=== PATIENT | female | born 1940 | race Caucasian/White ===

== ENCOUNTER → 2016-06-25 | Outpatient (CLI) | payer OTHER ==
[~2016-06-25] MED LIST: ALBINS/ INH; ALBU0.5N2 NEB; ALBUAER INH; AMPH15CA7 PO; AMPH30CA3 PO; APIX1TAB3 PO; ASPI81TA28 PO; ATOR-24 PO; BRIM0.1S OPB; BRIM0.2S18 OPB; CALC-20 PO; CHOL100010 PO; CHOL100027 PO; CLON1TAB3 PO; CYAN250T PO; DEXT30TA7 PO; DLCSR120 PO; DOXY100C2 PO; DSY/150 PO; DXY100 PO; ELQ25 PO; ESCI10TA17 PO; GABA-112 PO; GUAI1TAB55 PO; IPRASOL4 INH; LACTCAP3 PO; LAMO150T32 PO; LVQ750 PO; MAGN1CAP2 PO; MAGN200T3 PO; MAGN400T6 PO; MONT1TAB3 PO; MULT1TAB22 PO; NRN100 PO; OXYC-57 PO; PRAM1TAB47 PO; PRED10TA PO; PRLSR20 PO; SYMIN160 INH; TIOTCAP INH; TRAM-10 PO; TRAV0.00 OPB; TRAZ100T29 PO; VNTHFA/IN INH
== END | disposition home or self-care (01) ==
LOC: C.PATHSPEC 14:28
PROVIDERS: ATTEND Dermatology
DX: D22.5 Melanocytic nevi of trunk (principal)

== ENCOUNTER → 2016-07-09 | Outpatient (CLI) | payer OTHER | END | disposition home or self-care (01) | LOC: C.PATHSPEC 13:46 | PROVIDERS: ATTEND Dermatology | DX: D23.71 Other benign neoplasm of skin of right lower limb, including hip (principal) ==

== ENCOUNTER → 2016-08-26 | Outpatient (CLI) | payer OTHER ==
--- NOTE | 2016-08-26 16:03 | DIAGNOSTIC IMAGING REPORT ---
C-SPINE ROUTINE 4 OR 5 VIEWS CLINICAL HISTORY: Cervicalgia. COMPARISON STUDY: MRI of the cervical spine May 18, 2008. FINDINGS: This exam is compromised by artifact. Alignment is anatomic. No acute fracture is identified. Moderate multilevel degenerative disc disease is noted with severe multilevel facet arthrosis with possible fusion of the facet joints at several levels. Anterior osteophytosis is noted. IMPRESSION: 1. Technically compromised exam. 2. No fracture identified although sensitivity significantly diminished on this exam. 3. Moderate multilevel degenerative disc disease and severe multilevel facet arthrosis of the cervical spine. Electronically signed by: Bull Kim M.D. 08/26/2016 4:01 PM Dictated Date/Time: 08/26/2016 3:58 PM
[2016-08-26 17:03] LABS: MAGNESIUM 1.6 mg/dl (1.8-2.4)
== END | disposition home or self-care (01) ==
LOC: C.LAB1850 14:42
PROVIDERS: ATTEND Family Medicine
DX: M54.2 Cervicalgia (principal); E78.5 Hyperlipidemia, unspecified; E83.42 Hypomagnesemia

== ENCOUNTER 2016-08-28 04:33 | Inpatient (IN) | payer OTHER ==
[2016-08-28] VITALS (8 sets, daily range): BP systolic 93–143; BP diastolic 41–58; PULSE 73–86; TEMP 36.6–37.2; O2SAT 91–95; Ht 165.1 cm; Wt 78.4 kg
[~2016-08-28] VITALS: Ht 165.1 cm; Wt 78.4 kg
[~2016-08-28 04:33] MED LIST changes: -ALBINS/ INH; -APIX1TAB3 PO; -BRIM0.1S OPB; -BRIM0.2S18 OPB; -CHOL100027 PO; -DEXT30TA7 PO; -DSY/150 PO; -DXY100 PO; -GABA-112 PO; -IPRASOL4 INH; -LVQ750 PO; -MAGN1CAP2 PO; -MAGN200T3 PO; -NRN100 PO; -TRAV0.00 OPB; -VNTHFA/IN INH
[2016-08-28] MEDS ORDERED: LORAZEPAM 2 MG/ML 1 ML VIAL IV STA (04:41)
[2016-08-28] MEDS ORDERED: ONDANSETRON INJ 2 MG/ML 2 ML VIAL IV STA (04:41)
[2016-08-28] MEDS ORDERED: SODIUM CHLORIDE 0.9% 1000ML 1,000 ML IV STA (04:41)
[2016-08-28] MEDS ORDERED: ALBUT/IPRATROP 3MG/0.5MG NEB 3 ML VIAL INH STA (04:41)
[2016-08-28 05:01] LABS: VEN BLD GAS O2 SATURATION 90.6 %; VEN BLOOD GAS BASE EXCESS 5.5 mmol/L; VENOUS BLOOD GAS PCO2 38 mmHg (38.0-50.0); VENOUS BLOOD GAS PO2 63 mmHg
[2016-08-28 05:05] LABS: BASO % 0.1 %; BASO ABS # 0.02 K/uL (0-0.2); COMPLETE YES; EOS % 0.7 %; HEMATOCRIT 42.1 % (37-47); IG% 0.5 %; LYMPH % 21.8 %; LYMPH ABS # 3.21 K/uL (1.2-3.4); MEAN CELL VOLUME 86.3 fL (80-100); MEAN CORPUSCULAR HEMOGLOBIN 29.1 pg (25-34); MEAN CORPUSCULAR HGB CONC 33.7 g/dl (32-36); MEAN PLATELET VOLUME 9.4 fL (7.4-10.4); MONO % 8.6 %; NEUT % 68.3 %; PLATELET COUNT 281 K/uL (130-400); RED BLOOD COUNT 4.88 M/uL (4.2-5.4)
[2016-08-28] MEDS ORDERED: SODIUM CHLORIDE 0.9% 500ML 500 ML IV STA (05:08)
[2016-08-28] MEDS ORDERED: HYDROCODONE/HOMATROPINE SYRUP 5MG/1.5MG 5ML UDP PO STA (05:08)
[2016-08-28 05:24] LABS: ALT/SGPT 26 U/L (12-78); AST/SGOT 12 U/L (15-37); BLOOD UREA NITROGEN 15 mg/dl (7-18); BUN/CREATININE RATIO 25.5 (10-20); CALCIUM 9.8 mg/dl (8.5-10.1); CARBON DIOXIDE 33 mmol/L (21-32); CHLORIDE 105 mmol/L (98-107); GLUCOSE 111 mg/dl (70-99); POTASSIUM 2.9 mmol/L (3.5-5.1); SODIUM 146 mmol/L (136-145)
[2016-08-28] MEDS ORDERED: DOXYCYCLINE IV 100 MG in DEXTROSE 5% 100ML 100 ML IV STA (05:27)
[2016-08-28 05:29] LABS: ALKALINE PHOSPHATASE 99 U/L (45-117); CKMB/CK RATIO 8.7 (0-3.0)
[2016-08-28] MEDS ORDERED: AMPH15CA7 PO (05:43)
[2016-08-28] MEDS ORDERED: ALBINS/ INH (05:44)
[2016-08-28] MEDS ORDERED: BRIM0.1S OPB (05:45)
[2016-08-28] MEDS ORDERED: APIX1TAB3 PO (05:50)
[2016-08-28] MEDS ORDERED: GABA-112 PO (05:52)
[2016-08-28] MEDS ORDERED: NRN100 PO (05:52)
[2016-08-28] MEDS ORDERED: IPRASOL4 INH (05:53)
[2016-08-28] MEDS ORDERED: MAGN1CAP2 PO (05:56)
[2016-08-28] MEDS ORDERED: MAGN200T3 PO (05:56)
[2016-08-28] MEDS ORDERED: TRAV0.00 OPB (06:01)
[2016-08-28] MEDS ORDERED: DSY/150 PO (06:01)
--- NOTE | 2016-08-28 06:04 | EMERGENCY ROOM VISIT NOTE ---
History Report prepared by José: Martin Berman Under the Supervision of: Dr. Maico Izquierdo M.D. First contact with patient: 04:36 Chief Complaint: RESPIRATORY PROBLEMS Stated Complaint: BREATHING DIFFICULTY History of Present Illness The patient is a 75 year old female who presents to the Emergency Room by EMS with complaints of worsening shortness of breath beginning six days ago. She has a history of asthma and feels that her asthma is acting up. She was given three nebulizer treatments en route which improved her symptoms. The patient also complains of nausea and coughing. She denies any abdominal pain. Source of History: patient Onset: Six days ago Quality: other (shortness of breath) Timing: worsening Modifying Factors (Relieving): other (nebulizer treatments) Associated Symptoms: + cough, + nausea, No abdominal pain Review of Systems See HPI for pertinent positives & negatives. A total of 10 systems reviewed and were otherwise negative. Past Medical & Surgical Medical Problems: (1) ADD (2) Anxiety (3) Arthroplasty of knee (4) Asthma, Unspecified (5) Chronic venous insufficiency (6) COPD (7) COPD exacerbation (8) Depression (9) Diabetes (10) Elbow surgery (11) Hyperlipidemia (12) Hypothyroidism Nos (13) MRSA (14) Pneumonia (15) Restless legs (16) Rheumatoid arthritis (17) Small bowel obstruction Surgical Problems: (1) Appendectomy (2) Post-operative state Family History FHx: chronic respiratory condition Social History Smoking Status: Former Smoker Marital Status: Housing Status: lives alone Occupation Status: retired Current/Historical Medications Scheduled Amphetamine-Dextroamphetamine 15MG (Adderall Xr 15MG), 15 MG PO DAILY Amphetamine-Dextroamphetamine 30MG (Adderall Xr 30MG), 30 MG PO QAM Apixaban (Eliquis), 5 MG PO BID Aspirin (Aspirin Ec), 81 MG PO DAILY Atorvastatin (Lipitor), 40 MG PO QPM Brimonidine Tartrate (Alphagan P Oph), 1 DROP OPB Q12 Calcium Carbonate-Vitamin D (Calcium 600 + D), 1 TAB PO BID Clonazepam (Klonopin), 1 MG PO HS Cyanocobalamin (Vitamin B-12), 250 MCG PO DAILY Diltiazem HCl (Diltiazem HCl ER), 240 MG PO QAM Doxycycline Hyclate (Vibramycin), 100 MG PO BID Escitalopram (Lexapro), 10 MG PO DAILY Gabapentin (Gabapentin), 200 MG PO BID Gabapentin (Neurontin), 300 MG PO HS Lactobacillus (Acidophilus), 1 CAP PO DAILY Lamotrigine (Lamictal), 150 MG PO HS Magnesium (Magnesium), 200 MG PO Q2D Magnesium Oxide (Mg Supplement (Magnesium), 400 MG PO Q2D Montelukast Sodium (Singulair), 10 MG PO HS Multiple Vitamins W/ Minerals (One Daily For Women), 1 TAB PO DAILY Pramipexole Dihydrochloride (Mirapex), 0.5 MG PO HS Travoprost (Travatan Z), 1 DROP OPB DAILY Trazodone HCl (Trazodone HCl), 150 MG PO HS Trazodone Hcl (Trazodone), 100 MG PO HS Scheduled PRN Albuterol Sulf (Proventil 0.083% 2.5MG/3ML), 2.5 MG INH QID PRN for Wheezing Budesonide/Formoterol Fumarate (Symbicort 160/4.5 Inhaler ), 2 PUFFS INH BID PRN for SOB/Wheezing Ipratropium-Albuterol (Duoneb), 1 TREATMENT INH Q4H PRN for SOB/Wheezing Oxycodone/Acetaminophen 5MG/325MG (Percocet 5MG/325MG), 1 TAB PO BID PRN for Pain Tramadol (Ultram), 50 MG PO Q8H PRN for Pain Allergies Coded Allergies: Chocolate (Verified Allergy, Mild, RASH, 08/12/15) Azithromycin (Verified Allergy, Unknown, THROAT BURNED-LOST WT, 08/12/15) Fluticasone (Verified Allergy, Unknown, FROM ADVAIR, CHEST PAIN, 08/12/15) ALLERGY TO ADVAIR Penicillins (Verified Allergy, Unknown, UNKNOWN-HAS TOLERATED ROCEPHIN IN PAST, 08/12/15) PCN ALLERGY IDENTIFIED FROM ALLERGY TESTING Procaine (Verified Allergy, Unknown, ANAPHYLAXIS/MOUTH SWELLING/SOB, ) Salmeterol (Verified Allergy, Unknown, FROM ADVAIR, CHEST PAIN., 08/12/15) ALLERGY TO ADVAIR Moxifloxacin (Verified Adverse Reaction, Unknown, NAUSEA & VOMITING, ) NSAIDs (Verified Adverse Reaction, Unknown, AVOID DUE TO ULCER HX, 08/12/15 ) Zolpidem (Verified Adverse Reaction, Unknown, SLEEP WALKING, 08/12/15) Physical Exam Vital Signs Date Time Temp Pulse Resp B/P Pulse Ox O2 Delivery O2 Flow Rate FiO2 08/28/16 04:47 88 08/28/16 04:42 Room Air 08/28/16 04:41 Room Air 08/28/16 04:37 37.0 85 16 164/90 94 Room Air Physical Exam GENERAL: Patient is anxious appearing and in moderate distress. Periodic harsh cough noted. HEENT: No acute trauma, normocephalic atraumatic, mucous membranes moist, no nasal congestion, no scleral icterus. NECK: No stridor, no adenopathy, no meningismus, trachea is midline. LUNGS: Diffuse crackles and wheezing in all lung aguilar. HEART: Regular rate and rhythm. No murmurs, rubs, gallops appreciated. ABDOMEN: Soft, nontender, bowel sounds positive, no masses appreciated, no peritonitis. BACK: No midline tenderness, no CVA tenderness EXTREMITIES: Normal motion all extremities, no cyanosis, no edema. NEUROLOGIC: Alert and oriented, no acute motor or sensory deficits, no focal weakness, cranial nerves grossly intact. Fine tremor noted. SKIN: No rash, no jaundice, no diaphoresis. Medical Decision & Procedures ER Provider Diagnostic Interpretation: X ray results are stated below per my interpretation: Chest: 1 view: No infiltrate, no effusion, normal cardiac border. Laboratory Results 08/28/16 04:48 Red Blood Count 4.88, Mean Corpuscular Volume 86.3, Mean Corpuscular Hemoglobin 29.1, Mean Corpuscular Hemoglobin Concent 33.7, Mean Platelet Volume 9.4, Neutrophils (%) (Auto) 68.3, Lymphocytes (%) (Auto) 21.8, Monocytes (%) (Auto) 8.6, Eosinophils (%) (Auto) 0.7, Basophils (%) (Auto) 0.1, Neutrophils # (Auto) 10.03, Lymphocytes # (Auto) 3.21, Monocytes # (Auto) 1.26, Eosinophils # (Auto) 0.11, Basophils # (Auto) 0.02 08/28/16 04:48 Test 08/28/16 04:48 08/28/16 04:51 08/28/16 04:56 White Blood Count 14.70 K/uL (4.8-10.8) Red Blood Count 4.88 M/uL (4.2-5.4) Hemoglobin 14.2 g/dL (12.0-16.0) Hematocrit 42.1 % (37-47) Mean Corpuscular Volume 86.3 fL (80-100) Mean Corpuscular Hemoglobin 29.1 pg (25-34) Mean Corpuscular Hemoglobin Concent 33.7 g/dl (32-36) Platelet Count 281 K/uL (130-400) Mean Platelet Volume 9.4 fL (7.4-10.4) Neutrophils (%) (Auto) 68.3 % Lymphocytes (%) (Auto) 21.8 % Monocytes (%) (Auto) 8.6 % Eosinophils (%) (Auto) 0.7 % Basophils (%) (Auto) 0.1 % Neutrophils # (Auto) 10.03 K/uL (1.4-6.5) Lymphocytes # (Auto) 3.21 K/uL (1.2-3.4) Monocytes # (Auto) 1.26 K/uL (0.11-0.59) Eosinophils # (Auto) 0.11 K/uL (0-0.5) Basophils # (Auto) 0.02 K/uL (0-0.2) RDW Standard Deviation 49.1 fL (36.4-46.3) RDW Coefficient of Variation 15.5 % (11.5-14.5) Immature Granulocyte % (Auto) 0.5 % Immature Granulocyte # (Auto) 0.07 K/uL (0.00-0.02) Anion Gap 8.0 mmol/L (3-11) Est Creatinine Clear Calc Drug Dose 82.4 ml/min Estimated GFR () 102.6 Estimated GFR (Non- 88.5 BUN/Creatinine Ratio 25.5 (10-20) Calcium Level 9.8 mg/dl (8.5-10.1) Total Bilirubin 0.5 mg/dl (0.2-1) Direct Bilirubin 0.1 mg/dl (0-0.2) Aspartate Amino Transf (AST/SGOT) 12 U/L (15-37) Alanine Aminotransferase (ALT/SGPT) 26 U/L (12-78) Alkaline Phosphatase 99 U/L (45-117) Total Creatine Kinase 52 U/L (26-192) Creatine Kinase MB 4.5 ng/ml (0.5-3.6) Creatine Kinase MB Ratio 8.7 (0-3.0) Troponin I < 0.015 ng/ml (0-0.045) Pro-B-Type Natriuretic Peptide 574 pg/ml (0-1800) Total Protein 6.8 gm/dl (6.4-8.2) Albumin 3.7 gm/dl (3.4-5.0) Lipase 118 U/L (73-393) Venous Blood pH 7.50 (7.36-7.41) Venous Blood Partial Pressure CO2 38 mmHg (38.0-50.0) Venous Blood Partial Pressure O2 63 mmHg Venous Blood HCO3 29 mmol/L Venous Blood Oxygen Saturation 90.6 % Venous Blood Base Excess 5.5 mmol/L Bedside Lactic Acid Venous 2.10 mmol/L (0.90-1.70) Laboratory results as reviewed by me. Medications Administered Medications (Trade) Dose Ordered Sig/Cyndy Route Start Time Stop Time Status Last Admin Dose Admin Albuterol/ Ipratropium (Duoneb) 3 ml NOW STAT INH 08/28/16 04:41 08/28/16 04:43 DC 08/28/16 04:51 3 ML Lorazepam (Ativan Inj) 0.5 mg NOW STAT IV 08/28/16 04:41 08/28/16 04:43 DC 08/28/16 04:51 0.5 MG Ondansetron HCl 4 mg 4 mg NOW STAT IV 08/28/16 04:41 08/28/16 04:43 DC 08/28/16 04:51 4 MG Sodium Chloride (Nss 1000ml) 1,000 ml @ 75 mls/hr [id number] STAT IV 08/28/16 04:41 08/28/16 18:00 08/28/16 04:51 75 MLS/HR Hydrocodone Bit/ Homatropine Methylb 5 ml 5 ml NOW STAT PO 08/28/16 05:08 08/28/16 05:09 DC 08/28/16 05:12 5 ML Sodium Chloride 500 ml @ 999 mls/hr Q31M STAT IV 08/28/16 05:08 08/28/16 05:38 DC 08/28/16 05:12 999 MLS/HR Doxycycline Hyclate/Dextrose (Vibramycin IV/ D5 100ml) 110 ml @ 50 mls/hr NOW STAT IV 08/28/16 05:27 08/28/16 07:38 08/28/16 05:54 50 MLS/HR ECG Indication: SOB/dyspnea Rate (beats per minute): 93 Rhythm: normal sinus Findings: no acute ischemic change, no ectopy ED Course 0436: The patient was evaluated in room A10. A complete history and physical exam was performed. 0441: Ordered Sodium Chloride 1000 ml @ 75 mls/hr, Zofran Inj 4 mg IV, Ativan Inj 0.5 mg IV, DuoNeb 3 mL INH. 0508: Ordered Sodium Chloride 500 ml @ 999 mls/hr, Hycodan Syrup 5 mL PO. Medical Decision Differential: Infectious, Reactive Airway Disease, Pneumonia, Pneumothorax, COPD , CHF, ACS, Pulmonary Embolism, MSK, GI, Dissection, amongst other etiologies entertained. 75 yr old female on Prednisone and Clinda for COPD exacerbation over the previous last week. She is ill appearing and lungs are quite poor. Given further neb along with some ativan/zofran for nausea/anxiety. Mild lactic acidosis thus given fluids though she does not appear overtly septic. WBC mildly elevated consistent with steroid use. Symptoms consistent with her COPD rather than PE/dissection/ACS. She is stable but will need to come in to hospital given outpatient failure and severity of her symptoms. Impression Primary Impression: COPD exacerbation Additional Impressions: Failure of outpatient treatment Hypokalemia Scribe Attestation The scribe's documentation has been prepared under my direction and personally reviewed by me in its entirety. I confirm that the note above accurately reflects all work, treatment, procedures, and medical decision making performed by me. Departure Information Referrals Faiza Costa MD (PCP) Patient Instructions My [facility] Problem Qualifiers
[2016-08-28] MEDS ORDERED: CHOL100027 PO (06:05)
[2016-08-28] MEDS ORDERED: VNTHFA/IN INH (06:06)
[2016-08-28] MEDS ORDERED: ACETAMINOPHEN 325 MG TAB PO PRN (06:15)
[2016-08-28] MEDS ORDERED: NITROGLYCERIN 0.4 MG SL PER TAB CHARGE SL PRN (06:15)
[2016-08-28] MEDS ORDERED: POTASSIUM CHLORIDE 10 MEQ TABCR PO STA (06:23)
[2016-08-28] MEDS ORDERED: HYDROCODONE/HOMATROPINE SYRUP 5MG/1.5MG 5ML UDP PO PRN (06:30)
[2016-08-28] MEDS ORDERED: MoRPHine SULFATE 4 MG/ML 1 ML CARP\\VIAL IV PRN (06:30)
[2016-08-28] MEDS ORDERED: ONDANSETRON INJ 2 MG/ML 2 ML VIAL IV PRN (06:30)
[2016-08-28] MEDS ORDERED: MoRPHine SULFATE 2 MG/ML CARP IV PRN (06:30)
[2016-08-28] MEDS ORDERED: DiphenhydrAMINE HCL 50 MG/ML VIAL IV PRN (06:30)
[2016-08-28] MEDS: OXYCODONE/ACETAMINOPHEN 5-325 TAB PO PRN ×3 (06:32→21:26)
--- NOTE | 2016-08-28 07:02 | History and Physical ---
History & Physical Date & Time of Service: Aug 28, 2016 at 06:49 Chief Complaint: Breathing Difficulty Primary Care Physician: Faiza Costa MD History of Present Illness Source: patient The patient is a 75-year-old female who presents emergency department via EMS with complaint of worsening shortness of breath that initially began 6 days ago especially worsened overnight. She has a known history of asthma/COPD, and feels that her symptoms are related to a bronchitis flareup. She did start clindamycin 4 days ago with no overall improvement in symptoms, and she reports issues with significant nasal drainage going down the back of her throat and causing nausea, which is something unusual for her. She has had a number of sick exposures among her family members, who have had the flu and other respiratory illnesses. Past Medical/Surgical History Medical Problems: (1) ADD Status: Chronic (2) Anxiety Status: Chronic (3) Arthroplasty of knee Status: Resolved (4) Asthma, Unspecified Status: Chronic (5) Chronic venous insufficiency Status: Chronic (6) COPD Status: Chronic (7) Depression Status: Chronic (8) Diabetes Status: Chronic (9) Elbow surgery Status: Resolved (10) Hyperlipidemia Status: Chronic (11) Hypothyroidism Nos Status: Chronic (12) MRSA Status: Chronic (13) Pneumonia Status: Chronic (14) Restless legs Status: Chronic (15) Rheumatoid arthritis Status: Chronic (16) Small bowel obstruction Status: Resolved Surgical Problems: (1) Appendectomy Status: Resolved Family History FHx: chronic respiratory condition Social History Smoking Status: Former Smoker Smokeless Tobacco Use: No Alcohol Use: none Drug Use: none Marital Status: Housing status: lives with family Occupational Status: retired Immunizations History of Influenza Vaccine: Yes Influenza Vaccine Date: Apr 08, 2011 History of Tetanus Vaccine?: Yes Tetanus Immunization Date: Oct 31, 2003 History of Pneumococcal: Yes Pneumococcal Date: May 08, 2004 History of Hepatitis B Vaccine: Unknown Multi-Drug Resistant Organisms History of MDRO: Yes Type of MDRO: MRSA Allergies Coded Allergies: Chocolate (Verified Allergy, Mild, RASH, 08/12/15) Azithromycin (Verified Allergy, Unknown, THROAT BURNED-LOST WT, 08/12/15) Fluticasone (Verified Allergy, Unknown, FROM ADVAIR, CHEST PAIN, 08/12/15) ALLERGY TO ADVAIR Penicillins (Verified Allergy, Unknown, UNKNOWN-HAS TOLERATED ROCEPHIN IN PAST, 08/12/15) PCN ALLERGY IDENTIFIED FROM ALLERGY TESTING Procaine (Verified Allergy, Unknown, ANAPHYLAXIS/MOUTH SWELLING/SOB, ) Salmeterol (Verified Allergy, Unknown, FROM ADVAIR, CHEST PAIN., 08/12/15) ALLERGY TO ADVAIR Moxifloxacin (Verified Adverse Reaction, Unknown, NAUSEA & VOMITING, ) NSAIDs (Verified Adverse Reaction, Unknown, AVOID DUE TO ULCER HX, 08/12/15 ) Zolpidem (Verified Adverse Reaction, Unknown, SLEEP WALKING, 08/12/15) Home Medications Scheduled Amphetamine-Dextroamphetamine 15MG (Adderall Xr 15MG), 15 MG PO DAILY Amphetamine-Dextroamphetamine 30MG (Adderall Xr 30MG), 30 MG PO QAM Apixaban (Eliquis), 5 MG PO BID Aspirin (Aspirin Ec), 81 MG PO DAILY Atorvastatin (Lipitor), 40 MG PO QPM Brimonidine Tartrate (Alphagan P Oph), 1 DROP OPB Q12 Calcium Carbonate-Vitamin D (Calcium 600 + D), 1 TAB PO BID Cholecalciferol (Vitamin D 1000 Unit), 1,000 INTER.UNIT PO DAILY Clonazepam (Klonopin), 1 MG PO HS Cyanocobalamin (Vitamin B-12), 250 MCG PO DAILY Diltiazem HCl (Diltiazem HCl ER), 240 MG PO QAM Doxycycline Hyclate (Vibramycin), 100 MG PO BID Escitalopram (Lexapro), 10 MG PO DAILY Gabapentin (Gabapentin), 200 MG PO BID Gabapentin (Neurontin), 300 MG PO HS Lactobacillus (Acidophilus), 1 CAP PO DAILY Lamotrigine (Lamictal), 150 MG PO HS Magnesium (Magnesium), 200 MG PO Q2D Magnesium Oxide (Mg Supplement (Magnesium), 400 MG PO Q2D Montelukast Sodium (Singulair), 10 MG PO HS Multiple Vitamins W/ Minerals (One Daily For Women), 1 TAB PO DAILY Omeprazole (Prilosec), 20 MG PO BID Pramipexole Dihydrochloride (Mirapex), 0.5 MG PO HS Prednisone (Prednisone), MG PO UD Travoprost (Travatan Z), 1 DROP OPB DAILY Trazodone HCl (Trazodone HCl), 150 MG PO HS Scheduled PRN Albuterol Hfa (Ventolin Hfa), 1-2 PUFFS INH Q4-6HRS PRN for SOB/Wheezing Albuterol Sulf (Proventil 0.083% 2.5MG/3ML), 2.5 MG INH QID PRN for Wheezing Budesonide/Formoterol Fumarate (Symbicort 160/4.5 Inhaler ), 2 PUFFS INH BID PRN for SOB/Wheezing Ipratropium-Albuterol (Duoneb), 1 TREATMENT INH Q4H PRN for SOB/Wheezing Oxycodone/Acetaminophen 5MG/325MG (Percocet 5MG/325MG), 1 TAB PO BID PRN for Pain Review of Systems The patient denies palpitations, lower extremity swelling, vision change, hearing change, fevers, chills, sweats, weight change, vomiting, abdominal pain , pelvic pain, blood in urine or stool, dysuria, urinary frequency or urgency, lightheadedness, dizziness, headache, memory loss, rash, abnormal bruising or bleeding, imbalance, focal or generalized weakness, numbness or tingling in arms or legs, arthralgias or myalgias, back or neck pain, night sweats. The review of systems is otherwise negative other than for that already noted above, and at least 10 systems have been reviewed. Physical Exam Vital Signs Date Time Temp Pulse Resp B/P Pulse Ox O2 Delivery O2 Flow Rate FiO2 08/28/16 04:47 88 08/28/16 04:42 Room Air 08/28/16 04:41 Room Air 08/28/16 04:37 37.0 85 16 164/90 94 Room Air The patient is awake, well-developed and adequately nourished, alert and oriented 3, normocephalic and atraumatic, lying in bed and only in acute distress when she has severe paroxysmal coughing. HEENT--PERRL, EOMI, mucous membranes and oropharynx with thrush. Neck--supple, no JVD or bruits, thyroid normal, trachea midline, no adenopathy. Heart--normal S1 and S2, no extra beats, no murmurs, rubs or gallops. Lungs--coarse breath sounds bilaterally with scattered wheezes, no respiratory distress at rest, no accessory muscle use. Abdomen--normal bowel sounds and soft, nontender and nondistended, no hernias or masses, no organomegaly. Extremities--no cyanosis, clubbing or edema. There are good distal pulses b/l. Dermatologic--normal skin turgor, normal color, warm and dry, no abnormal lymph nodes, no rash. Neurologic--cranial nerves II through XII grossly intact, motor and sensory examination normal. Rheumatologic--normal range of motion, nontender, muscles and joints. Psychiatric--normal affect. Diagnostics Laboratory Results Results Past 24 Hours Test 08/28/16 04:48 08/28/16 04:51 08/28/16 04:56 08/28/16 06:45 Range/Units White Blood Count 14.70 4.8-10.8 K/uL Red Blood Count 4.88 4.2-5.4 M/uL Hemoglobin 14.2 12.0-16.0 g/dL Hematocrit 42.1 37-47 % Mean Corpuscular Volume 86.3 80-100 fL Mean Corpuscular Hemoglobin 29.1 25-34 pg Mean Corpuscular Hemoglobin Concent 33.7 32-36 g/dl Platelet Count 281 130-400 K/uL Mean Platelet Volume 9.4 7.4-10.4 fL Neutrophils (%) (Auto) 68.3 % Lymphocytes (%) (Auto) 21.8 % Monocytes (%) (Auto) 8.6 % Eosinophils (%) (Auto) 0.7 % Basophils (%) (Auto) 0.1 % Neutrophils # (Auto) 10.03 1.4-6.5 K/uL Lymphocytes # (Auto) 3.21 1.2-3.4 K/uL Monocytes # (Auto) 1.26 0.11-0.59 K/uL Eosinophils # (Auto) 0.11 0-0.5 K/uL Basophils # (Auto) 0.02 0-0.2 K/uL RDW Standard Deviation 49.1 36.4-46.3 fL RDW Coefficient of Variation 15.5 11.5-14.5 % Immature Granulocyte % (Auto) 0.5 % Immature Granulocyte # (Auto) 0.07 0.00-0.02 K/uL Sodium Level 146 136-145 mmol/L Potassium Level 2.9 3.5-5.1 mmol/L Chloride Level 105 98-107 mmol/L Carbon Dioxide Level 33 21-32 mmol/L Anion Gap 8.0 3-11 mmol/L Blood Urea Nitrogen 15 7-18 mg/dl Creatinine 0.60 0.60-1.20 mg/dl Est Creatinine Clear Calc Drug Dose 82.4 ml/min Estimated GFR () 102.6 Estimated GFR (Non- 88.5 BUN/Creatinine Ratio 25.5 10-20 Random Glucose 111 70-99 mg/dl Calcium Level 9.8 8.5-10.1 mg/dl Total Bilirubin 0.5 0.2-1 mg/dl Direct Bilirubin 0.1 0-0.2 mg/dl Aspartate Amino Transf (AST/SGOT) 12 15-37 U/L Alanine Aminotransferase (ALT/SGPT) 26 12-78 U/L Alkaline Phosphatase 99 45-117 U/L Total Creatine Kinase 52 26-192 U/L Creatine Kinase MB 4.5 0.5-3.6 ng/ml Creatine Kinase MB Ratio 8.7 0-3.0 Troponin I < 0.015 0-0.045 ng/ml Pro-B-Type Natriuretic Peptide 574 0-1800 pg/ml Total Protein 6.8 6.4-8.2 gm/dl Albumin 3.7 3.4-5.0 gm/dl Lipase 118 73-393 U/L Venous Blood pH 7.50 7.36-7.41 Venous Blood Partial Pressure CO2 38 38.0-50.0 mmHg Venous Blood Partial Pressure O2 63 mmHg Venous Blood HCO3 29 mmol/L Venous Blood Oxygen Saturation 90.6 % Venous Blood Base Excess 5.5 mmol/L Bedside Lactic Acid Venous 2.10 0.90-1.70 mmol/L Microbiology Results 08/28/16 Blood Culture, Received Pending 08/28/16 Blood Culture, Received Pending Impression Assessment and Plan Asthma/COPD exacerbation with acute bronchitis--the patient will be admitted to the telemetry unit for close respiratory/oxygen monitoring. We'll place her on Solu-Medrol 60 mg IV every 6 hours, doxycycline 100 mg IV every 12 hours, Xopenex with Atrovent nebulizer to use every 6 hours while awake and every 2 hours when necessary, Hycodan syrup 1-2 teaspoons by mouth every 6 hours when necessary cough, and nasal cannula 2 L of oxygen titrated to keep pulse ox greater than or equal to 92%. Continue inhaler 10 mg by mouth at bedtime. Increase lactobacillus to 4 capsules by mouth 4 times a day. Atrial fibrillation/hypertension/ hypokalemia--continue Eliquis 5 mg by mouth twice a day, enteric-coated aspirin 81 mg by mouth daily, diltiazem ER 240 mg by mouth every morning, mag oxide 40 mg by mouth daily. Potassium chloride 40 mEq by mouth now, repeat in 5 hours, and then placed on twice a day. Diabetes mellitus--has been diet-controlled. Place on Accu-Cheks before meals and at bedtime with NovoLog coverage. Follow closely while she is on IV steroids. Thrush--placed on Mycelex troches dissolve in mouth 5 times per day for 5 days. ADD--continue Adderall XR 30 mg by mouth every morning and 15 mg by mouth daily. Hypercholesterolemia--continue atorvastatin 40 mg by mouth every afternoon. Peripheral neuropathy--continue gabapentin 200 mg by mouth twice a day 300 mg by mouth at bedtime. Anxiety--continue clonazepam 1 mg by mouth at bedtime, Lexapro 10 mg by mouth daily, lamotrigine 150 mg by mouth at bedtime, trazodone 150 mg by mouth at bedtime. Restless leg syndrome--continue pramipexole 0.5 mg by mouth at bedtime. Glaucoma--continue Alphagan P ophthalmic solution and Travatan Z ophthalmic solution as per outpatient. Vitamin B12 deficiency--continue supplementation of 250 g by mouth daily. Level of Care Telemetry Advanced Directives Existing Advance Directive: No Existing Living Will: No Existing Power of Foreman Or Supervisor And Operator: No Resuscitation Status FULL RESUSCITATION VTE Prophylaxis VTE Risk Assessment Done? Y/N: Yes Risk Level: Moderate Given or contraindicated: Other Anticoagulation (Eliquis) Social Service Consult None Apply
[2016-08-28] MEDS ORDERED: GLUCOSE 40% GEL 15 GM TUBE PO PRN (07:15)
[2016-08-28] MEDS ORDERED: GLUCOSE 10 TABS/TUBE PO PRN (07:15)
[2016-08-28] MEDS ORDERED: GLUCAGON FOR INJ 1 MG VIAL SQ PRN (07:15)
[2016-08-28] MEDS ORDERED: DEXTROSE 50% 50 ML SYR IV PRN (07:15)
--- NOTE | 2016-08-28 07:51 | DIAGNOSTIC IMAGING REPORT ---
SINGLE VIEW CHEST CLINICAL HISTORY: Atypical chest pain. FINDINGS: An AP, portable, upright chest radiograph is compared to study dated 08/17/2015 and correlated with chest CT dated 08/06/2013. The examination is degraded by portable technique and patient rotation. The cardiomediastinal silhouette is unremarkable. There is atherosclerotic calcification of the thoracic aorta. A clip projects over the right lung base. Chronic interstitial thickening is similar to previous. There are bibasilar airspace opacities. The lungs are otherwise clear. No large pleural effusion or pneumothorax is seen. The skeletal structures are osteopenic. The bony thorax is grossly intact. Degenerative change is noted throughout the thoracic spine. IMPRESSION: There are bibasilar airspace opacities which likely represent atelectasis. Clinical correlation will be required. Electronically signed by: Sin Morales M.D. 08/28/2016 7:48 AM Dictated Date/Time: 08/28/2016 7:47 AM
[2016-08-28] MEDS ORDERED: [UNRECOGNIZED DRUG - REMARK] SCH (08:30)
[2016-08-28] MEDS ORDERED: LEVALBUTEROL/IPRATROPIUM NEB INH SCH (09:00)
[2016-08-28] MEDS: ASPIRIN 81 MG ECTAB PO SCH (10:04)
[2016-08-28] MEDS: GABAPENTIN 100 MG CAP PO SCH ×2 (10:05→13:07)
[2016-08-28] MEDS: APIXABAN 2.5 MG TAB PO SCH ×2 (10:05→21:11)
[2016-08-28] MEDS: LACTOBACILLUS ACIDOPHILUS (FLORANEX) TAB PO SCH ×3 (10:07→17:13)
[2016-08-28] MEDS: METHYLPREDNISOLONE IV 60 MG in SYRINGE 0 ML IV SCH ×3 (10:07→21:13)
[2016-08-28] MEDS: CEROVITE ADV FORMULA TAB PO SCH ×2 (10:08→21:11)
[2016-08-28] MEDS: CLOTRIMAZOLE 10 MG TROCHE MT SCH ×4 (10:08→21:12)
[2016-08-28] MEDS: CHOLECALCIFEROL 1000 INTER.UNIT TAB PO SCH (10:08)
[2016-08-28] MEDS: ESCITALOPRAM OXALATE 10 MG TAB PO SCH (10:08)
[2016-08-28] MEDS: CALCIUM 600MG + VIT D 400 IU TAB PO SCH ×2 (10:08→21:14)
[2016-08-28] MEDS: MAGNESIUM OXIDE 400 MG TAB PO SCH (10:09)
[2016-08-28] MEDS: CYANOCOBALAMIN 500 MCG TAB (VIT B-12) PO SCH (10:09)
[2016-08-28] MEDS: DILTIAZEM HCL 120 MG ER CAP PO SCH (10:10)
[2016-08-28] MEDS: PANTOprazole SOD 40 MG TAB PO SCH ×2 (10:10→21:11)
[2016-08-28] MEDS: BRIMONIDINE TARTRATE-P 0.15% 5 ML BTL OPB SCH ×2 (10:10→21:13)
[2016-08-28] MEDS: TRAVOPROST Z 0.004% OPH SOLN 2.5 ML BTL OPB SCH (10:11)
[2016-08-28] MEDS ORDERED: POTASSIUM CHLORIDE 20 MEQ TABCR PO ONE (11:00)
[2016-08-28] MEDS: INSULIN ASPART 100 UNITS/ML 3 ML PEN SC SCH ×3 (11:34→21:21)
[2016-08-28] MEDS: IPRATROPIUM BROMIDE NEB SOLN 0.02% 2.5 ML VIAL INH SCH ×3 (13:06→19:59)
[2016-08-28] MEDS: LEVALBUTEROL 1.25MG/0.5ML NEB INH SCH ×3 (13:06→19:59)
[2016-08-28] MEDS: DOXYCYCLINE IV 100 MG in DEXTROSE 5% 100ML 100 ML IV SCH (17:13)
[2016-08-28] MEDS: POTASSIUM CHLORIDE 20 MEQ TABCR PO SCH ×2 (17:13→21:10)
[2016-08-28] MEDS: GABAPENTIN 300 MG CAP PO SCH (21:11)
[2016-08-28] MEDS: PRAMIPEXOLE DIHYDROCHLORIDE 0.5 MG TAB PO SCH (21:11)
[2016-08-28] MEDS: MONTELUKAST SOD 10 MG TAB PO SCH (21:11)
[2016-08-28] MEDS: ATORVASTATIN 40 MG TAB PO SCH (21:11)
[2016-08-28] MEDS: TRAZODONE HCL 100 MG TAB PO SCH (21:12)
[2016-08-28] MEDS: CLONAZEPAM 1 MG TAB PO SCH (21:13)
[2016-08-29] VITALS (11 sets, daily range): BP systolic 123–130; BP diastolic 55–75; PULSE 63–92; TEMP 36.7–37.2; O2SAT 90–95
[2016-08-29] MEDS: CLOTRIMAZOLE 10 MG TROCHE MT SCH ×6 (00:28→22:38)
[2016-08-29] MEDS: IPRATROPIUM BROMIDE NEB SOLN 0.02% 2.5 ML VIAL INH SCH ×4 (01:52→19:24)
[2016-08-29] MEDS: LEVALBUTEROL 1.25MG/0.5ML NEB INH SCH ×4 (01:52→19:24)
[2016-08-29] MEDS: METHYLPREDNISOLONE IV 60 MG in SYRINGE 0 ML IV SCH ×4 (02:03→22:35)
[2016-08-29 06:10] LABS: BASO ABS # 0.01 K/uL (0-0.2); COMPLETE YES; HEMATOCRIT 36.2 % (37-47); IG% 0.5 %; LYMPH % 8.2 %; LYMPH ABS # 1.71 K/uL (1.2-3.4); MEAN CELL VOLUME 88.5 fL (80-100); MEAN CORPUSCULAR HEMOGLOBIN 29.3 pg (25-34); MEAN CORPUSCULAR HGB CONC 33.1 g/dl (32-36); MEAN PLATELET VOLUME 9.4 fL (7.4-10.4); MONO % 3.2 %; NEUT % 88.1 %; PLATELET COUNT 210 K/uL (130-400); RED BLOOD COUNT 4.09 M/uL (4.2-5.4); WHITE BLOOD COUNT 20.92 K/uL (4.8-10.8)
[2016-08-29] MEDS: DOXYCYCLINE IV 100 MG in DEXTROSE 5% 100ML 100 ML IV SCH (06:25)
[2016-08-29] MEDS: INSULIN ASPART 100 UNITS/ML 3 ML PEN SC SCH ×4 (06:45→21:25)
[2016-08-29 07:53] LABS: BUN/CREATININE RATIO 40.5 (10-20); CALCIUM 9.7 mg/dl (8.5-10.1); CREATININE 0.71 mg/dl (0.60-1.20); POTASSIUM 4.8 mmol/L (3.5-5.1)
[2016-08-29] MEDS ORDERED: AMPHETAMINE-DEXTROAMPHETAMINE 30 MG CAP PO SCH (08:00)
[2016-08-29] MEDS: AMPHETAMINE-DEXTROAMPHETAMINE 30 MG CAP PO SCH ×2 (08:00→08:17)
[2016-08-29] MEDS: TRAVOPROST Z 0.004% OPH SOLN 2.5 ML BTL OPB SCH (08:02)
[2016-08-29] MEDS: GABAPENTIN 100 MG CAP PO SCH ×2 (08:02→12:19)
[2016-08-29] MEDS: BRIMONIDINE TARTRATE-P 0.15% 5 ML BTL OPB SCH ×2 (08:02→21:18)
[2016-08-29] MEDS: MAGNESIUM OXIDE 400 MG TAB PO SCH (08:03)
[2016-08-29] MEDS: PANTOprazole SOD 40 MG TAB PO SCH ×2 (08:03→21:17)
[2016-08-29] MEDS: APIXABAN 2.5 MG TAB PO SCH ×2 (08:03→21:15)
[2016-08-29] MEDS: ASPIRIN 81 MG ECTAB PO SCH (08:03)
[2016-08-29] MEDS: DILTIAZEM HCL 120 MG ER CAP PO SCH (08:04)
[2016-08-29] MEDS: POTASSIUM CHLORIDE 20 MEQ TABCR PO SCH ×2 (08:04→21:16)
[2016-08-29] MEDS: CHOLECALCIFEROL 1000 INTER.UNIT TAB PO SCH (08:04)
[2016-08-29] MEDS: CALCIUM 600MG + VIT D 400 IU TAB PO SCH ×2 (08:05→21:14)
[2016-08-29] MEDS: LACTOBACILLUS ACIDOPHILUS (FLORANEX) TAB PO SCH ×3 (08:05→17:33)
[2016-08-29] MEDS: CYANOCOBALAMIN 500 MCG TAB (VIT B-12) PO SCH (08:05)
[2016-08-29] MEDS: ESCITALOPRAM OXALATE 10 MG TAB PO SCH (08:05)
[2016-08-29] MEDS: OXYCODONE/ACETAMINOPHEN 5-325 TAB PO PRN (08:18)
--- NOTE | 2016-08-29 08:42 | Clinical Documentation Query ---
CLINICAL DOCUMENTATION QUERY 75 year old female who presents to the Emergency Room by EMS with complaints of worsening shortness of breath. Patient is noted to have a copious post nasal drip and note to have acute distress with severe paroxysmal coughing. In your clinical opinion is this patient being managed for: ( ) Aspiration Bronchitis in setting of copious post nasal drip causing severe cough and respiratory distress. ( ) Other explanation of clinical findings (Please Explain) ( ) Unable to determine (Please Define) ( ) Need to Discuss ( ) Not Agree The medical record reflects the following clinical findings, treatment, and risk factors. Clinical Indicators: As above. CXR shows bibasilar airspace opacities. WBC 14.70 and elevated serum Lactic acid 2.80. Treatment: IV Doxycycline, IV Solumedrol, Duonebs, Hycodan syrup, Risk Factors: Age, post nasal drip, COPD, and hx of pneumonia. Please clarify and document your clinical opinion in the progress notes and discharge summary. Terms such as "probable", "suspected", "likely", "questionable", "possible", or "still to be ruled out" are acceptable. IF IN AGREEMENT, YOU MUST DOCUMENT ABOVE DIAGNOSTIC STATEMENT IN DAILY PROGRESS NOTES AND DISCHARGE SUMMARY. This document is not part of the patient's record. Thank You, Benjamin Young, ROBERT [phone]
[2016-08-29] MEDS ORDERED: NURSING VERBAL MED ORDER ONE (13:15)
[2016-08-29] MEDS ORDERED: OXYCODONE/ACETAMINOPHEN 5-325 TAB PO PRN (13:30)
[2016-08-29] MEDS ORDERED: DEXTROAMPHETAMINE PO SCH (14:00)
[2016-08-29] MEDS ORDERED: AMPHETAMINE PO SCH (14:00)
[2016-08-29] MEDS: AMPHETAMINE PO SCH (14:08)
[2016-08-29] MEDS: DEXTROAMPHETAMINE PO SCH (14:08)
--- NOTE | 2016-08-29 15:21 | Hospitalist Progress Note ---
Hospitalist Progress Note Date of Service Aug 29, 2016. Subjective Pt evaluation today including: conversation w/ patient Patient had no acute issues overnight States her SOB is greatly improved from day prior Constitutional: No fever Eyes: No worsening of vision ENT: No hearing loss Respiratory: No cough Cardiovascular: No chest pain, No orthopnea Abdomen: No nausea, No pain, No vomiting Musculoskeletal: No joint pain Female : No dysuria Neurologic: No memory loss Psychiatric: No depression symptoms Objective Vital Signs Date Time Temp Pulse Resp B/P Pulse Ox O2 Delivery O2 Flow Rate FiO2 08/29/16 14:29 81 16 93 Room Air 08/29/16 11:30 Room Air 08/29/16 11:00 37.0 89 24 123/67 91 Room Air 08/29/16 10:55 36.7 92 18 94 08/29/16 08:23 36.7 92 18 125/55 94 Room Air 08/29/16 08:00 Room Air 08/29/16 07:20 73 16 91 Room Air 08/29/16 04:00 91 Room Air 08/29/16 04:00 36.7 63 22 125/56 91 Room Air 08/29/16 01:52 69 16 90 Room Air 08/28/16 23:59 91 Room Air 08/28/16 23:59 36.6 73 26 101/41 91 Room Air 08/28/16 20:03 78 18 92 Room Air 08/28/16 20:00 Room Air 08/28/16 16:00 Room Air 08/28/16 15:48 37.1 74 20 93/45 91 Room Air Physical Exam General Appearance: WD/WN, no apparent distress Eyes: normal inspection ENT: normal ENT inspection Neck: supple Respiratory/Chest: chest non-tender, + wheezing Cardiovascular: regular rate, rhythm, no edema Abdomen: normal bowel sounds, non tender, soft Extremities: normal range of motion, non-tender 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, no motor/sensory deficits, alert, oriented x 3 Skin: normal color, warm/dry, no rash Lymphatic: no adenopathy Laboratory Results Last 24 Hours Test 08/28/16 16:00 08/28/16 20:07 08/29/16 05:45 08/29/16 06:40 Bedside Glucose 147 mg/dl 213 mg/dl 144 mg/dl White Blood Count 20.92 K/uL Red Blood Count 4.09 M/uL Hemoglobin 12.0 g/dL Hematocrit 36.2 % Mean Corpuscular Volume 88.5 fL Mean Corpuscular Hemoglobin 29.3 pg Mean Corpuscular Hemoglobin Concent 33.1 g/dl Platelet Count 210 K/uL Mean Platelet Volume 9.4 fL Neutrophils (%) (Auto) 88.1 % Lymphocytes (%) (Auto) 8.2 % Monocytes (%) (Auto) 3.2 % Eosinophils (%) (Auto) 0.0 % Basophils (%) (Auto) 0.0 % Neutrophils # (Auto) 18.44 K/uL Lymphocytes # (Auto) 1.71 K/uL Monocytes # (Auto) 0.66 K/uL Eosinophils # (Auto) 0.00 K/uL Basophils # (Auto) 0.01 K/uL RDW Standard Deviation 51.7 fL RDW Coefficient of Variation 16.0 % Immature Granulocyte % (Auto) 0.5 % Immature Granulocyte # (Auto) 0.10 K/uL Sodium Level 146 mmol/L Potassium Level 4.8 mmol/L Chloride Level 109 mmol/L Carbon Dioxide Level 30 mmol/L Anion Gap 7.0 mmol/L Blood Urea Nitrogen 29 mg/dl Creatinine 0.71 mg/dl Est Creatinine Clear Calc Drug Dose 68.5 ml/min Estimated GFR () 95.9 Estimated GFR (Non- 82.7 BUN/Creatinine Ratio 40.5 Random Glucose 152 mg/dl Calcium Level 9.7 mg/dl Magnesium Level 2.0 mg/dl Test 08/29/16 11:28 Bedside Glucose 118 mg/dl Assessment and Plan Asthma/COPD exacerbation with acute bronchitis - continue solumedrol /switch to q 8 hours -continue atrovent and xopinex - switch doxycycline to azithromycin day #2 Atrial fibrillation -continue Eliquis 5 mg by mouth twice a day - continue metoprolol HTN - continue diltiazem Diabetes mellitus -continue Accu-Cheks before meals and at bedtime with NovoLog coverage. Thrush -Mycelex troches dissolve in mouth 5 times per day day #1/ ADD -continue Adderall XR 30 mg by mouth every morning and 15 mg by mouth daily. Hypercholesterolemia -continue atorvastatin 40 mg by mouth every afternoon. Peripheral neuropathy -continue gabapentin 200 mg by mouth twice a day 300 mg by mouth at bedtime. Anxiety -continue clonazepam 1 mg by mouth at bedtime, Lexapro 10 mg by mouth daily, lamotrigine 150 mg by mouth at bedtime, trazodone 150 mg by mouth at bedtime. Restless leg syndrome -continue pramipexole 0.5 mg by mouth at bedtime.
[2016-08-29] MEDS ORDERED: LEVOFLOXACIN 750 MG TAB PO SCH (16:00)
[2016-08-29] MEDS: TRAZODONE HCL 100 MG TAB PO SCH (21:18)
[2016-08-29] MEDS: ATORVASTATIN 40 MG TAB PO SCH (21:20)
[2016-08-29] MEDS: PRAMIPEXOLE DIHYDROCHLORIDE 0.5 MG TAB PO SCH (21:20)
[2016-08-29] MEDS: GABAPENTIN 300 MG CAP PO SCH (21:21)
[2016-08-29] MEDS: MONTELUKAST SOD 10 MG TAB PO SCH (21:21)
[2016-08-29] MEDS: CLONAZEPAM 1 MG TAB PO SCH (21:28)
[2016-08-30] VITALS (10 sets, daily range): BP systolic 106–156; BP diastolic 52–81; PULSE 72–95; TEMP 36.5–37; O2SAT 90–96
[2016-08-30] MEDS: IPRATROPIUM BROMIDE NEB SOLN 0.02% 2.5 ML VIAL INH SCH ×4 (01:48→19:10)
[2016-08-30] MEDS: LEVALBUTEROL 1.25MG/0.5ML NEB INH SCH ×4 (01:48→19:10)
[2016-08-30] MEDS: METHYLPREDNISOLONE IV 60 MG in SYRINGE 0 ML IV SCH ×3 (05:40→22:08)
[2016-08-30 07:18] LABS: HEMATOCRIT 37.3 % (37-47); MEAN CELL VOLUME 89.7 fL (80-100); MEAN CORPUSCULAR HEMOGLOBIN 29.1 pg (25-34); MEAN CORPUSCULAR HGB CONC 32.4 g/dl (32-36); MEAN PLATELET VOLUME 9.4 fL (7.4-10.4); PLATELET COUNT 230 K/uL (130-400); RED BLOOD COUNT 4.16 M/uL (4.2-5.4); WHITE BLOOD COUNT 22.56 K/uL (4.8-10.8)
[2016-08-30 07:39] LABS: COMPLETE YES; LYMPH ABS # 1.38 K/uL (1.2-3.4); LYMPHOCYTE % 6.1 %; MYELOCYTE % 0.9 %; NEUTROPHILS % 92.1 %
[2016-08-30 07:45] LABS: BUN/CREATININE RATIO 33.8 (10-20); CALCIUM 9.7 mg/dl (8.5-10.1); CREATININE 0.81 mg/dl (0.60-1.20); MAGNESIUM 1.9 mg/dl (1.8-2.4); POTASSIUM 4.7 mmol/L (3.5-5.1)
[2016-08-30] MEDS: AMPHETAMINE-DEXTROAMPHETAMINE 30 MG CAP PO SCH ×2 (08:00→09:22)
[2016-08-30] MEDS ORDERED: NURSING VERBAL MED ORDER ONE ×3 (08:30→13:45)
[2016-08-30] MEDS: INSULIN ASPART 100 UNITS/ML 3 ML PEN SC SCH ×4 (09:15→22:33)
[2016-08-30] MEDS: CLOTRIMAZOLE 10 MG TROCHE MT SCH ×5 (09:18→22:09)
[2016-08-30] MEDS: TRAVOPROST Z 0.004% OPH SOLN 2.5 ML BTL OPB SCH (09:18)
[2016-08-30] MEDS: BRIMONIDINE TARTRATE-P 0.15% 5 ML BTL OPB SCH ×2 (09:19→22:08)
[2016-08-30] MEDS: CEROVITE ADV FORMULA TAB PO SCH (09:19)
[2016-08-30] MEDS: POTASSIUM CHLORIDE 20 MEQ TABCR PO SCH ×2 (09:20→19:34)
[2016-08-30] MEDS: LACTOBACILLUS ACIDOPHILUS (FLORANEX) TAB PO SCH ×3 (09:20→17:41)
[2016-08-30] MEDS: ASPIRIN 81 MG ECTAB PO SCH (09:21)
[2016-08-30] MEDS: APIXABAN 2.5 MG TAB PO SCH ×2 (09:21→19:34)
[2016-08-30] MEDS: CALCIUM 600MG + VIT D 400 IU TAB PO SCH ×2 (09:22→19:31)
[2016-08-30] MEDS: DILTIAZEM HCL 120 MG ER CAP PO SCH (09:22)
[2016-08-30] MEDS: PANTOprazole SOD 40 MG TAB PO SCH ×2 (09:23→19:33)
[2016-08-30] MEDS: MAGNESIUM OXIDE 400 MG TAB PO SCH (09:23)
[2016-08-30] MEDS: CYANOCOBALAMIN 500 MCG TAB (VIT B-12) PO SCH (09:24)
[2016-08-30] MEDS: CHOLECALCIFEROL 1000 INTER.UNIT TAB PO SCH (09:24)
[2016-08-30] MEDS: ESCITALOPRAM OXALATE 10 MG TAB PO SCH (09:25)
[2016-08-30] MEDS: GABAPENTIN 100 MG CAP PO SCH ×2 (09:25→11:40)
[2016-08-30] MEDS ORDERED: LEVAQUIN 750MG / 150ML D5W IV ONE (09:30)
[2016-08-30] MEDS: LEVOFLOXACIN / D5W 750 MG in PREMIXED IN D5W 150 ML IV SCH (11:38)
[2016-08-30] MEDS: AMPHETAMINE PO SCH (13:47)
[2016-08-30] MEDS: DEXTROAMPHETAMINE PO SCH (13:47)
[2016-08-30] MEDS: HYDROCODONE/HOMATROPINE SYRUP 5MG/1.5MG 5ML UDP PO PRN (13:48)
--- NOTE | 2016-08-30 14:43 | Hospitalist Progress Note ---
Hospitalist Progress Note Date of Service Aug 30, 2016. Subjective Pt evaluation today including: conversation w/ patient Patient had no acute issues overnight Patient states she is more congested today and c/o of gernal malaise States SOB is better however Patient denies any chest pain, nausea or vomiting Constitutional: No fever Eyes: No worsening of vision ENT: + nasal symptoms, No hearing loss Respiratory: + shortness of breath, No cough Cardiovascular: No chest pain Abdomen: No constipation, No pain, No vomiting Musculoskeletal: No joint pain Female : No dysuria Neurologic: No memory loss Psychiatric: No depression symptoms Endo: No fatigue Objective Vital Signs Date Time Temp Pulse Resp B/P Pulse Ox O2 Delivery O2 Flow Rate FiO2 08/30/16 11:21 37.0 83 16 106/63 90 Room Air 08/30/16 09:07 36.5 95 18 136/72 93 08/30/16 07:50 Room Air 08/30/16 07:50 85 16 93 Room Air 08/30/16 04:32 36.6 84 18 112/52 92 Room Air 08/30/16 01:48 74 16 93 Room Air 08/30/16 00:00 Room Air 08/29/16 23:58 36.8 79 20 130/75 95 Room Air 08/29/16 19:47 37.2 80 18 130/67 93 Room Air 08/29/16 19:24 80 16 93 Room Air 08/29/16 16:00 Room Air 08/29/16 15:40 37.2 75 20 126/66 91 Room Air Physical Exam General Appearance: WD/WN, no apparent distress Eyes: normal inspection ENT: normal ENT inspection Neck: supple Respiratory/Chest: chest non-tender, + crackles, + rales, + rhonchi Cardiovascular: regular rate, rhythm, no edema Abdomen: normal bowel sounds, non tender, soft Extremities: normal range of motion, non-tender 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, no motor/sensory deficits, alert, oriented x 3 Laboratory Results Last 24 Hours Test 08/29/16 16:45 08/29/16 20:00 08/30/16 06:47 08/30/16 08:03 Bedside Glucose 195 mg/dl 128 mg/dl 130 mg/dl White Blood Count 22.56 K/uL Red Blood Count 4.16 M/uL Hemoglobin 12.1 g/dL Hematocrit 37.3 % Mean Corpuscular Volume 89.7 fL Mean Corpuscular Hemoglobin 29.1 pg Mean Corpuscular Hemoglobin Concent 32.4 g/dl Platelet Count 230 K/uL Mean Platelet Volume 9.4 fL RDW Standard Deviation 53.5 fL RDW Coefficient of Variation 16.4 % Neutrophils % (Manual) 92.1 % Lymphocytes % (Manual) 6.1 % Monocytes % (Manual) 0.9 % Myelocytes % 0.9 % Neutrophils # (Manual) 20.78 K/uL Total Absolute Neutrophils 20.78 K/uL Lymphocytes # (Manual) 1.38 K/uL Total Absolute Lymphocytes 1.38 K/uL Monocytes # (Manual) 0.20 K/uL Myelocytes # 0.20 K/uL Red Blood Cell Morphology Unremarkable Sodium Level 141 mmol/L Potassium Level 4.7 mmol/L Chloride Level 105 mmol/L Carbon Dioxide Level 30 mmol/L Anion Gap 6.0 mmol/L Blood Urea Nitrogen 27 mg/dl Creatinine 0.81 mg/dl Est Creatinine Clear Calc Drug Dose 59.1 ml/min Estimated GFR () 81.2 Estimated GFR (Non- 70.1 BUN/Creatinine Ratio 33.8 Random Glucose 148 mg/dl Calcium Level 9.7 mg/dl Magnesium Level 1.9 mg/dl Test 08/30/16 11:49 Bedside Glucose 129 mg/dl Assessment and Plan Asthma/COPD exacerbation with acute bronchitis - continue solumedrol continue to q 8 hours -continue atrovent and xopinex - continue azithromycin day #3 - start levaquin day #1 - start Robitussin Atrial fibrillation -continue Eliquis 5 mg by mouth twice a day - continue metoprolol HTN - continue diltiazem Diabetes mellitus -continue Accu-Cheks before meals and at bedtime with NovoLog coverage. Thrush -Mycelex troches dissolve in mouth 5 times per day day #05/23 ADD -continue Adderall XR 30 mg by mouth every morning and 15 mg by mouth daily. Hypercholesterolemia -continue atorvastatin 40 mg by mouth every afternoon. Peripheral neuropathy -continue gabapentin 200 mg by mouth twice a day 300 mg by mouth at bedtime. Anxiety -continue clonazepam 1 mg by mouth at bedtime, Lexapro 10 mg by mouth daily, lamotrigine 150 mg by mouth at bedtime, trazodone 150 mg by mouth at bedtime. Restless leg syndrome -continue pramipexole 0.5 mg by mouth at bedtime.
[2016-08-30] MEDS: OXYCODONE/ACETAMINOPHEN 5-325 TAB PO PRN (17:50)
[2016-08-30] MEDS: CLONAZEPAM 1 MG TAB PO SCH (19:30)
[2016-08-30] MEDS: ATORVASTATIN 40 MG TAB PO SCH (19:31)
[2016-08-30] MEDS: PRAMIPEXOLE DIHYDROCHLORIDE 0.5 MG TAB PO SCH (19:31)
[2016-08-30] MEDS: TRAZODONE HCL 100 MG TAB PO SCH (19:32)
[2016-08-30] MEDS: MONTELUKAST SOD 10 MG TAB PO SCH (19:32)
[2016-08-30] MEDS: GABAPENTIN 300 MG CAP PO SCH (19:36)
[2016-08-31] VITALS (10 sets, daily range): BP systolic 126–162; BP diastolic 53–75; PULSE 76–128; TEMP 36.6–37; O2SAT 91–95
[2016-08-31] MEDS: LEVALBUTEROL 1.25MG/0.5ML NEB INH SCH ×4 (02:33→19:05)
[2016-08-31] MEDS: IPRATROPIUM BROMIDE NEB SOLN 0.02% 2.5 ML VIAL INH SCH ×4 (02:33→19:05)
[2016-08-31] MEDS: METHYLPREDNISOLONE IV 60 MG in SYRINGE 0 ML IV SCH ×3 (05:57→19:00)
[2016-08-31] MEDS: CLOTRIMAZOLE 10 MG TROCHE MT SCH ×5 (05:58→22:41)
[2016-08-31 06:16] LABS: BASO % 0.1 %; BASO ABS # 0.01 K/uL (0-0.2); COMPLETE YES; HEMATOCRIT 37.8 % (37-47); IG% 1.2 %; LYMPH % 7.3 %; MEAN CELL VOLUME 89.6 fL (80-100); MEAN CORPUSCULAR HEMOGLOBIN 28.9 pg (25-34); MEAN CORPUSCULAR HGB CONC 32.3 g/dl (32-36); MEAN PLATELET VOLUME 9.9 fL (7.4-10.4); MONO % 4.2 %; NEUT % 87.2 %; PLATELET COUNT 215 K/uL (130-400); RED BLOOD COUNT 4.22 M/uL (4.2-5.4); WHITE BLOOD COUNT 19.12 K/uL (4.8-10.8)
[2016-08-31 06:35] LABS: BUN/CREATININE RATIO 38.2 (10-20); CALCIUM 9.2 mg/dl (8.5-10.1); CREATININE 0.71 mg/dl (0.60-1.20); MAGNESIUM 1.9 mg/dl (1.8-2.4); POTASSIUM 3.9 mmol/L (3.5-5.1)
[2016-08-31] MEDS: AMPHETAMINE-DEXTROAMPHETAMINE 30 MG CAP PO SCH ×2 (07:24→09:36)
[2016-08-31] MEDS: INSULIN ASPART 100 UNITS/ML 3 ML PEN SC SCH ×4 (09:33→21:10)
[2016-08-31] MEDS: HYDROCODONE/HOMATROPINE SYRUP 5MG/1.5MG 5ML UDP PO PRN ×2 (09:34→14:47)
[2016-08-31] MEDS: TRAVOPROST Z 0.004% OPH SOLN 2.5 ML BTL OPB SCH (09:35)
[2016-08-31] MEDS: BRIMONIDINE TARTRATE-P 0.15% 5 ML BTL OPB SCH ×2 (09:36→21:07)
[2016-08-31] MEDS: CALCIUM 600MG + VIT D 400 IU TAB PO SCH ×2 (09:38→21:05)
[2016-08-31] MEDS: DILTIAZEM HCL 120 MG ER CAP PO SCH (09:38)
[2016-08-31] MEDS: ASPIRIN 81 MG ECTAB PO SCH (09:39)
[2016-08-31] MEDS: APIXABAN 2.5 MG TAB PO SCH ×2 (09:39→21:05)
[2016-08-31] MEDS: LACTOBACILLUS ACIDOPHILUS (FLORANEX) TAB PO SCH ×3 (09:40→18:04)
[2016-08-31] MEDS: POTASSIUM CHLORIDE 20 MEQ TABCR PO SCH ×2 (09:40→21:06)
[2016-08-31] MEDS: MAGNESIUM OXIDE 400 MG TAB PO SCH (09:41)
[2016-08-31] MEDS: ESCITALOPRAM OXALATE 10 MG TAB PO SCH (09:41)
[2016-08-31] MEDS: CEROVITE ADV FORMULA TAB PO SCH (09:41)
[2016-08-31] MEDS: PANTOprazole SOD 40 MG TAB PO SCH ×2 (09:42→21:06)
[2016-08-31] MEDS: CYANOCOBALAMIN 500 MCG TAB (VIT B-12) PO SCH (09:42)
[2016-08-31] MEDS: CHOLECALCIFEROL 1000 INTER.UNIT TAB PO SCH (09:42)
[2016-08-31] MEDS: GABAPENTIN 100 MG CAP PO SCH ×2 (09:43→12:53)
[2016-08-31] MEDS: OXYCODONE/ACETAMINOPHEN 5-325 TAB PO PRN (09:47)
[2016-08-31] MEDS: LEVOFLOXACIN / D5W 750 MG in PREMIXED IN D5W 150 ML IV SCH (11:35)
--- NOTE | 2016-08-31 13:41 | Hospitalist Progress Note ---
Hospitalist Progress Note Date of Service Aug 31, 2016. Subjective Pt evaluation today including: conversation w/ patient, conversation w/ family Voiding: no voiding problems Constitutional: No fever Eyes: No worsening of vision ENT: No hearing loss Respiratory: No cough Cardiovascular: No chest pain Abdomen: No pain Musculoskeletal: No joint pain Female : No dysuria Neurologic: No memory loss Psychiatric: No depression symptoms Heme: No abnormal bleeding/bruising Endo: No fatigue Skin: No itch, No rash Objective Vital Signs Date Time Temp Pulse Resp B/P Pulse Ox O2 Delivery O2 Flow Rate FiO2 08/31/16 11:45 36.6 81 18 135/70 92 Room Air 08/31/16 07:55 36.6 82 22 149/53 94 Room Air 08/31/16 07:03 87 16 94 Room Air 08/31/16 03:59 36.7 77 20 126/64 95 Room Air 08/31/16 02:33 78 16 95 Room Air 08/31/16 00:00 Room Air 08/30/16 23:38 36.7 72 18 137/73 94 Room Air 08/30/16 20:00 Room Air 08/30/16 19:42 36.6 84 20 151/71 95 Room Air 08/30/16 19:10 89 16 94 Room Air 08/30/16 16:12 36.7 87 18 156/81 93 Room Air 08/30/16 16:00 Room Air 08/30/16 14:41 77 16 96 Room Air Physical Exam General Appearance: WD/WN, no apparent distress Eyes: normal inspection ENT: normal ENT inspection Neck: supple, no adenopathy Respiratory/Chest: chest non-tender, lungs clear Cardiovascular: regular rate, rhythm, no edema Abdomen: normal bowel sounds, non tender, soft Extremities: normal range of motion, non-tender 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, no motor/sensory deficits, alert, oriented x 3 Laboratory Results Last 24 Hours Test 08/30/16 16:33 08/30/16 20:09 08/31/16 05:25 08/31/16 07:38 Bedside Glucose 131 mg/dl 253 mg/dl 110 mg/dl White Blood Count 19.12 K/uL Red Blood Count 4.22 M/uL Hemoglobin 12.2 g/dL Hematocrit 37.8 % Mean Corpuscular Volume 89.6 fL Mean Corpuscular Hemoglobin 28.9 pg Mean Corpuscular Hemoglobin Concent 32.3 g/dl Platelet Count 215 K/uL Mean Platelet Volume 9.9 fL Neutrophils (%) (Auto) 87.2 % Lymphocytes (%) (Auto) 7.3 % Monocytes (%) (Auto) 4.2 % Eosinophils (%) (Auto) 0.0 % Basophils (%) (Auto) 0.1 % Neutrophils # (Auto) 16.67 K/uL Lymphocytes # (Auto) 1.40 K/uL Monocytes # (Auto) 0.81 K/uL Eosinophils # (Auto) 0.00 K/uL Basophils # (Auto) 0.01 K/uL RDW Standard Deviation 53.8 fL RDW Coefficient of Variation 16.3 % Immature Granulocyte % (Auto) 1.2 % Immature Granulocyte # (Auto) 0.23 K/uL Sodium Level 144 mmol/L Potassium Level 3.9 mmol/L Chloride Level 106 mmol/L Carbon Dioxide Level 32 mmol/L Anion Gap 6.0 mmol/L Blood Urea Nitrogen 27 mg/dl Creatinine 0.71 mg/dl Est Creatinine Clear Calc Drug Dose 67.4 ml/min Estimated GFR () 95.2 Estimated GFR (Non- 82.2 BUN/Creatinine Ratio 38.2 Random Glucose 161 mg/dl Calcium Level 9.2 mg/dl Magnesium Level 1.9 mg/dl Test 08/31/16 11:29 Bedside Glucose 181 mg/dl Assessment and Plan Asthma/COPD exacerbation with acute bronchitis - continue solumedrol continue to q 12 hours -continue atrovent and xopinex - continue azithromycin day #4 - cont levaquin day #2 - cont Robitussin Atrial fibrillation -continue Eliquis 5 mg by mouth twice a day - continue metoprolol HTN - continue diltiazem Diabetes mellitus -continue Accu-Cheks before meals and at bedtime with NovoLog coverage. Thrush -Mycelex troches dissolve in mouth 5 times per day day #05/23 ADD -continue Adderall XR 30 mg by mouth every morning and 15 mg by mouth daily. Hypercholesterolemia -continue atorvastatin 40 mg by mouth every afternoon. Peripheral neuropathy -continue gabapentin 200 mg by mouth twice a day 300 mg by mouth at bedtime. Anxiety -continue clonazepam 1 mg by mouth at bedtime, Lexapro 10 mg by mouth daily, lamotrigine 150 mg by mouth at bedtime, trazodone 150 mg by mouth at bedtime. Restless leg syndrome -continue pramipexole 0.5 mg by mouth at bedtime. PPx- eliquis Full Code
[2016-08-31] MEDS: AMPHETAMINE PO SCH (14:45)
[2016-08-31] MEDS: DEXTROAMPHETAMINE PO SCH (14:45)
[2016-08-31] MEDS: MONTELUKAST SOD 10 MG TAB PO SCH (21:03)
[2016-08-31] MEDS: GUAIFENESIN SUGAR FREE 100 MG/5 ML UDC PO PRN (21:03)
[2016-08-31] MEDS: PRAMIPEXOLE DIHYDROCHLORIDE 0.5 MG TAB PO SCH (21:04)
[2016-08-31] MEDS: ATORVASTATIN 40 MG TAB PO SCH (21:04)
[2016-08-31] MEDS: GABAPENTIN 300 MG CAP PO SCH (21:08)
[2016-08-31] MEDS: CLONAZEPAM 1 MG TAB PO SCH (21:34)
[2016-08-31] MEDS: TRAZODONE HCL 100 MG TAB PO SCH (21:34)
[2016-09-01] VITALS (8 sets, daily range): BP systolic 129–152; BP diastolic 70–84; PULSE 74–84; TEMP 36.3–36.9; O2SAT 93–100
[2016-09-01] MEDS: IPRATROPIUM BROMIDE NEB SOLN 0.02% 2.5 ML VIAL INH SCH ×4 (02:10→19:07)
[2016-09-01] MEDS: LEVALBUTEROL 1.25MG/0.5ML NEB INH SCH ×4 (02:10→19:07)
[2016-09-01] MEDS: METHYLPREDNISOLONE IV 60 MG in SYRINGE 0 ML IV SCH (06:22)
[2016-09-01] MEDS: GUAIFENESIN SUGAR FREE 100 MG/5 ML UDC PO PRN (06:22)
[2016-09-01] MEDS: CLOTRIMAZOLE 10 MG TROCHE MT SCH ×5 (06:23→21:34)
[2016-09-01] MEDS: INSULIN ASPART 100 UNITS/ML 3 ML PEN SC SCH ×4 (07:43→20:39)
[2016-09-01] MEDS: TRAVOPROST Z 0.004% OPH SOLN 2.5 ML BTL OPB SCH (07:44)
[2016-09-01] MEDS: BRIMONIDINE TARTRATE-P 0.15% 5 ML BTL OPB SCH ×2 (07:44→20:27)
[2016-09-01] MEDS: AMPHETAMINE-DEXTROAMPHETAMINE 30 MG CAP PO SCH (07:45)
[2016-09-01] MEDS: DILTIAZEM HCL 120 MG ER CAP PO SCH (07:46)
[2016-09-01] MEDS: CALCIUM 600MG + VIT D 400 IU TAB PO SCH ×2 (07:46→20:25)
[2016-09-01] MEDS: ASPIRIN 81 MG ECTAB PO SCH (07:47)
[2016-09-01] MEDS: LACTOBACILLUS ACIDOPHILUS (FLORANEX) TAB PO SCH ×3 (07:48→17:10)
[2016-09-01] MEDS: APIXABAN 2.5 MG TAB PO SCH ×2 (07:48→20:26)
[2016-09-01] MEDS: POTASSIUM CHLORIDE 20 MEQ TABCR PO SCH ×2 (07:48→20:27)
[2016-09-01] MEDS: MAGNESIUM OXIDE 400 MG TAB PO SCH (07:49)
[2016-09-01] MEDS: ESCITALOPRAM OXALATE 10 MG TAB PO SCH (07:49)
[2016-09-01] MEDS: PANTOprazole SOD 40 MG TAB PO SCH ×2 (07:50→20:27)
[2016-09-01] MEDS: CYANOCOBALAMIN 500 MCG TAB (VIT B-12) PO SCH (07:51)
[2016-09-01] MEDS: GABAPENTIN 100 MG CAP PO SCH ×3 (07:51→20:29)
[2016-09-01] MEDS: CHOLECALCIFEROL 1000 INTER.UNIT TAB PO SCH (07:51)
[2016-09-01] MEDS: OXYCODONE/ACETAMINOPHEN 5-325 TAB PO PRN ×2 (07:53→21:41)
[2016-09-01] MEDS: LEVOFLOXACIN / D5W 750 MG in PREMIXED IN D5W 150 ML IV SCH (11:31)
[2016-09-01] MEDS: CEROVITE ADV FORMULA TAB PO SCH (11:36)
[2016-09-01] MEDS: AMPHETAMINE PO SCH (15:27)
[2016-09-01] MEDS: DEXTROAMPHETAMINE PO SCH (15:27)
--- NOTE | 2016-09-01 17:24 | Hospitalist Progress Note ---
Hospitalist Progress Note Date of Service Sep 01, 2016. Subjective Pt evaluation today including: conversation w/ patient Patient c/o of continued SOB Constitutional: No fever Eyes: No worsening of vision ENT: No hearing loss Respiratory: No cough, No shortness of breath Cardiovascular: No chest pain Abdomen: No constipation, No pain, No vomiting Musculoskeletal: No joint pain Female : No dysuria Neurologic: No memory loss Psychiatric: No depression symptoms Objective Vital Signs Date Time Temp Pulse Resp B/P Pulse Ox O2 Delivery O2 Flow Rate FiO2 09/01/16 16:00 Room Air 09/01/16 14:49 36.5 74 22 129/70 94 Room Air 09/01/16 14:08 74 16 94 Room Air 09/01/16 11:28 36.9 75 20 133/74 93 Room Air 09/01/16 08:00 Room Air 09/01/16 07:31 36.3 74 20 146/78 100 Room Air 09/01/16 07:03 84 16 93 Room Air 09/01/16 02:11 77 16 97 Room Air 09/01/16 00:00 Room Air 08/31/16 23:20 36.8 82 20 155/64 95 Room Air 08/31/16 20:00 Room Air 08/31/16 19:40 37.0 128 18 126/75 91 Room Air 08/31/16 19:05 82 16 94 Room Air Physical Exam General Appearance: WD/WN, no apparent distress Eyes: normal inspection ENT: normal ENT inspection Neck: supple Respiratory/Chest: chest non-tender, normal breath sounds, + wheezing Cardiovascular: regular rate, rhythm, no edema, no gallop Abdomen: normal bowel sounds, non tender, soft Extremities: normal range of motion, non-tender 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, no motor/sensory deficits, alert, normal mood/affect, oriented x 3 Skin: normal color Lymphatic: no adenopathy Laboratory Results Last 24 Hours Test 08/31/16 20:22 09/01/16 07:38 09/01/16 11:08 09/01/16 16:25 Bedside Glucose 174 mg/dl 128 mg/dl 148 mg/dl 246 mg/dl Assessment and Plan Asthma/COPD exacerbation with acute bronchitis - d/c solumedrol/start prendisone -continue atrovent and xopinex - continue azithromycin day #5 - cont levaquin day #3 - cont Robitussin Atrial fibrillation -continue Eliquis 5 mg by mouth twice a day - continue metoprolol HTN - continue diltiazem Diabetes mellitus -continue Accu-Cheks before meals and at bedtime with NovoLog coverage. Thrush -Mycelex troches dissolve in mouth 5 times per day day #1/5 ADD -continue Adderall XR 30 mg by mouth every morning and 15 mg by mouth daily. Hypercholesterolemia -continue atorvastatin 40 mg by mouth every afternoon. Peripheral neuropathy -continue gabapentin 200 mg by mouth twice a day 300 mg by mouth at bedtime. Anxiety -continue clonazepam 1 mg by mouth at bedtime, Lexapro 10 mg by mouth daily, lamotrigine 150 mg by mouth at bedtime, trazodone 150 mg by mouth at bedtime. Restless leg syndrome -continue pramipexole 0.5 mg by mouth at bedtime. PPx- eliquis Full Code
[2016-09-01] MEDS: ATORVASTATIN 40 MG TAB PO SCH (20:29)
[2016-09-01] MEDS: PRAMIPEXOLE DIHYDROCHLORIDE 0.5 MG TAB PO SCH (20:29)
[2016-09-01] MEDS: MONTELUKAST SOD 10 MG TAB PO SCH (20:32)
[2016-09-01] MEDS: GABAPENTIN 300 MG CAP PO SCH (21:00)
[2016-09-01] MEDS: TRAZODONE HCL 100 MG TAB PO SCH (21:33)
[2016-09-01] MEDS: CLONAZEPAM 1 MG TAB PO SCH (21:33)
[2016-09-02] VITALS (10 sets, daily range): BP systolic 125–161; BP diastolic 71–82; PULSE 64–88; TEMP 36.4–37.1; O2SAT 93–95
[2016-09-02] MEDS: IPRATROPIUM BROMIDE NEB SOLN 0.02% 2.5 ML VIAL INH SCH ×4 (02:41→19:10)
[2016-09-02] MEDS: LEVALBUTEROL 1.25MG/0.5ML NEB INH SCH ×4 (02:41→19:10)
[2016-09-02] MEDS: INSULIN ASPART 100 UNITS/ML 3 ML PEN SC SCH ×4 (07:54→20:51)
[2016-09-02] MEDS: TRAVOPROST Z 0.004% OPH SOLN 2.5 ML BTL OPB SCH (07:56)
[2016-09-02] MEDS: BRIMONIDINE TARTRATE-P 0.15% 5 ML BTL OPB SCH ×2 (07:57→21:07)
[2016-09-02] MEDS: AMPHETAMINE-DEXTROAMPHETAMINE 30 MG CAP PO SCH (07:59)
[2016-09-02] MEDS: CALCIUM 600MG + VIT D 400 IU TAB PO SCH ×2 (08:01→21:05)
[2016-09-02] MEDS: DILTIAZEM HCL 120 MG ER CAP PO SCH (08:02)
[2016-09-02] MEDS: ASPIRIN 81 MG ECTAB PO SCH (08:02)
[2016-09-02] MEDS: LACTOBACILLUS ACIDOPHILUS (FLORANEX) TAB PO SCH ×3 (08:03→17:33)
[2016-09-02] MEDS: APIXABAN 2.5 MG TAB PO SCH ×2 (08:03→21:02)
[2016-09-02] MEDS: ESCITALOPRAM OXALATE 10 MG TAB PO SCH (08:04)
[2016-09-02] MEDS: POTASSIUM CHLORIDE 20 MEQ TABCR PO SCH ×2 (08:04→21:05)
[2016-09-02] MEDS: MAGNESIUM OXIDE 400 MG TAB PO SCH (08:04)
[2016-09-02] MEDS: CEROVITE ADV FORMULA TAB PO SCH (08:05)
[2016-09-02] MEDS: CYANOCOBALAMIN 500 MCG TAB (VIT B-12) PO SCH (08:07)
[2016-09-02] MEDS: PANTOprazole SOD 40 MG TAB PO SCH ×2 (08:07→21:07)
[2016-09-02] MEDS: CHOLECALCIFEROL 1000 INTER.UNIT TAB PO SCH (08:08)
[2016-09-02] MEDS: OXYCODONE/ACETAMINOPHEN 5-325 TAB PO PRN (08:10)
[2016-09-02] MEDS: HYDROCODONE/HOMATROPINE SYRUP 5MG/1.5MG 5ML UDP PO PRN (08:10)
[2016-09-02] MEDS: CLOTRIMAZOLE 10 MG TROCHE MT SCH ×5 (08:11→22:46)
[2016-09-02 08:58] LABS: BASO % 0.2 %; BASO ABS # 0.05 K/uL (0-0.2); COMPLETE YES; EOS % 0.1 %; HEMATOCRIT 43.1 % (37-47); IG% 4.5 %; LYMPH % 17.1 %; LYMPH ABS # 3.58 K/uL (1.2-3.4); MEAN CELL VOLUME 87.6 fL (80-100); MEAN CORPUSCULAR HEMOGLOBIN 28.7 pg (25-34); MEAN CORPUSCULAR HGB CONC 32.7 g/dl (32-36); MEAN PLATELET VOLUME 9.5 fL (7.4-10.4); MONO % 6.4 %; NEUT % 71.7 %; PLATELET COUNT 247 K/uL (130-400); RED BLOOD COUNT 4.92 M/uL (4.2-5.4); WHITE BLOOD COUNT 20.98 K/uL (4.8-10.8)
[2016-09-02 09:31] LABS: BUN/CREATININE RATIO 26.8 (10-20); CALCIUM 9.3 mg/dl (8.5-10.1); POTASSIUM 4.1 mmol/L (3.5-5.1)
--- NOTE | 2016-09-02 10:28 | Pharmacy Progress Note ---
Automatic IV to PO Conversion Date of Service: Sep 02, 2016. [facility] has identified patient as an appropriate candidate for automatic intravenous to oral conversion. Eligible medication: LVQ 750 IV every 24 hours. Subjective The patient is a 76 year old female admitted on Aug 28, 2016 at 06:09 for Acute Bronchitis, Copd Exacerbation. Objective Vital Signs: Vital Signs Past 12 Hours Date Time Temp Pulse Resp B/P Pulse Ox O2 Delivery O2 Flow Rate FiO2 09/02/16 07:47 72 16 95 Room Air 09/02/16 07:33 36.4 76 18 161/78 94 Room Air 09/02/16 06:38 36.8 72 18 155/82 95 Room Air 09/02/16 02:41 80 16 94 Room Air 09/02/16 00:00 Room Air White Blood Count: Test 09/02/16 08:43 White Blood Count 20.98 K/uL (4.8-10.8) Red Blood Count 4.92 M/uL (4.2-5.4) Hemoglobin 14.1 g/dL (12.0-16.0) Hematocrit 43.1 % (37-47) Mean Corpuscular Volume 87.6 fL (80-100) Mean Corpuscular Hemoglobin 28.7 pg (25-34) Mean Corpuscular Hemoglobin Concent 32.7 g/dl (32-36) Platelet Count 247 K/uL (130-400) Mean Platelet Volume 9.5 fL (7.4-10.4) Neutrophils (%) (Auto) 71.7 % Lymphocytes (%) (Auto) 17.1 % Monocytes (%) (Auto) 6.4 % Eosinophils (%) (Auto) 0.1 % Basophils (%) (Auto) 0.2 % Neutrophils # (Auto) 15.04 K/uL (1.4-6.5) Lymphocytes # (Auto) 3.58 K/uL (1.2-3.4) Monocytes # (Auto) 1.34 K/uL (0.11-0.59) Eosinophils # (Auto) 0.03 K/uL (0-0.5) Basophils # (Auto) 0.05 K/uL (0-0.2) Height (Feet): 5 Height (Inches): 5.00 Weight (Kilograms): 79.500 Assessment & Plan The Infectious Disease Society and the [place] [employer] recommend conversion to oral therapy once a patient is determined to be clinically stable and are able to tolerate oral medications. Patient identified as appropriate candidate for IV to PO conversion of [] based on the following criteria: * Afebrile for greater than or equal to 12 hours * Receiving oral/enteral medications and/or tolerating oral/enteral diet for greater than 24 hours * Improvement in clinical condition evidenced by .. WBC count of 20.98 (likely 2/2 to steroids) 10^3/uL and trending downward, resolution of signs/symptoms of illness * Hemodynamically stable or * Receiving oral medications and/or tolerating oral diet for greater than 24 hours * Patient does not meet criteria for use of intravenous proton pump inhibitors ( negative for GI bleed, hypersecretory conditions, GERD associated with erosive esophagitis & unable to take PO) Automatic conversion to: LVQ 750mg PO every 24 hours
--- NOTE | 2016-09-02 10:46 | Progress Note ---
Subjective Date of Service: Sep 02, 2016. Problem List Medical Problems: (1) Chronic obstructive pulmonary disease Status: Acute (2) Failure of outpatient treatment Status: Acute (3) Hypokalemia Status: Acute (4) Shortness of breath Status: Acute Objective Vital Signs Date Time Temp Pulse Resp B/P Pulse Ox O2 Delivery O2 Flow Rate FiO2 09/02/16 07:47 72 16 95 Room Air 09/02/16 07:33 36.4 76 18 161/78 94 Room Air 09/02/16 06:38 36.8 72 18 155/82 95 Room Air 09/02/16 02:41 80 16 94 Room Air 09/02/16 00:00 Room Air 09/01/16 20:00 Room Air 09/01/16 19:38 36.8 77 20 152/84 95 Room Air 09/01/16 19:07 78 16 93 Room Air 09/01/16 16:00 Room Air 09/01/16 14:49 36.5 74 22 129/70 94 Room Air 09/01/16 14:08 74 16 94 Room Air 09/01/16 11:28 36.9 75 20 133/74 93 Room Air Laboratory Results Last 24 Hours Test 09/01/16 11:08 09/01/16 16:25 09/01/16 20:00 09/02/16 07:53 Bedside Glucose 148 mg/dl 246 mg/dl 141 mg/dl 96 mg/dl Test 09/02/16 08:43 White Blood Count 20.98 K/uL Red Blood Count 4.92 M/uL Hemoglobin 14.1 g/dL Hematocrit 43.1 % Mean Corpuscular Volume 87.6 fL Mean Corpuscular Hemoglobin 28.7 pg Mean Corpuscular Hemoglobin Concent 32.7 g/dl Platelet Count 247 K/uL Mean Platelet Volume 9.5 fL Neutrophils (%) (Auto) 71.7 % Lymphocytes (%) (Auto) 17.1 % Monocytes (%) (Auto) 6.4 % Eosinophils (%) (Auto) 0.1 % Basophils (%) (Auto) 0.2 % Neutrophils # (Auto) 15.04 K/uL Lymphocytes # (Auto) 3.58 K/uL Monocytes # (Auto) 1.34 K/uL Eosinophils # (Auto) 0.03 K/uL Basophils # (Auto) 0.05 K/uL RDW Standard Deviation 50.7 fL RDW Coefficient of Variation 15.9 % Immature Granulocyte % (Auto) 4.5 % Immature Granulocyte # (Auto) 0.94 K/uL Sodium Level 140 mmol/L Potassium Level 4.1 mmol/L Chloride Level 101 mmol/L Carbon Dioxide Level 30 mmol/L Anion Gap 9.0 mmol/L Blood Urea Nitrogen 27 mg/dl Creatinine 1.00 mg/dl Est Creatinine Clear Calc Drug Dose 49.1 ml/min Estimated GFR () 62.9 Estimated GFR (Non- 54.3 BUN/Creatinine Ratio 26.8 Random Glucose 166 mg/dl Calcium Level 9.3 mg/dl Assessment and Plan Asthma/COPD exacerbation with acute bronchitis - d/c solumedrol/cont prednisone 50 mg PO daily, pt states improving but not at baseline - continue atrovent and xopinex - continue azithromycin day # 6 - cont levaquin day # 4 - cont Robitussin Atrial fibrillation -continue Eliquis 5 mg by mouth twice a day - continue metoprolol HTN - continue diltiazem Diabetes mellitus -continue Accu-Cheks before meals and at bedtime with NovoLog coverage. Thrush -Mycelex troches dissolve in mouth 5 times per day day # 2/5 ADD -continue Adderall XR 30 mg by mouth every morning and 15 mg by mouth daily. Hypercholesterolemia -continue atorvastatin 40 mg by mouth every afternoon. Peripheral neuropathy -continue gabapentin 200 mg by mouth twice a day 300 mg by mouth at bedtime. Anxiety -continue clonazepam 1 mg by mouth at bedtime, Lexapro 10 mg by mouth daily, lamotrigine 150 mg by mouth at bedtime, trazodone 150 mg by mouth at bedtime. Restless leg syndrome -continue pramipexole 0.5 mg by mouth at bedtime. PPx- eliquis Full Code
[2016-09-02] MEDS: GUAIFENESIN SUGAR FREE 100 MG/5 ML UDC PO PRN ×3 (11:24→22:49)
[2016-09-02] MEDS: LEVOFLOXACIN 750 MG TAB PO SCH (11:26)
[2016-09-02] MEDS: GABAPENTIN 100 MG CAP PO SCH (11:27)
[2016-09-02] MEDS: AMPHETAMINE PO SCH (15:08)
[2016-09-02] MEDS: DEXTROAMPHETAMINE PO SCH (15:08)
[2016-09-02] MEDS ORDERED: NURSING VERBAL MED ORDER ONE (19:00)
[2016-09-02] MEDS: ATORVASTATIN 40 MG TAB PO SCH (21:01)
[2016-09-02] MEDS: GABAPENTIN 300 MG CAP PO SCH (21:01)
[2016-09-02] MEDS: PRAMIPEXOLE DIHYDROCHLORIDE 0.5 MG TAB PO SCH (21:03)
[2016-09-02] MEDS: MONTELUKAST SOD 10 MG TAB PO SCH (21:05)
[2016-09-02] MEDS: CLONAZEPAM 1 MG TAB PO SCH (21:12)
[2016-09-02] MEDS: TRAZODONE HCL 100 MG TAB PO SCH (21:13)
[2016-09-03] MEDS: LEVALBUTEROL 1.25MG/0.5ML NEB INH SCH ×2 (01:52→07:15)
[2016-09-03] MEDS: IPRATROPIUM BROMIDE NEB SOLN 0.02% 2.5 ML VIAL INH SCH ×2 (01:52→07:15)
[2016-09-03 01:53] VITALS: PULSE 86; O2SAT 95
[2016-09-03] MEDS: GUAIFENESIN SUGAR FREE 100 MG/5 ML UDC PO PRN (05:00)
[2016-09-03] MEDS: CLOTRIMAZOLE 10 MG TROCHE MT SCH ×2 (06:06→09:08)
[2016-09-03 07:04] VITALS: BP 157/83; PULSE 78; TEMP 36.5; O2SAT 96
[2016-09-03 07:15] VITALS: PULSE 83; O2SAT 97
[2016-09-03] MEDS ORDERED: MAGNESIUM OXIDE 400 MG TAB PO SCH (08:00)
[2016-09-03] MEDS: PANTOprazole SOD 40 MG TAB PO SCH (09:03)
[2016-09-03] MEDS: CYANOCOBALAMIN 500 MCG TAB (VIT B-12) PO SCH (09:04)
[2016-09-03] MEDS: CALCIUM 600MG + VIT D 400 IU TAB PO SCH (09:04)
[2016-09-03] MEDS: ESCITALOPRAM OXALATE 10 MG TAB PO SCH (09:04)
[2016-09-03] MEDS: LEVOFLOXACIN 750 MG TAB PO SCH (09:05)
[2016-09-03] MEDS: GABAPENTIN 100 MG CAP PO SCH ×2 (09:05→11:52)
[2016-09-03] MEDS: ASPIRIN 81 MG ECTAB PO SCH (09:05)
[2016-09-03] MEDS: DILTIAZEM HCL 120 MG ER CAP PO SCH (09:06)
[2016-09-03] MEDS: LACTOBACILLUS ACIDOPHILUS (FLORANEX) TAB PO SCH ×2 (09:06→11:52)
[2016-09-03] MEDS: POTASSIUM CHLORIDE 20 MEQ TABCR PO SCH (09:07)
[2016-09-03] MEDS: CEROVITE ADV FORMULA TAB PO SCH (09:07)
[2016-09-03] MEDS: APIXABAN 2.5 MG TAB PO SCH (09:07)
[2016-09-03] MEDS: CHOLECALCIFEROL 1000 INTER.UNIT TAB PO SCH (09:07)
[2016-09-03] MEDS: TRAVOPROST Z 0.004% OPH SOLN 2.5 ML BTL OPB SCH (09:08)
[2016-09-03] MEDS: INSULIN ASPART 100 UNITS/ML 3 ML PEN SC SCH (09:08)
[2016-09-03] MEDS: BRIMONIDINE TARTRATE-P 0.15% 5 ML BTL OPB SCH (09:08)
[2016-09-03 09:53] LABS: CREATININE 0.95 mg/dl (0.60-1.20)
[2016-09-03] MEDS: AMPHETAMINE-DEXTROAMPHETAMINE 30 MG CAP PO SCH (09:54)
[2016-09-03] MEDS ORDERED: PRED10TA PO (10:27)
[2016-09-03] MEDS ORDERED: DEXT30TA7 PO (10:27)
[2016-09-03] MEDS ORDERED: LVQ750 PO (10:27)
--- NOTE | 2016-09-03 10:30 | Discharge Instructions ---
Discharge Instructions Date of Service Sep 03, 2016. Admission Reason for Admission: Acute Bronchitis, Copd Exacerbation Discharge Discharge Diagnosis / Problem: Acute bronchitis, copd exacerbation Discharge Goals Goal(s): Decrease discomfort, Improve function, Increase independence, Improve disease control, Diagnostic testing, Therapeutic intervention Activity Recommendations Activity Limitations: resume your previous activity Exercise/Sports Limitations: none Shower/Bathe: no limitations . Instructions / Follow-Up Instructions / Follow-Up Patient to be discharged home with home health Please take antibiotic levaquin once daily for 2 more days Please take prednisone taper as directed If worsening fevers, cough, shortness of breath, please report to ER Please follow up with Dr Costa in 1-2 weeks Current Hospital Diet Patient's current hospital diet: Regular Diet Discharge Diet Recommended Diet: Regular Diet Pending Studies Studies pending at discharge: no Laboratory Results Lipid Panel Test 08/26/16 14:46 Range/Units Triglycerides Level 177 H 0-150 mg/dl Cholesterol Level 163 0-200 mg/dl HDL Cholesterol 83 mg/dl Cholesterol/HDL Ratio 2.0 LDL Cholesterol, Calculated 45 mg/dl Medical Emergencies . Who to Call and When: Medical Emergencies: If at any time you feel your situation is an emergency, please call 911 immediately. . Non-Emergent Contact Non-Emergency issues call your: Primary Care Provider Call Non-Emergent contact if: you have a fever, your pain is worsening . . "Provider Documentation" section prepared by Aguila Mota. VTE Core Measure Inpt VTE Proph given/why not?: Other Anticoagulation (Eliquis)
--- NOTE | 2016-09-03 11:14 | Discharge Summary ---
Discharge Summary Date of Service Sep 03, 2016. Discharge Summary Admission Date: Aug 28, 2016 at 06:09 Discharge Date: Sep 03, 2016 Discharge Disposition: Home with services Principal Diagnosis: bronchitis, copd exacerbation Immunizations: Have You Had Influenza Vaccine: Yes Influenza Vaccine Date: Apr 08, 2011 History of Tetanus Vaccine?: Yes Tetanus Immunization Date: Oct 31, 2003 History of Pneumococcal: Yes Pneumococcal Date: May 08, 2004 History of Hepatitis B Vaccine: Unknown Medication Reconciliation New Medications: Dextromethorphan-Guaifenesin (Mucinex Dm) 1 Tab Tab 1 TAB PO Q12 PRN for Cough for 10 Days, #20 TAB Prednisone Tab (Prednisone) 10 Mg Tab 10 MG PO UD for 16 Days, #40 TAB Please take prednisone taper as follows: take 4 pills daily for 4 days take 3 pills daily for 4 days take 2 pills daily for 4 days take 1 pill daily for 4 days then stop Levofloxacin (Levofloxacin) 750 Mg Tab 750 MG PO DAILY@11 for 2 Days, #2 TAB Continued Medications: Albuterol Hfa (Ventolin Hfa) 200 Puffs/44985 Mcg Aers 1-2 PUFFS INH Q4-6HRS PRN for SOB/Wheezing, #1 INHALER Albuterol Sulf (Proventil 0.083% 2.5MG/3ML) 2.5 Mg/3 Ml Nebu 2.5 MG INH QID PRN for Wheezing, EA Amphetamine-Dextroamphetamine 15MG (Adderall Xr 15MG) 1 Cap Cap 15 MG PO DAILY, CAP Amphetamine-Dextroamphetamine 30MG (Adderall Xr 30MG) 1 Cap Cap 30 MG PO QAM, CAP Apixaban (Eliquis) 5 Mg Tab 5 MG PO BID Aspirin (Aspirin Ec) 81 Mg Tab 81 MG PO DAILY Atorvastatin (Lipitor) 40 Mg Tab 40 MG PO QPM, TAB Brimonidine Tartrate (Alphagan P Oph) 0.1 % Mary 1 DROP OPB Q12, BTL Budesonide/Formoterol Fumarate (Symbicort 160/4.5 Inhaler ) Aero 2 PUFFS INH BID PRN for SOB/Wheezing, INHALER Calcium Carbonate-Vitamin D (Calcium 600 + D) 1 Tab Tab 1 TAB PO BID Cholecalciferol (Vitamin D 1000 Unit) 1,000 Unit Cap 1000 INTER.UNIT PO DAILY, CAP Clonazepam (Klonopin) 1 Mg Tab 1 MG PO HS Cyanocobalamin (Vitamin B-12) 250 Mcg Tab 250 MCG PO DAILY, TAB Diltiazem HCl (Diltiazem HCl ER) 120 Mg Caper 240 MG PO QAM, #30 Escitalopram (Lexapro) 10 Mg Tab 10 MG PO DAILY, TAB Gabapentin (Gabapentin) 100 Mg Cap 200 MG PO BID TAKE IN MORNING AND AT NOON Gabapentin (Neurontin) 100 Mg Cap 300 MG PO HS Ipratropium-Albuterol (Duoneb) 3 Ml Nebu 1 TREATMENT INH Q4H PRN for SOB/Wheezing, INHA Lactobacillus (Acidophilus) 1 Cap Cap 1 CAP PO DAILY Lamotrigine (Lamictal) 150 Mg Tab 150 MG PO HS, TAB Magnesium (Magnesium) 200 Mg Tab 200 MG PO Q2D ALTERNATE WITH 400MG Magnesium Oxide (Mg Supplement (Magnesium) 400 Mg Cap 400 MG PO Q2D ALTERNATE WITH 200MG Montelukast Sodium (Singulair) 10 Mg Tab 10 MG PO HS, TAB Multiple Vitamins W/ Minerals (One Daily For Women) 1 Tab Tab 1 TAB PO DAILY Omeprazole (Prilosec) 20 Mg Capcr 20 MG PO BID Oxycodone/Acetaminophen 5MG/325MG (Percocet 5MG/325MG) Tab 1 TAB PO BID PRN for Pain PAIN Pramipexole Dihydrochloride (Mirapex) 0.5 Mg Tab 0.5 MG PO HS Travoprost (Travatan Z) 0.004 % Yfn 1 DROP OPB DAILY, #8 Trazodone HCl (Trazodone HCl) 150 Mg Tab 150 MG PO HS, #90 Discontinued Medications: Doxycycline Hyclate (Vibramycin) 100 Mg Cap 100 MG PO BID for 10 Days, #20 Prednisone (Prednisone) 10 Mg Tab MG PO UD TAKE 4 TABS DAILY X3 DAYS,THEN 3 TABS FOR 3 DAYS,THEN 2 FOR 3 DAYS,THEN 1 FOR 3 DAYS THEN STOP Discharge Exam Review of Systems: Constitutional: No chills, No fever Respiratory: + cough, No dyspnea on exertion, No shortness of breath, No sputum, No wheezing Cardiovascular: No chest pain, No orthopnea Abdomen: No diarrhea, No nausea, No pain, No vomiting Musculoskeletal: No joint pain, No muscle pain Genitourinary - Female: No dysuria, No urinary frequency, No urinary urgency Neurologic: No paralysis, No weakness Physical Exam: General Appearance: WD/WN, no apparent distress Neck: supple, no adenopathy Respiratory/Chest: lungs clear, normal breath sounds Cardiovascular: no edema, no gallop Abdomen / GI: non tender, soft Neurologic/Psychiatric: alert, oriented x 3 Hospital Course Asthma/COPD exacerbation with acute bronchitis - d/c solumedrol/cont prednisone 50 mg PO daily, pred taper on discharge - finished 6 days of azithromycin day - discharged on levaquin to complete 7 day course, in addition to mucinex for cough - leukocytosis likely form steroids, no fevers or worsening sob Atrial fibrillation -continue Eliquis 5 mg by mouth twice a day -continue metoprolol HTN - continue diltiazem Diabetes mellitus -continue Accu-Cheks before meals and at bedtime with NovoLog coverage. Thrush -Mycelex troches dissolve in mouth 5 times per day day # 2/5 ADD -continue Adderall XR 30 mg by mouth every morning and 15 mg by mouth daily. Hypercholesterolemia -continue atorvastatin 40 mg by mouth every afternoon. Peripheral neuropathy -continue gabapentin 200 mg by mouth twice a day 300 mg by mouth at bedtime. Anxiety -continue clonazepam 1 mg by mouth at bedtime, Lexapro 10 mg by mouth daily, lamotrigine 150 mg by mouth at bedtime, trazodone 150 mg by mouth at bedtime. Restless leg syndrome -continue pramipexole 0.5 mg by mouth at bedtime. PPx- eliquis Full Code Total Time Spent: Greater than 30 minutes This includes examination of the patient, discharge planning, medication reconciliation, and communication with other providers. Discharge Instructions Please refer to the electronic Patient Visit Report (Discharge Instructions) for additional information. Additional Copies To Faiza Costa M.D.
[2016-09-03 11:15] VITALS: BP 138/84; PULSE 76; TEMP 36.7; O2SAT 95
[2016-09-03 11:34] VITALS: BP 138/84; PULSE 76; TEMP 36.7; O2SAT 95
[2016-09-03] MEDS: OXYCODONE/ACETAMINOPHEN 5-325 TAB PO PRN (11:51)
[2016-12-26] MEDS ORDERED: PRED10TA PO ×2 (12:32→12:46)
[2016-12-26] MEDS ORDERED: DXY100 PO (12:32)
[2016-12-26] MEDS ORDERED: SYMIN160 INH (12:46)
[2016-12-26] MEDS ORDERED: IPRASOL4 INH (12:46)
== END 2016-09-03 14:57 | disposition home health service (06) | DRG 191 ==
LOC: ENRESERVTM → ENRESERVDT → EDBD 04:33 → C.EDA 04:35 → C.MSICU 06:09 → C.4E 08-29 11:20
PROVIDERS: ADMIT Hospitalist; ATTEND Hospitalist
DX: J44.1 Chronic obstructive pulmonary disease with (acute) exacerbation (principal); B37.0 Candidal stomatitis; J20.9 Acute bronchitis, unspecified; J44.0 Chronic obstructive pulmonary disease with (acute) lower respiratory infection; I48.91 Unspecified atrial fibrillation; I10 Essential (primary) hypertension; E87.6 Hypokalemia; M06.9 Rheumatoid arthritis, unspecified; E03.9 Hypothyroidism, unspecified; F41.9 Anxiety disorder, unspecified; G25.81 Restless legs syndrome; E53.8 Deficiency of other specified B group vitamins; H40.9 Unspecified glaucoma; E11.42 Type 2 diabetes mellitus with diabetic polyneuropathy; G62.9 Polyneuropathy, unspecified; E78.00 Pure hypercholesterolemia, unspecified; F98.8 Other specified behavioral and emotional disorders with onset usually occurring in childhood and adolescence; Z96.659 Presence of unspecified artificial knee joint; I87.2 Venous insufficiency (chronic) (peripheral); F32.9 Major depressive disorder, single episode, unspecified; E78.5 Hyperlipidemia, unspecified; Z86.14 Personal history of Methicillin resistant Staphylococcus aureus infection; Z87.01 Personal history of pneumonia (recurrent); Z87.891 Personal history of nicotine dependence; Z79.899 Other long term (current) drug therapy; Z79.52 Long term (current) use of systemic steroids; Z79.891 Long term (current) use of opiate analgesic; Z79.51 Long term (current) use of inhaled steroids; Z79.01 Long term (current) use of anticoagulants; M54.2 Cervicalgia; E83.42 Hypomagnesemia

== ENCOUNTER → 2016-11-12 | Outpatient (CLI) | payer OTHER ==
[~2016-11-12] MED LIST changes: +ALBINS/ INH; -ALBU0.5N2 NEB; -ALBUAER INH; +APIX1TAB3 PO; +BRIM0.1S OPB; +BRIM0.2S18 OPB; -CHOL100010 PO; +CHOL100027 PO; -DOXY100C2 PO; +DSY/150 PO; +DXY100 PO; -ELQ25 PO; +GABA-112 PO; -GUAI1TAB55 PO; +IPRASOL4 INH; +LVQ750 PO; +MAGN1CAP2 PO; +MAGN200T3 PO; -MAGN400T6 PO; +NRN100 PO; -TIOTCAP INH; -TRAM-10 PO; +TRAV0.00 OPB; -TRAZ100T29 PO; +VNTHFA/IN INH
--- NOTE | 2016-11-12 15:38 | MAMMOGRAPHY REPORT ---
BILATERAL DIGITAL SCREENING MAMMOGRAM WITH CAD: 11/12/2016 CLINICAL HISTORY: Routine screening. Patient has no complaints. TECHNIQUE: Bilateral CC and MLO views were obtained. Current study was also evaluated with a Compute r Aided Detection (CAD) system. COMPARISON: Comparison is made to exams dated: 09/12/2014 mammogram, 09/10/2013 mammogram, 09/09/2012 m ammogram, 09/09/2011 mammogram, 09/07/2010 mammogram, and 08/22/2009 mammogram - [facility]ter. BREAST COMPOSITION: There are scattered areas of fibroglandular density in both breasts. FINDINGS: There are mild vascular calcifications in the breasts. A few scattered benign-appearing gr oupings of calcifications. No suspicious mass, architectural distortion or cluster of suspicious adeel rocalcifications is seen. IMPRESSION: ACR BI-RADS CATEGORY 1: NEGATIVE There is no mammographic evidence of malignancy. A 1 year screening mammogram is recommended. The pa tient will receive written notification of the results. Approximately 10% of breast cancers are not detected with mammography. A negative mammographic report should not delay biopsy if a clinically suggestive mass is present. Jenny Russell M.D. ay/:11/12/2016 15:11:33 [employer] Driver: Mitali MARK(Darius)(M), [facility] letter sent: Normal 1/2 BI-RADS Code: ACR BI-RADS Category 1: Negative
== END | disposition home or self-care (01) ==
LOC: C.MAMM 14:13
PROVIDERS: ATTEND Family Medicine
DX: Z12.31 Encounter for screening mammogram for malignant neoplasm of breast (principal); Z13.820 Encounter for screening for osteoporosis; M85.852 Other specified disorders of bone density and structure, left thigh

== ENCOUNTER 2016-12-23 14:21 | Inpatient (IN) | payer OTHER ==
[~2016-12-23] VITALS: Ht 165.1 cm; Wt 83.0 kg
[~2016-12-23 14:21] MED LIST changes: -BRIM0.2S18 OPB; -DXY100 PO; -PRED10TA PO
--- NOTE | 2016-12-23 14:50 | EMERGENCY ROOM VISIT NOTE ---
History Report prepared by José: Yoanna Tamez Under the Supervision of: Dr. Barrera Knutson M.D. First contact with patient: 14:39 Chief Complaint: SHORTNESS OF BREATH Stated Complaint: SHORTNESS OF BREATH History of Present Illness The patient is a 76 year old female who presents to the Emergency Room with complaints of constant shortness of breath beginning 1 week ago. The patient states that she has a history of COPD, asthma, and atrial fibrillation. She reports that she went to see her PCP last week and got Solu-Medrol, a Z-Pack, and Prednisone. She notes that she has not had significant improvement of her symptoms since taking the medications. The patient sates that she did have an episode of a fall onto her butt recently but she has been okay since the fall. She complains of a clear productive cough. She denies any fever, chest pain, leg pain, leg swelling, nausea, abdominal pain, and vomiting. The patient reports that she has had diarrhea from taking her Magnesium. She notes that her symptoms today feel similar to her previous episodes. She states that she received Solu-Medrol and a duoneb en route to the hospital in the ambulance and has been feeling slightly better. Source of History: patient Onset: 1 week ago Position: other (respiratory) Quality: other (SOB) Timing: constant Associated Symptoms: + cough, No fevers, No chest pain, No nausea, No vomiting, No abdominal pain Note: She denies any fleg pain, leg swelling. Review of Systems See HPI for pertinent positives & negatives. A total of 10 systems reviewed and were otherwise negative. Past Medical & Surgical Medical Problems: (1) Acute bronchitis (2) ADD (3) Anxiety (4) Arthroplasty of knee (5) Asthma, Unspecified (6) Chronic venous insufficiency (7) COPD (8) COPD exacerbation (9) Depression (10) Diabetes (11) Elbow surgery (12) Hyperlipidemia (13) Hypothyroidism Nos (14) MRSA (15) Pneumonia (16) Restless legs (17) Rheumatoid arthritis (18) Small bowel obstruction Surgical Problems: (1) Appendectomy (2) Post-operative state Old medical records were reviewed. Nurse's notes were reviewed and I agree with. Family History FHx: chronic respiratory condition Social History Smoking Status: Former Smoker Drug Use: none Marital Status: Housing Status: lives alone Occupation Status: retired Current/Historical Medications Scheduled Amphetamine-Dextroamphetamine 15MG (Adderall Xr 15MG), 15 MG PO DAILY Amphetamine-Dextroamphetamine 30MG (Adderall Xr 30MG), 30 MG PO QAM Apixaban (Eliquis), 5 MG PO BID Aspirin (Aspirin Ec), 81 MG PO DAILY Atorvastatin (Lipitor), 40 MG PO QPM Brimonidine Tartrate (Alphagan P Oph), 1 DROP OPB Q12 Calcium Carbonate-Vitamin D (Calcium 600 + D), 1 TAB PO BID Cholecalciferol (Vitamin D 1000 Unit), 1,000 INTER.UNIT PO DAILY Clonazepam (Klonopin), 1 MG PO HS Cyanocobalamin (Vitamin B-12), 250 MCG PO DAILY Diltiazem HCl (Diltiazem HCl ER), 240 MG PO QAM Escitalopram (Lexapro), 10 MG PO DAILY Gabapentin (Gabapentin), 200 MG PO TID Lactobacillus (Acidophilus), 1 CAP PO DAILY Lamotrigine (Lamictal), 150 MG PO HS Magnesium (Magnesium), 200 MG PO Q2D Magnesium Oxide (Mg Supplement (Magnesium), 400 MG PO Q2D Montelukast Sodium (Singulair), 10 MG PO HS Multiple Vitamins W/ Minerals (One Daily For Women), 1 TAB PO DAILY Omeprazole (Prilosec), 20 MG PO BID Oxycodone/Acetaminophen 5MG/325MG (Percocet 5MG/325MG), 1 TAB PO TID Pramipexole Dihydrochloride (Mirapex), 0.5 MG PO HS Travoprost (Travatan Z), 1 DROP OPB DAILY Trazodone HCl (Trazodone HCl), 150 MG PO HS Scheduled PRN Albuterol Hfa (Ventolin Hfa), 1-2 PUFFS INH Q4-6HRS PRN for SOB/Wheezing Albuterol Sulf (Proventil 0.083% 2.5MG/3ML), 2.5 MG INH QID PRN for Wheezing Budesonide/Formoterol Fumarate (Symbicort 160/4.5 Inhaler ), 2 PUFFS INH BID PRN for SOB/Wheezing Ipratropium-Albuterol (Duoneb), 1 TREATMENT INH Q4H PRN for SOB/Wheezing Allergies Coded Allergies: Chocolate (Verified Allergy, Mild, RASH, 08/12/15) Azithromycin (Verified Allergy, Unknown, THROAT BURNED-LOST WT, 08/12/15) Fluticasone (Verified Allergy, Unknown, FROM ADVAIR, CHEST PAIN, 08/12/15) ALLERGY TO ADVAIR Penicillins (Verified Allergy, Unknown, UNKNOWN-HAS TOLERATED ROCEPHIN IN PAST, 08/12/15) PCN ALLERGY IDENTIFIED FROM ALLERGY TESTING Procaine (Verified Allergy, Unknown, ANAPHYLAXIS/MOUTH SWELLING/SOB, ) Salmeterol (Verified Allergy, Unknown, FROM ADVAIR, CHEST PAIN., 08/12/15) ALLERGY TO ADVAIR Moxifloxacin (Verified Adverse Reaction, Unknown, NAUSEA & VOMITING, ) NSAIDs (Verified Adverse Reaction, Unknown, AVOID DUE TO ULCER HX, 08/12/15 ) Zolpidem (Verified Adverse Reaction, Unknown, SLEEP WALKING, 08/12/15) Physical Exam Vital Signs Date Time Temp Pulse Resp B/P (MAP) Pulse Ox O2 Delivery O2 Flow Rate FiO2 12/23/16 16:51 78 23 90 12/23/16 16:21 73 22 92 12/23/16 16:19 127/58 12/23/16 15:51 73 27 96 12/23/16 15:21 76 24 12/23/16 14:51 86 Room Air 12/23/16 14:51 68 29 86 12/23/16 14:39 70 12/23/16 14:30 90 Room Air 12/23/16 14:25 36.8 69 24 118/64 90 Room Air 12/23/16 14:25 90 Room Air Physical Exam General: Chronically ill appearing older female who has a hacking cough HEENT: Normal cephalic atraumatic. Pupils are equal round and reactive to light. Extraocular movements are intact. Oropharynx is pink with moist mucous membranes. No swelling of the mouth lips or tongue. Neck: Supple with a midline trachea. No meningeal signs or stiffness, no JVD or bruits. No Stridor. Chest: Mild increased work of breathing, wheezing bilaterally with moderate air movement. Heart: regular rate and rhythm. Abdomen: Soft nontender, nondistended without rebound guarding or rigidity. Extremities: No cyanosis clubbing or edema. No calf tenderness or assymetry Spine/Back. Non tender to palpation. No CVA tenderness Skin: Good turgor without rashes. Neurologic exam: Cranial nerves two through 12 are intact. Motor and sensation are intact and symmetrical throughout. Medical Decision & Procedures ER Provider Diagnostic Interpretation: X-ray results as stated below per interpretation by me and the radiologist: CHEST ONE VIEW PORTABLE FINDINGS: Cardiac silhouette is upper limits of normal and unchanged. There is atherosclerosis of the aorta. There is no pneumothorax or large pleural effusion. Hazy left greater the right bibasilar opacities are noted which appear to be somewhat linear at the left lung base. The bones are grossly intact. IMPRESSION: Somewhat linear left greater than right bibasilar opacities suggest atelectasis with pneumonia thought to be less likely. The above report was generated using voice recognition software. It may contain grammatical, syntax or spelling errors. Electronically signed by: Jaylon Alcocer M.D. 12/23/2016 3:20 PM Dictated Date/Time: 12/23/2016 3:18 PM Laboratory Results 12/23/16 15:28 Red Blood Count 4.24, Mean Corpuscular Volume 90.3, Mean Corpuscular Hemoglobin 28.1, Mean Corpuscular Hemoglobin Concent 31.1, Mean Platelet Volume 9.0, Neutrophils (%) (Auto) 71.2, Lymphocytes (%) (Auto) 20.7, Monocytes (%) (Auto) 4.4, Eosinophils (%) (Auto) 2.3, Basophils (%) (Auto) 0.3, Neutrophils # (Auto) 5.31, Lymphocytes # (Auto) 1.54, Monocytes # (Auto) 0.33, Eosinophils # (Auto) 0.17, Basophils # (Auto) 0.02 12/23/16 15:28 Test 12/23/16 15:27 12/23/16 15:28 Prothrombin Time 10.5 SECONDS (9.0-12.0) Prothromb Time International Ratio 1.0 (0.9-1.1) Activated Partial Thromboplast Time 28.9 SECONDS (21.0-31.0) Partial Thromboplastin Ratio 1.1 White Blood Count 7.45 K/uL (4.8-10.8) Red Blood Count 4.24 M/uL (4.2-5.4) Hemoglobin 11.9 g/dL (12.0-16.0) Hematocrit 38.3 % (37-47) Mean Corpuscular Volume 90.3 fL (80-100) Mean Corpuscular Hemoglobin 28.1 pg (25-34) Mean Corpuscular Hemoglobin Concent 31.1 g/dl (32-36) Platelet Count 239 K/uL (130-400) Mean Platelet Volume 9.0 fL (7.4-10.4) Neutrophils (%) (Auto) 71.2 % Lymphocytes (%) (Auto) 20.7 % Monocytes (%) (Auto) 4.4 % Eosinophils (%) (Auto) 2.3 % Basophils (%) (Auto) 0.3 % Neutrophils # (Auto) 5.31 K/uL (1.4-6.5) Lymphocytes # (Auto) 1.54 K/uL (1.2-3.4) Monocytes # (Auto) 0.33 K/uL (0.11-0.59) Eosinophils # (Auto) 0.17 K/uL (0-0.5) Basophils # (Auto) 0.02 K/uL (0-0.2) RDW Standard Deviation 50.0 fL (36.4-46.3) RDW Coefficient of Variation 14.9 % (11.5-14.5) Immature Granulocyte % (Auto) 1.1 % Immature Granulocyte # (Auto) 0.08 K/uL (0.00-0.02) Anion Gap 8.0 mmol/L (3-11) Est Creatinine Clear Calc Drug Dose 81.9 ml/min Estimated GFR () 100.8 Estimated GFR (Non- 87.0 BUN/Creatinine Ratio 30.3 (10-20) Calcium Level 9.1 mg/dl (8.5-10.1) Total Bilirubin 0.4 mg/dl (0.2-1) Direct Bilirubin 0.1 mg/dl (0-0.2) Aspartate Amino Transf (AST/SGOT) 19 U/L (15-37) Alanine Aminotransferase (ALT/SGPT) 26 U/L (12-78) Alkaline Phosphatase 88 U/L (45-117) Total Creatine Kinase 65 U/L (26-192) Creatine Kinase MB 4.0 ng/ml (0.5-3.6) Creatine Kinase MB Ratio 6.2 (0-3.0) Total Protein 6.1 gm/dl (6.4-8.2) Albumin 3.2 gm/dl (3.4-5.0) Lipase 129 U/L (73-393) Laboratory studies as stated above per my review. Medications Administered Medications (Trade) Dose Ordered Sig/Cyndy Route Start Time Stop Time Status Last Admin Dose Admin Albuterol/ Ipratropium (Duoneb) 3 ml NOW STAT INH 12/23/16 14:53 12/23/16 14:54 DC 12/23/16 15:21 3 ML ECG Indication: SOB/dyspnea Rate (beats per minute): 72 Rhythm: normal sinus Findings: no acute ischemic change, other (nonspecific T wave abnormality) Comparison ECG Date: August 2016 Change: T wave abnormalities now present ED Course 1439: Past medical records reviewed. The patient was evaluated in room A10, and a complete history and physical examination were performed. 1453: Duoneb 3ml INH. 1618: I reevaluated and updated the patient. 1631: Discussed the patient's case with Dr. Hernandez of [facility] [place]. The patient will be evaluated for further management. 1638: Upon reevaluation, the patient is doing well. I discussed the results and treatment plan with the patient. She verbalized agreement of the treatment plan. The patient will be evaluated for further management. 1651: I reevaluated the patient and she is currently being seen by the admitting team. Medical Decision Differential diagnosis includes COPD exacerbation, bronchitis, pneumonia, cardiac disease, PE. This patient comes in as described above. She is having a COPD exacerbation. She has had symptoms for the last week or so and not getting better as an outpatient despite having steroids and antibiotics. She was sent over from her doctor's office by the ambulance and received IV Solu-Medrol on route as well as nebs. I gave her another DuoNeb here. She does have some hypoxemia although appears much better she still does have some residual wheezing. EKG and chest x-ray multiple blood testing was obtained. She was given additional albuterol/Atrovent neb. Her chest x-ray shows what appears to be some atelectasis in the bases. She has no white count or fever to suggest infection. Her EKG has some nonspecific changes but I do not think is likely acute cardiac event. She seems resting comfortably however with her hypoxemia and outpatient failure, I do think she needs to be admitted for further inpatient treatment and evaluation of COPD exacerbation/shortness of breath Medication Reconcilliation Current Medication List: was personally reviewed by me Blood Pressure Screening Patient's blood pressure: Normal blood pressure Blood pressure disposition: Did not require urgent referral Consults Time Called: 1621 Consulting Physician: Dr. Hernandez - [facility] [place] Returned Call: 1631 Discussed the patient's case with Dr. Hernandez of [facility] [place]. The patient will be evaluated for further management. Impression Primary Impression: COPD exacerbation Additional Impressions: Bronchitis Hypoxemia Scribe Attestation The scribe's documentation has been prepared under my direction and personally reviewed by me in its entirety. I confirm that the note above accurately reflects all work, treatment, procedures, and medical decision making performed by me. Departure Information Dispostion Being Evaluated By Hospitalist Referrals Faiza Costa MD (PCP) Patient Instructions My [facility] Problem Qualifiers
[2016-12-23] MEDS ORDERED: ALBUT/IPRATROP 3MG/0.5MG NEB 3 ML VIAL INH STA (14:53)
--- NOTE | 2016-12-23 15:21 | DIAGNOSTIC IMAGING REPORT ---
CHEST ONE VIEW PORTABLE HISTORY: 76 years-old Female CHEST PAIN COMPARISON: 08/28/2016 TECHNIQUE: Portable AP view of the chest. . FINDINGS: Cardiac silhouette is upper limits of normal and unchanged. There is atherosclerosis of the aorta. There is no pneumothorax or large pleural effusion. Hazy left greater the right bibasilar opacities are noted which appear to be somewhat linear at the left lung base. The bones are grossly intact. IMPRESSION: Somewhat linear left greater than right bibasilar opacities suggest atelectasis with pneumonia thought to be less likely. The above report was generated using voice recognition software. It may contain grammatical, syntax or spelling errors. Electronically signed by: Jaylon Alcocer M.D. 12/23/2016 3:20 PM Dictated Date/Time: 12/23/2016 3:18 PM
[2016-12-23 15:52] LABS: BASO % 0.3 %; BASO ABS # 0.02 K/uL (0-0.2); COMPLETE YES; EOS % 2.3 %; HEMATOCRIT 38.3 % (37-47); IG% 1.1 %; LYMPH % 20.7 %; LYMPH ABS # 1.54 K/uL (1.2-3.4); MEAN CELL VOLUME 90.3 fL (80-100); MEAN CORPUSCULAR HEMOGLOBIN 28.1 pg (25-34); MEAN CORPUSCULAR HGB CONC 31.1 g/dl (32-36); MONO % 4.4 %; NEUT % 71.2 %; PLATELET COUNT 239 K/uL (130-400); RED BLOOD COUNT 4.24 M/uL (4.2-5.4); WHITE BLOOD COUNT 7.45 K/uL (4.8-10.8)
[2016-12-23 16:04] LABS: PARTIAL THROMBOPLASTIN RATIO 1.1; PROTHROMBIN TIME (PATIENT) 10.5 SECONDS (9.0-12.0)
[2016-12-23 16:23] LABS: BUN/CREATININE RATIO 30.3 (10-20); CALCIUM 9.1 mg/dl (8.5-10.1); CREATININE 0.62 mg/dl (0.60-1.20); POTASSIUM 3.4 mmol/L (3.5-5.1)
[2016-12-23 16:28] LABS: CKMB/CK RATIO 6.2 (0-3.0)
--- NOTE | 2016-12-23 17:44 | History and Physical ---
History & Physical Date & Time of Service: Dec 23, 2016 at 17:27 Chief Complaint: Shortness Of Breath Primary Care Physician: Faiza Costa MD History of Present Illness Source: patient 76yo female with history of COPD/asthma who presents with worsening pulmonary symptoms over 3 weeks. She has had cough, wheezing, and post-nasal drip. Seen by her PCP about 10 days ago in the office and was given IM steroids, oral prednisone, and a z-pack. She never felt better. She was using her nebs at home fairly regularly about every 4 hours. She was going to see her PCP but because she felt so poorly she simply came to the hospital for evaluation. En route to the hospital via EMS she received IV steroids and nebs. She received another neb in the ER. No fevers or chills. She smoked in the past but none at this time. Past Medical/Surgical History PMH: 1. RA 2. asthma/COPD 3. depression/anxiety 4. history of a. fib 5. prolapsed bladder 6. chronic venous insufficiency 7. hyperlipidemia 8. ? of hypothyroidism but not on medication 9. h/o MRSA 10. ? T2DM 11. ADHD 12. restless legs syndrome 13. glaucoma 14. h/o GI bleeding (upper) PSH: 1. elbow surgery - left and right 2. appendectomy 3. left TKR 4. colon surgery due to volvulus? 5. right thumb surgery 6. right ankle fracture s/p ORIF 7. fusion right ankle - 1998 8. remove hardware right ankle - 2003 9. surgery on toes - 2012 10. 2013 - right thumb surgery 11. right THR - 2014 12. back surgery - 2014 Family History asthma - brother, father, paternal aunt father - from CHF father, brother - HTN mother - age 97 - had RA and pacemaker along with melanoma Social History Smoking Status: Former Smoker (1/2 ppd x 20 years; quit years ago) Alcohol Use: socially Drug Use: none Marital Status: Housing status: lives with family Occupational Status: retired Immunizations History of Influenza Vaccine: Yes Influenza Vaccine Date: Apr 08, 2011 History of Tetanus Vaccine?: Yes Tetanus Immunization Date: Oct 31, 2003 History of Pneumococcal: Yes Pneumococcal Date: May 08, 2004 History of Hepatitis B Vaccine: Unknown Multi-Drug Resistant Organisms History of MDRO: Yes Type of MDRO: MRSA Allergies Coded Allergies: Chocolate (Verified Allergy, Mild, RASH, 08/12/15) Azithromycin (Verified Allergy, Unknown, THROAT BURNED-LOST WT, 08/12/15) Fluticasone (Verified Allergy, Unknown, FROM ADVAIR, CHEST PAIN, 08/12/15) ALLERGY TO ADVAIR Penicillins (Verified Allergy, Unknown, UNKNOWN-HAS TOLERATED ROCEPHIN IN PAST, 08/12/15) PCN ALLERGY IDENTIFIED FROM ALLERGY TESTING Procaine (Verified Allergy, Unknown, ANAPHYLAXIS/MOUTH SWELLING/SOB, ) Salmeterol (Verified Allergy, Unknown, FROM ADVAIR, CHEST PAIN., 08/12/15) ALLERGY TO ADVAIR Moxifloxacin (Verified Adverse Reaction, Unknown, NAUSEA & VOMITING, ) NSAIDs (Verified Adverse Reaction, Unknown, AVOID DUE TO ULCER HX, 08/12/15 ) Zolpidem (Verified Adverse Reaction, Unknown, SLEEP WALKING, 08/12/15) Home Medications Scheduled Amphetamine-Dextroamphetamine 15MG (Adderall Xr 15MG), 15 MG PO DAILY Amphetamine-Dextroamphetamine 30MG (Adderall Xr 30MG), 30 MG PO QAM Apixaban (Eliquis), 5 MG PO BID Aspirin (Aspirin Ec), 81 MG PO DAILY Atorvastatin (Lipitor), 40 MG PO QPM Brimonidine Tartrate (Alphagan P Oph), 1 DROP OPB Q12 Calcium Carbonate-Vitamin D (Calcium 600 + D), 1 TAB PO BID Cholecalciferol (Vitamin D 1000 Unit), 1,000 INTER.UNIT PO DAILY Clonazepam (Klonopin), 1 MG PO HS Cyanocobalamin (Vitamin B-12), 250 MCG PO DAILY Diltiazem HCl (Diltiazem HCl ER), 240 MG PO QAM Escitalopram (Lexapro), 10 MG PO DAILY Gabapentin (Gabapentin), 200 MG PO TID Lactobacillus (Acidophilus), 1 CAP PO DAILY Lamotrigine (Lamictal), 150 MG PO HS Magnesium (Magnesium), 200 MG PO Q2D Magnesium Oxide (Mg Supplement (Magnesium), 400 MG PO Q2D Montelukast Sodium (Singulair), 10 MG PO HS Multiple Vitamins W/ Minerals (One Daily For Women), 1 TAB PO DAILY Omeprazole (Prilosec), 20 MG PO BID Oxycodone/Acetaminophen 5MG/325MG (Percocet 5MG/325MG), 1 TAB PO TID Pramipexole Dihydrochloride (Mirapex), 0.5 MG PO HS Travoprost (Travatan Z), 1 DROP OPB DAILY Trazodone HCl (Trazodone HCl), 150 MG PO HS Scheduled PRN Albuterol Hfa (Ventolin Hfa), 1-2 PUFFS INH Q4-6HRS PRN for SOB/Wheezing Albuterol Sulf (Proventil 0.083% 2.5MG/3ML), 2.5 MG INH QID PRN for Wheezing Budesonide/Formoterol Fumarate (Symbicort 160/4.5 Inhaler ), 2 PUFFS INH BID PRN for SOB/Wheezing Ipratropium-Albuterol (Duoneb), 1 TREATMENT INH Q4H PRN for SOB/Wheezing Review of Systems Constitutional: No fever, No chills, No sweats, No weight loss, No fatigue Eyes: No worsening of vision ENT: + nasal symptoms (post-nasal drip), + sore throat (from recent z-pack??) Respiratory: + cough, + sputum (clear), + wheezing, + shortness of breath, + dyspnea on exertion Cardiovascular: + edema, No chest pain, No orthopnea, No PND Abdomen: + diarrhea, No pain, No nausea, No vomiting, No GI bleeding Musculoskeletal: + joint pain (due to RA) Genitourinary - Female: + urinary incontinence, No dysuria Neurologic: + problem reported (tremor at baseline - left ), No numbness/ tingling Psychiatric: + depression symptoms, + anxiety Endocrine: + fatigue Hematologic / Lymphatic: + abnormal bleeding/bruising (left arm) Integumentary: No rash Physical Exam Vital Signs Date Time Temp Pulse Resp B/P (MAP) Pulse Ox O2 Delivery O2 Flow Rate FiO2 12/23/16 16:51 78 23 90 12/23/16 16:21 73 22 92 12/23/16 16:19 127/58 12/23/16 15:51 73 27 96 12/23/16 15:21 76 24 12/23/16 14:51 86 Room Air 12/23/16 14:51 68 29 86 12/23/16 14:39 70 12/23/16 14:30 90 Room Air 12/23/16 14:25 36.8 69 24 118/64 90 Room Air 12/23/16 14:25 90 Room Air General Appearance: + mild distress (coughing, audible wheezing, mild tachypnea but able to speak in full sentences) Head: normocephalic, atraumatic Eyes: + pertinent finding (right pupil is larger than left pupil but both reactive; cataract shadows b/l ) ENT: + pertinent finding (angular cheilitis of corners of mouth; ?early thrush in oral cavity) Neck: supple, no adenopathy, thyroid normal, no JVD Respiratory/Chest: + crackles (both bases, mild, left a little worse), + rhonchi (occasional ), + wheezing (diffuse b/l) Cardiovascular: regular rate, rhythm, no gallop, no murmur, normal peripheral pulses Abdomen/GI: normal bowel sounds, non tender, soft, no organomegaly Extremities/Musculoskelatal: + pedal edema, + pertinent finding (feet with deformities) Neurologic/Psych: no motor/sensory deficits, alert, normal mood/affect, normal reflexes, oriented x 3 Skin: no rash Lymphatic: no adenopathy (cervical ) Diagnostics Laboratory Results Results Past 24 Hours Test 12/23/16 15:27 12/23/16 15:28 Range/Units Prothrombin Time 10.5 9.0-12.0 SECONDS Prothromb Time International Ratio 1.0 0.9-1.1 Activated Partial Thromboplast Time 28.9 21.0-31.0 SECONDS Partial Thromboplastin Ratio 1.1 White Blood Count 7.45 4.8-10.8 K/uL Red Blood Count 4.24 4.2-5.4 M/uL Hemoglobin 11.9 12.0-16.0 g/dL Hematocrit 38.3 37-47 % Mean Corpuscular Volume 90.3 80-100 fL Mean Corpuscular Hemoglobin 28.1 25-34 pg Mean Corpuscular Hemoglobin Concent 31.1 32-36 g/dl Platelet Count 239 130-400 K/uL Mean Platelet Volume 9.0 7.4-10.4 fL Neutrophils (%) (Auto) 71.2 % Lymphocytes (%) (Auto) 20.7 % Monocytes (%) (Auto) 4.4 % Eosinophils (%) (Auto) 2.3 % Basophils (%) (Auto) 0.3 % Neutrophils # (Auto) 5.31 1.4-6.5 K/uL Lymphocytes # (Auto) 1.54 1.2-3.4 K/uL Monocytes # (Auto) 0.33 0.11-0.59 K/uL Eosinophils # (Auto) 0.17 0-0.5 K/uL Basophils # (Auto) 0.02 0-0.2 K/uL RDW Standard Deviation 50.0 36.4-46.3 fL RDW Coefficient of Variation 14.9 11.5-14.5 % Immature Granulocyte % (Auto) 1.1 % Immature Granulocyte # (Auto) 0.08 0.00-0.02 K/uL Sodium Level 143 136-145 mmol/L Potassium Level 3.4 3.5-5.1 mmol/L Chloride Level 106 98-107 mmol/L Carbon Dioxide Level 29 21-32 mmol/L Anion Gap 8.0 3-11 mmol/L Blood Urea Nitrogen 19 7-18 mg/dl Creatinine 0.62 0.60-1.20 mg/dl Est Creatinine Clear Calc Drug Dose 81.9 ml/min Estimated GFR () 100.8 Estimated GFR (Non- 87.0 BUN/Creatinine Ratio 30.3 10-20 Random Glucose 109 70-99 mg/dl Calcium Level 9.1 8.5-10.1 mg/dl Total Bilirubin 0.4 0.2-1 mg/dl Direct Bilirubin 0.1 0-0.2 mg/dl Aspartate Amino Transf (AST/SGOT) 19 15-37 U/L Alanine Aminotransferase (ALT/SGPT) 26 12-78 U/L Alkaline Phosphatase 88 45-117 U/L Total Creatine Kinase 65 26-192 U/L Creatine Kinase MB 4.0 0.5-3.6 ng/ml Creatine Kinase MB Ratio 6.2 0-3.0 Total Protein 6.1 6.4-8.2 gm/dl Albumin 3.2 3.4-5.0 gm/dl Lipase 129 73-393 U/L Microbiology Results 12/23/16 Blood Culture, Received Pending 12/23/16 Blood Culture, Received Pending Diagnostic Radiology cxr - IMPRESSION: Somewhat linear left greater than right bibasilar opacities suggest atelectasis with pneumonia thought to be less likely. Impression Assessment and Plan 76yo female with COPD/asthma, paroxysmal a. fib on chronic anticoagulation, ADHD , depression/anxiety, RA & chronic pain syndrome presenting with acute hypoxic respiratory failure 2nd to COPD exacerbation with possible early pneumonia. 1. acute hypoxic resp failure 2nd to COPD exacerbation - solumedrol 40mg IV q6h. Nebs. Inhalers. Mucinex. Pulmonary toilet. O2 to keep sats in low 90s. NO evidence of complicating CHF. 2. possible b/l pneumonia - rocephin/doxycycline (latter for atypicals). Follow blood cultures. 3. h/o PAF - place on telemetry. Continue AV imer agents. Continue eliquis. 4. Rheumatoid arthritis with chronic pain syndrome - her RA appears "burned out." [id number] she is on chronic percocet - 1 tab at 0600, noon, and 1800. 5. glaucoma - continue home drops. 6. DVT proph - eliquis. 7. thrush - magic mouthwash ac/hs. 8. hypokalemia - replace; replete low mag as well. 9. hypomagnesemia - replace with IV mag 2 grams; repeat K and mag levels in am. 10. ADHD - patient takes adderall xr chronically. She brought her home stock. 11. depression/anxiety - continue all home medications as previous. 12. ? h/o T2DM and hypothyroidism - check TSH and hemoglobin a1c in am. Level of Care Telemetry Resuscitation Status FULL RESUSCITATION VTE Prophylaxis Risk Level: Low Given or contraindicated: Other Anticoagulation Note total time about 70 minutes Additional Copies To Faiza Costa MD
[2016-12-23] MEDS ORDERED: POTASSIUM CHLORIDE 10 MEQ TABCR PO STA (17:45)
[2016-12-23] MEDS ORDERED: MAGNESIUM SULFATE 1GM / D5W 1 GM BAG IV STA (18:13)
[2016-12-23] MEDS ORDERED: ONDANSETRON INJ 2 MG/ML 2 ML VIAL IV PRN (18:15)
[2016-12-23] MEDS ORDERED: ALUMINUM/MAGNESIUM/SIMETH (MAALOX MAX) 30 ML UDC PO PRN (18:15)
[2016-12-23] MEDS ORDERED: ACETAMINOPHEN 325 MG TAB PO PRN (18:15)
[2016-12-23] MEDS ORDERED: NON-FORMULARY MEDICATION SCH (18:15)
[2016-12-23] MEDS ORDERED: MAGNESIUM SULFATE 1GM / D5W 1 GM BAG ONE (18:22)
--- NOTE | 2016-12-23 18:33 | Medical Student: [facility] ---
Med Student History & Physical Date & Time of Service: Dec 23, 2016 at 17:21 Chief Complaint: Shortness Of Breath Primary Care Physician: Faiza Costa MD History of Present Illness Source: patient Jigna Alves is a 76 yo female, with PMHx of asthma, RA, depression, atrial fibrillation, and hx of MRSA infection while in the hospital, presented via EMS complaining of "cold-like" symptoms, with associated dry cough, shortness of breath, and wheezing for the past 3 weeks. Patient states she saw her PCP on 12/13, who prescribed her Salmeterol IM, PO prednisone, and PO Z-nataly ( finished on 12/19). She states she has used her symbacort nebulizer "4 hours a day," with some relief of shortness of breath at rest. Patient states she followed-up with her PCP on 12/20, with some improvement of symptoms, attributed to nebulizer treatments; patient reports PCP adding another medication to her nebulizer treatments, but denies knowning what it was called. Patient was supposed to follow-up with PCP today in the office, but patient states she was not feeling better and she knew her PCP would send her to ED, so she came here first. At baseline, patient reports taking Singular daily and her albuterol inhaler as needed (previously to "cold" symptoms only used once every 4 months, but been using 2x per day for last few weeks). Patient notes associated symptom of fatigue. Patient denies using oxygen at home. Additionally, patient notes sore throat, which she thinks is from taking the Z- nataly (history of allergy to azithromycin). She also notes associated symptoms of diarrhea (secondary to magnesium supplement) and joint/generalized extremity pain (secondary to RA at baseline). Past Medical/Surgical History PMHx: -asthma/COPD -depression/anxiety -atrial fibrillation -RA -prolapsed bladder -chronic venous insufficiency -history of MRSA -ADHD -glaucoma/cataracts -hyperlipidemia -hypothyroidism -hx of borderline T2DM -restless leg syndrome -hypomagnesium PSHx: -elbow surgery - left and right -appendectomy -left total knee replacement -colon surgery (strangulation?) -right thumb surgery -right ankle fracture s/p ORIF -fusion right ankle - 1998 -remove hardware right ankle - 2003 -surgery on toes - 2012 -right thumb surgery - 2014 -right total hip replacement - 2015 -back surgery - 2015 Family History Father: asthma, HTN, congestive heart failure Mother: heart disease (pacemaker), cancer (malignant melanoma) Sibling(s): asthma (brother), HTN (brother) Other: asthma (aunt (father's sister)) Social History Smoking Status: Former Smoker (1/2 ppd for 20 years, quit 5 years ago) Alcohol Use: socially (special occassions (1x/3mo)) Drug Use: none Marital Status: 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) Immunizations History of Influenza Vaccine: Yes Influenza Vaccine Date: Apr 08, 2011 History of Tetanus Vaccine?: Yes Tetanus Immunization Date: Oct 31, 2003 History of Pneumococcal: Yes Pneumococcal Date: May 08, 2004 History of Hepatitis B Vaccine: Unknown Allergies Coded Allergies: Chocolate (Verified Allergy, Mild, RASH, 08/12/15) Azithromycin (Verified Allergy, Unknown, THROAT BURNED-LOST WT, 08/12/15) Fluticasone (Verified Allergy, Unknown, FROM ADVAIR, CHEST PAIN, 08/12/15) ALLERGY TO ADVAIR Penicillins (Verified Allergy, Unknown, UNKNOWN-HAS TOLERATED ROCEPHIN IN PAST, 08/12/15) PCN ALLERGY IDENTIFIED FROM ALLERGY TESTING Procaine (Verified Allergy, Unknown, ANAPHYLAXIS/MOUTH SWELLING/SOB, ) Salmeterol (Verified Allergy, Unknown, FROM ADVAIR, CHEST PAIN., 08/12/15) ALLERGY TO ADVAIR Moxifloxacin (Verified Adverse Reaction, Unknown, NAUSEA & VOMITING, ) NSAIDs (Verified Adverse Reaction, Unknown, AVOID DUE TO ULCER HX, 08/12/15 ) Zolpidem (Verified Adverse Reaction, Unknown, SLEEP WALKING, 08/12/15) Medications Albuterol Hfa (Ventolin Hfa), 1-2 PUFFS INH Q4-6HRS PRN for SOB/Wheezing Albuterol Sulf (Proventil 0.083% 2.5MG/3ML), 2.5 MG INH QID PRN for Wheezing Amphetamine-Dextroamphetamine 15MG (Adderall Xr 15MG), 15 MG PO DAILY Amphetamine-Dextroamphetamine 30MG (Adderall Xr 30MG), 30 MG PO QAM Apixaban (Eliquis), 5 MG PO BID Aspirin (Aspirin Ec), 81 MG PO DAILY Atorvastatin (Lipitor), 40 MG PO QPM Brimonidine Tartrate (Alphagan P Oph), 1 DROP OPB Q12 Budesonide/Formoterol Fumarate (Symbicort 160/4.5 Inhaler ), 2 PUFFS INH BID PRN for SOB/Wheezing Calcium Carbonate-Vitamin D (Calcium 600 + D), 1 TAB PO BID Cholecalciferol (Vitamin D 1000 Unit), 1,000 INTER.UNIT PO DAILY Clonazepam (Klonopin), 1 MG PO HS Cyanocobalamin (Vitamin B-12), 250 MCG PO DAILY Diltiazem HCl (Diltiazem HCl ER), 240 MG PO QAM Escitalopram (Lexapro), 10 MG PO DAILY Gabapentin (Gabapentin), 200 MG PO TID Ipratropium-Albuterol (Duoneb), 1 TREATMENT INH Q4H PRN for SOB/Wheezing Lactobacillus (Acidophilus), 1 CAP PO DAILY Lamotrigine (Lamictal), 150 MG PO HS Magnesium (Magnesium), 200 MG PO Q2D Magnesium Oxide (Mg Supplement (Magnesium), 400 MG PO Q2D Montelukast Sodium (Singulair), 10 MG PO HS Multiple Vitamins W/ Minerals (One Daily For Women), 1 TAB PO DAILY Omeprazole (Prilosec), 20 MG PO BID Oxycodone/Acetaminophen 5MG/325MG (Percocet 5MG/325MG), 1 TAB PO TID Pramipexole Dihydrochloride (Mirapex), 0.5 MG PO HS Travoprost (Travatan Z), 1 DROP OPB DAILY Trazodone HCl (Trazodone HCl), 150 MG PO HS Review of Systems Constitutional: + fatigue, No fever, No chills, No weight loss (increased appetite secondary to predisone) Eyes: No worsening of vision, No redness ENT: No hearing loss (not above baseline) Respiratory: + cough, + sputum (occassional, clear), + wheezing, + shortness of breath, + dyspnea on exertion, No dyspnea at rest (resolved some since beginning nebulizer treatment 12/13/16), No hemoptysis Cardiovascular: + edema, No chest pain, No palpitations Abdomen: + diarrhea (at baseline, secondary to magnesium supplement), No pain, No nausea, No vomiting, No constipation Musculoskeletal: No joint pain (at baseline for RA), No swelling (right knee swelling at baseline, awaiting knee replacement) Genitourinary - Female: + urinary incontinence (at baseline for prolapsed bladder), No dysuria Neurologic: + problem reported (tremor of right hand at baseline), No memory loss Psychiatric: + depression symptoms, + anxiety Endocrine: + fatigue Hematologic / Lymphatic: + abnormal bleeding/bruising (some brusing on left forearm) Integumentary: No rash, No itch Allergic / Immunologic: + food allergies (chocolate) Physical Exam Vital Signs (24 Hours) Date Time Temp Pulse Resp B/P (MAP) Pulse Ox O2 Delivery O2 Flow Rate FiO2 12/23/16 16:51 78 23 90 12/23/16 16:21 73 22 92 12/23/16 16:19 127/58 12/23/16 15:51 73 27 96 12/23/16 15:21 76 24 12/23/16 14:51 86 Room Air 12/23/16 14:51 68 29 86 12/23/16 14:39 70 12/23/16 14:30 90 Room Air 12/23/16 14:25 36.8 69 24 118/64 90 Room Air 12/23/16 14:25 90 Room Air General Appearance: WD/WN, no apparent distress Head: normocephalic, atraumatic Eyes: PERRL, sclerae normal, + pertinent finding (right pupil larger than left , no previous eye surgery) ENT: normal ENT inspection, hearing grossly normal, TMs normal, + nasal congestion, + nasal drainage, + pertinent finding (white plaque on midline of tongue) Neck: supple, no adenopathy, thyroid normal, no JVD, + pertinent finding ( chronic neck pain of right side limiting range of motion) Respiratory/Chest: chest non-tender, no accessory muscle use, + crackles (left lower base), + wheezing (inspiratory heard without stethoscope, bilateral wheezes, right>left, with right lower lobe worst), + pertinent finding (dry, forceful cough) Cardiovascular: regular rate, rhythm (no atrial fibrillation appreciated), no JVD, no murmur, normal peripheral pulses Abdomen/GI: normal bowel sounds, non tender, soft, no organomegaly, + pertinent finding (old scars from previous abdominal surgeries) Back: normal inspection, no muscle spasm Extremities/Musculoskelatal: normal inspection, no calf tenderness, normal range of motion, non-tender, + pedal edema (slight edema on left corey) Neurologic/Psych: no motor/sensory deficits, alert, normal mood/affect, normal reflexes, oriented x 3 Skin: normal color, warm/dry, no rash Lymphatic: no adenopathy Diagnostics Laboratory Results Results Past 24 Hours Test 12/23/16 15:27 12/23/16 15:28 Range/Units Prothrombin Time 10.5 9.0-12.0 SECONDS Prothromb Time International Ratio 1.0 0.9-1.1 Activated Partial Thromboplast Time 28.9 21.0-31.0 SECONDS Partial Thromboplastin Ratio 1.1 White Blood Count 7.45 4.8-10.8 K/uL Red Blood Count 4.24 4.2-5.4 M/uL Hemoglobin 11.9 12.0-16.0 g/dL Hematocrit 38.3 37-47 % Mean Corpuscular Volume 90.3 80-100 fL Mean Corpuscular Hemoglobin 28.1 25-34 pg Mean Corpuscular Hemoglobin Concent 31.1 32-36 g/dl Platelet Count 239 130-400 K/uL Mean Platelet Volume 9.0 7.4-10.4 fL Neutrophils (%) (Auto) 71.2 % Lymphocytes (%) (Auto) 20.7 % Monocytes (%) (Auto) 4.4 % Eosinophils (%) (Auto) 2.3 % Basophils (%) (Auto) 0.3 % Neutrophils # (Auto) 5.31 1.4-6.5 K/uL Lymphocytes # (Auto) 1.54 1.2-3.4 K/uL Monocytes # (Auto) 0.33 0.11-0.59 K/uL Eosinophils # (Auto) 0.17 0-0.5 K/uL Basophils # (Auto) 0.02 0-0.2 K/uL RDW Standard Deviation 50.0 36.4-46.3 fL RDW Coefficient of Variation 14.9 11.5-14.5 % Immature Granulocyte % (Auto) 1.1 % Immature Granulocyte # (Auto) 0.08 0.00-0.02 K/uL Sodium Level 143 136-145 mmol/L Potassium Level 3.4 3.5-5.1 mmol/L Chloride Level 106 98-107 mmol/L Carbon Dioxide Level 29 21-32 mmol/L Anion Gap 8.0 3-11 mmol/L Blood Urea Nitrogen 19 7-18 mg/dl Creatinine 0.62 0.60-1.20 mg/dl Est Creatinine Clear Calc Drug Dose 81.9 ml/min Estimated GFR () 100.8 Estimated GFR (Non- 87.0 BUN/Creatinine Ratio 30.3 10-20 Random Glucose 109 70-99 mg/dl Calcium Level 9.1 8.5-10.1 mg/dl Total Bilirubin 0.4 0.2-1 mg/dl Direct Bilirubin 0.1 0-0.2 mg/dl Aspartate Amino Transf (AST/SGOT) 19 15-37 U/L Alanine Aminotransferase (ALT/SGPT) 26 12-78 U/L Alkaline Phosphatase 88 45-117 U/L Total Creatine Kinase 65 26-192 U/L Creatine Kinase MB 4.0 0.5-3.6 ng/ml Creatine Kinase MB Ratio 6.2 0-3.0 Total Protein 6.1 6.4-8.2 gm/dl Albumin 3.2 3.4-5.0 gm/dl Lipase 129 73-393 U/L Microbiology Results 12/23/16 Blood Culture, Received Pending 12/23/16 Blood Culture, Received Pending Diagnostic Radiology CHEST ONE VIEW PORTABLE HISTORY: 76 years-old Female CHEST PAIN COMPARISON: 08/28/2016 TECHNIQUE: Portable AP view of the chest. . FINDINGS: Cardiac silhouette is upper limits of normal and unchanged. There is atherosclerosis of the aorta. There is no pneumothorax or large pleural effusion. Hazy left greater the right bibasilar opacities are noted which appear to be somewhat linear at the left lung base. The bones are grossly intact. IMPRESSION: Somewhat linear left greater than right bibasilar opacities suggest atelectasis with pneumonia thought to be less likely. Impression Assessment and Plan Jigna Alves is a 76 yo female, with PMHx penitent for asthma/COPD, atrial fibrillation, RA, and depression, presented to the ED via EMS with acute exacerbation of asthma/COPD. For the last 3 weeks, patient has complained of cough, nasal congestion, shortness of breath with activity and associated wheezing; she was treated by her PCP with a JOEC (albuterol), LABA (salmeterol) , oral steroids, and antibiotics (azithromycin), without significant improvement. Plan: Asthma/COPD - Pulmonary function tests, incentive spirometry - Duoneb (Ipratropium-Albuterol) 3 Ml Nebu 1 Treatment INH Q4H PRN - Continue 2L oxygen, monitor oxygen saturation - Chest x-ray showed "Somewhat linear left greater than right bibasilar opacities suggest atelectasis with pneumonia thought to be less likely." Consider adding antibiotic treatment if not showing clinical improvement during hospital stay. - Check hemoglobin A1c in the morning from history of pre-diabetes and recent steroid use. - Continue home medications (Singulair (Montelukast Sodium) 10 Mg Tab 10 Mg PO HS, Symbicort 160/4.5 Inhaler (Budesonide/Formoterol Fumarate) Aero 2 Puffs INH BID PRN, Ventolin Hfa (Albuterol) 200 Puffs/26454 Mcg Aers 1-2 Puffs INH Q4- 6HRS PRN, Proventil 0.083% 2.5MG/3ML (Albuterol Sulf) 2.5 Mg/3 Ml Nebu 2.5 Mg INH QID PRN) Atrial fibrillation - Check TSH, potassium, and magnesium levels in the morning - Continue home medications (Diltiazem HCl ER (Diltiazem HCl) 120 Mg Caper 240 Mg PO QAM, Eliquis (Apixaban) 5 Mg Tab 5 Mg PO BID, Aspirin Ec (Aspirin) 81 Mg Tab 81 Mg PO DAILY) - EKG PRN if symptom of chest pain develops Rheumatoid arthritis with chronic pain - Continue home medications for pain (Percocet 5MG/325MG (Oxycodone/ Acetaminophen) Tab 1 Tab PO TID PAIN, Klonopin (Clonazepam) 1 Mg Tab 1 Mg PO HS ) - Continue at home medications (Vitamin D 1000 Unit (Cholecalciferol) 1,000 Unit Cap 1,000 Inter.unit PO DAILY, One Daily For Women (Multiple Vitamins W/ Minerals) 1 Tab Tab 1 Tab PO DAILY, Vitamin B-12 (Cyanocobalamin) 250 Mcg Tab 250 Mcg PO DAILY, Calcium 600 + D (Calcium Carbonate-Vitamin D) 1 Tab Tab 1 Tab PO BID) Hypomagnesium - Continue home medications (Magnesium 200 Mg Tab 200 Mg PO Q2D ALTERNATE WITH 400MG, Magnesium (Magnesium Oxide (Mg Supplement) 400 Mg Cap 400 Mg PO Q2D ALTERNATE WITH 200MG) Hyperlipidemia - Continue home medications (Lipitor (Atorvastatin Calcium) 40 Mg Tab 40 Mg PO QPM) Depression, not otherwise specified - Continue home medications (Lamictal (Lamotrigine) 150 Mg Tab 150 Mg PO HS, Lexapro (Escitalopram Oxalate) 10 Mg Tab 10 Mg PO DAILY, Trazodone HCl 150 Mg Tab 150 Mg PO HS) ADHD - Continue home medications (Adderall Xr 15MG (Amphetamine-Dextroamphetamine 15MG) 1 Cap Cap 15 Mg PO DAILY take at 1200, Adderall Xr 30MG (Amphetamine- Dextroamphetamine 30MG) 1 Cap Cap 30 Mg PO QAM) Glaucoma - Continue home medications (Travatan Z (Travoprost) 0.004 % Yfn 1 Drop OPB DAILY, Alphagan P Oph (Brimonidine Tartrate) 0.1 % Mary 1 Drop OPB Q12) Restless leg syndrome - Continue home medications (Gabapentin 100 Mg Cap 200 Mg PO TID TAKE IN MORNING AND AT NOON & HS, Mirapex (Pramipexole Dihydrochloride) 0.5 Mg Tab 0.5 Mg PO HS) Acid reflux - Continue home medications (Prilosec (Omeprazole) 20 Mg Capcr 20 Mg PO BID, Acidophilus (Lactobacillus) 1 Cap Cap 1 Cap PO DAILY) Level of Care Telemetry Resuscitation Status FULL RESUSCITATION DVT Prophylaxis other (continue home medication (Eliquis (Apixaban) 5 Mg Tab 5 Mg PO BID))
[2016-12-23 19:30] VITALS: O2SAT 93; Ht 165.1 cm; Wt 83.0 kg
[2016-12-23] MEDS: ALBUT/IPRATROP 3MG/0.5MG NEB 3 ML VIAL INH SCH ×2 (20:00→23:16)
[2016-12-23] MEDS ORDERED: NURSING VERBAL MED ORDER ONE (20:15)
[2016-12-23] MEDS ORDERED: OXYCODONE/ACETAMINOPHEN 5-325 TAB PO ONE (20:30)
[2016-12-23] MEDS: METHYLPREDNISOLONE IV 40 MG in SYRINGE 0 ML IV SCH (20:35)
[2016-12-23] MEDS: DEXAMETHASONE CONC SOLN 3.75 MG, NYSTATIN SUSP 30 ML, DiphenhydrAMINE HCL SYRUP 300 MG,... PO SCH ×5 (21:00)
[2016-12-23] MEDS ORDERED: MAGIC MOUTHWASH PO SCH (21:00)
[2016-12-23] MEDS: ATORVASTATIN 40 MG TAB PO SCH (21:26)
[2016-12-23] MEDS: BUDESONIDE/FORMOTEROL FUMARATE 160/4.5 60 PUFFS/INHALER INH SCH (21:26)
[2016-12-23] MEDS: MONTELUKAST SOD 10 MG TAB PO SCH (21:27)
[2016-12-23] MEDS: TRAZODONE HCL 100 MG TAB PO SCH (21:28)
[2016-12-23] MEDS: APIXABAN 2.5 MG TAB PO SCH (21:28)
[2016-12-23] MEDS: PRAMIPEXOLE DIHYDROCHLORIDE 0.5 MG TAB PO SCH (21:28)
[2016-12-23] MEDS: GABAPENTIN 100 MG CAP PO SCH (21:29)
[2016-12-23] MEDS: PANTOprazole SOD 40 MG TAB PO SCH (21:29)
[2016-12-23] MEDS: CLONAZEPAM 1 MG TAB PO SCH (21:34)
[2016-12-23] MEDS: DOXYCYCLINE HYCLATE 100 MG CAP PO SCH (23:03)
[2016-12-23] MEDS: CEFTRIAXONE SOD INJ 1 GM in DEXTROSE 5% ADD-VANTAGE 50ML 50 ML IV SCH (23:04)
[2016-12-23 23:19] VITALS: PULSE 72; O2SAT 98
[2016-12-23 23:32] VITALS: BP 99/43; PULSE 76; TEMP 36.8; O2SAT 94
[2016-12-24] VITALS (18 sets, daily range): BP systolic 104–136; BP diastolic 53–71; PULSE 73–92; TEMP 36.4–37; O2SAT 91–98
[2016-12-24] MEDS: METHYLPREDNISOLONE IV 40 MG in SYRINGE 0 ML IV SCH ×2 (02:29→13:59)
[2016-12-24] MEDS: ALBUT/IPRATROP 3MG/0.5MG NEB 3 ML VIAL INH SCH ×6 (03:45→23:07)
[2016-12-24] MEDS: AMPHETAMINE-DEXTROAMPHETAMINE 30 MG CAP PO SCH (05:52)
[2016-12-24] MEDS: DEXAMETHASONE CONC SOLN 3.75 MG, NYSTATIN SUSP 30 ML, DiphenhydrAMINE HCL SYRUP 300 MG,... PO SCH ×20 (05:54→20:22)
[2016-12-24] MEDS: OXYCODONE/ACETAMINOPHEN 5-325 TAB PO SCH ×3 (05:54→17:39)
[2016-12-24 07:06] LABS: BUN/CREATININE RATIO 22.5 (10-20); CALCIUM 9.4 mg/dl (8.5-10.1); CREATININE 0.67 mg/dl (0.60-1.20); MAGNESIUM 1.9 mg/dl (1.8-2.4); POTASSIUM 4.3 mmol/L (3.5-5.1)
[2016-12-24 07:07] LABS: ESTIMATED AVERAGE GLUCOSE 128 mg/dl; HA1C FLAG Normal (Normal)
[2016-12-24 07:13] LABS: THYROID STIMULATING HORMONE 0.186 uIu/ml (0.300-4.500)
--- NOTE | 2016-12-24 07:32 | Progress Note ---
Subjective Date of Service: Dec 24, 2016. Subjective pt states she just was not getting better with attempts at outpt treatment of her copd, she tired IM steroids and taper po, remains fairly significantly short of breath, now has slight improvement Problem List Medical Problems: (1) Bronchitis Status: Acute (2) Chronic obstructive pulmonary disease Status: Acute (3) Failure of outpatient treatment Status: Acute (4) Hypokalemia Status: Acute (5) Hypoxemia Status: Acute (6) Shortness of breath Status: Acute Review of Systems Constitutional: No fever, No chills Respiratory: + cough, + sputum, + wheezing, + shortness of breath, + dyspnea on exertion, + dyspnea at rest Cardiac: No chest pain, No edema Abdomen: No pain, No nausea, No vomiting, No diarrhea Female : No dysuria, No urinary frequency Psychiatric: No depression symptoms, No anhedonism Objective Vital Signs Date Time Temp Pulse Resp B/P (MAP) Pulse Ox O2 Delivery O2 Flow Rate FiO2 12/24/16 04:00 95 Nasal Cannula 2.0 12/24/16 03:45 84 16 95 Nasal Cannula 2.0 12/24/16 03:21 36.6 76 21 119/62 (81) 93 Nasal Cannula 2.0 12/24/16 00:00 94 Room Air 2.0 12/23/16 23:32 36.8 76 18 99/43 (61) 94 Nasal Cannula 2.0 12/23/16 23:19 72 16 98 Nasal Cannula 2.0 12/23/16 19:30 93 Nasal Cannula 2.0 12/23/16 19:22 36.8 83 23 127/58 92 12/23/16 18:30 83 12/23/16 17:56 79 23 92 12/23/16 17:26 77 17 92 12/23/16 16:56 80 22 91 12/23/16 16:51 78 23 90 12/23/16 16:21 73 22 92 12/23/16 16:19 127/58 12/23/16 15:51 73 27 96 12/23/16 15:21 76 24 12/23/16 14:51 86 Room Air 12/23/16 14:51 68 29 86 12/23/16 14:39 70 12/23/16 14:30 90 Room Air 12/23/16 14:25 36.8 69 24 118/64 90 Room Air 12/23/16 14:25 90 Room Air Physical Exam General Appearance: WD/WN, + moderate distress Neck: supple, no JVD Respiratory/Chest: + respiratory distress, + decreased breath sounds, + accessory muscle use, + rhonchi, + wheezing Cardiovascular: regular rate, rhythm, no murmur Abdomen: normal bowel sounds, non tender, soft Neurologic/Psychiatric: alert, oriented x 3 Laboratory Results Last 24 Hours Test 12/23/16 15:27 12/23/16 15:28 12/23/16 15:45 12/24/16 05:44 Prothrombin Time 10.5 SECONDS Prothromb Time International Ratio 1.0 Activated Partial Thromboplast Time 28.9 SECONDS Partial Thromboplastin Ratio 1.1 White Blood Count 7.45 K/uL Red Blood Count 4.24 M/uL Hemoglobin 11.9 g/dL Hematocrit 38.3 % Mean Corpuscular Volume 90.3 fL Mean Corpuscular Hemoglobin 28.1 pg Mean Corpuscular Hemoglobin Concent 31.1 g/dl Platelet Count 239 K/uL Mean Platelet Volume 9.0 fL Neutrophils (%) (Auto) 71.2 % Lymphocytes (%) (Auto) 20.7 % Monocytes (%) (Auto) 4.4 % Eosinophils (%) (Auto) 2.3 % Basophils (%) (Auto) 0.3 % Neutrophils # (Auto) 5.31 K/uL Lymphocytes # (Auto) 1.54 K/uL Monocytes # (Auto) 0.33 K/uL Eosinophils # (Auto) 0.17 K/uL Basophils # (Auto) 0.02 K/uL RDW Standard Deviation 50.0 fL RDW Coefficient of Variation 14.9 % Immature Granulocyte % (Auto) 1.1 % Immature Granulocyte # (Auto) 0.08 K/uL Sodium Level 143 mmol/L 142 mmol/L Potassium Level 3.4 mmol/L 4.3 mmol/L Chloride Level 106 mmol/L 106 mmol/L Carbon Dioxide Level 29 mmol/L 27 mmol/L Anion Gap 8.0 mmol/L 9.0 mmol/L Blood Urea Nitrogen 19 mg/dl 15 mg/dl Creatinine 0.62 mg/dl 0.67 mg/dl Est Creatinine Clear Calc Drug Dose 81.9 ml/min 74.3 ml/min Estimated GFR () 100.8 98.3 Estimated GFR (Non- 87.0 84.8 BUN/Creatinine Ratio 30.3 22.5 Random Glucose 109 mg/dl 183 mg/dl Calcium Level 9.1 mg/dl 9.4 mg/dl Total Bilirubin 0.4 mg/dl Direct Bilirubin 0.1 mg/dl Aspartate Amino Transf (AST/SGOT) 19 U/L Alanine Aminotransferase (ALT/SGPT) 26 U/L Alkaline Phosphatase 88 U/L Total Creatine Kinase 65 U/L Creatine Kinase MB 4.0 ng/ml Creatine Kinase MB Ratio 6.2 Total Protein 6.1 gm/dl Albumin 3.2 gm/dl Lipase 129 U/L Magnesium Level 1.7 mg/dl 1.9 mg/dl Estimated Average Glucose 128 mg/dl Hemoglobin A1c 6.1 % Thyroid Stimulating Hormone (TSH) 0.186 uIu/ml Assessment and Plan 76F with acute hypoxic respiratory failure 2nd to COPD exacerbation with possible early pneumonia. History of paroxysmal a. fib on chronic anticoagulation, ADHD, depression/anxiety, RA & chronic pain syndrome Acute hypoxic resp failure 2nd to COPD exacerbation - solumedrol 40mg IV q12h. Inhaled medication will add formoterol as not inhaling mdi well, Mucinex., supplemental oxygen b/l pneumonia - rocephin/doxycycline PAF diltiazem and eliquis. Rheumatoid arthritis with chronic pain syndrome - chronic percocet tid DVT proph - eliquis. ADHD - patient takes adderall xr chronically. for depression lexapro
[2016-12-24] MEDS: GABAPENTIN 100 MG CAP PO SCH ×3 (07:59→20:12)
[2016-12-24] MEDS: DILTIAZEM HCL 120 MG ER CAP PO SCH (07:59)
[2016-12-24] MEDS: APIXABAN 2.5 MG TAB PO SCH ×2 (08:00→20:13)
[2016-12-24] MEDS: DOXYCYCLINE HYCLATE 100 MG CAP PO SCH ×2 (08:00→20:14)
[2016-12-24] MEDS: LACTOBACILLUS ACIDOPHILUS (FLORANEX) TAB PO SCH ×3 (08:01→16:15)
[2016-12-24] MEDS: PANTOprazole SOD 40 MG TAB PO SCH ×2 (08:01→20:12)
[2016-12-24] MEDS: CHOLECALCIFEROL 1000 INTER.UNIT TAB PO SCH (08:02)
[2016-12-24] MEDS: MAGNESIUM OXIDE 400 MG TAB PO SCH (08:02)
[2016-12-24] MEDS: ASPIRIN 81 MG ECTAB PO SCH (08:03)
[2016-12-24] MEDS: CYANOCOBALAMIN 500 MCG TAB (VIT B-12) PO SCH (08:05)
[2016-12-24] MEDS: CEROVITE ADV FORMULA TAB PO SCH (08:05)
[2016-12-24] MEDS: ESCITALOPRAM OXALATE 10 MG TAB PO SCH (08:06)
[2016-12-24] MEDS: BUDESONIDE/FORMOTEROL FUMARATE 160/4.5 60 PUFFS/INHALER INH SCH (08:07)
[2016-12-24] MEDS: TRAVOPROST Z 0.004% OPH SOLN 2.5 ML BTL OPB SCH (08:08)
[2016-12-24] MEDS: AMPHETAMINE DEXTROAMPHETAMINE PO SCH (11:42)
[2016-12-24] MEDS: FORMOTEROL FUMA NEBULIZER SOLN 20 MCG/2 ML VIAL INH SCH (19:32)
[2016-12-24] MEDS: ATORVASTATIN 40 MG TAB PO SCH (20:12)
[2016-12-24] MEDS: PRAMIPEXOLE DIHYDROCHLORIDE 0.5 MG TAB PO SCH (20:12)
[2016-12-24] MEDS: MONTELUKAST SOD 10 MG TAB PO SCH (20:12)
[2016-12-24] MEDS: TRAZODONE HCL 100 MG TAB PO SCH (20:15)
[2016-12-24] MEDS: CLONAZEPAM 1 MG TAB PO SCH (20:22)
[2016-12-24] MEDS: CEFTRIAXONE SOD INJ 1 GM in DEXTROSE 5% ADD-VANTAGE 50ML 50 ML IV SCH (22:16)
[2016-12-25] VITALS (12 sets, daily range): BP systolic 117–152; BP diastolic 61–73; PULSE 76–90; TEMP 36.2–37.1; O2SAT 92–97
[2016-12-25] MEDS: METHYLPREDNISOLONE IV 40 MG in SYRINGE 0 ML IV SCH ×2 (02:44→13:46)
[2016-12-25] MEDS: ALBUT/IPRATROP 3MG/0.5MG NEB 3 ML VIAL INH SCH ×6 (03:31→23:29)
[2016-12-25] MEDS: AMPHETAMINE-DEXTROAMPHETAMINE 30 MG CAP PO SCH (06:16)
[2016-12-25] MEDS: OXYCODONE/ACETAMINOPHEN 5-325 TAB PO SCH ×3 (06:18→17:50)
[2016-12-25] MEDS: FORMOTEROL FUMA NEBULIZER SOLN 20 MCG/2 ML VIAL INH SCH ×2 (07:19→18:52)
[2016-12-25] MEDS: DEXAMETHASONE CONC SOLN 3.75 MG, NYSTATIN SUSP 30 ML, DiphenhydrAMINE HCL SYRUP 300 MG,... PO SCH ×20 (07:49→20:13)
[2016-12-25] MEDS: CEROVITE ADV FORMULA TAB PO SCH (07:50)
[2016-12-25] MEDS: ESCITALOPRAM OXALATE 10 MG TAB PO SCH (07:50)
[2016-12-25] MEDS: CYANOCOBALAMIN 500 MCG TAB (VIT B-12) PO SCH (07:50)
[2016-12-25] MEDS: PANTOprazole SOD 40 MG TAB PO SCH ×2 (07:50→20:09)
[2016-12-25] MEDS: DOXYCYCLINE HYCLATE 100 MG CAP PO SCH ×2 (07:50→20:11)
[2016-12-25] MEDS: LACTOBACILLUS ACIDOPHILUS (FLORANEX) TAB PO SCH ×3 (07:50→17:06)
[2016-12-25] MEDS: ASPIRIN 81 MG ECTAB PO SCH (07:50)
[2016-12-25] MEDS: DILTIAZEM HCL 120 MG ER CAP PO SCH (07:51)
[2016-12-25] MEDS: APIXABAN 2.5 MG TAB PO SCH ×2 (07:51→20:11)
[2016-12-25] MEDS: CHOLECALCIFEROL 1000 INTER.UNIT TAB PO SCH (07:51)
[2016-12-25] MEDS: TRAVOPROST Z 0.004% OPH SOLN 2.5 ML BTL OPB SCH (07:52)
[2016-12-25] MEDS: GABAPENTIN 100 MG CAP PO SCH ×3 (07:52→17:51)
[2016-12-25] MEDS: AMPHETAMINE DEXTROAMPHETAMINE PO SCH (12:02)
[2016-12-25] MEDS ORDERED: BRIMONIDINE 0.2% OP SCH (14:45)
[2016-12-25] MEDS ORDERED: BRIM0.2S18 OPB (14:49)
--- NOTE | 2016-12-25 18:51 | Progress Note ---
Subjective Date of Service: Dec 25, 2016. Subjective py looks much better today less subjective sob and cough Problem List Medical Problems: (1) Chronic obstructive pulmonary disease Status: Acute (2) Failure of outpatient treatment Status: Acute (3) Hypokalemia Status: Acute (4) Hypoxemia Status: Acute (5) Shortness of breath Status: Acute Review of Systems Constitutional: No fever, No chills Respiratory: + cough, + sputum, + shortness of breath, + dyspnea on exertion Cardiac: No chest pain, No edema Abdomen: No pain, No nausea, No vomiting, No diarrhea Female : No dysuria, No urinary frequency Objective Vital Signs Date Time Temp Pulse Resp B/P (MAP) Pulse Ox O2 Delivery O2 Flow Rate FiO2 12/25/16 16:00 Nasal Cannula 2.0 12/25/16 15:53 78 16 94 Nasal Cannula 2.0 12/25/16 14:55 36.2 80 18 152/70 (97) 95 Nasal Cannula 2.0 12/25/16 14:19 36.6 84 18 117/61 (79) 94 Nasal Cannula 2.0 12/25/16 11:43 36.6 89 16 95 2.0 12/25/16 11:20 89 16 95 Nasal Cannula 2.0 12/25/16 10:50 90 21 142/69 (93) 97 Nasal Cannula 2.0 12/25/16 08:00 Nasal Cannula 2.0 12/25/16 07:32 77 16 93 Nasal Cannula 2.0 12/25/16 07:16 36.6 83 22 131/71 (91) 92 Room Air 12/25/16 04:03 Nasal Cannula 2.0 12/25/16 03:31 79 16 96 Nasal Cannula 2.0 12/25/16 03:25 36.7 82 16 124/62 (82) 96 Nasal Cannula 2.5 12/25/16 00:01 Nasal Cannula 2.0 12/24/16 23:55 36.7 88 20 112/53 (72) 97 Nasal Cannula 2.0 12/24/16 23:07 88 20 95 Nasal Cannula 2.0 12/24/16 20:00 98 Nasal Cannula 2.0 12/24/16 19:32 88 20 92 Nasal Cannula 2.0 12/24/16 19:26 36.9 73 22 136/71 (92) 98 Nasal Cannula 2.3 Physical Exam General Appearance: WD/WN, + mild distress Eyes: PERRL, EOMI Neck: supple, no JVD Respiratory/Chest: chest non-tender, + decreased breath sounds, + accessory muscle use, + rhonchi Cardiovascular: regular rate, rhythm, no JVD Abdomen: normal bowel sounds, non tender, soft Extremities: no pedal edema, no calf tenderness Neurologic/Psychiatric: alert, oriented x 3 Assessment and Plan 76F with acute hypoxic respiratory failure 2nd to COPD exacerbation with possible early pneumonia. History of paroxysmal a. fib on chronic anticoagulation, ADHD, depression/anxiety, RA & chronic pain syndrome Acute hypoxic resp failure 2nd to COPD exacerbation -very much improved, solumedrol 40mg IV q12h. formoterol duoneb Mucinex., supplemental oxygen b/l pneumonia -much less mucus production rocephin/doxycycline, complete course PAF diltiazem and eliquis., no recurrence Rheumatoid arthritis with chronic pain syndrome - chronic percocet tid, pain is well controlled DVT proph - eliquis. ADHD - patient takes adderall xr chronically. for depression lexapro
[2016-12-25] MEDS: CLONAZEPAM 1 MG TAB PO SCH (20:08)
[2016-12-25] MEDS: MONTELUKAST SOD 10 MG TAB PO SCH (20:09)
[2016-12-25] MEDS: TRAZODONE HCL 100 MG TAB PO SCH (20:10)
[2016-12-25] MEDS: ATORVASTATIN 40 MG TAB PO SCH (20:10)
[2016-12-25] MEDS: PRAMIPEXOLE DIHYDROCHLORIDE 0.5 MG TAB PO SCH (20:10)
[2016-12-25] MEDS: BRIMONIDINE TARTRATE 0.2% OPB SCH (20:12)
[2016-12-25] MEDS: CEFTRIAXONE SOD INJ 1 GM in DEXTROSE 5% ADD-VANTAGE 50ML 50 ML IV SCH (21:58)
[2016-12-26] MEDS: METHYLPREDNISOLONE IV 40 MG in SYRINGE 0 ML IV SCH ×2 (02:20→13:32)
[2016-12-26] MEDS: ALBUT/IPRATROP 3MG/0.5MG NEB 3 ML VIAL INH SCH ×3 (03:16→11:04)
[2016-12-26] MEDS: GABAPENTIN 100 MG CAP PO SCH ×2 (06:08→13:28)
[2016-12-26] MEDS: OXYCODONE/ACETAMINOPHEN 5-325 TAB PO SCH ×2 (06:08→13:38)
[2016-12-26] MEDS: DEXAMETHASONE CONC SOLN 3.75 MG, NYSTATIN SUSP 30 ML, DiphenhydrAMINE HCL SYRUP 300 MG,... PO SCH ×10 (06:09→13:39)
[2016-12-26] MEDS: AMPHETAMINE-DEXTROAMPHETAMINE 30 MG CAP PO SCH (06:21)
[2016-12-26 06:59] VITALS: PULSE 85; O2SAT 94
[2016-12-26] MEDS: FORMOTEROL FUMA NEBULIZER SOLN 20 MCG/2 ML VIAL INH SCH (06:59)
[2016-12-26 07:43] VITALS: BP 152/80; PULSE 81; TEMP 36.9; O2SAT 93
[2016-12-26 08:00] VITALS: O2SAT 93
[2016-12-26] MEDS: CYANOCOBALAMIN 500 MCG TAB (VIT B-12) PO SCH (08:06)
[2016-12-26] MEDS: DOXYCYCLINE HYCLATE 100 MG CAP PO SCH (08:07)
[2016-12-26] MEDS: ESCITALOPRAM OXALATE 10 MG TAB PO SCH (08:07)
[2016-12-26] MEDS: PANTOprazole SOD 40 MG TAB PO SCH (08:07)
[2016-12-26] MEDS: LACTOBACILLUS ACIDOPHILUS (FLORANEX) TAB PO SCH ×2 (08:07→13:29)
[2016-12-26] MEDS: DILTIAZEM HCL 120 MG ER CAP PO SCH (08:08)
[2016-12-26] MEDS: MAGNESIUM OXIDE 400 MG TAB PO SCH (08:09)
[2016-12-26] MEDS: ASPIRIN 81 MG ECTAB PO SCH (08:09)
[2016-12-26] MEDS: CHOLECALCIFEROL 1000 INTER.UNIT TAB PO SCH (08:10)
[2016-12-26] MEDS: CEROVITE ADV FORMULA TAB PO SCH (08:10)
[2016-12-26] MEDS: APIXABAN 2.5 MG TAB PO SCH (08:10)
[2016-12-26] MEDS: BRIMONIDINE TARTRATE 0.2% OPB SCH (08:11)
[2016-12-26] MEDS: TRAVOPROST Z 0.004% OPH SOLN 2.5 ML BTL OPB SCH (08:11)
[2016-12-26 11:04] VITALS: PULSE 86; O2SAT 94
[2016-12-26] MEDS ORDERED: DXY100 PO (12:32)
[2016-12-26] MEDS ORDERED: PRED10TA PO ×2 (12:32→12:46)
--- NOTE | 2016-12-26 12:33 | Discharge Instructions ---
Discharge Instructions Date of Service Dec 26, 2016. Admission Reason for Admission: Copd Exacerbation Discharge Discharge Diagnosis / Problem: copd exacerbation Discharge Goals Goal(s): Diagnostic testing, Therapeutic intervention Activity Recommendations Activity Limitations: resume your previous activity . Current Hospital Diet Patient's current hospital diet: AHA Diet (Heart Healthy) Discharge Diet Recommended Diet: Regular Diet Pending Studies Studies pending at discharge: no Laboratory Results Hemoglobin A1c Test 12/24/16 05:44 Range/Units Estimated Average Glucose 128 mg/dl Hemoglobin A1c 6.1 H 4.5-5.6 % Medical Emergencies . Who to Call and When: Medical Emergencies: If at any time you feel your situation is an emergency, please call 911 immediately. . Non-Emergent Contact Non-Emergency issues call your: Primary Care Provider Call Non-Emergent contact if: temperature is above 101, your pain is unusual for you . . "Provider Documentation" section prepared by Nasir Toro. . VTE Core Measure Inpt VTE Proph given/why not?: Other Anticoagulation
[2016-12-26] MEDS ORDERED: IPRASOL4 INH (12:46)
[2016-12-26] MEDS ORDERED: SYMIN160 INH (12:46)
[2016-12-26] MEDS: AMPHETAMINE DEXTROAMPHETAMINE PO SCH (13:30)
[2016-12-26 14:00] VITALS: BP 152/80; PULSE 86; TEMP 36.9; O2SAT 94
--- NOTE | 2016-12-27 07:41 | Discharge Summary ---
Discharge Summary Date of Service Dec 26, 2016. Discharge Summary Admission Date: Dec 23, 2016 at 17:50 Discharge Date: Dec 26, 2016 Discharge Disposition: Home with services Principal Diagnosis: copd exacerbation, pneumonia Immunizations: Have You Had Influenza Vaccine: Yes Influenza Vaccine Date: Apr 08, 2011 History of Tetanus Vaccine?: Yes Tetanus Immunization Date: Oct 31, 2003 History of Pneumococcal: Yes Pneumococcal Date: May 08, 2004 History of Hepatitis B Vaccine: Unknown Medication Reconciliation New Medications: Prednisone Tab (Prednisone) 10 Mg Tab 10 MG PO UD, #86 TAB 6 a day x4 days then 5 a day x4 days then 4 a day x4 days then 3 a day x4 days then 2 a day x4 days then 1 a day Doxycycline Hyclate (Doxycycline Hyclate) 100 Mg Cap 100 MG PO BID, #14 CAP Changed Medications: Ipratropium-Albuterol (Duoneb) 3 Ml Nebu 1 TREATMENT INH Q4H PRN for SOB/Wheezing, #90 DOSE (Medication details modified) j44.1 Continued Medications: Albuterol Hfa (Ventolin Hfa) 200 Puffs/34953 Mcg Aers 1-2 PUFFS INH Q4-6HRS PRN for SOB/Wheezing, #1 INHALER Albuterol Sulf (Proventil 0.083% 2.5MG/3ML) 2.5 Mg/3 Ml Nebu 2.5 MG INH QID PRN for Wheezing, EA Amphetamine-Dextroamphetamine 15MG (Adderall Xr 15MG) 1 Cap Cap 15 MG PO DAILY, CAP take at 1200 Amphetamine-Dextroamphetamine 30MG (Adderall Xr 30MG) 1 Cap Cap 30 MG PO QAM, CAP Apixaban (Eliquis) 5 Mg Tab 5 MG PO BID Aspirin (Aspirin Ec) 81 Mg Tab 81 MG PO DAILY Atorvastatin (Lipitor) 40 Mg Tab 40 MG PO QPM, TAB Brimonidine Tartrate (Brimonidine Tartrate) 0.2 % Mary 1 DROP OPB Q12 Budesonide/Formoterol Fumarate (Symbicort 160/4.5 Inhaler ) Aero 2 PUFFS INH BID PRN for SOB/Wheezing, #1 INHALER (This prescription has been renewed) Calcium Carbonate-Vitamin D (Calcium 600 + D) 1 Tab Tab 1 TAB PO BID Cholecalciferol (Vitamin D 1000 Unit) 1,000 Unit Cap 1000 INTER.UNIT PO DAILY, CAP Clonazepam (Klonopin) 1 Mg Tab 1 MG PO HS Cyanocobalamin (Vitamin B-12) 250 Mcg Tab 250 MCG PO DAILY, TAB Diltiazem HCl (Diltiazem HCl ER) 120 Mg Caper 240 MG PO QAM, #30 Escitalopram (Lexapro) 10 Mg Tab 10 MG PO DAILY, TAB Gabapentin (Gabapentin) 100 Mg Cap 200 MG PO TID TAKE IN MORNING AND AT NOON & HS Lactobacillus (Acidophilus) 1 Cap Cap 1 CAP PO DAILY Lamotrigine (Lamictal) 150 Mg Tab 150 MG PO HS, TAB Magnesium (Magnesium) 200 Mg Tab 200 MG PO Q2D ALTERNATE WITH 400MG Magnesium Oxide (Mg Supplement (Magnesium) 400 Mg Cap 400 MG PO Q2D ALTERNATE WITH 200MG Montelukast Sodium (Singulair) 10 Mg Tab 10 MG PO HS, TAB Multiple Vitamins W/ Minerals (One Daily For Women) 1 Tab Tab 1 TAB PO DAILY Omeprazole (Prilosec) 20 Mg Capcr 20 MG PO BID Oxycodone/Acetaminophen 5MG/325MG (Percocet 5MG/325MG) Tab 1 TAB PO TID PAIN Pramipexole Dihydrochloride (Mirapex) 0.5 Mg Tab 0.5 MG PO HS Travoprost (Travatan Z) 0.004 % Yfn 1 DROP OPB DAILY, #8 Trazodone HCl (Trazodone HCl) 150 Mg Tab 150 MG PO HS, #90 Discharge Exam Review of Systems: Constitutional: No fever, No chills Respiratory: + dyspnea on exertion, No cough, No sputum, No shortness of breath Cardiovascular: No chest pain, No orthopnea Abdomen: No pain, No nausea, No vomiting, No diarrhea Physical Exam: General Appearance: WD/WN, no apparent distress Neck: supple, no JVD Respiratory/Chest: chest non-tender, + decreased breath sounds, + accessory muscle use, + rhonchi Cardiovascular: regular rate, rhythm, no murmur Abdomen / GI: normal bowel sounds, non tender, soft Extremities: no pedal edema, normal range of motion Neurologic/Psychiatric: alert, oriented x 3 Hospital Course 76F with acute hypoxic respiratory failure 2nd to COPD exacerbation with possible early pneumonia. History of paroxysmal a. fib on chronic anticoagulation, ADHD, depression/anxiety, RA & chronic pain syndrome Acute hypoxic resp failure 2nd to COPD exacerbation -very much improved, oral steroid, pt requests long taper, resume symbicort, duoneb b/l pneumonia -doxycycline, complete course PAF diltiazem and eliquis., no recurrence Rheumatoid arthritis with chronic pain syndrome - chronic percocet tid, pain is well controlled DVT proph - eliquis. ADHD - patient takes adderall xr chronically. for depression lexapro Total Time Spent: Greater than 30 minutes This includes examination of the patient, discharge planning, medication reconciliation, and communication with other providers. Discharge Instructions Please refer to the electronic Patient Visit Report (Discharge Instructions) for additional information.
== END 2016-12-26 15:19 | disposition home health service (06) | DRG 189 ==
LOC: EDBD 14:21 → C.EDA 14:58 → C.2T 17:50 → EDBEDREQ 18:00 → ENRESERV 19:01 → C.MS2W 12-25 12:47
PROVIDERS: ADMIT Internal Medicine; ATTEND Internal Medicine
DX: J96.01 Acute respiratory failure with hypoxia (principal); J18.9 Pneumonia, unspecified organism; J44.1 Chronic obstructive pulmonary disease with (acute) exacerbation; J44.0 Chronic obstructive pulmonary disease with (acute) lower respiratory infection; B37.0 Candidal stomatitis; E87.6 Hypokalemia; E83.42 Hypomagnesemia; J45.909 Unspecified asthma, uncomplicated; I48.0 Paroxysmal atrial fibrillation; E11.9 Type 2 diabetes mellitus without complications; E78.5 Hyperlipidemia, unspecified; F90.9 Attention-deficit hyperactivity disorder, unspecified type; F32.9 Major depressive disorder, single episode, unspecified; F41.9 Anxiety disorder, unspecified; I87.2 Venous insufficiency (chronic) (peripheral); G89.29 Other chronic pain; G25.81 Restless legs syndrome; M06.9 Rheumatoid arthritis, unspecified; H40.9 Unspecified glaucoma; Z51.81 Encounter for therapeutic drug level monitoring; Z79.899 Other long term (current) drug therapy; Z87.891 Personal history of nicotine dependence; Z79.82 Long term (current) use of aspirin; Z79.01 Long term (current) use of anticoagulants; Z87.01 Personal history of pneumonia (recurrent); Z86.14 Personal history of Methicillin resistant Staphylococcus aureus infection; Z82.5 Family history of asthma and other chronic lower respiratory diseases; Z82.49 Family history of ischemic heart disease and other diseases of the circulatory system; Z82.69 Family history of other diseases of the musculoskeletal system and connective tissue; Z80.8 Family history of malignant neoplasm of other organs or systems

== ENCOUNTER → 2017-01-28 | Outpatient (CLI) | payer OTHER ==
[~2017-01-28] MED LIST changes: -BRIM0.1S OPB; +BRIM0.2S18 OPB; +DXY100 PO; -GABA-112 PO; -LVQ750 PO; +PRED10TA PO
== END | disposition home or self-care (01) ==
LOC: C.PATHSPEC 17:21
PROVIDERS: ATTEND Dermatology
DX: D04.30 Carcinoma in situ of skin of unspecified part of face (principal)

== ENCOUNTER 2017-05-22 09:54 | Inpatient (IN) | payer OTHER ==
[2017-05-01 11:54] VITALS: BMI 29.0
--- NOTE | 2017-05-01 12:54 | PAT Medication Instructions ---
Service Date May 01, 2017. Current Home Medication List Albuterol Hfa (Ventolin Hfa), 1-2 PUFFS INH Q4-6HRS PRN for SOB/Wheezing Albuterol Sulf (Proventil 0.083% 2.5MG/3ML), 2.5 MG INH QID PRN for Wheezing Amphetamine-Dextroamphetamine 15MG (Adderall Xr 15MG), 15 MG PO DAILY Amphetamine-Dextroamphetamine 30MG (Adderall Xr 30MG), 30 MG PO QAM Apixaban (Eliquis), 5 MG PO BID Aspirin (Aspirin Ec), 81 MG PO HS Atorvastatin (Lipitor), 40 MG PO QPM Budesonide/Formoterol Fumarate (Symbicort 160/4.5 Inhaler ), 2 PUFFS INH BID PRN for prn Calcium Carbonate-Vitamin D (Calcium 600 + D), 1 TAB PO BID Cholecalciferol (Vitamin D 1000 Unit), 1,000 INTER.UNIT PO QAM Clonazepam (Klonopin), 1 MG PO HS Cyanocobalamin (Vitamin B-12), 250 MCG PO QAM Diclofenac Sodium (Topical) (Voltaren 1% Top Gel), 1 DOSE TOP UD PRN for Pain Escitalopram (Lexapro), 10 MG PO QAM Gabapentin (Gabapentin), 200 MG PO TID Lactobacillus (Acidophilus), 1 CAP PO QAM Lamotrigine (Lamictal), 150 MG PO HS Magnesium (Magnesium), 200 MG PO Q2D Magnesium Oxide (Mg Supplement (Magnesium), 400 MG PO Q2D Montelukast Sodium (Singulair), 10 MG PO HS Multiple Vitamins W/ Minerals (One Daily For Women), 1 TAB PO QAM Omeprazole (Prilosec), 20 MG PO BID Oxycodone/Acetaminophen 5MG/325MG (Oxycodone/Acetaminophen 5MG/325MG), 1-2 TABLETS PO UD PRN for prn Pramipexole Dihydrochloride (Mirapex), 0.5 MG PO HS Prednisone Tab (Prednisone), 10 MG PO UD PRN for asthma Trazodone HCl (Trazodone HCl), 150 MG PO HS Medication Instructions For Your Scheduled Surgery -Hold the following medication per your prescriber's instructions: Apixaban (Eliquis), 5 MG PO BID (Will need to be held for 72 hours for spinal anesthesia) -Continue as directed: Prednisone Tab (Prednisone), 10 MG PO UD PRN for asthma (if taken close to surgery date please inform surgeon/anesthesia the morning of the surgery) - Hold the following medications 24 hours prior to surgery: Diclofenac Sodium (Topical) (Voltaren 1% Top Gel), 1 DOSE TOP UD PRN for Pain - Hold the following medications the morning of surgery: Multiple Vitamins W/ Minerals (One Daily For Women), 1 TAB PO QAM Magnesium (Magnesium), 200 MG PO Q2D Magnesium Oxide (Mg Supplement (Magnesium), 400 MG PO Q2D Lactobacillus (Acidophilus), 1 CAP PO QAM Calcium Carbonate-Vitamin D (Calcium 600 + D), 1 TAB PO BID Cholecalciferol (Vitamin D 1000 Unit), 1,000 INTER.UNIT PO QAM Cyanocobalamin (Vitamin B-12), 250 MCG PO QAM Amphetamine-Dextroamphetamine 15MG (Adderall Xr 15MG), 15 MG PO DAILY Amphetamine-Dextroamphetamine 30MG (Adderall Xr 30MG), 30 MG PO QAM - Take the following medications the morning of surgery with a sip of water: Oxycodone/Acetaminophen 5MG/325MG (Oxycodone/Acetaminophen 5MG/325MG), 1-2 TABLETS PO UD PRN for prn (if needed, can be taken up to four hours before surgery) Omeprazole (Prilosec), 20 MG PO BID Escitalopram (Lexapro), 10 MG PO QAM Gabapentin (Gabapentin), 200 MG PO TID Albuterol Hfa (Ventolin Hfa), 1-2 PUFFS INH Q4-6HRS PRN for SOB/Wheezing (if needed, and bring with you to the hospital) Albuterol Sulf (Proventil 0.083% 2.5MG/3ML), 2.5 MG INH QID PRN for Wheezing ( if needed) Budesonide/Formoterol Fumarate (Symbicort 160/4.5 Inhaler ), 2 PUFFS INH BID PRN for prn (if needed) - Hold the following medication the night before surgery: Pramipexole Dihydrochloride (Mirapex), 0.5 MG PO HS - Take the following medications as scheduled the night before surgery: Trazodone HCl (Trazodone HCl), 150 MG PO HS Oxycodone/Acetaminophen 5MG/325MG (Oxycodone/Acetaminophen 5MG/325MG), 1-2 TABLETS PO UD PRN for prn (if needed) Omeprazole (Prilosec), 20 MG PO BID Montelukast Sodium (Singulair), 10 MG PO HS Lamotrigine (Lamictal), 150 MG PO HS Gabapentin (Gabapentin), 200 MG PO TID Aspirin (Aspirin Ec), 81 MG PO HS Clonazepam (Klonopin), 1 MG PO HS Albuterol Hfa (Ventolin Hfa), 1-2 PUFFS INH Q4-6HRS PRN for SOB/Wheezing (if needed) Albuterol Sulf (Proventil 0.083% 2.5MG/3ML), 2.5 MG INH QID PRN for Wheezing ( if needed) Calcium Carbonate-Vitamin D (Calcium 600 + D), 1 TAB PO BID Atorvastatin (Lipitor), 40 MG PO QPM If you have any questions please call us at [phone] or [phone] or [phone]
--- NOTE | 2017-05-01 13:47 | DIAGNOSTIC IMAGING REPORT ---
CHEST 2 VIEWS ROUTINE HISTORY: 76 years-old Female PAT preoperative exam without acute chest complaints. COMPARISON: Chest radiograph 12/23/2016 and 08/17/2015 TECHNIQUE: PA and lateral views of the chest FINDINGS: Cardiac silhouette is upper limits of normal in size, unchanged. Atherosclerosis of the aorta. No pneumothorax, pleural effusion or focal airspace consolidation. Blunting of left costophrenic angle is noted with subsegmental left basilar opacity suggesting atelectasis/scarring. Eventration of the right hemidiaphragm. Bones of the chest appear grossly intact. Mild anterior endplate wedging of a mid thoracic vertebral body appears unchanged from comparison IMPRESSION: No acute cardiopulmonary process. The above report was generated using voice recognition software. It may contain grammatical, syntax or spelling errors. Electronically signed by: Jaylon Alcocer M.D. 05/01/2017 1:45 PM Dictated Date/Time: 05/01/2017 1:44 PM
[2017-05-01 14:06] LABS: BASO % 0.3 %; BASO ABS # 0.02 K/uL (0-0.2); EOS % 2.1 %; EOS ABS # 0.14 K/uL (0-0.5); HEMATOCRIT 40.8 % (37-47); HEMOGLOBIN 12.7 g/dL (12.0-16.0); IG# 0.01 K/uL (0.00-0.02); LYMPH % 29.2 %; LYMPH ABS # 1.94 K/uL (1.2-3.4); MEAN CELL VOLUME 90.9 fL (80-100); MEAN CORPUSCULAR HEMOGLOBIN 28.3 pg (25-34); MEAN CORPUSCULAR HGB CONC 31.1 g/dl (32-36); MEAN PLATELET VOLUME 10.1 fL (7.4-10.4); NEUT % 59.2 %; NEUT ABS # 3.93 K/uL (1.4-6.5); PLATELET COUNT 210 K/uL (130-400); RED CELL DISTRIBUTION WIDTH CV 14.3 % (11.5-14.5); RED CELL DISTRIBUTION WIDTH SD 47.4 fL (36.4-46.3); WHITE BLOOD COUNT 6.64 K/uL (4.8-10.8)
[2017-05-01 14:17] LABS: PTT PATIENT 29.9 SECONDS (21.0-31.0)
[2017-05-01 14:19] LABS: HEMOGLOBIN A1C 5.8 % (4.5-5.6)
[2017-05-01 15:01] LABS: ALBUMIN 3.3 gm/dl (3.4-5.0); CALCIUM 9.2 mg/dl (8.5-10.1); CREATININE 0.52 mg/dl (0.60-1.20); POTASSIUM 3.6 mmol/L (3.5-5.1)
--- NOTE | 2017-05-20 21:41 | History and Physical ---
History & Physical Date May 20, 2017. Chief Complaint Right knee pain History of Present Illness The patient is a 76 year old female with complaints of Right knee pain for several years. She has tried conservative therapy with no relief. She would like to proceed with a Right total knee arthroplasty. Past Medical/Surgical History Medical Problems: (1) ADD (2) Anxiety (3) Arthroplasty of knee (4) Asthma, Unspecified (5) COPD (6) COPD exacerbation (7) Depression (8) Diabetes (9) Elbow surgery (10) Hyperlipidemia (11) MRSA (12) Pneumonia (13) Restless legs (14) Rheumatoid arthritis (15) Small bowel obstruction Surgical Problems: (1) Appendectomy (2) Post-operative state Additional History Hepatic Disease: No Endocrine Disorder: No Kidney Disease: No Hypertension: Yes Heart Disease: No Bleeding Tendencies: No Infectious Diseases: No Allergies Coded Allergies: Chocolate (Verified Allergy, Mild, RASH, 05/01/17) Azithromycin (Verified Allergy, Unknown, THROAT BURNED-LOST WT, 05/01/17) Fluticasone (Verified Allergy, Unknown, FROM ADVAIR, CHEST PAIN, 05/01/17) ALLERGY TO ADVAIR Penicillins (Verified Allergy, Unknown, UNKNOWN-HAS TOLERATED ROCEPHIN IN PAST, 05/01/17) PCN ALLERGY IDENTIFIED FROM ALLERGY TESTING Procaine (Verified Allergy, Unknown, ANAPHYLAXIS/MOUTH SWELLING/SOB, 05/01) Salmeterol (Verified Allergy, Unknown, FROM ADVAIR, CHEST PAIN., 05/01/17) ALLERGY TO ADVAIR Moxifloxacin (Verified Adverse Reaction, Unknown, NAUSEA & VOMITING, 05/01) NSAIDs (Verified Adverse Reaction, Unknown, AVOID DUE TO ULCER HX, ) Zolpidem (Verified Adverse Reaction, Unknown, SLEEP WALKING, 05/01/17) Home Medications Scheduled Amphetamine-Dextroamphetamine 15MG (Adderall Xr 15MG), 15 MG PO DAILY Amphetamine-Dextroamphetamine 30MG (Adderall Xr 30MG), 30 MG PO QAM Apixaban (Eliquis), 5 MG PO BID Aspirin (Aspirin Ec), 81 MG PO HS Atorvastatin (Lipitor), 40 MG PO QPM Calcium Carbonate-Vitamin D (Calcium 600 + D), 1 TAB PO BID Cholecalciferol (Vitamin D 1000 Unit), 1,000 INTER.UNIT PO QAM Clonazepam (Klonopin), 1 MG PO HS Cyanocobalamin (Vitamin B-12), 250 MCG PO QAM Escitalopram (Lexapro), 10 MG PO QAM Gabapentin (Gabapentin), 200 MG PO TID Lactobacillus (Acidophilus), 1 CAP PO QAM Lamotrigine (Lamictal), 150 MG PO HS Magnesium (Magnesium), 200 MG PO Q2D Magnesium Oxide (Mg Supplement (Magnesium), 400 MG PO Q2D Montelukast Sodium (Singulair), 10 MG PO HS Multiple Vitamins W/ Minerals (One Daily For Women), 1 TAB PO QAM Omeprazole (Prilosec), 20 MG PO BID Pramipexole Dihydrochloride (Mirapex), 0.5 MG PO HS Trazodone HCl (Trazodone HCl), 150 MG PO HS Scheduled PRN Albuterol Hfa (Ventolin Hfa), 1-2 PUFFS INH Q4-6HRS PRN for SOB/Wheezing Albuterol Sulf (Proventil 0.083% 2.5MG/3ML), 2.5 MG INH QID PRN for Wheezing Budesonide/Formoterol Fumarate (Symbicort 160/4.5 Inhaler ), 2 PUFFS INH BID PRN for prn Diclofenac Sodium (Topical) (Voltaren 1% Top Gel), 1 DOSE TOP UD PRN for Pain Oxycodone/Acetaminophen 5MG/325MG (Oxycodone/Acetaminophen 5MG/325MG), 1-2 TABLETS PO UD PRN for prn Prednisone Tab (Prednisone), 10 MG PO UD PRN for asthma Physical Examination Skin: warm/dry, no rash Eyes: normal inspection, EOMI ENT: normal ENT inspection Head: normocephalic, atraumatic Neck: supple, no adenopathy Respiratory/Chest: lungs clear, normal breath sounds Cardiovascular: regular rate, rhythm, no murmur Abdomen / GI: normal bowel sounds, non tender Extremities: normal inspection, + pertinent finding (Medial joint line tenderness, ligaments are intact, decreased ROM and decreased Strength. ) Diagnosis Primary osteoarthritis of right knee Plan of Treatment Patient is scheduled for a Right total knee arthroplasty. She has failed conservative therapy and would like to proceed with scheduled surgery. Risks and benefits were discussed with the patient and she understands the risks and wishes to proceed. All questions were answered. She will be placed on ASA 81mg BID for DVT prophylaxis. She would like to go to a SNF: [facility].
[2017-05-22] VITALS (10 sets, daily range): BP systolic 86–145; BP diastolic 56–78; PULSE 55–76; TEMP 36.5–37; O2SAT 94–99; Ht 165.1 cm; Wt 78.9 kg
[~2017-05-22] VITALS: Ht 165.1 cm; Wt 78.9 kg
[~2017-05-22 09:54] MED LIST changes: -ACET-24 PO; +ACETAMINOPHEN 500 MG TAB PO SCH; +BUPIVACAINE 0.25% 30 ML VIAL ONE; +BUPIVACAINE 0.5 % 5 MG/1 ML PF 10ML VIAL ONE; -CHOL400C7 PO; +CLINDAMYCIN 600 MG/54 ML D5W 54 ML IV SCH; -CLON1TAB10 PO; +CLON1TAB3 PO; +CeleBREX 200 MG CAP PO SCH; +DEXAMETHASONE 4 MG TAB PO SCH; -DICL1GEL12 TD; -DILT-213 PO; +DILT120C PO; -DILT240C48 PO; +FAMOTIDINE 20 MG TAB PO SCH; +FENTANYL CITRATE INJ 50 MCG/1 ML 2 ML VIAL ONE; -GABA400C PO; +GABAPENTIN 300 MG CAP PO SCH; +LACTATED RINGER'S 1000ML 1,000 ML IV SCH; +LACTATED RINGER'S 1000ML 500 ML IV SCH; +LACTATED RINGER'S 1000ML IV SCH; +METOCLOPRAMIDE HCL 10 MG TAB PO SCH; +MIDAZOLAM HCL 1 MG/ML 2ML VIAL ONE; -OXYC-594 PO; +OXYCODONE HCL 10 MG TABCR (OXYCONTIN) PO SCH; -OXYSR10 PO; -PANT40TA PO; +ROPIVACAINE 5MG/ML 30 ML 150 MG, BUPIVACAINE 0.5% MPF INJ 30 ML, EpINEphrine HCL INJ 0.... INFIL SCH; -RXC5 PO; -VAREPAK2 PO; -ZINC1TAB PO
[2017-05-22] MEDS ORDERED: FENTANYL CITRATE INJ 50 MCG/1 ML 2 ML VIAL IV PRN (10:00)
[2017-05-22] MEDS ORDERED: ATROPINE SULFATE 0.1 MG/ML 5ML SYR IV PRN (10:00)
[2017-05-22] MEDS ORDERED: ONDANSETRON INJ 2 MG/ML 2 ML VIAL IV PRN ×2 (10:00→14:00)
--- NOTE | 2017-05-22 10:52 | History & Physical Bridge Note ---
H&P Re-Evaluation Bridge Note: I have examined the patient, reviewed the History & Physical and in the interval since the performance of the History & Physical I have noted the following changes of clinical significance: No changes noted
[2017-05-22] MEDS ORDERED: ORTHO JOINT ANESTHETIC ONE (11:27)
[2017-05-22] MEDS ORDERED: POVIDONE-IODINE OP SOLN 30 ML BTL ONE (11:27)
[2017-05-22] MEDS ORDERED: BACITRACIN 50000 UNIT VIAL ONE (11:28)
[2017-05-22] MEDS ORDERED: ALBUT/IPRATROP 3MG/0.5MG NEB 3 ML VIAL INH PRN (11:45)
[2017-05-22] MEDS ORDERED: MIDAZOLAM HCL 1 MG/ML 2ML VIAL ONE ×2 (12:29→12:30)
[2017-05-22] MEDS ORDERED: PROPOFOL IV EMULSION 10 MG/ML 20 ML VIAL IV ONE (12:39)
--- NOTE | 2017-05-22 13:35 | [facility] Operative Report ---
Operative Report Operative Date May 22, 2017. Pre-Operative Diagnosis Primary osteoarthritis of the right knee Post-Operative Diagnosis Primary osteoarthritis of the right knee Procedure(s) Performed Right total knee arthroplasty Surgeon Dr. Pinto Dealer Account Manager Surgeon(s) Chad Wagoner PA-C Estimated Blood Loss 20cc Findings as above Specimens A. Right knee bone and tissue Drains 2 hemovac Anesthesia spinal Complication(s) None Disposition Recovery Room / PACU Indications Patient is a 76-year-old female long-standing osteophytic change the right knee. She is [id number] in the lateral compartment. She has failed conservative measures including injection and rehabilitation. She is allergic to nonsteroidal anti-inflammatories is unable take these. Failing conservative measures she wishes to proceed with a right total knee arthroplasty. Description of Procedure Risks benefits and alternatives of surgery including but not limited to infection, DVT, pain, stiffness, need for surgery, damage to blood vessels, damage to nerves or risks of anesthesia were discussed with the patient and they wished to proceed. The patient was identified and the laterality was confirmed and marked. They received a preoperative antibiotic as well as a spinal anesthetic and an abductor canal block. A well-padded tourniquet was applied and then the limb was prepped and draped in standard manner with ChloraPrep. The limb was exsanguinated and the tourniquet was inflated. I made a standard anterior incision. I sharply incised the skin then utilized Bovie electrocautery as well as the aqua mantis to achieve hemostasis. I made a medial parapatellar arthrotomy and mobilized the patella laterally. I then excised the anterior horns of the medial and lateral meniscus as well as the infrapatellar fat pad. I elevated a portion of the MCL off of the tibia. I then pinned into place a patient-matched distal femoral cutting guide and made my distal femoral resection. I then pinned into place the 5 in 1 femoral cutting guide. I made my anterior, posterior and chamfer cuts. I then excised the cruciates and the remaining portions of the menisci. I then pinned into place a patient- matched tibial cutting guide and made my tibial resection. I then pinned into place the tibial plate a utilizing alignment doe to confirm rotation. I then cut for the post. Utilizing a lamina supervisor hot strip mill and I then removed posterior osteophytes off the femur. I then placed a trial femur into position and cut for the trochlear component. I then sequentially trialed to size the polyethylene until there was good soft tissue balancing and range of motion. I then prepared the patella with a freehand cut utilizing sagittal saw. I sized and drilled for the patella. There was some lateral tracking to the patella and a small lateral release was required. I was able to preserve the joint capsule. All the trial components were removed. The deep tissues were anesthetized with an ortho mix solution. Then with Simplex HV with gentamicin cement, I cemented my definitive components. Definitive components, Cade and Nephew Karime 2: Femur 5 Tibia 3 Poly 12 Patella 29 oval A betadine soak was performed. A deep drain was placed. The arthrotomy was closed with interrupted #1 Vicryl suture subcutaneous tissue was closed with interrupted 2-0 Vicryl suture. The skin was closed with with jb. A Silverlon was placed. Sterile dressings were applied. All needle and sponge counts were correct at the end of the procedure patient was transferred to the PACU in stable condition without apparent complication. The PA-C was necessary for assistance with procedure for assistance in positioning, prepping, draping, retraction and closure. I attest to the content of the Intraoperative Record and any orders documented therein. Any exceptions are noted below.
[2017-05-22] MEDS ORDERED: D5W AND 1/2NSS + 20MEQ KCL 1,000 ML IV SCH (13:56)
[2017-05-22] MEDS ORDERED: MoRPHine SULFATE 2 MG/ML CARP IV PRN (14:00)
[2017-05-22] MEDS ORDERED: BUDESONIDE/FORMOTEROL FUMARATE 160/4.5 60 PUFFS/INHALER INH PRN (14:00)
[2017-05-22] MEDS ORDERED: ALUMINUM/MAGNESIUM/SIMETH (MAALOX MAX) 30 ML UDC PO PRN (14:00)
[2017-05-22] MEDS ORDERED: ALBUTEROL 0.083% NEBU SOLN 3 ML VIAL INH PRN (14:00)
[2017-05-22] MEDS ORDERED: MAGNESIUM HYDROXIDE SUSP 30 ML UDC PO PRN (14:00)
--- NOTE | 2017-05-22 14:27 | DIAGNOSTIC IMAGING REPORT ---
R KNEE 1 OR 2 VIEWS ROUTINE HISTORY: 76 years-old Female AP/LATERAL IN PACU RIGHT KNEE status post right knee total joint arthroplasty. Degenerative joint disease. COMPARISON: None available TECHNIQUE: Portable AP and lateral views of the right knee FINDINGS: Postoperative changes from recent right knee total joint arthroplasty and patellar resurfacing. Bone mineralization appears to be within normal limits. Alignment is satisfactory without periprosthetic fracture or retained foreign body identified. Anterior midline skin jb are noted along with a surgical drain and expected postsurgical soft tissue swelling and deep tissue air. IMPRESSION: Status post right knee total joint arthroplasty and patellar resurfacing without complication identified. The above report was generated using voice recognition software. It may contain grammatical, syntax or spelling errors. Electronically signed by: Jaylon Alcocer M.D. 05/22/2017 2:25 PM Dictated Date/Time: 05/22/2017 2:24 PM
--- NOTE | 2017-05-22 15:51 | Anesthesiology Progress Note ---
Anesthesia Post Op Note Date & Time May 22, 2017 at 15:50 Vital Signs Pain Intensity: 0 Vital Signs Past 12 Hours Date Time Temp Pulse Resp B/P (MAP) Pulse Ox O2 Delivery O2 Flow Rate FiO2 05/22/17 15:25 36.4 71 18 122/64 94 Nasal Cannula 3 05/22/17 15:15 71 20 136/59 92 Nasal Cannula 3 05/22/17 15:05 66 19 130/64 94 Nasal Cannula 3 05/22/17 14:55 68 19 133/62 95 Nasal Cannula 3 05/22/17 14:45 70 20 126/61 96 Mask 4 05/22/17 14:35 70 20 131/65 91 Nasal Cannula 2 05/22/17 14:25 69 20 125/63 94 Nasal Cannula 2 05/22/17 14:15 69 18 118/66 100 Oxymask 10 05/22/17 14:05 70 19 121/60 100 Oxymask 10 05/22/17 13:55 36.0 70 16 127/57 96 Oxymask 10 05/22/17 11:37 68 18 94 Room Air 05/22/17 10:51 36.7 70 20 145/78 (100) 95 Room Air Notes Mental Status: alert / awake / arousable, participated in evaluation Pt Amnestic to Procedure: Yes Nausea / Vomiting: adequately controlled Pain: adequately controlled Airway Patency, RR, SpO2: stable & adequate BP & HR: stable & adequate Hydration State: stable & adequate Neuraxial Anesthesia: was administered, sensory block is resolving Anesthetic Complications: no major complications apparent Patient somewhat sleepy but wake up easily to participate in her evaluation. No pain or nausea. She denied any anesthesia complications. Will ensure patient has continuous pulse oximetry on floor given her COPD history.
[2017-05-22] MEDS: FERROUS GLUCONATE 324 MG TAB PO SCH ×2 (17:06→17:07)
[2017-05-22] MEDS: SODIUM CHLOR 0.45% + 20MEQ KCL 1,000 ML IV SCH (17:06)
[2017-05-22] MEDS ORDERED: RXC5 PO (17:20)
--- NOTE | 2017-05-22 17:46 | Medical Consult ---
Consultation Date of Consultation: May 22, 2017. Attending Physician: Yovani Pinto M.D. Reason for Consultation: Medical: Care History of Present Illness 76 year old female with past medical history of atrial fibrillation, hypertension, asthma/COPD, dyslipidemia and osteoarthritis. Patient failed outpatient conservative management and presented to the hospital for an elective Right total knee arthroplasty. Procedure went uneventful We were consulted for medical co care Past Medical/Surgical History Medical Problems: (1) Chronic obstructive pulmonary disease Status: Acute (2) Failure of outpatient treatment Status: Acute (3) Hypokalemia Status: Acute (4) Hypoxemia Status: Acute (5) Shortness of breath Status: Acute Family History FHx: chronic respiratory condition Social History Smoking Status: Current Some Day Smoker Drug Use: none Marital Status: Housing Status: lives alone Occupation Status: retired Allergies Coded Allergies: Chocolate (Verified Allergy, Mild, RASH, 05/22/17) Azithromycin (Verified Allergy, Unknown, THROAT BURNED-LOST WT, 05/01/17) Fluticasone (Verified Allergy, Unknown, FROM ADVAIR, CHEST PAIN, 05/01/17) ALLERGY TO ADVAIR Penicillins (Verified Allergy, Unknown, UNKNOWN-HAS TOLERATED ROCEPHIN IN PAST, 05/01/17) PCN ALLERGY IDENTIFIED FROM ALLERGY TESTING Procaine (Verified Allergy, Unknown, ANAPHYLAXIS/MOUTH SWELLING/SOB, 05/01) Salmeterol (Verified Allergy, Unknown, FROM ADVAIR, CHEST PAIN., 05/01/17) ALLERGY TO ADVAIR Moxifloxacin (Verified Adverse Reaction, Unknown, NAUSEA & VOMITING, 05/01) NSAIDs (Verified Adverse Reaction, Unknown, AVOID DUE TO ULCER HX, ) Zolpidem (Verified Adverse Reaction, Unknown, SLEEP WALKING, 05/01/17) Current Inpatient Medications Current Inpatient Medications Medications (Trade) Dose Ordered Sig/Cyndy Route Start Time Stop Time Status Last Admin Dose Admin Clindamycin Phosphate 54 ml @ 100 mls/hr PREOP IV 05/22/17 06:00 05/22/17 18:00 05/22/17 12:16 100 MLS/HR Acetaminophen (Tylenol Tab) 1,000 mg PREOP PO 05/22/17 06:00 05/22/17 18:00 05/22/17 11:08 1,000 MG Dexamethasone (Decadron Tab) 8 mg PREOP PO 05/22/17 06:00 05/22/17 18:00 05/22/17 11:07 8 MG Famotidine (Pepcid Tab) 20 mg PREOP PO 05/22/17 06:00 05/22/17 18:00 05/22/17 11:08 20 MG Gabapentin (Neurontin Cap) 300 mg PREOP PO 05/22/17 06:00 05/22/17 18:00 05/22/17 11:08 300 MG Metoclopramide HCl (Reglan Tab) 10 mg PREOP PO 05/22/17 06:00 05/22/17 18:00 05/22/17 11:08 10 MG Oxycodone HCl (Oxycontin Tab) 10 mg PREOP PO 05/22/17 06:00 05/22/17 18:00 05/22/17 11:07 10 MG Albuterol (Ventolin Hfa Inhaler) 1-2 PUFFS Q4H PRN INH 05/22/17 14:00 06/21/17 13:59 Albuterol Sulfate (Ventolin 0.083% 2.5MG/3ML Neb) 2.5 mg QID PRN INH 05/22/17 14:00 06/21/17 13:59 Atorvastatin Calcium (Lipitor Tab) 40 mg QPM PO 05/22/17 21:00 06/21/17 20:59 Budesonide/ Formoterol Fumarate (Symbicort 160/ 4.5 Inh) 2 puffs BID PRN INH 05/22/17 14:00 06/21/17 13:59 Clonazepam (Klonopin Tab) 1 mg HS PO 05/22/17 21:00 06/21/17 20:59 Escitalopram Oxalate (Lexapro Tab) 10 mg QAM PO 05/23/17 09:00 06/22/17 08:59 Gabapentin (Neurontin Cap) 300 mg TID PO 05/22/17 21:00 06/21/17 20:59 Lamotrigine (Lamictal Tab) 150 mg HS PO 05/22/17 21:00 06/21/17 20:59 Montelukast Sodium (Singulair Tab) 10 mg HS PO 05/22/17 21:00 06/21/17 20:59 Pramipexole Dihydrochloride (miraPEX TAB) 0.5 mg HS PO 05/22/17 21:00 06/21/17 20:59 Miscellaneous Information (Order Awaiting Action) 1 ea QS N/A 05/22/17 16:00 06/21/17 15:59 Miscellaneous Information (Order Awaiting Action) 1 ea QS N/A 05/23/17 00:00 06/22/17 00:00 Pantoprazole Sodium (Protonix Tab) 40 mg BID PO 05/22/17 21:00 06/21/17 20:59 Trazodone HCl (Desyrel Tab) 150 mg HS PO 05/22/17 21:00 06/21/17 20:59 Morphine Sulfate (MoRPHine SULFATE INJ) 2 mg Q4HWA PRN IV 05/22/17 14:00 06/05/17 13:59 Morphine Sulfate (MoRPHine SULFATE INJ) 4 mg Q4HWA PRN IV 05/22/17 14:00 06/05/17 13:59 Clindamycin Phosphate 600 mg/ Dextrose 54 ml @ 100 mls/hr Q8H IV 05/22/17 20:00 05/23/17 04:33 Oxycodone HCl (Roxicodone Immediate Rel Tab) 1 TABLET FOR PAIN RATING... Q4H PRN PO 05/22/17 14:00 06/05/17 13:59 Oxycodone HCl (Oxycontin Tab) 10 mg Q12 PO 05/22/17 21:00 06/05/17 20:59 Acetaminophen (Tylenol Tab) 1,000 mg Q8 PO 05/22/17 22:00 06/21/17 21:59 Magnesium Hydroxide (Milk Of Magnesia Susp) 30 ml Q6H PRN PO 05/22/17 14:00 06/21/17 13:59 Senna (Senokot Tab) 17.2 mg HS PO 05/22/17 21:00 06/21/17 20:59 Docusate Sodium (coLACE CAP) 100 mg BID PO 05/22/17 21:00 06/21/17 20:59 Al Hydrox/Mg Hydrox/Simethicone (Maalox Max Susp) 15 ml Q4H PRN PO 05/22/17 14:00 06/21/17 13:59 Multivitamins (Multivitamin Tab) 1 tab QAM PO 05/23/17 09:00 06/22/17 08:59 Ondansetron HCl (Zofran Inj) 4 mg Q6H PRN IV 05/22/17 14:00 06/21/17 13:59 Ferrous Gluconate (Ferrous Gluconate Tab) 324 mg TIDM PO 05/22/17 17:45 06/21/17 17:59 05/22/17 17:07 324 MG Apixaban (Eliquis Tab) 5 mg BID PO 05/23/17 21:00 06/22/17 20:59 Potassium Chloride/Sodium Chloride 1,000 ml @ 100 mls/hr Q10H IV 05/22/17 16:30 06/21/17 16:29 05/22/17 17:06 100 MLS/HR Review of Systems Constitutional: No fever, No chills, No sweats, No weight loss, No weakness, No fatigue, No problem reported Eyes: No worsening of vision, No eye pain, No redness, No discharge, No diplopia, No problem reported ENT: No hearing loss, No unusual epistaxis, No nasal symptoms, No sore throat, No tinnitus, No dental problems, No trouble swallowing, No problem reported Respiratory: No cough, No sputum, No wheezing, No shortness of breath, No dyspnea on exertion, No dyspnea at rest, No hemoptysis, No problem reported Cardiovascular: No chest pain, No orthopnea, No PND, No edema, No claudication , No palpitations, No problem reported Abdomen: No pain, No nausea, No vomiting, No diarrhea, No constipation, No GI bleeding, No problem reported Musculoskeletal: No joint pain, No muscle pain, No swelling, No calf pain, No problem reported Genitourinary - Female: No dysuria, No urinary frequency, No urinary urgency, No urinary incontinence, No urinary retention, No hematuria, No dysmenorrhea, No menorrhagia, No metrorrhagia, No rash, No vaginal bleeding, No vaginal discharge, No vaginal itching, No vulvodynia, No , No problem reported Neurologic: No memory loss, No paralysis, No weakness, No numbness/tingling, No vertigo, No balance problems, No problem reported Psychiatric: No depression symptoms, No anhedonism, No anxiety, No insomnia, No substance abuse, No problem reported Endocrine: No fatigue, No excessive thirst, No excessive urination, No problem reported Hematologic / Lymphatic: No abnormal bleeding/bruising, No clotting problems, No swollen lymph nodes, No night sweats, No problem reported Integumentary: No rash, No itch, No new/changing skin lesions, No color change , No bleeding, No problem reported Allergic / Immunologic: No environmental allergies, No seasonal allergies, No pet sensitivities, No food allergies, No hives, No frequent infections, No poor healing, No prolonged convalescence, No problem reported Physical Exam Date Time Temp Pulse Resp B/P (MAP) Pulse Ox O2 Delivery O2 Flow Rate FiO2 05/22/17 16:50 36.8 76 18 107/66 (80) 95 Nasal Cannula 3.0 05/22/17 15:25 36.4 71 18 122/64 94 Nasal Cannula 3 05/22/17 15:15 71 20 136/59 92 Nasal Cannula 3 05/22/17 15:05 66 19 130/64 94 Nasal Cannula 3 05/22/17 14:55 68 19 133/62 95 Nasal Cannula 3 05/22/17 14:45 70 20 126/61 96 Mask 4 05/22/17 14:35 70 20 131/65 91 Nasal Cannula 2 05/22/17 14:25 69 20 125/63 94 Nasal Cannula 2 05/22/17 14:15 69 18 118/66 100 Oxymask 10 05/22/17 14:05 70 19 121/60 100 Oxymask 10 05/22/17 13:55 36.0 70 16 127/57 96 Oxymask 10 05/22/17 11:37 68 18 94 Room Air 05/22/17 10:51 36.7 70 20 145/78 (100) 95 Room Air General Appearance: WD/WN, no apparent distress Head: normocephalic, atraumatic Eyes: normal inspection, EOMI ENT: normal ENT inspection, hearing grossly normal Neck: supple Respiratory/Chest: chest non-tender, lungs clear, normal breath sounds, no respiratory distress, no accessory muscle use Cardiovascular: regular rate, rhythm, no edema, no gallop, no JVD, no murmur Abdomen/GI: non tender, soft, no organomegaly, no pulsatile mass Back: normal inspection Extremities/Musculoskelatal: normal inspection, no calf tenderness, normal capillary refill, no pedal edema, normal range of motion, + pertinent finding ( right knee is wrapped) Neurologic/Psych: fiscal officer II-XII nml as tested, no motor/sensory deficits, alert, normal mood/affect, normal reflexes, oriented x 3 Skin: normal color, warm/dry, no rash Assessment & Plan 76 year old female with past medical history of atrial fibrillation, hypertension, asthma/COPD, dyslipidemia and osteoarthritis. Patient failed outpatient conservative management and presented to the hospital for an elective Right total knee arthroplasty. Procedure went uneventful Assessment: severe osteoarthritis right knee that failed outpatient conservative measures. Patient presented to the hospital for an elective orthopedic procedure Plan Status post right knee total arthroplasty went uneventful full Patient tolerated procedure well with minimal blood loss Appears to be stable Eliquis was started by primary team Continue outpatient medications Follow-up labs Ensure adequate oral/parenteral intake Pain management Physical therapy initiation as per primary orthopedic team DVT prophylaxis as per the choice of primary orthopedic team
[2017-05-22] MEDS ORDERED: NURSING VERBAL MED ORDER ONE (18:45)
[2017-05-22] MEDS: GABAPENTIN 300 MG CAP PO SCH (18:47)
[2017-05-22] MEDS: OXYCODONE HCL IR 5 MG TAB (IMMEDIATE RELEASE) PO PRN ×2 (18:49→22:56)
[2017-05-22] MEDS: DOCUSATE SODIUM 100 MG CAP PO SCH (20:24)
[2017-05-22] MEDS: SENNA 8.6 MG TAB PO SCH (20:25)
[2017-05-22] MEDS: CLINDAMYCIN IV 600 MG in DEXTROSE 5% 50ML 50 ML IV SCH (20:25)
[2017-05-22] MEDS: CLONAZEPAM 1 MG TAB PO SCH (20:26)
[2017-05-22] MEDS: PANTOprazole SOD 40 MG TAB PO SCH (20:26)
[2017-05-22] MEDS: OXYCODONE HCL 10 MG TABCR (OXYCONTIN) PO SCH (20:26)
[2017-05-22] MEDS: TRAZODONE HCL 50 MG TAB PO SCH (20:27)
[2017-05-22] MEDS: ATORVASTATIN 40 MG TAB PO SCH (20:27)
[2017-05-22] MEDS: PRAMIPEXOLE DIHYDROCHLORIDE 0.5 MG TAB PO SCH (20:28)
[2017-05-22] MEDS: MONTELUKAST SOD 10 MG TAB PO SCH (20:28)
[2017-05-22] MEDS ORDERED: GABAPENTIN 300 MG CAP PO SCH (21:00)
[2017-05-22] MEDS: ACETAMINOPHEN 500 MG TAB PO SCH (21:54)
[2017-05-23] VITALS (10 sets, daily range): BP systolic 84–156; BP diastolic 41–75; PULSE 61–87; TEMP 36–37.1; O2SAT 92–98
[2017-05-23] MEDS ORDERED: SODIUM CHLORIDE 0.9% 500ML 500 ML IV ONE (00:45)
[2017-05-23] MEDS: CLINDAMYCIN IV 600 MG in DEXTROSE 5% 50ML 50 ML IV SCH (03:45)
[2017-05-23] MEDS: SODIUM CHLOR 0.45% + 20MEQ KCL 1,000 ML IV SCH ×3 (03:45→22:23)
[2017-05-23] MEDS: AMPHETAMINE-DEXTROAMPHETAMINE 30 MG CAP PO SCH (05:44)
[2017-05-23] MEDS: GABAPENTIN 300 MG CAP PO SCH ×3 (05:45→18:19)
[2017-05-23] MEDS: PATIENT'S OWN CONTROLLED MED PO SCH ×3 (05:46→11:33)
[2017-05-23] MEDS: ACETAMINOPHEN 500 MG TAB PO SCH ×3 (05:46→22:08)
[2017-05-23 06:22] LABS: HEMATOCRIT 31.6 % (37-47); MEAN CORPUSCULAR HEMOGLOBIN 28.2 pg (25-34); MEAN CORPUSCULAR HGB CONC 31.6 g/dl (32-36); MEAN PLATELET VOLUME 9.9 fL (7.4-10.4); PLATELET COUNT 206 K/uL (130-400); RED CELL DISTRIBUTION WIDTH CV 14.2 % (11.5-14.5); RED CELL DISTRIBUTION WIDTH SD 46.6 fL (36.4-46.3); WHITE BLOOD COUNT 11.68 K/uL (4.8-10.8)
[2017-05-23 06:53] LABS: CALCIUM 8.4 mg/dl (8.5-10.1); CREATININE 0.67 mg/dl (0.60-1.20); POTASSIUM 3.9 mmol/L (3.5-5.1)
--- NOTE | 2017-05-23 07:10 | Orthopedic Progress Note ---
Orthopedic Progress Note Date of Service May 23, 2017. Subjective Post OP Day: 1 Reports: feeling well, pain controlled w PO medications, Denies: complaints, chest pain, SOB, nausea / vomiting, light headedness, calf pain Objective calves soft nontender, N/V intact, capillary refill less than 2 sec., dressing C /D/I, A&O x3, toes mobile, hemovac drainage (550cc/225cc) Date Time Temp Pulse Resp B/P (MAP) Pulse Ox O2 Delivery O2 Flow Rate FiO2 05/23/17 03:40 36.9 61 16 96/56 (69) 98 Nasal Cannula 2.0 05/23/17 02:21 94/58 (70) 05/23/17 00:20 84/41 (55) 05/23/17 00:15 85/56 (66) 05/22/17 23:34 36.9 56 16 99 Nasal Cannula 2.0 05/22/17 20:25 Nasal Cannula 2.0 05/22/17 19:04 100/61 (74) 05/22/17 19:00 36.7 55 18 86/56 (66) 94 Nasal Cannula 2.5 05/22/17 18:03 112/70 (84) 05/22/17 17:50 36.6 63 16 88/58 (68) 95 Nasal Cannula 3.0 05/22/17 16:50 36.8 76 18 107/66 (80) 95 Nasal Cannula 3.0 05/22/17 16:20 37.0 70 16 121/73 (89) 97 Nasal Cannula 2.0 05/22/17 15:50 36.5 71 16 126/76 (93) 94 Nasal Cannula 2.0 05/22/17 15:50 94 Nasal Cannula 2.0 05/22/17 15:50 94 Nasal Cannula 2.0 05/22/17 15:25 36.4 71 18 122/64 94 Nasal Cannula 3 05/22/17 15:15 71 20 136/59 92 Nasal Cannula 3 05/22/17 15:05 66 19 130/64 94 Nasal Cannula 3 05/22/17 14:55 68 19 133/62 95 Nasal Cannula 3 05/22/17 14:45 70 20 126/61 96 Mask 4 05/22/17 14:35 70 20 131/65 91 Nasal Cannula 2 05/22/17 14:25 69 20 125/63 94 Nasal Cannula 2 05/22/17 14:15 69 18 118/66 100 Oxymask 10 05/22/17 14:05 70 19 121/60 100 Oxymask 10 05/22/17 13:55 36.0 70 16 127/57 96 Oxymask 10 05/22/17 11:37 68 18 94 Room Air 05/22/17 10:51 36.7 70 20 145/78 (100) 95 Room Air Laboratory Results 24 Hours: Test 05/23/17 05:44 Hematocrit 31.6 % Hemoglobin 10.0 g/dL Assessment & Plan Assessment: POD#1 Right TKA Plan: DVT - Eliquis Medical Management PT/OT Discharge - due to too much drainage she will stay. Hopeful to go [facility] tomorrow.
[2017-05-23] MEDS: OXYCODONE HCL 10 MG TABCR (OXYCONTIN) PO SCH ×2 (08:10→21:06)
[2017-05-23] MEDS: OXYCODONE HCL IR 5 MG TAB (IMMEDIATE RELEASE) PO PRN ×3 (08:10→16:50)
[2017-05-23] MEDS: DOCUSATE SODIUM 100 MG CAP PO SCH ×2 (08:59→09:01)
[2017-05-23] MEDS: PANTOprazole SOD 40 MG TAB PO SCH ×2 (08:59→21:17)
[2017-05-23] MEDS: FERROUS GLUCONATE 324 MG TAB PO SCH ×3 (08:59→16:51)
[2017-05-23] MEDS: ESCITALOPRAM OXALATE 10 MG TAB PO SCH (09:00)
[2017-05-23] MEDS: MULTIVITAMIN TAB PO SCH (09:00)
[2017-05-23] MEDS: AMPHETAMINE DEXTROAMPHETAMINE PO SCH (12:27)
[2017-05-23] MEDS: ALBUTEROL HFA 8 GM INHALER INH PRN (12:29)
[2017-05-23] MEDS: MoRPHine SULFATE 4 MG/ML 1 ML CARP\\VIAL IV PRN ×2 (15:44→19:33)
[2017-05-23] MEDS ORDERED: NURSING VERBAL MED ORDER ONE (20:45)
[2017-05-23] MEDS: SENNA 8.6 MG TAB PO SCH (21:00)
[2017-05-23] MEDS: HYDROmorphone INJ 1 MG/ML SYR IV PRN (21:05)
[2017-05-23] MEDS: CLONAZEPAM 1 MG TAB PO SCH (21:06)
[2017-05-23] MEDS: APIXABAN 2.5 MG TAB PO SCH (21:06)
[2017-05-23] MEDS: TRAZODONE HCL 50 MG TAB PO SCH (22:04)
[2017-05-23] MEDS: MONTELUKAST SOD 10 MG TAB PO SCH (22:06)
[2017-05-23] MEDS: ATORVASTATIN 40 MG TAB PO SCH (22:06)
[2017-05-23] MEDS: PRAMIPEXOLE DIHYDROCHLORIDE 0.5 MG TAB PO SCH (22:07)
[2017-05-24] VITALS (7 sets, daily range): BP systolic 136–174; BP diastolic 70–82; PULSE 70–91; TEMP 36.7–36.9; O2SAT 90–98
[2017-05-24] MEDS: ALBUTEROL HFA 8 GM INHALER INH PRN ×2 (00:01→17:09)
[2017-05-24] MEDS: OXYCODONE HCL IR 5 MG TAB (IMMEDIATE RELEASE) PO PRN ×4 (01:15→19:35)
[2017-05-24] MEDS: HYDROmorphone INJ 1 MG/ML SYR IV PRN ×3 (04:13→16:16)
[2017-05-24] MEDS: GABAPENTIN 300 MG CAP PO SCH ×3 (05:32→17:54)
[2017-05-24] MEDS: AMPHETAMINE-DEXTROAMPHETAMINE 30 MG CAP PO SCH (05:32)
[2017-05-24] MEDS: PATIENT'S OWN CONTROLLED MED PO SCH ×2 (05:32→12:00)
[2017-05-24] MEDS: ACETAMINOPHEN 500 MG TAB PO SCH ×3 (05:33→21:36)
--- NOTE | 2017-05-24 06:48 | Orthopedic Progress Note ---
Orthopedic Progress Note Date of Service May 24, 2017. Subjective Post OP Day: 2 Reports: feeling well, pain controlled w PO medications, Denies: complaints, chest pain, SOB, nausea / vomiting, light headedness, calf pain Objective calves soft nontender, N/V intact, capillary refill less than 2 sec., dressing C /D/I, A&O x3, toes mobile has limited ROM of her right ankle due to previous ankle sx ? fusion Date Time Temp Pulse Resp B/P (MAP) Pulse Ox O2 Delivery O2 Flow Rate FiO2 05/24/17 01:00 Room Air 05/23/17 23:07 37.1 87 18 156/75 (102) 92 Room Air 05/23/17 15:45 Room Air 05/23/17 15:12 36.7 68 16 113/57 (75) 94 Room Air 05/23/17 12:22 37.1 68 22 102/56 (71) 92 Room Air 05/23/17 08:39 65 18 93 Room Air 05/23/17 08:11 92 Room Air 05/23/17 08:01 36.0 67 28 98/54 (69) 92 Room Air 05/23/17 07:15 Room Air Assessment & Plan Assessment: POD#2 Right TKA Plan: DVT - Eliquis Medical Management PT/OT awaiting approval for [facility] Discharge Planning Discharge Planning: rehab hospital DVT Prophylaxis: TEDs, SCDs, other (Eliquis) Therapy: Physical Therapy
--- NOTE | 2017-05-24 06:51 | Discharge Instructions ---
Discharge Instructions Date of Service May 24, 2017. Admission Reason for Admission: Osteoarthritis, Right Knee Discharge Discharge Diagnosis / Problem: Right Total Knee Replacement Discharge Goals Goal(s): Decrease discomfort, Improve function, Increase independence Activity Recommendations Activity Level: Up Ad Yovana Therapies: Physical Therapy (TKA protocol), Weight Bearing Status (WBAT with walker) Weightbearing Status: Right weightbearing (as tolerated) . Additional Information Patient informed of condition: Yes Advance Directives: No DNR: No Level of Care: Acute Rehab Communicable Disease: No Prognosis: Stable Evans Catheter: No Instructions / Follow-Up Instructions / Follow-Up ACTIVITY RECOMMENDATIONS: SELF CARE INSTRUCTIONS AFTER TOTAL KNEE REPLACEMENT A. You may need to continue a physical therapy program after discharge from the hospital. There are several options available to you. Your doctor will assist you in selecting the best one for you. 1. An out-patient facility 2 to 3 times a week for therapy or home therapy. 2. Continue working on all exercises taught to you in the hospital. Your goals should be to increase bending of your knee to 90 degrees and beyond and to fully straighten your knee. B. You may progress at your own pace from walking with a walker or crutches to a cane; then to no assistive devices. C. Make walking a part of your daily routine. Be up as much as comfortable with rest periods throughout the day. Rest with leg elevation is very important. Use the ice wrap frequently for the first 3-4 weeks. D. There are no restrictions on activities. You may ride in a car, shop, participate in modern languages professor and all social activities. E. Wear the long elastic stockings (REMI hose) 20 hours a day for 2 weeks after surgery. They can be removed several times a day for laundering and for a bath. F. You may shower, no tub baths until cleared by your doctor. SPECIAL CARE INSTRUCTIONS: VERY IMPORTANT TO READ AND REVIEW A. There are a few signs you need to watch for after you are home. Call [facility] if you notice any of the followin. Increased severe knee pain. Some pain is expected especially when you exercise. 2. Increased swelling in your leg or knee; pain or swelling of the calf muscle in either lower leg. 3. Any fluid drainage from the incision. 4. Shortness of breath or chest pain. B. Please call [facility] at if you have any concerns or questions about your operation or recovery. The doctor or his nurse will return your call promptly. C. You must take antibiotics before dental work, bladder, bowel or other surgery. Your doctor will provide you with a permanent care to carry describing this precaution. IMPORTANT: * REMEMBER TO TAKE ASPIRIN, 81 MG, TWICE DAILY FOR 4 WEEKS UNLESS OTHERWISE DIRECTED. THIS IS YOUR BLOOD THINNER. * HIGH RISK PATIENTS MAY BE PRESCRIBED A STRONGER BLOOD THINNER. THIS WILL BE PROVIDED AT DISCHARGE. * CALL IF INCREASED PAIN, REDNESS, DRAINAGE OR FEVER GREATER THAT 101. * WEAR REMI HOSE 20 HOURS PER DAY FOR 2 WEEKS. * YOU MAY HAVE A LARGE BAND-AID LIKE DRESSING (SILVERON). THIS WILL REMAIN ON YOUR INCISION FOR 7 DAYS, THEN CAN BE REMOVED. IF INCISION IS LEAKING THROUGH DRESSING, CALL THE OFFICE . FOLLOW UP VISIT: If appointment is not already scheduled: Please call [facility] to make a follow-up appointment for 2 weeks after your surgery at . Current Hospital Diet Patient's current hospital diet: Regular Diet Discharge Diet Recommended Diet: Regular Diet Procedures Procedures Performed: Right total knee arthroplasty Pending Studies Studies pending at discharge: no Physician Orders On Transfer Dressing Changes: Silverlon- This is a large adhesive bandage that contains silver ions. This helps your incision heal by fighting off bacteria and protecting it from the outside environment. You are permitted to shower with this dressing. This will remain on your incision for 7 days and then should be removed. Some visible blood or drainage through the dressing window is normal. If there is significant drainage or leaking noted before the 7 days notify your doctor's office immediately. Once removed, keep incision clean and dry. If there is any drainage or redness noted, please call your surgeon. Laboratory Results Hemoglobin A1c Test 05/01/17 13:05 Range/Units Estimated Average Glucose 120 mg/dl Hemoglobin A1c 5.8 H 4.5-5.6 % Lipid Panel Test 05/22/17 10:51 Range/Units Triglycerides Level 64 0-150 mg/dl Cholesterol Level 114 0-200 mg/dl HDL Cholesterol 52 mg/dl Cholesterol/HDL Ratio 2.2 LDL Cholesterol, Calculated 49 mg/dl Medical Emergencies . Who to Call and When: Medical Emergencies: If at any time you feel your situation is an emergency, please call 911 immediately. . Non-Emergent Contact Non-Emergency issues call your: Primary Care Provider, Surgeon . . "Provider Documentation" section prepared by Jeremiah Rodrigues. . Core Measure Problem Core Measures: None [place] Drug Monitoring Program Search Results: patient reviewed within database, no issues identified
[2017-05-24 07:59] LABS: EOS % 0.1 %; EOS ABS # 0.01 K/uL (0-0.5); HEMATOCRIT 27.9 % (37-47); HEMOGLOBIN 8.7 g/dL (12.0-16.0); IG# 0.02 K/uL (0.00-0.02); LYMPH % 24.2 %; LYMPH ABS # 2.08 K/uL (1.2-3.4); MEAN CELL VOLUME 87.2 fL (80-100); MEAN CORPUSCULAR HEMOGLOBIN 27.2 pg (25-34); MEAN CORPUSCULAR HGB CONC 31.2 g/dl (32-36); MEAN PLATELET VOLUME 9.4 fL (7.4-10.4); MONO % 9.9 %; MONO ABS # 0.85 K/uL (0.11-0.59); NEUT % 65.6 %; NEUT ABS # 5.65 K/uL (1.4-6.5); PLATELET COUNT 186 K/uL (130-400); RED CELL DISTRIBUTION WIDTH CV 14.5 % (11.5-14.5); RED CELL DISTRIBUTION WIDTH SD 46.5 fL (36.4-46.3); WHITE BLOOD COUNT 8.61 K/uL (4.8-10.8)
[2017-05-24 08:37] LABS: CALCIUM 8.5 mg/dl (8.5-10.1); CREATININE 0.44 mg/dl (0.60-1.20); POTASSIUM 3.8 mmol/L (3.5-5.1)
[2017-05-24] MEDS: DOCUSATE SODIUM 100 MG CAP PO SCH ×2 (09:00→21:00)
[2017-05-24] MEDS: OXYCODONE HCL 10 MG TABCR (OXYCONTIN) PO SCH ×2 (09:22→21:39)
[2017-05-24] MEDS: SODIUM CHLOR 0.45% + 20MEQ KCL 1,000 ML IV SCH ×2 (09:22→21:40)
[2017-05-24] MEDS: FERROUS GLUCONATE 324 MG TAB PO SCH ×3 (09:23→17:54)
[2017-05-24] MEDS: PANTOprazole SOD 40 MG TAB PO SCH ×2 (09:24→21:38)
[2017-05-24] MEDS: ESCITALOPRAM OXALATE 10 MG TAB PO SCH (09:24)
[2017-05-24] MEDS: MULTIVITAMIN TAB PO SCH (09:24)
[2017-05-24] MEDS: APIXABAN 2.5 MG TAB PO SCH ×2 (10:39→21:39)
[2017-05-24] MEDS: AMPHETAMINE DEXTROAMPHETAMINE PO SCH (13:16)
[2017-05-24] MEDS ORDERED: MoRPHine SULFATE 2 MG/ML CARP IV PRN (14:15)
[2017-05-24] MEDS ORDERED: HydrALAZINE HCL 20 MG/ML VIAL IV. PRN (14:15)
--- NOTE | 2017-05-24 15:53 | Progress Note ---
Subjective Date of Service: May 24, 2017. Subjective Pt evaluation today including: conversation w/ patient, physical exam, chart review, lab review, review of studies, review of inpatient medication list Resting comfortably in bed No distress noted Pain controlled No incidents overnight Problem List Medical Problems: (1) Chronic obstructive pulmonary disease Status: Acute (2) Failure of outpatient treatment Status: Acute (3) Hypokalemia Status: Acute (4) Hypoxemia Status: Acute (5) Shortness of breath Status: Acute Review of Systems Constitutional: No fever, No chills, No weight loss Respiratory: No cough, No sputum, No wheezing, No shortness of breath Cardiac: No chest pain, No orthopnea, No PND, No edema Abdomen: No pain, No nausea, No vomiting, No diarrhea, No constipation Musculoskeletal: + joint pain, No muscle pain, No swelling, No calf pain Female : No dysuria, No urinary frequency, No hematuria, No incontinence Neurologic: No memory loss, No paralysis, No weakness, No numbness/tingling Psychiatric: No depression symptoms, No anhedonism, No anxiety, No insomnia Skin: No rash, No itch Objective Vital Signs Date Time Temp Pulse Resp B/P (MAP) Pulse Ox O2 Delivery O2 Flow Rate FiO2 05/24/17 14:42 86 18 174/70 (104) 98 05/24/17 13:59 161/82 (108) 05/24/17 07:48 36.9 82 18 169/80 (109) 90 Room Air 05/24/17 07:40 Room Air 05/24/17 01:00 Room Air 05/23/17 23:07 37.1 87 18 156/75 (102) 92 Room Air Physical Exam General Appearance: WD/WN, no apparent distress Eyes: normal inspection, PERRL, EOMI, sclerae normal Neck: supple, no adenopathy, thyroid normal, no JVD Respiratory/Chest: chest non-tender, lungs clear, normal breath sounds, no respiratory distress Cardiovascular: regular rate, rhythm, no edema, no gallop, no JVD Abdomen: normal bowel sounds, non tender, soft, no organomegaly Extremities: normal range of motion, non-tender, normal inspection, no pedal edema Neurologic/Psychiatric: no motor/sensory deficits, alert, normal mood/affect, oriented x 3 Skin: normal color, warm/dry, no rash Lymphatic: no adenopathy Laboratory Results Last 24 Hours Test 05/23/17 21:33 05/24/17 07:39 Magnesium Level 1.6 mg/dl White Blood Count 8.61 K/uL Red Blood Count 3.20 M/uL Hemoglobin 8.7 g/dL Hematocrit 27.9 % Mean Corpuscular Volume 87.2 fL Mean Corpuscular Hemoglobin 27.2 pg Mean Corpuscular Hemoglobin Concent 31.2 g/dl Platelet Count 186 K/uL Mean Platelet Volume 9.4 fL Neutrophils (%) (Auto) 65.6 % Lymphocytes (%) (Auto) 24.2 % Monocytes (%) (Auto) 9.9 % Eosinophils (%) (Auto) 0.1 % Basophils (%) (Auto) 0.0 % Neutrophils # (Auto) 5.65 K/uL Lymphocytes # (Auto) 2.08 K/uL Monocytes # (Auto) 0.85 K/uL Eosinophils # (Auto) 0.01 K/uL Basophils # (Auto) 0.00 K/uL RDW Standard Deviation 46.5 fL RDW Coefficient of Variation 14.5 % Immature Granulocyte % (Auto) 0.2 % Immature Granulocyte # (Auto) 0.02 K/uL Ovalocytes 1+ Sodium Level 139 mmol/L Potassium Level 3.8 mmol/L Chloride Level 106 mmol/L Carbon Dioxide Level 29 mmol/L Anion Gap 5.0 mmol/L Blood Urea Nitrogen 12 mg/dl Creatinine 0.44 mg/dl Est Creatinine Clear Calc Drug Dose 110.2 ml/min Estimated GFR () 112.8 Estimated GFR (Non- 97.4 BUN/Creatinine Ratio 28.2 Random Glucose 110 mg/dl Calcium Level 8.5 mg/dl Assessment and Plan 76 year old female with past medical history of atrial fibrillation, hypertension, asthma/COPD, dyslipidemia and osteoarthritis. Patient failed outpatient conservative management and presented to the hospital for an elective Right total knee arthroplasty. Procedure went uneventful Severe OA right knee s/p arthroplasty Failed OP measures Hemodynamically stable Cont eliquis at this time Follow up CBC Pain management with morphine PRN Hydralazine PRN HTN Physical therapy initiation as per primary orthopedic team
[2017-05-24] MEDS ORDERED: ACET-24 PO (16:52)
[2017-05-24] MEDS ORDERED: OXYSR10 PO (16:52)
[2017-05-24] MEDS: ALBUT/IPRATROP 3MG/0.5MG NEB 3 ML VIAL INH SCH (20:45)
[2017-05-24] MEDS: SENNA 8.6 MG TAB PO SCH (21:00)
[2017-05-24] MEDS: PRAMIPEXOLE DIHYDROCHLORIDE 0.5 MG TAB PO SCH (21:35)
[2017-05-24] MEDS: MONTELUKAST SOD 10 MG TAB PO SCH (21:36)
[2017-05-24] MEDS: TRAZODONE HCL 50 MG TAB PO SCH (21:37)
[2017-05-24] MEDS: CLONAZEPAM 1 MG TAB PO SCH (21:37)
[2017-05-24] MEDS: ATORVASTATIN 40 MG TAB PO SCH (21:38)
[2017-05-25] VITALS (15 sets, daily range): BP systolic 76–132; BP diastolic 47–84; PULSE 69–144; TEMP 36.6–37.1; O2SAT 93–100
[2017-05-25] MEDS: OXYCODONE HCL IR 5 MG TAB (IMMEDIATE RELEASE) PO PRN ×4 (04:14→17:19)
[2017-05-25] MEDS: PATIENT'S OWN CONTROLLED MED PO SCH ×2 (05:53→12:00)
[2017-05-25] MEDS: GABAPENTIN 300 MG CAP PO SCH ×3 (05:58→17:20)
[2017-05-25] MEDS: ACETAMINOPHEN 500 MG TAB PO SCH ×3 (05:59→22:40)
[2017-05-25] MEDS: AMPHETAMINE-DEXTROAMPHETAMINE 30 MG CAP PO SCH (05:59)
--- NOTE | 2017-05-25 06:10 | Orthopedic Progress Note ---
Orthopedic Progress Note Date of Service May 25, 2017. Subjective Post OP Day: 3 Reports: feeling well, pain controlled w PO medications, Denies: complaints, chest pain, SOB, nausea / vomiting, light headedness, calf pain Objective calves soft nontender, N/V intact, capillary refill less than 2 sec., dressing C /D/I (silverlon intact), A&O x3, toes mobile Date Time Temp Pulse Resp B/P (MAP) Pulse Ox O2 Delivery O2 Flow Rate FiO2 05/24/17 22:55 36.7 91 18 136/71 (92) 92 Room Air 05/24/17 20:47 70 18 94 Room Air 05/24/17 19:45 90 92 Room Air 05/24/17 19:30 Room Air 05/24/17 15:30 36.9 89 18 162/75 (104) 92 Room Air 05/24/17 15:25 Room Air 05/24/17 14:42 86 18 174/70 (104) 98 05/24/17 13:59 161/82 (108) 05/24/17 07:48 36.9 82 18 169/80 (109) 90 Room Air 05/24/17 07:40 Room Air Laboratory Results 24 Hours: Test 05/24/17 07:39 White Blood Count 8.61 K/uL Red Blood Count 3.20 M/uL Hemoglobin 8.7 g/dL Hematocrit 27.9 % Mean Corpuscular Volume 87.2 fL Mean Corpuscular Hemoglobin 27.2 pg Mean Corpuscular Hemoglobin Concent 31.2 g/dl Platelet Count 186 K/uL Mean Platelet Volume 9.4 fL Neutrophils (%) (Auto) 65.6 % Lymphocytes (%) (Auto) 24.2 % Monocytes (%) (Auto) 9.9 % Eosinophils (%) (Auto) 0.1 % Basophils (%) (Auto) 0.0 % Neutrophils # (Auto) 5.65 K/uL Lymphocytes # (Auto) 2.08 K/uL Monocytes # (Auto) 0.85 K/uL Eosinophils # (Auto) 0.01 K/uL Basophils # (Auto) 0.00 K/uL Assessment & Plan Assessment: POD#3 Right TKA Plan: DVT - [facility] Medical Management PT/OT awaiting approval for [facility]- may transfer today if approved Discharge Planning Discharge Planning: rehab hospital DVT Prophylaxis: TEDs, SCDs, other (Eliquis) Therapy: Physical Therapy
[2017-05-25] MEDS: ALBUT/IPRATROP 3MG/0.5MG NEB 3 ML VIAL INH SCH ×4 (07:31→19:52)
[2017-05-25] MEDS ORDERED: METOPROLOL TARTRATE 1 MG/ML VIAL IV STA (07:54)
[2017-05-25] MEDS ORDERED: METOPROLOL TARTRATE 25 MG TAB PO ONE (08:15)
[2017-05-25] MEDS: DILTIAZEM HCL 120 MG ER CAP PO SCH (08:54)
[2017-05-25] MEDS: OXYCODONE HCL 10 MG TABCR (OXYCONTIN) PO SCH ×2 (08:54→20:40)
[2017-05-25] MEDS: FERROUS GLUCONATE 324 MG TAB PO SCH ×2 (08:56→13:13)
[2017-05-25] MEDS: DOCUSATE SODIUM 100 MG CAP PO SCH ×2 (08:56→20:40)
[2017-05-25] MEDS: APIXABAN 2.5 MG TAB PO SCH ×2 (08:57→20:40)
[2017-05-25] MEDS: ESCITALOPRAM OXALATE 10 MG TAB PO SCH (08:57)
[2017-05-25] MEDS: MULTIVITAMIN TAB PO SCH (08:57)
[2017-05-25] MEDS: PANTOprazole SOD 40 MG TAB PO SCH ×2 (08:58→20:40)
[2017-05-25] MEDS: AMPHETAMINE DEXTROAMPHETAMINE PO SCH (12:00)
--- NOTE | 2017-05-25 12:33 | DIAGNOSTIC IMAGING REPORT ---
CHEST ONE VIEW PORTABLE CLINICAL HISTORY: shortness of breath, tachypnea COMPARISON STUDY: Chest radiograph May 01, 2017. FINDINGS: Lung volumes are normal. Lungs are clear. There is no pneumothorax or pleural effusion. Cardiomediastinal silhouette is normal. Pulmonary vascularity is normal. The appearance of the chest is unchanged. IMPRESSION: No acute cardiopulmonary findings. Electronically signed by: Bull Kim M.D. 05/25/2017 12:32 PM Dictated Date/Time: 05/25/2017 12:31 PM
[2017-05-25] MEDS ORDERED: NURSING VERBAL MED ORDER ONE ×3 (12:45→21:30)
[2017-05-25] MEDS ORDERED: SODIUM CHLORIDE 0.9% 500ML 500 ML IV STA (12:47)
[2017-05-25] MEDS: SODIUM CHLORIDE 0.9% 1000ML 1,000 ML IV SCH ×2 (13:19→20:46)
--- NOTE | 2017-05-25 13:45 | Progress Note ---
Subjective Date of Service: May 25, 2017. Subjective Pt evaluation today including: conversation w/ patient, physical exam, chart review, lab review, review of studies, review of inpatient medication list Pt noted to be short of breath this AM Found to be in afib with RVR Was transferred to [facility] for further monitorig Problem List Medical Problems: (1) Chronic obstructive pulmonary disease Status: Acute (2) Failure of outpatient treatment Status: Acute (3) Hypokalemia Status: Acute (4) Hypoxemia Status: Acute (5) Shortness of breath Status: Acute Review of Systems Constitutional: No fever, No chills, No sweats, No weight loss Eyes: No worsening of vision, No eye pain, No redness, No discharge Respiratory: + shortness of breath, + dyspnea at rest, No cough, No sputum, No wheezing, No dyspnea on exertion Cardiac: No chest pain, No orthopnea, No PND, No edema, No claudication Abdomen: No pain, No nausea, No vomiting, No diarrhea, No constipation Musculoskeletal: No joint pain, No muscle pain, No swelling, No calf pain Female : No dysuria, No urinary frequency, No hematuria, No incontinence Neurologic: No memory loss, No paralysis, No weakness, No numbness/tingling Psychiatric: No depression symptoms, No anhedonism, No anxiety, No insomnia Endo: No fatigue, No excessive thirst Skin: No rash, No itch Objective Vital Signs Date Time Temp Pulse Resp B/P (MAP) Pulse Ox O2 Delivery O2 Flow Rate FiO2 05/25/17 12:30 95 18 105/70 (82) 96 Nasal Cannula 2.0 05/25/17 12:00 36.6 140 20 86/59 (68) 96 Nasal Cannula 2.0 05/25/17 11:21 100 18 98 Nasal Cannula 2.0 05/25/17 11:13 37.0 142 30 120/70 (87) 99 Nasal Cannula 2.0 05/25/17 09:39 36.7 133 30 121/76 (91) 100 Nasal Cannula 2.0 05/25/17 08:44 36.8 144 28 131/84 (100) 97 Nasal Cannula 2.0 05/25/17 07:45 94 Room Air 05/25/17 07:40 36.7 137 18 132/79 (96) 94 05/24/17 22:55 36.7 91 18 136/71 (92) 92 Room Air 05/24/17 20:47 70 18 94 Room Air 05/24/17 19:45 90 92 Room Air 05/24/17 19:30 Room Air 05/24/17 15:30 36.9 89 18 162/75 (104) 92 Room Air 05/24/17 15:25 Room Air 05/24/17 14:42 86 18 174/70 (104) 98 05/24/17 13:59 161/82 (108) Physical Exam General Appearance: WD/WN, no apparent distress Eyes: normal inspection, PERRL, EOMI, sclerae normal Neck: supple, no adenopathy, thyroid normal, no JVD Respiratory/Chest: chest non-tender, lungs clear, normal breath sounds, no respiratory distress Cardiovascular: no edema, no gallop, no JVD, no murmur, + tachycardia, + irregularly irregular Abdomen: normal bowel sounds, non tender, soft, no organomegaly Neurologic/Psychiatric: no motor/sensory deficits, alert, normal mood/affect, oriented x 3 Skin: normal color, warm/dry, no rash Lymphatic: no adenopathy Laboratory Results Last 24 Hours Test 05/25/17 08:12 Magnesium Level 1.5 mg/dl Troponin I 0.017 ng/ml Assessment and Plan 76 year old female with past medical history of atrial fibrillation, hypertension, asthma/COPD, dyslipidemia and osteoarthritis. Patient failed outpatient conservative management and presented to the hospital for an elective Right total knee arthroplasty. Procedure went uneventful Severe OA right knee s/p arthroplasty Pain managed with morphine PRN Dispo per primary team Referral to [facility] Afib with RVR Resumed on home dilacor 240 mg PO daily, metoprolol 25 mg x 1 given Transferred to tele on 05/25/17 Improved with IVF and resumption of meds Cont eliquis at this time HTN Currently hypotensive Hydralazine PRN COPD, no exacerbations at this time Resume nebs once afib RVR resolved Cont singulair ADHD Stable on adderall Pt is FULL CODE DVT ppx with eliquis
[2017-05-25] MEDS: CLONAZEPAM 1 MG TAB PO SCH (20:39)
[2017-05-25] MEDS: TRAZODONE HCL 50 MG TAB PO SCH (20:40)
[2017-05-25] MEDS: PRAMIPEXOLE DIHYDROCHLORIDE 0.5 MG TAB PO SCH (20:40)
[2017-05-25] MEDS: ATORVASTATIN 40 MG TAB PO SCH (20:40)
[2017-05-25] MEDS: SENNA 8.6 MG TAB PO SCH (20:40)
[2017-05-25] MEDS: MONTELUKAST SOD 10 MG TAB PO SCH (20:42)
[2017-05-25] MEDS ORDERED: MAGNESIUM OXIDE 400 MG TAB PO SCH (22:00)
[2017-05-25] MEDS: CHOLECALCIFEROL 1000 INTER.UNIT TAB PO SCH (22:39)
[2017-05-25] MEDS: ALBUTEROL HFA 8 GM INHALER INH PRN (22:40)
[2017-05-26] VITALS (8 sets, daily range): BP systolic 102–109; BP diastolic 56–66; PULSE 78–94; TEMP 36.6–37; O2SAT 90–100
[2017-05-26] MEDS: GABAPENTIN 300 MG CAP PO SCH ×2 (06:25→11:55)
[2017-05-26] MEDS: AMPHETAMINE-DEXTROAMPHETAMINE 30 MG CAP PO SCH (06:25)
[2017-05-26] MEDS: ACETAMINOPHEN 500 MG TAB PO SCH ×2 (06:28→14:11)
--- NOTE | 2017-05-26 07:01 | Orthopedic Progress Note ---
Orthopedic Progress Note Date of Service May 26, 2017. Subjective Post OP Day: 4 Reports: feeling well, pain controlled w PO medications, Denies: complaints, chest pain, SOB, nausea / vomiting, light headedness, calf pain Objective calves soft nontender, N/V intact, capillary refill less than 2 sec., dressing C /D/I, A&O x3, toes mobile Date Time Temp Pulse Resp B/P (MAP) Pulse Ox O2 Delivery O2 Flow Rate FiO2 05/26/17 04:05 90 Room Air 05/26/17 03:23 37.0 81 16 109/66 (80) 90 Room Air 05/26/17 00:05 93 Room Air 05/25/17 23:55 37.1 78 18 108/65 (79) 93 Room Air 05/25/17 20:30 93 Nasal Cannula 1.5 05/25/17 19:51 36.9 75 20 86/49 (61) 93 Nasal Cannula 2.0 05/25/17 16:00 96 Room Air 05/25/17 15:23 36.7 69 20 87/47 (60) 97 Nasal Cannula 2.0 05/25/17 14:23 142 30 100 2.0 05/25/17 14:18 78 95 05/25/17 12:30 95 18 105/70 (82) 96 Nasal Cannula 2.0 05/25/17 12:00 36.6 140 20 86/59 (68) 96 Nasal Cannula 2.0 05/25/17 11:21 100 18 98 Nasal Cannula 2.0 05/25/17 11:13 37.0 142 30 120/70 (87) 99 Nasal Cannula 2.0 05/25/17 09:39 36.7 133 30 121/76 (91) 100 Nasal Cannula 2.0 05/25/17 08:44 36.8 144 28 131/84 (100) 97 Nasal Cannula 2.0 05/25/17 07:45 94 Room Air 05/25/17 07:40 36.7 137 18 132/79 (96) 94 Assessment & Plan Assessment: POD#4 Right TKA Plan: DVT - Eliquis Medical Management PT/OT Should be able to go to [facility] today if medically cleared. Discharge Planning Discharge Planning: rehab hospital DVT Prophylaxis: TEDs, SCDs, other (Eliquis) Therapy: Physical Therapy
[2017-05-26] MEDS: ALBUT/IPRATROP 3MG/0.5MG NEB 3 ML VIAL INH SCH ×2 (07:09→11:14)
[2017-05-26] MEDS: ESCITALOPRAM OXALATE 10 MG TAB PO SCH (07:36)
[2017-05-26] MEDS: DILTIAZEM HCL 120 MG ER CAP PO SCH (07:36)
[2017-05-26] MEDS: PANTOprazole SOD 40 MG TAB PO SCH (07:36)
[2017-05-26] MEDS: OXYCODONE HCL 10 MG TABCR (OXYCONTIN) PO SCH (07:36)
[2017-05-26] MEDS: DOCUSATE SODIUM 100 MG CAP PO SCH (07:37)
[2017-05-26] MEDS: FERROUS GLUCONATE 324 MG TAB PO SCH ×2 (07:37→11:55)
[2017-05-26] MEDS: APIXABAN 2.5 MG TAB PO SCH (07:37)
--- NOTE | 2017-05-26 10:08 | Progress Note ---
Subjective Date of Service: May 26, 2017. Subjective Pt evaluation today including: conversation w/ patient, physical exam, lab review, review of inpatient medication list Pain: knee pain, controlled PO Intake: improving Voiding: no voiding problems patient feeling well, in NSR on monitor today appetite slowly improving urinating well, + flatus clear to go to [facility] today Problem List Medical Problems: (1) Chronic obstructive pulmonary disease Status: Acute (2) Failure of outpatient treatment Status: Acute (3) Hypokalemia Status: Acute (4) Hypoxemia Status: Acute (5) Shortness of breath Status: Acute Review of Systems Constitutional: + weakness, + fatigue Musculoskeletal: + joint pain (right knee) Female : + urinary frequency, + incontinence All Other Systems: Reviewed and Negative Medications Current Inpatient Medications Medications (Trade) Dose Ordered Sig/Cyndy Route Start Time Stop Time Status Last Admin Dose Admin Albuterol (Ventolin Hfa Inhaler) 1-2 PUFFS Q4H PRN INH 05/22/17 14:00 06/21/17 13:59 05/25/17 22:40 60 PUFFS Albuterol Sulfate (Ventolin 0.083% 2.5MG/3ML Neb) 2.5 mg QID PRN INH 05/22/17 14:00 06/21/17 13:59 05/23/17 08:39 2.5 MG Atorvastatin Calcium (Lipitor Tab) 40 mg QPM PO 05/22/17 21:00 06/21/17 20:59 05/25/17 20:40 40 MG Budesonide/ Formoterol Fumarate (Symbicort 160/ 4.5 Inh) 2 puffs BID PRN INH 05/22/17 14:00 06/21/17 13:59 Clonazepam (Klonopin Tab) 1 mg HS PO 05/22/17 21:00 06/21/17 20:59 05/25/17 20:39 1 MG Escitalopram Oxalate (Lexapro Tab) 10 mg QAM PO 05/23/17 09:00 06/22/17 08:59 05/26/17 07:36 10 MG Lamotrigine (Lamictal Tab) 150 mg HS PO 05/22/17 21:00 06/21/17 20:59 05/25/17 20:41 150 MG Montelukast Sodium (Singulair Tab) 10 mg HS PO 05/22/17 21:00 06/21/17 20:59 05/25/17 20:42 10 MG Pramipexole Dihydrochloride (miraPEX TAB) 0.5 mg HS PO 05/22/17 21:00 06/21/17 20:59 05/25/17 20:40 0.5 MG Pantoprazole Sodium (Protonix Tab) 40 mg BID PO 05/22/17 21:00 06/21/17 20:59 05/26/17 07:36 40 MG Trazodone HCl (Desyrel Tab) 150 mg HS PO 05/22/17 21:00 06/21/17 20:59 05/25/17 20:40 150 MG Oxycodone HCl (Roxicodone Immediate Rel Tab) 1 TABLET FOR PAIN RATING... Q4H PRN PO 05/22/17 14:00 06/05/17 13:59 05/25/17 17:19 10 MG Oxycodone HCl (Oxycontin Tab) 10 mg Q12 PO 05/22/17 21:00 06/05/17 20:59 05/26/17 07:36 10 MG Acetaminophen (Tylenol Tab) 1,000 mg Q8 PO 05/22/17 22:00 06/21/17 21:59 05/26/17 06:28 1,000 MG Magnesium Hydroxide (Milk Of Magnesia Susp) 30 ml Q6H PRN PO 05/22/17 14:00 06/21/17 13:59 Senna (Senokot Tab) 17.2 mg HS PO 05/22/17 21:00 06/21/17 20:59 05/25/17 20:40 17.2 MG Docusate Sodium (coLACE CAP) 100 mg BID PO 05/22/17 21:00 06/21/17 20:59 05/25/17 20:40 100 MG Al Hydrox/Mg Hydrox/Simethicone (Maalox Max Susp) 15 ml Q4H PRN PO 05/22/17 14:00 06/21/17 13:59 Multivitamins (Multivitamin Tab) 1 tab QAM PO 05/23/17 09:00 06/22/17 08:59 05/25/17 08:57 1 TAB Ondansetron HCl (Zofran Inj) 4 mg Q6H PRN IV 05/22/17 14:00 06/21/17 13:59 Ferrous Gluconate (Ferrous Gluconate Tab) 324 mg TIDM PO 05/22/17 17:45 06/21/17 17:59 05/26/17 07:37 324 MG Apixaban (Eliquis Tab) 5 mg BID PO 05/23/17 21:00 06/22/17 20:59 05/26/17 07:37 5 MG Gabapentin (Neurontin Cap) 300 mg TID@0600,1200,1800 PO 05/22/17 19:00 06/21/17 18:59 05/26/17 06:25 300 MG Amphetamine/ Dextroamphetamine (Adderall Xr 30 Mg) 30 mg DAILY@0600 PO 05/23/17 06:00 06/22/17 05:59 05/26/17 06:25 30 MG Non-Formulary Medication (Patient'S Own Controlled Med) 1 ea DAILY@0600 PO 05/23/17 06:00 06/06/17 05:59 05/24/17 05:32 1 EA Amphetamine/ Dextroamphetamine (Adderall Xr 15 Mg) 15 mg DAILY@1200 PO 05/23/17 12:00 06/22/17 11:59 05/25/17 12:00 15 MG Non-Formulary Medication (Patient'S Own Controlled Med) 1 ea DAILY@1200 PO 05/23/17 12:00 06/06/17 11:59 05/25/17 12:00 1 EA Hydromorphone HCl (Dilaudid Inj) 0.5 mg Q3H PRN IV 05/23/17 21:00 06/06/17 20:59 05/24/17 16:16 0.5 MG Hydralazine HCl (HydrALAZINE INJ) 10 mg Q4 PRN IV. 05/24/17 14:15 06/23/17 14:14 05/24/17 14:19 10 MG Morphine Sulfate (MoRPHine SULFATE INJ) 2 mg Q3HWA PRN IV 05/24/17 14:15 06/07/17 14:14 Albuterol/ Ipratropium (Duoneb) 3 ml QIDR INH 05/24/17 20:00 06/23/17 19:59 05/26/17 07:09 3 ML Diltiazem HCl (Dilacor Xr Cap) 240 mg QAM PO 05/25/17 09:00 06/24/17 08:59 05/26/17 07:36 240 MG Sodium Chloride 1,000 ml @ 125 mls/hr Q8H IV 05/25/17 13:00 06/24/17 12:59 05/25/17 20:46 125 MLS/HR Cholecalciferol (Vitamin D Tab) 4,000 inter.unit BID PO 05/25/17 22:00 06/24/17 21:59 05/25/17 22:39 4,000 INTER.UNIT Magnesium Oxide (Mag-Ox Tab) 400 mg Q2D@2100 PO 05/25/17 22:00 06/24/17 21:59 05/25/17 22:39 400 MG Magnesium Oxide (Mag-Ox Tab) 200 mg Q2D@2100 PO 05/26/17 21:00 06/25/17 20:59 Objective Vital Signs Date Time Temp Pulse Resp B/P (MAP) Pulse Ox O2 Delivery O2 Flow Rate FiO2 05/26/17 08:00 Room Air 05/26/17 07:48 36.6 81 18 109/63 (78) 100 05/26/17 07:09 94 16 94 Room Air 05/26/17 04:05 90 Room Air 05/26/17 03:23 37.0 81 16 109/66 (80) 90 Room Air 05/26/17 00:05 93 Room Air 05/25/17 23:55 37.1 78 18 108/65 (79) 93 Room Air 05/25/17 20:30 93 Nasal Cannula 1.5 05/25/17 19:51 36.9 75 20 86/49 (61) 93 Nasal Cannula 2.0 05/25/17 16:00 96 Room Air 05/25/17 15:23 36.7 69 20 87/47 (60) 97 Nasal Cannula 2.0 05/25/17 14:23 142 30 100 2.0 05/25/17 14:18 78 95 05/25/17 12:30 95 18 105/70 (82) 96 Nasal Cannula 2.0 05/25/17 12:00 36.6 140 20 86/59 (68) 96 Nasal Cannula 2.0 05/25/17 11:21 100 18 98 Nasal Cannula 2.0 05/25/17 11:13 37.0 142 30 120/70 (87) 99 Nasal Cannula 2.0 Physical Exam General Appearance: WD/WN, no apparent distress Eyes: normal inspection, EOMI, sclerae normal ENT: normal ENT inspection, hearing grossly normal, pharynx normal Neck: supple, no adenopathy, no JVD, trachea midline Respiratory/Chest: chest non-tender, lungs clear, normal breath sounds, no respiratory distress, no accessory muscle use Cardiovascular: regular rate, rhythm, no edema, no gallop, no JVD, no murmur Abdomen: normal bowel sounds, non tender, soft, no organomegaly Extremities: no pedal edema, no calf tenderness, normal capillary refill, pelvis stable, + swelling (knee, decreased ROM) 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 Patient failed outpatient conservative management and presented to the hospital for an elective Right total knee arthroplasty. Procedure went uneventful Severe OA right knee s/p arthroplasty clear to d/c to [place] today, she is in NSR on her typical home medications pain control with oxycodone poor appetite, slowly improving Afib with RVR, resolved, back in NSR and rates controlled continue Diltiazem 240 mg PO daily continue Eliquis HTN stable COPD, no exacerbations at this time Cont singulair ADHD Stable on adderall Fibromyalgia: managed with Oxycodone, Gabapentin Pt is FULL CODE DVT ppx with eliquis clear for discharge medically, vitals and lab work stable
[2017-05-26] MEDS: PATIENT'S OWN CONTROLLED MED PO SCH ×2 (11:55)
[2017-05-26] MEDS: AMPHETAMINE DEXTROAMPHETAMINE PO SCH (11:55)
[2017-05-26] MEDS: CHOLECALCIFEROL 1000 INTER.UNIT TAB PO SCH (11:55)
[2017-05-26] MEDS: MULTIVITAMIN TAB PO SCH (11:55)
[2017-05-26] MEDS: OXYCODONE HCL IR 5 MG TAB (IMMEDIATE RELEASE) PO PRN (12:44)
[2017-05-26] MEDS ORDERED: MAGNESIUM OXIDE 400 MG TAB PO SCH (21:00)
--- NOTE | 2017-05-28 16:18 | DISCHARGE SUMMARY ---
DISCHARGE DIAGNOSIS: Degenerative joint disease, right knee. SECONDARY DIAGNOSES: Attention deficit hyperactivity disorder, anxiety, asthma, chronic obstructive pulmonary disease, depression, diabetes mellitus, hyperlipidemia, history of methicillin-resistant Staphylococcus aureus, pneumonia, restless legs syndrome, and rheumatoid arthritis. CONSULTS: Dr. Vincenzo Simmons. COMPLICATIONS: None. PROCEDURE: Right total knee arthroplasty performed by Dr. Pinto on 05/22/2017. BRIEF HISTORY: As dictated in the history and physical. HOSPITAL SUMMARY: The patient was admitted on the above-noted date and had the above-noted surgery performed, which she tolerated well. On the first postoperative day, she was feeling well and pain was controlled. She had no complaints. Calves were soft, nontender, and neurovascularly intact. Dressings were clean, dry and intact. Toes were mobile. Vital signs were stable. She was afebrile and hemoglobin was 10.0. The hospitalist medical team continued to follow her during her stay and she continued to remain stable. By her second postoperative day, she was feeling well and had no complaints. Dressings were intact. Toes were mobile. Calves were soft and nontender and it was felt that the patient would benefit from a rehab stay at [facility] [address] and plans were to wait for approval. The rest of her stay was essentially uneventful and by 05/26/2017, she continued to remain medically stable as well as orthopedically stable and it was felt that she could be transferred to [facility] [address] for further physical therapy and care. For further review, please see chart. LAB AND X-RAY DATA: As per chart. DISCHARGE INSTRUCTIONS: The patient was discharged to [facility] on 05/26/2017. DIET: Regular. ACTIVITY: Follow TKA instruction sheets and special care instructions. The patient is to have PT and OT protocols and weightbearing as tolerated on the right lower extremity. Follow up with Dr. Pinto in 2 weeks. The patient is to call for an appointment if one has not been made for you. DISCHARGE MEDICATIONS: Acetaminophen 1000 mg p.o. q. 8 hours, oxycodone 5-10 mg p.o. q. 4 hours p.r.n., and OxyContin 10 mg p.o. q. 12 hours. Resume home meds as listed in discharge instructions section and stop taking aspirin, Voltaren topical gel, prednisone and stop taking the original oxycodone dosage, which had been changed.
== END 2017-05-26 15:50 | DRG 470 ==
LOC: C.ACU 09:54 → C.3E 11:27 → ENRESERV 14:31 → C.2T 05-25 11:51
PROVIDERS: ADMIT Orthopaedic Surgery; ATTEND Orthopaedic Surgery
PROC: 0SRC0J9 Replacement of Right Knee Joint with Synthetic Substitute, Cemented, Open Approach (ICD-10-PCS; principal; 2017-05-22 12:15)
DX: M17.11 Unilateral primary osteoarthritis, right knee (principal); J44.9 Chronic obstructive pulmonary disease, unspecified; E11.9 Type 2 diabetes mellitus without complications; Z86.14 Personal history of Methicillin resistant Staphylococcus aureus infection; M06.9 Rheumatoid arthritis, unspecified; G25.81 Restless legs syndrome; M79.7 Fibromyalgia; I48.91 Unspecified atrial fibrillation; I10 Essential (primary) hypertension; E78.5 Hyperlipidemia, unspecified; F17.200 Nicotine dependence, unspecified, uncomplicated; Z79.82 Long term (current) use of aspirin; E87.6 Hypokalemia; R09.02 Hypoxemia; F90.9 Attention-deficit hyperactivity disorder, unspecified type; Z88.0 Allergy status to penicillin; Z96.652 Presence of left artificial knee joint

== ENCOUNTER → 2017-05-22 | Outpatient (CLI) | payer OTHER ==
[~2017-05-22] MED LIST changes: +ACET-24 PO; -BRIM0.2S18 OPB; -CHOL100027 PO; +CHOL1TAB76 PO; +CHOL400C7 PO; +CLON1TAB10 PO; -CLON1TAB3 PO; +DICL1GEL12 TD; +DICL1GEL12 TOP; +DILT-213 PO; +DILT240C48 PO; -DLCSR120 PO; -DXY100 PO; +GABA-1218 PO; +GABA400C PO; -IPRASOL4 INH; +LAMO150T PO; -LAMO150T32 PO; -NRN100 PO; +OXYC-164 PO; -OXYC-57 PO; +OXYC-594 PO; +OXYSR10 PO; +PANT40TA PO; +RXC5 PO; -TRAV0.00 OPB; +VAREPAK2 PO; +ZINC1TAB PO
== END | disposition home or self-care (01) ==
LOC: C.LABSPEC 11:28
PROVIDERS: ATTEND Family Medicine
DX: E78.5 Hyperlipidemia, unspecified (principal)

== ENCOUNTER → 2017-07-30 | Outpatient (CLI) | payer OTHER ==
[~2017-07-30] MED LIST changes: +ACET-24 PO; -ACETAMINOPHEN 500 MG TAB PO SCH; -ASPI81TA28 PO; -BUPIVACAINE 0.25% 30 ML VIAL ONE; -BUPIVACAINE 0.5 % 5 MG/1 ML PF 10ML VIAL ONE; -CLINDAMYCIN 600 MG/54 ML D5W 54 ML IV SCH; -CeleBREX 200 MG CAP PO SCH; -DEXAMETHASONE 4 MG TAB PO SCH; -DICL1GEL12 TOP; +DILT-213 PO; -DILT120C PO; -FAMOTIDINE 20 MG TAB PO SCH; -FENTANYL CITRATE INJ 50 MCG/1 ML 2 ML VIAL ONE; -GABAPENTIN 300 MG CAP PO SCH; -LACTATED RINGER'S 1000ML 1,000 ML IV SCH; -LACTATED RINGER'S 1000ML 500 ML IV SCH; -LACTATED RINGER'S 1000ML IV SCH; -METOCLOPRAMIDE HCL 10 MG TAB PO SCH; -MIDAZOLAM HCL 1 MG/ML 2ML VIAL ONE; -OXYC-164 PO; -OXYCODONE HCL 10 MG TABCR (OXYCONTIN) PO SCH; +OXYSR10 PO; -PRED10TA PO; -ROPIVACAINE 5MG/ML 30 ML 150 MG, BUPIVACAINE 0.5% MPF INJ 30 ML, EpINEphrine HCL INJ 0.... INFIL SCH; +RXC5 PO
== END | disposition home or self-care (01) ==
LOC: C.LAB1850 15:26
PROVIDERS: ATTEND Family Medicine
DX: E83.42 Hypomagnesemia (principal)

== ENCOUNTER → 2017-08-07 | Outpatient (CLI) | payer OTHER ==
--- NOTE | 2017-08-07 13:22 | DIAGNOSTIC IMAGING REPORT ---
ABDOMEN 2VIEW W/PA CHEST RTN CLINICAL HISTORY: R10.31 right lower quadrant abdominal pain COMPARISON STUDY: Chest x-ray dated 05/25/2017 FINDINGS: The erect chest reveals no free intraperitoneal air. There is no lobar consolidation. Slight interstitial prominence without lung zone predominance remain stable. Erect and supine views the abdomen reveal mildly dilated right mid abdominal small bowel loops. There are scattered air-fluid levels on the erect study. There are no transition zones indicate bowel obstruction. There is a lumbar levoscoliosis. There are postsurgical changes in the lumbar spine. There are postsurgical changes of a total right hip arthroplasty. IMPRESSION: 1. Mildly dilated small bowel loops with scattered air-fluid levels. This likely represents a mild ileus. 2. No conventional radiographic evidence of a high-grade bowel obstruction 2. No evidence of free air Electronically signed by: Ernie Hernandez M.D. 08/07/2017 1:21 PM Dictated Date/Time: 08/07/2017 1:18 PM
[2017-08-07 14:39] LABS: BASO % 0.6 %; BASO ABS # 0.03 K/uL (0-0.2); EOS % 3.1 %; EOS ABS # 0.17 K/uL (0-0.5); HEMOGLOBIN 12.6 g/dL (12.0-16.0); IG# 0.01 K/uL (0.00-0.02); LYMPH % 41.2 %; LYMPH ABS # 2.23 K/uL (1.2-3.4); MEAN CORPUSCULAR HEMOGLOBIN 25.8 pg (25-34); MEAN CORPUSCULAR HGB CONC 30.7 g/dl (32-36); MONO % 8.7 %; MONO ABS # 0.47 K/uL (0.11-0.59); NEUT % 46.2 %; PLATELET COUNT 265 K/uL (130-400); RED CELL DISTRIBUTION WIDTH CV 16.2 % (11.5-14.5); RED CELL DISTRIBUTION WIDTH SD 50.1 fL (36.4-46.3); WHITE BLOOD COUNT 5.41 K/uL (4.8-10.8)
[2017-08-07 15:07] LABS: ALBUMIN 3.5 gm/dl (3.4-5.0); ALT/SGPT 15 U/L (12-78); BLOOD UREA NITROGEN 17 mg/dl (7-18); CALCIUM 9.7 mg/dl (8.5-10.1); CARBON DIOXIDE 28 mmol/L (21-32); CREATININE 0.63 mg/dl (0.60-1.20); GLUCOSE 125 mg/dl (70-99); POTASSIUM 3.4 mmol/L (3.5-5.1); SODIUM 138 mmol/L (136-145)
[2017-08-07 15:10] LABS: ALKALINE PHOSPHATASE 125 U/L (45-117); AST/SGOT 13 U/L (15-37)
== END | disposition home or self-care (01) ==
LOC: C.RAD1850 12:56
PROVIDERS: ATTEND Family Medicine
DX: R10.31 Right lower quadrant pain (principal)

== ENCOUNTER → 2017-08-21 | Outpatient (CLI) | payer OTHER ==
[~2017-08-21] MED LIST changes: +OPTIRAY 320 IV PRN
--- NOTE | 2017-08-21 13:47 | DIAGNOSTIC IMAGING REPORT ---
CT ABD/PELVIS IV AND ORAL CONT CLINICAL HISTORY: R10.31 Abdominal pain, RLQ (right lower quadrant)Pt with ongoing PAIN, HISTORY OF DIVERTICULITIS. COMPARISON STUDY: July 17, 2006 TECHNIQUE: Following the IV administration of 92 mL of Optiray-320, CT scan of the abdomen and pelvis was performed from the lung bases to the proximal femurs. Images are reviewed in the axial, sagittal, and coronal planes. IV contrast was administered without complication. A dose lowering technique was utilized adhering to the principles of ALARA. CT DOSE: 433.40 mGy.cm FINDINGS: Lower chest: There is respiratory motion artifact. There are bilateral hilar calcifications. Liver: There is a stable 13 mm hypodensity within the right hepatic lobe peripherally consistent with a cyst. Gallbladder: Evaluation limited due to respiratory motion artifact. No definite calculi. Spleen: Normal in size and attenuation. Pancreas: Unremarkable. Adrenal glands: Unremarkable. Kidneys: There is symmetric renal cortical enhancement. The kidneys are normal in size without hydronephrosis. Bowel: There are fluid-filled loops of colon and small bowel. No transition zones are visualized. By history the appendix is surgically absent. There is no acute diverticulitis. Peritoneum: There is no intraperitoneal free air or abdominal ascites. Vasculature: The abdominal aorta is normal in course and caliber. Adenopathy: There is a borderline enlarged right common femoral lymph node. Pelvic viscera: The uterus is surgically absent. There is a stable 24 mm left adnexal cyst. Skeletal structures: There are postsurgical changes of a total right hip arthroplasty. There are postsurgical changes present within the lumbar spine. IMPRESSION: 1. No evidence of bowel obstruction. No evidence of free air 2. Surgically absent appendix. No evidence of acute diverticulitis 3. Multiple fluid-filled loops of small bowel and colon. While nonspecific, this could indicate an enteritis or diarrheal state. 4. Borderline enlarged right common femoral lymph node Electronically signed by: Ernie Hernandez M.D. 08/21/2017 1:46 PM Dictated Date/Time: 08/21/2017 1:39 PM
== END | disposition home or self-care (01) ==
LOC: C.CTS 12:08
PROVIDERS: ATTEND Family Medicine
DX: R10.31 Right lower quadrant pain (principal); Z87.19 Personal history of other diseases of the digestive system

== ENCOUNTER → 2017-09-15 | Outpatient (CLI) | payer OTHER ==
[~2017-09-15] MED LIST changes: -OPTIRAY 320 IV PRN
[2017-09-15 13:15] LABS: BASO % 0.4 %; BASO ABS # 0.03 K/uL (0-0.2); EOS % 4.8 %; EOS ABS # 0.35 K/uL (0-0.5); HEMATOCRIT 41.4 % (37-47); HEMOGLOBIN 13.1 g/dL (12.0-16.0); IG# 0.02 K/uL (0.00-0.02); MEAN CELL VOLUME 82.8 fL (80-100); MEAN CORPUSCULAR HEMOGLOBIN 26.2 pg (25-34); MEAN CORPUSCULAR HGB CONC 31.6 g/dl (32-36); MEAN PLATELET VOLUME 9.9 fL (7.4-10.4); MONO ABS # 0.65 K/uL (0.11-0.59); NEUT % 56.5 %; NEUT ABS # 4.08 K/uL (1.4-6.5); PLATELET COUNT 276 K/uL (130-400); RED CELL DISTRIBUTION WIDTH CV 16.3 % (11.5-14.5); RED CELL DISTRIBUTION WIDTH SD 49.1 fL (36.4-46.3); WHITE BLOOD COUNT 7.23 K/uL (4.8-10.8)
[2017-09-15 13:57] LABS: ALBUMIN 3.6 gm/dl (3.4-5.0); ALT/SGPT 20 U/L (12-78); AST/SGOT 16 U/L (15-37); BLOOD UREA NITROGEN 21 mg/dl (7-18); CALCIUM 9.9 mg/dl (8.5-10.1); CARBON DIOXIDE 27 mmol/L (21-32); CREATININE 0.63 mg/dl (0.60-1.20); GLUCOSE 79 mg/dl (70-99); POTASSIUM 4.1 mmol/L (3.5-5.1); SODIUM 137 mmol/L (136-145)
[2017-09-15 13:59] LABS: ALKALINE PHOSPHATASE 143 U/L (45-117); TOTAL PROTEIN 7.2 gm/dl (6.4-8.2)
== END | disposition home or self-care (01) ==
LOC: C.LAB1850 11:54
PROVIDERS: ATTEND Family Medicine
DX: R10.31 Right lower quadrant pain (principal)

== ENCOUNTER 2018-07-01 20:22 | Inpatient (IN) ==
[2018-07-01] MEDS ORDERED: dilTIAZem HCl 5 MG/ML 5 ML VIAL IV STA (20:38)
[2018-07-01] MEDS ORDERED: ALBUT/IPRATROP 3MG/0.5MG NEB 3 ML VIAL NEB STA (20:38)
[2018-07-01] MEDS: dilTIAZem HCl 125 MG in DEXTROSE 5% 100 ML IV SCH (21:03)
[2018-07-01 21:14] LABS: Basophils # (auto) 0.02 K/uL (0-0.2); Basophils % (auto) 0.1 %; Eosinophils # (auto) 0.09 K/uL (0-0.5); Eosinophils % (auto) 0.5 %; Hematocrit (blood only) 37.7 % (37-47); Hemoglobin 12.2 g/dL (12.0-16.0); Immature Granulocytes # (auto) 0.07 K/uL (0.00-0.02); Immature Granulocytes % (auto) 0.4 %; Mean Corpuscular Hgb Conc 32.4 g/dL (32-36); Mean Corpuscular Volume 88.9 fL (80-100); Mean Platelet Volume 9.7 fL (7.4-10.4); Monocytes # (auto) 1.51 K/uL (0.11-0.59); Monocytes % (auto) 9.2 %; Neutrophils % (auto) 78.8 %; Platelet Count 282 K/uL (130-400); RDW Coefficient of Variation 13.7 % (11.5-14.5); RDW Standard Deviation 45.3 fL (36.4-46.3); Red Blood Count 4.24 M/uL (4.2-5.4); White Blood Count 16.39 K/uL (4.8-10.8)
--- NOTE | 2018-07-01 21:20 | XRay Report ---
XR chest 1V portable CLINICAL HISTORY: sob, cough COMPARISON STUDY: Chest radiograph August 07, 2017. FINDINGS: There has been interval development of a 6.1 cm airspace opacity within the right mid to up per lung. Left basilar opacity is noted. There is no evidence for pulmonary edema. No pneumothorax or pleural effusion is noted. No cavitation is identified. IMPRESSION: Right upper and left lower lung airspace opacities which favor multifocal pneumonia. Pos t treatment radiographs to ensure resolution are recommended. Electronically signed by: Bull Kim M.D. 07/01/2018 9:18 PM
[2018-07-01] MEDS ORDERED: SODIUM CHLORIDE 0.9% 1000ML 1,000 ML IV ONE (21:31)
[2018-07-01] MEDS ORDERED: SODIUM CHLORIDE 0.9% 1000ML 500 ML IV ONE ×2 (21:31→23:11)
[2018-07-01 21:35] LABS: Alanine Aminotransferase 53 U/L (12-78); Albumin Level 2.7 gm/dl (3.4-5.0); Aspartate Aminotransferase 49 U/L (15-37); BUN Creatinine Ratio 19.4 (10-20); Blood Urea Nitrogen 12 mg/dl (7-18); Carbon Dioxide 29 mmol/L (21-32); Chloride 102 mmol/L (98-107); Est GFR (African American) 99.6; Est GFR (Non-African American) 85.9; Glucose 117 mg/dl (70-99); Magnesium 1.7 mg/dl (1.8-2.4); Potassium 2.7 mmol/L (3.5-5.1); Sodium 138 mmol/L (136-145)
[2018-07-01] MEDS ORDERED: BENZONATATE 100 MG CAPSULE PO ONE (21:36)
[2018-07-01 21:37] LABS: INR 1.2 (0.9-1.1)
[2018-07-01 21:45] LABS: Albumin Globulin Ratio 0.6 (0.9-2); Alkaline Phosphatase 182 U/L (45-117); Bilirubin,Total 0.4 mg/dl (0.2-1); Globulin 4.3 gm/dl (2.5-4.0); Troponin I < 0.015 ng/ml (0-0.045)
[2018-07-01 22:06] LABS: Influenza A virus by PCR Neg for Influ A (Neg); Influenza B virus by PCR Neg for Influ B (Neg)
[2018-07-01] MEDS: AZITHROMYCIN 250 MG TAB PO ONE ×2 (22:09→22:16)
[2018-07-01] MEDS: cefTRIAXone SODIUM 1,000 MG/50 ML BAG IV STA ×2 (22:12→22:47)
[2018-07-01] MEDS ORDERED: BUDESONIDE/FORMOTEROL FUMARATE 160/4.5 60 PUFFS/INHALER INH PRN (22:40)
[2018-07-01] MEDS ORDERED: HYDROCORTISONE TOP PRN (22:40)
[2018-07-01] MEDS ORDERED: DICLOFENAC SOD 1% GEL 100 GM TUBE EXT PRN (22:40)
--- NOTE | 2018-07-01 23:37 | History & Physical Report ---
Date of Service July 01, 2018 Assessment & Plan (1) Pneumonia: Multilobar PNA/COPD exacerbation -Rocephin, azithromycin -Solumedrol 40 TID -Mucinex, tessalon -Xopenex nebs (duonebs held d/t elevated HR) -Flu neg Afib with RVR -RVR likely triggered by acute respiratory illness -Continue cardizem drip, titrate/convert to home meds as appropriate -Continue eliquis Hypokalemia/Hypomagnesemia -Repleted -Monitor Diarrhea -C.dif sent Conjunctivitis -polymyxin drops initiated DVTP:eliquis CODE: full Dispo: tele while on cardizem drip (2) Atrial fibrillation with RVR: (3) COPD exacerbation: (4) Acute hypokalemia: (5) Hypomagnesemia: (6) Conjunctivitis: (7) Diarrhea: History of Present Illness Chief Complaint: Cough Primary Care Provider: Faiza Costa MD Patient is a 77yo F PMH of COPD, afib, DJD who presents with severe cough and cold symptoms for 1 week. She made an appointment today to see her PCP, where she was found to be hypoxic requiring 2-3L of oxygen to maintain oxygen saturations above 88%. She does not use oxygen at home. She has had pneumonia several times in the past. She also reports diarrhea with fecal and urine incontinence in the past few days. She also notes R eye "goop", itchiness, and redness starting 1 day ago. In the ER, she was found to have an elevated WBC count, CXR indicated multilobar pneumonia. She was noted to be in afib with RVR, and a cardizem drip was started and was titrated in the ER. Allergies Allergy/AdvReac Type Severity Reaction Status Date / Time chocolate flavor Allergy Mild RASH Verified 07/01/18 23:26 fluticasone Allergy Unknown FROM Verified 07/01/18 23:26 ADVAIR, CHEST PAIN mivacurium Allergy Unknown THROAT Verified 07/01/18 23:26 BURNED-LOST WT Penicillins Allergy Unknown UNKNOWN-HAS Verified 07/01/18 23:26 TOLERATED ROCEPHIN IN PAST procaine Allergy Unknown ANAPHYLAXIS/MOUTH Verified 07/01/18 23:26 SWELLING/SOB salmeterol Allergy Unknown FROM Verified 07/01/18 23:26 ADVAIR, CHEST PAIN. moxifloxacin AdvReac Unknown NAUSEA & Verified 07/01/18 23:26 VOMITING NSAIDS (Non-Steroidal AdvReac Unknown AVOID DUE Verified 07/01/18 23:26 Anti-Inflamma TO ULCER HX zolpidem AdvReac Unknown SLEEP Verified 07/01/18 23:26 WALKING Home Medications Home Medications Medication Instructions Recorded Confirmed Type albuterol sulfate [Ventolin HFA] 2 puff INHALATION Q4 PRN 04/24/18 07/01/18 History apixaban [Eliquis] 5 mg PO BID 04/24/18 07/01/18 History aspirin 81 mg PO HS 04/24/18 07/01/18 History atorvastatin 40 mg PO HS 04/24/18 07/01/18 History budesonide-formoterol [Symbicort] 2 puff INHALATION BID PRN 04/24/18 07/01/18 History calcium carbonate-vitamin D3 1 tab PO BID 04/24/18 07/01/18 History [Calcium 600 + D(3)] cholecalciferol (vitamin D3) 2,000 unit PO DAILY 04/24/18 07/01/18 History [Vitamin D3] clonazepam [Klonopin] 1 mg PO HS 04/24/18 07/01/18 History dextroamphetamine-amphetamine 30 mg PO QAM 04/24/18 07/01/18 History [Adderall XR] diclofenac sodium [Voltaren] 1 applic TOPICAL QID PRN 04/24/18 07/01/18 History diltiazem HCl [DILT-XR] 240 mg PO DAILY 04/24/18 07/01/18 History escitalopram oxalate [Lexapro] 20 mg PO DAILY 04/24/18 07/01/18 History gabapentin 400 mg PO QID 04/24/18 07/01/18 History lamotrigine [Lamictal] 150 mg PO HS 04/24/18 07/01/18 History montelukast 10 mg PO PM 04/24/18 07/01/18 History multivitamin 1 tab PO DAILY 04/24/18 07/01/18 History pantoprazole [Protonix] 40 mg PO DAILY 04/24/18 07/01/18 History pramipexole [Mirapex] 0.5 mg PO HS 04/24/18 07/01/18 History trazodone 150 mg PO HS 04/24/18 07/01/18 History dextroamphetamine-amphetamine 15 mg PO QPM 07/01/18 07/01/18 History psyllium husk [Metamucil] 1 tbsp PO DAILY 07/01/18 07/01/18 History tramadol 50 mg PO QID PRN 07/01/18 07/01/18 History travoprost [Travatan Z] 1 drp OPL DAILY 07/01/18 07/01/18 History Past Med/Surg History Social History Current Living Situation: Family Other Information That Helps Us Care for You: No Feels Safe at Home: Yes Safety Concerns: Feels Safe At This Time Smoking Status: Unknown if ever smoked Hx Alcohol Use: No Hx Substance Use: No Beliefs That Will Affect Care: None Preferred Language: Tajik Communication Ability: Effective Assistant Pressman Required: No Review of Systems All systems reviewed & are unremarkable except as noted in HPI & below Constitutional: + body aches, + fatigue and + malaise; no fever and no chills Eyes: as per Subjective / HPI Respiratory: + cough, + chest congestion and + sputum production; no hemoptysis Cardiovascular: no chest pain Gastrointestinal: + change in bowel habits, + diarrhea/loose stools and + fecal incontinence Genitourinary (Female): + urinary incontinence Musculoskeletal: + joint pain (L ankle) Physical Exam 2 Vital Signs (Past 24 Hours): Last Vital Signs Temp 37.2 C 07/01/18 20:47 Pulse 115 H 07/01/18 23:30 Resp 33 H 07/01/18 23:30 BP 109/61 07/01/18 23:25 Pulse Ox 89 L 07/01/18 23:30 Constitutional: WD/WN, vitals as above + ill appearing Eyes: + conjunctival abnormality (injection with yellow discharge of R eye) ENMT: external ear and nose normal, oropharynx normal Neck: normal visual inspection Respiratory: Auscultation: + rhonchi and + wheezes (diffuse) Cardiovascular: Rate/Rhythm: regular rate; + abnormal rhythm (irregularly irregular) Extremities: no edema Gastrointestinal (Abdomen): normal bowel sounds, soft, nontender, no hepatosplenomegaly Musculoskeletal: no cyanosis or clubbing, extremities motor strength 5/5 (Pt wearing brace on L ankle) Skin: no rashes, warm and dry Neurologic: PERRL, EOMI, accommodation nl, no face palsy, no dysarthria Psychiatric: A+Ox3, euthymic affect Results & Data Laboratory Results 07/01/18 07/01/18 07/01/18 Range/Units 21:25 21:00 21:00 WBC (4.8-10.8) K/uL RBC (4.2-5.4) M/uL Hgb (12.0-16.0) g/dL Hct (37-47) % MCV (80-100) fL MCH (25-34) pg MCHC (32-36) g/dL RDW Std Deviation (36.4-46.3) fL RDW Coeff of Aspen (11.5-14.5) % Plt Count (130-400) K/uL MPV (7.4-10.4) fL Immature Gran % (Auto) % Neut % (Auto) % Lymph % (Auto) % [place] % (Auto) % Eos % (Auto) % Baso % (Auto) % Immature Gran # (Auto) (0.00-0.02) K/uL Neut # (Auto) (1.4-6.5) K/uL Lymph # (Auto) (1.2-3.4) K/uL [place] # (Auto) (0.11-0.59) K/uL Eos # (Auto) (0-0.5) K/uL Baso # (Auto) (0-0.2) K/uL PT 12.0 (9.0-12.0) Seconds INR 1.2 H (0.9-1.1) Sodium 138 (136-145) mmol/L Potassium 2.7 L (3.5-5.1) mmol/L Chloride 102 (98-107) mmol/L Carbon Dioxide 29 (21-32) mmol/L Anion Gap 8.0 (3-11) BUN 12 (7-18) mg/dl Creatinine 0.63 (0.6-1.2) mg/dl Est Cr Clr Drug Dosing 76.0 ml/min Est GFR ( Amer) 99.6 Est GFR (Non-Af Amer) 85.9 BUN/Creatinine Ratio 19.4 (10-20) Glucose 117 H (70-99) mg/dl Calcium 9.0 (8.5-10.1) mg/dl Magnesium 1.7 L (1.8-2.4) mg/dl Total Bilirubin 0.4 (0.2-1) mg/dl AST 49 H (15-37) U/L ALT 53 (12-78) U/L Alkaline Phosphatase 182 H (45-117) U/L Troponin I < 0.015 (0-0.045) ng/ml Total Protein 7.0 (6.4-8.2) gm/dl Albumin 2.7 L (3.4-5.0) gm/dl Globulin 4.3 H (2.5-4.0) gm/dl Albumin/Globulin Ratio 0.6 L (0.9-2) Lipase 78 (73-393) U/L TSH 0.985 (0.300-4.500) uIu/ml Influenza Type A (PCR) Neg for Influ A (Neg) Influenza Type B (PCR) Neg for Influ B (Neg) 07/01/18 Range/Units 21:00 WBC 16.39 H (4.8-10.8) K/uL RBC 4.24 (4.2-5.4) M/uL Hgb 12.2 (12.0-16.0) g/dL Hct 37.7 (37-47) % MCV 88.9 (80-100) fL MCH 28.8 (25-34) pg MCHC 32.4 (32-36) g/dL RDW Std Deviation 45.3 (36.4-46.3) fL RDW Coeff of [place]en 13.7 (11.5-14.5) % Plt Count 282 (130-400) K/uL MPV 9.7 (7.4-10.4) fL Immature Gran % (Auto) 0.4 % Neut % (Auto) 78.8 % Lymph % (Auto) 11.0 % [place] % (Auto) 9.2 % Eos % (Auto) 0.5 % Baso % (Auto) 0.1 % Immature Gran # (Auto) 0.07 H (0.00-0.02) K/uL Neut # (Auto) 12.90 H (1.4-6.5) K/uL Lymph # (Auto) 1.80 (1.2-3.4) K/uL [place] # (Auto) 1.51 H (0.11-0.59) K/uL Eos # (Auto) 0.09 (0-0.5) K/uL Baso # (Auto) 0.02 (0-0.2) K/uL PT (9.0-12.0) Seconds INR (0.9-1.1) Sodium (136-145) mmol/L Potassium (3.5-5.1) mmol/L Chloride (98-107) mmol/L Carbon Dioxide (21-32) mmol/L Anion Gap (3-11) BUN (7-18) mg/dl Creatinine (0.6-1.2) mg/dl Est Cr Clr Drug Dosing ml/min Est GFR ( Amer) Est GFR (Non-Af Amer) BUN/Creatinine Ratio (10-20) Glucose (70-99) mg/dl Calcium (8.5-10.1) mg/dl Magnesium (1.8-2.4) mg/dl Total Bilirubin (0.2-1) mg/dl AST (15-37) U/L ALT (12-78) U/L Alkaline Phosphatase (45-117) U/L Troponin I (0-0.045) ng/ml Total Protein (6.4-8.2) gm/dl Albumin (3.4-5.0) gm/dl Globulin (2.5-4.0) gm/dl Albumin/Globulin Ratio (0.9-2) Lipase (73-393) U/L TSH (0.300-4.500) uIu/ml Influenza Type A (PCR) (Neg) Influenza Type B (PCR) (Neg) Medications Administered Current Inpatient Medications Acetaminophen (Tylenol) 650 mg PO Q4H PRN PRN Reason: Pain or Fever Stop: 08/01/18 00:30 Al Hydrox/Mg Hydrox/Simethicone (Maalox) 15 ml PO Q4H PRN PRN Reason: Dyspepsia Stop: 08/01/18 00:30 Apixaban (Eliquis) 5 mg PO BID KEESHA Stop: 08/01/18 08:59 Aspirin (Ecotrin Ectab) 81 mg PO DAILY KEESHA Stop: 08/01/18 08:59 Atorvastatin Calcium (Lipitor) 40 mg PO HS KEESHA Stop: 08/01/18 20:59 Budesonide/Formoterol Fumarate (Symbicort 160mcg/4.5mcg) 2 puffs INH BID PRN PRN Reason: Shortness Of Breath Or Wheezing Stop: 07/31/18 22:39 Clonazepam (Klonopin) 0.5 mg PO HS KEESHA Stop: 08/01/18 20:59 Colestipol HCl (Colestid) 1 gm PO DAILY@1000 KEESHA Stop: 08/01/18 09:59 Diclofenac Sodium (Voltaren 1% Top) 1 appln EXT QID PRN PRN Reason: Pain Stop: 07/31/18 22:39 Escitalopram Oxalate (Lexapro) 20 mg PO DAILY [facility] Stop: 08/01/18 08:59 Gabapentin (Neurontin) 400 mg PO QID [facility] Stop: 08/01/18 08:59 Guaifenesin (Mucinex) 1,200 mg PO Q12 [facility] Stop: 08/01/18 08:59 Diltiazem HCl 125 mg/ Dextrose 125 mls @ 5 mls/hr IV .Q24H [facility]; Protocol Stop: 07/31/18 20:44 Last Titration: 07/01/18 22:15 Dose: 5 mg/hr, 5 mls/hr Potassium Chloride (K Jhonathan / Wtr) 10 meq in 100 mls @ 100 mls/hr IV Q1H [facility] Stop: 07/02/18 04:44 Last Admin: 07/02/18 03:41 Dose: 100 mls/hr Azithromycin 500 mg/ Dextrose 255 mls @ 125 mls/hr IV Q24H [facility] Stop: 07/09/18 20:59 Ceftriaxone Sodium 1,000 mg/ (Sodium Chloride) 50 mls @ 100 mls/hr IV Q24H [facility] Stop: 07/09/18 19:59 Sodium Chloride (Nss 1000ml) 1,000 mls @ 80 mls/hr IV .[id number] [facility] Stop: 08/01/18 00:44 Last Admin: 07/02/18 01:28 Dose: 80 mls/hr Methylprednisolone 40 mg/ (Syringe) 0.64 mls @ 1.5 mls/min IV Q8H [facility] Stop: 08/01/18 00:59 Last Admin: 07/02/18 01:28 Dose: 1.5 mls/min Lamotrigine (Lamictal) 150 mg PO HS KEESHA Stop: 08/01/18 20:59 Levalbuterol HCl (Xopenex 1.25mg/3ml Neb) 1.25 mg NEB Q6R KEESHA Stop: 08/01/18 01:59 Last Admin: 07/02/18 02:08 Dose: 1.25 mg Magnesium Hydroxide (Milk Of Magnesia) 30 ml PO Q12H PRN PRN Reason: Constipation Stop: 08/01/18 00:30 Montelukast Sodium (Singulair) 10 mg PO PM [facility]ESHA Stop: 08/01/18 20:59 Ondansetron HCl (Zofran) 4 mg IV Q6H PRN PRN Reason: Nausea Stop: 08/01/18 00:30 Pantoprazole Sodium (Protonix) 40 mg PO DAILY [facility]ESHA Stop: 08/01/18 08:59 Polyethylene Glycol (Miralax Powder Packet) 17 gm PO DAILY PRN PRN Reason: Constipation Stop: 08/01/18 00:30 Polymyxin/Trimethoprim Sulfate (Polytrim) 2 drops OP QID KEESHA Stop: 08/01/18 08:59 Pramipexole Dihydrochloride (Mirapex) 0.5 mg PO HS KEESHA Stop: 08/01/18 20:59 Trazodone HCl (Desyrel) 150 mg PO HS KEESHA Stop: 08/01/18 20:59 Code Status & VTE Plan Code Status full VTE Prophylaxis Plan VTE Prophylaxis will be ordered: Yes Supervising Physician Co-Signing Physician Notes Patient seen and examined, chart reviewed, case discussed with Dr. Leahy and I agree with her assessment and plan as documented above. Briefly, patient is a 77yo female with COPD, AF on Coumadin presenting with multilobar PNA. On exam she is afebrile, tachycardic, BP stable, 94% on 4L NC Lungs with coarse breath sounds bilaterally, scattered end-expiratory wheezing Remainder of exam unremarkable Labs and images reviewed. WBC=16.37, K=2.7, Mg=1.7 Assessment/Plan: CAP with COPD, AF with RVR -Azithromycin/Ceftriaxone -Nebs -Mucinex -Tessalon -Diltiazem gtt for rate control -Continue Coumadin -Electrolyte repletion Remainder of plan as above Resident Activity Tracking Resident Involvement: Resident Care Provided Care Provided: Adult Hospital Medicine _ (1) Pneumonia Aspiration pneumonia type: Laterality: bilateral Lung location: unspecified part of lung Pneumonia type: due to unspecified organism Qualified Code(s): J18.9 - Pneumonia, unspecified organism
[2018-07-01] MEDS ORDERED: SODIUM CHLORIDE 0.9% 1000ML 1,000 ML IV SCH (23:45)
[2018-07-02] MEDS ORDERED: ONDANSETRON INJ 2 MG/ML 2 ML VIAL IV PRN (00:31)
[2018-07-02] MEDS ORDERED: LEVALBUTEROL 1.25MG/0.5ML NEB NEB SCH (00:31)
[2018-07-02] MEDS ORDERED: MAGNESIUM OXIDE 400 MG TAB PO STA (00:31)
[2018-07-02] MEDS ORDERED: MAGNESIUM HYDROXIDE SUSP 30 ML UDC PO PRN (00:31)
[2018-07-02] MEDS ORDERED: POLYETHYLENE (MIRALAX) 17 GM PACK PO PRN (00:31)
[2018-07-02] MEDS ORDERED: ALBUT/IPRATROP 3MG/0.5MG NEB 3 ML VIAL NEB SCH (00:31)
[2018-07-02] MEDS ORDERED: POTASSIUM CHLORIDE 20 MEQ TABCR PO STA ×2 (00:31→07:26)
[2018-07-02] MEDS ORDERED: ALUMINUM/MAGNESIUM SUSP 30 ML UDC PO PRN (00:31)
[2018-07-02] MEDS ORDERED: ACETAMINOPHEN 325 MG TAB PO PRN (00:31)
[2018-07-02] MEDS ORDERED: SODIUM CHLORIDE 0.9% 1000ML 1,000 ML IV SCH (00:45)
[2018-07-02] MEDS ORDERED: COUGH DROP (SUGAR FREE) LOZ 24 LOZ/1 BOX BUCCAL ONE (01:14)
[2018-07-02] MEDS: methylPREDNISolone 40 MG in SYRINGE 0 ML IV SCH ×3 (01:28→16:33)
[2018-07-02] MEDS: POTASSIUM CHLORIDE / WTR 10 MEQ/100 ML PLCT IV SCH ×4 (01:28→04:42)
[2018-07-02] MEDS ORDERED: BENZONATATE 100 MG CAPSULE PO ONE (01:40)
[2018-07-02] MEDS ORDERED: TRAZODONE HCL 50 MG TAB PO ONE (01:45)
[2018-07-02] MEDS: LEVALBUTEROL HCL 1.25 MG/3 ML NEB NEB SCH ×4 (02:08→20:23)
--- NOTE | 2018-07-02 03:09 | Emergency Department Note ---
Entered by Zac Warren acting as a scribe for Latesha Monsivais DO History of Present Illness General Chief complaint: Cardiac Assessment Stated complaint: af Time Seen by Provider: 07/01/18 20:26 Source: patient and EMS History of Present Illness Onset (ago): day(s) (today) Pain Consistency: + other (an episode) Quality: + other (atrial fibrillation) Associated symptoms: + other (Positive for congestion, rhinorrhea, a sore throat , hypoxia, an episode of hypotension, a decreased appetite, and leg swelling. Negative for vomiting, nausea, and SOB. ) Treatments prior to arrival: other (fluids, oxygen) The patient is a 77 year old female who presents to the emergency department with complaints of an episode of atrial fibrillation today. The patient states that she has been having some congestion, rhinorrhea, a sore throat, and a cough for the last two days. He states that the patient went to the [facility] earlier today and was found to be in rapid atrial fibrillation at that time. He notes that the patient is becoming more tachypneic and he reports that the patient also had an episode where her blood pressure dropped to 70/52. He states that the patient was also hypoxic when EMS arrived and he notes that she was given fluids and placed on oxygen. The patient also complains of a decreased appetite and b/l leg swelling. She denies any vomiting, nausea, and SOB. She notes that she has a history of asthma, COPD, pneumonia, and atrial fibrillation. She reports that she is on Eliquis, but she states that she has not taken her medication for the last two days. The patient states that she does not use oxygen at home but she notes that she uses an inhaler as needed. She reports that she received a flu shot this year. Home Medications Home Medications Medication Instructions Recorded Confirmed Type albuterol sulfate [Ventolin HFA] 2 puff INHALATION Q4 PRN 04/24/18 07/01/18 History apixaban [Eliquis] 5 mg PO BID 04/24/18 07/01/18 History aspirin 81 mg PO HS 04/24/18 07/01/18 History atorvastatin 40 mg PO HS 04/24/18 07/01/18 History budesonide-formoterol [Symbicort] 2 puff INHALATION BID PRN 04/24/18 07/01/18 History calcium carbonate-vitamin D3 1 tab PO BID 04/24/18 07/01/18 History [Calcium 600 + D(3)] cholecalciferol (vitamin D3) 2,000 unit PO DAILY 04/24/18 07/01/18 History [Vitamin D3] clonazepam [Klonopin] 1 mg PO HS 04/24/18 07/01/18 History dextroamphetamine-amphetamine 30 mg PO QAM 04/24/18 07/01/18 History [Adderall XR] diclofenac sodium [Voltaren] 1 applic TOPICAL QID PRN 04/24/18 07/01/18 History diltiazem HCl [DILT-XR] 240 mg PO DAILY 04/24/18 07/01/18 History escitalopram oxalate [Lexapro] 20 mg PO DAILY 04/24/18 07/01/18 History gabapentin 400 mg PO QID 04/24/18 07/01/18 History lamotrigine [Lamictal] 150 mg PO HS 04/24/18 07/01/18 History montelukast 10 mg PO PM 04/24/18 07/01/18 History multivitamin 1 tab PO DAILY 04/24/18 07/01/18 History pantoprazole [Protonix] 40 mg PO DAILY 04/24/18 07/01/18 History pramipexole [Mirapex] 0.5 mg PO HS 04/24/18 07/01/18 History trazodone 150 mg PO HS 04/24/18 07/01/18 History dextroamphetamine-amphetamine 15 mg PO QPM 07/01/18 07/01/18 History psyllium husk [Metamucil] 1 tbsp PO DAILY 07/01/18 07/01/18 History tramadol 50 mg PO QID PRN 07/01/18 07/01/18 History travoprost [Travatan Z] 1 drp OPL DAILY 07/01/18 07/01/18 History Allergies Allergy/AdvReac Type Severity Reaction Status Date / Time chocolate flavor Allergy Mild RASH Verified 07/01/18 23:26 fluticasone Allergy Unknown FROM Verified 07/01/18 23:26 ADVAIR, CHEST PAIN mivacurium Allergy Unknown THROAT Verified 07/01/18 23:26 BURNED-LOST WT Penicillins Allergy Unknown UNKNOWN-HAS Verified 07/01/18 23:26 TOLERATED ROCEPHIN IN PAST procaine Allergy Unknown ANAPHYLAXIS/MOUTH Verified 07/01/18 23:26 SWELLING/SOB salmeterol Allergy Unknown FROM Verified 07/01/18 23:26 ADVAIR, CHEST PAIN. moxifloxacin AdvReac Unknown NAUSEA & Verified 07/01/18 23:26 VOMITING NSAIDS (Non-Steroidal AdvReac Unknown AVOID DUE Verified 07/01/18 23:26 Anti-Inflamma TO ULCER HX zolpidem AdvReac Unknown SLEEP Verified 07/01/18 23:26 WALKING Past Med/Surg History Social History Current Living Situation: Family Other Information That Helps Us Care for You: No Feels Safe at Home: Yes Safety Concerns: Feels Safe At This Time Smoking Status: Unknown if ever smoked Hx Alcohol Use: No Hx Substance Use: No Beliefs That Will Affect Care: None Preferred Language: Chinese Communication Ability: Effective Wool Spotter Required: No Review of Systems See HPI for pertinent positives & negatives. and A total of 10 systems reviewed and were otherwise negative Physical Exam Vital Signs Vital Signs - 24 hr 07/01/18 20:46 07/01/18 20:47 07/01/18 20:55 Temperature 37.2 C Temperature Source Oral Sepsis Recent Fever Within 48 Hours No Sepsis New/Unexplained Change in Mental Status No Sepsis Action Taken by Nursing No Action Required Pulse Rate 126 H 156 H 132 H Pulse Rate [Left] Pulse Rhythm [Left] Pulse Strength [Left] Respiratory Rate 22 28 H 22 Respiratory Effort / Characteristics Respiratory Depth Respiratory Pattern Blood Pressure 137/87 133/110 H Blood Pressure [Left Arm] Blood Pressure Mean 103 117 Blood Pressure Mean [Left Arm] Blood Pressure Position [Left Arm] Pulse Oximetry 95 98 100 Oxygen Delivery Method Nasal CPAP Nasal Cannula Oxygen Flow Rate 4 4 07/01/18 21:00 07/01/18 21:07 07/01/18 21:08 Temperature Temperature Source Sepsis Recent Fever Within 48 Hours Sepsis New/Unexplained Change in Mental Status Sepsis Action Taken by Nursing Pulse Rate 139 H 131 H Pulse Rate [Left] 125 H Pulse Rhythm [Left] Pulse Strength [Left] Respiratory Rate 25 H 20 22 Respiratory Effort / Characteristics Respiratory Depth Respiratory Pattern Blood Pressure 124/69 Blood Pressure [Left Arm] 124/69 Blood Pressure Mean 87 Blood Pressure Mean [Left Arm] 87 Blood Pressure Position [Left Arm] Pulse Oximetry 95 100 100 Oxygen Delivery Method Nebulizer Oxygen Flow Rate 07/01/18 21:11 07/01/18 21:15 07/01/18 21:17 Temperature Temperature Source Sepsis Recent Fever Within 48 Hours Sepsis New/Unexplained Change in Mental Status Sepsis Action Taken by Nursing Pulse Rate 135 H 130 H 123 H Pulse Rate [Left] Pulse Rhythm [Left] Pulse Strength [Left] Respiratory Rate 26 H 17 24 Respiratory Effort / Characteristics Respiratory Depth Respiratory Pattern Blood Pressure 137/77 101/84 Blood Pressure [Left Arm] Blood Pressure Mean 97 89 Blood Pressure Mean [Left Arm] Blood Pressure Position [Left Arm] Pulse Oximetry 100 100 100 Oxygen Delivery Method Oxygen Flow Rate 07/01/18 21:21 07/01/18 21:24 07/01/18 21:25 Temperature Temperature Source Sepsis Recent Fever Within 48 Hours Sepsis New/Unexplained Change in Mental Status Sepsis Action Taken by Nursing Pulse Rate 127 H 131 H 123 H Pulse Rate [Left] Pulse Rhythm [Left] Pulse Strength [Left] Respiratory Rate 29 H 16 24 Respiratory Effort / Characteristics Respiratory Depth Respiratory Pattern Blood Pressure 89/69 L 127/106 H Blood Pressure [Left Arm] Blood Pressure Mean 75 113 Blood Pressure Mean [Left Arm] Blood Pressure Position [Left Arm] Pulse Oximetry 100 99 97 Oxygen Delivery Method Oxygen Flow Rate 07/01/18 21:26 07/01/18 21:30 07/01/18 21:36 Temperature Temperature Source Sepsis Recent Fever Within 48 Hours Sepsis New/Unexplained Change in Mental Status Sepsis Action Taken by Nursing Pulse Rate 119 H 126 H Pulse Rate [Left] Pulse Rhythm [Left] Pulse Strength [Left] Respiratory Rate 25 H 23 Respiratory Effort / Characteristics Respiratory Depth Respiratory Pattern Blood Pressure 91/50 L 86/56 L 108/67 Blood Pressure [Left Arm] Blood Pressure Mean 63 66 80 Blood Pressure Mean [Left Arm] Blood Pressure Position [Left Arm] Pulse Oximetry 85 L 97 97 Oxygen Delivery Method Oxygen Flow Rate 07/01/18 21:40 07/01/18 21:45 07/01/18 21:50 Temperature Temperature Source Sepsis Recent Fever Within 48 Hours Sepsis New/Unexplained Change in Mental Status Sepsis Action Taken by Nursing Pulse Rate 120 H 108 H 114 H Pulse Rate [Left] Pulse Rhythm [Left] Pulse Strength [Left] Respiratory Rate 30 H 23 22 Respiratory Effort / Characteristics Respiratory Depth Respiratory Pattern Blood Pressure 116/71 93/54 L 120/63 Blood Pressure [Left Arm] Blood Pressure Mean 86 67 82 Blood Pressure Mean [Left Arm] Blood Pressure Position [Left Arm] Pulse Oximetry 95 94 98 Oxygen Delivery Method Oxygen Flow Rate 07/01/18 21:56 07/01/18 22:01 07/01/18 22:06 Temperature Temperature Source Sepsis Recent Fever Within 48 Hours Sepsis New/Unexplained Change in Mental Status Sepsis Action Taken by Nursing Pulse Rate 107 H 127 H 123 H Pulse Rate [Left] Pulse Rhythm [Left] Pulse Strength [Left] Respiratory Rate 16 30 H 25 H Respiratory Effort / Characteristics Respiratory Depth Respiratory Pattern Blood Pressure 106/65 132/90 124/71 Blood Pressure [Left Arm] Blood Pressure Mean 78 104 88 Blood Pressure Mean [Left Arm] Blood Pressure Position [Left Arm] Pulse Oximetry 92 84 L 92 Oxygen Delivery Method Oxygen Flow Rate 07/01/18 22:10 07/01/18 22:15 07/01/18 22:16 Temperature Temperature Source Sepsis Recent Fever Within 48 Hours Sepsis New/Unexplained Change in Mental Status Sepsis Action Taken by Nursing Pulse Rate 130 H 118 H 123 H Pulse Rate [Left] Pulse Rhythm [Left] Pulse Strength [Left] Respiratory Rate 22 31 H 21 Respiratory Effort / Characteristics Respiratory Depth Respiratory Pattern Blood Pressure 108/65 122/80 Blood Pressure [Left Arm] Blood Pressure Mean 79 94 Blood Pressure Mean [Left Arm] Blood Pressure Position [Left Arm] Pulse Oximetry 85 L Oxygen Delivery Method Oxygen Flow Rate 07/01/18 22:21 07/01/18 22:26 07/01/18 22:45 Temperature Temperature Source Sepsis Recent Fever Within 48 Hours Sepsis New/Unexplained Change in Mental Status Sepsis Action Taken by Nursing Pulse Rate 117 H 107 H 111 H Pulse Rate [Left] Pulse Rhythm [Left] Pulse Strength [Left] Respiratory Rate 24 23 25 H Respiratory Effort / Characteristics Respiratory Depth Respiratory Pattern Blood Pressure 144/94 H 98/70 L 159/151 H Blood Pressure [Left Arm] Blood Pressure Mean 110 79 153 Blood Pressure Mean [Left Arm] Blood Pressure Position [Left Arm] Pulse Oximetry Oxygen Delivery Method Oxygen Flow Rate 07/01/18 22:48 07/01/18 22:49 07/01/18 22:51 Temperature Temperature Source Sepsis Recent Fever Within 48 Hours Sepsis New/Unexplained Change in Mental Status Sepsis Action Taken by Nursing Pulse Rate 118 H 117 H 102 H Pulse Rate [Left] Pulse Rhythm [Left] Pulse Strength [Left] Respiratory Rate 20 22 25 H Respiratory Effort / Characteristics Respiratory Depth Respiratory Pattern Blood Pressure 136/55 L 111/79 Blood Pressure [Left Arm] Blood Pressure Mean 82 89 Blood Pressure Mean [Left Arm] Blood Pressure Position [Left Arm] Pulse Oximetry 94 92 83 L Oxygen Delivery Method Oxygen Flow Rate 07/01/18 22:56 07/01/18 23:00 07/01/18 23:01 Temperature Temperature Source Sepsis Recent Fever Within 48 Hours Sepsis New/Unexplained Change in Mental Status Sepsis Action Taken by Nursing Pulse Rate 120 H 110 H 110 H Pulse Rate [Left] 115 H Pulse Rhythm [Left] Pulse Strength [Left] Respiratory Rate 17 21 29 H Respiratory Effort / Characteristics Non-Labored Respiratory Depth Normal Respiratory Pattern Regular Blood Pressure 116/60 95/60 L Blood Pressure [Left Arm] 120/79 Blood Pressure Mean 78 71 Blood Pressure Mean [Left Arm] 92 Blood Pressure Position [Left Arm] Lying Pulse Oximetry 87 L 84 L 90 Oxygen Delivery Method Room Air Oxygen Flow Rate 07/01/18 23:06 07/01/18 23:10 07/01/18 23:15 Temperature Temperature Source Sepsis Recent Fever Within 48 Hours Sepsis New/Unexplained Change in Mental Status Sepsis Action Taken by Nursing Pulse Rate 107 H 112 H 110 H Pulse Rate [Left] Pulse Rhythm [Left] Pulse Strength [Left] Respiratory Rate 20 20 37 H Respiratory Effort / Characteristics Respiratory Depth Respiratory Pattern Blood Pressure 99/64 L 124/111 H Blood Pressure [Left Arm] Blood Pressure Mean 75 115 Blood Pressure Mean [Left Arm] Blood Pressure Position [Left Arm] Pulse Oximetry 93 92 84 L Oxygen Delivery Method Oxygen Flow Rate 07/01/18 23:16 07/01/18 23:21 07/01/18 23:25 Temperature Temperature Source Sepsis Recent Fever Within 48 Hours Sepsis New/Unexplained Change in Mental Status Sepsis Action Taken by Nursing Pulse Rate 102 H 111 H 110 H Pulse Rate [Left] Pulse Rhythm [Left] Pulse Strength [Left] Respiratory Rate 32 H 31 H 21 Respiratory Effort / Characteristics Respiratory Depth Respiratory Pattern Blood Pressure 83/63 L 94/60 L 109/61 Blood Pressure [Left Arm] Blood Pressure Mean 69 71 77 Blood Pressure Mean [Left Arm] Blood Pressure Position [Left Arm] Pulse Oximetry 91 89 L 92 Oxygen Delivery Method Oxygen Flow Rate 07/01/18 23:30 07/01/18 23:32 07/01/18 23:50 Temperature Temperature Source Sepsis Recent Fever Within 48 Hours Sepsis New/Unexplained Change in Mental Status Sepsis Action Taken by Nursing Pulse Rate 115 H 123 H Pulse Rate [Left] Pulse Rhythm [Left] Pulse Strength [Left] Respiratory Rate 33 H 18 Respiratory Effort / Characteristics Respiratory Depth Respiratory Pattern Blood Pressure 116/68 Blood Pressure [Left Arm] Blood Pressure Mean Blood Pressure Mean [Left Arm] Blood Pressure Position [Left Arm] Pulse Oximetry 89 L 94 Oxygen Delivery Method Nasal Cannula Nasal Cannula Oxygen Flow Rate 4 4 07/02/18 00:15 07/02/18 01:35 07/02/18 02:08 Temperature 37.1 C Temperature Source Oral Sepsis Recent Fever Within 48 Hours Sepsis New/Unexplained Change in Mental Status Sepsis Action Taken by Nursing Pulse Rate Pulse Rate [Left] 101 H 119 H Pulse Rhythm [Left] Irregular Pulse Strength [Left] Normal Respiratory Rate 18 18 Respiratory Effort / Characteristics Non-Labored Non-Labored Spontaneous Labored Nasal Congestion Short of Breath SOB on Exertion Spontaneous Respiratory Depth Normal Normal Respiratory Pattern Regular Regular Blood Pressure Blood Pressure [Left Arm] 145/65 H Blood Pressure Mean Blood Pressure Mean [Left Arm] 91 Blood Pressure Position [Left Arm] Sitting Pulse Oximetry 98 94 Oxygen Delivery Method Nasal Cannula Nasal Cannula Nasal Cannula Oxygen Flow Rate 2 4 4 GENERAL: alert, ill appearing, well nourished, no distress, non-toxic, pursed lip breathing. EYE EXAM: normal conjunctiva, PERRL and EOM's grossly intact OROPHARYNX: no exudate, no erythema, lips, buccal mucosa, and tongue normal and mucous membranes are moist NECK: supple, no nuchal rigidity, no adenopathy, non-tender LUNGS: Normal chest wall mechanics. Increased work of breathing, bilateral rhonchi. HEART: no murmurs, S1 normal and S2 normal, tachycardic and irregular. ABDOMEN: abdomen soft, non-tender, normo-active bowel sounds, no masses, no rebound or guarding. BACK: Back is symmetrical on inspection and there is no deformity, no midline tenderness, no CVA tenderness. SKIN: no rashes and no bruising UPPER EXTREMITIES: upper extremities are grossly normal. FROM, nml pulses b/l. LOWER EXTREMITIES: No pitting edema. FROM, nml pulses b/l. NEURO EXAM: Normal sensorium, cranial nerves II-XII grossly intact, normal speech, no gross weakness of arms, no gross weakness of legs. Course 2027: Past medical records reviewed. The patient was evaluated in room C2, and a complete history and physical examination were performed. 2150: I reevaluated and updated the patient. She is awake, alert, and still coughing. Her heart rate is in the 110s. She is mildly hypotensive. 0: I rechecked the patient. Her pressure is up after receiving a bolus of fluids. Cardizem was turned down to 2.5 mg, will attempt to increase back to 5 to better control her heart rate. 2211: Upon reevaluation, the patient is stable. I discussed the results and treatment plan with the patient. She verbalizes understanding and agreement. I discussed the patient's case with JACQUELYN Rice. The patient will be evaluated for further management and care. Consultations Consultation #1: I reviewed the patient's case with JACQUELYN Rice. She will evaluate the patient for further management. Time: 22:12 Administered Medications Diltiazem HCl 125 mg/ Dextrose 125 mls @ 5 mls/hr IV .Q24H KEESHA; Protocol Stop: 07/31/18 20:44 Last Titration: 07/01/18 22:15 Dose: 5 mg/hr, 5 mls/hr Titration: 07/01/18 21:37 Dose: 2.5 mg/hr, 2.5 mls/hr Titration: 07/01/18 21:35 Dose: 0 mg/hr, 0 mls/hr Admin: 07/01/18 21:03 Dose: 5 mg/hr, 5 mls/hr Potassium Chloride (K Jhonathan / Wtr) 10 meq in 100 mls @ 100 mls/hr IV Q1H KEESHA Stop: 07/02/18 04:44 Last Admin: 07/02/18 02:37 Dose: 100 mls/hr Infusion: 07/02/18 02:28 Dose: 100 mls/hr Admin: 07/02/18 01:28 Dose: 100 mls/hr Sodium Chloride (Nss 1000ml) 1,000 mls @ 80 mls/hr IV .[id number] KEESHA Stop: 08/01/18 00:44 Last Admin: 07/02/18 01:28 Dose: 80 mls/hr Methylprednisolone 40 mg/ (Syringe) 0.64 mls @ 1.5 mls/min IV Q8H KEESHA Stop: 08/01/18 00:59 Last Admin: 07/02/18 01:28 Dose: 1.5 mls/min Levalbuterol HCl (Xopenex 1.25mg/3ml Neb) 1.25 mg NEB Q6R [facility] Stop: 08/01/18 01:59 Last Admin: 07/02/18 02:08 Dose: 1.25 mg Discontinued Medications Albuterol (Duoneb) 3 ml NEB NOW STA Stop: 07/01/18 20:39 Last Admin: 07/01/18 21:03 Dose: 3 ml Albuterol (Duoneb) 3 ml NEB Q4R KEESHA Stop: 08/01/18 00:30 Last Admin: 07/02/18 02:26 Dose: Not Given Azithromycin (Zithromax) 500 mg PO NOW ONE Stop: 07/01/18 21:37 Last Admin: 07/01/18 22:16 Dose: Not Given Benzonatate (Tessalon Perle) 100 mg PO NOW ONE Stop: 07/01/18 21:37 Last Admin: 07/01/18 22:09 Dose: 100 mg Benzonatate (Tessalon Perle) 200 mg PO NOW ONE Stop: 07/02/18 01:41 Last Admin: 07/02/18 01:56 Dose: 200 mg Diltiazem HCl (Cardizem) 10 mg IV NOW STA Stop: 07/01/18 20:39 Last Admin: 07/01/18 21:03 Dose: 10 mg Sodium Chloride (Nss 1000ml) 500 mls @ 999 mls/hr IV .Q31M ONE Stop: 07/01/18 22:01 Last Infusion: 07/01/18 22:06 Dose: 0 mls/hr Admin: 07/01/18 21:35 Dose: 999 mls/hr Sodium Chloride (Nss 1000ml) 1,000 mls @ 999 mls/hr IV .Q1H1M ONE Stop: 07/01/18 22:31 Last Infusion: 07/01/18 21:30 Dose: 0 mls/hr Admin: 07/01/18 21:00 Dose: 999 mls/hr Ceftriaxone Sodium (Rocephin) 1,000 mg in 50 mls @ 100 mls/hr IV NOW STA Stop: 07/01/18 22:05 Last Infusion: 02/14/19 00:36 Dose: 0 mls/hr Admin: 07/01/18 22:47 Dose: 100 mls/hr Sodium Chloride (Nss 1000ml) 500 mls @ 999 mls/hr IV .Q31M ONE Stop: 07/01/18 23:41 Last Infusion: 07/01/18 22:37 Dose: 0 mls/hr Admin: 07/01/18 22:06 Dose: 999 mls/hr Magnesium Oxide (Mag-Ox) 400 mg PO NOW STA Stop: 07/02/18 00:32 Last Admin: 07/02/18 01:29 Dose: 400 mg Menthol (Nice) Confirm Administered Dose 24 rebecca BUCCAL .STK-MED ONE Stop: 07/02/18 01:15 Last Admin: 07/02/18 01:29 Dose: 24 rebecca Potassium Chloride (Klor-Con M20) 40 meq PO NOW STA Stop: 07/02/18 00:32 Last Admin: 07/02/18 01:29 Dose: 40 meq Trazodone HCl (Desyrel) 150 mg PO ONE ONE Stop: 07/02/18 01:46 Last Admin: 07/02/18 01:56 Dose: 150 mg Medical Decision Making Differential Diagnosis Differential diagnosis: Etiologies such as infections, reactive airway disease, COPD, pneumonia, pleural effusion, pulmonary edema, ARDS, pneumothorax, CHF, cardiac ischemia, cardiac tamponade, dysrhythmia, anemia, pulmonary embolism, musculoskeletal, gastrointestinal process, as well as others were entertained. Medical Records Attestation: I reviewed the patient's medical records. Home Medications Current Medication List: was personally reviewed by me Laboratory Data Attestation: I reviewed the patient's lab results. Result diagrams: 07/01/18 21:00 07/01/18 21:00 Lab Results 07/01/18 07/01/18 07/01/18 Range/Units 21:00 21:00 21:00 WBC 16.39 H (4.8-10.8) K/uL RBC 4.24 (4.2-5.4) M/uL Hgb 12.2 (12.0-16.0) g/dL Hct 37.7 (37-47) % MCV 88.9 (80-100) fL MCH 28.8 (25-34) pg MCHC 32.4 (32-36) g/dL RDW Std Deviation 45.3 (36.4-46.3) fL RDW Coeff of Aspen 13.7 (11.5-14.5) % Plt Count 282 (130-400) K/uL MPV 9.7 (7.4-10.4) fL Immature Gran % (Auto) 0.4 % Neut % (Auto) 78.8 % Lymph % (Auto) 11.0 % Ritchie % (Auto) 9.2 % Eos % (Auto) 0.5 % Baso % (Auto) 0.1 % Immature Gran # (Auto) 0.07 H (0.00-0.02) K/uL Neut # (Auto) 12.90 H (1.4-6.5) K/uL Lymph # (Auto) 1.80 (1.2-3.4) K/uL Ritchie # (Auto) 1.51 H (0.11-0.59) K/uL Eos # (Auto) 0.09 (0-0.5) K/uL Baso # (Auto) 0.02 (0-0.2) K/uL PT 12.0 (9.0-12.0) Seconds INR 1.2 H (0.9-1.1) Sodium 138 (136-145) mmol/L Potassium 2.7 L (3.5-5.1) mmol/L Chloride 102 (98-107) mmol/L Carbon Dioxide 29 (21-32) mmol/L Anion Gap 8.0 (3-11) BUN 12 (7-18) mg/dl Creatinine 0.63 (0.6-1.2) mg/dl Est Cr Clr Drug Dosing 76.0 ml/min Est GFR ( Amer) 99.6 Est GFR (Non-Af Amer) 85.9 BUN/Creatinine Ratio 19.4 (10-20) Glucose 117 H (70-99) mg/dl Calcium 9.0 (8.5-10.1) mg/dl Magnesium 1.7 L (1.8-2.4) mg/dl Total Bilirubin 0.4 (0.2-1) mg/dl AST 49 H (15-37) U/L ALT 53 (12-78) U/L Alkaline Phosphatase 182 H (45-117) U/L Troponin I < 0.015 (0-0.045) ng/ml Total Protein 7.0 (6.4-8.2) gm/dl Albumin 2.7 L (3.4-5.0) gm/dl Globulin 4.3 H (2.5-4.0) gm/dl Albumin/Globulin Ratio 0.6 L (0.9-2) Lipase 78 (73-393) U/L TSH 0.985 (0.300-4.500) uIu/ml Influenza Type A (PCR) (Neg) Influenza Type B (PCR) (Neg) 07/01/18 Range/Units 21:25 WBC (4.8-10.8) K/uL RBC (4.2-5.4) M/uL Hgb (12.0-16.0) g/dL Hct (37-47) % MCV (80-100) fL MCH (25-34) pg MCHC (32-36) g/dL RDW Std Deviation (36.4-46.3) fL RDW Coeff of Aspen (11.5-14.5) % Plt Count (130-400) K/uL MPV (7.4-10.4) fL Immature Gran % (Auto) % Neut % (Auto) % Lymph % (Auto) % Ritchie % (Auto) % Eos % (Auto) % Baso % (Auto) % Immature Gran # (Auto) (0.00-0.02) K/uL Neut # (Auto) (1.4-6.5) K/uL Lymph # (Auto) (1.2-3.4) K/uL Ritchie # (Auto) (0.11-0.59) K/uL Eos # (Auto) (0-0.5) K/uL Baso # (Auto) (0-0.2) K/uL PT (9.0-12.0) Seconds INR (0.9-1.1) Sodium (136-145) mmol/L Potassium (3.5-5.1) mmol/L Chloride (98-107) mmol/L Carbon Dioxide (21-32) mmol/L Anion Gap (3-11) BUN (7-18) mg/dl Creatinine (0.6-1.2) mg/dl Est Cr Clr Drug Dosing ml/min Est GFR ( Amer) Est GFR (Non-Af Amer) BUN/Creatinine Ratio (10-20) Glucose (70-99) mg/dl Calcium (8.5-10.1) mg/dl Magnesium (1.8-2.4) mg/dl Total Bilirubin (0.2-1) mg/dl AST (15-37) U/L ALT (12-78) U/L Alkaline Phosphatase (45-117) U/L Troponin I (0-0.045) ng/ml Total Protein (6.4-8.2) gm/dl Albumin (3.4-5.0) gm/dl Globulin (2.5-4.0) gm/dl Albumin/Globulin Ratio (0.9-2) Lipase (73-393) U/L TSH (0.300-4.500) uIu/ml Influenza Type A (PCR) Neg for Influ A (Neg) Influenza Type B (PCR) Neg for Influ B (Neg) Imaging Data Radiologist's Impression: Radiology results as stated below per my review and the radiologist's interpretation: XR chest 1V portable FINDINGS: There has been interval development of a 6.1 cm airspace opacity within the right mid to upper lung. Left basilar opacity is noted. There is no evidence for pulmonary edema. No pneumothorax or pleural effusion is noted. No cavitation is identified. IMPRESSION: Right upper and left lower lung airspace opacities which favor multifocal pneumonia. Post treatment radiographs to ensure resolution are recommended. Electronically signed by: Bull Kim M.D. 07/01/2018 9:18 PM ECG Data Attestation: I personally reviewed and interpreted this ECG as follows: Indication: SOB/dyspnea Rate (beats per minute): 143 Rhythm: atrial fibrillation Findings: + PVC and + ST depression (in 1, 2, AVL, V3-V6) Comparison ECG Date: from (04/24/2018) Change: the following changes noted (Compared to prior, ST depression is worse but possibly rate related.) Additional Comments: Normal axis, normal QRS/QTC. Blood Pressure Blood Pressure Findings: Low blood pressure Blood Pressure Disposition: further management by hospitalist EVELYNE Narrative Patient here initially markedly ill-appearing, and had been initially hypotensive and hypoxic for EMS. Patient found to be in rapid atrial fibrillation and also found to have a multifocal pneumonia. Patient at risk for pneumonia due to underlying COPD. Patient is not recently been hospitalized and is from home. Given prior reaction to moxifloxacin, patient started on Rocephin and azithromycin after labs and blood cultures sent. Patient does have a prior history of atrial fibrillation and is already anticoagulated. Upon initiation of Cardizem, patient's blood pressure did drop , but did return to normal with a 500 mL IV fluid bolus. At this point time we were able to gradually titrate up the Cardizem drip to help control her heart rate. Patient was made aware of all results and was in agreement with plan. Patient did require oxygen here to help with her breathing. Patient also given a nebulizer treatment. Steroids were initially avoided as patient states the steroids makes her atrial fibrillation worse. Patient's flu swab was negative. I do not suspect PE given her anticoagulated status. No evidence of acute congestive heart failure on physical exam or chest x-ray. Patient's heart rate and blood pressure did improve and remained stable while she and she was in the emergency room. Case discussed with hospitalist for additional evaluation. Impression & Plan Pneumonia, Atrial fibrillation with RVR, COPD exacerbation, Hypotension, Hypoxia, Acute hypokalemia, Hypomagnesemia Critical Care Time I have personally spent greater than 40 minutes of critical care time in the direct management of this patient. This includes bedside care, interpretation of diagnostic studies, and testing, discussion with consultants, patient, and family members, and other required patient management activities. This 40 minutes is in excess of all separately billable procedures. Critical Care Time: Yes Total Critical Care Time: 40 Discharge Plan Visit Data *Final* Discharge Date/Time: 07/01/18 23:50 Chief Complaint: Cardiac Assessment Stated Complaint: af ED Provider: Latesha Monsivais Discharge Problem: Pneumonia, Atrial fibrillation with RVR, COPD exacerbation, Hypotension, Hypoxia, Acute hypokalemia, Hypomagnesemia Patient Disposition: Admitted As Inpatient Condition: Fair Discharge Instructions Interventions: ED Discharge Assessment Last Done: 07/01/18 23:50 The scribe's documentation has been prepared under my direction and personally reviewed by me in its entirety. I confirm that the note above accurately reflects all work, treatment, procedures, and medical decision making performed by me.
[2018-07-02 06:01] LABS: Basophils # (auto) 0.02 K/uL (0-0.2); Basophils % (auto) 0.1 %; Eosinophils # (auto) 0.04 K/uL (0-0.5); Eosinophils % (auto) 0.3 %; Hematocrit (blood only) 34.8 % (37-47); Hemoglobin 11.1 g/dL (12.0-16.0); Immature Granulocytes # (auto) 0.05 K/uL (0.00-0.02); Immature Granulocytes % (auto) 0.4 %; Lymphocytes # (auto) 1.03 K/uL (1.2-3.4); Lymphocytes % (auto) 7.4 %; Mean Corpuscular Hgb Conc 31.9 g/dL (32-36); Mean Corpuscular Volume 87.9 fL (80-100); Mean Platelet Volume 9.5 fL (7.4-10.4); Monocytes # (auto) 0.38 K/uL (0.11-0.59); Monocytes % (auto) 2.7 %; Neutrophils # (auto) 12.47 K/uL (1.4-6.5); Neutrophils % (auto) 89.1 %; Platelet Count 267 K/uL (130-400); RDW Coefficient of Variation 13.8 % (11.5-14.5); RDW Standard Deviation 44.4 fL (36.4-46.3); Red Blood Count 3.96 M/uL (4.2-5.4); White Blood Count 13.99 K/uL (4.8-10.8)
[2018-07-02 06:35] LABS: Calcium 8.9 mg/dl (8.5-10.1); Creatinine Clr Calc Pharmacy 90.4 ml/min; Est GFR (African American) 105.4; Est GFR (Non-African American) 90.9; Potassium 3.1 mmol/L (3.5-5.1)
[2018-07-02] MEDS: ASPIRIN 81 MG ECTAB PO SCH (08:05)
[2018-07-02] MEDS: APIXABAN 5 MG TABLET PO SCH ×2 (08:05→20:10)
[2018-07-02] MEDS: PANTOprazole 40 MG TAB PO SCH (08:05)
[2018-07-02] MEDS: TRIMETHOPRIM/POLYMYXIN B OP SCH ×4 (08:06→20:10)
[2018-07-02] MEDS: ESCITALOPRAM OXALATE 20 MG TAB PO SCH (08:06)
[2018-07-02] MEDS: COLESTIPOL HCL 1 GM TAB PO SCH (08:06)
[2018-07-02] MEDS: GABAPENTIN 400 MG CAP PO SCH ×4 (08:06→20:08)
[2018-07-02] MEDS ORDERED: guaiFENesin 600 MG TABCR PO SCH (09:00)
[2018-07-02] MEDS ORDERED: DEXTROAMPHETAMINE AMPHETAMINE 30 MG PO SCH (09:00)
--- NOTE | 2018-07-02 09:54 | Family Medicine Progress Note ---
Date of Service July 02, 2018 Assessment & Plan (1) COPD exacerbation: 77-year-old female with past medical history of COPD, atrial fibrillation presents with a COPD exacerbation/superimposed bacterial pneumonia in the setting of recent viral illness. Patient was also found to be in atrial fibrillation with RVR. Considering constellation of symptoms including URI, conjunctivitis and diarrhea, it is likely that the patient had contracted adenovirus. Community-acquired pneumonia multifocal pneumonia �Chest x-ray revealed right upper and left lower consolidations - influenza neg �Covering with Rocephin/azithromycin - blood cultures pending COPD exacerbation �Solu-Medrol 40mg 3 times daily IV �Continue Xopenex, singular, Mucinex �Robitussin codeine for cough suppression, every 6 hours A. fib with RVR �Patient currently on a Cardizem drip, her rates beginning to come down this morning �Spoke with nursing regarding starting to titrating the drip, will evaluate rates throughout the day at lower dosing �We will likely switch the patient to p.o. home dose of 240 mg tomorrow morning� �we will then see how she does and whether or not we need to increase her dose to 360 mg. �Continue Eliquis 5 mg twice daily CAD �Continue aspirin, atorvastatin, colestipol Depression/anxiety �Continue Lexapro, Klonopin Hypokalemia �Repleted, follow BMP Diarrhea �Appears to be chronic versus in the setting of viral illness �C. difficile ordered Admitting team continued patient's other home medications including Neurontin, Lamictal��we will follow-up on indication for these medications. FEN �Healthy diet �Fluids discontinued DVT prophylaxis; �Eliquis Disposition; care for the patient continues on telemetry as we titrate down Cardizem drip. (2) Pneumonia: (3) Diarrhea: (4) Conjunctivitis: (5) Acute hypokalemia: (6) Atrial fibrillation with RVR: Supervising Physician Co-Signing Physician Notes Resident Physician Supervision Note: I independently interviewed and examined the patient and verified the unger history and physical, reviewed labs and image studies, discussed the case with the resident Dr. Murrell and agree with the findings and care plan. Subjective 77-year-old female with past medical history of COPD, A. fib presents with hypoxia and A. fib with RVR. She states that her respiratory function began to decline as she developed a cold over the past couple days. She is also had diarrhea. She denies feeling any chest pain or palpitations. Review of Systems Constitutional; no fevers, chills, night sweats HEENT; red itchy eyes, runny nose Respiratory; productive cough Cardio; denies chest pain, palpitations, lower extremity swelling GI; no abdominal pain, denies nausea/vomiting. Reports persistent diarrhea Physical Exam 2 Vital Signs (Past 24 Hours): Last Vital Signs Temp 37.0 C 07/02/18 08:09 Pulse 115 H 07/02/18 08:09 Resp 20 07/02/18 08:09 BP 102/72 07/02/18 08:09 Pulse Ox 93 07/02/18 08:09 Constitutional: WD/WN, vitals as above Eyes: PERRL, conjunctivae normal, anicteric sclerae ENMT: external ear and nose normal, oropharynx normal Respiratory: normal respiratory effort and + cough Auscultation: + rhonchi (Bilateral diffused) and + wheezes Cardiovascular: RRR, no murmur, no edema Gastrointestinal (Abdomen): normal bowel sounds, soft, nontender, no hepatosplenomegaly Musculoskeletal: no cyanosis or clubbing, extremities motor strength 5/5 Results & Data Laboratory Results Laboratory Last Values WBC 13.99 K/uL (4.8-10.8) H 07/02/18 05:41 RBC 3.96 M/uL (4.2-5.4) L 07/02/18 05:41 Hgb 11.1 g/dL (12.0-16.0) L 07/02/18 05:41 Hct 34.8 % (37-47) L 07/02/18 05:41 MCV 87.9 fL (80-100) 07/02/18 05:41 MCH 28.0 pg (25-34) 07/02/18 05:41 MCHC 31.9 g/dL (32-36) L 07/02/18 05:41 RDW Std Deviation 44.4 fL (36.4-46.3) 07/02/18 05:41 RDW Coeff of [place] 13.8 % (11.5-14.5) 07/02/18 05:41 Plt Count 267 K/uL (130-400) 07/02/18 05:41 MPV 9.5 fL (7.4-10.4) 07/02/18 05:41 Immature Gran % (Auto) 0.4 % 07/02/18 05:41 Neut % (Auto) 89.1 % 07/02/18 05:41 Lymph % (Auto) 7.4 % 07/02/18 05:41 [place] % (Auto) 2.7 % 07/02/18 05:41 Eos % (Auto) 0.3 % 07/02/18 05:41 Baso % (Auto) 0.1 % 07/02/18 05:41 Immature Gran # (Auto) 0.05 K/uL (0.00-0.02) H 07/02/18 05:41 Neut # (Auto) 12.47 K/uL (1.4-6.5) H 07/02/18 05:41 Lymph # (Auto) 1.03 K/uL (1.2-3.4) L 07/02/18 05:41 [place] # (Auto) 0.38 K/uL (0.11-0.59) 07/02/18 05:41 Eos # (Auto) 0.04 K/uL (0-0.5) 07/02/18 05:41 Baso # (Auto) 0.02 K/uL (0-0.2) 07/02/18 05:41 PT 12.0 Seconds (9.0-12.0) 07/01/18 21:00 INR 1.2 (0.9-1.1) H 07/01/18 21:00 Sodium 139 mmol/L (136-145) 07/02/18 05:41 Potassium 3.1 mmol/L (3.5-5.1) L 07/02/18 05:41 Chloride 109 mmol/L (98-107) H 07/02/18 05:41 Carbon Dioxide 28 mmol/L (21-32) 07/02/18 05:41 Anion Gap 2.0 (3-11) L 07/02/18 05:41 BUN 8 mg/dl (7-18) 07/02/18 05:41 Creatinine 0.53 mg/dl (0.6-1.2) L 07/02/18 05:41 Est Cr Clr Drug Dosing 90.4 ml/min 07/02/18 05:41 Est GFR ( Amer) 105.4 07/02/18 05:41 Est GFR (Non-Af Amer) 90.9 07/02/18 05:41 BUN/Creatinine Ratio 16.0 (10-20) 07/02/18 05:41 Glucose 195 mg/dl (70-99) H 07/02/18 05:41 Calcium 8.9 mg/dl (8.5-10.1) 07/02/18 05:41 Magnesium 1.7 mg/dl (1.8-2.4) L 07/01/18 21:00 Total Bilirubin 0.4 mg/dl (0.2-1) 07/01/18 21:00 AST 49 U/L (15-37) H 07/01/18 21:00 ALT 53 U/L (12-78) 07/01/18 21:00 Alkaline Phosphatase 182 U/L (45-117) H 07/01/18 21:00 Troponin I < 0.015 ng/ml (0-0.045) 07/01/18 21:00 Total Protein 7.0 gm/dl (6.4-8.2) 07/01/18 21:00 Albumin 2.7 gm/dl (3.4-5.0) L 07/01/18 21:00 Globulin 4.3 gm/dl (2.5-4.0) H 07/01/18 21:00 Albumin/Globulin Ratio 0.6 (0.9-2) L 07/01/18 21:00 Lipase 78 U/L (73-393) 07/01/18 21:00 TSH 0.985 uIu/ml (0.300-4.500) 07/01/18 21:00 Urine Color Yellow 07/02/18 10:55 Urine Appearance Clear (Clear) 07/02/18 10:55 Urine pH 5.5 (4.5-7.5) 07/02/18 10:55 Ur Specific [place] 1.011 (1.000-1.030) 07/02/18 10:55 Urine Protein Negative (Negative) 07/02/18 10:55 Urine Glucose (UA) Trace (Negative) H 07/02/18 10:55 Urine Ketones Negative (Negative) 07/02/18 10:55 Urine Blood Trace (Negative) H 07/02/18 10:55 Urine Nitrite Positive (Negative) H 07/02/18 10:55 Urine Bilirubin Negative (Negative) 07/02/18 10:55 Urine Urobilinogen Negative (Negative) 07/02/18 10:55 Ur Leukocyte Esterase Negative (Negative) 07/02/18 10:55 Urine WBC (Auto) 1-5 /hpf (0-5) 07/02/18 10:55 Urine RBC (Auto) 0-4 /hpf (0-4) 07/02/18 10:55 U Hyaline Cast (Auto) 0 /lpf (0-5) 07/02/18 10:55 U Epithel Cells (Auto) 5-10 /lpf (0-5) H 07/02/18 10:55 Urine Bacteria (Auto) 2+ (Negative) H 07/02/18 10:55 Influenza Type A (PCR) Neg for Influ A (Neg) 07/01/18 21:25 Influenza Type B (PCR) Neg for Influ B (Neg) 07/01/18 21:25 Resident Activity Tracking Resident Involvement: Resident Care Provided Care Provided: [facility] _ (1) Pneumonia Aspiration pneumonia type: Laterality: bilateral Lung location: unspecified part of lung Pneumonia type: due to unspecified organism Qualified Code(s): J18.9 - Pneumonia, unspecified organism
[2018-07-02] MEDS: dilTIAZem HCl 125 MG in DEXTROSE 5% 100 ML IV SCH ×2 (10:44→20:07)
[2018-07-02] MEDS: GUAIFENESIN/CODEINE 100MG/10MG 5ML UDC PO PRN ×2 (10:45→21:02)
[2018-07-02 11:13] LABS: Appearance Urine Clear (Clear); Bacteria Urine Automated 2+ (Negative); Bilirubin Urine Negative (Negative); Cast Urine Automated 0 /lpf (0-5); Color Urine Yellow; Glucose Urine UA Trace (Negative); Ketones Urine Negative (Negative); Leukocyte Esterase Urine Negative (Negative); Nitrite Urine Positive (Negative); Protein Urine Negative (Negative); Specific Gravity Urine 1.011 (1.000-1.030); Urobilinogen Urine Negative (Negative); pH Urine 5.5 (4.5-7.5)
[2018-07-02] MEDS: INSULIN ASPART 100 UNITS/ML 3 ML PEN SC SCH ×2 (16:34→20:11)
[2018-07-02] MEDS: cefTRIAXone SODIUM 1,000 MG in SODIUM CHLOR 0.9% AD-VAN 50 ML IV SCH (20:07)
[2018-07-02] MEDS: guaiFENesin 600 MG TABCR PO SCH (20:08)
[2018-07-02] MEDS: PRAMIPEXOLE DIHYDROCHLO 0.5 MG TAB PO SCH (20:09)
[2018-07-02] MEDS: TRAZODONE HCL 50 MG TAB PO SCH (20:09)
[2018-07-02] MEDS: ATORVASTATIN 40 MG TAB PO SCH (20:10)
[2018-07-02] MEDS: lamoTRIgine 100 MG TAB PO SCH (20:11)
[2018-07-02] MEDS: MONTELUKAST SODIUM 10 MG TABLET PO SCH (20:11)
[2018-07-02] MEDS: clonazePAM 1 MG TAB PO SCH (20:44)
[2018-07-02] MEDS: AZITHROMYCIN 500 MG in DEXTROSE 5% 250 ML IV SCH ×2 (20:44→21:02)
[2018-07-03] MEDS: methylPREDNISolone 40 MG in SYRINGE 0 ML IV SCH ×3 (01:00→16:31)
[2018-07-03] MEDS: LEVALBUTEROL HCL 1.25 MG/3 ML NEB NEB SCH ×4 (02:23→19:28)
[2018-07-03] MEDS: GUAIFENESIN/CODEINE 100MG/10MG 5ML UDC PO PRN ×3 (03:02→20:44)
[2018-07-03 06:05] LABS: Basophils # (auto) 0.01 K/uL (0-0.2); Basophils % (auto) 0.1 %; Eosinophils # (auto) 0.01 K/uL (0-0.5); Eosinophils % (auto) 0.1 %; Hematocrit (blood only) 31.6 % (37-47); Immature Granulocytes # (auto) 0.14 K/uL (0.00-0.02); Immature Granulocytes % (auto) 0.8 %; Lymphocytes # (auto) 1.61 K/uL (1.2-3.4); Lymphocytes % (auto) 9.2 %; Mean Corpuscular Hgb Conc 31.6 g/dL (32-36); Mean Corpuscular Volume 89.3 fL (80-100); Mean Platelet Volume 10.1 fL (7.4-10.4); Monocytes # (auto) 0.76 K/uL (0.11-0.59); Monocytes % (auto) 4.4 %; Neutrophils # (auto) 14.93 K/uL (1.4-6.5); Neutrophils % (auto) 85.4 %; Platelet Count 280 K/uL (130-400); RDW Coefficient of Variation 14.2 % (11.5-14.5); RDW Standard Deviation 46.8 fL (36.4-46.3); Red Blood Count 3.54 M/uL (4.2-5.4); White Blood Count 17.46 K/uL (4.8-10.8)
[2018-07-03 06:43] LABS: BUN Creatinine Ratio 35.6 (10-20); Calcium 9.1 mg/dl (8.5-10.1); Creatinine Clr Calc Pharmacy 84.7 ml/min; Est GFR (African American) 102.9; Est GFR (Non-African American) 88.8; Potassium 3.8 mmol/L (3.5-5.1)
[2018-07-03] MEDS: INSULIN ASPART 100 UNITS/ML 3 ML PEN SC SCH ×4 (07:57→20:49)
[2018-07-03] MEDS: ASPIRIN 81 MG ECTAB PO SCH (07:58)
[2018-07-03] MEDS: APIXABAN 5 MG TABLET PO SCH ×2 (07:58→20:35)
[2018-07-03] MEDS: GABAPENTIN 400 MG CAP PO SCH ×4 (07:59→20:36)
[2018-07-03] MEDS: guaiFENesin 600 MG TABCR PO SCH ×2 (07:59→20:36)
[2018-07-03] MEDS: ESCITALOPRAM OXALATE 20 MG TAB PO SCH (07:59)
[2018-07-03] MEDS: dilTIAZem ER 120 MG CAPCR PO SCH (08:00)
[2018-07-03] MEDS: PANTOprazole 40 MG TAB PO SCH (08:00)
[2018-07-03] MEDS: COLESTIPOL HCL 1 GM TAB PO SCH (09:26)
[2018-07-03] MEDS: TRIMETHOPRIM/POLYMYXIN B OP SCH ×4 (10:08→20:33)
[2018-07-03] MEDS: dilTIAZem HCl 125 MG in DEXTROSE 5% 100 ML IV SCH (12:24)
--- NOTE | 2018-07-03 18:03 | Family Medicine Progress Note ---
Date of Service July 03, 2018 Assessment & Plan (1) Pneumonia: Jigna Alves is a 77-year-old female with past medical history of COPD, atrial fibrillation who was admitted for treatment and management of COPD exacerbation with superimposed bacterial pneumonia in the setting of recent viral illness. 1. Sepsis secondary to Community-acquired pneumonia multifocal pneumonia �Chest x-ray on 07/01 revealed right upper and left lower consolidations - influenza neg -Improving today but continues to cough �Continue treatment with Rocephin/azithromycin on day 2 of - -Robitussin with codeine PRN cough -Blood cultures no growth to date 2. COPD exacerbation �Solu-Medrol 40mg 3 times daily IV -When Improved �Continue Xopenex, singular, Mucinex 3. A-fib with RVR -Cardizem was weaned down and now has been placed on hold -Rate has been controlled during the day on 07/03 -Now on PO home dose of 240mg; consider increasing dose on 07/04 to 360mg if needed �Continue Eliquis 5 mg twice daily 4. Normocytic Anemia -Likely due to hemodilution -Will monitor to see if it improves when fluids are decreased 5. CAD �Continue aspirin, atorvastatin, colestipol 6. Depression/anxiety �Continue Lexapro, Klonopin 7. Hypokalemia �Repleted, follow BMP 8. Diarrhea �Appears to be chronic as she has experienced diarrhea for a year versus in the setting of viral illness �C. difficile ordered 9. Renal -Asymptomatic -Urine culture preliminary report with E. coli -Covered by Rocephin administration Admitting team continued patient's other home medications including Neurontin, Lamictal��we will follow-up on indication for these medications. FEN/GI Fluids: None Electrolytes: Monitor and replace Nutrition: heart healthy Activity: Up with assistance DVT PPX: Eliquis GI PPX: None Disposition: Continue care for the patient on telemetry with plan to transfer to floor when stable. (2) COPD exacerbation: (3) Atrial fibrillation with RVR: Supervising Physician Co-Signing Physician Notes Resident Physician Supervision Note: I independently interviewed and examined the patient and verified the unger history and physical, reviewed labs and image studies, discussed the case with the resident Dr. Kimball and agree with the findings and care plan. Time spent in discharge 35 min Subjective No acute events overnight per nursing. She is feeling much better today and cough has improved. Is taking PO well and ambulating without difficulty. Denies n/v. Constitutional: + fatigue; no fever and no chills Eyes: no discharge and no itchy eyes Ear, Nose, Mouth, Throat: no nasal congestion and no sore throat Respiratory: + cough and + sputum production Cardiovascular: no chest pain and no palpitations Gastrointestinal: + diarrhea/loose stools; no nausea and no vomiting Genitourinary (Female): no dysuria and no hematuria Musculoskeletal: no back pain and no neck pain Integumentary: no rash and no lesions Physical Exam 2 Vital Signs (Past 24 Hours): Last Vital Signs Temp 36.8 C 07/03/18 15:11 Pulse 107 H 07/03/18 15:11 Resp 19 07/03/18 15:11 BP 113/53 L 07/03/18 15:11 Pulse Ox 98 07/03/18 15:11 Constitutional: well nourished, + ill appearing and + obese; no acute distress Eyes: PERRL and EOM intact bilaterally ENMT: external ear and nose normal, oropharynx normal Neck: neck supple Negative LAD Respiratory: normal respiratory effort, lungs clear to auscultation Auscultation: no crackles, no rales and no wheezes Cardiovascular: RRR, no murmur, no edema Heart Sounds: normal S1 and normal S2 Vessels: normal peripheral pulses Gastrointestinal (Abdomen): normal bowel sounds, soft, nontender, no hepatosplenomegaly Musculoskeletal: no cyanosis or clubbing, extremities motor strength 5/5 Skin: no rashes, warm and dry Neurologic: moves all extremities and awake _ (1) Pneumonia Aspiration pneumonia type: Laterality: bilateral Lung location: unspecified part of lung Pneumonia type: due to unspecified organism Qualified Code(s): J18.9 - Pneumonia, unspecified organism
[2018-07-03] MEDS: cefTRIAXone SODIUM 1,000 MG in SODIUM CHLOR 0.9% AD-VAN 50 ML IV SCH (19:23)
[2018-07-03] MEDS: clonazePAM 1 MG TAB PO SCH (20:33)
[2018-07-03] MEDS: TRAZODONE HCL 50 MG TAB PO SCH (20:35)
[2018-07-03] MEDS: MONTELUKAST SODIUM 10 MG TABLET PO SCH (20:35)
[2018-07-03] MEDS: PRAMIPEXOLE DIHYDROCHLO 0.5 MG TAB PO SCH (20:35)
[2018-07-03] MEDS: lamoTRIgine 100 MG TAB PO SCH (20:35)
[2018-07-03] MEDS: ATORVASTATIN 40 MG TAB PO SCH (20:36)
[2018-07-03] MEDS: AZITHROMYCIN 500 MG in DEXTROSE 5% 250 ML IV SCH (20:44)
[2018-07-04] MEDS: methylPREDNISolone 40 MG in SYRINGE 0 ML IV SCH (00:20)
[2018-07-04] MEDS: LEVALBUTEROL HCL 1.25 MG/3 ML NEB NEB SCH ×4 (02:04→19:07)
[2018-07-04] MEDS: GUAIFENESIN/CODEINE 100MG/10MG 5ML UDC PO PRN ×3 (04:13→20:36)
[2018-07-04 05:49] LABS: Basophils # (auto) 0.02 K/uL (0-0.2); Basophils % (auto) 0.1 %; Hematocrit (blood only) 32.1 % (37-47); Hemoglobin 10.1 g/dL (12.0-16.0); Immature Granulocytes # (auto) 0.29 K/uL (0.00-0.02); Immature Granulocytes % (auto) 1.5 %; Lymphocytes # (auto) 1.78 K/uL (1.2-3.4); Lymphocytes % (auto) 8.9 %; Mean Corpuscular Hgb Conc 31.5 g/dL (32-36); Mean Corpuscular Volume 90.2 fL (80-100); Mean Platelet Volume 9.9 fL (7.4-10.4); Monocytes # (auto) 0.82 K/uL (0.11-0.59); Monocytes % (auto) 4.1 %; Neutrophils # (auto) 17.05 K/uL (1.4-6.5); Neutrophils % (auto) 85.4 %; Platelet Count 339 K/uL (130-400); RDW Coefficient of Variation 14.4 % (11.5-14.5); RDW Standard Deviation 47.6 fL (36.4-46.3); Red Blood Count 3.56 M/uL (4.2-5.4); White Blood Count 19.96 K/uL (4.8-10.8)
[2018-07-04 06:14] LABS: BUN Creatinine Ratio 31.4 (10-20); Calcium 9.1 mg/dl (8.5-10.1); Creatinine Clr Calc Pharmacy 73.1 ml/min; Est GFR (African American) 98.1; Est GFR (Non-African American) 84.6; Potassium 3.6 mmol/L (3.5-5.1)
--- NOTE | 2018-07-04 07:42 | Family Medicine Progress Note ---
Date of Service July 04, 2018 Assessment & Plan (1) COPD exacerbation: (1) Pneumonia: Jigna Alves is a 77-year-old female with past medical history of COPD, atrial fibrillation who was admitted for treatment and management of COPD exacerbation with superimposed bacterial pneumonia in the setting of recent viral illness. 1. Sepsis secondary to Community-acquired pneumonia multifocal pneumonia �Chest x-ray on 07/01 revealed right upper and left lower consolidations - influenza neg -Improving today but continues to cough �Continue treatment with Rocephin/azithromycin on day 3 of 11-25 -Robitussin with codeine PRN cough -Blood cultures no growth to date 2. COPD exacerbation �Will wean down steroids to 30mg solu-medrol bid IV �Continue Xopenex, singular, Mucinex 3. A-fib with RVR -Cardizem was weaned down and now has been placed on hold -Rate has been controlled during the day on 07/03 and overnight on 07/04 -Now on PO home dose of 240mg; rates appeared well controlled �Continue Eliquis 5 mg twice daily 4. Normocytic Anemia -Likely due to hemodilution -Appears stable at this point in time 5. CAD �Continue aspirin, atorvastatin, colestipol 6. Depression/anxiety �Continue Lexapro, Klonopin 7. Hypokalemia �Repleted, follow BMP 8. Diarrhea �Appears to be chronic as she has experienced diarrhea for a year versus in the setting of viral illness �C. difficile ordered 9. Renal -Asymptomatic -Urine culture preliminary report with E. coli -Covered by Rocephin administration 10. Leukocytosis likely secondary to IV steroids - elevated WCC - patient has been on IV steroids - Patient is clinically improving therefore will continue with current regimen Admitting team continued patient's other home medications including Neurontin, Lamictal��we will follow-up on indication for these medications. FEN/GI Fluids: None Electrolytes: Monitor and replace Nutrition: heart healthy Activity: Up with assistance DVT PPX: Eliquis GI PPX: None Disposition: Will transfer to medical floor later today if still stable, acute rehab when medically able Supervising Physician Co-Signing Physician Notes Resident Physician Supervision Note: I independently interviewed and examined the patient and verified the unger history and physical, reviewed labs and image studies, discussed the case with the resident Dr. Kimball and agree with the findings and care plan. Subjective Patient notes that she is feeling better today. She has been able to get up and walk to the chair next to the bed. She still has a productive/dry cough. She does not have any shortness of breath, palpitations, chest pain, leg swelling, dizziness. She was seen by PT two days and and she is amenable to physical therapy once discharged from the hospital. Review of Systems All systems reviewed & are unremarkable except as noted in HPI & below Physical Exam 2 Vital Signs (Past 24 Hours): Last Vital Signs Temp 37.0 C 07/04/18 07:01 Pulse 78 07/04/18 07:20 Resp 16 07/04/18 07:20 BP 124/58 L 07/04/18 07:01 Pulse Ox 93 07/04/18 07:20 Physical Exam: GEN: patient with oxygen on via facemask, she appears comfortable and is speaking in full sentences Lungs: LLL crackles, mild generalized wheezing throughout, good air entry bilaterally Cardiac: Irregular rate w/ normal rhythm, no murmurs, No JVD, no pitting edema Abdomen: soft and non tender with normal bowel sounds Lower extremities: no edema, strong peripheral pulses
[2018-07-04] MEDS: INSULIN ASPART 100 UNITS/ML 3 ML PEN SC SCH ×4 (07:49→20:32)
[2018-07-04] MEDS: ASPIRIN 81 MG ECTAB PO SCH (07:51)
[2018-07-04] MEDS: ESCITALOPRAM OXALATE 20 MG TAB PO SCH (07:51)
[2018-07-04] MEDS: APIXABAN 5 MG TABLET PO SCH ×2 (07:51→20:27)
[2018-07-04] MEDS: TRIMETHOPRIM/POLYMYXIN B OP SCH ×4 (07:52→20:28)
[2018-07-04] MEDS: PANTOprazole 40 MG TAB PO SCH (07:52)
[2018-07-04] MEDS: dilTIAZem ER 120 MG CAPCR PO SCH (07:52)
[2018-07-04] MEDS: GABAPENTIN 400 MG CAP PO SCH ×4 (07:52→20:26)
[2018-07-04] MEDS: methylPREDNISolone 30 MG in SYRINGE 0 ML IV SCH ×2 (09:10→21:09)
[2018-07-04] MEDS: guaiFENesin 600 MG TABCR PO SCH ×2 (09:10→20:26)
[2018-07-04] MEDS: COLESTIPOL HCL 1 GM TAB PO SCH (09:10)
[2018-07-04] MEDS: cefTRIAXone SODIUM 1,000 MG in SODIUM CHLOR 0.9% AD-VAN 50 ML IV SCH (20:15)
[2018-07-04] MEDS: clonazePAM 1 MG TAB PO SCH (20:25)
[2018-07-04] MEDS: lamoTRIgine 100 MG TAB PO SCH (20:26)
[2018-07-04] MEDS: PRAMIPEXOLE DIHYDROCHLO 0.5 MG TAB PO SCH (20:27)
[2018-07-04] MEDS: MONTELUKAST SODIUM 10 MG TABLET PO SCH (20:27)
[2018-07-04] MEDS: TRAZODONE HCL 50 MG TAB PO SCH (20:28)
[2018-07-04] MEDS: ATORVASTATIN 40 MG TAB PO SCH (20:28)
[2018-07-04] MEDS: AZITHROMYCIN 500 MG in DEXTROSE 5% 250 ML IV SCH (21:06)
[2018-07-05] MEDS: LEVALBUTEROL HCL 1.25 MG/3 ML NEB NEB SCH ×4 (01:52→19:11)
[2018-07-05] MEDS: GUAIFENESIN/CODEINE 100MG/10MG 5ML UDC PO PRN ×3 (06:18→20:42)
[2018-07-05 06:48] LABS: Basophils # (auto) 0.02 K/uL (0-0.2); Basophils % (auto) 0.1 %; Hemoglobin 10.9 g/dL (12.0-16.0); Immature Granulocytes # (auto) 0.76 K/uL (0.00-0.02); Immature Granulocytes % (auto) 3.6 %; Lymphocytes # (auto) 1.95 K/uL (1.2-3.4); Lymphocytes % (auto) 9.3 %; Mean Corpuscular Hgb Conc 31.1 g/dL (32-36); Mean Corpuscular Volume 90.4 fL (80-100); Mean Platelet Volume 9.7 fL (7.4-10.4); Monocytes # (auto) 1.04 K/uL (0.11-0.59); Neutrophils # (auto) 17.22 K/uL (1.4-6.5); Platelet Count 370 K/uL (130-400); RDW Coefficient of Variation 14.5 % (11.5-14.5); RDW Standard Deviation 48.2 fL (36.4-46.3); Red Blood Count 3.87 M/uL (4.2-5.4); White Blood Count 20.99 K/uL (4.8-10.8)
[2018-07-05 07:15] LABS: BUN Creatinine Ratio 28.3 (10-20); Calcium 9.1 mg/dl (8.5-10.1); Creatinine Clr Calc Pharmacy 69.2 ml/min; Est GFR (African American) 96.2
[2018-07-05] MEDS: TRAVOPROST Z 0.004% OPH SOLN 2.5 ML BTL OPL SCH (07:58)
[2018-07-05] MEDS: INSULIN ASPART 100 UNITS/ML 3 ML PEN SC SCH ×4 (07:58→21:00)
[2018-07-05] MEDS: PANTOprazole 40 MG TAB PO SCH (07:59)
[2018-07-05] MEDS: APIXABAN 5 MG TABLET PO SCH ×2 (07:59→20:55)
[2018-07-05] MEDS: dilTIAZem ER 120 MG CAPCR PO SCH (07:59)
[2018-07-05] MEDS: ASPIRIN 81 MG ECTAB PO SCH (07:59)
[2018-07-05] MEDS: guaiFENesin 600 MG TABCR PO SCH ×2 (07:59→20:52)
[2018-07-05] MEDS: ESCITALOPRAM OXALATE 20 MG TAB PO SCH (07:59)
[2018-07-05] MEDS: TRIMETHOPRIM/POLYMYXIN B OP SCH ×4 (08:00→20:56)
[2018-07-05] MEDS: GABAPENTIN 400 MG CAP PO SCH ×4 (08:00→20:52)
[2018-07-05] MEDS: COLESTIPOL HCL 1 GM TAB PO SCH (11:15)
[2018-07-05] MEDS: methylPREDNISolone 30 MG in SYRINGE 0 ML IV SCH ×2 (11:16→21:35)
[2018-07-05] MEDS: cefTRIAXone SODIUM 1,000 MG in SODIUM CHLOR 0.9% AD-VAN 50 ML IV SCH (20:42)
[2018-07-05] MEDS: clonazePAM 1 MG TAB PO SCH (20:51)
[2018-07-05] MEDS: ATORVASTATIN 40 MG TAB PO SCH (20:52)
[2018-07-05] MEDS: lamoTRIgine 100 MG TAB PO SCH (20:53)
[2018-07-05] MEDS: PRAMIPEXOLE DIHYDROCHLO 0.5 MG TAB PO SCH (20:53)
[2018-07-05] MEDS: TRAZODONE HCL 50 MG TAB PO SCH (20:54)
[2018-07-05] MEDS: MONTELUKAST SODIUM 10 MG TABLET PO SCH (20:55)
[2018-07-05] MEDS: AZITHROMYCIN 500 MG in DEXTROSE 5% 250 ML IV SCH (21:35)
[2018-07-06] MEDS: LEVALBUTEROL HCL 1.25 MG/3 ML NEB NEB SCH ×4 (01:48→19:29)
[2018-07-06] MEDS: GUAIFENESIN/CODEINE 100MG/10MG 5ML UDC PO PRN ×2 (03:27→10:25)
[2018-07-06 06:31] LABS: Hematocrit (blood only) 37.3 % (37-47); Hemoglobin 11.6 g/dL (12.0-16.0); Mean Corpuscular Hgb Conc 31.1 g/dL (32-36); Mean Corpuscular Volume 89.9 fL (80-100); Mean Platelet Volume 9.6 fL (7.4-10.4); Platelet Count 369 K/uL (130-400); RDW Coefficient of Variation 14.4 % (11.5-14.5); RDW Standard Deviation 47.6 fL (36.4-46.3); Red Blood Count 4.15 M/uL (4.2-5.4); White Blood Count 22.97 K/uL (4.8-10.8)
[2018-07-06 07:05] LABS: BUN Creatinine Ratio 22.7 (10-20); Basophils # (auto) 0.03 K/uL (0-0.2); Basophils % (auto) 0.1 %; Eosinophils # (auto) 0.01 K/uL (0-0.5); Est GFR (African American) 85.7; Immature Granulocytes # (auto) 1.26 K/uL (0.00-0.02); Immature Granulocytes % (auto) 5.5 %; Lymphocytes # (auto) 2.44 K/uL (1.2-3.4); Lymphocytes % (auto) 10.6 %; Monocytes # (auto) 1.08 K/uL (0.11-0.59); Monocytes % (auto) 4.7 %; Neutrophils # (auto) 18.15 K/uL (1.4-6.5); Neutrophils % (auto) 79.1 %
[2018-07-06] MEDS: TRAVOPROST Z 0.004% OPH SOLN 2.5 ML BTL OPL SCH (08:01)
[2018-07-06] MEDS: TRIMETHOPRIM/POLYMYXIN B OP SCH ×4 (08:01→20:54)
[2018-07-06] MEDS: dilTIAZem ER 120 MG CAPCR PO SCH (08:02)
[2018-07-06] MEDS: ASPIRIN 81 MG ECTAB PO SCH (08:02)
[2018-07-06] MEDS: ESCITALOPRAM OXALATE 20 MG TAB PO SCH (08:03)
[2018-07-06] MEDS: guaiFENesin 600 MG TABCR PO SCH ×2 (08:03→20:51)
[2018-07-06] MEDS: APIXABAN 5 MG TABLET PO SCH ×2 (08:03→20:49)
[2018-07-06] MEDS: GABAPENTIN 400 MG CAP PO SCH ×4 (08:03→20:52)
[2018-07-06] MEDS: PANTOprazole 40 MG TAB PO SCH (08:03)
[2018-07-06] MEDS: INSULIN ASPART 100 UNITS/ML 3 ML PEN SC SCH ×4 (08:03→20:53)
--- NOTE | 2018-07-06 08:09 | Hospitalist Progress Note ---
Date of Service July 06, 2018 Assessment & Plan (1) COPD exacerbation: Jigna Alves is a 77-year-old female with past medical history of COPD, atrial fibrillation who was admitted for treatment and management of COPD exacerbation with with concern for a pneumonia whether bacterial or viral COPD exacerbation �Will wean down steroids to 30mg solu-medrol bid IV � Xopenex, singular, Mucinex. (2) Multifocal pneumonia: Sepsis secondary to Community-acquired pneumonia multifocal pneumonia �Chest x-ray on 07/01 revealed right upper and left lower consolidations - influenza neg - Rocephin/azithromycin complete a 7-10-day course based on clinical outcome that would be the to the -Blood cultures no growth to date (3) Atrial fibrillation: A-fib with RVR -Rate has been controlled on PO home dose of Diltiazem 240mg; now has increased heart rate due to physiological stressors. Cardiology will evaluate �Continue Eliquis 5 mg twice daily For history of CAD aspirin, atorvastatin, colestipol (4) Anemia: Normocytic Anemia -Appears stable at this point in time (5) Depression: Depression/anxiety Frankie Evans (6) Diarrhea: Diarrhea pt has experienced diarrhea for a year versus in the setting of viral illness �C. difficile negative (7) CKD (chronic kidney disease) stage 3, GFR 30-59 ml/min: renal dose appropriate medications (8) UTI (urinary tract infection): POA growing e coli pansensitive Subjective The patient says she feels about 80% back to her baseline. She is unaware of her tachycardia from her atrial fibrillation. Her biggest improvement she feels is been her breathing. She was seen by cardiology and they have instituted a digoxin load on top of her diltiazem. Patient does have a pansensitive E. coli present on admission and did have C. difficile ruled out by negative C. difficile test. She does remain with leukocytosis Review of Systems ROS: well nourished well developed. No double vision blurry vision No problems with speech or swallowing No palpitations, chest pain or pressure Patient is increased work of breathing a coarse raspy cough no wheezing No abdominal pain nausea vomiting diarrhea changes in appetite or weight No burning urine urine frequency or changes in color despite having the UTI present on admission No focal joint pain or muscle pain No skin rashes or oral lesions No unusual bruising or bleeding No focused back pain or numbness or loss of strength No changes in memory or confusion Physical Exam 2 Vital Signs (Past 24 Hours): Last Vital Signs Temp 36.8 C 07/06/18 07:46 Pulse 140 H 07/06/18 07:46 Resp 18 07/06/18 07:46 BP 128/66 07/06/18 07:46 Pulse Ox 97 07/06/18 07:46 The patient appeared well nourished and normally developed. She appears to be in mild respiratory distress Vital signs as documented. Head exam is unremarkable. normocephalic, atraumatic Neck is without jugular venous distension, thyromegaly, or lymphademopathy Lungs are clear to auscultation and percussion does have coarse breath sounds but actually fairly good air movement. Cardiac exam reveals tachycardic and irregularly irregular. First and second heart sounds normal. Abdominal exam reveals normal bowel sounds, no masses, no organomegaly Extremities are nonedematous and both pedal pulses are present Neurologic exam is A&Ox3, no focal deficits, strength is equal bilateral Psychologically seems neither anxious or depressed Skin is warm Dry without bruises or lesions
[2018-07-06] MEDS ORDERED: METOPROLOL TARTRATE 1 MG/ML VIAL IV PRN (08:15)
[2018-07-06] MEDS: methylPREDNISolone 30 MG in SYRINGE 0 ML IV SCH ×2 (08:35→20:55)
[2018-07-06] MEDS: COLESTIPOL HCL 1 GM TAB PO SCH (08:35)
--- NOTE | 2018-07-06 11:09 | Cardiology Consultation ---
Date of Consultation July 06, 2018 Assessment & Plan (1) Atrial fibrillation with RVR: Mrs. Alves is a 77-year-old female with a history of Non-Obstructive CAD (luminal irregularities only on Cardiac Catheterization 01/17/2004), Negative DSE 12/15/2013, Mild MR, Mild AI, COPD, Rheumatoid Arthritis, Osteoarthritis, prior TIA, Peripheral Vascular Disease, Hypercholesterolemia, Prior UGIB 2013, and Lumbar Degenerative Disc Disease s/p Lumbar Surgery who was admitted acutely to [facility] on 07/01/2018 with Multi-Lobar Pneumonia and a COPD Exacerbation. She also noted to be in A-Fib with RVR. Patient was placed on a Diltiazem drip but she was converted to her usual home dose of oral Diltiazem 240 mg daily as of 07/04/2018 -- but her ventricular response rates have increased. Recommend the following: -- Continue Diltiazem ER 240 mg daily. -- Load IV Digoxin 500 mcg x 1 dose, then 250 mcg x 2 doses at 6 hour intervals. -- Minimize beta blockers due to the patient's underlying lung disease. -- Continue Eliquis 5 mg bid. -- Reducing corticosteroids will likely improve her V-rates as well. Present on Admission?: Yes (2) COPD exacerbation: -- Continue nebulizers, montelukast, Symbicort, and tapering doses of corticosteroids. Present on Admission?: Yes (3) Multifocal pneumonia: -- IV Rocephin 1 g daily. -- IV Azithromycin. Present on Admission?: Yes Supervising Physician Co-Signing Physician Notes Patient was seen and examined on 07/06/2018. Agree with above with following additions: She denies shortness of breath, chest pain, or palpitations. She was given digoxin earlier today by Mr. Mccallum. Shortly thereafter, her heart rate improved significantly and her heart rate is now adequately controlled. Exam notable for: General: No acute distress Neck: No JVD Cardiac: Irregularly irregular but well rate controlled. Normal S1 and S2. Lungs: Clear Extremities: No edema ASSESSMENT/PLAN: 1. Atrial fibrillation: She has permanent atrial fibrillation but her heart rate was suboptimally controlled on her home dose of diltiazem while hospitalized with pneumonia. She is now well rate controlled on digoxin. Can continue digoxin as long as she tolerates. Will convert to oral digoxin later this hospitalization after digoxin load. Maintain digoxin level less than 1. Continue anticoagulation for stroke risk reduction. 2. Disposition: Cardiology will continue to follow. Julio Cantu MD History of Present Illness Reason for Consultation: -- Atrial Fibrillation with RVR. -- Paroxysmal Atrial Fibrillation. Requesting Physician: Nasir Toro MD Attending Physician: Julio Cantu MD History of Present Illness Mrs. Alves is a 77-year-old female with a history of Non-Obstructive CAD ( luminal irregularities only on Cardiac Catheterization 01/17/2004), Negative DSE 12/15/2013, Mild MR, Mild AI, COPD, Rheumatoid Arthritis, Osteoarthritis, prior TIA, Peripheral Vascular Disease, Hypercholesterolemia, Prior UGIB 2013, and Lumbar Degenerative Disc Disease s/p Lumbar Surgery who was admitted acutely to [facility] on 07/01/2018 with Multi-Lobar Pneumonia and a COPD Exacerbation. She was noted to be in A-Fib with RVR at the time of admission so a Diltiazem Drip was initiated. Patient has also been receiving IV Corticosteroids which historically have contributed to her HR speeding up -- so her V-rates have been ranging between 115 to 150 bpm. Patient has been asymptomatic with her A-Fib -- she can't tell when she goes in and out of A-Fib. She is chronically anti-coagulated with Eliquis 5 mg bid and is compliant with this medication. Patient does admit to anterior chest pain only when she coughs. She denies any exertional chest pain, heaviness, tightness, pressure, or discomfort. She denies any neck, back, shoulder, arm, or jaw pain. No nausea, vomiting, or diaphoresis. Her breathing status has improved since being admitted - despite being in rapid A-Fib. She denies any orthopnea or pnd. No syncope or near syncope. She denies any signs or symptoms of stroke or mini stroke. Troponin I level < 0.015 ng/ml. Serum K and serum Mg levels are within normal limits. Patient was initially diagnosed with PAF in 2013 when she presented with an acute UGIB. She also had an episode of A-Fib following her spine surgery in 2014. Allergies Allergy/AdvReac Type Severity Reaction Status Date / Time chocolate flavor Allergy Mild RASH Verified 07/01/18 23:26 fluticasone Allergy Unknown FROM Verified 07/01/18 23:26 ADVAIR, CHEST PAIN mivacurium Allergy Unknown THROAT Verified 07/01/18 23:26 BURNED-LOST WT Penicillins Allergy Unknown UNKNOWN-HAS Verified 07/01/18 23:26 TOLERATED ROCEPHIN IN PAST procaine Allergy Unknown ANAPHYLAXIS/MOUTH Verified 07/01/18 23:26 SWELLING/SOB salmeterol Allergy Unknown FROM Verified 07/01/18 23:26 ADVAIR, CHEST PAIN. moxifloxacin AdvReac Unknown NAUSEA & Verified 07/01/18 23:26 VOMITING NSAIDS (Non-Steroidal AdvReac Unknown AVOID DUE Verified 07/01/18 23:26 Anti-Inflamma TO ULCER HX zolpidem AdvReac Unknown SLEEP Verified 07/01/18 23:26 WALKING Home Medications Home Medications Medication Instructions Recorded Confirmed Type albuterol sulfate [Ventolin HFA] 2 puff INHALATION Q4 PRN 04/24/18 07/01/18 History apixaban [Eliquis] 5 mg PO BID 04/24/18 07/01/18 History aspirin 81 mg PO HS 04/24/18 07/01/18 History atorvastatin 40 mg PO HS 04/24/18 07/01/18 History budesonide-formoterol [Symbicort] 2 puff INHALATION BID PRN 04/24/18 07/01/18 History calcium carbonate-vitamin D3 1 tab PO BID 04/24/18 07/01/18 History [Calcium 600 + D(3)] cholecalciferol (vitamin D3) 2,000 unit PO DAILY 04/24/18 07/01/18 History [Vitamin D3] clonazepam [Klonopin] 1 mg PO HS 04/24/18 07/01/18 History dextroamphetamine-amphetamine 30 mg PO QAM 04/24/18 07/01/18 History [Adderall XR] diclofenac sodium [Voltaren] 1 applic TOPICAL QID PRN 04/24/18 07/01/18 History diltiazem HCl [DILT-XR] 240 mg PO DAILY 04/24/18 07/01/18 History escitalopram oxalate [Lexapro] 20 mg PO DAILY 04/24/18 07/01/18 History gabapentin 400 mg PO QID 04/24/18 07/01/18 History lamotrigine [Lamictal] 150 mg PO HS 04/24/18 07/01/18 History montelukast 10 mg PO PM 04/24/18 07/01/18 History multivitamin 1 tab PO DAILY 04/24/18 07/01/18 History pantoprazole [Protonix] 40 mg PO DAILY 04/24/18 07/01/18 History pramipexole [Mirapex] 0.5 mg PO HS 04/24/18 07/01/18 History trazodone 150 mg PO HS 04/24/18 07/01/18 History dextroamphetamine-amphetamine 15 mg PO QPM 07/01/18 07/01/18 History psyllium husk [Metamucil] 1 tbsp PO DAILY 07/01/18 07/01/18 History tramadol 50 mg PO QID PRN 07/01/18 07/01/18 History travoprost [Travatan Z] 1 drp OPL DAILY 07/01/18 07/01/18 History Patient History Medical History Atrial fibrillation Arthroplasty of knee (Resolved 02/25/13) Nausea vomiting and diarrhea (Acute) Atrial fibrillation with rapid ventricular response (Acute) Dehydration (Acute) UGI bleed (Acute 04/12/14) Lumbar stenosis with neurogenic claudication (Acute) Accidental fall (Acute) Right buttock pain (Acute) Asthma (Acute) COPD exacerbation Right knee DJD Pneumonia Surgical History Post-operative state Social History Current Living Situation: Family Other Information That Helps Us Care for You: No Feels Safe at Home: Yes Safety Concerns: Feels Safe At This Time Smoking Status: Unknown if ever smoked Hx Alcohol Use: No Hx Substance Use: No Beliefs That Will Affect Care: None Communication Ability: Effective Physical Exam 2 Vital Signs (Past 24 Hours): Last Vital Signs Temp 36.8 C 07/06/18 07:46 Pulse 135 H 07/06/18 08:34 Resp 18 07/06/18 07:46 BP 125/77 07/06/18 08:34 Pulse Ox 97 07/06/18 07:46 Physical Exam: GENERAL: Patient is in no acute distress. HEENT: Head is atraumatic, normocephalic. EOM's intact. Facies symmetric. No perioral cyanosis. NECK: No JVD. Carotid upstrokes are + 2 bilaterally without obvious bruits. JVP is not elevated. CHEST and LUNGS: Diminished breath sounds throughout, scattered expiratory wheezes. Crackles in the left base. CVS: S1 and S2 are irregularly irregular, tachycardic, and distant. No obvious murmurs, gallops, or rubs. PMI is nondisplaced. No lifts, heaves, or thrills. No abdominal aortic or renal bruits. ABDOMEN: Bowels sounds are present. No masses, tenderness, or organomegaly. EXTREMITIES: No clubbing, cyanosis, or edema. Intact radial pulses bilaterally. NEUROLOGIC: Patient is awake, alert, and oriented. Pleasant and cooperative. Answers questions appropriately. Speech is clear. Normal movement in all 4 extremities. Gait pattern was not assessed. Telemetry: -- A-Fib with V-rates ranging from 115 to 158 bpm. EKG on admission: Atrial fibrillation with rapid ventricular response with premature ventricular or aberrantly conducted complexes ST & T wave abnormality, consider inferior ischemia Abnormal ECG When compared with ECG of 24-APR-2018 19:30, Vent. rate has increased BY [address] more depressed Lateral leads T wave inversion now evident in Inferior leads T wave inversion now evident in Anterior leads. Results & Data Laboratory Results Laboratory Results - last 24 hr 07/05/18 07/05/18 07/06/18 16:15 20:39 06:10 WBC 22.97 H RBC 4.15 L Hgb 11.6 L Hct 37.3 MCV 89.9 MCH 28.0 MCHC 31.1 L RDW Std Deviation 47.6 H RDW Coeff of Aspen 14.4 Plt Count 369 MPV 9.6 Immature Gran % (Auto) 5.5 Neut % (Auto) 79.1 Lymph % (Auto) 10.6 Tompkins % (Auto) 4.7 Eos % (Auto) 0.0 Baso % (Auto) 0.1 Immature Gran # (Auto) 1.26 H Neut # (Auto) 18.15 H Lymph # (Auto) 2.44 Tompkins # (Auto) 1.08 H Eos # (Auto) 0.01 Baso # (Auto) 0.03 Sodium Potassium Chloride Carbon Dioxide Anion Gap BUN Creatinine Est Cr Clr Drug Dosing Est GFR ( Amer) Est GFR (Non-Af Amer) BUN/Creatinine Ratio Glucose POC Glucose 277 H 223 H Calcium Magnesium 07/06/18 07/06/18 07/06/18 06:10 06:10 07:27 WBC RBC Hgb Hct MCV MCH MCHC RDW Std Deviation RDW Coeff of Aspen Plt Count MPV Immature Gran % (Auto) Neut % (Auto) Lymph % (Auto) Tompkins % (Auto) Eos % (Auto) Baso % (Auto) Immature Gran # (Auto) Neut # (Auto) Lymph # (Auto) Tompkins # (Auto) Eos # (Auto) Baso # (Auto) Sodium 142 Potassium 4.0 Chloride 104 Carbon Dioxide 33 H Anion Gap 5.0 BUN 17 Creatinine 0.77 Est Cr Clr Drug Dosing 63.0 Est GFR ( Amer) 85.7 Est GFR (Non-Af Amer) 74.0 BUN/Creatinine Ratio 22.7 H Glucose 165 H POC Glucose 152 H Calcium 9.0 Magnesium 2.1 07/06/18 11:16 WBC RBC Hgb Hct MCV MCH MCHC RDW Std Deviation RDW Coeff of Aspen Plt Count MPV Immature Gran % (Auto) Neut % (Auto) Lymph % (Auto) Tompkins % (Auto) Eos % (Auto) Baso % (Auto) Immature Gran # (Auto) Neut # (Auto) Lymph # (Auto) Tompkins # (Auto) Eos # (Auto) Baso # (Auto) Sodium Potassium Chloride Carbon Dioxide Anion Gap BUN Creatinine Est Cr Clr Drug Dosing Est GFR ( Amer) Est GFR (Non-Af Amer) BUN/Creatinine Ratio Glucose POC Glucose 139 H Calcium Magnesium Medications Administered Active Medications Generic Name Dose Route Start Last Admin Trade Name Freq PRN Reason Stop Dose Admin Acetaminophen 650 mg 07/02/18 00:31 07/04/18 11:06 Tylenol PO 08/01/18 00:30 650 mg Q4H PRN Administration Pain or Fever Al Hydrox/Mg Hydrox/Simethicone 15 ml 07/02/18 00:31 Maalox PO 08/01/18 00:30 Q4H PRN Dyspepsia Apixaban 5 mg 07/02/18 09:00 07/06/18 08:03 Eliquis PO 08/01/18 08:59 5 mg BID KEESHA Administration Aspirin 81 mg 07/02/18 09:00 07/06/18 08:02 Ecotrin Ectab PO 08/01/18 08:59 81 mg DAILY KEESHA Administration Atorvastatin Calcium 40 mg 07/02/18 21:00 07/05/18 20:52 Lipitor PO 08/01/18 20:59 40 mg HS KEESHA Administration Budesonide/Formoterol Fumarate 2 puffs 07/01/18 22:40 Symbicort 160mcg/4.5mcg INH 07/31/18 22:39 BID PRN Shortness Of Breath Or Wheezing Clonazepam 0.5 mg 07/02/18 21:00 07/05/18 20:51 Klonopin PO 08/01/18 20:59 0.5 mg HS KEESHA Administration Colestipol HCl 1 gm 07/02/18 10:00 07/06/18 08:35 Colestid PO 08/01/18 09:59 1 gm DAILY@1000 KEESHA Administration Diclofenac Sodium 1 appln 07/01/18 22:40 Voltaren 1% Top EXT 07/31/18 22:39 QID PRN Pain Diltiazem HCl 240 mg 07/03/18 09:00 07/06/18 08:02 Tiazac PO 08/02/18 08:59 240 mg QAM KEESHA Administration Escitalopram Oxalate 20 mg 07/02/18 09:00 07/06/18 08:03 Lexapro PO 08/01/18 08:59 20 mg DAILY KEESHA Administration Gabapentin 400 mg 07/02/18 09:00 07/06/18 08:03 Neurontin PO 08/01/18 08:59 400 mg QID KEESHA Administration Gentamicin Sulfate 1 appln 07/06/18 21:00 Gentak 0.3% OP 07/16/18 20:59 QPM KEESHA Guaifenesin 600 mg 07/02/18 21:00 07/06/18 08:03 Mucinex PO 08/01/18 20:59 600 mg Q12 KEESHA Administration Guaifenesin/Codeine Phosphate 5 ml 07/02/18 10:01 07/06/18 10:25 Robitussin-Ac Sugar Free PO 08/01/18 10:00 5 ml Q6H PRN Administration Cough Diltiazem HCl 125 mg/ Dextrose 125 mls @ 7 mls/hr 07/01/18 20:45 07/05/18 04: 19 IV 07/31/18 20:44 Infused .[id number] KEESHA Titration Protocol 7 MG/HR Azithromycin 500 mg/ Dextrose 255 mls @ 125 mls/hr 07/02/18 21:00 07/05/18 23 :47 IV 07/09/18 20:59 Infused Q24H KEESHA Infusion Ceftriaxone Sodium 1,000 mg/ 50 mls @ 100 mls/hr 07/02/18 20:00 07/05/18 21: 35 Sodium Chloride IV 07/09/18 19:59 Infused Q24H KEESHA Infusion Methylprednisolone 30 mg/ 0.48 mls @ 1.5 mls/min 07/04/18 10:00 07/06/18 08: 35 Syringe IV 08/03/18 09:59 1.5 mls/min Q12H KEESHA Administration Digoxin 250 mcg/ Syringe 10 mls @ 2 mls/min 07/06/18 17:00 IV 07/06/18 23:04 Q6H KEESHA Protocol Insulin Aspart 0 units 07/02/18 16:30 07/06/18 08:03 Novolog Flexpen SC 08/01/18 16:29 Not Given ACHS KEESHA Lamotrigine 150 mg 07/02/18 21:00 07/05/18 20:53 Lamictal PO 08/01/18 20:59 150 mg HS KEESHA Administration Levalbuterol HCl 1.25 mg 07/02/18 02:00 07/06/18 07:06 Xopenex 1.25mg/3ml Neb NEB 08/01/18 01:59 1.25 mg Q6R KEESHA Administration Magnesium Hydroxide 30 ml 07/02/18 00:31 Milk Of Magnesia PO 08/01/18 00:30 Q12H PRN Constipation Metoprolol Tartrate 5 mg 07/06/18 08:15 07/06/18 08:34 Lopressor IV 08/05/18 08:14 5 mg Q4 PRN Administration Tachycardia Montelukast Sodium 10 mg 07/02/18 21:00 07/05/18 20:55 Singulair PO 08/01/18 20:59 10 mg PM KEESHA Administration Ondansetron HCl 4 mg 07/02/18 00:31 Zofran IV 08/01/18 00:30 Q6H PRN Nausea Pantoprazole Sodium 40 mg 07/02/18 09:00 07/06/18 08:03 Protonix PO 08/01/18 08:59 40 mg DAILY KEESHA Administration Polyethylene Glycol 17 gm 07/02/18 00:31 Miralax Powder Packet PO 08/01/18 00:30 DAILY PRN Constipation Polymyxin/Trimethoprim Sulfate 2 drops 07/02/18 09:00 07/06/18 08:01 Polytrim OP 08/01/18 08:59 2 drops QID KEESHA Administration Pramipexole Dihydrochloride 0.5 mg 07/02/18 21:00 07/05/18 20:53 Mirapex PO 08/01/18 20:59 0.5 mg HS KEESHA Administration Trazodone HCl 150 mg 07/02/18 21:00 07/05/18 20:54 Desyrel PO 08/01/18 20:59 150 mg HS KEESHA Administration
[2018-07-06] MEDS ORDERED: DIGOXIN 500 MCG in SYRINGE 9 ML IV ONE (11:15)
--- NOTE | 2018-07-06 11:35 | Pharmacy Report ---
Pharmacy Glycemic Rec 1 - Date of Service July 06, 2018 - Scope Glycemic Pharmacist to provide recommendations to improve glycemic control (all ICU patients are screened for hyperglycemia and treatment recommendations are provided per protocol). Pt identified with hyperglycemia (BSG above 180) while admitted to [facility] ([facility]). - Subjective The patient is a 77 year old F admitted on 07/01/18 23:27 for pneumonia, a fib. Patient's past medical history is NOT significant for diabetes mellitus, however pt does have a h/o "pre-diabetes" - Objective Accuchecks BSG (last 24hrs):: 07/05/18 07/05/18 07/06/18 16:15 20:39 06:10 Glucose 165 H POC Glucose 277 H 223 H 07/06/18 07/06/18 07:27 11:16 Glucose POC Glucose 152 H 139 H Laboratory Data (last 24hrs):: 07/06/18 07/06/18 06:10 06:10 WBC 22.97 H Sodium 142 Potassium 4.0 Anion Gap 5.0 BUN 17 Creatinine 0.77 BUN/Creatinine Ratio 22.7 H - Recent Pertinent Medications Outpatient Anti-diabetic Regimen: * N/A The patient is currently receiving: * Basal Insulin: Lantus -- units every -- hours * Correctional Insulin: Novolog Correction per scale ACHS Goal Range: Low 120 mg/dL - High 160 mg/dL Correction Factor: 40 mg/dL/unit * Prandial Insulin: Per carb ratio of 1 unit per -- grams CHO consumed Risk Factors for Insulin Resistance: * Steroids: Solu-Medrol 30mg IV Q 12 hours * Infection: PNA - Assessment & Plan ASSESSMENT: * Pre-diabetic (A1c 5.8% 04/2017) experiencing post-prandial hyperglycemia secondary to IV steroid administration * Fasting BSGs also elevated, however the post-prandial BSG elevations are more significant (200's) * Patient is not ordered prandial insulin (no carb ratio). Adding a carb ratio would proactively prevent these post-prandial hyperglycemic episodes * The following recommendations are based upon pt weight and moderate stress level: RECOMMEND: * Changing correction factor 30 mg/dl/unit * Changing carb ratio 1 unit per 10 grams CHO consumed * Changing goal range Low 110 mg/dL - High 140 mg/dL * Reevaluate insulin doses with each step down in steroid dose with the ultimate plan to d/c prandial insulin when steroids d/c'd Pharmacy will continue to provide recommendations in EMR while patient admitted to 1E/2E. Physicians may request pharmacy to continue to follow patient when transferred out of the ICU and/or consult pharmacy to write glycemic control orders * Please note that the plan above was derived based on current level of insulin resistance and hospital stress. These recommendations are appropriate for inpatient admission only. Plan of care upon discharge will need to be reassessed to avoid potential outpatient hypo/hyperglycemia. Thank you.
[2018-07-06] MEDS: DIGOXIN 250 MCG in SYRINGE 9 ML IV SCH ×2 (16:58→22:47)
[2018-07-06] MEDS: cefTRIAXone SODIUM 1,000 MG in SODIUM CHLOR 0.9% AD-VAN 50 ML IV SCH (20:15)
[2018-07-06] MEDS: TRAZODONE HCL 50 MG TAB PO SCH (20:49)
[2018-07-06] MEDS: ATORVASTATIN 40 MG TAB PO SCH (20:50)
[2018-07-06] MEDS: lamoTRIgine 100 MG TAB PO SCH (20:50)
[2018-07-06] MEDS: PRAMIPEXOLE DIHYDROCHLO 0.5 MG TAB PO SCH (20:51)
[2018-07-06] MEDS: MONTELUKAST SODIUM 10 MG TABLET PO SCH (20:52)
[2018-07-06] MEDS: GENTAMICIN SULFATE 0.3% OP OINT 3.5 GM TUBE OP SCH (20:55)
[2018-07-06] MEDS: clonazePAM 1 MG TAB PO SCH (20:58)
[2018-07-06] MEDS: AZITHROMYCIN 500 MG in DEXTROSE 5% 250 ML IV SCH (20:58)
[2018-07-07] MEDS: LEVALBUTEROL HCL 1.25 MG/3 ML NEB NEB SCH ×4 (01:49→19:55)
[2018-07-07] MEDS: INSULIN ASPART 100 UNITS/ML 3 ML PEN SC SCH ×4 (08:06→20:46)
[2018-07-07] MEDS: PANTOprazole 40 MG TAB PO SCH (08:13)
[2018-07-07] MEDS: APIXABAN 5 MG TABLET PO SCH ×2 (08:13→20:56)
[2018-07-07] MEDS: dilTIAZem ER 120 MG CAPCR PO SCH (08:13)
[2018-07-07] MEDS: guaiFENesin 600 MG TABCR PO SCH ×2 (08:13→20:55)
[2018-07-07] MEDS: GABAPENTIN 400 MG CAP PO SCH ×4 (08:13→20:58)
[2018-07-07] MEDS: ASPIRIN 81 MG ECTAB PO SCH (08:13)
[2018-07-07] MEDS: TRIMETHOPRIM/POLYMYXIN B OP SCH ×4 (08:14→20:58)
[2018-07-07] MEDS: ESCITALOPRAM OXALATE 20 MG TAB PO SCH (08:14)
[2018-07-07] MEDS: TRAVOPROST Z 0.004% OPH SOLN 2.5 ML BTL OPL SCH (08:14)
[2018-07-07] MEDS ORDERED: dilTIAZem ER 120 MG CAPCR PO ONE (08:59)
[2018-07-07] MEDS ORDERED: dilTIAZem ER 180 MG CAPCR PO SCH (09:00)
--- NOTE | 2018-07-07 09:06 | Cardiology Progress Note ---
Date of Service July 07, 2018 Assessment & Plan (1) Atrial fibrillation with RVR: Mrs. Alves is a 77-year-old female with a history of Non-Obstructive CAD (luminal irregularities only on Cardiac Catheterization 01/17/2004), Negative DSE 12/15/2013, Mild MR, Mild AI, COPD, Rheumatoid Arthritis, Osteoarthritis, prior TIA, Peripheral Vascular Disease, Hypercholesterolemia, Prior UGIB 2013, and Lumbar Degenerative Disc Disease s/p Lumbar Surgery who was admitted acutely to [facility] on 07/01/2018 with Multi-Lobar Pneumonia and a COPD Exacerbation. Patient was loaded with IV Digoxin yesterday and overall HR have improved -- unfortunately when she walks around, gets washed up, etc -- her HR goes up into the 150 to 170 bpm. Patient still notes exertional dyspnea which is likely secondary to COPD, pneumonia, and inadequately controlled HR. Recommend the following: -- Increase Diltiazem ER to 360 mg daily. -- Begin oral Digoxin 125 mcg daily. -- Continue Eliquis 5 mg bid. -- Continue IV Lopressor as needed for elevated HR. -- Check EKG this morning to assess QT interval. (2) COPD exacerbation: -- Continue nebulizers, montelukast, Symbicort, and tapering doses of corticosteroids. (3) Multifocal pneumonia: -- IV Rocephin 1 g daily. -- IV Azithromycin. Supervising Physician Co-Signing Physician Notes Julio Cantu MD Subjective Mrs. Alves is a 77-year-old female with a history of Non-Obstructive CAD ( luminal irregularities only on Cardiac Catheterization 01/17/2004), Negative DSE 12/15/2013, Mild MR, Mild AI, COPD, Rheumatoid Arthritis, Osteoarthritis, prior TIA, Peripheral Vascular Disease, Hypercholesterolemia, Prior UGIB 2013, and Lumbar Degenerative Disc Disease s/p Lumbar Surgery who was admitted acutely to [facility] on 07/01/2018 with Multi-Lobar Pneumonia and a COPD Exacerbation. Patient was loaded with IV Digoxin yesterday and overall HR have improved -- unfortunately when she walks around, gets washed up, etc -- her HR goes up into the 150 to 170 bpm. Patient still notes exertional dyspnea which is likely secondary to COPD, pneumonia, and inadequately controlled HR. She denies any exertional chest pain, heaviness, tightness, pressure, or discomfort. She denies any neck, back, shoulder, arm, or jaw pain. No nausea, vomiting, or diaphoresis. No orthopnea or pnd. No syncope or near syncope. No symptoms suggestive of stroke or mini-stroke. Physical Exam 2 Vital Signs (Past 24 Hours): Last Vital Signs Temp 36.9 C 07/07/18 07:19 Pulse 77 07/07/18 07:32 Resp 20 07/07/18 07:32 BP 159/92 H 07/07/18 07:19 Pulse Ox 92 07/07/18 07:32 Physical Exam: GENERAL: Patient is in no acute distress. HEENT: Head is atraumatic, normocephalic. EOM's intact. Facies symmetric. No perioral cyanosis. NECK: No JVD. Carotid upstrokes are + 2 bilaterally without obvious bruits. JVP is not elevated. CHEST and LUNGS: Diminished breath sounds throughout, scattered expiratory wheezes. Crackles in the left base. CVS: S1 and S2 are irregularly irregular, tachycardic, and distant. No obvious murmurs, gallops, or rubs. PMI is nondisplaced. No lifts, heaves, or thrills. No abdominal aortic or renal bruits. ABDOMEN: Bowels sounds are present. No masses, tenderness, or organomegaly. EXTREMITIES: No clubbing, cyanosis, or edema. Intact radial pulses bilaterally. NEUROLOGIC: Patient is awake, alert, and oriented. Pleasant and cooperative. Answers questions appropriately. Speech is clear. Normal movement in all 4 extremities. Gait pattern was not assessed. Telemetry: -- A-Fib with resting V-rates in the 80's to low 100's. With activity V rates go into the 150 to 170 bpm range. Results & Data Laboratory Results Laboratory Results - last 24 hr 07/06/18 07/06/18 07/06/18 11:16 16:37 20:20 POC Glucose 139 H 130 H 153 H 07/07/18 07:41 POC Glucose 148 H Medications Administered Active Medications Generic Name Dose Route Start Last Admin Trade Name Freq PRN Reason Stop Dose Admin Acetaminophen 650 mg 07/02/18 00:31 07/04/18 11:06 Tylenol PO 08/01/18 00:30 650 mg Q4H PRN Administration Pain or Fever Al Hydrox/Mg Hydrox/Simethicone 15 ml 07/02/18 00:31 Maalox PO 08/01/18 00:30 Q4H PRN Dyspepsia Apixaban 5 mg 07/02/18 09:00 07/07/18 08:13 Eliquis PO 08/01/18 08:59 5 mg BID KEESHA Administration Aspirin 81 mg 07/02/18 09:00 07/07/18 08:13 Ecotrin Ectab PO 08/01/18 08:59 81 mg DAILY KEESHA Administration Atorvastatin Calcium 40 mg 07/02/18 21:00 07/06/18 20:50 Lipitor PO 08/01/18 20:59 40 mg HS KEESHA Administration Budesonide/Formoterol Fumarate 2 puffs 07/01/18 22:40 Symbicort 160mcg/4.5mcg INH 07/31/18 22:39 BID PRN Shortness Of Breath Or Wheezing Clonazepam 0.5 mg 07/02/18 21:00 07/06/18 20:58 Klonopin PO 08/01/18 20:59 0.5 mg HS KEESHA Administration Colestipol HCl 1 gm 07/02/18 10:00 07/06/18 08:35 Colestid PO 08/01/18 09:59 1 gm DAILY@1000 [facility] Administration Diclofenac Sodium 1 appln 07/01/18 22:40 Voltaren 1% Top EXT 07/31/18 22:39 QID PRN Pain Digoxin 0.125 mg 07/07/18 16:00 Lanoxin PO 08/06/18 15:59 DAILY@1600 [facility] Diltiazem HCl 360 mg 07/07/18 09:00 Tiazac PO 08/06/18 08:59 QAM [facility] Diltiazem HCl 120 mg 07/07/18 08:59 Tiazac PO 07/07/18 09:00 NOW ONE Escitalopram Oxalate 20 mg 07/02/18 09:00 07/07/18 08:14 Lexapro PO 08/01/18 08:59 20 mg DAILY KEESHA Administration Gabapentin 400 mg 07/02/18 09:00 07/07/18 08:13 Neurontin PO 08/01/18 08:59 400 mg QID KEESHA Administration Gentamicin Sulfate 1 appln 07/06/18 21:00 07/06/18 20:55 Gentak 0.3% OP 07/16/18 20:59 1 appln QPM KEESHA Administration Guaifenesin 600 mg 07/02/18 21:00 07/07/18 08:13 Mucinex PO 08/01/18 20:59 600 mg Q12 KEESHA Administration Guaifenesin/Codeine Phosphate 5 ml 07/02/18 10:01 07/06/18 10:25 Robitussin-Ac Sugar Free PO 08/01/18 10:00 5 ml Q6H PRN Administration Cough Diltiazem HCl 125 mg/ Dextrose 125 mls @ 7 mls/hr 07/01/18 20:45 07/05/18 04: 19 IV 07/31/18 20:44 Infused .[id number] KEESHA Titration Protocol 7 MG/HR Azithromycin 500 mg/ Dextrose 255 mls @ 125 mls/hr 07/02/18 21:00 07/06/18 23 :01 IV 07/09/18 20:59 Infused Q24H KEESHA Infusion Ceftriaxone Sodium 1,000 mg/ 50 mls @ 100 mls/hr 07/02/18 20:00 07/06/18 20: 45 Sodium Chloride IV 07/09/18 19:59 100 mls/hr Q24H KEESHA Infusion Methylprednisolone 30 mg/ 0.48 mls @ 1.5 mls/min 07/04/18 10:00 07/06/18 20: 55 Syringe IV 08/03/18 09:59 1.5 mls/min Q12H KEESHA Administration Insulin Aspart 0 units 07/02/18 16:30 07/07/18 08:06 Novolog Flexpen SC 08/01/18 16:29 Not Given ACHS KEESHA Lamotrigine 150 mg 07/02/18 21:00 07/06/18 20:50 Lamictal PO 08/01/18 20:59 150 mg HS KEESHA Administration Levalbuterol HCl 1.25 mg 07/02/18 02:00 07/07/18 07:08 Xopenex 1.25mg/3ml Neb NEB 08/01/18 01:59 1.25 mg Q6R KEESHA Administration Magnesium Hydroxide 30 ml 07/02/18 00:31 Milk Of Magnesia PO 08/01/18 00:30 Q12H PRN Constipation Metoprolol Tartrate 5 mg 07/06/18 08:15 07/06/18 08:34 Lopressor IV 08/05/18 08:14 5 mg Q4 PRN Administration Tachycardia Montelukast Sodium 10 mg 07/02/18 21:00 07/06/18 20:52 Singulair PO 08/01/18 20:59 10 mg PM KEESHA Administration Ondansetron HCl 4 mg 07/02/18 00:31 Zofran IV 08/01/18 00:30 Q6H PRN Nausea Pantoprazole Sodium 40 mg 07/02/18 09:00 07/07/18 08:13 Protonix PO 08/01/18 08:59 40 mg DAILY KEESHA Administration Polyethylene Glycol 17 gm 07/02/18 00:31 Miralax Powder Packet PO 08/01/18 00:30 DAILY PRN Constipation Polymyxin/Trimethoprim Sulfate 2 drops 07/02/18 09:00 07/07/18 08:14 Polytrim OP 08/01/18 08:59 2 drops QID KEESHA Administration Pramipexole Dihydrochloride 0.5 mg 07/02/18 21:00 07/06/18 20:51 Mirapex PO 08/01/18 20:59 0.5 mg HS KEESHA Administration Trazodone HCl 150 mg 07/02/18 21:00 07/06/18 20:49 Desyrel PO 08/01/18 20:59 150 mg HS KEESHA Administration
[2018-07-07] MEDS: methylPREDNISolone 30 MG in SYRINGE 0 ML IV SCH ×2 (10:02→22:39)
[2018-07-07] MEDS: COLESTIPOL HCL 1 GM TAB PO SCH (11:32)
[2018-07-07] MEDS: DIGOXIN 0.125 MG TAB PO SCH (15:31)
--- NOTE | 2018-07-07 17:30 | Hospitalist Progress Note ---
Date of Service July 07, 2018 Assessment & Plan (1) COPD exacerbation: Jigna Alves is a 77-year-old female with past medical history of COPD, atrial fibrillation who was admitted for treatment and management of COPD exacerbation with with concern for a pneumonia whether bacterial or viral COPD exacerbation �Did wean down steroids to 30mg solu-medrol bid IV has had slight reduction improvement will continue at this dose for another day � Xopenex, singular, Mucinex. (2) Multifocal pneumonia: Sepsis secondary to Community-acquired pneumonia/ multifocal pneumonia �Chest x-ray on 07/01 revealed right upper and left lower consolidations - influenza neg - Rocephin/azithromycin complete a 7-10-day course based on clinical outcome that would be the to the -Blood cultures no growth to date (3) Atrial fibrillation: A-fib with RVR -Rate has been controlled on PO home dose of Diltiazem 240mg; now has increased heart rate due to physiological stressors. Cardiology is increase diltiazem to 360 and loaded with digoxin and digoxin level is pending on 07/08 �Continue anticoagulation Eliquis 5 mg twice daily For history of CAD aspirin, atorvastatin, colestipol (4) Anemia: Normocytic Anemia -Appears stable at this point in time (5) Depression: Depression/anxiety continues to remain stable with Lexapro, Klonopin (6) Diarrhea: Diarrhea pt has experienced diarrhea for a year versus in the setting of viral illness �C. difficile negative we will continue with symptomatic treatment (7) CKD (chronic kidney disease) stage 3, GFR 30-59 ml/min: renal dose appropriate medications watching digoxin level (8) UTI (urinary tract infection): POA growing e coli pansensitive Subjective Patient still feels well with not as good she fell yesterday she cannot completely describe what does not feel well except that she feels her breathing is slightly worse. Her atrial fibrillation has been controlled except with significant exertion and she does have bursts of heart rates in the 140s. Digoxin was added as well as escalation of her diltiazem by cardiology. She has good air movement on the interview with no wheezing audibly heard Review of Systems ROS: well nourished well developed. No double vision blurry vision No problems with speech or swallowing No palpitations, chest pain or pressure No Wheezing complains of subjective shortness of breath No abdominal pain nausea vomiting diarrhea changes in appetite or weight No burning urine urine frequency or changes in color No focal joint pain or muscle pain No skin rashes or oral lesions No unusual bruising or bleeding No focused back pain or numbness or loss of strength No changes in memory or confusion Physical Exam 2 Vital Signs (Past 24 Hours): Last Vital Signs Temp 37.2 C 07/07/18 11:30 Pulse 75 07/07/18 14:06 Resp 18 07/07/18 14:06 BP 129/79 07/07/18 11:30 Pulse Ox 94 07/07/18 14:06 The patient appeared well nourished and normally developed. Vital signs as documented still with bursts of rapid heart rate noted. Head exam is unremarkable. normocephalic, atraumatic Neck is without jugular venous distension, thyromegaly, or lymphademopathy Lungs are with good air movement no wheezing no focal air loss Cardiac exam reveals irregularly irregular Abdominal exam reveals normal bowel sounds, no masses, no organomegaly Extremities are nonedematous and both pedal pulses are present Neurologic exam is A&Ox3, no focal deficits, strength is equal bilateral Psychologically seems neither anxious or depressed Skin is warm Dry without bruises or lesions
[2018-07-07] MEDS: clonazePAM 1 MG TAB PO SCH (20:54)
[2018-07-07] MEDS: cefTRIAXone SODIUM 1,000 MG in SODIUM CHLOR 0.9% AD-VAN 50 ML IV SCH (20:54)
[2018-07-07] MEDS: TRAZODONE HCL 50 MG TAB PO SCH (20:56)
[2018-07-07] MEDS: MONTELUKAST SODIUM 10 MG TABLET PO SCH (20:56)
[2018-07-07] MEDS: PRAMIPEXOLE DIHYDROCHLO 0.5 MG TAB PO SCH (20:56)
[2018-07-07] MEDS: lamoTRIgine 100 MG TAB PO SCH (20:57)
[2018-07-07] MEDS: GENTAMICIN SULFATE 0.3% OP OINT 3.5 GM TUBE OP SCH (20:59)
[2018-07-07] MEDS: ATORVASTATIN 40 MG TAB PO SCH (20:59)
[2018-07-07] MEDS: AZITHROMYCIN 500 MG in DEXTROSE 5% 250 ML IV SCH (21:48)
[2018-07-08] MEDS: LEVALBUTEROL HCL 1.25 MG/3 ML NEB NEB SCH ×4 (02:25→19:07)
[2018-07-08 06:49] LABS: BUN Creatinine Ratio 31.1 (10-20); Creatinine Clr Calc Pharmacy 60.1 ml/min; Est GFR (African American) 81.8; Est GFR (Non-African American) 70.6; Potassium 4.6 mmol/L (3.5-5.1)
[2018-07-08] MEDS: GABAPENTIN 400 MG CAP PO SCH ×4 (08:28→21:25)
[2018-07-08] MEDS: ESCITALOPRAM OXALATE 20 MG TAB PO SCH (08:28)
[2018-07-08] MEDS: PANTOprazole 40 MG TAB PO SCH (08:28)
[2018-07-08] MEDS: guaiFENesin 600 MG TABCR PO SCH ×2 (08:28→21:19)
[2018-07-08] MEDS: TRIMETHOPRIM/POLYMYXIN B OP SCH ×4 (08:29→21:20)
[2018-07-08] MEDS: ASPIRIN 81 MG ECTAB PO SCH (08:29)
[2018-07-08] MEDS: dilTIAZem ER 180 MG CAPCR PO SCH (08:29)
[2018-07-08] MEDS: APIXABAN 5 MG TABLET PO SCH ×2 (08:30→21:21)
[2018-07-08] MEDS: TRAVOPROST Z 0.004% OPH SOLN 2.5 ML BTL OPL SCH (08:30)
[2018-07-08] MEDS: INSULIN ASPART 100 UNITS/ML 3 ML PEN SC SCH ×4 (08:32→21:23)
--- NOTE | 2018-07-08 10:53 | Cardiology Progress Note ---
Date of Service July 08, 2018 Assessment & Plan (1) Atrial fibrillation with RVR: Patient's rate initially improved with digoxin and an increase in her dose of diltiazem. However heart rate has been uncontrolled this morning. Overall she notes improvement in her dyspnea and energy level. Recommend continuing rate control strategy. Will start metoprolol tartrate 25 mg BID, this can be titrated as BP allows. If rate control is unsuccessful could consider antiarrhythmic therapy with amiodarone. Continue anticoagulation for stroke risk reduction. (2) COPD exacerbation: Per primary service. Current respiratory illness may be contributing to elevated heart rates. (3) Multifocal pneumonia: On antibiotic therapy per primary service. Subjective Patient reports feeling better today. She notes improved energy and exertional dyspnea. She denies chest pain, orthopnea, PND or edema. Her heart rate was improved on digoxin and increased dose of diltiazem until this AM when she has averaged 110-120s with rates as high as 170. She remains asymptomatic without palpitations. No lightheadedness, near syncope or syncope. No abnormal bleeding. ROS: 10 point ROS completed and otherwise negative unless stated in HPI. Physical Exam 2 Vital Signs (Past 24 Hours): Last Vital Signs Temp 36.4 C L 07/08/18 06:43 Pulse 89 07/08/18 07:12 Resp 22 07/08/18 07:23 BP 135/86 07/08/18 06:43 Pulse Ox 95 07/08/18 07:23 Physical Exam: General: No acute distress, comfortable. HEENT: Head is normal. PERRLA. EOMI. Sclerae anicteric. Ears, nose and throat unremarkable. Mucous membranes moist. Neck: Normal carotid upstrokes, no bruits. No appreciable JVD. Lungs: Decreased breath sounds but clear to auscultation without rales, rhonchi or wheezes. Cardiac: Irreguarly irregular. Tachycardic. S1-S2 normal. No appreciable murmur , gallop or rub. Abdomen: Soft and nontender. Bowel sounds normal. No mass or organomegaly. No abdominal bruit. Extremities/vascular: Well perfused. No peripheral edema. Radial, DP and PT pulses 2+ bilaterally Skin: No rash or abnormal lesions. Normal turgor. Neurologic: Nonfocal Psychiatric: Affect appropriate. Alert and oriented. Results & Data Laboratory Results Laboratory Results - last 24 hr 07/07/18 07/07/18 07/07/18 11:25 16:35 20:16 Sodium Potassium Chloride Carbon Dioxide Anion Gap BUN Creatinine Est Cr Clr Drug Dosing Est GFR ( Amer) Est GFR (Non-Af Amer) BUN/Creatinine Ratio Glucose POC Glucose 116 H 159 H 121 H Calcium Digoxin 07/08/18 07/08/18 07/08/18 06:01 06:01 07:33 Sodium 138 Potassium 4.6 Chloride 97 L Carbon Dioxide 35 H Anion Gap 6.0 BUN 25 H Creatinine 0.80 Est Cr Clr Drug Dosing 60.1 Est GFR ( Amer) 81.8 Est GFR (Non-Af Amer) 70.6 BUN/Creatinine Ratio 31.1 H Glucose 141 H POC Glucose 131 H Calcium 9.0 Digoxin 1.5 ECG Additional Comments: Telemetry reviewed- afib with controlled rate overnight, this AM afib with RVR rates 110-170
[2018-07-08] MEDS: methylPREDNISolone 30 MG in SYRINGE 0 ML IV SCH ×2 (11:00→21:23)
[2018-07-08] MEDS: COLESTIPOL HCL 1 GM TAB PO SCH (11:00)
[2018-07-08] MEDS: METOPROLOL TARTRATE 25 MG TAB PO SCH ×2 (13:02→21:19)
--- NOTE | 2018-07-08 15:24 | Hospitalist Progress Note ---
Date of Service July 08, 2018 Assessment & Plan (1) COPD exacerbation: Jigna Alves is a 77-year-old female with past medical history of COPD, atrial fibrillation who was admitted for treatment and management of COPD exacerbation with with concern for a pneumonia whether bacterial or viral COPD exacerbation �Will transition steroids to oral dosing on 07/09 �Continues with Xopenex, singular, Mucinex. (2) Multifocal pneumonia: Sepsis secondary to Community-acquired pneumonia/ multifocal pneumonia �Chest x-ray on 07/01 revealed right upper and left lower consolidations - influenza neg - Rocephin/azithromycin complete a 7day patient is improved clinically azithromycin will be bioavailable for additional days within her system we will not add any additional oral medication at this time (3) Atrial fibrillation: A-fib with RVR -Rate has been controlled on PO home dose of Diltiazem 240mg; now has increased heart rate due to physiological stressors. Cardiology is increase diltiazem to 360 and loaded with digoxin continue daily digoxin adding metoprolol 07/08 due to exertional elevation of heart rate �Continue anticoagulation Eliquis 5 mg twice daily For history of CAD aspirin, atorvastatin, colestipol (4) Anemia: Normocytic Anemia Remains stable (5) Depression: Depression/anxiety continues on with Lexapro, Klonopin (6) Diarrhea: Diarrhea pt has experienced diarrhea for a year versus in the setting of viral illness �C. difficile negative we will continue with symptomatic treatment (7) CKD (chronic kidney disease) stage 3, GFR 30-59 ml/min: Continue to follow medication levels (8) UTI (urinary tract infection): when appropriatePOA growing e coli pansensitive Subjective Patient feels improved today she had one episode of rapid heart rate. She considering going to acute rehab if approved. She continues to be bothered by her right groin concerned she has a hernia Review of Systems ROS: well nourished well developed. No double vision blurry vision No problems with speech or swallowing No palpitations, she cannot since her atrial fibrillation, has no chest pain or pressure Persistent dyspnea on exertion no nausea vomiting diarrhea she is of some pain in her right inguinal fold this is been present for some time is not associated with any recent exertion has not changed in size No burning urine urine frequency or changes in color No focal joint pain or muscle pain No skin rashes or oral lesions No unusual bruising or bleeding No focused back pain or numbness or loss of strength No changes in memory or confusion Physical Exam 2 Vital Signs (Past 24 Hours): Last Vital Signs Temp 37 C 07/08/18 15:13 Pulse 72 07/08/18 15:13 Resp 18 07/08/18 15:13 BP 110/57 L 07/08/18 15:13 Pulse Ox 92 07/08/18 15:13 The patient appeared well nourished and normally developed. Vital signs as documented. Head exam is unremarkable. normocephalic, atraumatic Neck is without jugular venous distension, thyromegaly, or lymphademopathy Lungs are clear to auscultation decreased air movement prolonged exploratory phase no wheezes Cardiac exam reveals she has controlled ventricular rate except with exertion Abdominal exam reveals normal bowel sounds, no masses, no organomegaly her right inguinal fold is examined found to have no evidence of lymphadenopathy or defect however it is painful to examination there is no bruit heard Extremities are nonedematous and both pedal pulses are present Neurologic exam is A&Ox3, no focal deficits, strength is equal bilateral Psychologically seems neither anxious or depressed Skin is warm Dry without bruises or lesions
[2018-07-08] MEDS: DIGOXIN 0.125 MG TAB PO SCH (15:54)
[2018-07-08] MEDS ORDERED: methylPREDNISolone 30 MG in SYRINGE 0 ML IV SCH (16:04)
--- NOTE | 2018-07-08 16:49 | Ultrasound Report ---
RIGHT INGUINAL ULTRASOUND FOR HERNIA EVALUATION CLINICAL HISTORY: Right groin pain COMPARISON STUDY: No previous studies for comparison. FINDINGS: There is no ultrasonographic evidence of a right groin hernia. Several architecturally norm al lymph nodes were visualized. IMPRESSION: No ultrasonographic evidence of hernia. Electronically signed by: Ernie Hernandez M.D. 07/08/2018 4:48 PM
[2018-07-08] MEDS: cefTRIAXone SODIUM 1,000 MG in SODIUM CHLOR 0.9% AD-VAN 50 ML IV SCH (19:58)
[2018-07-08] MEDS ORDERED: AZITHROMYCIN 250 MG TAB PO SCH (21:00)
[2018-07-08] MEDS: PRAMIPEXOLE DIHYDROCHLO 0.5 MG TAB PO SCH (21:19)
[2018-07-08] MEDS: ATORVASTATIN 40 MG TAB PO SCH (21:19)
[2018-07-08] MEDS: MONTELUKAST SODIUM 10 MG TABLET PO SCH (21:20)
[2018-07-08] MEDS: GENTAMICIN SULFATE 0.3% OP OINT 3.5 GM TUBE OP SCH (21:20)
[2018-07-08] MEDS: lamoTRIgine 100 MG TAB PO SCH (21:21)
[2018-07-08] MEDS: TRAZODONE HCL 50 MG TAB PO SCH (21:21)
[2018-07-08] MEDS: clonazePAM 1 MG TAB PO SCH (21:22)
[2018-07-09] MEDS: LEVALBUTEROL HCL 1.25 MG/3 ML NEB NEB SCH ×3 (01:28→14:10)
[2018-07-09 07:40] LABS: BUN Creatinine Ratio 40.1 (10-20); Creatinine Clr Calc Pharmacy 61.8 ml/min; Est GFR (African American) 85.7; Potassium 4.2 mmol/L (3.5-5.1)
[2018-07-09] MEDS: guaiFENesin 600 MG TABCR PO SCH (08:39)
[2018-07-09] MEDS: PANTOprazole 40 MG TAB PO SCH (08:39)
[2018-07-09] MEDS: GABAPENTIN 400 MG CAP PO SCH ×2 (08:39→15:12)
[2018-07-09] MEDS: APIXABAN 5 MG TABLET PO SCH (08:39)
[2018-07-09] MEDS: dilTIAZem ER 180 MG CAPCR PO SCH (08:40)
[2018-07-09] MEDS: ESCITALOPRAM OXALATE 20 MG TAB PO SCH (08:40)
[2018-07-09] MEDS: COLESTIPOL HCL 1 GM TAB PO SCH (08:40)
[2018-07-09] MEDS: ASPIRIN 81 MG ECTAB PO SCH (08:40)
[2018-07-09] MEDS: METOPROLOL TARTRATE 25 MG TAB PO SCH (08:41)
[2018-07-09] MEDS: TRAVOPROST Z 0.004% OPH SOLN 2.5 ML BTL OPL SCH (08:41)
[2018-07-09] MEDS: TRIMETHOPRIM/POLYMYXIN B OP SCH ×2 (08:41→15:12)
[2018-07-09] MEDS: INSULIN ASPART 100 UNITS/ML 3 ML PEN SC SCH ×2 (08:42→12:41)
[2018-07-09] MEDS ORDERED: METOPROLOL TARTRATE 25 MG TAB PO STA (08:47)
[2018-07-09] MEDS ORDERED: predniSONE 50 MG TAB PO SCH (09:00)
--- NOTE | 2018-07-09 09:07 | Cardiology Progress Note ---
Date of Service July 09, 2018 Assessment & Plan (1) Atrial fibrillation with RVR: Patient has a history of permanent afib and rate was previously well controlled on diltiazem. During her hospitalization heart rate has been difficult to control. She was initiated on digoxin, metoprolol and diltiazem was increased. Her heart rate has improved overall but she is still tachycardic with little exertion. Recommend continuing rate control strategy as BP allows. Increase metoprolol tartrate to 50 mg twice daily. If rate control is unsuccessful could consider antiarrhythmic therapy. Continue anticoagulation for stroke risk reduction. (2) COPD exacerbation: Per primary service. Current respiratory illness may be contributing to elevated heart rates. (3) Multifocal pneumonia: On antibiotic therapy per primary service. Supervising Physician Co-Signing Physician Notes Please see Attending Cardiology note under separate cover. Heart rate is adequately controlled. Subjective Patient reports continued improvement. Her shortness of breath has resolved. Her cough is improved. No chest pain, orthopnea, PND or edema. No palpitations. She had an episode of lightheadedness when getting out of bed this morning. No near syncope or syncope. No abnormal bleeding. Physical Exam 2 Vital Signs (Past 24 Hours): Last Vital Signs Temp 36.7 C 07/09/18 07:38 Pulse 80 07/09/18 07:38 Resp 20 07/09/18 07:38 BP 149/77 H 07/09/18 07:38 Pulse Ox 95 07/09/18 07:38 Physical Exam: General: No acute distress, comfortable. HEENT: Head is normal. PERRLA. EOMI. Sclerae anicteric. Ears, nose and throat unremarkable. Mucous membranes moist. Neck: Normal carotid upstrokes, no bruits. No appreciable JVD. Lungs: Decreased breath sounds but clear to auscultation without rales, rhonchi or wheezes. Cardiac: Irreguarly irregular. Tachycardic. S1-S2 normal. No appreciable murmur , gallop or rub. Abdomen: Soft and nontender. Bowel sounds normal. No mass or organomegaly. No abdominal bruit. Extremities/vascular: Well perfused. No peripheral edema. Radial, DP and PT pulses 2+ bilaterally Skin: No rash or abnormal lesions. Normal turgor. Neurologic: Nonfocal Psychiatric: Affect appropriate. Alert and oriented. Results & Data Laboratory Results Laboratory Results - last 24 hr 07/08/18 07/08/18 07/08/18 11:47 16:54 20:11 Sodium Potassium Chloride Carbon Dioxide Anion Gap BUN Creatinine Est Cr Clr Drug Dosing Est GFR ( Amer) Est GFR (Non-Af Amer) BUN/Creatinine Ratio Glucose POC Glucose 105 H 242 H 196 H Calcium 07/09/18 07/09/18 06:20 07:31 Sodium 139 Potassium 4.2 Chloride 99 Carbon Dioxide 35 H Anion Gap 5.0 BUN 31 H Creatinine 0.77 Est Cr Clr Drug Dosing 61.8 Est GFR ( Amer) 85.7 Est GFR (Non-Af Amer) 74.0 BUN/Creatinine Ratio 40.1 H Glucose 129 H POC Glucose 128 H Calcium 9.0 ECG Additional Comments: Telemetry reviewed: Afib with avg rates low 100s to 110s. HR up to 160s with ambulation.
--- NOTE | 2018-07-09 13:51 | Cardiology Progress Note ---
Date of Service July 09, 2018 Assessment & Plan (1) Atrial fibrillation with RVR: Has a history of permanent atrial fibrillation. Heart rate has not been well controlled during this hospitalization but with addition of digoxin, titrated diltiazem, and low-dose beta-cheri, her heart rate trend is acceptable based on telemetry readings. She is asymptomatic. Continue anticoagulation for stroke risk reduction. Recommend digoxin level in the next 1-2 weeks, which will be arranged as an outpatient. (2) COPD exacerbation: Per primary service. (3) Multifocal pneumonia: For primary hospitalist service. Disposition: She identifies Dr. Cabral as her primary chemical production machine operator. She would like to follow-up with him. Dr. Cabral was notified of her presentation and treatment. Dr. Cabral office was asked to arrange follow-up appointment in the next 2-3 weeks with digoxin level to be done in the next 1-2 weeks. Patient care discussed with Dr. Toro of the primary hospitalist service. From a cardiac perspective, she can be discharged. Subjective She denies chest pain, syncope, near-syncope, palpitations. She has occasional shortness of breath but overall feels well. She admits that she is weaker than her usual baseline however. She was seen earlier today by Curt Oscar. She was tentatively scheduled to go to [facility] today but requested speaking to a chemical production machine operator this afternoon prior to discharge. Review of systems: As above. Physical Exam 2 Vital Signs (Past 24 Hours): Last Vital Signs Temp 36.7 C 07/09/18 11:46 Pulse 89 07/09/18 11:46 Resp 18 07/09/18 11:46 BP 145/80 H 07/09/18 11:46 Pulse Ox 92 07/09/18 11:46 Physical Exam: Gen.: No acute distress. Alert and oriented. HEENT: Anicteric sclera. Neck: No JVD. Cardiac: Irregularly irregular. Normal S1-S2. No murmurs, rubs, or gallops. Pulmonary: Clear to auscultation bilaterally without wheezes, rales, or rhonchi. Abdomen: Soft, nontender, nondistended, with normoactive bowel sounds. No bruits noted. Extremities: No edema or cyanosis. Psychiatric: Affect appears appropriate. Results & Data Laboratory Results Laboratory Results - last 24 hr 07/08/18 07/08/18 07/09/18 16:54 20:11 06:20 Sodium 139 Potassium 4.2 Chloride 99 Carbon Dioxide 35 H Anion Gap 5.0 BUN 31 H Creatinine 0.77 Est Cr Clr Drug Dosing 61.8 Est GFR ( Amer) 85.7 Est GFR (Non-Af Amer) 74.0 BUN/Creatinine Ratio 40.1 H Glucose 129 H POC Glucose 242 H 196 H Calcium 9.0 07/09/18 07/09/18 07:31 11:18 Sodium Potassium Chloride Carbon Dioxide Anion Gap BUN Creatinine Est Cr Clr Drug Dosing Est GFR ( Amer) Est GFR (Non-Af Amer) BUN/Creatinine Ratio Glucose POC Glucose 128 H 96 Calcium Diagnostic Findings Telemetry personally reviewed: Atrial fibrillation. Heart rate is adequately controlled on digoxin, diltiazem, and metoprolol 25 mg twice daily . Medications Administered Current Inpatient Medications Acetaminophen (Tylenol) 650 mg PO Q4H PRN PRN Reason: Pain or Fever Stop: 08/01/18 00:30 Last Admin: 07/04/18 11:06 Dose: 650 mg Al Hydrox/Mg Hydrox/Simethicone (Maalox) 15 ml PO Q4H PRN PRN Reason: Dyspepsia Stop: 08/01/18 00:30 Apixaban (Eliquis) 5 mg PO BID [facility] Stop: 08/01/18 08:59 Last Admin: 07/09/18 08:39 Dose: 5 mg Aspirin (Ecotrin Ectab) 81 mg PO DAILY [facility] Stop: 08/01/18 08:59 Last Admin: 07/09/18 08:40 Dose: 81 mg Atorvastatin Calcium (Lipitor) 40 mg PO [facility] Stop: 08/01/18 20:59 Last Admin: 07/08/18 21:19 Dose: 40 mg Budesonide/Formoterol Fumarate (Symbicort 160mcg/4.5mcg) 2 puffs INH BID PRN PRN Reason: Shortness Of Breath Or Wheezing Stop: 07/31/18 22:39 Clonazepam (Klonopin) 0.5 mg PO [facility] Stop: 08/01/18 20:59 Last Admin: 07/08/18 21:22 Dose: 0.5 mg Colestipol HCl (Colestid) 1 gm PO DAILY@1000 [facility] Stop: 08/01/18 09:59 Last Admin: 07/09/18 08:40 Dose: 1 gm Diclofenac Sodium (Voltaren 1% Top) 1 appln EXT QID PRN PRN Reason: Pain Stop: 07/31/18 22:39 Digoxin (Lanoxin) 0.125 mg PO DAILY@1600 [facility] Stop: 08/06/18 15:59 Last Admin: 07/08/18 15:54 Dose: 0.125 mg Diltiazem HCl (Tiazac) 360 mg PO QAM [facility] Stop: 08/07/18 08:59 Last Admin: 07/09/18 08:40 Dose: 360 mg Escitalopram Oxalate (Lexapro) 20 mg PO DAILY [facility] Stop: 08/01/18 08:59 Last Admin: 07/09/18 08:40 Dose: 20 mg Gabapentin (Neurontin) 400 mg PO QID [facility] Stop: 08/01/18 08:59 Last Admin: 07/09/18 08:39 Dose: 400 mg Gentamicin Sulfate (Gentak 0.3%) 1 appln OP QPM [facility] Stop: 07/16/18 20:59 Last Admin: 07/08/18 21:20 Dose: 1 appln Guaifenesin (Mucinex) 600 mg PO Q12 [facility] Stop: 08/01/18 20:59 Last Admin: 07/09/18 08:39 Dose: 600 mg Guaifenesin/Codeine Phosphate (Robitussin-Ac Sugar Free) 5 ml PO Q6H PRN PRN Reason: Cough Stop: 08/01/18 10:00 Last Admin: 07/06/18 10:25 Dose: 5 ml Ceftriaxone Sodium 1,000 mg/ (Sodium Chloride) 50 mls @ 100 mls/hr IV Q24H [facility] Stop: 07/09/18 19:59 Last Infusion: 07/08/18 20:33 Dose: Infused Insulin Aspart (Novolog Flexpen) 0 units SC ACHS [facility] Stop: 08/01/18 16:29 Last Admin: 07/09/18 12:41 Dose: Not Given Lamotrigine (Lamictal) 150 mg PO HS [facility] Stop: 08/01/18 20:59 Last Admin: 07/08/18 21:21 Dose: 150 mg Levalbuterol HCl (Xopenex 1.25mg/3ml Neb) 1.25 mg NEB Q6R [facility] Stop: 08/01/18 01:59 Last Admin: 07/09/18 07:20 Dose: 1.25 mg Magnesium Hydroxide (Milk Of Magnesia) 30 ml PO Q12H PRN PRN Reason: Constipation Stop: 08/01/18 00:30 Metoprolol Tartrate (Lopressor) 5 mg IV Q4 PRN PRN Reason: Tachycardia Stop: 08/05/18 08:14 Last Admin: 07/06/18 08:34 Dose: 5 mg Metoprolol Tartrate (Lopressor) 50 mg PO BID [facility] Stop: 08/08/18 20:59 Montelukast Sodium (Singulair) 10 mg PO PM [facility] Stop: 08/01/18 20:59 Last Admin: 07/08/18 21:20 Dose: 10 mg Ondansetron HCl (Zofran) 4 mg IV Q6H PRN PRN Reason: Nausea Stop: 08/01/18 00:30 Pantoprazole Sodium (Protonix) 40 mg PO DAILY [facility] Stop: 08/01/18 08:59 Last Admin: 07/09/18 08:39 Dose: 40 mg Polyethylene Glycol (Miralax Powder Packet) 17 gm PO DAILY PRN PRN Reason: Constipation Stop: 08/01/18 00:30 Polymyxin/Trimethoprim Sulfate (Polytrim) 2 drops OP QID [facility] Stop: 08/01/18 08:59 Last Admin: 07/09/18 08:41 Dose: 2 drops Pramipexole Dihydrochloride (Mirapex) 0.5 mg PO HS [facility] Stop: 08/01/18 20:59 Last Admin: 07/08/18 21:19 Dose: 0.5 mg Prednisone (Prednisone) 50 mg PO DAILY [facility] Stop: 08/08/18 08:59 Last Admin: 07/09/18 08:42 Dose: 50 mg Trazodone HCl (Desyrel) 150 mg PO HS [facility] Stop: 08/01/18 20:59 Last Admin: 07/08/18 21:21 Dose: 150 mg
--- NOTE | 2018-07-09 17:42 | Discharge Summary ---
Date of Service July 09, 2018 Admission HPI Per Admitting Provider Patient is a 77yo F PMH of COPD, afib, DJD who presents with severe cough and cold symptoms for 1 week. She made an appointment today to see her PCP, where she was found to be hypoxic requiring 2-3L of oxygen to maintain oxygen saturations above 88%. She does not use oxygen at home. She has had pneumonia several times in the past. She also reports diarrhea with fecal and urine incontinence in the past few days. She also notes R eye "goop", itchiness, and redness starting 1 day ago. In the ER, she was found to have an elevated WBC count, CXR indicated multilobar pneumonia. She was noted to be in afib with RVR, and a cardizem drip was started and was titrated in the ER. Principal Diagnosis multifocal pneumonia, copd exacerbation, atrial fibrillation Discharge Exam The patient appeared well nourished and normally developed. Vital signs as documented. Head exam is unremarkable. normocephalic, atraumatic Neck is without jugular venous distension, thyromegaly, or lymphademopathy Lungs are clear to auscultation and percussion. No wheezes no focal air loss Cardiac exam reveals rate controlled but irregularly irregular Abdominal exam reveals normal bowel sounds, no masses, no organomegaly Extremities are nonedematous and both pedal pulses are present Neurologic exam is A&Ox3, no focal deficits, strength is equal bilateral Psychologically seems neither anxious or depressed Skin is warm Dry without bruises or lesions Discharge Data Allergies Allergy/AdvReac Type Severity Reaction Status Date / Time chocolate flavor Allergy Mild RASH Verified 07/01/18 23:26 fluticasone Allergy Unknown FROM Verified 07/01/18 23:26 ADVAIR, CHEST PAIN mivacurium Allergy Unknown THROAT Verified 07/01/18 23:26 BURNED-LOST WT Penicillins Allergy Unknown UNKNOWN-HAS Verified 07/01/18 23:26 TOLERATED ROCEPHIN IN PAST procaine Allergy Unknown ANAPHYLAXIS/MOUTH Verified 07/01/18 23:26 SWELLING/SOB salmeterol Allergy Unknown FROM Verified 07/01/18 23:26 ADVAIR, CHEST PAIN. moxifloxacin AdvReac Unknown NAUSEA & Verified 07/01/18 23:26 VOMITING NSAIDS (Non-Steroidal AdvReac Unknown AVOID DUE Verified 07/01/18 23:26 Anti-Inflamma TO ULCER HX zolpidem AdvReac Unknown SLEEP Verified 07/01/18 23:26 WALKING Consultations 07/01/18 22:20 ED Decision to Admit Stat 07/02/18 00:31 Consult Case Management - Discharge Planning Routine 07/06/18 10:45 Consult Cardiology Routine Ordered Studies 07/08/18 15:48 US abdomen ltd hernia Routine Hospital Course (1) COPD exacerbation: Jigna Alves is a 77-year-old female with past medical history of COPD, atrial fibrillation who was admitted for treatment and management of COPD exacerbation with with concern for a pneumonia whether bacterial or viral COPD exacerbation �Continues with Xopenex, singular, Mucinex. Prednisone was unclear and her initial discharge paperwork I did personally phoned and [facility] I did verbally give them an order to begin prednisone therapy tomorrow and I faxed an order for prednisone taper to the facility (2) Multifocal pneumonia: Sepsis secondary to Community-acquired pneumonia/ multifocal pneumonia �Chest x-ray on 07/01 revealed right upper and left lower consolidations - influenza neg - Rocephin/azithromycin complete a 7day patient is improved clinically azithromycin will be bioavailable for additional days within her system we will not add any additional oral medication at this time (3) Atrial fibrillation: A-fib with RVR -Rate has been controlled on PO home dose of Diltiazem 240mg; now has increased heart rate due to physiological stressors. Cardiology is increase diltiazem to 360 and loaded with digoxin continue daily digoxin adding metoprolol succinate 25 mg bid �Continue anticoagulation Eliquis 5 mg twice daily For history of CAD aspirin, atorvastatin, colestipol (4) Anemia: Normocytic Anemia Remains stable (5) Depression: Depression/anxiety continues on with Lexapro, Klonopin (6) Diarrhea: Diarrhea pt has experienced diarrhea for a year versus in the setting of viral illness �C. difficile negative we will continue with symptomatic treatment (7) CKD (chronic kidney disease) stage 3, GFR 30-59 ml/min: Continue to follow medication levels (8) UTI (urinary tract infection): POA growing e coli pansensitive treated with antibiotics for pneumonia Total Time Total Time Spent Total Time Spent (In Minutes): greater than 30 minutes were required to prepare discharge Discharge Plan Discharge Items Patient Disposition: Transfer Inpatient Rehab Fac Reason For Visit: PNEUMONIA, A-FIB Discharge Diagnosis: copd pneumonia, atrial fibrillation Condition: Fair Discharge Goals: Decrease discomfort and Diagnostic testing Activity: Resume your previous activity Non-emergency contact: Primary Care Provider and Feeder/Folder Call non-emergency contact if: you have any medication questions Diet: Regular Addtl Provider Instructions: please follow up with cardiolgist once you leave [facility] Prescriptions: New colestipol [Colestid] 1 gram Tablet 1 g PO DAILY@1000 Qty: 30 RF: 0 diltiazem HCl [Tiazac] 180 mg Capsule,Extended Release 24 Hr 360 mg PO QAM Qty: 60 RF: 0 digoxin 125 mcg Tablet 0.125 mg PO DAILY@1600 Qty: 30 RF: 0 clonazepam 1 mg Tablet 0.5 mg PO HS Qty: 30 RF: 0 codeine-guaifenesin [Cheratussin AC] 10-100 mg/5 mL Liquid 5 ml PO Q6H PRN (Reason: cough) Qty: 118 RF: 0 metoprolol succinate 25 mg tablet extended release 24 hr 25 mg PO BID Qty: 60 RF: 0 prednisone 10 mg tablet 10 mg PO UD Qty: 40 RF: 0 Continue atorvastatin 40 mg tablet 40 mg PO HS RF: 0 aspirin 81 mg Tablet,Delayed Release (Dr/Ec) 81 mg PO HS RF: 0 calcium carbonate-vitamin D3 [Calcium 600 + D(3)] 600 mg(1,500mg) -400 unit Tablet 1 tab PO BID RF: 0 diclofenac sodium [Voltaren] 1 % gel 1 applic Topical QID PRN (Reason: Pain) RF: 0 apixaban [Eliquis] 5 mg tablet 5 mg PO BID RF: 0 multivitamin Tablet 1 tab PO DAILY RF: 0 lamotrigine [Lamictal] 150 mg tablet 150 mg PO HS RF: 0 gabapentin 400 mg Capsule 400 mg PO QID RF: 0 pramipexole [Mirapex] 0.5 mg tablet 0.5 mg PO HS RF: 0 pantoprazole [Protonix] 40 mg tablet,delayed release (DR/EC) 40 mg PO DAILY RF: 0 trazodone 150 mg tablet 150 mg PO HS RF: 0 montelukast 10 mg Tablet 10 mg PO PM RF: 0 albuterol sulfate [Ventolin HFA] 90 mcg/actuation HFA aerosol inhaler 2 puff Inhalation Q4 PRN (Reason: Shortness Of Breath Or Wheezing) RF: 0 escitalopram oxalate [Lexapro] 20 mg tablet 20 mg PO DAILY RF: 0 budesonide-formoterol [Symbicort] 160-4.5 mcg/actuation HFA aerosol inhaler 2 puff Inhalation BID PRN (Reason: Shortness Of Breath Or Wheezing) RF: 0 cholecalciferol (vitamin D3) [Vitamin D3] 2,000 unit Tablet 2,000 unit PO DAILY RF: 0 travoprost 0.004 % drops 1 drp OPL DAILY RF: 0 psyllium husk [Metamucil] 3.4 gram/5.4 gram Powder 1 tbsp PO DAILY RF: 0 Discontinued dextroamphetamine-amphetamine [Adderall XR] 30 mg capsule,extended release 24hr 30 mg PO QAM RF: 0 diltiazem HCl [DILT-XR] 240 mg capsule,ext.rel 24h degradable 240 mg PO DAILY RF: 0 clonazepam [Klonopin] 1 mg tablet 1 mg PO HS RF: 0 tramadol 50 mg tablet 50 mg PO QID PRN (Reason: Pain) RF: 0 dextroamphetamine-amphetamine 15 mg capsule,extended release 24hr 15 mg PO QPM RF: 0 Stand-Alone Forms: [facility] Discharge Orders: Discharge Order (Routine); Ordered 07/09/18 Ordered By: Nasir Toro Skilled Items Patient informed of condition?: Yes DNR: No Discharge Level of Care: Skilled Communicable Disease: No Discharge Prognosis: Stable Admission Data Admit Date/Time: 07/01/18 23:27 Attending Provider: Nasir Toro Admit Provider: Alyse Leahy Primary Care Provider: Faiza Costa Other Providers: Leti Stephen ; Lynne Tapia Alexander W. Service: Telemetry Other Interventions: Discharge Summary Assessment (RN) Last Done: 07/09/18 13:55 DC Date/Time DO NOT enter until pt leaves facility: 07/09/18 15:36
[2018-07-09] MEDS ORDERED: METOPROLOL TARTRATE 50 MG TAB PO SCH (21:00)
--- NOTE | 2018-07-12 11:01 | Family Medicine Progress Note ---
Date of Service July 05, 2018 Assessment & Plan (1) COPD exacerbation: Jigna Alves is a 77-year-old female with past medical history of COPD, atrial fibrillation who was admitted for treatment and management of COPD exacerbation with superimposed bacterial pneumonia in the setting of recent viral illness. 1. Sepsis secondary to Community-acquired pneumonia multifocal pneumonia �Chest x-ray on 07/01 revealed right upper and left lower consolidations - influenza neg -Improving today but continues to cough �Continue treatment with Rocephin/azithromycin on day 4 of 7-10 -Robitussin with codeine PRN cough -Blood cultures no growth to date 2. COPD exacerbation �Continue steroids at 30mg solu-medrol bid IV with plan to wean down to PO tomorrow �Continue Xopenex, singular, Mucinex 3. A-fib with RVR - Rate has been fluctuating. - continue cardizem drip. follow HR - On PO home dose of 240mg; rates appeared well controlled �Continue Eliquis 5 mg twice daily for anticoagulation 4. Normocytic Anemia -Likely due to hemodilution -Appears stable at this point in time 5. CAD �Continue aspirin, atorvastatin, colestipol 6. Depression/anxiety �Continue Lexapro, Klonopin 7. Hypokalemia �Repleted, follow BMP 8. Diarrhea �Appears to be chronic as she has experienced diarrhea for a year versus in the setting of viral illness �C. difficile ordered and was negative 9. Renal -Asymptomatic -Urine culture preliminary report with E. coli -Covered by Rocephin administration 10. Leukocytosis likely secondary to IV steroids - elevated WCC - patient has been on IV steroids - Patient is clinically improving therefore will continue with current regimen FEN/GI Fluids: None Electrolytes: Monitor and replace Nutrition: heart healthy Activity: Up with assistance DVT PPX: Eliquis GI PPX: None Disposition: acute rehab when medically able Supervising Physician Co-Signing Physician Notes Resident Physician Supervision Note: I independently interviewed and examined the patient and verified the unger history and physical, reviewed labs and image studies, discussed the case with the resident Dr. Kimball and agree with the findings and care plan. Subjective Patient today notes that she is feeling better. Her shortness of breath has improved. She has still not been seen by physical therapy this weekend but still plans on going to [facility]. Review of Systems All systems reviewed & are unremarkable except as noted in HPI & below Physical Exam 2 Vital Signs (Past 24 Hours): Last Vital Signs Temp 36.6 C 07/09/18 14:23 Pulse 58 L 07/09/18 14:23 Resp 20 07/09/18 14:23 BP 100/63 07/09/18 14:23 Pulse Ox 96 07/09/18 14:23 Physical Exam: Gen: alert and in no acute distress Abdomen: soft and non tender with normal bowel sounds Lower extremities: no swelling, strong pulses and no pitting edema Lungs: mild wheeze in upper lobes with lower lobe rhonchi Cardiac: irregular rate and rhythm, no murmurs, no JVD
== END 2018-07-09 15:36 | DRG 871 ==
LOC: ED 20:22 → SUATTDRO 23:27 → 2E 23:27 → 2N 07-07 14:33

== ENCOUNTER 2018-11-25 12:15 | Inpatient (IN) ==
[2018-11-25] MEDS ORDERED: ALBUT/IPRATROP 3MG/0.5MG NEB 3 ML VIAL NEB ONE (12:39)
[2018-11-25] MEDS ORDERED: SODIUM CHLORIDE 0.9% 500 ML IV ONE (12:39)
[2018-11-25] MEDS ORDERED: methylPREDNISolone 125 MG/2 ML VIAL IV STA (12:39)
[2018-11-25 12:54] LABS: Basophils # (auto) 0.02 K/uL (0-0.2); Basophils % (auto) 0.2 %; Eosinophils # (auto) 0.15 K/uL (0-0.5); Eosinophils % (auto) 1.9 %; Hematocrit (blood only) 45.7 % (37-47); Hemoglobin 14.8 g/dL (12.0-16.0); Immature Granulocytes # (auto) 0.02 K/uL (0.00-0.02); Immature Granulocytes % (auto) 0.2 %; Lymphocytes # (auto) 1.93 K/uL (1.2-3.4); Lymphocytes % (auto) 23.8 %; Mean Corpuscular Hgb Conc 32.4 g/dL (32-36); Mean Platelet Volume 9.8 fL (7.4-10.4); Monocytes % (auto) 7.4 %; Neutrophils # (auto) 5.38 K/uL (1.4-6.5); Neutrophils % (auto) 66.5 %; Platelet Count 209 K/uL (130-400); RDW Coefficient of Variation 14.4 % (11.5-14.5); RDW Standard Deviation 47.2 fL (36.4-46.3); Red Blood Count 5.08 M/uL (4.2-5.4)
[2018-11-25 13:02] LABS: INR 1.1 (0.9-1.1); Prothrombin Time 11.4 Seconds (9.0-12.0)
[2018-11-25 13:10] LABS: Alanine Aminotransferase 22 U/L (12-78); Albumin Level 3.8 gm/dl (3.4-5.0); Aspartate Aminotransferase 17 U/L (15-37); BUN Creatinine Ratio 18.5 (10-20); Blood Urea Nitrogen 15 mg/dl (7-18); Calcium 10.9 mg/dl (8.5-10.1); Carbon Dioxide 34 mmol/L (21-32); Chloride 104 mmol/L (98-107); Creatinine Clr Calc Pharmacy 58.6 ml/min; Est GFR (African American) 80.1; Est GFR (Non-African American) 69.1; Glucose 124 mg/dl (70-99); Magnesium 1.6 mg/dl (1.8-2.4); Potassium 3.6 mmol/L (3.5-5.1); Sodium 144 mmol/L (136-145)
[2018-11-25 13:15] LABS: Albumin Globulin Ratio 1.1 (0.9-2); Alkaline Phosphatase 119 U/L (45-117); Bilirubin,Total 0.3 mg/dl (0.2-1); Globulin 3.6 gm/dl (2.5-4.0); NT Pro B Type Natriuretic Pept 138 pg/ml (0-1800); Phosphorus 2.8 mg/dl (2.5-4.9); Total Protein 7.4 gm/dl (6.4-8.2); Troponin I < 0.015 ng/ml (0-0.045)
--- NOTE | 2018-11-25 13:22 | XRay Report ---
XR chest 1V portable HISTORY: 78 years-old Female Chest Pain acute atypical chest pain COMPARISON: Chest radiograph 07/01/2018 TECHNIQUE: Portable AP view of the chest FINDINGS: Cardiac mediastinal and hilar silhouettes are within normal limits. Calcification of the thoracic aor tic arch. Resolution of the previously described right upper lobe airspace opacities with near comple te resolution of the left lung base airspace opacities. Mild interstitial coarsening appears chronic. There is no pneumothorax, large pleural effusion or overt pulmonary edema. Degenerative changes of t he shoulders and spine. IMPRESSION: 1. No acute process. 2. Resolution of the previously noted right upper lobe airspace opacities with near complete resoluti on of the left lung base opacities, likely reflective of postinflammatory scarring. The above report was generated using voice recognition software. It may contain grammatical, syntax o r spelling errors. Electronically signed by: Jaylon Alcocer M.D. 11/25/2018 1:21 PM
[2018-11-25] MEDS ORDERED: DOXYCYCLINE HYCLATE 100 MG in DEXTROSE 5% 100 ML IV STA (14:16)
[2018-11-25] MEDS: MAGNESIUM SULFATE / D5W 1 GM/100 ML BAG IV SCH ×2 (14:34→15:45)
[2018-11-25 14:43] LABS: Base Excess VBG 4.9 mEq/L; Oxygen Saturation VBG 68.8 %; pH VBG 7.35 (7.36-7.41)
--- NOTE | 2018-11-25 14:53 | Emergency Department Note ---
Entered by Alice Arreola acting as a scribe for Brendon Joe MD History of Present Illness General Chief complaint: Shortness of Breath/Dyspnea Time Seen by Provider: 11/25/18 12:29 Source: patient Mode of arrival: EMS Limitations: no limitations History of Present Illness Onset (ago): day(s) 3 Location: pelvis Radiation: non-radiation Pain Consistency: + constant Relieved By: + medication (Symbicort), + rest (laying flat) and + other (inhaler, DuoNeb tratments) Exacerbated By: + movement Associated symptoms: + cough Treatments prior to arrival: other (inhaler, symbicort) The patient is a 78 year old female who presents to the ED with complaints of shortness of breath. She was brought to the ED via EMS. A DuoNeb in the field has provided minimal relief. She has a history of asthma and COPD and states she has been using her rescue inhaler more and more because of her symptoms. She has also been using Symbicort with minimal relief. She states laying flat helps to relieve her symptoms. Exertion and movement worsens her breathing. She called [facility] [place] and was told to come in for an appointment. When she got there, they told her they had no appointment for her, but a nurse checked her oxygen and told her to come to the ED as she was 88% on RA. She does not use Oxygen at home. The patient complains of a minimally productive cough with yellow colored sputum. Home Medications Home Medications Medication Instructions Recorded Confirmed Type Eliquis 5 mg PO BID 04/24/18 11/25/18 History Symbicort 2 puff INHALATION BID PRN 04/24/18 11/25/18 History albuterol sulfate [Ventolin HFA] 2 puff INHALATION Q4 PRN 04/24/18 11/25/18 History aspirin 81 mg PO HS 04/24/18 11/25/18 History calcium carbonate-vitamin D3 1 tab PO BID 04/24/18 11/25/18 History [Calcium 600 + D(3)] diclofenac sodium [Voltaren] 1 applic TOPICAL QID PRN 04/24/18 11/25/18 History escitalopram oxalate [Lexapro] 20 mg PO QAM 04/24/18 11/25/18 History lamotrigine [Lamictal] 150 mg PO HS 04/24/18 11/25/18 History montelukast 10 mg PO PM 04/24/18 11/25/18 History multivitamin 1 tab PO QAM 04/24/18 11/25/18 History pantoprazole [Protonix] 40 mg PO QAM 04/24/18 11/25/18 History pramipexole [Mirapex] 0.5 mg PO HS 04/24/18 11/25/18 History trazodone 225 mg PO HS 04/24/18 11/25/18 History Metamucil 1 tbsp PO PM 07/01/18 11/25/18 History travoprost 1 drp OPL QAM 07/01/18 11/25/18 History clonazepam 0.5 mg PO HS #30 tab 07/09/18 11/25/18 Rx diltiazem HCl [Tiazac] 360 mg PO QAM #60 cap 07/09/18 11/25/18 Rx atorvastatin 40 mg tablet 40 mg PO HS #90 tab 11/11/18 11/25/18 Rx gabapentin 400 mg capsule 400 mg PO TID cap 11/16/18 11/25/18 History atomoxetine [Strattera] 0 mg PO QAM 11/25/18 11/25/18 History colestipol [Colestid] 1 g PO PM 11/25/18 11/25/18 History digoxin 0.125 mg PO QAM 11/25/18 11/25/18 History Allergies Allergy/AdvReac Type Severity Reaction Status Date / Time chocolate flavor Allergy Mild RASH Verified 07/01/18 23:26 fluticasone Allergy Unknown FROM Verified 07/01/18 23:26 ADVAIR, CHEST PAIN mivacurium Allergy Unknown THROAT Verified 07/01/18 23:26 BURNED-LOST WT Penicillins Allergy Unknown UNKNOWN-HAS Verified 07/01/18 23:26 TOLERATED ROCEPHIN IN PAST procaine Allergy Unknown ANAPHYLAXIS/MOUTH Verified 07/01/18 23:26 SWELLING/SOB salmeterol Allergy Unknown FROM Verified 07/01/18 23:26 ADVAIR, CHEST PAIN. moxifloxacin AdvReac Unknown NAUSEA & Verified 07/01/18 23:26 VOMITING NSAIDS (Non-Steroidal AdvReac Unknown AVOID DUE Verified 07/01/18 23:26 Anti-Inflamma TO ULCER HX zolpidem AdvReac Unknown SLEEP Verified 07/01/18 23:26 WALKING Past Med/Surg History Medical History Arthroplasty of knee (Resolved 02/25/13) Nausea vomiting and diarrhea (Acute) Atrial fibrillation with rapid ventricular response (Acute) Dehydration (Acute) UGI bleed (Acute 04/12/14) Lumbar stenosis with neurogenic claudication (Acute) Accidental fall (Acute) Right buttock pain (Acute) Asthma (Acute) COPD exacerbation Right knee DJD Atrial fibrillation Pneumonia Surgical History Post-operative state Family History Other No significant family history Social History Preferred Language: [place]al[place] Communication Ability: Effective Operations Clerk Required: No Beliefs That Will Affect Care: None Current Living Situation: Alone Current Living Situation Comment: own apartment in [facility] facility Feels Safe at Home: Yes Safety Concerns: Feels Safe At This Time Smoking Status: Former smoker Do You Dip or Chew Tobacco: No Smoking End Date: Jun 2018 Hx Alcohol Use: No Hx Substance Use: No Review of Systems See HPI for pertinent positives & negatives. and A total of 10 systems reviewed and were otherwise negative Physical Exam Vital Signs Vital Signs - 24 hr 11/25/18 12:30 11/25/18 12:33 11/25/18 12:34 Temperature 36.8 C Temperature Source Oral Sepsis Recent Fever Within 48 Hours No Sepsis New/Unexplained Change in Mental Status No Sepsis Action Taken by Nursing No Action Required Oxygen Flow Rate - Titration 2 Pulse Oximetry Post Tiitration 92 Pulse Rate 71 Pulse Rate [Apical] Pulse Rate from SpO2 Sensor Respiratory Rate 30 H Respiratory Effort / Characteristics Spontaneous Blood Pressure 138/58 L Blood Pressure [Right Arm] Blood Pressure Mean 84 Blood Pressure Mean [Right Arm] Pulse Oximetry 87 L Oxygen Delivery Method Room Air Room Air Nasal Cannula Oxygen Flow Rate 87 11/25/18 12:36 11/25/18 12:54 11/25/18 13:00 Temperature Temperature Source Sepsis Recent Fever Within 48 Hours Sepsis New/Unexplained Change in Mental Status Sepsis Action Taken by Nursing Oxygen Flow Rate - Titration Pulse Oximetry Post Tiitration Pulse Rate 73 Pulse Rate [Apical] 76 Pulse Rate from SpO2 Sensor 74 Respiratory Rate 18 28 H Respiratory Effort / Characteristics Non-Labored Spontaneous Blood Pressure 118/62 Blood Pressure [Right Arm] Blood Pressure Mean 80 Blood Pressure Mean [Right Arm] Pulse Oximetry 92 90 95 Oxygen Delivery Method Nasal Cannula Nasal Cannula Nebulizer Oxygen Flow Rate 2 2 11/25/18 13:30 11/25/18 14:00 11/25/18 14:13 Temperature Temperature Source Sepsis Recent Fever Within 48 Hours Sepsis New/Unexplained Change in Mental Status Sepsis Action Taken by Nursing Oxygen Flow Rate - Titration Pulse Oximetry Post Tiitration Pulse Rate 70 69 Pulse Rate [Apical] Pulse Rate from SpO2 Sensor 71 70 Respiratory Rate 31 H 33 H Respiratory Effort / Characteristics Blood Pressure 118/52 L 127/54 L Blood Pressure [Right Arm] Blood Pressure Mean 74 78 Blood Pressure Mean [Right Arm] Pulse Oximetry 100 100 91 Oxygen Delivery Method Nebulizer Nasal Cannula Oxygen Flow Rate 2 11/25/18 15:00 11/25/18 15:30 11/25/18 16:12 Temperature Temperature Source Sepsis Recent Fever Within 48 Hours Sepsis New/Unexplained Change in Mental Status Sepsis Action Taken by Nursing Oxygen Flow Rate - Titration Pulse Oximetry Post Tiitration Pulse Rate Pulse Rate [Apical] 67 60 Pulse Rate from SpO2 Sensor Respiratory Rate 18 18 Respiratory Effort / Characteristics Spontaneous Labored Short of Breath SOB on Exertion Blood Pressure Blood Pressure [Right Arm] 102/40 L 100/50 L Blood Pressure Mean Blood Pressure Mean [Right Arm] 60 66 Pulse Oximetry 94 91 Oxygen Delivery Method Nasal Cannula Oxygen Flow Rate 2 11/25/18 17:00 Temperature Temperature Source Sepsis Recent Fever Within 48 Hours Sepsis New/Unexplained Change in Mental Status Sepsis Action Taken by Nursing Oxygen Flow Rate - Titration Pulse Oximetry Post Tiitration Pulse Rate Pulse Rate [Apical] 73 Pulse Rate from SpO2 Sensor Respiratory Rate 25 H Respiratory Effort / Characteristics Blood Pressure Blood Pressure [Right Arm] 118/53 L Blood Pressure Mean Blood Pressure Mean [Right Arm] 74 Pulse Oximetry 93 Oxygen Delivery Method Nasal Cannula Oxygen Flow Rate 4 GENERAL: Awake, alert, chronically ill-appearing, in no distress HENT: Normocephalic, atraumatic. Oropharynx with dry mucous membranes and ot herwise unremarkable. EYES: Normal conjunctiva. Sclera non-icteric. NECK: Supple. No nuchal rigidity. FROM. No JVD. RESPIRATORY: Scattered wheezes and rhonchi. CARDIAC: Regular rate, normal rhythm. Extremities warm and well perfused. Pulses equal. ABDOMEN: Soft, non-distended. No tenderness to palpation. No rebound or guarding. No masses. RECTAL: Deferred. MUSCULOSKELETAL: Chest examination reveals no tenderness. The back is symmetrical on inspection without obvious abnormality. There is no CVA tenderness to palpation. No joint edema. LOWER EXTREMITIES: Calves are equal size bilaterally and non-tender. No edema. No discoloration. NEURO: Normal sensorium. No sensory or motor deficits noted. SKIN: No rash or jaundice noted. Course 1233: The patient was evaluated in room B6 and a complete history and physical were performed. 1430: I reevaluated the patient. She is feeling better. I discussed my recommendation she remain in the hospital for further evaluation and she verbalized complete understanding and agreement. 1450: I discussed the patients case [facility] The patient will be further evaluated. Consultations Consultation #1: I discussed the patients case with [facility] The patient will be further evaluated. Time: 14:50 Administered Medications Albuterol (Duoneb) 3 ml NEB QIDR [facility] Stop: 12/25/18 19:59 Last Admin: 11/25/18 20:51 Dose: 3 ml Documented by: [id number] Apixaban (Eliquis) 5 mg PO BID [facility] Stop: 12/25/18 20:59 Last Admin: 11/25/18 20:29 Dose: 5 mg Documented by: [id number] Aspirin (Ecotrin Ectab) 81 mg PO [facility] Stop: 12/25/18 20:59 Last Admin: 11/25/18 20:29 Dose: 81 mg Documented by: [id number] Atorvastatin Calcium (Lipitor) 40 mg PO HS [facility] Stop: 12/25/18 20:59 Last Admin: 11/25/18 20:27 Dose: 40 mg Documented by: [id number] Clonazepam (Klonopin) 0.5 mg PO [facility] Stop: 12/25/18 20:59 Last Admin: 11/25/18 20:27 Dose: 0.5 mg Documented by: [id number] Colestipol HCl (Colestid) 1 gm PO DAILY@2200 [facility] Stop: 12/25/18 21:59 Last Admin: 11/25/18 20:28 Dose: 1 gm Documented by: [id number] Digoxin (Lanoxin) 0.125 mg PO DAILY@1600 [facility] Stop: 12/25/18 15:59 Last Admin: 11/25/18 20:27 Dose: Not Given Documented by: [id number] Gabapentin (Neurontin) 400 mg PO TID [facility] Stop: 12/25/18 20:59 Last Admin: 11/25/18 20:27 Dose: 400 mg Documented by: [id number] Methylprednisolone 40 mg/ (Syringe) 0.64 mls @ 1.5 mls/min IV Q8H [facility] Stop: 12/25/18 19:59 Last Admin: 11/25/18 20:27 Dose: 1.5 mls/min Documented by: [id number] Lamotrigine (Lamictal) 150 mg PO [facility] Stop: 12/25/18 20:59 Last Admin: 11/25/18 20:29 Dose: 150 mg Documented by: [id number] Montelukast Sodium (Singulair) 10 mg PO PM [facility] Stop: 12/25/18 20:59 Last Admin: 11/25/18 20:30 Dose: 10 mg Documented by: [id number] Multivitamins/Minerals (Caltrate Plus) 1 tab PO BID [facility] Stop: 12/25/18 20:59 Last Admin: 11/25/18 20:28 Dose: 1 tab Documented by: [id number] Pramipexole Dihydrochloride (Mirapex) 0.5 mg PO [facility] Stop: 12/25/18 20:59 Last Admin: 11/25/18 20:28 Dose: 0.5 mg Documented by: [id number] Trazodone HCl (Desyrel) 225 mg PO [facility] Stop: 12/25/18 20:59 Last Admin: 11/25/18 20:31 Dose: 225 mg Documented by: [id number] Discontinued Medications Albuterol (Duoneb) 12 ml NEB ONE ONE Stop: 11/25/18 12:40 Last Admin: 11/25/18 12:53 Dose: 12 ml Documented by: [id number] Sodium Chloride (Nss) 500 mls @ 999 mls/hr IV .Q31M ONE Stop: 11/25/18 13:09 Last Infusion: 11/25/18 13:34 Dose: 0 mls/hr Documented by: [id number] Admin: 11/25/18 12:50 Dose: 999 mls/hr Documented by: [id number] Magnesium Sulfate/Dextrose (Magnesium Sulfate / D5w) 1 gm in 100 mls @ 100 mls/hr IV Q1H [facility] Stop: 11/25/18 16:29 Last Infusion: 11/25/18 16:54 Dose: 0 mls/hr Documented by: [id number] Admin: 11/25/18 15:45 Dose: 100 mls/hr Documented by: [id number] Infusion: 11/25/18 15:30 Dose: 0 mls/hr Documented by: [id number] Admin: 11/25/18 14:34 Dose: 100 mls/hr Documented by: [id number] Doxycycline Hyclate 100 mg/ (Dextrose) 110 mls @ 50 mls/hr IV NOW STA Stop: 11/25/18 16:27 Last Infusion: 11/25/18 16:54 Dose: 0 mls/hr Documented by: [id number] Admin: 11/25/18 14:34 Dose: 50 mls/hr Documented by: [id number] Methylprednisolone (Solumedrol) 125 mg IV NOW STA Stop: 11/25/18 12:40 Last Admin: 11/25/18 12:50 Dose: 125 mg Documented by: [id number] Medical Decision Making Differential Diagnosis Differential diagnoses includes but is not limited to pneumonia, bronchitis, COPD/Asthma exacerbation, pneumothorax, pulmonary embolism, congestive heart failure, acute coronary syndrome. Medical Records Attestation: I reviewed the patient's medical records. Home Medications Current Medication List: was personally reviewed by me Laboratory Data Attestation: I reviewed the patient's lab results. Result diagrams: 11/25/18 12:33 11/25/18 12:33 Lab Results 11/25/18 11/25/18 11/25/18 Range/Units 12:33 12:33 12:33 WBC 8.10 (4.8-10.8) K/uL RBC 5.08 (4.2-5.4) M/uL Hgb 14.8 (12.0-16.0) g/dL Hct 45.7 (37-47) % MCV 90.0 (80-100) fL MCH 29.1 (25-34) pg MCHC 32.4 (32-36) g/dL RDW Std Deviation 47.2 H (36.4-46.3) fL RDW Coeff of Aspen 14.4 (11.5-14.5) % Plt Count 209 (130-400) K/uL MPV 9.8 (7.4-10.4) fL Immature Gran % (Auto) 0.2 % Neut % (Auto) 66.5 % Lymph % (Auto) 23.8 % Pender % (Auto) 7.4 % Eos % (Auto) 1.9 % Baso % (Auto) 0.2 % Immature Gran # (Auto) 0.02 (0.00-0.02) K/uL Neut # (Auto) 5.38 (1.4-6.5) K/uL Lymph # (Auto) 1.93 (1.2-3.4) K/uL Pender # (Auto) 0.60 H (0.11-0.59) K/uL Eos # (Auto) 0.15 (0-0.5) K/uL Baso # (Auto) 0.02 (0-0.2) K/uL PT 11.4 (9.0-12.0) Seconds INR 1.1 (0.9-1.1) VBG pH (7.36-7.41) VBG pCO2 (38-50) mmHg VBG pO2 mmHg VBG HCO3 mmol/L VBG O2 Saturation % VBG Base Excess mEq/L Barometric Pressure mm/Hg Sodium 144 (136-145) mmol/L Potassium 3.6 (3.5-5.1) mmol/L Chloride 104 (98-107) mmol/L Carbon Dioxide 34 H (21-32) mmol/L Anion Gap 7.0 (3-11) BUN 15 (7-18) mg/dl Creatinine 0.81 (0.6-1.2) mg/dl Est Cr Clr Drug Dosing 58.6 ml/min Est GFR ( Amer) 80.1 Est GFR (Non-Af Amer) 69.1 BUN/Creatinine Ratio 18.5 (10-20) Glucose 124 H (70-99) mg/dl Calcium 10.9 H (8.5-10.1) mg/dl Phosphorus 2.8 (2.5-4.9) mg/dl Magnesium 1.6 L (1.8-2.4) mg/dl Total Bilirubin 0.3 (0.2-1) mg/dl AST 17 (15-37) U/L ALT 22 (12-78) U/L Alkaline Phosphatase 119 H (45-117) U/L Troponin I < 0.015 (0-0.045) ng/ml NT-Pro-B Natriuret Pep 138 (0-1800) pg/ml Total Protein 7.4 (6.4-8.2) gm/dl Albumin 3.8 (3.4-5.0) gm/dl Globulin 3.6 (2.5-4.0) gm/dl Albumin/Globulin Ratio 1.1 (0.9-2) Lipase 156 (73-393) U/L 11/25/18 Range/Units 14:27 WBC (4.8-10.8) K/uL RBC (4.2-5.4) M/uL Hgb (12.0-16.0) g/dL Hct (37-47) % MCV (80-100) fL MCH (25-34) pg MCHC (32-36) g/dL RDW Std Deviation (36.4-46.3) fL RDW Coeff of Aspen (11.5-14.5) % Plt Count (130-400) K/uL MPV (7.4-10.4) fL Immature Gran % (Auto) % Neut % (Auto) % Lymph % (Auto) % Pender % (Auto) % Eos % (Auto) % Baso % (Auto) % Immature Gran # (Auto) (0.00-0.02) K/uL Neut # (Auto) (1.4-6.5) K/uL Lymph # (Auto) (1.2-3.4) K/uL Pender # (Auto) (0.11-0.59) K/uL Eos # (Auto) (0-0.5) K/uL Baso # (Auto) (0-0.2) K/uL PT (9.0-12.0) Seconds INR (0.9-1.1) VBG pH 7.35 L (7.36-7.41) VBG pCO2 61 H (38-50) mmHg VBG pO2 37 mmHg VBG HCO3 32 mmol/L VBG O2 Saturation 68.8 % VBG Base Excess 4.9 mEq/L Barometric Pressure 732.1 mm/Hg Sodium (136-145) mmol/L Potassium (3.5-5.1) mmol/L Chloride (98-107) mmol/L Carbon Dioxide (21-32) mmol/L Anion Gap (3-11) BUN (7-18) mg/dl Creatinine (0.6-1.2) mg/dl Est Cr Clr Drug Dosing ml/min Est GFR ( Amer) Est GFR (Non-Af Amer) BUN/Creatinine Ratio (10-20) Glucose (70-99) mg/dl Calcium (8.5-10.1) mg/dl Phosphorus (2.5-4.9) mg/dl Magnesium (1.8-2.4) mg/dl Total Bilirubin (0.2-1) mg/dl AST (15-37) U/L ALT (12-78) U/L Alkaline Phosphatase (45-117) U/L Troponin I (0-0.045) ng/ml NT-Pro-B Natriuret Pep (0-1800) pg/ml Total Protein (6.4-8.2) gm/dl Albumin (3.4-5.0) gm/dl Globulin (2.5-4.0) gm/dl Albumin/Globulin Ratio (0.9-2) Lipase (73-393) U/L Imaging Data Radiologist's Impression: Radiology results as stated below per my review and the radiologist's interpretation: XR chest 1V portable HISTORY: 78 years-old Female Chest Pain acute atypical chest pain COMPARISON: Chest radiograph 07/01/2018 TECHNIQUE: Portable AP view of the chest FINDINGS: Cardiac mediastinal and hilar silhouettes are within normal limits. Calcification of the thoracic aortic arch. Resolution of the previously described right upper lobe airspace opacities with near complete resolution of the left lung base airspace opacities. Mild interstitial coarsening appears chronic. There is no pneumothorax, large pleural effusion or overt pulmonary edema. Degenerative changes of the shoulders and spine. IMPRESSION: 1. No acute process. 2. Resolution of the previously noted right upper lobe airspace opacities with near complete resolution of the left lung base opacities, likely reflective of postinflammatory scarring. The above report was generated using voice recognition software. It may contain grammatical, syntax or spelling errors. Electronically signed by: Jaylon Alcocer M.D. 11/25/2018 1:21 PM ECG Data Attestation: I personally reviewed and interpreted this ECG as follows: Indication: SOB/dyspnea Rate (beats per minute): 81 Rhythm: sinus with SA (versus atrial ectopic rhythm) Findings: + other (Non-specific T-wave abnormality) and + nonspecific-ST abn; no acute ischemic change Comparison ECG Date: from (07/07/2018) Change: no significant change (ST and T-wave abnormalities are similar to previous EKG) Blood Pressure Blood Pressure Findings: Low blood pressure MDM Narrative The patient is a pleasant 78 y/o woman with a pmhx of asthma/COPD, afib on Eliquis who presents to the emergency department with worsening cough, congestion, and sob over the past week per HPI. On arrival the patient is in NAD, AFVSS. Patient appears clinically dry. She exhibits scattered wheezes and rhonchi. EKG with likely atrial ectopic rhythm with nonspecific ST and TWA that are similar to prior. No overt acute ischemia. CXR without acute process and demonstrates improvement from 06/2018 when admitted with multifocal pna. WBC, H/H, platelets wnl. VBG with mild hypercapnea with pCO 62. pH 7.35. Chemistry without acidosis. Magnesium 1.6 with repletion provided. LFTs unremarkable. Troponin negatiev and BNP wnl. Patient feeling improved after solumedrol and continuous dubneb however still with new O2 requirement with saturation 91% on 3L NC. Patient agreeable with admission. Will treat with Doxycycline for atypical coverage given sputum production. Case was discussed with Dr. Suárez, [facility] hospitalist, who will evaluate the patient for admission. Impression & Plan COPD exacerbation, Hypomagnesemia Discharge Plan Visit Data *Final* Discharge Date/Time: 11/25/18 19:01 Chief Complaint: Shortness of Breath/Dyspnea ED Provider: Brendon Joe Discharge Problem: COPD exacerbation, Hypomagnesemia Patient Disposition: Admitted As Inpatient Discharge Instructions Interventions: ED Discharge Assessment Last Done: 11/25/18 19:01 The scribe's documentation has been prepared under my direction and personally reviewed by me in its entirety. I confirm that the note above accurately reflects all work, treatment, procedures, and medical decision making performed by me.
[2018-11-25] MEDS ORDERED: ONDANSETRON INJ 2 MG/ML 2 ML VIAL IV PRN (19:08)
[2018-11-25] MEDS ORDERED: POLYETHYLENE (MIRALAX) 17 GM PACK PO PRN (19:08)
[2018-11-25] MEDS ORDERED: ALBUTEROL HFA 8 GM INHALER INH PRN (19:08)
[2018-11-25] MEDS ORDERED: ALUMINUM/MAGNESIUM SUSP 30 ML UDC PO PRN (19:08)
[2018-11-25] MEDS ORDERED: NITROGLYCERIN SL 0.4 MG/TAB TAB SL PRN (19:08)
[2018-11-25] MEDS ORDERED: BUDESONIDE/FORMOTEROL FUMARATE 160/4.5 60 PUFFS/INHALER INH PRN (19:08)
[2018-11-25] MEDS: methylPREDNISolone 40 MG in SYRINGE 0 ML IV SCH (20:27)
[2018-11-25] MEDS: GABAPENTIN 400 MG CAP PO SCH (20:27)
[2018-11-25] MEDS: clonazePAM 1 MG TAB PO SCH (20:27)
[2018-11-25] MEDS: DIGOXIN 0.125 MG TAB PO SCH (20:27)
[2018-11-25] MEDS: ATORVASTATIN 40 MG TAB PO SCH (20:27)
[2018-11-25] MEDS: CALCIUM 600MG + VIT D 400 IU TAB PO SCH (20:28)
[2018-11-25] MEDS: PRAMIPEXOLE DIHYDROCHLO 0.5 MG TAB PO SCH (20:28)
[2018-11-25] MEDS: COLESTIPOL HCL 1 GM TAB PO SCH (20:28)
[2018-11-25] MEDS: lamoTRIgine 100 MG TAB PO SCH (20:29)
[2018-11-25] MEDS: APIXABAN 5 MG TABLET PO SCH (20:29)
[2018-11-25] MEDS: ASPIRIN 81 MG ECTAB PO SCH (20:29)
[2018-11-25] MEDS: MONTELUKAST SODIUM 10 MG TABLET PO SCH (20:30)
[2018-11-25] MEDS: TRAZODONE HCL 50 MG TAB PO SCH (20:31)
--- NOTE | 2018-11-25 20:46 | History & Physical Report ---
Date of Service November 25, 2018 Assessment & Plan (1) COPD exacerbation: admit to telemetry, IV methylprednisone taper, Duonebs, inhaler, symbicort and ventolin PRN (2) Dehydration: gentle IV fluid hydration (3) Atrial fibrillation: resume Eliquis and digoxin and diltiazem Present on Admission?: Yes (4) Hypoxia: oxygen supplement to keep Pulse Ox> 90% (5) Hypomagnesemia: repleted with IV magnesium (6) Depression: resume lamictal and lexapro (7) Lumbar stenosis with neurogenic claudication: pain control with voltaren and acetaminophen and gabapentin History of Present Illness Chief Complaint: COPD exacerbation Primary Care Provider: Faiza Costa MD Patient is a 78-year-old female with past medical history significant for atrial fibrillation anticoagulation therapy with Eliquis, lumbar stenosis, asthma and COPD who was brought to the ED via EMS with complaints of shortness of breath dyspnea on exertion and nonproductive cough worsening over the last several days. She was given DuoNeb in the field prior to ED arrival with minimal relief. Patient admits to using her rescue inhaler several times over the last few days without much relief. Admits shortness of breath is worse with exertion better at rest. Upon arrival to the ED patient was noted to be dyspneic and short of breath with oxygen saturation of 88% on room air. She denies any fever, chills, nausea, vomiting, headache dizziness or lightheadedness. Lab work showed a white count of 8.1 with a hemoglobin of 14.8 sodium 144 potassium 3.6 creatinine 0.81 chest x-ray - no acute process, resolution of previously noted right upper lobe airspace opacity with near complete resolution of the left lung base opacity suspected postinflammatory scarring. She was given IV methylprednisolone 125 mg,Magnesium sulfate 1 g, doxycycline 100 mg IV, albuterol DuoNeb and sodium chloride 500 cc bolus. Allergies Allergy/AdvReac Type Severity Reaction Status Date / Time chocolate flavor Allergy Mild RASH Verified 07/01/18 23:26 fluticasone Allergy Unknown FROM Verified 07/01/18 23:26 ADVAIR, CHEST PAIN mivacurium Allergy Unknown THROAT Verified 07/01/18 23:26 BURNED-LOST WT Penicillins Allergy Unknown UNKNOWN-HAS Verified 07/01/18 23:26 TOLERATED ROCEPHIN IN PAST procaine Allergy Unknown ANAPHYLAXIS/MOUTH Verified 07/01/18 23:26 SWELLING/SOB salmeterol Allergy Unknown FROM Verified 07/01/18 23:26 ADVAIR, CHEST PAIN. moxifloxacin AdvReac Unknown NAUSEA & Verified 07/01/18 23:26 VOMITING NSAIDS (Non-Steroidal AdvReac Unknown AVOID DUE Verified 07/01/18 23:26 Anti-Inflamma TO ULCER HX zolpidem AdvReac Unknown SLEEP Verified 07/01/18 23:26 WALKING Home Medications Home Medications Medication Instructions Recorded Confirmed Type Eliquis 5 mg PO BID 04/24/18 11/25/18 History Symbicort 2 puff INHALATION BID PRN 04/24/18 11/25/18 History albuterol sulfate [Ventolin HFA] 2 puff INHALATION Q4 PRN 04/24/18 11/25/18 History aspirin 81 mg PO HS 04/24/18 11/25/18 History calcium carbonate-vitamin D3 1 tab PO BID 04/24/18 11/25/18 History [Calcium 600 + D(3)] diclofenac sodium [Voltaren] 1 applic TOPICAL QID PRN 04/24/18 11/25/18 History escitalopram oxalate [Lexapro] 20 mg PO QAM 04/24/18 11/25/18 History lamotrigine [Lamictal] 150 mg PO HS 04/24/18 11/25/18 History montelukast 10 mg PO PM 04/24/18 11/25/18 History multivitamin 1 tab PO QAM 04/24/18 11/25/18 History pantoprazole [Protonix] 40 mg PO QAM 04/24/18 11/25/18 History pramipexole [Mirapex] 0.5 mg PO HS 04/24/18 11/25/18 History trazodone 225 mg PO HS 04/24/18 11/25/18 History Metamucil 1 tbsp PO PM 07/01/18 11/25/18 History travoprost 1 drp OPL QAM 07/01/18 11/25/18 History clonazepam 0.5 mg PO HS #30 tab 07/09/18 11/25/18 Rx diltiazem HCl [Tiazac] 360 mg PO QAM #60 cap 07/09/18 11/25/18 Rx atorvastatin 40 mg tablet 40 mg PO HS #90 tab 11/11/18 11/25/18 Rx gabapentin 400 mg capsule 400 mg PO TID cap 11/16/18 11/25/18 History atomoxetine [Strattera] 0 mg PO QAM 11/25/18 11/25/18 History colestipol [Colestid] 1 g PO PM 11/25/18 11/25/18 History digoxin 0.125 mg PO QAM 11/25/18 11/25/18 History Past Med/Surg History Medical History Arthroplasty of knee (Resolved 02/25/13) Nausea vomiting and diarrhea (Acute) Atrial fibrillation with rapid ventricular response (Acute) Dehydration (Acute) UGI bleed (Acute 04/12/14) Lumbar stenosis with neurogenic claudication (Acute) Accidental fall (Acute) Right buttock pain (Acute) Asthma (Acute) COPD exacerbation Right knee DJD Atrial fibrillation Pneumonia Surgical History Post-operative state Family History Other No significant family history Social History Preferred Language: [place] Communication Ability: Effective Entry Level Financial Analyst Required: No Beliefs That Will Affect Care: None Current Living Situation: Alone Current Living Situation Comment: own apartment in shelter facility Feels Safe at Home: Yes Safety Concerns: Feels Safe At This Time Smoking Status: Former smoker Do You Dip or Chew Tobacco: No Smoking End Date: Jun 2018 Hx Alcohol Use: No Hx Substance Use: No Review of Systems Constitutional: no fever, no sweats, no fatigue and no malaise Eyes: no diplopia and no eye pain Ear, Nose, Mouth, Throat: no ear pain, no facial pain and no sinus pain/pressure Respiratory: + cough, + dyspnea and + dyspnea on exertion Cardiovascular: no chest pain, no chest pain at rest, no chest pain with activity, no orthopnea and no palpitations Gastrointestinal: no abdominal pain, no nausea and no vomiting Musculoskeletal: + body aches Neurologic: no localized weakness Physical Exam Constitutional: WD/WN, vitals as above Eyes: PERRL, conjunctivae normal, anicteric sclerae ENMT: external ear and nose normal, oropharynx normal Neck: trachea midline, no thyromegaly Respiratory: + cough, + prolonged expiratory phase, + audible wheezes and symmetric chest movement Auscultation: + bronchial breath sounds Cardiovascular: RRR, no murmur, no edema Gastrointestinal (Abdomen): normal bowel sounds, soft, nontender, no hepatosplenomegaly Musculoskeletal: no cyanosis or clubbing, extremities motor strength 5/5 Skin: no rashes, warm and dry Neurologic: PERRL, EOMI, accommodation nl, no face palsy, no dysarthria Psychiatric: A+Ox3, euthymic affect Genitourinary: no vaginal lesions, no adnexal mass Results & Data Vital Signs (Past 12 Hours) Vital Signs Temp Pulse Pulse Resp BP BP Pulse Ox 11/25/18 19:50 36.9 C 76 20 118/32 L 92 11/25/18 19:03 36.8 C 72 22 115/66 97 11/25/18 18:00 74 18 116/53 L 93 11/25/18 17:00 73 25 H 118/53 L 93 11/25/18 15:30 60 18 100/50 L 91 11/25/18 15:00 67 18 102/40 L 94 11/25/18 14:13 91 11/25/18 14:00 69 33 H 127/54 L 100 11/25/18 13:30 70 31 H 118/52 L 100 11/25/18 13:00 73 28 H 118/62 95 11/25/18 12:54 76 18 90 11/25/18 12:36 92 11/25/18 12:33 36.8 C 71 30 H 138/58 L 87 L Laboratory Results 11/25/18 12:33 11/25/18 12:33 Diagnostic Findings XR chest 1V portable HISTORY: 78 years-old Female Chest Pain acute atypical chest pain COMPARISON: Chest radiograph 07/01/2018 TECHNIQUE: Portable AP view of the chest FINDINGS: Cardiac mediastinal and hilar silhouettes are within normal limits. Calcification of the thoracic aortic arch. Resolution of the previously described right upper lobe airspace opacities with near complete resolution of the left lung base airspace opacities. Mild interstitial coarsening appears chronic. There is no pneumothorax, large pleural effusion or overt pulmonary edema. Degenerative changes of the shoulders and spine. IMPRESSION: 1. No acute process. 2. Resolution of the previously noted right upper lobe airspace opacities with near complete resolution of the left lung base opacities, likely reflective of postinflammatory scarring. PG Care Time/CCT Total # of Minutes Spent Total Time Spent with Patient: Total time spent is greater than 50% in coordination of care (as documented) at patient's floor/unit and/or counseling patient:
[2018-11-25] MEDS: ALBUT/IPRATROP 3MG/0.5MG NEB 3 ML VIAL NEB SCH (20:51)
[2018-11-25] MEDS ORDERED: HEPARIN SOD 5,000 UNIT/0.5 ML VIAL SQ SCH (21:00)
[2018-11-26] MEDS: methylPREDNISolone 40 MG in SYRINGE 0 ML IV SCH ×2 (03:59→20:18)
[2018-11-26 04:17] LABS: Appearance Urine Clear (Clear); Bilirubin Urine Negative (Negative); Blood Urine Negative (Negative); Color Urine Yellow; Glucose Urine UA Negative (Negative); Ketones Urine Trace (Negative); Leukocyte Esterase Urine Negative (Negative); Nitrite Urine Negative (Negative); Protein Urine Negative (Negative); Specific Gravity Urine 1.019 (1.000-1.030); Urobilinogen Urine Negative (Negative)
[2018-11-26] MEDS: ALBUT/IPRATROP 3MG/0.5MG NEB 3 ML VIAL NEB SCH ×5 (04:47→19:03)
[2018-11-26 07:07] LABS: Creatinine Clr Calc Pharmacy 45.4 ml/min; Est GFR (African American) 59.2; Est GFR (Non-African American) 51.1; Potassium 3.5 mmol/L (3.5-5.1)
[2018-11-26 07:08] LABS: Albumin Level 3.4 gm/dl (3.4-5.0); BUN Creatinine Ratio 17.6 (10-20); Calcium 9.9 mg/dl (8.5-10.1)
[2018-11-26 07:10] LABS: Albumin Globulin Ratio 1.1 (0.9-2); Bilirubin,Total 0.3 mg/dl (0.2-1); Globulin 3.2 gm/dl (2.5-4.0); Total Protein 6.6 gm/dl (6.4-8.2)
[2018-11-26] MEDS: GABAPENTIN 400 MG CAP PO SCH ×3 (08:14→20:12)
[2018-11-26] MEDS: dilTIAZem ER 180 MG CAPCR PO SCH (08:14)
[2018-11-26] MEDS: MULTIVITAMIN TAB PO SCH (08:14)
[2018-11-26] MEDS: CALCIUM 600MG + VIT D 400 IU TAB PO SCH ×2 (08:14→20:16)
[2018-11-26] MEDS: ESCITALOPRAM OXALATE 20 MG TAB PO SCH (08:14)
[2018-11-26] MEDS: PANTOprazole 40 MG TAB PO SCH (08:14)
[2018-11-26] MEDS: TRAVOPROST Z 0.004% OPH SOLN 2.5 ML BTL OPL SCH (08:14)
[2018-11-26] MEDS: APIXABAN 5 MG TABLET PO SCH ×2 (08:14→20:16)
[2018-11-26] MEDS: PSYLLIUM 58.6% POWDER PACKET PO SCH (10:18)
[2018-11-26] MEDS: GUAIFENESIN/CODEINE 200MG/20MG 10ML UDC PO PRN ×2 (10:24→18:10)
--- NOTE | 2018-11-26 13:46 | Hospitalist Progress Note ---
Date of Service November 26, 2018 Assessment & Plan (1) COPD exacerbation: improved today will taper Solu Medrol to 40 q12 from q8 no role for antibiotics as there is no signs of purulence will add Mucinex and Robitussin continue nebulizers keep on tele due to h/o going into RVR when on steroids and in COPD exacerbation (2) Dehydration: resolved with IV fluids will stop, eating and drinking well Cr is normal, electrolytes normal (3) Atrial fibrillation: resume Eliquis and digoxin and diltiazem rates controlled currently keep on tele for today as she has a h/o going into RVR when sick (4) Hypoxia: oxygen supplement to keep Pulse Ox> 90% currently 94% on 2L, try to wean off, does not wear at home (5) Hypomagnesemia: repleted with IV magnesium resolved (6) Depression: resume lamictal and lexapro (7) Lumbar stenosis with neurogenic claudication: pain control with voltaren and acetaminophen and gabapentin (8) CKD (chronic kidney disease) stage 3, GFR 30-59 ml/min: Cr is stable at 1.0, electrolytes stable Subjective patient feeling better, less wheezing, less dyspnea still coughing a lot, dry cough, difficulty sleeping eating better today no chest pain reviewed labs, BMP is normal sugars a little high at 237 on steroids Review of Systems Review of Systems: All systems reviewed & are unremarkable except as noted in HPI & below Respiratory: + cough, + chest congestion and + dyspnea on exertion; no dyspnea, no pain with cough and no sputum production Physical Exam Constitutional: WD/WN, vitals as above Eyes: PERRL, conjunctivae normal, anicteric sclerae ENMT: external ear and nose normal, oropharynx normal Neck: trachea midline, no thyromegaly Respiratory: normal respiratory effort; no respiratory distress Auscultation: + diminished lung sounds and + wheezes (anteriorly, bilateral); no crackles, no rales and no rhonchi Cardiovascular: RRR, no murmur, no edema Gastrointestinal (Abdomen): normal bowel sounds, soft, nontender, no hepatosplenomegaly Musculoskeletal: no cyanosis or clubbing, extremities motor strength 5/5 Skin: no rashes, warm and dry Neurologic: patellar DTR's 2+ bilat, sensation intact and PERRL, EOMI, accommodation nl, no face palsy, no dysarthria Psychiatric: A+Ox3, euthymic affect Lymphatic: no cervical or axillary lymphadenopathy Results & Data Vital Signs (Past 12 Hours) Vital Signs Temp Pulse Pulse Pulse Resp BP Pulse Ox 11/26/18 11:34 36.9 C 88 24 134/55 L 94 11/26/18 11:04 78 18 98 11/26/18 08:20 89 11/26/18 08:06 85 22 110/45 L 95 11/26/18 07:19 36.9 C 96 H 19 95/46 L 93 11/26/18 06:59 82 18 90 11/26/18 04:49 70 20 91 11/26/18 04:02 36.6 C 84 20 122/51 L 92 Laboratory Results Laboratory Results - last 24 hr 11/25/18 11/26/18 11/26/18 14:27 06:20 Unknown VBG pH 7.35 L VBG pCO2 61 H VBG pO2 37 VBG HCO3 32 VBG O2 Saturation 68.8 VBG Base Excess 4.9 Barometric Pressure 732.1 Sodium 140 Potassium 3.5 Chloride 103 Carbon Dioxide 30 Anion Gap 7.0 BUN 18 Creatinine 1.04 Est Cr Clr Drug Dosing 45.4 Est GFR ( Amer) 59.2 Est GFR (Non-Af Amer) 51.1 BUN/Creatinine Ratio 17.6 Glucose 237 H Calcium 9.9 Total Bilirubin 0.3 AST 14 L ALT 21 Alkaline Phosphatase 108 Total Protein 6.6 Albumin 3.4 Globulin 3.2 Albumin/Globulin Ratio 1.1 Urine Color Yellow Urine Appearance Clear Urine pH 5.0 Ur Specific [place] 1.019 Urine Protein Negative Urine Glucose (UA) Negative Urine Ketones Trace H Urine Blood Negative Urine Nitrite Negative Urine Bilirubin Negative Urine Urobilinogen Negative Ur Leukocyte Esterase Negative Medications Administered Current Inpatient Medications Acetaminophen (Tylenol) 650 mg PO Q4H PRN PRN Reason: Pain or Fever Stop: 12/25/18 19:07 Al Hydrox/Mg Hydrox/Simethicone (Maalox) 15 ml PO Q4H PRN PRN Reason: Dyspepsia Stop: 12/25/18 19:07 Albuterol (Duoneb) 3 ml NEB QIDR KEESHA Stop: 12/25/18 19:59 Last Admin: 11/26/18 11:04 Dose: 3 ml Documented by: Albuterol (Ventolin Hfa) 2 puffs INH Q4 PRN PRN Reason: Shortness Of Breath Or Wheezin Stop: 12/25/18 19:07 Apixaban (Eliquis) 5 mg PO BID [facility] Stop: 12/25/18 20:59 Last Admin: 11/26/18 08:14 Dose: 5 mg Documented by: Aspirin (Ecotrin Ectab) 81 mg PO [facility] Stop: 12/25/18 20:59 Last Admin: 11/25/18 20:29 Dose: 81 mg Documented by: Atorvastatin Calcium (Lipitor) 40 mg PO [facility] Stop: 12/25/18 20:59 Last Admin: 11/25/18 20:27 Dose: 40 mg Documented by: Budesonide/Formoterol Fumarate (Symbicort 160mcg/4.5mcg) 2 puffs INH BID PRN PRN Reason: Shortness Of Breath Or Wheezin Stop: 12/25/18 19:07 Clonazepam (Klonopin) 0.5 mg PO [facility] Stop: 12/25/18 20:59 Last Admin: 11/25/18 20:27 Dose: 0.5 mg Documented by: Colestipol HCl (Colestid) 1 gm PO DAILY@2200 [facility] Stop: 12/25/18 21:59 Last Admin: 11/25/18 20:28 Dose: 1 gm Documented by: Digoxin (Lanoxin) 0.125 mg PO DAILY@1600 [facility] Stop: 12/25/18 15:59 Last Admin: 11/25/18 20:27 Dose: Not Given Documented by: Diltiazem HCl (Tiazac) 360 mg PO QAM [facility] Stop: 12/26/18 08:59 Last Admin: 11/26/18 08:14 Dose: 360 mg Documented by: Escitalopram Oxalate (Lexapro Tab) 20 mg PO QAM [facility] Stop: 12/26/18 08:59 Last Admin: 11/26/18 08:14 Dose: 20 mg Documented by: Gabapentin (Neurontin) 400 mg PO TID [facility] Stop: 12/25/18 20:59 Last Admin: 11/26/18 08:14 Dose: 400 mg Documented by: Guaifenesin (Mucinex) 600 mg PO Q12 [facility] Stop: 12/26/18 20:59 Guaifenesin/Codeine Phosphate (Robitussin-Ac Sugar Free) 10 ml PO Q6H PRN PRN Reason: Cough Stop: 12/26/18 09:33 Last Admin: 11/26/18 10:24 Dose: 10 ml Documented by: Methylprednisolone 40 mg/ (Syringe) 0.64 mls @ 1.5 mls/min IV Q12 [facility] Stop: 12/26/18 20:59 Lamotrigine (Lamictal) 150 mg PO HS [facility] Stop: 12/25/18 20:59 Last Admin: 11/25/18 20:29 Dose: 150 mg Documented by: Montelukast Sodium (Singulair) 10 mg PO PM [facility] Stop: 12/25/18 20:59 Last Admin: 11/25/18 20:30 Dose: 10 mg Documented by: Multivitamins (Multivitamin Tab) 1 tab PO QAM [facility] Stop: 12/26/18 08:59 Last Admin: 11/26/18 08:14 Dose: 1 tab Documented by: Multivitamins/Minerals (Caltrate Plus) 1 tab PO BID [facility] Stop: 12/25/18 20:59 Last Admin: 11/26/18 08:14 Dose: 1 tab Documented by: Nitroglycerin (Nitrostat) 0.4 mg SL UD PRN PRN Reason: Chest Pain Stop: 12/25/18 19:07 Ondansetron HCl (Zofran) 4 mg IV Q6H PRN PRN Reason: Nausea Stop: 12/25/18 19:07 Pantoprazole [facility]ix) [facility] Stop: 12/26/18 08:59 Last Admin: 11/26/18 08:14 Dose: 40 mg Documented by: Polyethylene Glycol (Miralax Powder Packet) 17 gm PO DAILY PRN PRN Reason: Constipation Stop: 12/25/18 19:07 Pramipexole Dihydrochloride (Mirapex) 0.5 mg PO [facility] Stop: 12/25/18 20:59 Last Admin: 11/25/18 20:28 Dose: 0.5 mg Documented by: Psyllium Hydrophilic Mucilloid (Metamucil) 1 pkt PO QAM [facility] Stop: 12/26/18 09:44 Last Admin: 11/26/18 10:18 Dose: 1 pkt Documented by: Trazodone HCl (Desyrel) 225 mg PO HS [facility]ES[facility] Stop: 12/25/18 20:59 Last Admin: 11/25/18 20:31 Dose: 225 mg Documented by: PG Care Time/CCT Total # of Minutes Spent Total Time Spent with Patient: Total time spent is greater than 50% in coordination of care (as documented) at patient's floor/unit and/or counseling patient:
[2018-11-26] MEDS: ACETAMINOPHEN 325 MG TAB PO PRN (14:50)
[2018-11-26] MEDS ORDERED: TRAMADOL HCL 50 MG TABLET PO PRN (15:16)
[2018-11-26] MEDS: DIGOXIN 0.125 MG TAB PO SCH (17:14)
[2018-11-26] MEDS: lamoTRIgine 100 MG TAB PO SCH (20:12)
[2018-11-26] MEDS: PRAMIPEXOLE DIHYDROCHLO 0.5 MG TAB PO SCH (20:12)
[2018-11-26] MEDS: TRAZODONE HCL 50 MG TAB PO SCH (20:13)
[2018-11-26] MEDS: ASPIRIN 81 MG ECTAB PO SCH (20:16)
[2018-11-26] MEDS: MONTELUKAST SODIUM 10 MG TABLET PO SCH (20:16)
[2018-11-26] MEDS: ATORVASTATIN 40 MG TAB PO SCH (20:16)
[2018-11-26] MEDS: guaiFENesin 600 MG TABCR PO SCH (20:16)
[2018-11-26] MEDS: clonazePAM 1 MG TAB PO SCH (20:21)
[2018-11-26] MEDS: COLESTIPOL HCL 1 GM TAB PO SCH (21:32)
[2018-11-27] MEDS: ACETAMINOPHEN 325 MG TAB PO PRN (02:23)
[2018-11-27 06:52] LABS: BUN Creatinine Ratio 29.3 (10-20); Calcium 9.8 mg/dl (8.5-10.1); Creatinine Clr Calc Pharmacy 56.8 ml/min; Est GFR (African American) 77.7; Est GFR (Non-African American) 67.1
[2018-11-27] MEDS: ALBUT/IPRATROP 3MG/0.5MG NEB 3 ML VIAL NEB SCH ×2 (06:57→11:06)
[2018-11-27] MEDS: CALCIUM 600MG + VIT D 400 IU TAB PO SCH (07:39)
[2018-11-27] MEDS: GUAIFENESIN/CODEINE 200MG/20MG 10ML UDC PO PRN (07:39)
[2018-11-27] MEDS: APIXABAN 5 MG TABLET PO SCH (07:39)
[2018-11-27] MEDS: PANTOprazole 40 MG TAB PO SCH (07:40)
[2018-11-27] MEDS: ESCITALOPRAM OXALATE 20 MG TAB PO SCH (07:40)
[2018-11-27] MEDS: GABAPENTIN 400 MG CAP PO SCH (07:40)
[2018-11-27] MEDS: MULTIVITAMIN TAB PO SCH (07:40)
[2018-11-27] MEDS: dilTIAZem ER 180 MG CAPCR PO SCH (07:40)
[2018-11-27] MEDS: TRAVOPROST Z 0.004% OPH SOLN 2.5 ML BTL OPL SCH (07:41)
[2018-11-27] MEDS: PSYLLIUM 58.6% POWDER PACKET PO SCH (07:42)
[2018-11-27] MEDS: methylPREDNISolone 40 MG in SYRINGE 0 ML IV SCH (07:42)
[2018-11-27] MEDS: guaiFENesin 600 MG TABCR PO SCH (09:39)
--- NOTE | 2018-11-27 13:28 | Discharge Summary ---
Date of Service November 27, 2018 Admission HPI Per Admitting Provider Patient is a 78-year-old female with past medical history significant for atrial fibrillation anticoagulation therapy with Eliquis, lumbar stenosis, asthma and COPD who was brought to the ED via EMS with complaints of shortness of breath dyspnea on exertion and nonproductive cough worsening over the last several days. She was given DuoNeb in the field prior to ED arrival with minimal relief. Patient admits to using her rescue inhaler several times over the last few days without much relief. Admits shortness of breath is worse with exertion better at rest. Upon arrival to the ED patient was noted to be dyspneic and short of breath with oxygen saturation of 88% on room air. She denies any fever, chills, nausea, vomiting, headache dizziness or lightheadedness. Lab work showed a white count of 8.1 with a hemoglobin of 14.8 sodium 144 potassium 3.6 creatinine 0.81 chest x-ray - no acute process, resolution of previously noted right upper lobe airspace opacity with near complete resolution of the left lung base opacity suspected postinflammatory scarring. She was given IV methylprednisolone 125 mg,Magnesium sulfate 1 g, doxycycline 100 mg IV, albuterol DuoNeb and sodium chloride 500 cc bolus. Principal Diagnosis COPD exacerbation Discharge Exam Constitutional WD/WN, vitals as above Eyes PERRL, conjunctivae normal, anicteric sclerae ENMT external ear and nose normal, oropharynx normal Neck trachea midline, no thyromegaly Respiratory normal respiratory effort; no respiratory distress Auscultation: + diminished lung sounds; no crackles, no rales, no rhonchi and no wheezes Cardiovascular RRR, no murmur, no edema Gastrointestinal (Abdomen) normal bowel sounds, soft, nontender, no hepatosplenomegaly Musculoskeletal no cyanosis or clubbing, extremities motor strength 5/5 Skin no rashes, warm and dry Neurologic patellar DTR's 2+ bilat, sensation intact and PERRL, EOMI, accommodation nl, no face palsy, no dysarthria Psychiatric A+Ox3, euthymic affect Lymphatic no cervical or axillary lymphadenopathy Discharge Data Allergies Allergy/AdvReac Type Severity Reaction Status Date / Time chocolate flavor Allergy Mild RASH Verified 07/01/18 23:26 fluticasone Allergy Unknown FROM Verified 07/01/18 23:26 ADVAIR, CHEST PAIN mivacurium Allergy Unknown THROAT Verified 07/01/18 23:26 BURNED-LOST WT Penicillins Allergy Unknown UNKNOWN-HAS Verified 07/01/18 23:26 TOLERATED ROCEPHIN IN PAST procaine Allergy Unknown ANAPHYLAXIS/MOUTH Verified 07/01/18 23:26 SWELLING/SOB salmeterol Allergy Unknown FROM Verified 07/01/18 23:26 ADVAIR, CHEST PAIN. moxifloxacin AdvReac Unknown NAUSEA & Verified 07/01/18 23:26 VOMITING NSAIDS (Non-Steroidal AdvReac Unknown AVOID DUE Verified 07/01/18 23:26 Anti-Inflamma TO ULCER HX zolpidem AdvReac Unknown SLEEP Verified 07/01/18 23:26 WALKING Consultations 11/25/18 14:52 ED Decision to Admit Stat Hospital Course (1) COPD exacerbation: improved greatly today treated with Solu Medrol 40 q12 will start on Prednisone tomorrow, 40mg daily, taper by 10mg every 3 days until complete no role for antibiotics as there is no signs of purulence, CXR without infiltrate prescribed Duoneb to use at home every 6 hours as needed she already has a nebulizer, just needed the medication has a harsh cough intermittently prescribed Codeine-guaifenesine 10mL to use every 6 hours as needed, help her sleep 2 step test with respiratory showed no need for home oxygen (2) Dehydration: resolved with IV fluids will stop, eating and drinking well Cr is normal, electrolytes normal (3) Atrial fibrillation: continue Eliquis and digoxin and diltiazem rates controlled currently no RVR while on monitor (4) Hypoxia: oxygen supplement to keep Pulse Ox> 90% two step today showed no need for home oxygen (5) Hypomagnesemia: repleted with IV magnesium resolved (6) Depression: resume lamictal and lexapro (7) Lumbar stenosis with neurogenic claudication: pain control with voltaren and acetaminophen and gabapentin plans to get MRI lumbar spine in two weeks (8) CKD (chronic kidney disease) stage 3, GFR 30-59 ml/min: Cr is stable at 1.0, electrolytes stable Total Time Total Time Spent Total Time Spent (In Minutes): 32 minutes Total Time Includes: Examination of the Patient, Discharge Planning and Medication Reconciliation Discharge Plan Discharge Items Patient Disposition: Home - Self-Care Reason For Visit: COPD EXACERBATION Discharge Diagnosis: COPD exacerbation Condition: Good Discharge Goals: Improve disease control and Improve function Activity: Resume your previous activity Non-emergency contact: Primary Care Provider Call non-emergency contact if: you have any medication questions, your symptoms worsen and you have a fever Follow-up/Referrals: Faiza Costa MD [Primary Care Provider] - 12/07/18 11:45 am (Please, follow up with Dr. Costa on FridayDecember 07 at 11:45 am. *If you need to change this appointment, call the office at [phone].) Diet: Heart Healthy Addtl Provider Instructions: Medications: - PREDNISONE: take as directed, start tomorrow morning, take 40mg (4 tablets) daily x 3 days, 30mg x 3 days, 20mg x 3 days, 10mg x 3 days then stop - DUONEB: nebulizer treatment to use with nebulizer, use every 6 hours as needed for shortness of breath, wheezing, cough - ULTRAM: use as needed for pain - CODEINE-GUAIFENESIN: take 10mL as needed for cough, take every 6 hours COPD exacerbation improving with steroids and nebulizers transition to Prednisone 40mg daily and then taper over next 12 days use Robitussin with codeine as needed for cough no need for antibiotics as there was no evidence of pneumonia on chest x-ray, cough is dry Atrial fibrillation: rates are controlled, continue on Eliquis and Diltiazem Low back pain: use Ultram as needed for pain would wait to get MRI until the week after next, week starting 12/07/18 FOLLOW UP - Dr. Costa later next week, call for appt Prescriptions: New ipratropium-albuterol 0.5 mg-3 mg(2.5 mg base)/3 mL Solution For Nebulization 3 ml NEB Q6H PRN (Reason: shortness of breath or wheezing) Qty: 90 RF: 1 tramadol 50 mg Tablet 50 mg PO Q4H PRN (Reason: pain) 10 Days Qty: 60 RF: 0 prednisone 10 mg tablet 10 mg PO UD 12 Days Qty: 30 RF: 0 codeine-guaifenesin 10-100 mg/5 mL liquid 10 ml PO Q6H PRN (Reason: cough) Qty: 120 RF: 0 Continued atorvastatin 40 mg tablet 40 mg PO HS Qty: 90 RF: 3 gabapentin 400 mg capsule 400 mg PO TID RF: 0 cyanocobalamin (vitamin B-12) 2,500 mcg tablet PO RF: 0 potassium chloride 10 mEq tablet extended release PO .TAKE 1 TABLET TWICE Qty: 28 RF: 0 aspirin 81 mg Tablet,Delayed Release (Dr/Ec) 81 mg PO HS RF: 0 calcium carbonate-vitamin D3 [Calcium 600 + D(3)] 600 mg(1,500mg) -400 unit Tablet 1 tab PO BID RF: 0 diclofenac sodium [Voltaren] 1 % gel 1 applic Topical QID PRN (Reason: Pain) RF: 0 Eliquis 5 mg tablet 5 mg PO BID RF: 0 multivitamin Tablet 1 tab PO QAM RF: 0 lamotrigine [Lamictal] 150 mg tablet 150 mg PO HS RF: 0 pramipexole [Mirapex] 0.5 mg tablet 0.5 mg PO HS RF: 0 pantoprazole [Protonix] 40 mg tablet,delayed release (DR/EC) 40 mg PO QAM RF: 0 trazodone 150 mg tablet 225 mg PO HS RF: 0 montelukast 10 mg Tablet 10 mg PO PM RF: 0 albuterol sulfate [Ventolin HFA] 90 mcg/actuation HFA aerosol inhaler 2 puff Inhalation Q4 PRN (Reason: Shortness Of Breath Or Wheezing) RF: 0 escitalopram oxalate [Lexapro] 20 mg tablet 20 mg PO QAM RF: 0 Symbicort 160-4.5 mcg/actuation HFA aerosol inhaler 2 puff Inhalation BID PRN (Reason: Shortness Of Breath Or Wheezing) RF: 0 travoprost 0.004 % drops 1 drp OPL QAM RF: 0 Metamucil 3.4 gram/5.4 gram Powder 1 tbsp PO PM RF: 0 diltiazem HCl [Tiazac] 180 mg Capsule,Extended Release 24 Hr 360 mg PO QAM Qty: 60 RF: 0 clonazepam 1 mg Tablet 0.5 mg PO HS Qty: 30 RF: 0 atomoxetine [Strattera] 40 mg Capsule PO QAM RF: 0 digoxin 125 mcg tablet 0.125 mg PO QAM RF: 0 colestipol [Colestid] 1 gram tablet 1 g PO PM RF: 0 Stand-Alone Forms: My [facility]/Other Patient Handouts: COPD, Hypomagnesemia Dc Discharge Orders: Discharge Order (Routine); Ordered 11/27/18 Ordered By: Aaron Best Admission Data Admit Date/Time: 11/25/18 17:27 Attending Provider: Aaron Best Admit Provider: Gem Suárez Primary Care Provider: Faiza Costa Other Providers: Gem Suárez Service: Telemetry Other Interventions: Discharge Summary Assessment (RN) Last Done: 11/27/18 10:58 DC Date/Time DO NOT enter until pt leaves facility: 11/27/18 12:38
== END 2018-11-27 12:38 | disposition home health service (06) | DRG 192 ==
LOC: EDBD → ED 12:15 → EDUNIT# 12:15 → SUATTDRO 17:27 → 2E 17:27

== ENCOUNTER 2019-01-13 10:47 | Inpatient (IN) ==
--- NOTE | 2019-01-05 15:13 | PAT Medication Instructions ---
Medication Instructions Date of Service January 05, 2019 Home Medications Medication Instructions Recorded atorvastatin 40 mg tablet 40 mg PO HS #90 tab 11/11/18 ipratropium-albuterol 3 ml NEB Q6H PRN #90 ml 11/27/18 Eliquis 5 mg PO BID Symbicort 2 puff INHALATION BID PRN albuterol sulfate [Ventolin HFA] 2 puff INHALATION Q4 PRN aspirin 81 mg PO HS calcium carbonate-vitamin D3 [Calcium 600 + D(3)] 1 tab PO BID diclofenac sodium [Voltaren] 1 applic TOPICAL QID PRN escitalopram oxalate [Lexapro] 20 mg PO QAM lamotrigine [Lamictal] 150 mg PO HS montelukast 10 mg PO HS multivitamin 1 tab PO QAM pantoprazole [Protonix] 40 mg PO QAM pramipexole [Mirapex] 0.5 mg PO HS trazodone 225 mg PO HS Metamucil 1 tbsp PO PM travoprost 1 drp OPL QAM atorvastatin 40 mg tablet 40 mg PO HS gabapentin 400 mg capsule 400 mg PO TID digoxin 0.125 mg PO QAM ipratropium-albuterol 3 ml NEB Q6H PRN bupropion HCl XL 150 mg 24 hr tablet, extended release 150 mg PO QAM cholecalciferol (vitamin D3) 2,000 unit tablet 2,000 units PO DAILY cyanocobalamin (vitamin B-12) 2,500 mcg tablet 2,500 mcg PO DAILY lorazepam 0.5 mg tablet 0.5 mg PO Q6H PRN tramadol 50 mg tablet 50 mg PO QID PRN vitamin E 200 unit capsule 200 units PO DAILY zinc gluconate 50 mg tablet 50 mg PO DAILY clonazepam 1 mg PO HS diltiazem HCl [DILT-XR] 240 mg PO QAM escitalopram oxalate [Lexapro] 5 mg PO QAM ASK your prescriber and surgeon Eliquis 5 mg PO BID STOP taking 24 hours before surgery diclofenac sodium [Voltaren] 1 applic TOPICAL QID PRN DO NOT take the morning of surgery calcium carbonate-vitamin D3 [Calcium 600 + D(3)] 1 tab PO BID multivitamin 1 tab PO QAM cholecalciferol (vitamin D3) 2,000 unit tablet 2,000 units PO DAILY cyanocobalamin (vitamin B-12) 2,500 mcg tablet 2,500 mcg PO DAILY zinc gluconate 50 mg tablet 50 mg PO DAILY Take morning of surgery With a small sip of water, OTHERWISE NOTHING TO EAT OR DRINK AFTER MIDNIGHT: Symbicort 2 puff INHALATION BID PRN (if needed) albuterol sulfate [Ventolin HFA] 2 puff INHALATION Q4 PRN (use if needed; please bring with you to hospital day of surgery if possible) escitalopram oxalate [Lexapro] 20 mg PO QAM pantoprazole [Protonix] 40 mg PO QAM travoprost 1 drp OPL QAM gabapentin 400 mg capsule 400 mg PO TID digoxin 0.125 mg PO QAM ipratropium-albuterol 3 ml NEB Q6H PRN (if needed) bupropion HCl XL 150 mg 24 hr tablet, extended release 150 mg PO QAM lorazepam 0.5 mg tablet 0.5 mg PO Q6H PRN (if needed) tramadol 50 mg tablet 50 mg PO QID PRN (okay to take up to 4 hours prior to surgery if needed) diltiazem HCl [DILT-XR] 240 mg PO QAM escitalopram oxalate [Lexapro] 5 mg PO QAM Take evening before surgery Symbicort 2 puff INHALATION BID PRN (if needed) albuterol sulfate [Ventolin HFA] 2 puff INHALATION Q4 PRN (if needed) aspirin 81 mg PO HS calcium carbonate-vitamin D3 [Calcium 600 + D(3)] 1 tab PO BID lamotrigine [Lamictal] 150 mg PO HS montelukast 10 mg PO HS pramipexole [Mirapex] 0.5 mg PO HS trazodone 225 mg PO HS Metamucil 1 tbsp PO PM atorvastatin 40 mg tablet 40 mg PO HS gabapentin 400 mg capsule 400 mg PO TID ipratropium-albuterol 3 ml NEB Q6H PRN (if needed) lorazepam 0.5 mg tablet 0.5 mg PO Q6H PRN (if needed) tramadol 50 mg tablet 50 mg PO QID PRN (if needed) clonazepam 1 mg PO HS Other Notes If you have any questions please call us at [phone] or [phone] or [phone] or [phone]
--- NOTE | 2019-01-06 14:37 | Anesthesiology Consultation ---
Date of Service January 06, 2019 Assessment & Plan (1) Encounter for pre-operative examination: Chart Review Chart Review: Acceptable Risk for Surgery ([place] [place] and Patient seen in Pre Admission Testing Teaching & Discussion Pre-Anesthesia Teaching/Discussion Notes: Instructed NPO after midnight before surgery,except medications with 15 cc of water. Medication instructions provide d according to the PAT guidelines. History Surgery Operation Date: 01/13/19 12:25 Proposed Procedures p L3-L4 Decompression and Fusion, L4-L5 Hardware Removal with Spinal Cord Monitoring - Sanchez Lerma, Height/Weight Height: 5 ft 5 in Weight: 78.3 kg Allergies Allergy/AdvReac Type Severity Reaction Status Date / Time chocolate flavor Allergy Mild rash Verified 01/07/19 08:51 fluticasone Allergy Unknown chest pain Verified 01/07/19 08:51 (from Advair) mivacurium Allergy Unknown per Verified 01/07/19 08:51 records; patient denies Penicillins Allergy Unknown per Verified 01/07/19 08:51 allergy test (tolerated rocephin in the past) procaine Allergy Unknown novacaine Verified 01/07/19 08:51 - anaphylaxis, mouth swelling, dyspnea salmeterol Allergy Unknown chest pain Verified 01/07/19 08:51 (from Advair) moxifloxacin AdvReac Unknown N/V Verified 01/07/19 08:51 NSAIDS (Non-Steroidal AdvReac Unknown advised to Verified 01/07/19 08:51 Anti-Inflamma avoid d/t ulcer hx zolpidem AdvReac Unknown sleep Verified 01/07/19 08:51 walking Medications Home Medications Medication Instructions Recorded Confirmed Last Taken Eliquis 5 mg PO BID 04/24/18 01/05/19 11/25/18 Symbicort 2 puff INHALATION BID PRN 04/24/18 01/05/19 11/25/18 albuterol sulfate [Ventolin HFA] 2 puff INHALATION Q4 PRN 04/24/18 01/05/19 11/25/18 aspirin 81 mg PO HS 04/24/18 01/05/19 11/24/18 calcium carbonate-vitamin D3 1 tab PO BID 04/24/18 01/05/19 11/25/18 [Calcium 600 + D(3)] diclofenac sodium [Voltaren] 1 applic TOPICAL QID PRN 04/24/18 01/05/19 Unknown escitalopram oxalate [Lexapro] 20 mg PO QAM 04/24/18 01/05/19 11/25/18 lamotrigine [Lamictal] 150 mg PO HS 04/24/18 01/05/19 11/24/18 montelukast 10 mg PO HS 04/24/18 01/05/19 11/24/18 multivitamin 1 tab PO QAM 04/24/18 01/05/19 11/25/18 pantoprazole [Protonix] 40 mg PO QAM 04/24/18 01/05/19 11/25/18 pramipexole [Mirapex] 0.5 mg PO HS 04/24/18 01/05/19 11/24/18 trazodone 225 mg PO HS 04/24/18 01/05/19 11/24/18 Metamucil 1 tbsp PO PM 07/01/18 01/05/19 11/24/18 travoprost 1 drp OPL QAM 07/01/18 01/05/19 11/24/18 atorvastatin 40 mg tablet 40 mg PO HS #90 tab 11/11/18 01/05/19 11/24/18 gabapentin 400 mg capsule 400 mg PO TID cap 11/16/18 01/05/19 11/25/18 digoxin 0.125 mg PO QAM 11/25/18 01/05/19 11/25/18 ipratropium-albuterol 3 ml NEB Q6H PRN #90 ml 11/27/18 01/05/19 Unknown bupropion HCl XL 150 mg 24 hr 150 mg PO QAM 12/23/18 01/05/19 Unknown tablet, extended release cholecalciferol (vitamin D3) 2,000 2,000 units PO DAILY #30 tab 01/02/19 01/05/19 Unknown unit tablet cyanocobalamin (vitamin B-12) 2,500 mcg PO DAILY tab 01/02/19 01/05/19 Unknown 2,500 mcg tablet lorazepam 0.5 mg tablet 0.5 mg PO Q6H PRN tab 01/02/19 01/05/19 Unknown tramadol 50 mg tablet 50 mg PO QID PRN tab 01/02/19 01/05/19 Unknown vitamin E 200 unit capsule 200 units PO DAILY 01/02/19 01/05/19 Unknown zinc gluconate 50 mg tablet 50 mg PO DAILY tab 01/02/19 01/05/19 Unknown clonazepam 1 mg PO HS 01/05/19 01/05/19 Unknown diltiazem HCl [DILT-XR] 240 mg PO QAM 01/05/19 01/05/19 Unknown escitalopram oxalate [Lexapro] 5 mg PO QAM 01/05/19 01/05/19 Unknown Metamucil 1 tbsp PO HS 01/06/19 01/06/19 Unknown Past Medical History Medical History Right knee DJD UGI bleed (04/12/14) hx Lumbar stenosis with neurogenic claudication Asthma stable Atrial fibrillation paroxysmal ADHD Anemia Cancer skin cancer (forehead) Chronic obstructive pulmonary disease stable Depression Glaucoma left eye Hearing deficit b/l HERRERA History of blood transfusion years ago post-op Hyperlipidemia Incontinence of urine Osteoarthritis Peptic ulcer disease Exercise / Class Metabolic Activity III < 4 Walking/Shop/Light housework (uses walker/cane PRN) Past Family History Family History Father No problems noted. Brother Prostate cancer Mother Skin cancer Aunt Rheumatoid arthritis Unknown Cancer Hypertension Heart disease Coronary heart disease Prostate cancer Other No significant family history Past Surgical History Surgical History Fusion of spine lumbar H/O elbow surgery bilateral H/O thumb surgery right H/O toe surgery left foot History of appendectomy History of colonoscopy History of discectomy lumbar History of esophagogastroduodenoscopy (EGD) History of open reduction and internal fixation (ORIF) procedure right ankle History of surgical removal of skin lesion History of tonsillectomy History of total hip arthroplasty right hip History of total knee replacement bilateral; right TKA: 05/22/17: SAB x1 at L3-L4 + PNB at [facility] S/P AMANDA (total abdominal hysterectomy) S/P ankle arthrodesis right ankle S/P foot surgery, left removal of bone spur S/P hardware removal right ankle S/P laparotomy removed adhesions to relieve bowel strangulation Past Anesthesia History No Hx of Anesthesia Complications and No Family Hx of Anesthesia Complications History of PONV No Hx of PONV and No Hx of Motion Sickness Social History Smoking Status: Former smoker tobacco type: cigarettes Do You Dip or Chew Tobacco: No Smoking End Date: Quit 06/2018 Hx Alcohol Use: No Hx Substance Use: No substance use type: does not use Review of Systems Patient denies chest pain, shortness of breath, cough, wheezing, palpitations. Physical Exam Vital Signs VITALS BP 105/58 P 69 TEMP 98.8 SP02 93%RA RESP 20 PHYSICAL Full neck and c-spine range of motion. Pain with extension. Full TMJ range of motion. TMD 3 finger breaths Mallampati Score 2 Dentition: full dentures upper/lower; edentulous Lungs: clear throughout to auscultation Cardiac: regular rate and rhythm, no murmurs noted Spine: normal Carotid arteries: negative bruit Extremities: no edema Testing Laboratory Results APTT 26.8 Seconds (21.0-31.0) 01/06/19 14:50 Blood Type B Positive 01/06/19 14:50 Antibody Screen NEGATIVE 01/06/19 14:50 11/25/18 WBC 8.10 H/H 14.8/45.7 PLATELETS 209 SODIUM 140 POTASSIUM 4.1 CHLORIDE 105 CO2 31 BUN 21 CREATININE 0.73 GLUCOSE 97 PT 11.4 INR 1.1 11/26/18 UA negative Electrocardiogram Date: 11/25/18 SR with PAC's at 81bpm. NS ST/TWA. Chest X-Ray Date: 11/25/18 No acute process. Resolution of the previously noted right upper lobe airspace opacities with near complete resolution of the left lung base opacities, likely reflective of postinflammatory scarring. Echocardiogram Date: 08/19/15 EF 60-65%. No RWMA. Mild LAD. No significant valvular disease.
[2019-01-06 15:15] LABS: Partial Thromboplastin Time 26.8 Seconds (21.0-31.0)
[~2019-01-13 10:47] MED LIST changes: -ACET-24 PO; +ACETAMINOPHEN 500 MG TAB PO SCH; -ALBINS/ INH; -AMPH15CA7 PO; -AMPH30CA3 PO; -APIX1TAB3 PO; -ATOR-24 PO; -CALC-20 PO; +CEFAZOLIN 1000MG 1,000 MG/7.5 ML SYR IV SCH; -CHOL1TAB76 PO; +CLINDAMYCIN 600 MG/54 ML BAG IV SCH; -CLON1TAB3 PO; -CYAN250T PO; +CeleBREX 200 MG CAP PO SCH; -DILT-213 PO; -DSY/150 PO; -ESCI10TA17 PO; -GABA-1218 PO; +GABAPENTIN 300 MG CAP PO SCH; -LACTCAP3 PO; -LAMO150T PO; +LR 15ML/HR IV SCH; -MAGN1CAP2 PO; -MAGN200T3 PO; -MONT1TAB3 PO; -MULT1TAB22 PO; -OXYSR10 PO; -PRAM1TAB47 PO; -PRLSR20 PO; -RXC5 PO; -SYMIN160 INH; -VNTHFA/IN INH
[2019-01-13] MEDS ORDERED: fentaNYL citrate 100 MCG/2 ML VIAL ONE ×3 (11:28→13:47)
--- NOTE | 2019-01-13 11:37 | History & Physical Bridge Note ---
Date of Service January 13, 2019 History & Physical Bridge Note I have examined the patient, reviewed the History & Physical and in the interval since the performance of the History & Physical I have noted the following changes of clinical significance: no changes noted
--- NOTE | 2019-01-13 11:39 | History & Physical Report ---
Date of Service January 13, 2019 Assessment & Plan (1) Spinal stenosis, lumbar region with neurogenic claudication: L3-L4 decompression and fusion hardware removal L4-5 Present on Admission?: Yes History of Present Illness Chief Complaint: Back and leg pain Primary Care Provider: Faiza Costa MD This is a 78-year-old female well-known to me that presents with chronic persistent back and leg pain. After failing extensive course of nonoperative care is here for surgical intervention. Allergies Allergy/AdvReac Type Severity Reaction Status Date / Time procaine Allergy Severe novacaine Verified 01/13/19 11:14 - anaphylaxis, mouth swelling, dyspnea fluticasone Allergy Intermediate chest pain Verified 01/13/19 11:14 (from Advair) salmeterol Allergy Intermediate chest pain Verified 01/13/19 11:14 (from Advair) chocolate flavor Allergy Mild rash Verified 01/13/19 11:14 mivacurium Allergy Unknown per Verified 01/13/19 11:14 records; patient denies Penicillins Allergy Unknown per Verified 01/13/19 11:14 allergy test (tolerated rocephin in the past) zolpidem AdvReac Intermediate sleep Verified 01/13/19 11:14 walking moxifloxacin AdvReac Mild N/V Verified 01/13/19 11:14 NSAIDS (Non-Steroidal AdvReac Mild advised to Verified 01/13/19 11:14 Anti-Inflamma avoid d/t ulcer hx Home Medications Home Medications Medication Instructions Recorded Confirmed Type Eliquis 5 mg PO BID 04/24/18 01/13/19 History Symbicort 2 puff INHALATION BID PRN 04/24/18 01/13/19 History albuterol sulfate [Ventolin HFA] 2 puff INHALATION Q4 PRN 04/24/18 01/13/19 History aspirin 81 mg PO HS 04/24/18 01/13/19 History calcium carbonate-vitamin D3 1 tab PO BID 04/24/18 01/13/19 History [Calcium 600 + D(3)] diclofenac sodium [Voltaren] 1 applic TOPICAL QID PRN 04/24/18 01/13/19 History escitalopram oxalate [Lexapro] 20 mg PO QAM 04/24/18 01/13/19 History lamotrigine [Lamictal] 150 mg PO HS 04/24/18 01/13/19 History montelukast 10 mg PO HS 04/24/18 01/13/19 History multivitamin 1 tab PO QAM 04/24/18 01/13/19 History pantoprazole [Protonix] 40 mg PO QAM 04/24/18 01/13/19 History pramipexole [Mirapex] 0.5 mg PO HS 04/24/18 01/13/19 History trazodone 225 mg PO HS 04/24/18 01/13/19 History Metamucil 1 tbsp PO PM 07/01/18 01/13/19 History travoprost 1 drp OPL QAM 07/01/18 01/13/19 History atorvastatin 40 mg tablet 40 mg PO HS #90 tab 11/11/18 01/13/19 Rx gabapentin 400 mg capsule 400 mg PO TID cap 11/16/18 01/13/19 History digoxin 0.125 mg PO QAM 11/25/18 01/13/19 History ipratropium-albuterol 3 ml NEB Q6H PRN #90 ml 11/27/18 01/13/19 Rx bupropion HCl XL 150 mg 24 hr 150 mg PO QAM 12/23/18 01/13/19 History tablet, extended release cholecalciferol (vitamin D3) 2,000 2,000 units PO DAILY #30 tab 01/02/19 01/13/19 History unit tablet cyanocobalamin (vitamin B-12) 2,500 mcg PO DAILY tab 01/02/19 01/13/19 History 2,500 mcg tablet lorazepam 0.5 mg tablet 0.5 mg PO Q6H PRN tab 01/02/19 01/13/19 History tramadol 50 mg tablet 50 mg PO QID PRN tab 01/02/19 01/13/19 History vitamin E 200 unit capsule 200 units PO DAILY 01/02/19 01/13/19 History zinc gluconate 50 mg tablet 50 mg PO DAILY tab 01/02/19 01/13/19 History clonazepam 1 mg PO HS 01/05/19 01/13/19 History diltiazem HCl [DILT-XR] 240 mg PO QAM 01/05/19 01/13/19 History escitalopram oxalate [Lexapro] 5 mg PO QAM 08/20/19 08/28/19 History Past Med/Surg History Medical History Right knee DJD UGI bleed (04/12/14) hx Lumbar stenosis with neurogenic claudication Asthma stable Atrial fibrillation paroxysmal ADHD Anemia Cancer skin cancer (forehead) Chronic obstructive pulmonary disease stable Depression Glaucoma left eye Hearing deficit b/l HERRERA History of blood transfusion years ago post-op Hyperlipidemia Incontinence of urine Osteoarthritis Peptic ulcer disease Surgical History Fusion of spine lumbar H/O elbow surgery bilateral H/O thumb surgery right H/O toe surgery left foot History of appendectomy History of colonoscopy History of discectomy lumbar History of esophagogastroduodenoscopy (EGD) History of open reduction and internal fixation (ORIF) procedure right ankle History of surgical removal of skin lesion History of tonsillectomy History of total hip arthroplasty right hip History of total knee replacement bilateral; right TKA: 05/22/17: SAB x1 at L3-L4 + PNB at [facility] S/P AMANDA (total abdominal hysterectomy) S/P ankle arthrodesis right ankle S/P foot surgery, left removal of bone spur S/P hardware removal right ankle S/P laparotomy removed adhesions to relieve bowel strangulation Family History Father No problems noted. Brother Prostate cancer Mother Skin cancer Aunt Rheumatoid arthritis Unknown Cancer Hypertension Heart disease Coronary heart disease Prostate cancer Other No significant family history Social History Preferred Language: Bots[place] Communication Ability: Effective Utilities And Maintenance Supervisor Required: No Beliefs That Will Affect Care: None Current Living Situation: Alone Current Living Situation Comment: own apartment in nursing home facility 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al status: retired Other Information That Helps Us Care for You: No Feels Safe at Home: Yes Safety Concerns: Feels Safe At This Time Smoking Status: Former smoker Tobacco Type: cigarettes ; Age Quit Using Tobacco: 71 ; Do You Dip or Chew Tobacco: No ; Smoking End Date: Quit 06/2018 ; Second Hand Exposure: Yes ; Tobacco Cessation Education Requested by Patient: No Hx Alcohol Use: No Hx Substance Use: No Dental Care, Regularly: No Physical Exam Physical Exam: Patient is alert and oriented neurologically intact.
[2019-01-13] MEDS ORDERED: HYDROmorphone INJ 2 MG/ML SYR/VIAL ONE ×2 (11:51→14:09)
[2019-01-13] MEDS ORDERED: BUPIVACAINE/EPINEPHRINE 0.5% MPF 1:200,000 30 ML VIAL ONE (11:53)
[2019-01-13] MEDS ORDERED: BACITRACIN INJ 50,000 UNIT VIAL ONE (11:53)
[2019-01-13] MEDS ORDERED: fentaNYL citrate 100 MCG/2 ML VIAL IV PRN (12:04)
[2019-01-13] MEDS ORDERED: ATROPINE SULFATE 0.1 MG/ML 10ML SYR IV PRN (12:04)
[2019-01-13] MEDS ORDERED: HYDROmorphone INJ 0.5 MG/0.5 ML SYR IV PRN (12:04)
[2019-01-13] MEDS ORDERED: ePHEDrine sulfate 50 MG/ML AMP IV PRN (12:04)
[2019-01-13] MEDS ORDERED: ONDANSETRON INJ 2 MG/ML 2 ML VIAL IV PRN ×2 (12:04→15:28)
[2019-01-13] MEDS ORDERED: ROCURONIUM BROMIDE 10 MG/ML 5 ML VIAL ONE (12:42)
[2019-01-13] MEDS ORDERED: PROPOFOL IV EMULSION 10 MG/ML 20 ML VIAL IV ONE (12:42)
[2019-01-13] MEDS ORDERED: DEXAMETHASONE SOD INJ 4 MG/ML VIAL ONE (12:42)
[2019-01-13] MEDS ORDERED: ePHEDrine sulfate 50 MG/ML SYR ONE ×2 (12:42→13:37)
[2019-01-13] MEDS ORDERED: GLYCOPYRROLATE 0.2 MG/ML VIAL ONE (12:42)
[2019-01-13] MEDS ORDERED: ONDANSETRON INJ 2 MG/ML 2 ML VIAL ONE (12:42)
[2019-01-13] MEDS ORDERED: NEOSTIGMINE METHYLSULFATE 1 MG/ML 10ML VIAL ONE (12:42)
[2019-01-13] MEDS ORDERED: LIDOCAINE HCL 2% 2 ML VIAL/AMP(20MG/ML) INFIL ONE (12:42)
[2019-01-13] MEDS ORDERED: FLOSEAL HEMOSTATIC MATRIX 10ML TOP ONE (12:57)
[2019-01-13] MEDS ORDERED: ePHEDrine sulfate 50 MG/ML AMP ONE (13:37)
--- NOTE | 2019-01-13 14:11 | Operative Report ---
Post Operative Report Pre & Post Diagnosis Operation Date: 01/13/19 12:15 Pre-Op Diagnosis: Spinal stenosis, lumbar region with neurogenic claudication L3-4 Spondylolisthesis L3-4. Post-Op Diagnosis: Same Procedure Operation Date: 01/13/19 12:15 Actual Procedures #1 removal of posterior instrumentation L4-L5. #2 expiration of fusion L4-5. #3 lumbar decompression with bilateral medial facetectomies foraminotomies L2-3 L3-4. Before posterior spinal fusion L3-4. #5 placement posterior instrumentation L3-4 per #6 interbody fusion L3-4. #7 placed a peek cage 11 x 22 mm L3-4. #8 of local autograft in the posterior lateral gutters. #9 placement infuse collagen sponge, master graft in the posterior lateral gutters and ostial amp and interbody space. Surgeon Sanchez Lerma DO Deckhand Sponge Boat Josefina Rivero Estimated Blood Loss 275 Findings Consistent with Post-Op Diagnosis Specimens None Description of Procedure Patient was met with identified and informed consent obtained. Patient was then taken to the operative suite underwent intubation placed in the prone position on the Jeffry table on top of the Yury frame. All bony prominences well-pa dded eyes inspected to ensure no external pressure placed upon the peer at this point the lumbar spine was prepped and draped in normal sterile fashion. Sharp dissection with the assistance of a cautery was performed on and exposing the lamina and transverse processes of L3 and instrumentation L4-5 bilaterally. This time of procedure proceeded to remove the hardware at L4-5 bilaterally explore the fusion mass noting to be intact. Then performed a complete laminectomy of L3 partial laminectomy of L2 including bilateral medial facetectomies foraminotomies L2-L3 L3-4 levels. Pedicle screws were then placed in L3 and L4 bilaterally with assistance of fluoroscopy and the appropriately size doe placed. By way of a transforaminal portion right complete discectomy was performed in plate graded to subcortical being bone and a 11 x 22 mm cage filled with ostium bone graft tapped in position. The rods were then locked into final position bilaterally. The transverse processes of L3 and L4 burred to subcortical bleeding bone. Infuse collagen sponge master graft local autograft placed in the posterior lateral gutters. 15 round IAN drain inserted. The incision was then closed with 1 Vicryl in the fascia 2-0 Vicryl subtenons seen for Monocryl for final skin closure. Steri-Strips dressings placed. Patient will continue PACU stable condition. Please note Josefina Rivero present throughout the entire procedure involved the patient positioning complex portions of the surgery and final skin closure. Lastly spinal cord monitoring was utilized that the procedure no changes noted. I attest to the content of the Intraoperative Record and any orders documented therein. Any exceptions are noted below.
--- NOTE | 2019-01-13 14:53 | Fluoroscopy Report ---
FL lumbar spine 2-3V CLINICAL HISTORY: 78 years-old Female presenting with L3-L4 DECOMP/FUSION, L4-L5 HARDWARE REMOVAL. TECHNIQUE: 2 fluoroscopic image(s) recorded as part of an intraoperative procedure. COMPARISON: CT from 08/21/2017. FINDINGS/IMPRESSION: Posterior bilateral transpedicular screw and doe fixation of L3-4 interbody spacer at L3-4 and L4-5. Laminectomy defects at L3 and L4. The prior transpedicular screws at L5 have been removed. Please see surgical report for further details. Fluoroscopy dosage (mGy): 7.98. Fluoroscopy time: 9.9 seconds. Number or time of high level fluoroscopy (HLF), digital spot, or digital subtraction images: 0. Electronically signed by: Yovani Costa M.D. 01/13/2019 2:52 PM
--- NOTE | 2019-01-13 14:54 | Anesthesiology Progress Note ---
Date of Service January 13, 2019 Anesthesia Post Procedure Vital Signs Vital Signs: Temp Pulse Pulse Resp BP Pulse Ox 01/13/19 14:50 74 15 129/76 98 01/13/19 14:40 75 19 136/60 96 01/13/19 14:32 36.2 C L 82 12 141/69 H 96 01/13/19 11:31 37 C 70 18 117/74 93 Pain Intensity Right Leg: Pain Intensity: 4 Transfer of Care Handoff Completed per policy Notes Mental Status: alert / awake / arousable and participated in evaluation Patient Amnestic to Procedure: Yes Nausea / Vomiting: adequately controlled Pain: adequately controlled Airway Patency, RR, SpO2: stable & adequate BP & HR: stable & adequate Hydration State: stable & adequate Anesthetic Complications: no major complications apparent and Pt Satisfied with anesthetic care
[2019-01-13] MEDS ORDERED: ACETAMINOPHEN 500 MG TAB PO PRN (15:28)
[2019-01-13] MEDS ORDERED: BISACODYL 10 MG SUPP PR PRN (15:28)
[2019-01-13] MEDS ORDERED: ACETAMINOPHEN 1,000 MG/100 ML VIAL IV PRN (15:28)
[2019-01-13] MEDS ORDERED: FAMOTIDINE 20 MG TAB PO PRN (15:28)
[2019-01-13] MEDS ORDERED: ALBUTEROL HFA 8 GM INHALER INH PRN (15:28)
[2019-01-13] MEDS ORDERED: METOCLOPRAMIDE HCL INJ 5 MG/ML 2 ML VIAL IV PRN (15:28)
[2019-01-13] MEDS ORDERED: NALOXONE HCL 0.4 MG/1 ML VIAL/CARP IV PRN (15:28)
[2019-01-13] MEDS ORDERED: MAGNESIUM HYDROXIDE SUSP 30 ML UDC PO PRN (15:28)
[2019-01-13] MEDS ORDERED: LORazepam 0.5 MG TAB PO PRN ×2 (15:28)
[2019-01-13] MEDS ORDERED: LORazepam 0.5 MG/1 ML VIAL IV PRN (15:28)
[2019-01-13] MEDS ORDERED: BUDESONIDE/FORMOTEROL FUMARATE 160/4.5 60 PUFFS/INHALER INH PRN (15:28)
[2019-01-13] MEDS ORDERED: PROMETHAZINE HCL 12.5 MG in SODIUM CHLORIDE 0.9% 50 ML IV PRN (15:28)
[2019-01-13] MEDS ORDERED: TRAMADOL HCL 50 MG TABLET PO PRN ×2 (15:28)
[2019-01-13] MEDS ORDERED: ALBUT/IPRATROP 3MG/0.5MG NEB 3 ML VIAL NEB PRN (15:28)
[2019-01-13] MEDS ORDERED: ONDANSETRON 4 MG TAB PO PRN (15:28)
[2019-01-13] MEDS ORDERED: SOD PHOSPHATE/SOD BIPHOSPHATE ENEMA 132 ML BTL PR PRN (15:28)
[2019-01-13] MEDS ORDERED: ALUMINUM/MAGNESIUM SUSP 30 ML UDC PO PRN (15:28)
[2019-01-13] MEDS ORDERED: DO NOT ADMINISTER FLU VACCINE PRN (15:28)
[2019-01-13] MEDS ORDERED: DO NOT ADMINISTER PNEUMOCOCCAL VACCINE PRN (15:28)
--- NOTE | 2019-01-13 16:40 | Hospitalist Consultation ---
Date of Consultation January 13, 2019 Assessment & Plan (1) Lumbar stenosis with neurogenic claudication: S/p spinal fusion of L3/L4 & removal of L4/L5 hardware on 01/[address] Lerma. No complications listed in the operative report. - Post-op care per primary team. (2) Asthma: No recent PFTs. Was recently seen by Dr. Bobby and felt to be in good shape from pulmonary standpoint. Apparently has Symbicort that she rarely takes. - DuoNebs PRN (3) Atrial fibrillation: Paroxsymal. Last EKG in 11/2018 was in sinus rhythm. Regular rhythm on exam today. - Continue home apixaban when cleared by surgery - Continue home calcium channel cheri, beta-cheri, and digoxin (4) Hyperlipidemia: - Continue home statin (5) Anxiety disorder: On an extensive psychiatric regimen at home. Discussed meds with the patient. - Continue home meds (6) Anemia: Last CBC in 11/2018 actually showed hgb of 14.8. - Monitor hgb after surgery (7) DVT prophylaxis: On ASA 81mg; restart apixaban for her paroxymal afib when cleared by surgery. History of Present Illness Attending Physician: Sanchez Lerma, DO History of Present Illness 78yo F w/ hx of paroxysmal afib, HTN, and asthma who presents after spinal fusion of L3/L4 & removal of L4/L5 hardware on 01/[address] Lerma. The patient had been having intractable left-sided lumbar radiculopathy symptoms. She reports minimal pain at this point. She says she can "notice" the pain, but otherwise is comfortable. No nausea or vomiting. No shortness of breath while resting in bed. She is in good spirits. Allergies Allergy/AdvReac Type Severity Reaction Status Date / Time procaine Allergy Severe novacaine Verified 01/13/19 11:14 - anaphylaxis, mouth swelling, dyspnea fluticasone Allergy Intermediate chest pain Verified 01/13/19 11:14 (from Advair) salmeterol Allergy Intermediate chest pain Verified 01/13/19 11:14 (from Advair) chocolate flavor Allergy Mild rash Verified 01/13/19 11:14 mivacurium Allergy Unknown per Verified 01/13/19 11:14 records; patient denies Penicillins Allergy Unknown per Verified 01/13/19 11:14 allergy test (tolerated rocephin in the past) zolpidem AdvReac Intermediate sleep Verified 01/13/19 11:14 walking moxifloxacin AdvReac Mild N/V Verified 01/13/19 11:14 NSAIDS (Non-Steroidal AdvReac Mild advised to Verified 01/13/19 11:14 Anti-Inflamma avoid d/t ulcer hx Home Medications Home Medications Medication Instructions Recorded Confirmed Type Eliquis 5 mg PO BID 04/24/18 01/13/19 History Symbicort 2 puff INHALATION BID PRN 04/24/18 01/13/19 History albuterol sulfate [Ventolin HFA] 2 puff INHALATION Q4 PRN 04/24/18 01/13/19 History aspirin 81 mg PO HS 04/24/18 01/13/19 History calcium carbonate-vitamin D3 1 tab PO BID 04/24/18 01/13/19 History [Calcium 600 + D(3)] diclofenac sodium [Voltaren] 1 applic TOPICAL QID PRN 04/24/18 01/13/19 History escitalopram oxalate [Lexapro] 20 mg PO QAM 04/24/18 01/13/19 History lamotrigine [Lamictal] 150 mg PO HS 04/24/18 01/13/19 History montelukast 10 mg PO HS 04/24/18 01/13/19 History multivitamin 1 tab PO QAM 04/24/18 01/13/19 History pantoprazole [Protonix] 40 mg PO QAM 04/24/18 01/13/19 History pramipexole [Mirapex] 0.5 mg PO HS 04/24/18 01/13/19 History trazodone 225 mg PO HS 04/24/18 01/13/19 History Metamucil 1 tbsp PO PM 07/01/18 01/13/19 History travoprost 1 drp OPL QAM 07/01/18 01/13/19 History atorvastatin 40 mg tablet 40 mg PO HS #90 tab 11/11/18 01/13/19 Rx gabapentin 400 mg capsule 400 mg PO TID cap 11/16/18 01/13/19 History digoxin 0.125 mg PO QAM 11/25/18 01/13/19 History ipratropium-albuterol 3 ml NEB Q6H PRN #90 ml 11/27/18 01/13/19 Rx bupropion HCl XL 150 mg 24 hr 150 mg PO QAM 12/23/18 01/13/19 History tablet, extended release cholecalciferol (vitamin D3) 2,000 2,000 units PO DAILY #30 tab 01/02/19 01/13/19 History unit tablet cyanocobalamin (vitamin B-12) 2,500 mcg PO DAILY tab 01/02/19 01/13/19 History 2,500 mcg tablet lorazepam 0.5 mg tablet 0.5 mg PO Q6H PRN tab 01/02/19 01/13/19 History tramadol 50 mg tablet 50 mg PO QID PRN tab 01/02/19 01/13/19 History vitamin E 200 unit capsule 200 units PO DAILY 01/02/19 01/13/19 History zinc gluconate 50 mg tablet 50 mg PO DAILY tab 01/02/19 01/13/19 History clonazepam 1 mg PO HS 01/05/19 01/13/19 History diltiazem HCl [DILT-XR] 240 mg PO QAM 01/05/19 01/13/19 History escitalopram oxalate [Lexapro] 5 mg PO QAM 01/05/19 01/13/19 History Patient History Family History Father No problems noted. Brother Prostate cancer Mother Skin cancer Aunt Rheumatoid arthritis Unknown Cancer Hypertension Heart disease Coronary heart disease Prostate cancer Other No significant family history Social History Preferred Language: Sami Communication Ability: Effective Elect Equip Maint Eng Required: No Beliefs That Will Affect Care: None Current Living Situation: Alone Current Living Situation Comment: own apartment in [facility] facility 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al status: retired Other Information That Helps Us Care for You: No Feels Safe at Home: Yes Safety Concerns: Feels Safe At This Time Smoking Status: Former smoker Tobacco Type: cigarettes ; Age Quit Using Tobacco: 71 ; Do You Dip or Chew Tobacco: No ; Smoking End Date: Quit 06/2018 ; Second Hand Exposure: Yes ; Tobacco Cessation Education Requested by Patient: No Hx Alcohol Use: No Hx Substance Use: No Dental Care, Regularly: No Review of Systems Review of Systems: All systems reviewed & are unremarkable except as noted in HPI & below Physical Exam Constitutional: WD/WN, vitals as above Eyes: EOM intact bilaterally; no conjunctival abnormality ENMT: external ear and nose normal, oropharynx normal Neck: trachea midline, no thyromegaly normal visual inspection Respiratory: normal respiratory effort, lungs clear to auscultation no respiratory distress Cardiovascular: RRR, no murmur, no edema Gastrointestinal (Abdomen): Inspection/Auscultation: abdomen normal to inspection; abdomen not distended Musculoskeletal: no cyanosis or clubbing, extremities motor strength 5/5 Skin: no rashes, warm and dry Neurologic: moves all extremities and awake Psychiatric: Orientation: alert, oriented to person and cooperative Results & Data Vital Signs (Past 12 Hours) Vital Signs Temp Pulse Pulse Resp BP Pulse Ox 01/13/19 15:57 36.7 C 71 18 111/65 92 01/13/19 15:35 36.3 C L 71 18 110/66 94 01/13/19 15:09 36.4 C L 67 18 123/56 L 96 01/13/19 15:00 73 18 115/69 96 01/13/19 14:50 74 15 129/76 98 01/13/19 14:40 75 19 136/60 96 01/13/19 14:32 36.2 C L 82 12 141/69 H 96 01/13/19 11:31 37 C 70 18 117/74 93 PG Care Time/CCT Total # of Minutes Spent Total Time Spent with Patient: Total time spent is greater than 50% in coordination of care (as documented) at patient's floor/unit and/or counseling patient:
[2019-01-13] MEDS: SODIUM CHLORIDE 0.9% 1000ML 1,000 ML IV SCH (19:10)
[2019-01-13] MEDS: lamoTRIgine 100 MG TAB PO SCH (21:24)
[2019-01-13] MEDS: TRAZODONE HCL 50 MG TAB PO SCH (21:24)
[2019-01-13] MEDS: OXYCODONE HCL IR 5 MG TAB (IMMEDIATE RELEASE) PO PRN (21:26)
[2019-01-13] MEDS: clonazePAM 1 MG TAB PO SCH (21:26)
[2019-01-13] MEDS: MONTELUKAST SODIUM 10 MG TABLET PO SCH (21:28)
[2019-01-13] MEDS: CALCIUM 600MG + VIT D 400 IU TAB PO SCH (21:28)
[2019-01-13] MEDS: ASPIRIN 81 MG ECTAB PO SCH (21:28)
[2019-01-13] MEDS: ATORVASTATIN 40 MG TAB PO SCH (21:31)
[2019-01-13] MEDS: CLINDAMYCIN 600 MG in DEXTROSE 5% 50 ML IV SCH (21:32)
[2019-01-13] MEDS: PRAMIPEXOLE DIHYDROCHLO 0.5 MG TAB PO SCH (21:32)
[2019-01-13] MEDS: GABAPENTIN 400 MG CAP PO SCH (21:32)
[2019-01-13] MEDS: DOCUSATE SODIUM/SENNA 50/8.6MG TAB PO SCH (21:33)
[2019-01-14] MEDS: SODIUM CHLORIDE 0.9% 1000ML 1,000 ML IV SCH ×2 (02:12→05:26)
[2019-01-14] MEDS: CLINDAMYCIN 600 MG in DEXTROSE 5% 50 ML IV SCH (04:02)
[2019-01-14] MEDS: OXYCODONE HCL IR 5 MG TAB (IMMEDIATE RELEASE) PO PRN ×3 (04:04→17:16)
[2019-01-14] MEDS: POLYETHYLENE (MIRALAX) 17 GM PACK PO SCH ×4 (05:22→23:28)
[2019-01-14 05:29] LABS: Basophils # (auto) 0.01 K/uL (0-0.2); Basophils % (auto) 0.1 %; Hematocrit (blood only) 33.5 % (37-47); Hemoglobin 10.7 g/dL (12.0-16.0); Immature Granulocytes # (auto) 0.04 K/uL (0.00-0.02); Immature Granulocytes % (auto) 0.3 %; Lymphocytes # (auto) 0.89 K/uL (1.2-3.4); Lymphocytes % (auto) 7.2 %; Mean Corpuscular Hemoglobin 27.9 pg (25-34); Mean Corpuscular Hgb Conc 31.9 g/dL (32-36); Mean Corpuscular Volume 87.5 fL (80-100); Mean Platelet Volume 9.7 fL (7.4-10.4); Monocytes # (auto) 0.37 K/uL (0.11-0.59); Neutrophils # (auto) 11.03 K/uL (1.4-6.5); Neutrophils % (auto) 89.4 %; Platelet Count 186 K/uL (130-400); RDW Coefficient of Variation 15.2 % (11.5-14.5); Red Blood Count 3.83 M/uL (4.2-5.4); White Blood Count 12.34 K/uL (4.8-10.8)
[2019-01-14 05:47] LABS: Calcium 8.9 mg/dl (8.5-10.1); Creatinine Clr Calc Pharmacy 63.7 ml/min; Est GFR (African American) 89.3; Est GFR (Non-African American) 77.1; Potassium 3.9 mmol/L (3.5-5.1)
[2019-01-14] MEDS: GABAPENTIN 400 MG CAP PO SCH ×3 (08:02→20:51)
[2019-01-14] MEDS: CHOLECALCIFEROL 1,000 UNITS TAB PO SCH (08:02)
[2019-01-14] MEDS: MULTIVITAMIN TAB PO SCH (08:02)
[2019-01-14] MEDS: ESCITALOPRAM OXALATE 20 MG TAB PO SCH (08:02)
[2019-01-14] MEDS: PANTOprazole 40 MG TAB PO SCH (08:02)
[2019-01-14] MEDS: CYANOCOBALAMIN (VITAMIN B-12) 2,500 MCG TAB.SUBL SL SCH (08:02)
[2019-01-14] MEDS: BuPROPion XL 150 MG TABCR PO SCH (08:03)
[2019-01-14] MEDS: dilTIAZem HCL 240 MG CAPCR PO SCH (08:03)
[2019-01-14] MEDS: ESCITALOPRAM OXALATE 10 MG TAB PO SCH (08:03)
[2019-01-14] MEDS: CALCIUM 600MG + VIT D 400 IU TAB PO SCH ×2 (08:03→20:50)
[2019-01-14] MEDS: TRAVOPROST Z 0.004% OPH SOLN 2.5 ML BTL OPL SCH (08:04)
--- NOTE | 2019-01-14 08:16 | Anesthesiology Progress Note ---
Date of Service January 14, 2019 Anesthesia Post Procedure Vital Signs Vital Signs: Temp Pulse Pulse Resp BP Pulse Ox 01/14/19 07:10 36.6 C 73 16 107/62 96 01/14/19 03:52 36.4 C L 78 18 110/54 L 93 01/13/19 23:36 36.7 C 75 19 98/59 L 91 01/13/19 19:05 36.5 C 76 16 106/62 01/13/19 17:29 36.5 C 73 18 107/63 92 01/13/19 16:35 36.4 C L 70 18 109/57 L 96 01/13/19 15:57 36.7 C 71 18 111/65 92 01/13/19 15:35 36.3 C L 71 18 110/66 94 01/13/19 15:09 36.4 C L 67 18 123/56 L 96 01/13/19 15:00 73 18 115/69 96 01/13/19 14:50 74 15 129/76 98 01/13/19 14:40 75 19 136/60 96 01/13/19 14:32 36.2 C L 82 12 141/69 H 96 01/13/19 11:31 37 C 70 18 117/74 93 Pain Intensity Right Leg: Pain Intensity: 4 Notes Mental Status: alert / awake / arousable and participated in evaluation Patient Amnestic to Procedure: Yes Nausea / Vomiting: adequately controlled Pain: adequately controlled Airway Patency, RR, SpO2: stable & adequate BP & HR: stable & adequate Hydration State: stable & adequate Anesthetic Complications: Pt Satisfied with anesthetic care
--- NOTE | 2019-01-14 08:40 | Orthopedic Progress Note ---
Date of Service January 14, 2019 Assessment & Plan (1) Spinal stenosis, lumbar region with neurogenic claudication: This time initiate physical therapy. Hope for rehab placement in the next few days. Present on Admission?: Yes Subjective Patient's leg pain is markedly improved. Back pain is controlled. Physical Exam Physical Exam: Patient is comfortable she is in bed. She is good strength testing. Results & Data Vital Signs (Past 12 Hours) Vital Signs Temp Pulse Resp BP Pulse Ox 01/14/19 07:10 36.6 C 73 16 107/62 96 01/14/19 03:52 36.4 C L 78 18 110/54 L 93 01/13/19 23:36 36.7 C 75 19 98/59 L 91
[2019-01-14] MEDS ORDERED: NON-FORMULARY MEDICATION (Zinc Gluconate 50 MG) PO SCH (09:00)
[2019-01-14] MEDS: DIGOXIN 0.125 MG TAB PO SCH (15:27)
[2019-01-14] MEDS: DOCUSATE SODIUM/SENNA 50/8.6MG TAB PO SCH (20:46)
[2019-01-14] MEDS: PRAMIPEXOLE DIHYDROCHLO 0.5 MG TAB PO SCH (20:46)
[2019-01-14] MEDS: lamoTRIgine 100 MG TAB PO SCH (20:47)
[2019-01-14] MEDS: ASPIRIN 81 MG ECTAB PO SCH (20:47)
[2019-01-14] MEDS: TRAZODONE HCL 50 MG TAB PO SCH (20:48)
[2019-01-14] MEDS: MONTELUKAST SODIUM 10 MG TABLET PO SCH (20:48)
[2019-01-14] MEDS: ATORVASTATIN 40 MG TAB PO SCH (20:50)
[2019-01-14] MEDS: clonazePAM 1 MG TAB PO SCH (20:53)
[2019-01-15] MEDS: OXYCODONE HCL IR 5 MG TAB (IMMEDIATE RELEASE) PO PRN ×4 (04:34→16:32)
[2019-01-15] MEDS: POLYETHYLENE (MIRALAX) 17 GM PACK PO SCH ×3 (05:30→18:06)
--- NOTE | 2019-01-15 08:08 | Orthopedic Progress Note ---
Date of Service January 15, 2019 Assessment & Plan (1) Spinal stenosis, lumbar region with neurogenic claudication: Patient has had some increased back pain this morning was just taken her pain medications. She is ASA on top of her pain scale at this point. We will continue mobilization efforts GI DVT prophylaxis. Plan is to get her to a assisted facility when a bed is available. Subjective Patient was seen in room 306 bedside. She is status post lumbar decompression and fusion. She is having a little bit more in the way of back pain today. No pain going down the legs. No numbness or tingling. She had just taken pain medication before I entered the room. She denies any other numbness, tingling, or paresthesias. Physical Exam Physical Exam: On exam she is alert and oriented. Her abdomen soft nontender calves are supple nontender. Her dressing is clean dry and intact. Strength and sensation both intact. Results & Data Vital Signs (Past 12 Hours) Vital Signs Temp Pulse Resp BP BP Pulse Ox 01/15/19 07:09 36.9 C 67 18 115/62 91 01/14/19 22:55 36.8 C 68 16 93/51 L 89/44 L 91
[2019-01-15] MEDS: dilTIAZem HCL 240 MG CAPCR PO SCH (08:34)
[2019-01-15] MEDS: CALCIUM 600MG + VIT D 400 IU TAB PO SCH ×2 (08:34→21:10)
[2019-01-15] MEDS: GABAPENTIN 400 MG CAP PO SCH ×3 (08:35→21:10)
[2019-01-15] MEDS: PANTOprazole 40 MG TAB PO SCH (08:35)
[2019-01-15] MEDS: MULTIVITAMIN TAB PO SCH (08:35)
[2019-01-15] MEDS: CYANOCOBALAMIN (VITAMIN B-12) 2,500 MCG TAB.SUBL SL SCH (08:36)
[2019-01-15] MEDS: CHOLECALCIFEROL 1,000 UNITS TAB PO SCH (08:36)
[2019-01-15] MEDS: BuPROPion XL 150 MG TABCR PO SCH (08:36)
[2019-01-15] MEDS: TRAVOPROST Z 0.004% OPH SOLN 2.5 ML BTL OPL SCH (08:37)
[2019-01-15] MEDS: ESCITALOPRAM OXALATE 10 MG TAB PO SCH (08:39)
[2019-01-15] MEDS: ESCITALOPRAM OXALATE 20 MG TAB PO SCH (08:40)
[2019-01-15 16:14] LABS: Hematocrit (blood only) 30.9 % (37-47); Hemoglobin 9.6 g/dL (12.0-16.0); Mean Corpuscular Hemoglobin 27.5 pg (25-34); Mean Corpuscular Hgb Conc 31.1 g/dL (32-36); Mean Corpuscular Volume 88.5 fL (80-100); Mean Platelet Volume 9.5 fL (7.4-10.4); Platelet Count 171 K/uL (130-400); RDW Coefficient of Variation 16.1 % (11.5-14.5); RDW Standard Deviation 52.4 fL (36.4-46.3); Red Blood Count 3.49 M/uL (4.2-5.4); White Blood Count 9.51 K/uL (4.8-10.8)
[2019-01-15 16:33] LABS: BUN Creatinine Ratio 20.1 (10-20); Calcium 8.9 mg/dl (8.5-10.1); Creatinine Clr Calc Pharmacy 57.5 ml/min; Est GFR (African American) 78.9; Est GFR (Non-African American) 68.1; Potassium 4.1 mmol/L (3.5-5.1)
[2019-01-15] MEDS: DIGOXIN 0.125 MG TAB PO SCH (16:36)
[2019-01-15] MEDS: PRAMIPEXOLE DIHYDROCHLO 0.5 MG TAB PO SCH (21:10)
[2019-01-15] MEDS: ATORVASTATIN 40 MG TAB PO SCH (21:10)
[2019-01-15] MEDS: DOCUSATE SODIUM/SENNA 50/8.6MG TAB PO SCH (21:10)
[2019-01-15] MEDS: MONTELUKAST SODIUM 10 MG TABLET PO SCH (21:10)
[2019-01-15] MEDS: ASPIRIN 81 MG ECTAB PO SCH (21:11)
[2019-01-15] MEDS: lamoTRIgine 100 MG TAB PO SCH (21:33)
[2019-01-15] MEDS: TRAZODONE HCL 50 MG TAB PO SCH (21:34)
[2019-01-15] MEDS: clonazePAM 1 MG TAB PO SCH (21:34)
--- NOTE | 2019-01-15 22:28 | Hospitalist Progress Note ---
Date of Service January 15, 2019 Assessment & Plan (1) Lumbar stenosis with neurogenic claudication: S/p spinal fusion of L3/L4 & removal of L4/L5 hardware on 01/[address] Lerma. No complications listed in the operative report. - Post-op care per primary team. -Will defer to ortho team on when to restart apixaban. (2) Asthma: No recent PFTs. Was recently seen by Dr. Bobby and felt to be in good shape from pulmonary standpoint. Apparently has Symbicort that she rarely takes. - DuoNebs PRN -Patient appears to be at baseline. (3) Atrial fibrillation: Paroxsymal. Last EKG in 11/2018 was in sinus rhythm. Regular rhythm on exam today. - Continue home apixaban when cleared by surgery - Continue home calcium channel cheri, beta-cheri, and digoxin (4) Hyperlipidemia: - Continue home statin (5) Anxiety disorder: On an extensive psychiatric regimen at home. Discussed meds with the patient. - Continue home meds (6) Anemia: Last CBC in 11/2018 actually showed hgb of 14.8. - Monitor hgb after surgery (7) DVT prophylaxis: On ASA 81mg; restart apixaban for her paroxymal afib when cleared by surgery. Will continue to monitor patient. Subjective Patient reports feeling well. She is lying in bed comfortable. Patient reports that when she sleeps she normally has low blood pressure. Currently she denies any symptoms of chest pain, nausea, vomiting, abdominal pain. Review of Systems Review of Systems: All systems reviewed & are unremarkable except as noted in HPI & below Physical Exam Physical Exam: Constitutional: WD/WN, vitals as above Eyes: EOM intact bilaterally; no conjunctival abnormality ENMT: external ear and nose normal, oropharynx normal Neck: trachea midline, no thyromegaly normal visual inspection Respiratory: normal respiratory effort, lungs clear to auscultation no respiratory distress Cardiovascular: RRR, no murmur, no edema Gastrointestinal (Abdomen): Inspection/Auscultation: abdomen normal to inspection; abdomen not distended Musculoskeletal: no cyanosis or clubbing, extremities motor strength 5/5 Skin: no rashes, warm and dry Neurologic: moves all extremities and awake Psychiatric: Orientation: alert, oriented to person and cooperative Results & Data Vital Signs (Past 12 Hours) Vital Signs Temp Pulse Pulse Resp BP Pulse Ox 01/15/19 18:37 117/63 01/15/19 16:36 69 01/15/19 15:20 36.9 C 73 18 87/46 L 90 PG Care Time/CCT Total # of Minutes Spent Total Time Spent with Patient: Total time spent is greater than 50% in coordination of care (as documented) at patient's floor/unit and/or counseling patient:
[2019-01-16] MEDS: POLYETHYLENE (MIRALAX) 17 GM PACK PO SCH ×4 (00:04→17:22)
[2019-01-16] MEDS: OXYCODONE HCL IR 5 MG TAB (IMMEDIATE RELEASE) PO PRN ×2 (06:27→17:26)
--- NOTE | 2019-01-16 07:52 | Orthopedic Progress Note ---
Date of Service January 16, 2019 Assessment & Plan (1) Spinal stenosis, lumbar region with neurogenic claudication: Patient is improving but still has significant pain. She also is having some nausea. The plan is to get her to long term facility when bed is available. I believe we will hold her for today and plan on discharging her tomorrow if bed is available. Continue GI and DVT prophylaxis as well as pain control measures. Subjective Patient was seen in room 306 bedside. She states she is still having severe amount of back pain having a hard time just rolling over. She is also had some mild waves of nausea as well. She is not having pain rating down her legs. She denies any other numbness, tingling, or paresthesias. Physical Exam Physical Exam: On exam she is alert and oriented. Her dressing is clean dry and intact. Her IAN drain is in place and holding suction. Her sensation is intact to light touch motor exam is lying focal atrophy strength is also intact. Abdomen soft nontender calves are supple nontender. Results & Data Vital Signs (Past 12 Hours) Vital Signs Temp Pulse Pulse Resp BP BP Pulse Ox 01/16/19 06:13 37 C 66 20 103/64 100 01/16/19 05:40 70 120/65 97 01/15/19 23:44 37.2 C 73 16 106/61 92
[2019-01-16] MEDS: dilTIAZem HCL 240 MG CAPCR PO SCH (08:28)
[2019-01-16] MEDS: ESCITALOPRAM OXALATE 10 MG TAB PO SCH (08:28)
[2019-01-16] MEDS: CALCIUM 600MG + VIT D 400 IU TAB PO SCH ×2 (08:28→20:03)
[2019-01-16] MEDS: MULTIVITAMIN TAB PO SCH (08:29)
[2019-01-16] MEDS: ESCITALOPRAM OXALATE 20 MG TAB PO SCH (08:29)
[2019-01-16] MEDS: TRAVOPROST Z 0.004% OPH SOLN 2.5 ML BTL OPL SCH (08:29)
[2019-01-16] MEDS: GABAPENTIN 400 MG CAP PO SCH ×3 (08:29→20:05)
[2019-01-16] MEDS: PANTOprazole 40 MG TAB PO SCH (08:29)
[2019-01-16] MEDS: BuPROPion XL 150 MG TABCR PO SCH (08:30)
[2019-01-16] MEDS: CYANOCOBALAMIN (VITAMIN B-12) 2,500 MCG TAB.SUBL SL SCH (08:30)
[2019-01-16] MEDS: CHOLECALCIFEROL 1,000 UNITS TAB PO SCH (08:30)
[2019-01-16] MEDS: DIGOXIN 0.125 MG TAB PO SCH (17:18)
[2019-01-16] MEDS: MONTELUKAST SODIUM 10 MG TABLET PO SCH (19:59)
[2019-01-16] MEDS: DOCUSATE SODIUM/SENNA 50/8.6MG TAB PO SCH (19:59)
[2019-01-16] MEDS: lamoTRIgine 100 MG TAB PO SCH (20:01)
[2019-01-16] MEDS: ASPIRIN 81 MG ECTAB PO SCH (20:02)
[2019-01-16] MEDS: PRAMIPEXOLE DIHYDROCHLO 0.5 MG TAB PO SCH (20:03)
[2019-01-16] MEDS: ATORVASTATIN 40 MG TAB PO SCH (20:04)
[2019-01-16] MEDS: TRAZODONE HCL 50 MG TAB PO SCH (20:06)
[2019-01-16] MEDS: clonazePAM 1 MG TAB PO SCH (20:14)
[2019-01-17] MEDS: POLYETHYLENE (MIRALAX) 17 GM PACK PO SCH ×3 (00:08→11:32)
[2019-01-17 06:16] VITALS: BP 108/64; TEMP 98.1
[2019-01-17] MEDS: dilTIAZem HCL 240 MG CAPCR PO SCH (09:39)
[2019-01-17] MEDS: ESCITALOPRAM OXALATE 20 MG TAB PO SCH (09:39)
[2019-01-17] MEDS: CALCIUM 600MG + VIT D 400 IU TAB PO SCH (09:39)
[2019-01-17] MEDS: ESCITALOPRAM OXALATE 10 MG TAB PO SCH (09:40)
[2019-01-17] MEDS: TRAVOPROST Z 0.004% OPH SOLN 2.5 ML BTL OPL SCH (09:41)
[2019-01-17] MEDS: PANTOprazole 40 MG TAB PO SCH (09:41)
[2019-01-17] MEDS: MULTIVITAMIN TAB PO SCH (09:41)
[2019-01-17] MEDS: GABAPENTIN 400 MG CAP PO SCH ×2 (09:41→13:32)
[2019-01-17] MEDS: BuPROPion XL 150 MG TABCR PO SCH (09:42)
[2019-01-17] MEDS: CYANOCOBALAMIN (VITAMIN B-12) 2,500 MCG TAB.SUBL SL SCH (09:42)
[2019-01-17] MEDS: CHOLECALCIFEROL 1,000 UNITS TAB PO SCH (09:42)
[2019-01-17 11:31] VITALS: PULSE 64
--- NOTE | 2019-01-17 11:36 | Discharge Summary ---
Date of Service January 17, 2019 Admission HPI Per Admitting Provider This is a 78-year-old female well-known to me that presents with chronic persistent back and leg pain. After failing extensive course of nonoperative care is here for surgical intervention. Discharge Data Consultations 01/13/19 15:28 Consult Case Management - Discharge Planning Routine Consult Hospitalist Routine Procedures Performed Operation Date: 01/13/19 12:15 Actual Procedures p L3-L4 Decompression and Fusion, with Spinal Cord Monitoring, bone morphogenetic protein, application of Osetoamp with interbody cage L3-4(Not Applicable) - Sanchez Lerma DO s L4-L5 Hardware Removal(Not Applicable) - Sanchez Lerma DO Hospital Course (1) Lumbar stenosis with neurogenic claudication: Patient is a 78-year-old female history physical examination and radiographic images consistent with the above-mentioned diagnosis. For this reason she is brought to the operating room and undergone a lumbar decompression and fusion. This was performed by Dr. Lerma under general anesthesia. She left the operating room with a IAN drain Evans in place and transferred to PACU in stable condition. She is placed on GI and DVT prophylaxis. She is seen by physical therapy postop day #1. It was noted that she does not have much help at home and would need to go to rehab facility at discharge. And on January 17, 2019 the patient was deemed safe for discharge to [facility]. Instructions and restrictions were reviewed. She will follow-up with our office in approximately 2 weeks or sooner if she has any increased pain fevers or chills.
[2019-01-17 13:15] VITALS: O2SAT 99
[2019-01-17] MEDS: OXYCODONE HCL IR 5 MG TAB (IMMEDIATE RELEASE) PO PRN (13:37)
== END 2019-01-17 14:16 | DRG 455 ==
LOC: ASU 10:47 → 3E 14:15
DX: M48.062 Spinal stenosis, lumbar region with neurogenic claudication; H91.93 Unspecified hearing loss, bilateral; Z88.8 Allergy status to other drugs, medicaments and biological substances; Z79.899 Other long term (current) drug therapy; M43.16 Spondylolisthesis, lumbar region; D64.9 Anemia, unspecified; Z88.0 Allergy status to penicillin; Z88.1 Allergy status to other antibiotic agents; Z88.4 Allergy status to anesthetic agent; H40.9 Unspecified glaucoma; J45.909 Unspecified asthma, uncomplicated; Z98.1 Arthrodesis status; Z79.82 Long term (current) use of aspirin; Z87.891 Personal history of nicotine dependence; F41.9 Anxiety disorder, unspecified; Z97.4 Presence of external hearing-aid; E78.5 Hyperlipidemia, unspecified; Z88.6 Allergy status to analgesic agent; Z79.01 Long term (current) use of anticoagulants; I48.0 Paroxysmal atrial fibrillation

== ENCOUNTER 2019-05-12 18:51 | Inpatient (IN) ==
[2019-05-12] MEDS ORDERED: ALBUT/IPRATROP 3MG/0.5MG NEB 3 ML VIAL NEB ONE (19:02)
[2019-05-12 19:35] LABS: Basophils # (auto) 0.01 K/uL (0-0.2); Basophils % (auto) 0.2 %; Eosinophils # (auto) 0.18 K/uL (0-0.5); Eosinophils % (auto) 2.8 %; Hematocrit (blood only) 40.5 % (37-47); Hemoglobin 12.5 g/dL (12.0-16.0); Immature Granulocytes # (auto) 0.01 K/uL (0.00-0.02); Immature Granulocytes % (auto) 0.2 %; Lymphocytes # (auto) 1.83 K/uL (1.2-3.4); Mean Corpuscular Hemoglobin 27.1 pg (25-34); Mean Corpuscular Hgb Conc 30.9 g/dL (32-36); Mean Corpuscular Volume 87.9 fL (80-100); Mean Platelet Volume 9.9 fL (7.4-10.4); Monocytes # (auto) 0.49 K/uL (0.11-0.59); Monocytes % (auto) 7.8 %; Platelet Count 190 K/uL (130-400); RDW Coefficient of Variation 15.6 % (11.5-14.5); RDW Standard Deviation 49.8 fL (36.4-46.3); Red Blood Count 4.61 M/uL (4.2-5.4); White Blood Count 6.32 K/uL (4.8-10.8)
--- NOTE | 2019-05-12 19:44 | Emergency Department Note ---
Entered by Luis Miguel Cloud acting as a scribe for Barrera Knutson MD History of Present Illness General Chief complaint: Shortness of Breath/Dyspnea Stated complaint: SOB Time Seen by Provider: 05/12/19 18:56 Source: patient Mode of arrival: EMS History of Present Illness Onset (ago): week(s) 2 Location: chest Pain Consistency: + other (worsening) Quality: + other (cough) Relieved By: + other (nebulizer) Exacerbated By: + other (exertion) Associated symptoms: + denies other symptoms (racing in her chest, and a sore throat); no chest pain and no fever/chills The patient is a 78 y/o female who presents to the ED w/ CC of a worsening cough beginning two weeks ago. The patient states she has a history of asthma, and she has had a cough for about two weeks now. She reports her cough worsened today as she was exerting herself, and she had an asthma attack. The patient notes she used two nebulizers at home, and it resolved her asthma symptoms. She states she was afraid she may have pneumonia, so she called EMS. The patient reports she has intermittently been short of breath and weak in addition to her cough. She notes she will go to bed with nasal drainage and then wake in the morning and cough up clear sputum. The patient states she wears O2 at night and does not wear it throughout the day. She reports her PCP is [facility] with Dr. Costa. The patient denies fevers, chills, chest pain, racing in her chest, and a sore throat. Home Medications Home Medications Medication Instructions Recorded Confirmed Type albuterol sulfate [Ventolin HFA] 2 puff INHALATION Q4 PRN 04/24/18 05/12/19 History escitalopram oxalate [Lexapro] 20 mg PO QAM 04/24/18 05/12/19 History multivitamin 1 tab PO QAM 04/24/18 05/12/19 History pantoprazole [Protonix] 40 mg PO QAM 04/24/18 05/12/19 History trazodone 225 mg PO HS 04/24/18 05/12/19 History Metamucil 1 tbsp PO PM 07/01/18 05/12/19 History atorvastatin 40 mg tablet 40 mg PO HS #90 tab 11/11/18 05/12/19 Rx ipratropium-albuterol 3 ml NEB Q6H PRN #90 ml 11/27/18 05/12/19 Rx bupropion HCl 150 mg 24 hr tablet, 150 mg PO QAM 12/23/18 05/12/19 History extended release cholecalciferol (vitamin D3) 2,000 2,000 units PO DAILY #30 tab 01/02/19 05/12/19 History unit tablet cyanocobalamin (vitamin B-12) 2,500 mcg PO DAILY tab 01/02/19 05/12/19 History 2,500 mcg tablet lorazepam 0.5 mg tablet 0.5 mg PO Q6H PRN tab 01/02/19 05/12/19 History zinc gluconate 50 mg tablet 50 mg PO DAILY tab 01/02/19 05/12/19 History clonazepam 1 mg PO HS 01/05/19 05/12/19 History escitalopram oxalate [Lexapro] 5 mg PO QAM 01/05/19 05/12/19 History tramadol 50 mg PO QID PRN #30 tab 01/14/19 05/12/19 Rx lamotrigine 150 mg tablet 150 mg PO HS #30 tab 01/29/19 05/12/19 Rx fluticasone furoate 200 1 puffs INH DAILY 02/04/19 05/12/19 History mcg-vilanterol 25 mcg/dose inhalation powder aspirin 81 mg tablet,delayed 81 mg PO HS #30 tab 03/23/19 05/12/19 Rx release pramipexole 0.5 mg tablet 0.5 mg PO HS #90 tab 03/23/19 05/12/19 Rx digoxin 125 mcg (0.125 mg) tablet 125 mcg PO QAM #30 tab 04/19/19 05/12/19 Rx diltiazem HCl 240 mg 240 mg PO QAM #30 cap 04/19/19 05/12/19 Rx capsule,extended release 24 hr, controlled montelukast 10 mg tablet 10 mg PO HS #30 tab 04/19/19 05/12/19 Rx vitamin E 200 unit capsule 200 units PO DAILY #30 cap 04/19/19 05/12/19 Rx apixaban 5 mg tablet 5 mg PO BID #60 tab 05/11/19 05/12/19 Rx calcium carbonate 600 mg (1,500 1 tab PO BID #60 tab 05/11/19 05/12/19 Rx mg)-vitamin D3 400 unit tablet gabapentin 400 mg PO TID 05/12/19 05/12/19 History Allergies Allergy/AdvReac Type Severity Reaction Status Date / Time procaine Allergy Severe novacaine Verified 05/12/19 20:45 - anaphylaxis, mouth swelling, dyspnea fluticasone Allergy Intermediate chest pain Verified 05/12/19 20:45 (from Advair) salmeterol Allergy Intermediate chest pain Verified 05/12/19 20:45 (from Advair) chocolate flavor Allergy Mild rash Verified 05/12/19 20:45 Penicillins Allergy Unknown per Verified 05/12/19 20:45 allergy test (tolerated rocephin in the past) zolpidem AdvReac Intermediate sleep Verified 05/12/19 20:45 walking moxifloxacin AdvReac Mild N/V Verified 05/12/19 20:45 NSAIDS (Non-Steroidal AdvReac Mild advised to Verified 05/12/19 20:45 Anti-Inflamma avoid d/t ulcer hx azithromycin AdvReac throat Verified 05/12/19 20:45 burned, lost weight Past Med/Surg History Medical History ADHD Anemia Asthma (Chronic) stable Atrial fibrillation (Chronic) paroxysmal Cancer skin cancer (forehead) Chronic obstructive pulmonary disease stable Depression Glaucoma left eye Hearing deficit b/l HERRERA History of blood transfusion years ago post-op Hyperlipidemia Incontinence of urine Lumbar stenosis with neurogenic claudication (Chronic) Osteoarthritis Peptic ulcer disease Right knee DJD (Resolved) UGI bleed (Chronic 04/12/14) hx Surgical History Fusion of spine lumbar H/O elbow surgery bilateral H/O thumb surgery right H/O toe surgery left foot History of appendectomy History of colonoscopy History of discectomy lumbar History of esophagogastroduodenoscopy (EGD) History of open reduction and internal fixation (ORIF) procedure right ankle History of surgical removal of skin lesion History of tonsillectomy History of total hip arthroplasty right hip History of total knee replacement bilateral; right TKA: 05/22/17: SAB x1 at L3-L4 + PNB at [facility] S/P ankle arthrodesis right ankle S/P foot surgery, left removal of bone spur S/P hardware removal right ankle S/P laparotomy removed adhesions to relieve bowel strangulation S/P AMANDA (total abdominal hysterectomy) Family History Father No problems noted. Brother Prostate cancer Mother Skin cancer Aunt Rheumatoid arthritis Unknown Cancer Hypertension Heart disease Coronary heart disease Prostate cancer Social History Preferred Language: [place] Communication Ability: Effective Financial Administrator Required: No Beliefs That Will Affect Care: None Current Living Situation: Alone Current Living Situation Comment: own apartment in [facility] facility 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al status: retired Other Information That Helps Us Care for You: No Feels Safe at Home: Yes Safety Concerns: Feels Safe At This Time Smoking Status: Former smoker Tobacco Type: cigarettes ; Age Quit Using Tobacco: 71 ; Do You Dip or Chew Tobacco: No ; Second Hand Exposure: No ; Hx Alcohol Use: No Hx Substance Use: No Dental Care, Regularly: No Review of Systems See HPI for pertinent positives & negatives. and A total of 10 systems reviewed and were otherwise negative Physical Exam Vital Signs Vital Signs - 24 hr 05/12/19 18:48 05/12/19 18:54 05/12/19 19:01 Temperature 36.8 C Temperature Source Oral Pulse Rate 64 59 L 62 Pulse Rate [Right Radial] Pulse Rate from SpO2 Sensor 56 L 65 Respiratory Rate 19 30 H 15 Respiratory Effort / Characteristics Respiratory Depth Respiratory Pattern Blood Pressure 143/55 H 143/55 H Blood Pressure [Right Arm] Blood Pressure Mean 84 89 Blood Pressure Mean [Right Arm] Blood Pressure Position [Right Arm] Pulse Oximetry 92 91 90 Oxygen Delivery Method Room Air Room Air Oxygen Flow Rate Sepsis Recent Fever Within 48 Hours No Sepsis Action Taken by Nursing No Action Required 05/12/19 19:03 05/12/19 19:09 05/12/19 19:15 Temperature Temperature Source Pulse Rate 60 Pulse Rate [Right Radial] Pulse Rate from SpO2 Sensor Respiratory Rate 22 Respiratory Effort / Characteristics Respiratory Depth Respiratory Pattern Blood Pressure Blood Pressure [Right Arm] Blood Pressure Mean Blood Pressure Mean [Right Arm] Blood Pressure Position [Right Arm] Pulse Oximetry 92 92 Oxygen Delivery Method Room Air Room Air Oxygen Flow Rate Sepsis Recent Fever Within 48 Hours Sepsis Action Taken by Nursing 05/12/19 19:30 05/12/19 19:34 05/12/19 19:45 Temperature Temperature Source Pulse Rate 64 57 L Pulse Rate [Right Radial] 55 L Pulse Rate from SpO2 Sensor 54 L Respiratory Rate 19 18 28 H Respiratory Effort / Characteristics Non-Labored Spontaneous Respiratory Depth Respiratory Pattern Blood Pressure Blood Pressure [Right Arm] Blood Pressure Mean Blood Pressure Mean [Right Arm] Blood Pressure Position [Right Arm] Pulse Oximetry 98 100 Oxygen Delivery Method Room Air Oxygen Flow Rate Sepsis Recent Fever Within 48 Hours Sepsis Action Taken by Nursing 05/12/19 19:54 05/12/19 19:55 05/12/19 20:00 Temperature Temperature Source Pulse Rate 66 57 L 65 Pulse Rate [Right Radial] Pulse Rate from SpO2 Sensor 58 L 57 L 55 L Respiratory Rate 30 H 32 H 25 H Respiratory Effort / Characteristics Respiratory Depth Respiratory Pattern Blood Pressure 114/60 Blood Pressure [Right Arm] Blood Pressure Mean 74 Blood Pressure Mean [Right Arm] Blood Pressure Position [Right Arm] Pulse Oximetry 100 100 100 Oxygen Delivery Method Oxygen Flow Rate Sepsis Recent Fever Within 48 Hours Sepsis Action Taken by Nursing 05/12/19 20:01 05/12/19 20:15 05/12/19 20:16 Temperature Temperature Source Pulse Rate 57 L 60 60 Pulse Rate [Right Radial] Pulse Rate from SpO2 Sensor 57 L 60 Respiratory Rate 20 25 H 24 Respiratory Effort / Characteristics Respiratory Depth Respiratory Pattern Blood Pressure 117/43 L 135/59 L Blood Pressure [Right Arm] Blood Pressure Mean 80 80 Blood Pressure Mean [Right Arm] Blood Pressure Position [Right Arm] Pulse Oximetry 100 100 Oxygen Delivery Method Oxygen Flow Rate Sepsis Recent Fever Within 48 Hours Sepsis Action Taken by Nursing 05/12/19 20:17 05/12/19 20:30 05/12/19 20:31 Temperature Temperature Source Pulse Rate 59 L 61 60 Pulse Rate [Right Radial] Pulse Rate from SpO2 Sensor 59 L 60 60 Respiratory Rate 26 H 30 H 17 Respiratory Effort / Characteristics Respiratory Depth Respiratory Pattern Blood Pressure 117/38 L Blood Pressure [Right Arm] Blood Pressure Mean 53 Blood Pressure Mean [Right Arm] Blood Pressure Position [Right Arm] Pulse Oximetry 100 100 99 Oxygen Delivery Method Oxygen Flow Rate Sepsis Recent Fever Within 48 Hours Sepsis Action Taken by Nursing 05/12/19 20:42 05/12/19 20:44 05/12/19 20:45 Temperature Temperature Source Pulse Rate 72 Pulse Rate [Right Radial] Pulse Rate from SpO2 Sensor 77 Respiratory Rate 29 H Respiratory Effort / Characteristics Respiratory Depth Respiratory Pattern Blood Pressure Blood Pressure [Right Arm] Blood Pressure Mean Blood Pressure Mean [Right Arm] Blood Pressure Position [Right Arm] Pulse Oximetry 86 L 91 91 Oxygen Delivery Method Room Air Nasal Cannula Oxygen Flow Rate 2 Sepsis Recent Fever Within 48 Hours Sepsis Action Taken by Nursing 05/12/19 21:00 05/12/19 21:08 05/12/19 21:15 Temperature Temperature Source Pulse Rate 65 64 64 Pulse Rate [Right Radial] 68 Pulse Rate from SpO2 Sensor 64 65 63 Respiratory Rate 27 H 14 30 H Respiratory Effort / Characteristics Non-Labored Spontaneous Respiratory Depth Normal Respiratory Pattern Regular Blood Pressure 128/47 L 117/60 Blood Pressure [Right Arm] 128/47 L Blood Pressure Mean 60 79 Blood Pressure Mean [Right Arm] 74 Blood Pressure Position [Right Arm] Lying Pulse Oximetry 92 89 L 90 Oxygen Delivery Method Nasal Cannula Nasal Cannula Oxygen Flow Rate 2 2 Sepsis Recent Fever Within 48 Hours Sepsis Action Taken by Nursing 05/12/19 21:16 05/12/19 21:30 05/12/19 21:31 Temperature Temperature Source Pulse Rate 66 68 67 Pulse Rate [Right Radial] Pulse Rate from SpO2 Sensor 69 69 69 Respiratory Rate 22 27 H 27 H Respiratory Effort / Characteristics Respiratory Depth Respiratory Pattern Blood Pressure 125/53 L Blood Pressure [Right Arm] Blood Pressure Mean 76 Blood Pressure Mean [Right Arm] Blood Pressure Position [Right Arm] Pulse Oximetry 90 90 91 Oxygen Delivery Method Nasal Cannula Nasal Cannula Oxygen Flow Rate 2 2 3 Sepsis Recent Fever Within 48 Hours Sepsis Action Taken by Nursing 05/12/19 21:45 05/12/19 21:46 05/12/19 22:00 Temperature Temperature Source Pulse Rate 68 67 67 Pulse Rate [Right Radial] Pulse Rate from SpO2 Sensor 68 64 66 Respiratory Rate 30 H 21 21 Respiratory Effort / Characteristics Respiratory Depth Respiratory Pattern Blood Pressure 122/54 L 130/60 Blood Pressure [Right Arm] Blood Pressure Mean 77 81 Blood Pressure Mean [Right Arm] Blood Pressure Position [Right Arm] Pulse Oximetry 91 92 91 Oxygen Delivery Method Nasal Cannula Nasal Cannula Oxygen Flow Rate 3 3 Sepsis Recent Fever Within 48 Hours Sepsis Action Taken by Nursing 05/12/19 22:01 05/12/19 22:15 05/12/19 22:30 Temperature Temperature Source Pulse Rate 74 86 67 Pulse Rate [Right Radial] Pulse Rate from SpO2 Sensor 60 74 68 Respiratory Rate 17 18 23 Respiratory Effort / Characteristics Respiratory Depth Respiratory Pattern Blood Pressure 95/58 L Blood Pressure [Right Arm] Blood Pressure Mean 67 Blood Pressure Mean [Right Arm] Blood Pressure Position [Right Arm] Pulse Oximetry 90 93 90 Oxygen Delivery Method Oxygen Flow Rate Sepsis Recent Fever Within 48 Hours Sepsis Action Taken by Nursing 05/12/19 22:31 Temperature Temperature Source Pulse Rate 66 Pulse Rate [Right Radial] Pulse Rate from SpO2 Sensor 67 Respiratory Rate 23 Respiratory Effort / Characteristics Respiratory Depth Respiratory Pattern Blood Pressure 120/49 L Blood Pressure [Right Arm] Blood Pressure Mean 82 Blood Pressure Mean [Right Arm] Blood Pressure Position [Right Arm] Pulse Oximetry 92 Oxygen Delivery Method Oxygen Flow Rate Sepsis Recent Fever Within 48 Hours Sepsis Action Taken by Nursing General: Non-ill appearing middle-aged female with a hacking cough. No significant increase in worker breathing. HEENT: Normal cephalic atraumatic. Pupils are equal round and reactive to light. Extraocular movements are intact. Oropharynx is pink with moist mucous membranes. No swelling of the mouth lips or tongue. Neck: Supple with a midline trachea. No meningeal signs or stiffness, no JVD or bruits. No Stridor. Chest: Clear to auscultation bilaterally. Wheezes and rhonchi bilaterally. No increased work of breathing. Heart: regular rate and rhythm. Abdomen: Soft nontender, nondistended without rebound guarding or rigidity. Extremities: No cyanosis clubbing or edema. No calf tenderness or asymmetry Spine/Back. Non tender to palpation. No CVA tenderness Skin: Good turgor without rashes. Neurologic exam: Cranial nerves two through 12 are intact. Motor and sensation are intact and symmetrical throughout. Course Course 185: The patient was evaluated in room B09. A complete history and physical exam was performed. 1943: The patient is still receiving her nebulizer with an O2Sat of 100. 2017: Upon reevaluation, the patient is resting comfortably. I discussed laboratory and radiographic results with her. She verbalized agreement of the treatment plan. The patient will be evaluated for further management and care. 2019: I reviewed the patient's case with Dr. Medina, [facility] Hospitalist. He will evaluate the patient for further management. Administered Medications Discontinued Medications Albuterol (Duoneb) 12 ml NEB ONE ONE Stop: 05/12/19 19:03 Last Admin: 05/12/19 19:33 Dose: 12 ml Documented by: [id number] Methylprednisolone (Solumedrol) 125 mg IV NOW STA Stop: 05/12/19 20:14 Last Admin: 05/12/19 20:21 Dose: 125 mg Documented by: [id number] Critical Care Time Critical Care Time: Yes Total Critical Care Time: 30 I have personally spent 30 minutes of critical care time in the direct management of this patient. This includes bedside care, interpretation of diagnostic studies, and testing, discussion with consultants, patient, and family members, and other required patient management activities. This 30 minutes is in excess of all separately billable procedures. Medical Decision Making Differential Diagnosis Differential diagnosis includes: pneumonia, COPD, CHF, arrhythmia, sepsis, electrolyte or metabolic abnormalities. Medical Records Attestation: I reviewed the patient's medical records. Home Medications Current Medication List: was personally reviewed by me Laboratory Data Attestation: I reviewed the patient's lab results. Result diagrams: 05/12/19 19:25 05/12/19 19:25 Lab Results 05/12/19 05/12/19 05/12/19 Range/Units 19:24 19:25 19:25 WBC 6.32 (4.8-10.8) K/uL RBC 4.61 (4.2-5.4) M/uL Hgb 12.5 (12.0-16.0) g/dL Hct 40.5 (37-47) % MCV 87.9 (80-100) fL MCH 27.1 (25-34) pg MCHC 30.9 L (32-36) g/dL RDW Std Deviation 49.8 H (36.4-46.3) fL RDW Coeff of Aspen 15.6 H (11.5-14.5) % Plt Count 190 (130-400) K/uL MPV 9.9 (7.4-10.4) fL Immature Gran % (Auto) 0.2 % Neut % (Auto) 60.0 % Lymph % (Auto) 29.0 % [place] % (Auto) 7.8 % Eos % (Auto) 2.8 % Baso % (Auto) 0.2 % Immature Gran # (Auto) 0.01 (0.00-0.02) K/uL Neut # (Auto) 3.80 (1.4-6.5) K/uL Lymph # (Auto) 1.83 (1.2-3.4) K/uL [place] # (Auto) 0.49 (0.11-0.59) K/uL Eos # (Auto) 0.18 (0-0.5) K/uL Baso # (Auto) 0.01 (0-0.2) K/uL PT 11.1 (9.0-12.0) Seconds INR 1.1 (0.9-1.1) APTT 26.2 (21.0-31.0) Seconds PTT Ratio 1.0 Sodium (136-145) mmol/L Potassium (3.5-5.1) mmol/L Chloride (98-107) mmol/L Carbon Dioxide (21-32) mmol/L Anion Gap (3-11) BUN (7-18) mg/dl Creatinine (0.6-1.2) mg/dl Est Cr Clr Drug Dosing ml/min Est GFR ( Amer) Est GFR (Non-Af Amer) BUN/Creatinine Ratio (10-20) Glucose (70-99) mg/dl Lactate (0.4-2.0) mmol/L Calcium (8.5-10.1) mg/dl Total Bilirubin (0.2-1) mg/dl AST (15-37) U/L ALT (12-78) U/L Alkaline Phosphatase (45-117) U/L Total Protein (6.4-8.2) gm/dl Albumin (3.4-5.0) gm/dl Globulin (2.5-4.0) gm/dl Albumin/Globulin Ratio (0.9-2) Influenza Type A (PCR) Neg for Influ A (Neg) Influenza Type B (PCR) Neg for Influ B (Neg) 05/12/19 05/12/19 05/12/19 Range/Units 19:25 19:25 21:21 WBC (4.8-10.8) K/uL RBC (4.2-5.4) M/uL Hgb (12.0-16.0) g/dL Hct (37-47) % MCV (80-100) fL MCH (25-34) pg MCHC (32-36) g/dL RDW Std Deviation (36.4-46.3) fL RDW Coeff of Aspen (11.5-14.5) % Plt Count (130-400) K/uL MPV (7.4-10.4) fL Immature Gran % (Auto) % Neut % (Auto) % Lymph % (Auto) % [place] % (Auto) % Eos % (Auto) % Baso % (Auto) % Immature Gran # (Auto) (0.00-0.02) K/uL Neut # (Auto) (1.4-6.5) K/uL Lymph # (Auto) (1.2-3.4) K/uL [place] # (Auto) (0.11-0.59) K/uL Eos # (Auto) (0-0.5) K/uL Baso # (Auto) (0-0.2) K/uL PT (9.0-12.0) Seconds INR (0.9-1.1) APTT (21.0-31.0) Seconds PTT Ratio Sodium 144 (136-145) mmol/L Potassium 3.3 L (3.5-5.1) mmol/L Chloride 107 (98-107) mmol/L Carbon Dioxide 34 H (21-32) mmol/L Anion Gap 4.0 (3-11) BUN 11 (7-18) mg/dl Creatinine 0.76 (0.6-1.2) mg/dl Est Cr Clr Drug Dosing 59.4 ml/min Est GFR ( Amer) 86.5 Est GFR (Non-Af Amer) 74.6 BUN/Creatinine Ratio 14.0 (10-20) Glucose 128 H (70-99) mg/dl Lactate 2.6 H* 2.0 (0.4-2.0) mmol/L Calcium 10.2 H (8.5-10.1) mg/dl Total Bilirubin 0.3 (0.2-1) mg/dl AST 13 L (15-37) U/L ALT 16 (12-78) U/L Alkaline Phosphatase 116 (45-117) U/L Total Protein 6.7 (6.4-8.2) gm/dl Albumin 3.5 (3.4-5.0) gm/dl Globulin 3.2 (2.5-4.0) gm/dl Albumin/Globulin Ratio 1.1 (0.9-2) Influenza Type A (PCR) (Neg) Influenza Type B (PCR) (Neg) Imaging Data Radiologist's Impression: Radiology results as stated below per my review and the radiologist's interpretation: XR chest 1V portable CLINICAL HISTORY: Sepsis COMPARISON STUDY: Chest radiograph November 25, 2018. FINDINGS: Lung volumes are normal. Lungs are clear. There is no pneumothorax or pleural effusion. Cardiac size is normal. Mediastinal contours are normal. There is no evidence for pulmonary edema. Moderate osteoarthritis of the left darwin ohumeral joint is incidentally noted. IMPRESSION: No acute cardiopulmonary findings. ACT 112: Negative or not required by law. Electronically signed by: Bull Kim M.D. 05/12/2019 7:46 PM ECG Data Attestation: I personally reviewed and interpreted this ECG as follows: Indication: + SOB/dyspnea Rate (beats per minute): 62 Rhythm: + normal sinus ECG ST segments: + Nonspecific ST abnormalities ECG Findings: + PACs Comparison ECG Date: from (11/25/18) Change: no significant change Blood Pressure Blood Pressure Findings: Elevated blood pressure Blood Pressure Disposition: further management by hospitalist MDM Narrative This patient comes in as scribed above. She has a history of asthma/COPD and pneumonia and she has been coughing and feeling short of breath. Her initial O2 sat was in the low 90s/high 80s. She has rhonchorous breath sounds. she was given hour-long neb. I did a sepsis work-up and evaluated her from a cardiac, pulmonary, infectious standpoint this included EKG, chest x-ray, multiple blood testing. She was reassessed frequently. With the hour-long neb she still is coughing and does not appear well. She did receive Solu-Medrol 125 mg IV as well. Her chest x-rays not show any pneumonia or CHF. EKG does not suggest acute coronary syndrome or arrhythmia. She has no acute electrolyte or metabolic abnormalities. I think this is most likely COPD exacerbation with hypoxemia, she may have a superimposed bronchitis as well. Given her age and comorbidities as well as her severe COPD, I do think she needs to be admitted/o bserve for further treatment evaluation, I did consult Dr. Moss for these measures. Impression & Plan COPD exacerbation, Hypoxemia, Cough, skilled nursing (current) use of antithrombotics/antiplatelets Discharge Plan Visit Data *Final* Discharge Date/Time: 05/12/19 23:12 Chief Complaint: Shortness of Breath/Dyspnea Stated Complaint: SOB ED Provider: Barrera Knutson Discharge Problem: COPD exacerbation, Hypoxemia, Cough, skilled nursing (current) use of antit hrombotics/antiplatelets Patient Disposition: Admitted As Inpatient Discharge Instructions Interventions: ED Discharge Assessment Last Done: 05/12/19 23:12 The scribe's documentation has been prepared under my direction and personally reviewed by me in its entirety. I confirm that the note above accurately reflects all work, treatment, procedures, and medical decision making performed by me.
[2019-05-12 19:46] LABS: INR 1.1 (0.9-1.1); Partial Thromboplastin Time 26.2 Seconds (21.0-31.0); Prothrombin Time 11.1 Seconds (9.0-12.0)
--- NOTE | 2019-05-12 19:48 | XRay Report ---
XR chest 1V portable CLINICAL HISTORY: Sepsis COMPARISON STUDY: Chest radiograph November 25, 2018. FINDINGS: Lung volumes are normal. Lungs are clear. There is no pneumothorax or pleural effusion. Car diac size is normal. Mediastinal contours are normal. There is no evidence for pulmonary edema. Moder ate osteoarthritis of the left glenohumeral joint is incidentally noted. IMPRESSION: No acute cardiopulmonary findings. ACT 112: Negative or not required by law. Electronically signed by: Bull Kim M.D. 05/12/2019 7:46 PM
[2019-05-12 19:52] LABS: Albumin Level 3.5 gm/dl (3.4-5.0); Calcium 10.2 mg/dl (8.5-10.1); Creatinine Clr Calc Pharmacy 59.4 ml/min; Est GFR (African American) 86.5; Est GFR (Non-African American) 74.6; Potassium 3.3 mmol/L (3.5-5.1)
[2019-05-12 19:56] LABS: Albumin Globulin Ratio 1.1 (0.9-2); Bilirubin,Total 0.3 mg/dl (0.2-1); Globulin 3.2 gm/dl (2.5-4.0); Total Protein 6.7 gm/dl (6.4-8.2)
[2019-05-12 20:03] LABS: Influenza A virus by PCR Neg for Influ A (Neg); Influenza B virus by PCR Neg for Influ B (Neg)
[2019-05-12] MEDS ORDERED: methylPREDNISolone 125 MG/2 ML VIAL IV STA (20:13)
--- NOTE | 2019-05-12 22:35 | History & Physical Report ---
Date of Service May 12, 2019 Assessment & Plan (1) COPD exacerbation: Admit to telemetry to monitor oxygen closely. DuoNebs 4 times daily and every 2 hours PRN. Pulmicort Respules 0.5 mg inhaled twice daily. Guaifenesin extended release 600 mg p.o. twice daily Doxycycline 100 mg IV twice daily. Solu-Medrol 40 mg IV every 8 hours. Sputum Gram stain and culture. Present on Admission?: Yes (2) Hypoxemia: Nasal cannula 2 L oxygen, titrate to keep pulse ox around 92%. Present on Admission?: Yes (3) Depression: Anxiety with depression continue bupropion, clonazepam, Lexapro, gabapentin, lamotrigine, lorazepam, and trazodone. Present on Admission?: Yes (4) Rheumatoid arthritis: No specific treatment at this time, with no flares. Continue tramadol 50 mg p.o. 4 times daily as needed Present on Admission?: Yes (5) Restless legs syndrome: Continue pramipexole Present on Admission?: Yes (6) Hyperlipidemia: Continue atorvastatin 40 mg at bedtime Present on Admission?: Yes (7) Attention deficit disorder without hyperactivity: No treatment at this time. Present on Admission?: Yes (8) Atrial fibrillation: Atrial fibrillation/hypertension- Continue apixaban 5 mg p.o. twice daily, aspirin 81 mg daily, digoxin 0.125 mg p.o. daily, diltiazem extended release 240 mg daily in the morning. Present on Admission?: Yes History of Present Illness Chief Complaint: The patient presents to the emergency department with complaint of acute onset of shortness of breath and dyspnea on exertion earlier in the afternoon prior to arrival. She reports that the symptoms began after she had an unusual impromptu sleep during the afternoon hours. Primary Care Provider: Faiza Costa MD The patient is a 78-year-old female with a past medical history including severe COPD, atrial fibrillation, multifocal pneumonia, depression, CKD stage III, urinary urge incontinence, rheumatoid arthritis, restless leg syndrome, hyperlipidemia, ray nods syndrome, diabetes mellitus type 2, ADD, asthma and anxiety. She reports that she was more fatigued than usual, fell asleep during the afternoon at her daughter's house, and after awakening became more short of breath than her usual baseline. She denies any associated chest pain, lightheadedness, dizziness or headache. Allergies Allergy/AdvReac Type Severity Reaction Status Date / Time procaine Allergy Severe novacaine Verified 05/12/19 20:45 - anaphylaxis, mouth swelling, dyspnea fluticasone Allergy Intermediate chest pain Verified 05/12/19 20:45 (from Advair) salmeterol Allergy Intermediate chest pain Verified 05/12/19 20:45 (from Advair) chocolate flavor Allergy Mild rash Verified 05/12/19 20:45 Penicillins Allergy Unknown per Verified 05/12/19 20:45 allergy test (tolerated rocephin in the past) zolpidem AdvReac Intermediate sleep Verified 05/12/19 20:45 walking moxifloxacin AdvReac Mild N/V Verified 05/12/19 20:45 NSAIDS (Non-Steroidal AdvReac Mild advised to Verified 05/12/19 20:45 Anti-Inflamma avoid d/t ulcer hx azithromycin AdvReac throat Verified 05/12/19 20:45 burned, lost weight Home Medications Home Medications Medication Instructions Recorded Confirmed Type albuterol sulfate [Ventolin HFA] 2 puff INHALATION Q4 PRN 04/24/18 05/12/19 History escitalopram oxalate [Lexapro] 20 mg PO QAM 04/24/18 05/12/19 History multivitamin 1 tab PO QAM 04/24/18 05/12/19 History pantoprazole [Protonix] 40 mg PO QAM 04/24/18 05/12/19 History trazodone 225 mg PO HS 04/24/18 05/12/19 History Metamucil 1 tbsp PO PM 07/01/18 05/12/19 History atorvastatin 40 mg tablet 40 mg PO HS #90 tab 11/11/18 05/12/19 Rx ipratropium-albuterol 3 ml NEB Q6H PRN #90 ml 11/27/18 05/12/19 Rx bupropion HCl 150 mg 24 hr tablet, 150 mg PO QAM 12/23/18 05/12/19 History extended release cholecalciferol (vitamin D3) 2,000 2,000 units PO DAILY #30 tab 01/02/19 05/12/19 History unit tablet cyanocobalamin (vitamin B-12) 2,500 mcg PO DAILY tab 01/02/19 05/12/19 History 2,500 mcg tablet lorazepam 0.5 mg tablet 0.5 mg PO Q6H PRN tab 01/02/19 05/12/19 History zinc gluconate 50 mg tablet 50 mg PO DAILY tab 01/02/19 05/12/19 History clonazepam 1 mg PO HS 01/05/19 05/12/19 History escitalopram oxalate [Lexapro] 5 mg PO QAM 01/05/19 05/12/19 History tramadol 50 mg PO QID PRN #30 tab 01/14/19 05/12/19 Rx lamotrigine 150 mg tablet 150 mg PO HS #30 tab 01/29/19 05/12/19 Rx fluticasone furoate 200 1 puffs INH DAILY 02/04/19 05/12/19 History mcg-vilanterol 25 mcg/dose inhalation powder aspirin 81 mg tablet,delayed 81 mg PO HS #30 tab 03/23/19 05/12/19 Rx release pramipexole 0.5 mg tablet 0.5 mg PO HS #90 tab 03/23/19 05/12/19 Rx digoxin 125 mcg (0.125 mg) tablet 125 mcg PO QAM #30 tab 04/19/19 05/12/19 Rx diltiazem HCl 240 mg 240 mg PO QAM #30 cap 04/19/19 05/12/19 Rx capsule,extended release 24 hr, controlled montelukast 10 mg tablet 10 mg PO HS #30 tab 04/19/19 05/12/19 Rx vitamin E 200 unit capsule 200 units PO DAILY #30 cap 04/19/19 05/12/19 Rx apixaban 5 mg tablet 5 mg PO BID #60 tab 05/11/19 05/12/19 Rx calcium carbonate 600 mg (1,500 1 tab PO BID #60 tab 05/11/19 05/12/19 Rx mg)-vitamin D3 400 unit tablet gabapentin 400 mg PO TID 05/12/19 05/12/19 History Past Med/Surg History Medical History ADHD Anemia Asthma (Chronic) stable Atrial fibrillation (Chronic) paroxysmal Cancer skin cancer (forehead) Chronic obstructive pulmonary disease stable Depression Glaucoma left eye Hearing deficit b/l HERRERA History of blood transfusion years ago post-op Hyperlipidemia Incontinence of urine Lumbar stenosis with neurogenic claudication (Chronic) Osteoarthritis Peptic ulcer disease Right knee DJD (Resolved) UGI bleed (Chronic 04/12/14) hx Surgical History Fusion of spine lumbar H/O elbow surgery bilateral H/O thumb surgery right H/O toe surgery left foot History of appendectomy History of colonoscopy History of discectomy lumbar History of esophagogastroduodenoscopy (EGD) History of open reduction and internal fixation (ORIF) procedure right ankle History of surgical removal of skin lesion History of tonsillectomy History of total hip arthroplasty right hip History of total knee replacement bilateral; right TKA: 05/22/17: SAB x1 at L3-L4 + PNB at [facility] S/P ankle arthrodesis right ankle S/P foot surgery, left removal of bone spur S/P hardware removal right ankle S/P laparotomy removed adhesions to relieve bowel strangulation S/P AMANDA (total abdominal hysterectomy) Family History Father No problems noted. Brother Prostate cancer Mother Skin cancer Aunt Rheumatoid arthritis Unknown Cancer Hypertension Heart disease Coronary heart disease Prostate cancer Social History Preferred Language: German Communication Ability: Effective Director Perioperative Required: No Beliefs That Will Affect Care: None Current Living Situation: Alone Current Living Situation Comment: own apartment in nursing home facility 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al status: retired Other Information That Helps Us Care for You: No Feels Safe at Home: Yes Safety Concerns: Feels Safe At This Time Smoking Status: Former smoker Tobacco Type: cigarettes ; Age Quit Using Tobacco: 71 ; Do You Dip or Chew Tobacco: No ; Second Hand Exposure: No ; Hx Alcohol Use: No Hx Substance Use: No Dental Care, Regularly: No Review of Systems Review of Systems: The patient denies chest pain, palpitations, change in her chronic cough, lower extremity swelling, sore throat, fevers, chills, sweats, weight change, nausea, vomiting, diarrhea , constipation, abdominal pain, pelvic pain, blood in urine or stool, dysuria, urinary frequency or urgency, lightheadedness, dizziness, headache, memory loss, loss of consciousness, rash, abnormal bruising or bleeding, imbalance, focal or generalized weakness, numbness or tingling in arms or legs, generalized arthralgias or myalgias, or night sweats. The review of systems is otherwise negative other than for that already noted above, and at least 10 systems have been reviewed. Physical Exam Physical Exam: The patient is awake, alert and oriented 3, well developed and well nourished, normocephalic and atraumatic, lying in bed and in no acute distress. HEENT--PERRL, EOMI, mucous membranes and oropharynx moderately dry. Neck--supple. No JVD. No bruits. Thyroid normal, trachea midline, no jolanta opathy. Heart--normal S1 and S2. No murmurs, rubs or gallops. Lungs--decreased breath sounds throughout. No respiratory distress, or accessory muscle use. Abdomen--normal bowel sounds and soft. Nontender. Nondistended. Extremities--no cyanosis or clubbing. No edema. There are good distal pulses b/l. Dermatologic--normal skin turgor, normal color, no abnormal lymph nodes, no rash. Neurologic--cranial nerves II through XII grossly intact. Rheumatologic--normal range of motion. Psychiatric--normal affect. Results & Data Vital Signs (Past 12 Hours) Vital Signs Temp Pulse Pulse Resp BP BP Pulse Ox 05/12/19 21:46 67 21 92 05/12/19 21:45 68 30 H 122/54 L 91 05/12/19 21:31 67 27 H 91 05/12/19 21:30 68 27 H 125/53 L 90 05/12/19 21:16 66 22 90 05/12/19 21:15 64 30 H 117/60 90 05/12/19 21:08 64 68 14 128/47 L 128/47 L 89 L 05/12/19 21:00 65 27 H 92 05/12/19 20:45 72 29 H 91 05/12/19 20:44 91 05/12/19 20:42 86 L 05/12/19 20:31 60 17 117/38 L 99 05/12/19 20:30 61 30 H 100 05/12/19 20:17 59 L 26 H 100 05/12/19 20:16 60 24 135/59 L 05/12/19 20:15 60 25 H 100 05/12/19 20:01 57 L 20 117/43 L 100 05/12/19 20:00 65 25 H 100 05/12/19 19:55 57 L 32 H 100 05/12/19 19:54 66 30 H 114/60 100 05/12/19 19:45 57 L 28 H 100 05/12/19 19:34 55 L 18 98 05/12/19 19:30 64 19 05/12/19 19:15 60 22 05/12/19 19:09 92 05/12/19 19:03 92 05/12/19 19:01 62 15 90 05/12/19 18:54 59 L 30 H 143/55 H 91 05/12/19 18:48 98.2 F 64 19 143/55 H 92 Laboratory Results Laboratory Results WBC 6.32 K/uL (4.8-10.8) 05/12/19 19:25 RBC 4.61 M/uL (4.2-5.4) 05/12/19 19:25 Hgb 12.5 g/dL (12.0-16.0) 05/12/19 19:25 Hct 40.5 % (37-47) 05/12/19 19:25 MCV 87.9 fL (80-100) 05/12/19 19:25 MCH 27.1 pg (25-34) 05/12/19 19:25 MCHC 30.9 g/dL (32-36) L 05/12/19 19:25 RDW Std Deviation 49.8 fL (36.4-46.3) H 05/12/19 19:25 RDW Coeff of Aspen 15.6 % (11.5-14.5) H 05/12/19 19:25 Plt Count 190 K/uL (130-400) 05/12/19 19:25 MPV 9.9 fL (7.4-10.4) 05/12/19 19:25 Immature Gran % (Auto) 0.2 % 05/12/19 19:25 Neut % (Auto) 60.0 % 05/12/19 19:25 Lymph % (Auto) 29.0 % 05/12/19 19:25 Addison % (Auto) 7.8 % 05/12/19 19:25 Eos % (Auto) 2.8 % 05/12/19 19:25 Baso % (Auto) 0.2 % 05/12/19 19:25 Immature Gran # (Auto) 0.01 K/uL (0.00-0.02) 05/12/19 19:25 Neut # (Auto) 3.80 K/uL (1.4-6.5) 05/12/19 19:25 Lymph # (Auto) 1.83 K/uL (1.2-3.4) 05/12/19 19:25 Addison # (Auto) 0.49 K/uL (0.11-0.59) 05/12/19 19:25 Eos # (Auto) 0.18 K/uL (0-0.5) 05/12/19 19:25 Baso # (Auto) 0.01 K/uL (0-0.2) 05/12/19 19:25 PT 11.1 Seconds (9.0-12.0) 05/12/19 19:25 INR 1.1 (0.9-1.1) 05/12/19 19:25 APTT 26.2 Seconds (21.0-31.0) 05/12/19 19:25 PTT Ratio 1.0 05/12/19 19:25 Sodium 144 mmol/L (136-145) 05/12/19 19:25 Potassium 3.3 mmol/L (3.5-5.1) L 05/12/19 19:25 Chloride 107 mmol/L (98-107) 05/12/19 19:25 Carbon Dioxide 34 mmol/L (21-32) H 05/12/19 19:25 Anion Gap 4.0 (3-11) 05/12/19 19:25 BUN 11 mg/dl (7-18) 05/12/19 19:25 Creatinine 0.76 mg/dl (0.6-1.2) 05/12/19 19:25 Est Cr Clr Drug Dosing 59.4 ml/min 05/12/19 19:25 Est GFR ( Amer) 86.5 05/12/19 19:25 Est GFR (Non-Af Amer) 74.6 05/12/19 19:25 BUN/Creatinine Ratio 14.0 (10-20) 05/12/19 19:25 Glucose 128 mg/dl (70-99) H 05/12/19 19:25 Lactate 2.0 mmol/L (0.4-2.0) 05/12/19 21:21 Calcium 10.2 mg/dl (8.5-10.1) H 05/12/19 19:25 Total Bilirubin 0.3 mg/dl (0.2-1) 05/12/19 19:25 AST 13 U/L (15-37) L 05/12/19 19:25 ALT 16 U/L (12-78) 05/12/19 19:25 Alkaline Phosphatase 116 U/L (45-117) 05/12/19 19:25 Total Protein 6.7 gm/dl (6.4-8.2) 05/12/19 19:25 Albumin 3.5 gm/dl (3.4-5.0) 05/12/19 19:25 Globulin 3.2 gm/dl (2.5-4.0) 05/12/19 19:25 Albumin/Globulin Ratio 1.1 (0.9-2) 05/12/19 19:25 Influenza Type A (PCR) Neg for Influ A (Neg) 05/12/19 19:24 Influenza Type B (PCR) Neg for Influ B (Neg) 05/12/19 19:24 Diagnostic Findings [place] [phone] XRay Report Patient: MARJORIE KNOWLES EAdmit Date: 05/12/19 MR#: [id number] Acct ID:[id number] [facility]: 1940[facility] Zip[facility] [place] [address] Age: 78Location: ED Sex: F Room/Bed: Att Phy:Diagnosis: SOB Maranda Phy: Faiza Costa, MDService Date: 05/12/19 Fam Phy:Interpreting Phy: Bull Kim MD Admit Phy: Ordering Phy: Barrera Knutson M.D. cc: ~ XR chest 1V portable CLINICAL HISTORY: Sepsis COMPARISON STUDY: Chest radiograph November 25, 2018. FINDINGS: Lung volumes are normal. Lungs are clear. There is no pneumothorax or pleural effusion. Cardiac size is normal. Mediastinal contours are normal. There is no evidence for pulmonary edema. Moderate osteoarthritis of the left glenohumeral joint is incidentally noted. IMPRESSION: No acute cardiopulmonary findings. ACT 112: Negative or not required by law. Electronically signed by: Bull Kim M.D. 05/12/2019 7:46 PM Dictated: 05/12/191944 Transcribed: 05/12/191944 Code Status & VTE Plan Code Status Full code VTE Prophylaxis Plan VTE Prophylaxis will be ordered: Yes PG Care Time/CCT Total # of Minutes Spent Total Time Spent with Patient: Total time spent is greater than 50% in coordination of care (as documented) at patient's floor/unit and/or counseling patient:
[2019-05-12] MEDS ORDERED: MAGNESIUM HYDROXIDE SUSP 30 ML UDC PO PRN (23:29)
[2019-05-12] MEDS ORDERED: ONDANSETRON INJ 2 MG/ML 2 ML VIAL IV PRN (23:29)
[2019-05-12] MEDS ORDERED: ALUMINUM/MAGNESIUM SUSP 30 ML UDC PO PRN (23:29)
[2019-05-12] MEDS ORDERED: ACETAMINOPHEN 325 MG TAB PO PRN (23:29)
[2019-05-12] MEDS ORDERED: POLYETHYLENE (MIRALAX) 17 GM PACK PO PRN (23:29)
[2019-05-12] MEDS ORDERED: LORazepam 0.5 MG TAB PO PRN (23:29)
[2019-05-13] MEDS ORDERED: clonazePAM 1 MG TAB PO ONE (00:15)
[2019-05-13] MEDS: DOXYCYCLINE HYCLATE 100 MG in DEXTROSE 5% 100 ML IV SCH ×2 (00:31→13:38)
[2019-05-13] MEDS: APIXABAN 5 MG TABLET PO SCH ×3 (00:32→20:25)
[2019-05-13] MEDS: PRAMIPEXOLE DIHYDROCHLO 0.5 MG TAB PO SCH ×2 (00:32→20:27)
[2019-05-13] MEDS: TRAZODONE HCL 100 MG TAB PO SCH ×2 (00:34→20:29)
[2019-05-13] MEDS: ASPIRIN 81 MG ECTAB PO SCH ×2 (00:34→20:26)
[2019-05-13] MEDS: lamoTRIgine 100 MG TAB PO SCH ×2 (00:35→20:27)
[2019-05-13] MEDS: ATORVASTATIN 40 MG TAB PO SCH ×2 (00:35→20:28)
[2019-05-13] MEDS: MONTELUKAST SODIUM 10 MG TABLET PO SCH ×2 (00:35→20:26)
[2019-05-13] MEDS: methylPREDNISolone 40 MG in SYRINGE 0 ML IV SCH ×3 (03:46→20:25)
[2019-05-13] MEDS: ALBUT/IPRATROP 3MG/0.5MG NEB 3 ML VIAL NEB SCH ×4 (07:25→19:24)
[2019-05-13] MEDS: BUDESONIDE 0.5 MG/2 ML VIAL (PULMICORT) NEB SCH ×2 (07:25→19:24)
[2019-05-13] MEDS: ESCITALOPRAM OXALATE 20 MG TAB PO SCH (08:07)
[2019-05-13] MEDS: guaiFENesin 600 MG TABCR PO SCH ×2 (08:07→20:29)
[2019-05-13] MEDS: GABAPENTIN 400 MG CAP PO SCH ×3 (08:07→20:29)
[2019-05-13] MEDS: ESCITALOPRAM OXALATE 10 MG TAB PO SCH (08:07)
[2019-05-13] MEDS: BuPROPion XL 150 MG TABCR PO SCH (08:08)
[2019-05-13] MEDS: PANTOprazole 40 MG TAB PO SCH (08:09)
[2019-05-13] MEDS: dilTIAZem HCL 240 MG CAPCR PO SCH (08:09)
[2019-05-13] MEDS ORDERED: TOCOPHERYL, DL-ALPHA 100 UNITS CAP PO SCH (09:00)
[2019-05-13] MEDS ORDERED: ZINC SULFATE 220 MG CAPSULE PO SCH (09:00)
[2019-05-13] MEDS ORDERED: MULTIVITAMIN TAB PO SCH (09:00)
[2019-05-13] MEDS ORDERED: CYANOCOBALAMIN (VITAMIN B-12) 2,500 MCG TAB.SUBL SL SCH (09:00)
[2019-05-13] MEDS ORDERED: CALCIUM 600MG + VIT D 400 IU TAB PO SCH (09:00)
[2019-05-13] MEDS ORDERED: CHOLECALCIFEROL 1,000 UNITS TAB PO SCH (09:00)
[2019-05-13] MEDS ORDERED: COUGH DROP (SUGAR FREE) LOZ 24 LOZ/1 BOX BUCCAL ONE (09:17)
--- NOTE | 2019-05-13 13:00 | Hospitalist Progress Note ---
Date of Service May 13, 2019 Assessment & Plan (1) COPD exacerbation: CXR on 05/12 showed no infiltrate. - Continue steroids, doxycycline, DuoNebs standing and PRN, budesonide, and guaifenesin. - Await sputum Gram stain and culture, though she is not making much sputum which she reports is normal for her. (2) Hypoxemia: Nasal cannula 2 L oxygen, titrate to keep pulse ox around 92%. - Monitor (3) Atrial fibrillation: Permanent. Presently rate-controlled, even with DuoNebs. - Continue apixaban, digoxin, and diltiazem (4) Depression: Anxiety with depression. - Continue bupropion, clonazepam, Lexapro, gabapentin, lamotrigine, lorazepam, and trazodone. (5) Rheumatoid arthritis: No specific treatment at this time, with no flares. - Continue tramadol (6) Restless legs syndrome: Continue pramipexole (7) Hyperlipidemia: Continue atorvastatin 40 mg at bedtime (8) Attention deficit disorder without hyperactivity: No treatment at this time. (9) DVT prophylaxis: On apixaban Subjective Feeling some better. Still with a cough, but the shortness of breath has improved. Reports no fevers/chills, chest pain, abdominal pain, nausea, or vomiting. Physical Exam Constitutional: WD/WN, vitals as above Eyes: EOM intact bilaterally; no conjunctival abnormality ENMT: external ear and nose normal, oropharynx normal Neck: trachea midline, no thyromegaly normal visual inspection Respiratory: no respiratory distress and no labored breathing Auscultation: + diminished lung sounds; no wheezes Cardiovascular: Rate/Rhythm: regular rate and + irregularly irregular Heart Sounds: normal S1 and normal S2 Extremities: no edema Gastrointestinal (Abdomen): Inspection/Auscultation: abdomen normal to inspection; abdomen not distended Musculoskeletal: no cyanosis or clubbing, extremities motor strength 5/5 Skin: no rashes, warm and dry Neurologic: moves all extremities and awake Psychiatric: Orientation: alert, oriented to person and cooperative Results & Data Vital Signs (Past 12 Hours) Vital Signs Temp Pulse Resp BP Pulse Ox 05/13/19 12:00 36.6 C 73 20 113/54 L 91 05/13/19 11:20 73 18 96 05/13/19 07:51 68 18 91 05/13/19 07:30 68 18 94 12/26/19 07:00 36.6 C 93 H 22 117/64 94 05/13/19 03:17 36.7 C 64 19 100/56 L 97 PG Care Time/CCT Total # of Minutes Spent Total Time Spent with Patient: Total time spent is greater than 50% in coordination of care (as documented) at patient's floor/unit and/or counseling patient:
[2019-05-13] MEDS: TRAMADOL HCL 50 MG TABLET PO PRN ×2 (15:32→22:31)
[2019-05-13] MEDS ORDERED: DIGOXIN 0.125 MG TAB PO SCH (16:00)
[2019-05-13] MEDS: DOXYCYCLINE HYCLATE 100 MG CAP PO SCH (20:25)
[2019-05-13] MEDS ORDERED: PSYLLIUM 58.6% POWDER PACKET PO SCH (21:00)
[2019-05-13] MEDS ORDERED: clonazePAM 1 MG TAB PO SCH (21:00)
[2019-05-14] MEDS: methylPREDNISolone 40 MG in SYRINGE 0 ML IV SCH ×2 (03:08→14:22)
[2019-05-14] MEDS: TRAMADOL HCL 50 MG TABLET PO PRN (04:33)
[2019-05-14] MEDS: BUDESONIDE 0.5 MG/2 ML VIAL (PULMICORT) NEB SCH (07:09)
[2019-05-14] MEDS: ALBUT/IPRATROP 3MG/0.5MG NEB 3 ML VIAL NEB SCH ×3 (07:09→15:08)
[2019-05-14 07:48] LABS: Hematocrit (blood only) 38.2 % (37-47); Hemoglobin 11.9 g/dL (12.0-16.0); Immature Granulocytes # (auto) 0.02 K/uL (0.00-0.02); Immature Granulocytes % (auto) 0.2 %; Lymphocytes # (auto) 1.11 K/uL (1.2-3.4); Lymphocytes % (auto) 8.8 %; Mean Corpuscular Hemoglobin 26.9 pg (25-34); Mean Corpuscular Hgb Conc 31.2 g/dL (32-36); Mean Corpuscular Volume 86.4 fL (80-100); Monocytes # (auto) 0.37 K/uL (0.11-0.59); Monocytes % (auto) 2.9 %; Neutrophils # (auto) 11.11 K/uL (1.4-6.5); Neutrophils % (auto) 88.1 %; Platelet Count 176 K/uL (130-400); RDW Standard Deviation 50.6 fL (36.4-46.3); Red Blood Count 4.42 M/uL (4.2-5.4); White Blood Count 12.61 K/uL (4.8-10.8)
[2019-05-14 08:27] LABS: BUN Creatinine Ratio 29.3 (10-20); Creatinine Clr Calc Pharmacy 60.4 ml/min; Est GFR (African American) 87.9; Est GFR (Non-African American) 75.8; Magnesium 1.5 mg/dl (1.8-2.4); Potassium 3.7 mmol/L (3.5-5.1)
[2019-05-14] MEDS: GABAPENTIN 400 MG CAP PO SCH ×2 (08:49→14:22)
[2019-05-14] MEDS: guaiFENesin 600 MG TABCR PO SCH (08:49)
[2019-05-14] MEDS: ESCITALOPRAM OXALATE 20 MG TAB PO SCH (08:50)
[2019-05-14] MEDS: ESCITALOPRAM OXALATE 10 MG TAB PO SCH (08:50)
[2019-05-14] MEDS: dilTIAZem HCL 240 MG CAPCR PO SCH (08:51)
[2019-05-14] MEDS: DOXYCYCLINE HYCLATE 100 MG CAP PO SCH (08:51)
[2019-05-14] MEDS: PANTOprazole 40 MG TAB PO SCH (08:51)
[2019-05-14] MEDS: APIXABAN 5 MG TABLET PO SCH (08:52)
[2019-05-14] MEDS: BuPROPion XL 150 MG TABCR PO SCH (08:52)
--- NOTE | 2019-05-14 17:29 | Discharge Summary ---
Date of Service May 14, 2019 Admission HPI Per Admitting Provider The patient is a 78-year-old female with a past medical history including severe COPD, atrial fibrillation, multifocal pneumonia, depression, CKD stage III, urinary urge incontinence, rheumatoid arthritis, restless leg syndrome, hyperlipidemia, ray nods syndrome, diabetes mellitus type 2, ADD, asthma and anxiety. She reports that she was more fatigued than usual, fell asleep during the afternoon at her daughter's house, and after awakening became more short of breath than her usual baseline. She denies any associated chest pain, lightheadedness, dizziness or headache. Principal Diagnosis COPD exacerbation Discharge Exam Constitutional WD/WN, vitals as above Eyes EOM intact bilaterally; no conjunctival abnormality ENMT external ear and nose normal, oropharynx normal Neck trachea midline, no thyromegaly normal visual inspection Respiratory no respiratory distress and no labored breathing Auscultation: + diminished lung sounds; no wheezes Cardiovascular Rate/Rhythm: regular rate and + irregularly irregular Heart Sounds: normal S1 and normal S2 Extremities: no edema Gastrointestinal (Abdomen) Inspection/Auscultation: abdomen normal to inspection; abdomen not distended Musculoskeletal no cyanosis or clubbing, extremities motor strength 5/5 Skin no rashes, warm and dry Neurologic moves all extremities and awake Psychiatric Orientation: alert, oriented to person and cooperative Discharge Data Allergies Allergy/AdvReac Type Severity Reaction Status Date / Time procaine Allergy Severe novacaine Verified 05/12/19 20:45 - anaphylaxis, mouth swelling, dyspnea fluticasone Allergy Intermediate chest pain Verified 05/12/19 20:45 (from Advair) salmeterol Allergy Intermediate chest pain Verified 05/12/19 20:45 (from Advair) chocolate flavor Allergy Mild rash Verified 05/12/19 20:45 Penicillins Allergy Unknown per Verified 05/12/19 20:45 allergy test (tolerated rocephin in the past) zolpidem AdvReac Intermediate sleep Verified 05/12/19 20:45 walking moxifloxacin AdvReac Mild N/V Verified 05/12/19 20:45 NSAIDS (Non-Steroidal AdvReac Mild advised to Verified 05/12/19 20:45 Anti-Inflamma avoid d/t ulcer hx azithromycin AdvReac throat Verified 05/12/19 20:45 burned, lost weight Consultations 05/12/19 20:34 ED Decision to Admit Stat 05/12/19 23:29 Consult Case Management - Discharge Planning Routine Hospital Course (1) COPD exacerbation: CXR on 05/12 showed no infiltrate. - Quickly did better on abx and steroids - Discharged on a short course of doxycycline and a tapering prednisone dose. Follow up as outpatient. (2) Hypoxemia: Nasal cannula 2 L oxygen, titrate to keep pulse ox around 92%. - On discharge, she decided she did not need any more O2, and took it off. Can use home noctural as needed. (3) Atrial fibrillation: Permanent. Presently rate-controlled, even with DuoNebs. - Continue apixaban, digoxin, and diltiazem (4) Depression: Anxiety with depression. - Continue bupropion, clonazepam, Lexapro, gabapentin, lamotrigine, lorazepam, and trazodone. (5) Rheumatoid arthritis: No specific treatment at this time, with no flares. - Continue tramadol (6) Restless legs syndrome: Continue pramipexole (7) Hyperlipidemia: Continue atorvastatin 40 mg at bedtime (8) Attention deficit disorder without hyperactivity: No treatment at this time. (9) DVT prophylaxis: On apixaban Total Time Total Time Spent Total Time Spent (In Minutes): 35 Discharge Plan Discharge Items Patient Disposition: Home - Home Health Services Reason For Visit: COPD EXACERBATION Discharge Diagnosis: COPD exacerbation Activity: Resume your previous activity Non-emergency contact: Primary Care Provider Call non-emergency contact if: your symptoms worsen and your temperature is above 101 Follow-up/Referrals: Faiza Costa MD [Primary Care Provider] - Diet: Heart Healthy Addtl Attending Provider Instructions: You were admitted to the hospital with a COPD exacerbation. We gave you antibiotics and steroids, and you are feeling better. We are discharging you on a short course of antibiotics as well as a steroid taper. Please follow up with your PCP in the next week. Pending Studies at Discharge: No Stand-Alone Forms: My [employer], Smoking Cessation Medications and DC Order Prescriptions: New doxycycline hyclate 100 mg Capsule 100 mg PO BID Qty: 7 RF: 0 prednisone 10 mg tablet 10 mg PO DAILY Qty: 30 RF: 0 codeine-guaifenesin 10-100 mg/5 mL liquid 5 ml PO Q6H PRN (Reason: allergy symptoms) Qty: 118 RF: 0 tramadol 50 mg tablet 50 mg PO BID PRN (Reason: pain) Qty: 10 RF: 0 Continued atorvastatin 40 mg tablet 40 mg PO HS Qty: 90 RF: 3 lamotrigine [Lamictal] 150 mg tablet 150 mg PO HS Qty: 30 RF: 5 pramipexole [Mirapex] 0.5 mg tablet 0.5 mg PO HS Qty: 90 RF: 3 aspirin 81 mg tablet,delayed release (DR/EC) 81 mg PO HS Qty: 30 RF: 5 digoxin 125 mcg (0.125 mg) tablet 125 mcg PO QAM Qty: 30 RF: 5 diltiazem HCl [DILT-XR] 240 mg capsule,ext.rel 24h degradable 240 mg PO QAM Qty: 30 RF: 5 vitamin E 200 unit capsule 200 units PO DAILY Qty: 30 RF: 5 montelukast 10 mg tablet 10 mg PO HS Qty: 30 RF: 5 Eliquis 5 mg tablet 5 mg PO BID Qty: 60 RF: 5 calcium carbonate-vitamin D3 [Calcium 600 + D(3)] 600 mg(1,500mg) -400 unit tablet 1 tab PO BID Qty: 60 RF: 5 gabapentin 400 mg capsule 400 mg PO TID Qty: 90 RF: 2 gabapentin 400 mg capsule 400 mg PO TID Qty: 90 RF: 1 escitalopram oxalate [Lexapro] 5 mg tablet 5 mg PO QAM Qty: 90 RF: 1 bupropion HCl [Wellbutrin XL] 150 mg tablet extended release 24 hr 150 mg PO QAM RF: 0 cyanocobalamin (vitamin B-12) 2,500 mcg tablet 2,500 mcg PO DAILY RF: 0 zinc gluconate 50 mg tablet 50 mg PO DAILY RF: 0 cholecalciferol (vitamin D3) 2,000 unit tablet 2,000 units PO DAILY Qty: 30 RF: 0 lorazepam 0.5 mg tablet 0.5 mg PO Q6H PRN (Reason: anxiety) RF: 0 Breo Ellipta 200-25 mcg/dose blister with device 1 puffs INH DAILY RF: 0 clonazepam 1 mg tablet 1 mg PO HS RF: 0 tramadol 50 mg Tablet 50 mg PO QID PRN (Reason: Pain, Moderate) Qty: 30 RF: 0 multivitamin Tablet 1 tab PO QAM RF: 0 pantoprazole [Protonix] 40 mg tablet,delayed release (DR/EC) 40 mg PO QAM RF: 0 trazodone 150 mg tablet 225 mg PO HS RF: 0 albuterol sulfate [Ventolin HFA] 90 mcg/actuation HFA aerosol inhaler 2 puff Inhalation Q4 PRN (Reason: Shortness Of Breath Or Wheezing) RF: 0 escitalopram oxalate [Lexapro] 20 mg tablet 20 mg PO QAM RF: 0 Metamucil 3.4 gram/5.4 gram Powder 1 tbsp PO PM RF: 0 ipratropium-albuterol 0.5 mg-3 mg(2.5 mg base)/3 mL Solution For Nebulization 3 ml NEB Q6H PRN (Reason: shortness of breath or wheezing) Qty: 90 RF: 1 Discharge Orders: Discharge Order (Routine); Ordered 05/14/19 Ordered By: Juan Lopez Admission Data Admit Date/Time: 05/12/19 22:32 Attending Provider: Juan Lopez Admit Provider: Miles Medina Primary Care Provider: Faiza Costa Other Providers: Juan Lopez ; Miles Medina Other Interventions: Discharge Summary Assessment (RN) Last Done: 05/14/19 14:12 DC Date/Time DO NOT enter until pt leaves facility: 05/14/19 16:10
== END 2019-05-14 16:10 | disposition home health service (06) | DRG 192 ==
LOC: ED 18:51 → SUATTDRO 22:32 → 2S 22:32 → 2N 05-13 15:15

== ENCOUNTER 2020-03-17 07:31 | Inpatient (IN) ==
--- NOTE | 2020-02-16 14:10 | PAT Medication Instructions ---
Medication Instructions Date of Service February 16, 2020 Home Medications Medication Instructions Recorded pramipexole 0.5 mg tablet 0.5 mg PO HS #90 tab 03/23/19 tramadol 50 mg PO BID PRN #10 tab 05/14/19 albuterol sulfate 90 mcg/actuation 2 puff INHALATION Q4 PRN #3 inhaler 05/25/19 aerosol inhaler ipratropium 0.5 mg-albuterol 3 mg 3 ml NEB Q6H PRN #90 ml 05/26/19 (2.5 mg base)/3 mL nebulization soln nebulizer accessories #2 ea 05/26/19 nebulizers #1 ea 05/26/19 codeine 10 mg-guaifenesin 100 mg/5 5 ml PO Q6H PRN #118 ml 08/11/ mL oral liquid aspirin 81 mg tablet,delayed 81 mg PO HS #30 tab 08/31/19 release cholecalciferol (vitamin D3) 50 2,000 units PO QAM #30 tab 08/31/19 mcg (2,000 unit) tablet multivitamin 1 tab PO QAM #30 tab 08/31/19 potassium chloride 10 mEq 10 meq PO DAILY #30 tab 08/31/19 tablet,extended release(part/cryst) escitalopram oxalate 5 mg tablet 5 mg PO QAM #90 tab 09/22/19 apixaban 5 mg tablet 5 mg PO BID #60 tab 10/26/19 calcium carbonate 600 mg (1,500 1 tab PO BID #60 tab 10/26/19 mg)-vitamin D3 400 unit tablet digoxin 125 mcg (0.125 mg) tablet 125 mcg PO QAM #30 tab 10/26/19 diltiazem HCl 240 mg 240 mg PO QAM #30 cap 10/26/19 capsule,extended release 24 hr, controlled montelukast 10 mg tablet 10 mg PO HS #30 tab 10/26/19 vitamin E 200 unit capsule 200 units PO QAM #30 cap 10/26/19 atorvastatin 40 mg tablet 40 mg PO HS #90 tab 11/16/19 escitalopram oxalate 20 mg tablet 20 mg PO DAILY #30 tab 11/16/19 gabapentin 400 mg capsule 400 mg PO BID #60 cap 11/16/19 trazodone 150 mg tablet 225 mg PO HS #45 tab 11/16/19 loratadine 10 mg tablet 10 mg PO DAILY #30 tab 11/24/19 triamcinolone acetonide 0.1 % 1 appln TOP BID #30 gm 11/24/19 topical cream lamotrigine 150 mg tablet 150 mg PO HS #30 tab 11/26/19 Oxygen Home #1 ea 12/10/19 cyanocobalamin (vitamin B-12) 2,500 mcg PO DAILY #30 tab 12/24/19 2,500 mcg tablet pantoprazole 40 mg tablet,delayed 40 mg PO QAM #30 tab 12/24/19 release zinc gluconate 50 mg tablet 50 mg PO QAM #30 tab 01/21/20 pramipexole 0.5 mg tablet 0.5 mg PO HS tramadol 50 mg PO BID PRN albuterol sulfate 90 mcg/actuation aerosol inhaler 2 puff INHALATION Q4 PRN ipratropium 0.5 mg-albuterol 3 mg (2.5 mg base)/3 mL nebulization soln 3 ml NEB Q6H PRN prednisone 20 mg PO UD PRN codeine 10 mg-guaifenesin 100 mg/5 mL oral liquid 5 ml PO Q6H PRN aspirin 81 mg tablet,delayed release 81 mg PO HS cholecalciferol (vitamin D3) 50 mcg (2,000 unit) tablet 2,000 units PO QAM multivitamin 1 tab PO QAM potassium chloride 10 mEq tablet,extended release(part/cryst) 10 meq PO DAILY escitalopram oxalate 5 mg tablet 5 mg PO QAM apixaban 5 mg tablet 5 mg PO BID calcium carbonate 600 mg (1,500 mg)-vitamin D3 400 unit tablet 1 tab PO BID digoxin 125 mcg (0.125 mg) tablet 125 mcg PO QAM diltiazem HCl 240 mg capsule,extended release 24 hr, controlled 240 mg PO QAM montelukast 10 mg tablet 10 mg PO HS vitamin E 200 unit capsule 200 units PO QAM atorvastatin 40 mg tablet 40 mg PO HS escitalopram oxalate 20 mg tablet 20 mg PO DAILY gabapentin 400 mg capsule 400 mg PO BID trazodone 150 mg tablet 225 mg PO HS loratadine 10 mg tablet 10 mg PO DAILY triamcinolone acetonide 0.1 % topical cream 1 appln TOP BID lamotrigine 150 mg tablet 150 mg PO HS cyanocobalamin (vitamin B-12) 2,500 mcg tablet 2,500 mcg PO DAILY pantoprazole 40 mg tablet,delayed release 40 mg PO QAM zinc gluconate 50 mg tablet 50 mg PO QAM dextroamphetamine-amphetamine [Adderall XR] 20 mg PO QAM Continue as directed prednisone 20 mg PO UD PRN (if needed) ASK your prescriber and surgeon apixaban 5 mg tablet 5 mg PO BID (in order to get spinal anesthesia- Apixaban needs held x 72 hours) STOP taking 2 weeks before surgery vitamin E 200 unit capsule 200 units PO QAM zinc gluconate 50 mg tablet 50 mg PO QAM STOP taking 24 hours before surgery pramipexole 0.5 mg tablet 0.5 mg PO HS triamcinolone acetonide 0.1 % topical cream 1 appln TOP BID DO NOT take the morning of surgery codeine 10 mg-guaifenesin 100 mg/5 mL oral liquid 5 ml PO Q6H PRN cholecalciferol (vitamin D3) 50 mcg (2,000 unit) tablet 2,000 units PO QAM multivitamin 1 tab PO QAM potassium chloride 10 mEq tablet,extended release(part/cryst) 10 meq PO DAILY calcium carbonate 600 mg (1,500 mg)-vitamin D3 400 unit tablet 1 tab PO BID loratadine 10 mg tablet 10 mg PO DAILY cyanocobalamin (vitamin B-12) 2,500 mcg tablet 2,500 mcg PO DAILY dextroamphetamine-amphetamine [Adderall XR] 20 mg PO QAM Take morning of surgery With a small sip of water, OTHERWISE NOTHING TO EAT OR DRINK AFTER MIDNIGHT: tramadol 50 mg PO BID PRN (okay to take up to 4 hours prior to surgery if needed) albuterol sulfate 90 mcg/actuation aerosol inhaler 2 puff INHALATION Q4 PRN (use if needed; please bring with you to hospital day of surgery if possible) ipratropium 0.5 mg-albuterol 3 mg (2.5 mg base)/3 mL nebulization soln 3 ml NEB Q6H PRN (if needed) escitalopram oxalate 5 mg tablet 5 mg PO QAM digoxin 125 mcg (0.125 mg) tablet 125 mcg PO QAM diltiazem HCl 240 mg capsule,extended release 24 hr, controlled 240 mg PO QAM escitalopram oxalate 20 mg tablet 20 mg PO DAILY gabapentin 400 mg capsule 400 mg PO BID pantoprazole 40 mg tablet,delayed release 40 mg PO QAM Take evening before surgery tramadol 50 mg PO BID PRN (if needed) albuterol sulfate 90 mcg/actuation aerosol inhaler 2 puff INHALATION Q4 PRN (if needed) ipratropium 0.5 mg-albuterol 3 mg (2.5 mg base)/3 mL nebulization soln 3 ml NEB Q6H PRN (if needed) codeine 10 mg-guaifenesin 100 mg/5 mL oral liquid 5 ml PO Q6H PRN (if needed) aspirin 81 mg tablet,delayed release 81 mg PO HS calcium carbonate 600 mg (1,500 mg)-vitamin D3 400 unit tablet 1 tab PO BID montelukast 10 mg tablet 10 mg PO HS atorvastatin 40 mg tablet 40 mg PO HS gabapentin 400 mg capsule 400 mg PO BID trazodone 150 mg tablet 225 mg PO HS lamotrigine 150 mg tablet 150 mg PO HS Other Notes If you have any questions please call us at [phone] or [phone] or [phone] or [phone]
--- NOTE | 2020-02-17 10:15 | Anesthesiology Consultation ---
Date of Service February 17, 2020 Assessment & Plan (1) Encounter for pre-operative examination: Chart Review Chart Review: Pending: Refer to Additional Notes / Consult section (pending surgeon ordered PCP/cardio clearance and preop Covid testing ) and Patient seen in Pre Admission Testing Awaiting surgeon ordered PCP (03/07) and cardio (03/10) clearances NOVOCAINE ALLERGY- ANAPHYLAXIS - SURGEON'S OFFICE AND OR AWARE VIA OR SHEET. Per PAT appt on 02/17/20, resides in [facility]. Denies any recent travel. No known Covid positive contacts or Covid related symptoms. Educated patient to follow up with surgeon's office regarding Covid testing. Educated on importance of self quarantining, social distancing and wearing mask in public both for the patient and household contacts. Teaching & Discussion Pre-Anesthesia Teaching/Discussion Notes: Instructed NPO after midnight before surgery,except medications with 15 cc of water. Medication instructions provided according to the PAT guidelines. History Surgery Operation Date: 03/17/20 07:30 Proposed Procedures p Left Ankle Triple Arthrodesis with Autograft, - Michel Claire DO s Percutaneous Tendoachiles Lengthening, Calcaneal Autograft - Michel Claire DO Height/Weight Height: 5 ft 5 in Weight: 79.7 kg Allergies Allergy/AdvReac Type Severity Reaction Status Date / Time procaine Allergy Severe novacaine Verified 02/09/20 12:11 - anaphylaxis, mouth swelling, dyspnea azithromycin Allergy Intermediate throat Verified 02/09/20 12:11 burned, lost weight fluticasone Allergy Intermediate chest pain Verified 02/09/20 12:11 (from Advair) salmeterol Allergy Intermediate chest pain Verified 02/09/20 12:11 (from Advair) chocolate flavor Allergy Mild rash Verified 02/09/20 12:11 Penicillins Allergy Unknown per Verified 02/09/20 12:11 allergy test (tolerated rocephin in the past) zolpidem AdvReac Intermediate sleep Verified 02/09/20 12:11 walking moxifloxacin AdvReac Mild N/V Verified 02/09/20 12:11 NSAIDS (Non-Steroidal AdvReac Mild advised to Verified 02/09/20 12:11 Anti-Inflamma avoid d/t ulcer hx Additional Notes: OR office and surgeon's office made aware of procaine/novacaine allergy Medications Home Medications Medication Instructions Recorded Confirmed Last Taken tramadol 50 mg PO BID PRN #10 tab 05/14/19 02/09/20 05/04/19 albuterol sulfate 90 mcg/actuation 2 puff INHALATION Q4 PRN #3 inhaler 05/25/19 02/09/20 11/11/19 21:00 aerosol inhaler ipratropium 0.5 mg-albuterol 3 mg 3 ml NEB Q6H PRN #90 ml 05/26/19 02/09/20 05/18/19 (2.5 mg base)/3 mL nebulization soln nebulizer accessories #2 ea 05/26/19 02/09/20 Unknown nebulizers #1 ea 05/26/19 02/09/20 Unknown prednisone 20 mg PO UD PRN 07/28/19 02/09/20 05/12/19 codeine 10 mg-guaifenesin 100 mg/5 5 ml PO Q6H PRN #118 ml 08/12/19 02/09/20 Unknown mL oral liquid escitalopram oxalate 5 mg tablet 5 mg PO QAM #90 tab 09/22/19 02/09/20 11/11/19 08:00 apixaban 5 mg tablet 5 mg PO BID #60 tab 10/26/19 02/09/20 11/09/19 08:00 calcium carbonate 600 mg (1,500 1 tab PO BID #60 tab 10/26/19 02/09/20 11/11/19 21:00 mg)-vitamin D3 400 unit tablet digoxin 125 mcg (0.125 mg) tablet 125 mcg PO QAM #30 tab 10/26/19 02/09/20 11/11/19 07:00 diltiazem HCl 240 mg 240 mg PO QAM #30 cap 10/26/19 02/09/20 11/11/19 08:00 capsule,extended release 24 hr, controlled montelukast 10 mg tablet 10 mg PO HS #30 tab 10/26/19 02/09/20 11/11/19 21:00 vitamin E 200 unit capsule 200 units PO QAM #30 cap 10/26/19 02/09/20 11/11/19 08:00 atorvastatin 40 mg tablet 40 mg PO HS #90 tab 11/16/19 02/09/20 Unknown escitalopram oxalate 20 mg tablet 20 mg PO DAILY #30 tab 11/16/19 02/09/20 Unknown gabapentin 400 mg capsule 400 mg PO BID #60 cap 11/16/19 02/09/20 Unknown trazodone 150 mg tablet 225 mg PO HS #45 tab 11/16/19 02/09/20 Unknown loratadine 10 mg tablet 10 mg PO DAILY #30 tab 11/24/19 02/09/20 Unknown triamcinolone acetonide 0.1 % 1 appln TOP BID #30 gm 11/24/19 02/09/20 Unknown topical cream lamotrigine 150 mg tablet 150 mg PO HS #30 tab 11/26/19 02/09/20 Unknown Oxygen Home #1 ea 12/10/19 02/09/20 Unknown cyanocobalamin (vitamin B-12) 2,500 mcg PO DAILY #30 tab 12/24/19 02/09/20 Unknown 2,500 mcg tablet pantoprazole 40 mg tablet,delayed 40 mg PO QAM #30 tab 12/24/19 02/09/20 Unknown release zinc gluconate 50 mg tablet 50 mg PO QAM #30 tab 01/21/20 02/09/20 Unknown dextroamphetamine-amphetamine 20 mg PO QAM 02/09/20 02/09/20 Unknown [Adderall XR] aspirin 81 mg tablet,delayed 81 mg PO HS #30 tab 02/17/20 Unknown release cholecalciferol (vitamin D3) 50 2,000 unit PO QAM #30 tab 02/17/20 Unknown mcg (2,000 unit) tablet multivitamin 1 tab PO QAM #30 tab 02/17/20 Unknown potassium chloride 10 mEq 10 meq PO DAILY #30 tab 02/17/20 Unknown tablet,extended release(part/cryst) pramipexole 0.5 mg tablet 0.5 mg PO HS #90 tab 02/17/20 Unknown Past Medical History Medical History (Updated 02/17/20 @ 15:21 by Angy Leonard PA-C) ADHD Stable Anemia Anxiety disorder Well controlled- follows with psych Asthma stable Atrial fibrillation paroxysmal Cancer skin cancer (forehead)- removed Chronic obstructive pulmonary disease stable CKD (chronic kidney disease) stage 3, GFR 30-59 ml/min Depression Esophageal stenosis Stable- usually drinks while eating to keep food moving - no recent choking Glaucoma left eye Hearing deficit b/l HERRERA Hyperlipidemia Incontinence of urine Lumbar stenosis with neurogenic claudication On home oxygen therapy 3-4L N/C at hs Peptic ulcer disease Raynaud's disease Restless leg syndrome Rheumatoid arthritis (02/25/13) Pt unsure if arthritis is OA vs RA- has seen rheum in the past and told different diagnosis Exercise / Class Metabolic Activity III < 4 Walking/Shop/Light housework (one flight of stairs- mild SOB, no chest pain ) Past Family History Family History Family/Other Cancer Coronary heart disease Heart disease Hypertension Brother Benign familial tremor Prostate cancer Father Benign familial tremor Mother Malignant melanoma Aunt Rheumatoid arthritis Denies family history of Ovarian cancer Myocardial infarction Breast cancer Colorectal cancer Past Surgical History Surgical History Fusion of spine lumbar x2--last 12/2018 H/O elbow surgery bilateral H/O thumb surgery right H/O toe surgery left foot History of appendectomy History of colonoscopy History of discectomy lumbar History of esophagogastroduodenoscopy (EGD) History of open reduction and internal fixation (ORIF) procedure right ankle History of surgical removal of skin lesion History of tonsillectomy History of total hip arthroplasty right hip History of total knee replacement bilateral; right TKA: 05/22/17: SAB x1 at L3-L4 + PNB at [facility] S/P ankle arthrodesis right ankle S/P foot surgery, left removal of bone spur S/P hardware removal right ankle S/P laparotomy removed adhesions to relieve bowel strangulation S/P AMANDA (total abdominal hysterectomy) Social History Smoking Status: Former smoker tobacco type: cigarettes Do You Dip or Chew Tobacco: No Smoking End Date: 15 MONTHS AGO Hx Alcohol Use: Yes Alcohol type: beer alcohol intake frequency: a few times a month Hx Substance Use: No substance use type: does not use Substance Use Type Other:: lorazepam/percocet prescribed Last Used Substance: Days (ago) Review of Systems Hx of blood transfusion- s/p surgery Patient denies chest pain, shortness of breath at rest, cough, wheezing, palpitations. No hx of seizures, stroke, [place], apnea/snoring. No hx of blood clots Physical Exam Vital Signs VITALS BP 125/63 P 82 TEMP 98.4 SP02 95% RESP 16 Constitutional no acute distress ENMT Mouth: no TMJ clicking Thyromental Distance: > or= 3.5 Finger Breadths (3.5) Mallampati Class: II (smaller airway ) Full dentures top and bottom Neck + limited neck extension (moderate to severe ) Respiratory normal respiratory effort; no respiratory distress Auscultation: lungs clear to auscultation bilaterally; no wheezes Cardiovascular Rate/Rhythm: regular rate and regular rhythm Heart Sounds: no murmur Vessels: no carotid bruit Musculoskeletal Spine: + pain with cervical ROM Neurologic moves all extremities Psychiatric Orientation: alert Testing Laboratory Results 02/17/20 10:39 02/17/20 10:39 PT 11.1 Seconds (9.0-12.0) 02/17/20 10:39 INR 1.1 (0.9-1.1) 02/17/20 10:39 APTT 27.3 Seconds (21.0-31.0) 02/17/20 10:39 Urine Color Yellow 02/17/20 Unknown Urine Appearance Cloudy (Clear) A 02/17/20 Unknown Urine pH 5.0 (4.5-7.5) 02/17/20 Unknown Ur Specific [place] 1.020 (1.000-1.030) 02/17/20 Unknown Urine Protein Negative (Negative) 02/17/20 Unknown Urine Glucose (UA) Negative (Negative) 02/17/20 Unknown Urine Ketones Negative (Negative) 02/17/20 Unknown Urine Nitrite Negative (Negative) 02/17/20 Unknown Ur Leukocyte Esterase 2+ (Negative) H 02/17/20 Unknown Urine WBC (Auto) 10-30 /hpf (0-5) H 02/17/20 Unknown Urine RBC (Auto) 0-4 /hpf (0-4) 02/17/20 Unknown U Hyaline Cast (Auto) 1-5 /lpf (0-5) 02/17/20 Unknown U Epithel Cells (Auto) >30 /lpf (0-5) H 02/17/20 Unknown Urine Bacteria (Auto) Negative (Negative) 02/17/20 Unknown Anemia - chronic and stable Electrocardiogram Date: 02/17/20 Findings: + NSR @ (83) Nonspecific ST abnormality. When compared to EKG from 05/12/19- PACs are no longer present. Chest X-Ray Date: 07/26/19 Findings: + NAD Cervical Spine Date: 02/17/20 No evidence for cervical spine instability during flexion or extension. Severe multilevel degenerative changes within the cervical spine. Other Testing Holter monitor 06/03/19= rhythm is SR. Average HR 67 bpm. Minimum HR 51 bpm. Max HR 101 bpm. No significant pauses or AV block noted. Normal [place], QRS, QT intervals. Occ isolated, non conducted and couplet APDs noted, Isolated nonsustained episodes of SVT/ectopic atrial runs seen. Occ isolated and couplet VPDs noted. No complex ventricular arrhythmias.
--- NOTE | 2020-02-17 11:30 | XRay Report ---
LATERAL CERVICAL SPINE RADIOGRAPHS WITH FLEXION AND EXTENSION CLINICAL HISTORY: preop- RA- 2-3 view- lateral view- flex,ext, neut COMPARISON STUDY: Cervical spine radiographs August 26, 2016. Cervical spine MRI May 18, 2008. FINDINGS: There is no evidence for cervical spine instability during flexion or extension. Severe mul tilevel facet arthrosis with fusion across multiple facet joints is noted. Note is also made of multi level disc space narrowing with osteophytosis within the cervical spine. No fracture is noted. IMPRESSION: 1. No evidence for cervical spine instability during flexion or extension. 2. Severe multilevel degenerative changes within the cervical spine. ACT 112: Negative or not required by law. Electronically signed by: Bull Kim M.D. 02/17/2020 11:28 AM
[2020-02-17 11:59] LABS: Basophils # (auto) 0.02 K/uL (0-0.2); Basophils % (auto) 0.3 %; Eosinophils # (auto) 0.12 K/uL (0-0.5); Hematocrit (blood only) 38.2 % (37-47); Hemoglobin 11.9 g/dL (12.0-16.0); Immature Granulocytes # (auto) 0.02 K/uL (0.00-0.02); Immature Granulocytes % (auto) 0.3 %; Lymphocytes % (auto) 29.7 %; Mean Corpuscular Hemoglobin 27.7 pg (25-34); Mean Corpuscular Hgb Conc 31.2 g/dL (32-36); Mean Platelet Volume 10.1 fL (7.4-10.4); Monocytes # (auto) 0.56 K/uL (0.11-0.59); Monocytes % (auto) 9.2 %; Neutrophils # (auto) 3.54 K/uL (1.4-6.5); Neutrophils % (auto) 58.5 %; Platelet Count 204 K/uL (130-400); RDW Coefficient of Variation 14.6 % (11.5-14.5); RDW Standard Deviation 47.5 fL (36.4-46.3); Red Blood Count 4.29 M/uL (4.2-5.4); White Blood Count 6.06 K/uL (4.8-10.8)
[2020-02-17 12:04] LABS: Appearance Urine Cloudy (Clear); Bacteria Urine Automated Negative (Negative); Bilirubin Urine Negative (Negative); Blood Urine Negative (Negative); Color Urine Yellow; Epithelial Cell Urine Auto >30 /lpf (0-5); Glucose Urine UA Negative (Negative); Ketones Urine Negative (Negative); Leukocyte Esterase Urine 2+ (Negative); Nitrite Urine Negative (Negative); Protein Urine Negative (Negative); RBC Urine Automated 0-4 /hpf (0-4); Urobilinogen Urine Negative (Negative)
[2020-02-17 12:09] LABS: BUN Creatinine Ratio 22.4 (10-20); Creatinine Clr Calc Pharmacy 64.1 ml/min; Est GFR (African American) 90.2; Est GFR (Non-African American) 77.8; Potassium 4.1 mmol/L (3.5-5.1)
[2020-02-17 12:13] LABS: INR 1.1 (0.9-1.1); Partial Thromboplastin Time 27.3 Seconds (21.0-31.0); Prothrombin Time 11.1 Seconds (9.0-12.0)
--- NOTE | 2020-02-18 05:56 | Electrocardiogram Report ---
Test Reason : Blood Pressure : / mmHG Vent. Rate : 083 BPM Atrial Rate : 083 BPM P-R Int : 158 ms QRS Dur : 090 ms QT Int : 350 ms P-R-T Axes : 079 068 079 degrees QTc Int : 411 ms Normal sinus rhythm Nonspecific ST abnormality Abnormal ECG When compared with ECG of 12-MAY-2019 19:06, Premature atrial complexes are no longer Present Confirmed by Julio Cantu ([id number]) on 02/18/2020 5:56:13 AM Referred By: Michel Claire Confirmed By:Julio Cantu
--- NOTE | 2020-03-16 16:37 | History & Physical Report ---
Date of Service March 16, 2020 Assessment & Plan (1) Osteoarthritis of ankle, left: Schedule a Left Ankle Triple Arthrodesis with Autograft, Percutaneous Tendoachilles Lengthening, Calcaneal Autograft harvest for 03.17.2020. All potential risks, benefits, complications, alternatives, and rehab have been discussed with the patient and she wishes to proceed. Plan for restarting Eliquis for post op DVT prophylaxis. (2) Pes planus of left foot: (3) Achilles tendon contracture, left: History of Present Illness Chief Complaint: left ankle pain and deformity Primary Care Provider: Faiza Costa MD This is a patient with chronic left hindfoot pain and worsening pes planus deformity. She was treated conservatively for hindfoot DJD however has failed all tx's. She is now being set up for surgical tx. Allergies Allergy/AdvReac Type Severity Reaction Status Date / Time procaine Allergy Severe novacaine Verified 03/07/20 10:17 - anaphylaxis, mouth swelling, dyspnea azithromycin Allergy Intermediate throat Verified 03/07/20 10:17 burned, lost weight fluticasone Allergy Intermediate chest pain Verified 03/07/20 10:17 (from Advair) salmeterol Allergy Intermediate chest pain Verified 03/07/20 10:17 (from Advair) chocolate flavor Allergy Mild rash Verified 03/07/20 10:17 Penicillins Allergy Unknown per Verified 03/07/20 10:17 allergy test (tolerated rocephin in the past) zolpidem AdvReac Intermediate sleep Verified 03/07/20 10:17 walking moxifloxacin AdvReac Mild N/V Verified 03/07/20 10:17 NSAIDS (Non-Steroidal AdvReac Mild advised to Verified 03/07/20 10:17 Anti-Inflamma avoid d/t ulcer hx Home Medications Home Medications Medication Instructions Recorded Confirmed Type tramadol 50 mg PO BID PRN #10 tab 05/14/19 03/07/20 Rx albuterol sulfate 90 mcg/actuation 2 puff INHALATION Q4 PRN #3 inhaler 05/25/19 03/07/20 Rx aerosol inhaler ipratropium 0.5 mg-albuterol 3 mg 3 ml NEB Q6H PRN #90 ml 05/26/19 03/07/20 Rx (2.5 mg base)/3 mL nebulization soln nebulizer accessories #2 ea 05/26/19 03/07/20 Rx nebulizers #1 ea 05/26/19 03/07/20 Rx prednisone 20 mg PO UD PRN 07/28/19 03/07/20 History codeine 10 mg-guaifenesin 100 mg/5 5 ml PO Q6H PRN #118 ml 08/12/19 03/07/20 Rx mL oral liquid apixaban 5 mg tablet 5 mg PO BID #60 tab 10/26/19 03/07/20 Rx calcium carbonate 600 mg (1,500 1 tab PO BID #60 tab 10/26/19 03/07/20 Rx mg)-vitamin D3 400 unit tablet atorvastatin 40 mg tablet 40 mg PO HS #90 tab 11/16/19 03/07/20 Rx escitalopram oxalate 20 mg tablet 20 mg PO DAILY #30 tab 11/16/19 03/07/20 Rx gabapentin 400 mg capsule 400 mg PO BID #60 cap 11/16/19 03/07/20 Rx trazodone 150 mg tablet 225 mg PO HS #45 tab 11/16/19 03/07/20 Rx loratadine 10 mg tablet 10 mg PO DAILY #30 tab 11/24/19 03/07/20 Rx triamcinolone acetonide 0.1 % 1 appln TOP BID #30 gm 11/24/19 03/07/20 Rx topical cream lamotrigine 150 mg tablet 150 mg PO HS #30 tab 11/26/19 03/07/20 Rx Oxygen Home #1 ea 12/10/19 03/07/20 Rx cyanocobalamin (vitamin B-12) 2,500 mcg PO DAILY #30 tab 12/24/19 03/07/20 Rx 2,500 mcg tablet pantoprazole 40 mg tablet,delayed 40 mg PO QAM #30 tab 12/24/19 03/07/20 Rx release zinc gluconate 50 mg tablet 50 mg PO QAM #30 tab 01/21/20 03/07/20 Rx aspirin 81 mg tablet,delayed 81 mg PO HS #30 tab 02/17/20 03/07/20 Rx release cholecalciferol (vitamin D3) 50 2,000 unit PO QAM #30 tab 02/17/20 03/07/20 Rx mcg (2,000 unit) tablet multivitamin 1 tab PO QAM #30 tab 02/17/20 03/07/20 Rx potassium chloride 10 mEq 10 meq PO DAILY #30 tab 02/17/20 03/07/20 Rx tablet,extended release(part/cryst) pramipexole 0.5 mg tablet 0.5 mg PO HS #90 tab 02/17/20 03/07/20 Rx dextroamphetamine-amphetamine ER 30 mg PO DAILY 03/03/20 03/07/20 History 30 mg 24hr capsule,extend release psyllium seed (sugar) oral powder 1 tbsp PO DAILY 03/03/20 03/07/20 History digoxin 125 mcg (0.125 mg) tablet 125 mcg PO QAM #30 tab 03/15/20 Rx diltiazem HCl 240 mg 240 mg PO QAM #30 cap 03/15/20 Rx capsule,extended release 24 hr, controlled escitalopram oxalate 5 mg tablet 5 mg PO QAM #90 tab 03/15/20 Rx montelukast 10 mg tablet 10 mg PO HS #30 tab 03/15/20 Rx vitamin E 200 unit capsule 200 unit PO QAM #30 cap 03/15/20 Rx Past Med/Surg History Medical History (Updated 03/16/20 @ 16:31 by Giovanni More PA-C) ADHD Stable Anemia Anxiety disorder Well controlled- follows with psych Asthma stable Atrial fibrillation paroxysmal CAD (coronary artery disease) Mild- luminal irregularities only on 2003 cardiac cath Cancer skin cancer (forehead)- removed Chronic obstructive pulmonary disease stable CKD (chronic kidney disease) stage 3, GFR 30-59 ml/min Depression Esophageal stenosis Stable- usually drinks while eating to keep food moving - no recent choking Glaucoma left eye Hearing deficit b/l HERRERA Hyperlipidemia Incontinence of urine Lumbar stenosis with neurogenic claudication On home oxygen therapy 3-4L N/C at hs Peptic ulcer disease Preoperative cardiovascular examination Raynaud's disease Restless leg syndrome Rheumatoid arthritis (02/25/13) Pt unsure if arthritis is OA vs RA- has seen rheum in the past and told different diagnosis Surgical History Fusion of spine lumbar x2--last 12/2018 H/O elbow surgery bilateral H/O thumb surgery right H/O toe surgery left foot History of appendectomy History of colonoscopy History of discectomy lumbar History of esophagogastroduodenoscopy (EGD) History of open reduction and internal fixation (ORIF) procedure right ankle History of surgical removal of skin lesion History of tonsillectomy History of total hip arthroplasty right hip History of total knee replacement bilateral; right TKA: 05/22/17: SAB x1 at L3-L4 + PNB at [facility] S/P ankle arthrodesis right ankle S/P foot surgery, left removal of bone spur S/P hardware removal right ankle S/P laparotomy removed adhesions to relieve bowel strangulation S/P AMANDA (total abdominal hysterectomy) Family History Family/Other Cancer Coronary heart disease Heart disease Hypertension Brother Benign familial tremor Prostate cancer Father Benign familial tremor Mother Malignant melanoma Aunt Rheumatoid arthritis Denies family history of Ovarian cancer Myocardial infarction Breast cancer Colorectal cancer Social History Smoking Status: Former smoker Age Quit Using Tobacco: 71; Second Hand Exposure: No; Hx Alcohol Use: Yes Alcohol type: beer Hx Substance Use: No Preferred Language: Botswanan Communication Ability: Effective Visual Impairment: No Limitations Hearing Ability: Hard of Hearing 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 Instructor Of Women'S Studies Required: No Beliefs That Will Affect Care: None Current Living Situation: Alone Current Living Situation Comment: own apartment in [facility] 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al status: retired Feels Safe at Home: Yes Childhood Exposure to Second-Hand Smoke: No Dental Care, Regularly: No Physical Activity Frequency: 1-2 Times per Week Seatbelt Use: always Sunscreen Use: Yes Assistive Devices: Cane, Denture - Upper, Denture - Lower, Glasses, Hearing Aid - Bilateral and Oxygen - at Night Physical Exam Constitutional: well developed and well nourished; no acute distress ENMT: external ear and nose normal, oropharynx normal Neck: trachea midline, no thyromegaly Respiratory: normal respiratory effort, lungs clear to auscultation Cardiovascular: Rate/Rhythm: regular rate and regular rhythm Gastrointestinal (Abdomen): normal bowel sounds, soft, nontender, no hepatosplenomegaly Musculoskeletal: Ankle: + deformity (left pes planovalgus), + ankle ROM with crepitation (left ) and + joint line tenderness (ankle) (left talonavicular joint and sinus tarsi); no skin erythema and no ecchymosis Skin: no rashes, warm and dry Neurologic: normal touch/pain/proprioception Psychiatric: A+Ox3, euthymic affect Speech: normal rate/rhythm/volume of speech Lymphatic: no cervical or axillary lymphadenopathy
[~2020-03-17 07:31] MED LIST changes: -ACETAMINOPHEN 500 MG TAB PO SCH; -CEFAZOLIN 1000MG 1,000 MG/7.5 ML SYR IV SCH; -CLINDAMYCIN 600 MG/54 ML BAG IV SCH; -CeleBREX 200 MG CAP PO SCH; -GABAPENTIN 300 MG CAP PO SCH; +ROPIVACAINE 0.5% 5 MG/ML 30 ML VIAL ONE; +SODIUM CHLORIDE 0.9% INJ 10 ML VIAL ONE; +ceFAZolin 1000MG 1,000 MG/7.5 ML SYR IV SCH
--- NOTE | 2020-03-17 08:06 | History & Physical Bridge Note ---
Date of Service March 17, 2020 History & Physical Bridge Note I have examined the patient, reviewed the History & Physical and in the interval since the performance of the History & Physical I have noted the following changes of clinical significance: no changes noted
[2020-03-17] MEDS ORDERED: ATROPINE SULFATE 0.1 MG/ML 10ML SYR IV PRN (08:44)
[2020-03-17] MEDS ORDERED: ONDANSETRON INJ 2 MG/ML 2 ML VIAL IV PRN ×2 (08:44→13:19)
[2020-03-17] MEDS ORDERED: HYDROmorphone INJ 1 MG/ML SYRINGE IV PRN (08:44)
[2020-03-17] MEDS ORDERED: MIDAZOLAM HCL 1 MG/ML 2ML VIAL ONE (08:48)
[2020-03-17] MEDS ORDERED: fentaNYL citrate 100 MCG/2 ML VIAL ONE (08:48)
[2020-03-17] MEDS ORDERED: BACITRACIN INJ 50,000 UNIT VIAL ONE (09:22)
[2020-03-17] MEDS ORDERED: PROPOFOL IV EMULSION 10 MG/ML 20 ML VIAL IV ONE (11:06)
[2020-03-17] MEDS ORDERED: NEOSTIGMINE METHYLSULFATE 5 MG/5 ML SYR ONE (11:06)
[2020-03-17] MEDS ORDERED: ONDANSETRON INJ 2 MG/ML 2 ML VIAL ONE (11:06)
[2020-03-17] MEDS ORDERED: GLYCOPYRROLATE 0.2 MG/ML VIAL ONE (11:06)
[2020-03-17] MEDS ORDERED: DEXAMETHASONE SOD INJ 4 MG/ML VIAL ONE (11:06)
[2020-03-17] MEDS ORDERED: LIDOCAINE HCL 2% 2 ML VIAL/AMP(20MG/ML) INFIL ONE (11:06)
[2020-03-17] MEDS ORDERED: ROCURONIUM BROMIDE 10 MG/ML 5 ML VIAL IV ONE (11:23)
--- NOTE | 2020-03-17 11:56 | Fluoroscopy Report ---
FL ankle LT 2V CLINICAL HISTORY: LEFT ANKLE TRIPLE ARTHRODESIS COMPARISON STUDY: None. FLUOROSCOPY TIME: 8 seconds. FINDINGS: 2 fluoroscopic spot images of the left ankle were submitted for review. There are posterior skin jb. There is triple arthrodesis of the hindfoot with 3 cannulated screws. The hardware federico ears intact. IMPRESSION: Fluoroscopy provided for hindfoot triple arthrodesis. ACT 112: Negative or not required by law. Electronically signed by: Rod Urrutia M.D. 03/17/2020 11:54 AM
--- NOTE | 2020-03-17 12:16 | Post Operative Brief Note ---
Immediate Post Op Note v1 Date of Surgery March 17, 2020 Pre & Post Diagnosis Operation Date: 03/17/20 09:00 Pre-Op Diagnosis: (1) Osteoarthritis of hindfoot, left: (2) Pes planus severe of left foot: (3) Achilles tendon contracture, left (4) posterior tibial tendon dysfunction grade 3 (5) painful os trigonum left Post-Op Diagnosis: (1) Osteoarthritis of hindfoot, left: (2) Pes planus severe of left foot: (3) Achilles tendon contracture, left (4) posterior tibial tendon dysfunction grade 3 (5) painful os trigonum left I identified the patient and participated in the time-out.: Yes Procedure Operation Date: 03/17/20 09:00 Actual Procedures p Left Ankle Triple Arthrodesis with Autograft and Allograft, Excision painful os trigonum(Left) - Michel Claire DO s Percutaneous Tendoachilles Lengthening, Calcaneal Autograft Ke[place](Left) - Michel Claire DO Surgeon Michel Claire DO Crushed Stone Grader Giovanni More PA-C Estimated Blood Loss 10 Findings Consistent with Post-Op Diagnosis Specimens None Drains Hemovac Drain Anesthesia Type General Regional Complications none Disposition Accompanied Patient To Recovery: No Disposition: Recovery Room
--- NOTE | 2020-03-17 12:27 | Operative Report (OR) ---
DATE OF OPERATION: 03/17/2020 PREOPERATIVE DIAGNOSES: 1. Left hindfoot osteoarthritis. 2. Posterior tibial tendon dysfunction grade 3. 3. Achilles tendon contracture. 4. Painful os trigonum. 5. Painful pes planus, severe. POSTOPERATIVE DIAGNOSES: 1. Left hindfoot osteoarthritis. 2. Posterior tibial tendon dysfunction grade 3. 3. Achilles tendon contracture. 4. Painful os trigonum. 5. Painful pes planus, severe. PROCEDURES: 1. Left triple arthrodesis with application of autograft and allograft. 2. Percutaneous tendo Achilles lengthening. 3. Resection of painful os trigonum. 4. Autograft harvest from the calcaneus. SURGEON: Michel Claire DO HAND SCRAPER: Giovanni More, who was present for patient positioning, sterile prep and drape, management of retractors and instruments. He was present through the critical portions of the case including wound closure, application of sterile dressing and transport of the patient to recovery. ANESTHESIA: General, regional. SPECIMENS: None. DRAINS: Hemovac x1. COMPLICATIONS: None. BLOOD LOSS: 10 mL PERTINENT HISTORY: This is an 79-year-old female who has had progressive chronic and worsening left foot pain, osteoarthritis and deformity which has limited her ability to ambulate and modify her lifestyle substantially. She attempted and failed conservative management including anti-inflammatories, rest, corticosteroid injections, physician directed home exercises and formalized physical therapy, use of a brace and use of an assistive device. The patient has failed all measures. Radiographs and CT scan demonstrate severe degenerative arthritis of the hindfoot with loss of joint spaces, marginal osteophyte, subchondral sclerosis, severe pes planovalgus and a painful os trigonum. The patient was then scheduled for surgery as indicated. All potential risks, benefits, complications, alternatives, rehab, potential for incomplete relief of symptoms, need for further surgery, DVT, PE, , persistent pain, swelling, scarring, weakness, neurovascular injury, wound complications, hardware failure, nonunion, malunion, bone fracture were discussed with the patient. The patient decided to proceed with the procedure as indicated. DESCRIPTION OF PROCEDURE: The patient was taken to the Operating Suite, placed supine on the Operating Room table, after consent and identification of the proper operative site, the patient was anesthetized. LMA was placed. Tourniquet was placed high on the left lower extremity. Left lower extremity was then sterilely prepped and draped in the usual fashion. Exsanguinated with an Esmarch bandage and tourniquet inflated to 350 mmHg. Next, the foot was held in dorsiflexion and a three-part percutaneous incision was made with an 11-blade scalpel to lengthen the Achilles tendon using standard technique. Next, the stab incisions were then closed using interrupted skin jb. Next, the 15-blade scalpel was used to make an incision from the distal aspect of the fibula to the base of the fourth metatarsal. The incision was deepened through subcutaneous tissue and meticulous hemostasis was obtained with electrocautery. Subcutaneous nerves were identified, retracted and protected. The extensor digitorum brevis was identified and was sharply elevated from the anterior process of the calcaneus revealing the sinus tarsi. Next, the sinus tarsi was debrided carefully with a rongeur and 15-blade scalpel. A cervical lamina apparel cutter was placed in the sinus tarsi opening the subtalar joint. Subtalar joint was then prepared with the use of a curette and rongeur to resect the articular surfaces down to subchondral bleeding bone. The symptomatic painful os trigonum was visualized at The posterior aspect of the subtalar joint. The os trigonum was then Grasped with a pituitary rongeur and excised. Next irrigation was performed with sterile normal saline and then the 2-mm drill bit was used to further prepare the joint surface with multiple drill holes in both surfaces of the subtalar joint and a small osteotome and mallet were used to fish scale the joint surfaces to increase surface area and bleeding. Next, the calcaneocuboid joint was then entered with the 15-blade scalpel, debrided of soft tissue and then a lamina apparel cutter was placed in the joint opening it for preparation with a curette and rongeur to remove any articular surface down to subchondral bleeding bone. Next, the 2-mm drill bit was used to further prepare the joint with multiple drill holes into the joint and then a small osteotome and mallet were used to fish scale the joint. Next, the 15-blade was used to make an incision from the distal aspect of the tibia to the base of the naviculocuneiform joint. The incision was deepened through subcutaneous tissue. Meticulous hemostasis obtained with electrocautery. A Weitlaner retractor was placed in the wound. The greater saphenous vein was identified, retracted and protected. The capsule of the talonavicular joint was then entered sharply with a 15-blade scalpel and elevated both superior and inferiorly. A small Dolores was placed on the neck of the talus and further soft tissue elevation was performed with the 15-blade scalpel until the talonavicular joint was clearly visualized. The articular surface was then debrided with curette and rongeur and a cervical lamina apparel cutter was placed in the joint. Next, it was irrigated with sterile normal saline and a 2-mm drill bit was used to make multiple holes in the joint surfaces and fish scaling was performed with a small osteotome and mallet. Next, the medial and lateral incisions were irrigated with sterile normal saline and the joint surfaces were then aligned appropriately based on alignment of the lower extremity and the kneecap. Subtalar joint was aligned and then a 7.3-mm cannulated guidepin was driven from the superior aspect of the talus across the subtalar joint into the calcaneus under fluoroscopic control. Next, an appropriate length 7.3-mm short-thread screw was placed under fluoroscopic control and countersunk slightly. Next, the guidepin was removed. Next, 2.25-mm guidepins x 2 were used to stabilize the talonavicular joint in appropriate alignment and then the calcaneocuboid joint was then stabilized with appropriate alignment under fluoroscopic control. Next, appropriate length of 7.3-mm long-thread cannulated screws were placed across the talonavicular and calcaneocuboid joints respectively under fluoroscopic control. All guidepins were removed. Wounds were irrigated with sterile normal saline and autograft bone graft Harvested from the calcaneus was then pulverized and then this bone graft was then mixed with the 15 cc of allograft and packed in and around the subtalar, talonavicular and calcaneocuboid joints. A 10-Gu[place]ian single lumen Hemovac drain was then placed in the lateral aspect of the wound exiting dorsolaterally and the extensor digitorum brevis then closed back to its origin with interrupted 2-0 Vicryl sutures. The talonavicular joint capsule was closed using 2-0 Vicryl sutures. The dermis was closed using buried interrupted 3-0 Vicryl sutures medially and laterally and then skin incisions were closed using 4-0 Nylon sutures. A sterile compressive dressing and bulky Angus-Cabral plaster splint was applied, overwrapped with an Pepe wrap. The tourniquet was released. DISPOSITION: Patient awakened and taken to Recovery in stable condition. I attest to the content of the Intraoperative Record and any orders documented therein. Any exceptions are noted below. JUNED
--- NOTE | 2020-03-17 13:01 | Anesthesiology Progress Note ---
Date of Service March 17, 2020 Anesthesia Post Procedure Vital Signs Vital Signs: Temp Pulse Pulse Resp BP BP Pulse Ox 03/17/20 12:50 36.6 C 66 14 108/52 L 99 03/17/20 12:40 66 14 105/52 L 99 03/17/20 12:30 68 14 105/49 L 99 03/17/20 12:20 72 14 123/55 L 99 03/17/20 12:13 36.4 C L 72 14 129/50 L 96 03/17/20 09:20 75 20 129/56 L 100 03/17/20 09:10 74 20 143/62 H 100 03/17/20 08:58 74 20 119/61 96 03/17/20 08:19 37.2 C 78 18 132/78 95 Pain Intensity Left Shoulder: Pain Intensity: 5 Transfer of Care Handoff Completed per policy Notes Mental Status: alert / awake / arousable Patient Amnestic to Procedure: Yes Nausea / Vomiting: adequately controlled Pain: adequately controlled Airway Patency, RR, SpO2: stable & adequate BP & HR: stable & adequate Hydration State: stable & adequate Anesthetic Complications: no major complications apparent
[2020-03-17] MEDS ORDERED: NON-FORMULARY MEDICATION (Nebulizer Accessories kit) SCH (13:19)
[2020-03-17] MEDS ORDERED: NON-FORMULARY MEDICATION (Nebulizers misc) SCH (13:19)
[2020-03-17] MEDS ORDERED: POLYETHYLENE (MIRALAX) 17 GM PACK PO PRN (13:19)
[2020-03-17] MEDS ORDERED: diphenhydrAMINE Capsule 25 MG CAP PO PRN (13:19)
[2020-03-17] MEDS ORDERED: NALOXONE HCL 0.4 MG/1 ML VIAL/CARP IV PRN (13:19)
[2020-03-17] MEDS ORDERED: METOCLOPRAMIDE HCL INJ 5 MG/ML 2 ML VIAL IV PRN (13:19)
[2020-03-17] MEDS ORDERED: ALUMINUM/MAGNESIUM SUSP 30 ML UDC PO PRN (13:19)
[2020-03-17] MEDS ORDERED: NO NSAIDS SCH (13:19)
[2020-03-17] MEDS ORDERED: predniSONE 20 MG TAB PO PRN (13:19)
[2020-03-17] MEDS ORDERED: bisacodyL 10 MG SUPP PR PRN (13:19)
[2020-03-17] MEDS ORDERED: MAGNESIUM HYDROXIDE SUSP 30 ML UDC PO PRN (13:19)
[2020-03-17] MEDS ORDERED: traMADol HCL 50 MG TABLET PO PRN (13:19)
[2020-03-17] MEDS ORDERED: NON-FORMULARY MEDICATION (Oxygen Home Liters per Minute) SCH (13:19)
[2020-03-17] MEDS ORDERED: HYDROmorphone INJ 0.5 MG/0.5 ML SYR IV PRN (13:19)
[2020-03-17] MEDS ORDERED: ePHEDrine sulfate 50 MG/ML SYR ONE (13:38)
[2020-03-17] MEDS: SODIUM CHLORIDE 0.9% 1000ML 1,000 ML IV SCH ×2 (13:57→23:00)
[2020-03-17] MEDS ORDERED: ALBUT/IPRATROP 3MG/0.5MG NEB 3 ML VIAL NEB PRN (14:00)
[2020-03-17] MEDS ORDERED: ALBUTEROL HFA 8 GM INHALER INH PRN (14:00)
[2020-03-17] MEDS: ACETAMINOPHEN 500 MG TAB PO SCH ×2 (14:36→21:43)
[2020-03-17] MEDS: ceFAZolin 2000MG 2,000 MG/15 ML SYR IV SCH (18:13)
--- NOTE | 2020-03-17 19:22 | Hospitalist Consultation ---
Date of Consultation March 17, 2020 Assessment & Plan (1) Post-operative state: Post Left ankle arthrodesis 03/17 Pain control, dvt proph per primary Monitor for acute blood loss (2) Depression: Continue escitalopram, lamotrigine, trazodone (3) CKD (chronic kidney disease) stage 3, GFR 30-59 ml/min: Avoid nephrotoxins where possible prp am (4) Hyperlipidemia: Continue home statin (5) Anxiety disorder: As above (6) Atrial fibrillation: Resume apixaban when ok with surgery continue diltiazem, Supervising Physician Co-Signing Physician Notes Patient reviewed with Asha EDWARDS, I agree with the assessment and plan. I reviewed the chart, lab work, operative report, patient's history. s/p ankle arthrodesis: management per orthopedics chronic medical issues with depression/anxiety, CKD, atrial fibrillation all are stable continue home regimen, specifically resume Eliquis when okay with orthopedics check labs tomorrow, otherwise patient is stable, medicine will sign off History of Present Illness Attending Physician: Michel Claire, History of Present Illness Ms. Alves is post op today. she has no complaints Allergies Allergy/AdvReac Type Severity Reaction Status Date / Time procaine Allergy Severe novacaine Verified 03/17/20 08:17 - anaphylaxis, mouth swelling, dyspnea azithromycin Allergy Intermediate throat Verified 03/17/20 08:17 burned, lost weight fluticasone Allergy Intermediate chest pain Verified 03/17/20 08:17 (from Advair) salmeterol Allergy Intermediate chest pain Verified 03/17/20 08:17 (from Advair) chocolate flavor Allergy Mild rash Verified 03/17/20 08:17 Penicillins Allergy Unknown per Verified 03/17/20 08:17 allergy test (tolerated rocephin in the past) zolpidem AdvReac Intermediate sleep Verified 03/17/20 08:17 walking moxifloxacin AdvReac Mild N/V Verified 03/17/20 08:17 NSAIDS (Non-Steroidal AdvReac Mild advised to Verified 03/17/20 08:17 Anti-Inflamma avoid d/t ulcer hx Home Medications Home Medications Medication Instructions Recorded Confirmed Type tramadol 50 mg PO BID PRN #10 tab 05/14/19 03/17/20 Rx albuterol sulfate 90 mcg/actuation 2 puff INHALATION Q4 PRN #3 inhaler 05/25/19 03/17/20 Rx aerosol inhaler ipratropium 0.5 mg-albuterol 3 mg 3 ml NEB Q6H PRN #90 ml 05/26/19 03/17/20 Rx (2.5 mg base)/3 mL nebulization soln nebulizer accessories #2 ea 05/26/19 03/07/20 Rx nebulizers #1 ea 05/26/19 03/07/20 Rx prednisone 20 mg PO UD PRN 07/28/19 03/17/20 History codeine 10 mg-guaifenesin 100 mg/5 5 ml PO Q6H PRN #118 ml 08/12/19 03/17/20 Rx mL oral liquid apixaban 5 mg tablet 5 mg PO BID #60 tab 10/26/19 03/17/20 Rx calcium carbonate 600 mg (1,500 1 tab PO BID #60 tab 10/26/19 03/17/20 Rx mg)-vitamin D3 400 unit tablet atorvastatin 40 mg tablet 40 mg PO HS #90 tab 11/16/19 03/17/20 Rx escitalopram oxalate 20 mg tablet 20 mg PO DAILY #30 tab 11/16/19 03/07/20 Rx gabapentin 400 mg capsule 400 mg PO BID #60 cap 11/16/19 03/17/20 Rx trazodone 150 mg tablet 225 mg PO HS #45 tab 11/16/19 03/17/20 Rx loratadine 10 mg tablet 10 mg PO DAILY #30 tab 11/24/19 03/17/20 Rx triamcinolone acetonide 0.1 % 1 appln TOP BID #30 gm 11/24/19 03/17/20 Rx topical cream lamotrigine 150 mg tablet 150 mg PO HS #30 tab 11/26/19 03/17/20 Rx Oxygen Home #1 ea 12/10/19 03/07/20 Rx cyanocobalamin (vitamin B-12) 2,500 mcg PO DAILY #30 tab 12/24/19 03/17/20 Rx 2,500 mcg tablet pantoprazole 40 mg tablet,delayed 40 mg PO QAM #30 tab 12/24/19 03/17/20 Rx release zinc gluconate 50 mg tablet 50 mg PO QAM #30 tab 01/21/20 03/17/20 Rx aspirin 81 mg tablet,delayed 81 mg PO HS #30 tab 02/17/20 03/17/20 Rx release cholecalciferol (vitamin D3) 50 2,000 unit PO QAM #30 tab 02/17/20 03/17/20 Rx mcg (2,000 unit) tablet multivitamin 1 tab PO QAM #30 tab 02/17/20 03/17/20 Rx potassium chloride 10 mEq 10 meq PO DAILY #30 tab 02/17/20 03/17/20 Rx tablet,extended release(part/cryst) pramipexole 0.5 mg tablet 0.5 mg PO HS #90 tab 02/17/20 03/17/20 Rx dextroamphetamine-amphetamine ER 30 mg PO DAILY 03/03/20 03/17/20 History 30 mg 24hr capsule,extend release psyllium seed (sugar) oral powder 1 tbsp PO DAILY 03/03/20 03/17/20 History digoxin 125 mcg (0.125 mg) tablet 125 mcg PO QAM #30 tab 03/15/20 03/17/20 Rx diltiazem HCl 240 mg 240 mg PO QAM #30 cap 03/15/20 03/17/20 Rx capsule,extended release 24 hr, controlled escitalopram oxalate 5 mg tablet 5 mg PO QAM #90 tab 03/15/20 03/17/20 Rx vitamin E 200 unit capsule 200 unit PO QAM #30 cap 03/15/20 03/17/20 Rx montelukast [Singulair] 10 mg PO HS 03/17/20 03/17/20 History polyethylene glycol 3350 [Miralax] 17 g PO DAILY PRN 03/17/20 03/17/20 History No Nsaids 1 dose NOT APPLICABLE UD #1 unit 03/19/20 Rx oxycodone 5 - 10 mg PO Q4H PRN #30 tab 03/19/20 Rx Patient History Medical History ADHD Stable Anemia Anxiety disorder Well controlled- follows with psych Asthma stable Atrial fibrillation paroxysmal CAD (coronary artery disease) Mild- luminal irregularities only on 2003 cardiac cath Cancer skin cancer (forehead)- removed Chronic obstructive pulmonary disease stable CKD (chronic kidney disease) stage 3, GFR 30-59 ml/min Depression Esophageal stenosis Stable- usually drinks while eating to keep food moving - no recent choking Glaucoma left eye Hearing deficit b/l HERRERA Hyperlipidemia Incontinence of urine Lumbar stenosis with neurogenic claudication On home oxygen therapy 3-4L N/C at hs Peptic ulcer disease Preoperative cardiovascular examination Raynaud's disease Restless leg syndrome Rheumatoid arthritis (02/25/13) Pt unsure if arthritis is OA vs RA- has seen rheum in the past and told different diagnosis Surgical History (Updated 03/17/20 @ 19:15 by GRACE Conde) Fusion of spine lumbar x2--last 12/2018 H/O elbow surgery bilateral H/O thumb surgery right H/O toe surgery left foot History of appendectomy History of colonoscopy History of discectomy lumbar History of esophagogastroduodenoscopy (EGD) History of open reduction and internal fixation (ORIF) procedure right ankle History of surgical removal of skin lesion History of tonsillectomy History of total hip arthroplasty right hip History of total knee replacement bilateral; right TKA: 05/22/17: SAB x1 at L3-L4 + PNB at [facility] S/P ankle arthrodesis right ankle S/P foot surgery, left removal of bone spur S/P hardware removal right ankle S/P laparotomy removed adhesions to relieve bowel strangulation S/P AMANDA (total abdominal hysterectomy) Family History Family/Other Cancer Coronary heart disease Heart disease Hypertension Brother Benign familial tremor Prostate cancer Father Benign familial tremor Mother Malignant melanoma Aunt Rheumatoid arthritis Denies family history of Ovarian cancer Myocardial infarction Breast cancer Colorectal cancer Social History Smoking Status: Former smoker Age Quit Using Tobacco: 71; Smoking End Date: 15 MONTHS AGO; Second Hand Exposure: No; Do You Dip or Chew Tobacco: No; Tobacco Cessation Education Requested by Patient: No Hx Alcohol Use: Yes Alcohol type: beer Hx Substance Use: No Preferred Language: Iraqi Communication Ability: Effective Visual Impairment: No Limitations Hearing Ability: Hard of Hearing Crew Member Required: No Beliefs That Will Affect Care: None Current Living Situation: Alone Current Living Situation Comment: own apartment in care home facility 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al status: retired Feels Safe at Home: Yes Safety Concerns: Feels Safe At This Time Childhood Exposure to Second-Hand Smoke: No Dental Care, Regularly: No Physical Activity Frequency: 1-2 Times per Week Seatbelt Use: always Sunscreen Use: Yes Assistive Devices: Walker Review of Systems Constitutional: no fever, no chills and no body aches Respiratory: no cough and no dyspnea Cardiovascular: no chest pain and no palpitations Gastrointestinal: no abdominal pain, no nausea and no vomiting Genitourinary: no dysuria and no urinary hesitancy Musculoskeletal: no back pain and no joint pain Integumentary: no rash Physical Exam Physical Exam: General: no distress Eyes: normal inspection, PERLL Respiratory: chest non tender, clear to auscultation, normal breath sounds, no respiratory distress, no accessory muscle use Cardiac: regular rate and rhythm, no rub or gallop, no murmur, no edema, no jvd GI/: active bowel sounds, no abd pain or tenderness, soft, non distended Extremities: normal range of motion, normal strength, non tender Neuro/Psych: drowsy and oriented x 3, normal mood and affect Skin: normal color, dry Results & Data Results & Data ([facility]) Vital Signs (Past 12 Hours) Vital Signs Temp Pulse Pulse Resp BP BP Pulse Ox 03/17/20 16:24 36.6 C 69 16 95/58 L 94 03/17/20 15:23 36.5 C 71 16 108/56 L 94 03/17/20 14:20 65 16 103/48 L 97 03/17/20 13:49 67 18 98/51 L 98 03/17/20 13:15 37.1 C 71 18 98/49 L 94 03/17/20 13:00 36.6 C 66 14 108/52 L 99 03/17/20 12:50 36.6 C 66 14 108/52 L 99 03/17/20 12:40 66 14 105/52 L 99 03/17/20 12:30 68 14 105/49 L 99 03/17/20 12:20 72 14 123/55 L 99 03/17/20 12:13 36.4 C L 72 14 129/50 L 96 03/17/20 09:20 75 20 129/56 L 100 03/17/20 09:10 74 20 143/62 H 100 03/17/20 08:58 74 20 119/61 96 03/17/20 08:19 37.2 C 78 18 132/78 95 PG Care Time/CCT Total # of Minutes Spent Total Time Spent with Patient: Total time spent is greater than 50% in coordination of care (as documented) at patient's floor/unit and/or counseling patient: Coding Level of Care Code 37863 Inpt Consult Level 4 Diagnoses Post-operative state Z98.890 Depression F32.9 CKD (chronic kidney disease) stage 3, GFR 30-59 ml/min N18.3 Hyperlipidemia E78.5 Anxiety disorder F41.9 Atrial fibrillation I48.91
[2020-03-17] MEDS: DOCUSATE SODIUM 100 MG CAP PO SCH (21:41)
[2020-03-17] MEDS: ASPIRIN 81 MG ECTAB PO SCH (21:41)
[2020-03-17] MEDS: ATORVASTATIN 40 MG TAB PO SCH (21:42)
[2020-03-17] MEDS: MONTELUKAST SODIUM 10 MG TABLET PO SCH (21:42)
[2020-03-17] MEDS: APIXABAN 5 MG TABLET PO SCH (21:42)
[2020-03-17] MEDS: CALCIUM 600MG + VIT D 400 IU TAB PO SCH (21:43)
[2020-03-17] MEDS: GABAPENTIN 400 MG CAP PO SCH (21:43)
[2020-03-17] MEDS: PRAMIPEXOLE DIHYDROCHLO 0.5 MG TAB PO SCH (21:44)
[2020-03-17] MEDS: SENNA 8.6 MG TAB PO SCH (21:44)
[2020-03-17] MEDS: traZODone HCL 50 MG TAB PO SCH (21:45)
[2020-03-17] MEDS: traZODone HCL 100 MG TAB PO SCH (21:45)
[2020-03-17] MEDS: lamoTRIgine 100 MG TAB PO SCH (21:45)
[2020-03-17] MEDS: TRIAMCINOLONE ACET 0.1% CR 15 GM TUBE TOP SCH (21:46)
[2020-03-18] MEDS: ceFAZolin 2000MG 2,000 MG/15 ML SYR IV SCH (02:40)
[2020-03-18 06:20] LABS: Hematocrit (blood only) 35.3 % (37-47); Hemoglobin 10.7 g/dL (12.0-16.0); Mean Corpuscular Hemoglobin 27.7 pg (25-34); Mean Corpuscular Hgb Conc 30.3 g/dL (32-36); Mean Corpuscular Volume 91.5 fL (80-100); Mean Platelet Volume 10.1 fL (7.4-10.4); Platelet Count 226 K/uL (130-400); RDW Coefficient of Variation 14.9 % (11.5-14.5); RDW Standard Deviation 50.4 fL (36.4-46.3); Red Blood Count 3.86 M/uL (4.2-5.4)
[2020-03-18 06:49] LABS: Calcium 9.3 mg/dl (8.5-10.1); Creatinine Clr Calc Pharmacy 52.2 ml/min; Est GFR (African American) 70.9; Est GFR (Non-African American) 61.2; Potassium 3.9 mmol/L (3.5-5.1)
[2020-03-18] MEDS: ACETAMINOPHEN 500 MG TAB PO SCH ×3 (06:50→20:57)
[2020-03-18] MEDS: oxyCODONE HCL IR 5 MG TAB (IMMEDIATE RELEASE) PO PRN ×4 (07:19→20:45)
--- NOTE | 2020-03-18 08:11 | Orthopedic Progress Note ---
Date of Service March 18, 2020 Assessment & Plan (1) Osteoarthritis of ankle, left: POD #1, Left ankle triple arthrodesis NWB w walker, patient does have scooter. Will get pain controlled today. Spoke with CM, will try for bed at [facility], poss tomorrow. DVT proph- Eliquis and ASA D/C drain tomorrow. Admission and Anticipated Discharge Date Admission Date: March 17, 2020 Subjective POD #1, States pain is starting to get worse as block wears off. Denies SOB, CP, N/V, dizziness. Wishes for rehab on D/C. Physical Exam Physical Exam: Left foot splint/ dressings c/d/i. Drain in place. Toes mobile. Sensation in tact at toes. VSS A&Ox3. Results & Data ([facility]) Vital Signs (Past 12 Hours) Vital Signs Temp Pulse Resp BP Pulse Ox 03/18/20 05:43 36.9 C 81 18 123/63 96 03/18/20 03:19 36.9 C 73 15 121/60 93 03/17/20 23:27 37.2 C 76 18 118/65 97
[2020-03-18] MEDS: CALCIUM 600MG + VIT D 400 IU TAB PO SCH ×2 (08:24→20:51)
[2020-03-18] MEDS: dilTIAZem HCL 240 MG CAPCR PO SCH (08:24)
[2020-03-18] MEDS: LORATADINE 10 MG TAB PO SCH (08:24)
[2020-03-18] MEDS: DOCUSATE SODIUM 100 MG CAP PO SCH ×2 (08:25→20:50)
[2020-03-18] MEDS: APIXABAN 5 MG TABLET PO SCH ×2 (08:25→20:51)
[2020-03-18] MEDS: TRIAMCINOLONE ACET 0.1% CR 15 GM TUBE TOP SCH ×2 (08:26→20:52)
[2020-03-18] MEDS: DIGOXIN 0.125 MG TAB PO SCH (08:28)
[2020-03-18] MEDS: ESCITALOPRAM OXALATE 10 MG TAB PO SCH (08:29)
[2020-03-18] MEDS: MULTIVITAMIN TAB PO SCH (08:30)
[2020-03-18] MEDS: GABAPENTIN 400 MG CAP PO SCH ×2 (08:30→20:50)
[2020-03-18] MEDS: ESCITALOPRAM OXALATE 20 MG TAB PO SCH (08:30)
[2020-03-18] MEDS: TOCOPHERYL, DL-ALPHA 100 UNITS CAP PO SCH (08:31)
[2020-03-18] MEDS: CHOLECALCIFEROL 1,000 UNITS 25 MCG TAB PO SCH (08:31)
[2020-03-18] MEDS: CYANOCOBALAMIN 500 MCG TABLET (VITAMIN B-12) PO SCH (08:31)
[2020-03-18] MEDS: DEXTROAMPHETAMINE/AMPHETAMINE ER 10 MG CAP PO SCH (08:41)
[2020-03-18] MEDS ORDERED: MULTIVITAMIN TAB PO SCH (09:00)
[2020-03-18] MEDS ORDERED: PSYLLIUM SEED PO SCH (09:00)
[2020-03-18] MEDS ORDERED: NON-FORMULARY MEDICATION (Zinc Gluconate 50 mg tablet) PO SCH (09:00)
[2020-03-18] MEDS: POTASSIUM CHLORIDE 10 MEQ TABCR PO SCH (09:08)
[2020-03-18] MEDS: PANTOprazole 40 MG TAB PO SCH (09:08)
[2020-03-18] MEDS: PSYLLIUM 58.6% POWDER PACKET PO SCH (11:37)
--- NOTE | 2020-03-18 12:49 | Hospitalist Progress Note ---
Date of Service March 18, 2020 Assessment & Plan (1) Post-operative state: Post Left ankle arthrodesis 03/17 Pain control, dvt proph per primary Monitor for acute blood loss (2) Depression: Continue escitalopram, lamotrigine, trazodone (3) CKD (chronic kidney disease) stage 3, GFR 30-59 ml/min: Avoid nephrotoxins where possible prp am (4) Hyperlipidemia: Continue home statin (5) Anxiety disorder: As above (6) Atrial fibrillation: Resume apixaban when ok with surgery continue diltiazem Medicine will sign off at this time. Please call with any questions or concerns Admission and Anticipated Discharge Date Admission Date: March 17, 2020 Subjective Ms. Alves feels somewhat short of breath when walking with therapy but reports this is her baseline. She has pain at her surgical site. ROS Constitutional: no chills, aches, sweats or fever Respiratory: see HPI Cardiac: no chest pain, palpitations, edema, orthopnea or lightheadedness GI: no abdominal pain, nausea, vomiting, diarrhea or constipation : no dysuria or hesitancy Extremities: no joint pain or weakness Skin: no rash All other systems reviewed and negative Physical Exam Physical Exam: General: no distress Eyes: normal inspection, PERLL Respiratory: chest non tender, clear to auscultation, normal breath sounds, no respiratory distress, no accessory muscle use Cardiac: regular rate and rhythm, no rub or gallop, no murmur, no edema, no jvd GI/: active bowel sounds, no abd pain or tenderness, soft, non distended Extremities: normal range of motion, normal strength, non tender Neuro/Psych: alert and oriented x 3, normal mood and affect Skin: normal color, dry Results & Data Results & Data ([facility]) Vital Signs (Past 12 Hours) Vital Signs Temp Pulse Pulse Resp BP Pulse Ox 03/18/20 08:28 81 03/18/20 05:43 36.9 C 81 18 123/63 96 03/18/20 03:19 36.9 C 73 15 121/60 93 PG Care Time/CCT Total # of Minutes Spent Total Time Spent with Patient: Total time spent is greater than 50% in coordination of care (as documented) at patient's floor/unit and/or counseling patient: Coding Level of Care Code 56760 Subseq Hosp Care Lvl 2 Diagnoses Post-operative state Z98.890 Depression F32.9 CKD (chronic kidney disease) stage 3, GFR 30-59 ml/min N18.3 Hyperlipidemia E78.5 Anxiety disorder F41.9 Atrial fibrillation I48.91
[2020-03-18] MEDS: ASPIRIN 81 MG ECTAB PO SCH (20:50)
[2020-03-18] MEDS: MONTELUKAST SODIUM 10 MG TABLET PO SCH (20:51)
[2020-03-18] MEDS: ATORVASTATIN 40 MG TAB PO SCH (20:51)
[2020-03-18] MEDS: PRAMIPEXOLE DIHYDROCHLO 0.5 MG TAB PO SCH (20:51)
[2020-03-18] MEDS: traZODone HCL 100 MG TAB PO SCH (20:51)
[2020-03-18] MEDS: traZODone HCL 50 MG TAB PO SCH (20:51)
[2020-03-18] MEDS: SENNA 8.6 MG TAB PO SCH (20:51)
[2020-03-18] MEDS: lamoTRIgine 100 MG TAB PO SCH (20:53)
[2020-03-19] MEDS: oxyCODONE HCL IR 5 MG TAB (IMMEDIATE RELEASE) PO PRN ×4 (01:35→13:29)
[2020-03-19] MEDS: ACETAMINOPHEN 500 MG TAB PO SCH ×2 (05:35→13:29)
--- NOTE | 2020-03-19 08:51 | Orthopedic Progress Note ---
Date of Service March 19, 2020 Assessment & Plan (1) Osteoarthritis of ankle, left: POD #2, Left ankle triple arthrodesis NWB left LE, patient does have scooter she would prefer to use. Spoke with CM, will try for bed at [facility] today. DVT proph- Eliquis and ASA Drain d/c'd by me today. Pain management. Admission and Anticipated Discharge Date Admission Date: March 17, 2020 Subjective POD #2, Doing well. Denies SOB, CP, N/V, dizziness. Pain controlled well. Physical Exam Physical Exam: Left ankle/ foot dressings/ splint c/d/i, no drainage. Drain in tact. Toes mobile. Cap refill good. Sensation in toes good. Results & Data ([facility]) Vital Signs (Past 12 Hours) Vital Signs Temp Pulse Resp BP Pulse Ox 03/19/20 07:22 36.7 C 66 16 108/52 L 92 03/18/20 23:49 36.7 C 72 16 116/61 91
[2020-03-19] MEDS: DEXTROAMPHETAMINE/AMPHETAMINE ER 10 MG CAP PO SCH (09:10)
[2020-03-19] MEDS: dilTIAZem HCL 240 MG CAPCR PO SCH (09:12)
[2020-03-19] MEDS: CALCIUM 600MG + VIT D 400 IU TAB PO SCH (09:12)
[2020-03-19] MEDS: POTASSIUM CHLORIDE 10 MEQ TABCR PO SCH (09:13)
[2020-03-19] MEDS: TRIAMCINOLONE ACET 0.1% CR 15 GM TUBE TOP SCH (09:13)
[2020-03-19] MEDS: MULTIVITAMIN TAB PO SCH (09:13)
[2020-03-19] MEDS: PSYLLIUM 58.6% POWDER PACKET PO SCH (09:13)
[2020-03-19] MEDS: GABAPENTIN 400 MG CAP PO SCH (09:14)
[2020-03-19] MEDS: PANTOprazole 40 MG TAB PO SCH (09:14)
[2020-03-19] MEDS: DOCUSATE SODIUM 100 MG CAP PO SCH (09:14)
[2020-03-19] MEDS: LORATADINE 10 MG TAB PO SCH (09:15)
[2020-03-19] MEDS: ESCITALOPRAM OXALATE 10 MG TAB PO SCH (09:15)
[2020-03-19] MEDS: ESCITALOPRAM OXALATE 20 MG TAB PO SCH (09:15)
[2020-03-19] MEDS: APIXABAN 5 MG TABLET PO SCH (09:16)
[2020-03-19] MEDS: DIGOXIN 0.125 MG TAB PO SCH (09:18)
[2020-03-19] MEDS: CYANOCOBALAMIN 500 MCG TABLET (VITAMIN B-12) PO SCH (09:19)
[2020-03-19] MEDS: CHOLECALCIFEROL 1,000 UNITS 25 MCG TAB PO SCH (09:19)
[2020-03-19] MEDS: TOCOPHERYL, DL-ALPHA 100 UNITS CAP PO SCH (09:19)
--- NOTE | 2020-03-28 15:48 | Discharge Summary ---
Date of Service March 28, 2020 Admission HPI Per Admitting Provider This is a patient with chronic left hindfoot pain and worsening pes planus deformity. She was treated conservatively for hindfoot DJD however has failed all tx's. She is now being set up for surgical tx. Principal Diagnosis left hindfoot DJD left pes planovalgus Discharge Exam Constitutional well developed and well nourished; no acute distress ENMT external ear and nose normal, oropharynx normal Neck trachea midline, no thyromegaly Respiratory normal respiratory effort, lungs clear to auscultation Cardiovascular Rate/Rhythm: regular rate and regular rhythm Gastrointestinal (Abdomen) normal bowel sounds, soft, nontender, no hepatosplenomegaly Musculoskeletal Ankle: + surgical incision (left ankle: splint C/D/I); no skin erythema and no ecchymosis Skin no rashes, warm and dry Neurologic normal touch/pain/proprioception Psychiatric A+Ox3, euthymic affect Speech: normal rate/rhythm/volume of speech Lymphatic no cervical or axillary lymphadenopathy Discharge Data Allergies Allergy/AdvReac Type Severity Reaction Status Date / Time procaine Allergy Severe novacaine Verified 03/17/20 08:17 - anaphylaxis, mouth swelling, dyspnea azithromycin Allergy Intermediate throat Verified 03/17/20 08:17 burned, lost weight fluticasone Allergy Intermediate chest pain Verified 03/17/20 08:17 (from Advair) salmeterol Allergy Intermediate chest pain Verified 03/17/20 08:17 (from Advair) chocolate flavor Allergy Mild rash Verified 03/17/20 08:17 Penicillins Allergy Unknown per Verified 03/17/20 08:17 allergy test (tolerated rocephin in the past) zolpidem AdvReac Intermediate sleep Verified 03/17/20 08:17 walking moxifloxacin AdvReac Mild N/V Verified 03/17/20 08:17 NSAIDS (Non-Steroidal AdvReac Mild advised to Verified 03/17/20 08:17 Anti-Inflamma avoid d/t ulcer hx Consultations 03/17/20 13:19 Consult Case Management - Discharge Planning Routine Consult Hospitalist Routine Procedures Performed Operation Date: 03/17/20 09:00 Actual Procedures p Left Ankle Triple Arthrodesis with Autograft, Excision os trigonum(Left) - Michel Hickman DO s Percutaneous Tendoachilles Lengthening, Calcaneal Autograft [place](Left) - Michel Hickman DO Ordered Studies 03/17/ 05:00 US - OR guided needle placemen Routine 03/17/ 09:00 FL ankle LT 2V Routine FL fluoroscopy <1hr Routine Hospital Course (1) Osteoarthritis of ankle, left: The patient was admitted and underwent the noted procedure. She was doing well on POD #1 with pain control. She was hoping to go to [facility] upon d/c but a bed wasn't going to be available until POD #2. She continued to do well on POD #2 and was discharged later that day. POD #2, Left ankle triple arthrodesis NWB left LE, patient does have scooter she would prefer to use. Spoke with CM, will try for bed at [facility] today. DVT proph- Eliquis and ASA Drain d/c'd by me today. Pain management. Total Time Total Time Spent Total Time Spent (In Minutes): 60 Total Time Includes: Examination of the Patient, Discharge Planning and Medication Reconciliation Discharge Plan Discharge Items Patient Disposition: Transfer Inpatient Rehab Fac Reason For Visit: Left Ankle Pes Planus, Osteoarthritis Discharge Diagnosis: left hindfoot osteoarthritis Condition on Discharge: Good Activity: Per Instructions section Non-emergency contact: Primary Care Provider and Surgeon Call non-emergency contact if: your pain is not controlled, your pain is worsening and your temperature is above 101 Follow-up/Referrals: Faiza Costa MD [Primary Care Provider] - Diet: Heart Healthy Addtl Attending Provider Instructions: ACTIVITY RECOMMENDATIONS: Limitations: No weight bearing to affected limb at all times. Patient has a scooter at home she would prefer to use as a first choice. SPECIAL CARE INSTRUCTIONS: * Restart Eliquis for post op blood clot prophylaxis. * Some drainage onto the dressing is normal and is no cause for alarm. * Some swelling is natural especially after walking. * When resting, keep your foot elevated above the level of your heart. * Call [facility] if you notice: -Increased drainage -Fever over 101 degrees F -Severe constant pain BANDAGE: * Leave bandage/cast in place unless otherwise directed. * Keep bandage/cast dry at all times. FOLLOW UP VISIT WITH DR. HICKMAN If appointment is not already scheduled: Please call [facility] after you get home today to schedule a follow-up appointment for [address] Hickman at . Pending Studies at Discharge: No Stand-Alone Forms: My [facility] [employer], Opioid Pain Management Skilled Items Patient informed of condition?: Yes DNR: No Discharge Level of Care: Acute rehab Communicable Disease: No Lines: None Urinary Catheter: No Medications and DC Order Prescriptions: New oxycodone 5 mg Tablet 5 - 10 mg PO Q4H PRN (Reason: pain) Qty: 30 RF: 0 No Nsaids 1 dose Not Applicable UD Qty: 1 RF: 1 Continued ipratropium-albuterol 0.5 mg-3 mg(2.5 mg base)/3 mL solution for nebulization 3 ml NEB Q6H PRN (Reason: shortness of breath or wheezing) Qty: 90 RF: 1 (DME) nebulizer accessories Kit See Rx Instructions .ROUTE .MEDSUPPLY Qty: 2 RF: 0 (DME) nebulizers Misc See Rx Instructions .ROUTE .MEDSUPPLY Qty: 1 RF: 0 Eliquis 5 mg tablet 5 mg PO BID Qty: 60 RF: 5 calcium carbonate-vitamin D3 [Calcium 600 + D(3)] 600 mg(1,500mg) -400 unit tablet 1 tab PO BID Qty: 60 RF: 5 atorvastatin 40 mg tablet 40 mg PO HS Qty: 90 RF: 1 escitalopram oxalate [Lexapro] 20 mg tablet 20 mg PO DAILY Qty: 30 RF: 5 gabapentin 400 mg capsule 400 mg PO BID Qty: 60 RF: 5 trazodone 150 mg tablet 225 mg PO HS Qty: 45 RF: 5 lamotrigine [Lamictal] 150 mg tablet 150 mg PO HS Qty: 30 RF: 5 cyanocobalamin (vitamin B-12) 2,500 mcg tablet 2,500 mcg PO DAILY Qty: 30 RF: 5 pantoprazole [Protonix] 40 mg tablet,delayed release (DR/EC) 40 mg PO QAM Qty: 30 RF: 5 zinc gluconate 50 mg tablet 50 mg PO QAM Qty: 30 RF: 5 aspirin 81 mg tablet,delayed release (DR/EC) 81 mg PO HS Qty: 30 RF: 5 cholecalciferol (vitamin D3) 50 mcg (2,000 unit) tablet 2,000 unit PO QAM Qty: 30 RF: 5 multivitamin Tablet 1 tab PO QAM Qty: 30 RF: 5 potassium chloride 10 mEq tablet,ER particles/crystals 10 meq PO DAILY Qty: 30 RF: 5 pramipexole [Mirapex] 0.5 mg tablet 0.5 mg PO HS Qty: 90 RF: 3 digoxin 125 mcg (0.125 mg) tablet 125 mcg PO QAM Qty: 30 RF: 5 diltiazem HCl [DILT-XR] 240 mg capsule,ext.rel 24h degradable 240 mg PO QAM Qty: 30 RF: 5 escitalopram oxalate [Lexapro] 5 mg tablet 5 mg PO QAM Qty: 90 RF: 1 vitamin E 200 unit capsule 200 unit PO QAM Qty: 30 RF: 5 albuterol sulfate [Ventolin HFA] 90 mcg/actuation HFA aerosol inhaler 2 puff Inhalation Q4 PRN (Reason: Shortness Of Breath Or Wheezing) Qty: 3 RF: 5 loratadine 10 mg tablet 10 mg PO DAILY Qty: 30 RF: 5 triamcinolone acetonide 0.1 % cream 1 appln TOP BID Qty: 30 RF: 2 codeine-guaifenesin 10-100 mg/5 mL liquid 5 ml PO Q6H PRN (Reason: allergy symptoms) Qty: 118 RF: 0 (DME) Oxygen Home Liters Per Minute See Rx Instructions .ROUTE .MEDSUPPLY Qty: 1 RF: 0 dextroamphetamine-amphetamine [Adderall XR] 30 mg capsule,extended release 24hr 30 mg PO DAILY RF: 0 Metamucil (sugar) Powder 1 tbsp PO DAILY RF: 0 prednisone 20 mg tablet 20 mg PO UD PRN (Reason: copd) RF: 0 polyethylene glycol 3350 [Miralax] 17 gram/dose Powder 17 g PO DAILY PRN (Reason: Constipation) RF: 0 montelukast [Singulair] 10 mg tablet 10 mg PO HS RF: 0 Discontinued tramadol 50 mg tablet 50 mg PO BID PRN (Reason: pain) Qty: 10 RF: 0 Discharge Orders: Discharge Order (Routine); Ordered 03/19/20 Ordered By: Jeremiah Farnsworth/Other Patient Handouts: DVT Post Op Prevention Admission Data Admit Date/Time: 03/17/20 12:45 Attending Provider: Michel Hickman Admit Provider: Michel Hickman Primary Care Provider: Faiza Costa Other Providers: Miles Medina ; Alyse Bustamante ; Chuck Shannon ; Angus Keyes ; Milagro Younger ; Nasir Toro ; Joselo Tubbs ; Aaron Best ; Adriana Loza ; Marissa Young ; Yolette Carpenter ; Catracho Jewell ; Janel Cruz ; Lynne Tapia ; Juan Lopez ; Josefina Parker ; Arnol Smith ; Sameer Ramsey ; Asha Calvo ; Dia Lopez ; Rojelio Nixon ; Chuck Ann ; Barrera Magdaleno ; Leti Stephen ; Estela Stephen ; Stef Fletcher ; Stephan Reynolds ; Ricky Castro ; Soren Mas ; Joon Mcgovern ; [facility] Other Interventions: Discharge Summary Assessment (RN) Last Done: 03/19/20 10:33
== END 2020-03-19 14:50 | DRG 494 ==
LOC: PAT 07:31 → 3E 12:45

== ENCOUNTER 2022-11-12 14:25 | Observation (INO) ==
[2022-11-12] MEDS ORDERED: metroNIDAZOLE 500 MG/100 ML BAG IV STA (14:55)
[2022-11-12] MEDS ORDERED: cefTRIAXone SODIUM 2,000 MG/70 ML BAG IV STA (14:55)
--- NOTE | 2022-11-12 14:55 | ED Triage Note ---
Date of Service November 12, 2022 History of Present Illness This patient was briefly evaluated while in triage. An abbreviated physical exam was performed. This patient is a 82-year-old Female who presents to the ED for evaluation of cat bite cellulitis of the left hand. Pt. was seen here yesterday for a cat bite. She was started on PO antibiotics, but the infection in the left hand is worsening. Physical Exam VITALS: Vitals are noted on the nurse's note and reviewed by myself. GENERAL: This is an 82 year old female, in no acute distress, nondiaphoretic, well-developed well-nourished. SKIN: Erythema and edema of the left hand. HEAD: Normocephalic atraumatic. EYES: Conjunctivae without injection, sclerae without icterus. NECK: No JVD. LUNGS: No retractions or accessory muscle use. MUSCULOSKELETAL: Normal gait. NEURO: Patient was alert and oriented to person place and time. No focal neurological deficits. Initial orders for labs and / or imaging were placed and patient was placed in the waiting area until a bed is available. Please see further documentation for the full ED course.
--- NOTE | 2022-11-12 16:33 | XRay Report ---
XR hand LT min 3V routine CLINICAL HISTORY: cat bite TECHNIQUE: 3 views of the left hand were obtained. Comparison: Comparison is made to left hand radiograph 07/23/2013 FINDINGS: There is no evidence of an acute fracture. Extensive joint space narrowing and osteophyte formation i s seen most prominently in the interphalangeal joints. Soft tissue swelling is seen. 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 Soft tissue swelling without underlying bony abnormality. ACT 112: Negative or not required by law. Electronically signed by: Aaron Luna M.D. 11/12/2022 4:32 PM
[2022-11-12 16:36] LABS: Basophils # (auto) 0.05 K/uL (0-0.2); Basophils % (auto) 0.3 %; Eosinophils % (auto) 0.6 %; Hematocrit (blood only) 42.5 % (37.0-47.0); Hemoglobin 13.8 g/dl (12.0-16.0); Immature Granulocytes # (auto) 0.08 K/uL (0.01-0.20); Immature Granulocytes % (auto) 0.5 %; Lymphocytes # (auto) 1.71 K/uL (1.2-3.4); Lymphocytes % (auto) 10.1 %; Mean Corpuscular Hemoglobin 29.4 pg (25.0-34.0); Mean Corpuscular Hgb Conc 32.5 g/dL (32.0-36.0); Mean Corpuscular Volume 90.6 fL (80.0-100.0); Mean Platelet Volume 10.4 fL (9.4-12.4); Monocytes # (auto) 1.01 K/uL (0.11-0.59); Neutrophils # (auto) 13.98 K/uL (1.40-6.50); Neutrophils % (auto) 82.5 %; Platelet Count 199 K/uL (130-400); RDW Coefficient of Variation 14.3 % (11.5-14.5); RDW Standard Deviation 47.3 fL (36.4-46.3); Red Blood Count 4.69 M/uL (4.20-5.40); White Blood Count 16.93 K/ul (4.8-10.8)
[2022-11-12 16:54] LABS: Albumin Globulin Ratio 1.5 (0.9-2); Albumin Level 4.2 gm/dl (3.4-5.0); BUN Creatinine Ratio 34.3 (10-20); Bilirubin,Total 0.6 mg/dl (0.2-1.0); Calcium 10.5 mg/dl (8.6-10.3); Creatinine Clr Calc Pharmacy 60.4 ml/min; Est GFR (African American) 92.9 ml/min; Est GFR (Non-African American) 80.1 ml/min; Globulin 2.8 gm/dl (2.5-4.0); Potassium 3.8 mmol/L (3.5-5.1)
--- NOTE | 2022-11-12 17:21 | History & Physical Report ---
Date of Service November 12, 2022 Assessment & Plan (1) Cat bite: Plan: Left hand cellulitis Initial bite morning of 11/11/2022. Progressive expansion of erythema since t hen. Patient is severely penicillin allergic. Cat has been vaccinated, patient does not have concern for rabies - Streaking erythema to hand/wrist. Has pain in the hand with swelling on passive finger flexion/extension, no extension of pain into the forearm. Does have streaking into the forearm. No physical exam evidence of tenosynovitis at time of admission Photos of admitting cellulitis are available in HPI PE section Nondominant hand Leukocytosis of 16.93 Neutrophilic predominance X-ray left hand: Extensive osteoarthritis. Soft tissue swelling without bony abnormality Admitted on Rocephin/Flagyl. We will continue at this time Ortho consulted MRI with and without contrast pending to evaluate for abscess and underlying tendon involvement. N.p.o. at midnight and Eliquis temporarily held pending imaging results and surgical reevaluation Atrial fibrillation Paroxysmal A-fib. In sinus rhythm on admission No history of DVT Rate controlled with diltiazem/digoxin On apixaban anticoagulation, 1 dose held pending cellulitis progression and surgical reevaluation. Digoxin level pending GERD Continue Protonix COPD with nocturnal hypoxia, on chronic O2 Stable Continue home inhalers Continue SPO2, goal oxygen 89%. Do not hyper oxygenate due to COPD physiology Depression/anxiety Continue Lexapro Trazodone nightly Continue lamotrigine 150 Lumbar stenosis with neurogenic claudication s/p spinal fusion/discectomy No acute management at this time (2) Atrial fibrillation: (3) CKD (chronic kidney disease) stage 3, GFR 30-59 ml/min: (4) CAD (coronary artery disease): History of Present Illness Primary Care Provider: Faiza Costa MD Jigna is an 82-year-old female who was seen in the ER 11/11/2022 after a cat bite injury to the hand. Was started on doxy/clindamycin as an outpatient, has had progressive worsening swelling and pain of the hand presents to the ER for reevaluation of worsened left hand cellulitis +left handed cat bite worsening over two days 9/10 pain. Minimal pain at rest. +swelling. +redness No fevers, chills, sweats but ER room is cold Has a history of afib. Denies recent RVR or need for interventions for her rate control. Thinks she is in sinus most of the time, does not know when she is in A-fib Denies chest pain, chest pressure, palpitations Nausea/vomiting/diarrhea Did take her medicines today. Has not eaten this afternoon Cat is vaccinated, is not concerned about rabies Has had cat bites to her hand before, this seems worse than the past. Her hand does hurt when she tries to flex her fingers, pain mostly goes into the hand but is not spreading into her forearm. Streaking has increased into the forearm however over the last day Medical History: Reviewed Medications: Reviewed. Reports she is allergic to azithromycin and penicillins. Has tolerated Rocephin in the Surgical History: Reviewed Family history: Reviewed Allergies: Reviewed Social History: Tobacco use about 1 pack/week. Denies alcohol use Code Status: Full code, confirmed with patient at bed Allergies Allergy/AdvReac Type Severity Reaction Status Date / Time procaine Allergy Severe novacaine Verified 11/12/22 16:50 - anaphylaxis, mouth swelling, dyspnea azithromycin Allergy Intermediate throat Verified 11/12/22 16:50 burned, lost weight fluticasone Allergy Intermediate chest pain Verified 11/12/22 16:50 (from Advair) salmeterol Allergy Intermediate chest pain Verified 11/12/22 16:50 (from Advair) chocolate flavor Allergy Mild rash Verified 10/11/22 11:18 Penicillins Allergy Unknown per Verified 11/12/22 16:50 allergy test (tolerated rocephin in the past) zolpidem AdvReac Intermediate sleep Verified 11/12/22 16:50 walking moxifloxacin AdvReac Mild N/V Verified 11/12/22 16:50 NSAIDS (Non-Steroidal AdvReac Mild advised to Verified 11/12/22 16:50 Anti-Inflamma avoid d/t ulcer hx Home Medications Medication Instructions Recorded Confirmed Type nebulizer accessories #2 ea 05/26/19 10/11/22 Rx nebulizers #1 ea 05/26/19 10/11/22 Rx psyllium seed (sugar) oral powder 1 tbsp PO DAILY PRN Constipation 03/03/20 11/12/22 History (Metamucil (sugar) oral powder) escitalopram oxalate 5 mg tablet 5 mg PO QAM #90 tabs 03/15/20 11/12/22 Rx (Lexapro) calcium carbonate 600 mg-vitamin 1 tab PO BID #60 tabs 04/28/20 11/12/22 Rx D3 10 mcg (400 unit) tablet (Calcium 600 + D(3)) escitalopram oxalate 20 mg tablet 20 mg PO DAILY #30 tabs 04/28/20 11/12/22 Rx (Lexapro) trazodone 150 mg tablet 225 mg PO HS #45 tabs 04/28/20 11/12/22 Rx loratadine 10 mg tablet 10 mg PO DAILY #30 tabs 05/29/20 11/12/22 Rx cyanocobalamin (vitamin B-12) 2,500 mcg PO DAILY #30 tabs 07/17/20 11/12/22 Rx 2,500 mcg tablet zinc gluconate 50 mg tablet 50 mg PO QAM #30 tabs 07/20/20 11/12/22 Rx aspirin 81 mg tablet,delayed 81 mg PO HS #30 tabs 08/18/20 11/12/22 Rx release cholecalciferol (vitamin D3) 50 2,000 unit PO QAM #30 tabs 09/13/20 11/12/22 Rx mcg (2,000 unit) tablet multivitamin 1 tab PO QAM #30 tabs 09/13/20 11/12/22 Rx Oxygen Home #1 ea 03/27/21 10/11/22 Rx Scooter #1 ea 04/03/21 10/11/22 Rx brimonidine 0.2 %-timolol 0.5 % 1 drp ophthalmic (eye) BID 05/03/21 11/12/22 History eye drops travoprost 0.004 % eye drops 1 drp ophthalmic (eye) QPM 05/03/21 11/12/22 History pramipexole 0.5 mg tablet (Mirapex) 0.5 mg PO HS #90 tabs 01/04/22 11/12/22 Rx dextroamphetamine-amphetamine 10 10 mg PO .COMPLEX 03/07/22 11/12/22 History mg tablet (Adderall) ipratropium 0.5 mg-albuterol 3 mg 3 ml NEB Q6H PRN shortness of 03/14/22 11/12/22 Rx (2.5 mg base)/3 mL nebulization breath or wheezing #90 mL soln digoxin 125 mcg (0.125 mg) tablet 125 mcg PO QAM #30 tabs 07/18/22 11/12/22 Rx diltiazem HCl 240 mg 240 mg PO QAM #30 caps 07/18/22 11/12/22 Rx capsule,extended release 24 hr, controlled (DILT-XR) montelukast 10 mg tablet 10 mg PO HS #90 tabs 07/18/22 11/12/22 Rx (Singulair) atorvastatin 40 mg tablet 40 mg PO HS #90 tabs 08/16/22 11/12/22 Rx oxybutynin chloride 5 mg 5 mg PO DAILY #90 tabs 09/10/22 11/12/22 Rx tablet,extended release 24 hr albuterol sulfate 90 mcg/actuation 2 puff inhalation Q4 PRN Shortness 10/11/22 11/12/22 Rx aerosol inhaler (Ventolin HFA) Of Breath Or Wheezing #3 Inhalers clindamycin HCl 300 mg capsule 300 mg PO TID 10 days #30 caps 11/11/22 11/12/22 Rx doxycycline hyclate 100 mg capsule 100 mg PO BID 10 days #20 caps 11/11/22 11/12/22 Rx acetaminophen 500 mg tablet 1,000 mg PO DIRECTED PRN Pain 11/12/22 11/12/22 History (Tylenol Extra Strength) apixaban 5 mg tablet (Eliquis) 5 mg PO BID 11/12/22 11/12/22 History ascorbic acid (vitamin C) 500 mg 500 mg PO DAILY 11/12/22 11/12/22 History tablet (Vitamin C) biotin 10 mg tablet 10 mg PO DAILY 11/12/22 11/12/22 History dorzolamide 2 % eye drops 1 drp OPL BID 11/12/22 11/12/22 History gabapentin 400 mg capsule 400 mg PO BID 11/12/22 11/12/22 History guaifenesin 600 mg tablet, 600 mg PO Q12H PRN Congestion 11/12/22 11/12/22 History extended release 12 hr (Mucinex) lamotrigine 150 mg tablet 150 mg PO HS 11/12/22 11/12/22 History pantoprazole 40 mg tablet,delayed 40 mg PO QAM 11/12/22 11/12/22 History release vitamin E 268 mg (400 unit) capsule 536 mg PO DAILY 11/12/22 11/12/22 History Past Med/Surg History Medical History Achilles tendon contracture, left ADHD Stable Anemia Anxiety disorder Well controlled- follows with psych Arthroplasty of knee (02/25/13) Asthma Atrial fibrillation paroxysmal CAD (coronary artery disease) Mild- luminal irregularities only on 2003 cardiac cath Cancer skin cancer (forehead)- removed Chronic obstructive pulmonary disease stable CKD (chronic kidney disease) stage 3, GFR 30-59 ml/min Depression Esophageal stenosis Stable- usually drinks while eating to keep food moving - no recent choking Glaucoma left eye Hearing deficit b/l HERRERA History of transient cerebral ischemia Hyperlipidemia Incontinence of urine Lumbar stenosis with neurogenic claudication Nocturnal hypoxia On home oxygen therapy 3-4L N/C at hs Peptic ulcer disease Raynaud's disease Restless leg syndrome Rheumatoid arthritis (02/25/13) Pt unsure if arthritis is OA vs RA- has seen rheum in the past and told different diagnosis Surgical History Fusion of spine lumbar x2--last 12/2018 H/O elbow surgery bilateral H/O thumb surgery right H/O toe surgery left foot History of appendectomy History of colonoscopy History of discectomy lumbar History of esophagogastroduodenoscopy (EGD) History of open reduction and internal fixation (ORIF) procedure right ankle History of surgical removal of skin lesion History of tonsillectomy History of total hip arthroplasty right hip History of total knee replacement bilateral; right TKA: 05/22/17: SAB x1 at L3-L4 + PNB at [facility] S/P ankle arthrodesis right ankle S/P foot surgery, left removal of bone spur S/P hardware removal right ankle S/P laparotomy removed adhesions to relieve bowel strangulation S/P AMANDA (total abdominal hysterectomy) Family History Family/Other Cancer Coronary heart disease Heart disease Hypertension Brother Benign familial tremor Prostate cancer Father Benign familial tremor Mother Malignant melanoma Aunt Rheumatoid arthritis Denies family history of Ovarian cancer Myocardial infarction Breast cancer Colorectal cancer Social History Smoking Status: Current every day smoker Tobacco Type: Cigarettes Age Started Using Tobacco: 19; Cigarettes Per Day: 1-2 cigarettes per day, smoked off and on since age 19, plans to quit soon; Second Hand Exposure: No; Do You Dip or Chew Tobacco: No; Hx Alcohol Use: Yes Alcohol type: beer Alcohol Intake Frequency Comment: rarely Hx Substance Use: No Preferred Language: Frisian Communication Ability: Effective Visual Impairment: No Limitations Hearing Ability: Hard of Hearing Informatics Coordinator Required: No Beliefs That Will Affect Care: None marital status: Current Living Situation: Alone Current Living Situation Comment: own apartment in custodial facility 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al status: retired How many Children do You have: 2 Feels Safe at Home: Yes Childhood Exposure to Second-Hand Smoke: No Diet: regular caffeine: Yes during the past year weight has: remained stable Dental Care, Regularly: No Physical Activity Frequency: Daily Seatbelt Use: always Sunscreen Use: Yes (sometimes ) Assistive Devices: Glasses, Nebulizer, Oxygen - at Night and Walker Review of Systems Review of Systems: All systems reviewed & are unremarkable except as noted in Subjective Physical Exam Physical Exam: General: A&Ox3. NAD. Cooperative. HEENT: Atraumatic, normocephalic. Vision/hearing grossly intact Pulm: CTAB A&P. -wheezes, -rales, -rhonchi. Symmetrical chest rise. No increased work of breathing. No respiratory distress. Cardiac: RRR, -mrg. Radial pulses intact and symmetrical. Abdominal: Nontender, nondistended, soft. BS present. Extremities: Left extremity with swelling and erythema and small area of eschar at site of cat bite as noted in photos below. Passive flexion/extension of the left fingers is limited by swelling, produces pain into the hand but not into the forearm. Results & Data Results & Data Vital Signs (Past 12 Hours) Vital Signs Temp Pulse Pulse Resp BP BP Pulse Ox 11/12/22 17:17 75 22 161/76 H 96 11/12/22 15:55 72 19 142/68 H 97 11/12/22 14:50 36.5 C 74 18 114/69 97 O2 Del Method 11/12/22 17:17 Room Air 11/12/22 15:55 Room Air 11/12/22 14:50 Room Air Code Status & VTE Plan VTE Prophylaxis Plan VTE Prophylaxis will be ordered: Yes PG Care Time/CCT Total # of Minutes Spent Total Time Spent with Patient: Total time spent is greater than 50% in coordination of care (as documented) at patient's floor/unit and/or counseling patient: Coding Level of Care Code 81723 INT INP/OBS CARE MIN Diagnoses Cat bite W55.01XA Encounter type: initial encounter Atrial fibrillation I48.0 Atrial fibrillation type: paroxysmal CKD (chronic kidney disease) stage 3, GFR 30-59 ml/min N18.3 CAD (coronary artery disease) I25.10 Coronary Disease-Associated Artery/Lesion type: [place] artery [place] vs. transplanted heart: [place] heart Associated angina: without angina (1) Cat bite Encounter type: initial encounter Qualified Code(s): W55.01XA - Bitten by cat, initial encounter (2) Atrial fibrillation Atrial fibrillation type: paroxysmal Qualified Code(s): I48.0 - Paroxysmal atrial fibrillation (4) CAD (coronary artery disease) Coronary Disease-Associated Artery/Lesion type: [place] artery [place] vs. transplanted heart: [place] heart Associated angina: without angina Qualified Code(s): I25.10 - Atherosclerotic heart disease of [place] coronary artery without angina pectoris
--- NOTE | 2022-11-12 18:08 | Emergency Department Note ---
History of Present Illness General Chief complaint: Hand Injury/Pain Stated complaint: CAT BITE ON L HAND GETTING WORSE Time Seen by Provider: 11/12/22 15:24 History of Present Illness Provider complaint: Bite left hand Onset (ago): day(s) 2 Maximum Pain Intensity: 8 82-year-old female presents emergency department for cat bite to the left hand. Patient reports that she was bit on the dorsal aspect of her left hand yesterday. She reports it is her cat and his vaccinations are up-to-date no concern for rabies. She reports that she was seen in the emergency department last night prescribed antibiotics however she woke up this morning and the redness was worse and the pain was worse. There is no drainage. No fevers. Home Medications Medication Instructions Recorded Confirmed Type nebulizer accessories #2 ea 05/26/19 10/11/22 Rx nebulizers #1 ea 05/26/19 10/11/22 Rx psyllium seed (sugar) oral powder 1 tbsp PO DAILY PRN Constipation 03/03/20 11/12/22 History (Metamucil (sugar) oral powder) escitalopram oxalate 5 mg tablet 5 mg PO QAM #90 tabs 03/15/20 11/12/22 Rx (Lexapro) calcium carbonate 600 mg-vitamin 1 tab PO BID #60 tabs 04/28/20 11/12/22 Rx D3 10 mcg (400 unit) tablet (Calcium 600 + D(3)) escitalopram oxalate 20 mg tablet 20 mg PO DAILY #30 tabs 04/28/20 11/12/22 Rx (Lexapro) trazodone 150 mg tablet 225 mg PO HS #45 tabs 04/28/20 11/12/22 Rx loratadine 10 mg tablet 10 mg PO DAILY #30 tabs 05/29/20 11/12/22 Rx cyanocobalamin (vitamin B-12) 2,500 mcg PO DAILY #30 tabs 07/17/20 11/12/22 Rx 2,500 mcg tablet zinc gluconate 50 mg tablet 50 mg PO QAM #30 tabs 07/20/20 11/12/22 Rx aspirin 81 mg tablet,delayed 81 mg PO HS #30 tabs 08/18/20 11/12/22 Rx release cholecalciferol (vitamin D3) 50 2,000 unit PO QAM #30 tabs 09/13/20 11/12/22 Rx mcg (2,000 unit) tablet multivitamin 1 tab PO QAM #30 tabs 09/13/20 11/12/22 Rx Oxygen Home #1 ea 03/27/21 10/11/22 Rx Scooter #1 ea 04/03/21 10/11/22 Rx brimonidine 0.2 %-timolol 0.5 % 1 drp ophthalmic (eye) BID 05/03/21 11/12/22 History eye drops travoprost 0.004 % eye drops 1 drp ophthalmic (eye) QPM 05/03/21 11/12/22 H istory pramipexole 0.5 mg tablet (Mirapex) 0.5 mg PO HS #90 tabs 01/04/22 11/12/22 Rx dextroamphetamine-amphetamine 10 10 mg PO .COMPLEX 03/07/22 11/12/22 History mg tablet (Adderall) ipratropium 0.5 mg-albuterol 3 mg 3 ml NEB Q6H PRN shortness of 03/14/22 11/12/22 Rx (2.5 mg base)/3 mL nebulization breath or wheezing #90 mL soln digoxin 125 mcg (0.125 mg) tablet 125 mcg PO QAM #30 tabs 07/18/22 11/12/22 Rx diltiazem HCl 240 mg 240 mg PO QAM #30 caps 07/18/22 11/12/22 Rx capsule,extended release 24 hr, controlled (DILT-XR) montelukast 10 mg tablet 10 mg PO HS #90 tabs 07/18/22 11/12/22 Rx (Singulair) atorvastatin 40 mg tablet 40 mg PO HS #90 tabs 08/16/22 11/12/22 Rx oxybutynin chloride 5 mg 5 mg PO DAILY #90 tabs 09/10/22 11/12/22 Rx tablet,extended release 24 hr albuterol sulfate 90 mcg/actuation 2 puff inhalation Q4 PRN Shortness 10/11/22 11/12/22 Rx aerosol inhaler (Ventolin HFA) Of Breath Or Wheezing #3 Inhalers clindamycin HCl 300 mg capsule 300 mg PO TID 10 days #30 caps 11/11/22 11/12/22 Rx doxycycline hyclate 100 mg capsule 100 mg PO BID 10 days #20 caps 11/11/22 11/12/22 Rx acetaminophen 500 mg tablet 1,000 mg PO DIRECTED PRN Pain 11/12/22 11/12/22 History (Tylenol Extra Strength) apixaban 5 mg tablet (Eliquis) 5 mg PO BID 11/12/22 11/12/22 History ascorbic acid (vitamin C) 500 mg 500 mg PO DAILY 11/12/22 11/12/22 History tablet (Vitamin C) biotin 10 mg tablet 10 mg PO DAILY 11/12/22 11/12/22 History dorzolamide 2 % eye drops 1 drp OPL BID 11/12/22 11/12/22 History gabapentin 400 mg capsule 400 mg PO BID 11/12/22 11/12/22 History guaifenesin 600 mg tablet, 600 mg PO Q12H PRN Congestion 11/12/22 11/12/22 History extended release 12 hr (Mucinex) lamotrigine 150 mg tablet 150 mg PO HS 11/12/22 11/12/22 History pantoprazole 40 mg tablet,delayed 40 mg PO QAM 11/12/22 11/12/22 History release vitamin E 268 mg (400 unit) capsule 536 mg PO DAILY 11/12/22 11/12/22 History Allergies Allergy/AdvReac Type Severity Reaction Status Date / Time procaine Allergy Severe novacaine Verified 11/12/22 16:50 - anaphylaxis, mouth swelling, dyspnea azithromycin Allergy Intermediate throat Verified 11/12/22 16:50 burned, lost weight fluticasone Allergy Intermediate chest pain Verified 11/12/22 16:50 (from Advair) salmeterol Allergy Intermediate chest pain Verified 11/12/22 16:50 (from Advair) chocolate flavor Allergy Mild rash Verified 10/11/22 11:18 Penicillins Allergy Unknown per Verified 11/12/22 16:50 allergy test (tolerated rocephin in the past) zolpidem AdvReac Intermediate sleep Verified 11/12/22 16:50 walking moxifloxacin AdvReac Mild N/V Verified 11/12/22 16:50 NSAIDS (Non-Steroidal AdvReac Mild advised to Verified 11/12/22 16:50 Anti-Inflamma avoid d/t ulcer hx Past Med/Surg History Medical History Achilles tendon contracture, left ADHD Stable Anemia Anxiety disorder Well controlled- follows with psych Arthroplasty of knee (02/25/13) Asthma Atrial fibrillation paroxysmal CAD (coronary artery disease) Mild- luminal irregularities only on 2003 cardiac cath Cancer skin cancer (forehead)- removed Chronic obstructive pulmonary disease stable CKD (chronic kidney disease) stage 3, GFR 30-59 ml/min Depression Esophageal stenosis Stable- usually drinks while eating to keep food moving - no recent choking Glaucoma left eye Hearing deficit b/l HERRERA History of transient cerebral ischemia Hyperlipidemia Incontinence of urine Lumbar stenosis with neurogenic claudication Nocturnal hypoxia On home oxygen therapy 3-4L N/C at hs Peptic ulcer disease Raynaud's disease Restless leg syndrome Rheumatoid arthritis (02/25/13) Pt unsure if arthritis is OA vs RA- has seen rheum in the past and told different diagnosis Surgical History Fusion of spine lumbar x2--last 12/2018 H/O elbow surgery bilateral H/O thumb surgery right H/O toe surgery left foot History of appendectomy History of colonoscopy History of discectomy lumbar History of esophagogastroduodenoscopy (EGD) History of open reduction and internal fixation (ORIF) procedure right ankle History of surgical removal of skin lesion History of tonsillectomy History of total hip arthroplasty right hip History of total knee replacement bilateral; right TKA: 05/22/17: SAB x1 at L3-L4 + PNB at [facility] S/P ankle arthrodesis right ankle S/P foot surgery, left removal of bone spur S/P hardware removal right ankle S/P laparotomy removed adhesions to relieve bowel strangulation S/P AMANDA (total abdominal hysterectomy) Family History Family/Other Cancer Coronary heart disease Heart disease Hypertension Brother Benign familial tremor Prostate cancer Father Benign familial tremor Mother Malignant melanoma Aunt Rheumatoid arthritis Denies family history of Ovarian cancer Myocardial infarction Breast cancer Colorectal cancer Social History Smoking Status: Current every day smoker Tobacco Type: Cigarettes Age Started Using Tobacco: 19; Cigarettes Per Day: 1-2 cigarettes per day, smoked off and on since age 19, plans to quit soon; Second Hand Exposure: No; Do You Dip or Chew Tobacco: No; Hx Alcohol Use: Yes Alcohol type: beer Alcohol Intake Frequency Comment: rarely Hx Substance Use: No Preferred Language: Sinhala Communication Ability: Effective Visual Impairment: No Limitations Hearing Ability: Hard of Hearing Accredited Pharmacy Technician Required: No Beliefs That Will Affect Care: None marital status: Current Living Situation: Alone Current Living Situation Comment: own apartment in intermediate facility 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al status: retired How many Children do You have: 2 Feels Safe at Home: Yes Childhood Exposure to Second-Hand Smoke: No Diet: regular caffeine: Yes during the past year weight has: remained stable Dental Care, Regularly: No Physical Activity Frequency: Daily Seatbelt Use: always Sunscreen Use: Yes (sometimes ) Assistive Devices: Glasses, Nebulizer, Oxygen - at Night and Walker Physical Exam Vital Signs Vital Signs - 24 hr 11/12/22 14:50 11/12/22 15:55 11/12/22 17:17 Temperature 36.5 C Temperature Source Temporal Artery Scan Pulse Rate 74 Pulse Rate [Right Finger] 72 75 Respiratory Rate 18 19 22 Respiratory Effort / Characteristics Non-Labored Respiratory Depth Normal Blood Pressure 114/69 Blood Pressure [Right Arm] 142/68 H 161/76 H Blood Pressure Mean 84 Blood Pressure Mean [Right Arm] 92 104 Pulse Oximetry 97 97 96 Oxygen Delivery Method Room Air Room Air Room Air Sepsis Recent Fever Within 48 Hours No Sepsis New/Unexplained Change in Mental Status No Sepsis Action Taken by Nursing No Action Required 11/12/22 18:00 Temperature Temperature Source Pulse Rate Pulse Rate [Right Finger] 73 Respiratory Rate 22 Respiratory Effort / Characteristics Respiratory Depth Blood Pressure Blood Pressure [Right Arm] 155/74 H Blood Pressure Mean Blood Pressure Mean [Right Arm] 101 Pulse Oximetry 95 Oxygen Delivery Method Room Air Sepsis Recent Fever Within 48 Hours Sepsis New/Unexplained Change in Mental Status Sepsis Action Taken by Nursing Physical Exam GENERAL: She is oriented to person, place, and time. She appears well-developed and well-nourished. She does not appear distressed. CV: Normal rate, regular rhythm, normal heart sounds and intact distal pulses. There is no peripheral edema. Palpable radial pulses bue. PULM/CHEST: Effort normal and breath sounds normal. No respiratory distress. No stridor. She has no wheezes. She has no rales. MUSC/SKEL: Left upper extremity: There is a tiera where the cat bit her or over the dorsal aspect of her left hand. There is surrounding erythema extending over the dorsal aspect of her wrist and into her forearm. There is warmth and erythema over this area. No fluctuant areas. There is no pain with extension or flexion of the wrist. There is no pain on palpation of the flexor tendons. Compartments of the upper extremity are soft. Palpable radial and ulnar pulse. Motor and sensation intact in the median radial and ulnar nerve distribution. No concern for flexor tenosynovitis or compartment syndrome. Course Course 1524: The patient was evaluated in room C1. A complete history and physical exam was performed Cardiac monitoring: An order was placed for continuous cardiac monitoring. The monitor shows a rate of 70 with sinus rhythm interpreted by me 1551: Vital signs stable. Spoke with Dr. Helen Mackay on-call orthopedics and hand surgery. I explained to him that the patient's cellulitis appears to be getting worse but there does not to be any fluctuant area that needs drainage. Both he and I feel like the patient would benefit from IV antibiotics and admission. He states he could be on consult if the patient can be admitted to the medicine service that would be ideal. 1650: Vital signs stable. Labs show leukocytosis 16. Lactic acid within normal limits. Patient given Rocephin and Flagyl. [facility]. Administered Medications Discontinued Medications Metronidazole (Flagyl) 500 mg in 100 mls @ 100 mls/hr IV NOW STA Stop: 11/12/22 15:54 Last Infusion: 11/12/22 17:59 Dose: 0 mls/hr Documented By: Admin: 11/12/22 16:30 Dose: 100 mls/hr Documented By: [facility] Ceftriaxone Sodium (Rocephin) 2,000 mg in 70 mls @ 140 mls/hr IV NOW STA Stop: 11/12/22 15:24 Last Infusion: 11/12/22 16:32 Dose: 0 mls/hr Documented By: [facility] Admin: 11/12/22 16:04 Dose: 140 mls/hr Documented By: [facility] Medical Decision Making Medical Records Attestation: I reviewed the patient's medical records. External medical records reviewed. Patient was seen in the emergency department yesterday and started on doxycycline and clindamycin for cat bite given her allergy to penicillin. Laboratory Data Attestation: I reviewed the patient's lab results. 11/12/22 15:52 11/12/22 15:52 Lab Results 11/12/22 11/12/22 11/12/22 Range/Units 15:52 15:52 15:52 WBC 16.93 H (4.8-10.8) K/ul RBC 4.69 (4.20-5.40) M/uL Hgb 13.8 (12.0-16.0) g/dl Hct 42.5 (37.0-47.0) % MCV 90.6 (80.0-100.0) fL MCH 29.4 (25.0-34.0) pg MCHC 32.5 (32.0-36.0) g/dL RDW Std Deviation 47.3 H (36.4-46.3) fL RDW Coeff of Aspen 14.3 (11.5-14.5) % Plt Count 199 (130-400) K/uL MPV 10.4 (9.4-12.4) fL Immature Gran % (Auto) 0.5 % Neut % (Auto) 82.5 % Lymph % (Auto) 10.1 % Drew % (Auto) 6.0 % Eos % (Auto) 0.6 % Baso % (Auto) 0.3 % Neut # (Auto) 13.98 H (1.40-6.50) K/uL Lymph # (Auto) 1.71 (1.2-3.4) K/uL Drew # (Auto) 1.01 H (0.11-0.59) K/uL Eos # (Auto) 0.10 (0-0.50) K/uL Baso # (Auto) 0.05 (0-0.2) K/uL Immature Gran # (Auto) 0.08 (0.01-0.20) K/uL PT Cancelled INR Cancelled APTT Cancelled PTT Ratio Cancelled Sodium 140 (136-145) mmol/L Potassium 3.8 (3.5-5.1) mmol/L Chloride 104 (98-107) mmol/L Carbon Dioxide 29 (21-32) mmol/L Anion Gap 7 (3-11) BUN 24 H (6-23) mg/dl Creatinine 0.70 (0.6-1.2) mg/dl Est Cr Clr Drug Dosing 60.4 ml/min Est GFR ( Amer) 92.9 ml/min Est GFR (Non-Af Amer) 80.1 ml/min BUN/Creatinine Ratio 34.3 H (10-20) Glucose 108 H (70-99(Fasting)) mg/dl Lactate (0.4-2.0) mmol/L Calcium 10.5 H (8.6-10.3) mg/dl Total Bilirubin 0.6 (0.2-1.0) mg/dl AST 24 (13-39) U/L ALT 23 (7-52) U/L Alkaline Phosphatase 91 (34-104) U/L Total Protein 7.0 (6.0-8.3) gm/dl Albumin 4.2 (3.4-5.0) gm/dl Globulin 2.8 (2.5-4.0) gm/dl Albumin/Globulin Ratio 1.5 (0.9-2) Procalcitonin SARS-CoV-2, RNA, NAAT (NEGATIVE) 11/12/22 11/12/22 11/12/22 Range/Units 15:52 15:52 16:33 WBC (4.8-10.8) K/ul RBC (4.20-5.40) M/uL Hgb (12.0-16.0) g/dl Hct (37.0-47.0) % MCV (80.0-100.0) fL MCH (25.0-34.0) pg MCHC (32.0-36.0) g/dL RDW Std Deviation (36.4-46.3) fL RDW Coeff of Aspen (11.5-14.5) % Plt Count (130-400) K/uL MPV (9.4-12.4) fL Immature Gran % (Auto) % Neut % (Auto) % Lymph % (Auto) % Drew % (Auto) % Eos % (Auto) % Baso % (Auto) % Neut # (Auto) (1.40-6.50) K/uL Lymph # (Auto) (1.2-3.4) K/uL Drew # (Auto) (0.11-0.59) K/uL Eos # (Auto) (0-0.50) K/uL Baso # (Auto) (0-0.2) K/uL Immature Gran # (Auto) (0.01-0.20) K/uL PT INR APTT PTT Ratio Sodium (136-145) mmol/L Potassium (3.5-5.1) mmol/L Chloride (98-107) mmol/L Carbon Dioxide (21-32) mmol/L Anion Gap (3-11) BUN (6-23) mg/dl Creatinine (0.6-1.2) mg/dl Est Cr Clr Drug Dosing ml/min Est GFR ( Amer) ml/min Est GFR (Non-Af Amer) ml/min BUN/Creatinine Ratio (10-20) Glucose (70-99(Fasting)) mg/dl Lactate 1.6 (0.4-2.0) mmol/L Calcium (8.6-10.3) mg/dl Total Bilirubin (0.2-1.0) mg/dl AST (13-39) U/L ALT (7-52) U/L Alkaline Phosphatase (34-104) U/L Total Protein (6.0-8.3) gm/dl Albumin (3.4-5.0) gm/dl Globulin (2.5-4.0) gm/dl Albumin/Globulin Ratio (0.9-2) Procalcitonin Cancelled SARS-CoV-2, RNA, NAAT NEGATIVE (NEGATIVE) Imaging Data Attestation: I personally reviewed and interpreted this imaging study as follows: My Impression: Hand x-ray: No foreign body Radiologist's Impression: Hand X-Ray 11/12/22 15:39 XR hand LT min 3V routine CLINICAL HISTORY: cat bite TECHNIQUE: 3 views of the left hand were obtained. Comparison: Comparison is made to left hand radiograph 07/23/2013 FINDINGS: There is no evidence of an acute fracture. Extensive joint space narrowing and osteophyte formation is seen most prominently in the interphalangeal joints. Soft tissue swelling is seen. 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 Soft tissue swelling without underlying bony abnormality. ACT 112: Negative or not required by law. Electronically signed by: Aaron Luna M.D. 11/12/2022 4:32 PM ECG Data Attestation: I personally reviewed and interpreted this ECG as follows: Rate (beats per minute): 75 Rhythm: + normal sinus ECG Intervals/blocks: + Normal QRS, + Normal DC and + Normal QT-c ECG ST segments: + Normal ST segments [facility] Narrative 1524: The patient was evaluated in room C1. A complete history and physical exam was performed Cardiac monitoring: An order was placed for continuous cardiac monitoring. The monitor shows a rate of 70 with sinus rhythm interpreted by me 1551: Vital signs stable. Spoke with Dr. Helen Mackay on-call orthopedics and hand surgery. I explained to him that the patient's cellulitis appears to be getting worse but there does not to be any fluctuant area that needs drainage. Both he and I feel like the patient would benefit from IV antibiotics and admission. He states he could be on consult if the patient can be admitted to the medicine service that would be ideal. 1650: Vital signs stable. Labs show leukocytosis 16. Lactic acid within normal limits. Patient given Rocephin and Flagyl. [facility]. Impression & Plan Cat bite, Cellulitis Discharge Plan Visit Data Chief Complaint: Hand Injury/Pain Stated Complaint: CAT BITE ON L HAND GETTING WORSE ED Provider: Harman Dooley Discharge Problem: Cat bite, Cellulitis Patient Disposition: Admitted As Inpatient Forms Stand Alone Forms: My [facility] Prescriptions Prescriptions: No Action (DME) nebulizer accessories Kit See Rx Instructions .ROUTE .MEDSUPPLY Qty: 2 0RF Rx Instructions: As directed. Dx Codes: J45.909, J44.9 (DME) nebulizers Mis See Rx Instructions .ROUTE .MEDSUPPLY Qty: 1 0RF Rx Instructions: As directed. Patient needs new nebulizer as hers is not working correctly. Dx Codes: J45.909, J44.9 escitalopram oxalate [Lexapro] 5 mg tablet 5 mg PO QAM Qty: 90 1RF Rx Instructions: TOTAL DOSE 25 MG--TAKES WITH 20 MG TAB. calcium carbonate-vitamin D3 [Calcium 600 + D(3)] 600 mg(1,500mg) -400 unit tablet 1 tab PO BID Qty: 60 5RF escitalopram oxalate [Lexapro] 20 mg tablet 20 mg PO DAILY Qty: 30 5RF Rx Instructions: TOTAL DOSE 25 MG--TAKES WITH 5 MG TAB. trazodone 150 mg tablet 225 mg PO HS Qty: 45 5RF Rx Instructions: TAKE 1.5 TABLETS loratadine 10 mg tablet 10 mg PO DAILY Qty: 30 5RF cyanocobalamin (vitamin B-12) 2,500 mcg tablet 2,500 mcg PO DAILY Qty: 30 5RF zinc gluconate 50 mg tablet 50 mg PO QAM Qty: 30 5RF aspirin 81 mg tablet,delayed release (DR/EC) 81 mg PO HS Qty: 30 5RF cholecalciferol (vitamin D3) 50 mcg (2,000 unit) tablet 2,000 unit PO QAM Qty: 30 5RF multivitamin Tablet 1 tab PO QAM Qty: 30 5RF (DME) Oxygen Home Liters Per Minute See Rx Instructions .Route Qty: 1 0RF Rx Instructions: 2L/min O2 for use when sleeping. Pt is mouth breather, needs appropriate mask (DME) Scooter Misc See Rx Instructions .Route Qty: 1 0RF Rx Instructions: As directed. pramipexole [Mirapex] 0.5 mg tablet 0.5 mg PO HS Qty: 90 3RF ipratropium-albuterol 0.5 mg-3 mg(2.5 mg base)/3 mL solution for nebulization 3 ml NEB Q6H PRN (Reason: shortness of breath or wheezing) Qty: 90 1RF Rx Instructions: Shortness of breath or wheezing J45.909 digoxin 125 mcg (0.125 mg) tablet 125 mcg PO QAM Qty: 30 5RF montelukast [Singulair] 10 mg tablet 10 mg PO HS Qty: 90 1RF diltiazem HCl [DILT-XR] 240 mg capsule,ext.rel 24h degradable 240 mg PO QAM Qty: 30 5RF atorvastatin 40 mg tablet 40 mg PO HS Qty: 90 1RF oxybutynin chloride 5 mg tablet extended release 24hr 5 mg PO DAILY Qty: 90 3RF travoprost 0.004 % drops 1 drp ophthalmic (eye) QPM brimonidine-timolol 0.2-0.5 % drops 1 drp ophthalmic (eye) BID dextroamphetamine-amphetamine [Adderall] 10 mg tablet 10 mg PO .COMPLEX Rx Instructions: 10 mg orally TAKE TWO TABLES IN AM AND ONE IN AFTERNOON; albuterol sulfate [Ventolin HFA] 90 mcg/actuation HFA aerosol inhaler 2 puff Inhalation Q4 PRN (Reason: Shortness Of Breath Or Wheezing) Qty: 3 5RF Metamucil (sugar) Powder 1 tbsp PO DAILY PRN (Reason: Constipation) biotin 10 mg Tablet 10 mg PO DAILY acetaminophen [Tylenol Extra Strength] 500 mg Tablet 1,000 mg PO DIRECTED PRN (Reason: Pain) ascorbic acid (vitamin C) [Vitamin C] 500 mg Tablet 500 mg PO DAILY vitamin E 268 mg (400 unit) Capsule 536 mg PO DAILY dorzolamide 2 % drops 1 drp OPL BID guaifenesin [Mucinex] 600 mg Tablet Extended Release 12hr 600 mg PO Q12H PRN (Reason: Congestion) lamotrigine 150 mg tablet 150 mg PO HS Rx Instructions: TAKE 1 TABLET BY MOUTH AT BEDTIME gabapentin 400 mg capsule 400 mg PO BID Rx Instructions: TAKE ONE CAPSULE BY MOUTH TWICE DAILY pantoprazole 40 mg tablet,delayed release (DR/EC) 40 mg PO QAM Rx Instructions: TAKE ONE TABLET BY MOUTH EVERY MORNING Eliquis 5 mg tablet 5 mg PO BID Rx Instructions: TAKE 1 TABLET BY MOUTH IN THE MORNING AND AT BEDTIME doxycycline hyclate 100 mg capsule 100 mg PO BID 10 Days Qty: 20 0RF Rx Instructions: ORDERED 11/11/22 clindamycin HCl 300 mg capsule 300 mg PO TID 10 Days Qty: 30 0RF Rx Instructions: ORDERED 11/11/22 Referrals Referrals: Faiza Costa MD [Primary Care Provider] -
[2022-11-12 18:19] LABS: Partial Thromboplastin Ratio 1.1; Partial Thromboplastin Time 31.6 Seconds (21.0-31.0); Prothrombin Time 11.3 Seconds (9.0-12.0)
[2022-11-12] MEDS ORDERED: ALBUT/IPRATROP 3MG/0.5MG NEB 3 ML VIAL NEB PRN (19:20)
[2022-11-12] MEDS ORDERED: guaiFENesin 600 MG TABCR PO PRN (19:20)
[2022-11-12] MEDS ORDERED: ALBUTEROL HFA 8 GM INHALER INH PRN (19:20)
[2022-11-12] MEDS: ACETAMINOPHEN 500 MG TAB PO PRN (19:56)
[2022-11-12] MEDS: TRAVOPROST Z 0.004% OPH SOLN 2.5 ML BTL OP SCH (20:44)
[2022-11-12] MEDS: BRIMONIDINE TARTRATE 0.2% 5ML OP SCH (21:01)
[2022-11-12] MEDS: TIMOLOL MALEATE 0.5% OP SOLN 5 ML BTL OP SCH (21:11)
[2022-11-12] MEDS: traMADol HCL 50 MG TABLET PO PRN (21:22)
[2022-11-12] MEDS ORDERED: GADOBUTROL 65ML VIAL IV ONE (22:17)
[2022-11-12] MEDS: GABAPENTIN 400 MG CAP PO SCH (22:33)
[2022-11-12] MEDS: lamoTRIgine 100 MG TAB PO SCH (22:33)
[2022-11-12] MEDS: ASPIRIN 81 MG ECTAB PO SCH (22:33)
[2022-11-12] MEDS: DORZOLAMIDE HCL 2% OPH SOLN 10 ML BTL OPL SCH (22:33)
[2022-11-12] MEDS: PRAMIPEXOLE DIHYDROCHLO 0.5 MG TAB PO SCH (22:34)
[2022-11-12] MEDS: ATORVASTATIN 40 MG TAB PO SCH (22:34)
[2022-11-12] MEDS: MONTELUKAST SODIUM 10 MG TABLET PO SCH (22:34)
[2022-11-12] MEDS: traZODone HCL 50 MG TAB PO SCH (22:35)
[2022-11-12] MEDS: metroNIDAZOLE 500 MG/100 ML BAG IV SCH (23:00)
--- NOTE | 2022-11-13 00:01 | Magnetic Resonance Report ---
Exam(s): MRI LEFT HAND W/WO Contrast IV Amt: 7CC GADAVIST EXAM: MR Left Upper Extremity Without and With Intravenous Contrast, Hand CLINICAL HISTORY: Reason for exam: cellulitis, ?abscess. TECHNIQUE: Multiplanar magnetic resonance images of the left hand without and with intravenous contrast. CONTRAST: Patient received 7CC GADAVIST of IV contrast COMPARISON: No relevant prior studies available. FINDINGS: Diffuse dorsal soft tissue edema consistent with cellulitis. No tenosynovitis. There is a drainage tract to the skin surface along the dorsal first web space on image 9-27 which measures 6 x 6 mm. Bone marrow signal. No osteomyelitis. No septic arthritis. No soft tissue gas. IMPRESSION: Diffuse dorsal soft tissue edema consistent with cellulitis. No tenosynovitis. There is a drainage tract to the skin surface along the dorsal first web space on image 9-27 which measures 6 x 6 mm. Electronically signed by: Dougie Gudino MD 11/13/22 00:00 AM
[2022-11-13] MEDS: PLASMA-LYTE A 1,000 ML IV SCH ×2 (00:05→12:55)
[2022-11-13] MEDS: traMADol HCL 50 MG TABLET PO PRN ×2 (07:43→15:43)
[2022-11-13 08:03] LABS: Basophils # (auto) 0.03 K/uL (0-0.2); Basophils % (auto) 0.3 %; Eosinophils # (auto) 0.16 K/uL (0-0.50); Eosinophils % (auto) 1.5 %; Hematocrit (blood only) 37.5 % (37.0-47.0); Hemoglobin 12.1 g/dl (12.0-16.0); Immature Granulocytes # (auto) 0.06 K/uL (0.01-0.20); Immature Granulocytes % (auto) 0.5 %; Lymphocytes % (auto) 18.2 %; Mean Corpuscular Hemoglobin 29.8 pg (25.0-34.0); Mean Corpuscular Hgb Conc 32.3 g/dL (32.0-36.0); Mean Corpuscular Volume 92.4 fL (80.0-100.0); Mean Platelet Volume 9.8 fL (9.4-12.4); Monocytes # (auto) 0.78 K/uL (0.11-0.59); Monocytes % (auto) 7.1 %; Neutrophils # (auto) 7.95 K/uL (1.40-6.50); Neutrophils % (auto) 72.4 %; Platelet Count 163 K/uL (130-400); RDW Standard Deviation 47.4 fL (36.4-46.3); Red Blood Count 4.06 M/uL (4.20-5.40); White Blood Count 10.98 K/ul (4.8-10.8)
[2022-11-13 08:18] LABS: C Reactive Protein 12.29 mg/dl (0-0.5); Calcium 9.4 mg/dl (8.6-10.3); Creatinine Clr Calc Pharmacy 75.2 ml/min; Est GFR (African American) 99.9 ml/min; Est GFR (Non-African American) 86.2 ml/min; Potassium 3.8 mmol/L (3.5-5.1)
[2022-11-13] MEDS ORDERED: ESCITALOPRAM OXALATE 20 MG TAB PO SCH (09:00)
[2022-11-13] MEDS: metroNIDAZOLE 500 MG/100 ML BAG IV SCH ×4 (09:02→23:00)
[2022-11-13] MEDS: ASCORBIC ACID 500 MG TAB PO SCH (09:07)
[2022-11-13] MEDS: DIGOXIN 0.125 MG TAB PO SCH (09:07)
[2022-11-13] MEDS: LORATADINE 10 MG TAB PO SCH (09:08)
[2022-11-13] MEDS: PANTOprazole 40 MG TAB PO SCH (09:08)
[2022-11-13] MEDS: dilTIAZem HCL 240 MG CAPCR PO SCH (09:08)
[2022-11-13] MEDS: GABAPENTIN 400 MG CAP PO SCH ×2 (09:08→21:02)
[2022-11-13] MEDS: OXYBUTYNIN CHLORIDE XL 5 MG TABCR PO SCH (09:09)
[2022-11-13] MEDS: BRIMONIDINE TARTRATE 0.2% 5ML OP SCH ×2 (09:10→21:00)
[2022-11-13] MEDS: TIMOLOL MALEATE 0.5% OP SOLN 5 ML BTL OP SCH ×2 (09:10→21:49)
[2022-11-13] MEDS: DORZOLAMIDE HCL 2% OPH SOLN 10 ML BTL OPL SCH ×2 (09:10→22:25)
[2022-11-13] MEDS: AMPHETAMINE ASP/SULF/DEXTRAMPH 10 MG TAB PO SCH ×2 (09:14→15:08)
--- NOTE | 2022-11-13 12:14 | Electrocardiogram Report ---
Test Reason : Blood Pressure : / mmHG Vent. Rate : 075 BPM Atrial Rate : 075 BPM P-R Int : 118 ms QRS Dur : 098 ms QT Int : 364 ms P-R-T Axes : 084 051 085 degrees QTc Int : 406 ms Normal sinus rhythm Nonspecific ST and T wave abnormality Abnormal ECG When compared with ECG of 17-FEB-2020 10:36, No significant change was found Confirmed by Davis Vazquez ([id number]) on 11/13/2022 12:14:48 PM Referred By: Faiza Costa Confirmed By:Davis Vazquez
--- NOTE | 2022-11-13 12:29 | Electrocardiogram Report ---
Test Reason : Blood Pressure : / mmHG Vent. Rate : 065 BPM Atrial Rate : 065 BPM P-R Int : 142 ms QRS Dur : 102 ms QT Int : 392 ms P-R-T Axes : 083 060 082 degrees QTc Int : 407 ms Normal sinus rhythm Nonspecific ST abnormality Abnormal ECG When compared with ECG of 12-NOV-2022 17:14, (unconfirmed) No significant change was found Confirmed by Davis Vazquez ([id number]) on 11/13/2022 12:29:13 PM Referred By: Faiza Costa Confirmed By:Davis Vazquez
--- NOTE | 2022-11-13 13:53 | Orthopedic Consultation ---
Date of Service November 13, 2022 Assessment & Plan (1) Cellulitis: She was seen and examined by Dr. Tapia. She has cellulitis of her left hand, no abscess. Continue nonoperative management with IV antibiotics per Hospitalist service. No surgery planned so she does not need to npo for orthopedics. Will continue to follow. History of Present Illness Reason for Consultation: . cat bite Requesting Physician: . Attending Physician: Leila Baum MD . Jigna is a 82 year old patient that we were consulted to see regarding a cat bite on her left hand. She was bit by her cat 2 days ago and came to the ER that day. She was discharged on oral antibiotics. However, her pain, redness, and swelling worsened yesterday, including redness streaking up her arm to her shoulder. She came back to the ER and was admitted to the hospitalist service. She has been receiving IV rocephin and flagyl. She does think her symptoms have improved slightly. Denies any drainage from the hand. Allergies Allergy/AdvReac Type Severity Reaction Status Date / Time procaine Allergy Severe novacaine Verified 11/12/22 16:50 - anaphylaxis, mouth swelling, dyspnea azithromycin Allergy Intermediate throat Verified 11/12/22 16:50 burned, lost weight fluticasone Allergy Intermediate chest pain Verified 11/12/22 16:50 (from Advair) salmeterol Allergy Intermediate chest pain Verified 11/12/22 16:50 (from Advair) chocolate flavor Allergy Mild rash Verified 10/11/22 11:18 Penicillins Allergy Unknown per Verified 11/12/22 16:50 allergy test (tolerated rocephin in the past) zolpidem AdvReac Intermediate sleep Verified 11/12/22 16:50 walking moxifloxacin AdvReac Mild N/V Verified 11/12/22 16:50 NSAIDS (Non-Steroidal AdvReac Mild advised to Verified 11/12/22 16:50 Anti-Inflamma avoid d/t ulcer hx Home Medications Medication Instructions Recorded Confirmed Type nebulizer accessories #2 ea 05/26/19 10/11/22 Rx nebulizers #1 ea 05/26/19 10/11/22 Rx psyllium seed (sugar) oral powder 1 tbsp PO DAILY PRN Constipation 03/03/20 11/12/22 History (Metamucil (sugar) oral powder) escitalopram oxalate 5 mg tablet 5 mg PO QAM #90 tabs 03/15/20 11/12/22 Rx (Lexapro) calcium carbonate 600 mg-vitamin 1 tab PO BID #60 tabs 04/28/20 11/12/22 Rx D3 10 mcg (400 unit) tablet (Calcium 600 + D(3)) escitalopram oxalate 20 mg tablet 20 mg PO DAILY #30 tabs 04/28/20 11/12/22 Rx (Lexapro) trazodone 150 mg tablet 225 mg PO HS #45 tabs 04/28/20 11/12/22 Rx loratadine 10 mg tablet 10 mg PO DAILY #30 tabs 05/29/20 11/12/22 Rx cyanocobalamin (vitamin B-12) 2,500 mcg PO DAILY #30 tabs 07/17/20 11/12/22 Rx 2,500 mcg tablet zinc gluconate 50 mg tablet 50 mg PO QAM #30 tabs 07/20/20 11/12/22 Rx aspirin 81 mg tablet,delayed 81 mg PO HS #30 tabs 08/18/20 11/12/22 Rx release cholecalciferol (vitamin D3) 50 2,000 unit PO QAM #30 tabs 09/13/20 11/12/22 Rx mcg (2,000 unit) tablet multivitamin 1 tab PO QAM #30 tabs 09/13/20 11/12/22 Rx Oxygen Home #1 ea 03/27/21 10/11/22 Rx Scooter #1 ea 04/03/21 10/11/22 Rx brimonidine 0.2 %-timolol 0.5 % 1 drp ophthalmic (eye) BID 05/03/21 11/12/22 History eye drops travoprost 0.004 % eye drops 1 drp ophthalmic (eye) QPM 05/03/21 11/12/22 History pramipexole 0.5 mg tablet (Mirapex) 0.5 mg PO HS #90 tabs 01/04/22 11/12/22 Rx dextroamphetamine-amphetamine 10 10 mg PO .COMPLEX 03/07/22 11/12/22 History mg tablet (Adderall) ipratropium 0.5 mg-albuterol 3 mg 3 ml NEB Q6H PRN shortness of 03/14/22 11/12/22 Rx (2.5 mg base)/3 mL nebulization breath or wheezing #90 mL soln digoxin 125 mcg (0.125 mg) tablet 125 mcg PO QAM #30 tabs 07/18/22 11/12/22 Rx diltiazem HCl 240 mg 240 mg PO QAM #30 caps 07/18/22 11/12/22 Rx capsule,extended release 24 hr, controlled (DILT-XR) montelukast 10 mg tablet 10 mg PO HS #90 tabs 07/18/22 11/12/22 Rx (Singulair) atorvastatin 40 mg tablet 40 mg PO HS #90 tabs 08/16/22 11/12/22 Rx oxybutynin chloride 5 mg 5 mg PO DAILY #90 tabs 09/10/22 11/12/22 Rx tablet,extended release 24 hr albuterol sulfate 90 mcg/actuation 2 puff inhalation Q4 PRN Shortness 10/11/22 11/12/22 Rx aerosol inhaler (Ventolin HFA) Of Breath Or Wheezing #3 Inhalers clindamycin HCl 300 mg capsule 300 mg PO TID 10 days #30 caps 11/11/22 11/12/22 Rx doxycycline hyclate 100 mg capsule 100 mg PO BID 10 days #20 caps 11/11/22 11/12/22 Rx acetaminophen 500 mg tablet 1,000 mg PO DIRECTED PRN Pain 11/12/22 11/12/22 History (Tylenol Extra Strength) apixaban 5 mg tablet (Eliquis) 5 mg PO BID 11/12/22 11/12/22 History ascorbic acid (vitamin C) 500 mg 500 mg PO DAILY 11/12/22 11/12/22 History tablet (Vitamin C) biotin 10 mg tablet 10 mg PO DAILY 11/12/22 11/12/22 History dorzolamide 2 % eye drops 1 drp OPL BID 11/12/22 11/12/22 History gabapentin 400 mg capsule 400 mg PO BID 11/12/22 11/12/22 History guaifenesin 600 mg tablet, 600 mg PO Q12H PRN Congestion 11/12/22 11/12/22 History extended release 12 hr (Mucinex) lamotrigine 150 mg tablet 150 mg PO HS 11/12/22 11/12/22 History pantoprazole 40 mg tablet,delayed 40 mg PO QAM 11/12/22 11/12/22 History release vitamin E 268 mg (400 unit) capsule 536 mg PO DAILY 11/12/22 11/12/22 History Past Med/Surg History Medical History Achilles tendon contracture, left ADHD Stable Anemia Anxiety disorder Well controlled- follows with psych Arthroplasty of knee (02/25/13) Asthma Atrial fibrillation paroxysmal CAD (coronary artery disease) Mild- luminal irregularities only on 2003 cardiac cath Cancer skin cancer (forehead)- removed Chronic obstructive pulmonary disease stable CKD (chronic kidney disease) stage 3, GFR 30-59 ml/min Depression Esophageal stenosis Stable- usually drinks while eating to keep food moving - no recent choking Glaucoma left eye Hearing deficit b/l HERRERA History of transient cerebral ischemia Hyperlipidemia Incontinence of urine Lumbar stenosis with neurogenic claudication Nocturnal hypoxia On home oxygen therapy 3-4L N/C at hs Peptic ulcer disease Raynaud's disease Restless leg syndrome Rheumatoid arthritis (02/25/13) Pt unsure if arthritis is OA vs RA- has seen rheum in the past and told different diagnosis Surgical History Fusion of spine lumbar x2--last 12/2018 H/O elbow surgery bilateral H/O thumb surgery right H/O toe surgery left foot History of appendectomy History of colonoscopy History of discectomy lumbar History of esophagogastroduodenoscopy (EGD) History of open reduction and internal fixation (ORIF) procedure right ankle History of surgical removal of skin lesion History of tonsillectomy History of total hip arthroplasty right hip History of total knee replacement bilateral; right TKA: 05/22/17: SAB x1 at L3-L4 + PNB at [facility] S/P ankle arthrodesis right ankle S/P foot surgery, left removal of bone spur S/P hardware removal right ankle S/P laparotomy removed adhesions to relieve bowel strangulation S/P AMANDA (total abdominal hysterectomy) Family History Family/Other Cancer Coronary heart disease Heart disease Hypertension Brother Benign familial tremor Prostate cancer Father Benign familial tremor Mother Malignant melanoma Aunt Rheumatoid arthritis Denies family history of Ovarian cancer Myocardial infarction Breast cancer Colorectal cancer Social History Smoking Status: Current every day smoker Tobacco Type: Cigarettes Age Started Using Tobacco: 19; Cigarettes Per Day: 2; Second Hand Exposure: No; Do You Dip or Chew Tobacco: No; Hx Alcohol Use: Yes Alcohol type: beer Alcohol Intake Frequency Comment: rarely Hx Substance Use: No Preferred Language: Swiss Communication Ability: Effective Visual Impairment: No Limitations Hearing Ability: Hard of 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 Physical Exam . Alert and oriented. NAD Left hand/arm: +erythema and swelling on the dorsal hand, extending to the wrist. No streaking erythema at this time. No fluctuance or drainage. There appears to be a small wound in the 1st dorsal webspace with a scab over. She has limited motion of her fingers at this time. She is tender to palpation along the dorsal hand. Results & Data Results & Data Laboratory Results . Diagnostic Findings . mri reviewed and shows no evidence of abscess. PG Care Time/CCT Total # of Minutes Spent Total Time Spent with Patient: Total time spent is greater than 50% in coordination of care (as documented) at patient's floor/unit and/or counseling patient: Coding Level of Care Code 70378 IN/OBS CONSULT LVL 3,45M Diagnoses Cellulitis L03.114 Laterality: left Site of cellulitis: extremity Site of cellulitis of extremity: upper extremity (1) Cellulitis Laterality: left Site of cellulitis: extremity Site of cellulitis of extremity: upper extremity Qualified Code(s): L03.114 - Cellulitis of left upper limb
[2022-11-13] MEDS: ACETAMINOPHEN 500 MG TAB PO PRN (14:39)
--- NOTE | 2022-11-13 14:55 | Hospitalist Progress Note ---
Date of Service November 13, 2022 Assessment & Plan (1) Cat bite: Plan: Left hand cellulitis -Secondary to a bite by a vaccinated cat X-ray left hand showed Extensive osteoarthritis. Soft tissue swelling without bony abnormality MRI did not show any evidence of bone involvement -Ortho on consult, non surgical plans -Continue antibiotics, Ceftriaxone and Flagyl -Monitor blood cultures (2) Atrial fibrillation: Plan: Atrial fibrillation Paroxysmal A-fib. In sinus rhythm on admission No history of DVT Rate controlled with diltiazem/digoxin Resume apixaban (3) CKD (chronic kidney disease) stage 3, GFR 30-59 ml/min: Plan: stable renal functions avoid nephrotoxics (4) CAD (coronary artery disease): Plan continue hospitalization Admission and Anticipated Discharge Date Admission Date: November 12, 2022 Subjective patient seen and examined, said the swelling is about the same, not getting worse Review of Systems Review of Systems: All systems reviewed are negative, apart from the ones contained in the history. Physical Exam Physical Exam: The patient is awake, alert and oriented 3, well developed and well nourished, normocephalic and atraumatic, lying in bed and in no acute distress. HEENT--PERRL, EOMI, mucous membranes and oropharynx mildly dry Neck--supple. No JVD. No bruits. Thyroid normal, trachea midline, no adenopathy. Heart--normal S1 and S2. No murmurs, rubs or gallops. Lungs--clear bilaterally, no respiratory distress, no accessory muscle use. Abdomen--normal bowel sounds and soft. Mild epigastric and left sided abdominal pain Extremities--no cyanosis or clubbing. Left hand edema and redness Dermatologic--normal skin turgor, normal color, no abnormal lymph nodes, no rash. Neurologic--cranial nerves II through XII grossly intact. Rheumatologic--normal range of motion. Psychiatric--normal affect. Results & Data Results & Data Vital Signs (Past 12 Hours) Vital Signs Temp Pulse Resp BP Pulse Ox O2 Del Method 11/13/22 07:45 Room Air 11/13/22 07:31 97.9 F 62 16 118/72 98 Room Air PG Care Time/CCT Total # of Minutes Spent Total Time Spent with Patient: Total time spent is greater than 50% in coordination of care (as documented) at patient's floor/unit and/or counseling patient: Coding Level of Care Code 88679 SUB INP/OBS CARE 2/35MIN Diagnoses Cat bite W55.01XD Encounter type: subsequent encounter Atrial fibrillation I48.0 Atrial fibrillation type: paroxysmal CKD (chronic kidney disease) stage 3, GFR 30-59 ml/min N18.3 CAD (coronary artery disease) I25.10 Coronary Disease-Associated Artery/Lesion type: [place] artery [place] vs. transplanted heart: [place] heart Associated angina: without angina Time Spent (min) 35 (1) Cat bite Encounter type: subsequent encounter Qualified Code(s): W55.01XD - Bitten by cat, subsequent encounter (2) Atrial fibrillation Atrial fibrillation type: paroxysmal Qualified Code(s): I48.0 - Paroxysmal atrial fibrillation (4) CAD (coronary artery disease) Coronary Disease-Associated Artery/Lesion type: [place] artery [place] vs. transplanted heart: [place] heart Associated angina: without angina Qualified Code(s): I25.10 - Atherosclerotic heart disease of [place] coronary artery without angina pectoris
[2022-11-13] MEDS ORDERED: cefTRIAXone SODIUM 2,000 MG in DEXTROSE 5% 50 ML IV SCH (16:00)
[2022-11-13] MEDS: MONTELUKAST SODIUM 10 MG TABLET PO SCH (21:02)
[2022-11-13] MEDS: PRAMIPEXOLE DIHYDROCHLO 0.5 MG TAB PO SCH (21:02)
[2022-11-13] MEDS: ATORVASTATIN 40 MG TAB PO SCH (21:03)
[2022-11-13] MEDS: lamoTRIgine 100 MG TAB PO SCH (21:03)
[2022-11-13] MEDS: ASPIRIN 81 MG ECTAB PO SCH (21:03)
[2022-11-13] MEDS: traZODone HCL 50 MG TAB PO SCH (21:03)
[2022-11-13] MEDS: TRAVOPROST Z 0.004% OPH SOLN 2.5 ML BTL OP SCH (21:05)
[2022-11-14] MEDS: PLASMA-LYTE A 1,000 ML IV SCH (04:05)
[2022-11-14] MEDS ORDERED: Nursing to Pharmacy Communication SCH (04:15)
[2022-11-14] MEDS: traMADol HCL 50 MG TABLET PO PRN (06:25)
--- NOTE | 2022-11-14 07:19 | Orthopedic Progress Note ---
Date of Service November 14, 2022 Assessment & Plan (1) Cellulitis: Patient significantly improved from 24 hours ago. Would recommend 24 hours of IV antibiotics and conversion to p.o. She can follow-up as an outpatient in 1 week. Any orthopedic questions can recommend [phone]. As she could just follow-up with her primary care physician as well if desired Subjective . 82-year-old female admitted with a hand cellulitis from a cat bite. As she is doing quite a bit better this morning. Swelling and pain seems to be improved. Review of Systems All systems reviewed & are unremarkable except as noted in HPI & below. Physical Exam . Physical examination the hand reveals significant improvement in the swelling. She did still does have some dorsal swelling and cellulitis but clearly improved over yesterday. Her first webspace swelling is also decreased. No signs of pus or purulence. Results & Data Results & Data Laboratory Results . Diagnostic Findings . PG Care Time/CCT Total # of Minutes Spent Total Time Spent with Patient: Total time spent is greater than 50% in coordination of care (as documented) at patient's floor/unit and/or counseling patient: Coding Level of Care Code 77113 SUB INP/OBS CARE 2/35MIN Diagnoses Cellulitis L03.114 Laterality: left Site of cellulitis: extremity Site of cellulitis of extremity: upper extremity (1) Cellulitis Laterality: left Site of cellulitis: extremity Site of cellulitis of extremity: upper extremity Qualified Code(s): L03.114 - Cellulitis of left upper limb
[2022-11-14] MEDS: metroNIDAZOLE 500 MG/100 ML BAG IV SCH (07:58)
[2022-11-14] MEDS: AMPHETAMINE ASP/SULF/DEXTRAMPH 10 MG TAB PO SCH (07:59)
[2022-11-14 08:21] LABS: Basophils # (auto) 0.02 K/uL (0-0.2); Basophils % (auto) 0.3 %; Eosinophils # (auto) 0.15 K/uL (0-0.50); Hematocrit (blood only) 34.6 % (37.0-47.0); Immature Granulocytes # (auto) 0.04 K/uL (0.01-0.20); Immature Granulocytes % (auto) 0.5 %; Lymphocytes # (auto) 1.59 K/uL (1.2-3.4); Lymphocytes % (auto) 21.1 %; Mean Corpuscular Hemoglobin 29.5 pg (25.0-34.0); Mean Corpuscular Hgb Conc 31.8 g/dL (32.0-36.0); Mean Corpuscular Volume 92.8 fL (80.0-100.0); Mean Platelet Volume 9.8 fL (9.4-12.4); Monocytes % (auto) 9.3 %; Neutrophils # (auto) 5.05 K/uL (1.40-6.50); Neutrophils % (auto) 66.8 %; Platelet Count 161 K/uL (130-400); RDW Coefficient of Variation 13.9 % (11.5-14.5); RDW Standard Deviation 46.7 fL (36.4-46.3); Red Blood Count 3.73 M/uL (4.20-5.40); White Blood Count 7.55 K/ul (4.8-10.8)
[2022-11-14] MEDS: BRIMONIDINE TARTRATE 0.2% 5ML OP SCH (08:29)
[2022-11-14] MEDS: DORZOLAMIDE HCL 2% OPH SOLN 10 ML BTL OPL SCH (08:29)
[2022-11-14] MEDS: LORATADINE 10 MG TAB PO SCH (08:30)
[2022-11-14] MEDS: TIMOLOL MALEATE 0.5% OP SOLN 5 ML BTL OP SCH (08:30)
[2022-11-14] MEDS: GABAPENTIN 400 MG CAP PO SCH (08:31)
[2022-11-14] MEDS: DIGOXIN 0.125 MG TAB PO SCH (08:33)
[2022-11-14 08:34] LABS: BUN Creatinine Ratio 28.6 (10-20); Creatinine Clr Calc Pharmacy 75.2 ml/min; Est GFR (African American) 99.9 ml/min; Est GFR (Non-African American) 86.2 ml/min; Potassium 3.9 mmol/L (3.5-5.1)
[2022-11-14] MEDS: PANTOprazole 40 MG TAB PO SCH (08:34)
[2022-11-14] MEDS: dilTIAZem HCL 240 MG CAPCR PO SCH (08:34)
[2022-11-14] MEDS: OXYBUTYNIN CHLORIDE XL 5 MG TABCR PO SCH (08:34)
[2022-11-14] MEDS: ASCORBIC ACID 500 MG TAB PO SCH (08:34)
--- NOTE | 2022-11-14 11:59 | Discharge Summary ---
Date of Service November 14, 2022 Admission HPI Per Admitting Provider Jigna is an 82-year-old female who was seen in the ER 11/11/2022 after a cat bite injury to the hand. Was started on doxy/clindamycin as an outpatient, has had progressive worsening swelling and pain of the hand presents to the ER for reevaluation of worsened left hand cellulitis +left handed cat bite worsening over two days 9/10 pain. Minimal pain at rest. +swelling. +redness No fevers, chills, sweats but ER room is cold Has a history of afib. Denies recent RVR or need for interventions for her rate control. Thinks she is in sinus most of the time, does not know when she is in A-fib Denies chest pain, chest pressure, palpitations Nausea/vomiting/diarrhea Did take her medicines today. Has not eaten this afternoon Cat is vaccinated, is not concerned about rabies Has had cat bites to her hand before, this seems worse than the past. Her hand does hurt when she tries to flex her fingers, pain mostly goes into the hand but is not spreading into her forearm. Streaking has increased into the forearm however over the last day Medical History: Reviewed Medications: Reviewed. Reports she is allergic to azithromycin and penicillins. Has tolerated Rocephin in the Surgical History: Reviewed Family history: Reviewed Allergies: Reviewed Social History: Tobacco use about 1 pack/week. Denies alcohol use Code Status: Full code, confirmed with patient at bed Principal Diagnosis hand cellulitis, cat bite Discharge Exam The patient is awake, alert and oriented 3, well developed and well nourished, normocephalic and atraumatic, lying in bed and in no acute distress. HEENT--PERRL, EOMI, mucous membranes and oropharynx mildly dry Neck--supple. No JVD. No bruits. Thyroid normal, trachea midline, no adenopathy. Heart--normal S1 and S2. No murmurs, rubs or gallops. Lungs--clear bilaterally, no respiratory distress, no accessory muscle use. Abdomen--normal bowel sounds and soft. Mild epigastric and left sided abdominal pain Extremities--no cyanosis or clubbing. Left hand edema and redness Dermatologic--normal skin turgor, normal color, no abnormal lymph nodes, no rash. Neurologic--cranial nerves II through XII grossly intact. Rheumatologic--normal range of motion. Psychiatric--normal affect. Discharge Data Allergies Allergy/AdvReac Type Severity Reaction Status Date / Time procaine Allergy Severe novacaine Verified 11/12/22 16:50 - anaphylaxis, mouth swelling, dyspnea azithromycin Allergy Intermediate throat Verified 11/12/22 16:50 burned, lost weight fluticasone Allergy Intermediate chest pain Verified 11/12/22 16:50 (from Advair) salmeterol Allergy Intermediate chest pain Verified 11/12/22 16:50 (from Advair) chocolate flavor Allergy Mild rash Verified 10/11/22 11:18 Penicillins Allergy Unknown per Verified 11/12/22 16:50 allergy test (tolerated rocephin in the past) zolpidem AdvReac Intermediate sleep Verified 11/12/22 16:50 walking moxifloxacin AdvReac Mild N/V Verified 11/12/22 16:50 NSAIDS (Non-Steroidal AdvReac Mild advised to Verified 11/12/22 16:50 Anti-Inflamma avoid d/t ulcer hx Consultations 11/12/22 15:51 Consult Orthopedic Surgery Routine 11/12/22 16:47 ED Decision to Admit Stat Ordered Studies 11/12/22 17:42 MR hand LT wo/w con Routine Hospital Course (1) Cat bite: Left hand cellulitis -Secondary to a bite by a vaccinated cat X-ray left hand showed Extensive osteoarthritis. Soft tissue swelling without bony abnormality MRI did not show any evidence of bone involvement -Ortho on consult, non surgical plans -Continue antibiotics, Ceftriaxone and Flagyl while in hospital -Discharge on Clindamycin and Doxycycline( she still has 7 day worth at home) -Monitor blood cultures (2) Atrial fibrillation: Atrial fibrillation Paroxysmal A-fib. In sinus rhythm on admission No history of DVT Rate controlled with diltiazem/digoxin Resume apixaban (3) CKD (chronic kidney disease) stage 3, GFR 30-59 ml/min: stable renal functions avoid nephrotoxics (4) CAD (coronary artery disease): Plan d/c home Total Time Total Time Spent Total Time Spent (In Minutes): 35 Discharge Plan Discharge Items Patient Disposition: Home - Self-Care Reason For Visit: HAND CELLULITIS, CAT BITE Discharge Diagnosis: hand cellulitis, cat bite Activity: Resume your previous activity Non-emergency contact: Primary Care Provider Call non-emergency contact if: you have any medication questions and your symptoms worsen Follow-up/Referrals: Faiza Costa MD [Primary Care Provider] - 11/25/22 9:20 am Diet: Regular Addtl Attending Provider Instructions: please make appointment to follow up with orthopedics in 1 week. Please continue with the Doxycycline and Clindamycin you already have at home Pending Studies at Discharge: No Stand-Alone Forms: My [facility], Smoking Cessation Medications and DC Order Prescriptions: Continued (DME) nebulizer accessories Kit See Rx Instructions .ROUTE .MEDSUPPLY Qty: 2 0RF Rx Instructions: As directed. Dx Codes: J45.909, J44.9 (DME) nebulizers Misc See Rx Instructions .ROUTE .MEDSUPPLY Qty: 1 0RF Rx Instructions: As directed. Patient needs new nebulizer as hers is not working correctly. Dx Codes: J45.909, J44.9 escitalopram oxalate [Lexapro] 5 mg tablet 5 mg PO QAM Qty: 90 1RF Rx Instructions: TOTAL DOSE 25 MG--TAKES WITH 20 MG TAB. calcium carbonate-vitamin D3 [Calcium 600 + D(3)] 600 mg(1,500mg) -400 unit tablet 1 tab PO BID Qty: 60 5RF escitalopram oxalate [Lexapro] 20 mg tablet 20 mg PO DAILY Qty: 30 5RF Rx Instructions: TOTAL DOSE 25 MG--TAKES WITH 5 MG TAB. trazodone 150 mg tablet 225 mg PO HS Qty: 45 5RF Rx Instructions: TAKE 1.5 TABLETS loratadine 10 mg tablet 10 mg PO DAILY Qty: 30 5RF cyanocobalamin (vitamin B-12) 2,500 mcg tablet 2,500 mcg PO DAILY Qty: 30 5RF zinc gluconate 50 mg tablet 50 mg PO QAM Qty: 30 5RF aspirin 81 mg tablet,delayed release (DR/EC) 81 mg PO HS Qty: 30 5RF cholecalciferol (vitamin D3) 50 mcg (2,000 unit) tablet 2,000 unit PO QAM Qty: 30 5RF multivitamin Tablet 1 tab PO QAM Qty: 30 5RF (DME) Oxygen Home Liters Per Minute See Rx Instructions .Route Qty: 1 0RF Rx Instructions: 2L/min O2 for use when sleeping. Pt is mouth breather, needs appropriate mask (DME) Scooter Misc See Rx Instructions .Route Qty: 1 0RF Rx Instructions: As directed. pramipexole [Mirapex] 0.5 mg tablet 0.5 mg PO HS Qty: 90 3RF ipratropium-albuterol 0.5 mg-3 mg(2.5 mg base)/3 mL solution for nebulization 3 ml NEB Q6H PRN (Reason: shortness of breath or wheezing) Qty: 90 1RF Rx Instructions: Shortness of breath or wheezing J45.909 digoxin 125 mcg (0.125 mg) tablet 125 mcg PO QAM Qty: 30 5RF montelukast [Singulair] 10 mg tablet 10 mg PO HS Qty: 90 1RF diltiazem HCl [DILT-XR] 240 mg capsule,ext.rel 24h degradable 240 mg PO QAM Qty: 30 5RF atorvastatin 40 mg tablet 40 mg PO HS Qty: 90 1RF oxybutynin chloride 5 mg tablet extended release 24hr 5 mg PO DAILY Qty: 90 3RF travoprost 0.004 % drops 1 drp ophthalmic (eye) QPM brimonidine-timolol 0.2-0.5 % drops 1 drp ophthalmic (eye) BID dextroamphetamine-amphetamine [Adderall] 10 mg tablet 10 mg PO .COMPLEX Rx Instructions: 10 mg orally TAKE TWO TABLES IN AM AND ONE IN AFTERNOON; albuterol sulfate [Ventolin HFA] 90 mcg/actuation HFA aerosol inhaler 2 puff Inhalation Q4 PRN (Reason: Shortness Of Breath Or Wheezing) Qty: 3 5RF Metamucil (sugar) Powder 1 tbsp PO DAILY PRN (Reason: Constipation) biotin 10 mg Tablet 10 mg PO DAILY acetaminophen [Tylenol Extra Strength] 500 mg Tablet 1,000 mg PO DIRECTED PRN (Reason: Pain) ascorbic acid (vitamin C) [Vitamin C] 500 mg Tablet 500 mg PO DAILY vitamin E 268 mg (400 unit) Capsule 536 mg PO DAILY dorzolamide 2 % drops 1 drp OPL BID guaifenesin [Mucinex] 600 mg Tablet Extended Release 12hr 600 mg PO Q12H PRN (Reason: Congestion) lamotrigine 150 mg tablet 150 mg PO HS Rx Instructions: TAKE 1 TABLET BY MOUTH AT BEDTIME gabapentin 400 mg capsule 400 mg PO BID Rx Instructions: TAKE ONE CAPSULE BY MOUTH TWICE DAILY pantoprazole 40 mg tablet,delayed release (DR/EC) 40 mg PO QAM Rx Instructions: TAKE ONE TABLET BY MOUTH EVERY MORNING Eliquis 5 mg tablet 5 mg PO BID Rx Instructions: TAKE 1 TABLET BY MOUTH IN THE MORNING AND AT BEDTIME doxycycline hyclate 100 mg capsule 100 mg PO BID 10 Days Qty: 20 0RF Rx Instructions: ORDERED 11/11/22 clindamycin HCl 300 mg capsule 300 mg PO TID 10 Days Qty: 30 0RF Rx Instructions: ORDERED 11/11/22 Discharge Orders: Discharge Order (Routine); Ordered 11/14/22 Ordered By: Leila Baum Admission Data Admit Date/Time: 11/12/22 17:19 Attending Provider: Leila Baum Admit Provider: Yovani Sinha Primary Care Provider: Faiza Costa Other Providers: Yovani Sinha ; Barrera Dennis Coding Level of Care Code 59285 INP/OBS DISCH >30 MIN Diagnoses Cat bite W55.01XD Encounter type: subsequent encounter Atrial fibrillation I48.0 Atrial fibrillation type: paroxysmal CKD (chronic kidney disease) stage 3, GFR 30-59 ml/min N18.3 CAD (coronary artery disease) I25.10 Coronary Disease-Associated Artery/Lesion type: [place] artery [place] vs. transplanted heart: [place] heart Associated angina: without angina Time Spent (min) 35
== END 2022-11-14 13:47 | disposition home or self-care (01) ==
LOC: ED 14:25 → 3E 14:25 → SUATTDRO 17:19 → 3E 18:30 → UNDODISOB 11-14 12:14

== ENCOUNTER 2023-04-01 09:58 | Inpatient (IN) ==
[2023-04-01] MEDS ORDERED: cefTRIAXone SODIUM 2,000 MG/50 ML BAG IV STA (10:07)
--- NOTE | 2023-04-01 10:31 | Emergency Department Note ---
History of Present Illness General Chief complaint: Abnormal Labs/Diagnostic Testing Stated complaint: ABNORMAL LABS,DOC REF Time Seen by Provider: 04/01/23 10:05 History of Present Illness 82-year-old female who presents emergency department and was called as she had 2 positive blood cultures for strep. Patient was seen by me yesterday for a COPD exacerbation due to shortness of breath and a cough. Patient was found not to be in septic shock nor have a pneumonia. Patient was also COVID-negative. Patient was discharged home by me on doxycycline and prednisone. Patient had initially been notified that she had a positive blood culture last evening and she decided to wait and the second bottle was also positive today with strep. She was called back by our emergency department pharmacist and she presents with the complaint of positive blood cultures. Patient states that she felt improved when she actually was using oxygen at home yesterday. Patient has no other this time. Home Medications Medication Instructions Recorded Confirmed Type psyllium seed (sugar) oral powder 1 tbsp PO DAILY PRN Constipation 03/03/20 04/01/23 History (Metamucil (sugar) oral powder) escitalopram oxalate 5 mg tablet 5 mg PO QAM #90 tabs 03/15/20 04/01/23 Rx (Lexapro) calcium carbonate 600 mg-vitamin 1 tab PO BID #60 tabs 04/28/20 04/01/23 Rx D3 10 mcg (400 unit) tablet (Calcium 600 + D(3)) escitalopram oxalate 20 mg tablet 20 mg PO DAILY #30 tabs 04/28/20 04/01/23 Rx (Lexapro) trazodone 150 mg tablet 225 mg (1.5 x 150 mg) PO HS #45 04/28/20 04/01/23 Rx tabs loratadine 10 mg tablet 10 mg PO DAILY #30 tabs 05/29/20 04/01/23 Rx cyanocobalamin (vitamin B-12) 2,500 mcg PO DAILY #30 tabs 07/17/20 04/01/23 Rx 2,500 mcg tablet zinc gluconate 50 mg tablet 50 mg PO QAM #30 tabs 07/20/20 04/01/23 Rx aspirin 81 mg tablet,delayed 81 mg PO HS #30 tabs 08/18/20 04/01/23 Rx release cholecalciferol (vitamin D3) 50 2,000 unit PO QAM #30 tabs 09/13/20 04/01/23 Rx mcg (2,000 unit) tablet multivitamin 1 tab PO QAM #30 tabs 09/13/20 04/01/23 Rx Oxygen Home #1 ea 03/27/21 04/01/23 Rx Scooter #1 ea 04/03/21 04/01/23 Rx brimonidine 0.2 %-timolol 0.5 % 1 drp ophthalmic (eye) BID 05/03/21 04/01/23 History eye drops travoprost 0.004 % eye drops 1 drp ophthalmic (eye) QPM 05/03/21 04/01/23 History dextroamphetamine-amphetamine 10 10 mg PO .COMPLEX 03/07/22 04/01/23 History mg tablet (Adderall) oxybutynin chloride 5 mg 5 mg PO DAILY #90 tabs 09/10/22 04/01/23 Rx tablet,extended release 24 hr albuterol sulfate 90 mcg/actuation 2 puff inhalation Q4 PRN Shortness 10/11/22 04/01/23 Rx aerosol inhaler (Ventolin HFA) Of Breath Or Wheezing #3 Inhalers acetaminophen 500 mg tablet 1,000 mg PO DIRECTED PRN Pain 11/12/22 04/01/23 History (Tylenol Extra Strength) ascorbic acid (vitamin C) 500 mg 500 mg PO DAILY 11/12/22 04/01/23 History tablet (Vitamin C) biotin 10 mg tablet 10 mg PO DAILY 11/12/22 04/01/23 History dorzolamide 2 % eye drops 1 drp OPL BID 11/12/22 04/01/23 History guaifenesin 600 mg tablet, 600 mg PO Q12H PRN Congestion 11/12/22 04/01/23 History extended release 12 hr (Mucinex) vitamin E 268 mg (400 unit) capsule 536 mg PO DAILY 11/12/22 04/01/23 History atorvastatin 40 mg tablet 40 mg PO HS #90 tabs 01/02/23 04/01/23 Rx digoxin 125 mcg (0.125 mg) tablet 125 mcg PO QAM #30 tabs 01/02/23 04/01/23 Rx diltiazem HCl 240 mg 240 mg PO QAM #30 caps 01/02/23 04/01/23 Rx capsule,extended release 24 hr, controlled (DILT-XR) montelukast 10 mg tablet 10 mg PO HS #90 tabs 01/02/23 04/01/23 Rx (Singulair) pramipexole 0.5 mg tablet (Mirapex) 0.5 mg PO HS 01/14/23 04/01/23 History apixaban 5 mg tablet (Eliquis) 5 mg PO BID #60 tabs 02/27/23 04/01/23 Rx gabapentin 400 mg capsule 400 mg PO BID #60 caps 02/27/23 04/01/23 Rx ipratropium 0.5 mg-albuterol 3 mg 3 ml NEB Q6H PRN shortness of 03/27/23 04/01/23 Rx (2.5 mg base)/3 mL nebulization breath or wheezing #90 mL soln lamotrigine 150 mg tablet 150 mg PO HS #30 tabs 03/27/23 04/01/23 Rx pantoprazole 40 mg tablet,delayed 40 mg PO QAM #30 tabs 03/27/23 04/01/23 Rx release nebulizer accessories #2 ea 03/31/23 04/01/23 Rx nebulizers #1 ea 03/31/23 04/01/23 Rx prednisone 10 mg tablet 10 mg PO DIRECTED 04/01/23 04/01/23 History Allergies Allergy/AdvReac Type Severity Reaction Status Date / Time procaine Allergy Severe novacaine Verified 04/01/23 12:15 - anaphylaxis, mouth swelling, dyspnea azithromycin Allergy Intermediate throat Verified 04/01/23 12:15 burned, lost weight fluticasone Allergy Intermediate chest pain Verified 04/01/23 12:15 (from Advair) salmeterol Allergy Intermediate chest pain Verified 04/01/23 12:15 (from Advair) chocolate flavor Allergy Mild rash Verified 04/01/23 12:15 Penicillins Allergy Unknown per Verified 04/01/23 12:15 allergy test (tolerated rocephin in the past) zolpidem AdvReac Intermediate sleep Verified 04/01/23 12:15 walking moxifloxacin AdvReac Mild N/V Verified 04/01/23 12:15 NSAIDS (Non-Steroidal AdvReac Mild advised to Verified 04/01/23 12:15 Anti-Inflamma avoid d/t ulcer hx Past Med/Surg History Medical History Nocturnal hypoxia Achilles tendon contracture, left CAD (coronary artery disease) Mild- luminal irregularities only on 2003 cardiac cath Restless leg syndrome On home oxygen therapy 3-4L N/C at hs Esophageal stenosis Stable- usually drinks while eating to keep food moving - no recent choking Incontinence of urine Peptic ulcer disease Anemia Cancer skin cancer (forehead)- removed Hearing deficit b/l HERRERA Glaucoma left eye ADHD Stable Depression Hyperlipidemia Chronic obstructive pulmonary disease stable Anxiety disorder Well controlled- follows with psych History of transient cerebral ischemia Raynaud's disease Rheumatoid arthritis (02/25/13) Pt unsure if arthritis is OA vs RA- has seen rheum in the past and told different diagnosis CKD (chronic kidney disease) stage 3, GFR 30-59 ml/min Atrial fibrillation paroxysmal Asthma Lumbar stenosis with neurogenic claudication Arthroplasty of knee (02/25/13) Surgical History History of total hip arthroplasty right hip H/O toe surgery left foot S/P foot surgery, left removal of bone spur History of total knee replacement bilateral; right TKA: 05/22/17: SAB x1 at L3-L4 + PNB at [facility] S/P hardware removal right ankle S/P laparotomy removed adhesions to relieve bowel strangulation S/P ankle arthrodesis right ankle History of open reduction and internal fixation (ORIF) procedure right ankle H/O elbow surgery bilateral S/P AMANDA (total abdominal hysterectomy) H/O thumb surgery right Fusion of spine lumbar x2--last 12/2018 History of discectomy lumbar History of appendectomy History of colonoscopy History of esophagogastroduodenoscopy (EGD) History of surgical removal of skin lesion History of tonsillectomy Family History Family/Other Cancer Coronary heart disease Heart disease Hypertension Brother Benign familial tremor Prostate cancer Father Benign familial tremor Mother Malignant melanoma Aunt Rheumatoid arthritis Denies family history of Ovarian cancer Myocardial infarction Breast cancer Colorectal cancer Social History Smoking Status: Current every day smoker Tobacco Type: Cigarettes Age Started Using Tobacco: 19; Cigarettes Per Day: 2; Second Hand Exposure: No; Do You Dip or Chew Tobacco: No; Hx Alcohol Use: Yes Alcohol type: beer Alcohol Intake Frequency Comment: rarely Hx Substance Use: No Preferred Language: Dominican Communication Ability: Effective Visual Impairment: No Limitations Hearing Ability: Hard of Hearing [employer] T[employer] Required: No Beliefs That Will Affect Care: None marital status: Current Living Situation: Alone Current Living Situation Comment: lives in detention apartment 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al status: retired How many Children do You have: 2 Feels Safe at Home: Yes Childhood Exposure to Second-Hand Smoke: No Diet: regular caffeine: Yes during the past year weight has: remained stable Dental Care, Regularly: No Physical Activity Frequency: Daily Seatbelt Use: always Sunscreen Use: Yes (sometimes ) Assistive Devices: Cane and Walker Review of Systems A total of 10 systems reviewed and were otherwise negative Constitutional: no fever and no body aches Respiratory: + cough Physical Exam Vital Signs Vital Signs - 24 hr 04/01/23 09:58 04/01/23 11:00 04/01/23 12:21 Temperature 36.6 C Temperature Source Temporal Artery Scan Pulse Rate 82 81 75 Pulse Rate from SpO2 Sensor 82 Respiratory Rate 18 20 Blood Pressure 150/91 H 168/85 H Blood Pressure Mean 110 112 Pulse Oximetry 94 91 Sepsis Recent Fever Within 48 Hours No Sepsis New/Unexplained Change in Mental Status N/A Sepsis Action Taken by Nursing No Action Required GENERAL: Patient is awake alert in no acute distress patient is resting comfortably and showing no signs of anxiety EYES: The conjunctivae are clear. The pupils are round and reactive. EARS, NOSE, MOUTH AND THROAT: The nose is without any evidence of any deformity. Mucous membranes are moist. Tongue is midline. NECK: The neck is nontender and supple. RESPIRATORY: Normal respiratory effort is noted there is rhonchi bilaterally CARDIOVASCULAR: Regular rate and rhythm noted there no murmurs rubs or gallops normal S1 normal S2. GASTROINTESTINAL: The abdomen is soft. Abdomen is nontender. BACK: No midline tenderness or or step-off noted range of motion in flexion extension as well as rotation no signs of muscle spasm noted MUSCULOSKELETAL/EXTREMITIES: There is no evidence of gross deformity full range of motion is noted in the hips and shoulders. SKIN: There is no obvious evidence of any rash. There are no petechiae, pallor or cyanosis noted. NEUROLOGIC: Patient is awake alert and oriented x3 strength is symmetric Course Reevaluation(s) Reevaluation #1: This patient was started on IV fluids and the patient was also started on 2 g of IV Rocephin and given a DuoNeb treatment. Time: 11:38 Consultations Consultation #1: Case was discussed with the [facility] hospitalist, Dr Vitale for admission Time: 11:38 Administered Medications Discontinued Medications Albuterol (Albut/Ipratrop 3mg/0.5mg Neb 3 Ml Vial) 3 ml NEB NOW STA; Protocol Stop: 04/01/23 11:09 Last Admin: 04/01/23 11:12 Dose: 3 ml Documented By: MT Ceftriaxone Sodium (Rocephin) 2,000 mg in 50 mls @ 100 mls/hr IV NOW STA Stop: 04/01/23 10:36 Last Admin: 04/01/23 10:59 Dose: 100 mls/hr Documented By: MT Sodium Chloride (Nss) 1,000 mls @ 999 mls/hr IV .Q1H1M ONE Stop: 04/01/23 11:55 Last Admin: 04/01/23 11:12 Dose: 999 mls/hr Documented By: JAYCOB Medical Decision Making Medical Records Attestation: I reviewed the patient's medical records. Home Medications Current Medication List: was personally reviewed by me Laboratory Data Attestation: I reviewed the patient's lab results. Labs interpreted by me patient has an elevated white blood cell count, mildly elevated lactate level I have also reviewed the patient's blood cultures which are positive for strep 04/01/23 10:23 04/01/23 10:23 Lab Results 04/01/23 04/01/23 04/01/23 Range/Units 10:23 10:48 12:20 WBC 16.21 H (4.8-10.8) K/ul RBC 4.47 (4.20-5.40) M/uL Hgb 12.8 (12.0-16.0) g/dl Hct 40.0 (37.0-47.0) % MCV 89.5 (80.0-100.0) fL MCH 28.6 (25.0-34.0) pg MCHC 32.0 (32.0-36.0) g/dL RDW Std Deviation 49.0 H (36.4-46.3) fL RDW Coeff of [place] 14.9 H (11.5-14.5) % Plt Count 238 (130-400) K/uL MPV 10.4 (9.4-12.4) fL Immature Gran % (Auto) 1.0 % Neut % (Auto) 86.8 % Lymph % (Auto) 7.3 % [place] % (Auto) 4.8 % Eos % (Auto) 0.0 % Baso % (Auto) 0.1 % Neut # (Auto) 14.07 H (1.40-6.50) K/uL Lymph # (Auto) 1.18 L (1.20-3.40) K/uL [place] # (Auto) 0.78 H (0.11-0.59) K/uL Eos # (Auto) 0.00 (0.00-0.50) K/uL Baso # (Auto) 0.02 (0.00-0.20) K/uL Immature Gran # (Auto) 0.16 (0.01-0.20) K/uL PT 11.1 (9.0-12.0) Seconds INR 1.0 (0.9-1.1) APTT 28.3 (21.0-31.0) Seconds PTT Ratio 1.0 Sodium 143 (136-145) mmol/L Potassium 3.8 (3.5-5.1) mmol/L Chloride 107 (98-107) mmol/L Carbon Dioxide 29 (21-32) mmol/L Anion Gap 7 (3-11) BUN 27 H (6-23) mg/dl Creatinine 0.62 (0.6-1.2) mg/dl Est Cr Clr Drug Dosing 67.5 ml/min Est GFR ( Amer) 96.6 ml/min Est GFR (Non-Af Amer) 83.4 ml/min BUN/Creatinine Ratio 43.5 H (10-20) Glucose 114 H (70-99(Fasting)) mg/dl Lactate 2.1 H* 2.5 H* (0.4-2.0) mmol/L Calcium 11.0 H (8.6-10.3) mg/dl Magnesium 1.5 L (1.7-2.4) mg/dl Total Bilirubin 0.3 (0.2-1.0) mg/dl Direct Bilirubin 0.1 (0-0.2) mg/dl AST 21 (13-39) U/L ALT 20 (7-52) U/L Alkaline Phosphatase 95 (34-104) U/L Total Protein 6.9 (6.0-8.3) gm/dl Albumin 4.3 (3.4-5.0) gm/dl Procalcitonin < 0.05 (0-0.5) ng/ml SARS-CoV-2, RNA, NAAT NEGATIVE (NEGATIVE) Imaging Data Attestation: I personally reviewed and interpreted this imaging study as follows: Radiologist's Impression: Chest X-Ray 04/01/23 10:07 XR chest 1V portable CLINICAL HISTORY: Sepsis. COMPARISON STUDY: Chest radiograph March 31, 2023. FINDINGS: Lung volumes are normal. There is no consolidation to suggest pneumonia. Linear left midlung density represents atelectasis or scarring. There is no pneumothorax or pleural effusion. Moderate cardiomegaly is unchanged. Mediastinal contours are normal. There is no evidence for pulmonary edema. IMPRESSION: No acute cardiopulmonary findings. No change in appearance of the chest. ACT 112: Negative or not required by law. Electronically signed by: Bull Kim M.D. 04/01/2023 10:45 AM ECG Data Attestation: I personally reviewed and interpreted this ECG as follows: Additional Comments: EKG interpreted by me normal sinus rhythm rate of [address]-T change no obvious ST segment elevation or depression normal axis normal intervals Telemetry was ordered by me, interpreted as normal sinus rhythm rate of 77 MDM Narrative Medical decision making differential diagnosis includes pneumonia, sepsis, bacteremia, metabolic derangement, dehydration, COPD Plan is to check sepsis labs, started on IV Rocephin per the ED pharmacist recommendations, admit I have reviewed the patient's records from yesterday as well as the blood culture results with the patient being strep positive This case was discussed with the [facility] hospitalist for admission, the patient will be admitted for anemia, I do not suspect the patient to have severe sepsis or septic shock at this time. Patient was given IV fluids and antibiotics as well as a DuoNeb. Impression & Plan Bacteremia, COPD exacerbation Discharge Plan Visit Data Chief Complaint: Abnormal Labs/Diagnostic Testing Stated Complaint: ABNORMAL LABS,DOC REF ED Provider: Solomon Jin Discharge Problem: Bacteremia, COPD exacerbation Patient Disposition: Admitted As Inpatient Forms Stand Alone Forms: [facility] Prescriptions Prescriptions: No Action escitalopram oxalate [Lexapro] 5 mg tablet 5 mg PO QAM Qty: 90 1RF Rx Instructions: TOTAL DOSE 25 MG--TAKES WITH 20 MG TAB. calcium carbonate-vitamin D3 [Calcium 600 + D(3)] 600 mg(1,500mg) -400 unit tablet 1 tab PO BID Qty: 60 5RF escitalopram oxalate [Lexapro] 20 mg tablet 20 mg PO DAILY Qty: 30 5RF Rx Instructions: TOTAL DOSE 25 MG--TAKES WITH 5 MG TAB. trazodone 150 mg tablet 225 mg PO HS Qty: 45 5RF Rx Instructions: TAKE 1.5 TABLETS loratadine 10 mg tablet 10 mg PO DAILY Qty: 30 5RF cyanocobalamin (vitamin B-12) 2,500 mcg tablet 2,500 mcg PO DAILY Qty: 30 5RF zinc gluconate 50 mg tablet 50 mg PO QAM Qty: 30 5RF aspirin 81 mg tablet,delayed release (DR/EC) 81 mg PO HS Qty: 30 5RF cholecalciferol (vitamin D3) 50 mcg (2,000 unit) tablet 2,000 unit PO QAM Qty: 30 5RF multivitamin Tablet 1 tab PO QAM Qty: 30 5RF (DME) Oxygen Home Liters Per Minute See Rx Instructions .Route Qty: 1 0RF Rx Instructions: 2L/min O2 for use when sleeping. Pt is mouth breather, needs appropriate mask (DME) Scooter Misc See Rx Instructions .Route Qty: 1 0RF Rx Instructions: As directed. oxybutynin chloride 5 mg tablet extended release 24hr 5 mg PO DAILY Qty: 90 3RF digoxin 125 mcg (0.125 mg) tablet 125 mcg PO QAM Qty: 30 5RF montelukast [Singulair] 10 mg tablet 10 mg PO HS Qty: 90 1RF atorvastatin 40 mg tablet 40 mg PO HS Qty: 90 1RF diltiazem HCl [DILT-XR] 240 mg capsule,ext.rel 24h degradable 240 mg PO QAM Qty: 30 5RF gabapentin 400 mg capsule 400 mg PO BID Qty: 60 5RF Rx Instructions: TAKE ONE CAPSULE BY MOUTH TWICE DAILY Eliquis 5 mg tablet 5 mg PO BID Qty: 60 5RF Rx Instructions: TAKE 1 TABLET BY MOUTH IN THE MORNING AND AT BEDTIME ipratropium-albuterol 0.5 mg-3 mg(2.5 mg base)/3 mL solution for nebulization 3 ml NEB Q6H PRN (Reason: shortness of breath or wheezing) Qty: 90 1RF Rx Instructions: Shortness of breath or wheezing J45.909 pantoprazole 40 mg tablet,delayed release (DR/EC) 40 mg PO QAM Qty: 30 5RF Rx Instructions: TAKE ONE TABLET BY MOUTH EVERY MORNING lamotrigine 150 mg tablet 150 mg PO HS Qty: 30 5RF Rx Instructions: TAKE 1 TABLET BY MOUTH AT BEDTIME (DME) nebulizers [place] See Rx Instructions .ROUTE .MEDSUPPLY Qty: 1 0RF Rx Instructions: New nebulizer (DME) nebulizer accessories Kit See Rx Instructions .ROUTE .MEDSUPPLY Qty: 2 0RF Rx Instructions: All tubing, connectors, and accessory pieces pramipexole [Mirapex] 0.5 mg tablet 0.5 mg PO HS travoprost 0.004 % drops 1 drp ophthalmic (eye) QPM brimonidine-timolol 0.2-0.5 % drops 1 drp ophthalmic (eye) BID dextroamphetamine-amphetamine [Adderall] 10 mg tablet 10 mg PO .COMPLEX Rx Instructions: 10 mg orally TAKE TWO TABLES IN AM AND ONE IN AFTERNOON; albuterol sulfate [Ventolin HFA] 90 mcg/actuation HFA aerosol inhaler 2 puff Inhalation Q4 PRN (Reason: Shortness Of Breath Or Wheezing) Qty: 3 5RF Metamucil (sugar) Powder 1 tbsp PO DAILY PRN (Reason: Constipation) biotin 10 mg Tablet 10 mg PO DAILY acetaminophen [Tylenol Extra Strength] 500 mg Tablet 1,000 mg PO DIRECTED PRN (Reason: Pain) ascorbic acid (vitamin C) [Vitamin C] 500 mg Tablet 500 mg PO DAILY vitamin E 268 mg (400 unit) Capsule 536 mg PO DAILY dorzolamide 2 % drops 1 drp OPL BID guaifenesin [Mucinex] 600 mg Tablet Extended Release 12hr 600 mg PO Q12H PRN (Reason: Congestion) prednisone 10 mg Tablet 10 mg PO DIRECTED Rx Instructions: prn for 12 day coarse Referrals Referrals: Faiza Costa MD [Primary Care Provider] -
--- NOTE | 2023-04-01 10:46 | XRay Report ---
XR chest 1V portable CLINICAL HISTORY: Sepsis. COMPARISON STUDY: Chest radiograph March 31, 2023. FINDINGS: Lung volumes are normal. There is no consolidation to suggest pneumonia. Linear left midlun g density represents atelectasis or scarring. There is no pneumothorax or pleural effusion. Moderate cardiomegaly is unchanged. Mediastinal contours are normal. There is no evidence for pulmonary edema. IMPRESSION: No acute cardiopulmonary findings. No change in appearance of the chest. ACT 112: Negative or not required by law. Electronically signed by: Bull Kim M.D. 04/01/2023 10:45 AM
[2023-04-01] MEDS ORDERED: SODIUM CHLORIDE 0.9% 1,000 ML IV ONE (10:55)
[2023-04-01] MEDS ORDERED: ALBUT/IPRATROP 3MG/0.5MG NEB 3 ML VIAL NEB STA (11:08)
[2023-04-01 11:10] LABS: Albumin Level 4.3 gm/dl (3.4-5.0); BUN Creatinine Ratio 43.5 (10-20); Bilirubin Direct 0.1 mg/dl (0-0.2); Bilirubin,Total 0.3 mg/dl (0.2-1.0); Creatinine Clr Calc Pharmacy 67.5 ml/min; Est GFR (African American) 96.6 ml/min; Est GFR (Non-African American) 83.4 ml/min; Magnesium 1.5 mg/dl (1.7-2.4); Potassium 3.8 mmol/L (3.5-5.1); Total Protein 6.9 gm/dl (6.0-8.3)
[2023-04-01 11:13] LABS: Basophils # (auto) 0.02 K/uL (0.00-0.20); Basophils % (auto) 0.1 %; Hemoglobin 12.8 g/dl (12.0-16.0); Immature Granulocytes # (auto) 0.16 K/uL (0.01-0.20); Lymphocytes # (auto) 1.18 K/uL (1.20-3.40); Lymphocytes % (auto) 7.3 %; Mean Corpuscular Hemoglobin 28.6 pg (25.0-34.0); Mean Corpuscular Volume 89.5 fL (80.0-100.0); Mean Platelet Volume 10.4 fL (9.4-12.4); Monocytes # (auto) 0.78 K/uL (0.11-0.59); Monocytes % (auto) 4.8 %; Neutrophils # (auto) 14.07 K/uL (1.40-6.50); Neutrophils % (auto) 86.8 %; Platelet Count 238 K/uL (130-400); RDW Coefficient of Variation 14.9 % (11.5-14.5); Red Blood Count 4.47 M/uL (4.20-5.40); White Blood Count 16.21 K/ul (4.8-10.8)
[2023-04-01 11:24] LABS: Partial Thromboplastin Time 28.3 Seconds (21.0-31.0); Prothrombin Time 11.1 Seconds (9.0-12.0)
--- NOTE | 2023-04-01 11:37 | History & Physical Report ---
Date of Service April 01, 2023 Assessment & Plan (1) Bacteremia: Plan: Strep bacteremia - 03/31 BC 2/ bottles GPC in chains, strep positive piece Suspect pulmonary source. No infected appearing skin wounds/cellulitis. Patient has a history of a recent cat bite to her left hand which was treated cellulitis, on evaluation this is not warm, tender and is without purulence or erythema. Appears well-healed and well treated since her course of antibiotics in January Surveillance cultures ordered, continue Rocephin. Follow speciation. (2) Acute exacerbation of chronic obstructive airways disease: Plan: Acute on chronic COPD, chronic respiratory failure with home oxygen requirement of 3 to 4 L HS With new hypoxia, and diffuse severe wheezing on exam Patients with leukocytosis, increased oxygen requirement, borderline elevated lactate, 5 days of respiratory symptoms and sputum change. No lobar pneumonia seen, procalcitonin is negative -Low suspicion for VTE/PE, no leg swelling and patient has been compliant with her aloe Continue Rocephin Meets SIRS/sepsis criteria with mildly elevated lactate, mucous membranes tacky and without edema on exam. Has received 1 L of crystalloid, additional 704 cc ordered bolus to complete IBW 30 cc/kg recommended fluid resuscitation. No evidence or history of CHF Patient's not tolerated Advair in the past, Incruse added Continue methylprednisolone 40 mg IV twice daily, wean based on clinical progression (3) Atrial fibrillation: Plan: Paroxysmal atrial fibrillation EKG on admission normal sinus rhythm nonspecific ST change without territorial ischemia, chest pain or A-fib on admit Continue Eliquis Continue diltiazem Continue digoxin, level pending (4) CKD (chronic kidney disease) stage 3, GFR 30-59 ml/min: Plan: Creatinine 0.62 on admission, GFR improved approximately 80 Trend daily (5) Anxiety disorder: Plan: Continue lamotrigine, escitalopram (6) Hypomagnesemia: Plan: Repleted, trended (7) Nonobstructive atherosclerosis of coronary artery: Plan: Patient denies history of RI, obstructive CAD, and denies history of heart failure. She has no orthopnea. No chest pain on admission or preceding admission. Plan DVT prophylaxis: DOAC Disposition: PCU due to history of A-fib RVR exacerbations while on steroids and concurrent hypomagnesemia CODE STATUS: DNR/DNI Diet: Heart healthy, soft bite sized History of Present Illness Primary Care Provider: Faiza Costa MD Jigna Alves is a 82-year-old female with a past medical history of tobacco abuse, COPD, hearing loss, pulmonary nodules, CAD, who presented to the ER 03/31 for COPD exacerbation and was not found to have sepsis, pneumonia, or hypoxia and as such was discharged home on doxycycline/prednisone. After returning home she had a positive blood culture which has returned positive for strep and was recalled to the ER for further care. Per ER: Cough, cold, congestion sx for several days. SEpsis workup at the time wnl, d/campos home and subsequently 06/22+ for GPC chains PCR positive for strep. Jigna is seen at the bedside. She reports that she had COVID in February and gradually recovered from this but was otherwise feeling well until 5 days ago. 5 days ago she developed an increased cough, scattered wheezing, and a change in her sputum production from normally light and clear to yellow. She does not normally need oxygen during the day and uses between 2 to 4 L at night, she has needed daytime oxygen while at home. She was seen in the ER yesterday and discharged home for an acute COPD exacerbation treated with doxycycline due to azithromycin allergy; she feels she was feeling a little bit better at home but still tired when she was recalled for positive blood cultures. She Dors that she has chronically had intermittent night sweats with no recent change. She did have a cat bite to her left hand in January which had extensive imaging and antibiotic treatment, she reports this has improved and she has no warmth/erythema/tenderness at the site. She denies other skin wounds or infection. She denies abdominal tenderness. No nausea/vomiting/diarrhea. She does not have a headache or photo/phono sensitivity. She has not noticed any weakness or sensory change. Her cough has been increased and with yellow sputum as noted. She has been taking all of her medications, and in particular has missed no doses of her blood thinner. She was prescribed prednisone 50 mg which she feels is high for her, and notes that she has been prescribed 20 mg in the past. She does not follow with a supervising chef, she reports that she uses an albuterol inhaler as needed and then her nebulizer at home as a last effort prior to coming into the hospital but these do not seem to be working well for her in the last 5 days. She does not use a daily inhaler, notes that she had chest pain and worsening of her A-fib with Advair in the past. Endorses ongoing tobacco use about 4 cigarettes/day. At most was 1/2 to 1 pack a day smoker for most of her life. Denies alcohol use. Denies recreational substance and vape use. DNR/DNI, reviewed about Allergies Allergy/AdvReac Type Severity Reaction Status Date / Time procaine Allergy Severe novacaine Verified 04/01/23 12:15 - anaphylaxis, mouth swelling, dyspnea azithromycin Allergy Intermediate throat Verified 04/01/23 12:15 burned, lost weight fluticasone Allergy Intermediate chest pain Verified 04/01/23 12:15 (from Advair) salmeterol Allergy Intermediate chest pain Verified 04/01/23 12:15 (from Advair) chocolate flavor Allergy Mild rash Verified 04/01/23 12:15 Penicillins Allergy Unknown per Verified 04/01/23 12:15 allergy test (tolerated rocephin in the past) zolpidem AdvReac Intermediate sleep Verified 04/01/23 12:15 walking moxifloxacin AdvReac Mild N/V Verified 04/01/23 12:15 NSAIDS (Non-Steroidal AdvReac Mild advised to Verified 04/01/23 12:15 Anti-Inflamma avoid d/t ulcer hx Home Medications Medication Instructions Recorded Confirmed Type psyllium seed (sugar) oral powder 1 tbsp PO DAILY PRN Constipation 03/03/20 04/01/23 History (Metamucil (sugar) oral powder) escitalopram oxalate 5 mg tablet 5 mg PO QAM #90 tabs 03/15/20 04/01/23 Rx (Lexapro) calcium carbonate 600 mg-vitamin 1 tab PO BID #60 tabs 04/28/20 04/01/23 Rx D3 10 mcg (400 unit) tablet (Calcium 600 + D(3)) escitalopram oxalate 20 mg tablet 20 mg PO DAILY #30 tabs 04/28/20 04/01/23 Rx (Lexapro) trazodone 150 mg tablet 225 mg (1.5 x 150 mg) PO HS #45 04/28/20 04/01/23 Rx tabs loratadine 10 mg tablet 10 mg PO DAILY #30 tabs 05/29/20 04/01/23 Rx cyanocobalamin (vitamin B-12) 2,500 mcg PO DAILY #30 tabs 07/17/20 04/01/23 Rx 2,500 mcg tablet zinc gluconate 50 mg tablet 50 mg PO QAM #30 tabs 07/20/20 04/01/23 Rx aspirin 81 mg tablet,delayed 81 mg PO HS #30 tabs 08/18/20 04/01/23 Rx release cholecalciferol (vitamin D3) 50 2,000 unit PO QAM #30 tabs 09/13/20 04/01/23 Rx mcg (2,000 unit) tablet multivitamin 1 tab PO QAM #30 tabs 09/13/20 04/01/23 Rx Oxygen Home #1 ea 03/27/21 04/01/23 Rx Scooter #1 ea 04/03/21 04/01/23 Rx brimonidine 0.2 %-timolol 0.5 % 1 drp ophthalmic (eye) BID 05/03/21 04/01/23 History eye drops travoprost 0.004 % eye drops 1 drp ophthalmic (eye) QPM 05/03/21 04/01/23 History dextroamphetamine-amphetamine 10 10 mg PO .COMPLEX 03/07/22 04/01/23 History mg tablet (Adderall) oxybutynin chloride 5 mg 5 mg PO DAILY #90 tabs 09/10/22 04/01/23 Rx tablet,extended release 24 hr albuterol sulfate 90 mcg/actuation 2 puff inhalation Q4 PRN Shortness 10/11/22 04/01/23 Rx aerosol inhaler (Ventolin HFA) Of Breath Or Wheezing #3 Inhalers acetaminophen 500 mg tablet 1,000 mg PO DIRECTED PRN Pain 11/12/22 04/01/23 History (Tylenol Extra Strength) ascorbic acid (vitamin C) 500 mg 500 mg PO DAILY 11/12/22 04/01/23 History tablet (Vitamin C) biotin 10 mg tablet 10 mg PO DAILY 11/12/22 04/01/23 History dorzolamide 2 % eye drops 1 drp OPL BID 11/12/22 04/01/23 History guaifenesin 600 mg tablet, 600 mg PO Q12H PRN Congestion 11/12/22 04/01/23 History extended release 12 hr (Mucinex) vitamin E 268 mg (400 unit) capsule 536 mg PO DAILY 11/12/22 04/01/23 History atorvastatin 40 mg tablet 40 mg PO HS #90 tabs 01/02/23 04/01/23 Rx digoxin 125 mcg (0.125 mg) tablet 125 mcg PO QAM #30 tabs 01/02/23 04/01/23 Rx diltiazem HCl 240 mg 240 mg PO QAM #30 caps 01/02/23 04/01/23 Rx capsule,extended release 24 hr, controlled (DILT-XR) montelukast 10 mg tablet 10 mg PO HS #90 tabs 01/02/23 04/01/23 Rx (Singulair) pramipexole 0.5 mg tablet (Mirapex) 0.5 mg PO HS 01/14/23 04/01/23 History apixaban 5 mg tablet (Eliquis) 5 mg PO BID #60 tabs 02/27/23 04/01/23 Rx gabapentin 400 mg capsule 400 mg PO BID #60 caps 02/27/23 04/01/23 Rx ipratropium 0.5 mg-albuterol 3 mg 3 ml NEB Q6H PRN shortness of 03/27/23 04/01/23 Rx (2.5 mg base)/3 mL nebulization breath or wheezing #90 mL soln lamotrigine 150 mg tablet 150 mg PO HS #30 tabs 03/27/23 04/01/23 Rx pantoprazole 40 mg tablet,delayed 40 mg PO QAM #30 tabs 03/27/23 04/01/23 Rx release nebulizer accessories #2 ea 03/31/23 04/01/23 Rx nebulizers #1 ea 03/31/23 04/01/23 Rx prednisone 10 mg tablet 10 mg PO DIRECTED 04/01/23 04/01/23 History Past Med/Surg History Medical History Nocturnal hypoxia Achilles tendon contracture, left CAD (coronary artery disease) Mild- luminal irregularities only on 2003 cardiac cath Restless leg syndrome On home oxygen therapy 3-4L N/C at hs Esophageal stenosis Stable- usually drinks while eating to keep food moving - no recent choking Incontinence of urine Peptic ulcer disease Anemia Cancer skin cancer (forehead)- removed Hearing deficit b/l HERRERA Glaucoma left eye ADHD Stable Depression Hyperlipidemia Chronic obstructive pulmonary disease stable Anxiety disorder Well controlled- follows with psych History of transient cerebral ischemia Raynaud's disease Rheumatoid arthritis (02/25/13) Pt unsure if arthritis is OA vs RA- has seen rheum in the past and told different diagnosis CKD (chronic kidney disease) stage 3, GFR 30-59 ml/min Atrial fibrillation paroxysmal Asthma Lumbar stenosis with neurogenic claudication Arthroplasty of knee (02/25/13) Surgical History History of total hip arthroplasty right hip H/O toe surgery left foot S/P foot surgery, left removal of bone spur History of total knee replacement bilateral; right TKA: 05/22/17: SAB x1 at L3-L4 + PNB at [facility] S/P hardware removal right ankle S/P laparotomy removed adhesions to relieve bowel strangulation S/P ankle arthrodesis right ankle History of open reduction and internal fixation (ORIF) procedure right ankle H/O elbow surgery bilateral S/P AMANDA (total abdominal hysterectomy) H/O thumb surgery right Fusion of spine lumbar x2--last 12/2018 History of discectomy lumbar History of appendectomy History of colonoscopy History of esophagogastroduodenoscopy (EGD) History of surgical removal of skin lesion History of tonsillectomy Family History Family/Other Cancer Coronary heart disease Heart disease Hypertension Brother Benign familial tremor Prostate cancer Father Benign familial tremor Mother Malignant melanoma Aunt Rheumatoid arthritis Denies family history of Ovarian cancer Myocardial infarction Breast cancer Colorectal cancer Social History Smoking Status: Current every day smoker Tobacco Type: Cigarettes Age Started Using Tobacco: 19; Cigarettes Per Day: 2; Second Hand Exposure: No; Do You Dip or Chew Tobacco: No; Hx Alcohol Use: Yes Alcohol type: beer Alcohol Intake Frequency Comment: rarely Hx Substance Use: No Preferred Language: Estonian Communication Ability: Effective Visual Impairment: No Limitations Hearing Ability: Hard of Hearing Varnish Filterer Required: No Beliefs That Will Affect Care: None marital status: Current Living Situation: Alone Current Living Situation Comment: lives in detention apartment 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al status: retired How many Children do You have: 2 Feels Safe at Home: Yes Childhood Exposure to Second-Hand Smoke: No Diet: regular caffeine: Yes during the past year weight has: remained stable Dental Care, Regularly: No Physical Activity Frequency: Daily Seatbelt Use: always Sunscreen Use: Yes (sometimes ) Assistive Devices: Cane and Walker Physical Exam Physical Exam: General: A&Ox3. NAD. Cooperative. HEENT: Atraumatic, normocephalic. Vision/hearing intact. Mucous membranes tacky Pulm: Lungs are diffusely coarse with inspiratory and expiratory wheezes. On nebulizer treatment at time of visit Cardiac: RRR, -mrg. Radial pulses intact and symmetrical. No JVD Abdominal: Nontender, nondistended, soft. BS present. Extremities: Warm, dry. No pitting edema. Left dorsal hand between first and second digit with small scab where patient reports she had a prior cat bite. There is no warmth, tenderness, swelling, discharge, or purulence at this area. Manufacturing Supervisor strength 5/5 without pain. Results & Data Results & Data Vital Signs (Past 12 Hours) Vital Signs Temp Pulse Resp BP Pulse Ox 04/01/23 11:00 81 20 168/85 H 91 04/01/23 09:58 36.6 C 82 18 150/91 H 94 PG Care Time/CCT Total # of Minutes Spent Total Time Spent with Patient: Total time spent is greater than 50% in coordination of care (as documented) at patient's floor/unit and/or counseling patient: Coding Level of Care Code 51408 INT INP/OBS CARE 3/75MIN Diagnoses Bacteremia R78.81 Acute exacerbation of chronic obstructive airways disease J44.1 Paroxysmal atrial fibrillation I48.0 Atrial fibrillation type: paroxysmal CKD (chronic kidney disease) stage 3, GFR 30-59 ml/min N18.3 Anxiety disorder F41.9 Hypomagnesemia E83.42 Nonobstructive atherosclerosis of coronary artery I25.10 (3) Atrial fibrillation Atrial fibrillation type: paroxysmal Qualified Code(s): I48.0 - Paroxysmal atrial fibrillation
[2023-04-01] MEDS ORDERED: ALBUT/IPRATROP 3MG/0.5MG NEB 3 ML VIAL NEB PRN ×2 (12:04→14:46)
[2023-04-01] MEDS ORDERED: PLASMA LYTE A IV ONE (12:14)
--- NOTE | 2023-04-01 13:06 | Electrocardiogram Report ---
Test Reason : Blood Pressure : / mmHG Vent. Rate : 077 BPM Atrial Rate : 077 BPM P-R Int : 156 ms QRS Dur : 096 ms QT Int : 368 ms P-R-T Axes : 087 042 074 degrees QTc Int : 416 ms Normal sinus rhythm Diffuse Minor Nonspecific ST abnormality Abnormal ECG When compared with ECG of 31-MAR-2023 08:19, No significant change was found Confirmed by Hugo Mendes [id number] on 04/01/2023 1:06:03 PM Referred By: REFERRED SELF Confirmed By:Hugo Mendes
[2023-04-01] MEDS ORDERED: ACETAMINOPHEN 325 MG TAB PO PRN (14:46)
[2023-04-01] MEDS ORDERED: ALBUTEROL HFA 8 GM INHALER INH PRN (14:46)
[2023-04-01] MEDS: UMECLIDINIUM BROMIDE 62.5MCG/BLISTER 7 PUFFS/INHALER INH SCH (15:14)
[2023-04-01] MEDS: MAGNESIUM SULFATE / D5W 1 GM/100 ML BAG IV SCH ×2 (15:14→17:05)
[2023-04-01] MEDS: NICOTINE 14 MG/24 HR PATCH TD SCH (15:41)
[2023-04-01 17:51] LABS: Appearance Urine Cloudy (Clear); Bacteria Urine Automated 1+ (Negative); Bilirubin Urine Negative (Negative); Blood Urine Trace (Negative); Color Urine Yellow; Glucose Urine UA Negative (Negative); Ketones Urine Negative (Negative); Leukocyte Esterase Urine Trace (Negative); Nitrite Urine Negative (Negative); Protein Urine Negative (Negative); Specific Gravity Urine 1.015 (1.000-1.030); Urobilinogen Urine Negative (Negative); pH Urine 5.5 (4.5-7.5)
[2023-04-01 18:01] LABS: RBC Urine Automated 0-4 /hpf (0-4)
[2023-04-01] MEDS: lamoTRIgine 100 MG TAB PO SCH (20:46)
[2023-04-01] MEDS: APIXABAN 5 MG TABLET PO SCH (20:47)
[2023-04-01] MEDS: GABAPENTIN 400 MG CAP PO SCH (20:48)
[2023-04-01] MEDS: PRAMIPEXOLE DIHYDROCHLO 0.5 MG TAB PO SCH (20:48)
[2023-04-01] MEDS: MONTELUKAST SODIUM 10 MG TABLET PO SCH (20:49)
[2023-04-01] MEDS: traZODone HCL 50 MG TAB PO SCH (20:49)
[2023-04-01] MEDS: CALCIUM 600MG + VIT D 400 IU TAB PO SCH (20:49)
[2023-04-01] MEDS: ASPIRIN 81 MG ECTAB PO SCH (20:51)
[2023-04-01] MEDS: ATORVASTATIN 40 MG TAB PO SCH (20:51)
[2023-04-01] MEDS: methylPREDNISolone 40 MG in SYRINGE 0 ML IV SCH (20:52)
[2023-04-01] MEDS: DORZOLAMIDE HCL 2% OPH SOLN 10 ML BTL OPL SCH (20:52)
[2023-04-01] MEDS: TRAVOPROST Z 0.004% OPH SOLN 2.5 ML BTL OP SCH (20:53)
[2023-04-01] MEDS: BRIMONIDINE TARTRATE 0.2% 5ML OP SCH (20:53)
[2023-04-01] MEDS: TIMOLOL MALEATE 0.5% OP SOLN 5 ML BTL OP SCH (20:53)
[2023-04-02] MEDS: guaiFENesin 600 MG TABCR PO PRN ×2 (00:26→09:48)
[2023-04-02 07:38] LABS: Basophils # (auto) 0.01 K/uL (0.00-0.20); Basophils % (auto) 0.1 %; Hematocrit (blood only) 37.9 % (37.0-47.0); Hemoglobin 12.3 g/dl (12.0-16.0); Immature Granulocytes # (auto) 0.14 K/uL (0.01-0.20); Immature Granulocytes % (auto) 0.9 %; Lymphocytes # (auto) 1.44 K/uL (1.20-3.40); Lymphocytes % (auto) 9.3 %; Mean Corpuscular Hemoglobin 28.5 pg (25.0-34.0); Mean Corpuscular Hgb Conc 32.5 g/dL (32.0-36.0); Mean Corpuscular Volume 87.9 fL (80.0-100.0); Monocytes # (auto) 0.48 K/uL (0.11-0.59); Monocytes % (auto) 3.1 %; Neutrophils # (auto) 13.44 K/uL (1.40-6.50); Neutrophils % (auto) 86.6 %; Platelet Count 227 K/uL (130-400); RDW Coefficient of Variation 15.1 % (11.5-14.5); RDW Standard Deviation 48.1 fL (36.4-46.3); Red Blood Count 4.31 M/uL (4.20-5.40); White Blood Count 15.51 K/ul (4.8-10.8)
[2023-04-02 09:05] LABS: BUN Creatinine Ratio 33.3 (10-20); Creatinine Clr Calc Pharmacy 70.9 ml/min; Est GFR (African American) 97.7 ml/min; Est GFR (Non-African American) 84.3 ml/min; Potassium 3.9 mmol/L (3.5-5.1)
[2023-04-02] MEDS: CHOLECALCIFEROL 1,000 UNITS 25 MCG TAB PO SCH (09:48)
[2023-04-02] MEDS: ESCITALOPRAM OXALATE 10 MG TAB PO SCH (09:49)
[2023-04-02] MEDS: APIXABAN 5 MG TABLET PO SCH ×2 (09:49→21:00)
[2023-04-02] MEDS: ASCORBIC ACID 500 MG TAB PO SCH (09:50)
[2023-04-02] MEDS: PANTOprazole 40 MG TAB PO SCH (09:51)
[2023-04-02] MEDS: CYANOCOBALAMIN (B-12) 2,500 MCG TABLET PO SCH (09:51)
[2023-04-02] MEDS: DIGOXIN 0.125 MG TAB PO SCH (09:51)
[2023-04-02] MEDS: LORATADINE 10 MG TAB PO SCH (09:52)
[2023-04-02] MEDS: OXYBUTYNIN CHLORIDE XL 5 MG TABCR PO SCH (09:52)
[2023-04-02] MEDS: dilTIAZem HCL 240 MG CAPCR PO SCH (09:53)
[2023-04-02] MEDS: CALCIUM 600MG + VIT D 400 IU TAB PO SCH ×2 (09:53→21:02)
[2023-04-02] MEDS: GABAPENTIN 400 MG CAP PO SCH ×2 (09:53→20:59)
[2023-04-02] MEDS: BRIMONIDINE TARTRATE 0.2% 5ML OP SCH ×2 (09:54→20:56)
[2023-04-02] MEDS: DORZOLAMIDE HCL 2% OPH SOLN 10 ML BTL OPL SCH ×2 (09:54→20:57)
[2023-04-02] MEDS: NICOTINE 14 MG/24 HR PATCH TD SCH (09:55)
[2023-04-02] MEDS: UMECLIDINIUM BROMIDE 62.5MCG/BLISTER 7 PUFFS/INHALER INH SCH (09:55)
[2023-04-02] MEDS: TIMOLOL MALEATE 0.5% OP SOLN 5 ML BTL OP SCH ×2 (09:56→20:58)
[2023-04-02] MEDS ORDERED: ALBUT/IPRATROP 3MG/0.5MG NEB 3 ML VIAL NEB STA (10:37)
[2023-04-02] MEDS: AMPHETAMINE ASP/SULF/DEXTRAMPH 10 MG TAB PO SCH ×2 (11:32→15:34)
[2023-04-02] MEDS: cefTRIAXone SODIUM 2,000 MG in DEXTROSE 5 % MINI-B 50 ML IV SCH (12:31)
[2023-04-02] MEDS: methylPREDNISolone 40 MG in SYRINGE 0 ML IV SCH ×2 (12:33→21:00)
--- NOTE | 2023-04-02 12:43 | Infectious Disease Consult ---
Date of Consultation April 02, 2023 Assessment & Plan (1) Bacteremia: (2) Acute exacerbation of chronic obstructive airways disease: Plan This is an 82 year old female w/pmh of copd on nightly 02 ( 3lNC) , hearing loss, pulmonary nodules, cad who presents on 04/01 to ED after being called back for positive BC. She initially presented to the ED on 03/31 for increased shortness of breath. She was diagnosed with COPD exacerbation and was discharged on doxycycline and prednisone. BC obtained during that visit grew GPC in chains in 2/4 bottles and PCR + for strep species and she was called back to the ED. She complains of cough, congestion and shortness of breath. She was diagnosed with Covid 19 in 02/2023 but recovered. About 1 week ago , she developed her current symptoms. She noted that she had increased 02 requirements using supplemental o2 during the day in addition to baseline nightly supplemental o2. About 3 weeks ago, her cat nipped and bit her on left hand. She used betadine and antiseptic ointment at the site and did not developed swelling, redness or swelling. She denies any rash, mouth ulcers, dental pain, wounds, abdominal pain , nausea, vomiting or change in urine or bowel habits. She is an active cigarette smoker. On admission, she was afebrile ad required 2l NC to maintain 02 sat of 91-94%. Labs noted for wbc 13.21 ( started on steroids), bun 27, cr 0.62, lactate 2.1?2.5. procal <0.05. Covid negative. UA with 1-5 wbc. Bc obtained 02/28 2/4 + gpc in chains. BC ID pcr strep sp. CXr without infiltrates. She was started on Ceftriaxone. Id consulted for strep sp bacteremia. Micro bc 03/31 2/4 gpc in chains BC 04/01 Ngtd UC > 100K prob enterococcus, 30K GNR Abx #Acute hypoxic respiratory failure #Streptococcus species. bacteremia #Sp BL TKR, BL Ankle hardware, R hip replacement, spinal hardware Source of streptococcus bacteremia is unknown at this time. She admits to a cat bite 3 wks ago, but has no evidence of wounds, rash, ulcers or SSTI. She denies GI symptoms. She has multiple prosthetics and hardware- BL TKA, Rhip replacement, BL ankle hardware, and spinal hardware She has no signs of effusion or local infection at these sites. She is edentulous and denies mouth pain or ulcers. She has bacteriuria without symptoms Recommendations. Fu Id and sensi of strep sp Follow up BC Continue Ceftriaxone 2 g iv q24 Check TTE Check sputum cx Thank you for this consultation. ID will continue to follow. Allie Orourke MD, MPH Infectious Disease [facility], [facility] Call [phone] with questions. Consultation Information Consultation was provided via telemedicine using two-way real-time interactive telecommunication between the patient and the telemedicine provider. For the duration of the visit, the provider was performing the assessment from a different facility than the patient. This includesuse of bluetooth stethoscope forauscultationperformed by the telepresenter that the telemedicine provider can hear if described in the physical exam. [employer] contact information: Please call [facility] Call Center [phone]. (Phone Number For Physician Use Only) After establishing a telemedicine visit, patient was: Patient was verified with two unique identifiers Time Spent with Patient: Initial => 75 min History of Present Illness Reason for Consultation: Bacteremia Requesting Physician: Leila Baum MD Attending Physician: Leila Baum MD History of Present Illness This is an 82 year old female w/pmh of copd on nightly 02 ( 3lNC) , hearing loss, pulmonary nodules, cad who presents on 04/01 to ED after being called back for positive BC. She initially presented to the ED on 03/31 for increased shortness of breath. She was diagnosed with COPD exacerbation and was discharged on doxycycline and prednisone. BC obtained during that visit grew GPC in chains in 2/4 bottles and PCR + for strep species and she was called back to the ED. She complains of cough, congestion and shortness of breath. She was diagnosed with Covid 19 in 02/2023 but recovered. About 1 week ago , she developed her current symptoms. She noted that she had increased 02 requirements using supplemental o2 during the day in addition to baseline nightly supplemental o2. About 3 weeks ago, her cat nipped and bit her on left hand. She used betadine and antiseptic ointment at the site and did not developed swelling, redness or swelling. She denies any rash, mouth ulcers, dental pain, wounds, abdominal pain , nausea, vomiting or change in urine or bowel habits. She is an active cigarette smoker. On admission, she was afebrile ad required 2l NC to maintain 02 sat of 91-94%. Labs noted for wbc 13.21 ( started on steroids), bun 27, cr 0.62, lactate 2.1?2.5. procal <0.05. Covid negative. UA with 1-5 wbc. Bc obtained 02/28 2/4 + gpc in chains. BC ID pcr strep sp. CXr without infiltrates. She was started on Ceftriaxone. Id consulted for strep sp bacteremia. Allergies Allergy/AdvReac Type Severity Reaction Status Date / Time procaine Allergy Severe novacaine Verified 04/01/23 12:15 - anaphylaxis, mouth swelling, dyspnea azithromycin Allergy Intermediate throat Verified 04/01/23 12:15 burned, lost weight fluticasone Allergy Intermediate chest pain Verified 04/01/23 12:15 (from [place]) salmeterol Allergy Intermediate chest pain Verified 04/01/23 12:15 (from [place]) chocolate flavor Allergy Mild rash Verified 04/01/23 12:15 Penicillins Allergy Unknown per Verified 04/01/23 12:15 allergy test (tolerated rocephin in the past) zolpidem AdvReac Intermediate sleep Verified 04/01/23 12:15 walking moxifloxacin AdvReac Mild N/V Verified 04/01/23 12:15 NSAIDS (Non-Steroidal AdvReac Mild advised to Verified 04/01/23 12:15 Anti-Inflamma avoid d/t ulcer hx Home Medications Medication Instructions Recorded Confirmed Type psyllium seed (sugar) oral powder 1 tbsp PO DAILY PRN Constipation 03/03/20 04/01/23 History (Metamucil (sugar) oral powder) escitalopram oxalate 5 mg tablet 5 mg PO QAM #90 tabs 03/15/20 04/01/23 Rx (Lexapro) calcium carbonate 600 mg-vitamin 1 tab PO BID #60 tabs 04/28/20 04/01/23 Rx D3 10 mcg (400 unit) tablet (Calcium 600 + D(3)) escitalopram oxalate 20 mg tablet 20 mg PO DAILY #30 tabs 04/28/20 04/01/23 Rx (Lexapro) trazodone 150 mg tablet 225 mg (1.5 x 150 mg) PO HS #45 04/28/20 04/01/23 Rx tabs loratadine 10 mg tablet 10 mg PO DAILY #30 tabs 05/29/20 04/01/23 Rx cyanocobalamin (vitamin B-12) 2,500 mcg PO DAILY #30 tabs 07/17/20 04/01/23 Rx 2,500 mcg tablet zinc gluconate 50 mg tablet 50 mg PO QAM #30 tabs 07/20/20 04/01/23 Rx aspirin 81 mg tablet,delayed 81 mg PO HS #30 tabs 08/18/20 04/01/23 Rx release cholecalciferol (vitamin D3) 50 2,000 unit PO QAM #30 tabs 09/13/20 04/01/23 Rx mcg (2,000 unit) tablet multivitamin 1 tab PO QAM #30 tabs 09/13/20 04/01/23 Rx Oxygen Home #1 ea 03/27/21 04/01/23 Rx Scooter #1 ea 04/03/21 04/01/23 Rx brimonidine 0.2 %-timolol 0.5 % 1 drp ophthalmic (eye) BID 05/03/21 04/01/23 History eye drops travoprost 0.004 % eye drops 1 drp ophthalmic (eye) QPM 05/03/21 04/01/23 History dextroamphetamine-amphetamine 10 10 mg PO .COMPLEX 03/07/22 04/01/23 History mg tablet (Adderall) oxybutynin chloride 5 mg 5 mg PO DAILY #90 tabs 09/10/22 04/01/23 Rx tablet,extended release 24 hr albuterol sulfate 90 mcg/actuation 2 puff inhalation Q4 PRN Shortness 10/11/22 04/01/23 Rx aerosol inhaler (Ventolin HFA) Of Breath Or Wheezing #3 Inhalers acetaminophen 500 mg tablet 1,000 mg PO DIRECTED PRN Pain 11/12/22 04/01/23 History (Tylenol Extra Strength) ascorbic acid (vitamin C) 500 mg 500 mg PO DAILY 11/12/22 04/01/23 History tablet (Vitamin C) biotin 10 mg tablet 10 mg PO DAILY 11/12/22 04/01/23 History dorzolamide 2 % eye drops 1 drp OPL BID 11/12/22 04/01/23 History guaifenesin 600 mg tablet, 600 mg PO Q12H PRN Congestion 11/12/22 04/01/23 History extended release 12 hr (Mucinex) vitamin E 268 mg (400 unit) capsule 536 mg PO DAILY 11/12/22 04/01/23 History atorvastatin 40 mg tablet 40 mg PO HS #90 tabs 01/02/23 04/01/23 Rx digoxin 125 mcg (0.125 mg) tablet 125 mcg PO QAM #30 tabs 01/02/23 04/01/23 Rx diltiazem HCl 240 mg 240 mg PO QAM #30 caps 01/02/23 04/01/23 Rx capsule,extended release 24 hr, controlled (DILT-XR) montelukast 10 mg tablet 10 mg PO HS #90 tabs 01/02/23 04/01/23 Rx (Singulair) pramipexole 0.5 mg tablet (Mirapex) 0.5 mg PO HS 01/14/23 04/01/23 History apixaban 5 mg tablet (Eliquis) 5 mg PO BID #60 tabs 02/27/23 04/01/23 Rx gabapentin 400 mg capsule 400 mg PO BID #60 caps 02/27/23 04/01/23 Rx ipratropium 0.5 mg-albuterol 3 mg 3 ml NEB Q6H PRN shortness of 03/27/23 04/01/23 Rx (2.5 mg base)/3 mL nebulization breath or wheezing #90 mL soln lamotrigine 150 mg tablet 150 mg PO HS #30 tabs 03/27/23 04/01/23 Rx pantoprazole 40 mg tablet,delayed 40 mg PO QAM #30 tabs 03/27/23 04/01/23 Rx release nebulizer accessories #2 ea 03/31/23 04/01/23 Rx nebulizers #1 ea 03/31/23 04/01/23 Rx prednisone 10 mg tablet 10 mg PO DIRECTED 04/01/23 04/01/23 History Patient History Medical History Nocturnal hypoxia Achilles tendon contracture, left CAD (coronary artery disease) Mild- luminal irregularities only on 2003 cardiac cath Restless leg syndrome On home oxygen therapy 3-4L N/C at hs Esophageal stenosis Stable- usually drinks while eating to keep food moving - no recent choking Incontinence of urine Peptic ulcer disease Anemia Cancer skin cancer (forehead)- removed Hearing deficit b/l HERRERA Glaucoma left eye ADHD Stable Depression Hyperlipidemia Chronic obstructive pulmonary disease stable Anxiety disorder Well controlled- follows with psych History of transient cerebral ischemia Raynaud's disease Rheumatoid arthritis (02/25/13) Pt unsure if arthritis is OA vs RA- has seen rheum in the past and told different diagnosis CKD (chronic kidney disease) stage 3, GFR 30-59 ml/min Atrial fibrillation paroxysmal Asthma Lumbar stenosis with neurogenic claudication Arthroplasty of knee (02/25/13) Surgical History History of total hip arthroplasty right hip H/O toe surgery left foot S/P foot surgery, left removal of bone spur History of total knee replacement bilateral; right TKA: 05/22/17: SAB x1 at L3-L4 + PNB at [facility] S/P hardware removal right ankle S/P laparotomy removed adhesions to relieve bowel strangulation S/P ankle arthrodesis right ankle History of open reduction and internal fixation (ORIF) procedure right ankle H/O elbow surgery bilateral S/P AMANDA (total abdominal hysterectomy) H/O thumb surgery right Fusion of spine lumbar x2--last 12/2018 History of discectomy lumbar History of appendectomy History of colonoscopy History of esophagogastroduodenoscopy (EGD) History of surgical removal of skin lesion History of tonsillectomy Family History Family/Other Cancer Coronary heart disease Heart disease Hypertension Brother Benign familial tremor Prostate cancer Father Benign familial tremor Mother Malignant melanoma Aunt Rheumatoid arthritis Denies family history of Ovarian cancer Myocardial infarction Breast cancer Colorectal cancer Social History Smoking Status: Former smoker Tobacco Type: Cigarettes Age Started Using Tobacco: 19; Cigarettes Per Day: 2; Second Hand Exposure: No; Do You Dip or Chew Tobacco: No; Hx Alcohol Use: Yes Alcohol type: beer Alcohol Intake Frequency Comment: rarely Hx Substance Use: No Preferred Language: Thai Communication Ability: Effective Visual Impairment: No Limitations Hearing Ability: Hard of Hearing [employer] Required: No Beliefs That Will Affect Care: None marital status: Current Living Situation: Alone Current Living Situation Comment: lives in [address]pc apartment 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al status: retired How many Children do You have: 2 Feels Safe at Home: Yes Safety Concerns: Feels Safe At This Time Childhood Exposure to Second-Hand Smoke: No Diet: regular caffeine: Yes during the past year weight has: remained stable Dental Care, Regularly: No Physical Activity Frequency: Daily Seatbelt Use: always Sunscreen Use: Yes (sometimes ) Assistive Devices: Oxygen - at Night Review of System A 10 point ROS obtained. Pertinent positives as per HPI. Physical Exam Physical Exam: Gen- NAD, on 2l NC HEENT - Perrla, anicteric sclera, dentures removed, no oral lesions Neck supple Abd- soft, NT Skin- no lesion, wounds, rash Ext- No edam MSK- ROM intact,Well healed lower back incision, no knee, hip or ankle effusions Neuro- AAo*3 Results & Data Vital Signs (Past 12 Hours) Vital Signs Temp Pulse Pulse Resp BP Pulse Ox O2 Del Method 04/02/23 11:20 36.6 C 60 22 174/71 H 96 Nasal Cannula 04/02/23 10:47 66 16 98 Nasal Cannula 04/02/23 09:51 70 04/02/23 07:25 36.6 C 68 19 146/53 H 96 Nasal Cannula 04/02/23 02:50 36.5 C 64 16 139/65 94 Nasal Cannula O2 Flow Rate 04/02/23 11:20 2 04/02/23 10:47 2 04/02/23 09:51 04/02/23 07:25 2 04/02/23 02:50 Laboratory Results Laboratory Results - last 48 hr 04/01/23 04/01/23 04/01/23 10:23 10:48 12:20 WBC 16.21 H RBC 4.47 Hgb 12.8 Hct 40.0 MCV 89.5 MCH 28.6 MCHC 32.0 RDW Std Deviation 49.0 H RDW Coeff of Asp[place] 14.9 H Plt Count 238 MPV 10.4 Immature Gran % (Auto) 1.0 Neut % (Auto) 86.8 Lymph % (Auto) 7.3 Day % (Auto) 4.8 Eos % (Auto) 0.0 Baso % (Auto) 0.1 Neut # (Auto) 14.07 H Lymph # (Auto) 1.18 L Day # (Auto) 0.78 H Eos # (Auto) 0.00 Baso # (Auto) 0.02 Immature Gran # (Auto) 0.16 PT 11.1 INR 1.0 APTT 28.3 PTT Ratio 1.0 Sodium 143 Potassium 3.8 Chloride 107 Carbon Dioxide 29 Anion Gap 7 BUN 27 H Creatinine 0.62 Est Cr Clr Drug Dosing 67.5 Est GFR ( Amer) 96.6 Est GFR (Non-Af Amer) 83.4 BUN/Creatinine Ratio 43.5 H Glucose 114 H Lactate 2.1 H* 2.5 H* Calcium 11.0 H Magnesium 1.5 L Total Bilirubin 0.3 Direct Bilirubin 0.1 AST 21 ALT 20 Alkaline Phosphatase 95 Total Protein 6.9 Albumin 4.3 Procalcitonin < 0.05 Urine Color Urine Appearance Urine pH Ur Specific [place] Urine Protein Urine Glucose (UA) Urine Ketones Urine Blood Urine Nitrite Urine Bilirubin Urine Urobilinogen Ur Leukocyte Esterase Urine WBC (Auto) Urine RBC (Auto) U Hyaline Cast (Auto) U Epithel Cells (Auto) Urine Bacteria (Auto) Urine Yeast Digoxin SARS-CoV-2, RNA, NAAT NEGATIVE 04/01/23 04/02/23 Unknown 07:18 WBC 15.51 H RBC 4.31 Hgb 12.3 Hct 37.9 MCV 87.9 MCH 28.5 MCHC 32.5 RDW Std Deviation 48.1 H RDW Coeff of [place] 15.1 H Plt Count 227 MPV 10.0 Immature Gran % (Auto) 0.9 Neut % (Auto) 86.6 Lymph % (Auto) 9.3 Day % (Auto) 3.1 Eos % (Auto) 0.0 Baso % (Auto) 0.1 Neut # (Auto) 13.44 H Lymph # (Auto) 1.44 Day # (Auto) 0.48 Eos # (Auto) 0.00 Baso # (Auto) 0.01 Immature Gran # (Auto) 0.14 PT INR APTT PTT Ratio Sodium 144 Potassium 3.9 Chloride 107 Carbon Dioxide 34 H Anion Gap 3 BUN 20 Creatinine 0.60 Est Cr Clr Drug Dosing 70.9 Est GFR ( Amer) 97.7 Est GFR (Non-Af Amer) 84.3 BUN/Creatinine Ratio 33.3 H Glucose 132 H Lactate Calcium 10.0 Magnesium Total Bilirubin Direct Bilirubin AST ALT Alkaline Phosphatase Total Protein Albumin Procalcitonin Urine Color Yellow Urine Appearance Cloudy A Urine pH 5.5 Ur Specific [place] 1.015 Urine Protein Negative Urine Glucose (UA) Negative Urine Ketones Negative Urine Blood Trace H Urine Nitrite Negative Urine Bilirubin Negative Urine Urobilinogen Negative Ur Leukocyte Esterase Trace H Urine WBC (Auto) 1-5 Urine RBC (Auto) 0-4 U Hyaline Cast (Auto) 1-5 U Epithel Cells (Auto) 10-20 H Urine Bacteria (Auto) 1+ H Urine Yeast Not Reportable Digoxin 0.9 SARS-CoV-2, RNA, NAAT Diagnostic Findings Microbiology 04/01/23 10:23 Blood Aerobic Blood Culture - Preliminary No growth in Aerobic bottle after 24 hours. 04/01/23 10:23 Blood Anaerobic Blood Culture - Preliminary No growth in Anaerobic bottle after 24 hours. 04/01/23 10:23 Blood Aerobic Blood Culture - Preliminary No growth in Aerobic bottle after 24 hours. 04/01/23 10:23 Blood Anaerobic Blood Culture - Preliminary No growth in Anaerobic bottle after 24 hours. Chest X-Ray 04/01/23 10:07 XR chest 1V portable CLINICAL HISTORY: Sepsis. COMPARISON STUDY: Chest radiograph March 31, 2023. FINDINGS: Lung volumes are normal. There is no consolidation to suggest pneumonia. Linear left midlung density represents atelectasis or scarring. There is no pneumothorax or pleural effusion. Moderate cardiomegaly is unchanged. Mediastinal contours are normal. There is no evidence for pulmonary edema. IMPRESSION: No acute cardiopulmonary findings. No change in appearance of the chest. ACT 112: Negative or not required by law. Electronically signed by: Bull Kim M.D. 04/01/2023 10:45 AM Medications Administered Home Medications Medication Instructions Recorded Confirmed Last Taken psyllium seed (sugar) oral powder 1 tbsp PO DAILY PRN Constipation 03/03/20 04/01/23 03/15/20 09:00 (Metamucil (sugar) oral powder) escitalopram oxalate 5 mg tablet 5 mg PO QAM #90 tabs 03/15/20 04/01/23 11/12/22 (Lexapro) calcium carbonate 600 mg-vitamin 1 tab PO BID #60 tabs 04/28/20 04/01/23 11/12/22 08:00 D3 10 mcg (400 unit) tablet (Calcium 600 + D(3)) escitalopram oxalate 20 mg tablet 20 mg PO DAILY #30 tabs 04/28/20 04/01/23 11/12/22 (Lexapro) trazodone 150 mg tablet 225 mg (1.5 x 150 mg) PO HS #45 04/28/20 04/01/23 11/11/22 tabs loratadine 10 mg tablet 10 mg PO DAILY #30 tabs 05/29/20 04/01/23 11/12/22 cyanocobalamin (vitamin B-12) 2,500 mcg PO DAILY #30 tabs 07/17/20 04/01/23 11/12/22 2,500 mcg tablet zinc gluconate 50 mg tablet 50 mg PO QAM #30 tabs 07/20/20 04/01/23 11/12/22 aspirin 81 mg tablet,delayed 81 mg PO HS #30 tabs 08/18/20 04/01/23 11/11/22 release cholecalciferol (vitamin D3) 50 2,000 unit PO QAM #30 tabs 09/13/20 04/01/23 11/12/22 mcg (2,000 unit) tablet multivitamin 1 tab PO QAM #30 tabs 09/13/20 04/01/23 11/12/22 Oxygen Home #1 ea 03/27/21 04/01/23 Unknown Scooter #1 ea 04/03/21 04/01/23 Unknown brimonidine 0.2 %-timolol 0.5 % 1 drp ophthalmic (eye) BID 05/03/21 04/01/23 11/12/22 08:00 eye drops travoprost 0.004 % eye drops 1 drp ophthalmic (eye) QPM 05/03/21 04/01/23 11/11/22 dextroamphetamine-amphetamine 10 10 mg PO .COMPLEX 03/07/22 04/01/23 11/11/22 mg tablet (Adderall) oxybutynin chloride 5 mg 5 mg PO DAILY #90 tabs 09/10/22 04/01/23 11/12/22 tablet,extended release 24 hr albuterol sulfate 90 mcg/actuation 2 puff inhalation Q4 PRN Shortness 10/11/22 04/01/23 Unknown aerosol inhaler (Ventolin HFA) Of Breath Or Wheezing #3 Inhalers acetaminophen 500 mg tablet 1,000 mg PO DIRECTED PRN Pain 11/12/22 04/01/23 Unknown (Tylenol Extra Strength) ascorbic acid (vitamin C) 500 mg 500 mg PO DAILY 11/12/22 04/01/23 11/12/22 tablet (Vitamin C) biotin 10 mg tablet 10 mg PO DAILY 11/12/22 04/01/23 11/12/22 dorzolamide 2 % eye drops 1 drp OPL BID 11/12/22 04/01/23 11/12/22 08:00 guaifenesin 600 mg tablet, 600 mg PO Q12H PRN Congestion 11/12/22 04/01/23 Unknown extended release 12 hr (Mucinex) vitamin E 268 mg (400 unit) capsule 536 mg PO DAILY 11/12/22 04/01/23 11/12/22 atorvastatin 40 mg tablet 40 mg PO HS #90 tabs 01/02/23 04/01/23 Unknown digoxin 125 mcg (0.125 mg) tablet 125 mcg PO QAM #30 tabs 01/02/23 04/01/23 Unknown diltiazem HCl 240 mg 240 mg PO QAM #30 caps 01/02/23 04/01/23 Unknown capsule,extended release 24 hr, controlled (DILT-XR) montelukast 10 mg tablet 10 mg PO HS #90 tabs 01/02/23 04/01/23 Unknown (Singulair) pramipexole 0.5 mg tablet (Mirapex) 0.5 mg PO HS 01/14/23 04/01/23 Unknown apixaban 5 mg tablet (Eliquis) 5 mg PO BID #60 tabs 02/27/23 04/01/23 Unknown gabapentin 400 mg capsule 400 mg PO BID #60 caps 02/27/23 04/01/23 Unknown ipratropium 0.5 mg-albuterol 3 mg 3 ml NEB Q6H PRN shortness of 03/27/23 04/01/23 Unknown (2.5 mg base)/3 mL nebulization breath or wheezing #90 mL soln lamotrigine 150 mg tablet 150 mg PO HS #30 tabs 03/27/23 04/01/23 Unknown pantoprazole 40 mg tablet,delayed 40 mg PO QAM #30 tabs 03/27/23 04/01/23 Unknown release nebulizer accessories #2 ea 03/31/23 04/01/23 Unknown nebulizers #1 ea 03/31/23 04/01/23 Unknown prednisone 10 mg tablet 10 mg PO DIRECTED 04/01/23 04/01/23 Unknown Active Medications Generic Name Dose Route Start Last Admin Trade Name Sarwat PRN Reason Stop Dose Admin Amphetamine/Dextroamphetamine 20 mg 04/02/23 09:00 04/02/23 11:32 Amphetamine Asp/Sulf/Dextramph 10 Mg Tab PO 04/16/23 08:59 20 mg DAILY@0700 KEESHA Administration Apixaban 5 mg 04/01/23 21:00 04/02/23 09:49 Apixaban 5 Mg Tablet PO 05/01/23 20:59 5 mg BID KEESHA Administration Ascorbic Acid 500 mg 04/02/23 09:00 04/02/23 09:50 Ascorbic Acid 500 Mg Tab PO 05/02/23 08:59 500 mg DAILY KEESHA Administration Aspirin 81 mg 04/01/23 21:00 04/01/23 20:51 Aspirin 81 Mg Ectab PO 05/01/23 20:59 81 mg HS KEESHA Administration Atorvastatin Calcium 40 mg 04/01/23 21:00 04/01/23 20:51 Atorvastatin 40 Mg Tab PO 05/01/23 20:59 40 mg HS KEESHA Administration Brimonidine Tartrate 1 drops 04/01/23 21:00 04/02/23 09:54 Brimonidine Tartrate 0.2% 5ml OP 05/01/23 20:59 1 drops BID KEESHA Administration Calcium/Vitamin D 1 tab 04/01/23 21:00 04/02/23 09:53 Calcium 600mg + Vit D 400 Iu Tab PO 05/01/23 20:59 1 tab BID KEESHA Administration Cyanocobalamin 2,500 mcg 04/02/23 09:00 04/02/23 09:51 Cyanocobalamin (B-12) 2,500 Mcg Tablet PO 05/02/23 08:59 2,500 mcg DAILY KEESHA Administration Digoxin 0.125 mg 04/02/23 09:00 04/02/23 09:51 Digoxin 0.125 Mg Tab PO 05/02/23 08:59 0.125 mg QAM KEESHA Administration Diltiazem HCl 240 mg 04/02/23 09:00 04/02/23 09:53 Diltiazem Hcl 240 Mg Capcr PO 05/02/23 08:59 240 mg QAM KEESHA Administration Dorzolamide HCl 1 drops 04/01/23 21:00 04/02/23 09:54 Dorzolamide Hcl 2% Oph Soln 10 Ml Btl OPL 05/01/23 20:59 1 drops BID KEESHA Administration Escitalopram Oxalate 25 mg 04/02/23 09:00 04/02/23 09:49 Escitalopram Oxalate 10 Mg Tab PO 05/02/23 08:59 25 mg DAILY KEESHA Administration Gabapentin 400 mg 04/01/23 21:00 04/02/23 09:53 Gabapentin 400 Mg Cap PO 05/01/23 20:59 400 mg BID KEESHA Administration Guaifenesin 600 mg 04/01/23 14:46 04/02/23 09:48 Guaifenesin 600 Mg Tabcr PO 05/01/23 14:45 600 mg Q12H PRN Administration Congestion Methylprednisolone 40 mg/ 0.64 mls @ 1.5 mls/min 04/01/23 21:00 04/02/23 12:33 Syringe IV 05/01/23 20:59 1.5 mls/min BID KEESHA Administration Ceftriaxone Sodium 2,000 mg/ 50 mls @ 100 mls/hr 04/02/23 11:00 04/02/23 12:31 Dextrose IV 04/16/23 10:59 100 mls/hr Q24H KEESHA Administration Protocol Lamotrigine 150 mg 04/01/23 21:00 04/01/23 20:46 Lamotrigine 100 Mg Tab PO 05/01/23 20:59 150 mg HS KEESHA Administration Loratadine 10 mg 04/02/23 09:00 04/02/23 09:52 Loratadine 10 Mg Tab PO 05/02/23 08:59 10 mg DAILY KEESHA Administration Miscellaneous 1 each 04/02/23 08:59 04/02/23 09:48 Remove Nicoderm Patch N/A 05/02/23 08:58 Not Given DAILY@0859 KEESHA Montelukast Sodium 10 mg 04/01/23 21:00 04/01/23 20:49 Montelukast Sodium 10 Mg Tablet PO 05/01/23 20:59 10 mg HS KEESHA Administration Nicotine 14 mg 04/01/23 12:15 04/02/23 09:55 Nicotine 14 Mg/24 Hr Patch TD 05/01/23 12:14 Not Given QAM KEESHA Oxybutynin Chloride 5 mg 04/02/23 09:00 04/02/23 09:52 Oxybutynin Chloride Xl 5 Mg Tabcr PO 05/02/23 08:59 5 mg DAILY KEESHA Administration Pantoprazole Sodium 40 mg 04/02/23 09:00 04/02/23 09:51 Pantoprazole 40 Mg Tab PO 05/02/23 08:59 40 mg QAM KEESHA Administration Pramipexole Dihydrochloride 0.5 mg 04/01/23 21:00 04/01/23 20:48 Pramipexole Dihydrochlo 0.5 Mg Tab PO 05/01/23 20:59 0.5 mg HS KEESHA Administration Timolol Maleate 1 drops 04/01/23 21:00 04/02/23 09:56 Timolol Maleate 0.5% Op Soln 5 Ml Btl OP 05/01/23 20:59 1 drops BID KEESHA Administration Travoprost 1 drops 04/01/23 21:00 04/01/23 20:53 Travoprost Z 0.004% Oph Soln 2.5 Ml Btl OP 05/01/23 20:59 1 drops QPM KEESHA Administration Trazodone HCl 225 mg 04/01/23 21:00 04/01/23 20:49 Trazodone Hcl 50 Mg Tab PO 05/01/23 20:59 225 mg HS KEESHA Administration Umeclidinium [place] 1 puffs 04/01/23 12:15 04/02/23 09:55 Umeclidinium [place] 62.5mcg/Blister 7 Puffs/Inhaler INH 05/01/23 12:14 1 puffs DAILY KEESHA Administration Vitamin D 2,000 units 04/02/23 09:00 04/02/23 09:48 Cholecalciferol 1,000 Units 25 Mcg Tab PO 05/02/23 08:59 2,000 units QAM KEESHA Administration
--- NOTE | 2023-04-02 13:10 | Hospitalist Progress Note ---
Date of Service April 02, 2023 Assessment & Plan (1) Bacteremia: Plan: Streptococcal sepsis - 03/31 BC 2/ bottles GPC in chains, strep positive piece Suspect pulmonary source. No infected appearing skin wounds/cellulitis. Patient has a history of a recent cat bite to her left hand which was treated cellulitis, on evaluation this is not warm, tender and is without purulence or erythema. Appears well-healed and well treated since her course of antibiotics in January Surveillance cultures ordered, continue Rocephin. Follow speciation. -ID consulted (2) Acute exacerbation of chronic obstructive airways disease: Plan: Acute on chronic COPD, chronic respiratory failure with home oxygen requirement of 3 to 4 L HS With new hypoxia, and diffuse severe wheezing on exam Patient's not tolerated Advair in the past, Incruse added Continue methylprednisolone 40 mg IV twice daily, wean based on clinical progression (3) Atrial fibrillation: Plan: Paroxysmal atrial fibrillation EKG on admission normal sinus rhythm nonspecific ST change without territorial ischemia, chest pain or A-fib on admit Continue Eliquis Continue diltiazem Continue digoxin, level pending (4) CKD (chronic kidney disease) stage 3, GFR 30-59 ml/min: Plan: Creatinine 0.62 on admission, GFR improved approximately 80 Trend daily (5) Anxiety disorder: Plan: Continue lamotrigine, escitalopram (6) Hypomagnesemia: Plan: Repleted, trended (7) Nonobstructive atherosclerosis of coronary artery: Plan: Patient denies history of [place], obstructive CAD, and denies history of heart failure. She has no orthopnea. No chest pain on admission or preceding admission. Plan DVT prophylaxis: DOAC Disposition: PCU due to history of A-fib RVR exacerbations while on steroids and concurrent hypomagnesemia CODE STATUS: DNR/DNI Diet: Heart healthy, soft bite sized Admission and Anticipated Discharge Date Admission Date: April 01, 2023 Subjective patient seen and examined, denies fever or chills Review of Systems Review of Systems: All systems reviewed are negative, apart from the ones contained in the history. Physical Exam Physical Exam: The patient is awake, alert and oriented 3, well developed and well nourished, normocephalic and atraumatic, lying in bed and in no acute distress. HEENT--PERRL, EOMI, mucous membranes and oropharynx mildly dry Neck--supple. No JVD. No bruits. Thyroid normal, trachea midline, no adenopathy. Heart--normal S1 and S2. No murmurs, rubs or gallops. Lungs--reduced air entry to auscultation, bibasilar wheeze Abdomen--normal bowel sounds and soft. Mild epigastric and left sided abdominal pain Extremities--no cyanosis or clubbing. No edema. Dermatologic--normal skin turgor, normal color, no abnormal lymph nodes, no rash. Neurologic--cranial nerves II through XII grossly intact. Rheumatologic--normal range of motion. Psychiatric--normal affect. Results & Data Results & Data Vital Signs (Past 12 Hours) Vital Signs Temp Pulse Pulse Resp BP Pulse Ox O2 Del Method 04/02/23 12:53 66 04/02/23 11:20 97.9 F 60 22 174/71 H 96 Nasal Cannula 04/02/23 10:47 66 16 98 Nasal Cannula 04/02/23 09:51 70 04/02/23 07:25 97.9 F 68 19 146/53 H 96 Nasal Cannula 04/02/23 02:50 97.7 F 64 16 139/65 94 Nasal Cannula O2 Flow Rate 04/02/23 12:53 04/02/23 11:20 2 04/02/23 10:47 2 04/02/23 09:51 04/02/23 07:25 2 04/02/23 02:50 PG Care Time/CCT Total # of Minutes Spent Total Time Spent with Patient: Total time spent is greater than 50% in coordination of care (as documented) at patient's floor/unit and/or counseling patient: Coding Level of Care Code 78921 SUB INP/OBS CARE 2/35MIN Diagnoses Bacteremia R78.81 Acute exacerbation of chronic obstructive airways disease J44.1 Paroxysmal atrial fibrillation I48.0 Atrial fibrillation type: paroxysmal CKD (chronic kidney disease) stage 3, GFR 30-59 ml/min N18.3 Anxiety disorder F41.9 Hypomagnesemia E83.42 Nonobstructive atherosclerosis of coronary artery I25.10 Time Spent (min) 35 (3) Atrial fibrillation Atrial fibrillation type: paroxysmal Qualified Code(s): I48.0 - Paroxysmal atrial fibrillation
[2023-04-02] MEDS ORDERED: PNEUMOCOCCAL VACCINE (PCV20) 20-VAL CONJ-DIP CRM/PF 0.5 ML SYR IM ONE (14:30)
[2023-04-02] MEDS ORDERED: INFLUENZA VACCINE HIGH-DOSE (HD-IIV4) PF 65+ 0.7mL SYR IM ONE (14:30)
[2023-04-02] MEDS: traZODone HCL 50 MG TAB PO SCH (20:56)
[2023-04-02] MEDS: MONTELUKAST SODIUM 10 MG TABLET PO SCH (20:57)
[2023-04-02] MEDS: lamoTRIgine 100 MG TAB PO SCH (20:58)
[2023-04-02] MEDS: ASPIRIN 81 MG ECTAB PO SCH (20:59)
[2023-04-02] MEDS: PRAMIPEXOLE DIHYDROCHLO 0.5 MG TAB PO SCH (20:59)
[2023-04-02] MEDS: TRAVOPROST Z 0.004% OPH SOLN 2.5 ML BTL OP SCH (21:01)
[2023-04-02] MEDS: ATORVASTATIN 40 MG TAB PO SCH (21:07)
[2023-04-03] MEDS: AMPHETAMINE ASP/SULF/DEXTRAMPH 10 MG TAB PO SCH ×2 (06:29→13:47)
[2023-04-03 07:46] LABS: Basophils # (auto) 0.02 K/uL (0.00-0.20); Basophils % (auto) 0.1 %; Hematocrit (blood only) 44.2 % (37.0-47.0); Hemoglobin 14.1 g/dl (12.0-16.0); Immature Granulocytes # (auto) 0.24 K/uL (0.01-0.20); Immature Granulocytes % (auto) 1.5 %; Lymphocytes # (auto) 1.98 K/uL (1.20-3.40); Lymphocytes % (auto) 12.2 %; Mean Corpuscular Hemoglobin 28.1 pg (25.0-34.0); Mean Corpuscular Hgb Conc 31.9 g/dL (32.0-36.0); Mean Corpuscular Volume 88.2 fL (80.0-100.0); Monocytes # (auto) 0.76 K/uL (0.11-0.59); Monocytes % (auto) 4.7 %; Neutrophils # (auto) 13.17 K/uL (1.40-6.50); Neutrophils % (auto) 81.5 %; Platelet Count 290 K/uL (130-400); RDW Coefficient of Variation 14.5 % (11.5-14.5); RDW Standard Deviation 46.6 fL (36.4-46.3); Red Blood Count 5.01 M/uL (4.20-5.40); White Blood Count 16.17 K/ul (4.8-10.8)
[2023-04-03 08:04] LABS: BUN Creatinine Ratio 34.4 (10-20); Calcium 10.8 mg/dl (8.6-10.3); Creatinine Clr Calc Pharmacy 68.9 ml/min; Est GFR (African American) 97.2 ml/min; Est GFR (Non-African American) 83.8 ml/min
[2023-04-03] MEDS: ASCORBIC ACID 500 MG TAB PO SCH (08:18)
[2023-04-03] MEDS: CALCIUM 600MG + VIT D 400 IU TAB PO SCH ×2 (08:18→20:40)
[2023-04-03] MEDS: dilTIAZem HCL 240 MG CAPCR PO SCH (08:19)
[2023-04-03] MEDS: PANTOprazole 40 MG TAB PO SCH (08:19)
[2023-04-03] MEDS: CYANOCOBALAMIN (B-12) 2,500 MCG TABLET PO SCH (08:20)
[2023-04-03] MEDS: guaiFENesin 600 MG TABCR PO PRN (08:20)
[2023-04-03] MEDS: ESCITALOPRAM OXALATE 10 MG TAB PO SCH (08:21)
[2023-04-03] MEDS: DIGOXIN 0.125 MG TAB PO SCH (08:21)
[2023-04-03] MEDS: APIXABAN 5 MG TABLET PO SCH ×2 (08:21→20:31)
[2023-04-03] MEDS: OXYBUTYNIN CHLORIDE XL 5 MG TABCR PO SCH (08:22)
[2023-04-03] MEDS: LORATADINE 10 MG TAB PO SCH (08:23)
[2023-04-03] MEDS: UMECLIDINIUM BROMIDE 62.5MCG/BLISTER 7 PUFFS/INHALER INH SCH (08:24)
[2023-04-03] MEDS: DORZOLAMIDE HCL 2% OPH SOLN 10 ML BTL OPL SCH ×2 (08:24→20:38)
[2023-04-03] MEDS: NICOTINE 14 MG/24 HR PATCH TD SCH (08:24)
[2023-04-03] MEDS: CHOLECALCIFEROL 1,000 UNITS 25 MCG TAB PO SCH (08:24)
[2023-04-03] MEDS: BRIMONIDINE TARTRATE 0.2% 5ML OP SCH ×2 (08:24→20:38)
[2023-04-03] MEDS: TIMOLOL MALEATE 0.5% OP SOLN 5 ML BTL OP SCH ×2 (08:25→20:38)
[2023-04-03] MEDS: methylPREDNISolone 40 MG in SYRINGE 0 ML IV SCH ×2 (08:25→20:41)
[2023-04-03] MEDS: GABAPENTIN 400 MG CAP PO SCH ×2 (08:56→20:29)
[2023-04-03] MEDS ORDERED: ALBUT/IPRATROP 3MG/0.5MG NEB 3 ML VIAL NEB SCH (09:15)
[2023-04-03] MEDS: ALBUT/IPRATROP 3MG/0.5MG NEB 3 ML VIAL NEB SCH ×4 (10:12→22:19)
[2023-04-03] MEDS: cefTRIAXone SODIUM 2,000 MG in DEXTROSE 5 % MINI-B 50 ML IV SCH (10:39)
[2023-04-03] MEDS: FLUTICASONE/VILANTEROL 100/25MCG 14 PUFFS/INHALER INH SCH (11:12)
--- NOTE | 2023-04-03 11:20 | Hospitalist Progress Note ---
Date of Service April 03, 2023 Assessment & Plan (1) Bacteremia: Plan: Streptococcal sepsis - 03/31 BC 2/ bottles GPC in chains, strep positive piece Suspect pulmonary source. No infected appearing skin wounds/cellulitis. Patient has a history of a recent cat bite to her left hand which was treated cellulitis, on evaluation this is not warm, tender and is without purulence or erythema. Appears well-healed and well treated since her course of antibiotics in January Surveillance cultures ordered, continue Rocephin. awaiting full characterization -ID consulted (2) Acute exacerbation of chronic obstructive airways disease: Plan: Acute on chronic COPD, chronic respiratory failure with home oxygen requirement of 3 to 4 L HS With new hypoxia, and diffuse severe wheezing on exam Patient's not tolerated Advair in the past, Incruse added and also Breo Continue methylprednisolone 40 mg IV twice daily, wean based on clinical progression (3) Atrial fibrillation: Plan: Paroxysmal atrial fibrillation EKG on admission normal sinus rhythm nonspecific ST change without territorial ischemia, chest pain or A-fib on admit Continue Eliquis Continue diltiazem Continue digoxin, level pending (4) CKD (chronic kidney disease) stage 3, GFR 30-59 ml/min: Plan: Creatinine 0.62 on admission, GFR improved approximately 80 Trend daily (5) Anxiety disorder: Plan: Continue lamotrigine, escitalopram (6) Hypomagnesemia: Plan: Repleted, trended (7) Nonobstructive atherosclerosis of coronary artery: Plan: Patient denies history of [place], obstructive CAD, and denies history of heart failure. She has no orthopnea. No chest pain on admission or preceding admission. (8) UTI (urinary tract infection): Plan: urine cultures growing Enterroccocus and Citrobacter layne sensisitive continue Ceftriaxone Plan DVT prophylaxis: DOAC Disposition: PCU due to history of A-fib RVR exacerbations while on steroids and concurrent hypomagnesemia CODE STATUS: DNR/DNI Diet: Heart healthy, soft bite sized Admission and Anticipated Discharge Date Admission Date: April 01, 2023 Subjective patient seen and examined, denies fever or chills Review of Systems Review of Systems: All systems reviewed are negative, apart from the ones contained in the history. Physical Exam Physical Exam: The patient is awake, alert and oriented 3, well developed and well nourished, normocephalic and atraumatic, lying in bed and in no acute distress. HEENT--PERRL, EOMI, mucous membranes and oropharynx mildly dry Neck--supple. No JVD. No bruits. Thyroid normal, trachea midline, no adenopathy. Heart--normal S1 and S2. No murmurs, rubs or gallops. Lungs--reduced air entry to auscultation, bibasilar wheeze Abdomen--normal bowel sounds and soft. Mild epigastric and left sided abdominal pain Extremities--no cyanosis or clubbing. No edema. Dermatologic--normal skin turgor, normal color, no abnormal lymph nodes, no rash. Neurologic--cranial nerves II through XII grossly intact. Rheumatologic--normal range of motion. Psychiatric--normal affect. Results & Data Results & Data Vital Signs (Past 12 Hours) Vital Signs Temp Pulse Pulse Resp BP Pulse Ox O2 Del Method 04/03/23 10:12 62 18 96 Nasal Cannula 04/03/23 08:21 77 04/03/23 07:51 97.9 F 90 20 185/66 H 90 Room Air 04/03/23 07:16 77 04/03/23 02:43 97.7 F 64 19 137/72 95 Nasal Cannula 04/02/23 23:33 72 O2 Flow Rate 04/03/23 10:12 2 04/03/23 08:21 04/03/23 07:51 04/03/23 07:16 04/03/23 02:43 04/02/23 23:33 PG Care Time/CCT Total # of Minutes Spent Total Time Spent with Patient: Total time spent is greater than 50% in coordination of care (as documented) at patient's floor/unit and/or counseling patient: Coding Level of Care Code 79149 SUB INP/OBS CARE 2/35MIN Diagnoses Bacteremia R78.81 Acute exacerbation of chronic obstructive airways disease J44.1 Paroxysmal atrial fibrillation I48.0 Atrial fibrillation type: paroxysmal CKD (chronic kidney disease) stage 3, GFR 30-59 ml/min N18.3 Anxiety disorder F41.9 Hypomagnesemia E83.42 Nonobstructive atherosclerosis of coronary artery I25.10 UTI (urinary tract infection) N39.0 Time Spent (min) 35 (3) Atrial fibrillation Atrial fibrillation type: paroxysmal Qualified Code(s): I48.0 - Paroxysmal atrial fibrillation
--- NOTE | 2023-04-03 16:39 | Infectious Disease Progress Nt ---
Date of Service April 03, 2023 Assessment & Plan (1) Bacteremia: (2) Acute exacerbation of chronic obstructive airways disease: Plan This is an 82 year old female w/pmh of copd on nightly 02 ( 3lNC) , hearing loss, pulmonary nodules, cad who presents on 04/01 to ED after being called back for positive BC. She initially presented to the ED on 03/31 for increased shortness of breath. She was diagnosed with COPD exacerbation and was discharged on doxycycline and prednisone. BC obtained during that visit grew GPC in chains in 2/4 bottles and PCR + for strep species and she was called back to the ED. She complains of cough, congestion and shortness of breath. She was diagnosed with Covid 19 in 02/2023 but recovered. About 1 week ago , she developed her current symptoms. She noted that she had increased 02 requirements using supplemental o2 during the day in addition to baseline nightly supplemental o2. About 3 weeks ago, her cat nipped and bit her on left hand. She used betadine and antiseptic ointment at the site and did not developed swelling, redness or swelling. She denies any rash, mouth ulcers, dental pain, wounds, abdominal pain , nausea, vomiting or change in urine or bowel habits. She is an active cigarette smoker. On admission, she was afebrile ad required 2l NC to maintain 02 sat of 91-94%. Labs noted for wbc 13.21 ( started on steroids), bun 27, cr 0.62, lactate 2.1?2.5. procal <0.05. Covid negative. UA with 1-5 wbc. Bc obtained 02/28 2/4 + gpc in chains. BC ID pcr strep sp. CXr without infiltrates. She was started on Ceftriaxone. Id consulted for strep sp bacteremia. Micro BC 03/31 2/4 strep salivarius (S PCN, Ceftriax, R eryth) , 1/4 CONS, 1/4 gamma strep, not enterococcus BC 04/01 Ngtd UC > 100K Probable Enterococcus, 30K Citrobacter freundii Abx Ceftriaxone 04/01- ongoing #Acute hypoxic respiratory failure #Polymicrobial Bacteremia ( Strep Salivarius, CONS, Gamma strep) #Sp BL TKR, BL Ankle hardware, R hip replacement, spinal hardware #Asymptomatic Bacteriuria Source of streptococcus bacteremia is unknown at this time. She admits to a cat bite 3 wks ago, but has no evidence of wounds, rash, ulcers or SSTI. She denies GI symptoms. She has multiple prosthetics and hardware- BL TKA, R hip repla cement, BL ankle hardware, and spinal hardware, She has no signs of effusion or local infection at these sites. She has bacteriuria without symptoms Strep salivarius is usually found in the mouth and is part or oral alexus. It has been associated with meingitis and endocarditis. She is edentulous and denies mouth pain or ulcers. Recommendations. Follow up BC Continue Ceftriaxone 2 g iv q24 Check Transthoracic echo Follow up sputum cx ID will continue to follow. Allie Orourke MD, MPH Infectious Disease [facility], ID Division Call [phone] with questions. Admission and Anticipated Discharge Date Admission Date: April 01, 2023 Subjective This patient recommendation is based on a telemedicine consult request which was completed asynchronously through chart review and information provided by the primary physician. The patient was not seen or examined today. The evaluation is consultative in nature and all patient care and treatment decisions can either be accepted or rejected by the patient's primary hospital-based treating physi jessica using their own independent medical judgment for their patient. Time Spent Reviewing Chart: 21 - 30 minutes BC 03/31 + for strep salivarius, CONS, gamma strep Repeat BC 04/01 NGTD WBC incr 16.17, cr 0.61 Results & Data Vital Signs (Past 12 Hours) Vital Signs Temp Pulse Pulse Resp BP Pulse Ox O2 Del Method 04/03/23 15:16 36.7 C 56 L 21 160/67 H 94 Room Air 04/03/23 15:01 61 20 92 Room Air 04/03/23 11:51 36.8 C 61 20 169/72 H 94 Nasal Cannula 04/03/23 10:12 62 18 96 Nasal Cannula 04/03/23 08:21 77 04/03/23 08:00 Nasal Cannula 04/03/23 07:51 36.6 C 90 20 185/66 H 90 Room Air 04/03/23 07:16 77 O2 Flow Rate 04/03/23 15:16 04/03/23 15:01 04/03/23 11:51 2 04/03/23 10:12 2 04/03/23 08:21 04/03/23 08:00 3 04/03/23 07:51 04/03/23 07:16 Laboratory Results Short CBC 04/03/23 Range/Units 07:17 WBC 16.17 H (4.8-10.8) K/ul Hgb 14.1 (12.0-16.0) g/dl Hct 44.2 (37.0-47.0) % Plt Count 290 (130-400) K/uL BMP 04/03/23 07:17 Sodium 142 Potassium 4.0 Chloride 101 Carbon Dioxide 36 H BUN 21 Creatinine 0.61 Glucose 117 H Calcium 10.8 H Diagnostic Findings Microbiology 04/01/23 Unknown Urine,Clean Catch Urine Culture - Preliminary Probable Enterococcus Citrobacter freundii 04/01/23 10:23 Blood Aerobic Blood Culture - Preliminary No growth in Aerobic bottle after 48 hours. 04/01/23 10:23 Blood Anaerobic Blood Culture - Preliminary No growth in Anaerobic bottle after 48 hours. 04/01/23 10:23 Blood Aerobic Blood Culture - Preliminary No growth in Aerobic bottle after 48 hours. 04/01/23 10:23 Blood Anaerobic Blood Culture - Preliminary No growth in Anaerobic bottle after 48 hours. Chest X-Ray 04/01/23 10:07 XR chest 1V portable CLINICAL HISTORY: Sepsis. COMPARISON STUDY: Chest radiograph March 31, 2023. FINDINGS: Lung volumes are normal. There is no consolidation to suggest pneumonia. Linear left midlung density represents atelectasis or scarring. There is no pneumothorax or pleural effusion. Moderate cardiomegaly is unchanged. Mediastinal contours are normal. There is no evidence for pulmonary edema. IMPRESSION: No acute cardiopulmonary findings. No change in appearance of the chest. ACT 112: Negative or not required by law. Electronically signed by: Bull Kim M.D. 04/01/2023 10:45 AM Medications Administered Home Medications Medication Instructions Recorded Confirmed Last Taken psyllium seed (sugar) oral powder 1 tbsp PO DAILY PRN Constipation 03/03/20 04/01/23 03/15/20 09:00 (Metamucil (sugar) oral powder) escitalopram oxalate 5 mg tablet 5 mg PO QAM #90 tabs 03/15/20 04/01/23 11/12/22 (Lexapro) calcium carbonate 600 mg-vitamin 1 tab PO BID #60 tabs 04/28/20 04/01/23 11/12/22 08:00 D3 10 mcg (400 unit) tablet (Calcium 600 + D(3)) escitalopram oxalate 20 mg tablet 20 mg PO DAILY #30 tabs 04/28/20 04/01/23 11/12/22 (Lexapro) trazodone 150 mg tablet 225 mg (1.5 x 150 mg) PO HS #45 04/28/20 04/01/23 11/11/22 tabs loratadine 10 mg tablet 10 mg PO DAILY #30 tabs 05/29/20 04/01/23 11/12/22 cyanocobalamin (vitamin B-12) 2,500 mcg PO DAILY #30 tabs 07/17/20 04/01/23 11/12/22 2,500 mcg tablet zinc gluconate 50 mg tablet 50 mg PO QAM #30 tabs 07/20/20 04/01/23 11/12/22 aspirin 81 mg tablet,delayed 81 mg PO HS #30 tabs 08/18/20 04/01/23 11/11/22 release cholecalciferol (vitamin D3) 50 2,000 unit PO QAM #30 tabs 09/13/20 04/01/23 11/12/22 mcg (2,000 unit) tablet multivitamin 1 tab PO QAM #30 tabs 09/13/20 04/01/23 11/12/22 Oxygen Home #1 ea 03/27/21 04/01/23 Unknown Scooter #1 ea 04/03/21 04/01/23 Unknown brimonidine 0.2 %-timolol 0.5 % 1 drp ophthalmic (eye) BID 05/03/21 04/01/23 11/12/22 08:00 eye drops travoprost 0.004 % eye drops 1 drp ophthalmic (eye) QPM 05/03/21 04/01/23 11/11/22 dextroamphetamine-amphetamine 10 10 mg PO .COMPLEX 03/07/22 04/01/23 11/11/22 mg tablet (Adderall) oxybutynin chloride 5 mg 5 mg PO DAILY #90 tabs 09/10/22 04/01/23 11/12/22 tablet,extended release 24 hr albuterol sulfate 90 mcg/actuation 2 puff inhalation Q4 PRN Shortness 10/11/22 04/01/23 Unknown aerosol inhaler (Ventolin HFA) Of Breath Or Wheezing #3 Inhalers acetaminophen 500 mg tablet 1,000 mg PO DIRECTED PRN Pain 11/12/22 04/01/23 Unknown (Tylenol Extra Strength) ascorbic acid (vitamin C) 500 mg 500 mg PO DAILY 11/12/22 04/01/23 11/12/22 tablet (Vitamin C) biotin 10 mg tablet 10 mg PO DAILY 11/12/22 04/01/23 11/12/22 dorzolamide 2 % eye drops 1 drp OPL BID 11/12/22 04/01/23 11/12/22 08:00 guaifenesin 600 mg tablet, 600 mg PO Q12H PRN Congestion 11/12/22 04/01/23 Unknown extended release 12 hr (Mucinex) vitamin E 268 mg (400 unit) capsule 536 mg PO DAILY 11/12/22 04/01/23 11/12/22 atorvastatin 40 mg tablet 40 mg PO HS #90 tabs 01/02/23 04/01/23 Unknown digoxin 125 mcg (0.125 mg) tablet 125 mcg PO QAM #30 tabs 01/02/23 04/01/23 Unknown diltiazem HCl 240 mg 240 mg PO QAM #30 caps 01/02/23 04/01/23 Unknown capsule,extended release 24 hr, controlled (DILT-XR) montelukast 10 mg tablet 10 mg PO HS #90 tabs 01/02/23 04/01/23 Unknown (Singulair) pramipexole 0.5 mg tablet (Mirapex) 0.5 mg PO HS 01/14/23 04/01/23 Unknown apixaban 5 mg tablet (Eliquis) 5 mg PO BID #60 tabs 02/27/23 04/01/23 Unknown gabapentin 400 mg capsule 400 mg PO BID #60 caps 02/27/23 04/01/23 Unknown ipratropium 0.5 mg-albuterol 3 mg 3 ml NEB Q6H PRN shortness of 03/27/23 04/01/23 Unknown (2.5 mg base)/3 mL nebulization breath or wheezing #90 mL soln lamotrigine 150 mg tablet 150 mg PO HS #30 tabs 03/27/23 04/01/23 Unknown pantoprazole 40 mg tablet,delayed 40 mg PO QAM #30 tabs 03/27/23 04/01/23 Unknown release nebulizer accessories #2 ea 03/31/23 04/01/23 Unknown nebulizers #1 ea 03/31/23 04/01/23 Unknown prednisone 10 mg tablet 10 mg PO DIRECTED 04/01/23 04/01/23 Unknown Active Medications Generic Name Dose Route Start Last Admin Trade Name Sarwat PRN Reason Stop Dose Admin Albuterol 3 ml 04/03/23 11:00 04/03/23 15:00 Albut/Ipratrop 3mg/0.5mg Neb 3 Ml Vial NEB 05/03/23 10:59 3 ml Q4R KEESHA Administration Amphetamine/Dextroamphetamine 20 mg 04/02/23 09:00 04/03/23 06:29 Amphetamine Asp/Sulf/Dextramph 10 Mg Tab PO 04/16/23 08:59 20 mg DAILY@0700 KEESHA Administration Amphetamine/Dextroamphetamine 10 mg 04/02/23 14:00 04/03/23 13:47 Amphetamine Asp/Sulf/Dextramph 10 Mg Tab PO 04/16/23 13:59 10 mg DAILY@1400 KEESHA Administration Apixaban 5 mg 04/01/23 21:00 04/03/23 08:21 Apixaban 5 Mg Tablet PO 05/01/23 20:59 5 mg BID KEESHA Administration Ascorbic Acid 500 mg 04/02/23 09:00 04/03/23 08:18 Ascorbic Acid 500 Mg Tab PO 05/02/23 08:59 500 mg DAILY KEESHA Administration Aspirin 81 mg 04/01/23 21:00 04/02/23 20:59 Aspirin 81 Mg Ectab PO 05/01/23 20:59 81 mg HS KEESHA Administration Atorvastatin Calcium 40 mg 04/01/23 21:00 04/02/23 21:07 Atorvastatin 40 Mg Tab PO 05/01/23 20:59 40 mg HS KEESHA Administration Brimonidine Tartrate 1 drops 04/01/23 21:00 04/03/23 08:24 Brimonidine Tartrate 0.2% 5ml OP 05/01/23 20:59 1 drops BID KEESHA Administration Calcium/Vitamin D 1 tab 04/01/23 21:00 04/03/23 08:18 Calcium 600mg + Vit D 400 Iu Tab PO 05/01/23 20:59 1 tab BID KEESHA Administration Cyanocobalamin 2,500 mcg 04/02/23 09:00 04/03/23 08:20 Cyanocobalamin (B-12) 2,500 Mcg Tablet PO 05/02/23 08:59 2,500 mcg DAILY KEESHA Administration Digoxin 0.125 mg 04/02/23 09:00 04/03/23 08:21 Digoxin 0.125 Mg Tab PO 05/02/23 08:59 0.125 mg QAM KEESHA Administration Diltiazem HCl 240 mg 04/02/23 09:00 04/03/23 08:19 Diltiazem Hcl 240 Mg Capcr PO 05/02/23 08:59 240 mg QAM KEESHA Administration Dorzolamide HCl 1 drops 04/01/23 21:00 04/03/23 08:24 Dorzolamide Hcl 2% Oph Soln 10 Ml Btl OPL 05/01/23 20:59 1 drops BID KEESHA Administration Escitalopram Oxalate 25 mg 04/02/23 09:00 04/03/23 08:21 Escitalopram Oxalate 10 Mg Tab PO 05/02/23 08:59 25 mg DAILY KEESHA Administration Fluticasone/Vilanterol 1 puffs 04/03/23 09:15 04/03/23 11:12 Fluticasone/Vilanterol 100/25mcg 14 Puffs/Inhaler INH 05/03/23 09:14 1 puffs DAILY KEESHA Administration Gabapentin 400 mg 04/01/23 21:00 04/03/23 08:56 Gabapentin 400 Mg Cap PO 05/01/23 20:59 400 mg BID KEESHA Administration Guaifenesin 600 mg 04/01/23 14:46 04/03/23 08:20 Guaifenesin 600 Mg Tabcr PO 05/01/23 14:45 600 mg Q12H PRN Administration Congestion Methylprednisolone 40 mg/ 0.64 mls @ 1.5 mls/min 04/01/23 21:00 04/03/23 08:25 Syringe IV 05/01/23 20:59 1.5 mls/min BID KEESHA Administration Ceftriaxone Sodium 2,000 mg/ 50 mls @ 100 mls/hr 04/02/23 11:00 04/03/23 11:12 Dextrose IV 04/16/23 10:59 Infused Q24H KEESHA Infusion Protocol Lamotrigine 150 mg 04/01/23 21:00 04/02/23 20:58 Lamotrigine 100 Mg Tab PO 05/01/23 20:59 150 mg HS KEESHA Administration Loratadine 10 mg 04/02/23 09:00 04/03/23 08:23 Loratadine 10 Mg Tab PO 05/02/23 08:59 10 mg DAILY KEESHA Administration Miscellaneous 1 each 04/02/23 08:59 04/03/23 08:18 Remove Nicoderm Patch N/A 05/02/23 08:58 Not Given DAILY@0859 KEESHA Montelukast Sodium 10 mg 04/01/23 21:00 04/02/23 20:57 Montelukast Sodium 10 Mg Tablet PO 05/01/23 20:59 10 mg HS KEESHA Administration Nicotine 14 mg 04/01/23 12:15 04/03/23 08:24 Nicotine 14 Mg/24 Hr Patch TD 05/01/23 12:14 Not Given QAM KEESHA Oxybutynin Chloride 5 mg 04/02/23 09:00 04/03/23 08:22 Oxybutynin Chloride Xl 5 Mg Tabcr PO 05/02/23 08:59 5 mg DAILY KEESHA Administration Pantoprazole Sodium 40 mg 04/02/23 09:00 04/03/23 08:19 Pantoprazole 40 Mg Tab PO 05/02/23 08:59 40 mg QAM KEESHA Administration Pramipexole Dihydrochloride 0.5 mg 04/01/23 21:00 04/02/23 20:59 Pramipexole Dihydrochlo 0.5 Mg Tab PO 05/01/23 20:59 0.5 mg HS KEESHA Administration Timolol Maleate 1 drops 04/01/23 21:00 04/03/23 08:25 Timolol Maleate 0.5% Op Soln 5 Ml Btl OP 05/01/23 20:59 1 drops BID KEESHA Administration Travoprost 1 drops 04/01/23 21:00 04/02/23 21:01 Travoprost Z 0.004% Oph Soln 2.5 Ml Btl OP 05/01/23 20:59 1 drops QPM KEESHA Administration Trazodone HCl 225 mg 04/01/23 21:00 04/02/23 20:56 Trazodone Hcl 50 Mg Tab PO 05/01/23 20:59 225 mg HS KEESHA Administration Umeclidinium [place] 1 puffs 04/01/23 12:15 04/03/23 08:24 Umeclidinium [place] 62.5mcg/Blister 7 Puffs/Inhaler INH 05/01/23 12:14 1 puffs DAILY KEESHA Administration Vitamin D 2,000 units 04/02/23 09:00 04/03/23 08:24 Cholecalciferol 1,000 Units 25 Mcg Tab PO 05/02/23 08:59 2,000 units QAM KEESHA Administration
[2023-04-03] MEDS: MONTELUKAST SODIUM 10 MG TABLET PO SCH (20:29)
[2023-04-03] MEDS: lamoTRIgine 100 MG TAB PO SCH (20:30)
[2023-04-03] MEDS: ASPIRIN 81 MG ECTAB PO SCH (20:31)
[2023-04-03] MEDS: ATORVASTATIN 40 MG TAB PO SCH (20:32)
[2023-04-03] MEDS: traZODone HCL 50 MG TAB PO SCH (20:32)
[2023-04-03] MEDS: PRAMIPEXOLE DIHYDROCHLO 0.5 MG TAB PO SCH (20:33)
[2023-04-03] MEDS: TRAVOPROST Z 0.004% OPH SOLN 2.5 ML BTL OP SCH (20:38)
[2023-04-03] MEDS: BENZONATATE 100 MG CAPSULE PO PRN (20:43)
[2023-04-04] MEDS: ALBUT/IPRATROP 3MG/0.5MG NEB 3 ML VIAL NEB SCH ×6 (02:24→23:13)
[2023-04-04] MEDS: AMPHETAMINE ASP/SULF/DEXTRAMPH 10 MG TAB PO SCH ×2 (06:18→15:01)
[2023-04-04 07:44] LABS: Basophils # (auto) 0.03 K/uL (0.00-0.20); Basophils % (auto) 0.2 %; Hematocrit (blood only) 43.7 % (37.0-47.0); Hemoglobin 14.5 g/dl (12.0-16.0); Immature Granulocytes # (auto) 0.29 K/uL (0.01-0.20); Lymphocytes # (auto) 1.89 K/uL (1.20-3.40); Lymphocytes % (auto) 13.1 %; Mean Corpuscular Hemoglobin 28.8 pg (25.0-34.0); Mean Corpuscular Hgb Conc 33.2 g/dL (32.0-36.0); Mean Corpuscular Volume 86.7 fL (80.0-100.0); Monocytes # (auto) 0.84 K/uL (0.11-0.59); Monocytes % (auto) 5.8 %; Neutrophils # (auto) 11.38 K/uL (1.40-6.50); Neutrophils % (auto) 78.9 %; Platelet Count 297 K/uL (130-400); RDW Coefficient of Variation 14.2 % (11.5-14.5); RDW Standard Deviation 45.1 fL (36.4-46.3); Red Blood Count 5.04 M/uL (4.20-5.40); White Blood Count 14.43 K/ul (4.8-10.8)
[2023-04-04] MEDS: methylPREDNISolone 40 MG in SYRINGE 0 ML IV SCH (08:06)
[2023-04-04] MEDS: GABAPENTIN 400 MG CAP PO SCH ×2 (08:06→21:27)
[2023-04-04] MEDS: TIMOLOL MALEATE 0.5% OP SOLN 5 ML BTL OP SCH ×2 (08:07→21:34)
[2023-04-04] MEDS: FLUTICASONE/VILANTEROL 100/25MCG 14 PUFFS/INHALER INH SCH (08:07)
[2023-04-04] MEDS: UMECLIDINIUM BROMIDE 62.5MCG/BLISTER 7 PUFFS/INHALER INH SCH (08:07)
[2023-04-04] MEDS: BRIMONIDINE TARTRATE 0.2% 5ML OP SCH ×2 (08:07→21:34)
[2023-04-04] MEDS: guaiFENesin 600 MG TABCR PO PRN ×2 (08:08→21:31)
[2023-04-04] MEDS: DORZOLAMIDE HCL 2% OPH SOLN 10 ML BTL OPL SCH ×2 (08:08→21:34)
[2023-04-04 08:09] LABS: BUN Creatinine Ratio 36.1 (10-20); Calcium 10.7 mg/dl (8.6-10.3); Creatinine Clr Calc Pharmacy 58.1 ml/min; Est GFR (African American) 89.8 ml/min; Est GFR (Non-African American) 77.4 ml/min; Potassium 4.4 mmol/L (3.5-5.1)
[2023-04-04] MEDS: CALCIUM 600MG + VIT D 400 IU TAB PO SCH ×2 (08:09→21:31)
[2023-04-04] MEDS: PANTOprazole 40 MG TAB PO SCH (08:09)
[2023-04-04] MEDS: DIGOXIN 0.125 MG TAB PO SCH (08:10)
[2023-04-04] MEDS: ASCORBIC ACID 500 MG TAB PO SCH (08:10)
[2023-04-04] MEDS: CYANOCOBALAMIN (B-12) 2,500 MCG TABLET PO SCH (08:10)
[2023-04-04] MEDS: dilTIAZem HCL 240 MG CAPCR PO SCH (08:11)
[2023-04-04] MEDS: CHOLECALCIFEROL 1,000 UNITS 25 MCG TAB PO SCH (08:11)
[2023-04-04] MEDS: ESCITALOPRAM OXALATE 10 MG TAB PO SCH (08:12)
[2023-04-04] MEDS: OXYBUTYNIN CHLORIDE XL 5 MG TABCR PO SCH (08:13)
[2023-04-04] MEDS: APIXABAN 5 MG TABLET PO SCH ×2 (08:13→21:30)
[2023-04-04] MEDS: LORATADINE 10 MG TAB PO SCH (08:13)
[2023-04-04] MEDS: NICOTINE 14 MG/24 HR PATCH TD SCH (08:14)
[2023-04-04] MEDS: cefTRIAXone SODIUM 2,000 MG in DEXTROSE 5 % MINI-B 50 ML IV SCH (12:29)
--- NOTE | 2023-04-04 13:43 | Infectious Disease Progress Nt ---
Date of Service April 04, 2023 Assessment & Plan (1) Bacteremia: (2) Acute exacerbation of chronic obstructive airways disease: Plan This is an 82 year old female w/pmh of copd on nightly 02 ( 3lNC) , hearing loss, pulmonary nodules, cad who presents on 04/01 to ED after being called back for positive BC. She initially presented to the ED on 03/31 for increased shortness of breath. She was diagnosed with COPD exacerbation and was discharged on doxycycline and prednisone. BC obtained during that visit grew GPC in chains in 2/4 bottles and PCR + for strep species and she was called back to the ED. She complains of cough, congestion and shortness of breath. She was diagnosed with Covid 19 in 02/2023 but recovered. About 1 week ago , she developed her current symptoms. She noted that she had increased 02 requirements using supplemental o2 during the day in addition to baseline nightly supplemental o2. About 3 weeks ago, her cat nipped and bit her on left hand. She used betadine and antiseptic ointment at the site and did not developed swelling, redness or swelling. She denies any rash, mouth ulcers, dental pain, wounds, abdominal pain , nausea, vomiting or change in urine or bowel habits. She is an active cigarette smoker. On admission, she was afebrile ad required 2l NC to maintain 02 sat of 91-94%. Labs noted for wbc 13.21 ( started on steroids), bun 27, cr 0.62, lactate 2.1?2.5. procal <0.05. Covid negative. UA with 1-5 wbc. Bc obtained 02/28 2/4 + gpc in chains. BC ID pcr strep sp. CXr without infiltrates. She was started on Ceftriaxone. Id consulted for strep sp bacteremia. Micro BC 03/31 2/4 strep salivarius (S PCN, Ceftriax, R eryth) , 1/4 CONS, 1/4 gamma strep, not enterococcus BC 04/01 Ngtd UC > 100K Probable Enterococcus, 30K Citrobacter freundii Abx Ceftriaxone 04/01- ongoing #Acute hypoxic respiratory failure #Polymicrobial Bacteremia ( Strep Salivarius, CONS, Gamma strep) #Sp BL TKR, BL Ankle hardware, R hip replacement, spinal hardware #Asymptomatic Bacteriuria # pCn allergy Source of streptococcus bacteremia is unknown at this time. She admits to a cat bite 3 wks ago, but has no evidence of wounds, rash, ulcers or SSTI. She denies GI symptoms. She has multiple prosthetics and hardware- BL TKA, R hip replacement, BL ankle hardware, and spinal hardware, She has no signs of effusion or local infection at these sites. She has bacteriuria without symptoms Strep salivarius is usually found in the mouth and is part or oral alexus. It has been associated with meningitis and endocarditis. She is edentulous and denies mouth pain or ulcers. Recommendations. Follow up BC Continue Ceftriaxone 2 g iv q24 Follow transthoracic echo Follow up sputum cx If repeat BC Remains sterile and no endocoarditis , would treat for 2 weeks from STERILE BC ID will continue to follow. Allie Orourke MD, MPH Infectious Disease [facility], ID Division Call [phone] with questions. Admission and Anticipated Discharge Date Admission Date: April 01, 2023 Subjective This patient recommendation is based on a telemedicine consult request which was completed asynchronously through chart review and information provided by the primary physician. The patient was not seen or examined today. The evaluation is consultative in nature and all patient care and treatment decisions can either be accepted or rejected by the patient's primary hospital-based treating physician using their own independent medical judgment for their patient. Time Spent Reviewing Chart: 11 - 20 minutes echo read pending Results & Data Vital Signs (Past 12 Hours) Vital Signs Temp Pulse Pulse Resp BP Pulse Ox O2 Del Method 04/04/23 11:36 36.9 C 61 21 172/77 H 93 Room Air 04/04/23 10:41 74 16 93 Nasal Cannula 04/04/23 08:10 84 04/04/23 08:00 Room Air 04/04/23 07:37 64 12 90 Room Air 04/04/23 07:36 36.8 C 65 18 154/66 H 92 Nasal Cannula 04/04/23 03:12 36.6 C 58 L 16 151/67 H 94 Nasal Cannula O2 Flow Rate FiO2 04/04/23 11:36 04/04/23 10:41 1.5 04/04/23 08:10 04/04/23 08:00 04/04/23 07:37 21 04/04/23 07:36 2 04/04/23 03:12 2 Laboratory Results Short CBC 04/04/23 Range/Units 07:11 WBC 14.43 H (4.8-10.8) K/ul Hgb 14.5 (12.0-16.0) g/dl Hct 43.7 (37.0-47.0) % Plt Count 297 (130-400) K/uL [facility] 04/04/23 07:11 Sodium 141 Potassium 4.4 Chloride 99 Carbon Dioxide 38 H BUN 26 H Creatinine 0.72 Glucose 139 H Calcium 10.7 H Diagnostic Findings Microbiology 04/01/23 Unknown Urine,Clean Catch Urine Culture - Final Enterococcus faecalis Citrobacter freundii 04/01/23 10:23 Blood Aerobic Blood Culture - Preliminary No growth in Aerobic bottle after 48 hours. 04/01/23 10: Blood Anaerobic Blood Culture - Preliminary No growth in Anaerobic bottle after 48 hours. 04/01/23 10: Blood Aerobic Blood Culture - Preliminary No growth in Aerobic bottle after 48 hours. 04/01/23 10: Blood Anaerobic Blood Culture - Preliminary No growth in Anaerobic bottle after 48 hours. Medications Administered Home Medications Medication Instructions Recorded Confirmed Last Taken psyllium seed (sugar) oral powder 1 tbsp PO DAILY PRN Constipation 03/03/20 04/01/23 03/15/20 09:00 (Metamucil (sugar) oral powder) escitalopram oxalate 5 mg tablet 5 mg PO QAM #90 tabs 03/15/20 04/01/23 11/12/22 (Lexapro) calcium carbonate 600 mg-vitamin 1 tab PO BID #60 tabs 04/28/20 04/01/23 11/12/22 08:00 D3 10 mcg (400 unit) tablet (Calcium 600 + D(3)) escitalopram oxalate 20 mg tablet 20 mg PO DAILY #30 tabs 04/28/20 04/01/23 11/12/22 (Lexapro) trazodone 150 mg tablet 225 mg (1.5 x 150 mg) PO HS #45 04/28/20 04/01/23 11/11/22 tabs loratadine 10 mg tablet 10 mg PO DAILY #30 tabs 05/29/20 04/01/23 11/12/22 cyanocobalamin (vitamin B-12) 2,500 mcg PO DAILY #30 tabs 07/17/20 04/01/23 11/12/22 2,500 mcg tablet zinc gluconate 50 mg tablet 50 mg PO QAM #30 tabs 07/20/20 04/01/23 11/12/22 aspirin 81 mg tablet,delayed 81 mg PO HS #30 tabs 08/18/20 04/01/23 11/11/22 release cholecalciferol (vitamin D3) 50 2,000 unit PO QAM #30 tabs 09/13/20 04/01/23 11/12/22 mcg (2,000 unit) tablet multivitamin 1 tab PO QAM #30 tabs 09/13/20 04/01/23 11/12/22 Oxygen Home #1 ea 03/27/21 04/01/23 Unknown Scooter #1 ea 04/03/21 04/01/23 Unknown brimonidine 0.2 %-timolol 0.5 % 1 drp ophthalmic (eye) BID 05/03/21 04/01/23 11/12/22 08:00 eye drops travoprost 0.004 % eye drops 1 drp ophthalmic (eye) QPM 05/03/21 04/01/23 11/11/22 dextroamphetamine-amphetamine 10 10 mg PO .COMPLEX 03/07/22 04/01/23 11/11/22 mg tablet (Adderall) oxybutynin chloride 5 mg 5 mg PO DAILY #90 tabs 09/10/22 04/01/23 11/12/22 tablet,extended release 24 hr albuterol sulfate 90 mcg/actuation 2 puff inhalation Q4 PRN Shortness 10/11/22 04/01/23 Unknown aerosol inhaler (Ventolin HFA) Of Breath Or Wheezing #3 Inhalers acetaminophen 500 mg tablet 1,000 mg PO DIRECTED PRN Pain 11/12/22 04/01/23 Unknown (Tylenol Extra Strength) ascorbic acid (vitamin C) 500 mg 500 mg PO DAILY 11/12/22 04/01/23 11/12/22 tablet (Vitamin C) biotin 10 mg tablet 10 mg PO DAILY 11/12/22 04/01/23 11/12/22 dorzolamide 2 % eye drops 1 drp OPL BID 11/12/22 04/01/23 11/12/22 08:00 guaifenesin 600 mg tablet, 600 mg PO Q12H PRN Congestion 11/12/22 04/01/23 Unknown extended release 12 hr (Mucinex) vitamin E 268 mg (400 unit) capsule 536 mg PO DAILY 11/12/22 04/01/23 11/12/22 atorvastatin 40 mg tablet 40 mg PO HS #90 tabs 01/02/23 04/01/23 Unknown digoxin 125 mcg (0.125 mg) tablet 125 mcg PO QAM #30 tabs 01/02/23 04/01/23 Unknown diltiazem HCl 240 mg 240 mg PO QAM #30 caps 01/02/23 04/01/23 Unknown capsule,extended release 24 hr, controlled (DILT-XR) montelukast 10 mg tablet 10 mg PO HS #90 tabs 01/02/23 04/01/23 Unknown (Singulair) pramipexole 0.5 mg tablet (Mirapex) 0.5 mg PO HS 01/14/23 04/01/23 Unknown apixaban 5 mg tablet (Eliquis) 5 mg PO BID #60 tabs 02/27/23 04/01/23 Unknown gabapentin 400 mg capsule 400 mg PO BID #60 caps 02/27/23 04/01/23 Unknown ipratropium 0.5 mg-albuterol 3 mg 3 ml NEB Q6H PRN shortness of 03/27/23 04/01/23 Unknown (2.5 mg base)/3 mL nebulization breath or wheezing #90 mL soln lamotrigine 150 mg tablet 150 mg PO HS #30 tabs 03/27/23 04/01/23 Unknown pantoprazole 40 mg tablet,delayed 40 mg PO QAM #30 tabs 03/27/23 04/01/23 Unknown release nebulizer accessories #2 ea 03/31/23 04/01/23 Unknown nebulizers #1 ea 03/31/23 04/01/23 Unknown prednisone 10 mg tablet 10 mg PO DIRECTED 04/01/23 04/01/23 Unknown Active Medications Generic Name Dose Route Start Last Admin Trade Name Freq PRN Reason Stop Dose Admin Albuterol 3 ml 04/03/23 11:00 04/04/23 10:41 Albut/Ipratrop 3mg/0.5mg Neb 3 Ml Vial NEB 05/03/23 10:59 3 ml Q4R KEESHA Administration Amphetamine/Dextroamphetamine 20 mg 04/02/23 09:00 04/04/23 06:18 Amphetamine Asp/Sulf/Dextramph 10 Mg Tab PO 04/16/23 08:59 20 mg DAILY@0700 KEESHA Administration Amphetamine/Dextroamphetamine 10 mg 04/02/23 14:00 04/03/23 13:47 Amphetamine Asp/Sulf/Dextramph 10 Mg Tab PO 04/16/23 13:59 10 mg DAILY@1400 KEESHA Administration Apixaban 5 mg 04/01/23 21:00 04/04/23 08:13 Apixaban 5 Mg Tablet PO 05/01/23 20:59 5 mg BID KEESHA Administration Ascorbic Acid 500 mg 04/02/23 09:00 04/04/23 08:10 Ascorbic Acid 500 Mg Tab PO 05/02/23 08:59 500 mg DAILY KEESHA Administration Aspirin 81 mg 04/01/23 21:00 04/03/23 20:31 Aspirin 81 Mg Ectab PO 05/01/23 20:59 81 mg HS KEESHA Administration Atorvastatin Calcium 40 mg 04/01/23 21:00 04/03/23 20:32 Atorvastatin 40 Mg Tab PO 05/01/23 20:59 40 mg HS KEESHA Administration Benzonatate 100 mg 04/03/23 19:34 04/03/23 20:43 Benzonatate 100 Mg Capsule PO 05/03/23 19:33 100 mg TID PRN Administration Cough Brimonidine Tartrate 1 drops 04/01/23 21:00 04/04/23 08:07 Brimonidine Tartrate 0.2% 5ml OP 05/01/23 20:59 1 drops BID KEESHA Administration Calcium/Vitamin D 1 tab 04/01/23 21:00 04/04/23 08:09 Calcium 600mg + Vit D 400 Iu Tab PO 05/01/23 20:59 1 tab BID KEESHA Administration Cyanocobalamin 2,500 mcg 04/02/23 09:00 04/04/23 08:10 Cyanocobalamin (B-12) 2,500 Mcg Tablet PO 05/02/23 08:59 2,500 mcg DAILY KEESHA Administration Digoxin 0.125 mg 04/02/23 09:00 04/04/23 08:10 Digoxin 0.125 Mg Tab PO 05/02/23 08:59 0.125 mg QAM KEESHA Administration Diltiazem HCl 240 mg 04/02/23 09:00 04/04/23 08:11 Diltiazem Hcl 240 Mg Capcr PO 05/02/23 08:59 240 mg QAM KEESHA Administration Dorzolamide HCl 1 drops 04/01/23 21:00 04/04/23 08:08 Dorzolamide Hcl 2% Oph Soln 10 Ml Btl OPL 05/01/23 20:59 1 drops BID KEESHA Administration Escitalopram Oxalate 25 mg 04/02/23 09:00 04/04/23 08:12 Escitalopram Oxalate 10 Mg Tab PO 05/02/23 08:59 25 mg DAILY KEESHA Administration Fluticasone/Vilanterol 1 puffs 04/03/23 09:15 04/04/23 08:07 Fluticasone/Vilanterol 100/25mcg 14 Puffs/Inhaler INH 05/03/23 09:14 1 puffs DAILY KEESHA Administration Gabapentin 400 mg 04/01/23 21:00 04/04/23 08:06 Gabapentin 400 Mg Cap PO 05/01/23 20:59 400 mg BID KEESHA Administration Guaifenesin 600 mg 04/01/23 14:46 04/04/23 08:08 Guaifenesin 600 Mg Tabcr PO 05/01/23 14:45 600 mg Q12H PRN Administration Congestion Ceftriaxone Sodium 2,000 mg/ 50 mls @ 100 mls/hr 04/02/23 11:00 04/04/23 13:13 Dextrose IV 04/16/23 10:59 Infused Q24H KEESHA Infusion Protocol Lamotrigine 150 mg 04/01/23 21:00 04/03/23 20:30 Lamotrigine 100 Mg Tab PO 05/01/23 20:59 150 mg HS KEESHA Administration Loratadine 10 mg 04/02/23 09:00 04/04/23 08:13 Loratadine 10 Mg Tab PO 05/02/23 08:59 10 mg DAILY KEESHA Administration Miscellaneous 1 each 04/02/23 08:59 04/04/23 08:06 Remove Nicoderm Patch N/A 05/02/23 08:58 Not Given DAILY@0859 KEESHA Montelukast Sodium 10 mg 04/01/23 21:00 04/03/23 20:29 Montelukast Sodium 10 Mg Tablet PO 05/01/23 20:59 10 mg HS KEESHA Administration Nicotine 14 mg 04/01/23 12:15 04/04/23 08:14 Nicotine 14 Mg/24 Hr Patch TD 05/01/23 12:14 Not Given QAM KEESHA Oxybutynin Chloride 5 mg 04/02/23 09:00 04/04/23 08:13 Oxybutynin Chloride Xl 5 Mg Tabcr PO 05/02/23 08:59 5 mg DAILY KEESHA Administration Pantoprazole Sodium 40 mg 04/02/23 09:00 04/04/23 08:09 Pantoprazole 40 Mg Tab PO 05/02/23 08:59 40 mg QAM KEESHA Administration Pramipexole Dihydrochloride 0.5 mg 04/01/23 21:00 04/03/23 20:33 Pramipexole Dihydrochlo 0.5 Mg Tab PO 05/01/23 20:59 0.5 mg HS KEESHA Administration Timolol Maleate 1 drops 04/01/23 21:00 04/04/23 08:07 Timolol Maleate 0.5% Op Soln 5 Ml Btl OP 05/01/23 20:59 1 drops BID KEESHA Administration Travoprost 1 drops 04/01/23 21:00 04/03/23 20:38 Travoprost Z 0.004% Oph Soln 2.5 Ml Btl OP 05/01/23 20:59 1 drops QPM KEESHA Administration Trazodone HCl 225 mg 04/01/23 21:00 04/03/23 20:32 Trazodone Hcl 50 Mg Tab PO 05/01/23 20:59 225 mg HS KEESHA Administration Umeclidinium [place] 1 puffs 04/01/23 12:15 04/04/23 08:07 Umeclidinium [place] 62.5mcg/Blister 7 Puffs/Inhaler INH 05/01/23 12:14 1 puffs DAILY KEESHA Administration Vitamin D 2,000 units 04/02/23 09:00 04/04/23 08:11 Cholecalciferol 1,000 Units 25 Mcg Tab PO 05/02/23 08:59 2,000 units QAM KEESHA Administration
--- NOTE | 2023-04-04 13:58 | XCELERA ---
[id number] [id number]
[2023-04-04] MEDS: ASPIRIN 81 MG ECTAB PO SCH (21:27)
[2023-04-04] MEDS: traZODone HCL 50 MG TAB PO SCH (21:28)
[2023-04-04] MEDS: PRAMIPEXOLE DIHYDROCHLO 0.5 MG TAB PO SCH (21:29)
[2023-04-04] MEDS: MONTELUKAST SODIUM 10 MG TABLET PO SCH (21:30)
[2023-04-04] MEDS: ATORVASTATIN 40 MG TAB PO SCH (21:31)
[2023-04-04] MEDS: lamoTRIgine 100 MG TAB PO SCH (21:32)
[2023-04-04] MEDS: TRAVOPROST Z 0.004% OPH SOLN 2.5 ML BTL OP SCH (21:34)
--- NOTE | 2023-04-04 21:42 | Hospitalist Progress Note ---
Date of Service April 04, 2023 Assessment & Plan (1) Bacteremia: Plan: Streptococcal sepsis - 03/31 BC 2/ bottles GPC in chains, strep positive piece Suspect pulmonary source. No infected appearing skin wounds/cellulitis. Patient has a history of a recent cat bite to her left hand which was treated cellulitis, on evaluation this is not warm, tender and is without purulence or erythema. Appears well-healed and well treated since her course of antibiotics in January Surveillance cultures ordered, continue Rocephin. awaiting full characterization -ID consulted: continue current antibiotics. repeat antibiotics are negative (2) Acute exacerbation of chronic obstructive airways disease: Plan: Acute on chronic COPD, chronic respiratory failure with home oxygen requirement of 3 to 4 L HS With new hypoxia, and diffuse severe wheezing on exam Patient's not tolerated Advair in the past, Incruse added and also Breo Continue methylprednisolone 40 mg IV twice daily, wean based on clinical progression (3) Atrial fibrillation: Plan: Paroxysmal atrial fibrillation EKG on admission normal sinus rhythm nonspecific ST change without territorial ischemia, chest pain or A-fib on admit Continue Eliquis Continue diltiazem Continue digoxin, level pending (4) CKD (chronic kidney disease) stage 3, GFR 30-59 ml/min: Plan: Creatinine 0.62 on admission, GFR improved approximately 80 Trend daily (5) Anxiety disorder: Plan: Continue lamotrigine, escitalopram (6) Hypomagnesemia: Plan: Repleted, trended (7) Nonobstructive atherosclerosis of coronary artery: Plan: Patient denies history of [place], obstructive CAD, and denies history of heart failure. She has no orthopnea. No chest pain on admission or preceding admission. (8) UTI (urinary tract infection): Plan: urine cultures growing Enterroccocus and Citrobacter layne sensisitive continue Ceftriaxone Plan DVT prophylaxis: DOAC Disposition: PCU due to history of A-fib RVR exacerbations while on steroids and concurrent hypomagnesemia CODE STATUS: DNR/DNI Diet: Heart healthy, soft bite sized Admission and Anticipated Discharge Date Admission Date: April 01, 2023 Subjective Patient reports no new symptoms. She staes she is not back to her baseline but is breathing better. Review of Systems Review of Systems: All systems reviewed & are unremarkable except as noted in HPI & below Physical Exam Physical Exam: The patient is awake, alert and oriented 3, well developed and well nourished, normocephalic and atraumatic, lying in bed and in no acute distress. HEENT--PERRL, EOMI, mucous membranes and oropharynx mildly dry Neck--supple. No JVD. No bruits. Thyroid normal, trachea midline, no adenopathy. Heart--normal S1 and S2. No murmurs, rubs or gallops. Lungs--improved breath sounds, no wheezing. Abdomen--normal bowel sounds and soft. Mild epigastric and left sided abdominal pain Extremities--no cyanosis or clubbing. No edema. Dermatologic--normal skin turgor, normal color, no abnormal lymph nodes, no rash. Neurologic--cranial nerves II through XII grossly intact. Rheumatologic--normal range of motion. Psychiatric--normal affect. Results & Data Results & Data Vital Signs (Past 12 Hours) Vital Signs Temp Pulse Pulse Resp BP Pulse Ox O2 Del Method 04/04/23 19:57 55 L 04/04/23 19:30 77 18 92 Room Air 04/04/23 19:00 36.5 C 71 16 148/75 H 95 Nasal Cannula 04/04/23 15:46 36.8 C 63 19 143/74 H 94 Nasal Cannula 04/04/23 14:50 78 12 88 L Room Air 04/04/23 14:35 57 L 04/04/23 11:36 36.9 C 61 21 172/77 H 93 Room Air 04/04/23 10:41 74 16 93 Nasal Cannula O2 Flow Rate FiO2 04/04/23 19:57 04/04/23 19:30 04/04/23 19:00 2 04/04/23 15:46 2 04/04/23 14:50 21 04/04/23 14:35 04/04/23 11:36 04/04/23 10:41 1.5 PG Care Time/CCT Total # of Minutes Spent Total Time Spent with Patient: Total time spent is greater than 50% in coordination of care (as documented) at patient's floor/unit and/or counseling patient: Coding Level of Care Code 18043 SUB INP/OBS CARE 2/35MIN Diagnoses Bacteremia R78.81 Acute exacerbation of chronic obstructive airways disease J44.1 Paroxysmal atrial fibrillation I48.0 Atrial fibrillation type: paroxysmal CKD (chronic kidney disease) stage 3, GFR 30-59 ml/min N18.3 Anxiety disorder F41.9 Hypomagnesemia E83.42 Nonobstructive atherosclerosis of coronary artery I25.10 UTI (urinary tract infection) N39.0 (3) Atrial fibrillation Atrial fibrillation type: paroxysmal Qualified Code(s): I48.0 - Paroxysmal atrial fibrillation
[2023-04-05] MEDS: ALBUT/IPRATROP 3MG/0.5MG NEB 3 ML VIAL NEB SCH ×6 (02:19→22:56)
[2023-04-05] MEDS: AMPHETAMINE ASP/SULF/DEXTRAMPH 10 MG TAB PO SCH ×2 (07:52→14:00)
[2023-04-05] MEDS: CALCIUM 600MG + VIT D 400 IU TAB PO SCH ×2 (07:53→20:50)
[2023-04-05] MEDS: LORATADINE 10 MG TAB PO SCH (07:53)
[2023-04-05] MEDS: CYANOCOBALAMIN (B-12) 2,500 MCG TABLET PO SCH (07:53)
[2023-04-05] MEDS: ESCITALOPRAM OXALATE 10 MG TAB PO SCH (07:53)
[2023-04-05] MEDS: GABAPENTIN 400 MG CAP PO SCH ×2 (07:53→20:52)
[2023-04-05] MEDS: OXYBUTYNIN CHLORIDE XL 5 MG TABCR PO SCH (07:53)
[2023-04-05] MEDS: dilTIAZem HCL 240 MG CAPCR PO SCH (07:53)
[2023-04-05 07:54] LABS: Calcium 10.8 mg/dl (8.6-10.3); Hematocrit (blood only) 42.8 % (37.0-47.0); Hemoglobin 14.7 g/dl (12.0-16.0); Mean Corpuscular Hemoglobin 29.3 pg (25.0-34.0); Mean Corpuscular Hgb Conc 34.3 g/dL (32.0-36.0); Mean Corpuscular Volume 85.4 fL (80.0-100.0); Mean Platelet Volume 10.2 fL (9.4-12.4); Platelet Count 298 K/uL (130-400); Potassium 4.6 mmol/L (3.5-5.1); RDW Coefficient of Variation 14.3 % (11.5-14.5); RDW Standard Deviation 44.5 fL (36.4-46.3); Red Blood Count 5.01 M/uL (4.20-5.40); White Blood Count 16.22 K/ul (4.8-10.8)
[2023-04-05] MEDS: FLUTICASONE/VILANTEROL 100/25MCG 14 PUFFS/INHALER INH SCH (07:54)
[2023-04-05] MEDS: APIXABAN 5 MG TABLET PO SCH ×2 (07:54→20:55)
[2023-04-05] MEDS: CHOLECALCIFEROL 1,000 UNITS 25 MCG TAB PO SCH (07:54)
[2023-04-05] MEDS: ASCORBIC ACID 500 MG TAB PO SCH (07:54)
[2023-04-05] MEDS: TIMOLOL MALEATE 0.5% OP SOLN 5 ML BTL OP SCH ×2 (07:55→20:48)
[2023-04-05] MEDS: NICOTINE 14 MG/24 HR PATCH TD SCH (07:55)
[2023-04-05] MEDS: BRIMONIDINE TARTRATE 0.2% 5ML OP SCH ×2 (07:56→20:48)
[2023-04-05] MEDS: DORZOLAMIDE HCL 2% OPH SOLN 10 ML BTL OPL SCH ×2 (07:56→20:48)
[2023-04-05] MEDS: UMECLIDINIUM BROMIDE 62.5MCG/BLISTER 7 PUFFS/INHALER INH SCH (07:56)
[2023-04-05] MEDS: DIGOXIN 0.125 MG TAB PO SCH (07:57)
[2023-04-05 08:00] LABS: BUN Creatinine Ratio 38.8 (10-20); Creatinine Clr Calc Pharmacy 52.3 ml/min; Est GFR (Non-African American) 68.2 ml/min
[2023-04-05] MEDS: guaiFENesin 600 MG TABCR PO PRN ×2 (08:00→20:49)
[2023-04-05] MEDS: PANTOprazole 40 MG TAB PO SCH (08:00)
[2023-04-05] MEDS: BENZONATATE 100 MG CAPSULE PO PRN ×2 (08:08→22:06)
[2023-04-05] MEDS ORDERED: methylPREDNISolone 40 MG in SYRINGE 0 ML IV SCH (09:00)
[2023-04-05] MEDS: cefTRIAXone SODIUM 2,000 MG in DEXTROSE 5 % MINI-B 50 ML IV SCH (11:29)
[2023-04-05] MEDS ORDERED: COUGH DROP (SUGAR FREE) LOZ 24 LOZ/1 BOX BUCCAL ONE (14:01)
[2023-04-05] MEDS: TRAVOPROST Z 0.004% OPH SOLN 2.5 ML BTL OP SCH (20:48)
[2023-04-05] MEDS: ATORVASTATIN 40 MG TAB PO SCH (20:49)
[2023-04-05] MEDS: ASPIRIN 81 MG ECTAB PO SCH (20:49)
[2023-04-05] MEDS: traZODone HCL 50 MG TAB PO SCH (20:50)
[2023-04-05] MEDS: lamoTRIgine 100 MG TAB PO SCH (20:51)
[2023-04-05] MEDS: PRAMIPEXOLE DIHYDROCHLO 0.5 MG TAB PO SCH (20:52)
[2023-04-05] MEDS: MONTELUKAST SODIUM 10 MG TABLET PO SCH (20:52)
--- NOTE | 2023-04-05 22:11 | Hospitalist Progress Note ---
Date of Service April 05, 2023 Assessment & Plan (1) Bacteremia: Plan: Streptococcal sepsis - 03/31 BC 2/ bottles GPC in chains, strep positive piece Suspect pulmonary source. No infected appearing skin wounds/cellulitis. Patient has a history of a recent cat bite to her left hand which was treated cellulitis, on evaluation this is not warm, tender and is without purulence or erythema. Appears well-healed and well treated since her course of antibiotics in January Surveillance cultures ordered, continue Rocephin. awaiting full characterization -ID consulted: continue current antibiotics. repeat antibiotics are negative Cultures are still preliminary negative. SHould be finalized on 04/06 (2) Acute exacerbation of chronic obstructive airways disease: Plan: Acute on chronic COPD, chronic respiratory failure with home oxygen requirement of 3 to 4 L HS With new hypoxia, and diffuse severe wheezing on exam Patient's not tolerated Advair in the past, Incruse added and also Breo Continue methylprednisolone 40 mg IV now daily (3) Atrial fibrillation: Plan: Paroxysmal atrial fibrillation EKG on admission normal sinus rhythm nonspecific ST change without territorial ischemia, chest pain or A-fib on admit Continue Eliquis Continue diltiazem Continue digoxin, level pending (4) CKD (chronic kidney disease) stage 3, GFR 30-59 ml/min: Plan: Creatinine 0.62 on admission, GFR improved approximately 80 Trend daily (5) Anxiety disorder: Plan: Continue lamotrigine, escitalopram (6) Hypomagnesemia: Plan: Repleted, trended (7) Nonobstructive atherosclerosis of coronary artery: Plan: Patient denies history of [place], obstructive CAD, and denies history of heart failure. She has no orthopnea. No chest pain on admission or preceding admission. (8) UTI (urinary tract infection): Plan: urine cultures growing Enterroccocus and Citrobacter layne sensisitive continue Ceftriaxone Plan DVT prophylaxis: DOAC Disposition: PCU due to history of A-fib RVR exacerbations while on steroids and concurrent hypomagnesemia CODE STATUS: DNR/DNI Diet: Heart healthy, soft bite sized Admission and Anticipated Discharge Date Admission Date: April 01, 2023 Subjective 82 yo female reports no new symptoms. Review of Systems Review of Systems: All systems reviewed & are unremarkable except as noted in HPI & below Physical Exam Physical Exam: The patient is awake, alert and oriented 3, well developed and well nourished, normocephalic and atraumatic, lying in bed and in no acute distress. HEENT--PERRL, EOMI, mucous membranes and oropharynx mildly dry Neck--supple. No JVD. No bruits. Thyroid normal, trachea midline, no adenopathy. Heart--normal S1 and S2. No murmurs, rubs or gallops. Lungs--wheezing heard Abdomen--normal bowel sounds and soft. Mild epigastric and left sided abdominal pain Extremities--no cyanosis or clubbing. No edema. Dermatologic--normal skin turgor, normal color, no abnormal lymph nodes, no rash. Neurologic--cranial nerves II through XII grossly intact. Rheumatologic--normal range of motion. Psychiatric--normal affect. Results & Data Results & Data Vital Signs (Past 12 Hours) Vital Signs Temp Pulse Pulse Resp BP Pulse Ox O2 Del Method 04/05/23 19:33 71 18 93 Room Air 04/05/23 19:00 36.6 C 70 18 157/70 H 91 Room Air 04/05/23 16:09 68 04/05/23 15:47 80 18 94 Nasal Cannula 04/05/23 14:51 36.7 C 70 18 140/77 95 Room Air 04/05/23 11:26 36.8 C 70 18 152/79 H 91 Room Air 04/05/23 11:07 81 16 91 Room Air O2 Flow Rate 04/05/23 19:33 04/05/23 19:00 04/05/23 16:09 04/05/23 15:47 2 04/05/23 14:51 04/05/23 11:26 04/05/23 11:07 PG Care Time/CCT Total # of Minutes Spent Total Time Spent with Patient: Total time spent is greater than 50% in coordination of care (as documented) at patient's floor/unit and/or counseling patient: Coding Level of Care Code 27068 SUB INP/OBS CARE 2/35MIN Diagnoses Bacteremia R78.81 Acute exacerbation of chronic obstructive airways disease J44.1 Paroxysmal atrial fibrillation I48.0 Atrial fibrillation type: paroxysmal CKD (chronic kidney disease) stage 3, GFR 30-59 ml/min N18.3 Anxiety disorder F41.9 Hypomagnesemia E83.42 Nonobstructive atherosclerosis of coronary artery I25.10 UTI (urinary tract infection) N39.0 (3) Atrial fibrillation Atrial fibrillation type: paroxysmal Qualified Code(s): I48.0 - Paroxysmal atrial fibrillation
[2023-04-06] MEDS: ALBUT/IPRATROP 3MG/0.5MG NEB 3 ML VIAL NEB SCH ×6 (03:47→22:10)
[2023-04-06 06:32] LABS: Hematocrit (blood only) 48.2 % (37.0-47.0); Hemoglobin 15.5 g/dl (12.0-16.0); Mean Corpuscular Hemoglobin 28.3 pg (25.0-34.0); Mean Corpuscular Hgb Conc 32.2 g/dL (32.0-36.0); Mean Platelet Volume 9.8 fL (9.4-12.4); Platelet Count 313 K/uL (130-400); RDW Coefficient of Variation 14.3 % (11.5-14.5); RDW Standard Deviation 45.9 fL (36.4-46.3); Red Blood Count 5.48 M/uL (4.20-5.40); White Blood Count 20.12 K/ul (4.8-10.8)
[2023-04-06 06:44] LABS: BUN Creatinine Ratio 45.3 (10-20); Calcium 10.6 mg/dl (8.6-10.3); Creatinine Clr Calc Pharmacy 56.2 ml/min; Est GFR (African American) 85.4 ml/min; Est GFR (Non-African American) 73.7 ml/min; Potassium 4.7 mmol/L (3.5-5.1)
[2023-04-06] MEDS: AMPHETAMINE ASP/SULF/DEXTRAMPH 10 MG TAB PO SCH ×2 (09:55→14:34)
[2023-04-06] MEDS: ASCORBIC ACID 500 MG TAB PO SCH (09:56)
[2023-04-06] MEDS: BRIMONIDINE TARTRATE 0.2% 5ML OP SCH ×2 (09:56→19:25)
[2023-04-06] MEDS: APIXABAN 5 MG TABLET PO SCH ×2 (09:56→19:31)
[2023-04-06] MEDS: DIGOXIN 0.125 MG TAB PO SCH (09:57)
[2023-04-06] MEDS: CALCIUM 600MG + VIT D 400 IU TAB PO SCH ×2 (09:57→19:31)
[2023-04-06] MEDS: CHOLECALCIFEROL 1,000 UNITS 25 MCG TAB PO SCH (09:57)
[2023-04-06] MEDS: CYANOCOBALAMIN (B-12) 2,500 MCG TABLET PO SCH (09:57)
[2023-04-06] MEDS: DORZOLAMIDE HCL 2% OPH SOLN 10 ML BTL OPL SCH ×2 (09:58→19:24)
[2023-04-06] MEDS: dilTIAZem HCL 240 MG CAPCR PO SCH (09:58)
[2023-04-06] MEDS: FLUTICASONE/VILANTEROL 100/25MCG 14 PUFFS/INHALER INH SCH (09:59)
[2023-04-06] MEDS: ESCITALOPRAM OXALATE 10 MG TAB PO SCH (09:59)
[2023-04-06] MEDS: GABAPENTIN 400 MG CAP PO SCH ×2 (10:00→19:31)
[2023-04-06] MEDS: NICOTINE 14 MG/24 HR PATCH TD SCH (10:00)
[2023-04-06] MEDS: PANTOprazole 40 MG TAB PO SCH (10:00)
[2023-04-06] MEDS: LORATADINE 10 MG TAB PO SCH (10:00)
[2023-04-06] MEDS: OXYBUTYNIN CHLORIDE XL 5 MG TABCR PO SCH (10:00)
[2023-04-06] MEDS: predniSONE 20 MG TAB PO SCH (10:01)
[2023-04-06] MEDS: TIMOLOL MALEATE 0.5% OP SOLN 5 ML BTL OP SCH ×2 (10:01→19:25)
[2023-04-06] MEDS: UMECLIDINIUM BROMIDE 62.5MCG/BLISTER 7 PUFFS/INHALER INH SCH (10:01)
[2023-04-06] MEDS: guaiFENesin 600 MG TABCR PO PRN ×2 (10:03→19:31)
[2023-04-06] MEDS: cefTRIAXone SODIUM 2,000 MG in DEXTROSE 5 % MINI-B 50 ML IV SCH (10:28)
--- NOTE | 2023-04-06 16:37 | Hospitalist Progress Note ---
Date of Service April 06, 2023 Assessment & Plan (1) Bacteremia: Plan: Streptococcal sepsis - 03/31 BC 2/ bottles GPC in chains, strep positive piece Suspect pulmonary source. No infected appearing skin wounds/cellulitis. Patient has a history of a recent cat bite to her left hand which was treated cellulitis, on evaluation this is not warm, tender and is without purulence or erythema. Appears well-healed and well treated since her course of antibiotics in January Surveillance cultures ordered, continue Rocephin. awaiting full characterization -ID consulted: continue current antibiotics. repeat culture are finalized and negative will complete 14 days of antibiotics last dose will be 04/14. ordered U/S guided peripheral line. (2) Acute exacerbation of chronic obstructive airways disease: Plan: Acute on chronic COPD, chronic respiratory failure with home oxygen requirement of 3 to 4 L HS With new hypoxia, and diffuse severe wheezing on exam Patient's not tolerated Advair in the past, Incruse added and also Breo Continue methylprednisolone 40 mg IV now daily (3) Atrial fibrillation: Plan: Paroxysmal atrial fibrillation EKG on admission normal sinus rhythm nonspecific ST change without territorial ischemia, chest pain or A-fib on admit Continue Eliquis Continue diltiazem Continue digoxin, level pending (4) CKD (chronic kidney disease) stage 3, GFR 30-59 ml/min: Plan: Creatinine 0.62 on admission, GFR improved approximately 80 Trend daily (5) Anxiety disorder: Plan: Continue lamotrigine, escitalopram (6) Hypomagnesemia: Plan: Repleted, trended (7) Nonobstructive atherosclerosis of coronary artery: Plan: Patient denies history of [place], obstructive CAD, and denies history of heart failure. She has no orthopnea. No chest pain on admission or preceding admission. (8) UTI (urinary tract infection): Plan: urine cultures growing Enterroccocus and Citrobacter layne sensisitive continue Ceftriaxone Plan DVT prophylaxis: DOAC Disposition: PCU due to history of A-fib RVR exacerbations while on steroids and concurrent hypomagnesemia CODE STATUS: DNR/DNI Diet: Heart healthy, soft bite sized Admission and Anticipated Discharge Date Admission Date: April 01, 2023 Subjective Patient reports no new symptoms. Patient's main complain is her cough. Review of Systems Review of Systems: All systems reviewed & are unremarkable except as noted in HPI & below Physical Exam Physical Exam: The patient is awake, alert and oriented 3, well developed and well nourished, normocephalic and atraumatic, lying in bed and in no acute distress. HEENT--PERRL, EOMI, mucous membranes and oropharynx mildly dry Neck--supple. No JVD. No bruits. Thyroid normal, trachea midline, no adenopathy. Heart--normal S1 and S2. No murmurs, rubs or gallops. Lungs--wheezing heard Abdomen--normal bowel sounds and soft. Mild epigastric and left sided abdominal pain Extremities--no cyanosis or clubbing. No edema. Dermatologic--normal skin turgor, normal color, no abnormal lymph nodes, no sravan h. Neurologic--cranial nerves II through XII grossly intact. Rheumatologic--normal range of motion. Psychiatric--normal affect. Results & Data Results & Data Vital Signs (Past 12 Hours) Vital Signs Temp Pulse Pulse Resp BP Pulse Ox O2 Del Method 04/06/23 15:06 106 H 18 94 Room Air 04/06/23 14:58 36.5 C 63 18 135/70 94 Room Air 04/06/23 11:19 36.7 C 89 18 120/76 93 Room Air 04/06/23 11:05 73 18 91 Room Air 04/06/23 09:57 79 04/06/23 08:00 Nasal Cannula 04/06/23 07:23 53 L 16 94 Nasal Cannula 04/06/23 07:09 36.5 C 53 L 18 122/64 95 Nasal Cannula O2 Flow Rate 04/06/23 15:06 04/06/23 14:58 04/06/23 11:19 04/06/23 11:05 04/06/23 09:57 04/06/23 08:00 2 04/06/23 07:23 2 04/06/23 07:09 2 PG Care Time/CCT Total # of Minutes Spent Total Time Spent with Patient: Total time spent is greater than 50% in coordination of care (as documented) at patient's floor/unit and/or counseling patient: Coding Level of Care Code 00434 SUB INP/OBS CARE 2/35MIN Diagnoses Bacteremia R78.81 Acute exacerbation of chronic obstructive airways disease J44.1 Paroxysmal atrial fibrillation I48.0 Atrial fibrillation type: paroxysmal CKD (chronic kidney disease) stage 3, GFR 30-59 ml/min N18.3 Anxiety disorder F41.9 Hypomagnesemia E83.42 Nonobstructive atherosclerosis of coronary artery I25.10 UTI (urinary tract infection) N39.0 (3) Atrial fibrillation Atrial fibrillation type: paroxysmal Qualified Code(s): I48.0 - Paroxysmal atrial fibrillation
[2023-04-06] MEDS: TRAVOPROST Z 0.004% OPH SOLN 2.5 ML BTL OP SCH (19:24)
[2023-04-06] MEDS: lamoTRIgine 100 MG TAB PO SCH (19:28)
[2023-04-06] MEDS: traZODone HCL 50 MG TAB PO SCH (19:29)
[2023-04-06] MEDS: MONTELUKAST SODIUM 10 MG TABLET PO SCH (19:30)
[2023-04-06] MEDS: ASPIRIN 81 MG ECTAB PO SCH (19:30)
[2023-04-06] MEDS: ATORVASTATIN 40 MG TAB PO SCH (19:32)
[2023-04-06] MEDS: PRAMIPEXOLE DIHYDROCHLO 0.5 MG TAB PO SCH (19:33)
[2023-04-07] MEDS: ALBUT/IPRATROP 3MG/0.5MG NEB 3 ML VIAL NEB SCH ×4 (02:33→14:49)
[2023-04-07 08:12] LABS: Hematocrit (blood only) 45.8 % (37.0-47.0); Hemoglobin 15.2 g/dl (12.0-16.0); Mean Corpuscular Hemoglobin 28.8 pg (25.0-34.0); Mean Corpuscular Hgb Conc 33.2 g/dL (32.0-36.0); Mean Corpuscular Volume 86.7 fL (80.0-100.0); Platelet Count 304 K/uL (130-400); RDW Coefficient of Variation 14.5 % (11.5-14.5); Red Blood Count 5.28 M/uL (4.20-5.40); White Blood Count 20.63 K/ul (4.8-10.8)
[2023-04-07 08:50] LABS: Anion Gap 4 (3-11); Blood Urea Nitrogen 29 mg/dl (6-23); C Reactive Protein < 0.50 mg/dl (0-0.5); Calcium 10.5 mg/dl (8.6-10.3); Carbon Dioxide 37 mmol/L (21-32); Chloride 99 mmol/L (98-107); Creatinine Clr Calc Pharmacy 66.7 ml/min; Est GFR (African American) 96.1 ml/min; Est GFR (Non-African American) 82.9 ml/min; Glucose 98 mg/dl (70-99(Fasting)); Potassium 4.4 mmol/L (3.5-5.1); Sodium 140 mmol/L (136-145)
[2023-04-07] MEDS: BRIMONIDINE TARTRATE 0.2% 5ML OP SCH (08:53)
[2023-04-07] MEDS: DORZOLAMIDE HCL 2% OPH SOLN 10 ML BTL OPL SCH (08:53)
[2023-04-07] MEDS: CALCIUM 600MG + VIT D 400 IU TAB PO SCH (08:54)
[2023-04-07] MEDS: TIMOLOL MALEATE 0.5% OP SOLN 5 ML BTL OP SCH (08:54)
[2023-04-07] MEDS: guaiFENesin 600 MG TABCR PO PRN (08:54)
[2023-04-07] MEDS: GABAPENTIN 400 MG CAP PO SCH (08:54)
[2023-04-07] MEDS: APIXABAN 5 MG TABLET PO SCH (08:54)
[2023-04-07] MEDS: ASCORBIC ACID 500 MG TAB PO SCH (08:54)
[2023-04-07] MEDS: CYANOCOBALAMIN (B-12) 2,500 MCG TABLET PO SCH (08:55)
[2023-04-07] MEDS: ESCITALOPRAM OXALATE 10 MG TAB PO SCH (08:55)
[2023-04-07] MEDS: CHOLECALCIFEROL 1,000 UNITS 25 MCG TAB PO SCH (08:55)
[2023-04-07] MEDS: NICOTINE 14 MG/24 HR PATCH TD SCH (08:55)
[2023-04-07] MEDS: predniSONE 20 MG TAB PO SCH (08:55)
[2023-04-07] MEDS: OXYBUTYNIN CHLORIDE XL 5 MG TABCR PO SCH (08:55)
[2023-04-07] MEDS: LORATADINE 10 MG TAB PO SCH (08:55)
[2023-04-07] MEDS: PANTOprazole 40 MG TAB PO SCH (08:55)
[2023-04-07] MEDS: dilTIAZem HCL 240 MG CAPCR PO SCH (08:55)
[2023-04-07] MEDS: DIGOXIN 0.125 MG TAB PO SCH (08:56)
[2023-04-07] MEDS: UMECLIDINIUM BROMIDE 62.5MCG/BLISTER 7 PUFFS/INHALER INH SCH (08:56)
[2023-04-07] MEDS: FLUTICASONE/VILANTEROL 100/25MCG 14 PUFFS/INHALER INH SCH (08:56)
[2023-04-07] MEDS: AMPHETAMINE ASP/SULF/DEXTRAMPH 10 MG TAB PO SCH ×2 (09:05→13:56)
[2023-04-07] MEDS: cefTRIAXone SODIUM 2,000 MG in DEXTROSE 5 % MINI-B 50 ML IV SCH (11:39)
[2023-04-07 16:07] VITALS: BP 100/62; PULSE 77; RESP 18; TEMP 97.9; O2SAT 91
--- NOTE | 2023-04-07 19:46 | Infectious Disease Progress Nt ---
Date of Service April 07, 2023 Assessment & Plan (1) Bacteremia: (2) Acute exacerbation of chronic obstructive airways disease: Plan Jigna Alves is an 82 year old woman with history of COPD (3L nocturnal O2), hearing loss, pulmonary nodules, CAD, recent ED presentation for dyspnea felt to be COPD exacerbation, who presents to [facility] ED on 04/01 due to BCx from 03/31 growing 2/ Strep salivarius, 1/4 CoNS, and 1/4 gamma Strep. ID is consulted for Strep bacteremia. Source of Streptococcus bacteremia is unknown at this time. She reports a cat bite 3 wks ago, but has no evidence of wounds, rash, ulcers, or SSTI at the site. She denies GI symptoms. She has multiple prosthetics and hardware- BL TKA, R hip replacement, BL ankle hardware, and spinal hardware, She has no signs of effusion or local infection at these sites. She has bacteriuria without symptoms . Strep salivarius is usually found in the mouth and is part or oral alexus. It has been associated with meningitis and endocarditis. She is edentulous and denies mouth pain or ulcers. 04/04 TTE without evidence of endocarditis. Given her presence of hardware and given the uncertainty of the source, would favor treating for a 2-week course with IV ceftriaxone. Of note, patient with increased leukocytosis but also on steroid burstwould monitor closely for new s/sx. If fevers or clinical worsening would repeat BCx. Would continue to monitor closely for new clinical s/sx particularly given the presence of hardware. ID Problem list: #Acute hypoxic respiratory failure #Polymicrobial Bacteremia ( Strep Salivarius, CONS, Gamma strep) #Sp BL TKR, BL Ankle hardware, R hip replacement, spinal hardware #Asymptomatic Bacteriuria #PCN allergy Recommendations. - Continue ceftriaxone 2g IV Q24H to complete a 2-week course (04/01/23- 04/14/23) - Lab monitoring while on abx: weekly CBC w/ diff, CMP - Ensure follow-up with PCP and with ID if able - If fevers or clinical worsening would repeat BCx Thank you for letting ID participate in the care of this patient. ID will sign off at this time. If questions, please contact the [facility] call center at [phone]. Nel Henson MD, MHS Infectious Diseases [facility]/ID Connect ID Connect direct line: [phone] Admission and Anticipated Discharge Date Admission Date: April 01, 2023 Subjective This patient recommendation is based on a telemedicine consult request which was completed asynchronously through chart review and information provided by the primary physician. The patient was not seen or examined today. The evaluation is consultative in nature and all patient care and treatment decisions can either be accepted or rejected by the patient's primary hospital-based treating physician using their own independent medical judgment for their patient. Time Spent Reviewing Chart: 31+ minutes - Afebrile Results & Data Vital Signs (Past 12 Hours) Vital Signs Temp Pulse Pulse Resp BP Pulse Ox O2 Del Method 04/07/23 16:01 36.6 C 77 18 100/62 91 Room Air 04/07/23 15:29 36.3 C L 81 20 129/71 90 04/07/23 15:00 78 04/07/23 14:50 81 20 90 Room Air 04/07/23 11:38 36.3 C L 80 18 129/71 94 Room Air 04/07/23 10:54 82 22 93 Room Air 04/07/23 08:56 84 04/07/23 08:00 Room Air 04/07/23 08:00 67 Diagnostic Findings Diagnostics 04/04 TTE with mild-mod AR, mild MR, trace AK, no evidence of endocarditis noted Micro 04/01 UCx: E. faecalis, Citrobacter freundii 04/01 BCx x2 NGTD BC 03/31 2/4 strep salivarius (S PCN, Ceftriax, R eryth) , 1/4 CoNS, 1/4 gamma strep, not enterococcus Abx Ceftriaxone 04/01- ongoing
--- NOTE | 2023-04-11 09:32 | Discharge Summary ---
Date of Service April 07, 2023 Admission HPI Per Admitting Provider Jigna Alves is a 82-year-old female with a past medical history of tobacco abuse, COPD, hearing loss, pulmonary nodules, CAD, who presented to the ER 03/31 for COPD exacerbation and was not found to have sepsis, pneumonia, or hypoxia and as such was discharged home on doxycycline/prednisone. After returning home she had a positive blood culture which has returned positive for strep and was recalled to the ER for further care. Per ER: Cough, cold, congestion sx for several days. SEpsis workup at the time wnl, d/campos home and subsequently 06/22+ for GPC chains PCR positive for strep. Jigna is seen at the bedside. She reports that she had COVID in February and gradually recovered from this but was otherwise feeling well until 5 days ago. 5 days ago she developed an increased cough, scattered wheezing, and a change in her sputum production from normally light and clear to yellow. She does not normally need oxygen during the day and uses between 2 to 4 L at night, she has needed daytime oxygen while at home. She was seen in the ER yesterday and discharged home for an acute COPD exacerbation treated with doxycycline due to azithromycin allergy; she feels she was feeling a little bit better at home but still tired when she was recalled for positive blood cultures. She Dors that she has chronically had intermittent night sweats with no recent change. She did have a cat bite to her left hand in January which had extensive imaging and antibiotic treatment, she reports this has improved and she has no warmth/erythema/tenderness at the site. She denies other skin wounds or infection. She denies abdominal tenderness. No nausea/vomiting/diarrhea. She does not have a headache or photo/phono sensitivity. She has not noticed any weakness or sensory change. Her cough has been increased and with yellow sputum as noted. She has been taking all of her medications, and in particular has missed no doses of her blood thinner. She was prescribed prednisone 50 mg which she feels is high for her, and notes that she has been prescribed 20 mg in the past. She does not follow with a talent development consultant, she reports that she uses an albuterol inhaler as needed and then her nebulizer at home as a last effort prior to coming into the hospital but these do not seem to be working well for her in the last 5 days. She does not use a daily inhaler, notes that she had chest pain and worsening of her A-fib with Advair in the past. Endorses ongoing tobacco use about 4 cigarettes/day. At most was 1/2 to 1 pack a day smoker for most of her life. Denies alcohol use. Denies recreational substance and vape use. DNR/DNI, reviewed about Principal Diagnosis bacteremia Discharge Exam The patient is awake, alert and oriented 3, well developed and well nourished, normocephalic and atraumatic, lying in bed and in no acute distress. HEENT--PERRL, EOMI Neck--supple. No JVD. No bruits. Thyroid normal, trachea midline, no adenopathy. Heart--normal S1 and S2. No murmurs, rubs or gallops. Lungs--wheezing heard Abdomen--normal bowel sounds and soft. Mild epigastric and left sided abdominal pain Extremities--no cyanosis or clubbing. No edema. Dermatologic--normal skin turgor, normal color, no abnormal lymph nodes, no rash. Neurologic--cranial nerves II through XII grossly intact. Rheumatologic--normal range of motion. Psychiatric--normal affect. Discharge Data Allergies Allergy/AdvReac Type Severity Reaction Status Date / Time procaine Allergy Severe novacaine Verified 04/01/23 12:15 - anaphylaxis, mouth swelling, dyspnea azithromycin Allergy Intermediate throat Verified 04/01/23 12:15 burned, lost weight fluticasone Allergy Intermediate chest pain Verified 04/01/23 12:15 (from Advair) salmeterol Allergy Intermediate chest pain Verified 04/01/23 12:15 (from Advair) chocolate flavor Allergy Mild rash Verified 04/01/23 12:15 Penicillins Allergy Unknown per Verified 04/01/23 12:15 allergy test (tolerated rocephin in the past) zolpidem AdvReac Intermediate sleep Verified 04/01/23 12:15 walking moxifloxacin AdvReac Mild N/V Verified 04/01/23 12:15 NSAIDS (Non-Steroidal AdvReac Mild advised to Verified 04/01/23 12:15 Anti-Inflamma avoid d/t ulcer hx Consultations 04/01/23 11:37 ED Decision to Admit Stat 04/02/23 08:25 Consult Infectious Diseases Routine Hospital Course (1) Bacteremia: Streptococcal sepsis - 11/13 BC / bottles GPC in chains, strep positive piece Suspect pulmonary source. No infected appearing skin wounds/cellulitis. Patient has a history of a recent cat bite to her left hand which was treated cellulitis, on evaluation this is not warm, tender and is without purulence or erythema. Appears well-healed and well treated since her course of antibiotics in January Surveillance cultures ordered, continue Rocephin. awaiting full characterization -ID consulted: continue current antibiotics. repeat culture are finalized and negative will complete 14 days of antibiotics last dose will be 04/14. ordered U/S guided peripheral line. Patient will be discharged on Rocephin. (2) Acute exacerbation of chronic obstructive airways disease: Acute on chronic COPD, chronic respiratory failure with home oxygen requirement of 3 to 4 L HS With new hypoxia, and diffuse severe wheezing on exam Patient's not tolerated Advair in the past, Incruse added and also Breo transitioned from IV corticoteroid to PO prednisone. WIll be discharge on a quick prendisone taper. (3) Atrial fibrillation: Paroxysmal atrial fibrillation EKG on admission normal sinus rhythm nonspecific ST change without territorial ischemia, chest pain or A-fib on admit Continue Eliquis Continue diltiazem Continue digoxin (4) CKD (chronic kidney disease) stage 3, GFR 30-59 ml/min: Creatinine 0.62 on admission, GFR improved approximately 80 Trend daily (5) Anxiety disorder: Continue lamotrigine, escitalopram (6) Hypomagnesemia: Repleted, (7) Nonobstructive atherosclerosis of coronary artery: Patient denies history of [place], obstructive CAD, and denies history of heart failure. She has no orthopnea. No chest pain on admission or preceding admission. (8) UTI (urinary tract infection): urine cultures growing Enterroccocus and Citrobacter layne sensisitive continue Ceftriaxone Total Time Total Time Spent Total Time Spent (In Minutes): 32 Discharge Plan Discharge Items Patient Disposition: Home - Home Health Services Reason For Visit: BACTERMIA, ACUTE COPD Discharge Diagnosis: Bacteremia Activity: Resume your previous activity Non-emergency contact: Primary Care Provider Call non-emergency contact if: you have any medication questions Follow-up/Referrals: Faiza Costa MD [Primary Care Provider] - Diet: Regular Addtl Attending Provider Instructions: recommend followup with PCP in 1-2 weeks. Continue with IV antibiotics until finished Last dose 04/14 Pending Studies at Discharge: No Stand-Alone Forms: My [facility], Smoking Cessation Medications and DC Order Prescriptions: New prednisone 10 mg tablet 10 mg PO DIRECTED Qty: 12 0RF Rx Instructions: see taper instructions Take 3 tablets once a day for 2 days, 2 tablets once a day for 2 days 1 tablet once a day for 2 days. ceftriaxone 2 gram recon soln 2 g IV DAILY Qty: 7 0RF Continued escitalopram oxalate [Lexapro] 5 mg tablet 5 mg PO QAM Qty: 90 1RF Rx Instructions: TOTAL DOSE 25 MG--TAKES WITH 20 MG TAB. calcium carbonate-vitamin D3 [Calcium 600 + D(3)] 600 mg(1,500mg) -400 unit tablet 1 tab PO BID Qty: 60 5RF escitalopram oxalate [Lexapro] 20 mg tablet 20 mg PO DAILY Qty: 30 5RF Rx Instructions: TOTAL DOSE 25 MG--TAKES WITH 5 MG TAB. trazodone 150 mg tablet 225 mg PO HS Qty: 45 5RF Rx Instructions: TAKE 1.5 TABLETS loratadine 10 mg tablet 10 mg PO DAILY Qty: 30 5RF cyanocobalamin (vitamin B-12) 2,500 mcg tablet 2,500 mcg PO DAILY Qty: 30 5RF zinc gluconate 50 mg tablet 50 mg PO QAM Qty: 30 5RF aspirin 81 mg tablet,delayed release (DR/EC) 81 mg PO HS Qty: 30 5RF cholecalciferol (vitamin D3) 50 mcg (2,000 unit) tablet 2,000 unit PO QAM Qty: 30 5RF multivitamin Tablet 1 tab PO QAM Qty: 30 5RF (DME) Oxygen Home Liters Per Minute See Rx Instructions .Route Qty: 1 0RF Rx Instructions: 2L/min O2 for use when sleeping. Pt is mouth breather, needs appropriate mask (DME) Scooter Misc See Rx Instructions .Route Qty: 1 0RF Rx Instructions: As directed. oxybutynin chloride 5 mg tablet extended release 24hr 5 mg PO DAILY Qty: 90 3RF digoxin 125 mcg (0.125 mg) tablet 125 mcg PO QAM Qty: 30 5RF montelukast [Singulair] 10 mg tablet 10 mg PO HS Qty: 90 1RF atorvastatin 40 mg tablet 40 mg PO HS Qty: 90 1RF diltiazem HCl [DILT-XR] 240 mg capsule,ext.rel 24h degradable 240 mg PO QAM Qty: 30 5RF gabapentin 400 mg capsule 400 mg PO BID Qty: 60 5RF Rx Instructions: TAKE ONE CAPSULE BY MOUTH TWICE DAILY Eliquis 5 mg tablet 5 mg PO BID Qty: 60 5RF Rx Instructions: TAKE 1 TABLET BY MOUTH IN THE MORNING AND AT BEDTIME ipratropium-albuterol 0.5 mg-3 mg(2.5 mg base)/3 mL solution for nebulization 3 ml NEB Q6H PRN (Reason: shortness of breath or wheezing) Qty: 90 1RF Rx Instructions: Shortness of breath or wheezing J45.909 pantoprazole 40 mg tablet,delayed release (DR/EC) 40 mg PO QAM Qty: 30 5RF Rx Instructions: TAKE ONE TABLET BY MOUTH EVERY MORNING lamotrigine 150 mg tablet 150 mg PO HS Qty: 30 5RF Rx Instructions: TAKE 1 TABLET BY MOUTH AT BEDTIME ([facility] [place]) nebulizers [facility] [place] [facility] See Rx Instructions .ROUTE .MEDSUPPLY Qty: 1 0RF Rx Instructions: New nebulizer ([facility]) nebulizer accessories Kit See Rx Instructions .ROUTE .MEDSUPPLY Qty: 2 0RF Rx Instructions: All tubing, connectors, and accessory pieces pramipexole [Mirapex] 0.5 mg tablet 0.5 mg PO HS travoprost 0.004 % drops 1 drp ophthalmic (eye) QPM brimonidine-timolol 0.2-0.5 % drops 1 drp ophthalmic (eye) BID dextroamphetamine-amphetamine [Adderall] 10 mg tablet 10 mg PO .COMPLEX Rx Instructions: 10 mg orally TAKE TWO TABLES IN AM AND ONE IN AFTERNOON; albuterol sulfate [Ventolin HFA] 90 mcg/actuation HFA aerosol inhaler 2 puff Inhalation Q4 PRN (Reason: Shortness Of Breath Or Wheezing) Qty: 3 5RF Metamucil (sugar) Powder 1 tbsp PO DAILY PRN (Reason: Constipation) biotin 10 mg Tablet 10 mg PO DAILY acetaminophen [Tylenol Extra Strength] 500 mg Tablet 1,000 mg PO DIRECTED PRN (Reason: Pain) ascorbic acid (vitamin C) [Vitamin C] 500 mg Tablet 500 mg PO DAILY vitamin E 268 mg (400 unit) Capsule 536 mg PO DAILY dorzolamide 2 % drops 1 drp OPL BID guaifenesin [Mucinex] 600 mg Tablet Extended Release 12hr 600 mg PO Q12H PRN (Reason: Congestion) Held prednisone 10 mg Tablet 10 mg PO DIRECTED Hold Instructions: Resume on 04/14/23. resume after taper Rx Instructions: prn for 12 day coarse No Action fluticasone furoate-vilanterol 100-25 mcg/dose blister with device 1 inh inhalation DAILY Qty: 60 3RF Discharge Orders: Discharge Order (Routine); Ordered 04/07/23 Ordered By: Stef Farnsworth/Other Patient Handouts: Know the Medicines You're Taking Admission Data Admit Date/Time: 04/01/23 11:54 Attending Provider: Stef Fletcher Admit Provider: Yovani Sinha Primary Care Provider: Faiza Costa Other Providers: Yovani Sinha; Joyce West; Ankit De La Rosa; Rachel Awad; Mariluz López; Margy Meza; Leela Jansen; Bhakti Vaughn; Allie Orourke; Asha Hernández; Nel Henson; Agni,Home Care Fax; Yosvany,Fax Other Interventions: Discharge Summary Assessment (RN) Last Done: 04/07/23 15:29 Coding Level of Care Code 40104 INP/OBS DISCH >30 MIN Diagnoses Bacteremia R78.81 Acute exacerbation of chronic obstructive airways disease J44.1 Paroxysmal atrial fibrillation I48.0 Atrial fibrillation type: paroxysmal CKD (chronic kidney disease) stage 3, GFR 30-59 ml/min N18.3 Anxiety disorder F41.9 Hypomagnesemia E83.42 Nonobstructive atherosclerosis of coronary artery I25.10 UTI (urinary tract infection) N39.0
== END 2023-04-07 17:38 | disposition home health service (06) | DRG 871 ==
LOC: ED 09:58 → 2S 11:54 → SUATTDRO 11:54 → 2S 13:59
DX: J44.1 Chronic obstructive pulmonary disease with (acute) exacerbation; F17.210 Nicotine dependence, cigarettes, uncomplicated; N18.30 Chronic kidney disease, stage 3 unspecified; Z98.1 Arthrodesis status; Z88.8 Allergy status to other drugs, medicaments and biological substances; F41.9 Anxiety disorder, unspecified; Z96.641 Presence of right artificial hip joint; N39.0 Urinary tract infection, site not specified; I48.0 Paroxysmal atrial fibrillation; Z88.0 Allergy status to penicillin; R91.1 Solitary pulmonary nodule; Z66 Do not resuscitate; E83.42 Hypomagnesemia; I25.10 Atherosclerotic heart disease of native coronary artery without angina pectoris; J96.21 Acute and chronic respiratory failure with hypoxia; Z88.6 Allergy status to analgesic agent; A40.9 Streptococcal sepsis, unspecified; Z86.16 Personal history of COVID-19; Z88.1 Allergy status to other antibiotic agents

== ENCOUNTER 2024-03-29 09:16 | Inpatient (IN) ==
--- NOTE | 2024-02-24 10:48 | PAT Medication Instructions ---
Medication Instructions Date of Service February 24, 2024 Home Medications Medication Instructions Recorded escitalopram oxalate 5 mg tablet 5 mg PO QAM #90 tabs 03/15/20 (Lexapro) calcium 600 mg (as 1 tab PO BID #60 tabs 04/28/20 carbonate)-vitamin D3 10 mcg (400 unit) tablet (Calcium 600 + D(3)) trazodone 150 mg tablet 225 mg (1.5 x 150 mg) PO HS #45 04/28/20 tabs zinc gluconate 50 mg tablet 50 mg PO QAM #30 tabs 07/20/20 aspirin 81 mg tablet,delayed 81 mg PO HS #30 tabs 08/18/20 release cholecalciferol (vitamin D3) 50 2,000 unit PO QAM #30 tabs 09/13/20 mcg (2,000 unit) tablet multivitamin 1 tab PO QAM #30 tabs 09/13/20 Oxygen Home #1 ea 03/27/21 Scooter #1 ea 04/03/21 nebulizer accessories #2 ea 03/31/23 nebulizers #1 ea 03/31/23 pantoprazole 40 mg tablet,delayed 40 mg PO QAM #90 tabs 10/14/23 release lamotrigine 150 mg tablet 150 mg PO HS #30 tabs 10/15/23 diaper,brief,adult,disposable #6 ea 10/21/23 (Select Disposable Briefs) pramipexole 0.5 mg tablet 0.5 mg PO HS #90 tabs 11/07/23 atorvastatin 40 mg tablet (Lipitor) 40 mg PO HS #90 tabs 12/04/23 digoxin 125 mcg (0.125 mg) tablet 125 mcg PO QAM #90 tabs 12/04/23 montelukast 10 mg tablet 10 mg PO HS #90 tabs 12/04/23 (Singulair) oxybutynin chloride 5 mg 5 mg PO QAM #90 tabs 12/04/23 tablet,extended release 24 hr brimonidine 0.2 %-timolol 0.5 % 1 drp ophthalmic (eye) BID #15 mL 01/02/24 eye drops (Combigan) apixaban 5 mg tablet (Eliquis) 5 mg PO BID #60 tabs 01/21/24 gabapentin 400 mg capsule 400 mg PO BID #60 caps 01/30/24 psyllium seed (sugar) oral powder (Metamucil (sugar) oral powder) 1 tbsp PO DAILY PRN Constipation escitalopram oxalate 5 mg tablet (Lexapro) 5 mg PO QAM calcium 600 mg (as carbonate)-vitamin D3 10 mcg (400 unit) tablet (Calcium 600 + D(3)) 1 tab PO BID trazodone 150 mg tablet 225 mg (1.5 x 150 mg) PO HS zinc gluconate 50 mg tablet 50 mg PO QAM aspirin 81 mg tablet,delayed release 81 mg PO HS cholecalciferol (vitamin D3) 50 mcg (2,000 unit) tablet 2,000 unit PO QAM multivitamin 1 tab PO QAM travoprost 0.004 % eye drops 1 drp ophthalmic (eye) QPM dextroamphetamine-amphetamine 10 mg tablet (Adderall) 10 - 20 mg PO BID acetaminophen 500 mg tablet (Tylenol Extra Strength) 1,000 mg PO DIRECTED PRN Pain ascorbic acid (vitamin C) 500 mg tablet (Vitamin C) 500 mg PO QAM biotin 10 mg tablet 10 mg PO QAM guaifenesin 600 mg tablet, extended release 12 hr (Mucinex) 600 mg PO UD PRN Congestion cyanocobalamin (vitamin B-12) 2,500 mcg tablet 2,500 mcg PO QAM escitalopram oxalate 20 mg tablet (Lexapro) 20 mg PO QAM vitamin E 800 unit capsule 800 unit PO QAM pantoprazole 40 mg tablet,delayed release 40 mg PO QAM lamotrigine 150 mg tablet 150 mg PO HS pramipexole 0.5 mg tablet 0.5 mg PO HS atorvastatin 40 mg tablet (Lipitor) 40 mg PO HS digoxin 125 mcg (0.125 mg) tablet 125 mcg PO QAM montelukast 10 mg tablet (Singulair) 10 mg PO HS oxybutynin chloride 5 mg tablet,extended release 24 hr 5 mg PO QAM brimonidine 0.2 %-timolol 0.5 % eye drops (Combigan) 1 drp ophthalmic (eye) BID apixaban 5 mg tablet (Eliquis) 5 mg PO BID gabapentin 400 mg capsule 400 mg PO BID buspirone 5 mg tablet 5 mg PO QAM Anxiety albuterol sulfate 2.5 mg/3 mL (0.083 %) solution for nebulization 0 mg inhalation UD PRN asthma attacks albuterol sulfate 90 mcg/actuation aerosol inhaler (Ventolin HFA) 2 puff inhalation UD PRN asthma diclofenac sodium 1 % topical gel 0 g topical UD PRN Pain diltiazem HCl 300 mg capsule,24 hr,extended release 300 mg PO QAM loratadine 10 mg tablet 10 mg PO QAM ASK your surgeon for instructions diclofenac sodium 1 % topical gel 0 g topical UD PRN Pain ASK your prescriber and surgeon aspirin 81 mg tablet,delayed release 81 mg PO HS apixaban 5 mg tablet (Eliquis) 5 mg PO BID STOP taking 2 weeks before surgery biotin 10 mg tablet 10 mg PO QAM vitamin E 800 unit capsule 800 unit PO QAM DO NOT take the morning of surgery psyllium seed (sugar) oral powder (Metamucil (sugar) oral powder) 1 tbsp PO KULDEEP Y PRN Constipation calcium 600 mg (as carbonate)-vitamin D3 10 mcg (400 unit) tablet (Calcium 600 + D(3)) 1 tab PO BID zinc gluconate 50 mg tablet 50 mg PO QAM cholecalciferol (vitamin D3) 50 mcg (2,000 unit) tablet 2,000 unit PO QAM multivitamin 1 tab PO QAM dextroamphetamine-amphetamine 10 mg tablet (Adderall) 10 - 20 mg PO BID ascorbic acid (vitamin C) 500 mg tablet (Vitamin C) 500 mg PO QAM guaifenesin 600 mg tablet, extended release 12 hr (Mucinex) 600 mg PO UD PRN Congestion cyanocobalamin (vitamin B-12) 2,500 mcg tablet 2,500 mcg PO QAM oxybutynin chloride 5 mg tablet,extended release 24 hr 5 mg PO QAM loratadine 10 mg tablet 10 mg PO QAM Take morning of surgery With a small sip of water, OTHERWISE NOTHING TO EAT OR DRINK AFTER MIDNIGHT: escitalopram oxalate 5 mg tablet (Lexapro) 5 mg PO QAM acetaminophen 500 mg tablet (Tylenol Extra Strength) 1,000 mg PO DIRECTED PRN Pain (if needed) escitalopram oxalate 20 mg tablet (Lexapro) 20 mg PO QAM pantoprazole 40 mg tablet,delayed release 40 mg PO QAM digoxin 125 mcg (0.125 mg) tablet 125 mcg PO QAM brimonidine 0.2 %-timolol 0.5 % eye drops (Combigan) 1 drp ophthalmic (eye) BID gabapentin 400 mg capsule 400 mg PO BID buspirone 5 mg tablet 5 mg PO QAM Anxiety albuterol sulfate 2.5 mg/3 mL (0.083 %) solution for nebulization 0 mg inhalation UD PRN asthma attacks (if needed) albuterol sulfate 90 mcg/actuation aerosol inhaler (Ventolin HFA) 2 puff inhalation UD PRN asthma (use if needed; please bring with you to hospital day of surgery if possible) diltiazem HCl 300 mg capsule,24 hr,extended release 300 mg PO QAM Take evening before surgery psyllium seed (sugar) oral powder (Metamucil (sugar) oral powder) 1 tbsp PO DAILY PRN Constipation (if needed) calcium 600 mg (as carbonate)-vitamin D3 10 mcg (400 unit) tablet (Calcium 600 + D(3)) 1 tab PO BID trazodone 150 mg tablet 225 mg (1.5 x 150 mg) PO HS dextroamphetamine-amphetamine 10 mg tablet (Adderall) 10 - 20 mg PO BID acetaminophen 500 mg tablet (Tylenol Extra Strength) 1,000 mg PO DIRECTED PRN Pain (if needed) guaifenesin 600 mg tablet, extended release 12 hr (Mucinex) 600 mg PO UD PRN Congestion (if needed) lamotrigine 150 mg tablet 150 mg PO HS pramipexole 0.5 mg tablet 0.5 mg PO HS atorvastatin 40 mg tablet (Lipitor) 40 mg PO HS montelukast 10 mg tablet (Singulair) 10 mg PO HS brimonidine 0.2 %-timolol 0.5 % eye drops (Combigan) 1 drp ophthalmic (eye) BID gabapentin 400 mg capsule 400 mg PO BID albuterol sulfate 2.5 mg/3 mL (0.083 %) solution for nebulization 0 mg inhalation UD PRN asthma attacks (if needed) albuterol sulfate 90 mcg/actuation aerosol inhaler (Ventolin HFA) 2 puff inhalation UD PRN asthma (if needed) Other Notes If you have any questions please call us at [phone] or [phone] or [phone] or [phone]
--- NOTE | 2024-03-02 11:03 | Anesthesiology Consultation ---
Date of Service March 02, 2024 Assessment & Plan (1) Encounter for pre-operative examination: Plan - awaiting [place] PCP and cardiology clearances, workload notes sent. - procaine and novocaine allergies listed as anaphylaxis. Case discussed in detail with Dr. Bah who advised patient to have amide testing prior to surgery. Patient made aware and is agreeable, message sent to [place] allergy clinic. Surgeon's office made aware. - ER 02/29/24 [facility]: "...sensation of palpitations, she took her blood pressure and it was "high". Patient states she also "just did not feel well"...Lab work shows a leukocytosis of 15.62 (patient admits to being on an outpatient course of steroids at this time for asthma) hemoglobin is normal, platelet count is normal, CMP does not show any evidence of any critical findings, magnesium is slightly below normal limits at 1.6 which was ordered for IV repletion. Troponin is negative. TSH is within normal limits. Digoxin level is also within normal limits. COVID-19 testing is negative, chest x-ray per my interpretation shows mild pulmonary vascular congestion but otherwise no evidence of focal infiltrate...patient states she is feeling improved, she tells me that she thinks she might of had a mild anxiety attack earlier this morning...blood pressure is improved to 133/83 on my reassessment, she remains saturating well on room air...rate controlled atrial fibrillation on the monitor of which she has a known history and she is on anticoagulation. Patient states that this time she does feel well for discharge..." - rheumatoid arthritis: to anesthesiologist discretion if cervical spine x-ray is needed DOS. Outpatient joint assessment: Patient is currently scheduled for inpatient pathway. If re-evaluated and patient/surgeon requests outpatient pathway, patient is not candidate for outpatient joint program from anesthesia standpoint. Chart Review Chart Review: Pending: Refer to Additional Notes / Consult section and Patient seen in Pre Admission Testing Teaching & Discussion Pre-Anesthesia Teaching/Discussion Notes: Instructed NPO after midnight before surgery, except medications with 15 cc of water. Medication instructions provided according to the PAT guidelines. History Surgery Operation Date: 03/29/24 11:00 Proposed Procedures p Right Reverse Total Shoulder Arthroplasty - Barrera Dennis DO Height/Weight Height: 5 ft 5 in Weight: 75.7 kg Allergies Allergy/AdvReac Type Severity Reaction Status Date / Time azithromycin Allergy Unknown throat Verified 02/26/24 09:02 burned, lost weight chocolate flavor Allergy Unknown hx rash Verified 02/26/24 09:02 fluticasone Allergy Unknown chest pain Verified 02/26/24 09:02 (from Advair) Penicillins Allergy Unknown per Verified 02/26/24 09:02 allergy test procaine Allergy Unknown novacaine Verified 02/26/24 09:02 - anaphylaxis, mouth swelling, dyspnea salmeterol Allergy Unknown chest pain Verified 02/26/24 09:02 (from Advair) moxifloxacin AdvReac Unknown N/V Verified 02/26/24 09:02 NSAIDS (Non-Steroidal AdvReac Unknown advised to Verified 02/26/24 09:02 Anti-Inflamma avoid d/t ulcer hx zolpidem AdvReac Unknown sleep Verified 02/26/24 09:02 walking Medications Home Medications Medication Instructions Recorded Confirmed Last Taken psyllium seed (sugar) oral powder 1 tbsp PO DAILY PRN Constipation 03/03/20 02/26/24 03/15/20 09:00 (Metamucil (sugar) oral powder) escitalopram oxalate 5 mg tablet 5 mg PO QAM #90 tabs 03/15/20 02/26/24 05/12/23 08:30 (Lexapro) calcium 600 mg (as 1 tab PO BID #60 tabs 04/28/20 02/26/24 05/12/23 21:00 carbonate)-vitamin D3 10 mcg (400 unit) tablet (Calcium 600 + D(3)) trazodone 150 mg tablet 225 mg (1.5 x 150 mg) PO HS #45 04/28/20 02/26/24 05/12/23 21:00 tabs zinc gluconate 50 mg tablet 50 mg PO QAM #30 tabs 07/20/20 02/26/24 05/12/23 08:30 aspirin 81 mg tablet,delayed 81 mg PO HS #30 tabs 08/18/20 02/26/24 05/12/23 21:00 release cholecalciferol (vitamin D3) 50 2,000 unit PO QAM #30 tabs 09/13/20 02/26/24 05/12/23 08:30 mcg (2,000 unit) tablet multivitamin 1 tab PO QAM #30 tabs 09/13/20 02/26/24 05/12/23 08:30 Oxygen Home #1 ea 03/27/21 02/26/24 Unknown Scooter #1 ea 04/03/21 02/26/24 Unknown travoprost 0.004 % eye drops 1 drp ophthalmic (eye) QPM 05/03/21 02/26/24 05/12/23 21:00 dextroamphetamine-amphetamine 10 10 - 20 mg PO BID 03/07/22 02/26/24 05/12/23 14:00 mg tablet (Adderall) acetaminophen 500 mg tablet 1,000 mg PO DIRECTED PRN Pain 11/12/22 02/26/24 2 Days Ago (Tylenol Extra Strength) ~05/11/23 ascorbic acid (vitamin C) 500 mg 500 mg PO QAM 11/12/22 02/26/24 05/12/23 08:30 tablet (Vitamin C) biotin 10 mg tablet 10 mg PO QAM 11/12/22 02/26/24 05/12/23 08:30 guaifenesin 600 mg tablet, 600 mg PO UD PRN Congestion 11/12/22 02/26/24 2 Months Ago extended release 12 hr (Mucinex) ~03/13/23 nebulizer accessories #2 ea 03/31/23 02/26/24 Unknown nebulizers #1 ea 03/31/23 02/26/24 Unknown cyanocobalamin (vitamin B-12) 2,500 mcg PO QAM 05/06/23 02/26/24 05/12/23 08:30 2,500 mcg tablet escitalopram oxalate 20 mg tablet 20 mg PO QAM 05/06/23 02/26/24 05/12/23 08:30 (Lexapro) vitamin E 800 unit capsule 800 unit PO QAM 05/06/23 02/26/24 05/12/23 08:30 diaper,brief,adult,disposable #6 ea 10/21/23 02/26/24 Unknown (Select Disposable Briefs) pramipexole 0.5 mg tablet 0.5 mg PO HS #90 tabs 11/07/23 02/26/24 Unknown atorvastatin 40 mg tablet (Lipitor) 40 mg PO HS #90 tabs 12/04/23 02/26/24 Unknown digoxin 125 mcg (0.125 mg) tablet 125 mcg PO QAM #90 tabs 12/04/23 02/26/24 Unknown montelukast 10 mg tablet 10 mg PO HS #90 tabs 12/04/23 02/26/24 Unknown (Singulair) oxybutynin chloride 5 mg 5 mg PO QAM #90 tabs 12/04/23 02/26/24 Unknown tablet,extended release 24 hr brimonidine 0.2 %-timolol 0.5 % 1 drp ophthalmic (eye) BID #15 mL 01/02/24 02/26/24 Unknown eye drops (Combigan) apixaban 5 mg tablet (Eliquis) 5 mg PO BID #60 tabs 01/21/24 02/26/24 Unknown gabapentin 400 mg capsule 400 mg PO BID #60 caps 01/30/24 02/26/24 Unknown buspirone 5 mg tablet 5 mg PO QAM Anxiety 02/18/24 02/26/24 Unknown albuterol sulfate 2.5 mg/3 mL 0 mg inhalation UD PRN asthma 02/20/24 02/26/24 Unknown (0.083 %) solution for nebulization attacks albuterol sulfate 90 mcg/actuation 2 puff inhalation UD PRN asthma 02/20/24 02/26/24 Unknown aerosol inhaler (Ventolin HFA) diclofenac sodium 1 % topical gel 0 g topical UD PRN Pain 02/20/24 02/26/24 Unknown diltiazem HCl 300 mg capsule,24 300 mg PO QAM 02/20/24 02/26/24 Unknown hr,extended release loratadine 10 mg tablet 10 mg PO QAM 02/20/24 02/26/24 Unknown methylprednisolone 4 mg tablets in 4 mg PO DAILY #21 ea 02/26/24 02/26/24 Unknown a dose pack (Medrol (Graeme)) lamotrigine 150 mg tablet 150 mg PO HS #30 tabs 03/02/24 Unknown pantoprazole 40 mg tablet,delayed 40 mg PO QAM #90 tabs 03/02/24 Unknown release Past Medical History Medical History (Updated 03/02/24 @ 13:09 by Maggy Inman PA-C) Acid reflux controlled, stable per pt ADHD Anxiety Aortic regurgitation mild to moderate on 03/2023 echo Arthritis of neck mild limitation rom. 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 resolved History of gastric ulcer History of sepsis (2022) History of skin cancer removed History of transient cerebral ischemia first entered into chart 12/23/18; pt denies hx mini stroke/TIA or stroke. Hyperlipidemia Incontinence of urine Left ventricular systolic dysfunction EF 45-50% on 03/2023 echo; > 55% 12/2023 stress echo Lung nodule not that pt aware of. 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 Nerve pain of head. Gabapentin for. Nocturnal hypoxia o2 3L HS. On home oxygen therapy 3-4L N/C at hs Osteoarthritis bone density is good per pt Pre-diabetes denies Raynauds disease Rectocele Restless leg syndrome Rheumatoid arthritis (02/25/13) per pt dx at age with RA. Right lower quadrant abdominal pain evaluated [place] end of or 02/2024 - pt reports suspected muscular thing, using voltaren gel with some improvement. Tremor hands Patient denies h/o seizures, heart attack, DM, blood clots/DVTs or blood transfusions. Exercise / Class Metabolic Activity III < 4 Walking/Shop/Light housework (shortness of breath with exertion since weather change-notes improvement since ER visit, denies chest discomfort) Past Family History Family History Family/Other Coronary heart disease Heart disease Cancer Hypertension Brother Prostate cancer Benign familial tremor Father Benign familial tremor Mother Malignant melanoma Aunt Rheumatoid arthritis Other No family history of adverse response to anesthesia Denies family history of Ovarian cancer Myocardial infarction Breast cancer Colorectal cancer Past Surgical History Surgical History (Updated 03/02/24 @ 12:58 by Maggy Inman PA-C) H/O elbow surgery bilateral H/O thumb surgery right x2 H/O toe surgery left foot History of appendectomy History of colonoscopy History of esophagogastroduodenoscopy (EGD) History of foot surgery left removal of bone spur History of foot surgery toes on left foot - pt confirms a total of 4 left foot surgeries. History of lumbar fusion x2 most recent 2018 History of open reduction and internal fixation (ORIF) procedure right ankle History of surgical removal of skin lesion History of tonsillectomy History of total hip arthroplasty right hip History of total knee replacement bilateral; right TKA: 05/22/17: SAB x1 at L3-L4 + PNB at [facility] S/P ankle arthrodesis right ankle S/P foot surgery, left left ankle/foot reconstruction (2019) S/P foot surgery, left LEFT FOOT LITTLE TOE AMPUTATED 2022. S/P hardware removal right ankle S/P laparotomy removed adhesions to relieve bowel strangulation S/P AMANDA (total abdominal hysterectomy) Past Anesthesia History No Hx of Anesthesia Complications and No Family Hx of Anesthesia Complications History of PONV No Hx of PONV and No Hx of Motion Sickness Social History Smoking Status: Former smoker tobacco type: cigarettes Smoking cigarettes per day: 2 Do You Dip or Chew Tobacco: No Smoking End Date: approx 5 yr Hx Alcohol Use: Yes Alcohol type: beer alcohol intake frequency: holidays/special occasions only Hx Substance Use: No substance use type: does not use Review of Systems Patient denies chest pain, snoring, witnessed apneas, fever, chills, or palpitations today. Physical Exam Vital Signs Vitals BP 158/80 P 89 TEMP 98.1 SP02 94% on RA RESP 18 Physical Patient resting comfortably in chair in no acute distress, alert and oriented, responding appropriately throughout visit Full cervical extension range of motion without pain TMD 3.5 finger breadths Mallampati Score 3 Dentition: edentulous, full upper and lower dentures Lungs: normal respiratory effort. Good air movement, clear throughout to auscultation, no adventitious breath sounds Cardiac: irregularly irregular rhythm, no murmurs, gallops or rubs Carotid arteries: negative bruit bilat Lab Results Anesthesia Preop Results Results Anesthesia Widget: WBC 13.70 K/ul (4.8-10.8) H 03/02/24 Hgb 13.4 g/dl (12.0-16.0) 03/02/24 Hct 41.2 % (37.0-47.0) 03/02/24 Plt 326 K/uL (130-400) 03/02/24 Na 142 mmol/L (136-145) 02/29/24 K 3.9 mmol/L (3.5-5.1) 02/29/24 Cl 102 mmol/L (98-107) 02/29/24 CO2 34 mmol/L (21-32) H 02/29/24 BUN 25 mg/dl (6-23) H 02/29/24 Creat 0.52 mg/dl (0.6-1.2) L 02/29/24 Glucose Level 124 mg/dl (70-99(Fasting)) H 02/29/24 PT 11.3 Seconds (9.0-12.0) 03/02/24 PTT 25 Seconds (21-31) 03/02/24 INR 1.0 (0.9-1.1) 03/02/24 TSH 1.586 uIu/ml (0.300-4.500) 02/29/24 Urine Color Yellow 02/18/24 Urine Appearance Clear (Clear) 02/18/24 Urine pH 6.5 (4.5-7.5) 02/18/24 Urine Specific [place] > 1.045 (1.000-1.030) H 02/18/24 Urine Protein Negative (Negative) 02/18/24 Urine Glucose (UA) Negative (Negative) 02/18/24 Urine Ketones Negative (Negative) 02/18/24 Urine Blood Negative (Negative) 02/18/24 Urine Nitrite Negative (Negative) 02/18/24 Urine Bilirubin Negative (Negative) 02/18/24 Urine Urobilinogen Negative (Negative) 02/18/24 Urine Leukocyte Esterase Negative (Negative) 02/18/24 Urine WBC (Auto) 21-50 /hpf (0-5) H 02/05/24 Urine RBC (Auto) 0-2 /hpf (0-2) 02/05/24 Urine Hyaline Casts (Auto) 0-2 /lpf (0-2) 02/05/24 Urine Epithelial Cells (Auto) 11-20 /hpf (0-2) H 02/05/24 Urine Bacteria (Auto) 4+ (None Seen) H 02/05/24 COVID-19 PCR NEGATIVE (Negative) 02/29/24 Blood Type B Positive 03/02/24 Antibody Screen NEGATIVE 03/02/24 Testing Electrocardiogram Date: 03/02/24 Afib, rate [address] depression in anterolateral leads Diffuse nonspecific T wave abnormality No significant change vs 02/29/24 EKG Chest X-Ray Date: 03/02/24 Cardiomegaly with no active disease in the chest. Echocardiogram Date: 04/04/23 EF 45-50% Mild global hypokinesis of the LV Mild cLVH Grade I diastolic dysfunction Mild to moderate aortic regurgitation Mild mitral regurgitation Stress Test Date: 01/01/24 Negative dobutamine stress echo for inducible ischemia at [facility] 110% EF 60-65% Mild cLVH Mildly dilated LA Mild mitral regurgitation Mild aortic valve insufficiency Mild tricuspid regurgitation Other Testing Abdomen pelvis CT 02/18/24 1. No acute infectious or inflammatory findings are identified in the abdomen or pelvis. 2. Cardiomegaly. 3. Additional findings as above.
--- NOTE | 2024-03-25 12:18 | History & Physical Report ---
Date of Service March 25, 2024 Assessment & Plan (1) Rotator cuff arthropathy of right shoulder: We will proceed with a right reverse shoulder arthroplasty. Postoperatively she will be placed in a sling and kept overnight in the hospital for postop medical management. She plans to have the hospital set up home health for discharge. History of Present Illness Chief Complaint: Cuff tear arthropathy of the right shoulder. Primary Care Provider: Faiza Costa MD Jigna is a pleasant 83-year-old female who has been dealing with chronic increasing right shoulder pain. It has been going on for years, but for the past 2 months it has been really debilitating. She cannot do anything away from her body or up overhead. She has been seeing my partner, Dr. Brown. He has given her a couple of injections. Unfortunately, the injections are no longer helping. 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 After failed conservative treatment, she has elected to proceed with a right reverse shoulder arthroplasty. Allergies Allergy/AdvReac Type Severity Reaction Status Date / Time azithromycin Allergy Unknown throat Verified 03/08/24 13:00 burned, lost weight chocolate flavor Allergy Unknown hx rash Verified 03/08/24 13:00 fluticasone Allergy Unknown chest pain Verified 03/08/24 13:00 (from [facility]) Penicillins Allergy Unknown per Verified 03/08/24 13:00 allergy test procaine Allergy Unknown novacaine Verified 03/08/24 13:00 - anaphylaxis, mouth swelling, dyspnea salmeterol Allergy Unknown chest pain Verified 03/08/24 13:00 (from [facility]) moxifloxacin AdvReac Unknown N/V Verified 03/08/24 13:00 NSAIDS (Non-Steroidal AdvReac Unknown advised to Verified 03/08/24 13:00 Anti-Inflamma avoid d/t ulcer hx zolpidem AdvReac Unknown sleep Verified 03/08/24 13:00 walking Home Medications Medication Instructions Recorded Confirmed Type psyllium seed (sugar) oral powder 1 tbsp PO DAILY PRN Constipation 03/03/20 03/08/24 History (Metamucil (sugar) oral powder) escitalopram oxalate 5 mg tablet 5 mg PO QAM #90 tabs 03/15/20 03/08/24 Rx (Lexapro) calcium 600 mg (as 1 tab PO BID #60 tabs 12/11/20 10/21/24 Rx carbonate)-vitamin D3 10 mcg (400 unit) tablet (Calcium 600 + D(3)) trazodone 150 mg tablet 225 mg (1.5 x 150 mg) PO HS #45 04/28/20 03/08/24 Rx tabs zinc gluconate 50 mg tablet 50 mg PO QAM #30 tabs 07/20/20 03/08/24 Rx aspirin 81 mg tablet,delayed 81 mg PO HS #30 tabs 08/18/20 03/08/24 Rx release cholecalciferol (vitamin D3) 50 2,000 unit PO QAM #30 tabs 09/13/20 03/08/24 Rx mcg (2,000 unit) tablet multivitamin 1 tab PO QAM #30 tabs 09/13/20 03/08/24 Rx Oxygen Home #1 ea 03/27/21 03/08/24 Rx Scooter #1 ea 04/03/21 03/08/24 Rx travoprost 0.004 % eye drops 1 drp ophthalmic (eye) QPM 05/03/21 03/08/24 History dextroamphetamine-amphetamine 10 10 - 20 mg PO BID 03/07/22 03/08/24 History mg tablet (Adderall) acetaminophen 500 mg tablet 1,000 mg PO DIRECTED PRN Pain 11/12/22 03/08/24 History (Tylenol Extra Strength) ascorbic acid (vitamin C) 500 mg 500 mg PO QAM 11/12/22 03/08/24 History tablet (Vitamin C) biotin 10 mg tablet 10 mg PO QAM 11/12/22 03/08/24 History guaifenesin 600 mg tablet, 600 mg PO UD PRN Congestion 11/12/22 03/08/24 History extended release 12 hr (Mucinex) nebulizer accessories #2 ea 03/31/23 03/08/24 Rx nebulizers #1 ea 03/31/23 03/08/24 Rx cyanocobalamin (vitamin B-12) 2,500 mcg PO QAM 05/06/23 03/08/24 History 2,500 mcg tablet escitalopram oxalate 20 mg tablet 20 mg PO QAM 05/06/23 03/08/24 History (Lexapro) vitamin E 800 unit capsule 800 unit PO QAM 05/06/23 03/08/24 History diaper,brief,adult,disposable #6 ea 10/21/23 03/08/24 Rx (Select Disposable Briefs) pramipexole 0.5 mg tablet 0.5 mg PO HS #90 tabs 11/07/23 03/08/24 Rx atorvastatin 40 mg tablet (Lipitor) 40 mg PO HS #90 tabs 12/04/23 03/08/24 Rx digoxin 125 mcg (0.125 mg) tablet 125 mcg PO QAM #90 tabs 12/04/23 03/08/24 Rx montelukast 10 mg tablet 10 mg PO HS #90 tabs 12/04/23 03/08/24 Rx (Singulair) oxybutynin chloride 5 mg 5 mg PO QAM #90 tabs 12/04/23 03/08/24 Rx tablet,extended release 24 hr brimonidine 0.2 %-timolol 0.5 % 1 drp ophthalmic (eye) BID #15 mL 01/02/24 03/08/24 Rx eye drops (Combigan) apixaban 5 mg tablet (Eliquis) 5 mg PO BID #60 tabs 01/21/24 03/08/24 Rx gabapentin 400 mg capsule 400 mg PO BID #60 caps 01/30/24 03/08/24 Rx buspirone 5 mg tablet 5 mg PO QAM Anxiety 02/18/24 03/08/24 History albuterol sulfate 2.5 mg/3 mL 0 mg inhalation UD PRN asthma 02/20/24 03/08/24 History (0.083 %) solution for nebulization attacks albuterol sulfate 90 mcg/actuation 2 puff inhalation UD PRN asthma 02/20/24 03/08/24 History aerosol inhaler (Ventolin HFA) diclofenac sodium 1 % topical gel 0 g topical UD PRN Pain 02/20/24 03/08/24 History diltiazem HCl 300 mg capsule,24 300 mg PO QAM 02/20/24 03/08/24 History hr,extended release loratadine 10 mg tablet 10 mg PO QAM 02/20/24 03/08/24 History methylprednisolone 4 mg tablets in 4 mg PO DAILY #21 ea 02/26/24 03/08/24 Rx a dose pack (Medrol (Graeme)) lamotrigine 150 mg tablet 150 mg PO HS #30 tabs 03/02/24 03/08/24 Rx pantoprazole 40 mg tablet,delayed 40 mg PO QAM #90 tabs 03/02/24 03/08/24 Rx release magnesium oxide 400 mg PO HS #90 tabs 03/08/24 03/08/24 Rx Past Med/Surg History Problem List Rotator cuff arthropathy of right shoulder Antiplatelet or antithrombotic long-term use Left ventricular systolic dysfunction Mitral regurgitation Aortic regurgitation Abnormal electrocardiogram Right shoulder pain Left wrist sprain Prediabetes Nonobstructive atherosclerosis of coronary artery Rotator cuff tear Subacromial bursitis Glenohumeral arthritis CAD (coronary artery disease) Anticoagulant long-term use SI (sacroiliac) joint dysfunction Nocturnal hypoxia Osteoarthritis of ankle, left CAD (coronary artery disease) Mild- luminal irregularities only on 2003 cardiac cath Esophageal dysphagia Chronic constipation with overflow incontinence ADHD Stable Chronic obstructive pulmonary disease stable Allergic rhinitis (Chronic) Anxiety disorder (Chronic) Well controlled- follows with psych Benign familial tremor (Chronic) Cervicalgia (Chronic) Controlled substance agreement broken (Chronic) Former smoker (Chronic) Fusion of spine, lumbar region (Chronic) Glaucoma (Chronic) Hyperlipidemia (Chronic) Raynaud's disease (Chronic) Rectocele (Chronic) Restless legs syndrome (Chronic) SNHL (sensorineural hearing loss) (Chronic) Solitary pulmonary nodule (Chronic) Urge incontinence of urine (Chronic) Vitamin D deficiency (Chronic) Hypomagnesemia (Chronic) CKD (chronic kidney disease) stage 3, GFR 30-59 ml/min (Chronic) Depression (Chronic) Anemia (Chronic) Asthma (Chronic) Lumbar stenosis with neurogenic claudication (Chronic) Medical History Atrial fibrillation Pre-diabetes denies CKD (chronic kidney disease) pt denies Nocturnal hypoxia o2 3L HS. Mitral regurgitation Left ventricular systolic dysfunction EF 45-50% on 03/2023 echo; > 55% 12/2023 stress echo CAD (coronary artery disease) mild in 2003 per [place] [facility] records Aortic regurgitation mild to moderate on 03/2023 echo Nerve pain of head. Gabapentin for. Lung nodule not that pt aware of. Esophageal dysphagia Asthma COPD (chronic obstructive pulmonary disease) ADHD Anxiety Raynauds disease Acid reflux controlled, stable per pt Tremor hands History of gastric ulcer History of sepsis (2022) History of skin cancer removed Right lower quadrant abdominal pain evaluated mn end of or 02/2024 - pt reports suspected muscular thing, using voltaren gel with some improvement. 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 Arthritis of neck mild limitation rom. Osteoarthritis bone density is good per pt History of anemia History of COVID-19 (~02/2023) fatigue/lethargy for 3 days. resolved Restless leg syndrome On home oxygen therapy 3-4L N/C at hs Esophageal stenosis "twist in esophagus" Incontinence of urine Hearing deficit b/l HERRERA Glaucoma Depression Hyperlipidemia History of transient cerebral ischemia first entered into chart 12/23/18; pt denies hx mini stroke/TIA or stroke. Rheumatoid arthritis (02/25/13) per pt dx at age with RA. Surgical History History of lumbar fusion x2 most recent 2018 History of foot surgery toes on left foot - pt confirms a total of 4 left foot surgeries. History of foot surgery left removal of bone spur S/P foot surgery, left LEFT FOOT LITTLE TOE AMPUTATED 2022. S/P foot surgery, left left ankle/foot reconstruction (2019) History of total hip arthroplasty right hip H/O toe surgery left foot History of total knee replacement bilateral; right TKA: 05/22/17: SAB x1 at L3-L4 + PNB at [facility] S/P hardware removal right ankle S/P laparotomy removed adhesions to relieve bowel strangulation S/P ankle arthrodesis right ankle History of open reduction and internal fixation (ORIF) procedure right ankle H/O elbow surgery bilateral S/P AMANDA (total abdominal hysterectomy) H/O thumb surgery right x2 History of appendectomy History of colonoscopy History of esophagogastroduodenoscopy (EGD) History of surgical removal of skin lesion History of tonsillectomy Family History Family/Other Coronary heart disease Heart disease Cancer Hypertension Brother Prostate cancer Benign familial tremor Father Benign familial tremor Mother Malignant melanoma Aunt Rheumatoid arthritis Other No family history of adverse response to anesthesia Denies family history of Ovarian cancer Myocardial infarction Breast cancer Colorectal cancer Social History (Reviewed 03/25/24 @ 12:17 by CELIA Mckinley Smoking Status: Former smoker Tobacco Type: Cigarettes Age Started Using Tobacco: 19 (intermittently quit throughout the years); Age Quit Using Tobacco: 81; packs per day: 0.1; Cigarettes Per Day: 2; Smoking End Date: approx 5 yr; Second Hand Exposure: No; Do You Dip or Chew Tobacco: No; Hx Alcohol Use: Yes Alcohol type: beer Alcohol Intake Frequency Comment: rarely Hx Substance Use: No Preferred Language: Faroese Communication Ability: Effective Visual Impairment: No Limitations Hearing Ability: Hard of Hearing Hookman Required: No Beliefs That Will Affect Care: None marital status: Current Living Situation: Alone Current Living Situation Comment: halfway apartment/independent 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al status: retired 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 Review of Systems All systems reviewed & are unremarkable except as noted in HPI & below. Physical Exam On physical examination of right shoulder, she has a pseudoparalysis on was secondary to pain. She has weakness throughout. Pain over the glenohumeral joint line.. Constitutional WD/WN, vitals as above Eyes PERRL, conjunctivae normal, anicteric sclerae ENMT external ear and nose normal, oropharynx normal Neck trachea midline, no thyromegaly Respiratory normal respiratory effort Cardiovascular RRR, no murmur, no edema Gastrointestinal (Abdomen) normal bowel sounds, soft, nontender, no hepatosplenomegaly Psychiatric A+Ox3, euthymic affect Results & Data Results & Data Laboratory Results . Diagnostic Findings X-rays of the right shoulder show advanced osteoarthritis with superior migration of the humeral head on the glenoid.. PG Care Time/CCT Total # of Minutes Spent Total Time Spent with Patient: Total time spent is greater than 50% in coordination of care (as documented) at patient's floor/unit and/or counseling patient: Coding Level of Care Code None Diagnoses Rotator cuff arthropathy of right shoulder M12.811
[~2024-03-29 09:16] MED LIST changes: +BUPIVACAINE 0.5 % 5 MG/1 ML PF 10ML VIAL ONE; -LR 15ML/HR IV SCH; -ROPIVACAINE 0.5% 5 MG/ML 30 ML VIAL ONE; -SODIUM CHLORIDE 0.9% INJ 10 ML VIAL ONE; +SODIUM CHLORIDE 0.9% PF INJ 10 ML VIAL ONE; -ceFAZolin 1000MG 1,000 MG/7.5 ML SYR IV SCH
[2024-03-29] MEDS ORDERED: fentaNYL citrate PF 100 MCG/2 ML VIAL ONE (09:17)
[2024-03-29] MEDS ORDERED: ONDANSETRON INJ 2 MG/ML 2 ML VIAL ONE (09:17)
[2024-03-29] MEDS ORDERED: PROPOFOL IV EMULSION 10 MG/ML 20 ML VIAL IV ONE (09:17)
[2024-03-29] MEDS ORDERED: MIDAZOLAM HCL 1 MG/ML 2ML VIAL ONE (09:17)
[2024-03-29] MEDS: LR 15ML/HR IV SCH (10:14)
[2024-03-29] MEDS: ACETAMINOPHEN 500 MG TAB PO SCH (10:15)
[2024-03-29] MEDS: dexAMETHasone**PF** 10 MG/ML VIAL IV SCH (10:15)
[2024-03-29] MEDS: GABAPENTIN 300 MG CAP PO SCH (10:16)
[2024-03-29] MEDS: LR 60ML/HR IV SCH (10:16)
[2024-03-29] MEDS: FAMOTIDINE 20 MG TAB PO SCH (10:16)
--- NOTE | 2024-03-29 10:30 | History & Physical Bridge Note ---
Date of Service March 29, 2024 History & Physical Bridge Note I have examined the patient, reviewed the History & Physical and in the interval since the performance of the History & Physical I have noted the following changes of clinical significance: no changes noted
[2024-03-29] MEDS ORDERED: fentaNYL citrate PF 100 MCG/2 ML VIAL IV PRN (11:21)
[2024-03-29] MEDS ORDERED: ATROPINE SULFATE 0.1 MG/ML 10ML SYR IV PRN (11:21)
[2024-03-29] MEDS: TRANEXAMIC ACID 1,000 MG **IV Pre-op IV SCH (11:21)
[2024-03-29] MEDS ORDERED: ONDANSETRON INJ 2 MG/ML 2 ML VIAL IV PRN ×2 (11:21→12:52)
[2024-03-29] MEDS: ceFAZolin 2000MG 2,000 MG/15 ML SYR IV SCH ×2 (11:33→18:19)
[2024-03-29] MEDS ORDERED: PHENYLEPHRINE 100MCG/ML 5ML SYR ONE (11:48)
[2024-03-29] MEDS ORDERED: ePHEDrine sulfate 50 MG/5 ML SYR ONE ×2 (11:48→11:56)
[2024-03-29] MEDS: ORTHO JOINT ANESTHETIC ONE (12:24)
[2024-03-29] MEDS: ROPIV 0.5% 246mg, Ketorolac 30mg, EPINEPHrine 0.5mg in NSS INFIL SCH (12:24)
--- NOTE | 2024-03-29 12:34 | Operative Report ---
PG Post Operative Report Pre & Post Diagnosis Operation Date: 03/29/24 11:00 Pre-Op Diagnosis: Cuff tear arthropathy of the right shoulder Post-Op Diagnosis: Cuff tear arthropathy of the right shoulder I identified the patient and participated in the time-out.: Yes Procedure Operation Date: 03/29/24 11:00 Actual Procedures p Right Reverse Total Shoulder Arthroplasty(Right) - Barrera Dennis DO Surgeon Barrera Dennis DO Provider Relations Specialist Marissa Burnette PA-C Estimated Blood Loss 150 Findings Consistent with Post-Op Diagnosis Specimens Right humeral head Description of Procedure Implants used: I used a [employer]omet Comprehensive reverse total shoulder arthroplasty system with a size 11 press fit micro humeral stem, a +6 offset humeral tray and a +3 retentive humeral bearing, a 25 mm baseplate with a 6.5 mm central screw and superior and inferior locking screws, and a size 36 mm eccentric glenosphere. Jigna arrived at [facility] for the above procedure. She was seen in the preoperative holding area and the operative extremity was identified and signed. She was given a preoperative antibiotic, TXA, and an interscalene nerve block. She was taken back to the operating room, laid on table in supine position, and put under general anesthesia. She was then put into the beachchair position. The shoulder was then prepped and draped in sterile fashion. A timeout was done and the patient and the operative extremity was properly identified. A deltopectoral approach was used. Dissection was taken down through the fascia and the deltoid was retracted laterally and the conjoined tendon was retracted medially. The anterior shoulder was exposed. The biceps tendon was chronically torn. The subscapularis was then directly released off the lesser tuberosity with a peel technique. The inferior capsule was released and the humeral head was dislocated. A canal finding reamer was sent down the center of the humeral canal. Sequential reaming up to a size 11 reamer was done. Off that reamer, a proximal humeral resection guide was placed. The proximal humerus was resected at 135 of inclination and 25 of retroversion. Osteophytes were then removed and the glenoid was exposed. Time was spent doing a complete capsular and labral release. The glenoid guide was then placed in the inferior aspect of the glenoid. A 3.2 mm Steinmann pin was then placed into the glenoid vault at 10 of inclination. The glenoid baseplate was then reamed. The final size 25 mm baseplate was then impacted in the place. A 6.5 mm central screw was then placed followed by superior and inferior locking screws. A 36 mm eccentric glenosphere was then impacted into place. Surrounding soft tissues were then injected with 100 cc an orthopedic pain control cocktail. The proximal humerus was then exposed. Sequential broaching of the humerus up to a size 11 broach was done. Off that b kay a +6 offset and +3 retentive humeral tray was trialed. The shoulder was then reduced, brought through a full range of motion, and felt to be stable. The shoulder was then dislocated and the broach was removed. The final size 11 micro press-fit humeral stem was then impacted into place. A +3 retentive humeral bearing was then snapped onto a +6 offset humeral tray. The humeral tray was then impacted onto the humeral stem. The shoulder was once again reduced, brought through a full range of motion, and felt to be stable. The subscapularis was chronically torn and unable to be repaired. A dilute betadyne lavage was then done for 3 minutes. The joint was then irrigated with normal saline solution. Hemostasis was obtained. The interval was closed with 2-0 Vicryl suture. The skin was then closed with 2-0 Vicryl and jb. A Silverlon dressing was placed and the arm was rested in a regular arm sling. She was then extubated and transferred to a hospital bed. She taken to the postanesthesia care unit in stable condition. She tolerated the procedure well. Marissa Burnette PA-C, was present for the entire procedure. He was critical for patient positioning, prepping, draping, retraction exposure, wound closure and application of sterile dressing. I attest to the content of the Intraoperative Record and any orders documented therein. Any exceptions are noted below.
[2024-03-29] MEDS: TRANEXAMIC ACID 1,000 MG **IV Intra-op IV SCH (12:36)
[2024-03-29] MEDS ORDERED: NALOXONE HCL 0.4 MG/1 ML VIAL/CARP IV PRN (12:52)
[2024-03-29] MEDS ORDERED: ACETAMINOPHEN 1,000 MG/100 ML VIAL IV PRN (12:52)
[2024-03-29] MEDS ORDERED: METOCLOPRAMIDE HCL INJ 5 MG/ML 2 ML VIAL IV PRN (12:52)
[2024-03-29] MEDS ORDERED: bisacodyL 10 MG SUPP PR PRN (12:52)
[2024-03-29] MEDS ORDERED: HYDROmorphone INJ 0.5 MG/0.5 ML SYR IV PRN (12:52)
[2024-03-29] MEDS ORDERED: ACETAMINOPHEN 500 MG TAB PO PRN (12:56)
[2024-03-29] MEDS ORDERED: guaiFENesin 600 MG TABCR PO PRN (12:56)
--- NOTE | 2024-03-29 13:39 | Anesthesiology Progress Note ---
Date of Service March 29, 2024 Anesthesia Post Procedure Vital Signs Vital Signs: Temp Pulse Resp BP Pulse Ox O2 Del Method O2 Flow Rate 03/29/24 13:25 36.1 C L 68 19 111/66 98 Room Air 03/29/24 13:15 78 19 117/50 L 100 Oxymask 6 03/29/24 13:05 73 15 114/63 100 Oxymask 6 03/29/24 12:58 36.0 C L 90 17 120/64 97 Oxymask 6 03/29/24 09:55 36.9 C 72 20 153/53 H 92 Room Air Transfer of Care Handoff Completed per policy Notes Mental Status: alert / awake / arousable Patient Amnestic to Procedure: Yes Nausea / Vomiting: adequately controlled Pain: adequately controlled Airway Patency, RR, SpO2: stable & adequate BP & HR: stable & adequate Hydration State: stable & adequate Anesthetic Complications: no major complications apparent
--- NOTE | 2024-03-29 14:20 | XRay Report ---
XR shoulder RT min 2V routine HISTORY: 83 years-old Female Post shoulder surgery right shoulder arthroplasty COMPARISON: Chest radiograph 03/02/2024 TECHNIQUE: 2 views of the right shoulder FINDINGS: Reverse right shoulder arthroplasty. Overlying skin jb with expected postoperative soft tissue s welling and deep tissue air. No acute fracture or malalignment. Mild to moderate degeneration of the AC joint. IMPRESSION: Satisfactory alignment of the right shoulder arthroplasty. ACT 112: Negative or not required by law. The above report was generated using voice recognition software. It may contain grammatical, syntax o r spelling errors. Electronically signed by: Mitul Alcocer M.D. 03/29/2024 2:18 PM
[2024-03-29] MEDS: KETOROLAC TROMETHAMINE 15 MG/ML VIAL IV SCH (15:53)
[2024-03-29] MEDS ORDERED: CALCIUM 600MG + VIT D 400 IU TAB PO SCH (21:00)
[2024-03-29] MEDS ORDERED: DEXTROAMPHETAMINE AMPHETAMINE 10 MG PO SCH (21:00)
[2024-03-29] MEDS ORDERED: NON-FORMULARY MEDICATION (Brimonidine-Timolol [Combigan] 0.2-0.5 % drops) OP SCH (21:00)
[2024-03-29] MEDS ORDERED: DEXTROAMPHETAMINE/AMPHETAMINE IR 10 MG TAB PO SCH (21:00)
[2024-03-29] MEDS ORDERED: traZODone HCL 50 MG TAB PO SCH (21:00)
[2024-03-29] MEDS: SENNA 8.6 MG TAB PO SCH (21:22)
[2024-03-29] MEDS: DOCUSATE SODIUM 100 MG CAP PO SCH (21:22)
[2024-03-29] MEDS: BRIMONIDINE TARTRATE 0.2% 5ML OP SCH (21:24)
[2024-03-29] MEDS: TIMOLOL MALEATE 0.5% OP SOLN 5 ML BTL OP SCH (21:24)
[2024-03-29] MEDS: PRAMIPEXOLE DIHYDROCHLO 0.5 MG TAB PO SCH (21:25)
[2024-03-29] MEDS: MAGNESIUM OXIDE 400 MG TAB PO SCH (21:26)
[2024-03-29] MEDS: GABAPENTIN 400 MG CAP PO SCH (21:27)
[2024-03-29] MEDS: ATORVASTATIN 40 MG TAB PO SCH (21:27)
[2024-03-29] MEDS: lamoTRIgine 100 MG TAB PO SCH (21:34)
[2024-03-29] MEDS: MONTELUKAST SODIUM 10 MG TABLET PO SCH (21:35)
--- NOTE | 2024-03-30 07:18 | Orthopedic Progress Note ---
Date of Service March 30, 2024 Assessment & Plan (1) Status post reverse total replacement of right shoulder: Overall she is doing fairly well. She is not having much pain in the right shoulder. She will be seen by physical therapy today for ambulation and range of motion exercises. She is hoping to go to a rehab facility. She is orthopedically stable for discharge of the bed becomes available today. Adrian Benito was seen and examined at bedside this morning. Overall she is doing fairly well. She is not having too much pain in the right shoulder. She was able to get some sleep last night. She is no complaints.. Review of Systems All systems reviewed & are unremarkable except as noted in HPI & below. Physical Exam On physical exam of the right shoulder, the dressing is clean and dry. She is wearing her sling as instructed. She has active motion of her hand and her wrist.. Results & Data Results & Data Laboratory Results . Diagnostic Findings Postoperative x-rays of the right shoulder show the prosthesis to be in anatomic alignment without any evidence of fracture complication, or loosening.. PG Care Time/CCT Total # of Minutes Spent Total Time Spent with Patient: Total time spent is greater than 50% in coordination of care (as documented) at patient's floor/unit and/or counseling patient: Coding Level of Care Code 22810 Post Operative Follow-Up Diagnoses Status post reverse total replacement of right shoulder Z96.611
[2024-03-30] MEDS: APIXABAN 5 MG TABLET PO SCH (08:30)
[2024-03-30] MEDS: DEXTROAMPHETAMINE/AMPHETAMINE IR 10 MG TAB PO SCH ×2 (08:34→14:04)
[2024-03-30] MEDS: CYANOCOBALAMIN (B-12) 2,500 MCG TABLET PO SCH (08:34)
[2024-03-30] MEDS: MULTIVITAMIN TAB PO SCH (08:35)
[2024-03-30] MEDS: busPIRone 5 MG TAB PO SCH (08:35)
[2024-03-30] MEDS: LORATADINE 10 MG TAB PO SCH (08:35)
[2024-03-30] MEDS: ESCITALOPRAM OXALATE 20 MG TAB PO SCH (08:35)
[2024-03-30] MEDS: OXYBUTYNIN CHLORIDE XL 5 MG TABCR PO SCH (08:35)
[2024-03-30] MEDS: PANTOprazole 40 MG TAB PO SCH (08:35)
[2024-03-30] MEDS: dilTIAZem HCL 300 MG CAPCR PO SCH (08:35)
[2024-03-30] MEDS: dexAMETHasone 4 MG TAB PO SCH (08:35)
[2024-03-30] MEDS: CHOLECALCIFEROL 25 MCG (1000 UNITS) TAB PO SCH (08:36)
[2024-03-30] MEDS: ASCORBIC ACID 500 MG TAB PO SCH (08:36)
[2024-03-30] MEDS: DIGOXIN 0.125 MG TAB PO SCH (08:36)
[2024-03-30] MEDS: TOCOPHERYL, DL-ALPHA 400 UNITS 180 MG CAP PO SCH (08:36)
[2024-03-30] MEDS: ESCITALOPRAM OXALATE 10 MG TAB PO SCH (08:37)
[2024-03-30] MEDS ORDERED: NON-FORMULARY MEDICATION (Biotin 10 mg Tablet) PO SCH (09:00)
[2024-03-30] MEDS ORDERED: NON-FORMULARY MEDICATION (Multivitamin tablet) PO SCH (09:00)
[2024-03-30] MEDS ORDERED: NON-FORMULARY MEDICATION (Zinc Gluconate 50 mg tablet) PO SCH (09:00)
[2024-03-30] MEDS ORDERED: DEXTROAMPHETAMINE/AMPHETAMINE IR 10 MG TAB PO SCH ×2 (09:00→12:00)
[2024-03-30] MEDS ORDERED: Nursing to Pharmacy Communication SCH (11:15)
[2024-03-30] MEDS: ALBUTEROL 0.083% NEBU SOLN 3 ML VIAL INH PRN (12:32)
[2024-03-30] MEDS: TRAVOPROST Z 0.004% OPH SOLN 2.5 ML BTL OP SCH (20:43)
[2024-03-30] MEDS: oxyCODONE HCL IR 5 MG TAB (IMMEDIATE RELEASE) PO PRN (20:46)
[2024-03-30] MEDS: ASPIRIN 81 MG ECTAB PO SCH (20:48)
[2024-03-31] MEDS: DEXTROAMPHETAMINE/AMPHETAMINE IR 10 MG TAB PO SCH (05:11)
--- NOTE | 2024-03-31 07:56 | Orthopedic Progress Note ---
Date of Service March 31, 2024 Assessment & Plan (1) Status post reverse total replacement of right shoulder: Overall she is doing fairly well. She not having too much pain in the right shoulder. She will be seen by physical therapy today for ambulation and range of motion exercises. She is orthopedically stable for discharge when a bed becomes available at a nursing or rehab facility. Adrian Benito was seen and examined at bedside this morning. Overall she is doing fairly well. She is not having too much pain in the right shoulder. She was able to get some sleep last night. She is no complaints.. Review of Systems All systems reviewed & are unremarkable except as noted in HPI & below. Physical Exam On physical exam of the right shoulder, the dressing is clean and dry. She is wearing her sling as instructed.. Results & Data Results & Data Laboratory Results . Diagnostic Findings . PG Care Time/CCT Total # of Minutes Spent Total Time Spent with Patient: Total time spent is greater than 50% in coordination of care (as documented) at patient's floor/unit and/or counseling patient: Coding Level of Care Code 90845 Post Operative Follow-Up Diagnoses Status post reverse total replacement of right shoulder Z96.611
[2024-03-31] MEDS: oxyCODONE HCL IR 5 MG TAB (IMMEDIATE RELEASE) PO PRN (19:31)
[2024-03-31] MEDS: traZODone HCL 50 MG TAB PO PRN (21:47)
[2024-04-01] MEDS: ALBUTEROL HFA 8 GM INHALER INH PRN (04:07)
--- NOTE | 2024-04-01 13:11 | Orthopedic Progress Note ---
Date of Service April 01, 2024 Assessment & Plan (1) Status post reverse total replacement of right shoulder: Overall she is doing fairly well. She is not having too much pain in the right shoulder. She will continue to work with physical therapy. She is orthopedically stable for discharge when a bed becomes available at a rehab facility. Adrian Benito was seen and examined at bedside this morning. Overall she doing fairly well. She has a little bit of an asthma attack today but that is being treated with her home medications. She is not having too much pain in the shoulder. She has no new complaints.. Review of Systems All systems reviewed & are unremarkable except as noted in HPI & below. Physical Exam On physical exam of the right shoulder, the dressing is clean and dry. She is wearing her sling as instructed. She has active motion of her hand and her wrist.. Results & Data Results & Data Laboratory Results . Diagnostic Findings . PG Care Time/CCT Total # of Minutes Spent Total Time Spent with Patient: Total time spent is greater than 50% in coordination of care (as documented) at patient's floor/unit and/or counseling patient: Coding Level of Care Code 66455 Post Operative Follow-Up Diagnoses Status post reverse total replacement of right shoulder Z96.611
[2024-04-01] MEDS ORDERED: methylPREDNISolone 125 MG/2 ML VIAL IV STA (15:33)
--- NOTE | 2024-04-01 15:49 | Hospitalist Consultation ---
Date of Consultation April 01, 2024 Assessment & Plan (1) COPD exacerbation: This is an 83 year old female with past medical history of a fib, CAD, CKD stage 3, HLD, COPD, Asthma, Allergic rhinitis, anemia who presented to the hospital on 03/29 for an elective right reverse total shoulder athroplasty with Dr. Dennis. -CXR pending -CBC, BMP pending -Respiratory biofire pending. -s/p Solumedrol 60mg IV, will reassess further doses in AM. -Duonebs q 6h prn -per hx pt has not tolerated Advair well in past. Added Incruse -Incentive Spirometry -Continue O2 via nasal cannula wean when possible back to room air. (2) Atrial fibrillation: Chronic continue Diltiazem and Digoxin continue Eliquis EKG 02/2024: A fib, no change from previous EKG's (3) CKD (chronic kidney disease): BMP pending. Baseline Creatinine 0.6 (4) Status post reverse total replacement of right shoulder: Pain medication, bowel regimen, DVT prophylaxis, diet per primary team Plan Chronic conditions: GERD: PPI Mental health: Lexapro, Buspar Allergic Rhinitis: Claritin Asthma: Montelukast Urinary incontinence: Oxybutynin Neuropathy: Gabapentin DVT prophylaxis: Eliquis Diet: Regular Disposition: per primary team, pending placement Code status: full History of Present Illness Attending Physician: Barrera Dennis, History of Present Illness This is an 83 year old female with past medical history of a fib, CAD, CKD stage 3, HLD, COPD, Asthma, Allergic rhinitis, anemia who presented to the hospital on 03/29 for an elective right reverse total shoulder athroplasty with Dr. Dennis. Patient was seen and examined this afternoon at bedside. At time of encounter she was resting comfortably in bed on 4L O2 nasal cannula. Patient is reportedly on room air at baseline but does require up to 4L O2 overnight. She reports about 1-2 days ago she felt that she was becoming more short of breath. Nursing noticed that when she would remove her O2 to use the restroom her oxygen was dropping low into the 70s. Saturation would improve after high flow nasal cannula was resumed. patient reports a productive cough as well. She notes chest pain with deep inspiration. She denies any additional complaints including nausea, vomiting, abdominal pain, or lower extremity edema. She is currently waiting bed placement for rehab following her shoulder surgery. Allergies Allergy/AdvReac Type Severity Reaction Status Date / Time azithromycin Allergy Unknown throat Verified 03/29/24 09:44 burned, lost weight chocolate flavor Allergy Unknown hx rash Verified 03/29/24 09:44 fluticasone Allergy Unknown chest pain Verified 03/29/24 09:44 (from [facility]) Penicillins Allergy Unknown per Verified 03/29/24 09:44 allergy test procaine Allergy Unknown novacaine Verified 03/29/24 09:44 - anaphylaxis, mouth swelling, dyspnea salmeterol Allergy Unknown chest pain Verified 03/29/24 09:44 (from [facility]) moxifloxacin AdvReac Unknown N/V Verified 03/29/24 09:44 NSAIDS (Non-Steroidal AdvReac Unknown advised to Verified 03/29/24 09:44 Anti-Inflamma avoid d/t ulcer hx zolpidem AdvReac Unknown sleep Verified 03/29/24 09:44 walking Home Medications Medication Instructions Recorded Confirmed Type psyllium seed (sugar) oral powder 1 tbsp PO DAILY PRN Constipation 03/03/20 03/08/24 History (Metamucil (sugar) oral powder) escitalopram oxalate 5 mg tablet 5 mg PO QAM #90 tabs 03/15/20 03/29/24 Rx (Lexapro) calcium 600 mg (as 1 tab PO BID #60 tabs 04/28/20 03/29/24 Rx carbonate)-vitamin D3 10 mcg (400 unit) tablet (Calcium 600 + D(3)) trazodone 150 mg tablet 225 mg (1.5 x 150 mg) PO HS #45 04/28/20 03/29/24 Rx tabs zinc gluconate 50 mg tablet 50 mg PO QAM #30 tabs 07/20/20 03/29/24 Rx aspirin 81 mg tablet,delayed 81 mg PO HS #30 tabs 08/18/20 03/29/24 Rx release cholecalciferol (vitamin D3) 50 2,000 unit PO QAM #30 tabs 09/13/20 03/29/24 Rx mcg (2,000 unit) tablet multivitamin 1 tab PO QAM #30 tabs 09/13/20 03/29/24 Rx Oxygen Home #1 ea 03/27/21 03/08/24 Rx Scooter #1 ea 04/03/21 03/08/24 Rx travoprost 0.004 % eye drops 1 drp ophthalmic (eye) QPM 05/03/21 03/29/24 History dextroamphetamine-amphetamine 10 10 - 20 mg PO BID 03/07/22 03/29/24 History mg tablet (Adderall) acetaminophen 500 mg tablet 1,000 mg PO DIRECTED PRN Pain 11/12/22 03/29/24 History (Tylenol Extra Strength) ascorbic acid (vitamin C) 500 mg 500 mg PO QAM 11/12/22 03/29/24 History tablet (Vitamin C) biotin 10 mg tablet 10 mg PO QAM 11/12/22 03/08/24 History guaifenesin 600 mg tablet, 600 mg PO UD PRN Congestion 11/12/22 03/08/24 History extended release 12 hr (Mucinex) nebulizer accessories #2 ea 03/31/23 03/08/24 Rx nebulizers #1 ea 03/31/23 03/08/24 Rx cyanocobalamin (vitamin B-12) 2,500 mcg PO QAM 05/06/23 03/29/24 History 2,500 mcg tablet escitalopram oxalate 20 mg tablet 20 mg PO QAM 05/06/23 03/29/24 History (Lexapro) vitamin E 800 unit capsule 800 unit PO QAM 05/06/23 03/29/24 History diaper,brief,adult,disposable #6 ea 10/21/23 03/08/24 Rx (Select Disposable Briefs) pramipexole 0.5 mg tablet 0.5 mg PO HS #90 tabs 11/07/23 03/29/24 Rx atorvastatin 40 mg tablet (Lipitor) 40 mg PO HS #90 tabs 12/04/23 03/29/24 Rx digoxin 125 mcg (0.125 mg) tablet 125 mcg PO QAM #90 tabs 12/04/23 03/29/24 Rx montelukast 10 mg tablet 10 mg PO HS #90 tabs 12/04/23 03/29/24 Rx (Singulair) oxybutynin chloride 5 mg 5 mg PO QAM #90 tabs 12/04/23 03/29/24 Rx tablet,extended release 24 hr brimonidine 0.2 %-timolol 0.5 % 1 drp ophthalmic (eye) BID #15 mL 01/02/24 03/29/24 Rx eye drops (Combigan) apixaban 5 mg tablet (Eliquis) 5 mg PO BID #60 tabs 01/21/24 03/29/24 Rx gabapentin 400 mg capsule 400 mg PO BID #60 caps 01/30/24 03/29/24 Rx buspirone 5 mg tablet 5 mg PO QAM Anxiety 02/18/24 03/29/24 History albuterol sulfate 2.5 mg/3 mL 0 mg inhalation UD PRN asthma 02/20/24 03/29/24 History (0.083 %) solution for nebulization attacks albuterol sulfate 90 mcg/actuation 2 puff inhalation UD PRN asthma 02/20/24 03/29/24 History aerosol inhaler (Ventolin HFA) diclofenac sodium 1 % topical gel 0 g topical UD PRN Pain 02/20/24 03/29/24 History diltiazem HCl 300 mg capsule,24 300 mg PO QAM 02/20/24 03/29/24 History hr,extended release loratadine 10 mg tablet 10 mg PO QAM 02/20/24 03/29/24 History magnesium oxide 400 mg PO HS #90 tabs 03/08/24 03/29/24 Rx lamotrigine 150 mg tablet 150 mg PO HS 03/29/24 03/29/24 History (Lamictal) pantoprazole 40 mg tablet,delayed 40 mg PO QAM 03/29/24 03/29/24 History release (Protonix) cefadroxil 500 mg capsule 500 mg PO BID 10 days #20 caps 03/30/24 Rx tramadol 50 mg tablet 50 mg PO Q6H PRN pain #30 tabs 03/30/24 Rx Patient History Medical History Atrial fibrillation Pre-diabetes denies CKD (chronic kidney disease) pt denies Nocturnal hypoxia o2 3L HS. Mitral regurgitation Left ventricular systolic dysfunction EF 45-50% on 03/2023 echo; > 55% 12/2023 stress echo CAD (coronary artery disease) mild in 2003 per [place] [facility] records Aortic regurgitation mild to moderate on 03/2023 echo Nerve pain of head. Gabapentin for. Lung nodule not that pt aware of. Esophageal dysphagia Asthma COPD (chronic obstructive pulmonary disease) ADHD Anxiety Raynauds disease Acid reflux controlled, stable per pt Tremor hands History of gastric ulcer History of sepsis (2022) History of skin cancer removed Right lower quadrant abdominal pain evaluated mn end of or 02/2024 - pt reports suspected muscular thing, using voltaren gel with some improvement. 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 Arthritis of neck mild limitation rom. Osteoarthritis bone density is good per pt History of anemia History of COVID-19 (~02/2023) fatigue/lethargy for 3 days. resolved Restless leg syndrome On home oxygen therapy 3-4L N/C at hs Esophageal stenosis "twist in esophagus" Incontinence of urine Hearing deficit b/l HERRERA Glaucoma Depression Hyperlipidemia History of transient cerebral ischemia first entered into chart 12/23/18; pt denies hx mini stroke/TIA or stroke. Rheumatoid arthritis (02/25/13) per pt dx at age with RA. Surgical History History of lumbar fusion x2 most recent 2018 History of foot surgery toes on left foot - pt confirms a total of 4 left foot surgeries. History of foot surgery left removal of bone spur S/P foot surgery, left LEFT FOOT LITTLE TOE AMPUTATED 2022. S/P foot surgery, left left ankle/foot reconstruction (2019) History of total hip arthroplasty right hip H/O toe surgery left foot History of total knee replacement bilateral; right TKA: 05/22/17: SAB x1 at L3-L4 + PNB at [facility] S/P hardware removal right ankle S/P laparotomy removed adhesions to relieve bowel strangulation S/P ankle arthrodesis right ankle History of open reduction and internal fixation (ORIF) procedure right ankle H/O elbow surgery bilateral S/P AMANDA (total abdominal hysterectomy) H/O thumb surgery right x2 History of appendectomy History of colonoscopy History of esophagogastroduodenoscopy (EGD) History of surgical removal of skin lesion History of tonsillectomy Family History Family/Other Coronary heart disease Heart disease Cancer Hypertension Brother Prostate cancer Benign familial tremor Father Benign familial tremor Mother Malignant melanoma Aunt Rheumatoid arthritis Other No family history of adverse response to anesthesia Denies family history of Ovarian cancer Myocardial infarction Breast cancer Colorectal cancer Social History Smoking Status: Former smoker Tobacco Type: Cigarettes Age Started Using Tobacco: 19 (intermittently quit throughout the years); Age Quit Using Tobacco: 81; packs per day: 0.1; Cigarettes Per Day: 2; Smoking End Date: approx 5 yr; Second Hand Exposure: No; Do You Dip or Chew Tobacco: No; Hx Alcohol Use: Yes Alcohol type: beer Alcohol Intake Frequency Comment: rarely Hx Substance Use: No Preferred Language: Malay Communication Ability: Effective Visual Impairment: No Limitations Hearing Ability: Hard of Hearing Clinical Nursing Assistant Required: No Beliefs That Will Affect Care: None marital status: Current Living Situation: Alone Current Living Situation Comment: jail apartment/independent 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al status: retired 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 Physical Exam Constitutional: WD/WN, vitals as above Eyes: PERRL, conjunctivae normal, anicteric sclerae Respiratory: wheezing throughout lung aguilar, diminished breath sounds. Cardiovascular: irregular rate. no edema. Psychiatric: A+Ox3, euthymic affect Results & Data Results & Data Vital Signs (Past 12 Hours) Vital Signs Temp Pulse Pulse Pulse Resp BP Pulse Ox 04/01/24 14:05 36.9 C 99 H 20 119/63 91 04/01/24 08:40 100 H 04/01/24 08:03 115 H 20 94 04/01/24 07:20 04/01/24 06:58 36.8 C 101 H 18 125/83 91 04/01/24 04:10 88 20 92 O2 Del Method O2 Flow Rate 04/01/24 14:05 Nasal Cannula 4 04/01/24 08:40 04/01/24 08:03 Nasal Cannula 4 04/01/24 07:20 Nasal Cannula 4 04/01/24 06:58 Nasal Cannula 3 04/01/24 04:10 Nasal Cannula 4 PG Care Time/CCT Total # of Minutes Spent Total Time Spent with Patient: Total time spent is greater than 50% in coordination of care (as documented) at patient's floor/unit and/or counseling patient: Coding Level of Care Code 27846 IN/OBS CONSULT LVL 3,45M Diagnoses COPD exacerbation J44.1 Paroxysmal atrial fibrillation I48.0 Atrial fibrillation type: paroxysmal CKD (chronic kidney disease) N18.9 Status post reverse total replacement of right shoulder Z96.611 (2) Atrial fibrillation Atrial fibrillation type: paroxysmal Qualified Code(s): I48.0 - Paroxysmal atrial fibrillation
[2024-04-01] MEDS: methylPREDNISolone 60 MG in SYRINGE 0 ML IV ONE (16:01)
--- NOTE | 2024-04-01 16:12 | XRay Report ---
INDICATION: Shortness of breath. TECHNIQUE: Frontal radiograph of the chest. COMPARISON: Radiograph from 03/02/2024. FINDINGS: Cardiomegaly. Multifocal infiltrates/edema. Subsegmental atelectasis in the lung bases.. Small right pleural effusion. No pneumothorax. Postoperative changes in the right shoulder. No acute fracture. IMPRESSION: Multifocal infiltrates/edema. Subsegmental atelectasis in the lung bases.. Small right pleural effusion. Electronically signed by Ankit Winter 04-01-2024 4:12 PM
[2024-04-01 16:20] LABS: Basophils # (auto) 0.02 K/uL (0.00-0.20); Basophils % (auto) 0.2 %; Eosinophils # (auto) 0.15 K/uL (0.00-0.50); Eosinophils % (auto) 1.2 %; Hematocrit (blood only) 34.3 % (37.0-47.0); Hemoglobin 10.7 g/dl (12.0-16.0); Immature Granulocytes # (auto) 0.06 K/uL (0.01-0.20); Immature Granulocytes % (auto) 0.5 %; Lymphocytes # (auto) 1.93 K/uL (1.20-3.40); Lymphocytes % (auto) 15.6 %; Mean Corpuscular Hemoglobin 28.5 pg (25.0-34.0); Mean Corpuscular Hgb Conc 31.2 g/dL (32.0-36.0); Mean Corpuscular Volume 91.5 fL (80.0-100.0); Mean Platelet Volume 10.1 fL (9.4-12.4); Monocytes # (auto) 1.18 K/uL (0.11-0.59); Monocytes % (auto) 9.5 %; Neutrophils # (auto) 9.04 K/uL (1.40-6.50); Platelet Count 207 K/uL (130-400); RDW Coefficient of Variation 14.6 % (11.5-14.5); RDW Standard Deviation 48.6 fL (36.4-46.3); Red Blood Count 3.75 M/uL (4.20-5.40); White Blood Count 12.38 K/ul (4.8-10.8)
[2024-04-01] MEDS: UMECLIDINIUM BROMIDE 62.5MCG/BLISTER 7 PUFFS/INHALER INH SCH (16:26)
[2024-04-01 16:34] LABS: Calcium 9.9 mg/dl (8.6-10.3); Potassium 3.8 mmol/L (3.5-5.1)
[2024-04-01 17:06] LABS: Adenovirus PCR Not Detected (NotDetected); Bordetella parapertussis PCR Not Detected (NotDetected); Bordetella pertussis PCR Not Detected (NotDetected); Chlamydia pneumoniae PCR Not Detected (NotDetected); Coronavirus 229E PCR Not Detected (NotDetected); Coronavirus CoV-2 (COVID19)PCR Not Detected (NotDetected); Coronavirus HKU1 PCR Not Detected (NotDetected); Coronavirus NL63 PCR Not Detected (NotDetected); Coronavirus OC43PCR Not Detected (NotDetected); Human Metapneumovirus PCR Not Detected (NotDetected); Influenza A PCR Not Detected (NotDetected); Influenza B PCR Not Detected (NotDetected); Mycoplasma pneumoniae PCR Not Detected (NotDetected); Parainfluenza Virus 1 PCR Not Detected (NotDetected); Parainfluenza Virus 2 PCR Not Detected (NotDetected); Parainfluenza Virus 3 PCR Not Detected (NotDetected); Parainfluenza Virus 4 PCR Not Detected (NotDetected); Respiratory Syncytial VirusPCR Not Detected (NotDetected); Rhinovirus/Enterovirus PCR Not Detected (NotDetected)
[2024-04-01 17:21] LABS: Magnesium 1.4 mg/dl (1.7-2.4)
[2024-04-01] MEDS ORDERED: ALBUT/IPRATROP 3MG/0.5MG NEB 3 ML VIAL NEB SCH (19:00)
[2024-04-01] MEDS: ALBUT/IPRATROP 3MG/0.5MG NEB 3 ML VIAL NEB PRN (21:20)
[2024-04-01] MEDS: traZODone HCL 50 MG TAB PO SCH (22:17)
[2024-04-01] MEDS: traZODone HCL 100 MG TAB PO SCH (22:17)
[2024-04-02 06:40] LABS: Basophils # (auto) 0.01 K/uL (0.00-0.20); Basophils % (auto) 0.1 %; Hematocrit (blood only) 36.6 % (37.0-47.0); Hemoglobin 11.4 g/dl (12.0-16.0); Immature Granulocytes # (auto) 0.06 K/uL (0.01-0.20); Immature Granulocytes % (auto) 0.6 %; Lymphocytes # (auto) 1.03 K/uL (1.20-3.40); Lymphocytes % (auto) 9.7 %; Mean Corpuscular Hemoglobin 28.1 pg (25.0-34.0); Mean Corpuscular Hgb Conc 31.1 g/dL (32.0-36.0); Mean Corpuscular Volume 90.4 fL (80.0-100.0); Mean Platelet Volume 10.2 fL (9.4-12.4); Monocytes # (auto) 0.55 K/uL (0.11-0.59); Monocytes % (auto) 5.2 %; Neutrophils # (auto) 8.98 K/uL (1.40-6.50); Neutrophils % (auto) 84.4 %; Platelet Count 236 K/uL (130-400); RDW Coefficient of Variation 14.2 % (11.5-14.5); RDW Standard Deviation 47.8 fL (36.4-46.3); Red Blood Count 4.05 M/uL (4.20-5.40); White Blood Count 10.63 K/ul (4.8-10.8)
[2024-04-02 07:01] LABS: BUN Creatinine Ratio 38.6 (10-20); Calcium 10.3 mg/dl (8.6-10.3); Creatinine Clr Calc Pharmacy 95.1 ml/min; Magnesium 1.7 mg/dl (1.7-2.4); Potassium 4.2 mmol/L (3.5-5.1)
[2024-04-02] MEDS ORDERED: methylPREDNISolone 10 mg/mL (For Ped Dose < 7mg) IV SCH (09:45)
[2024-04-02] MEDS: PSYLLIUM or GUAR GUM FIBER 4GM PACKET PO PRN (12:27)
[2024-04-02] MEDS: methylPREDNISolone 40 MG in SYRINGE 0 ML IV SCH (12:27)
--- NOTE | 2024-04-02 15:24 | Hospitalist Progress Note ---
Date of Service April 02, 2024 Assessment & Plan (1) COPD exacerbation: Plan: This is an 83 year old female with past medical history of a fib, CAD, CKD stage 3, HLD, COPD, Asthma, Allergic rhinitis, anemia who presented to the hospital on 03/29 for an elective right reverse total shoulder athroplasty with Dr. Dennis. CBC reviewed 04/02: stable, no leukocytosis BMP reviewed 04/02: stable Biofire 04/01: negative. CXR 04/01: multifocal infiltrates/edmea. subsegmental atelectasis in lung bases. sm right pleural effusion. -Solumedrol 40mg IV daily. -Duonebs q 6h prn -per hx pt has not tolerated Advair well in past. Continue Incruse -Incentive Spirometry -Continue O2 via nasal cannula wean when possible back to room air. (2) Atrial fibrillation: Plan: Chronic continue Diltiazem and Digoxin continue Eliquis EKG 02/2024: A fib, no change from previous EKG's (3) CKD (chronic kidney disease): Plan: BMP revealed creatinine at baseline 04/02. Baseline Creatinine 0.6 (4) Status post reverse total replacement of right shoulder: Plan: Pain medication, bowel regimen, DVT prophylaxis, diet per primary team Plan Chronic conditions: GERD: PPI Mental health: LexaproSarahpar Allergic Rhinitis: Claritin Asthma: Montelukast Urinary incontinence: Oxybutynin Neuropathy: Gabapentin DVT prophylaxis: Eliquis Diet: Regular Disposition: per primary team, pending placement Code status: full Admission and Anticipated Discharge Date Admission Date: March 31, 2024 Subjective Patient seen and examined this morning. patient reports improvement in her SOB. She did have to have oxygen increased to 5L with PT today but has been weaned down to 3L currently. Reports coughing has improved as well. Admits to pain in her shoulder. Denies CP. Physical Exam 2 Constitutional: WD/WN, vitals as above Eyes: PERRL, conjunctivae normal, anicteric sclerae Respiratory: wheezing left lower lobe, remainder clear. diminished Cardiovascular: irregular. no edema Psychiatric: A+Ox3, euthymic affect Results & Data Results & Data Vital Signs (Past 12 Hours) Vital Signs Temp Pulse Pulse Resp BP Pulse Ox O2 Del Method 04/02/24 15:19 36.7 C 92 H 16 121/76 94 Room Air 04/02/24 14:05 96 Nasal Cannula 04/02/24 12:00 98 Nasal Cannula 04/02/24 11:49 36.6 C 91 H 16 138/84 Nasal Cannula 04/02/24 08:53 95 H 04/02/24 08:15 Nasal Cannula 04/02/24 07:59 36.7 C 95 H 20 142/70 H 92 Nasal Cannula O2 Flow Rate 04/02/24 15:19 04/02/24 14:05 3 04/02/24 12:00 4 04/02/24 11:49 5 04/02/24 08:53 04/02/24 08:15 5 04/02/24 07:59 Laboratory Results 04/02/24 06:02 04/02/24 06:02 PG Care Time/CCT Total # of Minutes Spent Total Time Spent with Patient: Total time spent is greater than 50% in coordination of care (as documented) at patient's floor/unit and/or counseling patient: Coding Level of Care Code 23050 SUB INP/OBS CARE 2/35MIN Diagnoses COPD exacerbation J44.1 Paroxysmal atrial fibrillation I48.0 Atrial fibrillation type: paroxysmal CKD (chronic kidney disease) N18.9 Status post reverse total replacement of right shoulder Z96.611 (2) Atrial fibrillation Atrial fibrillation type: paroxysmal Qualified Code(s): I48.0 - Paroxysmal atrial fibrillation
--- NOTE | 2024-04-02 16:51 | Orthopedic Progress Note ---
Date of Service April 02, 2024 Assessment & Plan (1) Status post reverse total replacement of right shoulder: Overall she continues to improve. She is not having too much pain in the shoulder. She feels much better after the steroid treatment. Her oxygen saturations are improving. She can likely be discharged tomorrow. Adrian Benito was seen and examined at bedside this morning. Overall she continues to do fairly well. She is not in too much pain in the right shoulder. She has been seen by the hospitalist for COPD exasperation. She has been started on some steroids. Her oxygen saturations are improving. She has no new complaints.. Review of Systems All systems reviewed & are unremarkable except as noted in HPI & below. Physical Exam On physical exam of the right shoulder, the dressing is clean and dry. She is wearing her sling as instructed.. Results & Data Results & Data Laboratory Results . Diagnostic Findings . PG Care Time/CCT Total # of Minutes Spent Total Time Spent with Patient: Total time spent is greater than 50% in coordination of care (as documented) at patient's floor/unit and/or counseling patient: Coding Level of Care Code 30229 Post Operative Follow-Up Diagnoses Status post reverse total replacement of right shoulder Z96.611
--- NOTE | 2024-04-03 06:58 | Orthopedic Progress Note ---
Date of Service April 03, 2024 Assessment & Plan (1) Status post reverse total replacement of right shoulder: She is doing well with regards to the shoulder. She has a bed available at rehab today. She has been treated by the medicine team for acute exasperation of COPD. She was saturating at 94% on room air yesterday. She usually uses oxygen at night. Will wean her off the nasal cannula this morning. If cleared by the hospitalist she can be [facility] later today. Adrian Benito was seen and examined at bedside this morning. Overall she is doing fairly well. She is back on oxygen overnight but she does that at home. She has no new complaints.. Review of Systems All systems reviewed & are unremarkable except as noted in HPI & below. Physical Exam On physical exam of the right shoulder, the dressing is clean and dry. She is wearing her sling as instructed.. Results & Data Results & Data Laboratory Results . Diagnostic Findings . PG Care Time/CCT Total # of Minutes Spent Total Time Spent with Patient: Total time spent is greater than 50% in coordination of care (as documented) at patient's floor/unit and/or counseling patient: Coding Level of Care Code 57041 Post Operative Follow-Up Diagnoses Status post reverse total replacement of right shoulder Z96.611
--- NOTE | 2024-04-03 07:00 | Discharge Summary ---
Date of Service April 03, 2024 Admission HPI (Per Admitting) Jigna is a pleasant 83-year-old female who has been dealing with chronic increasing right shoulder pain. It has been going on for years, but for the past 2 months it has been really debilitating. She cannot do anything away from her body or up overhead. She has been seeing my partner, Dr. Brown. He has given her a couple of injections. Unfortunately, the injections are no longer helping. 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 After failed conservative treatment, she has elected to proceed with a right reverse shoulder arthroplasty. Admission Exam (Per Admitting) On physical examination of right shoulder, she has a pseudoparalysis on was secondary to pain. She has weakness throughout. Pain over the glenohumeral j oint line.. Principal Diagnosis Same as "Discharge Diagnosis" noted below under Discharge Instructions. Discharge Exam On physical exam of the right shoulder, the dressing is clean and dry. She is wearing her sling as instructed.. Discharge Data Consultations 04/01/24 14:51 Consult Hospitalist Routine Procedures Performed Operation Date: 03/29/24 11:00 Actual Procedures p Right Reverse Total Shoulder Arthroplasty(Right) - Barrera Dennis DO Ordered Studies 03/29/24 05:00 US - OR guided needle placemen Routine Hospital Course (1) Status post reverse total replacement of right shoulder: On March 29, 2024 Jigna arrived at [facility] and underwent a right reverse shoulder replacement without complication. She had a general anesthetic and a right interscalene nerve block. Postoperatively she was placed in a sling and transferred to the general orthopedic floors. During her stay, she never really had any issues with the shoulder. The shoulder did fairly well. She was dealing with an acute exasperation of her COPD. She usually requires oxygen at night but she was requiring oxygen throughout the day. The hospitalist was consulted. She was given some steroids and her symptoms improved. She has been able to participate well with physical therapy. She has elected to go to a rehab facility. Once she received insurance authorizations and a bed was available, and once she was cleared by the hospitalist, [facility]. She will follow-up with orthopedics in 2 weeks. PG Care Time/CCT Total # of Minutes Spent Total Time Spent with Patient: Total time spent is greater than 50% in coordination of care (as documented) at patient's floor/unit and/or counseling patient: Discharge Plan Discharge Items Patient Disposition: Home - Self-Care Reason For Visit: S/P RIGHT REVERSE TOTAL SHOULDER ARTHROPLASTY Discharge Diagnosis: Right reverse shoulder replacement Activity: Per Instructions section Non-emergency contact: Surgeon Call non-emergency contact if: your wound has increased redness and your wound has increased drainage Follow-up/Referrals: Faiza Costa MD [Primary Care Provider] - Diet: Regular Addtl Attending Provider Instructions: Activity and Therapy Recommendations: * If you are using [facility] then therapy will be provided at your home until they feel you have accomplished all of your goals. * If you are using [facility] then Physical Therapy will be provided until they feel you are ready to start Outpatient Physical Therapy. * If you are not using home therapy then Outpatient Physical Therapy should start about 3-5 days from your day of surgery. Therapy will last about 8-12 weeks * Wear your sling for 3 weeks, unless otherwise instructed. You may remove your sling to shower and to dress, but otherwise, you should be in your sling at all times, including while sleeping * The shoulder replacement is very stable and you can use your hand while in the sling * You were shown a series of exercises in the hospital. Do these exercises daily including the exercises you were shown in physical therapy. Medications: * Narcotic You will likely be sent home from the hospital with a prescription for the narcotic pain medication that worked best throughout your stay. * Cefadroxil -take the antibiotic twice a day for 10 days to help prevent infection. * Other medications may be prescribed for specific circumstances. If you have any questions, please call the office at . * Resume previous home medications unless otherwise instructed Dressing Care: Leave the Silverlon dressing in place for 7 days. After 7 days you may remove the dressing. If the incision is not draining then you may leave the jb open to air. If there is a little bit of drainage or if the jb are getting stuck on your clothing then cover the incision with a dry dressing. The jb will be removed at your 2 week follow-up appointment. Showering: You may shower with the Silverlon dressing in place. Do not let the shower spray hit the dressing directly. Pat the Silverlon dressing dry. If the dressing becomes wet underneath, then simply remove the dressing. Keep the incision dry until you are 7 days out from the day of surgery. After 7 days you may remove the Silverlon dressing and shower with the jb exposed. Let soapy water run over the jb and pat them dry. Do not scrub or soak the incision. Diet: You may resume your previous diet. Things To Watch For: * Drainage from the incision site that occurs more than one week after your surgery. * Increased redness at the incision site. * Fever above 102 degrees Fahrenheit. * Unusual chest pain or shortness of breath. * Call [facility] at with any of the above problems Follow-Up Visit: Follow-up with Dr. Dennis's PA (Barrera Cruz) 2-3 weeks after your day of surgery. He will remove your jb and answer any questions. If you have any additional questions or concerns, Dr Dennis is usually in the office at the same time and will be available An appointment was probably scheduled when you signed-up for surgery in the office. If you have any questions call More detailed instructions as well as Frequently Asked Questions were provided in a folder by our office when you signed-up for surgery. Please review these instructions when you get home. If you have any further questions or concerns, please feel free to call the office at [phone] Pending Studies at Discharge: No Stand-Alone Forms: My [facility] [employer], Smoking Cessation Medications and DC Order Prescriptions: New tramadol 50 mg tablet 50 mg PO Q6H PRN (Reason: pain) Qty: 30 0RF cefadroxil 500 mg capsule 500 mg PO BID 10 Days Qty: 20 0RF Continued escitalopram oxalate [Lexapro] 5 mg tablet 5 mg PO QAM Qty: 90 1RF Rx Instructions: TOTAL DOSE 25 MG--TAKES WITH 20 MG TAB. calcium carbonate-vitamin D3 [Calcium 600 + D(3)] 600 mg(1,500mg) -400 unit tablet 1 tab PO BID Qty: 60 5RF Rx Instructions: Unable to verify OTC meds at this date/time. trazodone 150 mg tablet 225 mg PO HS Qty: 45 5RF Rx Instructions: TAKE 1.5 TABLETS zinc gluconate 50 mg tablet 50 mg PO QAM Qty: 30 5RF Rx Instructions: Unable to verify OTC meds at this date/time. aspirin 81 mg tablet,delayed release (DR/EC) 81 mg PO HS Qty: 30 5RF Rx Instructions: Unable to verify OTC meds at this date/time. cholecalciferol (vitamin D3) 50 mcg (2,000 unit) tablet 2,000 unit PO QAM Qty: 30 5RF Rx Instructions: Unable to verify OTC meds at this date/time. multivitamin Tablet 1 tab PO QAM Qty: 30 5RF Rx Instructions: Unable to verify OTC meds at this date/time. (DME) Oxygen Home Liters Per Minute See Rx Instructions .Route Qty: 1 0RF Rx Instructions: 2L/min O2 for use when sleeping. Pt is mouth breather, needs appropriate mask (DME) Scooter Misc See Rx Instructions .Route Qty: 1 0RF Rx Instructions: As directed. (DME) nebulizers Misc See Rx Instructions .ROUTE .MEDSUPPLY Qty: 1 0RF Rx Instructions: New nebulizer (DME) nebulizer accessories Kit See Rx Instructions .ROUTE .MEDSUPPLY Qty: 2 0RF Rx Instructions: All tubing, connectors, and accessory pieces (DME) Select Disposable Briefs Misc See Rx Instructions .Route Qty: 6 3RF Rx Instructions: Pt would like 6 packs of briefs "pull ups" every other month pramipexole 0.5 mg tablet 0.5 mg PO HS Qty: 90 1RF atorvastatin [Lipitor] 40 mg tablet 40 mg PO HS Qty: 90 1RF digoxin 125 mcg (0.125 mg) tablet 125 mcg PO QAM Qty: 90 1RF oxybutynin chloride 5 mg tablet extended release 24hr 5 mg PO QAM Qty: 90 1RF montelukast [Singulair] 10 mg tablet 10 mg PO HS Qty: 90 1RF gabapentin 400 mg capsule 400 mg PO BID Qty: 60 1RF Rx Instructions: TAKE ONE CAPSULE BY MOUTH TWICE DAILY travoprost 0.004 % drops 1 drp ophthalmic (eye) QPM Patient Comments: both eyes dextroamphetamine-amphetamine [Adderall] 10 mg tablet 10 - 20 mg PO BID Patient Comments: take 20 mg morning and 10 mg in afternoon. Rx Instructions: TAKE 20mg IN AM AND 10mg IN AFTERNOON; . Last filled 12/2023 x30 day supply Metamucil (sugar) Powder 1 tbsp PO DAILY PRN (Reason: Constipation) Rx Instructions: Unable to verify OTC meds at this date/time. magnesium oxide 400 mg magnesium tablet 400 mg PO HS Qty: 90 1RF brimonidine-timolol [Combigan] 0.2-0.5 % drops 1 drp ophthalmic (eye) BID Qty: 15 2RF Patient Comments: both eyes Eliquis 5 mg tablet 5 mg PO BID Qty: 60 11RF Rx Instructions: TAKE 1 TABLET BY MOUTH IN THE MORNING AND AT BEDTIME biotin 10 mg Tablet 10 mg PO QAM Rx Instructions: Unable to verify OTC meds at this date/time. acetaminophen [Tylenol Extra Strength] 500 mg Tablet 1,000 mg PO DIRECTED PRN (Reason: Pain) Rx Instructions: Unable to verify OTC meds at this date/time. ascorbic acid (vitamin C) [Vitamin C] 500 mg Tablet 500 mg PO QAM Rx Instructions: Unable to verify OTC meds at this date/time. guaifenesin [Mucinex] 600 mg Tablet Extended Release 12hr 600 mg PO UD PRN (Reason: Congestion) Rx Instructions: Unable to verify OTC meds at this date/time. vitamin E 800 unit Capsule 800 unit PO QAM Rx Instructions: Unable to verify OTC meds at this date/time. cyanocobalamin (vitamin B-12) 2,500 mcg tablet 2,500 mcg PO QAM Rx Instructions: Unable to verify OTC meds at this date/time. escitalopram oxalate [Lexapro] 20 mg tablet 20 mg PO QAM Rx Instructions: TOTAL DOSE 25 MG--TAKES WITH 5 MG TAB. loratadine 10 mg Tablet 10 mg PO QAM diltiazem HCl 300 mg capsule,extended release 24 hr 300 mg PO QAM albuterol sulfate [Ventolin HFA] 90 mcg/actuation HFA aerosol inhaler 2 puff Inhalation UD PRN (Reason: asthma) diclofenac sodium [Voltaren] 1 % Gel 0 g TOPICAL UD PRN (Reason: Pain) Rx Instructions: apply to single elbow, wrist or hand; for hand includes palm/fingers/back of hand albuterol sulfate [Ventolin] 2.5 mg /3 mL (0.083 %) Solution For Nebulization 0 mg INHALATION UD PRN (Reason: asthma attacks) Patient Comments: pt reports albuterol nebilizer for asthma attacks/none in yrs. lamotrigine [Lamictal] 150 mg tablet 150 mg PO HS Patient Comments: for tremors Rx Instructions: TAKE 1 TABLET BY MOUTH AT BEDTIME pantoprazole [Protonix] 40 mg tablet,delayed release (DR/EC) 40 mg PO QAM Rx Instructions: TAKE ONE TABLET BY MOUTH EVERY MORNING buspirone 5 mg tablet 5 mg PO QAM Discharge Orders: Discharge Order (Routine); Ordered 04/03/24 Ordered By: Barrera Dennis Admission Data Admit Date/Time: 03/31/24 07:54 Attending Provider: Barrera Dennis Admit Provider: Barrera Dennis Primary Care Provider: Faiza Costa Other Providers: [facility]; [facility]; Chuck Shannon
[2024-04-03 07:01] VITALS: BP 141/91; RESP 20; TEMP 97.9; O2SAT 94
--- NOTE | 2024-04-03 09:01 | Hospitalist Progress Note ---
Date of Service April 03, 2024 Assessment & Plan (1) COPD exacerbation: Plan: This is an 83 year old female with past medical history of a fib, CAD, CKD stage 3, HLD, COPD, Asthma, Allergic rhinitis, anemia who presented to the hospital on 03/29 for an elective right reverse total shoulder athroplasty with Dr. Dennis. CBC reviewed 04/02: stable, no leukocytosis BMP reviewed 04/02: stable Biofire 04/01: negative. CXR 04/01: multifocal infiltrates/edema. subsegmental atelectasis in lung bases. sm right pleural effusion. -Solumedrol 40mg IV daily in patient transition to prednisone taper on discharge. -per hx pt has not tolerated Advair well in past. Continue Incruse on discharge. -Continue O2 via nasal cannula wean when possible back to room air. - down to 2L prior to d/c. patient does use 4L overnight. (2) Atrial fibrillation: Plan: Chronic continue Diltiazem and Digoxin continue Eliquis EKG 02/2024: A fib, no change from previous EKG's (3) CKD (chronic kidney disease): Plan: BMP revealed creatinine at baseline 04/02. Baseline Creatinine 0.6 (4) Status post reverse total replacement of right shoulder: Plan: Pain medication, bowel regimen, DVT prophylaxis, diet per primary team Plan Chronic conditions: GERD: PPI Mental health: AlbinoaproSarahpar Allergic Rhinitis: Claritin Asthma: Montelukast Urinary incontinence: Oxybutynin Neuropathy: Gabapentin Patient stable for discharge from medical standpoint to report to [facility] for continued care/rehab. Admission and Anticipated Discharge Date Admission Date: March 31, 2024 Subjective Patient seen and examined this morning. Patient reports SOB improving. She is no longer wheezing. Patient denies chest pain or palpitations. Physical Exam Constitutional: WD/WN, vitals as above Respiratory: Clear to auscultation. lung sounds improved b/l Cardiovascular: irregular, no edema Psychiatric: A+Ox3, euthymic affect Results & Data Results & Data Vital Signs (Past 12 Hours) Vital Signs Temp Pulse Pulse Resp BP Pulse Ox O2 Del Method 04/03/24 08:07 93 H 04/03/24 07:00 36.6 C 90 20 141/91 H 94 Nasal Cannula 04/02/24 21:40 Nasal Cannula O2 Flow Rate 04/03/24 08:07 11/16/24 07:00 3.0 04/02/24 21:40 3 PG Care Time/CCT Total # of Minutes Spent Total Time Spent with Patient: Total time spent is greater than 50% in coordination of care (as documented) at patient's floor/unit and/or counseling patient: Coding Level of Care Code 01750 SUB INP/OBS CARE 2/35MIN Diagnoses COPD exacerbation J44.1 Paroxysmal atrial fibrillation I48.0 Atrial fibrillation type: paroxysmal CKD (chronic kidney disease) N18.9 Status post reverse total replacement of right shoulder Z96.611 (2) Atrial fibrillation Atrial fibrillation type: paroxysmal Qualified Code(s): I48.0 - Paroxysmal atrial fibrillation
[2024-04-03] MEDS: predniSONE 20 MG TAB PO STA (10:46)
[2024-04-03 11:01] VITALS: PULSE 115
== END 2024-04-03 12:02 | DRG 483 ==
LOC: 3E 09:16 → ASU 09:16

== ENCOUNTER 2024-06-14 05:24 | Inpatient (IN) ==
--- NOTE | 2024-06-14 06:57 | Emergency Department Note ---
Impression & Plan Weakness, Fall ED Provider Note NAME: MARJORIE KNOWLES AGE: 83 SEX: F : 1940 ARRIVES VIA: Ambulance INFORMANT: Patient ED PROVIDER(S): Joselo Torres DO CHIEF COMPLAINT: Weakness HPI: Patient is an 83-year-old female with a past medical history of CKD, ADHD, CAD, aortic regurg who presents to the ER for weakness. She notes that the past 3 mornings she has been unable to get out of bed as she was too weak. She has been seen and evaluated before and notes that she does okay in the afternoons when she gets home. Today she got on the edge of the bed and slid out of bed. She did not hit her head or neck. No chest pain or shortness of breath. No dizziness or lightheadedness. No focal weakness in the arms or legs. She denies any pain from sliding out of bed. She notes she feels uncomfortable going back to [facility] and believes that she does need some rehab. No dysuria, urgency, or frequency. ADDITIONAL HISTORY OBTAINED: Per HPI Chronic Medical/Social Conditions Affecting Care: Per HPI PAST MEDICAL HISTORY:See Below PAST SURGICAL HISTORY:See Below FAMILY HISTORY:See Below SOCIAL HISTORY:See Below HOME MEDICATIONS:See Below ALLERGIES:See Below VITALS:See Below PHYSICAL EXAMINATION: GENERAL: Sitting up in bed, alert, well appearing, well nourished, no distress, non-toxic EYE EXAM: normal conjunctiva. PERRL and EOM's grossly intact. OROPHARYNX: no exudate, no erythema, lips, buccal mucosa, and tongue normal and mucous membranes are moist NECK: supple, no nuchal rigidity, no adenopathy, non-tender LUNGS: Clear to auscultation. Normal chest wall mechanics HEART: no murmurs, S1 normal and S2 normal ABDOMEN: abdomen soft, non-tender, normo-active bowel sounds, no masses, no rebound or guarding. BACK: Back is symmetrical on inspection and there is no deformity, no midline tenderness, no CVA tenderness, small bruising in the mid thoracic region without pain. SKIN: no rashes and no bruising UPPER EXTREMITIES: upper extremities are grossly normal. LOWER EXTREMITIES: No pitting edema. NEURO EXAM: Normal sensorium, cranial nerves II-XII grossly intact, normal speech, no gross weakness of arms, no gross weakness of legs. MEDICAL DECISION MAKING: Patient is an 83-year-old female who presents ER for the below stated complaint. She is complaining of weakness but the past 3 mornings. She is feels unsafe at her apartment. She is unable to get out of bed and consequent called EMS again. IV was established and blood work was obtained. Labs show no significant leukocytosis or anemia. BMP with LFTs bilirubin was unremarkable. Lipase was normal. She has no pain from sliding out of bed. No other complaints. IV was established and patient was given IV fluids. Due to the weakness I discussed the case with care managers as she felt uncomfortable going home. Case was discussed with the hospitalist for further evaluation management treatment. Consults/Care Managements Discussions: Per [facility] Triage Nursing notes reviewed. Limited review of prior medical records performed Vital Signs: reviewed and remarkable for no significant abnormalities Differential diagnosis: Infection, dehydration, metabolic abnormality, hypo/hyperglycemia, electrolyte disturbance, anemia, hypoxia, cardiac sources, intracerebral event, toxicologic, neurologic, as well as other pathologies. ER treatment provided: See below Diagnostics interpreted by me include EKG and cardiac monitoring as listed below: -Cardiac Monitoring: An order was placed for continuous cardiac monitoring. The monitor shows a rate of 70 with sinus rhythm. -ECG: A-fib rate of 73 Normal axis No PVCs QTc 394 -Laboratory studies:Interpreted by me as stated above in MDM and shown below. Imaging studies: Xrays: As interpreted by me:none CTs show: none Procedures:none Critical Care: None Past Med/Surg History Problem List (Updated 06/14/24 @ 12:10 by Joselo Torres DO) Fall (Acute) Weakness (Acute) Atrial fibrillation Ambulatory dysfunction Recurrent falls Contusion of knee, right (Acute) Fall (Acute) Generalized weakness (Acute) Status post reverse total replacement of right shoulder (~03/2024) Obstructive lung disease Acromioclavicular joint arthritis Rotator cuff arthropathy of right shoulder Antiplatelet or antithrombotic long-term use Left ventricular systolic dysfunction Mitral regurgitation Aortic regurgitation Abnormal electrocardiogram Right shoulder pain Left wrist sprain Prediabetes Nonobstructive atherosclerosis of coronary artery Rotator cuff tear Subacromial bursitis Glenohumeral arthritis CAD (coronary artery disease) Anticoagulant long-term use SI (sacroiliac) joint dysfunction Nocturnal hypoxia Osteoarthritis of ankle, left CAD (coronary artery disease) Mild- luminal irregularities only on 2004 cardiac cath Esophageal dysphagia Chronic constipation with overflow incontinence ADHD Stable Chronic obstructive pulmonary disease stable Allergic rhinitis (Chronic) Anxiety disorder (Chronic) Well controlled- follows with psych Benign familial tremor (Chronic) Cervicalgia (Chronic) Controlled substance agreement broken (Chronic) Former smoker (Chronic) Fusion of spine, lumbar region (Chronic) Glaucoma (Chronic) Hyperlipidemia (Chronic) Raynaud's disease (Chronic) Rectocele (Chronic) Restless legs syndrome (Chronic) SNHL (sensorineural hearing loss) (Chronic) Solitary pulmonary nodule (Chronic) Urge incontinence of urine (Chronic) Vitamin D deficiency (Chronic) Hypomagnesemia (Chronic) CKD (chronic kidney disease) stage 3, GFR 30-59 ml/min (Chronic) Depression (Chronic) Anemia (Chronic) Asthma (Chronic) Lumbar stenosis with neurogenic claudication (Chronic) Medical History Atrial fibrillation Pre-diabetes CKD (chronic kidney disease) Nocturnal hypoxia Mitral regurgitation Left ventricular systolic dysfunction CAD (coronary artery disease) Aortic regurgitation Nerve pain Lung nodule Esophageal dysphagia Asthma COPD (chronic obstructive pulmonary disease) ADHD Anxiety Raynauds disease Acid reflux Tremor History of gastric ulcer History of sepsis (2022) History of skin cancer Right lower quadrant abdominal pain Difficult intravenous access Rectocele Neck problem Arthritis of neck Osteoarthritis History of anemia History of COVID-19 (~02/2023) Restless leg syndrome On home oxygen therapy Esophageal stenosis Incontinence of urine Hearing deficit Glaucoma Depression Hyperlipidemia History of transient cerebral ischemia Rheumatoid arthritis (02/25/13) Surgical History Status post reverse total replacement of right shoulder (~03/2024) History of lumbar fusion History of foot surgery History of foot surgery S/P foot surgery, left S/P foot surgery, left History of total hip arthroplasty H/O toe surgery History of total knee replacement S/P hardware removal S/P laparotomy S/P ankle arthrodesis History of open reduction and internal fixation (ORIF) procedure H/O elbow surgery S/P AMANDA (total abdominal hysterectomy) H/O thumb surgery History of appendectomy History of colonoscopy History of esophagogastroduodenoscopy (EGD) History of surgical removal of skin lesion History of tonsillectomy Family History Family/Other Coronary heart disease Heart disease Cancer Hypertension Brother Prostate cancer Benign familial tremor Father Benign familial tremor Mother Malignant melanoma Aunt Rheumatoid arthritis Other No family history of adverse response to anesthesia Denies family history of Ovarian cancer Myocardial infarction Breast cancer Colorectal cancer Social History Smoking Status: Former smoker Tobacco Type: Cigarettes Age Started Using Tobacco: 19 (intermittently quit throughout the years); Age Quit Using Tobacco: 81; packs per day: 0.1; Cigarettes Per Day: 2; Second Hand Exposure: No; Do You Dip or Chew Tobacco: No; Hx Alcohol Use: Yes Alcohol type: beer Alcohol Intake Frequency: Monthly or Less Alcohol Intake Frequency Comment: rarely Hx Substance Use: No Preferred Language: Persian Communication Ability: Effective Visual Impairment: No Limitations Hearing Ability: Hard of Hearing Virtual Classroom Manager Required: No Beliefs That Will Affect Care: None marital status: Current Living Situation: Alone Current Living Situation Comment: shelter apartment/independent 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al status: retired 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[employer], 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 How many Children do You have: 2 Feels Safe at Home: Yes Childhood Exposure to Second-Hand Smoke: No Diet: regular caffeine: Yes during the past year weight has: remained stable Dental Care, Regularly: No Physical Activity Frequency: Daily Seatbelt Use: always Sunscreen Use: Yes (sometimes ) Assistive Devices: None Allergies Allergies Allergy/AdvReac Type Severity Reaction Status Date / Time azithromycin Allergy Unknown throat Verified 06/14/24 08:51 burned, lost weight chocolate flavor Allergy Unknown hx rash Verified 06/14/24 08:51 fluticasone Allergy Unknown chest pain Verified 06/14/24 08:51 (from Advair) Penicillins Allergy Unknown per Verified 06/14/24 08:51 allergy test procaine Allergy Unknown novacaine Verified 06/14/24 08:51 - anaphylaxis, mouth swelling, dyspnea salmeterol Allergy Unknown chest pain Verified 06/14/24 08:51 (from Advair) moxifloxacin AdvReac Unknown N/V Verified 06/14/24 08:51 NSAIDS (Non-Steroidal AdvReac Unknown advised to Verified 06/14/24 08:51 Anti-Inflamma avoid d/t ulcer hx zolpidem AdvReac Unknown sleep Verified 06/14/24 08:51 walking Home Meds Home Medications Medication Instructions Recorded Confirmed psyllium seed (sugar) oral powder 1 tbsp PO DAILY PRN Constipation 03/03/20 06/14/24 (Metamucil (sugar) oral powder) travoprost 0.004 % eye drops 1 drp OPB QPM 05/03/21 06/14/24 dextroamphetamine-amphetamine 10 10 - 20 mg PO BID 03/07/22 06/14/24 mg tablet (Adderall) acetaminophen 500 mg tablet 1,000 mg PO Q8H PRN Pain 11/12/22 06/14/24 (Tylenol Extra Strength) ascorbic acid (vitamin C) 500 mg 500 mg PO QAM 11/12/22 06/14/24 tablet (Vitamin C) biotin 10 mg tablet 10 mg PO QAM 11/12/22 06/14/24 guaifenesin 600 mg tablet, 600 mg PO Q6H PRN Congestion 11/12/22 06/14/24 extended release 12 hr (Mucinex) cyanocobalamin (vitamin B-12) 2,500 mcg PO QAM 05/06/23 06/14/24 2,500 mcg tablet escitalopram oxalate 20 mg tablet 20 mg PO QAM 05/06/23 06/14/24 (Lexapro) vitamin E 800 unit capsule 800 unit PO QAM 05/06/23 06/14/24 buspirone 5 mg tablet 5 mg PO BID Anxiety 02/18/24 06/14/24 albuterol sulfate 2.5 mg/3 mL 3 mg inhalation TID asthma attacks 02/20/24 06/14/24 (0.083 %) solution for nebulization albuterol sulfate 90 mcg/actuation 2 puff inhalation Q6H PRN asthma 02/20/24 06/14/24 aerosol inhaler (Ventolin HFA) diclofenac sodium 1 % topical gel 2 g topical DAILY PRN Pain 02/20/24 06/14/24 loratadine 10 mg tablet 10 mg PO QAM 02/20/24 06/14/24 lamotrigine 150 mg tablet 150 mg PO HS 03/29/24 06/14/24 (Lamictal) pantoprazole 40 mg tablet,delayed 40 mg PO QAM 03/29/24 06/14/24 release (Protonix) brimonidine 0.2 %-timolol 0.5 % 1 drp OPB BID 06/14/24 06/14/24 eye drops (Combigan) umeclidinium 62.5 mcg/actuation 1 inh inhalation DAILY PRN 06/14/24 06/14/24 blister powder for inhalation Cough/Wheezing (Incruse Ellipta) Previous Rx's Medication Instructions Recorded escitalopram oxalate 5 mg tablet 5 mg PO QAM #90 tabs 03/15/20 (Lexapro) calcium 600 mg (as 1 tab PO BID #60 tabs 04/28/20 carbonate)-vitamin D3 10 mcg (400 unit) tablet (Calcium 600 + D(3)) trazodone 150 mg tablet 225 mg (1.5 x 150 mg) PO HS #45 04/28/20 tabs zinc gluconate 50 mg tablet 50 mg PO QAM #30 tabs 07/20/20 aspirin 81 mg tablet,delayed 81 mg PO HS #30 tabs 08/18/20 release cholecalciferol (vitamin D3) 50 2,000 unit PO QAM #30 tabs 09/13/20 mcg (2,000 unit) tablet multivitamin 1 tab PO QAM #30 tabs 09/13/20 Oxygen Home #1 ea 03/27/21 Scooter #1 ea 04/03/21 nebulizer accessories #2 ea 03/31/23 nebulizers #1 ea 03/31/23 diaper,brief,adult,disposable #6 ea 10/21/23 (Select Disposable Briefs) atorvastatin 40 mg tablet (Lipitor) 40 mg PO HS #90 tabs 12/04/23 digoxin 125 mcg (0.125 mg) tablet 125 mcg PO QAM #90 tabs 12/04/23 montelukast 10 mg tablet 10 mg PO HS #90 tabs 12/04/23 (Singulair) oxybutynin chloride 5 mg 5 mg PO QAM #90 tabs 12/04/23 tablet,extended release 24 hr apixaban 5 mg tablet (Eliquis) 5 mg PO BID #60 tabs 01/21/24 tramadol 50 mg tablet 50 mg PO Q6H PRN pain #30 tabs 03/30/24 diltiazem HCl 180 mg capsule,24 360 mg (2 x 180 mg) PO DAILY #180 04/26/24 hr,extended release caps gabapentin 400 mg capsule 400 mg PO BID #60 caps 05/17/24 magnesium oxide 400 mg PO HS #90 tabs 05/17/24 pramipexole 0.5 mg tablet 0.5 mg PO HS #90 tabs 05/17/24 Results & Data (ED) Vital Signs Vital Signs - 24 hr 06/14/24 05:31 06/14/24 05:43 06/14/24 06:00 Temperature 36.8 C Temperature Source Oral Pulse Rate - Lying Pulse Rate - Sitting Pulse Rate 77 70 Pulse Rate from SpO2 Sensor Respiratory Rate 14 Respiratory Effort / Characteristics Non-Labored Respiratory Depth Normal Respiratory Pattern Regular Blood Pressure - Lying Blood Pressure - Sitting Blood Pressure 112/64 121/67 Blood Pressure Mean 80 79 Pulse Oximetry 96 Oxygen Delivery Method Room Air Sepsis Recent Fever Within 48 Hours No Sepsis New/Unexplained Change in Mental Status N/A Sepsis Action Taken by Nursing No Action Required 06/14/24 06:06 06/14/24 06:36 06/14/24 07:00 Temperature Temperature Source Pulse Rate - Lying Pulse Rate - Sitting Pulse Rate 78 86 63 Pulse Rate from SpO2 Sensor 73 76 Respiratory Rate 20 19 22 Respiratory Effort / Characteristics Respiratory Depth Respiratory Pattern Blood Pressure - Lying Blood Pressure - Sitting Blood Pressure 121/67 Blood Pressure Mean 85 Pulse Oximetry 91 94 Oxygen Delivery Method Sepsis Recent Fever Within 48 Hours Sepsis New/Unexplained Change in Mental Status Sepsis Action Taken by Nursing 06/14/24 07:01 06/14/24 07:03 06/14/24 07:30 Temperature Temperature Source Pulse Rate - Lying Pulse Rate - Sitting Pulse Rate 75 Pulse Rate from SpO2 Sensor 72 Respiratory Rate 21 Respiratory Effort / Characteristics Respiratory Depth Respiratory Pattern Blood Pressure - Lying Blood Pressure - Sitting Blood Pressure 133/58 L 130/70 Blood Pressure Mean 82 94 Pulse Oximetry 95 Oxygen Delivery Method Sepsis Recent Fever Within 48 Hours Sepsis New/Unexplained Change in Mental Status Sepsis Action Taken by Nursing 06/14/24 07:39 06/14/24 07:45 06/14/24 08:00 Temperature Temperature Source Pulse Rate - Lying Pulse Rate - Sitting Pulse Rate 65 70 Pulse Rate from SpO2 Sensor 67 64 Respiratory Rate 22 24 Respiratory Effort / Characteristics Respiratory Depth Respiratory Pattern Blood Pressure - Lying Blood Pressure - Sitting Blood Pressure 127/66 Blood Pressure Mean 92 Pulse Oximetry 93 92 Oxygen Delivery Method Sepsis Recent Fever Within 48 Hours Sepsis New/Unexplained Change in Mental Status Sepsis Action Taken by Nursing 06/14/24 08:03 06/14/24 08:33 06/14/24 09:03 Temperature Temperature Source Pulse Rate - Lying Pulse Rate - Sitting Pulse Rate 65 69 61 Pulse Rate from SpO2 Sensor 77 78 67 Respiratory Rate 20 21 19 Respiratory Effort / Characteristics Respiratory Depth Respiratory Pattern Blood Pressure - Lying Blood Pressure - Sitting Blood Pressure Blood Pressure Mean Pulse Oximetry 90 92 94 Oxygen Delivery Method Sepsis Recent Fever Within 48 Hours Sepsis New/Unexplained Change in Mental Status Sepsis Action Taken by Nursing 06/14/24 09:12 06/14/24 09:24 06/14/24 09:24 Temperature Temperature Source Pulse Rate - Lying 71 Pulse Rate - Sitting 62 Pulse Rate 68 Pulse Rate from SpO2 Sensor 67 Respiratory Rate 20 Respiratory Effort / Characteristics Respiratory Depth Respiratory Pattern Blood Pressure - Lying 115/59 L Blood Pressure - Sitting 121/45 L Blood Pressure 121/45 L Blood Pressure Mean 61 Pulse Oximetry 95 Oxygen Delivery Method Sepsis Recent Fever Within 48 Hours Sepsis New/Unexplained Change in Mental Status Sepsis Action Taken by Nursing 06/14/24 09:30 06/14/24 09:30 06/14/24 09:51 Temperature Temperature Source Pulse Rate - Lying Pulse Rate - Sitting Pulse Rate 63 65 Pulse Rate from SpO2 Sensor 64 Respiratory Rate 22 Respiratory Effort / Characteristics Respiratory Depth Respiratory Pattern Blood Pressure - Lying Blood Pressure - Sitting Blood Pressure 121/57 L Blood Pressure Mean 78 Pulse Oximetry 95 Oxygen Delivery Method Sepsis Recent Fever Within 48 Hours Sepsis New/Unexplained Change in Mental Status Sepsis Action Taken by Nursing 06/14/24 10:00 06/14/24 10:00 06/14/24 10:00 Temperature Temperature Source Pulse Rate - Lying Pulse Rate - Sitting Pulse Rate 63 Pulse Rate from SpO2 Sensor 67 Respiratory Rate 18 Respiratory Effort / Characteristics Respiratory Depth Respiratory Pattern Blood Pressure - Lying Blood Pressure - Sitting Blood Pressure 136/55 L 136/55 L Blood Pressure Mean 86 86 Pulse Oximetry 94 Oxygen Delivery Method Sepsis Recent Fever Within 48 Hours Sepsis New/Unexplained Change in Mental Status Sepsis Action Taken by Nursing 06/14/24 12:01 Temperature Temperature Source Pulse Rate - Lying Pulse Rate - Sitting Pulse Rate 67 Pulse Rate from SpO2 Sensor Respiratory Rate 18 Respiratory Effort / Characteristics Respiratory Depth Respiratory Pattern Blood Pressure - Lying Blood Pressure - Sitting Blood Pressure 117/67 Blood Pressure Mean Pulse Oximetry 94 Oxygen Delivery Method Room Air Sepsis Recent Fever Within 48 Hours Sepsis New/Unexplained Change in Mental Status Sepsis Action Taken by Nursing Laboratory Data 06/14/24 06:43 06/14/24 06:43 Lab Results 06/14/24 06/14/24 06/14/24 Range/Units 06:43 08:42 08:43 WBC 10.07 (4.8-10.8) K/ul RBC 4.62 (4.20-5.40) M/uL Hgb 12.7 (12.0-16.0) g/dl Hct 40.7 (37.0-47.0) % MCV 88.1 (80.0-100.0) fL MCH 27.5 (25.0-34.0) pg MCHC 31.2 L (32.0-36.0) g/dL RDW Std Deviation 53.7 H (36.4-46.3) fL RDW Coeff of Aspen 16.6 H (11.5-14.5) % Plt Count 207 (130-400) K/uL MPV 9.4 (9.4-12.4) fL Immature Gran % (Auto) 0.8 % Neut % (Auto) 69.5 % Lymph % (Auto) 19.4 % [place]ascock % (Auto) 8.3 % Eos % (Auto) 1.6 % Baso % (Auto) 0.4 % Neut # (Auto) 7.00 H (1.40-6.50) K/uL Lymph # (Auto) 1.95 (1.20-3.40) K/uL [place]ock # (Auto) 0.84 H (0.11-0.59) K/uL Eos # (Auto) 0.16 (0.00-0.50) K/uL Baso # (Auto) 0.04 (0.00-0.20) K/uL Immature Gran # (Auto) 0.08 (0.01-0.20) K/uL Sodium 140 (136-145) mmol/L Potassium 4.0 (3.5-5.1) mmol/L Chloride 103 (98-107) mmol/L Carbon Dioxide 33 H (21-32) mmol/L Anion Gap 4 (3-11) BUN 23 (6-23) mg/dl Creatinine 0.63 (0.6-1.2) mg/dl Est Cr Clr Drug Dosing 65.4 ml/min eGFR 87.42 BUN/Creatinine Ratio 36.5 H (10-20) Glucose 145 H (70-99(Fasting)) mg/dl Calcium 10.1 (8.6-10.3) mg/dl Phosphorus 2.6 (2.5-4.9) mg/dl Magnesium 1.8 (1.7-2.4) mg/dl Total Bilirubin 0.4 (0.2-1.0) mg/dl AST 21 (13-39) U/L ALT 26 (7-52) U/L Alkaline Phosphatase 105 H (34-104) U/L Total Protein 6.1 (6.0-8.3) gm/dl Albumin 3.8 (3.4-5.0) gm/dl Globulin 2.3 L (2.5-4.0) gm/dl Albumin/Globulin Ratio 1.7 (0.9-2) Lipase 18 (11-82) U/L Digoxin 1.7 (0.8-2.0) ng/ml Adenovirus (PCR) Not Detected (NotDetected) B. pertussis DNA (PCR) Not Detected (NotDetected) B.parapertussis DNA PCR Not Detected (NotDetected) C. pneumoniae DNA (PCR) Not Detected (NotDetected) Coronavirus OC43 (PCR) Not Detected (NotDetected) Coronavirus HKU1 (PCR) Not Detected (NotDetected) Coronavirus 229E (PCR) Not Detected (NotDetected) SARS-CoV-2 (PCR) Not Detected (NotDetected) Coronavirus NL63 (PCR) Not Detected (NotDetected) Human Metapneumovir PCR Not Detected (NotDetected) Influenza Type A (PCR) Not Detected (NotDetected) Influenza Type B (PCR) Not Detected (NotDetected) M. pneumoniae (PCR) Not Detected (NotDetected) Parainfluenza 1 (PCR) Not Detected (NotDetected) Parainfluenza 2 (PCR) Not Detected (NotDetected) Parainfluenza 3 (PCR) Not Detected (NotDetected) Parainfluenza 4 (PCR) Not Detected (NotDetected) RSV (PCR) Not Detected (NotDetected) Entero/Rhino (PCR) Not Detected (NotDetected) Administered Medications Discontinued Medications Sodium Chloride (Nss) 500 mls @ 999 mls/hr IV .Q31M ONE Stop: 06/14/24 08:53 Last Infusion: 06/14/24 09:25 Dose: Infused Documented By: Admin: 06/14/24 08:40 Dose: 999 mls/hr Documented By: LEONIE Discharge Plan Visit Data Chief Complaint: Fall Stated Complaint: GROUND LEVEL FALL, ON BLOOD THINNERS ED Provider: Joselo Torres Discharge Problem: Weakness, Fall Patient Disposition: Admitted As Inpatient Discharge Instructions Interventions: ED Discharge Assessment Last Done: 06/14/24 12:01 Forms Stand Alone Forms: [employer] Prescriptions Prescriptions: No Action escitalopram oxalate [Lexapro] 5 mg tablet 5 mg PO QAM Qty: 90 1RF Rx Instructions: TOTAL DOSE 25 MG--TAKES WITH 20 MG TAB. calcium carbonate-vitamin D3 [Calcium 600 + D(3)] 600 mg(1,500mg) -400 unit tablet 1 tab PO BID Qty: 60 5RF Rx Instructions: Unable to verify OTC meds at this date/time. trazodone 150 mg tablet 225 mg PO HS Qty: 45 5RF zinc gluconate 50 mg tablet 50 mg PO QAM Qty: 30 5RF Rx Instructions: Unable to verify OTC meds at this date/time. aspirin 81 mg tablet,delayed release (DR/EC) 81 mg PO HS Qty: 30 5RF cholecalciferol (vitamin D3) 50 mcg (2,000 unit) tablet 2,000 unit PO QAM Qty: 30 5RF Rx Instructions: Unable to verify OTC meds at this date/time. multivitamin Tablet 1 tab PO QAM Qty: 30 5RF Rx Instructions: Unable to verify OTC meds at this date/time. (DME) Oxygen Home Liters Per Minute See Rx Instructions .Route Qty: 1 0RF Rx Instructions: 2L/min O2 for use when sleeping. Pt is mouth breather, needs appropriate mask (DME) Scooter Misc See Rx Instructions .Route Qty: 1 0RF Rx Instructions: As directed. (DME) nebulizers Misc See Rx Instructions .ROUTE .MEDSUPPLY Qty: 1 0RF Rx Instructions: New nebulizer (DME) nebulizer accessories Kit See Rx Instructions .ROUTE .MEDSUPPLY Qty: 2 0RF Rx Instructions: All tubing, connectors, and accessory pieces (DME) Select Disposable Briefs Misc See Rx Instructions .Route Qty: 6 3RF Rx Instructions: Pt would like 6 packs of briefs "pull ups" every other month atorvastatin [Lipitor] 40 mg tablet 40 mg PO HS Qty: 90 1RF digoxin 125 mcg (0.125 mg) tablet 125 mcg PO QAM Qty: 90 1RF oxybutynin chloride 5 mg tablet extended release 24hr 5 mg PO QAM Qty: 90 1RF montelukast [Singulair] 10 mg tablet 10 mg PO HS Qty: 90 1RF diltiazem HCl 180 mg capsule,extended release 24 hr 360 mg PO DAILY Qty: 180 3RF gabapentin 400 mg capsule 400 mg PO BID Qty: 60 1RF Rx Instructions: TAKE ONE CAPSULE BY MOUTH TWICE DAILY pramipexole 0.5 mg tablet 0.5 mg PO HS Qty: 90 1RF magnesium oxide 400 mg magnesium tablet 400 mg PO HS Qty: 90 1RF travoprost 0.004 % drops 1 drp OPB QPM Patient Comments: both eyes dextroamphetamine-amphetamine [Adderall] 10 mg tablet 10 - 20 mg PO BID Patient Comments: take 20 mg morning and 10 mg in afternoon. Rx Instructions: TAKE 20mg IN AM AND 10mg IN AFTERNOON; Metamucil (sugar) Powder 1 tbsp PO DAILY PRN (Reason: Constipation) Rx Instructions: Unable to verify OTC meds at this date/time. Eliquis 5 mg tablet 5 mg PO BID Qty: 60 11RF Rx Instructions: TAKE 1 TABLET BY MOUTH IN THE MORNING AND AT BEDTIME biotin 10 mg Tablet 10 mg PO QAM Rx Instructions: Unable to verify OTC meds at this date/time. acetaminophen [Tylenol Extra Strength] 500 mg Tablet 1,000 mg PO Q8H PRN (Reason: Pain) ascorbic acid (vitamin C) [Vitamin C] 500 mg Tablet 500 mg PO QAM Rx Instructions: Unable to verify OTC meds at this date/time. guaifenesin [Mucinex] 600 mg Tablet Extended Release 12hr 600 mg PO Q6H PRN (Reason: Congestion) vitamin E 800 unit Capsule 800 unit PO QAM Rx Instructions: Unable to verify OTC meds at this date/time. cyanocobalamin (vitamin B-12) 2,500 mcg tablet 2,500 mcg PO QAM Rx Instructions: Unable to verify OTC meds at this date/time. escitalopram oxalate [Lexapro] 20 mg tablet 20 mg PO QAM Rx Instructions: TOTAL DOSE 25 MG--TAKES WITH 5 MG TAB. loratadine 10 mg Tablet 10 mg PO QAM albuterol sulfate [Ventolin HFA] 90 mcg/actuation HFA aerosol inhaler 2 puff Inhalation Q6H PRN (Reason: asthma) diclofenac sodium 1 % Gel 2 g topical DAILY PRN (Reason: Pain) Rx Instructions: apply to single elbow, wrist or hand; for hand includes palm/fingers/back of hand albuterol sulfate 2.5 mg /3 mL (0.083 %) Solution For Nebulization 3 mg INHALATION TID Patient Comments: pt reports albuterol nebilizer for asthma attacks/none in yrs. lamotrigine [Lamictal] 150 mg tablet 150 mg PO HS Patient Comments: for tremors Rx Instructions: TAKE 1 TABLET BY MOUTH AT BEDTIME pantoprazole [Protonix] 40 mg tablet,delayed release (DR/EC) 40 mg PO QAM Rx Instructions: TAKE ONE TABLET BY MOUTH EVERY MORNING tramadol 50 mg tablet 50 mg PO Q6H PRN (Reason: pain) Qty: 30 0RF brimonidine-timolol [Combigan] 0.2-0.5 % drops 1 drp OPB BID Patient Comments: both eyes Incruse Ellipta 62.5 mcg/actuation blister with device 1 inh inhalation DAILY PRN (Reason: Cough/Wheezing) buspirone 5 mg tablet 5 mg PO BID Referrals Referrals: Faiza Costa MD [Primary Care Provider] - Discharge Problem: Fall Qualifiers: Encounter type: initial encounter Qualified Code(s): W19.XXXA - Unspecified fall, initial encounter
[2024-06-14 07:03] LABS: Basophils # (auto) 0.04 K/uL (0.00-0.20); Basophils % (auto) 0.4 %; Eosinophils # (auto) 0.16 K/uL (0.00-0.50); Eosinophils % (auto) 1.6 %; Hematocrit (blood only) 40.7 % (37.0-47.0); Hemoglobin 12.7 g/dl (12.0-16.0); Immature Granulocytes # (auto) 0.08 K/uL (0.01-0.20); Immature Granulocytes % (auto) 0.8 %; Lymphocytes # (auto) 1.95 K/uL (1.20-3.40); Lymphocytes % (auto) 19.4 %; Mean Corpuscular Hemoglobin 27.5 pg (25.0-34.0); Mean Corpuscular Hgb Conc 31.2 g/dL (32.0-36.0); Mean Corpuscular Volume 88.1 fL (80.0-100.0); Mean Platelet Volume 9.4 fL (9.4-12.4); Monocytes # (auto) 0.84 K/uL (0.11-0.59); Monocytes % (auto) 8.3 %; Neutrophils % (auto) 69.5 %; Platelet Count 207 K/uL (130-400); RDW Coefficient of Variation 16.6 % (11.5-14.5); RDW Standard Deviation 53.7 fL (36.4-46.3); Red Blood Count 4.62 M/uL (4.20-5.40); White Blood Count 10.07 K/ul (4.8-10.8)
[2024-06-14 07:12] LABS: Albumin Globulin Ratio 1.7 (0.9-2); Albumin Level 3.8 gm/dl (3.4-5.0); BUN Creatinine Ratio 36.5 (10-20); Bilirubin,Total 0.4 mg/dl (0.2-1.0); Calcium 10.1 mg/dl (8.6-10.3); Creatinine Clr Calc Pharmacy 65.4 ml/min; Globulin 2.3 gm/dl (2.5-4.0); Total Protein 6.1 gm/dl (6.0-8.3)
--- NOTE | 2024-06-14 08:04 | History & Physical Report ---
<Statement entered by Asha Dawn MD - 06/14/24 19:24> 85 y/o woman with asthma/COPD, 3L nocturnal O2, atrial fibrillation, HFpEF, CKD, CAD, MR, AR, TIA, RA Very weak since yesterday AM fell off toilet, evaluated in ED unremarkable workup, got a little better midday. This morning again very weak. Could not get out of bed. Slipped out of bed onto the floor but did not hurt self. Lives in a senior apartment and uses a cane. She was in rehab at [facility] in March following a shoulder replacement and COPD exacerbation. R shoulder has remained very painful, Dr. Dennis ordered CT. Admitted at [facility] mid- April for a facial cellulitis. PFTs 06/04 with FEV1 of 0.99, moderate airflow obstruction EKG afib, TWI/flat ST in I, II, L, F, precordial leads, unchanged from previous Labs unremarkable normal WBC, Hg 12, Electrolytes and LFT nl, Cr at baseline 0.6. Biofire negative CXR, knee xray, UA, CK yesterday negative Exam: remarkable only for mild asterixis, some jerking limb movements either severe RLS or myoclonic jerks and some intention tremor A/P: Generalized weakness Add mag and phos to labs, UA pending but was negative yesterday, respiratory Biofire, review medlist and whether recent changes, OTC meds, neuro exam. Care coord and PT/OT consults TSH normal, on B12 supp no level in system, frequent predisone check AM sis isol, consider B1, high dose trazodone check orthostatics, polypharmacy try to taper down (med rec pending but has trazodone >200 mg, oxybutynin, lamotrigine, gabapentin at too high a dose, tramadol, others with contributive effects: buspar, pramipexole, Adderall, mucinex). Check digoxin level Weakness worse in the morning and gets better as the day goes on. Suspect medication side effects especially high dose trazodone (AM gogginess, orthostasis) and gabapentin - tremor which looks like myoclonic jerks She has lost 10 pounds and 10% of her GFR since January so not metabolizing medications the same. Her OTC meds are all vitamins so thats ok. -reduced trazodone and gabapentin by 50%. She no longer has the cervical neuropathy pain so probably no longer needs the gabapentin and try to taper off CKD stage 3 with some decline in GFR since Jan 2024 R shoulder pain s/p TSA remains severe and limits her function. Consider shoulder CT if not already done as outpatient (see last ortho note) DVT ppx - on apixaban Date of Service June 14, 2024 Assessment & Plan (1) Ambulatory dysfunction: (2) Recurrent falls: (3) Atrial fibrillation: Plan Jigna is a pleasant 83-year-old female with PMH of atrial fibrillation (on Eliquis), CAD, asthma, CKD, HLD, glaucoma, and depression. She presented on the morning of 06/14 after sustaining a ground-level fall when she got out of bed. Patient reports that she attempted to stand up, and her legs gave out on her. No dizziness or lightheadedness prior to fall. No head strike. No LOC. Patient reports this is now the third day in a row that this has happened. She wakes up, attempt to get up but feels weak, then "slips" out of bed and onto the floor. The patient reports no pain or injuries with these events; she always lands directly on her buttocks. #Ambulatory dysfunction Imaging on 06/13 (the day prior to admission) did not reveal any acute fractures or abnormalities CK level on 06/13 was low at 14, and patient denies being on the ground for an extended period of time UA negative on 06/13 BioFire negative Orthostatic vitals ordered, pending ? Medications contributory (tramadol, trazodone, gabapentin, etc.) Hold PRN tramadol for now Trazadone reduced from 225mg --> 150mg p.o. HS PT/OT evaluations appreciated Fall precautions Acetaminophen as needed for pain/fever Case management consult appreciated as patient will likely require rehab upon discharge #Recurrent falls Treatment (as above) #Atrial fibrillation Rate controlled No head strike, injuries, or LOC with her falls Okay to Eliquis Continue digoxin A.m. digoxin level #Anxiety and depression Escitalopram 25 mg --> 20mg daily Recommend 20mg max dose moving forward Continue BuSpar Disposition: Admit to MedSurg DNR/DNI Regular diet VTE PPx: Eliquis History of Present Illness Chief Complaint: Ambulatory dysfunction Primary Care Provider: Faiza Costa MD Jigna is a pleasant 83-year-old female with PMH of atrial fibrillation (on Eliquis), CAD, asthma, CKD, HLD, glaucoma, and depression. She presented on the morning of 06/14 after sustaining a ground-level fall when she got out of bed. Patient reports that she stood up and her legs gave out on her. No dizziness or lightheadedness prior to fall. No head strike. No LOC. Patient reports this is now the third day in a row that this has happened. She wakes up, attempt to get up but feels weak, then "slips" out of bed and onto the floor. The patient reports no pain or injuries with these events; she always lands directly on her buttocks. Patient lives alone in a senior apartment with her cat. She does not use any ambulatory assist devices in her apartment, but does have a walker that she was attempting to use this morning. She also has a quad cane that she uses outdoors. The first time she fell on Monday 06/12, she was unable to get up so she called EMS, and they helped her up, and she was able to ambulate on her own throughout the rest the day. The next 2 mornings, she once again got up, but could not get up on her own. She reports she was never on the floor for very long, as she always managed to call the ambulance after coming down. Patient has had a gradual decline ever since her right shoulder replacement in March. She denies any pain in her legs or hips. She does have chronic lower back pain, but she attributes this to arthritis. Patient took her regular morning medicine today, including her Eliquis. She does manage her own medicine at home, but does have help from [facility]. No recent change in medications. Patient was around a sick friend 4 days ago, who believes she might of had the flu (her friend did not do any formal testing). While the patient does not endorse any respiratory symptoms, she has felt weaker over the past several days. Patient is a former smoker, but quit in 2019. She denies any recent alcohol use. 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 Patient's vitals are stable at time of admission. ED course: NSS 500 mL IV ROS: Patient endorses generalized weakness. Patient denies fever, chills, night-sweats, dizziness, lightheadedness, h eadaches, changes in vision, chest pain, chest palpitations, SOB, cough, abdominal pain, N/V/D, changes in urinary/bowel habits, burning with urination, blood in the urine/stool, or pain/numbness/tingling in the legs. Allergies Allergy/AdvReac Type Severity Reaction Status Date / Time azithromycin Allergy Unknown throat Verified 06/14/24 08:51 burned, lost weight chocolate flavor Allergy Unknown hx rash Verified 06/14/24 08:51 fluticasone Allergy Unknown chest pain Verified 06/14/24 08:51 (from [facility]) Penicillins Allergy Unknown per Verified 06/14/24 08:51 allergy test procaine Allergy Unknown novacaine Verified 06/14/24 08:51 - anaphylaxis, mouth swelling, dyspnea salmeterol Allergy Unknown chest pain Verified 06/14/24 08:51 (from [facility]) moxifloxacin AdvReac Unknown N/V Verified 06/14/24 08:51 NSAIDS (Non-Steroidal AdvReac Unknown advised to Verified 06/14/24 08:51 Anti-Inflamma avoid d/t ulcer hx zolpidem AdvReac Unknown sleep Verified 06/14/24 08:51 walking Home Medications Medication Instructions Recorded Confirmed Type psyllium seed (sugar) oral powder 1 tbsp PO DAILY PRN Constipation 03/03/20 06/14/24 History (Metamucil (sugar) oral powder) escitalopram oxalate 5 mg tablet 5 mg PO QAM #90 tabs 03/15/20 06/14/24 Rx (Lexapro) calcium 600 mg (as 1 tab PO BID #60 tabs 04/28/20 06/14/24 Rx carbonate)-vitamin D3 10 mcg (400 unit) tablet (Calcium 600 + D(3)) trazodone 150 mg tablet 225 mg (1.5 x 150 mg) PO HS #45 04/28/20 06/14/24 Rx tabs zinc gluconate 50 mg tablet 50 mg PO QAM #30 tabs 07/20/20 06/14/24 Rx aspirin 81 mg tablet,delayed 81 mg PO HS #30 tabs 08/18/20 06/14/24 Rx release cholecalciferol (vitamin D3) 50 2,000 unit PO QAM #30 tabs 09/13/20 06/14/24 Rx mcg (2,000 unit) tablet multivitamin 1 tab PO QAM #30 tabs 09/13/20 06/14/24 Rx Oxygen Home #1 ea 03/27/21 05/28/24 Rx Scooter #1 ea 04/03/21 05/28/24 Rx travoprost 0.004 % eye drops 1 drp OPB QPM 05/03/21 06/14/24 History dextroamphetamine-amphetamine 10 10 - 20 mg PO BID 03/07/22 06/14/24 History mg tablet (Adderall) acetaminophen 500 mg tablet 1,000 mg PO Q8H PRN Pain 11/12/22 06/14/24 History (Tylenol Extra Strength) ascorbic acid (vitamin C) 500 mg 500 mg PO QAM 11/12/22 06/14/24 History tablet (Vitamin C) biotin 10 mg tablet 10 mg PO QAM 11/12/22 06/14/24 History guaifenesin 600 mg tablet, 600 mg PO Q6H PRN Congestion 11/12/22 06/14/24 History extended release 12 hr (Mucinex) nebulizer accessories #2 ea 03/31/23 05/28/24 Rx nebulizers #1 ea 03/31/23 05/28/24 Rx cyanocobalamin (vitamin B-12) 2,500 mcg PO QAM 05/06/23 06/14/24 History 2,500 mcg tablet escitalopram oxalate 20 mg tablet 20 mg PO QAM 05/06/23 06/14/24 History (Lexapro) vitamin E 800 unit capsule 800 unit PO QAM 05/06/23 06/14/24 History diaper,brief,adult,disposable #6 ea 10/21/23 05/28/24 Rx (Select Disposable Briefs) atorvastatin 40 mg tablet (Lipitor) 40 mg PO HS #90 tabs 12/04/23 06/14/24 Rx digoxin 125 mcg (0.125 mg) tablet 125 mcg PO QAM #90 tabs 12/04/23 06/14/24 Rx montelukast 10 mg tablet 10 mg PO HS #90 tabs 12/04/23 06/14/24 Rx (Singulair) oxybutynin chloride 5 mg 5 mg PO QAM #90 tabs 12/04/23 06/14/24 Rx tablet,extended release 24 hr apixaban 5 mg tablet (Eliquis) 5 mg PO BID #60 tabs 01/21/24 06/14/24 Rx buspirone 5 mg tablet 5 mg PO BID Anxiety 02/18/24 06/14/24 History albuterol sulfate 2.5 mg/3 mL 3 mg inhalation TID asthma attacks 02/20/24 06/14/24 History (0.083 %) solution for nebulization albuterol sulfate 90 mcg/actuation 2 puff inhalation Q6H PRN asthma 02/20/24 06/14/24 History aerosol inhaler (Ventolin HFA) diclofenac sodium 1 % topical gel 2 g topical DAILY PRN Pain 02/20/24 06/14/24 History loratadine 10 mg tablet 10 mg PO QAM 02/20/24 06/14/24 History lamotrigine 150 mg tablet 150 mg PO HS 03/29/24 06/14/24 History (Lamictal) pantoprazole 40 mg tablet,delayed 40 mg PO QAM 03/29/24 06/14/24 History release (Protonix) tramadol 50 mg tablet 50 mg PO Q6H PRN pain #30 tabs 03/30/24 06/14/24 Rx diltiazem HCl 180 mg capsule,24 360 mg (2 x 180 mg) PO DAILY #180 04/26/24 06/14/24 Rx hr,extended release caps gabapentin 400 mg capsule 400 mg PO BID #60 caps 05/17/24 06/14/24 Rx magnesium oxide 400 mg PO HS #90 tabs 05/17/24 06/14/24 Rx pramipexole 0.5 mg tablet 0.5 mg PO HS #90 tabs 05/17/24 06/14/24 Rx brimonidine 0.2 %-timolol 0.5 % 1 drp OPB BID 06/14/24 06/14/24 History eye drops (Combigan) umeclidinium 62.5 mcg/actuation 1 inh inhalation DAILY PRN 06/14/24 06/14/24 History blister powder for inhalation Cough/Wheezing (Incruse Ellipta) Past Med/Surg History Problem List (Updated 06/14/24 @ 12:10 by Joselo Torres DO) Fall (Acute) Weakness (Acute) Atrial fibrillation Ambulatory dysfunction Recurrent falls Contusion of knee, right (Acute) Fall (Acute) Generalized weakness (Acute) Status post reverse total replacement of right shoulder (~03/2024) Obstructive lung disease Acromioclavicular joint arthritis Rotator cuff arthropathy of right shoulder Antiplatelet or antithrombotic long-term use Left ventricular systolic dysfunction Mitral regurgitation Aortic regurgitation Abnormal electrocardiogram Right shoulder pain Left wrist sprain Prediabetes Nonobstructive atherosclerosis of coronary artery Rotator cuff tear Subacromial bursitis Glenohumeral arthritis CAD (coronary artery disease) Anticoagulant long-term use SI (sacroiliac) joint dysfunction Nocturnal hypoxia Osteoarthritis of ankle, left CAD (coronary artery disease) Mild- luminal irregularities only on 2003 cardiac cath Esophageal dysphagia Chronic constipation with overflow incontinence ADHD Stable Chronic obstructive pulmonary disease stable Allergic rhinitis (Chronic) Anxiety disorder (Chronic) Well controlled- follows with psych Benign familial tremor (Chronic) Cervicalgia (Chronic) Controlled substance agreement broken (Chronic) Former smoker (Chronic) Fusion of spine, lumbar region (Chronic) Glaucoma (Chronic) Hyperlipidemia (Chronic) Raynaud's disease (Chronic) Rectocele (Chronic) Restless legs syndrome (Chronic) SNHL (sensorineural hearing loss) (Chronic) Solitary pulmonary nodule (Chronic) Urge incontinence of urine (Chronic) Vitamin D deficiency (Chronic) Hypomagnesemia (Chronic) CKD (chronic kidney disease) stage 3, GFR 30-59 ml/min (Chronic) Depression (Chronic) Anemia (Chronic) Asthma (Chronic) Lumbar stenosis with neurogenic claudication (Chronic) Medical History Atrial fibrillation Pre-diabetes CKD (chronic kidney disease) Nocturnal hypoxia Mitral regurgitation Left ventricular systolic dysfunction CAD (coronary artery disease) Aortic regurgitation Nerve pain Lung nodule Esophageal dysphagia Asthma COPD (chronic obstructive pulmonary disease) ADHD Anxiety Raynauds disease Acid reflux Tremor History of gastric ulcer History of sepsis (2022) History of skin cancer Right lower quadrant abdominal pain Difficult intravenous access Rectocele Neck problem Arthritis of neck Osteoarthritis History of anemia History of COVID-19 (~02/2023) Restless leg syndrome On home oxygen therapy Esophageal stenosis Incontinence of urine Hearing deficit Glaucoma Depression Hyperlipidemia History of transient cerebral ischemia Rheumatoid arthritis (02/25/13) Surgical History Status post reverse total replacement of right shoulder (~03/2024) History of lumbar fusion History of foot surgery History of foot surgery S/P foot surgery, left S/P foot surgery, left History of total hip arthroplasty H/O toe surgery History of total knee replacement S/P hardware removal S/P laparotomy S/P ankle arthrodesis History of open reduction and internal fixation (ORIF) procedure H/O elbow surgery S/P AMANDA (total abdominal hysterectomy) H/O thumb surgery History of appendectomy History of colonoscopy History of esophagogastroduodenoscopy (EGD) History of surgical removal of skin lesion History of tonsillectomy Family History Family/Other Coronary heart disease Heart disease Cancer Hypertension Brother Prostate cancer Benign familial tremor Father Benign familial tremor Mother Malignant melanoma Aunt Rheumatoid arthritis Other No family history of adverse response to anesthesia Denies family history of Ovarian cancer Myocardial infarction Breast cancer Colorectal cancer Social History Smoking Status: Former smoker Tobacco Type: Cigarettes Age Started Using Tobacco: 19 (intermittently quit throughout the years); Age Quit Using Tobacco: 81; packs per day: 0.1; Cigarettes Per Day: 2; Second Hand Exposure: No; Do You Dip or Chew Tobacco: No; Tobacco Cessation Education Requested by Patient: No Hx Alcohol Use: Yes Alcohol type: beer Alcohol Intake Frequency: Monthly or Less Alcohol Intake Frequency Comment: rarely Hx Substance Use: No Preferred Language: Turkish Communication Ability: Effective Visual Impairment: No Limitations Hearing Ability: Hard of Hearing Explosive Ordnance Manager Required: No Beliefs That Will Affect Care: None marital status: Current Living Situation: Alone Current Living Situation Comment: fdc apartment/independent 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al status: retired 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: 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[employer], 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 How many Children do You have: 2 Other Information That Helps Us Care for You: No Feels Safe at Home: Yes Childhood Exposure to Second-Hand Smoke: No Diet: regular caffeine: Yes during the past year weight has: remained stable Dental Care, Regularly: No Physical Activity Frequency: Daily Seatbelt Use: always Sunscreen Use: Yes (sometimes ) Assistive Devices: Cane Review of Systems Review of Systems: See HPI above Physical Exam Physical Exam: General: no acute distress; pleasant affect; non-toxic appearing; frail appearing; cooperative; SpO2 92% on RA HEENT: normocephalic, atraumatic; no scleral icterus; PERRLA; vision and hearing intact Neck: supple; trachea midline Skin: warm, dry without signs of tenting; no cyanosis; no rashes, lesions, or erythema noted CV: chest wall NTP; irregularly irregular rhythm; S1/S2 normal; no murmurs/rubs/gallops; pulses intact and symmetric at radial, DP, and PT Lungs: no acute respiratory distress; symmetrical chest wall expansion; clear breath sounds across all lung aguilar w/o adventitious sounds; no wheezing ABD: Soft, NTP; BS present; no rebound/guarding; no distention MSK: no tics or fasciculations; no edema noted in the LEs b/l, nonerythematous; patient demonstrates ability to wiggle toes; 3/5 strength in the lower extremities bilaterally when lifting legs while supine Neuro: A&Ox3; normal mood and affect; fluent speech; no focal deficits; she reports sensation intact and symmetric in the lower extremities bilaterally Results & Data Results & Data Vital Signs (Past 12 Hours) Vital Signs Temp Pulse Resp BP Pulse Ox O2 Del Method 06/14/24 06:36 86 19 06/14/24 06:06 78 20 121/67 91 06/14/24 06:00 121/67 06/14/24 05:43 70 06/14/24 05:31 36.8 C 77 14 112/64 96 Room Air Laboratory Results Abnormal lab results 06/14/24 Range/Units 06:43 MCHC 31.2 L (32.0-36.0) g/dL RDW Std Deviation 53.7 H (36.4-46.3) fL RDW Coeff of [place] 16.6 H (11.5-14.5) % Neut # (Auto) 7.00 H (1.40-6.50) K/uL [place] # (Auto) 0.84 H (0.11-0.59) K/uL Carbon Dioxide 33 H (21-32) mmol/L BUN/Creatinine Ratio 36.5 H (10-20) Glucose 145 H (70-99(Fasting)) mg/dl Alkaline Phosphatase 105 H (34-104) U/L Globulin 2.3 L (2.5-4.0) gm/dl ECG Additional Comments: ECG revealed atrial fibrillation at 73 bpm; QTc 394 Code Status & VTE Plan Code Status DNR/DNI VTE Prophylaxis Plan VTE Prophylaxis will be ordered: Yes PG Care Time/CCT Total # of Minutes Spent Total Time Spent with Patient: Total time spent is greater than 50% in coordination of care (as documented) at patient's floor/unit and/or counseling patient: Coding [place] [address] INT INP/OBS CARE 2/55MIN Patient Type Established History Comprehensive Exam Comprehensive Medical Decision Making Moderate Complexity Diagnoses Ambulatory dysfunction R26.2 Recurrent falls R29.6 Paroxysmal atrial fibrillation I48.0 Atrial fibrillation type: paroxysmal (3) Atrial fibrillation Atrial fibrillation type: paroxysmal Qualified Code(s): I48.0 - Paroxysmal atrial fibrillation
[2024-06-14] MEDS: SODIUM CHLORIDE 0.9% 500 ML IV ONE (08:40)
[2024-06-14 08:45] LABS: Magnesium 1.8 mg/dl (1.7-2.4); Phosphorus 2.6 mg/dl (2.5-4.9)
[2024-06-14 09:41] LABS: Adenovirus PCR Not Detected (NotDetected); Bordetella parapertussis PCR Not Detected (NotDetected); Bordetella pertussis PCR Not Detected (NotDetected); Chlamydia pneumoniae PCR Not Detected (NotDetected); Coronavirus 229E PCR Not Detected (NotDetected); Coronavirus CoV-2 (COVID19)PCR Not Detected (NotDetected); Coronavirus HKU1 PCR Not Detected (NotDetected); Coronavirus NL63 PCR Not Detected (NotDetected); Coronavirus OC43PCR Not Detected (NotDetected); Human Metapneumovirus PCR Not Detected (NotDetected); Influenza A PCR Not Detected (NotDetected); Influenza B PCR Not Detected (NotDetected); Mycoplasma pneumoniae PCR Not Detected (NotDetected); Parainfluenza Virus 1 PCR Not Detected (NotDetected); Parainfluenza Virus 2 PCR Not Detected (NotDetected); Parainfluenza Virus 3 PCR Not Detected (NotDetected); Parainfluenza Virus 4 PCR Not Detected (NotDetected); Respiratory Syncytial VirusPCR Not Detected (NotDetected); Rhinovirus/Enterovirus PCR Not Detected (NotDetected)
--- NOTE | 2024-06-14 11:44 | Electrocardiogram Report ---
Test Reason : Blood Pressure : */* mmHG Vent. Rate : 73 BPM Atrial Rate : * BPM P-R Int : * ms QRS Dur : 94 ms QT Int : 358 ms P-R-T Axes : * 55 167 degrees QTcB Int : 394 ms Atrial fibrillation Nonspecific ST and T wave abnormality Abnormal ECG When compared with ECG of 13-Jun-2024 10:02, No significant change was found Confirmed by Camron Estrada ([id number]) on 06/14/2024 11:43:40 AM Referred By: Confirmed By: Camron Estrada
[2024-06-14] MEDS ORDERED: UMECLIDINIUM BROMIDE 62.5MCG/BLISTER 7 PUFFS/INHALER INH PRN (12:26)
[2024-06-14] MEDS ORDERED: ALBUTEROL HFA 8 GM INHALER INH PRN (12:26)
[2024-06-14] MEDS ORDERED: MELATONIN 3 MG TAB PO PRN (12:26)
[2024-06-14] MEDS: ALBUTEROL 0.083% NEBU SOLN 3 ML VIAL INH SCH (13:32)
[2024-06-14] MEDS: DEXTROAMPHETAMINE/AMPHETAMINE IR 10 MG TAB PO SCH (14:00)
[2024-06-14 17:16] LABS: Appearance Urine Clear (Clear); Bilirubin Urine Negative (Negative); Blood Urine Negative (Negative); Color Urine Yellow; Glucose Urine UA Negative (Negative); Ketones Urine Negative (Negative); Leukocyte Esterase Urine Negative (Negative); Nitrite Urine Negative (Negative); Protein Urine Negative (Negative); Specific Gravity Urine 1.015 (1.000-1.030); Urobilinogen Urine Negative (Negative)
[2024-06-14] MEDS: TRAVOPROST Z 0.004% OPH SOLN 2.5 ML BTL OPB SCH (20:24)
[2024-06-14] MEDS: BRIMONIDINE TARTRATE 0.2% 5ML OP SCH (20:24)
[2024-06-14] MEDS: ASPIRIN 81 MG ECTAB PO SCH (20:25)
[2024-06-14] MEDS: APIXABAN 5 MG TABLET PO SCH (20:25)
[2024-06-14] MEDS: TIMOLOL MALEATE 0.5% OP SOLN 5 ML BTL OP SCH (20:25)
[2024-06-14] MEDS: ATORVASTATIN 40 MG TAB PO SCH (20:25)
[2024-06-14] MEDS: GABAPENTIN 100 MG CAP PO SCH (20:26)
[2024-06-14] MEDS: busPIRone 5 MG TAB PO SCH (20:26)
[2024-06-14] MEDS: lamoTRIgine 100 MG TAB PO SCH (20:27)
[2024-06-14] MEDS: MONTELUKAST SODIUM 10 MG TABLET PO SCH (20:28)
[2024-06-14] MEDS: MAGNESIUM OXIDE 400 MG TAB PO SCH (20:28)
[2024-06-14] MEDS: traZODone HCL 50 MG TAB PO SCH (20:29)
[2024-06-14] MEDS: PRAMIPEXOLE DIHYDROCHLO 0.5 MG TAB PO SCH (20:29)
[2024-06-14] MEDS: ACETAMINOPHEN 325 MG TAB PO PRN (20:36)
[2024-06-14] MEDS ORDERED: GABAPENTIN 400 MG CAP PO SCH (21:00)
[2024-06-15 08:03] LABS: Hematocrit (blood only) 39.5 % (37.0-47.0); Hemoglobin 12.7 g/dl (12.0-16.0); Mean Corpuscular Hemoglobin 28.6 pg (25.0-34.0); Mean Corpuscular Hgb Conc 32.2 g/dL (32.0-36.0); Mean Platelet Volume 9.7 fL (9.4-12.4); Platelet Count 226 K/uL (130-400); RDW Coefficient of Variation 16.4 % (11.5-14.5); RDW Standard Deviation 53.6 fL (36.4-46.3); Red Blood Count 4.44 M/uL (4.20-5.40)
[2024-06-15] MEDS: dilTIAZem HCL 180 MG CAPCR PO SCH (08:22)
[2024-06-15 08:23] LABS: BUN Creatinine Ratio 33.3 (10-20); Calcium 10.4 mg/dl (8.6-10.3); Creatinine Clr Calc Pharmacy 68.6 ml/min; Potassium 4.9 mmol/L (3.5-5.1)
[2024-06-15] MEDS: LORATADINE 10 MG TAB PO SCH (08:23)
[2024-06-15] MEDS: DIGOXIN 0.125 MG TAB PO SCH (08:23)
[2024-06-15] MEDS: OXYBUTYNIN CHLORIDE XL 5 MG TABCR PO SCH (08:23)
[2024-06-15] MEDS: PANTOprazole 40 MG TAB PO SCH (08:23)
[2024-06-15] MEDS: DEXTROAMPHETAMINE/AMPHETAMINE IR 20 MG TAB PO SCH (08:35)
[2024-06-15] MEDS: ESCITALOPRAM OXALATE 20 MG TAB PO SCH (08:35)
[2024-06-15] MEDS: DEXTROAMPHETAMINE/AMPHETAMINE IR 10 MG TAB PO SCH (08:43)
[2024-06-15] MEDS ORDERED: ESCITALOPRAM OXALATE 10 MG TAB PO SCH (09:00)
[2024-06-15] MEDS ORDERED: ALBUTEROL 0.083% NEBU SOLN 3 ML VIAL INH PRN (10:13)
[2024-06-15] MEDS: SODIUM CHLORIDE 0.9% 500 ML IV ONE (11:01)
--- NOTE | 2024-06-15 12:25 | CT Scan Report ---
CT shoulder RT wo con CLINICAL HISTORY: recent total shoulder replacement, pain; fracture? COMPARISON STUDY: X-ray 03/29/2024. FINDINGS: Right shoulder prosthesis shows no hardware complication. There is an acute minimally displ aced fracture at the base of the acromion. No other fracture or dislocation seen. No significant soft tissue hematoma. 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 IMPRESSION: Acute fracture at the base of the acromion. ACT 112: Negative or not required by law. Electronically signed by: Solomon Saavedra M.D. 06/15/2024 12:23 PM
[2024-06-15] MEDS: dexAMETHasone 6 MG in SYRINGE 0 ML IV ONE (13:13)
--- NOTE | 2024-06-15 16:56 | Hospitalist Progress Note ---
Date of Service June 15, 2024 Assessment & Plan (1) Ambulatory dysfunction: Plan: 83-year-old female with atrial fibrillation (on Eliquis), CAD, asthma, CKD, glaucoma, and depression. She presented on the morning of 06/14 after sustaining a ground-level fall when she got out of bed. Patient reports that she attempted to stand up, and her legs gave out on her. No dizziness or lightheadedness prior to fall. No head strike. No LOC. Patient reports this is now the third day in a row that this has happened. She wakes up, attempt to get up but feels weak, then "slips" out of bed and onto the floor. orthostasis along with possible adrenal insufficiency to blame polypharmacy could be playing a role as well s/p IV fluids today along with a dose of dexamethasone 6mg IV x 1 given plan cosyntropin stim test tomorrow am NPO after 2200 tonight for such PT, OT evals agree with reduction in trazodone & gabapentin doses (2) Recurrent falls: Plan: see #1 above PT, OT evals (3) Atrial fibrillation: Plan: cont digoxin daily dig level wnl cont diltiazem daily cont Eliquis 5mg BID (4) Fracture of acromion of scapula: Plan: right likely insufficiency fracture made Dr Dennis aware of this fracture as patient is s/p right total shoulder replacement 03/29/24 (5) Nocturnal hypoxia: Plan: cont NC O2 as at home (6) ADHD: Plan: cont usual meds (7) Orthostatic hypotension: Plan: pt's orthostatic BPs are positive today gave saline bolus 500cc x 1 in light of extremely low cortisol level (<1) gave dexamethasone 6mg IV x 1 (which will not interfere with cosyntropin stim test assay) plan formal stim test in am tomorrow suspect secondary adrenal insufficiency in light of numerous courses of IV/PO steroids, intra-articular and bursal steroid injections (had b/l shoulder injections earlier this month at ortho visit), etc. check ACTH level in am in addition to cortisol stim test (8) Hypercalcemia: Plan: mild elevation goes back to at least 2019 intermittently previous intact PTH level in 2022 was wnl check a 25-OH vit D level in am tomorrow Admission and Anticipated Discharge Date Admission Date: June 14, 2024 Subjective patient sitting comfortably in bed playing a game on her tablet reports ongoing right shoulder pain since her surgery in March we discussed CT right shoulder results showing acromion fracture we discussed the +orthostatics and its role in her weakness along with falls/sliding to the floor discussed the low cortisol level and its role in the orthostasis of note - she has had several rounds of prednisone, dexamethasone, as well as intra-articular injections of steroid over the last 6 months per records Review of Systems Review of Systems: cv - no chest pain pulm - no dyspnea GI - no abd pain or N/V Physical Exam Physical Exam: gen - NAD, sitting comfortably in bed neck - no JVD mouth - MMM heart - irregularly irregular, s1 s2 lungs - CTA b/l abd - soft NT ND BS+ musculo - right shoulder - incision anterior aspect of joint well-healed; tender over acromial region; no effusion or gross abnormality ext - no edema, pulses b/l feet 2+ Results & Data Results & Data Vital Signs (Past 12 Hours) Vital Signs Temp Pulse Pulse Resp BP Pulse Ox O2 Del Method 06/15/24 14:32 37.0 C 66 16 135/62 95 Room Air 06/15/24 08:23 70 06/15/24 08:00 Room Air 06/15/24 06:58 36.3 C L 70 18 128/72 95 Room Air Laboratory Results Laboratory Results - last 24 hr 06/15/24 07:37 WBC 11.10 H RBC 4.44 Hgb 12.7 Hct 39.5 MCV 89.0 MCH 28.6 MCHC 32.2 RDW Std Deviation 53.6 H RDW Coeff of Aspen 16.4 H Plt Count 226 MPV 9.7 Sodium 138 Potassium 4.9 D Chloride 103 Carbon Dioxide 31 Anion Gap 4 BUN 20 Creatinine 0.60 Est Cr Clr Drug Dosing 68.6 eGFR 88.45 BUN/Creatinine Ratio 33.3 H Glucose 116 H Calcium 10.4 H Cortisol AM Sample 0.87 L Digoxin 0.8 PG Care Time/CCT Total # of Minutes Spent Total Time Spent with Patient: Total time spent is greater than 50% in coordination of care (as documented) at patient's floor/unit and/or counseling patient: Coding Level of Care Code 91156 SUB INP/OBS CARE 3/50MIN Diagnoses Ambulatory dysfunction R26.2 Recurrent falls R29.6 Paroxysmal atrial fibrillation I48.0 Atrial fibrillation type: paroxysmal Fracture of acromion of scapula S42.123A Nocturnal hypoxia G47.34 ADHD F90.9 Orthostatic hypotension I95.1 Hypercalcemia E83.52 (3) Atrial fibrillation Atrial fibrillation type: paroxysmal Qualified Code(s): I48.0 - Paroxysmal atrial fibrillation
[2024-06-16] MEDS: COSYNTROPIN 250 MCG in SYRINGE 4 ML IV ONE (07:44)
[2024-06-16 08:02] LABS: Calcium 10.4 mg/dl (8.6-10.3); Creatinine Clr Calc Pharmacy 76.2 ml/min; Potassium 3.9 mmol/L (3.5-5.1)
[2024-06-16] MEDS: HYDROCORTISONE 10 MG TAB PO SCH (12:17)
[2024-06-16] MEDS ORDERED: Nursing to Pharmacy Communication SCH (14:00)
--- NOTE | 2024-06-16 15:01 | Hospitalist Progress Note ---
Date of Service June 16, 2024 Assessment & Plan (1) Adrenal insufficiency: Plan: 83-year-old female with atrial fibrillation (on Eliquis), CAD, asthma, CKD, glaucoma, and depression. She presented on the morning of 06/14 after sustaining a ground-level fall when she got out of bed. Patient reports that she attempted to stand up, and her legs gave out on her. No dizziness or lightheadedness prior to fall. No head strike. No LOC. Patient reports this is now the third day in a row that this has happened. She wakes up, attempt to get up but feels weak, then "slips" out of bed and onto the floor. random cortisol level was <1 cosyntropin stim test - did not pass, only stimmed to 10 likely secondary adrenal insufficiency she has had numerous exposures to exogenous steroid - corticosteroid injections for various joints, prednisone PO, dexamethasone IV around the time of R shoulder surgery, etc. this caused weakness, fatigue, orthostasis, etc. likely contributed to increased fall risk orthostatic BPs improved energy improved s/p dexamethasone yesterday will start hydrocortisone 20mg BID today plan to taper slowly down to 15mg qam and 5mg qafternoon send to [facility] Endo post-d/c for management ACTH level sent/pending (2) Orthostatic hypotension: Plan: likely 2nd to #1 above improved orthostatic BPs today (3) Ambulatory dysfunction: Plan: orthostasis along with adrenal insufficiency to blame polypharmacy could have played a role as well s/p IV fluids along stress dose steroids have helped her symptoms PT, OT evals appreciated cont with reduced doses of trazodone & gabapentin (4) Recurrent falls: Plan: see above PT, OT both advising rehab but patient declining such (5) Atrial fibrillation: Plan: cont digoxin daily dig level wnl cont diltiazem daily cont Eliquis 5mg BID (6) Fracture of acromion of scapula: Plan: right likely insufficiency fracture (suspect fracture is somewhat old as she has been having severe pain for many weeks, even before the falls at home) appreciate Dr Dennis's consultation 25-OH vit D level wnl sling x 6 weeks pain meds prn (7) Nocturnal hypoxia: Plan: cont NC O2 as at home (8) ADHD: Plan: cont usual meds (9) Hypercalcemia: Plan: mild elevation goes back to at least 2019 intermittently previous intact PTH level in 2022 was wnl 25-OH vit D level wnl recent phos level wnl recheck an intact PTH level in am will recommend she stop calcium supplementation Plan updated pt's daughter extensively by phone this evening, 06/16 hopeful for d/c home tomorrow Admission and Anticipated Discharge Date Admission Date: June 14, 2024 Subjective patient feeling well only complaint is that of right shoulder pain denies dizziness, lightheadedness weakness improved no near falls or pre-syncope eating ok we discussed inpatient rehab - declining such, wants to return home with home PT/OT Review of Systems Review of Systems: cv - no chest pain pulm - no dyspnea GI - no abd pain; +stool Physical Exam Physical Exam: gen - NAD, sitting at side of bed neck - no JVD mouth - MMM heart - irregularly irregular, s1 s2, no murmur lungs - CTA b/l abd - soft NT ND BS+ musculo - right shoulder - tender over acromial region to palpation; no effusion or gross abnormality ext - no edema, pulses b/l feet 2+ Results & Data Results & Data Vital Signs (Past 12 Hours) Vital Signs Temp Pulse Pulse Resp BP Pulse Ox O2 Del Method 06/16/24 14:10 37.1 C 18 97 Room Air 06/16/24 09:46 64 06/16/24 08:00 Room Air 06/16/24 07:14 36.4 C L 74 18 151/86 H 95 Room Air Laboratory Results Laboratory Results - last 24 hr 06/16/24 07:16 WBC RBC Hgb Hct MCV MCH MCHC RDW Std Deviation RDW Coeff of Aspen Plt Count MPV Sodium 141 Potassium 3.9 D Chloride 104 Carbon Dioxide 31 Anion Gap 6 BUN 20 Creatinine 0.54 L Est Cr Clr Drug Dosing 76.2 eGFR 90.73 BUN/Creatinine Ratio 37.0 H Glucose 134 H Calcium 10.4 H 25-OH Vitamin D Total 41.6 PTH Intact Cortisol Response ACTH Pending PG Care Time/CCT Total # of Minutes Spent Total Time Spent with Patient: Total time spent is greater than 50% in coordination of care (as documented) at patient's floor/unit and/or counseling patient: Coding Level of Care Code 39641 SUB INP/OBS CARE 3/50MIN Diagnoses Adrenal insufficiency E27.40 Orthostatic hypotension I95.1 Ambulatory dysfunction R26.2 Recurrent falls R29.6 Paroxysmal atrial fibrillation I48.0 Atrial fibrillation type: paroxysmal Fracture of acromion of scapula S42.123A Nocturnal hypoxia G47.34 ADHD F90.9 Hypercalcemia E83.52 (5) Atrial fibrillation Atrial fibrillation type: paroxysmal Qualified Code(s): I48.0 - Paroxysmal atrial fibrillation
--- NOTE | 2024-06-16 15:10 | Orthopedic Consultation ---
Date of Consultation June 16, 2024 Assessment & Plan (1) Fracture of acromion of scapula: (2) Fall: (3) Status post reverse total replacement of right shoulder: Plan 83-year-old female approximately 2.5 months s/p right reverse total shoulder replacement by Dr. Dennis on 03/29/2024. Patient unsure when she might have sustained the acromion fracture, but the CT scan does demonstrate an acute fracture. Right shoulder CT scan personally reviewed and agree with findings of the radiologist report of an acute fracture. This is a minimally displaced fracture and there is currently no indication for surgical intervention. Will allow this to heal with conservative management. The prosthesis for the reverse total shoulder arthroplasty is well-positioned and without evidence of loosening. Plan: 1. Sling to right upper extremity for 6 weeks. 2. Encourage elbow, wrist, digit AROM. 3. F/u in [address] Dennis's team. History of Present Illness Attending Physician: Chuck Shannon MD History of Present Illness Per 06/14/24 ED provider note: "Patient is an 83-year-old female with a past medical history of CKD, ADHD, CAD, aortic regurg who presents to the ER for weakness. She notes that the past 3 mornings she has been unable to get out of bed as she was too weak. She has been seen and evaluated before and notes that she does okay in the afternoons when she gets home. Today she got on the edge of the bed and slid out of bed. She did not hit her head or neck. No chest pain or shortness of breath. No dizziness or lightheadedness. No focal weakness in the arms or legs. She denies any pain from sliding out of bed. She notes she feels uncomfortable going back to [facility] and believes that she does need some rehab. No dysuria, urgency, or frequency." Per 06/14/24 Hospitalist H&P: "Jigna is a pleasant 83-year-old female with PMH of atrial fibrillation (on Eliquis), CAD, asthma, CKD, HLD, glaucoma, and depression. She presented on the morning of 06/14 after sustaining a ground-level fall when she got out of bed. Patient reports that she stood up and her legs gave out on her. No dizziness or lightheadedness prior to fall. No head strike. No LOC. Patient reports this is now the third day in a row that this has happened. She wakes up, attempt to get up but feels weak, then "slips" out of bed and onto the floor. The patient reports no pain or injuries with these events; she always lands directly on her buttocks. Patient lives alone in a senior apartment with her cat. She does not use any ambulatory assist devices in her apartment, but does have a walker that she was attempting to use this morning. She also has a quad cane that she uses outdoors. The first time she fell on Monday 06/12, she was unable to get up so she called EMS, and they helped her up, and she was able to ambulate on her own throughout the rest the day. The next 2 mornings, she once again got up, but could not get up on her own. She reports she was never on the floor for very long, as she always managed to call the ambulance after coming down. Patient has had a gradual decline ever since her right shoulder replacement in March. She denies any pain in her legs or hips. She does have chronic lower back pain, but she attributes this to arthritis. Patient took her regular morning medicine today, including her Eliquis. She does manage her own medicine at home, but does have help from [facility]. No recent change in medications. Patient was around a sick friend 4 days ago, who believes she might of had the flu (her friend did not do any formal testing). While the patient does not endorse any respiratory symptoms, she has felt weaker over the past several days. Patient is a former smoker, but quit in 2019. She denies any recent alcohol use. 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 Patient's vitals are stable at time of admission." Patient is admitted for weakness and orthopedics was consulted for further management of a right acromion fracture, with her being status post a right shoulder surgery by Dr. Dennis in March 2024. Today, the patient says that she has been struggling a little bit with the right shoulder since her surgery, for which she is status post right reverse total shoulder arthroplasty by Dr. Dennis on 03/29/2024. She is unsure where along the line she might have sustained the acromion fracture, but in bed today she is moving her right arm and shoulder around and does not seem to be having much pain doing so. However, she does report that the right AC joint and acromion region has been tender. She denies any pain or paresthesia into the right upper extremity. Allergies Allergy/AdvReac Type Severity Reaction Status Date / Time azithromycin Allergy Unknown throat Verified 06/14/24 08:51 burned, lost weight chocolate flavor Allergy Unknown hx rash Verified 06/14/24 08:51 fluticasone Allergy Unknown chest pain Verified 06/14/24 08:51 (from [facility]) Penicillins Allergy Unknown per Verified 06/14/24 08:51 allergy test procaine Allergy Unknown novacaine Verified 06/14/24 08:51 - anaphylaxis, mouth swelling, dyspnea salmeterol Allergy Unknown chest pain Verified 06/14/24 08:51 (from [facility]) moxifloxacin AdvReac Unknown N/V Verified 06/14/24 08:51 NSAIDS (Non-Steroidal AdvReac Unknown advised to Verified 06/14/24 08:51 Anti-Inflamma avoid d/t ulcer hx zolpidem AdvReac Unknown sleep Verified 06/14/24 08:51 walking Home Medications Medication Instructions Recorded Confirmed Type psyllium seed (sugar) oral powder 1 tbsp PO DAILY PRN Constipation 03/03/20 06/14/24 History (Metamucil (sugar) oral powder) escitalopram oxalate 5 mg tablet 5 mg PO QAM #90 tabs 03/15/20 06/14/24 Rx (Lexapro) calcium 600 mg (as 1 tab PO BID #60 tabs 04/28/20 06/14/24 Rx carbonate)-vitamin D3 10 mcg (400 unit) tablet (Calcium 600 + D(3)) trazodone 150 mg tablet 225 mg (1.5 x 150 mg) PO HS #45 04/28/20 06/14/24 Rx tabs zinc gluconate 50 mg tablet 50 mg PO QAM #30 tabs 07/20/20 06/14/24 Rx aspirin 81 mg tablet,delayed 81 mg PO HS #30 tabs 08/18/20 06/14/24 Rx release cholecalciferol (vitamin D3) 50 2,000 unit PO QAM #30 tabs 09/13/20 06/14/24 Rx mcg (2,000 unit) tablet multivitamin 1 tab PO QAM #30 tabs 09/13/20 06/14/24 Rx Oxygen Home #1 ea 03/27/21 05/28/24 Rx Scooter #1 ea 04/03/21 05/28/24 Rx travoprost 0.004 % eye drops 1 drp OPB QPM 05/03/21 06/14/24 History dextroamphetamine-amphetamine 10 10 - 20 mg PO BID 03/07/22 06/14/24 History mg tablet (Adderall) acetaminophen 500 mg tablet 1,000 mg PO Q8H PRN Pain 11/12/22 06/14/24 History (Tylenol Extra Strength) ascorbic acid (vitamin C) 500 mg 500 mg PO QAM 11/12/22 06/14/24 History tablet (Vitamin C) biotin 10 mg tablet 10 mg PO QAM 11/12/22 06/14/24 History guaifenesin 600 mg tablet, 600 mg PO Q6H PRN Congestion 11/12/22 06/14/24 History extended release 12 hr (Mucinex) nebulizer accessories #2 ea 03/31/23 05/28/24 Rx nebulizers #1 ea 03/31/23 05/28/24 Rx cyanocobalamin (vitamin B-12) 2,500 mcg PO QAM 05/06/23 06/14/24 History 2,500 mcg tablet escitalopram oxalate 20 mg tablet 20 mg PO QAM 05/06/23 06/14/24 History (Lexapro) vitamin E 800 unit capsule 800 unit PO QAM 05/06/23 06/14/24 History diaper,brief,adult,disposable #6 ea 10/21/23 05/28/24 Rx (Select Disposable Briefs) atorvastatin 40 mg tablet (Lipitor) 40 mg PO HS #90 tabs 12/04/23 06/14/24 Rx digoxin 125 mcg (0.125 mg) tablet 125 mcg PO QAM #90 tabs 12/04/23 06/14/24 Rx montelukast 10 mg tablet 10 mg PO HS #90 tabs 12/04/23 06/14/24 Rx (Singulair) oxybutynin chloride 5 mg 5 mg PO QAM #90 tabs 12/04/23 06/14/24 Rx tablet,extended release 24 hr apixaban 5 mg tablet (Eliquis) 5 mg PO BID #60 tabs 01/21/24 06/14/24 Rx buspirone 5 mg tablet 5 mg PO BID Anxiety 02/18/24 06/14/24 History albuterol sulfate 2.5 mg/3 mL 3 mg inhalation TID asthma attacks 02/20/24 06/14/24 History (0.083 %) solution for nebulization albuterol sulfate 90 mcg/actuation 2 puff inhalation Q6H PRN asthma 02/20/24 06/14/24 History aerosol inhaler (Ventolin HFA) diclofenac sodium 1 % topical gel 2 g topical DAILY PRN Pain 02/20/24 06/14/24 History loratadine 10 mg tablet 10 mg PO QAM 02/20/24 06/14/24 History lamotrigine 150 mg tablet 150 mg PO HS 03/29/24 06/14/24 History (Lamictal) pantoprazole 40 mg tablet,delayed 40 mg PO QAM 03/29/24 06/14/24 History release (Protonix) tramadol 50 mg tablet 50 mg PO Q6H PRN pain #30 tabs 03/30/24 06/14/24 Rx diltiazem HCl 180 mg capsule,24 360 mg (2 x 180 mg) PO DAILY #180 04/26/24 06/14/24 Rx hr,extended release caps gabapentin 400 mg capsule 400 mg PO BID #60 caps 05/17/24 06/14/24 Rx magnesium oxide 400 mg PO HS #90 tabs 05/17/24 06/14/24 Rx pramipexole 0.5 mg tablet 0.5 mg PO HS #90 tabs 05/17/24 06/14/24 Rx brimonidine 0.2 %-timolol 0.5 % 1 drp OPB BID 06/14/24 06/14/24 History eye drops (Combigan) umeclidinium 62.5 mcg/actuation 1 inh inhalation DAILY PRN 06/14/24 06/14/24 History blister powder for inhalation Cough/Wheezing (Incruse Ellipta) Patient History Medical History Atrial fibrillation Pre-diabetes CKD (chronic kidney disease) Nocturnal hypoxia Mitral regurgitation Left ventricular systolic dysfunction CAD (coronary artery disease) Aortic regurgitation Nerve pain Lung nodule Esophageal dysphagia Asthma COPD (chronic obstructive pulmonary disease) ADHD Anxiety Raynauds disease Acid reflux Tremor History of gastric ulcer History of sepsis (2022) History of skin cancer Right lower quadrant abdominal pain Difficult intravenous access Rectocele Neck problem Arthritis of neck Osteoarthritis History of anemia History of COVID-19 (~02/2023) Restless leg syndrome On home oxygen therapy Esophageal stenosis Incontinence of urine Hearing deficit Glaucoma Depression Hyperlipidemia History of transient cerebral ischemia Rheumatoid arthritis (02/25/13) Surgical History Status post reverse total replacement of right shoulder (~03/2024) History of lumbar fusion History of foot surgery History of foot surgery S/P foot surgery, left S/P foot surgery, left History of total hip arthroplasty H/O toe surgery History of total knee replacement S/P hardware removal S/P laparotomy S/P ankle arthrodesis History of open reduction and internal fixation (ORIF) procedure H/O elbow surgery S/P AMANDA (total abdominal hysterectomy) H/O thumb surgery History of appendectomy History of colonoscopy History of esophagogastroduodenoscopy (EGD) History of surgical removal of skin lesion History of tonsillectomy Family History Family/Other Coronary heart disease Heart disease Cancer Hypertension Brother Prostate cancer Benign familial tremor Father Benign familial tremor Mother Malignant melanoma Aunt Rheumatoid arthritis Other No family history of adverse response to anesthesia Denies family history of Ovarian cancer Myocardial infarction Breast cancer Colorectal cancer Social History Smoking Status: Former smoker Tobacco Type: Cigarettes Age Started Using Tobacco: 19 (intermittently quit throughout the years); Age Quit Using Tobacco: 81; packs per day: 0.1; Cigarettes Per Day: 2; Second Hand Exposure: No; Do You Dip or Chew Tobacco: No; Tobacco Cessation Education Requested by Patient: No Hx Alcohol Use: Yes Alcohol type: beer Alcohol Intake Frequency: Monthly or Less Alcohol Intake Frequency Comment: rarely Hx Substance Use: No Preferred Language: Spanish Communication Ability: Effective Visual Impairment: No Limitations Hearing Ability: Hard of Hearing Fibreglass Laminator Required: No Beliefs That Will Affect Care: None marital status: Current Living Situation: Alone Current Living Situation Comment: senior care apartment/independent 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al status: retired 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 Speech and cognition is intact. Mood and affect is appropriate. HEAD: Normocephalic; atraumatic. CHEST: Regular chest respiration and excursion. NEURO: C5 - C8 w/ intact sensation bilaterally. SKIN: [place], warm and dry. MS/EXTREMITY: Lying flat in bed and performing active range of motion to right shoulder and upper extremity. + TTP right acromion and AC joint region. Median/Ulnar/Radial nerve distributions intact to sensory/motor. Radial pulse intact, 2+. Results & Data Vital Signs (Past 12 Hours) Vital Signs Temp Pulse Pulse Resp BP Pulse Ox O2 Del Method 06/16/24 14:10 37.1 C 18 97 Room Air 06/16/24 09:46 64 06/16/24 08:00 Room Air 06/16/24 07:14 36.4 C L 74 18 151/86 H 95 Room Air Diagnostic Findings CT shoulder RT wo con CLINICAL HISTORY: recent total shoulder replacement, pain; fracture? COMPARISON STUDY: X-ray 03/29/2024. FINDINGS: Right shoulder prosthesis shows no hardware complication. There is an acute minimally displaced fracture at the base of the acromion. No other fracture or dislocation seen. No significant soft tissue hematoma. 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 IMPRESSION: Acute fracture at the base of the acromion. ACT 112: Negative or not required by law. Electronically signed by: Solomon Saavedra M.D. 06/15/2024 12:23 PM Dictated: 06/15/24 1219 Transcribed: 06/15/24 1219 (2) Fall Encounter type: initial encounter Qualified Code(s): W19.XXXA - Unspecified fall, initial encounter
[2024-06-16] MEDS: traMADol HCL 50 MG TABLET PO PRN (19:21)
[2024-06-17] MEDS: DEXTROAMPHETAMINE/AMPHETAMINE IR 10 MG TAB PO SCH ×2 (06:04→14:07)
[2024-06-17 07:24] LABS: Hematocrit (blood only) 38.9 % (37.0-47.0); Hemoglobin 12.6 g/dl (12.0-16.0); Mean Corpuscular Hemoglobin 28.3 pg (25.0-34.0); Mean Corpuscular Hgb Conc 32.4 g/dL (32.0-36.0); Mean Corpuscular Volume 87.4 fL (80.0-100.0); Mean Platelet Volume 9.1 fL (9.4-12.4); Platelet Count 237 K/uL (130-400); RDW Coefficient of Variation 16.6 % (11.5-14.5); RDW Standard Deviation 53.1 fL (36.4-46.3); Red Blood Count 4.45 M/uL (4.20-5.40); White Blood Count 15.22 K/ul (4.8-10.8)
[2024-06-17 07:42] LABS: BUN Creatinine Ratio 43.9 (10-20); Calcium 10.5 mg/dl (8.6-10.3); Creatinine Clr Calc Pharmacy 72.2 ml/min; Potassium 4.4 mmol/L (3.5-5.1)
[2024-06-17] MEDS: HYDROCODONE/ACETAMOPHEN 5/325MG TAB PO PRN (15:34)
[2024-06-17] MEDS: NYSTATIN SUSP 500,000 U/5 ML UDC PO SCH (18:12)
--- NOTE | 2024-06-17 19:18 | Hospitalist Progress Note ---
Date of Service June 17, 2024 Assessment & Plan (1) Adrenal insufficiency: Plan: 83-year-old female with atrial fibrillation (on Eliquis), CAD, asthma, CKD, glaucoma, and depression. She presented on the morning of 06/14 after sustaining a ground-level fall when she got out of bed. Patient reports that she attempted to stand up, and her legs gave out on her. No dizziness or lightheadedness prior to fall. No head strike. No LOC. Patient reports this is now the third day in a row that this has happened. She wakes up, attempt to get up but feels weak, then "slips" out of bed and onto the floor. random cortisol level was <1 cosyntropin stim test - did not pass, only stimmed to 10 likely secondary adrenal insufficiency she has had numerous exposures to exogenous steroid - corticosteroid injections for various joints, prednisone PO, dexamethasone IV around the time of R shoulder surgery, etc. this caused weakness, fatigue, orthostasis, etc. likely contributed to increased fall risk orthostatic BPs improved energy improved cont hydrocortisone 20mg BID; no wean today plan to taper slowly down to 15mg qam and 5mg qafternoon send to [facility] [place] Endo post-d/c for management ACTH level sent/pending (2) Orthostatic hypotension: Plan: likely 2nd to #1 above orthostatic BPs are acceptable today (3) Ambulatory dysfunction: Plan: orthostasis along with adrenal insufficiency to blame polypharmacy could have played a role as well s/p IV fluids along stress dose steroids have helped her symptoms PT, OT evals appreciated cont with reduced doses of trazodone & gabapentin (4) Recurrent falls: Plan: see above PT, OT both advising rehab but patient declining such I have spoken with her multiple times about rehab - not willing to consider such (5) Atrial fibrillation: Plan: cont digoxin daily dig level wnl cont diltiazem daily cont Eliquis 5mg BID (6) Fracture of acromion of scapula: Plan: right likely insufficiency fracture (suspect fracture is somewhat old as she has been having severe pain for many weeks, even before the falls at home) appreciate Dr Dennis's consultation 25-OH vit D level wnl sling x 6 weeks pain meds prn (change tramadol to norco prn) (7) Nocturnal hypoxia: Plan: cont NC O2 as at home (8) ADHD: Plan: cont usual meds (9) Hypercalcemia: Plan: mild elevation goes back to at least 2019 intermittently previous intact PTH level in 2022 was wnl 25-OH vit D level wnl recent phos level wnl intact PTH level today wnl will recommend she stop calcium supplementation Plan updated pt's daughter extensively by phone 06/16 hopeful for d/c home tomorrow Admission and Anticipated Discharge Date Admission Date: June 14, 2024 Subjective only complaint is that of R shoulder pain otherwise no weakness no fatigue no dizziness or lightheadedness eating well still not willing to consider acute rehab even after Pt/Ot today both advised Review of Systems Review of Systems: cv - no chest pain pulm - no dyspnea or NICOLAS GI - no abd pain or N/V Physical Exam Physical Exam: gen - NAD, sitting at side of bed, looks same as yesterday neck - no JVD mouth - MMM heart - irregularly irregular, s1 s2, no murmur, HR<100 lungs - CTA b/l abd - soft NT ND BS+ ext - no edema, pulses b/l feet 2+ Results & Data Results & Data Vital Signs (Past 12 Hours) Vital Signs Temp Pulse Pulse Resp BP Pulse Ox O2 Del Method 06/17/24 14:29 37.2 C 77 16 124/71 94 Room Air 06/17/24 07:59 68 Laboratory Results Laboratory Results - last 24 hr 06/17/24 07:07 WBC 15.22 H RBC 4.45 Hgb 12.6 Hct 38.9 MCV 87.4 MCH 28.3 MCHC 32.4 RDW Std Deviation 53.1 H RDW Coeff of Aspen 16.6 H Plt Count 237 MPV 9.1 L Sodium 141 Potassium 4.4 Chloride 103 Carbon Dioxide 34 H Anion Gap 4 BUN 25 H Creatinine 0.57 L Est Cr Clr Drug Dosing 72.2 eGFR 89.55 BUN/Creatinine Ratio 43.9 H Glucose 114 H Calcium 10.5 H PTH Intact 65.9 PG Care Time/CCT Total # of Minutes Spent Total Time Spent with Patient: Total time spent is greater than 50% in coordination of care (as documented) at patient's floor/unit and/or counseling patient: Coding Level of Care Code 94039 SUB INP/OBS CARE 2/35MIN Diagnoses Adrenal insufficiency E27.40 Orthostatic hypotension I95.1 Ambulatory dysfunction R26.2 Recurrent falls R29.6 Paroxysmal atrial fibrillation I48.0 Atrial fibrillation type: paroxysmal Fracture of acromion of scapula S42.123A Nocturnal hypoxia G47.34 ADHD F90.9 Hypercalcemia E83.52 (5) Atrial fibrillation Atrial fibrillation type: paroxysmal Qualified Code(s): I48.0 - Paroxysmal atrial fibrillation
[2024-06-18 06:45] LABS: Hematocrit (blood only) 38.1 % (37.0-47.0); Hemoglobin 12.5 g/dl (12.0-16.0); Mean Corpuscular Hemoglobin 28.7 pg (25.0-34.0); Mean Corpuscular Hgb Conc 32.8 g/dL (32.0-36.0); Mean Corpuscular Volume 87.4 fL (80.0-100.0); Mean Platelet Volume 9.8 fL (9.4-12.4); Platelet Count 249 K/uL (130-400); RDW Coefficient of Variation 16.6 % (11.5-14.5); RDW Standard Deviation 53.1 fL (36.4-46.3); Red Blood Count 4.36 M/uL (4.20-5.40); White Blood Count 12.41 K/ul (4.8-10.8)
[2024-06-18 07:04] LABS: BUN Creatinine Ratio 51.8 (10-20); Creatinine Clr Calc Pharmacy 73.5 ml/min
[2024-06-18 07:14] VITALS: BP 146/72; PULSE 91; RESP 16; TEMP 98.2; O2SAT 94
--- NOTE | 2024-06-18 12:24 | Discharge Summary ---
Discharge Summary Date of Service date of admission - June 14, 2024 date of discharge - June 18, 2024 Principal Dx & Hospital Course #1 = Principal Diagnosis (1) Adrenal insufficiency: 83-year-old female with atrial fibrillation (on Eliquis), CAD, asthma, CKD, glaucoma, and depression. She presented on the morning of 06/14 after sustaining a ground-level fall when she got out of bed. Patient reports that she attempted to stand up, and her legs gave out on her. No dizziness or lightheadedness prior to fall. No head strike. No LOC. Patient reports this is now the third day in a row that this has happened. She wakes up, attempt to get up but feels weak, then "slips" out of bed and onto the floor. 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 her adrenal insufficiency likely contributed to her weakness, fatigue, orthostasis, etc. likely contributed to increased fall risk as well orthostatic BPs improved s/p dexamethasone & IV fluids ultimately placed on hydrocortisone 20mg twice daily AFTER the cosyntropin stim test was complete plan to taper slowly down to 15mg qam and 5mg qafternoon (maintenance) will send to [facility] Endo post-d/c for management ACTH level was sent/pending at time of discharge (2) Orthostatic hypotension: likely 2nd to #1 above orthostatic BPs improved with IV/PO steroids & IV fluids (3) Ambulatory dysfunction: orthostasis along with adrenal insufficiency to blame polypharmacy could have played a role as well s/p IV fluids along stress dose steroids helped her symptoms PT, OT evals were completed; both services advised rehab, but patient consistently stated she wanted to return home with home based therapy she will continue trazodone & gabapentin albeit at reduced doses she will continue lexapro but at a mildly lower dose as well (4) Recurrent falls: see above PT, OT both advised rehab but patient declined such (5) Atrial fibrillation: cont digoxin daily dig level wnl cont diltiazem daily cont Eliquis 5mg BID (6) Fracture of acromion of scapula: right, as seen on CT right shoulder likely insufficiency fracture (suspect fracture is somewhat old as she has been having severe pain for many weeks, even before the falls at home) seen by Dr Barrera Dennis - [facility] Orthopedics 25-OH vit D level wnl sling x 6 weeks recommended for the right arm pain meds prn (changed tramadol to norco prn) she will follow-up with Dr Dennis in the ortho clinic after discharge for recheck (7) Nocturnal hypoxia: cont NC O2 as at home (8) ADHD: cont usual meds (dextroamphetamine-amphetamine 10-20mg BID) (9) Hypercalcemia: mild elevation goes back to at least 2019 intermittently previous intact PTH level in 2022 was wnl repeat intact PTH level this admission was wnl 25-OH vit D level wnl (level 41) recent phos level wnl advised she stop calcium supplementation at home and have a repeat BMP in 1-2 weeks post-discharge to ensure stability also stop vitamin D supplements for now (10) Candidiasis of mouth and esophagus: nystatin solution QID x 7 days (11) Leg length discrepancy: referral to [facility] Orthotics for evaluation for a built-up shoe leg-length discrepancy also contributes to enhanced fall risk Notes For Next Care Provider Sling to RUE x 6 weeks f/u [facility] - Dr Dennis - 2 weeks f/u [facility] for adrenal insufficiency Medication Changes From Visit * Hydrocortisone taper, followed by 15mg qam and 5mg qafternoon * LOWER Trazodone to 150mg at bedtime * LOWER Escitalopram to 20mg daily * LOWER Gabapentin to 200mg twice daily * START nystatin solution 5ml qid x 7 days * STOP calcium supplements * STOP zinc supplement * STOP tramadol * START norco 5's prn R shoulder pain Admission HPI Per Admitting Provider Jigna Alves is a pleasant 83-year-old female with PMH of atrial fibrillation (on Eliquis), CAD, asthma, CKD, HLD, glaucoma, and depression. She presented on the morning of 06/14 after sustaining a ground-level fall when she got out of bed. Patient reports that she stood up and her legs gave out on her. No dizziness or lightheadedness prior to fall. No head strike. No LOC. Patient reports this is now the third day in a row that this has happened. She wakes up, attempt to get up but feels weak, then "slips" out of bed and onto the floor. The patient reports no pain or injuries with these events; she always lands directly on her buttocks. Patient lives alone in a senior apartment with her cat. She does not use any ambulatory assist devices in her apartment, but does have a walker that she was attempting to use this morning. She also has a quad cane that she uses outdoors. The first time she fell on Monday 06/12, she was unable to get up so she called EMS, and they helped her up, and she was able to ambulate on her own throughout the rest the day. The next 2 mornings, she once again got up, but could not get up on her own. She reports she was never on the floor for very long, as she always managed to call the ambulance after coming down. Patient has had a gradual decline ever since her right shoulder replacement in March. She denies any pain in her legs or hips. She does have chronic lower back pain, but she attributes this to arthritis. Patient took her regular morning medicine today, including her Eliquis. She does manage her own medicine at home, but does have help from [facility] [place]. No recent change in medications. Patient was around a sick friend 4 days ago, who believes she might of had the flu (her friend did not do any formal testing). While the patient does not endorse any respiratory symptoms, she has felt weaker over the past several days. Patient is a former smoker, but quit in 2019. She denies any recent alcohol use. 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 Patient's vitals are stable at time of admission. ED course: NSS 500 mL IV ROS: Patient endorses generalized weakness. Patient denies fever, chills, night-sweats, dizziness, lightheadedness, headaches, changes in vision, chest pain, chest palpitations, SOB, cough, abdominal pain, N/V/D, changes in urinary/bowel habits, burning with urination, blood in the urine/stool, or pain/numbness/tingling in the legs. Discharge Exam gen - NAD, looks good, right arm in sling neck - no JVD mouth - MMM heart - irregularly irregular, s1 s2, no murmur, HR<100 lungs - CTA b/l abd - soft NT ND BS+ ext - no edema, pulses b/l feet 2+ musculo - right shoulder - no swelling; incision well-healed; leg-length discrepancy present, at least 1/2 inch difference between the legs Discharge Plan Discharge Items Patient Disposition: Home - Home Health Services Reason For Visit: AMBLUATORY DYSFUNCTION Discharge Diagnosis: 1. new diagnosis of adrenal insufficiency 2. orthostatic hypotension (drop in blood pressure with standing) - likely due to #1 - resolved 3. fracture of acromion on right 4. thrush (yeast infection in mouth) 5. 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 leg-length discrepancy 7. mild hypercalcemia (high calcium level) - improved Activity: As commented below Activity Comment: use sling on right arm at all times except grooming/bath/dressing Lifting Comment: ok to do range of motion exercises with right hand Non-emergency contact: Primary Care Provider and Specialist Call non-emergency contact if: you have any medication questions, your symptoms worsen, your pain is not controlled, your pain is worsening and you have a fever Follow-up/Referrals: Gio Davis BOCO [Acquisition Professional] - 06/28/24 9:00 am (Office # [phone] if you need to reschedule) Tai Mcgarry MD [Physician] - (diagnosis - adrenal insufficiency; first available ) Faiza Csota MD [Primary Care Provider] - 06/25/24 10:20 am (within 1 week ) Barrera Dennis DO [Physician] - 06/23/24 9:30 am (make appt. for office visit in 3 weeks from 06/16/24 --) Diet: Regular Addtl Attending Provider Instructions: Mrs Alves, You came to [facility] due to weakness and several falls you had had over the course of multiple days. You also had been having right shoulder pain for some time. We discovered that when you stand up your blood pressure drops. This is called orthostatic hypotension. There are many causes of this. One cause is something called "adrenal insufficiency." (see handout) Adrenal insufficiency is when you lack cortisol hormone in your body. Cortisol is a stress hormone. Deficiency leads to low blood pressure, weakness, dizziness, etc. We performed a cortisol stimulation test and this confirmed that you likely have adrenal insufficiency. We are going to send you to [facility] to manage this condition. During the stay we gave you hydrocortisone steroid as well as IV fluids. Your weakness and the orthostatic hypotension improved with such. CT scan of your right shoulder showed that the acromion - a bony portion of your shoulder blade - was fractured. This is the cause of your ongoing shoulder pain. Dr Dennis's team saw you in consult and recommended a sling on your right arm for 6 weeks. Finally, you are on a lot of medicines for sleep and your mental health. There was concern that perhaps medication side effects were contributing to your falls. Thus, we made several changes to your medicines. Recommendations - 1. Hydrocortisone for adrenal insufficiency - start 06/19/24, take with food. Each tablet is 5mg. * 06/19/24 -- 4 tabs (20mg) by mouth in the morning and 4 tabs (20mg) in the late afternoon * 06/20/24 - 06/22/24 -- 3 tabs (15mg) by mouth in the morning and 3 tabs (15mg) in the late afternoon * 06/23/24 - 06/25/24 -- 3 tabs (15mg) in the morning and 2 tabs (10mg) in the late afternoon * 06/26/24 and thereafter -- 3 tabs (15mg) in the morning and 1 tablet (5mg) in the late afternoon 2. For yeast in mouth - nystatin solution - 5ml four times daily x 7 days, swish & spit. 3. For right shoulder pain - * hydrocodone/acetaminophen 5mg/325mg -- 1 tablet every 6 hours as needed for pain * this is a narcotic pain killer medicine * do NOT take tramadol and hydrocodone together * do NOT drink alcohol with hydrocodone * do NOT drive a car with hydrocodone * this medicine contains tylenol (acetaminophen) in it; thus, do not take extra tylenol [id number] if you are taking the hydrocodone 4. Ice the right shoulder as needed/as desired. 5. REDUCE the following medicines - * LOWER Trazodone to 150mg at bedtime (you previously took 225mg) * LOWER Escitalopram to 20mg daily (you previously took 25mg total) * LOWER Gabapentin to 200mg twice daily (you previously took 400mg twice daily) 6. STOP any calcium and vitamin D supplements for now. 7. STOP any zinc supplements for now. 8. STOP tramadol pain killer. Follow-up - see separate section Return to [facility] if - * you have fever over 100 degrees * you have recurrent falls * you have severe dizziness or lightheadedness * you have shortness of breath or chest pains * you have uncontrolled pain in your right shoulder * any other concerns It was our pleasure to care for you! -Dr Shannon Pending Studies at Discharge: Yes Studies:: ACTH level (pituitary hormone level for cortisol) Stand-Alone Forms: [facility], Smoking Cessation Medications and DC Order Prescriptions: New nystatin 100,000 unit/mL Suspension 5 ml PO QID 7 Days Qty: 150 0RF Rx Instructions: swish/spit hydrocodone-acetaminophen 5-325 mg Tablet 1 tab PO Q6H PRN (Reason: pain) Qty: 10 0RF hydrocortisone 5 mg tablet 5 mg PO .BID as directed Qty: 180 0RF Rx Instructions: take as follows, start 06/19/24. 4 tabs PO Qam and 4 tabs PO Qafternoon x 1 day; 3 tabs PO Qam and 3 tabs PO Qafternoon x 3 days; 3 tabs PO Qam and 2 tabs PO Qafternoon x 3 days; then 3 tabs PO Qam and 1 tab PO Qafternoon thereafter. Take with food. Continued aspirin 81 mg tablet,delayed release (DR/EC) 81 mg PO HS Qty: 30 5RF cholecalciferol (vitamin D3) 50 mcg (2,000 unit) tablet 2,000 unit PO QAM Qty: 30 5RF Rx Instructions: Unable to verify OTC meds at this date/time. multivitamin Tablet 1 tab PO QAM Qty: 30 5RF Rx Instructions: Unable to verify OTC meds at this date/time. (DME) Oxygen Home Liters Per Minute See Rx Instructions .Route Qty: 1 0RF Rx Instructions: 2L/min O2 for use when sleeping. Pt is mouth breather, needs appropriate mask (DME) Scooter Misc See Rx Instructions .Route Qty: 1 0RF Rx Instructions: As directed. (DME) nebulizers Misc See Rx Instructions .ROUTE .MEDSUPPLY Qty: 1 0RF Rx Instructions: New nebulizer ([facility]) nebulizer accessories Kit See Rx Instructions .ROUTE .MEDSUPPLY Qty: 2 0RF Rx Instructions: All tubing, connectors, and accessory pieces ([facility]) Select Disposable Briefs Misc See Rx Instructions .Route Qty: 6 3RF Rx Instructions: Pt would like 6 packs of briefs "pull ups" every other month atorvastatin [Lipitor] 40 mg tablet 40 mg PO HS Qty: 90 1RF digoxin 125 mcg (0.125 mg) tablet 125 mcg PO QAM Qty: 90 1RF oxybutynin chloride 5 mg tablet extended release 24hr 5 mg PO QAM Qty: 90 1RF montelukast [Singulair] 10 mg tablet 10 mg PO HS Qty: 90 1RF diltiazem HCl 180 mg capsule,extended release 24 hr 360 mg PO DAILY Qty: 180 3RF pramipexole 0.5 mg tablet 0.5 mg PO HS Qty: 90 1RF magnesium oxide 400 mg magnesium tablet 400 mg PO HS Qty: 90 1RF travoprost 0.004 % drops 1 drp OPB QPM Patient Comments: both eyes dextroamphetamine-amphetamine [Adderall] 10 mg tablet 10 - 20 mg PO BID Patient Comments: take 20 mg morning and 10 mg in afternoon. Rx Instructions: TAKE 20mg IN AM AND 10mg IN AFTERNOON; Metamucil (sugar) Powder 1 tbsp PO DAILY PRN (Reason: Constipation) Rx Instructions: Unable to verify OTC meds at this date/time. Eliquis 5 mg tablet 5 mg PO BID Qty: 60 11RF Rx Instructions: TAKE 1 TABLET BY MOUTH IN THE MORNING AND AT BEDTIME biotin 10 mg Tablet 10 mg PO QAM Rx Instructions: Unable to verify OTC meds at this date/time. ascorbic acid (vitamin C) [Vitamin C] 500 mg Tablet 500 mg PO QAM Rx Instructions: Unable to verify OTC meds at this date/time. guaifenesin [Mucinex] 600 mg Tablet Extended Release 12hr 600 mg PO Q6H PRN (Reason: Congestion) vitamin E 800 unit Capsule 800 unit PO QAM Rx Instructions: Unable to verify OTC meds at this date/time. cyanocobalamin (vitamin B-12) 2,500 mcg tablet 2,500 mcg PO QAM Rx Instructions: Unable to verify OTC meds at this date/time. loratadine 10 mg Tablet 10 mg PO QAM albuterol sulfate [Ventolin HFA] 90 mcg/actuation HFA aerosol inhaler 2 puff Inhalation Q6H PRN (Reason: asthma) diclofenac sodium 1 % Gel 2 g topical DAILY PRN (Reason: Pain) Rx Instructions: apply to single elbow, wrist or hand; for hand includes palm/fingers/back of hand albuterol sulfate 2.5 mg /3 mL (0.083 %) Solution For Nebulization 3 mg INHALATION TID Patient Comments: pt reports albuterol nebilizer for asthma attacks/none in yrs. lamotrigine [Lamictal] 150 mg tablet 150 mg PO HS Patient Comments: for tremors Rx Instructions: TAKE 1 TABLET BY MOUTH AT BEDTIME pantoprazole [Protonix] 40 mg tablet,delayed release (DR/EC) 40 mg PO QAM Rx Instructions: TAKE ONE TABLET BY MOUTH EVERY MORNING brimonidine-timolol [Combigan] 0.2-0.5 % drops 1 drp OPB BID Patient Comments: both eyes Incruse Ellipta 62.5 mcg/actuation blister with device 1 inh inhalation DAILY PRN (Reason: Cough/Wheezing) acetaminophen [Tylenol Extra Strength] 500 mg Tablet 1,000 mg PO Q8H PRN (Reason: Pain) Qty: 0 0RF Rx Instructions: maximum 3000mg in 24 hours escitalopram oxalate [Lexapro] 20 mg tablet 20 mg PO QAM Qty: 0 0RF buspirone 5 mg tablet 5 mg PO BID Changed trazodone 150 mg tablet 150 mg PO HS Qty: 45 5RF gabapentin 100 mg capsule 200 mg PO BID Qty: 120 0RF Discontinued escitalopram oxalate [Lexapro] 5 mg tablet 5 mg PO QAM Qty: 90 1RF Rx Instructions: TOTAL DOSE 25 MG--TAKES WITH 20 MG TAB. calcium carbonate-vitamin D3 [Calcium 600 + D(3)] 600 mg(1,500mg) -400 unit tablet 1 tab PO BID Qty: 60 5RF Rx Instructions: Unable to verify OTC meds at this date/time. zinc gluconate 50 mg tablet 50 mg PO QAM Qty: 30 5RF Rx Instructions: Unable to verify OTC meds at this date/time. tramadol 50 mg tablet 50 mg PO Q6H PRN (Reason: pain) Qty: 30 0RF Discharge Orders: Discharge Order (Routine); Ordered 06/18/24 Ordered By: Chuck Farnsworth/Other Patient Handouts: Secondary Adrenal Insufficiency Admission Data Admit Date/Time: 06/14/24 08:21 Attending Provider: Chuck Shannon Admit Provider: Asha Danw Primary Care Provider: Faiza Costa Other Providers: [facility] Fax; Barrera Dennis Other Interventions: Discharge Summary Assessment (RN) Last Done: 06/18/24 12:00 Hospital Stay Data Consultations [facility] Orthopedic Surgery PT, OT Diagnostic Imagining Performed Shoulder CT 06/15/24 09:50 CT shoulder RT wo con CLINICAL HISTORY: recent total shoulder replacement, pain; fracture? COMPARISON STUDY: X-ray 03/29/2024. FINDINGS: Right shoulder prosthesis shows no hardware complication. There is an acute minimally displaced fracture at the base of the acromion. No other fracture or dislocation seen. No significant soft tissue hematoma. 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 IMPRESSION: Acute fracture at the base of the acromion. ACT 112: Negative or not required by law. Electronically signed by: Solomon Saavedra M.D. 06/15/2024 12:23 PM Pending Results Patient Have Any Pending Studies at Discharge: Yes Discharge Instructions Given to Patient (Per Discharging Provider) Mrs Alves, You came to [facility] due to weakness and several falls you had had over the course of multiple days. You also had been having right shoulder pain for some time. We discovered that when you stand up your blood pressure drops. This is called orthostatic hypotension. There are many causes of this. One cause is something called "adrenal insufficiency." (see handout) Adrenal insufficiency is when you lack cortisol hormone in your body. Cortisol is a stress hormone. Deficiency leads to low blood pressure, weakness, dizziness, etc. We performed a cortisol stimulation test and this confirmed that you likely have adrenal insufficiency. We are going to send you to [facility] to manage this condition. During the stay we gave you hydrocortisone steroid as well as IV fluids. Your weakness and the orthostatic hypotension improved with such. CT scan of your right shoulder showed that the acromion - a bony portion of your shoulder blade - was fractured. This is the cause of your ongoing shoulder pain. Dr Dennis's team saw you in consult and recommended a sling on your right arm for 6 weeks. Finally, you are on a lot of medicines for sleep and your mental health. There was concern that perhaps medication side effects were contributing to your falls. Thus, we made several changes to your medicines. Recommendations - 1. Hydrocortisone for adrenal insufficiency - start 06/19/24, take with food. Each tablet is 5mg. * 06/19/24 -- 4 tabs (20mg) by mouth in the morning and 4 tabs (20mg) in the late afternoon * 06/20/24 - 06/22/24 -- 3 tabs (15mg) by mouth in the morning and 3 tabs (15mg) in the late afternoon * 06/23/24 - 06/25/24 -- 3 tabs (15mg) in the morning and 2 tabs (10mg) in the late afternoon * 06/26/24 and thereafter -- 3 tabs (15mg) in the morning and 1 tablet (5mg) in the late afternoon 2. For yeast in mouth - nystatin solution - 5ml four times daily x 7 days, swish & spit. 3. For right shoulder pain - * hydrocodone/acetaminophen 5mg/325mg -- 1 tablet every 6 hours as needed for pain * this is a narcotic pain killer medicine * do NOT take tramadol and hydrocodone together * do NOT drink alcohol with hydrocodone * do NOT drive a car with hydrocodone * this medicine contains tylenol (acetaminophen) in it; thus, do not take extra tylenol [id number] if you are taking the hydrocodone 4. Ice the right shoulder as needed/as desired. 5. REDUCE the following medicines - * LOWER Trazodone to 150mg at bedtime (you previously took 225mg) * LOWER Escitalopram to 20mg daily (you previously took 25mg total) * LOWER Gabapentin to 200mg twice daily (you previously took 400mg twice daily) 6. STOP any calcium and vitamin D supplements for now. 7. STOP any zinc supplements for now. 8. STOP tramadol pain killer. Follow-up - see separate section Return to [facility] if - * you have fever over 100 degrees * you have recurrent falls * you have severe dizziness or lightheadedness * you have shortness of breath or chest pains * you have uncontrolled pain in your right shoulder * any other concerns It was our pleasure to care for you! -Dr Shannon Total Time Total Time Spent Total Time Spent (In Minutes): 50 Coding Level of Care Code 32095 INP/OBS DISCH >30 MIN Diagnoses Adrenal insufficiency E27.40 Orthostatic hypotension I95.1 Ambulatory dysfunction R26.2 Recurrent falls R29.6 Paroxysmal atrial fibrillation I48.0 Atrial fibrillation type: paroxysmal Fracture of acromion of scapula S42.123A Nocturnal hypoxia G47.34 ADHD F90.9 Hypercalcemia E83.52 Candidiasis of mouth and esophagus B37.81; B37.0 Leg length discrepancy M21.70
== END 2024-06-18 15:17 | disposition home health service (06) | DRG 644 ==
LOC: ED 05:24 → 3N 08:21 → SUATTDRO 08:21 → 3N 12:01

== ENCOUNTER 2024-06-22 16:23 | Inpatient (IN) ==
--- NOTE | 2024-06-22 17:01 | Emergency Department Note ---
Impression & Plan Fall, Ambulatory dysfunction ED Provider Note Diagnosis: Fall, ambulatory dysfunction Disposition: Admission CHIEF COMPLAINT: Fall HPI: Patient is an 83-year-old female presenting status post mechanical fall. Patient states that she felt like she had no strength in her legs and fell backwards onto her butt. Patient states she did not hit her upper extremities or head off the ground. Patient states she was seen here 1 week ago for similar symptoms of multiple falls and generalized weakness. Patient found to be in adrenal insufficiency and is currently on steroid course. PAST MEDICAL HISTORY: See Below PAST SURGICAL HISTORY: See Below SOCIAL HISTORY: See Below HOME MEDICATIONS: See Below ALLERGIES: See Below VITALS: See Below PHYSICAL EXAMINATION: GENERAL: Well appearing, well nourished, NAD, non-toxic. EYE EXAM: Normal conjunctiva. OROPHARYNX: Moist mucus membranes. Grossly normal dentition. NECK: Supple, LUNGS: Clear to auscultation. Normal chest wall mechanics. HEART: Irregular regular rhythm ABDOMEN: Abdomen soft, non-tender, normo-active bowel sounds, no masses, no rebound or guarding BACK: No CVA TTP. SKIN: No rashes and no bruising. UPPER EXTREMITIES: Upper extremities are grossly normal LOWER EXTREMITIES: Grossly normal, no edema. NEURO EXAM: A&O x3,, normal speech, 5 out of 5 muscle strength upper and lower extremities bilaterally, Intact sensation upper and lower extremities bilaterally PSYCH: Cooperative MEDICAL DECISION MAKING: Reviewed external documents: Discharge summary from 1 week prior History obtained from: Patient ER Course: Patient 83-year-old female presenting with complaint of mechanical fall. Patient denies syncope or near syncope. Patient denies chest pain or shortness of breath. Patient states her legs felt weak and she fell down to her buttock. Patient denies hitting her head or upper extremities. Patient has no active chest pain. Patient's EKG shows A-fib rate controlled which is a diagnosis known for her. Patient has no new traumatic injuries. Patient states that she does not feel safe at home and does not feel that she has enough strength to get around on her own. Patient requesting admission to rehab facility. I discussed with case management team and due to the time of day she was not able to be referred and qualify for rehab and will need to be admitted for further workup and placement. Patient's case discussed with hospital service who accepts the admit her for further treatment evaluation Labs (independently interpreted) are significant for: Mild leukocytosis most likely from recent steroid use Imaging results (independently interpreted): Chest x-ray negative EKG interpretation (independently interpreted): Atrial fibrillation rate controlled no ST segment elevation or depression Medications given: None Consultants: Case management, hospitalist Triage Nursing notes reviewed and agree them. Vital Signs: reviewed and remarkable for: no significant abnormalities Past Med/Surg History Problem List (Updated 06/22/24 @ 22:45 by Cornelius Tam DO) Ambulatory dysfunction (Acute) Fall (Acute) Leg length discrepancy Candidiasis of mouth and esophagus Adrenal insufficiency Hypercalcemia Orthostatic hypotension ADHD Nocturnal hypoxia o2 3L HS. Fracture of acromion of scapula (06/14/24) Acute fracture at the base of the acromion from a fall. Fall (Acute) Weakness (Acute) Atrial fibrillation Ambulatory dysfunction Recurrent falls Contusion of knee, right (Acute) Fall (Acute) Generalized weakness (Acute) Status post reverse total replacement of right shoulder (~03/2024) Obstructive lung disease Acromioclavicular joint arthritis Rotator cuff arthropathy of right shoulder Antiplatelet or antithrombotic long-term use Left ventricular systolic dysfunction Mitral regurgitation Aortic regurgitation Abnormal electrocardiogram Right shoulder pain Left wrist sprain Prediabetes Nonobstructive atherosclerosis of coronary artery Rotator cuff tear Subacromial bursitis Glenohumeral arthritis CAD (coronary artery disease) Anticoagulant long-term use SI (sacroiliac) joint dysfunction Nocturnal hypoxia Osteoarthritis of ankle, left CAD (coronary artery disease) Mild- luminal irregularities only on 2003 cardiac cath Esophageal dysphagia Chronic constipation with overflow incontinence ADHD Stable Chronic obstructive pulmonary disease stable Allergic rhinitis (Chronic) Anxiety disorder (Chronic) Well controlled- follows with psych Benign familial tremor (Chronic) Cervicalgia (Chronic) Controlled substance agreement broken (Chronic) Former smoker (Chronic) Fusion of spine, lumbar region (Chronic) Glaucoma (Chronic) Hyperlipidemia (Chronic) Raynaud's disease (Chronic) Rectocele (Chronic) Restless legs syndrome (Chronic) SNHL (sensorineural hearing loss) (Chronic) Solitary pulmonary nodule (Chronic) Urge incontinence of urine (Chronic) Vitamin D deficiency (Chronic) Hypomagnesemia (Chronic) CKD (chronic kidney disease) stage 3, GFR 30-59 ml/min (Chronic) Depression (Chronic) Anemia (Chronic) Asthma (Chronic) Lumbar stenosis with neurogenic claudication (Chronic) Medical History Pre-diabetes denies CKD (chronic kidney disease) pt denies Mitral regurgitation Left ventricular systolic dysfunction EF 45-50% on 03/2023 echo; > 55% 12/2023 stress echo CAD (coronary artery disease) mild in 2003 per [place] [facility]ology records Aortic regurgitation mild to moderate on 03/2023 echo Nerve pain of head. Gabapentin for. Lung nodule not that pt aware of. Esophageal dysphagia Asthma COPD (chronic obstructive pulmonary disease) Anxiety Raynauds disease Acid reflux controlled, stable per pt Tremor hands History of gastric ulcer History of sepsis (2022) History of skin cancer removed Right lower quadrant abdominal pain evaluated mn end of or 02/2024 - pt reports suspected muscular thing, using voltaren gel with some improvement. 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 Arthritis of neck mild limitation rom. Osteoarthritis bone density is good per pt History of anemia History of COVID-19 (~02/2023) fatigue/lethargy for 3 days. resolved Restless leg syndrome On home oxygen therapy 3-4L N/C at hs Esophageal stenosis "twist in esophagus" Incontinence of urine Hearing deficit b/l HERRERA Glaucoma Depression Hyperlipidemia History of transient cerebral ischemia first entered into chart 12/23/18; pt denies hx mini stroke/TIA or stroke. Rheumatoid arthritis (02/25/13) per pt dx at age with RA. Surgical History History of lumbar fusion x2 most recent 2018 History of foot surgery toes on left foot - pt confirms a total of 4 left foot surgeries. History of foot surgery left removal of bone spur S/P foot surgery, left LEFT FOOT LITTLE TOE AMPUTATED 2022. S/P foot surgery, left left ankle/foot reconstruction (2019) History of total hip arthroplasty right hip H/O toe surgery left foot History of total knee replacement bilateral; right TKA: 05/22/17: SAB x1 at L3-L4 + PNB at [facility] S/P hardware removal right ankle S/P laparotomy removed adhesions to relieve bowel strangulation S/P ankle arthrodesis right ankle History of open reduction and internal fixation (ORIF) procedure right ankle H/O elbow surgery bilateral S/P AMANDA (total abdominal hysterectomy) H/O thumb surgery right x2 History of appendectomy History of colonoscopy History of esophagogastroduodenoscopy (EGD) History of surgical removal of skin lesion History of tonsillectomy Family History Family/Other Coronary heart disease Heart disease Cancer Hypertension Brother Prostate cancer Benign familial tremor Father Benign familial tremor Mother Malignant melanoma Aunt Rheumatoid arthritis Other No family history of adverse response to anesthesia Denies family history of Ovarian cancer Myocardial infarction Breast cancer Colorectal cancer Social History Smoking Status: Former smoker Tobacco Type: Cigarettes Age Started Using Tobacco: 19 (intermittently quit throughout the years); Age Quit Using Tobacco: 81; packs per day: 0.1; Cigarettes Per Day: 2; Second Hand Exposure: No; Do You Dip or Chew Tobacco: No; Hx Alcohol Use: Yes Alcohol type: beer Alcohol Intake Frequency: Monthly or Less Alcohol Intake Frequency Comment: rarely Hx Substance Use: No Preferred Language: Chadian Communication Ability: Effective Visual Impairment: No Limitations Hearing Ability: Hard of Hearing Bottling Room Worker Required: No Beliefs That Will Affect Care: None marital status: Current Living Situation: Alone Current Living Situation Comment: group home apartment/independent 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al status: retired 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: 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[employer], 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 How many Children do You have: 2 Feels Safe at Home: Yes Childhood Exposure to Second-Hand Smoke: No Diet: regular caffeine: Yes during the past year weight has: remained stable Dental Care, Regularly: No Physical Activity Frequency: Daily Seatbelt Use: always Sunscreen Use: Yes (sometimes ) Assistive Devices: Cane, Oxygen - at Night and Walker Allergies Allergies Allergy/AdvReac Type Severity Reaction Status Date / Time azithromycin Allergy Unknown throat Verified 06/14/24 08:51 burned, lost weight chocolate flavor Allergy Unknown hx rash Verified 06/14/24 08:51 fluticasone Allergy Unknown chest pain Verified 06/14/24 08:51 (from Advair) Penicillins Allergy Unknown per Verified 06/14/24 08:51 allergy test procaine Allergy Unknown novacaine Verified 06/14/24 08:51 - anaphylaxis, mouth swelling, dyspnea salmeterol Allergy Unknown chest pain Verified 06/14/24 08:51 (from Advair) moxifloxacin AdvReac Unknown N/V Verified 06/14/24 08:51 NSAIDS (Non-Steroidal AdvReac Unknown advised to Verified 06/14/24 08:51 Anti-Inflamma avoid d/t ulcer hx zolpidem AdvReac Unknown sleep Verified 06/14/24 08:51 walking Home Meds Home Medications Medication Instructions Recorded Confirmed psyllium seed (sugar) oral powder 1 tbsp PO DAILY PRN Constipation 03/03/20 06/22/24 (Metamucil (sugar) oral powder) travoprost 0.004 % eye drops 1 drp OPB QPM 05/03/21 06/22/24 dextroamphetamine-amphetamine 10 10 - 20 mg PO BID 03/07/22 06/22/24 mg tablet (Adderall) ascorbic acid (vitamin C) 500 mg 500 mg PO QAM 11/12/22 06/22/24 tablet (Vitamin C) biotin 10 mg tablet 10 mg PO QAM 11/12/22 06/22/24 guaifenesin 600 mg tablet, 600 mg PO Q6H PRN Congestion 11/12/22 06/22/24 extended release 12 hr (Mucinex) cyanocobalamin (vitamin B-12) 2,500 mcg PO QAM 05/06/23 06/22/24 2,500 mcg tablet vitamin E 800 unit capsule 800 unit PO QAM 05/06/23 06/22/24 buspirone 5 mg tablet 5 mg PO BID Anxiety 02/18/24 06/22/24 albuterol sulfate 2.5 mg/3 mL 3 mg inhalation TID asthma attacks 02/20/24 06/22/24 (0.083 %) solution for nebulization albuterol sulfate 90 mcg/actuation 2 puff inhalation Q6H PRN asthma 02/20/24 06/22/24 aerosol inhaler (Ventolin HFA) diclofenac sodium 1 % topical gel 2 g topical DAILY PRN Pain 02/20/24 06/22/24 loratadine 10 mg tablet 10 mg PO QAM 02/20/24 06/22/24 lamotrigine 150 mg tablet 150 mg PO HS 03/29/24 06/22/24 (Lamictal) pantoprazole 40 mg tablet,delayed 40 mg PO QAM 03/29/24 06/22/24 release (Protonix) brimonidine 0.2 %-timolol 0.5 % 1 drp OPB BID 06/14/24 06/22/24 eye drops (Combigan) umeclidinium 62.5 mcg/actuation 1 inh inhalation DAILY PRN 06/14/24 06/22/24 blister powder for inhalation Cough/Wheezing (Incruse Ellipta) Previous Rx's Medication Instructions Recorded aspirin 81 mg tablet,delayed 81 mg PO HS #30 tabs 08/18/20 release multivitamin 1 tab PO QAM #30 tabs 09/13/20 Oxygen Home #1 ea 03/27/21 Scooter #1 ea 04/03/21 nebulizer accessories #2 ea 03/31/23 nebulizers #1 ea 03/31/23 diaper,brief,adult,disposable #6 ea 10/21/23 (Select Disposable Briefs) atorvastatin 40 mg tablet (Lipitor) 40 mg PO HS #90 tabs 12/04/23 digoxin 125 mcg (0.125 mg) tablet 125 mcg PO QAM #90 tabs 12/04/23 montelukast 10 mg tablet 10 mg PO HS #90 tabs 12/04/23 (Singulair) oxybutynin chloride 5 mg 5 mg PO QAM #90 tabs 12/04/23 tablet,extended release 24 hr apixaban 5 mg tablet (Eliquis) 5 mg PO BID #60 tabs 01/21/24 diltiazem HCl 180 mg capsule,24 360 mg (2 x 180 mg) PO DAILY #180 04/26/24 hr,extended release caps magnesium oxide 400 mg PO HS #90 tabs 05/17/24 pramipexole 0.5 mg tablet 0.5 mg PO HS #90 tabs 05/17/24 acetaminophen 500 mg tablet 1,000 mg (2 x 500 mg) PO Q8H PRN 06/18/24 (Tylenol Extra Strength) Pain #0 tabs escitalopram oxalate 20 mg tablet 20 mg PO QAM #0 tabs 06/18/24 (Lexapro) gabapentin 100 mg capsule 200 mg (2 x 100 mg) PO BID #120 06/18/24 caps hydrocodone 5 mg-acetaminophen 325 1 tab PO Q6H PRN pain #10 tabs 06/18/24 mg tablet hydrocortisone 5 mg tablet 5 mg PO .BID as directed #180 tabs 06/18/24 trazodone 150 mg tablet 150 mg PO HS #45 tabs 06/18/24 Results & Data (ED) Vital Signs Vital Signs - 24 hr 06/22/24 16:13 06/22/24 16:35 06/22/24 16:38 Temperature 36.6 C Temperature Source Oral Pulse Rate 86 84 Pulse Rate [Apical] Pulse Rhythm Pulse Rhythm [Apical] Pulse Strength [Apical] Respiratory Rate 20 Respiratory Effort / Characteristics Respiratory Depth Respiratory Pattern Blood Pressure 155/83 H Blood Pressure [Left Arm] Blood Pressure Mean 107 Blood Pressure Mean [Left Arm] Blood Pressure Position [Left Arm] Pulse Oximetry 97 Oxygen Delivery Method Room Air Room Air Sepsis Recent Fever Within 48 Hours No Sepsis New/Unexplained Change in Mental Status No Sepsis Action Taken by Nursing No Action Required 06/22/24 16:55 06/22/24 18:02 06/22/24 18:30 Temperature Temperature Source Pulse Rate 80 75 76 Pulse Rate [Apical] Pulse Rhythm Regular Pulse Rhythm [Apical] Pulse Strength [Apical] Respiratory Rate 20 20 20 Respiratory Effort / Characteristics Respiratory Depth Respiratory Pattern Blood Pressure 137/78 137/74 Blood Pressure [Left Arm] Blood Pressure Mean 101 103 Blood Pressure Mean [Left Arm] Blood Pressure Position [Left Arm] Pulse Oximetry 96 96 97 Oxygen Delivery Method Room Air Sepsis Recent Fever Within 48 Hours Sepsis New/Unexplained Change in Mental Status Sepsis Action Taken by Nursing 06/22/24 18:52 Temperature Temperature Source Pulse Rate Pulse Rate [Apical] 84 Pulse Rhythm Pulse Rhythm [Apical] Regular Pulse Strength [Apical] Normal Respiratory Rate 18 Respiratory Effort / Characteristics Non-Labored Respiratory Depth Normal Respiratory Pattern Regular Blood Pressure Blood Pressure [Left Arm] 137/74 Blood Pressure Mean Blood Pressure Mean [Left Arm] 95 Blood Pressure Position [Left Arm] Sitting Pulse Oximetry 93 Oxygen Delivery Method Room Air Sepsis Recent Fever Within 48 Hours Sepsis New/Unexplained Change in Mental Status Sepsis Action Taken by Nursing Laboratory Data 06/22/24 16:30 06/22/24 16:30 Lab Results 06/22/24 Range/Units 16:30 WBC 13.46 H (4.8-10.8) K/ul RBC 4.52 (4.20-5.40) M/uL Hgb 12.9 (12.0-16.0) g/dl Hct 39.6 (37.0-47.0) % MCV 87.6 (80.0-100.0) fL MCH 28.5 (25.0-34.0) pg MCHC 32.6 (32.0-36.0) g/dL RDW Std Deviation 53.1 H (36.4-46.3) fL RDW Coeff of Aspen 16.6 H (11.5-14.5) % Plt Count 287 (130-400) K/uL MPV 9.3 L (9.4-12.4) fL Immature Gran % (Auto) 1.6 % Neut % (Auto) 73.2 % Lymph % (Auto) 15.8 % Blount % (Auto) 7.9 % Eos % (Auto) 1.4 % Baso % (Auto) 0.1 % Neut # (Auto) 9.83 H (1.40-6.50) K/uL Lymph # (Auto) 2.13 (1.20-3.40) K/uL Blount # (Auto) 1.07 H (0.11-0.59) K/uL Eos # (Auto) 0.19 (0.00-0.50) K/uL Baso # (Auto) 0.02 (0.00-0.20) K/uL Immature Gran # (Auto) 0.22 H (0.01-0.20) K/uL Sodium 138 (136-145) mmol/L Potassium 3.7 (3.5-5.1) mmol/L Chloride 103 (98-107) mmol/L Carbon Dioxide 29 (21-32) mmol/L Anion Gap 6 (3-11) BUN 39 H (6-23) mg/dl Creatinine 0.62 (0.6-1.2) mg/dl Est Cr Clr Drug Dosing 68.4 ml/min eGFR 87.76 BUN/Creatinine Ratio 62.9 H (10-20) Glucose 126 H (70-99(Fasting)) mg/dl Calcium 10.3 (8.6-10.3) mg/dl Magnesium 1.7 (1.7-2.4) mg/dl Total Bilirubin 0.4 (0.2-1.0) mg/dl AST 17 (13-39) U/L ALT 27 (7-52) U/L Alkaline Phosphatase 90 (34-104) U/L Troponin I High Sens 7.8 (0-14) pg/ml Total Protein 6.5 (6.0-8.3) gm/dl Albumin 3.9 (3.4-5.0) gm/dl Globulin 2.6 (2.5-4.0) gm/dl Albumin/Globulin Ratio 1.5 (0.9-2) TSH 1.056 (0.300-4.500) uIu/ml Imaging Data Radiologist's Impression: Chest X-Ray 06/22/24 16:47 INDICATION: Chest pain. TECHNIQUE: Frontal radiograph of the chest. COMPARISON: Radiograph from 06/13/2024. FINDINGS: Cardiomegaly. Mild pulmonary vascular congestion. No infiltrate, pleural effusion or pneumothorax. No acute osseous abnormality evident. Right shoulder prosthesis noted. IMPRESSION: Mild pulmonary vascular congestion. Electronically signed by Ankit Winter 06-22-2024 7:22 PM Discharge Plan Visit Data Chief Complaint: Weakness Stated Complaint: FALL, WEAKNESS ED Provider: Cornelius Tam Discharge Problem: Fall, Ambulatory dysfunction Discharge Instructions Interventions: ED Discharge Assessment Last Done: 06/22/24 21:56
[2024-06-22 17:05] LABS: Basophils # (auto) 0.02 K/uL (0.00-0.20); Basophils % (auto) 0.1 %; Eosinophils # (auto) 0.19 K/uL (0.00-0.50); Eosinophils % (auto) 1.4 %; Hematocrit (blood only) 39.6 % (37.0-47.0); Hemoglobin 12.9 g/dl (12.0-16.0); Immature Granulocytes # (auto) 0.22 K/uL (0.01-0.20); Immature Granulocytes % (auto) 1.6 %; Lymphocytes # (auto) 2.13 K/uL (1.20-3.40); Lymphocytes % (auto) 15.8 %; Mean Corpuscular Hemoglobin 28.5 pg (25.0-34.0); Mean Corpuscular Hgb Conc 32.6 g/dL (32.0-36.0); Mean Corpuscular Volume 87.6 fL (80.0-100.0); Mean Platelet Volume 9.3 fL (9.4-12.4); Monocytes # (auto) 1.07 K/uL (0.11-0.59); Monocytes % (auto) 7.9 %; Neutrophils # (auto) 9.83 K/uL (1.40-6.50); Neutrophils % (auto) 73.2 %; Platelet Count 287 K/uL (130-400); RDW Coefficient of Variation 16.6 % (11.5-14.5); RDW Standard Deviation 53.1 fL (36.4-46.3); Red Blood Count 4.52 M/uL (4.20-5.40); White Blood Count 13.46 K/ul (4.8-10.8)
[2024-06-22 17:27] LABS: Albumin Globulin Ratio 1.5 (0.9-2); Albumin Level 3.9 gm/dl (3.4-5.0); BUN Creatinine Ratio 62.9 (10-20); Bilirubin,Total 0.4 mg/dl (0.2-1.0); Calcium 10.3 mg/dl (8.6-10.3); Creatinine Clr Calc Pharmacy 68.4 ml/min; Globulin 2.6 gm/dl (2.5-4.0); Potassium 3.7 mmol/L (3.5-5.1); Total Protein 6.5 gm/dl (6.0-8.3)
[2024-06-22 17:33] LABS: Troponin I High Sensitivity 7.8 pg/ml (0-14)
[2024-06-22 17:42] LABS: Thyroid Stimulating Hormone 1.056 uIu/ml (0.300-4.500)
--- NOTE | 2024-06-22 19:09 | History & Physical Report ---
Date of Service June 22, 2024 Assessment & Plan (1) Ambulatory dysfunction: (2) Generalized weakness: Plan 83-year-old female PMHx A-fib (on Eliquis), CAD, asthma, CKD, HLD, glaucoma, and depression presenting for weakness and fall onto her bottom. Patient was recently admitted to [facility] 06/14/2024 to 06/18/2024 for adrenal insufficiency, orthostatic hypotension, ambulatory dysfunction, and recurrent falls. ED workup reveals WBC 13.46, neutrophil predominant, CMP with BUN 39, BUN/creatinine ratio 62.9, TSH WNL, troponin WNL. CXR w/ mild vascular congestion. #Ambulatory dysfunction/weakness Weakness ongoing, previously required admission last month, appears to be complicated by adrenal insufficiency and orthostatic hypotension. History of recurrent falls with some dizziness, but no associated symptoms of syncope or chest pain with these episodes. Prior hospitalization had recommendations of PT/OT both advising rehab, patient had declined at that time. Presenting today as she is ready to have a rehab facility given her ongoing weakness and falls. Stable and nontoxic-appearing at time of admission. - WBC of 13.46, but no clear source of leukocytosis, CXR w/ mild vascular congestion; is on chronic steroids; pending UA - Troponin WNL, EKG without ischemic changes, and currently rate controlled - PT/OT consults placed, fall/aspiration precautions - Bilateral SCDs for DVT prophylaxis - Pending Mg #A-fib Previous history of A-fib, on Eliquis. On digoxin and diltiazem daily. Unsuspecting to be the cause of weakness, however, will continue to monitor. - EKG on admission showed A-fib, rate controlled; telemetry showing A-fib with also rate controlled rate 80s to 90s - Continue to monitor on telemetry #Adrenal insufficiency Diagnosed and evaluated at most recent hospitalization, started on steroids - Continue steroids, tapering as prescribed - To follow with endocrinology #Fx R acromion of scapula- On CT prior admission, still healing but pain controlled; will follow with ortho outpatient, sling x6 weeks total #Anxiety/depression- Escitalopram at decreased dose per last admission, BuSpar #Nocturnal hypoxia- O2 3L via NC HS #ADHD- Continue medications Dispo: Admit, med telemetry VTE prophylaxis: SCDs This document was dictated utilizing [employer]. Please excuse any grammatical errors that may be secondary to use of this software. Admission and Anticipated Discharge Date Admission Date: 06/22/2023 History of Present Illness Chief Complaint: Weakness, fall Primary Care Provider: Faiza Costa MD 83-year-old female PMHx A-fib (on Eliquis), CAD, asthma, seek Kd, HLD, glaucoma, and depression presenting for weakness and fall onto her bottom. Patient was recently admitted to [facility] 06/14/2024 to 06/18/2024 for adrenal insufficiency, orthostatic hypotension, ambulatory dysfunction, and recurrent falls. Presenting today after ambulating at her house when she had an episode of weakness where her legs "gave out." Patient is on Eliquis for A-fib, but denies hitting her head or other body parts. States that she just fell on her bottom and was unable to get herself back up. Was moved to a chair and could not stand on her legs because they felt so weak. Did not have episodes of syncope, chest pain, or SOB prior to this event. ED workup reveals WBC 13.46, neutrophil predominant, CMP with BUN 39, BUN/creatinine ratio 62.9, TSH WNL, troponin WNL. CXR w/ mild vascular congestion. Please see Dr. Tapia's attestation for adjustments/additions to treatment plan. Allergies Allergy/AdvReac Type Severity Reaction Status Date / Time azithromycin Allergy Unknown throat Verified 06/14/24 08:51 burned, lost weight chocolate flavor Allergy Unknown hx rash Verified 06/14/24 08:51 fluticasone Allergy Unknown chest pain Verified 06/14/24 08:51 (from Advair) Penicillins Allergy Unknown per Verified 06/14/24 08:51 allergy test procaine Allergy Unknown novacaine Verified 06/14/24 08:51 - anaphylaxis, mouth swelling, dyspnea salmeterol Allergy Unknown chest pain Verified 06/14/24 08:51 (from Advair) moxifloxacin AdvReac Unknown N/V Verified 06/14/24 08:51 NSAIDS (Non-Steroidal AdvReac Unknown advised to Verified 06/14/24 08:51 Anti-Inflamma avoid d/t ulcer hx zolpidem AdvReac Unknown sleep Verified 06/14/24 08:51 walking Home Medications Medication Instructions Recorded Confirmed Type psyllium seed (sugar) oral powder 1 tbsp PO DAILY PRN Constipation 03/03/20 06/22/24 History (Metamucil (sugar) oral powder) aspirin 81 mg tablet,delayed 81 mg PO HS #30 tabs 08/18/20 06/22/24 Rx release multivitamin 1 tab PO QAM #30 tabs 09/13/20 06/22/24 Rx Oxygen Home #1 ea 03/27/21 05/28/24 Rx Scooter #1 ea 04/03/21 05/28/24 Rx travoprost 0.004 % eye drops 1 drp OPB QPM 05/03/21 06/22/24 History dextroamphetamine-amphetamine 10 10 - 20 mg PO BID 03/07/22 06/22/24 History mg tablet (Adderall) ascorbic acid (vitamin C) 500 mg 500 mg PO QAM 11/12/22 06/22/24 History tablet (Vitamin C) biotin 10 mg tablet 10 mg PO QAM 11/12/22 06/22/24 History guaifenesin 600 mg tablet, 600 mg PO Q6H PRN Congestion 11/12/22 06/22/24 History extended release 12 hr (Mucinex) nebulizer accessories #2 ea 03/31/23 05/28/24 Rx nebulizers #1 ea 03/31/23 05/28/24 Rx cyanocobalamin (vitamin B-12) 2,500 mcg PO QAM 05/06/23 06/22/24 History 2,500 mcg tablet vitamin E 800 unit capsule 800 unit PO QAM 05/06/23 06/22/24 History diaper,brief,adult,disposable #6 ea 10/21/23 05/28/24 Rx (Select Disposable Briefs) atorvastatin 40 mg tablet (Lipitor) 40 mg PO HS #90 tabs 12/04/23 06/22/24 Rx digoxin 125 mcg (0.125 mg) tablet 125 mcg PO QAM #90 tabs 12/04/23 06/22/24 Rx montelukast 10 mg tablet 10 mg PO HS #90 tabs 12/04/23 06/22/24 Rx (Singulair) oxybutynin chloride 5 mg 5 mg PO QAM #90 tabs 12/04/23 06/22/24 Rx tablet,extended release 24 hr apixaban 5 mg tablet (Eliquis) 5 mg PO BID #60 tabs 01/21/24 06/22/24 Rx buspirone 5 mg tablet 5 mg PO BID Anxiety 02/18/24 06/22/24 History albuterol sulfate 2.5 mg/3 mL 3 mg inhalation TID asthma attacks 02/20/24 06/22/24 History (0.083 %) solution for nebulization albuterol sulfate 90 mcg/actuation 2 puff inhalation Q6H PRN asthma 02/20/24 06/22/24 History aerosol inhaler (Ventolin HFA) diclofenac sodium 1 % topical gel 2 g topical DAILY PRN Pain 02/20/24 06/22/24 History loratadine 10 mg tablet 10 mg PO QAM 02/20/24 06/22/24 History lamotrigine 150 mg tablet 150 mg PO HS 03/29/24 06/22/24 History (Lamictal) pantoprazole 40 mg tablet,delayed 40 mg PO QAM 03/29/24 06/22/24 History release (Protonix) diltiazem HCl 180 mg capsule,24 360 mg (2 x 180 mg) PO DAILY #180 04/26/24 06/22/24 Rx hr,extended release caps magnesium oxide 400 mg PO HS #90 tabs 05/17/24 06/22/24 Rx pramipexole 0.5 mg tablet 0.5 mg PO HS #90 tabs 05/17/24 06/22/24 Rx brimonidine 0.2 %-timolol 0.5 % 1 drp OPB BID 06/14/24 06/22/24 History eye drops (Combigan) umeclidinium 62.5 mcg/actuation 1 inh inhalation DAILY PRN 06/14/24 06/22/24 History blister powder for inhalation Cough/Wheezing (Incruse Ellipta) acetaminophen 500 mg tablet 1,000 mg (2 x 500 mg) PO Q8H PRN 06/18/24 06/22/24 Rx (Tylenol Extra Strength) Pain #0 tabs escitalopram oxalate 20 mg tablet 20 mg PO QAM #0 tabs 06/18/24 06/22/24 Rx (Lexapro) gabapentin 100 mg capsule 200 mg (2 x 100 mg) PO BID #120 06/18/24 06/22/24 Rx caps hydrocodone 5 mg-acetaminophen 325 1 tab PO Q6H PRN pain #10 tabs 06/18/24 Rx mg tablet hydrocortisone 5 mg tablet 5 mg PO .BID as directed #180 tabs 06/18/24 06/22/24 Rx trazodone 150 mg tablet 150 mg PO HS #45 tabs 06/18/24 06/22/24 Rx Past Med/Surg History Problem List Leg length discrepancy Candidiasis of mouth and esophagus Adrenal insufficiency Hypercalcemia Orthostatic hypotension ADHD Nocturnal hypoxia o2 3L HS. Fracture of acromion of scapula (06/14/24) Acute fracture at the base of the acromion from a fall. Fall (Acute) Weakness (Acute) Atrial fibrillation Ambulatory dysfunction Recurrent falls Contusion of knee, right (Acute) Fall (Acute) Generalized weakness (Acute) Status post reverse total replacement of right shoulder (~03/2024) Obstructive lung disease Acromioclavicular joint arthritis Rotator cuff arthropathy of right shoulder Antiplatelet or antithrombotic long-term use Left ventricular systolic dysfunction Mitral regurgitation Aortic regurgitation Abnormal electrocardiogram Right shoulder pain Left wrist sprain Prediabetes Nonobstructive atherosclerosis of coronary artery Rotator cuff tear Subacromial bursitis Glenohumeral arthritis CAD (coronary artery disease) Anticoagulant long-term use SI (sacroiliac) joint dysfunction Nocturnal hypoxia Osteoarthritis of ankle, left CAD (coronary artery disease) Mild- luminal irregularities only on 2003 cardiac cath Esophageal dysphagia Chronic constipation with overflow incontinence ADHD Stable Chronic obstructive pulmonary disease stable Allergic rhinitis (Chronic) Anxiety disorder (Chronic) Well controlled- follows with psych Benign familial tremor (Chronic) Cervicalgia (Chronic) Controlled substance agreement broken (Chronic) Former smoker (Chronic) Fusion of spine, lumbar region (Chronic) Glaucoma (Chronic) Hyperlipidemia (Chronic) Raynaud's disease (Chronic) Rectocele (Chronic) Restless legs syndrome (Chronic) SNHL (sensorineural hearing loss) (Chronic) Solitary pulmonary nodule (Chronic) Urge incontinence of urine (Chronic) Vitamin D deficiency (Chronic) Hypomagnesemia (Chronic) CKD (chronic kidney disease) stage 3, GFR 30-59 ml/min (Chronic) Depression (Chronic) Anemia (Chronic) Asthma (Chronic) Lumbar stenosis with neurogenic claudication (Chronic) Medical History Pre-diabetes denies CKD (chronic kidney disease) pt denies Mitral regurgitation Left ventricular systolic dysfunction EF 45-50% on 03/2023 echo; > 55% 12/2023 stress echo CAD (coronary artery disease) mild in 2003 per [place] cardiology records Aortic regurgitation mild to moderate on 03/2023 echo Nerve pain of head. Gabapentin for. Lung nodule not that pt aware of. Esophageal dysphagia Asthma COPD (chronic obstructive pulmonary disease) Anxiety Raynauds disease Acid reflux controlled, stable per pt Tremor hands History of gastric ulcer History of sepsis (2022) History of skin cancer removed Right lower quadrant abdominal pain evaluated mn end of or 02/2024 - pt reports suspected muscular thing, using voltaren gel with some improvement. 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 Arthritis of neck mild limitation rom. Osteoarthritis bone density is good per pt History of anemia History of COVID-19 (~02/2023) fatigue/lethargy for 3 days. resolved Restless leg syndrome On home oxygen therapy 3-4L N/C at hs Esophageal stenosis "twist in esophagus" Incontinence of urine Hearing deficit b/l HERRERA Glaucoma Depression Hyperlipidemia History of transient cerebral ischemia first entered into chart 12/23/18; pt denies hx mini stroke/TIA or stroke. Rheumatoid arthritis (02/25/13) per pt dx at age with RA. Surgical History History of lumbar fusion x2 most recent 2018 History of foot surgery toes on left foot - pt confirms a total of 4 left foot surgeries. History of foot surgery left removal of bone spur S/P foot surgery, left LEFT FOOT LITTLE TOE AMPUTATED 2022. S/P foot surgery, left left ankle/foot reconstruction (2019) History of total hip arthroplasty right hip H/O toe surgery left foot History of total knee replacement bilateral; right TKA: 05/22/17: SAB x1 at L3-L4 + PNB at [facility] S/P hardware removal right ankle S/P laparotomy removed adhesions to relieve bowel strangulation S/P ankle arthrodesis right ankle History of open reduction and internal fixation (ORIF) procedure right ankle H/O elbow surgery bilateral S/P AMANDA (total abdominal hysterectomy) H/O thumb surgery right x2 History of appendectomy History of colonoscopy History of esophagogastroduodenoscopy (EGD) History of surgical removal of skin lesion History of tonsillectomy Family History Family/Other Coronary heart disease Heart disease Cancer Hypertension Brother Prostate cancer Benign familial tremor Father Benign familial tremor Mother Malignant melanoma Aunt Rheumatoid arthritis Other No family history of adverse response to anesthesia Denies family history of Ovarian cancer Myocardial infarction Breast cancer Colorectal cancer Social History Smoking Status: Former smoker Tobacco Type: Cigarettes Age Started Using Tobacco: 19 (intermittently quit throughout the years); Age Quit Using Tobacco: 81; packs per day: 0.1; Cigarettes Per Day: 2; Second Hand Exposure: No; Do You Dip or Chew Tobacco: No; Hx Alcohol Use: Yes Alcohol type: beer Alcohol Intake Frequency: Monthly or Less Alcohol Intake Frequency Comment: rarely Hx Substance Use: No Preferred Language: Sami Communication Ability: Effective Visual Impairment: No Limitations Hearing Ability: Hard of Hearing Administrative Support Assoc Required: No Beliefs That Will Affect Care: None marital status: Current Living Situation: Alone Current Living Situation Comment: alf apartment/independent 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al status: retired 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: 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[employer], 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 How many Children do You have: 2 Feels Safe at Home: Yes Childhood Exposure to Second-Hand Smoke: No Diet: regular caffeine: Yes during the past year weight has: remained stable Dental Care, Regularly: No Physical Activity Frequency: Daily Seatbelt Use: always Sunscreen Use: Yes (sometimes ) Assistive Devices: Cane, Oxygen - at Night and Walker Review of Systems Review of Systems: All systems reviewed & are unremarkable except as noted in Subjective Physical Exam Physical Exam: General: No acute distress Skin: Warm and dry, without rashes or lesions Head: Normocephalic, atraumatic Eyes: PERRL, conjunctivae erythematous (at patient's baseline), sclera non- icteric; EOM intact ENT: External ear and ear canal without swelling; nose atraumatic; good dentition, tongue normal appearance, pharynx normal without tonsillar swelling or exudate Neck: Supple, no LAD; no JVD Cardio: RRR, no M/G/R, S1 and S2 normal Resp: No respiratory distress, Lungs CTA in all lobes bilaterally, no wheezes, rales, or rhonchi Abdomen: Soft, symmetric, nontender; No masses or hepatosplenomegaly; Bowel sounds normoactive MSK: No deformities, R arm in sling, otherwise full ROM throughout; pulses palpable and equal; no edema. Neuro: Awake, alert; Muscle strength 5/5 bilaterally in UE/LE; Sensation intact bilaterally; CN grossly intact Psych: Appropriate mood and affect; good judgement and insight. Results & Data Results & Data Vital Signs (Past 12 Hours) Vital Signs Temp Pulse Pulse Resp BP BP Pulse Ox 06/22/24 18:52 84 18 137/74 93 06/22/24 18:30 76 20 137/74 97 06/22/24 18:02 75 20 137/78 96 06/22/24 16:55 80 20 96 06/22/24 16:38 84 06/22/24 16:35 06/22/24 16:13 36.6 C 86 20 155/83 H 97 O2 Del Method 06/22/24 18:52 Room Air 06/22/24 18:30 06/22/24 18:02 06/22/24 16:55 Room Air 06/22/24 16:38 06/22/24 16:35 Room Air 06/22/24 16:13 Room Air Laboratory Results 06/22/24 16:30 WBC 13.46 H RBC 4.52 Hgb 12.9 Hct 39.6 MCV 87.6 MCH 28.5 MCHC 32.6 RDW Std Deviation 53.1 H RDW Coeff of Aspen 16.6 H Plt Count 287 MPV 9.3 L Immature Gran % (Auto) 1.6 Neut % (Auto) 73.2 Lymph % (Auto) 15.8 [place] % (Auto) 7.9 Eos % (Auto) 1.4 Baso % (Auto) 0.1 Neut # (Auto) 9.83 H Lymph # (Auto) 2.13 [place] # (Auto) 1.07 H Eos # (Auto) 0.19 Baso # (Auto) 0.02 Immature Gran # (Auto) 0.22 H Sodium 138 Potassium 3.7 Chloride 103 Carbon Dioxide 29 Anion Gap 6 BUN 39 H Creatinine 0.62 Est Cr Clr Drug Dosing 68.4 eGFR 87.76 BUN/Creatinine Ratio 62.9 H Glucose 126 H Calcium 10.3 Total Bilirubin 0.4 AST 17 ALT 27 Alkaline Phosphatase 90 Troponin I High Sens 7.8 Total Protein 6.5 Albumin 3.9 Globulin 2.6 Albumin/Globulin Ratio 1.5 TSH 1.056 Diagnostic Findings Chest X-Ray 06/22/24 16:47 INDICATION: Chest pain. TECHNIQUE: Frontal radiograph of the chest. COMPARISON: Radiograph from 06/13/2024. FINDINGS: Cardiomegaly. Mild pulmonary vascular congestion. No infiltrate, pleural effusion or pneumothorax. No acute osseous abnormality evident. Right shoulder prosthesis noted. IMPRESSION: Mild pulmonary vascular congestion. Electronically signed by Ankit Winter 06-22-2024 7:22 PM ECG Additional Comments: A-fib, nonspecific ST and T wave abnormality 85 bpm, QRS 92, QT/QTc 354/421, PRT */41/-4 Code Status & VTE Plan Code Status DNR/DNI Supervising Physician Co-Signing Physician Notes Patient seen and examined, chart reviewed, case discussed with WILDER Berger and I agree with the assessment and plan as above. In brief, patient is a pleasant 83yo female with history of AF on Eliquis, CAD, Asthma presenting with generalized weakness and recent fall. Patient was recently admitted and recommended rehab placement which was declined - patient returns now with ongoing weakness and ambulatory dysfunction and would like to be considered for rehab placement. No additional complaints On exam she is resting comfortably, NAD Right arm in sling from recent fracture of right acromion process +S1/S2, irregularly irregular Lungs CTA Abd soft, NT, ND Labs and images reviewed WBC=13.46 UA Pending Assessment/Plan PT/OT evaluation with rehab placement if indicated Awaiting UA Monitor for evidence of infection Remainder as above PG Care Time/CCT Total # of Minutes Spent Total Time Spent with Patient: Total time spent is greater than 50% in coordination of care (as documented) at patient's floor/unit and/or counseling patient: Coding Level of Care Code 99015 INT INP/OBS CARE 3/75MIN Diagnoses Ambulatory dysfunction R26.2 Generalized weakness R53.1
--- NOTE | 2024-06-22 19:22 | XRay Report ---
INDICATION: Chest pain. TECHNIQUE: Frontal radiograph of the chest. COMPARISON: Radiograph from 06/13/2024. FINDINGS: Cardiomegaly. Mild pulmonary vascular congestion. No infiltrate, pleural effusion or pneumothorax. No acute osseous abnormality evident. Right shoulder prosthesis noted. IMPRESSION: Mild pulmonary vascular congestion. Electronically signed by Ankit Winter 06-22-2024 7:22 PM
[2024-06-22 20:00] LABS: Magnesium 1.7 mg/dl (1.7-2.4)
[2024-06-23 01:10] LABS: Appearance Urine Clear (Clear); Bilirubin Urine Negative (Negative); Blood Urine Negative (Negative); Color Urine Yellow; Glucose Urine UA Trace (Negative); Ketones Urine Negative (Negative); Leukocyte Esterase Urine Negative (Negative); Nitrite Urine Negative (Negative); Protein Urine Negative (Negative); Specific Gravity Urine 1.021 (1.000-1.030); Urobilinogen Urine Negative (Negative); pH Urine 6.5 (4.5-7.5)
[2024-06-23] MEDS ORDERED: DICLOFENAC SOD 1% GEL 100 GM TUBE EXT PRN (03:59)
[2024-06-23] MEDS ORDERED: ALBUTEROL HFA 8 GM INHALER INH PRN (03:59)
[2024-06-23] MEDS: HYDROCODONE/ACETAMOPHEN 5/325MG TAB PO PRN (05:05)
[2024-06-23] MEDS: DEXTROAMPHETAMINE/AMPHETAMINE IR 20 MG TAB PO SCH (06:03)
--- NOTE | 2024-06-23 08:41 | Electrocardiogram Report ---
Test Reason : Blood Pressure : */* mmHG Vent. Rate : 85 BPM Atrial Rate : * BPM P-R Int : * ms QRS Dur : 92 ms QT Int : 354 ms P-R-T Axes : * 41 -4 degrees QTcB Int : 421 ms Atrial fibrillation Nonspecific ST and T wave abnormality Abnormal ECG When compared with ECG of 14-Jun-2024 05:48, No significant change was found Confirmed by Hugo Mendes ([id number]) on 06/23/2024 8:41:00 AM Referred By: REFERRED SELF Confirmed By: Hugo Mendes
[2024-06-23] MEDS: LORATADINE 10 MG TAB PO SCH (08:51)
[2024-06-23] MEDS: OXYBUTYNIN CHLORIDE XL 5 MG TABCR PO SCH (08:52)
[2024-06-23] MEDS: dilTIAZem HCL 180 MG CAPCR PO SCH (08:52)
[2024-06-23] MEDS: GABAPENTIN 100 MG CAP PO SCH (08:52)
[2024-06-23] MEDS: ESCITALOPRAM OXALATE 20 MG TAB PO SCH (08:53)
[2024-06-23] MEDS: busPIRone 5 MG TAB PO SCH (08:53)
[2024-06-23] MEDS: PANTOprazole 40 MG TAB PO SCH (08:53)
[2024-06-23] MEDS: APIXABAN 5 MG TABLET PO SCH (08:53)
[2024-06-23 09:12] LABS: Hematocrit (blood only) 41.5 % (37.0-47.0); Hemoglobin 13.5 g/dl (12.0-16.0); Mean Corpuscular Hemoglobin 28.2 pg (25.0-34.0); Mean Corpuscular Hgb Conc 32.5 g/dL (32.0-36.0); Mean Corpuscular Volume 86.6 fL (80.0-100.0); Mean Platelet Volume 9.2 fL (9.4-12.4); Platelet Count 255 K/uL (130-400); RDW Coefficient of Variation 16.7 % (11.5-14.5); RDW Standard Deviation 52.8 fL (36.4-46.3); Red Blood Count 4.79 M/uL (4.20-5.40); White Blood Count 12.61 K/ul (4.8-10.8)
[2024-06-23 09:35] LABS: BUN Creatinine Ratio 45.5 (10-20); Calcium 10.1 mg/dl (8.6-10.3); Creatinine Clr Calc Pharmacy 93.8 ml/min; Potassium 3.6 mmol/L (3.5-5.1)
[2024-06-23] MEDS ORDERED: NON-FORMULARY MEDICATION (Brimonidine-Timolol [Combigan] 0.2-0.5 % drops) OPB SCH (10:30)
[2024-06-23] MEDS: HYDROCORTISONE 10 MG TAB PO SCH (10:38)
[2024-06-23] MEDS: TIMOLOL MALEATE 0.5% OP SOLN 5 ML BTL OPB SCH (13:55)
[2024-06-23] MEDS: BRIMONIDINE TARTRATE 0.2% 5ML OPB SCH (13:56)
--- NOTE | 2024-06-23 14:36 | Hospitalist Progress Note ---
Date of Service June 23, 2024 Assessment & Plan (1) Ambulatory dysfunction: (2) Generalized weakness: Plan 83-year-old female PMHx A-fib (on Eliquis), CAD, asthma, CKD, HLD, glaucoma, and depression presenting for weakness and fall onto her bottom. Patient was recently admitted to [facility] 06/14/2024 to 06/18/2024 for adrenal insufficiency, orthostatic hypotension, ambulatory dysfunction, and recurrent falls. #Ambulatory dysfunction/weakness Weakness ongoing, previously required admission last month, appears to be complicated by adrenal insufficiency and orthostatic hypotension. History of recurrent falls with some dizziness, but no associated symptoms of syncope or chest pain with these episodes. Prior hospitalization had recommendations of PT/OT both advising rehab, patient had declined at that time. Presenting today as she is ready to have a rehab facility given her ongoing weakness and falls. Stable and nontoxic-appearing at time of admission. -CBC w/ improvement of leukocytosis to 12.61, BMP stable electrolytes and kidney function -CXR w/ mild vascular congestion -UA negative -Troponin WNL, EKG w/o ischemic changes, rate controlled A fib -orthostatic vitals completed 06/23 - negative -PT/OT pending -Fall precautions #A-fib Previous history of A-fib, on Eliquis. On digoxin and diltiazem daily. Unsuspecting to be the cause of weakness, however, will continue to monitor. - EKG on admission showed A-fib, rate controlled; telemetry showing A-fib with also rate controlled rate 80s to 90s - Continue to monitor on telemetry, can likely be downgraded to med surg after 24 hours of monitoring. #Adrenal insufficiency Diagnosed and evaluated at most recent hospitalization, started on steroids - Continue steroids, tapering as prescribed - on hydrocortisone 10mg BID currently. - To follow with endocrinology Chronic conditions: Fx R acromion of scapula- On CT prior admission, still healing but pain controlled; will follow with ortho outpatient, sling x6 weeks total Anxiety/depression- Escitalopram at decreased dose per last admission, BuSpar Nocturnal hypoxia- O2 3L via NC HS ADHD- Continue medications Dispo: Admit, med telemetry VTE prophylaxis: SCDs patient medically stable for discharge pending rehab placement. Admission and Anticipated Discharge Date Admission Date: June 22, 2024 Subjective Patient seen and examined this afternoon. Patient denies any complaints today. She states that she had no symptoms prior to her fall. She felt weak and fell to the floor. She did not strike her head. She states that her last hospital stay she only refused rehab because she had to get to an appointment to set up caregivers in her home. She is now agreeable to rehab. Physical Exam Constitutional: WD/WN, vitals as above Eyes: PERRL, conjunctivae normal, anicteric sclerae Respiratory: breathing unlabored Cardiovascular: well perfused Psychiatric: A+Ox3, euthymic affect Results & Data Results & Data Vital Signs (Past 12 Hours) Vital Signs Pulse Pulse Resp BP BP Pulse Ox O2 Del Method 06/23/24 14:17 94 H 20 122/76 94 Room Air 06/23/24 13:56 92 H 15 131/84 94 Room Air 06/23/24 10:39 120 H 24 132/70 96 Room Air 06/23/24 07:07 89 06/23/24 07:05 88 24 124/76 95 Room Air PG Care Time/CCT Total # of Minutes Spent Total Time Spent with Patient: Total time spent is greater than 50% in coordination of care (as documented) at patient's floor/unit and/or counseling patient: Coding Level of Care Code 35635 SUB INP/OBS CARE 2/35MIN Diagnoses Ambulatory dysfunction R26.2 Generalized weakness R53.1
[2024-06-23] MEDS: DEXTROAMPHETAMINE/AMPHETAMINE IR 10 MG TAB PO SCH (14:54)
[2024-06-23] MEDS: DIGOXIN 0.125 MG TAB PO SCH (16:00)
[2024-06-23] MEDS: ASPIRIN 81 MG ECTAB PO SCH (20:17)
[2024-06-23] MEDS: ATORVASTATIN 40 MG TAB PO SCH (20:17)
[2024-06-23] MEDS: MONTELUKAST SODIUM 10 MG TABLET PO SCH (20:18)
[2024-06-23] MEDS: PRAMIPEXOLE DIHYDROCHLO 0.5 MG TAB PO SCH (20:19)
[2024-06-23] MEDS: lamoTRIgine 100 MG TAB PO SCH (20:19)
[2024-06-23] MEDS: TRAVOPROST Z 0.004% OPH SOLN 2.5 ML BTL OPB SCH (20:19)
[2024-06-23] MEDS: traZODone HCL 50 MG TAB PO SCH (20:20)
[2024-06-24 08:43] LABS: Hematocrit (blood only) 41.7 % (37.0-47.0); Hemoglobin 13.4 g/dl (12.0-16.0); Mean Corpuscular Hemoglobin 28.2 pg (25.0-34.0); Mean Corpuscular Hgb Conc 32.1 g/dL (32.0-36.0); Mean Corpuscular Volume 87.6 fL (80.0-100.0); Mean Platelet Volume 9.2 fL (9.4-12.4); Platelet Count 267 K/uL (130-400); RDW Coefficient of Variation 16.7 % (11.5-14.5); RDW Standard Deviation 53.8 fL (36.4-46.3); Red Blood Count 4.76 M/uL (4.20-5.40); White Blood Count 11.51 K/ul (4.8-10.8)
[2024-06-24 09:01] LABS: BUN Creatinine Ratio 39.2 (10-20); Calcium 10.3 mg/dl (8.6-10.3); Creatinine Clr Calc Pharmacy 80.2 ml/min; Potassium 3.9 mmol/L (3.5-5.1)
--- NOTE | 2024-06-24 14:24 | Hospitalist Progress Note ---
Date of Service June 24, 2024 Assessment & Plan (1) Ambulatory dysfunction: (2) Generalized weakness: Plan 83-year-old female PMHx A-fib (on Eliquis), CAD, asthma, CKD, HLD, glaucoma, and depression presenting for weakness and fall onto her bottom. Patient was recently admitted to [facility] 06/14/2024 to 06/18/2024 for adrenal insufficiency, orthostatic hypotension, ambulatory dysfunction, and recurrent falls. #Ambulatory dysfunction/weakness Weakness ongoing, previously required admission last month, appears to be complicated by adrenal insufficiency and orthostatic hypotension. History of recurrent falls with some dizziness, but no associated symptoms of syncope or chest pain with these episodes. Prior hospitalization had recommendations of PT/OT both advising rehab, patient had declined at that time. Presenting as she is ready to have a rehab facility given her ongoing weakness and falls. -CBC w/ improvement of leukocytosis to 11.51, BMP stable electrolytes and kidney function -CXR w/ mild vascular congestion -UA negative -Troponin WNL, EKG w/o ischemic changes, rate controlled A fib -orthostatic vitals completed 06/23 - negative -PT/OT - recommending rehab, patient agreeable. -Fall precautions #A-fib Previous history of A-fib, on Eliquis. On digoxin and diltiazem daily. Unsuspecting to be the cause of weakness. -EKG on admission showed A fib rate controlled. Telemetry w/ A fib rate controlled in 80s-90s -Patient downgraded to med/surg floor 06/24 #Adrenal insufficiency Diagnosed and evaluated at most recent hospitalization, started on steroids - Continue steroids, tapering as prescribed - on hydrocortisone 10mg BID currently. - To follow with endocrinology Chronic conditions: Fx R acromion of scapula- On CT prior admission, still healing but pain controlled; will follow with ortho outpatient, sling x6 weeks total Anxiety/depression- Escitalopram at decreased dose per last admission, BuSpar Nocturnal hypoxia- O2 3L via [place] HS ADHD- Continue medications Dispo: Admit, med telemetry VTE prophylaxis: SCDs patient medically stable for discharge pending rehab placement. Admission and Anticipated Discharge Date Admission Date: June 22, 2024 Subjective Patient seen and examined this morning. Patient denies any complaints today. She states she feels less weak today compared to prior to coming to the ED. She denied CP or SOB. Physical Exam Constitutional: WD/WN, vitals as above Eyes: PERRL, conjunctivae normal, anicteric sclerae Respiratory: breathing unlabored Cardiovascular: well perfused Psychiatric: A+Ox3, euthymic affect Results & Data Results & Data Vital Signs (Past 12 Hours) Vital Signs Temp Pulse Pulse Pulse Resp BP Pulse Ox 06/24/24 11:45 36.7 C 86 16 125/75 97 06/24/24 08:12 36.7 C 49 L 16 139/83 96 06/24/24 05:35 65 06/24/24 04:30 36.7 C 72 18 129/73 97 O2 Del Method O2 Flow Rate 06/24/24 11:45 Room Air 06/24/24 08:12 Room Air 06/24/24 05:35 06/24/24 04:30 Nasal Cannula 2 PG Care Time/CCT Total # of Minutes Spent Total Time Spent with Patient: Total time spent is greater than 50% in coordination of care (as documented) at patient's floor/unit and/or counseling patient: Coding Level of Care Code 80794 SUB INP/OBS CARE 2/35MIN Diagnoses Ambulatory dysfunction R26.2 Generalized weakness R53.1
[2024-06-25] MEDS: ACETAMINOPHEN 325 MG TAB PO PRN (11:04)
--- NOTE | 2024-06-25 14:44 | Hospitalist Progress Note ---
Date of Service June 25, 2024 Assessment & Plan (1) Ambulatory dysfunction: (2) Generalized weakness: Plan 83-year-old female PMHx A-fib (on Eliquis), CAD, asthma, CKD, HLD, glaucoma, and depression presenting for weakness and fall onto her bottom. Patient was recently admitted to [facility] 06/14/2024 to 06/18/2024 for adrenal insufficiency, orthostatic hypotension, ambulatory dysfunction, and recurrent falls. #Ambulatory dysfunction/weakness Weakness ongoing, previously required admission last month, appears to be complicated by adrenal insufficiency and orthostatic hypotension. History of recurrent falls with some dizziness, but no associated symptoms of syncope or chest pain with these episodes. Prior hospitalization had recommendations of PT/OT both advising rehab, patient had declined at that time. Presenting as she is ready to have a rehab facility given her ongoing weakness and falls. -CBC w/ improvement of leukocytosis to 11.51, BMP stable electrolytes and kidney function -CXR w/ mild vascular congestion -UA negative -Troponin WNL, EKG w/o ischemic changes, rate controlled A fib -orthostatic vitals completed 06/23 - negative -PT/OT - recommending rehab, patient agreeable. -Fall precautions #A-fib Previous history of A-fib, on Eliquis. On digoxin and diltiazem daily. Unsuspecting to be the cause of weakness. -EKG on admission showed A fib rate controlled. Telemetry w/ A fib rate controlled in 80s-90s -Patient downgraded to med/surg floor 06/24 #Adrenal insufficiency Diagnosed and evaluated at most recent hospitalization, started on steroids - Continue steroids, tapering as prescribed - on hydrocortisone 10mg BID currently. - To follow with endocrinology Chronic conditions: Fx R acromion of scapula- On CT prior admission, still healing but pain controlled; will follow with ortho outpatient, sling x6 weeks total Anxiety/depression- Escitalopram at decreased dose per last admission, BuSpar Nocturnal hypoxia- O2 3L via [place] HS ADHD- Continue medications Dispo: Admit, med telemetry VTE prophylaxis: SCDs patient medically stable for discharge pending rehab placement. Admission and Anticipated Discharge Date Admission Date: June 22, 2024 Subjective Patient seen and examined this morning. Patient reports she had an episode of leg weakness yesterday evening. She reports she was coming back from the bathroom where her legs gave out. she did not fall, the nurse had the wheelchair brought in. She was able to transfer into bed with no issues. She denied any further episodes of weakness today. Denied dizziness at time of event. Physical Exam Constitutional: WD/WN, vitals as above Eyes: PERRL, conjunctivae normal, anicteric sclerae Respiratory: breathing unlabored Cardiovascular: well perfused Psychiatric: A+Ox3, euthymic affect Results & Data Results & Data Vital Signs (Past 12 Hours) Vital Signs Temp Pulse Resp BP Pulse Ox O2 Del Method 06/25/24 14:23 36.8 C 82 16 132/79 95 Room Air 06/25/24 07:17 36.7 C 78 15 129/68 96 Room Air PG Care Time/CCT Total # of Minutes Spent Total Time Spent with Patient: Total time spent is greater than 50% in coordination of care (as documented) at patient's floor/unit and/or counseling patient: Coding Level of Care Code 07667 SUB INP/OBS CARE 06/12MIN Diagnoses Ambulatory dysfunction R26.2 Generalized weakness R53.1
[2024-06-26] MEDS: DEXTROAMPHETAMINE/AMPHETAMINE IR 10 MG TAB PO SCH (06:25)
--- NOTE | 2024-06-26 23:31 | Hospitalist Progress Note ---
Date of Service June 26, 2024 Assessment & Plan (1) Ambulatory dysfunction: (2) Generalized weakness: Plan 83-year-old female PMHx A-fib (on Eliquis), CAD, asthma, CKD, HLD, glaucoma, and depression presenting for weakness and fall onto her bottom. Patient was recently admitted to [facility] 06/14/2024 to 06/18/2024 for adrenal insufficiency, orthostatic hypotension, ambulatory dysfunction, and recurrent falls. #Ambulatory dysfunction/weakness Weakness ongoing, previously required admission last month, appears to be complicated by adrenal insufficiency and orthostatic hypotension. History of recurrent falls with some dizziness, but no associated symptoms of syncope or chest pain with these episodes. Prior hospitalization had recommendations of PT/OT both advising rehab, patient had declined at that time. Presenting as she is ready to have a rehab facility given her ongoing weakness and falls. -CBC w/ improvement of leukocytosis to 11.51, BMP stable electrolytes and kidney function -CXR w/ mild vascular congestion -UA negative -Troponin WNL, EKG w/o ischemic changes, rate controlled A fib -orthostatic vitals completed 06/23 - negative -PT/OT - recommending rehab, patient agreeable. -Fall precautions -vitals and labs remain stable on 06/26 ordered orthotics consult #A-fib Previous history of A-fib, on Eliquis. On digoxin and diltiazem daily. Unsuspecting to be the cause of weakness. -EKG on admission showed A fib rate controlled. Telemetry w/ A fib rate controlled in 80s-90s -Patient downgraded to med/surg floor 06/24 #Adrenal insufficiency Diagnosed and evaluated at most recent hospitalization, started on steroids - Continue steroids, tapering as prescribed - on hydrocortisone 10mg BID currently. - To follow with endocrinology Chronic conditions: Fx R acromion of scapula- On CT prior admission, still healing but pain controlled; will follow with ortho outpatient, sling x6 weeks total Anxiety/depression- Escitalopram at decreased dose per last admission, BuSpar Nocturnal hypoxia- O2 3L via [place] HS ADHD- Continue medications Dispo: Admit, med telemetry VTE prophylaxis: SCDs patient medically stable for discharge pending rehab placement. Admission and Anticipated Discharge Date Admission Date: June 22, 2024 Subjective Patient reports no new symptoms. Physical Exam Constitutional: WD/WN, vitals as above Eyes: PERRL, conjunctivae normal, anicteric sclerae Respiratory: breathing unlabored Cardiovascular: well perfused Psychiatric: A+Ox3, euthymic affect Results & Data Results & Data Vital Signs (Past 12 Hours) Vital Signs Temp Pulse Pulse Resp BP Pulse Ox O2 Del Method 06/26/24 19:10 36.8 C 122 H 17 132/75 94 Room Air 06/26/24 15:27 98 H 06/26/24 15:01 37 C 98 H 18 106/68 94 Room Air PG Care Time/CCT Total # of Minutes Spent Total Time Spent with Patient: Total time spent is greater than 50% in coordination of care (as documented) at patient's floor/unit and/or counseling patient: Coding Level of Care Code 09982 SUB INP/OBS CARE 2/35MIN Diagnoses Ambulatory dysfunction R26.2 Generalized weakness R53.1
[2024-06-27 07:24] LABS: Hematocrit (blood only) 36.9 % (37.0-47.0); Hemoglobin 11.8 g/dl (12.0-16.0); Mean Corpuscular Volume 87.4 fL (80.0-100.0); Mean Platelet Volume 9.6 fL (9.4-12.4); Platelet Count 224 K/uL (130-400); RDW Coefficient of Variation 16.6 % (11.5-14.5); RDW Standard Deviation 53.1 fL (36.4-46.3); Red Blood Count 4.22 M/uL (4.20-5.40); White Blood Count 11.05 K/ul (4.8-10.8)
[2024-06-27 07:41] LABS: BUN Creatinine Ratio 40.4 (10-20); Calcium 9.9 mg/dl (8.6-10.3); Potassium 3.9 mmol/L (3.5-5.1)
--- NOTE | 2024-06-27 23:29 | Hospitalist Progress Note ---
Date of Service June 27, 2024 Assessment & Plan (1) Ambulatory dysfunction: (2) Generalized weakness: Plan 83-year-old female PMHx A-fib (on Eliquis), CAD, asthma, CKD, HLD, glaucoma, and depression presenting for weakness and fall onto her bottom. Patient was recently admitted to [facility] 06/14/2024 to 06/18/2024 for adrenal insufficiency, orthostatic hypotension, ambulatory dysfunction, and recurrent falls. #Ambulatory dysfunction/weakness Weakness ongoing, previously required admission last month, appears to be complicated by adrenal insufficiency and orthostatic hypotension. History of recurrent falls with some dizziness, but no associated symptoms of syncope or chest pain with these episodes. Prior hospitalization had recommendations of PT/OT both advising rehab, patient had declined at that time. Presenting as she is ready to have a rehab facility given her ongoing weakness and falls. -CBC w/ improvement of leukocytosis to 11.51, BMP stable electrolytes and kidney function -CXR w/ mild vascular congestion -UA negative -Troponin WNL, EKG w/o ischemic changes, rate controlled A fib -orthostatic vitals completed 06/23 - negative -PT/OT - recommending rehab, patient agreeable. -Fall precautions -vitals and labs remain stable on 06/27 ordered orthotics consult #A-fib Previous history of A-fib, on Eliquis. On digoxin and diltiazem daily. Unsuspecting to be the cause of weakness. -EKG on admission showed A fib rate controlled. Telemetry w/ A fib rate controlled in 80s-90s -Patient downgraded to med/surg floor 06/24 #Adrenal insufficiency Diagnosed and evaluated at most recent hospitalization, started on steroids - Continue steroids, tapering as prescribed - on hydrocortisone 10mg BID currently. - To follow with endocrinology Chronic conditions: Fx R acromion of scapula- On CT prior admission, still healing but pain controlled; will follow with ortho outpatient, sling x6 weeks total Anxiety/depression- Escitalopram at decreased dose per last admission, BuSpar Nocturnal hypoxia- O2 3L via [place] HS ADHD- Continue medications Dispo: Admit, med telemetry VTE prophylaxis: SCDs patient medically stable for discharge pending rehab placement. discuss with case finishing machine adjuster Admission and Anticipated Discharge Date Admission Date: June 22, 2024 Subjective Patient reports no new symptoms. Physical Exam Constitutional: WD/WN, vitals as above Eyes: PERRL, conjunctivae normal, anicteric sclerae Psychiatric: A+Ox3, euthymic affect Results & Data Results & Data Vital Signs (Past 12 Hours) Vital Signs Temp Pulse Pulse Resp BP Pulse Ox O2 Del Method 06/27/24 21:15 Room Air 06/27/24 19:45 36.4 C L 50 L 15 132/78 92 Room Air 06/27/24 15:11 88 06/27/24 14:58 36.6 C 88 18 112/72 92 Room Air PG Care Time/CCT Total # of Minutes Spent Total Time Spent with Patient: Total time spent is greater than 50% in coordination of care (as documented) at patient's floor/unit and/or counseling patient: Coding Level of Care Code 88114 SUB INP/OBS CARE 2/35MIN Diagnoses Ambulatory dysfunction R26.2 Generalized weakness R53.1
--- NOTE | 2024-06-28 08:11 | Hospitalist Progress Note ---
Date of Service June 28, 2024 Assessment & Plan (1) Ambulatory dysfunction: (2) Generalized weakness: Plan 83-year-old female PMHx A-fib (on Eliquis), CAD, asthma, CKD, HLD, glaucoma, and depression presenting for weakness and fall onto her bottom. Patient was recently admitted to [facility] 06/14/2024 to 06/18/2024 for adrenal insufficiency, orthostatic hypotension, ambulatory dysfunction, and recurrent falls. #Ambulatory dysfunction/weakness Weakness ongoing, previously required admission last month, appears to be complicated by adrenal insufficiency and orthostatic hypotension. History of recurrent falls with some dizziness, but no associated symptoms of syncope or chest pain with these episodes. Prior hospitalization had recommendations of PT/OT both advising rehab, patient had declined at that time. Presenting as she is ready to have a rehab facility given her ongoing weakness and falls. -CBC w/ improvement of leukocytosis to 11.51, BMP stable electrolytes and kidney function -CXR w/ mild vascular congestion -UA negative -Troponin WNL, EKG w/o ischemic changes, rate controlled A fib -orthostatic vitals completed 06/23 - negative -PT/OT - recommending rehab, patient agreeable. -Fall precautions -vitals and labs remain stable on 06/27 ordered orthotics consult #A-fib Previous history of A-fib, on Eliquis. On digoxin and diltiazem daily. Unsuspecting to be the cause of weakness/fall. -EKG on admission showed A fib rate controlled. Telemetry w/ A fib rate controlled in 80s-90s -Patient downgraded to med/surg floor 06/24 #Adrenal insufficiency Diagnosed and evaluated at most recent hospitalization, started on steroids - Continue steroids, tapering as prescribed - on hydrocortisone 10mg BID currently. - To follow with endocrinology Chronic conditions: Fx R acromion of scapula- On CT prior admission, still healing but pain controlled; will follow with ortho outpatient, sling x6 weeks total Anxiety/depression- Escitalopram at decreased dose per last admission, BuSpar Nocturnal hypoxia- O2 3L via [place] HS ADHD- Continue medications Dispo: Admit, med telemetry VTE prophylaxis: SCDs patient medically stable for discharge pending rehab placement. discuss with outsole caser Admission and Anticipated Discharge Date Admission Date: June 22, 2024 Subjective pt states she feels hot, has wet wash towel on forehead has good pain control of acromion fracture right arm with sling and pain Meds supportive of placement Physical Exam Physical Exam: pt has sling in place tender right arm lungs are clear Results & Data Results & Data Vital Signs (Past 12 Hours) Vital Signs Temp Pulse Resp BP Pulse Ox O2 Del Method 06/28/24 07:56 97.5 F L 82 18 119/65 93 Room Air 06/27/24 21:15 Room Air PG Care Time/CCT Total # of Minutes Spent Total Time Spent with Patient: Total time spent is greater than 50% in coordination of care (as documented) at patient's floor/unit and/or counseling patient: Coding Level of Care Code 68918 SUB INP/OBS CARE 2/35MIN Diagnoses Ambulatory dysfunction R26.2 Generalized weakness R53.1
[2024-06-28] MEDS: NYSTATIN SUSP 500,000 U/5 ML UDC PO STA (18:54)
[2024-06-29] MEDS: NYSTATIN SUSP 500,000 U/5 ML UDC PO SCH (10:12)
--- NOTE | 2024-06-29 11:11 | Hospitalist Progress Note ---
Date of Service June 29, 2024 Assessment & Plan (1) Ambulatory dysfunction: (2) Generalized weakness: Plan 83-year-old female PMHx A-fib (on Eliquis), CAD, asthma, CKD, HLD, glaucoma, and depression presenting for weakness and fall onto her bottom. Patient was recently admitted to [facility] 06/14/2024 to 06/18/2024 for adrenal insufficiency, orthostatic hypotension, ambulatory dysfunction, and recurrent falls. #Ambulatory dysfunction/weakness Weakness ongoing, previously required admission last month, appears to be complicated by adrenal insufficiency and orthostatic hypotension. History of recurrent falls with some dizziness, but no associated symptoms of syncope or chest pain with these episodes. Prior hospitalization had recommendations of PT/OT both advising rehab, patient had declined at that time. Presenting as she is ready to have a rehab facility given her ongoing weakness and falls. -Did not feel there was metabolic encephalopathy on presentation which would be responsible for her decline. -Troponin WNL, EKG w/o ischemic changes, rate controlled A fib -orthostatic vitals completed 06/23 - negative -PT/OT - recommending rehab, patient agreeable. -Fall precautions #A-fib Previous history of A-fib, on Eliquis. On digoxin and diltiazem daily. Unsuspecting to be the cause of weakness/fall. -EKG on admission showed A fib rate controlled. Telemetry w/ A fib rate controlled in 80s-90s -Patient downgraded to med/surg floor 06/24 #Adrenal insufficiency Diagnosed and evaluated at most recent hospitalization, started on steroids - Continue steroids, tapering as prescribed - on hydrocortisone 10mg BID currently. - To follow with endocrinology Chronic conditions: Fx R acromion of scapula- On CT prior admission, still healing but pain controlled; will follow with ortho outpatient, sling x6 weeks total Anxiety/depression- Escitalopram at decreased dose per last admission, BuSpar Nocturnal hypoxia- O2 3L via [place] HS ADHD- Continue medications VTE prophylaxis: SCDs patient medically stable for discharge pending rehab placement. discuss with medical case manager Admission and Anticipated Discharge Date Admission Date: June 22, 2024 Subjective Patient has no new complaints today reviewed really wishes to get to acute rehab although this was denied by her peer to peer review we will look for [facility] has good pain control of acromion fracture right arm with sling and pain Meds supportive of placement Physical Exam Physical Exam: pt has sling in place tender right arm lungs are clear Results & Data Results & Data Vital Signs (Past 12 Hours) Vital Signs Temp Pulse Resp BP Pulse Ox O2 Del Method O2 Flow Rate 06/29/24 07:16 97.9 F 73 18 120/75 98 Nasal Cannula 3 PG Care Time/CCT Total # of Minutes Spent Total Time Spent with Patient: Total time spent is greater than 50% in coordination of care (as documented) at patient's floor/unit and/or counseling patient: Coding Level of Care Code 67999 SUB INP/OBS CARE 2/35MIN Diagnoses Ambulatory dysfunction R26.2 Generalized weakness R53.1
[2024-06-29] MEDS ORDERED: ACYCLOVIR 5% OINT 15 GM TUBE EXT SCH (12:00)
[2024-06-29] MEDS: DICLOFENAC SOD 1% GEL 100 GM TUBE EXT SCH (20:56)
--- NOTE | 2024-06-30 15:48 | Hospitalist Progress Note ---
Date of Service June 30, 2024 Assessment & Plan (1) Ambulatory dysfunction: (2) Generalized weakness: Plan 83-year-old female PMHx A-fib (on Eliquis), CAD, asthma, CKD, HLD, glaucoma, and depression presenting for weakness and fall onto her bottom. Patient was recently admitted to [facility] 06/14/2024 to 06/18/2024 for adrenal insufficiency, orthostatic hypotension, ambulatory dysfunction, and recurrent falls. #Ambulatory dysfunction/weakness Weakness ongoing, previously required admission last month, appears to be complicated by adrenal insufficiency and orthostatic hypotension. History of recurrent falls with some dizziness, but no associated symptoms of syncope or chest pain with these episodes. Prior hospitalization had recommendations of PT/OT both advising rehab, patient had declined at that time. Presenting as she is ready to have a rehab facility given her ongoing weakness and falls. -Did not feel there was metabolic encephalopathy on presentation which would be responsible for her decline. -Troponin WNL, EKG w/o ischemic changes, rate controlled A fib -orthostatic vitals completed 06/23 - negative -PT/OT - recommending rehab, patient agreeable. -Fall precautions #A-fib Previous history of A-fib, on Eliquis. On digoxin and diltiazem daily. Unsuspecting to be the cause of weakness/fall. -EKG on admission showed A fib rate controlled. Telemetry w/ A fib rate controlled in 80s-90s -Patient downgraded to med/surg floor 06/24 #Adrenal insufficiency Diagnosed and evaluated at most recent hospitalization, started on steroids - Continue steroids, tapering as prescribed - on hydrocortisone 10mg BID currently. - To follow with endocrinology Chronic conditions: Fx R acromion of scapula- On CT prior admission, still healing but pain controlled; will follow with ortho outpatient, sling x6 weeks total Anxiety/depression- Escitalopram at decreased dose per last admission, BuSpar Nocturnal hypoxia- O2 3L via [place] HS ADHD- Continue medications VTE prophylaxis: SCDs patient medically stable for discharge pending rehab placement. discuss with trimming caser Admission and Anticipated Discharge Date Admission Date: June 22, 2024 Subjective Patient has no new complaints today reviewed discussed that acute rehab was denied by her peer to peer review we will look for subacute rehab at a detention facility has good pain control of acromion fracture right arm with sling and pain Meds supportive of placement Physical Exam Physical Exam: pt has sling in place tender right arm to movement only lungs are clear Results & Data Results & Data Vital Signs (Past 12 Hours) Vital Signs Temp Pulse Pulse Resp BP Pulse Ox O2 Del Method 06/30/24 14:46 98.1 F 85 28 H 138/70 96 Room Air 06/30/24 07:39 Room Air 06/30/24 07:30 97.5 F L 84 76 24 131/72 94 Room Air 06/30/24 07:30 98.1 F 71 18 112/57 L 94 Room Air PG Care Time/CCT Total # of Minutes Spent Total Time Spent with Patient: Total time spent is greater than 50% in coordination of care (as documented) at patient's floor/unit and/or counseling patient: Coding Level of Care Code 02740 SUB INP/OBS CARE 2/35MIN Diagnoses Ambulatory dysfunction R26.2 Generalized weakness R53.1
--- NOTE | 2024-07-01 10:44 | Hospitalist Progress Note ---
Date of Service July 01, 2024 Assessment & Plan (1) Ambulatory dysfunction: (2) Generalized weakness: Plan 83-year-old female PMHx A-fib (on Eliquis), CAD, asthma, CKD, HLD, glaucoma, and depression presenting for weakness and fall onto her bottom. Patient was recently admitted to [facility] 06/14/2024 to 06/18/2024 for adrenal insufficiency, orthostatic hypotension, ambulatory dysfunction, and recurrent falls. #Ambulatory dysfunction/weakness Weakness ongoing, previously required admission last month, appears to be complicated by adrenal insufficiency and orthostatic hypotension. History of recurrent falls with some dizziness, but no associated symptoms of syncope or chest pain with these episodes. Prior hospitalization had recommendations of PT/OT both advising rehab, patient had declined at that time. Presenting as she is ready to have a rehab facility given her ongoing weakness and falls. -Did not feel there was metabolic encephalopathy on presentation which would be responsible for her decline. -Troponin WNL, EKG w/o ischemic changes, rate controlled A fib -orthostatic vitals completed 06/23 - negative -PT/OT - recommending rehab, patient agreeable. -Fall precautions #A-fib Previous history of A-fib, on Eliquis. On digoxin and diltiazem daily. Unsuspecting to be the cause of weakness/fall. -EKG on admission showed A fib rate controlled. Telemetry w/ A fib rate controlled in 80s-90s -Patient downgraded to med/surg floor 06/24 #Adrenal insufficiency Diagnosed and evaluated at most recent hospitalization, started on steroids - Continue steroids, tapering as prescribed - on hydrocortisone 10mg BID currently. - To follow with endocrinology Chronic conditions: Fx R acromion of scapula- On CT prior admission, still healing but pain controlled; will follow with ortho outpatient, sling x6 weeks total Anxiety/depression- Escitalopram at decreased dose per last admission, BuSpar Nocturnal hypoxia- O2 3L via [place] HS ADHD- Continue medications VTE prophylaxis: SCDs patient medically stable for discharge pending rehab placement. discuss with case maker Admission and Anticipated Discharge Date Admission Date: June 22, 2024 Subjective patient seen and examined, no new complaints Review of Systems Review of Systems: All systems reviewed are negative, apart from the ones contained in the history. Physical Exam Physical Exam: The patient is awake, alert and oriented 3, well developed and well nourished, normocephalic and atraumatic, lying in bed and in no acute distress. HEENT--PERRL, EOMI, mucous membranes and oropharynx mildly dry Neck--supple. No JVD. No bruits. Thyroid normal, trachea midline, no adenopathy. Heart--normal S1 and S2. No murmurs, rubs or gallops. Lungs--clear bilaterally, no respiratory distress, no accessory muscle use. Abdomen--normal bowel sounds and soft. Extremities--no cyanosis or clubbing. No edema. Dermatologic--normal skin turgor, normal color, no abnormal lymph nodes, no rash. Neurologic--cranial nerves II through XII grossly intact. Rheumatologic--normal range of motion. Psychiatric--normal affect. Results & Data Results & Data Vital Signs (Past 12 Hours) Vital Signs Temp Pulse Resp BP Pulse Ox O2 Del Method 07/01/24 07:17 97.5 F L 92 H 16 123/88 89 L Room Air PG Care Time/CCT Total # of Minutes Spent Total Time Spent with Patient: Total time spent is greater than 50% in coordination of care (as documented) at patient's floor/unit and/or counseling patient: Coding Level of Care Code 58226 SUB INP/OBS CARE 2/35MIN Diagnoses Ambulatory dysfunction R26.2 Generalized weakness R53.1 Time Spent (min) 35
[2024-07-01] MEDS: HYDROCORTISONE 10 MG TAB PO SCH (11:52)
[2024-07-02 07:53] VITALS: O2SAT 95
[2024-07-02 09:11] LABS: Hematocrit (blood only) 40.3 % (37.0-47.0); Hemoglobin 12.9 g/dl (12.0-16.0); Mean Corpuscular Hemoglobin 28.2 pg (25.0-34.0); Mean Corpuscular Volume 88.2 fL (80.0-100.0); Mean Platelet Volume 10.1 fL (9.4-12.4); Platelet Count 260 K/uL (130-400); RDW Standard Deviation 51.9 fL (36.4-46.3); Red Blood Count 4.57 M/uL (4.20-5.40); White Blood Count 9.03 K/ul (4.8-10.8)
[2024-07-02 09:32] LABS: BUN Creatinine Ratio 36.5 (10-20); Calcium 10.3 mg/dl (8.6-10.3); Creatinine Clr Calc Pharmacy 78.6 ml/min; Potassium 3.8 mmol/L (3.5-5.1)
--- NOTE | 2024-07-02 10:52 | Hospitalist Progress Note ---
Date of Service July 02, 2024 Assessment & Plan (1) Ambulatory dysfunction: (2) Generalized weakness: Plan 83-year-old female PMHx A-fib (on Eliquis), CAD, asthma, CKD, HLD, glaucoma, and depression presenting for weakness and fall onto her bottom. Patient was recently admitted to [facility] 06/14/2024 to 06/18/2024 for adrenal insufficiency, orthostatic hypotension, ambulatory dysfunction, and recurrent falls. #Ambulatory dysfunction/weakness Weakness ongoing, previously required admission last month, appears to be complicated by adrenal insufficiency and orthostatic hypotension. History of recurrent falls with some dizziness, but no associated symptoms of syncope or chest pain with these episodes. Prior hospitalization had recommendations of PT/OT both advising rehab, patient had declined at that time. Presenting as she is ready to have a rehab facility given her ongoing weakness and falls. -Did not feel there was metabolic encephalopathy on presentation which would be responsible for her decline. -Troponin WNL, EKG w/o ischemic changes, rate controlled A fib -orthostatic vitals negative -PT/OT - recommending rehab, patient agreeable. -Fall precautions #A-fib Previous history of A-fib, on Eliquis. On digoxin and diltiazem daily. Unsuspecting to be the cause of weakness/fall. -EKG on admission showed A fib rate controlled. Telemetry w/ A fib rate controlled in 80s-90s #Adrenal insufficiency Diagnosed and evaluated at most recent hospitalization, started on steroids - Continue steroids, tapering as prescribed - on hydrocortisone 10mg BID currently. - To follow with endocrinology Chronic conditions: Fx R acromion of scapula- On CT prior admission, still healing but pain controlled; will follow with ortho outpatient, sling x6 weeks total Anxiety/depression- Escitalopram at decreased dose per last admission, BuSpar Nocturnal hypoxia- O2 3L via [place] HS ADHD- Continue medications VTE prophylaxis: SCDs patient medically stable for discharge pending rehab placement. Admission and Anticipated Discharge Date Admission Date: June 22, 2024 Subjective patient seen and examined, no new complaints Review of Systems Review of Systems: All systems reviewed are negative, apart from the ones contained in the history. Physical Exam Physical Exam: The patient is awake, alert and oriented 3, well developed and well nourished, normocephalic and atraumatic, lying in bed and in no acute distress. HEENT--PERRL, EOMI, mucous membranes and oropharynx mildly dry Neck--supple. No JVD. No bruits. Thyroid normal, trachea midline, no adenopathy. Heart--normal S1 and S2. No murmurs, rubs or gallops. Lungs--clear bilaterally, no respiratory distress, no accessory muscle use. Abdomen--normal bowel sounds and soft. Extremities--right upper extremity in sling. Dermatologic--normal skin turgor, normal color, no abnormal lymph nodes, no rash. Neurologic--cranial nerves II through XII grossly intact. Rheumatologic--normal range of motion. Psychiatric--normal affect. Results & Data Results & Data Vital Signs (Past 12 Hours) Vital Signs Temp Pulse Resp BP Pulse Ox O2 Del Method 07/02/24 07:52 97.7 F 83 20 130/75 95 Room Air PG Care Time/CCT Total # of Minutes Spent Total Time Spent with Patient: Total time spent is greater than 50% in coordination of care (as documented) at patient's floor/unit and/or counseling patient: Coding Level of Care Code 07258 SUB INP/OBS CARE 2/35MIN Diagnoses Ambulatory dysfunction R26.2 Generalized weakness R53.1 Time Spent (min) 35
--- NOTE | 2024-07-02 14:54 | Discharge Summary ---
Date of Service July 02, 2024 Admission HPI Per Admitting Provider 83-year-old female PMHx A-fib (on Eliquis), CAD, asthma, seek Kd, HLD, glaucoma, and depression presenting for weakness and fall onto her bottom. Patient was recently admitted to [facility] 06/14/2024 to 06/18/2024 for adrenal insufficiency, orthostatic hypotension, ambulatory dysfunction, and recurrent falls. Presenting today after ambulating at her house when she had an episode of weakness where her legs "gave out." Patient is on Eliquis for A-fib, but denies hitting her head or other body parts. States that she just fell on her bottom and was unable to get herself back up. Was moved to a chair and could not stand on her legs because they felt so weak. Did not have episodes of syncope, chest pain, or SOB prior to this event. ED workup reveals WBC 13.46, neutrophil predominant, CMP with BUN 39, BUN/creatinine ratio 62.9, TSH WNL, troponin WNL. CXR w/ mild vascular congestion. Admission Exam (Per Admitting) Constitutional The patient is awake, alert and oriented 3, well developed and well nourished, normocephalic and atraumatic, lying in bed and in no acute distress. HEENT--PERRL, EOMI, mucous membranes and oropharynx mildly dry Neck--supple. No JVD. No bruits. Thyroid normal, trachea midline, no adenopathy. Heart--normal S1 and S2. No murmurs, rubs or gallops. Lungs--clear bilaterally, no respiratory distress, no accessory muscle use. Abdomen--normal bowel sounds and soft. Extremities--right upper extremity in sling Dermatologic--normal skin turgor, normal color, no abnormal lymph nodes, no rash. Neurologic--cranial nerves II through XII grossly intact. Rheumatologic--normal range of motion. Psychiatric--normal affect. Discharge Data Consultations 06/22/24 18:41 ED Decision to Admit Stat Hospital Course (1) Ambulatory dysfunction: (2) Generalized weakness: Plan 83-year-old female PMHx A-fib (on Eliquis), CAD, asthma, CKD, HLD, glaucoma, and depression presenting for weakness and fall onto her bottom. Patient was recently admitted to [facility] 06/14/2024 to 06/18/2024 for adrenal insufficiency, orthostatic hypotension, ambulatory dysfunction, and recurrent falls. #Ambulatory dysfunction/weakness Weakness ongoing, previously required admission last month, appears to be complicated by adrenal insufficiency and orthostatic hypotension. History of recurrent falls with some dizziness, but no associated symptoms of syncope or chest pain with these episodes. Prior hospitalization had recommendations of PT/OT both advising rehab, patient had declined at that time. Presenting as she is ready to have a rehab facility given her ongoing weakness and falls. -Did not feel there was metabolic encephalopathy on presentation which would be responsible for her decline. -Troponin WNL, EKG w/o ischemic changes, rate controlled A fib -orthostatic vitals negative -PT/OT - recommending rehab, patient agreeable. -Fall precautions #A-fib Previous history of A-fib, on Eliquis. On digoxin and diltiazem daily. Unsuspecting to be the cause of weakness/fall. -EKG on admission showed A fib rate controlled. Telemetry w/ A fib rate controlled in 80s-90s #Adrenal insufficiency Diagnosed and evaluated at most recent hospitalization, started on steroids - Continue steroids, tapering as prescribed - on hydrocortisone 10mg BID cur rently. - To follow with endocrinology Chronic conditions: Fx R acromion of scapula- On CT prior admission, still healing but pain controlled; will follow with ortho outpatient, sling x6 weeks total Anxiety/depression- Escitalopram at decreased dose per last admission, BuSpar Nocturnal hypoxia- O2 3L via [place] HS ADHD- Continue medications VTE prophylaxis: SCDs patient medically stable for discharge home with Coding Level of Care Code 09402 INP/OBS DISCH >30 MIN Diagnoses Ambulatory dysfunction R26.2 Generalized weakness R53.1 Time Spent (min) 35
[2024-07-02 15:06] VITALS: BP 126/66; PULSE 90; RESP 16; TEMP 98.4
== END 2024-07-02 17:48 | disposition home health service (06) | DRG 948 ==
LOC: ED 16:23 → EDINP 19:35 → SUATTDRO 19:35 → 2W 06-23 14:17 → 3N 06-24 16:03

== ENCOUNTER 2024-09-23 14:51 | Inpatient (IN) ==
--- NOTE | 2024-09-23 16:06 | Emergency Department Note ---
Impression & Plan Chronic right hip pain, Ambulatory dysfunction, Pain in right lumbar region of back, Abnormal finding on CT scan, Urinary tract infection ED Provider Note NAME: MARJORIE KNOWLES AGE: 84 SEX: F : 1940 ARRIVES VIA: Ambulance INFORMANT: Patient ED PROVIDER(S): Brendon Joe MD CHIEF COMPLAINT: Right hip pain PLAN: Disposition: Admit MEDICAL DECISION MAKING: The patient is a pleasant 84-year-old woman with a past medical history of CAD, Dysphagia, hyperlipidemia, hypertension, atrial fibrillation on Eliquis, secondary adrenal insufficiency on hydrocortisone, ambulatory dysfunction who presents to the emergency department via EMS for evaluation of ongoing right hip pain and low back pain for the past month in the setting of having a fall where she was seen in the emergency department on 08/30 and had negative x-rays. Patient reports she had followed up with her doctor afterwards but reports is not aware of any diagnosis. She has not followed up since. She denies fevers, chills, cough, congestion, GI symptoms. Patient adds that she feels she has lost 20 pounds over the past month or so.She denies any burning with urination but understands she does not always know. The patient denies any urinary retention or loss of bowel control. On evaluation the patient no acute distress, afebrile blood pressure 140s/90s vital signs otherwise stable. She appears clinically dry. She has mild discomfort of the right lower lumbar region extending over the PSIS to the anterior thigh. She has full range of motion intact though causes discomfort. Distal PMS is intact. WBC 14.4 K with neutrophilia but no left shift. H/H normal limits. Platelets within normal limits. Chemistry without metabolic acidosis. LFTs unremarkable. UA suspicious for infection with positive nitrites and 4+ bacteria. IV ceftriaxone was administered. CT of the abdomen pelvis was performed and demonstrates an L2 intraspinal calcified lesion measuring 8.5 x 16 mm which is nonspecific. Additional note of right iliac fossa mesenteric lymphadenitis is described. Unchanged liver and splenic hypodensities are also noted likely hemangiomas. Additional unchanged renal cyst on the left adrenal gland lesion is noted. Upon reevaluation the patient denied any significant treatment following IV hydration, IV APAP, dexamethasone and lidocaine patch. She reported she did not feel comfortable being at home in her current state due to her pain and inability to ambulate. Thus, patient was referred to hospice service for further assessment. Case was discussed with JACQUELYN Brar hospitalist, who will evaluate the patient for admission. Further management per admitting team. Triage Nursing notes reviewed and agree them. Prior/external medical records reviewed Vital Signs: reviewed Differential diagnosis: Musculoskeletal, disc herniation, fracture, metastatic disease, cord compression, discitis, sciatica, cauda equina, infection, aortic disease, renal colic, gastrointestinal, as well as other pathologies. ER treatment provided: See below. Diagnostics interpreted by me: ECG: Atrial fibrillation, 75 bpm, no ectopy, nonspecific ST and T wave abnormality, no overt ST elevation or depression, QTc 372, QRS 92. Cardiac Monitoring: An order for continuous cardiac monitoring was placed and demonstrated atrial fibrillation, 75 bpm, no ectopy. Laboratory studies: See below Imaging studies: See below Consultation(s): JACQUELYN Brar hospitalist. HPI: Per MDM. ROS: See above HPI for pertinent positives & negatives. A total of 10 systems reviewed and were otherwise negative. VITALS:See Below PHYSICAL EXAMINATION: GENERAL: Awake, alert, in no distress HENT: Normocephalic, atraumatic. Oropharynx with dry mucous membranes and otherwise unremarkable. EYES: Normal conjunctiva. Sclera non-icteric. NECK: Supple. No nuchal rigidity. FROM. No JVD. RESPIRATORY: Clear to auscultation. CARDIAC: Regular rate, irregular rhythm. Extremities warm and well perfused. Pulses equal. ABDOMEN: Soft, non-distended. No tenderness to palpation. No rebound or guarding. No masses. MUSCULOSKELETAL: Chest examination reveals no tenderness. The back is symmetrical on inspection without obvious abnormality. Mild discomfort of the right lower lumbar region extending over the PSIS to the anterior thigh. She has full range of motion intact though causes discomfort. Distal PMS is intact. LOWER EXTREMITIES: Calves are equal size bilaterally and non-tender. No edema. No discoloration. NEURO: No focal sensory or motor deficits noted. SKIN: No rash or jaundice noted. Brendon Joe MD Past Med/Surg History Problem List (Updated 09/24/24 @ 04:40 by Brendon Joe MD) Urinary tract infection (Acute) Abnormal finding on CT scan (Acute) Pain in right lumbar region of back (Acute) Ambulatory dysfunction (Acute) Chronic right hip pain (Acute) Acute low back pain with radicular symptoms, duration less than 6 weeks Greater trochanteric bursitis of right hip Rotator cuff arthropathy of left shoulder Secondary adrenal insufficiency Anticoagulant long-term use Scapular fracture (06/14/24) Acute fracture at the base of the acromion from a fall. Leg length discrepancy Adrenal insufficiency Hypercalcemia Orthostatic hypotension Nocturnal hypoxia o2 3L HS. Fracture of acromion of scapula (06/14/24) Acute fracture at the base of the acromion from a fall. Atrial fibrillation Ambulatory dysfunction Recurrent falls Contusion of knee, right (Acute) Generalized weakness (Acute) Obstructive lung disease Acromioclavicular joint arthritis Rotator cuff arthropathy of right shoulder Left ventricular systolic dysfunction Mitral regurgitation Aortic regurgitation Prediabetes Nonobstructive atherosclerosis of coronary artery Subacromial bursitis Glenohumeral arthritis SI (sacroiliac) joint dysfunction Osteoarthritis of ankle, left CAD (coronary artery disease) Mild- luminal irregularities only on 2003 cardiac cath Esophageal dysphagia Chronic constipation with overflow incontinence ADHD Stable Chronic obstructive pulmonary disease stable Allergic rhinitis (Chronic) Anxiety disorder (Chronic) follows with psych Benign familial tremor (Chronic) Cervicalgia (Chronic) Controlled substance agreement broken (Chronic) Former smoker (Chronic) Fusion of spine, lumbar region (Chronic) Glaucoma (Chronic) Hyperlipidemia (Chronic) Raynaud's disease (Chronic) Rectocele (Chronic) Restless legs syndrome (Chronic) SNHL (sensorineural hearing loss) (Chronic) Solitary pulmonary nodule (Chronic) Urge incontinence of urine (Chronic) Vitamin D deficiency (Chronic) Hypomagnesemia (Chronic) CKD (chronic kidney disease) stage 3, GFR 30-59 ml/min (Chronic) Depression (Chronic) Anemia (Chronic) Asthma (Chronic) Lumbar stenosis with neurogenic claudication (Chronic) Medical History Pre-diabetes CKD (chronic kidney disease) pt denies Mitral regurgitation Left ventricular systolic dysfunction EF 45-50% on 03/2023 echo; > 55% 12/2023 stress echo CAD (coronary artery disease) mild in 2003 per [place] [facility] records Aortic regurgitation mild to moderate on 03/2023 echo Esophageal dysphagia Asthma COPD (chronic obstructive pulmonary disease) Anxiety Raynauds disease Acid reflux controlled, stable per pt Tremor hands History of gastric ulcer History of sepsis (2022) History of skin cancer removed Difficult intravenous access Rectocele Arthritis of neck mild limitation rom. 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 Rheumatoid arthritis (02/25/13) per pt dx at age with RA. Surgical History Status post reverse total replacement of right shoulder (~03/2024) History of lumbar fusion x2 most recent 2018 History of foot surgery toes on left foot - pt confirms a total of 4 left foot surgeries. History of foot surgery left removal of bone spur S/P foot surgery, left LEFT FOOT LITTLE TOE AMPUTATED 2022. S/P foot surgery, left left ankle/foot reconstruction (2019) History of total hip arthroplasty right hip H/O toe surgery left foot History of total knee replacement bilateral; right TKA: 05/22/17: SAB x1 at L3-L4 + PNB at [facility] S/P hardware removal right ankle S/P laparotomy removed adhesions to relieve bowel strangulation S/P ankle arthrodesis right ankle History of open reduction and internal fixation (ORIF) procedure right ankle H/O elbow surgery bilateral S/P AMANDA (total abdominal hysterectomy) H/O thumb surgery right x2 History of appendectomy History of colonoscopy History of esophagogastroduodenoscopy (EGD) History of surgical removal of skin lesion History of tonsillectomy Family History Family/Other Coronary heart disease Heart disease Cancer Hypertension Brother Prostate cancer Benign familial tremor Father Benign familial tremor Mother Malignant melanoma Aunt Rheumatoid arthritis Other No family history of adverse response to anesthesia Denies family history of Ovarian cancer Myocardial infarction Breast cancer Colorectal cancer Social History Smoking Status: Former smoker Tobacco Type: Cigarettes Age Started Using Tobacco: 19 (intermittently quit throughout the years); Age Quit Using Tobacco: 81; packs per day: 0.1; Cigarettes Per Day: 2; Second Hand Exposure: No; Do You Dip or Chew Tobacco: No; Hx Alcohol Use: Yes Alcohol type: beer Alcohol Intake Frequency: Monthly or Less Alcohol Intake Frequency Comment: rarely Hx Substance Use: No Preferred Language: Ukrainian Communication Ability: Effective Visual Impairment: No Limitations Hearing Ability: Hard of Hearing Weight Shifter Required: No Beliefs That Will Affect Care: None marital status: Current Living Situation: Alone Current Living Situation Comment: apartment building 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al status: retired 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[employer], 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 How many Children do You have: 2 Feels Safe at Home: Yes Safety Concerns: Feels Safe At This Time Childhood Exposure to Second-Hand Smoke: No Diet: regular caffeine: Yes during the past year weight has: remained stable Dental Care, Regularly: No Physical Activity Frequency: Daily Seatbelt Use: always Sunscreen Use: Yes (sometimes ) Assistive Devices: Denture - Upper, Denture - Lower, Glasses, Hearing Aid - Bilateral, Oxygen - at Night and Walker Allergies Allergies Allergy/AdvReac Type Severity Reaction Status Date / Time azithromycin Allergy Unknown throat Verified 09/23/24 20:53 burned, lost weight chocolate flavor Allergy Unknown hx rash Verified 09/23/24 20:53 fluticasone Allergy Unknown chest pain Verified 09/23/24 20:54 (from Advair) Penicillins Allergy Unknown per Verified 09/23/24 20:51 allergy test procaine Allergy Unknown novacaine Verified 09/23/24 20:53 - anaphylaxis, mouth swelling, dyspnea salmeterol Allergy Unknown chest pain Verified 09/23/24 20:54 (from Advair) moxifloxacin AdvReac Unknown N/V Verified 09/23/24 20:54 NSAIDS (Non-Steroidal AdvReac Unknown advised to Verified 09/23/24 20:52 Anti-Inflamma avoid d/t ulcer hx zolpidem AdvReac Unknown sleep Verified 09/23/24 20:52 walking Home Meds Home Medications Medication Instructions Recorded Confirmed psyllium seed (sugar) oral powder 1 tbsp PO DAILY PRN Constipation 03/03/20 09/23/24 (Metamucil (sugar) oral powder) travoprost 0.004 % eye drops 1 drp OPB QPM 05/03/21 09/23/24 dextroamphetamine-amphetamine 10 10 mg PO .DAILY@2PM 03/07/22 09/23/24 mg tablet (Adderall) ascorbic acid (vitamin C) 500 mg 500 mg PO QAM 11/12/22 09/23/24 tablet (Vitamin C) biotin 10 mg tablet 10 mg PO QAM 11/12/22 09/23/24 guaifenesin 600 mg tablet, 600 mg PO Q6H PRN Congestion 11/12/22 09/23/24 extended release 12 hr (Mucinex) cyanocobalamin (vitamin B-12) 2,500 mcg PO QAM 05/06/23 09/23/24 2,500 mcg tablet buspirone 5 mg tablet 5 mg PO BID Anxiety 02/18/24 09/23/24 albuterol sulfate 2.5 mg/3 mL 3 mg inhalation TID asthma attacks 02/20/24 09/23/24 (0.083 %) solution for nebulization albuterol sulfate 90 mcg/actuation 2 puff inhalation Q6H PRN asthma 02/20/24 09/23/24 aerosol inhaler (Ventolin HFA) loratadine 10 mg tablet 10 mg PO QAM 02/20/24 09/23/24 pantoprazole 40 mg tablet,delayed 40 mg PO QAM 03/29/24 09/23/24 release (Protonix) brimonidine 0.2 %-timolol 0.5 % 1 drp OPB BID 06/14/24 09/23/24 eye drops (Combigan) calcium 600 mg (as 1 tab PO BID 09/23/24 09/23/24 carbonate)-vitamin D3 10 mcg (400 unit) tablet (Calcium 600 + D(3)) cholecalciferol (vitamin D3) 125 125 mcg PO QAM 09/23/24 09/23/24 mcg (5,000 unit) tablet (Vitamin D3) dextroamphetamine-amphetamine 10 20 mg PO .DAILY@6AM 09/23/24 09/23/24 mg tablet diltiazem HCl 180 mg capsule,24 360 mg PO QAM 09/23/24 09/23/24 hr,extended release lamotrigine 150 mg tablet 150 mg PO HS 09/23/24 09/23/24 trazodone 50 mg tablet 50 mg PO HS 09/23/24 09/23/24 vitamin E 800 unit capsule 800 unit PO QAM 09/23/24 09/23/24 zinc gluconate 50 mg tablet 50 mg PO QAM 09/23/24 09/23/24 Previous Rx's Medication Instructions Recorded aspirin 81 mg tablet,delayed 81 mg PO HS #30 tabs 08/18/20 release multivitamin 1 tab PO QAM #30 tabs 09/13/20 Scooter #1 ea 04/03/21 nebulizer accessories #2 ea 03/31/23 nebulizers #1 ea 03/31/23 apixaban 5 mg tablet (Eliquis) 5 mg PO BID #60 tabs 01/21/24 magnesium oxide 400 mg PO HS #90 tabs 05/17/24 pramipexole 0.5 mg tablet 0.5 mg PO HS #90 tabs 05/17/24 acetaminophen 500 mg tablet 1,000 mg (2 x 500 mg) PO Q8H PRN 06/18/24 (Tylenol Extra Strength) Pain #0 tabs escitalopram oxalate 20 mg tablet 20 mg PO QAM #0 tabs 06/18/24 (Lexapro) trazodone 150 mg tablet 150 mg PO HS #45 tabs 06/18/24 atorvastatin 40 mg tablet (Lipitor) 40 mg PO HS #90 tabs 07/04/24 digoxin 125 mcg (0.125 mg) tablet 125 mcg PO QAM #90 tabs 07/04/24 montelukast 10 mg tablet 10 mg PO HS #90 tabs 07/04/24 (Singulair) oxybutynin chloride 5 mg 5 mg PO QAM #90 tabs 07/04/24 tablet,extended release 24 hr Wheeled Walker #1 ea 07/08/24 Oxygen Home #1 ea 07/27/24 diaper,brief,adult,disposable #6 ea 08/06/24 (Select Disposable Briefs) hydrocortisone 5 mg tablet See Rx Instructions .Route 08/27/24 .COMPLEX #270 tabs gabapentin 100 mg capsule 200 mg (2 x 100 mg) PO BID #120 09/22/24 caps Results & Data (ED) Vital Signs Vital Signs - 24 hr 09/23/24 14:56 09/23/24 15:03 09/23/24 17:06 Temperature 36.6 C Temperature Source Oral Pulse Rate 78 88 Pulse Rate [Apical] 81 Pulse Rhythm [Apical] Pulse Strength Normal Pulse Strength [Apical] Normal Respiratory Rate 17 19 16 Respiratory Effort / Characteristics Non-Labored Spontaneous Non-Labored Spontaneous Respiratory Depth Normal Normal Respiratory Pattern Regular Regular Blood Pressure 148/94 H Blood Pressure [Right Arm] Blood Pressure Mean 112 Blood Pressure Mean [Right Arm] Blood Pressure Position Lying Pulse Oximetry 95 95 Oxygen Delivery Method Room Air Room Air Sepsis Recent Fever Within 48 Hours No Sepsis New/Unexplained Change in Mental Status No Sepsis Action Taken by Nursing No Action Required 09/23/24 17:06 09/23/24 18:53 09/23/24 19:09 Temperature Temperature Source Pulse Rate 85 Pulse Rate [Apical] 85 82 Pulse Rhythm [Apical] Regular Pulse Strength Pulse Strength [Apical] Normal Respiratory Rate 20 20 23 Respiratory Effort / Characteristics Non-Labored Spontaneous Non-Labored Spontaneous Respiratory Depth Normal Normal Respiratory Pattern Regular Blood Pressure 164/102 H Blood Pressure [Right Arm] 153/102 H 181/82 H Blood Pressure Mean 122 Blood Pressure Mean [Right Arm] 119 115 Blood Pressure Position Pulse Oximetry 96 96 96 Oxygen Delivery Method Room Air Room Air Sepsis Recent Fever Within 48 Hours Sepsis New/Unexplained Change in Mental Status Sepsis Action Taken by Nursing 09/23/24 19:42 09/23/24 20:06 09/23/24 20:33 Temperature Temperature Source Pulse Rate 90 90 93 H Pulse Rate [Apical] Pulse Rhythm [Apical] Pulse Strength Pulse Strength [Apical] Respiratory Rate 23 20 20 Respiratory Effort / Characteristics Respiratory Depth Respiratory Pattern Blood Pressure 170/108 H 161/112 H 156/100 H Blood Pressure [Right Arm] Blood Pressure Mean 128 128 118 Blood Pressure Mean [Right Arm] Blood Pressure Position Pulse Oximetry 92 94 94 Oxygen Delivery Method Sepsis Recent Fever Within 48 Hours Sepsis New/Unexplained Change in Mental Status Sepsis Action Taken by Nursing 09/23/24 20:54 09/23/24 21:30 Temperature Temperature Source Pulse Rate 100 H 119 H Pulse Rate [Apical] Pulse Rhythm [Apical] Pulse Strength Pulse Strength [Apical] Respiratory Rate 22 22 Respiratory Effort / Characteristics Respiratory Depth Respiratory Pattern Blood Pressure 166/98 H 181/72 H Blood Pressure [Right Arm] Blood Pressure Mean 120 108 Blood Pressure Mean [Right Arm] Blood Pressure Position Pulse Oximetry 95 93 Oxygen Delivery Method Sepsis Recent Fever Within 48 Hours Sepsis New/Unexplained Change in Mental Status Sepsis Action Taken by Nursing Laboratory Data Attestation: I reviewed the patient's lab results. 09/23/24 16:35 09/23/24 16:35 Lab Results 09/23/24 09/23/24 09/23/24 Range/Units 16:35 16:37 19:26 WBC 14.42 H (4.8-10.8) K/ul RBC 5.18 (4.20-5.40) M/uL Hgb 14.6 (12.0-16.0) g/dl POC Hgb 15.6 (12.0-16.0) g/dl Hct 45.8 (37.0-47.0) % POC Hct 46 (37-47) % MCV 88.4 (80.0-100.0) fL MCH 28.2 (25.0-34.0) pg MCHC 31.9 L (32.0-36.0) g/dL RDW Std Deviation 52.1 H (36.4-46.3) fL RDW Coeff of [place] 16.0 H (11.5-14.5) % Plt Count 237 (130-400) K/uL MPV 9.3 L (9.4-12.4) fL Immature Gran % (Auto) 1.0 % Neut % (Auto) 72.2 % Lymph % (Auto) 17.8 % [place] % (Auto) 7.9 % Eos % (Auto) 0.9 % Baso % (Auto) 0.2 % Neut # (Auto) 10.41 H (1.40-6.50) K/uL Lymph # (Auto) 2.56 (1.20-3.40) K/uL [place] # (Auto) 1.14 H (0.11-0.59) K/uL Eos # (Auto) 0.13 (0.00-0.50) K/uL Baso # (Auto) 0.03 (0.00-0.20) K/uL Immature Gran # (Auto) 0.15 (0.01-0.20) K/uL POC Sodium 141 (135-144) mmol/L Sodium 141 (136-145) mmol/L POC Potassium 3.7 (3.3-5.0) mmol/L Potassium 3.7 (3.5-5.1) mmol/L POC Chloride 99 L (101-112) mmol/L Chloride 100 (98-107) mmol/L Carbon Dioxide 36 H (21-32) mmol/L POC Total CO2 31 (24-31) mmol/L Anion Gap 5 (3-11) POC Anion Gap 16.0 (16-25) mmol/L POC BUN 33 H (7-18) mg/dl BUN 33 H (6-23) mg/dl Creatinine 0.55 L (0.6-1.2) mg/dl POC Creatinine 0.6 (0.6-1.3) mg/dl Est Cr Clr Drug Dosing 75.6 ml/min eGFR 89.77 BUN/Creatinine Ratio 60.0 H (10-20) Glucose 101 H (70-99(Fasting)) mg/dl POC Glucose (other) 101 H (70-99) mg/dl Calcium 10.5 H (8.6-10.3) mg/dl POC Ioniz Calcium Jasvir 1.35 H (1.12-1.32) mmol/l Phosphorus 3.4 (2.5-4.9) mg/dl Magnesium 1.8 (1.7-2.4) mg/dl Total Bilirubin 0.5 (0.2-1.0) mg/dl AST 21 (13-39) U/L ALT 25 (7-52) U/L Alkaline Phosphatase 99 (34-104) U/L Total Protein 7.0 (6.0-8.3) gm/dl Albumin 4.3 (3.4-5.0) gm/dl Globulin 2.7 (2.5-4.0) gm/dl Albumin/Globulin Ratio 1.6 (0.9-2) Urine Color Yellow Urine Appearance Clear (Clear) Urine pH 8.0 H (4.5-7.5) Ur Specific [place] 1.032 H (1.000-1.030) Urine Protein Negative (Negative) Urine Glucose (UA) Negative (Negative) Urine Ketones Negative (Negative) Urine Blood Negative (Negative) Urine Nitrite Positive A (Negative) Urine Bilirubin Negative (Negative) Urine Urobilinogen Negative (Negative) Ur Leukocyte Esterase Negative (Negative) Urine WBC (Auto) 0-5 (0-5) /hpf Urine RBC (Auto) 0-2 (0-2) /hpf U Hyaline Cast (Auto) 0-2 (0-2) /lpf U Epithel Cells (Auto) 0-2 (0-2) /hpf Urine Bacteria (Auto) 4+ H (None Seen) Administered Medications Sodium Chloride (Nss) 1,000 mls @ 100 mls/hr IV .Q10H KEESHA Stop: 09/24/24 19:08 Last Admin: 09/24/24 00:54 Dose: 100 mls/hr Documented By: BRITNEY Discontinued Medications Acetaminophen (Acetaminophen 500 Mg Tab) 1,000 mg PO TID STA Stop: 09/23/24 23:10 Last Admin: 09/23/24 23:56 Dose: 1,000 mg Documented By: BRITNEY Apixaban (Apixaban 5 Mg Tablet) 5 mg PO ONE ONE Stop: 09/23/24 21:41 Last Admin: 09/23/24 22:28 Dose: 5 mg Documented By: VAISHNAVI Atorvastatin Calcium (Atorvastatin 40 Mg Tab) 40 mg PO NOW STA Stop: 09/23/24 21:41 Last Admin: 09/23/24 22:28 Dose: 40 mg Documented By: VAISHNAVI Dexamethasone Sodium Phosphate (DexamethasonePf 10 Mg/Ml Vial) 10 mg IV NOW ONE Stop: 09/23/24 16:22 Last Admin: 09/23/24 16:31 Dose: 10 mg Documented By: OLEG Gabapentin (Gabapentin 100 Mg Cap) 200 mg PO NOW STA Stop: 09/23/24 21:41 Last Admin: 09/23/24 22:28 Dose: 200 mg Documented By: VAISHNAVI Gadobutrol (Gadobutrol 65ml Vial) 7 ml IV ONCE ONE Stop: 09/24/24 00:38 Last Admin: 09/24/24 00:38 Dose: 7 ml Documented By: AVERY Sodium Chloride (Nss) 500 mls @ 999 mls/hr IV .Q31M KEESHA Stop: 09/23/24 17:00 Last Infusion: 09/23/24 17:06 Dose: Infused Documented By: Admin: 09/23/24 16:31 Dose: 999 mls/hr Documented By: OLEG Acetaminophen (Ofirmev) 1,000 mg in 100 mls @ 400 mls/hr IV NOW STA Stop: 09/23/24 16:30 Last Infusion: 09/23/24 17:04 Dose: Infused Documented By: Admin: 09/23/24 16:31 Dose: 400 mls/hr Documented By: OLEG Ceftriaxone Sodium (Rocephin) 2,000 mg in 50 mls @ 100 mls/hr IV NOW STA Stop: 09/23/24 20:53 Last Infusion: 09/23/24 22:00 Dose: Infused Documented By: Admin: 09/23/24 21:24 Dose: 100 mls/hr Documented By: TRACY Ioversol (Optiray 320 100ml) 93 ml IV ONCE ONE Stop: 09/23/24 16:52 Last Admin: 09/23/24 16:51 Dose: 93 ml Documented By: GARTH Lamotrigine (Lamotrigine 25 Mg Tab) 150 mg PO NOW STA; Protocol Stop: 09/23/24 21:41 Last Admin: 09/23/24 22:29 Dose: 150 mg Documented By: VAISHNAVI Lidocaine (Lidocaine 5% 1 Patch) 1 patch TD NOW STA Stop: 09/23/24 16:22 Last Admin: 09/23/24 16:31 Dose: 1 patch Documented By: OLEG Miscellaneous (Remove Lidoderm Patch) 1 each N/A DAILY@2100 KEESHA Stop: 10/23/24 20:59 Last Admin: 09/23/24 23:11 Dose: 1 each Documented By: BRITNEY Pramipexole Dihydrochloride (Pramipexole Dihydrochlo 0.5 Mg Tab) 0.5 mg PO NOW STA Stop: 09/23/24 21:41 Last Admin: 09/23/24 22:29 Dose: 0.5 mg Documented By: VAISHNAVI Trazodone HCl (Trazodone Hcl 100 Mg Tab) 200 mg PO NOW STA Stop: 09/23/24 21:41 Last Admin: 09/23/24 22:26 Dose: 200 mg Documented By: VAISHNAVI Imaging Data Radiologist's Impression: Abdomen/Pelvis CT 09/23/24 16:22 EXAM: CT abd pelvis IV con only CLINICAL HISTORY: right hip, lumbar pain TECHNIQUE: CT of the abdomen and pelvis was performed with and without contrast, with the following protocol: axial images with, and reconstructed coronal and sagittal images. 93 ml opti 320 was administered intravenously. One of the following dose reduction techniques was utilized for this exam: Automated exposure control, adjustment of the mA and/or kV according to patient size, and use of iterative reconstruction. DLP: 758.47 mGy-cm, CTDI: 15.37 mGy. COMPARISON: Comparison is made with the prior CT abdomen and pelvis dated 02/18/2024, 07/05/2019. FINDINGS: Chest: Cardiomegaly. Left lower lung base small cyst and focal subpleural air-space opacity, could be atelectasis. Abdomen: Liver: Normal in size, shape, and density. Multiple hypodense lesions with no enhancement, largest 7x11 mm at segment 8. Hepatic vasculature and biliary ducts are unremarkable. Gallbladder and Biliary System: The gallbladder is normal in size and shape. No wall thickening, pericholecystic fluid, or gallstones were identified. The common bile duct is normal in caliber without dilation. Pancreas: The pancreatic head, body, and tail are visualized and appear normal in size and density. No pancreatic masses or calcifications were noted. The pancreatic duct is not dilated. Spleen: Normal in size, shape, and density. Multiple small hypodense lesions Appendix: Not seen. No evidence of appendiceal abscess or perforation. Kidneys and Adrenal Glands: Both kidneys are normal in size, shape, and position. Right simple renal cysts, largest 18x19 mm at upper pole. Cortical thickness is within normal limits. No renal calculi or hydronephrosis.The The right Adrenal gland is unremarkable with no evidence of masses or hyperplasia. Left adrenal gland fat-containing lesion about 12x12 mm. Pelvis: Urinary Bladder: Normal in contour and wall thickness. No intraluminal lesions identified. Uterus: Not seen. Ovaries. 18x16 right ovarian cyst and left ovarian cyst 13x16 mm Vagina: Normal in contour and wall thickness. Peritoneal and Retroperitoneal Structures: No free fluid or abnormal fluid collections were identified within the abdomen or pelvis. Right iliac fossa mesenteric lymphadenitis. Bowel: The visualized bowel loops are normal in caliber and appearance. No evidence of bowel obstruction or wall thickening. Bones and Soft Tissues: Right hip replacement device. Lumbar spondylosis. Diffuse decrease in bone density. Posterior fixation of L3 and L4 with intervertebral disc spacing. L1 over L2 mild retrolisthesis. L2 intraspinal ring calcified oval-shaped lesion 8.5x16 mm Facet arthropathy. L3 and L4 bilateral laminectomy. Widening of the diaphragmatic hiatus tramaine 24 mm. Detached bone fragment at the anterior inferior iliac spine, right side likely previous avulsion. IMPRESSION: 1. L2 intraspinal calcified lesion measuring 8.5x16 mm. Suggest an MRI assessment. (new) 2. Right iliac fossa mesenteric lymphadenitis. (new) 3. Multiple liver and splenic hypodense lesions are likely cysts/ hemangiomas.(unchanged) 4. Right simple renal cysts (BOSNIAK I) (unchanged) 5. Left adrenal gland fat-containing lesion is likely benign (unchanged.) Electronically signed by Milton Carlos 09-23-2024 7:09 PM Discharge Plan Visit Data Chief Complaint: Leg Injury/Pain ED Provider: Brendon Joe Discharge Problem: Chronic right hip pain, Ambulatory dysfunction, Pain in right lumbar region of back, Abnormal finding on CT scan, Urinary tract infection Patient Disposition: Admitted As Inpatient Condition: Fair Discharge Instructions Interventions: ED Discharge Assessment Last Done: 09/23/24 22:36 Discharge Problem: Urinary tract infection Qualifiers: Urinary tract infection type: site unspecified Hematuria presence: without hematuria Qualified Code(s): N39.0 - Urinary tract infection, site not specified
[2024-09-23] MEDS: dexAMETHasone**PF** 10 MG/ML VIAL IV ONE (16:31)
[2024-09-23] MEDS: SODIUM CHLORIDE 0.9% 500 ML IV SCH (16:31)
[2024-09-23] MEDS: ACETAMINOPHEN 1,000 MG/100 ML VIAL IV STA (16:31)
[2024-09-23] MEDS: LIDOCAINE 5% 1 PATCH TD STA (16:31)
[2024-09-23 16:49] LABS: Basophils # (auto) 0.03 K/uL (0.00-0.20); Basophils % (auto) 0.2 %; Eosinophils # (auto) 0.13 K/uL (0.00-0.50); Eosinophils % (auto) 0.9 %; Hematocrit (blood only) 45.8 % (37.0-47.0); Hemoglobin 14.6 g/dl (12.0-16.0); Immature Granulocytes # (auto) 0.15 K/uL (0.01-0.20); Lymphocytes # (auto) 2.56 K/uL (1.20-3.40); Lymphocytes % (auto) 17.8 %; Mean Corpuscular Hemoglobin 28.2 pg (25.0-34.0); Mean Corpuscular Hgb Conc 31.9 g/dL (32.0-36.0); Mean Corpuscular Volume 88.4 fL (80.0-100.0); Mean Platelet Volume 9.3 fL (9.4-12.4); Monocytes # (auto) 1.14 K/uL (0.11-0.59); Monocytes % (auto) 7.9 %; Neutrophils # (auto) 10.41 K/uL (1.40-6.50); Neutrophils % (auto) 72.2 %; Platelet Count 237 K/uL (130-400); RDW Standard Deviation 52.1 fL (36.4-46.3); Red Blood Count 5.18 M/uL (4.20-5.40); White Blood Count 14.42 K/ul (4.8-10.8)
[2024-09-23 16:50] LABS: iSTAT Creatinine 0.6 mg/dl (0.6-1.3); iSTAT Hemoglobin 15.6 g/dl (12.0-16.0); iSTAT Ionized Calcium 1.35 mmol/l (1.12-1.32); iSTAT Potassium 3.7 mmol/L (3.3-5.0)
[2024-09-23] MEDS: OPTIRAY 320 100ml IV ONE (16:51)
[2024-09-23 17:05] LABS: Albumin Globulin Ratio 1.6 (0.9-2); Albumin Level 4.3 gm/dl (3.4-5.0); Bilirubin,Total 0.5 mg/dl (0.2-1.0); Calcium 10.5 mg/dl (8.6-10.3); Creatinine Clr Calc Pharmacy 75.6 ml/min; Globulin 2.7 gm/dl (2.5-4.0); Potassium 3.7 mmol/L (3.5-5.1)
--- NOTE | 2024-09-23 19:12 | CT Scan Report ---
EXAM: CT abd pelvis IV con only CLINICAL HISTORY: right hip, lumbar pain TECHNIQUE: CT of the abdomen and pelvis was performed with and without contrast, with the following protocol: axial images with, and reconstructed coronal and sagittal images. 93 ml opti 320 was administered intravenously. One of the following dose reduction techniques was utilized for this exam: Automated exposure control, adjustment of the mA and/or kV according to patient size, and use of iterative reconstruction. DLP: 758.47 mGy-cm, CTDI: 15.37 mGy. COMPARISON: Comparison is made with the prior CT abdomen and pelvis dated 02/18/2024, 07/05/2019. FINDINGS: Chest: Cardiomegaly. Left lower lung base small cyst and focal subpleural air-space opacity, could be atelectasis. Abdomen: Liver: Normal in size, shape, and density. Multiple hypodense lesions with no enhancement, largest 7x11 mm at segment 8. Hepatic vasculature and biliary ducts are unremarkable. Gallbladder and Biliary System: The gallbladder is normal in size and shape. No wall thickening, pericholecystic fluid, or gallstones were identified. The common bile duct is normal in caliber without dilation. Pancreas: The pancreatic head, body, and tail are visualized and appear normal in size and density. No pancreatic masses or calcifications were noted. The pancreatic duct is not dilated. Spleen: Normal in size, shape, and density. Multiple small hypodense lesions Appendix: Not seen. No evidence of appendiceal abscess or perforation. Kidneys and Adrenal Glands: Both kidneys are normal in size, shape, and position. Right simple renal cysts, largest 18x19 mm at upper pole. Cortical thickness is within normal limits. No renal calculi or hydronephrosis.The The right Adrenal gland is unremarkable with no evidence of masses or hyperplasia. Left adrenal gland fat-containing lesion about 12x12 mm. Pelvis: Urinary Bladder: Normal in contour and wall thickness. No intraluminal lesions identified. Uterus: Not seen. Ovaries. 18x16 right ovarian cyst and left ovarian cyst 13x16 mm Vagina: Normal in contour and wall thickness. Peritoneal and Retroperitoneal Structures: No free fluid or abnormal fluid collections were identified within the abdomen or pelvis. Right iliac fossa mesenteric lymphadenitis. Bowel: The visualized bowel loops are normal in caliber and appearance. No evidence of bowel obstruction or wall thickening. Bones and Soft Tissues: Right hip replacement device. Lumbar spondylosis. Diffuse decrease in bone density. Posterior fixation of L3 and L4 with intervertebral disc spacing. L1 over L2 mild retrolisthesis. L2 intraspinal ring calcified oval-shaped lesion 8.5x16 mm Facet arthropathy. L3 and L4 bilateral laminectomy. Widening of the diaphragmatic hiatus tramaine 24 mm. Detached bone fragment at the anterior inferior iliac spine, right side likely previous avulsion. IMPRESSION: 1. L2 intraspinal calcified lesion measuring 8.5x16 mm. Suggest an MRI assessment. (new) 2. Right iliac fossa mesenteric lymphadenitis. (new) 3. Multiple liver and splenic hypodense lesions are likely cysts/ hemangiomas.(unchanged) 4. Right simple renal cysts (BOSNIAK I) (unchanged) 5. Left adrenal gland fat-containing lesion is likely benign (unchanged.) Electronically signed by Milton Carlos 09-23-2024 7:09 PM
[2024-09-23 19:54] LABS: Appearance Urine Clear (Clear); Bacteria Urine Automated 4+ (None Seen); Bilirubin Urine Negative (Negative); Blood Urine Negative (Negative); Cast Urine Automated 0-2 /lpf (0-2); Color Urine Yellow; Epithelial Cell Urine Auto 0-2 /hpf (0-2); Glucose Urine UA Negative (Negative); Ketones Urine Negative (Negative); Leukocyte Esterase Urine Negative (Negative); Nitrite Urine Positive (Negative); Protein Urine Negative (Negative); RBC Urine Automated 0-2 /hpf (0-2); Specific Gravity Urine 1.032 (1.000-1.030); Urobilinogen Urine Negative (Negative); WBC Urine Automated 0-5 /hpf (0-5)
[2024-09-23] MEDS: cefTRIAXone SODIUM 2,000 MG/50 ML BAG IV STA (21:24)
--- NOTE | 2024-09-23 21:48 | History & Physical Report ---
Date of Service September 23, 2024 Assessment & Plan (1) Acute low back pain with radicular symptoms, duration less than 6 weeks: (2) Ambulatory dysfunction: (3) Secondary adrenal insufficiency: (4) Atrial fibrillation: (5) CAD (coronary artery disease): (6) ADHD: (7) Chronic obstructive pulmonary disease: (8) Hyperlipidemia: Plan 84-year-old female with history of atrial fibrillation, coronary artery disease, COPD/asthma as well as secondary adrenal insufficiency presenting with several weeks of progressive right back pain with radicular symptoms. Patient is unable to walk at home and sustained several falls in the last several weeks. #Acute low back pain with radicular symptomspatient reports pain in the right side of her back with radiation across her anterior thigh and into her groin. CT of the abdomen/pelvis as above incidentally noted L2 intraspinal calcified lesion measuring 8.5 x 16 mm which is new Admit to medical Check MRI lumbar spine to further assess lesion noted on CT and nerve root involvement given patient's radicular symptoms Lidoderm patch Heat as needed Tylenol 1 g p.o. 3 times daily scheduled Continue gabapentin 200 mg p.o. twice daily PT/OT #Patient with elevated ionized calcium on initial labs. Possibly secondary to volume contraction. She is provided with IV fluids with repeat ionized calcium in the morning Normal saline at 100 mL/h x 2 L #Ambulatory dysfunctionsecondary to acute back pain Maintain fall precautions Management as above PT/OT #UTIpatient's urine suggestive of infection with nitrites and 4+ bacteria. Follow culture Continue ceftriaxone 2 g IV daily #Secondary adrenal insufficiencypatient's blood pressure is elevated at present. No evidence of crisis Continue home hydrocortisone patient takes 15 mg first in the morning then 5 mg 8 hours later #Atrial fibrillationpatient with mildly elevated heart rate at present Pain control as above Continue apixaban 5 mg p.o. twice daily Continue home digoxin 0.125 mg daily Continue diltiazem 360 mg p.o. every morning Continue to monitor #Coronary artery diseasepatient denies chest pain Continue aspirin 81 mg Continue atorvastatin 40 mg p.o. nightly #ADHD/anxiety/mental healthchronic, stable Continue home dextroamphetamine Continue escitalopram 20 mg p.o. every morning Continue Lamictal 150 mg p.o. nightly Continue trazodone 200 mg p.o. nightly Continue BuSpar 5 mg p.o. twice daily History of Present Illness Chief Complaint: progressive hip pain, back pain, ambulatory dysfunction Primary Care Provider: Faiza Costa MD Jigna Alves is an 84-year-old female with history of asthma/COPD, hyperlipidemia, coronary artery disease and CKD presenting with several weeks of progressive pain. Patient has pain at her right lower lumbar region with radiation into her buttock, hip and groin. Last week she began to experience pain on the top of her leg radiating anteriorly into her groin to her knee. She denies fever, chills. Denies urinary symptoms or issues with bowel. Denies chest pain, cough, worsening shortness of breath, abdominal pain, nausea, vomiting, diarrhea. Patient reports that she is unable to walk due to bilateral lower extremity weakness. Pain 8/10 in severity. Has been constant.She has been sliding out of bed and has sustained several falls over the last several weeks. Denies head trauma but has fallen onto her backlast was August 30. In the ER patient is afebrile, hemodynamically stable Allergies Allergy/AdvReac Type Severity Reaction Status Date / Time azithromycin Allergy Unknown throat Verified 09/23/24 20:53 burned, lost weight chocolate flavor Allergy Unknown hx rash Verified 09/23/24 20:53 fluticasone Allergy Unknown chest pain Verified 09/23/24 20:54 (from Advair) Penicillins Allergy Unknown per Verified 09/23/24 20:51 allergy test procaine Allergy Unknown novacaine Verified 09/23/24 20:53 - anaphylaxis, mouth swelling, dyspnea salmeterol Allergy Unknown chest pain Verified 09/23/24 20:54 (from Advair) moxifloxacin AdvReac Unknown N/V Verified 09/23/24 20:54 NSAIDS (Non-Steroidal AdvReac Unknown advised to Verified 09/23/24 20:52 Anti-Inflamma avoid d/t ulcer hx zolpidem AdvReac Unknown sleep Verified 09/23/24 20:52 walking Home Medications Medication Instructions Recorded Confirmed Type psyllium seed (sugar) oral powder 1 tbsp PO DAILY PRN Constipation 03/03/20 09/23/24 History (Metamucil (sugar) oral powder) aspirin 81 mg tablet,delayed 81 mg PO HS #30 tabs 08/18/20 09/23/24 Rx release multivitamin 1 tab PO QAM #30 tabs 09/13/20 09/23/24 Rx Scooter #1 ea 04/03/21 08/27/24 Rx travoprost 0.004 % eye drops 1 drp OPB QPM 05/03/21 09/23/24 History dextroamphetamine-amphetamine 10 10 mg PO .DAILY@2PM 03/07/22 09/23/24 History mg tablet (Adderall) ascorbic acid (vitamin C) 500 mg 500 mg PO QAM 11/12/22 09/23/24 History tablet (Vitamin C) biotin 10 mg tablet 10 mg PO QAM 11/12/22 09/23/24 History guaifenesin 600 mg tablet, 600 mg PO Q6H PRN Congestion 11/12/22 09/23/24 History extended release 12 hr (Mucinex) nebulizer accessories #2 ea 03/31/23 08/27/24 Rx nebulizers #1 ea 03/31/23 08/27/24 Rx cyanocobalamin (vitamin B-12) 2,500 mcg PO QAM 05/06/23 09/23/24 History 2,500 mcg tablet apixaban 5 mg tablet (Eliquis) 5 mg PO BID #60 tabs 01/21/24 09/23/24 Rx buspirone 5 mg tablet 5 mg PO BID Anxiety 02/18/24 09/23/24 History albuterol sulfate 2.5 mg/3 mL 3 mg inhalation TID asthma attacks 02/20/24 09/23/24 History (0.083 %) solution for nebulization albuterol sulfate 90 mcg/actuation 2 puff inhalation Q6H PRN asthma 02/20/24 09/23/24 History aerosol inhaler (Ventolin HFA) loratadine 10 mg tablet 10 mg PO QAM 02/20/24 09/23/24 History pantoprazole 40 mg tablet,delayed 40 mg PO QAM 03/29/24 09/23/24 History release (Protonix) magnesium oxide 400 mg PO HS #90 tabs 05/17/24 09/23/24 Rx pramipexole 0.5 mg tablet 0.5 mg PO HS #90 tabs 05/17/24 09/23/24 Rx brimonidine 0.2 %-timolol 0.5 % 1 drp OPB BID 06/14/24 09/23/24 History eye drops (Combigan) acetaminophen 500 mg tablet 1,000 mg (2 x 500 mg) PO Q8H PRN 06/18/24 09/23/24 Rx (Tylenol Extra Strength) Pain #0 tabs escitalopram oxalate 20 mg tablet 20 mg PO QAM #0 tabs 06/18/24 09/23/24 Rx (Lexapro) trazodone 150 mg tablet 150 mg PO HS #45 tabs 06/18/24 09/23/24 Rx atorvastatin 40 mg tablet (Lipitor) 40 mg PO HS #90 tabs 07/04/24 09/23/24 Rx digoxin 125 mcg (0.125 mg) tablet 125 mcg PO QAM #90 tabs 07/04/24 09/23/24 Rx montelukast 10 mg tablet 10 mg PO HS #90 tabs 07/04/24 09/23/24 Rx (Singulair) oxybutynin chloride 5 mg 5 mg PO QAM #90 tabs 07/04/24 09/23/24 Rx tablet,extended release 24 hr Wheeled Walker #1 ea 07/08/24 08/27/24 Rx Oxygen Home #1 ea 07/27/24 08/27/24 Rx diaper,brief,adult,disposable #6 ea 08/06/24 08/27/24 Rx (Select Disposable Briefs) hydrocortisone 5 mg tablet See Rx Instructions .Route 08/27/24 09/23/24 Rx .COMPLEX #270 tabs gabapentin 100 mg capsule 200 mg (2 x 100 mg) PO BID #120 09/22/24 09/23/24 Rx caps calcium 600 mg (as 1 tab PO BID 09/23/24 09/23/24 History carbonate)-vitamin D3 10 mcg (400 unit) tablet (Calcium 600 + D(3)) cholecalciferol (vitamin D3) 125 125 mcg PO QAM 09/23/24 09/23/24 History mcg (5,000 unit) tablet (Vitamin D3) dextroamphetamine-amphetamine 10 20 mg PO .DAILY@6AM 09/23/24 09/23/24 History mg tablet diltiazem HCl 180 mg capsule,24 360 mg PO QAM 09/23/24 09/23/24 History hr,extended release lamotrigine 150 mg tablet 150 mg PO HS 09/23/24 09/23/24 History trazodone 50 mg tablet 50 mg PO HS 09/23/24 09/23/24 History vitamin E 800 unit capsule 800 unit PO QAM 09/23/24 09/23/24 History zinc gluconate 50 mg tablet 50 mg PO QAM 09/23/24 09/23/24 History Past Med/Surg History Problem List (Updated 09/24/24 @ 01:02 by Lynne Tapia, DO) Acute low back pain with radicular symptoms, duration less than 6 weeks Greater trochanteric bursitis of right hip Rotator cuff arthropathy of left shoulder Secondary adrenal insufficiency Anticoagulant long-term use Scapular fracture (06/14/24) Acute fracture at the base of the acromion from a fall. Leg length discrepancy Adrenal insufficiency Hypercalcemia Orthostatic hypotension Nocturnal hypoxia o2 3L HS. Fracture of acromion of scapula (06/14/24) Acute fracture at the base of the acromion from a fall. Atrial fibrillation Ambulatory dysfunction Recurrent falls Contusion of knee, right (Acute) Generalized weakness (Acute) Obstructive lung disease Acromioclavicular joint arthritis Rotator cuff arthropathy of right shoulder Left ventricular systolic dysfunction Mitral regurgitation Aortic regurgitation Prediabetes Nonobstructive atherosclerosis of coronary artery Subacromial bursitis Glenohumeral arthritis SI (sacroiliac) joint dysfunction Osteoarthritis of ankle, left CAD (coronary artery disease) Mild- luminal irregularities only on 2003 cardiac cath Esophageal dysphagia Chronic constipation with overflow incontinence ADHD Stable Chronic obstructive pulmonary disease stable Allergic rhinitis (Chronic) Anxiety disorder (Chronic) follows with psych Benign familial tremor (Chronic) Cervicalgia (Chronic) Controlled substance agreement broken (Chronic) Former smoker (Chronic) Fusion of spine, lumbar region (Chronic) Glaucoma (Chronic) Hyperlipidemia (Chronic) Raynaud's disease (Chronic) Rectocele (Chronic) Restless legs syndrome (Chronic) SNHL (sensorineural hearing loss) (Chronic) Solitary pulmonary nodule (Chronic) Urge incontinence of urine (Chronic) Vitamin D deficiency (Chronic) Hypomagnesemia (Chronic) CKD (chronic kidney disease) stage 3, GFR 30-59 ml/min (Chronic) Depression (Chronic) Anemia (Chronic) Asthma (Chronic) Lumbar stenosis with neurogenic claudication (Chronic) Medical History Pre-diabetes CKD (chronic kidney disease) pt denies Mitral regurgitation Left ventricular systolic dysfunction EF 45-50% on 03/2023 echo; > 55% 12/2023 stress echo CAD (coronary artery disease) mild in 2003 per [facility] records Aortic regurgitation mild to moderate on 03/2023 echo Esophageal dysphagia Asthma COPD (chronic obstructive pulmonary disease) Anxiety Raynauds disease Acid reflux controlled, stable per pt Tremor hands History of gastric ulcer History of sepsis (2022) History of skin cancer removed Difficult intravenous access Rectocele Arthritis of neck mild limitation rom. 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 Rheumatoid arthritis (02/25/13) per pt dx at age with RA. Surgical History Status post reverse total replacement of right shoulder (~03/2024) History of lumbar fusion x2 most recent 2018 History of foot surgery toes on left foot - pt confirms a total of 4 left foot surgeries. History of foot surgery left removal of bone spur S/P foot surgery, left LEFT FOOT LITTLE TOE AMPUTATED 2022. S/P foot surgery, left left ankle/foot reconstruction (2019) History of total hip arthroplasty right hip H/O toe surgery left foot History of total knee replacement bilateral; right TKA: 05/22/17: SAB x1 at L3-L4 + PNB at [facility] S/P hardware removal right ankle S/P laparotomy removed adhesions to relieve bowel strangulation S/P ankle arthrodesis right ankle History of open reduction and internal fixation (ORIF) procedure right ankle H/O elbow surgery bilateral S/P AMANDA (total abdominal hysterectomy) H/O thumb surgery right x2 History of appendectomy History of colonoscopy History of esophagogastroduodenoscopy (EGD) History of surgical removal of skin lesion History of tonsillectomy Family History Family/Other Coronary heart disease Heart disease Cancer Hypertension Brother Prostate cancer Benign familial tremor Father Benign familial tremor Mother Malignant melanoma Aunt Rheumatoid arthritis Other No family history of adverse response to anesthesia Denies family history of Ovarian cancer Myocardial infarction Breast cancer Colorectal cancer Social History Smoking Status: Former smoker Tobacco Type: Cigarettes Age Started Using Tobacco: 19 (intermittently quit throughout the years); Age Quit Using Tobacco: 81; packs per day: 0.1; Cigarettes Per Day: 2; Second Hand Exposure: No; Do You Dip or Chew Tobacco: No; Hx Alcohol Use: Yes Alcohol type: beer Alcohol Intake Frequency: Monthly or L ess Alcohol Intake Frequency Comment: rarely Hx Substance Use: No Preferred Language: Sami Communication Ability: Effective Visual Impairment: No Limitations Hearing Ability: Hard of Hearing Process Line Operator Required: No Beliefs That Will Affect Care: None marital status: Current Living Situation: Alone Current Living Situation Comment: apartment building 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al status: retired 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: 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[employer], 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 How many Children do You have: 2 Feels Safe at Home: Yes Safety Concerns: Feels Safe At This Time Childhood Exposure to Second-Hand Smoke: No Diet: regular caffeine: Yes during the past year weight has: remained stable Dental Care, Regularly: No Physical Activity Frequency: Daily Seatbelt Use: always Sunscreen Use: Yes (sometimes ) Assistive Devices: Denture - Upper, Denture - Lower, Glasses, Hearing Aid - Bilateral, Oxygen - at Night and Walker Review of Systems Review of Systems: All systems reviewed & are unremarkable except as noted in HPI & below Physical Exam Physical Exam: General: patient resting comfortably, NAD, non-toxic in appearance, AA&O x 4 Skin: warm, dry, intact, no rashes or lesions HEENT: NC/AT, PERRL, EOMI, anicteric sclera, conjunctiva without injection, external ear normal to inspection and nontender, nares patent, moist mucus membranes, dentition intact, no oropharyngeal lesions, neck supple, trachea midline, no LAD, no thyromegaly, no JVD Heart: +S1/S2, irregularly irregular, tachycardic Lungs: equal air entry bilaterally, no rales/rhonchi/wheezes Abd: +BS, soft, NT/ND, no masses/organomegaly/ascites Ext: warm, 2+ pulses in UE/LE bilaterally, no clubbing/cyanosis or edema Pain with palpation of right lumbar paraspinal musculature, right SI joint and buttock. Positive straight leg raise Neuro: nonfocal, patient AA&O x 4, speech intact, no facial droop, moving all extremities on command with equal strength 5/5 Results & Data Results & Data Vital Signs (Past 12 Hours) Vital Signs Temp Pulse Pulse Resp BP BP Pulse Ox 09/23/24 21:41 106 H 09/23/24 21:30 119 H 22 181/72 H 93 09/23/24 20:54 100 H 22 166/98 H 95 09/23/24 20:33 93 H 20 156/100 H 94 09/23/24 20:06 90 20 161/112 H 94 09/23/24 19:42 90 23 170/108 H 92 09/23/24 19:09 85 23 164/102 H 96 09/23/24 18:53 82 20 181/82 H 96 09/23/24 17:06 85 20 153/102 H 96 09/23/24 17:06 88 16 95 09/23/24 15:03 81 19 09/23/24 14:56 36.6 C 78 17 148/94 H 95 O2 Del Method 09/23/24 21:41 09/23/24 21:30 09/23/24 20:54 09/23/24 20:33 09/23/24 20:06 09/23/24 19:42 09/23/24 19:09 09/23/24 18:53 Room Air 09/23/24 17:06 Room Air 09/23/24 17:06 Room Air 09/23/24 15:03 09/23/24 14:56 Room Air Laboratory Results Laboratory Results WBC 14.42 K/ul (4.8-10.8) H 09/23/24 16:35 RBC 5.18 M/uL (4.20-5.40) 09/23/24 16:35 Hgb 14.6 g/dl (12.0-16.0) 09/23/24 16:35 POC Hgb 15.6 g/dl (12.0-16.0) 09/23/24 16:37 Hct 45.8 % (37.0-47.0) 09/23/24 16:35 POC Hct 46 % (37-47) 09/23/24 16:37 MCV 88.4 fL (80.0-100.0) 09/23/24 16:35 MCH 28.2 pg (25.0-34.0) 09/23/24 16:35 MCHC 31.9 g/dL (32.0-36.0) L 09/23/24 16:35 RDW Std Deviation 52.1 fL (36.4-46.3) H 09/23/24 16:35 RDW Coeff of [place] 16.0 % (11.5-14.5) H 09/23/24 16:35 Plt Count 237 K/uL (130-400) 09/23/24 16:35 MPV 9.3 fL (9.4-12.4) L 09/23/24 16:35 Immature Gran % (Auto) 1.0 % 09/23/24 16:35 Neut % (Auto) 72.2 % 09/23/24 16:35 Lymph % (Auto) 17.8 % 09/23/24 16:35 Scott % (Auto) 7.9 % 09/23/24 16:35 Eos % (Auto) 0.9 % 09/23/24 16:35 Baso % (Auto) 0.2 % 09/23/24 16:35 Neut # (Auto) 10.41 K/uL (1.40-6.50) H 09/23/24 16:35 Lymph # (Auto) 2.56 K/uL (1.20-3.40) 09/23/24 16:35 Scott # (Auto) 1.14 K/uL (0.11-0.59) H 09/23/24 16:35 Eos # (Auto) 0.13 K/uL (0.00-0.50) 09/23/24 16:35 Baso # (Auto) 0.03 K/uL (0.00-0.20) 09/23/24 16:35 Immature Gran # (Auto) 0.15 K/uL (0.01-0.20) 09/23/24 16:35 POC Sodium 141 mmol/L (135-144) 09/23/24 16:37 Sodium 141 mmol/L (136-145) 09/23/24 16:35 POC Potassium 3.7 mmol/L (3.3-5.0) 09/23/24 16:37 Potassium 3.7 mmol/L (3.5-5.1) 09/23/24 16:35 POC Chloride 99 mmol/L (101-112) L 09/23/24 16:37 Chloride 100 mmol/L (98-107) 09/23/24 16:35 Carbon Dioxide 36 mmol/L (21-32) H 09/23/24 16:35 POC Total CO2 31 mmol/L (24-31) 09/23/24 16:37 Anion Gap 5 (3-11) 09/23/24 16:35 POC Anion Gap 16.0 mmol/L (16-25) 09/23/24 16:37 POC BUN 33 mg/dl (7-18) H 09/23/24 16:37 BUN 33 mg/dl (6-23) H 09/23/24 16:35 Creatinine 0.55 mg/dl (0.6-1.2) L 09/23/24 16:35 POC Creatinine 0.6 mg/dl (0.6-1.3) 09/23/24 16:37 Est Cr Clr Drug Dosing 75.6 ml/min 09/23/24 16:35 eGFR 89.77 09/23/24 16:35 BUN/Creatinine Ratio 60.0 (10-20) H 09/23/24 16:35 Glucose 101 mg/dl (70-99(Fasting)) H 09/23/24 16:35 POC Glucose (other) 101 mg/dl (70-99) H 09/23/24 16:37 Calcium 10.5 mg/dl (8.6-10.3) H 09/23/24 16:35 POC Ioniz Calcium Jasvir 1.35 mmol/l (1.12-1.32) H 09/23/24 16:37 Phosphorus 3.4 mg/dl (2.5-4.9) 09/23/24 16:35 Magnesium 1.8 mg/dl (1.7-2.4) 09/23/24 16:35 Total Bilirubin 0.5 mg/dl (0.2-1.0) 09/23/24 16:35 AST 21 U/L (13-39) 09/23/24 16:35 ALT 25 U/L (7-52) 09/23/24 16:35 Alkaline Phosphatase 99 U/L (34-104) 09/23/24 16:35 Total Protein 7.0 gm/dl (6.0-8.3) 09/23/24 16:35 Albumin 4.3 gm/dl (3.4-5.0) 09/23/24 16:35 Globulin 2.7 gm/dl (2.5-4.0) 09/23/24 16:35 Albumin/Globulin Ratio 1.6 (0.9-2) 09/23/24 16:35 Urine Color Yellow 09/23/24 19:26 Urine Appearance Clear (Clear) 09/23/24 19:26 Urine pH 8.0 (4.5-7.5) H 09/23/24 19:26 Ur Specific [place] 1.032 (1.000-1.030) H 09/23/24 19:26 Urine Protein Negative (Negative) 09/23/24 19: Urine Glucose (UA) Negative (Negative) 09/23/24 19: Urine Ketones Negative (Negative) 09/23/24 19: Urine Blood Negative (Negative) 09/23/24 19:26 Urine Nitrite Positive (Negative) A 09/23/24 19:26 Urine Bilirubin Negative (Negative) 09/23/24 19:26 Urine Urobilinogen Negative (Negative) 09/23/24 19:26 Ur Leukocyte Esterase Negative (Negative) 09/23/24 19:26 Urine WBC (Auto) 0-5 /hpf (0-5) 09/23/24 19:26 Urine RBC (Auto) 0-2 /hpf (0-2) 09/23/24 19:26 U Hyaline Cast (Auto) 0-2 /lpf (0-2) 09/23/24 19:26 U Epithel Cells (Auto) 0-2 /hpf (0-2) 09/23/24 19:26 Urine Bacteria (Auto) 4+ (None Seen) H 09/23/24 19:26 Impressions Abdomen/Pelvis CT 09/23/24 16:22 EXAM: CT abd pelvis IV con only CLINICAL HISTORY: right hip, lumbar pain TECHNIQUE: CT of the abdomen and pelvis was performed with and without contrast, with the following protocol: axial images with, and reconstructed coronal and sagittal images. 93 ml opti 320 was administered intravenously. One of the following dose reduction techniques was utilized for this exam: Automated exposure control, adjustment of the mA and/or kV according to patient size, and use of iterative reconstruction. DLP: 758.47 mGy-cm, CTDI: 15.37 mGy. COMPARISON: Comparison is made with the prior CT abdomen and pelvis dated 02/18/2024, 07/05/2019. FINDINGS: Chest: Cardiomegaly. Left lower lung base small cyst and focal subpleural air-space opacity, could be atelectasis. Abdomen: Liver: Normal in size, shape, and density. Multiple hypodense lesions with no enhancement, largest 7x11 mm at segment 8. Hepatic vasculature and biliary ducts are unremarkable. Gallbladder and Biliary System: The gallbladder is normal in size and shape. No wall thickening, pericholecystic fluid, or gallstones were identified. The common bile duct is normal in caliber without dilation. Pancreas: The pancreatic head, body, and tail are visualized and appear normal in size and density. No pancreatic masses or calcifications were noted. The pancreatic duct is not dilated. Spleen: Normal in size, shape, and density. Multiple small hypodense lesions Appendix: Not seen. No evidence of appendiceal abscess or perforation. Kidneys and Adrenal Glands: Both kidneys are normal in size, shape, and position. Right simple renal cysts, largest 18x19 mm at upper pole. Cortical thickness is within normal limits. No renal calculi or hydronephrosis.The The right Adrenal gland is unremarkable with no evidence of masses or hyperplasia. Left adrenal gland fat-containing lesion about 12x12 mm. Pelvis: Urinary Bladder: Normal in contour and wall thickness. No intraluminal lesions identified. Uterus: Not seen. Ovaries. 18x16 right ovarian cyst and left ovarian cyst 13x16 mm Vagina: Normal in contour and wall thickness. Peritoneal and Retroperitoneal Structures: No free fluid or abnormal fluid collections were identified within the abdomen or pelvis. Right iliac fossa mesenteric lymphadenitis. Bowel: The visualized bowel loops are normal in caliber and appearance. No evidence of bowel obstruction or wall thickening. Bones and Soft Tissues: Right hip replacement device. Lumbar spondylosis. Diffuse decrease in bone density. Posterior fixation of L3 and L4 with intervertebral disc spacing. L1 over L2 mild retrolisthesis. L2 intraspinal ring calcified oval-shaped lesion 8.5x16 mm Facet arthropathy. L3 and L4 bilateral laminectomy. Widening of the diaphragmatic hiatus tramaine 24 mm. Detached bone fragment at the anterior inferior iliac spine, right side likely previous avulsion. IMPRESSION: 1. L2 intraspinal calcified lesion measuring 8.5x16 mm. Suggest an MRI assessment. (new) 2. Right iliac fossa mesenteric lymphadenitis. (new) 3. Multiple liver and splenic hypodense lesions are likely cysts/ hemangiomas.(unchanged) 4. Right simple renal cysts (BOSNIAK I) (unchanged) 5. Left adrenal gland fat-containing lesion is likely benign (unchanged.) Electronically signed by Milton Carlos 09-23-2024 7:09 PM ECG Additional Comments: EKG per my interpretation with atrial fibrillation at 75 bpm, no acute ischemic changes. Code Status & VTE Plan VTE Prophylaxis Plan VTE Prophylaxis will be ordered: Yes PG Care Time/CCT Total # of Minutes Spent Total Time Spent with Patient: Total time spent is greater than 50% in coordination of care (as documented) at patient's floor/unit and/or counseling patient: Coding Level of Care Code 25091 INT INP/OBS CARE 3/75MIN Diagnoses Acute low back pain with radicular symptoms, duration less than 6 weeks M54.10 Ambulatory dysfunction R26.2 Secondary adrenal insufficiency E27.49 Longstanding persistent atrial fibrillation I48.11 Atrial fibrillation type: longstanding persistent CAD (coronary artery disease) I25.10 ADHD F90.9 Chronic obstructive pulmonary disease J44.9 Hyperlipidemia E78.5 (4) Atrial fibrillation Atrial fibrillation type: longstanding persistent Qualified Code(s): I48.11 - Longstanding persistent atrial fibrillation
[2024-09-23] MEDS: traZODone HCL 100 MG TAB PO STA (22:26)
[2024-09-23] MEDS: GABAPENTIN 100 MG CAP PO STA (22:28)
[2024-09-23] MEDS: APIXABAN 5 MG TABLET PO ONE (22:28)
[2024-09-23] MEDS: ATORVASTATIN 40 MG TAB PO STA (22:28)
[2024-09-23] MEDS: PRAMIPEXOLE DIHYDROCHLO 0.5 MG TAB PO STA (22:29)
[2024-09-23] MEDS: lamoTRIgine 25 MG TAB PO STA (22:29)
[2024-09-23] MEDS ORDERED: POLYETHYLENE (MIRALAX) 17 GM PACK PO PRN (23:09)
[2024-09-23] MEDS ORDERED: MELATONIN 3 MG TAB PO PRN (23:09)
[2024-09-23] MEDS ORDERED: ONDANSETRON INJ 2 MG/ML 2 ML VIAL IV PRN (23:09)
[2024-09-23 23:43] LABS: Magnesium 1.8 mg/dl (1.7-2.4); Phosphorus 3.4 mg/dl (2.5-4.9)
[2024-09-23] MEDS: ACETAMINOPHEN 500 MG TAB PO STA (23:56)
[2024-09-24] MEDS: GADOBUTROL 65ML VIAL IV ONE (00:38)
[2024-09-24] MEDS: SODIUM CHLORIDE 0.9% 1,000 ML IV SCH (00:54)
[2024-09-24] MEDS ORDERED: ALBUTEROL HFA 8 GM INHALER INH PRN (01:07)
--- NOTE | 2024-09-24 01:46 | Magnetic Resonance Report ---
EXAM: MR lumbar spine wo/w con CLINICAL HISTORY: Pain, L2 intraspinal calcified lesion 8.5 x 16mm. TECHNIQUE: MRI of the lumbar spine was performed without and with the administration of intravenous contrast (7cc Gadavist). Sequences obtained include sagittal T1-weighted, T2-weighted, STIR (Short Tau Inversion Recovery), and axial T2-weighted sequences. COMPARISON: XR lumbar spine, 11/07/2021. Visualized lumbar spine in CT abdomen and pelvis, dated 09/23/2024. FINDINGS: Vertebral Alignment: Mild levoscoliosis of the lumbar spine. Vertebral Bodies and Intervertebral Discs: Orthopedic fixation screws are present at L3 and L4 levels, limiting evaluation of adjacent structures. Intervertebral disc spacers, noted at L3-L4 and L4-L5. Degenerative endplate changes at T11-T12 with Modic type I signal changes. Multilevel Schmorl's nodes are present. Vertebral body heights are preserved. No acute compression fractures identified. Heterogeneous bone marrow signal pattern, nonspecific. Multilevel disc desiccation noted. [id number] Analysis: T12-L1: No significant disc abnormality. No spinal canal or neural foraminal stenosis. No evidence of ligamentum flavum hypertrophy or facet joint arthropathy. L1-L2: Right paracentral, caudally migrated disc extrusion with intervertebral disc like signal on all sequences and no post-contrast enhancement, consistent with a likely sequestered disc fragment with calcification. Dimensions approximately 20 mm (craniocaudal), 8.6 mm (anteroposterior), and 9.9 mm (transverse). This correlates with a peripheral calcified lesion seen on recent CT imaging. The disc fragment impinges on the right anterolateral aspect of the thecal sac and compresses the cauda equina and traversing right L2 nerve root. Associated with severe central canal stenosis and right-sided lower-level neural foraminal narrowing. Superimposed diffuse disc bulge measuring approximately 3.2 mm. Mild to moderate bilateral neural foraminal narrowing. Mild ligamentum flavum hypertrophy and facet joint arthropathy. L2-L3: Diffuse disc bulge, approximately 3 mm. Mild to moderate central canal stenosis and bilateral neural foraminal narrowing. Mild ligamentum flavum hypertrophy and facet joint arthropathy. L3-L4: Intervertebral disc spacer. No spinal canal or neural foraminal stenosis. Mild facet joint arthropathy and ligamentum flavum hypertrophy. L4-L5: Intervertebral disc spacer. No spinal canal or foraminal stenosis. Mild facet joint arthropathy and ligamentum flavum hypertrophy. L5-S1: No significant disc pathology. No spinal canal or foraminal stenosis. Mild facet joint arthropathy and ligamentum flavum hypertrophy. Spinal Cord and Nerve Roots: The conus medullaris terminates normally at the L1 level without an abnormal signal. Cauda equina and lower thoracic spinal cord structures are unremarkable. No abnormal nerve root signal or morphology was identified. Paraspinal Soft Tissues: No abnormal signal intensity or mass lesion in the paraspinal soft tissues. IMPRESSION: 1. Right paracentral sequestered disc fragment with at L1-L2 measuring approximately 20 x 8.6 x 9.9 mm, resulting in severe spinal canal stenosis and right neural foraminal narrowing, with compression of the right-sided cauda equina/traversing nerve root. 2. Post-surgical changes at L3 and L4 with fixation screws and disc spacers at L3-L4 and L4-L5 levels. 3. Degenerative disc disease with multilevel disc desiccation and Schmorl's nodes. 4. Modic type I endplate changes at T11-T12. 5. Mild lumbar scoliosis with convexity to the left. 6. Multilevel mild facet joint arthropathy and ligamentum flavum hypertrophy, most prominent at L1-L2 and L2-L3 levels. 7. No significant interval changes in the limits of prior visualized lumbar spine in CT abdomen and pelvis, dated 09/23/2024. Electronically signed by Milton Carlos 09-24-2024 01:45 AM
[2024-09-24] MEDS: DEXTROAMPHETAMINE/AMPHETAMINE IR 10 MG TAB PO SCH ×2 (05:33→14:10)
[2024-09-24] MEDS: ACETAMINOPHEN 500 MG TAB PO SCH (07:09)
[2024-09-24 07:52] LABS: Hematocrit (blood only) 39.7 % (37.0-47.0); Hemoglobin 12.9 g/dl (12.0-16.0); Mean Corpuscular Hemoglobin 28.2 pg (25.0-34.0); Mean Corpuscular Hgb Conc 32.5 g/dL (32.0-36.0); Mean Corpuscular Volume 86.9 fL (80.0-100.0); Platelet Count 222 K/uL (130-400); RDW Coefficient of Variation 16.1 % (11.5-14.5); RDW Standard Deviation 51.2 fL (36.4-46.3); Red Blood Count 4.57 M/uL (4.20-5.40); White Blood Count 13.61 K/ul (4.8-10.8)
[2024-09-24 08:06] LABS: Calcium 9.7 mg/dl (8.6-10.3); Creatinine Clr Calc Pharmacy 72.6 ml/min; Potassium 4.4 mmol/L (3.5-5.1)
--- NOTE | 2024-09-24 08:32 | Orthopedic Consultation ---
Date of Service September 24, 2024 Assessment & Plan (1) Right lumbar radiculopathy: Patient is being consulted today due to lumbar spine findings from an abdomen and pelvis CT that was done on 09/23/2024 as well as a follow-up MRI of the lumbar spine that was done on 09/24/2024. There was a disc fragment at the L1/L2 level that was found on imaging. This was further analyzed with the MRI of the lumbar spine. This case was discussed with Dr. Orantes who also independently assessed and examined the patient. She is not showing any signs or symptoms of neurological deficits, therefore no urgent surgical intervention indicated at this time. N.p.o. order may be lifted if this is the reason she is NPO. Dr. Orantes does not feel that the disc fragment is acute. He states that it seems calcified on imaging, therefore it is more of a chronic issue. He would recommend pain control/pain management per hospitalist team, mobilization as well as physical therapy. Patient states that she does want to be placed in a rehab center. It was explained to her that this may be a potential, however this will be decided and discussed with case management and the hospitalist team. She does have some structural issues going on in her lumbar spine, and she may be symptomatic in the L1/L2 area as she is having some groin discomfort, however she does also have positive findings on a hip exam. She does have a right total hip arthroplasty by Dr. Bryant and she also has a lumbar spine fusion by Dr. Lerma. Once again, no surgical intervention indicated for this specific problem at this time. If she would like to follow-up with outpatient spine, she may do so with the surgeon of her choosing. If she would like to follow-up with [facility] that she is a patient of Dr. Lerma, that is perfectly fine. She does state that she has some insurance reasons as to why she cannot see [facility], therefore if she would like to see [facility], that is also fine. Please reach out to orthopedic spine with any other questions or concerns. Patient seen and examined, agree with the above listed statements, the disc herniation at the L1-2 level is clearly ossified on the CT scan and has been present for at least several months if not longer before this admission. Though certainly this could be explaining some of the patient's right leg symptoms, need for emergent surgical invention I do not think is indicated at this time, follow-up in the office after appropriate mobilization and working on ambulation as indicated prior to moving onto any surgical discussions. Patient was in agreement with this plan as she indicated she would prefer to avoid surgery if possible. History of Present Illness Reason for Consultation: Lumbar spine MRI, back pain Requesting Physician: . Attending Physician: Ramonita Quiles MD Jigna is an 84-year-old female who is being consulted today due to MRI findings from imaging that was taken yesterday and this morning. History was a little difficult to obtain from the patient. Per the patient, she is not having any back pain, but does state that she is having some pain on the lateral aspect of the hip as well as the inner groin. She states it is hard to ambulate on this. This is why she had the lumbar spine MRI completed. She does have a history of a lumbar fusion by Dr. Lerma about 10 years ago. Unfortunately, she states that she is unable to follow-up with him due to insurance reasons. She denies any other pain going down the right lower extremity. She denies any numbness or tingling. Denies any issues in the left lower extremity. She does state that her lateral hip pain/lower buttock pain/groin pain began about 3 months ago when she had a right reverse total shoulder arthroplasty. She states that rolling over in bed to get comfortable from the shoulder replacement aggravated her right hip. Other than that, no other questions or concerns today. Allergies Allergy/AdvReac Type Severity Reaction Status Date / Time azithromycin Allergy Unknown throat Verified 09/23/24 20:53 burned, lost weight chocolate flavor Allergy Unknown hx rash Verified 09/23/24 20:53 fluticasone Allergy Unknown chest pain Verified 09/23/24 20:54 (from Advair) Penicillins Allergy Unknown per Verified 09/23/24 20:51 allergy test procaine Allergy Unknown novacaine Verified 09/23/24 20:53 - anaphylaxis, mouth swelling, dyspnea salmeterol Allergy Unknown chest pain Verified 09/23/24 20:54 (from Advair) moxifloxacin AdvReac Unknown N/V Verified 09/23/24 20:54 NSAIDS (Non-Steroidal AdvReac Unknown advised to Verified 09/23/24 20:52 Anti-Inflamma avoid d/t ulcer hx zolpidem AdvReac Unknown sleep Verified 09/23/24 20:52 walking Home Medications Medication Instructions Recorded Confirmed Type psyllium seed (sugar) oral powder 1 tbsp PO DAILY PRN Constipation 03/03/20 09/23/24 History (Metamucil (sugar) oral powder) aspirin 81 mg tablet,delayed 81 mg PO HS #30 tabs 08/18/20 09/23/24 Rx release multivitamin 1 tab PO QAM #30 tabs 09/13/20 09/23/24 Rx Scooter #1 ea 04/03/21 08/27/24 Rx travoprost 0.004 % eye drops 1 drp OPB QPM 05/03/21 09/23/24 History dextroamphetamine-amphetamine 10 10 mg PO .DAILY@2PM 03/07/22 09/23/24 History mg tablet (Adderall) ascorbic acid (vitamin C) 500 mg 500 mg PO QAM 11/12/22 09/23/24 History tablet (Vitamin C) biotin 10 mg tablet 10 mg PO QAM 11/12/22 09/23/24 History guaifenesin 600 mg tablet, 600 mg PO Q6H PRN Congestion 11/12/22 09/23/24 History extended release 12 hr (Mucinex) nebulizer accessories #2 ea 03/31/23 08/27/24 Rx nebulizers #1 ea 03/31/23 08/27/24 Rx cyanocobalamin (vitamin B-12) 2,500 mcg PO QAM 05/06/23 09/23/24 History 2,500 mcg tablet apixaban 5 mg tablet (Eliquis) 5 mg PO BID #60 tabs 01/21/24 09/23/24 Rx buspirone 5 mg tablet 5 mg PO BID Anxiety 02/18/24 09/23/24 History albuterol sulfate 2.5 mg/3 mL 3 mg inhalation TID asthma attacks 02/20/24 09/23/24 History (0.083 %) solution for nebulization albuterol sulfate 90 mcg/actuation 2 puff inhalation Q6H PRN asthma 02/20/24 09/23/24 History aerosol inhaler (Ventolin HFA) loratadine 10 mg tablet 10 mg PO QAM 02/20/24 09/23/24 History pantoprazole 40 mg tablet,delayed 40 mg PO QAM 03/29/24 09/23/24 History release (Protonix) magnesium oxide 400 mg PO HS #90 tabs 05/17/24 09/23/24 Rx pramipexole 0.5 mg tablet 0.5 mg PO HS #90 tabs 05/17/24 09/23/24 Rx brimonidine 0.2 %-timolol 0.5 % 1 drp OPB BID 06/14/24 09/23/24 History eye drops (Combigan) acetaminophen 500 mg tablet 1,000 mg (2 x 500 mg) PO Q8H PRN 06/18/24 09/23/24 Rx (Tylenol Extra Strength) Pain #0 tabs escitalopram oxalate 20 mg tablet 20 mg PO QAM #0 tabs 06/18/24 09/23/24 Rx (Lexapro) trazodone 150 mg tablet 150 mg PO HS #45 tabs 06/18/24 09/23/24 Rx atorvastatin 40 mg tablet (Lipitor) 40 mg PO HS #90 tabs 07/04/24 09/23/24 Rx digoxin 125 mcg (0.125 mg) tablet 125 mcg PO QAM #90 tabs 07/04/24 09/23/24 Rx montelukast 10 mg tablet 10 mg PO HS #90 tabs 07/04/24 09/23/24 Rx (Singulair) oxybutynin chloride 5 mg 5 mg PO QAM #90 tabs 07/04/24 09/23/24 Rx tablet,extended release 24 hr Wheeled Walker #1 ea 07/08/24 08/27/24 Rx Oxygen Home #1 ea 07/27/24 08/27/24 Rx diaper,brief,adult,disposable #6 ea 08/06/24 08/27/24 Rx (Select Disposable Briefs) hydrocortisone 5 mg tablet See Rx Instructions .Route 08/27/24 09/23/24 Rx .COMPLEX #270 tabs gabapentin 100 mg capsule 200 mg (2 x 100 mg) PO BID #120 09/22/24 09/23/24 Rx caps calcium 600 mg (as 1 tab PO BID 09/23/24 09/23/24 History carbonate)-vitamin D3 10 mcg (400 unit) tablet (Calcium 600 + D(3)) cholecalciferol (vitamin D3) 125 125 mcg PO QAM 09/23/24 09/23/24 History mcg (5,000 unit) tablet (Vitamin D3) dextroamphetamine-amphetamine 10 20 mg PO .DAILY@6AM 09/23/24 09/23/24 History mg tablet diltiazem HCl 180 mg capsule,24 360 mg PO QAM 09/23/24 09/23/24 History hr,extended release lamotrigine 150 mg tablet 150 mg PO HS 09/23/24 09/23/24 History trazodone 50 mg tablet 50 mg PO HS 09/23/24 09/23/24 History vitamin E 800 unit capsule 800 unit PO QAM 09/23/24 09/23/24 History zinc gluconate 50 mg tablet 50 mg PO QAM 09/23/24 09/23/24 History Past Med/Surg History Problem List (Updated 09/24/24 @ 08:58 by Marissa Henson PA-C) Right lumbar radiculopathy Urinary tract infection (Acute) Abnormal finding on CT scan (Acute) Pain in right lumbar region of back (Acute) Ambulatory dysfunction (Acute) Chronic right hip pain (Acute) Acute low back pain with radicular symptoms, duration less than 6 weeks Greater trochanteric bursitis of right hip Rotator cuff arthropathy of left shoulder Secondary adrenal insufficiency Anticoagulant long-term use Scapular fracture (06/14/24) Acute fracture at the base of the acromion from a fall. Leg length discrepancy Adrenal insufficiency Hypercalcemia Orthostatic hypotension Nocturnal hypoxia o2 3L HS. Fracture of acromion of scapula (06/14/24) Acute fracture at the base of the acromion from a fall. Atrial fibrillation Ambulatory dysfunction Recurrent falls Contusion of knee, right (Acute) Generalized weakness (Acute) Obstructive lung disease Acromioclavicular joint arthritis Rotator cuff arthropathy of right shoulder Left ventricular systolic dysfunction Mitral regurgitation Aortic regurgitation Prediabetes Nonobstructive atherosclerosis of coronary artery Subacromial bursitis Glenohumeral arthritis SI (sacroiliac) joint dysfunction Osteoarthritis of ankle, left CAD (coronary artery disease) Mild- luminal irregularities only on 2003 cardiac cath Esophageal dysphagia Chronic constipation with overflow incontinence ADHD Stable Chronic obstructive pulmonary disease stable Allergic rhinitis (Chronic) Anxiety disorder (Chronic) follows with psych Benign familial tremor (Chronic) Cervicalgia (Chronic) Controlled substance agreement broken (Chronic) Former smoker (Chronic) Fusion of spine, lumbar region (Chronic) Glaucoma (Chronic) Hyperlipidemia (Chronic) Raynaud's disease (Chronic) Rectocele (Chronic) Restless legs syndrome (Chronic) SNHL (sensorineural hearing loss) (Chronic) Solitary pulmonary nodule (Chronic) Urge incontinence of urine (Chronic) Vitamin D deficiency (Chronic) Hypomagnesemia (Chronic) CKD (chronic kidney disease) stage 3, GFR 30-59 ml/min (Chronic) Depression (Chronic) Anemia (Chronic) Asthma (Chronic) Lumbar stenosis with neurogenic claudication (Chronic) Medical History Pre-diabetes CKD (chronic kidney disease) pt denies Mitral regurgitation Left ventricular systolic dysfunction EF 45-50% on 03/2023 echo; > 55% 12/2023 stress echo CAD (coronary artery disease) mild in 2003 per [place] [facility] records Aortic regurgitation mild to moderate on 03/2023 echo Esophageal dysphagia Asthma COPD (chronic obstructive pulmonary disease) Anxiety Raynauds disease Acid reflux controlled, stable per pt Tremor hands History of gastric ulcer History of sepsis (2022) History of skin cancer removed Difficult intravenous access Rectocele Arthritis of neck mild limitation rom. 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 Rheumatoid arthritis (02/25/13) per pt dx at age with RA. Surgical History Status post reverse total replacement of right shoulder (~03/2024) History of lumbar fusion x2 most recent 2018 History of foot surgery toes on left foot - pt confirms a total of 4 left foot surgeries. History of foot surgery left removal of bone spur S/P foot surgery, left LEFT FOOT LITTLE TOE AMPUTATED 2022. S/P foot surgery, left left ankle/foot reconstruction (2019) History of total hip arthroplasty right hip H/O toe surgery left foot History of total knee replacement bilateral; right TKA: 05/22/17: SAB x1 at L3-L4 + PNB at [facility] S/P hardware removal right ankle S/P laparotomy removed adhesions to relieve bowel strangulation S/P ankle arthrodesis right ankle History of open reduction and internal fixation (ORIF) procedure right ankle H/O elbow surgery bilateral S/P AMANDA (total abdominal hysterectomy) H/O thumb surgery right x2 History of appendectomy History of colonoscopy History of esophagogastroduodenoscopy (EGD) History of surgical removal of skin lesion History of tonsillectomy Family History Family/Other Coronary heart disease Heart disease Cancer Hypertension Brother Prostate cancer Benign familial tremor Father Benign familial tremor Mother Malignant melanoma Aunt Rheumatoid arthritis Other No family history of adverse response to anesthesia Denies family history of Ovarian cancer Myocardial infarction Breast cancer Colorectal cancer Social History Smoking Status: Former smoker Tobacco Type: Cigarettes Age Started Using Tobacco: 19 (intermittently quit throughout the years); Age Quit Using Tobacco: 81; packs per day: 0.1; Cigarettes Per Day: 2; Second Hand Exposure: No; Do You Dip or Chew Tobacco: No; Hx Alcohol Use: Yes Alcohol type: beer Alcohol Intake Frequency: Monthly or Less Alcohol Intake Frequency Comment: rarely Hx Substance Use: No Preferred Language: Spanish Communication Ability: Effective Visual Impairment: No Limitations Hearing Ability: Hard of Hearing De Alcoholizer Required: No Beliefs That Will Affect Care: None marital status: Current Living Situation: Alone Current Living Situation Comment: apartment building 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al status: retired 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 Physical Exam General: Alert and oriented. No acute distress. In regards to her lower extremities, I did perform strength testing on the bilateral lower extremities. She has 5 out of 5 strength in the bilateral lower extremities. She has no dysfunction or deficits noted neurologically. She has very good range of motion and strength of the bilateral lower extremities. I did do a right hip exam. She does have some groin pain with logroll. Does have more lateral pain with FADIR and MARTA testing. She does have tenderness to the lateral right trochanteric bursa. Does also have some tenderness in the right lower buttock area. She is neurovascularly intact in the bilateral lower extremities. Constitutional WD/WN, vitals as above Skin no rashes, warm and dry Psychiatric A+Ox3, euthymic affect Results & Data Results & Data Laboratory Results . Diagnostic Findings CT of the abdomen and pelvis on 09/23/2024: IMPRESSION: 1. L2 intraspinal calcified lesion measuring 8.5x16 mm. Suggest an MRI assessment. (new) MRI of the lumbar spine on 09/24/2024: IMPRESSION: 1. Right paracentral sequestered disc fragment with at L1-L2 measuring approximately 20 x 8.6 x 9.9 mm, resulting in severe spinal canal stenosis and right neural foraminal narrowing, with compression of the right-sided cauda equina/traversing nerve root. 2. Post-surgical changes at L3 and L4 with fixation screws and disc spacers at L3-L4 and L4-L5 levels. 3. Degenerative disc disease with multilevel disc desiccation and Schmorl's nodes. 4. Modic type I endplate changes at T11-T12. 5. Mild lumbar scoliosis with convexity to the left. 6. Multilevel mild facet joint arthropathy and ligamentum flavum hypertrophy, most prominent at L1-L2 and L2-L3 levels. 7. No significant interval changes in the limits of prior visualized lumbar spine in CT abdomen and pelvis, dated 09/23/2024. PG Care Time/CCT Total # of Minutes Spent Total Time Spent with Patient: Total time spent is greater than 50% in coordination of care (as documented) at patient's floor/unit and/or counseling patient: Coding Level of Care Code 53540 IN/OBS CONSULT LVL 4,60M Diagnoses Right lumbar radiculopathy M54.16
[2024-09-24] MEDS: GABAPENTIN 100 MG CAP PO SCH (08:41)
[2024-09-24] MEDS: PANTOprazole 40 MG TAB PO SCH (08:41)
[2024-09-24] MEDS: busPIRone 5 MG TAB PO SCH (08:41)
[2024-09-24] MEDS: dilTIAZem HCL 180 MG CAPCR PO SCH (08:41)
[2024-09-24] MEDS: OXYBUTYNIN CHLORIDE XL 5 MG TABCR PO SCH (08:41)
[2024-09-24] MEDS: ESCITALOPRAM OXALATE 20 MG TAB PO SCH (08:42)
[2024-09-24] MEDS: HYDROCORTISONE 10 MG TAB PO SCH ×2 (08:42→17:12)
[2024-09-24] MEDS: LIDOCAINE 5% 1 PATCH TD SCH (08:43)
[2024-09-24] MEDS: ACETAMINOPHEN 500 MG TAB ONE (08:43)
[2024-09-24] MEDS ORDERED: APIXABAN 5 MG TABLET PO SCH (09:00)
--- NOTE | 2024-09-24 16:07 | Hospitalist Progress Note ---
Date of Service September 24, 2024 Assessment & Plan (1) Acute low back pain with radicular symptoms, duration less than 6 weeks: (2) Ambulatory dysfunction: (3) Secondary adrenal insufficiency: (4) Atrial fibrillation: (5) CAD (coronary artery disease): (6) ADHD: (7) Chronic obstructive pulmonary disease: (8) Hyperlipidemia: Plan 84-year-old female with history of atrial fibrillation, coronary artery disease, COPD/asthma as well as secondary adrenal insufficiency presenting with several weeks of progressive right back pain with radicular symptoms. Patient is unable to walk at home and sustained several falls in the last several weeks. #Acute low back pain with radicular symptomspatient reports pain in the right side of her back with radiation across her anterior thigh and into her groin. CT of the abdomen/pelvis as above incidentally noted L2 intraspinal calcified lesion measuring 8.5 x 16 mm which is new MRI findings reviewed. [facility] consulted. Patient is not showing any symptoms or neurological deficits. Per orthospine no urgent surgical intervention is indicated at this time. [facility] recommended pain control, mobilization PT evaluated the patient and she can return to home. However patient wishes to go to rehab. Patient is on a Lidoderm patch, heat as needed, Not requiring IV pain medications #Patient with elevated ionized calcium on initial labs. Likely due to volume contraction Resolved #Ambulatory dysfunctionsecondary to acute back pain Maintain fall precautions Management as above PT/OT recommends return to home #UTIpatient's urine suggestive of infection with nitrites and 4+ bacteria. Urine culture grew Citrobacter Continue ceftriaxone 2 g IV daily for now Will asked the patient about urinary symptoms tomorrow Possibly asymptomatic bacteriuria #Secondary adrenal insufficiencypatient's blood pressure is elevated at present. No evidence of crisis Continue home hydrocortisone patient takes 15 mg first in the morning then 5 mg 8 hours later #Atrial fibrillationpatient with mildly elevated heart rate at present Pain control as above Continue apixaban 5 mg p.o. twice daily Continue home digoxin 0.125 mg daily Continue diltiazem 360 mg p.o. every morning Continue to monitor #Coronary artery diseasepatient denies chest pain Continue aspirin 81 mg Continue atorvastatin 40 mg p.o. nightly #ADHD/anxiety/mental healthchronic, stable Continue home dextroamphetamine Continue escitalopram 20 mg p.o. every morning Continue Lamictal 150 mg p.o. nightly Continue trazodone 200 mg p.o. nightly Continue BuSpar 5 mg p.o. twice daily Admission and Anticipated Discharge Date Admission Date: September 23, 2024 Subjective Patient feels well. Denies chest pain or shortness of breath. Patient says that she is interested in going to rehab. Review of Systems Review of Systems: All systems reviewed & are unremarkable except as noted in Subjective Physical Exam Physical Exam: General: Awake, conversant Heart: S1, S2/regular rate and rhythm, no murmur rubs or gallops Lungs: Clear to auscultation bilaterally. Normal effort Abdomen: Soft/nontender/nondistended. No hepatosplenomegaly Extremities: No clubbing/cyanosis. No edema Behavior: Appropriate, cooperative Results & Data Results & Data Vital Signs (Past 12 Hours) Vital Signs Temp Pulse Resp BP Pulse Ox O2 Del Method 09/24/24 13:23 36.7 C 98 H 14 144/77 H 96 Room Air 09/24/24 10:35 36.5 C 111 H 14 165/99 H 95 Room Air 09/24/24 08:01 36.5 C 107 H 14 158/81 H 92 Room Air Laboratory Results Abnormal lab results 09/23/24 09/23/24 09/23/24 Range/Units 16:35 16:37 19:26 WBC 14.42 H (4.8-10.8) K/ul MCHC 31.9 L (32.0-36.0) g/dL RDW Std Deviation 52.1 H (36.4-46.3) fL RDW Coeff of Aspen 16.0 H (11.5-14.5) % MPV 9.3 L (9.4-12.4) fL Neut # (Auto) 10.41 H (1.40-6.50) K/uL [place] # (Auto) 1.14 H (0.11-0.59) K/uL POC Chloride 99 L (101-112) mmol/L Carbon Dioxide 36 H (21-32) mmol/L POC BUN 33 H (7-18) mg/dl BUN 33 H (6-23) mg/dl Creatinine 0.55 L (0.6-1.2) mg/dl BUN/Creatinine Ratio 60.0 H (10-20) Glucose 101 H (70-99(Fasting)) mg/dl POC Glucose (other) 101 H (70-99) mg/dl Calcium 10.5 H (8.6-10.3) mg/dl POC Ioniz Calcium Jasvir 1.35 H (1.12-1.32) mmol/l Ionized Calcium (1.12-1.32) mmol/L Urine pH 8.0 H (4.5-7.5) Ur Specific [place] 1.032 H (1.000-1.030) Urine Nitrite Positive A (Negative) Urine Bacteria (Auto) 4+ H (None Seen) 09/24/24 Range/Units 07:30 WBC 13.61 H (4.8-10.8) K/ul MCHC (32.0-36.0) g/dL RDW Std Deviation 51.2 H (36.4-46.3) fL RDW Coeff of Aspen 16.1 H (11.5-14.5) % MPV 9.0 L (9.4-12.4) fL Neut # (Auto) (1.40-6.50) K/uL [place] # (Auto) (0.11-0.59) K/uL POC Chloride (101-112) mmol/L Carbon Dioxide 34 H (21-32) mmol/L POC BUN (7-18) mg/dl BUN 25 H (6-23) mg/dl Creatinine 0.51 L (0.6-1.2) mg/dl BUN/Creatinine Ratio 49.0 H (10-20) Glucose 115 H (70-99(Fasting)) mg/dl POC Glucose (other) (70-99) mg/dl Calcium (8.6-10.3) mg/dl POC Ioniz Calcium Jasvir (1.12-1.32) mmol/l Ionized Calcium 1.35 H (1.12-1.32) mmol/L Urine pH (4.5-7.5) Ur Specific [place] (1.000-1.030) Urine Nitrite (Negative) Urine Bacteria (Auto) (None Seen) Diagnostic Findings Abdomen/Pelvis CT 09/23/24 16:22 EXAM: CT abd pelvis IV con only CLINICAL HISTORY: right hip, lumbar pain TECHNIQUE: CT of the abdomen and pelvis was performed with and without contrast, with the following protocol: axial images with, and reconstructed coronal and sagittal images. 93 ml opti 320 was administered intravenously. One of the following dose reduction techniques was utilized for this exam: Automated exposure control, adjustment of the mA and/or kV according to patient size, and use of iterative reconstruction. DLP: 758.47 mGy-cm, CTDI: 15.37 mGy. COMPARISON: Comparison is made with the prior CT abdomen and pelvis dated 02/18/2024, 07/05/2019. FINDINGS: Chest: Cardiomegaly. Left lower lung base small cyst and focal subpleural air-space opacity, could be atelectasis. Abdomen: Liver: Normal in size, shape, and density. Multiple hypodense lesions with no enhancement, largest 7x11 mm at segment 8. Hepatic vasculature and biliary ducts are unremarkable. Gallbladder and Biliary System: The gallbladder is normal in size and shape. No wall thickening, pericholecystic fluid, or gallstones were identified. The common bile duct is normal in caliber without dilation. Pancreas: The pancreatic head, body, and tail are visualized and appear normal in size and density. No pancreatic masses or calcifications were noted. The pancreatic duct is not dilated. Spleen: Normal in size, shape, and density. Multiple small hypodense lesions Appendix: Not seen. No evidence of appendiceal abscess or perforation. Kidneys and Adrenal Glands: Both kidneys are normal in size, shape, and position. Right simple renal cysts, largest 18x19 mm at upper pole. Cortical thickness is within normal limits. No renal calculi or hydronephrosis.The The right Adrenal gland is unremarkable with no evidence of masses or hyperplasia. Left adrenal gland fat-containing lesion about 12x12 mm. Pelvis: Urinary Bladder: Normal in contour and wall thickness. No intraluminal lesions identified. Uterus: Not seen. Ovaries. 18x16 right ovarian cyst and left ovarian cyst 13x16 mm Vagina: Normal in contour and wall thickness. Peritoneal and Retroperitoneal Structures: No free fluid or abnormal fluid collections were identified within the abdomen or pelvis. Right iliac fossa mesenteric lymphadenitis. Bowel: The visualized bowel loops are normal in caliber and appearance. No evidence of bowel obstruction or wall thickening. Bones and Soft Tissues: Right hip replacement device. Lumbar spondylosis. Diffuse decrease in bone density. Posterior fixation of L3 and L4 with intervertebral disc spacing. L1 over L2 mild retrolisthesis. L2 intraspinal ring calcified oval-shaped lesion 8.5x16 mm Facet arthropathy. L3 and L4 bilateral laminectomy. Widening of the diaphragmatic hiatus tramaine 24 mm. Detached bone fragment at the anterior inferior iliac spine, right side likely previous avulsion. IMPRESSION: 1. L2 intraspinal calcified lesion measuring 8.5x16 mm. Suggest an MRI assessment. (new) 2. Right iliac fossa mesenteric lymphadenitis. (new) 3. Multiple liver and splenic hypodense lesions are likely cysts/ hemangiomas.(unchanged) 4. Right simple renal cysts (BOSNIAK I) (unchanged) 5. Left adrenal gland fat-containing lesion is likely benign (unchanged.) Electronically signed by Milton Carlos 09-23-2024 7:09 PM Lumbar Spine MRI 09/24/24 00:16 EXAM: MR lumbar spine wo/w con CLINICAL HISTORY: Pain, L2 intraspinal calcified lesion 8.5 x 16mm. TECHNIQUE: MRI of the lumbar spine was performed without and with the administration of intravenous contrast (7cc Gadavist). Sequences obtained include sagittal T1-weighted, T2-weighted, STIR (Short Tau Inversion Recovery), and axial T2-weighted sequences. COMPARISON: XR lumbar spine, 11/07/2021. Visualized lumbar spine in CT abdomen and pelvis, dated 09/23/2024. FINDINGS: Vertebral Alignment: Mild levoscoliosis of the lumbar spine. Vertebral Bodies and Intervertebral Discs: Orthopedic fixation screws are present at L3 and L4 levels, limiting evaluation of adjacent structures. Intervertebral disc spacers, noted at L3-L4 and L4-L5. Degenerative endplate changes at T11-T12 with Modic type I signal changes. Multilevel Schmorl's nodes are present. Vertebral body heights are preserved. No acute compression fractures identified. Heterogeneous bone marrow signal pattern, nonspecific. Multilevel disc desiccation noted. [id number] Analysis: T12-L1: No significant disc abnormality. No spinal canal or neural foraminal stenosis. No evidence of ligamentum flavum hypertrophy or facet joint arthropathy. L1-L2: Right paracentral, caudally migrated disc extrusion with intervertebral disc like signal on all sequences and no post-contrast enhancement, consistent with a likely sequestered disc fragment with calcification. Dimensions approximately 20 mm (craniocaudal), 8.6 mm (anteroposterior), and 9.9 mm (transverse). This correlates with a peripheral calcified lesion seen on recent CT imaging. The disc fragment impinges on the right anterolateral aspect of the thecal sac and compresses the cauda equina and traversing right L2 nerve root. Associated with severe central canal stenosis and right-sided lower-level neural foraminal narrowing. Superimposed diffuse disc bulge measuring approximately 3.2 mm. Mild to moderate bilateral neural foraminal narrowing. Mild ligamentum flavum hypertrophy and facet joint arthropathy. L2-L3: Diffuse disc bulge, approximately 3 mm. Mild to moderate central canal stenosis and bilateral neural foraminal narrowing. Mild ligamentum flavum hypertrophy and facet joint arthropathy. L3-L4: Intervertebral disc spacer. No spinal canal or neural foraminal stenosis. Mild facet joint arthropathy and ligamentum flavum hypertrophy. L4-L5: Intervertebral disc spacer. No spinal canal or foraminal stenosis. Mild facet joint arthropathy and ligamentum flavum hypertrophy. L5-S1: No significant disc pathology. No spinal canal or foraminal stenosis. Mild facet joint arthropathy and ligamentum flavum hypertrophy. Spinal Cord and Nerve Roots: The conus medullaris terminates normally at the L1 level without an abnormal signal. Cauda equina and lower thoracic spinal cord structures are unremarkable. No abnormal nerve root signal or morphology was identified. Paraspinal Soft Tissues: No abnormal signal intensity or mass lesion in the paraspinal soft tissues. IMPRESSION: 1. Right paracentral sequestered disc fragment with at L1-L2 measuring approximately 20 x 8.6 x 9.9 mm, resulting in severe spinal canal stenosis and right neural foraminal narrowing, with compression of the right-sided cauda equina/traversing nerve root. 2. Post-surgical changes at L3 and L4 with fixation screws and disc spacers at L3-L4 and L4-L5 levels. 3. Degenerative disc disease with multilevel disc desiccation and Schmorl's nodes. 4. Modic type I endplate changes at T11-T12. 5. Mild lumbar scoliosis with convexity to the left. 6. Multilevel mild facet joint arthropathy and ligamentum flavum hypertrophy, most prominent at L1-L2 and L2-L3 levels. 7. No significant interval changes in the limits of prior visualized lumbar spine in CT abdomen and pelvis, dated 09/23/2024. Electronically signed by Milton Carlos 09-24-2024 01:45 AM PG Care Time/CCT Total # of Minutes Spent Total Time Spent with Patient: Total time spent is greater than 50% in coordination of care (as documented) at patient's floor/unit and/or counseling patient: Coding Level of Care Code 61050 SUB INP/OBS CARE 2/35MIN Diagnoses Acute low back pain with radicular symptoms, duration less than 6 weeks M54.10 Ambulatory dysfunction R26.2 Secondary adrenal insufficiency E27.49 Longstanding persistent atrial fibrillation I48.11 Atrial fibrillation type: longstanding persistent CAD (coronary artery disease) I25.10 ADHD F90.9 Chronic obstructive pulmonary disease J44.9 Hyperlipidemia E78.5 (4) Atrial fibrillation Atrial fibrillation type: longstanding persistent Qualified Code(s): I48.11 - Longstanding persistent atrial fibrillation
[2024-09-24] MEDS: DIGOXIN 0.125 MG TAB PO SCH (16:26)
[2024-09-24] MEDS ORDERED: Nursing to Pharmacy Communication SCH (16:30)
[2024-09-24] MEDS: dilTIAZem HCL 30 MG TAB PO ONE (18:03)
[2024-09-24] MEDS: ASPIRIN 81 MG ECTAB PO SCH (20:39)
[2024-09-24] MEDS: MONTELUKAST SODIUM 10 MG TABLET PO SCH (20:40)
[2024-09-24] MEDS: lamoTRIgine 100 MG TAB PO SCH (20:41)
[2024-09-24] MEDS: traZODone HCL 100 MG TAB PO SCH (20:41)
[2024-09-24] MEDS: ATORVASTATIN 40 MG TAB PO SCH (20:41)
[2024-09-24] MEDS ORDERED: traZODone HCL 50 MG TAB PO SCH (21:00)
[2024-09-24] MEDS: cefTRIAXone SODIUM 2,000 MG/50 ML BAG IV SCH (21:05)
[2024-09-24] MEDS: TRAVOPROST Z 0.004% OPH SOLN 2.5 ML BTL OPB SCH (21:05)
[2024-09-24] MEDS: TIMOLOL MALEATE 0.5% OP SOLN 5 ML BTL OP SCH (21:05)
[2024-09-24] MEDS: PRAMIPEXOLE DIHYDROCHLO 0.5 MG TAB PO SCH (21:08)
[2024-09-24] MEDS: BRIMONIDINE TARTRATE 0.2% 5ML OP SCH (21:11)
--- NOTE | 2024-09-25 03:39 | Electrocardiogram Report ---
Test Reason : Blood Pressure : */* mmHG Vent. Rate : 75 BPM Atrial Rate : * BPM P-R Int : * ms QRS Dur : 92 ms QT Int : 344 ms P-R-T Axes : * 64 -5 degrees QTcB Int : 385 ms Atrial fibrillation Nonspecific ST and T wave abnormality Abnormal ECG When compared with ECG of 21-Aug-2024 16:04, No significant change Confirmed by Julio Cantu ([id number]) on 09/25/2024 3:38:29 AM Referred By: REFERRED SELF Confirmed By: Julio Cantu
[2024-09-25] MEDS: HYDROCORTISONE 10 MG TAB PO SCH ×2 (06:08→13:54)
[2024-09-25] MEDS ORDERED: Nursing to Pharmacy Communication SCH (09:00)
[2024-09-25] MEDS: METOPROLOL TARTRATE 25 MG TAB PO SCH (09:21)
[2024-09-25] MEDS: DIGOXIN 0.125 MG TAB PO SCH (10:00)
[2024-09-25] MEDS: CALCIUM 600MG + VIT D 400 IU TAB PO SCH (10:00)
--- NOTE | 2024-09-25 12:59 | Hospitalist Progress Note ---
Date of Service September 25, 2024 Assessment & Plan (1) Acute low back pain with radicular symptoms, duration less than 6 weeks: (2) Ambulatory dysfunction: (3) Secondary adrenal insufficiency: (4) Atrial fibrillation: (5) CAD (coronary artery disease): (6) ADHD: (7) Chronic obstructive pulmonary disease: (8) Hyperlipidemia: Plan 84-year-old female with history of atrial fibrillation, coronary artery disease, COPD/asthma as well as secondary adrenal insufficiency presenting with several weeks of progressive right back pain with radicular symptoms. Patient is unable to walk at home and sustained several falls in the last several weeks. #Acute low back pain with radicular symptomspatient reports pain in the right side of her back with radiation across her anterior thigh and into her groin. CT of the abdomen/pelvis as above incidentally noted L2 intraspinal calcified lesion measuring 8.5 x 16 mm which is new MRI findings reviewed. [facility] consulted. Patient is not showing any symptoms or neurological deficits. Per orthospine no urgent surgical intervention is indicated at this time. [facility] recommended pain control, mobilization PT evaluated the patient and she can return to home. However patient wishes to go to rehab. Patient is on a Lidoderm patch, heat as needed Not requiring IV pain medications She would like PT to reevaluate her. #Patient with elevated ionized calcium on initial labs. Likely due to volume contraction Resolved #Ambulatory dysfunctionsecondary to acute back pain Maintain fall precautions Management as above PT/OT recommends return to home # Asymptomatic bacteriuriapatient's urine suggestive of infection with nitrites and 4+ bacteria. Urine culture grew Citrobacter Was initially started on ceftriaxone She does not have any urinary symptoms Will discontinue ceftriaxone and monitor clinically #Secondary adrenal insufficiencypatient's blood pressure is elevated at present. No evidence of crisis Continue home hydrocortisone patient takes 15 mg first in the morning then 5 mg 8 hours later #Atrial fibrillationpatient with mildly elevated heart rate at present Pain control as above Continue apixaban 5 mg p.o. twice daily Continue home digoxin 0.125 mg daily Continue diltiazem 360 mg p.o. every morning Added metoprolol 25 mg p.o. twice daily Continue to monitor #Coronary artery diseasepatient denies chest pain Continue aspirin 81 mg Continue atorvastatin 40 mg p.o. nightly #ADHD/anxiety/mental healthchronic, stable Continue home dextroamphetamine Continue escitalopram 20 mg p.o. every morning Continue Lamictal 150 mg p.o. nightly Continue trazodone 200 mg p.o. nightly Continue BuSpar 5 mg p.o. twice daily Admission and Anticipated Discharge Date Admission Date: September 23, 2024 Subjective Patient says she feels the same. No pain while she is at rest. Denies chest pain or shortness of breath. No urinary symptoms. Review of Systems Review of Systems: All systems reviewed & are unremarkable except as noted in Subjective Physical Exam Physical Exam: General: Awake, conversant Heart: S1, S2/regular rate and rhythm, no murmur rubs or gallops Lungs: Clear to auscultation bilaterally. Normal effort Abdomen: Soft/nontender/nondistended. No hepatosplenomegaly Extremities: No clubbing/cyanosis. No edema Behavior: Appropriate, cooperative Results & Data Results & Data Vital Signs (Past 12 Hours) Vital Signs Temp Pulse Pulse Resp BP Pulse Ox O2 Del Method 09/25/24 10:00 89 09/25/24 08:08 36.4 C L 89 20 140/81 95 Room Air PG Care Time/CCT Total # of Minutes Spent Total Time Spent with Patient: Total time spent is greater than 50% in coordination of care (as documented) at patient's floor/unit and/or counseling patient: Coding Level of Care Code 56185 SUB INP/OBS CARE 2/35MIN Diagnoses Acute low back pain with radicular symptoms, duration less than 6 weeks M54.10 Ambulatory dysfunction R26.2 Secondary adrenal insufficiency E27.49 Longstanding persistent atrial fibrillation I48.11 Atrial fibrillation type: longstanding persistent CAD (coronary artery disease) I25.10 ADHD F90.9 Chronic obstructive pulmonary disease J44.9 Hyperlipidemia E78.5 (4) Atrial fibrillation Atrial fibrillation type: longstanding persistent Qualified Code(s): I48.11 - Longstanding persistent atrial fibrillation
[2024-09-25] MEDS: busPIRone 5 MG TAB PO SCH (22:16)
[2024-09-26 07:05] VITALS: BP 149/73; RESP 18; TEMP 97.7; O2SAT 93
[2024-09-26] MEDS: DOCUSATE SODIUM 100 MG CAP PO PRN (09:31)
--- NOTE | 2024-09-26 10:26 | Discharge Summary ---
Date of Service September 26, 2024 Admission HPI Per Admitting Provider Jigna Alves is an 84-year-old female with history of asthma/COPD, hyperlipidemia, coronary artery disease and CKD presenting with several weeks of progressive pain. Patient has pain at her right lower lumbar region with radiation into her buttock, hip and groin. Last week she began to experience pain on the top of her leg radiating anteriorly into her groin to her knee. She denies fever, chills. Denies urinary symptoms or issues with bowel. Denies chest pain, cough, worsening shortness of breath, abdominal pain, nausea, vomiting, diarrhea. Patient reports that she is unable to walk due to bilateral lower extremity weakness. Pain 8/10 in severity. Has been constant.She has been sliding out of bed and has sustained several falls over the last several weeks. Denies head trauma but has fallen onto her backlast was August 30. In the ER patient is afebrile, hemodynamically stable Principal Diagnosis Acute low back pain with radicular symptoms Ambulatory dysfunction Discharge Exam General: Awake, conversant Heart: S1, S2/regular rate and rhythm, no murmur rubs or gallops Lungs: Clear to auscultation bilaterally. Normal effort Abdomen: Soft/nontender/nondistended. No hepatosplenomegaly Extremities: No clubbing/cyanosis. No edema Behavior: Appropriate, cooperative Discharge Data Allergies Allergy/AdvReac Type Severity Reaction Status Date / Time azithromycin Allergy Unknown throat Verified 09/23/24 20:53 burned, lost weight chocolate flavor Allergy Unknown hx rash Verified 09/23/24 20:53 fluticasone Allergy Unknown chest pain Verified 09/23/24 20:54 (from Advair) Penicillins Allergy Unknown per Verified 09/23/24 20:51 allergy test procaine Allergy Unknown novacaine Verified 09/23/24 20:53 - anaphylaxis, mouth swelling, dyspnea salmeterol Allergy Unknown chest pain Verified 09/23/24 20:54 (from Advair) moxifloxacin AdvReac Unknown N/V Verified 09/23/24 20:54 NSAIDS (Non-Steroidal AdvReac Unknown advised to Verified 09/23/24 20:52 Anti-Inflamma avoid d/t ulcer hx zolpidem AdvReac Unknown sleep Verified 09/23/24 20:52 walking Consultations 09/23/24 20:24 ED Decision to Admit Stat 09/24/24 03:29 Consult Orthopedic Spine Surgery Routine Ordered Studies Abdomen/Pelvis CT 09/23/24 16:22 EXAM: CT abd pelvis IV con only CLINICAL HISTORY: right hip, lumbar pain TECHNIQUE: CT of the abdomen and pelvis was performed with and without contrast, with the following protocol: axial images with, and reconstructed coronal and sagittal images. 93 ml opti 320 was administered intravenously. One of the following dose reduction techniques was utilized for this exam: Automated exposure control, adjustment of the mA and/or kV according to patient size, and use of iterative reconstruction. DLP: 758.47 mGy-cm, CTDI: 15.37 mGy. COMPARISON: Comparison is made with the prior CT abdomen and pelvis dated 02/18/2024, 07/05/2019. FINDINGS: Chest: Cardiomegaly. Left lower lung base small cyst and focal subpleural air-space opacity, could be atelectasis. Abdomen: Liver: Normal in size, shape, and density. Multiple hypodense lesions with no enhancement, largest 7x11 mm at segment 8. Hepatic vasculature and biliary ducts are unremarkable. Gallbladder and Biliary System: The gallbladder is normal in size and shape. No wall thickening, pericholecystic fluid, or gallstones were identified. The common bile duct is normal in caliber without dilation. Pancreas: The pancreatic head, body, and tail are visualized and appear normal in size and density. No pancreatic masses or calcifications were noted. The pancreatic duct is not dilated. Spleen: Normal in size, shape, and density. Multiple small hypodense lesions Appendix: Not seen. No evidence of appendiceal abscess or perforation. Kidneys and Adrenal Glands: Both kidneys are normal in size, shape, and position. Right simple renal cysts, largest 18x19 mm at upper pole. Cortical thickness is within normal limits. No renal calculi or hydronephrosis.The The right Adrenal gland is unremarkable with no evidence of masses or hyperplasia. Left adrenal gland fat-containing lesion about 12x12 mm. Pelvis: Urinary Bladder: Normal in contour and wall thickness. No intraluminal lesions identified. Uterus: Not seen. Ovaries. 18x16 right ovarian cyst and left ovarian cyst 13x16 mm Vagina: Normal in contour and wall thickness. Peritoneal and Retroperitoneal Structures: No free fluid or abnormal fluid collections were identified within the abdomen or pelvis. Right iliac fossa mesenteric lymphadenitis. Bowel: The visualized bowel loops are normal in caliber and appearance. No evidence of bowel obstruction or wall thickening. Bones and Soft Tissues: Right hip replacement device. Lumbar spondylosis. Diffuse decrease in bone density. Posterior fixation of L3 and L4 with intervertebral disc spacing. L1 over L2 mild retrolisthesis. L2 intraspinal ring calcified oval-shaped lesion 8.5x16 mm Facet arthropathy. L3 and L4 bilateral laminectomy. Widening of the diaphragmatic hiatus tramaine 24 mm. Detached bone fragment at the anterior inferior iliac spine, right side likely previous avulsion. IMPRESSION: 1. L2 intraspinal calcified lesion measuring 8.5x16 mm. Suggest an MRI assessment. (new) 2. Right iliac fossa mesenteric lymphadenitis. (new) 3. Multiple liver and splenic hypodense lesions are likely cysts/ hemangiomas.(unchanged) 4. Right simple renal cysts (BOSNIAK I) (unchanged) 5. Left adrenal gland fat-containing lesion is likely benign (unchanged.) Electronically signed by Milton Carlos 09-23-2024 7:09 PM Lumbar Spine MRI 09/24/24 00:16 EXAM: MR lumbar spine wo/w con CLINICAL HISTORY: Pain, L2 intraspinal calcified lesion 8.5 x 16mm. TECHNIQUE: MRI of the lumbar spine was performed without and with the administration of intravenous contrast (7cc Gadavist). Sequences obtained include sagittal T1-weighted, T2-weighted, STIR (Short Tau Inversion Recovery), and axial T2-weighted sequences. COMPARISON: XR lumbar spine, 11/07/2021. Visualized lumbar spine in CT abdomen and pelvis, dated 09/23/2024. FINDINGS: Vertebral Alignment: Mild levoscoliosis of the lumbar spine. Vertebral Bodies and Intervertebral Discs: Orthopedic fixation screws are present at L3 and L4 levels, limiting evaluation of adjacent structures. Intervertebral disc spacers, noted at L3-L4 and L4-L5. Degenerative endplate changes at T11-T12 with Modic type I signal changes. Multilevel Schmorl's nodes are present. Vertebral body heights are preserved. No acute compression fractures identified. Heterogeneous bone marrow signal pattern, nonspecific. Multilevel disc desiccation noted. [id number] Analysis: T12-L1: No significant disc abnormality. No spinal canal or neural foraminal stenosis. No evidence of ligamentum flavum hypertrophy or facet joint arthropathy. L1-L2: Right paracentral, caudally migrated disc extrusion with intervertebral disc like signal on all sequences and no post-contrast enhancement, consistent with a likely sequestered disc fragment with calcification. Dimensions approximately 20 mm (craniocaudal), 8.6 mm (anteroposterior), and 9.9 mm (transverse). This correlates with a peripheral calcified lesion seen on recent CT imaging. The disc fragment impinges on the right anterolateral aspect of the thecal sac and compresses the cauda equina and traversing right L2 nerve root. Associated with severe central canal stenosis and right-sided lower-level neural foraminal narrowing. Superimposed diffuse disc bulge measuring approximately 3.2 mm. Mild to moderate bilateral neural foraminal narrowing. Mild ligamentum flavum hypertrophy and facet joint arthropathy. L2-L3: Diffuse disc bulge, approximately 3 mm. Mild to moderate central canal stenosis and bilateral neural foraminal narrowing. Mild ligamentum flavum hypertrophy and facet joint arthropathy. L3-L4: Intervertebral disc spacer. No spinal canal or neural foraminal stenosis. Mild facet joint arthropathy and ligamentum flavum hypertrophy. L4-L5: Intervertebral disc spacer. No spinal canal or foraminal stenosis. Mild facet joint arthropathy and ligamentum flavum hypertrophy. L5-S1: No significant disc pathology. No spinal canal or foraminal stenosis. Mild facet joint arthropathy and ligamentum flavum hypertrophy. Spinal Cord and Nerve Roots: The conus medullaris terminates normally at the L1 level without an abnormal signal. Cauda equina and lower thoracic spinal cord structures are unremarkable. No abnormal nerve root signal or morphology was identified. Paraspinal Soft Tissues: No abnormal signal intensity or mass lesion in the paraspinal soft tissues. IMPRESSION: 1. Right paracentral sequestered disc fragment with at L1-L2 measuring approximately 20 x 8.6 x 9.9 mm, resulting in severe spinal canal stenosis and right neural foraminal narrowing, with compression of the right-sided cauda equina/traversing nerve root. 2. Post-surgical changes at L3 and L4 with fixation screws and disc spacers at L3-L4 and L4-L5 levels. 3. Degenerative disc disease with multilevel disc desiccation and Schmorl's nodes. 4. Modic type I endplate changes at T11-T12. 5. Mild lumbar scoliosis with convexity to the left. 6. Multilevel mild facet joint arthropathy and ligamentum flavum hypertrophy, most prominent at L1-L2 and L2-L3 levels. 7. No significant interval changes in the limits of prior visualized lumbar spine in CT abdomen and pelvis, dated 09/23/2024. Electronically signed by Milton Carlos 09-24-2024 01:45 AM 09/23/24 16:22 CT abd pelvis IV con only Stat 09/24/24 00:16 MR lumbar spine wo/w con Routine Hospital Course (1) Acute low back pain with radicular symptoms, duration less than 6 weeks: (2) Ambulatory dysfunction: (3) Secondary adrenal insufficiency: (4) Atrial fibrillation: (5) CAD (coronary artery disease): (6) ADHD: (7) Chronic obstructive pulmonary disease: (8) Hyperlipidemia: Plan 84-year-old female with history of atrial fibrillation, coronary artery disease, COPD/asthma as well as secondary adrenal insufficiency presenting with several weeks of progressive right back pain with radicular symptoms. Patient is unable to walk at home and sustained several falls in the last several weeks. #Acute low back pain with radicular symptomspatient reports pain in the right side of her back with radiation across her anterior thigh and into her groin. CT of the abdomen/pelvis as above incidentally noted L2 intraspinal calcified lesion measuring 8.5 x 16 mm which is new MRI findings reviewed. Orthospine consulted. Patient is not showing any symptoms or neurological deficits. Per orthospine no urgent surgical intervention is indicated at this time. Orthospine recommended pain control, mobilization PT evaluated the patient and she can return to home. Not requiring IV pain medications Patient is agreeable to going home today. Ordered a 10 tablets of oxycodone #Patient with elevated ionized calcium on initial labs. Likely due to volume contraction Resolved #Ambulatory dysfunctionsecondary to acute back pain Maintain fall precautions Management as above PT/OT recommends return to home # Asymptomatic bacteriuriapatient's urine suggestive of infection with nitrites and 4+ bacteria. Urine culture grew Citrobacter Was initially started on ceftriaxone She does not have any urinary symptoms Discontinued ceftriaxone and the patient continued to do well. #Secondary adrenal insufficiencypatient's blood pressure is elevated at present. No evidence of crisis Continue home hydrocortisone patient takes 15 mg first in the morning then 5 mg 8 hours later #Atrial fibrillationpatient with mildly elevated heart rate at present Pain control as above Continue apixaban 5 mg p.o. twice daily Continue home digoxin 0.125 mg daily Continue diltiazem 360 mg p.o. every morning Added metoprolol 25 mg p.o. twice daily #Coronary artery diseasepatient denies chest pain Continue aspirin 81 mg Continue atorvastatin 40 mg p.o. nightly #ADHD/anxiety/mental healthchronic, stable Continue home dextroamphetamine Continue escitalopram 20 mg p.o. every morning Continue Lamictal 150 mg p.o. nightly Continue trazodone 200 mg p.o. nightly Continue BuSpar 5 mg p.o. twice daily Total Time Total Time Spent Total Time Spent (In Minutes): 35 Discharge Plan Discharge Items Patient Disposition: Home - Home Health Services Reason For Visit: BACK PAIN, AMBULATORY DYSFUNCTION, UTI Discharge Diagnosis: Acute low back pain with radicular symptoms Ambulatory dysfunction Condition on Discharge: Fair Activity: As commented below Activity Comment: Per PT/OT recommendations Non-emergency contact: Primary Care Provider Call non-emergency contact if: you have any medication questions and your symptoms worsen Follow-up/Referrals: Faiza Costa MD [Primary Care Provider] - Hector Orantes MD [Surgeon] - Diet: Heart Healthy Addtl Attending Provider Instructions: Advised to follow-up with PCP in 1 week and ortho-spine in 2 weeks Pending Studies at Discharge: No Stand-Alone Forms: My [facility] Medications and DC Order Prescriptions: New metoprolol tartrate 25 mg Tablet 25 mg PO BID 30 Days Qty: 60 0RF oxycodone 5 mg tablet 5 mg PO Q8H PRN (Reason: pain (scale score 7-10)) Qty: 10 0RF Rx Instructions: Take 1 tablet by mouth every 8 hours as needed for breakthrough severe pain (7-10) Continued aspirin 81 mg tablet,delayed release (DR/EC) 81 mg PO HS Qty: 30 5RF multivitamin Tablet 1 tab PO QAM Qty: 30 5RF (DME) Scooter Misc See Rx Instructions .Route Qty: 1 0RF Rx Instructions: As directed. (DME) nebulizers Misc See Rx Instructions .ROUTE .MEDSUPPLY Qty: 1 0RF Rx Instructions: New nebulizer (DME) nebulizer accessories Kit See Rx Instructions .ROUTE .MEDSUPPLY Qty: 2 0RF Rx Instructions: All tubing, connectors, and accessory pieces pramipexole 0.5 mg tablet 0.5 mg PO HS Qty: 90 1RF magnesium oxide 400 mg magnesium tablet 400 mg PO HS Qty: 90 1RF oxybutynin chloride 5 mg tablet extended release 24hr 5 mg PO QAM Qty: 90 1RF atorvastatin [Lipitor] 40 mg tablet 40 mg PO HS Qty: 90 1RF digoxin 125 mcg (0.125 mg) tablet 125 mcg PO QAM Qty: 90 1RF montelukast [Singulair] 10 mg tablet 10 mg PO HS Qty: 90 1RF (DME) Oxygen Home Liters Per Minute See Rx Instructions .Route Qty: 1 0RF Rx Instructions: 2L/min O2 for use when sleeping. Pt is mouth breather, needs appropriate mask (DME) Select Disposable Briefs Misc See Rx Instructions .Route Qty: 6 3RF Rx Instructions: Pt would like 6 packs of briefs "pull ups" every other month gabapentin 100 mg capsule 200 mg PO BID Qty: 120 1RF travoprost 0.004 % drops 1 drp OPB QPM Patient Comments: both eyes dextroamphetamine-amphetamine [Adderall] 10 mg tablet 10 mg PO .DAILY@2PM Patient Comments: take 20 mg morning and 10 mg in afternoon. Rx Instructions: TAKE 20mg IN AM AND 10mg IN AFTERNOON. Metamucil (sugar) Powder 1 tbsp PO DAILY PRN (Reason: Constipation) hydrocortisone 5 mg tablet See Rx Instructions .ROUTE .COMPLEX Qty: 270 3RF Rx Instructions: Take 15 mg (3 tablets) first thing in the morning; take 5 mg (1 tablet) 8 hours later. Second dose must begin exactly 8 hours after the morning dose. Eliquis 5 mg tablet 5 mg PO BID Qty: 60 11RF Rx Instructions: TAKE 1 TABLET BY MOUTH IN THE MORNING AND AT BEDTIME (DME) Ritu Cade [facility] [place] See Rx Instructions .Route Qty: 1 0RF Rx Instructions: As directed R26.2, R53.1 biotin 10 mg Tablet 10 mg PO QAM ascorbic acid (vitamin C) [Vitamin C] 500 mg Tablet 500 mg PO QAM guaifenesin [Mucinex] 600 mg Tablet Extended Release 12hr 600 mg PO Q6H PRN (Reason: Congestion) cyanocobalamin (vitamin B-12) 2,500 mcg tablet 2,500 mcg PO QAM loratadine 10 mg Tablet 10 mg PO QAM albuterol sulfate [Ventolin HFA] 90 mcg/actuation HFA aerosol inhaler 2 puff Inhalation Q6H PRN (Reason: asthma) albuterol sulfate 2.5 mg /3 mL (0.083 %) Solution For Nebulization 3 mg INHALATION TID Patient Comments: pt reports albuterol nebilizer for asthma attacks/none in yrs. pantoprazole [Protonix] 40 mg tablet,delayed release (DR/EC) 40 mg PO QAM brimonidine-timolol [Combigan] 0.2-0.5 % drops 1 drp OPB BID Patient Comments: both eyes acetaminophen [Tylenol Extra Strength] 500 mg Tablet 1,000 mg PO Q8H MDD 3G PRN (Reason: Pain) Qty: 0 0RF trazodone 150 mg tablet 150 mg PO HS Qty: 45 5RF Rx Instructions: TAKE WITH 50MG = 200MG @HS escitalopram oxalate [Lexapro] 20 mg tablet 20 mg PO QAM Qty: 0 0RF buspirone 5 mg tablet 5 mg PO BID lamotrigine 150 mg tablet 150 mg PO HS dextroamphetamine-amphetamine 10 mg tablet 20 mg PO .DAILY@6AM Rx Instructions: 20MG IN THE AM AND 10MG IN THE AFTERNOON trazodone 50 mg Tablet 50 mg PO HS Rx Instructions: TAKEW WITH 150MG = 200MG@HS diltiazem HCl 180 mg capsule,extended release 24hr 360 mg PO QAM Rx Instructions: TWO CAPSULES IN THE AM calcium carbonate-vitamin D3 [Calcium 600 + D(3)] 600 mg-10 mcg (400 unit) Tablet 1 tab PO BID vitamin E 800 unit Capsule 800 unit PO QAM zinc gluconate 50 mg Tablet 50 mg PO QAM cholecalciferol (vitamin D3) [Vitamin D3] 125 mcg (5,000 unit) Tablet 125 mcg PO QAM Discharge Orders: Discharge Order (Routine); Ordered 09/26/24 Ordered By: Ramonita Quiles Admission Data Admit Date/Time: 09/23/24 21:37 Attending Provider: Ramonita Quiles Admit Provider: Lynne Tapia Primary Care Provider: Faiza Costa Other Providers: Lynne Tapia; Hector Orantes; [facility] Fax Other Interventions: Discharge Summary Assessment (RN) Last Done: 09/26/24 10:35
[2024-09-26 10:36] VITALS: PULSE 82
== END 2024-09-26 14:10 | disposition home health service (06) | DRG 552 ==
LOC: ED 14:51 → 3N 21:37 → SUATTDRO 21:37 → 3N 22:36

== ENCOUNTER 2024-12-27 21:55 | Observation (INO) ==
[2024-12-27 22:29] LABS: Hematocrit (blood only) 40.8 % (37.0-47.0); Hemoglobin 12.8 g/dl (12.0-16.0); Immature Granulocytes # (auto) 0.19 K/uL (0.01-0.20); Immature Granulocytes % (auto) 1.2 %; Mean Corpuscular Hemoglobin 28.6 pg (25.0-34.0); Mean Corpuscular Volume 91.3 fL (80.0-100.0); Platelet Count 257 K/uL (130-400); RDW Standard Deviation 51.6 fL (36.4-46.3); Red Blood Count 4.47 M/uL (4.20-5.40); White Blood Count 15.33 K/ul (4.8-10.8)
--- NOTE | 2024-12-27 22:50 | Emergency Department Note ---
Impression & Plan Acute parotitis, Hypokalemia, Cellulitis of face, Cellulitis of submandibular region ED Provider Note NAME: MARJORIE KNOWLES AGE: 84 SEX: F : 1940 ARRIVES VIA: Ambulance INFORMANT: Patient, EMS ED PROVIDER(S): Leon Walters DO CHIEF COMPLAINT: facial swelling HPI: This is a 84-year-old female with the PMHx of Asthma, CKD, Raynaud's disease, hypertension, COPD/asthma, CAD, esophageal dysphagia, osteoarthritis, MR/AR, CHF, JEB, and paroxysmal atrial fibrillation on chronic anticoagulation presenting to [facility] for further evaluation of facial swelling. Patient is accompanied by EMS who provide additional history. patient reports severe pain and swelling of the left mandible. She states this occurred over the last 24 hours. Patient states she has dealt with this in the past. She states it has been called cellulitis in the past. They deny fever or chills. No cough or congestion. Denies chest pain or palpitations. No shortness of breath. They deny abdominal pain, nausea and vomiting. No urinary complaints. No recent changes in bowel movements. Patient denies recent changes in medications or OTC supplements. Patient offers no other complaints, today. ADDITIONAL HISTORY OBTAINED: Per HPI Chronic Medical/Social Conditions Affecting Care: Per HPI PAST MEDICAL HISTORY: See Below PAST SURGICAL HISTORY: See Below FAMILY HISTORY: See Below SOCIAL HISTORY: See Below HOME MEDICATIONS: See Below ALLERGIES: See Below VITALS: See Below PHYSICAL EXAMINATION: GENERAL: Sitting up in bed, alert, well appearing, well nourished, no distress, non-toxic EYE EXAM: normal conjunctiva. PERRL and EOM's grossly intact. OROPHARYNX: no exudate, no erythema, lips, buccal mucosa, and tongue normal and mucous membranes are moist, no airway compromise, no tongue elevation or deviation NECK: supple, no nuchal rigidity, no adenopathy, There is both supra and infra mandibular swelling over the left mandible. Significant tenderness to palpation in this area. There is erythema and tenderness extending to midline and suprathyroid. No fluctuance or crepitus. LUNGS: Clear to auscultation. Normal chest wall mechanics HEART: no murmurs, regular rate, regular rhythm ABDOMEN: abdomen soft, non-tender, no masses, no rebound or guarding. BACK: Back is symmetrical on inspection and there is no deformity, no midline tenderness, no CVA tenderness. SKIN: no rashes and no bruising UPPER EXTREMITIES: upper extremities are grossly normal. LOWER EXTREMITIES: No pitting edema. NEURO EXAM: Normal sensorium, GCS 15, normal speech, no gross weakness of arms, no gross weakness of legs. MEDICAL DECISION MAKING: Differential diagnoses includes but not limited to facial cellulitis, submandibular gland infection, sialoadenitis, Jamey's angina, malignancy, submandibular cellulitis, abscess, mandibular OM In summary, this is a 84 year old female who presented with facial swelling and pain. Differential as above. Nursing notes and pertinent past medical records reviewed. Vital signs reviewed and the patient is mildly hypertensive but otherwise afebrile and HDS. She does not appear to acute respiratory distress. I do not have concerns for airway involvement at this time. History and presentation revealed sudden onset swelling, redness and pain of the left jaw and neck that has progressed over the course of 24 hours. This is at the setting of multiple comorbidities. The patient has not had a fever. Her vital signs are stable. The patient does not appear septic. On physical examination this appears to be cellulitis over the left mandible that involves the submandibular area and neck. There is no tongue deviation or elevation. No airway involvement. I do not have concerns for Jamey's angina at this time. There is no fluctuance but difficult to exclude abscess. But could also be malignancy but it appears this appearance started acutely. Given appearance with warmth and erythema, I do feel this is likely infectious rather than malignancy. Plan for CT for further characterization. Will collect basic lab work including inflammatory markers. I reviewed the patient's numerous allergies to different antibiotics. I do feel the patient would benefit from skin coverage as well as anaerobic coverage. Will use IV clindamycin at this time. Diagnostics interpreted by me include cardiac monitoring as listed below: -Cardiac Monitoring: An order was placed for continuous cardiac monitoring. The monitor shows a rate of 80-90s with regular rhythm. Patient completed laboratory studies and imaging. Results independently interpreted by me are leukocytosis present. The patient was managed with IV Clindamycin. CRP and ESR are both elevated. Mild hypokalemia. Oral replenishment ordered. No significant elevation in LFTs or kidney dysfunction. Patient CT independently interpreted by me shows swelling and inflammation with fat stranding of the parotid gland that extends into the submandibular gland and the anterior neck. No airway involvement. No significant mass. This is likely parotitis. Could be from sialoadenitis now with superimposed infeciton. I do not see an abscess. Given severity and proximity to the airway and face, she needs to observed in the hospital on abx. Ultimately, the decision was made to admit the patient for severe parotitis with involvement of facial cellulitis extending into the neck and submandibular gland. I discussed the case with the hospitalist service via telephone/Tiger[employer] and they are agreeable to admit the patient to their services. Based on the above, including the patient's age, coexisting illnesses, labs, imaging, and exam findings the decision to treat as an inpatient. I discussed the patient with the hospitalist team who recommended admission to their services. They received the medications, treatments, interventions indicated above and their condition remained stable. I discussed my findings with the patient and their family and they understand and agree with the treatment plan. All patient / family questions were answered to their satisfaction. Consults/Care Managements Discussions: Per [facility] ER treatment provided: See above Procedures:none Critical Care: None The chart was completed utilizing [email or web address] Speech voice recognition software. Grammatical errors, random word insertions, pronoun errors, and incomplete sentences are an occasional consequence of this system due to software limitations, ambient noise, and hardware issues. Any formal questions or concerns about the content, text, or information contained within the body of this dictation should be directly addressed to the physician for clarification. Past Med/Surg History Problem List (Updated 12/28/24 @ 14:52 by Leon Walters DO) Cellulitis of submandibular region (Acute) Cellulitis of face (Acute) Hypokalemia (Acute) Acute parotitis (Acute) Submandibular gland infection Hypokalemia (Acute) A-fib (Acute) Bilateral edema of lower extremity (Acute) Lumbar disc herniation with radiculopathy Calcification of intervertebral cartilage or disc of lumbar region Right lumbar radiculopathy Urinary tract infection (Acute) Abnormal finding on CT scan (Acute) Pain in right lumbar region of back (Acute) Ambulatory dysfunction (Acute) Chronic right hip pain (Acute) Greater trochanteric bursitis of right hip Rotator cuff arthropathy of left shoulder Secondary adrenal insufficiency Anticoagulant long-term use Scapular fracture (06/14/24) Acute fracture at the base of the acromion from a fall. Leg length discrepancy Adrenal insufficiency Hypercalcemia Orthostatic hypotension Nocturnal hypoxia o2 3L HS. Fracture of acromion of scapula (06/14/24) Acute fracture at the base of the acromion from a fall. Atrial fibrillation Ambulatory dysfunction Recurrent falls Contusion of knee, right (Acute) Generalized weakness (Acute) Obstructive lung disease Acromioclavicular joint arthritis Rotator cuff arthropathy of right shoulder Left ventricular systolic dysfunction Mitral regurgitation Aortic regurgitation Prediabetes Nonobstructive atherosclerosis of coronary artery Subacromial bursitis Glenohumeral arthritis SI (sacroiliac) joint dysfunction Osteoarthritis of ankle, left CAD (coronary artery disease) Mild- luminal irregularities only on 2003 cardiac cath Esophageal dysphagia Chronic constipation with overflow incontinence ADHD Stable Chronic obstructive pulmonary disease stable Allergic rhinitis (Chronic) Anxiety disorder (Chronic) follows with psych Benign familial tremor (Chronic) Cervicalgia (Chronic) Controlled substance agreement broken (Chronic) Former smoker (Chronic) Fusion of spine, lumbar region (Chronic) Glaucoma (Chronic) Hyperlipidemia (Chronic) Raynaud's disease (Chronic) Rectocele (Chronic) Restless legs syndrome (Chronic) SNHL (sensorineural hearing loss) (Chronic) Solitary pulmonary nodule (Chronic) Urge incontinence of urine (Chronic) Vitamin D deficiency (Chronic) Hypomagnesemia (Chronic) CKD (chronic kidney disease) stage 3, GFR 30-59 ml/min (Chronic) Depression (Chronic) Anemia (Chronic) Asthma (Chronic) Lumbar stenosis with neurogenic claudication (Chronic) Medical History Pre-diabetes CKD (chronic kidney disease) pt denies Mitral regurgitation Left ventricular systolic dysfunction EF 45-50% on 03/2023 echo; > 55% 12/2023 stress echo CAD (coronary artery disease) mild in 2003 per [place] [facility] records Aortic regurgitation mild to moderate on 03/2023 echo Esophageal dysphagia Asthma COPD (chronic obstructive pulmonary disease) Anxiety Raynauds disease Acid reflux controlled, stable per pt Tremor hands History of gastric ulcer History of sepsis (2022) History of skin cancer removed Difficult intravenous access Rectocele Arthritis of neck mild limitation rom. History of anemia Restless leg syndrome Esophageal stenosis "twist in esophagus" Hearing deficit b/l HERRERA Glaucoma Depression Hyperlipidemia History of transient cerebral ischemia first entered into chart 8/7/19; pt denies hx mini stroke/TIA or stroke. Rheumatoid arthritis (02/25/13) per pt dx at age with RA. Surgical History Status post reverse total replacement of right shoulder (~03/2024) History of lumbar fusion x2 most recent [address] Dr. Lerma History of foot surgery toes on left foot - pt confirms a total of 4 left foot surgeries. History of foot surgery left removal of bone spur S/P foot surgery, left LEFT FOOT LITTLE TOE AMPUTATED 2022. S/P foot surgery, left left ankle/foot reconstruction (2019) History of total hip arthroplasty right hip H/O toe surgery left foot History of total knee replacement bilateral; right TKA: 05/22/17: SAB x1 at L3-L4 + PNB at [facility] S/P hardware removal right ankle S/P laparotomy removed adhesions to relieve bowel strangulation S/P ankle arthrodesis right ankle History of open reduction and internal fixation (ORIF) procedure right ankle H/O elbow surgery bilateral S/P AMANDA (total abdominal hysterectomy) H/O thumb surgery right x2 History of appendectomy History of colonoscopy History of esophagogastroduodenoscopy (EGD) History of surgical removal of skin lesion History of tonsillectomy Family History Family/Other Coronary heart disease Heart disease Cancer Hypertension Brother Prostate cancer Benign familial tremor Father Benign familial tremor Mother Malignant melanoma Aunt Rheumatoid arthritis Other No family history of adverse response to anesthesia Denies family history of Ovarian cancer Myocardial infarction Breast cancer Colorectal cancer Social History Smoking Status: Former smoker Tobacco Type: Cigarettes Age Started Using Tobacco: 19 (intermittently quit throughout the years); Age Quit Using Tobacco: 81; packs per day: 0.1; Cigarettes Per Day: 2; Second Hand Exposure: No; Do You Dip or Chew Tobacco: No; Hx Alcohol Use: Yes Alcohol type: beer Alcohol Intake Frequency: Monthly or Less Alcohol Intake Frequency Comment: rarely Hx Substance Use: No Preferred Language: Lao Communication Ability: [place] Visual Impairment: No Limitations Hearing Ability: Hard of Hearing Supervisor Cloth Winding Required: No Beliefs That Will Affect Care: None marital status: Current Living Situation: Alone Current Living Situation Comment: apartment building 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al status: retired 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: 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[employer], 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 How many Children do You have: 2 Feels Safe at Home: Yes Childhood Exposure to Second-Hand Smoke: No Diet: regular caffeine: Yes during the past year weight has: remained stable Dental Care, Regularly: No Physical Activity Frequency: Daily Seatbelt Use: always Sunscreen Use: Yes (sometimes ) Assistive Devices: Cane, Oxygen - at Night and Walker Allergies Allergies Allergy/AdvReac Type Severity Reaction Status Date / Time pineapple Allergy Severe Anaphylaxis Verified 12/28/24 08:13 procaine Allergy Severe novacaine Verified 12/28/24 08:13 - anaphylaxis, mouth swelling, dyspnea chocolate flavor Allergy Intermediate hx rash Verified 12/28/24 08:13 Penicillins Allergy Unknown per Verified 12/28/24 08:13 allergy test azithromycin AdvReac Intermediate throat Verified 12/28/24 08:13 burned, lost weight fluticasone AdvReac Intermediate chest pain Verified 12/28/24 08:13 (from Advair) moxifloxacin AdvReac Intermediate N/V Verified 12/28/24 08:13 salmeterol AdvReac Intermediate chest pain Verified 12/28/24 08:13 (from Advair) zolpidem AdvReac Intermediate sleep Verified 12/28/24 08:13 walking NSAIDS (Non-Steroidal AdvReac Unknown advised to Verified 12/28/24 08:13 Anti-Inflamma avoid d/t ulcer hx Home Meds Home Medications Medication Instructions Recorded Confirmed psyllium seed (sugar) oral powder 1 tbsp PO QPM PRN Constipation 03/03/20 12/28/24 (Metamucil (sugar) oral powder) travoprost 0.004 % eye drops 1 drp OPB HS 05/03/21 12/28/24 dextroamphetamine-amphetamine 10 10 mg PO DAILY@1400 03/07/22 12/28/24 mg tablet (Adderall) ascorbic acid (vitamin C) 500 mg 500 mg PO QAM 11/12/22 12/28/24 tablet (Vitamin C) biotin 10 mg tablet 10 mg PO QAM 11/12/22 12/28/24 guaifenesin 600 mg tablet, 600 mg PO Q6H PRN Congestion 11/12/22 12/28/24 extended release 12 hr (Mucinex) cyanocobalamin (vitamin B-12) 2,500 mcg PO QAM 05/06/23 12/28/24 2,500 mcg tablet buspirone 5 mg tablet 5 mg PO BID Anxiety 02/18/24 12/28/24 albuterol sulfate 2.5 mg/3 mL 3 mg inhalation Q6 PRN asthma 02/20/24 12/28/24 (0.083 %) solution for nebulization attacks albuterol sulfate 90 mcg/actuation 2 puff inhalation Q4 PRN asthma 02/20/24 12/28/24 aerosol inhaler (Ventolin HFA) loratadine 10 mg tablet 10 mg PO QAM 02/20/24 12/28/24 brimonidine 0.2 %-timolol 0.5 % 1 drp OPB BID 06/14/24 12/28/24 eye drops (Combigan) calcium 600 mg (as 1 tab PO BID 09/23/24 12/28/24 carbonate)-vitamin D3 10 mcg (400 unit) tablet (Calcium 600 + D(3)) cholecalciferol (vitamin D3) 125 125 mcg PO QAM 09/23/24 12/28/24 mcg (5,000 unit) tablet (Vitamin D3) dextroamphetamine-amphetamine 10 20 mg PO DAILY@0600 09/23/24 12/28/24 mg tablet diltiazem HCl 180 mg capsule,24 360 mg PO QAM 09/23/24 12/28/24 hr,extended release lamotrigine 150 mg tablet 150 mg PO HS 09/23/24 12/28/24 trazodone 50 mg tablet 50 mg PO HS 09/23/24 12/28/24 zinc gluconate 50 mg tablet 50 mg PO QAM 09/23/24 12/28/24 acetaminophen 500 mg tablet 1,000 mg PO BID Pain 12/23/24 12/28/24 (Tylenol Extra Strength) hydrocortisone 10 mg tablet 15 mg PO QAM@0600 12/23/24 12/28/24 vitamin E 268 mg (400 unit) capsule 800 mg PO DAILY 12/23/24 12/28/24 hydrocortisone 10 mg tablet 5 mg PO DAILY@1300 12/28/24 12/28/24 Previous Rx's Medication Instructions Recorded aspirin 81 mg tablet,delayed 81 mg PO HS #30 tabs 08/18/20 release multivitamin 1 tab PO QAM #30 tabs 09/13/20 Scooter #1 ea 04/03/21 nebulizer accessories #2 ea 03/31/23 nebulizers #1 ea 03/31/23 apixaban 5 mg tablet (Eliquis) 5 mg PO BID #60 tabs 01/21/24 pramipexole 0.5 mg tablet 0.5 mg PO HS #90 tabs 05/17/24 escitalopram oxalate 20 mg tablet 20 mg PO QAM #0 tabs 06/18/24 (Lexapro) trazodone 150 mg tablet 150 mg PO HS #45 tabs 06/18/24 Wheeled Walker #1 ea 07/08/24 Oxygen Home #1 ea 07/27/24 diaper,brief,adult,disposable #6 ea 08/06/24 (Select Disposable Briefs) gabapentin 400 mg capsule 400 mg PO BID #60 caps 10/08/24 magnesium oxide 400 mg PO QPM #90 tabs 10/22/24 atorvastatin 40 mg tablet (Lipitor) 40 mg PO HS #90 tabs 12/16/24 digoxin 125 mcg (0.125 mg) tablet 125 mcg PO QAM #90 tabs 12/16/24 montelukast 10 mg tablet 10 mg PO HS #90 tabs 12/16/24 (Singulair) oxybutynin chloride 5 mg 5 mg PO QAM #90 tabs 12/16/24 tablet,extended release 24 hr pantoprazole 40 mg tablet,delayed 40 mg PO QAM #90 tabs 12/16/24 release (Protonix) metoprolol tartrate 25 mg tablet 25 mg PO BID #60 tabs 12/24/24 Results & Data (ED) Vital Signs Vital Signs - 24 hr 12/27/24 22:02 12/27/24 22:07 12/27/24 22:48 Temperature 36.8 C Temperature Source Temporal Artery Scan Pulse Rate 92 H 87 Pulse Rate [Left] 88 Pulse Rate from SpO2 Sensor Pulse Rhythm Regular Pulse Strength Normal Respiratory Rate 18 16 Respiratory Effort / Characteristics Non-Labored Spontaneous Respiratory Depth Normal Respiratory Pattern Regular Blood Pressure 149/84 H Blood Pressure [Left Arm] 144/85 H Blood Pressure Mean 105 Blood Pressure Mean [Left Arm] 104 Blood Pressure Position Sitting Pulse Oximetry 95 95 Oxygen Delivery Method Room Air Oxygen Flow Rate Sepsis Recent Fever Within 48 Hours No Sepsis New/Unexplained Change in Mental Status N/A Sepsis Action Taken by Nursing No Action Required 12/27/24 22:57 12/27/24 23:00 12/27/24 23:31 Temperature Temperature Source Pulse Rate 84 Pulse Rate [Left] Pulse Rate from SpO2 Sensor 86 Pulse Rhythm Pulse Strength Respiratory Rate Respiratory Effort / Characteristics Respiratory Depth Respiratory Pattern Blood Pressure 165/105 H 158/73 H Blood Pressure [Left Arm] Blood Pressure Mean 129 112 Blood Pressure Mean [Left Arm] Blood Pressure Position Pulse Oximetry 92 Oxygen Delivery Method Room Air Oxygen Flow Rate Sepsis Recent Fever Within 48 Hours Sepsis New/Unexplained Change in Mental Status Sepsis Action Taken by Nursing 12/27/24 23:33 12/28/24 00:00 12/28/24 00:31 Temperature Temperature Source Pulse Rate 81 85 Pulse Rate [Left] Pulse Rate from SpO2 Sensor 90 87 Pulse Rhythm Pulse Strength Respiratory Rate 22 31 H Respiratory Effort / Characteristics Respiratory Depth Respiratory Pattern Blood Pressure 156/91 H 102/83 Blood Pressure [Left Arm] Blood Pressure Mean 112 91 Blood Pressure Mean [Left Arm] Blood Pressure Position Pulse Oximetry 95 91 Oxygen Delivery Method Room Air Room Air Oxygen Flow Rate Sepsis Recent Fever Within 48 Hours Sepsis New/Unexplained Change in Mental Status Sepsis Action Taken by Nursing 12/28/24 00:45 12/28/24 01:00 12/28/24 01:00 Temperature Temperature Source Pulse Rate 85 Pulse Rate [Left] 92 H 88 Pulse Rate from SpO2 Sensor 99 H Pulse Rhythm Pulse Strength Respiratory Rate 17 17 19 Respiratory Effort / Characteristics Non-Labored Spontaneous Non-Labored Spontaneous Respiratory Depth Normal Normal Respiratory Pattern Regular Regular Blood Pressure 167/113 H Blood Pressure [Left Arm] 167/113 H 154/98 H Blood Pressure Mean 131 Blood Pressure Mean [Left Arm] 131 116 Blood Pressure Position Pulse Oximetry 91 95 97 Oxygen Delivery Method Room Air Nasal Cannula Nasal Cannula Oxygen Flow Rate 3 3 Sepsis Recent Fever Within 48 Hours Sepsis New/Unexplained Change in Mental Status Sepsis Action Taken by Nursing 12/28/24 01:27 12/28/24 01:30 Temperature Temperature Source Pulse Rate 90 Pulse Rate [Left] 94 H Pulse Rate from SpO2 Sensor 102 H Pulse Rhythm Pulse Strength Respiratory Rate 20 17 Respiratory Effort / Characteristics Non-Labored Spontaneous Respiratory Depth Normal Respiratory Pattern Regular Blood Pressure 154/98 H Blood Pressure [Left Arm] 154/98 H Blood Pressure Mean 116 Blood Pressure Mean [Left Arm] 116 Blood Pressure Position Pulse Oximetry 98 96 Oxygen Delivery Method Nasal Cannula Nasal Cannula Oxygen Flow Rate 3 3 Sepsis Recent Fever Within 48 Hours Sepsis New/Unexplained Change in Mental Status Sepsis Action Taken by Nursing Laboratory Data 12/28/24 03:56 12/28/24 03:56 Lab Results 12/27/24 Range/Units 22:14 WBC 15.33 H (4.8-10.8) K/ul RBC 4.47 (4.20-5.40) M/uL Hgb 12.8 (12.0-16.0) g/dl Hct 40.8 (37.0-47.0) % MCV 91.3 (80.0-100.0) fL MCH 28.6 (25.0-34.0) pg MCHC 31.4 L (32.0-36.0) g/dL RDW Std Deviation 51.6 H (36.4-46.3) fL RDW Coeff of Aspen 15.5 H (11.5-14.5) % Plt Count 257 (130-400) K/uL MPV 9.5 (9.4-12.4) fL Immature Gran % (Auto) 1.2 % Neut % (Auto) 74.4 % Lymph % (Auto) 14.0 % [place] % (Auto) 8.7 % Eos % (Auto) 1.3 % Baso % (Auto) 0.4 % Neut # (Auto) 11.39 H (1.40-6.50) K/uL Lymph # (Auto) 2.15 (1.20-3.40) K/uL [place] # (Auto) 1.34 H (0.11-0.59) K/uL Eos # (Auto) 0.20 (0.00-0.50) K/uL Baso # (Auto) 0.06 (0.00-0.20) K/uL Immature Gran # (Auto) 0.19 (0.01-0.20) K/uL ESR 45 H (0-30) mm/hr Sodium 143 (136-145) mmol/L Potassium 3.4 L (3.5-5.1) mmol/L Chloride 101 (98-107) mmol/L Carbon Dioxide 33 H (21-32) mmol/L Anion Gap 9 (3-11) BUN 22 (6-23) mg/dl Creatinine 0.59 L (0.6-1.2) mg/dl Est Cr Clr Drug Dosing Not Reportable eGFR 88.26 BUN/Creatinine Ratio 37.3 H (10-20) Glucose 133 H (70-99(Fasting)) mg/dl Calcium 10.1 (8.6-10.3) mg/dl Magnesium 1.4 L (1.7-2.4) mg/dl Total Bilirubin 0.6 (0.2-1.0) mg/dl AST 16 (13-39) U/L ALT 17 (7-52) U/L Alkaline Phosphatase 100 (34-104) U/L C-Reactive Protein 3.56 H (0-0.5) mg/dl Total Protein 6.9 (6.0-8.3) gm/dl Albumin 4.1 (3.4-5.0) gm/dl Globulin 2.8 (2.5-4.0) gm/dl Albumin/Globulin Ratio 1.5 (0.9-2) Administered Medications Acetaminophen (Acetaminophen 500 Mg Tab) 1,000 mg PO BID@0600,1400 [facility] Stop: 01/27/25 05:59 Last Admin: 12/28/24 13:35 Dose: 1,000 mg Documented By: Admin: 12/28/24 06:19 Dose: 1,000 mg Documented By: FREDI Amphetamine/Dextroamphetamine (Dextroamphetamine/Amphetamine Ir 20 Mg Tab) 20 mg PO DAILY@0600 [facility] Stop: 01/11/25 05:59 Last Admin: 12/28/24 06:20 Dose: 20 mg Documented By: FREDI Amphetamine/Dextroamphetamine (Dextroamphetamine/Amphetamine Ir 10 Mg Tab) 10 mg PO DAILY@1400 [facility] Stop: 01/11/25 13:59 Last Admin: 12/28/24 13:34 Dose: 10 mg Documented By: BECKY Apixaban (Apixaban 5 Mg Tablet) 5 mg PO BID [facility] Stop: 01/27/25 08:59 Last Admin: 12/28/24 08:39 Dose: 5 mg Documented By: EMILY Ascorbic Acid (Ascorbic Acid 500 Mg Tab) 500 mg PO QAM [facility] Stop: 01/27/25 08:59 Last Admin: 12/28/24 08:39 Dose: 500 mg Documented By: EMILY Brimonidine Tartrate (Brimonidine Tartrate 0.2% 5ml) 1 drops OP BID [facility] Stop: 01/27/25 08:59 Last Admin: 12/28/24 08:38 Dose: 1 drops Documented By: EMILY Calcium/Vitamin D (Calcium 600mg + Vit D 400 Iu Tab) 1 tab PO BID [facility] Stop: 01/27/25 08:59 Last Admin: 12/28/24 08:39 Dose: 1 tab Documented By: EMILY Cyanocobalamin (Cyanocobalamin (B-12) 2,500 Mcg Tablet) 2,500 mcg PO QAM [facility] Stop: 01/27/25 08:59 Last Admin: 12/28/24 08:39 Dose: 2,500 mcg Documented By: EMILY Diltiazem HCl (Diltiazem Hcl 180 Mg Capcr) 360 mg PO QAM [facility] Stop: 01/27/25 08:59 Last Admin: 12/28/24 08:38 Dose: 360 mg Documented By: EMILY Escitalopram Oxalate (Escitalopram Oxalate 20 Mg Tab) 20 mg PO QAM [facility] Stop: 01/27/25 08:59 Last Admin: 12/28/24 08:39 Dose: 20 mg Documented By: EMILY Gabapentin (Gabapentin 400 Mg Cap) 400 mg PO BID [facility] Stop: 01/27/25 08:59 Last Admin: 12/28/24 08:39 Dose: 400 mg Documented By: EMILY Hydrocortisone (Hydrocortisone 10 Mg Tab) 30 mg PO DAILY@0600 [facility] Stop: 01/27/25 05:59 Last Admin: 12/28/24 06:19 Dose: 30 mg Documented By: FREDI Hydrocortisone (Hydrocortisone 10 Mg Tab) 10 mg PO DAILY@1400 [facility] Stop: 01/27/25 13:59 Last Admin: 12/28/24 13:40 Dose: 10 mg Documented By: BECKY Clindamycin Phosphate (Cleocin/D5w) 900 mg in 50 mls @ 100 mls/hr IV Q8H [facility] Stop: 01/07/25 01:52 Last Infusion: 12/28/24 08:54 Dose: Infused Documented By: Admin: 12/28/24 07:54 Dose: 100 mls/hr Documented By: EMILY Loratadine (Loratadine 10 Mg Tab) 10 mg PO QAM [facility] Stop: 01/27/25 08:59 Last Admin: 12/28/24 08:39 Dose: 10 mg Documented By: EMILY Metoprolol Tartrate (Metoprolol Tartrate 25 Mg Tab) 25 mg PO BID KEESHA Stop: 01/27/25 08:59 Last Admin: 12/28/24 08:39 Dose: 25 mg Documented By: EMILY Multivitamins (Multivitamin Tab) 1 tab PO QAM KEESHA Stop: 01/27/25 08:59 Last Admin: 12/28/24 08:39 Dose: 1 tab Documented By: EMILY Oxybutynin Chloride (Oxybutynin Chloride Xl 5 Mg Tabcr) [facility] Stop: 01/27/25 08:59 Last Admin: 12/28/24 08:39 Dose: 5 mg Documented By: EMILY Pantoprazole Sodium (Pantoprazole 40 Mg Tab) 40 mg PO QAM [facility] Stop: 01/27/25 08:59 Last Admin: 12/28/24 08:39 Dose: 40 mg Documented By: EMILY Timolol Maleate (Timolol Maleate 0.5% Op Soln 5 Ml Btl) 1 drops OP BID KEESHA Stop: 01/27/25 08:59 Last Admin: 12/28/24 08:38 Dose: 1 drops Documented By: EMILY Vitamin D (Cholecalciferol 125 Mcg (5,000 Units) Tab) 125 mcg PO QAM [facility] Stop: 01/27/25 08:59 Last Admin: 12/28/24 08:40 Dose: 125 mcg Documented By: EMILY Vitamin E (Tocopheryl, Dl-Alpha 400 Units 180 Mg Cap) 180 mg PO DAILY [facility] Stop: 01/27/25 08:59 Last Admin: 12/28/24 08:39 Dose: 180 mg Documented By: EMILY Zinc Sulfate (Zinc Sulfate 220 Mg Capsule) [facility] [place] Stop: 01/27/25 08:59 Last Admin: 12/28/24 08:39 Dose: 220 mg Documented By: EMILY Discontinued Medications Apixaban (Apixaban 5 Mg Tablet) 5 mg PO ONE ONE Stop: 12/28/24 01:08 Last Admin: 12/28/24 02:13 Dose: 5 mg Documented By: FREDI Atorvastatin Calcium (Atorvastatin 40 Mg Tab) 40 mg PO NOW STA Stop: 12/28/24 01:08 Last Admin: 12/28/24 02:12 Dose: 40 mg Documented By: FREDI Buspirone HCl (Buspirone 5 Mg Tab) 5 mg PO ONE ONE Stop: 12/28/24 01:08 Last Admin: 12/28/24 02:12 Dose: 5 mg Documented By: FREDI Gabapentin (Gabapentin 400 Mg Cap) 400 mg PO NOW STA Stop: 12/28/24 01:19 Last Admin: 12/28/24 02:13 Dose: 400 mg Documented By: FREDI Clindamycin Phosphate (Cleocin/D5w) 600 mg in 50 mls @ 100 mls/hr IV NOW ONE Stop: 12/27/24 23:19 Last Infusion: 12/28/24 00:24 Dose: Infused Documented By: Admin: 12/27/24 23:50 Dose: 100 mls/hr Documented By: SYD Magnesium Sulfate/Dextrose (Magnesium Sulfate / D5w) 1 gm in 100 mls @ 50 mls/hr IV Q2H KEESHA Stop: 12/28/24 07:14 Last Infusion: 12/28/24 07:27 Dose: Infused Documented By: Admin: 12/28/24 05:37 Dose: 50 mls/hr Documented By: Infusion: 12/28/24 05:28 Dose: Infused Documented By: Admin: 12/28/24 03:28 Dose: 50 mls/hr Documented By: FREDI Ioversol (Optiray 320 100ml) 100 ml IV ONCE ONE Stop: 12/27/24 23:07 Last Admin: 12/27/24 23:06 Dose: 93 ml Documented By: MICHELLE Lamotrigine (Lamotrigine 25 Mg Tab) 50 mg PO NOW STA; Protocol Stop: 12/28/24 01:08 Last Admin: 12/28/24 02:17 Dose: 50 mg Documented By: FREDI Lamotrigine (Lamotrigine 100 Mg Tab) 100 mg PO NOW STA Stop: 12/28/24 01:22 Last Admin: 12/28/24 02:16 Dose: 100 mg Documented By: FREDI Magnesium Oxide (Magnesium Oxide 400 Mg Tab) 400 mg PO NOW STA Stop: 12/28/24 01:08 Last Admin: 12/28/24 02:12 Dose: 400 mg Documented By: FREDI Metoprolol Tartrate (Metoprolol Tartrate 25 Mg Tab) 25 mg PO NOW STA Stop: 12/28/24 01:08 Last Admin: 12/28/24 02:14 Dose: 25 mg Documented By: FREDI Miscellaneous (Patient's Height &/Or Weight Needed) 1 each N/A NOW STA Stop: 12/28/24 03:11 Last Admin: 12/28/24 03:28 Dose: 1 each Documented By: FREDI Montelukast Sodium (Montelukast Sodium 10 Mg Tablet) 10 mg PO NOW ONE Stop: 12/28/24 01:08 Last Admin: 12/28/24 02:14 Dose: 10 mg Documented By: FREDI Potassium Chloride (Potassium Chloride Crtab 20 Meq Tabcr) 40 meq PO NOW STA Stop: 12/27/24 23:15 Last Admin: 12/27/24 23:22 Dose: 40 meq Documented By: SYD Pramipexole Dihydrochloride (Pramipexole Dihydrochlo 0.5 Mg Tab) 0.5 mg PO NOW STA Stop: 12/28/24 01:24 Last Admin: 12/28/24 02:12 Dose: 0.5 mg Documented By: FREDI Tramadol HCl (Tramadol Hcl 50 Mg Tablet) 25 mg PO NOW STA Stop: 12/27/24 22:12 Last Admin: 12/27/24 22:15 Dose: 25 mg Documented By: ERIKA Trazodone HCl (Trazodone Hcl 100 Mg Tab) 200 mg PO NOW ONE Stop: 12/28/24 01:08 Last Admin: 12/28/24 02:13 Dose: 200 mg Documented By: FREDI Imaging Data Radiologist's Impression: Soft Tissue Neck CT 12/27/24 22:11 Exam(s): CT NECK SOFT TISSUE With Contrast IV Amt: 93 ML OPTIRAY 320 EXAM: CT Neck With Intravenous Contrast CLINICAL HISTORY: L submand swelling, TTP, erythema. TECHNIQUE: Axial computed tomography images of the neck with intravenous contrast. CTDI is 13.52 mGy and DLP is 389.77 mGy-cm. Automated exposure control was utilized for the study. A dose lowering technique was utilized adhering to the principles of ALARA. CONTRAST: Patient received 93 ML OPTIRAY 320 of IV contrast COMPARISON: No relevant prior studies available. FINDINGS: Limitations: There is motion artifact, which degrades image quality on multiple image slices. Oral cavity: There is no evidence of extension of inflammatory changes into the floor of the mouth to suggest Jamey's angina. Oropharynx: Unremarkable. No significant tonsillar enlargement. No peritonsillar abscess. Hypopharynx: Unremarkable. Larynx: Unremarkable. Normal epiglottis. Trachea: Unremarkable. Retropharyngeal space: Unremarkable. Submandibular/parotid glands: No parotid duct dilation or sialolith noted. The left submandibular gland is also slightly asymmetrically enlarged and somewhat hyperdense with the fat stranding extending to the submandibular region. Thyroid: Unremarkable. No enlarged or calcified nodules. Bones/joints: Multilevel degenerative changes throughout the cervical spine. Degenerative fusion of the several facet joints. No acute osseous abnormality. Soft tissues: The left parotid gland is enlarged with asymmetric ill- defined hyperenhancement and surrounding subcutaneous fat stranding with overlying dermal thickening. Vasculature: Atherosclerotic changes of the carotid bifurcations and proximal internal carotid arteries. No significant abnormality. Extensive atherosclerotic calcification of the aortic arch. No dissection. Lymph nodes: Presumably reactive left level two cervical chain lymph nodes, subcentimeter in size. Lung apices: Minimal apical capping noted bilaterally. The lungs are otherwise unremarkable. IMPRESSION: 1. The left parotid gland is enlarged with asymmetric ill-defined hyperenhancement and surrounding subcutaneous fat stranding with overlying dermal thickening. The primary consideration is parotitis. 2. The left submandibular gland is also slightly asymmetrically enlarged and somewhat hyperdense with the fat stranding extending to the submandibular region. Coexisting left submandibular inflammation/infection or reactive edema are the primary considerations. Electronically signed by: Damian Moura MD 12/28/24 00:05 AM Discharge Plan Visit Data Chief Complaint: Facial Injury/Pain Stated Complaint: left jaw swelling; hx: jaw cellulitis ED Provider: Leon Walters Discharge Problem: Acute parotitis, Hypokalemia, Cellulitis of face, Cellulitis of submandibular region Patient Disposition: Admitted As Inpatient Condition: Fair Discharge Instructions Interventions: ED Discharge Assessment Last Done: 12/28/24 01:53
[2024-12-27 22:52] LABS: Alanine Aminotransferase 17 U/L (7-52); Albumin Globulin Ratio 1.5 (0.9-2); Alkaline Phosphatase 100 U/L (34-104); Anion Gap 9 (3-11); Bilirubin,Total 0.6 mg/dl (0.2-1.0); Blood Urea Nitrogen 22 mg/dl (6-23); Calcium 10.1 mg/dl (8.6-10.3); Carbon Dioxide 33 mmol/L (21-32); Chloride 101 mmol/L (98-107); Globulin 2.8 gm/dl (2.5-4.0); Glucose 133 mg/dl (70-99(Fasting)); Potassium 3.4 mmol/L (3.5-5.1); Sodium 143 mmol/L (136-145); Total Protein 6.9 gm/dl (6.0-8.3)
[2024-12-27] MEDS: OPTIRAY 320 100ml IV ONE (23:06)
[2024-12-27] MEDS: POTASSIUM CHLORIDE CRTAB 20 MEQ TABCR PO STA (23:22)
[2024-12-27] MEDS: CLINDAMYCIN/D5W 600 MG/50 ML BAG IV ONE (23:50)
--- NOTE | 2024-12-28 00:06 | CT Scan Report ---
Exam(s): CT NECK SOFT TISSUE With Contrast IV Amt: 93 ML OPTIRAY 320 EXAM: CT Neck With Intravenous Contrast CLINICAL HISTORY: L submand swelling, TTP, erythema. TECHNIQUE: Axial computed tomography images of the neck with intravenous contrast. CTDI is 13.52 mGy and DLP is 389.77 mGy-cm. Automated exposure control was utilized for the study. A dose lowering technique was utilized adhering to the principles of ALARA. CONTRAST: Patient received 93 ML OPTIRAY 320 of IV contrast COMPARISON: No relevant prior studies available. FINDINGS: Limitations: There is motion artifact, which degrades image quality on multiple image slices. Oral cavity: There is no evidence of extension of inflammatory changes into the floor of the mouth to suggest Jamey's angina. Oropharynx: Unremarkable. No significant tonsillar enlargement. No peritonsillar abscess. Hypopharynx: Unremarkable. Larynx: Unremarkable. Normal epiglottis. Trachea: Unremarkable. Retropharyngeal space: Unremarkable. Submandibular/parotid glands: No parotid duct dilation or sialolith noted. The left submandibular gland is also slightly asymmetrically enlarged and somewhat hyperdense with the fat stranding extending to the submandibular region. Thyroid: Unremarkable. No enlarged or calcified nodules. Bones/joints: Multilevel degenerative changes throughout the cervical spine. Degenerative fusion of the several facet joints. No acute osseous abnormality. Soft tissues: The left parotid gland is enlarged with asymmetric ill- defined hyperenhancement and surrounding subcutaneous fat stranding with overlying dermal thickening. Vasculature: Atherosclerotic changes of the carotid bifurcations and proximal internal carotid arteries. No significant abnormality. Extensive atherosclerotic calcification of the aortic arch. No dissection. Lymph nodes: Presumably reactive left level two cervical chain lymph nodes, subcentimeter in size. Lung apices: Minimal apical capping noted bilaterally. The lungs are otherwise unremarkable. IMPRESSION: 1. The left parotid gland is enlarged with asymmetric ill-defined hyperenhancement and surrounding subcutaneous fat stranding with overlying dermal thickening. The primary consideration is parotitis. 2. The left submandibular gland is also slightly asymmetrically enlarged and somewhat hyperdense with the fat stranding extending to the submandibular region. Coexisting left submandibular inflammation/infection or reactive edema are the primary considerations. Electronically signed by: Damian Moura MD 12/28/24 00:05 AM
[2024-12-28 00:40] LABS: Magnesium 1.4 mg/dl (1.7-2.4)
--- NOTE | 2024-12-28 01:36 | History & Physical Report ---
Date of Service December 28, 2024 Assessment & Plan (1) Acute parotitis: (2) Submandibular gland infection: (3) Hypomagnesemia: (4) A-fib: (5) Secondary adrenal insufficiency: Plan The patient is a 84-year-old female with a past medical history including atrial fibrillation, lower extremity edema, lumbar radiculopathy, ambulatory dysfunction, right hip osteoarthritis and pain, long-term anticoagulant use, secondary adrenal insufficiency, nocturnal hypoxia requiring 2 L nasal cannula oxygen, COPD, aortic and mitral regurgitation, CAD, esophageal dysphagia, ADHD, benign familial tremor, Raynaud's disease, CKD stage III, depression, and asthma. She presents to the emergency department with 24 hours of worsening left-sided facial pain and swelling. CT scan of soft tissues of neck is consistent with a left parotitis, and left submandibular infection. From the ED she received tramadol 25 mg p.o., clindamycin 600 mg IV, and potassium chloride 40 mEq p.o. She was then referred for [facility] Left parotitis/left submandibular infection- Multiple antibiotic allergies including to fluoroquinolones, penicillins, and azithromycin Received clindamycin 600 mg IV in the ED Admit on clindamycin 900 mg IV every 8 hours Continue biotin Atrial fibrillation/hypertension- Continue apixaban, metoprolol tartrate, magnesium oxide, digoxin, diltiazem, aspirin Hypomagnesemia/hypokalemia Magnesium 1.4 on admission, give magnesium sulfate 2 g IV Potassium 3.4 on admission Given 40 mill equivalents p.o. by the ED Repeat laboratories in the a.m. Secondary adrenal insufficiency- Patient reports she takes hydrocortisone 30 mg at 0600, and 10 mg at 1400 Mood disorder/ADHD- Continue buspirone, trazodone, lamotrigine, gabapentin, pramipexole, dextroamphetamine-amphetamine GERD- Continue pantoprazole Hyperlipidemia- Continue atorvastatin Bladder spasm- Continue oxybutynin chloride Glaucoma- Continue routine eyedrops History of Present Illness Chief Complaint: The patient presents to the emergency department with complaint of left-sided facial swelling and pain that began about 24 hours ago. She lives at [facility], and called EMS, who brought her to the emergency department for assessment. She reports that when this occurred in the past, it was called cellulitis, and treated with antibiotics. She does report an ongoing issue with dry mouth. She does have a history of significant arthritis, but has not had any recent flare. She denies any recent travels or sick exposures. Primary Care Provider: Faiza Costa MD The patient is a 84-year-old female with a past medical history including atrial fibrillation, lower extremity edema, lumbar radiculopathy, ambulatory dysfunction, right hip osteoarthritis and pain, long-term anticoagulant use, secondary adrenal insufficiency, nocturnal hypoxia requiring 2 L nasal cannula oxygen, COPD, aortic and mitral regurgitation, CAD, esophageal dysphagia, ADHD, benign familial tremor, Raynaud's disease, CKD stage III, depression, and asthma. She presents to the emergency department with 24 hours of worsening left-sided facial pain and swelling. CT scan of soft tissues of neck is consistent with a left parotitis, and left submandibular infection. From the ED she received tramadol 25 mg p.o., clindamycin 600 mg IV, and potassium chloride 40 mEq p.o. She was then referred for evaluation for [facility] Allergies Allergy/AdvReac Type Severity Reaction Status Date / Time pineapple Allergy Severe Anaphylaxis Verified 12/23/24 18:35 procaine Allergy Severe novacaine Verified 12/23/24 18:35 - anaphylaxis, mouth swelling, dyspnea chocolate flavor Allergy Intermediate hx rash Verified 12/23/24 18:35 Penicillins Allergy Unknown per Verified 12/23/24 18:35 allergy test azithromycin AdvReac Intermediate throat Verified 12/23/24 18:35 burned, lost weight fluticasone AdvReac Intermediate chest pain Verified 12/23/24 18:35 (from Advair) moxifloxacin AdvReac Intermediate N/V Verified 12/23/24 18:35 salmeterol AdvReac Intermediate chest pain Verified 12/23/24 18:35 (from Advair) zolpidem AdvReac Intermediate sleep Verified 12/23/24 18:35 walking NSAIDS (Non-Steroidal AdvReac Unknown advised to Verified 12/23/24 18:35 Anti-Inflamma avoid d/t ulcer hx Home Medications Medication Instructions Recorded Confirmed Type psyllium seed (sugar) oral powder 1 tbsp PO QPM PRN Constipation 03/03/20 12/23/24 History (Metamucil (sugar) oral powder) aspirin 81 mg tablet,delayed 81 mg PO HS #30 tabs 08/18/20 12/23/24 Rx release multivitamin 1 tab PO QAM #30 tabs 09/13/20 12/23/24 Rx Scooter #1 ea 04/03/21 11/16/24 Rx travoprost 0.004 % eye drops 1 drp OPB QPM 05/03/21 12/23/24 History dextroamphetamine-amphetamine 10 10 mg PO .DAILY@1400 03/07/22 12/23/24 History mg tablet (Adderall) ascorbic acid (vitamin C) 500 mg 500 mg PO QAM 11/12/22 12/23/24 History tablet (Vitamin C) biotin 10 mg tablet 10 mg PO QAM 11/12/22 12/23/24 History guaifenesin 600 mg tablet, 600 mg PO Q6H PRN Congestion 11/12/22 12/23/24 History extended release 12 hr (Mucinex) nebulizer accessories #2 ea 03/31/23 11/16/24 Rx nebulizers #1 ea 03/31/23 11/16/24 Rx cyanocobalamin (vitamin B-12) 2,500 mcg PO QAM 05/06/23 12/23/24 History 2,500 mcg tablet apixaban 5 mg tablet (Eliquis) 5 mg PO BID #60 tabs 01/21/24 12/23/24 Rx buspirone 5 mg tablet 5 mg PO QPM Anxiety 02/18/24 12/23/24 History albuterol sulfate 2.5 mg/3 mL 3 mg inhalation Q6 PRN asthma 02/20/24 12/23/24 History (0.083 %) solution for nebulization attacks albuterol sulfate 90 mcg/actuation 2 puff inhalation Q4 PRN asthma 02/20/24 12/23/24 History aerosol inhaler (Ventolin HFA) loratadine 10 mg tablet 10 mg PO QAM 02/20/24 12/23/24 History pramipexole 0.5 mg tablet 0.5 mg PO HS #90 tabs 05/17/24 12/23/24 Rx brimonidine 0.2 %-timolol 0.5 % 1 drp OPB BID 06/14/24 12/23/24 History eye drops (Combigan) escitalopram oxalate 20 mg tablet 20 mg PO QAM #0 tabs 06/18/24 12/23/24 Rx (Lexapro) trazodone 150 mg tablet 150 mg PO HS #45 tabs 06/18/24 12/23/24 Rx Wheeled Walker #1 ea 07/08/24 11/16/24 Rx Oxygen Home #1 ea 07/27/24 11/16/24 Rx diaper,brief,adult,disposable #6 ea 08/06/24 11/16/24 Rx (Select Disposable Briefs) calcium 600 mg (as 1 tab PO BID 09/23/24 12/23/24 History carbonate)-vitamin D3 10 mcg (400 unit) tablet (Calcium 600 + D(3)) cholecalciferol (vitamin D3) 125 125 mcg PO QAM 09/23/24 12/23/24 History mcg (5,000 unit) tablet (Vitamin D3) dextroamphetamine-amphetamine 10 20 mg PO .DAILY@6AM 09/23/24 12/23/24 History mg tablet diltiazem HCl 180 mg capsule,24 360 mg PO QAM 09/23/24 12/23/24 History hr,extended release lamotrigine 150 mg tablet 150 mg PO HS 09/23/24 12/23/24 History trazodone 50 mg tablet 50 mg PO HS 09/23/24 12/23/24 History zinc gluconate 50 mg tablet 50 mg PO QAM 09/23/24 12/23/24 History gabapentin 400 mg capsule 400 mg PO BID #60 caps 10/08/24 12/23/24 Rx magnesium oxide 400 mg PO QPM #90 tabs 10/22/24 12/23/24 Rx atorvastatin 40 mg tablet (Lipitor) 40 mg PO HS #90 tabs 12/16/24 12/23/24 Rx digoxin 125 mcg (0.125 mg) tablet 125 mcg PO QAM #90 tabs 12/16/24 12/23/24 Rx montelukast 10 mg tablet 10 mg PO HS #90 tabs 12/16/24 12/23/24 Rx (Singulair) oxybutynin chloride 5 mg 5 mg PO QAM #90 tabs 12/16/24 12/23/24 Rx tablet,extended release 24 hr pantoprazole 40 mg tablet,delayed 40 mg PO QAM #90 tabs 12/16/24 12/23/24 Rx release (Protonix) acetaminophen 500 mg tablet 1,000 mg PO BID Pain 12/23/24 12/23/24 History (Tylenol Extra Strength) hydrocortisone 10 mg tablet 15 mg PO .[id number] 12/23/24 12/23/24 History prednisone 10 mg tablet 10 mg PO DIRECTED PRN NEEDED 12/23/24 12/23/24 History vitamin E 268 mg (400 unit) capsule 800 mg PO DAILY 12/23/24 12/23/24 History metoprolol tartrate 25 mg tablet 25 mg PO BID #60 tabs 12/24/24 Rx Past Med/Surg History Problem List (Updated 12/28/24 @ 02:00 by Miles Medina MD) Submandibular gland infection Hypokalemia (Acute) A-fib (Acute) Bilateral edema of lower extremity (Acute) Lumbar disc herniation with radiculopathy Calcification of intervertebral cartilage or disc of lumbar region Right lumbar radiculopathy Urinary tract infection (Acute) Abnormal finding on CT scan (Acute) Pain in right lumbar region of back (Acute) Ambulatory dysfunction (Acute) Chronic right hip pain (Acute) Greater trochanteric bursitis of right hip Rotator cuff arthropathy of left shoulder Secondary adrenal insufficiency Anticoagulant long-term use Scapular fracture (06/14/24) Acute fracture at the base of the acromion from a fall. Leg length discrepancy Adrenal insufficiency Hypercalcemia Orthostatic hypotension Nocturnal hypoxia o2 3L HS. Fracture of acromion of scapula (06/14/24) Acute fracture at the base of the acromion from a fall. Atrial fibrillation Ambulatory dysfunction Recurrent falls Contusion of knee, right (Acute) Generalized weakness (Acute) Obstructive lung disease Acromioclavicular joint arthritis Rotator cuff arthropathy of right shoulder Left ventricular systolic dysfunction Mitral regurgitation Aortic regurgitation Prediabetes Nonobstructive atherosclerosis of coronary artery Subacromial bursitis Glenohumeral arthritis SI (sacroiliac) joint dysfunction Osteoarthritis of ankle, left CAD (coronary artery disease) Mild- luminal irregularities only on 2003 cardiac cath Esophageal dysphagia Chronic constipation with overflow incontinence ADHD Stable Chronic obstructive pulmonary disease stable Allergic rhinitis (Chronic) Anxiety disorder (Chronic) follows with psych Benign familial tremor (Chronic) Cervicalgia (Chronic) Controlled substance agreement broken (Chronic) Former smoker (Chronic) Fusion of spine, lumbar region (Chronic) Glaucoma (Chronic) Hyperlipidemia (Chronic) Raynaud's disease (Chronic) Rectocele (Chronic) Restless legs syndrome (Chronic) SNHL (sensorineural hearing loss) (Chronic) Solitary pulmonary nodule (Chronic) Urge incontinence of urine (Chronic) Vitamin D deficiency (Chronic) Hypomagnesemia (Chronic) CKD (chronic kidney disease) stage 3, GFR 30-59 ml/min (Chronic) Depression (Chronic) Anemia (Chronic) Asthma (Chronic) Lumbar stenosis with neurogenic claudication (Chronic) Medical History Pre-diabetes CKD (chronic kidney disease) pt denies Mitral regurgitation Left ventricular systolic dysfunction EF 45-50% on 03/2023 echo; > 55% 12/2023 stress echo CAD (coronary artery disease) mild in 2003 per [place] cardiology records Aortic regurgitation mild to moderate on 03/2023 echo Esophageal dysphagia Asthma COPD (chronic obstructive pulmonary disease) Anxiety Raynauds disease Acid reflux controlled, stable per pt Tremor hands History of gastric ulcer History of sepsis (2022) History of skin cancer removed Difficult intravenous access Rectocele Arthritis of neck mild limitation rom. 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 Rheumatoid arthritis (02/25/13) per pt dx at age with RA. Surgical History Status post reverse total replacement of right shoulder (~03/2024) History of lumbar fusion x2 most recent [address] Dr. Lerma History of foot surgery toes on left foot - pt confirms a total of 4 left foot surgeries. History of foot surgery left removal of bone spur S/P foot surgery, left LEFT FOOT LITTLE TOE AMPUTATED 2022. S/P foot surgery, left left ankle/foot reconstruction (2019) History of total hip arthroplasty right hip H/O toe surgery left foot History of total knee replacement bilateral; right TKA: 05/22/17: SAB x1 at L3-L4 + PNB at [facility] S/P hardware removal right ankle S/P laparotomy removed adhesions to relieve bowel strangulation S/P ankle arthrodesis right ankle History of open reduction and internal fixation (ORIF) procedure right ankle H/O elbow surgery bilateral S/P AMANDA (total abdominal hysterectomy) H/O thumb surgery right x2 History of appendectomy History of colonoscopy History of esophagogastroduodenoscopy (EGD) History of surgical removal of skin lesion History of tonsillectomy Family History Family/Other Coronary heart disease Heart disease Cancer Hypertension Brother Prostate cancer Benign familial tremor Father Benign familial tremor Mother Malignant melanoma Aunt Rheumatoid arthritis Other No family history of adverse response to anesthesia Denies family history of Ovarian cancer Myocardial infarction Breast cancer Colorectal cancer Social History Smoking Status: Former smoker Tobacco Type: Cigarettes Age Started Using Tobacco: 19 (intermittently quit throughout the years); Age Quit Using Tobacco: 81; packs per day: 0.1; Cigarettes Per Day: 2; Second Hand Exposure: No; Do You Dip or Chew Tobacco: No; Hx Alcohol Use: Yes Alcohol type: beer Alcohol Intake Frequency: Monthly or Less Alcohol Intake Frequency Comment: rarely Hx Substance Use: No Preferred Language: Frisian Communication Ability: Effective Visual Impairment: No Limitations Hearing Ability: Hard of Hearing Film Sound Coordinator Required: No Beliefs That Will Affect Care: None marital status: Current Living Situation: Alone Current Living Situation Comment: apartment building 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al status: retired 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: 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[employer], 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 How many Children do You have: 2 Feels Safe at Home: Yes Childhood Exposure to Second-Hand Smoke: No Diet: regular caffeine: Yes during the past year weight has: remained stable Dental Care, Regularly: No Physical Activity Frequency: Daily Seatbelt Use: always Sunscreen Use: Yes (sometimes ) Assistive Devices: Cane and Walker Review of Systems Review of Systems: The patient denies chest pain, palpitations, shortness of breath, dyspnea on exertion, cough, lower extremity swelling, sore throat, fevers, chills, sweats, nausea, vomiting, diarrhea , constipation, abdominal pain, pelvic pain, blood in urine or stool, dysuria, urinary frequency or urgency, lightheadedness, dizziness, headache, loss of consciousness, rash, abnormal bruising or bleeding, focal weakness, numbness or tingling in arms or legs, or night sweats. The review of systems is otherwise negative other than for that already noted above, and at least 10 systems have been reviewed. Physical Exam Physical Exam: The patient is awake, alert and oriented 3, well developed and well nourished, normocephalic and atraumatic, lying in bed and in no acute distress. HEENT--PERRL, EOMI, mucous membranes and oropharynx mildly dry. Left parotid gland with marked swelling, edema and erythema. No airway compromise, no stridor Neck--left submandibular gland with marked swelling, edema and erythema Heart--normal S1 and S2. No murmurs, rubs or gallops. Lungs--clear bilaterally, no respiratory distress, no accessory muscle use. Abdomen--normal bowel sounds and soft. Nontender. Nondistended, no hernias or masses, no organomegaly. Extremities--no cyanosis or clubbing. No edema. There are good distal pulses b/l. Dermatologic--see HEENT and neck above Neurologic--cranial nerves II through XII grossly intact. Rheumatologic--limited range of motion of shoulders, arms, hips and knees due to arthritis Psychiatric--normal affect. Results & Data Results & Data Vital Signs (Past 12 Hours) Vital Signs Temp Pulse Pulse Resp BP BP Pulse Ox 12/28/24 01:30 94 H 17 154/98 H 96 12/28/24 00:45 92 H 17 167/113 H 91 12/28/24 00:31 102/83 12/28/24 00:00 85 31 H 156/91 H 91 12/27/24 23:33 81 22 95 12/27/24 23:31 158/73 H 12/27/24 23:00 165/105 H 12/27/24 22:57 84 92 12/27/24 22:48 87 12/27/24 22:07 88 16 144/85 H 95 12/27/24 22:02 36.8 C 92 H 18 149/84 H 95 O2 Del Method O2 Flow Rate 12/28/24 01:30 Nasal Cannula 3 12/28/24 00:45 Room Air 12/28/24 00:31 12/28/24 00:00 Room Air 12/27/24 23:33 Room Air 12/27/24 23:31 12/27/24 23:00 12/27/24 22:57 Room Air 12/27/24 22:48 12/27/24 22:07 12/27/24 22:02 Room Air Laboratory Results Laboratory Results WBC 15.33 K/ul (4.8-10.8) H 12/27/24 22:14 RBC 4.47 M/uL (4.20-5.40) 12/27/24 22:14 Hgb 12.8 g/dl (12.0-16.0) 12/27/24 22:14 Hct 40.8 % (37.0-47.0) 12/27/24 22:14 MCV 91.3 fL (80.0-100.0) 12/27/24 22:14 MCH 28.6 pg (25.0-34.0) 12/27/24 22:14 MCHC 31.4 g/dL (32.0-36.0) L 12/27/24 22:14 RDW Std Deviation 51.6 fL (36.4-46.3) H 12/27/24 22:14 RDW Coeff of Aspen 15.5 % (11.5-14.5) H 12/27/24 22:14 Plt Count 257 K/uL (130-400) 12/27/24 22:14 MPV 9.5 fL (9.4-12.4) 12/27/24 22:14 Immature Gran % (Auto) 1.2 % 12/27/24 22:14 Neut % (Auto) 74.4 % 12/27/24 22:14 Lymph % (Auto) 14.0 % 12/27/24 22:14 [place] % (Auto) 8.7 % 12/27/24 22:14 Eos % (Auto) 1.3 % 12/27/24 22:14 Baso % (Auto) 0.4 % 12/27/24 22:14 Neut # (Auto) 11.39 K/uL (1.40-6.50) H 12/27/24 22:14 Lymph # (Auto) 2.15 K/uL (1.20-3.40) 12/27/24 22:14 [place] # (Auto) 1.34 K/uL (0.11-0.59) H 12/27/24 22:14 Eos # (Auto) 0.20 K/uL (0.00-0.50) 12/27/24 22:14 Baso # (Auto) 0.06 K/uL (0.00-0.20) 12/27/24 22:14 Immature Gran # (Auto) 0.19 K/uL (0.01-0.20) 12/27/24 22:14 ESR 45 mm/hr (0-30) H 12/27/24 22:14 Sodium 143 mmol/L (136-145) 12/27/24 22:14 Potassium 3.4 mmol/L (3.5-5.1) L 12/27/24 22:14 Chloride 101 mmol/L (98-107) 12/27/24 22:14 Carbon Dioxide 33 mmol/L (21-32) H 12/27/24 22:14 Anion Gap 9 (3-11) 12/27/24 22:14 BUN 22 mg/dl (6-23) 12/27/24 22:14 Creatinine 0.59 mg/dl (0.6-1.2) L 12/27/24 22:14 Est Cr Clr Drug Dosing Not Reportable 12/27/24 22:14 eGFR 88.26 12/27/24 22:14 BUN/Creatinine Ratio 37.3 (10-20) H 12/27/24 22:14 Glucose 133 mg/dl (70-99(Fasting)) H 12/27/24 22:14 Calcium 10.1 mg/dl (8.6-10.3) 12/27/24 22:14 Magnesium 1.4 mg/dl (1.7-2.4) L 12/27/24 22:14 Total Bilirubin 0.6 mg/dl (0.2-1.0) 12/27/24 22:14 AST 16 U/L (13-39) 12/27/24 22:14 ALT 17 U/L (7-52) 12/27/24 22:14 Alkaline Phosphatase 100 U/L (34-104) 12/27/24 22:14 C-Reactive Protein 3.56 mg/dl (0-0.5) H 12/27/24 22:14 Total Protein 6.9 gm/dl (6.0-8.3) 12/27/24 22:14 Albumin 4.1 gm/dl (3.4-5.0) 12/27/24 22:14 Globulin 2.8 gm/dl (2.5-4.0) 12/27/24 22:14 Albumin/Globulin Ratio 1.5 (0.9-2) 12/27/24 22:14 Impressions Soft Tissue Neck CT 12/27/24 22:11 Exam(s): CT NECK SOFT TISSUE With Contrast IV Amt: 93 ML OPTIRAY 320 EXAM: CT Neck With Intravenous Contrast CLINICAL HISTORY: L submand swelling, TTP, erythema. TECHNIQUE: Axial computed tomography images of the neck with intravenous contrast. CTDI is 13.52 mGy and DLP is 389.77 mGy-cm. Automated exposure control was utilized for the study. A dose lowering technique was utilized adhering to the principles of ALARA. CONTRAST: Patient received 93 ML OPTIRAY 320 of IV contrast COMPARISON: No relevant prior studies available. FINDINGS: Limitations: There is motion artifact, which degrades image quality on multiple image slices. Oral cavity: There is no evidence of extension of inflammatory changes into the floor of the mouth to suggest Jamey's angina. Oropharynx: Unremarkable. No significant tonsillar enlargement. No peritonsillar abscess. Hypopharynx: Unremarkable. Larynx: Unremarkable. Normal epiglottis. Trachea: Unremarkable. Retropharyngeal space: Unremarkable. Submandibular/parotid glands: No parotid duct dilation or sialolith noted. The left submandibular gland is also slightly asymmetrically enlarged and somewhat hyperdense with the fat stranding extending to the submandibular region. Thyroid: Unremarkable. No enlarged or calcified nodules. Bones/joints: Multilevel degenerative changes throughout the cervical spine. Degenerative fusion of the several facet joints. No acute osseous abnormality. Soft tissues: The left parotid gland is enlarged with asymmetric ill- defined hyperenhancement and surrounding subcutaneous fat stranding with overlying dermal thickening. Vasculature: Atherosclerotic changes of the carotid bifurcations and proximal internal carotid arteries. No significant abnormality. Extensive atherosclerotic calcification of the aortic arch. No dissection. Lymph nodes: Presumably reactive left level two cervical chain lymph nodes, subcentimeter in size. Lung apices: Minimal apical capping noted bilaterally. The lungs are otherwise unremarkable. IMPRESSION: 1. The left parotid gland is enlarged with asymmetric ill-defined hyperenhancement and surrounding subcutaneous fat stranding with overlying dermal thickening. The primary consideration is parotitis. 2. The left submandibular gland is also slightly asymmetrically enlarged and somewhat hyperdense with the fat stranding extending to the submandibular region. Coexisting left submandibular inflammation/infection or reactive edema are the primary considerations. Electronically signed by: Damian Moura MD 12/28/24 00:05 AM Code Status & VTE Plan Code Status DNR/DNI VTE Prophylaxis Plan VTE Prophylaxis will be ordered: Yes PG Care Time/CCT Total # of Minutes Spent Total Time Spent with Patient: Total time spent is greater than 50% in coordination of care (as documented) at patient's floor/unit and/or counseling patient: Coding Level of Care Code 08855 INT INP/OBS CARE 3/75MIN Diagnoses Acute parotitis K11.21 Submandibular gland infection K11.20 Hypomagnesemia E83.42 A-fib I48.91 Secondary adrenal insufficiency E27.49
[2024-12-28] MEDS ORDERED: ONDANSETRON INJ 2 MG/ML 2 ML VIAL IV PRN (01:53)
[2024-12-28] MEDS ORDERED: ALBUTEROL 0.083% NEBU SOLN 3 ML VIAL INH PRN (01:53)
[2024-12-28] MEDS ORDERED: ALBUTEROL HFA 8 GM INHALER INH PRN (01:53)
[2024-12-28] MEDS: PRAMIPEXOLE DIHYDROCHLO 0.5 MG TAB PO STA (02:12)
[2024-12-28] MEDS: MAGNESIUM OXIDE 400 MG TAB PO STA (02:12)
[2024-12-28] MEDS: busPIRone 5 MG TAB PO ONE (02:12)
[2024-12-28] MEDS: ATORVASTATIN 40 MG TAB PO STA (02:12)
[2024-12-28] MEDS: GABAPENTIN 400 MG CAP PO STA (02:13)
[2024-12-28] MEDS: APIXABAN 5 MG TABLET PO ONE (02:13)
[2024-12-28] MEDS: MONTELUKAST SODIUM 10 MG TABLET PO ONE (02:14)
[2024-12-28] MEDS: METOPROLOL TARTRATE 25 MG TAB PO STA (02:14)
[2024-12-28] MEDS: lamoTRIgine 100 MG TAB PO STA (02:16)
[2024-12-28] MEDS: lamoTRIgine 25 MG TAB PO STA (02:17)
[2024-12-28] MEDS: MAGNESIUM SULFATE / D5W 1 GM/100 ML BAG IV SCH (03:28)
[2024-12-28] MEDS: Patient's HEIGHT &/or WEIGHT Needed STA (03:28)
[2024-12-28 04:31] LABS: Hematocrit (blood only) 34.0 % (37.0-47.0); Hemoglobin 10.8 g/dl (12.0-16.0); Immature Granulocytes # (auto) 0.12 K/uL (0.01-0.20); Immature Granulocytes % (auto) 0.9 %; Mean Corpuscular Hemoglobin 29.2 pg (25.0-34.0); Mean Corpuscular Volume 91.9 fL (80.0-100.0); Platelet Count 225 K/uL (130-400); RDW Standard Deviation 51.9 fL (36.4-46.3); Red Blood Count 3.70 M/uL (4.20-5.40); White Blood Count 13.94 K/ul (4.8-10.8)
[2024-12-28 04:48] LABS: Anion Gap 6.0 (3-11); Blood Urea Nitrogen 16.0 mg/dl (6-23); Calcium 9.4 mg/dl (8.6-10.3); Carbon Dioxide 30.0 mmol/L (21-32); Chloride 105.0 mmol/L (98-107); Creatinine Clr Calc Pharmacy 82.8 ml/min; Glucose 126.0 mg/dl (70-99(Fasting)); Magnesium 1.5 mg/dl (1.7-2.4); Potassium 4.1 mmol/L (3.5-5.1); Sodium 141.0 mmol/L (136-145)
[2024-12-28] MEDS: HYDROCORTISONE 10 MG TAB PO SCH ×2 (06:19→13:32)
[2024-12-28] MEDS: ACETAMINOPHEN 500 MG TAB PO SCH (06:19)
[2024-12-28] MEDS: DEXTROAMPHETAMINE/AMPHETAMINE IR 20 MG TAB PO SCH (06:20)
[2024-12-28] MEDS: CLINDAMYCIN/D5W 900 MG/50 ML BAG IV SCH (07:54)
[2024-12-28] MEDS: BRIMONIDINE TARTRATE 0.2% 5ML OP SCH (08:38)
[2024-12-28] MEDS: TIMOLOL MALEATE 0.5% OP SOLN 5 ML BTL OP SCH (08:38)
[2024-12-28] MEDS: TOCOPHERYL, DL-ALPHA 400 UNITS 180 MG CAP PO SCH (08:39)
[2024-12-28] MEDS: ASCORBIC ACID 500 MG TAB PO SCH (08:39)
[2024-12-28] MEDS: CALCIUM 600MG + VIT D 400 IU TAB PO SCH (08:39)
[2024-12-28] MEDS: GABAPENTIN 400 MG CAP PO SCH (08:39)
[2024-12-28] MEDS: APIXABAN 5 MG TABLET PO SCH (08:39)
[2024-12-28] MEDS: METOPROLOL TARTRATE 25 MG TAB PO SCH (08:39)
[2024-12-28] MEDS: LORATADINE 10 MG TAB PO SCH (08:39)
[2024-12-28] MEDS: OXYBUTYNIN CHLORIDE XL 5 MG TABCR PO SCH (08:39)
[2024-12-28] MEDS: CYANOCOBALAMIN (B-12) 2,500 MCG TABLET PO SCH (08:39)
[2024-12-28] MEDS: MULTIVITAMIN TAB PO SCH (08:39)
[2024-12-28] MEDS: ZINC SULFATE 220 MG CAPSULE PO SCH (08:39)
[2024-12-28] MEDS: ESCITALOPRAM OXALATE 20 MG TAB PO SCH (08:39)
[2024-12-28] MEDS: CHOLECALCIFEROL 125 MCG (5,000 UNITS) TAB PO SCH (08:40)
[2024-12-28] MEDS ORDERED: NON-FORMULARY MEDICATION (Biotin 10 mg Tablet) PO SCH (09:00)
[2024-12-28] MEDS: DEXTROAMPHETAMINE/AMPHETAMINE IR 10 MG TAB PO SCH (13:34)
[2024-12-28] MEDS: DIGOXIN 0.125 MG TAB PO SCH (15:48)
--- NOTE | 2024-12-28 18:05 | Hospitalist Progress Note ---
Date of Service December 28, 2024 Assessment & Plan (1) Acute parotitis: (2) Submandibular gland infection: (3) Hypomagnesemia: (4) A-fib: (5) Secondary adrenal insufficiency: Plan The patient is a 84-year-old female with a past medical history including atrial fibrillation, lower extremity edema, lumbar radiculopathy, ambulatory dysfunction, right hip osteoarthritis and pain, long-term anticoagulant use, secondary adrenal insufficiency, nocturnal hypoxia requiring 3 L nasal cannula oxygen, COPD, aortic and mitral regurgitation, CAD, esophageal dysphagia, ADHD, benign familial tremor, Raynaud's disease, CKD stage III, depression, and asthma. She presents to the emergency department with 24 hours of worsening left-sided facial pain and swelling. CT scan of soft tissues of neck is consistent with a left parotitis, and left submandibular infection. Admitted for ongoing IV antibiotics Left parotitis/left submandibular infection- Multiple antibiotic allergies including to fluoroquinolones, penicillins, and azithromycin Patient reports having something similar a few months ago treated with PO antibiotics, but no records in [place] system. Unsure if she has ever had augmentin Continue clindamycin 900 mg IV every 8 hours Concern for salivary stone with dry mouth - add lemon wedges to suck on with meals Supportive care: heat application and massage Atrial fibrillation/hypertension- Continue apixaban, metoprolol tartrate, magnesium oxide, digoxin, diltiazem, aspirin Hypomagnesemia/hypokalemia Magnesium 1.4 on admission, give magnesium sulfate 2 g IV Potassium 3.4 on admission - repleted to 4.1 Repeat laboratories in the a.m. Secondary adrenal insufficiency- Patient reports she takes hydrocortisone 30 mg at 0600, and 10 mg at 1400 monitor BP for need for stress dose steroids Mood disorder/ADHD-Continue buspirone, trazodone, lamotrigine, gabapentin, pramipexole, dextroamphetamine-amphetamine Nocturnal hypoxia - continue 3L HS GERD- Continue pantoprazole Hyperlipidemia-Continue atorvastatin Bladder spasm-Continue oxybutynin chloride Glaucoma-Continue routine eyedrops Dispo: continued inpatient stay for IV abx DVT proh: add Lovenox Admission and Anticipated Discharge Date Admission Date: December 28, 2024 Supervising Physician Co-Signing Physician Notes PA Supervision Note: I did not personally see or examine the patient today, but I verified all unger points of JACI Lee's assessment and plan with the following exceptio ns/additions: None Subjective Patient seen lying in bed this afternoon reports pain started about 2 nights ago, had something similar a few months ago and had to take oral antibiotics, not sure which ones denies fevers and chills we discussed salivary gland stones - she does not think she has had this in the past Review of Systems Review of Systems: All systems reviewed & are unremarkable except as noted in Subjective Physical Exam Physical Exam: General: NAD, VS as above HEENT: left mandibular region is swollen. tender to touch, and firm. no erythema or warmth Resp: normal respiratory effort, lungs clear to auscultation CV: RRR, no murmur, Results & Data Results & Data Vital Signs (Past 12 Hours) Vital Signs Temp Pulse Pulse Resp BP Pulse Ox O2 Del Method 12/28/24 16:37 97.4 F L 62 20 100/67 93 Nasal Cannula 12/28/24 14:35 70 12/28/24 13:07 98.2 F 79 21 101/51 L 96 Nasal Cannula 12/28/24 12:43 Nasal Cannula 12/28/24 08:00 89 18 121/89 96 Nasal Cannula 12/28/24 06:52 65 12/28/24 06:00 68 17 123/60 93 Nasal Cannula O2 Flow Rate 12/28/24 16:37 2 12/28/24 14:35 12/28/24 13:07 3 12/28/24 12:43 3 12/28/24 08:00 3 12/28/24 06:52 12/28/24 06:00 3 PG Care Time/CCT Total # of Minutes Spent Total Time Spent with Patient: Total time spent is greater than 50% in coordination of care (as documented) at patient's floor/unit and/or counseling patient: Coding Level of Care Code None Diagnoses Acute parotitis K11.21 Submandibular gland infection K11.20 Hypomagnesemia E83.42 A-fib I48.91 Secondary adrenal insufficiency E27.49
[2024-12-28] MEDS: busPIRone 5 MG TAB PO SCH (21:23)
[2024-12-28] MEDS: ATORVASTATIN 40 MG TAB PO SCH (21:23)
[2024-12-28] MEDS: PRAMIPEXOLE DIHYDROCHLO 0.5 MG TAB PO SCH (21:25)
[2024-12-28] MEDS: MONTELUKAST SODIUM 10 MG TABLET PO SCH (21:26)
[2024-12-28] MEDS: MAGNESIUM OXIDE 400 MG TAB PO SCH (21:26)
[2024-12-28] MEDS: lamoTRIgine 100 MG TAB PO SCH (21:27)
[2024-12-28] MEDS: ASPIRIN 81 MG ECTAB PO SCH (21:34)
[2024-12-28] MEDS: TRAVOPROST Z 0.004% OPH SOLN 2.5 ML BTL OPB SCH (22:54)
[2024-12-29 07:06] VITALS: RESP 20
[2024-12-29 09:23] LABS: Hematocrit (blood only) 39.2 % (37.0-47.0); Hemoglobin 12.0 g/dl (12.0-16.0); Immature Granulocytes # (auto) 0.18 K/uL (0.01-0.20); Immature Granulocytes % (auto) 1.3 %; Mean Corpuscular Hemoglobin 28.4 pg (25.0-34.0); Mean Corpuscular Volume 92.9 fL (80.0-100.0); Platelet Count 263 K/uL (130-400); RDW Standard Deviation 53.0 fL (36.4-46.3); Red Blood Count 4.22 M/uL (4.20-5.40); White Blood Count 13.53 K/ul (4.8-10.8)
[2024-12-29 09:41] LABS: Anion Gap 7.0 (3-11); Blood Urea Nitrogen 22.0 mg/dl (6-23); Calcium 10.3 mg/dl (8.6-10.3); Carbon Dioxide 30.0 mmol/L (21-32); Chloride 103.0 mmol/L (98-107); Creatinine Clr Calc Pharmacy 68.3 ml/min; Glucose 145.0 mg/dl (70-99(Fasting)); Magnesium 1.7 mg/dl (1.7-2.4); Potassium 4.4 mmol/L (3.5-5.1); Sodium 140.0 mmol/L (136-145)
[2024-12-29 10:42] VITALS: BP 110/71; PULSE 96; TEMP 98.6; O2SAT 92
--- NOTE | 2024-12-29 11:44 | Discharge Summary ---
Discharge Summary Date of Service December 29, 2024 Principal Dx & Hospital Course #1 = Principal Diagnosis (1) Acute parotitis: (2) Submandibular gland infection: (3) Hypomagnesemia: (4) A-fib: (5) Secondary adrenal insufficiency: Plan Left parotitis/left submandibular infection- The patient is a 84-year-old female with a past medical history including atrial fibrillation, lower extremity edema, lumbar radiculopathy, ambulatory dysfunction, right hip osteoarthritis and pain, long-term anticoagulant use, secondary adrenal insufficiency, nocturnal hypoxia requiring 3 L nasal cannula oxygen, COPD, aortic and mitral regurgitation, CAD, esophageal dysphagia, ADHD, benign familial tremor, Raynaud's disease, CKD stage III, depression, and asthma. She presents to the emergency department with 24 hours of worsening left-sided facial pain and swelling. CT scan of soft tissues of neck is consistent with a left parotitis, and left submandibular infection. No abcess. Improving on IV clindamycin. No associated cellulitis, afebrile. Stable for discharge to home with continued course of PO clindamycin. Supportive care: heat pack, massage, tylenol for pain, lemon wedges/hard candy for saliva production Atrial fibrillation/hypertension- Continue apixaban, metoprolol tartrate, magnesium oxide, digoxin, diltiazem, aspirin Hypomagnesemia/hypokalemia - repleted IV, resovled Secondary adrenal insufficiency- continue home hydrocortisone dosing. stress dose steroids, not needed. Likely cause of her chronic leukocytosis Mood disorder/ADHD-Continue buspirone, trazodone, lamotrigine, gabapentin, pramipexole, dextroamphetamine-amphetamine Nocturnal hypoxia - continue 3L HS GERD- Continue pantoprazole Hyperlipidemia-Continue atorvastatin Bladder spasm-Continue oxybutynin chloride Glaucoma-Continue routine eyedrops Dispo: discharge to home today Notes For Next Care Provider Medication Changes From Visit course of clindamycin Admission HPI Per Admitting Provider The patient is a 84-year-old female with a past medical history including atrial fibrillation, lower extremity edema, lumbar radiculopathy, ambulatory dysfunction, right hip osteoarthritis and pain, long-term anticoagulant use, secondary adrenal insufficiency, nocturnal hypoxia requiring 2 L nasal cannula oxygen, COPD, aortic and mitral regurgitation, CAD, esophageal dysphagia, ADHD, benign familial tremor, Raynaud's disease, CKD stage III, depression, and asthma. She presents to the emergency department with 24 hours of worsening left-sided facial pain and swelling. CT scan of soft tissues of neck is consistent with a left parotitis, and left submandibular infection. From the ED she received tramadol 25 mg p.o., clindamycin 600 mg IV, and potassium chloride 40 mEq p.o. [facility] Exam General: NAD, VS as above HEENT: left mandibular region is swollen. tender to touch, and firm. no erythema or warmth Resp: normal respiratory effort, lungs clear to auscultation CV: afib, no murmur, Discharge Plan Discharge Items Patient Disposition: Home - Self-Care Reason For Visit: LEFT PEROTITIS, LEFT SUBMANDIBULAR GLAND INFECTION Discharge Diagnosis: left submandibular gland infection Condition on Discharge: Fair Activity: Resume your previous activity Non-emergency contact: Primary Care Provider Call non-emergency contact if: you have any medication questions, your pain is not controlled and your temperature is above 101 Follow-up/Referrals: Faiza Costa MD [Primary Care Provider] - 01/05/25 3:20 pm ( ) Diet: Heart Healthy Addtl Attending Provider Instructions: Ms. Alves, You were hospitalized after having a salivary gland infection. This was treated with IV antibiotics and you have done well. To continue treating this you will be continued on clindamycin 3 times a day for another week. To continue healing you can suck on hard candies or lemon wedges to stimulate saliva production. Use heat as needed for pain and to help ease the infection. please follow up with your PCP in one week No changes to your home medications. CONTACT YOUR PRIMARY CARE PROVIDER if you experience any of the following: Shortness of breath or difficulty breathing Fevers or chills Feeling tired with normal activity or experiencing dizziness or fainting Difficulty following your treatment plan, or difficulty taking medications CALL 911 OR GO TO THE EMERGENCY DEPARTMENT if you experience any of the fol lowing: Severe abdominal pain or nausea/vomiting Severe chest pain, or chest pain that radiates (moves) to your jaw or arm Sudden, severe shortness of breath or difficulty breathing Thank you for allowing us to participate in your care. Pending Studies at Discharge: No Stand-Alone Forms: My [facility], Smoking Cessation Medications and DC Order Prescriptions: New clindamycin HCl 300 mg capsule 600 mg PO Q8H 7 Days Qty: 42 0RF Continued aspirin 81 mg tablet,delayed release (DR/EC) 81 mg PO HS Qty: 30 5RF multivitamin Tablet 1 tab PO QAM Qty: 30 5RF (DME) Scooter Misc See Rx Instructions .Route Qty: 1 0RF Rx Instructions: As directed. (DME) nebulizers Misc See Rx Instructions .ROUTE .MEDSUPPLY Qty: 1 0RF Rx Instructions: New nebulizer (DME) nebulizer accessories Kit See Rx Instructions .ROUTE .MEDSUPPLY Qty: 2 0RF Rx Instructions: All tubing, connectors, and accessory pieces pramipexole 0.5 mg tablet 0.5 mg PO HS Qty: 90 1RF (DME) Oxygen Home Liters Per Minute See Rx Instructions .Route Qty: 1 0RF Rx Instructions: 2L/min O2 for use when sleeping. Pt is mouth breather, needs appropriate mask (DME) Select Disposable Briefs Misc See Rx Instructions .Route Qty: 6 3RF Rx Instructions: Pt would like 6 packs of briefs "pull ups" every other month gabapentin 400 mg capsule 400 mg PO BID Qty: 60 1RF magnesium oxide 400 mg magnesium tablet 400 mg PO QPM Qty: 90 3RF digoxin 125 mcg (0.125 mg) tablet 125 mcg PO QAM Qty: 90 1RF oxybutynin chloride 5 mg tablet extended release 24hr 5 mg PO QAM Qty: 90 1RF atorvastatin [Lipitor] 40 mg tablet 40 mg PO HS Qty: 90 1RF montelukast [Singulair] 10 mg tablet 10 mg PO HS Qty: 90 1RF pantoprazole [Protonix] 40 mg tablet,delayed release (DR/EC) 40 mg PO QAM Qty: 90 1RF metoprolol tartrate 25 mg tablet 25 mg PO BID Qty: 60 11RF travoprost 0.004 % drops 1 drp OPB HS Patient Comments: both eyes dextroamphetamine-amphetamine [Adderall] 10 mg tablet 10 mg PO DAILY@1400 Patient Comments: take 20 mg morning and 10 mg in afternoon. Rx Instructions: TAKE 20mg IN AM AND 10mg IN AFTERNOON. Metamucil (sugar) Powder 1 tbsp PO QPM PRN (Reason: Constipation) Eliquis 5 mg tablet 5 mg PO BID Qty: 60 11RF Rx Instructions: TAKE 1 TABLET BY MOUTH IN THE MORNING AND AT BEDTIME (DME) Ritu Bear See Rx Instructions .Route Qty: 1 0RF Rx Instructions: As directed R26.2, R53.1 biotin 10 mg Tablet 10 mg PO QAM ascorbic acid (vitamin C) [Vitamin C] 500 mg Tablet 500 mg PO QAM guaifenesin [Mucinex] 600 mg Tablet Extended Release 12hr 600 mg PO Q6H PRN (Reason: Congestion) cyanocobalamin (vitamin B-12) 2,500 mcg tablet 2,500 mcg PO QAM loratadine 10 mg Tablet 10 mg PO QAM albuterol sulfate [Ventolin HFA] 90 mcg/actuation HFA aerosol inhaler 2 puff Inhalation Q4 PRN (Reason: asthma) albuterol sulfate 2.5 mg /3 mL (0.083 %) Solution For Nebulization 3 mg INHALATION Q6 PRN (Reason: asthma attacks) Patient Comments: pt reports albuterol nebilizer for asthma attacks/none in yrs. brimonidine-timolol [Combigan] 0.2-0.5 % drops 1 drp OPB BID Patient Comments: both eyes trazodone 150 mg tablet 150 mg PO HS Qty: 45 5RF Rx Instructions: TAKE WITH 50MG = 200MG @HS escitalopram oxalate [Lexapro] 20 mg tablet 20 mg PO QAM Qty: 0 0RF buspirone 5 mg tablet 5 mg PO BID lamotrigine 150 mg tablet 150 mg PO HS dextroamphetamine-amphetamine 10 mg tablet 20 mg PO DAILY@0600 trazodone 50 mg Tablet 50 mg PO HS Rx Instructions: TAKEW WITH 150MG = 200MG@HS diltiazem HCl 180 mg capsule,extended release 24hr 360 mg PO QAM Rx Instructions: TWO CAPSULES IN THE AM calcium carbonate-vitamin D3 [Calcium 600 + D(3)] 600 mg-10 mcg (400 unit) Tablet 1 tab PO BID zinc gluconate 50 mg Tablet 50 mg PO QAM cholecalciferol (vitamin D3) [Vitamin D3] 125 mcg (5,000 unit) Tablet 125 mcg PO QAM vitamin E 268 mg (400 unit) Capsule 800 mg PO DAILY acetaminophen [Tylenol Extra Strength] 500 mg tablet 1,000 mg PO BID MDD 3G Rx Instructions: TAKES AT 0600 & 1400 hydrocortisone 10 mg tablet 15 mg PO QAM@0600 Rx Instructions: Take 15 mg (1 1/2 tablets) first thing in the morning; take 5 mg (1/2 tablet) 8 hours later. Double in times of stress Second dose must begin exactly 8 hours after the morning dose. hydrocortisone 10 mg tablet 5 mg PO DAILY@1300 Rx Instructions: TAKE 1&1/2 (15MG) TABS FIRST THING IN THE MORNING AND 1/2 (5MG) TAB 8 HOURS LATER. second dose must be exactly 8 hours after morning dose. DOUBLE IN TIMES OF STRESS. Discharge Orders: Discharge Order (Routine); Ordered 12/29/24 Ordered By: Rhona Lee Admission Data Admit Date/Time: 12/28/24 01:35 Attending Provider: Adirana Loza Admit Provider: Miles Medina Primary Care Provider: Faiza Costa Other Providers: Miles Medina Other Interventions: Discharge Summary Assessment (RN) Last Done: 12/29/24 11:53 Hospital Stay Data Consultations 12/28/24 00:47 ED Decision to Admit Stat Diagnostic Imagining Performed 12/27/24 22:11 CT soft tissue neck w con Stat Pending Results Patient Have Any Pending Studies at Discharge: No Discharge Instructions Given to Patient (Per Discharging Provider) Ms. Alves, John were hospitalized after having a salivary gland infection. This was treated with IV antibiotics and you have done well. To continue treating this you will be continued on clindamycin 3 times a day for another week. To continue healing you can suck on hard candies or lemon wedges to stimulate saliva production. Use heat as needed for pain and to help ease the infection. please follow up with your PCP in one week No changes to your home medications. CONTACT YOUR PRIMARY CARE PROVIDER if you experience any of the following: Shortness of breath or difficulty breathing Fevers or chills Feeling tired with normal activity or experiencing dizziness or fainting Difficulty following your treatment plan, or difficulty taking medications CALL 911 OR GO TO THE EMERGENCY DEPARTMENT if you experience any of the following: Severe abdominal pain or nausea/vomiting Severe chest pain, or chest pain that radiates (moves) to your jaw or arm Sudden, severe shortness of breath or difficulty breathing Thank you for allowing us to participate in your care. Supervising Physician Co-Signing Physician Notes JACI Supervision Note: I did not personally see or examine the patient today, but I verified all unger points of JACI Lee's assessment and plan with the following exceptio ns/additions: None Total Time Total Time Spent Total Time Spent (In Minutes): Time spent day of discharge 36 minutes including direct patient care, medication reconciliation, documentation, review of labs and images, and coordination of care. Coding Level of Care Code 44838 INP/OBS DISCH >30 MIN Diagnoses Acute parotitis K11.21 Submandibular gland infection K11.20 Hypomagnesemia E83.42 A-fib I48.91 Secondary adrenal insufficiency E27.49
== END 2024-12-29 12:27 | disposition home or self-care (01) | DRG 155 ==
LOC: ED 21:55 → EDINP 12-28 01:35 → SUATTDRO 12-28 01:35 → INTOOBSV 12-28 01:35 → 2W 12-28 01:53

== ENCOUNTER 2025-01-28 15:13 | Observation (INO) ==
[2025-01-28 15:51] LABS: Hematocrit (blood only) 36.1 % (37.0-47.0); Hemoglobin 11.3 g/dl (12.0-16.0); Immature Granulocytes # (auto) 0.07 K/uL (0.01-0.20); Immature Granulocytes % (auto) 0.6 %; Mean Corpuscular Hemoglobin 28.0 pg (25.0-34.0); Mean Corpuscular Volume 89.6 fL (80.0-100.0); Platelet Count 275 K/uL (130-400); RDW Standard Deviation 47.2 fL (36.4-46.3); Red Blood Count 4.03 M/uL (4.20-5.40); White Blood Count 12.15 K/ul (4.8-10.8)
[2025-01-28 16:08] LABS: Alanine Aminotransferase 23.0 U/L (7-52); Albumin Globulin Ratio 1.5 (0.9-2); Alkaline Phosphatase 96.0 U/L (34-104); Anion Gap 8.0 (3-11); Bilirubin,Total 0.4 mg/dl (0.2-1.0); Blood Urea Nitrogen 18.0 mg/dl (6-23); Calcium 10.1 mg/dl (8.6-10.3); Carbon Dioxide 35.0 mmol/L (21-32); Chloride 102.0 mmol/L (98-107); Creatinine Clr Calc Pharmacy 87.3 ml/min; Globulin 2.6 gm/dl (2.5-4.0); Glucose 123.0 mg/dl (70-99(Fasting)); Potassium 2.9 mmol/L (3.5-5.1); Sodium 145.0 mmol/L (136-145); Total Protein 6.5 gm/dl (6.0-8.3)
--- NOTE | 2025-01-28 16:11 | XRay Report ---
Clinical History: Dyspnea Technique: A frontal view of the chest was obtained Findings: There are no confluent pulmonary infiltrates. The heart size is at the upper limit of normal. No pleural effusion or pneumothorax is seen. There is no definite pulmonary nodule. No fracture is noted. There is a right shoulder arthroplasty. Impression: No active disease Electronically signed by Jeff Tobin 01-28-2025 4:10 PM
[2025-01-28] MEDS: ALBUTEROL 0.5% NEB SOLN 2.5 MG/0.5 ML VIAL NEB STA (16:32)
[2025-01-28] MEDS: POTASSIUM CHLORIDE CRTAB 20 MEQ TABCR PO STA ×2 (16:32→19:56)
--- NOTE | 2025-01-28 18:09 | Emergency Department Note ---
Impression & Plan CHF exacerbation ED Provider Note NAME: MARJORIE KNOWLES AGE: 84 SEX: F : 1940 ARRIVES VIA: Walk-In INFORMANT: Patient, ED PROVIDER(S): Raegan Cabrrea MD CHIEF COMPLAINT: Leg swelling, shortness of breath HPI: This is a 84-year-old female presenting for shortness of breath. Patient states that she has had increasing shortness of breath over the past 1 week. She has noticed her bilateral lower extremities are swollen. She history of A- fib as well as COPD. She was here previously for IV Lasix and was discharged on Lasix pills for few days. This was over 1 month ago. She states this feels similar. No associated chest pain. She is on apixaban for atrial fibrillation ROS: See above HPI for pertinent positives & negatives. A total of 10 systems reviewed and were otherwise negative. PAST MEDICAL HISTORY: See Below PAST SURGICAL HISTORY: See Below FAMILY HISTORY: See Below SOCIAL HISTORY: See Below HOME MEDICATIONS: See Below ALLERGIES: See Below VITALS: See Below PHYSICAL EXAMINATION: General: resting comfortably in no acute distress Head: Normocephalic and atraumatic Eyes: Normal inspection, extraocular muscles intact Ear, nose, throat: Normal external exam Neck: Normal range of motion Respiratory: Wheezing in all lung aguilar, crackles at the bases Cardiovascular: Regular rate/rhythm, no murmur GI: soft, nontender, no guarding or rebound Extremities: nontender, moves all extremities Neuro: The patient awake and alert, appropriately conversive, no focal deficits, symmetric faces Skin: Warm, dry, and intact MEDICAL DECISION MAKING: This is an 84-year-old female sent for shortness of breath. - Chest Xray independently interpreted by me showing no pneumothorax, focal opacity, or pleural effusions. - She is requiring oxygen at this time, 2 L to maintain oxygenation. Will attempt albuterol trial as patient have wheezing -Patient has no improvement after albuterol -Blood work reveals hypokalemia will do repletion at this time -Patient still hypoxic, poor ambulation status, will admit for suspected CHF exacerbation. Patient in 40 mg IV Lasix Differential diagnosis: CHF, pneumonia, COPD, URI Independent History obtained from: Daughter Diagnostics interpreted by me: ECG: ECG independently interpreted by me with atrial fibrillation with PVC, rate 68, prolonged QT normal QRS, no ST segment elevations consistent with STEMI criteria Cardiac Monitoring: An order was placed for continuous cardiac monitoring. The monitor shows a rate of 73 with sinus rhythm. Past Med/Surg History Problem List (Updated 01/29/25 @ 15:19 by Raegan Cabrera MD) CHF exacerbation (Acute) Acute and chronic respiratory failure Hypokalemia (Acute) (HFpEF) heart failure with preserved ejection fraction Dysphagia Lumbar disc herniation with radiculopathy Calcification of intervertebral cartilage or disc of lumbar region Right lumbar radiculopathy Abnormal finding on CT scan (Acute) Pain in right lumbar region of back (Acute) Chronic right hip pain (Acute) Greater trochanteric bursitis of right hip Rotator cuff arthropathy of left shoulder Secondary adrenal insufficiency Anticoagulant long-term use Leg length discrepancy Adrenal insufficiency Hypercalcemia Orthostatic hypotension Nocturnal hypoxia o2 3L HS. Fracture of acromion of scapula (06/14/24) Acute fracture at the base of the acromion from a fall. Atrial fibrillation Ambulatory dysfunction Recurrent falls Contusion of knee, right (Acute) Generalized weakness (Acute) Obstructive lung disease Acromioclavicular joint arthritis Rotator cuff arthropathy of right shoulder Left ventricular systolic dysfunction Mitral regurgitation Aortic regurgitation Prediabetes Nonobstructive atherosclerosis of coronary artery Glenohumeral arthritis SI (sacroiliac) joint dysfunction Osteoarthritis of ankle, left CAD (coronary artery disease) Mild- luminal irregularities only on 2003 cardiac cath Esophageal dysphagia Chronic constipation with overflow incontinence ADHD Stable Chronic obstructive pulmonary disease stable Allergic rhinitis (Chronic) Anxiety disorder (Chronic) follows with psych Benign familial tremor (Chronic) Cervicalgia (Chronic) Former smoker (Chronic) Fusion of spine, lumbar region (Chronic) Glaucoma (Chronic) Hyperlipidemia (Chronic) Raynaud's disease (Chronic) Rectocele (Chronic) Restless legs syndrome (Chronic) SNHL (sensorineural hearing loss) (Chronic) Solitary pulmonary nodule (Chronic) Urge incontinence of urine (Chronic) Vitamin D deficiency (Chronic) Hypomagnesemia (Chronic) CKD (chronic kidney disease) stage 3, GFR 30-59 ml/min (Chronic) Depression (Chronic) Anemia (Chronic) Asthma (Chronic) Lumbar stenosis with neurogenic claudication (Chronic) Medical History History of recent hospitalization [facility] 12/28-12/29: dx acute parotitis L side, submandibular gland infection; tx with IV abx and home on oral abx; pt states on 01/21/25 sx resolved Raynauds disease Benign familial tremor Ambulatory dysfunction pt states uses cane/walker; worst in AM R groin/RUE pain as well as LBP Right groin pain Lumbar radiculopathy Nocturnal hypoxia 3L O2 HS Secondary adrenal insufficiency daily steroid ADHD Atrial fibrillation Acute parotitis Submandibular gland infection Scapular fracture (06/14/24) Acute fracture at the base of the acromion from a fall. Pre-diabetes CKD (chronic kidney disease) pt denies Mitral regurgitation Left ventricular systolic dysfunction EF 45-50% on 03/2023 echo; > 55% 12/2023 stress echo CAD (coronary artery disease) mild in 2003 per [facility] records Aortic regurgitation mild to moderate on 03/2023 echo Esophageal dysphagia Asthma COPD (chronic obstructive pulmonary disease) Anxiety Raynauds disease Acid reflux controlled, stable per pt Tremor hands History of gastric ulcer History of sepsis (2022) History of skin cancer removed Difficult intravenous access Rectocele Arthritis of neck mild limitation rom. 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 Rheumatoid arthritis (02/25/13) previously followed with Rheumatology but no longer following Surgical History Status post reverse total replacement of right shoulder (~03/2024) History of lumbar fusion x2 most recent [address] Dr. Lerma History of foot surgery toes on left foot - pt confirms a total of 4 left foot surgeries. History of foot surgery left removal of bone spur S/P foot surgery, left LEFT FOOT LITTLE TOE AMPUTATED 2022. S/P foot surgery, left left ankle/foot reconstruction (2019) History of total hip arthroplasty right hip H/O toe surgery left foot History of total knee replacement bilateral; right TKA: 05/22/17: SAB x1 at L3-L4 + PNB at [facility] S/P hardware removal right ankle S/P laparotomy removed adhesions to relieve bowel strangulation S/P ankle arthrodesis right ankle History of open reduction and internal fixation (ORIF) procedure right ankle H/O elbow surgery bilateral S/P AMANDA (total abdominal hysterectomy) H/O thumb surgery right x2 History of appendectomy History of colonoscopy History of esophagogastroduodenoscopy (EGD) History of surgical removal of skin lesion History of tonsillectomy Family History Family/Other Coronary heart disease Heart disease Cancer Hypertension Brother Prostate cancer Benign familial tremor Father Benign familial tremor Mother Malignant melanoma Aunt Rheumatoid arthritis Other No family history of adverse response to anesthesia Denies family history of Ovarian cancer Myocardial infarction Breast cancer Colorectal cancer Social History Smoking Status: Former smoker Tobacco Type: Cigarettes Age Started Using Tobacco: 19 (intermittently quit throughout the years); Age Quit Using Tobacco: 81; packs per day: 0.1; Cigarettes Per Day: 2; Smoking End Date: 7 years ago; Second Hand Exposure: No; Do You Dip or Chew Tobacco: No; Hx Alcohol Use: Yes Alcohol type: beer Alcohol Intake Frequency: Monthly or Less Alcohol Intake Frequency Comment: rarely Hx Substance Use: No Preferred Language: Cymraes Communication Ability: Effective Visual Impairment: No Limitations Hearing Ability: Hard of Hearing Furnace Reliner Required: No Beliefs That Will Affect Care: None marital status: Current Living Situation: Alone Current Living Situation Comment: apartment building 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al status: retired 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: 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[employer], 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 How many Children do You have: 2 Feels Safe at Home: Yes Safety Concerns: Feels Safe At This Time Childhood Exposure to Second-Hand Smoke: No Diet: regular caffeine: Yes during the past year weight has: remained stable Dental Care, Regularly: No Physical Activity Frequency: Daily Seatbelt Use: always Sunscreen Use: Yes (sometimes ) Assistive Devices: Cane and Walker Allergies Allergies Allergy/AdvReac Type Severity Reaction Status Date / Time procaine Allergy Severe novacaine Verified 01/28/25 13:19 - anaphylaxis, mouth swelling, dyspnea chocolate flavor Allergy Intermediate hx rash Verified 01/28/25 13:19 Penicillins Allergy Unknown per Verified 01/28/25 13:19 allergy test azithromycin AdvReac Intermediate throat Verified 01/28/25 13:19 burned, lost weight fluticasone AdvReac Intermediate chest pain Verified 01/28/25 13:19 (from Advair) moxifloxacin AdvReac Intermediate N/V Verified 01/28/25 13:19 salmeterol AdvReac Intermediate chest pain Verified 01/28/25 13:19 (from Advair) zolpidem AdvReac Intermediate sleep Verified 01/28/25 13:19 walking NSAIDS (Non-Steroidal AdvReac Unknown advised to Verified 01/28/25 13:19 Anti-Inflamma avoid d/t ulcer hx Home Meds Home Medications Medication Instructions Recorded Confirmed psyllium seed (sugar) oral powder 1 tbsp PO QPM PRN Constipation 03/03/20 01/28/25 (Metamucil (sugar) oral powder) travoprost 0.004 % eye drops 1 drp OPB HS 05/03/21 01/28/25 ascorbic acid (vitamin C) 500 mg 500 mg PO QAM 11/12/22 01/28/25 tablet (Vitamin C) biotin 10 mg tablet 10 mg PO QAM 11/12/22 01/28/25 guaifenesin 600 mg tablet, 600 mg PO Q6H PRN Congestion 11/12/22 01/28/25 extended release 12 hr (Mucinex) cyanocobalamin (vitamin B-12) 2,500 mcg PO QAM 05/06/23 01/28/25 2,500 mcg tablet buspirone 5 mg tablet 5 mg PO BID Anxiety 02/18/24 01/28/25 albuterol sulfate 2.5 mg/3 mL 3 mg inhalation Q6 PRN asthma 02/20/24 01/28/25 (0.083 %) solution for nebulization attacks albuterol sulfate 90 mcg/actuation 2 puff inhalation Q4 PRN asthma 02/20/24 01/28/25 aerosol inhaler (Ventolin HFA) loratadine 10 mg tablet 10 mg PO QAM 02/20/24 01/28/25 brimonidine 0.2 %-timolol 0.5 % 1 drp OPB BID 06/14/24 01/28/25 eye drops (Combigan) calcium 600 mg (as 1 tab PO BID 09/23/24 01/28/25 carbonate)-vitamin D3 10 mcg (400 unit) tablet (Calcium 600 + D(3)) cholecalciferol (vitamin D3) 125 125 mcg PO QAM 09/23/24 01/28/25 mcg (5,000 unit) tablet (Vitamin D3) dextroamphetamine-amphetamine 10 20 mg PO DAILY@0600 09/23/24 01/28/25 mg tablet diltiazem HCl 180 mg capsule,24 360 mg PO QAM 09/23/24 01/28/25 hr,extended release lamotrigine 150 mg tablet 150 mg PO HS 09/23/24 01/28/25 zinc gluconate 50 mg tablet 50 mg PO QAM 09/23/24 01/28/25 acetaminophen 500 mg tablet 1,000 mg PO BID Pain 12/23/24 01/28/25 (Tylenol Extra Strength) vitamin E 268 mg (400 unit) capsule 800 mg PO DAILY 12/23/24 01/28/25 Oxygen Home 01/05/25 01/28/25 dextroamphetamine-amphetamine 10 10 mg PO DAILY@1400 01/05/25 01/28/25 mg tablet (Adderall) hydrocortisone 10 mg tablet 10 mg PO .Daily @ 1400 01/05/25 01/28/25 hydrocortisone 10 mg tablet 20 mg PO QAM@0600 01/05/25 01/28/25 trazodone 150 mg tablet 225 mg PO HS 01/21/25 01/28/25 Previous Rx's Medication Instructions Recorded aspirin 81 mg tablet,delayed 81 mg PO HS #30 tabs 08/18/20 release multivitamin 1 tab PO QAM #30 tabs 09/13/20 Scooter #1 ea 04/03/21 nebulizer accessories #2 ea 03/31/23 nebulizers #1 ea 03/31/23 pramipexole 0.5 mg tablet 0.5 mg PO HS #90 tabs 05/17/24 escitalopram oxalate 20 mg tablet 20 mg PO QAM #0 tabs 06/18/24 (Lexapro) Wheeled Walker #1 ea 07/08/24 diaper,brief,adult,disposable #6 ea 08/06/24 (Select Disposable Briefs) gabapentin 400 mg capsule 400 mg PO BID #60 caps 10/08/24 magnesium oxide 400 mg PO QPM #90 tabs 10/22/24 atorvastatin 40 mg tablet (Lipitor) 40 mg PO HS #90 tabs 12/16/24 digoxin 125 mcg (0.125 mg) tablet 125 mcg PO QAM #90 tabs 12/16/24 montelukast 10 mg tablet 10 mg PO HS #90 tabs 12/16/24 (Singulair) oxybutynin chloride 5 mg 5 mg PO QAM #90 tabs 12/16/24 tablet,extended release 24 hr pantoprazole 40 mg tablet,delayed 40 mg PO QAM #90 tabs 12/16/24 release (Protonix) metoprolol tartrate 25 mg tablet 25 mg PO BID #60 tabs 12/24/24 naloxone 4 mg/actuation nasal 4 mg intranasal Q3M PRN opioid 01/05/25 spray (Narcan) overdose #2 ea omeprazole 40 mg capsule,delayed 40 mg PO QAM #30 caps 01/05/25 release apixaban 5 mg tablet (Eliquis) 5 mg PO BID #60 tabs 01/12/25 Results & Data (ED) Vital Signs Vital Signs - 24 hr 01/28/25 15:17 01/28/25 15:23 01/28/25 15:23 Temperature 36.4 C L Temperature Source Temporal Artery Scan Pulse Rate 75 Pulse Rate from SpO2 Sensor Respiratory Rate 20 Respiratory Effort / Characteristics Non-Labored Spontaneous Respiratory Depth Normal Respiratory Pattern Regular Blood Pressure 133/59 L Blood Pressure Mean 83 Pulse Oximetry 92 89 L Oxygen Delivery Method Room Air Room Air Room Air Oxygen Flow Rate Sepsis Recent Fever Within 48 Hours No Sepsis New/Unexplained Change in Mental Status N/A Sepsis Action Taken by Nursing No Action Required Oxygen Flow Rate - Titration 2 Pulse Oximetry Post Tiitration 95 01/28/25 15:38 01/28/25 16:15 01/28/25 16:30 Temperature Temperature Source Pulse Rate 74 Pulse Rate from SpO2 Sensor Respiratory Rate 26 H Respiratory Effort / Characteristics Respiratory Depth Respiratory Pattern Blood Pressure 131/65 119/64 Blood Pressure Mean 98 86 Pulse Oximetry 98 95 Oxygen Delivery Method Nasal Cannula Nasal Cannula Oxygen Flow Rate 2 2 Sepsis Recent Fever Within 48 Hours Sepsis New/Unexplained Change in Mental Status Sepsis Action Taken by Nursing Oxygen Flow Rate - Titration Pulse Oximetry Post Tiitration 01/28/25 17:00 01/28/25 17:29 01/28/25 17:30 Temperature Temperature Source Pulse Rate 62 55 L Pulse Rate from SpO2 Sensor Respiratory Rate 28 H 26 H Respiratory Effort / Characteristics Respiratory Depth Respiratory Pattern Blood Pressure 132/71 145/70 H Blood Pressure Mean 96 116 Pulse Oximetry 100 100 91 Oxygen Delivery Method Nasal Cannula Nasal Cannula Nasal Cannula Oxygen Flow Rate 2 2 2 Sepsis Recent Fever Within 48 Hours Sepsis New/Unexplained Change in Mental Status Sepsis Action Taken by Nursing Oxygen Flow Rate - Titration 0 Pulse Oximetry Post Tiitration 89 L 01/28/25 18:00 01/28/25 18:05 01/28/25 18:32 Temperature Temperature Source Pulse Rate 57 L 58 L Pulse Rate from SpO2 Sensor 63 60 Respiratory Rate 28 H 29 H Respiratory Effort / Characteristics Respiratory Depth Respiratory Pattern Blood Pressure 137/84 140/90 Blood Pressure Mean 101 106 Pulse Oximetry 88 L 95 95 Oxygen Delivery Method Nasal Cannula Oxymask Oxymask Oxymask Oxygen Flow Rate 2 3 3 Sepsis Recent Fever Within 48 Hours Sepsis New/Unexplained Change in Mental Status Sepsis Action Taken by Nursing Oxygen Flow Rate - Titration 3 Pulse Oximetry Post Tiitration 92 01/28/25 19:00 01/28/25 19:14 01/28/25 19:30 Temperature Temperature Source Pulse Rate 61 70 66 Pulse Rate from SpO2 Sensor Respiratory Rate 24 26 H Respiratory Effort / Characteristics Respiratory Depth Respiratory Pattern Blood Pressure 137/85 143/63 H Blood Pressure Mean 115 86 Pulse Oximetry 98 99 Oxygen Delivery Method Oxymask Oxymask Oxygen Flow Rate 3 3 Sepsis Recent Fever Within 48 Hours Sepsis New/Unexplained Change in Mental Status Sepsis Action Taken by Nursing Oxygen Flow Rate - Titration Pulse Oximetry Post Tiitration Laboratory Data 01/29/25 05:36 01/29/25 05:36 Lab Results 01/28/25 01/28/25 Range/Units 15:30 19:25 WBC 12.15 H (4.8-10.8) K/ul RBC 4.03 L (4.20-5.40) M/uL Hgb 11.3 L (12.0-16.0) g/dl Hct 36.1 L (37.0-47.0) % MCV 89.6 (80.0-100.0) fL MCH 28.0 (25.0-34.0) pg MCHC 31.3 L (32.0-36.0) g/dL RDW Std Deviation 47.2 H (36.4-46.3) fL RDW Coeff of Aspen 14.3 (11.5-14.5) % Plt Count 275 (130-400) K/uL MPV 10.0 (9.4-12.4) fL Immature Gran % (Auto) 0.6 % Neut % (Auto) 69.8 % Lymph % (Auto) 16.6 % Pender % (Auto) 11.0 % Eos % (Auto) 1.6 % Baso % (Auto) 0.4 % Neut # (Auto) 8.48 H (1.40-6.50) K/uL Lymph # (Auto) 2.02 (1.20-3.40) K/uL Pender # (Auto) 1.34 H (0.11-0.59) K/uL Eos # (Auto) 0.19 (0.00-0.50) K/uL Baso # (Auto) 0.05 (0.00-0.20) K/uL Immature Gran # (Auto) 0.07 (0.01-0.20) K/uL Sodium 145 (136-145) mmol/L Potassium 2.9 L (3.5-5.1) mmol/L Chloride 102 (98-107) mmol/L Carbon Dioxide 35 H (21-32) mmol/L Anion Gap 8 (3-11) BUN 18 (6-23) mg/dl Creatinine 0.47 L (0.6-1.2) mg/dl Est Cr Clr Drug Dosing 87.3 ml/min eGFR 93.24 BUN/Creatinine Ratio 38.3 H (10-20) Glucose 123 H (70-99(Fasting)) mg/dl Calcium 10.1 (8.6-10.3) mg/dl Total Bilirubin 0.4 (0.2-1.0) mg/dl AST 25 (13-39) U/L ALT 23 (7-52) U/L Alkaline Phosphatase 96 (34-104) U/L Troponin I High Sens 18.4 H (0-14) pg/ml B-Natriuretic Peptide 296 H (0-100) pg/ml Total Protein 6.5 (6.0-8.3) gm/dl Albumin 3.9 (3.4-5.0) gm/dl Globulin 2.6 (2.5-4.0) gm/dl Albumin/Globulin Ratio 1.5 (0.9-2) Urine Color Yellow Urine Appearance Clear (Clear) Urine pH 6.5 (4.5-7.5) Ur Specific [place] 1.010 (1.000-1.030) Urine Protein Negative (Negative) Urine Glucose (UA) Negative (Negative) Urine Ketones Negative (Negative) Urine Blood Negative (Negative) Urine Nitrite Positive A (Negative) Urine Bilirubin Negative (Negative) Urine Urobilinogen Negative (Negative) Ur Leukocyte Esterase Negative (Negative) Urine WBC (Auto) 0-5 (0-5) /hpf Urine RBC (Auto) 0-2 (0-2) /hpf U Hyaline Cast (Auto) 0-2 (0-2) /lpf U Epithel Cells (Auto) 0-2 (0-2) /hpf Urine Bacteria (Auto) 4+ H (None Seen) Urine Comment Administered Medications Acetaminophen (Acetaminophen 500 Mg Tab) 1,000 mg PO BID@0600,1400 [facility] Stop: 02/28/25 05:59 Last Admin: 01/29/25 14:14 Dose: 1,000 mg Documented By: Admin: 01/29/25 06:06 Dose: 1,000 mg Documented By: TRACEY Amphetamine/Dextroamphetamine (Dextroamphetamine/Amphetamine Ir 10 Mg Tab) 10 mg PO DAILY@1400 [facility] Stop: 02/12/25 13:59 Last Admin: 01/29/25 14:14 Dose: 10 mg Documented By: SIRISHA Amphetamine/Dextroamphetamine (Dextroamphetamine/Amphetamine Ir 10 Mg Tab) 20 mg PO DAILY@0600 [facility] Stop: 02/12/25 05:59 Last Admin: 01/29/25 06:07 Dose: 20 mg Documented By: TRACEY Apixaban (Apixaban 5 Mg Tablet) 5 mg PO BID [facility] Stop: 02/27/25 21:51 Last Admin: 01/29/25 09:41 Dose: 5 mg Documented By: Admin: 01/28/25 23:03 Dose: 5 mg Documented By: TRACEY Ascorbic Acid (Ascorbic Acid 500 Mg Tab) [address] [facility] Stop: 02/28/25 08:59 Last Admin: 01/29/25 09:42 Dose: 500 mg Documented By: SIRISHA Aspirin (Aspirin 81 Mg Ectab) 81 mg PO [facility] Stop: 02/27/25 21:51 Last Admin: 01/28/25 23:03 Dose: 81 mg Documented By: TRACEY Atorvastatin Calcium (Atorvastatin 40 Mg Tab) 40 mg PO [facility] Stop: 02/27/25 21:51 Last Admin: 01/28/25 23:03 Dose: 40 mg Documented By: TRACEY Brimonidine Tartrate (Brimonidine Tartrate 0.2% 5ml) 1 drops OP BID [facility] Stop: 02/27/25 21:51 Last Admin: 01/29/25 09:42 Dose: 1 drops Documented By: Admin: 01/28/25 22:57 Dose: 1 drops Documented By: TRACEY Buspirone HCl (Buspirone 5 Mg Tab) 5 mg PO BID [facility]ES[facility] Stop: 02/27/25 21:51 Last Admin: 01/29/25 09:42 Dose: 5 mg Documented By: Admin: 01/28/25 23:00 Dose: 5 mg Documented By: TRACEY Calcium/Vitamin D (Calcium 600mg + Vit D 400 Iu Tab) 1 tab PO BID KEESHA Stop: 02/27/25 21:51 Last Admin: 01/29/25 09:42 Dose: 1 tab Documented By: Admin: 01/28/25 23:03 Dose: 1 tab Documented By: TRACEY Cyanocobalamin (Cyanocobalamin (B-12) 2,500 Mcg Tablet) 2,500 mcg PO QAM [facility] Stop: 02/28/25 08:59 Last Admin: 01/29/25 09:41 Dose: 2,500 mcg Documented By: SIRISHA Diltiazem HCl (Diltiazem Hcl 180 Mg Capcr) 360 mg PO QAM [facility] Stop: 02/28/25 08:59 Last Admin: 01/29/25 09:41 Dose: 360 mg Documented By: SIRISHA Escitalopram Oxalate (Escitalopram Oxalate 20 Mg Tab) 20 mg PO QAM [facility]ES[facility] Stop: 02/28/25 08:59 Last Admin: 01/29/25 09:41 Dose: 20 mg Documented By: SIRISHA Gabapentin (Gabapentin 400 Mg Cap) 400 mg PO BID [facility]ES[facility] Stop: 02/27/25 21:51 Last Admin: 01/29/25 09:42 Dose: 400 mg Documented By: Admin: 01/28/25 23:03 Dose: 400 mg Documented By: TRACEY Guaifenesin (Guaifenesin 600 Mg Tabcr) 600 mg PO Q6H PRN PRN Reason: Congestion Stop: 02/27/25 21:51 Last Admin: 01/29/25 09:38 Dose: 600 mg Documented By: SIRISHA Hydrocortisone (Hydrocortisone 10 Mg Tab) 10 mg PO DAILY@1400 [facility] Stop: 02/28/25 13:59 Last Admin: 01/29/25 14:14 Dose: 10 mg Documented By: SIRISHA Hydrocortisone (Hydrocortisone 10 Mg Tab) 20 mg PO QAM@0600 [facility] Stop: 02/28/25 05:59 Last Admin: 01/29/25 06:06 Dose: 20 mg Documented By: TRACEY Magnesium Sulfate/Dextrose (Magnesium Sulfate / D5w) 1 gm in 100 mls @ 50 mls/hr IV Q2H KEESHA Stop: 01/29/25 15:59 Last Admin: 01/29/25 13:27 Dose: 50 mls/hr Documented By: SIRISHA Lamotrigine (Lamotrigine 100 Mg Tab) 150 mg PO [facility] Stop: 02/27/25 21:51 Last Admin: 01/28/25 23:01 Dose: 150 mg Documented By: TRACEY Loratadine (Loratadine 10 Mg Tab) 10 mg PO QAM [facility] Stop: 02/28/25 08:59 Last Admin: 01/29/25 09:42 Dose: 10 mg Documented By: SIRISHA Magnesium Oxide (Magnesium Oxide 400 Mg Tab) 400 mg PO QPM [facility] Stop: 02/27/25 21:51 Last Admin: 01/28/25 23:00 Dose: 400 mg Documented By: TRACEY Metoprolol Tartrate (Metoprolol Tartrate 25 Mg Tab) 25 mg PO BID KEESHA Stop: 02/27/25 21:51 Last Admin: 01/29/25 09:38 Dose: 25 mg Documented By: Admin: 01/28/25 23:01 Dose: 25 mg Documented By: TRACEY Montelukast Sodium (Montelukast Sodium 10 Mg Tablet) 10 mg PO [facility] Stop: 02/27/25 21:51 Last Admin: 01/28/25 23:04 Dose: 10 mg Documented By: TRACEY [facility]ivitamins ([facility]ivitamin Tab) [facility] [place]: 02/28/25 08:59 Last Admin: 01/29/25 09:41 Dose: 1 tab Documented By: SIRISHA Oxybutynin Chloride (Oxybutynin Chloride Xl 5 Mg Tabcr) 5 mg [facility] [place]: 02/28/25 08:59 Last Admin: 01/29/25 09:41 Dose: 5 mg Documented By: SIRISHA Pantoprazole Sodium (Pantoprazole 40 Mg Tab) 40 [facility] [place]: 02/28/25 08:59 Last Admin: 01/29/25 09:42 Dose: 40 mg Documented By: SIRISHA Pramipexole Dihydrochloride (Pramipexole Dihydrochlo 0.5 Mg Tab) 0.5 mg PO [facility] Stop: 02/27/25 21:51 Last Admin: 01/28/25 23:00 Dose: 0.5 mg Documented By: TRACEY Timolol Maleate (Timolol Maleate 0.5% Op Soln 5 Ml Btl) 1 drops OP BID [facility] Stop: 02/27/25 21:51 Last Admin: 01/29/25 09:42 Dose: 1 drops Documented By: Admin: 01/28/25 22:56 Dose: 1 drops Documented By: TRACEY Travoprost (Travoprost Z 0.004% Oph Soln 2.5 Ml Btl) 1 drops OPB [facility] Stop: 02/27/25 21:51 Last Admin: 01/28/25 22:43 Dose: 1 drops Documented By: TRACEY Trazodone HCl (Trazodone Hcl 50 Mg Tab) 225 mg PO [facility] Stop: 02/27/25 21:51 Last Admin: 01/28/25 23:04 Dose: 225 mg Documented By: TRACEY Vitamin D (Cholecalciferol 125 Mcg (5,000 Units) Tab) 125 mcg [facility] [place]: 02/28/25 08:59 Last Admin: 01/29/25 09:42 Dose: 125 mcg Documented By: SIRISHA Discontinued Medications Albuterol (Albuterol 0.5% Neb Soln 2.5 Mg/0.5 Ml Vial) 2.5 mg NEB NOW STA; Protocol Stop: 01/28/25 16:20 Last Admin: 01/28/25 16:32 Dose: 2.5 mg Documented By: LOURDES Furosemide (Furosemide 40 Mg/4 Ml Vial) 40 mg IV ONE ONE Stop: 01/28/25 18:07 Last Admin: 01/28/25 18:32 Dose: 40 mg Documented By: LOURDES Magnesium Sulfate/Dextrose (Magnesium Sulfate / D5w) 1 gm in 100 mls @ 50 mls/hr IV ONE ONE Stop: 01/28/25 22:05 Last Infusion: 01/28/25 22:28 Dose: Infused Documented By: Admin: 01/28/25 20:28 Dose: 50 mls/hr Documented By: LOURDES Potassium Chloride (Potassium Chloride Crtab 20 Meq Tabcr) 40 meq PO NOW STA Stop: 01/28/25 16:20 Last Admin: 01/28/25 16:32 Dose: 40 meq Documented By: LOURDES Potassium Chloride (Potassium Chloride Crtab 20 Meq Tabcr) 40 meq PO NOW STA Stop: 01/28/25 19:30 Last Admin: 01/28/25 19:56 Dose: 40 meq Documented By: LUORDES Potassium Chloride (Potassium Chloride Crtab 20 Meq Tabcr) 60 meq PO NOW STA Stop: 01/29/25 08:36 Last Admin: 01/29/25 09:38 Dose: 60 meq Documented By: SIRISHA Potassium Chloride (Potassium Chloride Crtab 20 Meq Tabcr) 40 meq PO NOW STA Stop: 01/29/25 11:47 Last Admin: 01/29/25 13:27 Dose: 40 meq Documented By: SIRISHA Imaging Data Radiologist's Impression: Chest X-Ray 01/28/25 15:38 Clinical History: Dyspnea Technique: A frontal view of the chest was obtained Findings: There are no confluent pulmonary infiltrates. The heart size is at the upper limit of normal. No pleural effusion or pneumothorax is seen. There is no definite pulmonary nodule. No fracture is noted. There is a right shoulder arthroplasty. Impression: No active disease Electronically signed by Jeff Tobin 01-28-2025 4:10 PM Discharge Plan Visit Data Chief Complaint: Shortness of Breath/Dyspnea Stated Complaint: SOB, DIFFICULTY BREATHING ED Provider: Raegan Cabrera Discharge Problem: CHF exacerbation Patient Disposition: Admitted As Inpatient Condition: Fair Discharge Instructions Interventions: ED Discharge Assessment Last Done: 01/28/25 21:07 Discharge Problem: CHF exacerbation Qualifiers: Heart failure type: unspecified Qualified Code(s): I50.9 - Heart failure, unspecified
--- NOTE | 2025-01-28 18:17 | History & Physical Report ---
Date of Service January 28, 2025 Assessment & Plan (1) (HFpEF) heart failure with preserved ejection fraction: (2) Acute and chronic respiratory failure: (3) Hypokalemia: (4) Chronic obstructive pulmonary disease: Plan This patient is an 84-year-old female with a past medical history including permanent atrial fibrillation, lower extremity edema, lumbar radiculopathy, ambulatory dysfunction, right hip osteoarthritis and pain, long-term anticoagulant use, secondary adrenal insufficiency, nocturnal hypoxia requiring 3 L nasal cannula oxygen, COPD, aortic and mitral regurgitation, CAD, esophageal dysphagia, ADHD, benign familial tremor, Raynaud's disease, CKD stage III, depr ession, and asthma who presents with increasing dyspnea on exertion, shortness of breath, lower extremity edema x 1 week. She has been wheezing little bit and feels it is hard to breathe with lying flat. She typically only uses oxygen at night and has been using it during the day as well. She did have an EGD 2 days ago which showed some nonbleeding ulcers and acute gastritis. She went to [facility] today with the same symptoms and was referred to the ED for further evaluation. In the ED, she was found to have worsening hypoxemia, hypokalemia, elevated BNP, and cardiomegaly on chest x-ray. She was given IV Lasix and a nebulizer treatment of albuterol as well as potassium replacement. She will be admitted for acute on chronic heart failure, likely with midrange ejection fraction as per last echo and acute on chronic respiratory failure with hypoxemia. #Acute on chronic HFpEF/permanent atrial fibrillation/nonobstructive CAD-with elevated BNP, peripheral edema, increasing dyspnea on exertion and cardiomegaly on CXR. Last echo with EF 45-50% and mild valvular disease 2023. Likely due to high sodium intake with diet. Blood pressures are modestly elevated - Admit to PCU for telemetry/arrhythmia monitoring - Start Lasix 40 mg IV twice daily - Follow BMP, magnesium and replace electrolytes as needed-give another 40 mEq p.o. of KCl x 1 now for a total of 80 mEq on admission and give 1 g IV magnesium empirically as magnesium level not drawn in ED - Rates and blood pressures are controlled-continue home diltiazem, digoxin, and metoprolol -Daily weights, low-sodium diet, strict I's and O's, fluid restriction 1500 mL/day - Continue aspirin, atorvastatin, and Eliquis #COPD/acute on chronic respiratory failure with hypoxemia-with worsening shortness of breath and hypoxemia-typically wears 3L NC O2 at bedtime but now on it continuously while awake secondary to heart failure - Continue supplemental O2 and wean off to keep pulse ox greater than 89% - Continue home albuterol as needed #Lumbar radiculopathy/ambulatory dysfunction/right hip OA-no acute issues - Continue home gabapentin #Adrenal insufficiency/steroid dependence-no acute issues, blood pressures are mildly elevated - Continue home hydrocortisone twice daily #GERD-no acute issues - Continue PPI #Overactive bladder-no acute issues. UA with 4+ bacteria and nitrate but 0 WBCs-lack of pyuria and no need to treat for any bacteria grows out-would be asymptomatic bacteriuria - Continue home oxybutynin #RLS-no acute issues - Continue home pramipexole #Depression/anxiety/ADHD-no acute issues - Continue trazodone, Lamictal, Lexapro, Adderall, and buspirone #Allergies-no acute issues - Continue home montelukast, loratadine DVT prophylaxis-Eliquis Disposition-admit to PCU. Attempted to call daughter for update at the time of admission and left a voicemail History of Present Illness Chief Complaint: Shortness of breath Primary Care Provider: Faiza Costa MD This patient is an 84-year-old female with a past medical history including permanent atrial fibrillation, lower extremity edema, lumbar radiculopathy, ambulatory dysfunction, right hip osteoarthritis and pain, long-term anticoagulant use, secondary adrenal insufficiency, nocturnal hypoxia requiring 3 L nasal cannula oxygen, COPD, aortic and mitral regurgitation, CAD, esophageal dysphagia, ADHD, benign familial tremor, Raynaud's disease, CKD stage III, depression, and asthma who presents with increasing dyspnea on exertion, shortness of breath, lower extremity edema x 1 week. She has been wheezing little bit and feels it is hard to breathe with lying flat. She typically only uses oxygen at night and has been using it during the day as well. She did have an EGD 2 days ago which showed some nonbleeding ulcers and acute gastritis. [facility] with the same symptoms and was referred to the ED for further evaluation. In the ED, she was found to have worsening hypoxemia, hypokalemia, elevated BNP, and cardiomegaly on chest x-ray. She was given IV Lasix and a nebulizer treatment of albuterol as well as potassium replacement. She will be admitted for acute on chronic heart failure, likely with midrange ejection fraction as per last echo and acute on chronic respiratory failure with hypoxemia. Allergies Allergy/AdvReac Type Severity Reaction Status Date / Time procaine Allergy Severe novacaine Verified 01/28/25 13:19 - anaphylaxis, mouth swelling, dyspnea chocolate flavor Allergy Intermediate hx rash Verified 01/28/25 13:19 Penicillins Allergy Unknown per Verified 01/28/25 13:19 allergy test azithromycin AdvReac Intermediate throat Verified 01/28/25 13:19 burned, lost weight fluticasone AdvReac Intermediate chest pain Verified 01/28/25 13:19 (from Advair) moxifloxacin AdvReac Intermediate N/V Verified 01/28/25 13:19 salmeterol AdvReac Intermediate chest pain Verified 01/28/25 13:19 (from Advair) zolpidem AdvReac Intermediate sleep Verified 01/28/25 13:19 walking NSAIDS (Non-Steroidal AdvReac Unknown advised to Verified 01/28/25 13:19 Anti-Inflamma avoid d/t ulcer hx Home Medications Medication Instructions Recorded Confirmed Type psyllium seed (sugar) oral powder 1 tbsp PO QPM PRN Constipation 03/03/20 01/28/25 History (Metamucil (sugar) oral powder) aspirin 81 mg tablet,delayed 81 mg PO HS #30 tabs 08/18/20 01/28/25 Rx release multivitamin 1 tab PO QAM #30 tabs 09/13/20 01/28/25 Rx Scooter #1 ea 04/03/21 01/28/25 Rx travoprost 0.004 % eye drops 1 drp OPB HS 05/03/21 01/28/25 History ascorbic acid (vitamin C) 500 mg 500 mg PO QAM 11/12/22 01/28/25 History tablet (Vitamin C) biotin 10 mg tablet 10 mg PO QAM 11/12/22 01/28/25 History guaifenesin 600 mg tablet, 600 mg PO Q6H PRN Congestion 11/12/22 01/28/25 History extended release 12 hr (Mucinex) nebulizer accessories #2 ea 03/31/23 01/28/25 Rx nebulizers #1 ea 03/31/23 01/28/25 Rx cyanocobalamin (vitamin B-12) 2,500 mcg PO QAM 05/06/23 01/28/25 History 2,500 mcg tablet buspirone 5 mg tablet 5 mg PO BID Anxiety 02/18/24 01/28/25 History albuterol sulfate 2.5 mg/3 mL 3 mg inhalation Q6 PRN asthma 02/20/24 01/28/25 History (0.083 %) solution for nebulization attacks albuterol sulfate 90 mcg/actuation 2 puff inhalation Q4 PRN asthma 02/20/24 01/28/25 History aerosol inhaler (Ventolin HFA) loratadine 10 mg tablet 10 mg PO QAM 02/20/24 01/28/25 History pramipexole 0.5 mg tablet 0.5 mg PO HS #90 tabs 05/17/24 01/28/25 Rx brimonidine 0.2 %-timolol 0.5 % 1 drp OPB BID 06/14/24 01/28/25 History eye drops (Combigan) escitalopram oxalate 20 mg tablet 20 mg PO QAM #0 tabs 06/18/24 01/28/25 Rx (Lexapro) Wheeled Walker #1 ea 07/08/24 01/28/25 Rx diaper,brief,adult,disposable #6 ea 08/06/24 01/28/25 Rx (Select Disposable Briefs) calcium 600 mg (as 1 tab PO BID 09/23/24 01/28/25 History carbonate)-vitamin D3 10 mcg (400 unit) tablet (Calcium 600 + D(3)) cholecalciferol (vitamin D3) 125 125 mcg PO QAM 09/23/24 01/28/25 History mcg (5,000 unit) tablet (Vitamin D3) dextroamphetamine-amphetamine 10 20 mg PO DAILY@0600 09/23/24 01/28/25 History mg tablet diltiazem HCl 180 mg capsule,24 360 mg PO QAM 09/23/24 01/28/25 History hr,extended release lamotrigine 150 mg tablet 150 mg PO HS 09/23/24 01/28/25 History zinc gluconate 50 mg tablet 50 mg PO QAM 09/23/24 01/28/25 History gabapentin 400 mg capsule 400 mg PO BID #60 caps 10/08/24 01/28/25 Rx magnesium oxide 400 mg PO QPM #90 tabs 10/22/24 01/28/25 Rx atorvastatin 40 mg tablet (Lipitor) 40 mg PO HS #90 tabs 12/16/24 01/28/25 Rx digoxin 125 mcg (0.125 mg) tablet 125 mcg PO QAM #90 tabs 12/16/24 01/28/25 Rx montelukast 10 mg tablet 10 mg PO HS #90 tabs 12/16/24 01/28/25 Rx (Singulair) oxybutynin chloride 5 mg 5 mg PO QAM #90 tabs 12/16/24 01/28/25 Rx tablet,extended release 24 hr pantoprazole 40 mg tablet,delayed 40 mg PO QAM #90 tabs 12/16/24 01/28/25 Rx release (Protonix) acetaminophen 500 mg tablet 1,000 mg PO BID Pain 12/23/24 01/28/25 History (Tylenol Extra Strength) vitamin E 268 mg (400 unit) capsule 800 mg PO DAILY 12/23/24 01/28/25 History metoprolol tartrate 25 mg tablet 25 mg PO BID #60 tabs 12/24/24 01/28/25 Rx Oxygen Home 01/05/25 01/28/25 History dextroamphetamine-amphetamine 10 10 mg PO DAILY@1400 01/05/25 01/28/25 History mg tablet (Adderall) hydrocortisone 10 mg tablet 10 mg PO .Daily @ 1400 01/05/25 01/28/25 History hydrocortisone 10 mg tablet 20 mg PO QAM@0600 01/05/25 01/28/25 History naloxone 4 mg/actuation nasal 4 mg intranasal Q3M PRN opioid 01/05/25 01/28/25 Rx spray (Narcan) overdose #2 ea omeprazole 40 mg capsule,delayed 40 mg PO QAM #30 caps 01/05/25 01/28/25 Rx release apixaban 5 mg tablet (Eliquis) 5 mg PO BID #60 tabs 01/12/25 01/28/25 Rx trazodone 150 mg tablet 225 mg PO HS 01/21/25 01/28/25 History Past Med/Surg History Problem List (Updated 01/28/25 @ 19:49 by Adriana Loza MD) Acute and chronic respiratory failure Hypokalemia (Acute) (HFpEF) heart failure with preserved ejection fraction Dysphagia Lumbar disc herniation with radiculopathy Calcification of intervertebral cartilage or disc of lumbar region Right lumbar radiculopathy Abnormal finding on CT scan (Acute) Pain in right lumbar region of back (Acute) Chronic right hip pain (Acute) Greater trochanteric bursitis of right hip Rotator cuff arthropathy of left shoulder Secondary adrenal insufficiency Anticoagulant long-term use Leg length discrepancy Adrenal insufficiency Hypercalcemia Orthostatic hypotension Nocturnal hypoxia o2 3L HS. Fracture of acromion of scapula (06/14/24) Acute fracture at the base of the acromion from a fall. Atrial fibrillation Ambulatory dysfunction Recurrent falls Contusion of knee, right (Acute) Generalized weakness (Acute) Obstructive lung disease Acromioclavicular joint arthritis Rotator cuff arthropathy of right shoulder Left ventricular systolic dysfunction Mitral regurgitation Aortic regurgitation Prediabetes Nonobstructive atherosclerosis of coronary artery Glenohumeral arthritis SI (sacroiliac) joint dysfunction Osteoarthritis of ankle, left CAD (coronary artery disease) Mild- luminal irregularities only on 2003 cardiac cath Esophageal dysphagia Chronic constipation with overflow incontinence ADHD Stable Chronic obstructive pulmonary disease stable Allergic rhinitis (Chronic) Anxiety disorder (Chronic) follows with psych Benign familial tremor (Chronic) Cervicalgia (Chronic) Former smoker (Chronic) Fusion of spine, lumbar region (Chronic) Glaucoma (Chronic) Hyperlipidemia (Chronic) Raynaud's disease (Chronic) Rectocele (Chronic) Restless legs syndrome (Chronic) SNHL (sensorineural hearing loss) (Chronic) Solitary pulmonary nodule (Chronic) Urge incontinence of urine (Chronic) Vitamin D deficiency (Chronic) Hypomagnesemia (Chronic) CKD (chronic kidney disease) stage 3, GFR 30-59 ml/min (Chronic) Depression (Chronic) Anemia (Chronic) Asthma (Chronic) Lumbar stenosis with neurogenic claudication (Chronic) Medical History History of recent hospitalization [facility] 12/28-12/29: dx acute parotitis L side, submandibular gland infection; tx with IV abx and home on oral abx; pt states on 01/21/25 sx resolved Raynauds disease Benign familial tremor Ambulatory dysfunction pt states uses cane/walker; worst in AM R groin/RUE pain as well as LBP Right groin pain Lumbar radiculopathy Nocturnal hypoxia 3L O2 HS Secondary adrenal insufficiency daily steroid ADHD Atrial fibrillation Acute parotitis Submandibular gland infection Scapular fracture (06/14/24) Acute fracture at the base of the acromion from a fall. Pre-diabetes CKD (chronic kidney disease) pt denies Mitral regurgitation Left ventricular systolic dysfunction EF 45-50% on 03/2023 echo; > 55% 12/2023 stress echo CAD (coronary artery disease) mild in 2003 per [place] [facility] records Aortic regurgitation mild to moderate on 03/2023 echo Esophageal dysphagia Asthma COPD (chronic obstructive pulmonary disease) Anxiety Raynauds disease Acid reflux controlled, stable per pt Tremor hands History of gastric ulcer History of sepsis (2022) History of skin cancer removed Difficult intravenous access Rectocele Arthritis of neck mild limitation rom. 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 Rheumatoid arthritis (02/25/13) previously followed with Rheumatology but no longer following Surgical History Status post reverse total replacement of right shoulder (~03/2024) History of lumbar fusion x2 most recent [address] Dr. Lerma History of foot surgery toes on left foot - pt confirms a total of 4 left foot surgeries. History of foot surgery left removal of bone spur S/P foot surgery, left LEFT FOOT LITTLE TOE AMPUTATED 2022. S/P foot surgery, left left ankle/foot reconstruction (2019) History of total hip arthroplasty right hip H/O toe surgery left foot History of total knee replacement bilateral; right TKA: 05/22/17: SAB x1 at L3-L4 + PNB at [facility] S/P hardware removal right ankle S/P laparotomy removed adhesions to relieve bowel strangulation S/P ankle arthrodesis right ankle History of open reduction and internal fixation (ORIF) procedure right ankle H/O elbow surgery bilateral S/P AMANDA (total abdominal hysterectomy) H/O thumb surgery right x2 History of appendectomy History of colonoscopy History of esophagogastroduodenoscopy (EGD) History of surgical removal of skin lesion History of tonsillectomy Family History Family/Other Coronary heart disease Heart disease Cancer Hypertension Brother Prostate cancer Benign familial tremor Father Benign familial tremor Mother Malignant melanoma Aunt Rheumatoid arthritis Other No family history of adverse response to anesthesia Denies family history of Ovarian cancer Myocardial infarction Breast cancer Colorectal cancer Social History Smoking Status: Former smoker Tobacco Type: Cigarettes Age Started Using Tobacco: 19 (intermittently quit throughout the years); Age Quit Using Tobacco: 81; packs per day: 0.1; Cigarettes Per Day: 2; Second Hand Exposure: No; Do You Dip or Chew Tobacco: No; Hx Alcohol Use: Yes Alcohol type: beer Alcohol Intake Frequency: Monthly or Less Alcohol Intake Frequency Comment: rarely Hx Substance Use: No Preferred Language: Romansh Communication Ability: Effective Visual Impairment: No Limitations Hearing Ability: Hard of Hearing Occupational Health Nurse Supervisor Required: No Beliefs That Will Affect Care: None marital status: Current Living Situation: Alone Current Living Situation Comment: apartment building 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al status: retired 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: 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[employer], 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 How many Children do You have: 2 Feels Safe at Home: Yes Childhood Exposure to Second-Hand Smoke: No Diet: regular caffeine: Yes during the past year weight has: remained stable Dental Care, Regularly: No Physical Activity Frequency: Daily Seatbelt Use: always Sunscreen Use: Yes (sometimes ) Assistive Devices: Cane, Denture - Upper, Denture - Lower, Glasses, Hearing Aid - Bilateral, Oxygen - at Night and Walker Review of Systems Review of Systems: All systems reviewed & are unremarkable except as noted in HPI & below Physical Exam Constitutional: WD/WN, vitals as above Eyes: + anicteric sclerae Respiratory: normal respiratory effort; no cough Auscultation: + wheezes (Pain expiratory wheeze bilaterally); no rales and no rhonchi Cardiovascular: Rate/Rhythm: regular rate and + irregularly irregular Heart Sounds: no murmur Extremities: + edema (1+ pitting edema right greater than left legs) Gastrointestinal (Abdomen): normal bowel sounds, soft, nontender, no hepatosplenomegaly Skin: no rashes, warm and dry Psychiatric: A+Ox3, euthymic affect Results & Data Results & Data Vital Signs (Past 12 Hours) Vital Signs Temp Pulse Resp BP Pulse Ox O2 Del Method O2 Flow Rate 01/28/25 18:00 88 L Nasal Cannula, Oxymask 2 01/28/25 17:30 55 L 26 H 145/70 H 91 Nasal Cannula 2 01/28/25 17:29 100 Nasal Cannula 2 01/28/25 17:00 62 28 H 132/71 100 Nasal Cannula 2 01/28/25 16:30 74 26 H 119/64 95 Nasal Cannula 2 01/28/25 16:15 131/65 01/28/25 15:38 98 Nasal Cannula 2 01/28/25 15:23 89 L Room Air 01/28/25 15:23 Room Air 01/28/25 15:17 36.4 C L 75 20 133/59 L 92 Room Air Laboratory Results CBC, CMP, BNP reviewed Diagnostic Findings Chest X-Ray 01/28/25 15:38 Clinical History: Dyspnea Technique: A frontal view of the chest was obtained Findings: There are no confluent pulmonary infiltrates. The heart size is at the upper limit of normal. No pleural effusion or pneumothorax is seen. There is no definite pulmonary nodule. No fracture is noted. There is a right shoulder arthroplasty. Impression: No active disease at 1524 with atrial fibrillation, rate 68, artifact but likely some chronic flattening of T waves in the anterolateral leads which is unchanged from previous Code Status & VTE Plan Code Status Full code VTE Prophylaxis Plan VTE Prophylaxis will be ordered: Yes PG Care Time/CCT Total # of Minutes Spent Total Time Spent with Patient: Total time spent is greater than 50% in coordination of care (as documented) at patient's floor/unit and/or counseling patient: Coding Level of Care Code 42977 INT INP/OBS CARE 3/75MIN Diagnoses (HFpEF) heart failure with preserved ejection fraction I50.30 Acute and chronic respiratory failure J96.20 Hypokalemia E87.6 Chronic obstructive pulmonary disease J44.9
[2025-01-28] MEDS: FUROSEMIDE 40 MG/4 ML VIAL IV ONE (18:32)
[2025-01-28 19:50] LABS: Appearance Urine Clear (Clear); Bacteria Urine Automated 4+ (None Seen); Cast Urine Automated 0-2 /lpf (0-2); Epithelial Cell Urine Auto 0-2 /hpf (0-2); Glucose Urine UA Negative (Negative); RBC Urine Automated 0-2 /hpf (0-2); WBC Urine Automated 0-5 /hpf (0-5)
[2025-01-28] MEDS: MAGNESIUM SULFATE / D5W 1 GM/100 ML BAG IV ONE (20:28)
[2025-01-28] MEDS ORDERED: ONDANSETRON INJ 2 MG/ML 2 ML VIAL IV PRN (21:52)
[2025-01-28] MEDS ORDERED: POLYETHYLENE (MIRALAX) 17 GM PACK PO PRN (21:52)
[2025-01-28] MEDS ORDERED: ALBUTEROL 0.083% NEBU SOLN 3 ML VIAL INH PRN (21:52)
[2025-01-28] MEDS: TRAVOPROST Z 0.004% OPH SOLN 2.5 ML BTL OPB SCH (22:43)
[2025-01-28] MEDS: TIMOLOL MALEATE 0.5% OP SOLN 5 ML BTL OP SCH (22:56)
[2025-01-28] MEDS: BRIMONIDINE TARTRATE 0.2% 5ML OP SCH (22:57)
[2025-01-28] MEDS: MAGNESIUM OXIDE 400 MG TAB PO SCH (23:00)
[2025-01-28] MEDS: busPIRone 5 MG TAB PO SCH (23:00)
[2025-01-28] MEDS: PRAMIPEXOLE DIHYDROCHLO 0.5 MG TAB PO SCH (23:00)
[2025-01-28] MEDS: METOPROLOL TARTRATE 25 MG TAB PO SCH (23:01)
[2025-01-28] MEDS: lamoTRIgine 100 MG TAB PO SCH (23:01)
[2025-01-28] MEDS: CALCIUM 600MG + VIT D 400 IU TAB PO SCH (23:03)
[2025-01-28] MEDS: APIXABAN 5 MG TABLET PO SCH (23:03)
[2025-01-28] MEDS: ATORVASTATIN 40 MG TAB PO SCH (23:03)
[2025-01-28] MEDS: ASPIRIN 81 MG ECTAB PO SCH (23:03)
[2025-01-28] MEDS: GABAPENTIN 400 MG CAP PO SCH (23:03)
[2025-01-28] MEDS: MONTELUKAST SODIUM 10 MG TABLET PO SCH (23:04)
[2025-01-29] MEDS: HYDROCORTISONE 10 MG TAB PO SCH ×2 (06:06→14:14)
[2025-01-29] MEDS: ACETAMINOPHEN 500 MG TAB PO SCH (06:06)
[2025-01-29] MEDS: DEXTROAMPHETAMINE/AMPHETAMINE IR 10 MG TAB PO SCH ×2 (06:07→14:14)
[2025-01-29 06:27] LABS: Hematocrit (blood only) 33.9 % (37.0-47.0); Hemoglobin 10.8 g/dl (12.0-16.0); Immature Granulocytes # (auto) 0.05 K/uL (0.01-0.20); Immature Granulocytes % (auto) 0.5 %; Mean Corpuscular Hemoglobin 28.4 pg (25.0-34.0); Mean Corpuscular Volume 89.2 fL (80.0-100.0); Platelet Count 218 K/uL (130-400); RDW Standard Deviation 46.6 fL (36.4-46.3); Red Blood Count 3.80 M/uL (4.20-5.40); White Blood Count 10.89 K/ul (4.8-10.8)
--- NOTE | 2025-01-29 06:49 | Electrocardiogram Report ---
Test Reason : Blood Pressure : */* mmHG Vent. Rate : 68 BPM Atrial Rate : 72 BPM P-R Int : * ms QRS Dur : 90 ms QT Int : 464 ms P-R-T Axes : * 26 164 degrees QTcB Int : 494 ms Atrial fibrillation with premature ventricular or aberrantly conducted complexes Nonspecific ST and T wave abnormality Prolonged QT Abnormal ECG When compared with ECG of 23-Dec-2024 18:11, Premature ventricular complexes are now Present Confirmed by Julio Cantu ([id number]) on 01/29/2025 6:48:41 AM Referred By: Confirmed By: Julio Cantu
[2025-01-29 06:55] LABS: Anion Gap 5.0 (3-11); Blood Urea Nitrogen 15.0 mg/dl (6-23); Calcium 9.7 mg/dl (8.6-10.3); Carbon Dioxide 39.0 mmol/L (21-32); Chloride 102.0 mmol/L (98-107); Creatinine Clr Calc Pharmacy 82.0 ml/min; Glucose 110.0 mg/dl (70-99(Fasting)); Potassium 3.0 mmol/L (3.5-5.1); Sodium 146.0 mmol/L (136-145)
[2025-01-29] MEDS ORDERED: FUROSEMIDE 40 MG/4 ML VIAL IV SCH (09:00)
[2025-01-29 09:22] LABS: Magnesium 1.7 mg/dl (1.7-2.4)
[2025-01-29] MEDS: guaiFENesin 600 MG TABCR PO PRN (09:38)
[2025-01-29] MEDS: POTASSIUM CHLORIDE CRTAB 20 MEQ TABCR PO STA ×2 (09:38→13:27)
[2025-01-29] MEDS: CYANOCOBALAMIN (B-12) 2,500 MCG TABLET PO SCH (09:41)
[2025-01-29] MEDS: OXYBUTYNIN CHLORIDE XL 5 MG TABCR PO SCH (09:41)
[2025-01-29] MEDS: ESCITALOPRAM OXALATE 20 MG TAB PO SCH (09:41)
[2025-01-29] MEDS: MULTIVITAMIN TAB PO SCH (09:41)
[2025-01-29] MEDS: ASCORBIC ACID 500 MG TAB PO SCH (09:42)
[2025-01-29] MEDS: LORATADINE 10 MG TAB PO SCH (09:42)
[2025-01-29] MEDS: CHOLECALCIFEROL 125 MCG (5,000 UNITS) TAB PO SCH (09:42)
[2025-01-29] MEDS: MAGNESIUM SULFATE / D5W 1 GM/100 ML BAG IV SCH (13:27)
[2025-01-29] MEDS: DIGOXIN 0.125 MG TAB PO SCH (15:26)
--- NOTE | 2025-01-29 19:58 | Hospitalist Progress Note ---
Date of Service January 29, 2025 Assessment & Plan (1) (HFpEF) heart failure with preserved ejection fraction: (2) Acute and chronic respiratory failure: (3) Hypokalemia: (4) Chronic obstructive pulmonary disease: Plan This patient is an 84-year-old female with a past medical history including permanent atrial fibrillation, lower extremity edema, lumbar radiculopathy, ambulatory dysfunction, right hip osteoarthritis and pain, long-term anticoagulant use, secondary adrenal insufficiency, nocturnal hypoxia requiring 3 L nasal cannula oxygen, COPD, aortic and mitral regurgitation, CAD, esophageal dysphagia, ADHD, benign familial tremor, Raynaud's disease, CKD stage III, depr ession, and asthma who presents with increasing dyspnea on exertion, orthopnea, shortness of breath, lower extremity edema x 1 week. She is admitted for acute on chronic heart failure, likely with midrange ejection fraction as per last echo and acute on chronic respiratory failure with hypoxemia. #Acute on chronic HFpEF/permanent atrial fibrillation/nonobstructive CAD/hypokalemia-with elevated BNP, peripheral edema, increasing dyspnea on exertion and cardiomegaly on CXR. Last echo with EF 45-50% and mild valvular disease 2023. Likely due to high sodium intake with diet. Blood pressures are modestly elevated. Much improved with IV Lasix x 2 doses and now sodium up to 146. Remains with hypokalemia. I's and O's not accurately recorded but weight is down 3 kg. Echo is pending. Rates are controlled in A-fib - Continued stay on PCU for telemetry/arrhythmia monitoring - DC IV Lasix and start Bumex 1 mg p.o. daily in the morning - Follow BMP, magnesium and replace electrolytes as needed-give another 100 mEq p.o. of KCl today and give 2 g IV magnesium to optimize - Rates and blood pressures are controlled-continue home diltiazem, digoxin, and metoprolol -Daily weights, low-sodium diet, strict I's and O's, fluid restriction 1500 mL/day - Continue aspirin, atorvastatin, and Eliquis #COPD/acute on chronic respiratory failure with hypoxemia-with worsening shortness of breath and hypoxemia-typically wears 3L NC O2 at bedtime but now on it continuously while awake secondary to heart failure on admission-now weaned to room air at rest which is an improvement - Continue supplemental O2 as needed to keep pulse ox greater than 89% - Continue home albuterol as needed #Lumbar radiculopathy/ambulatory dysfunction/right hip OA-no acute issues - Continue home gabapentin #Adrenal insufficiency/steroid dependence-no acute issues, blood pressures are mildly elevated - Continue home hydrocortisone twice daily #GERD-no acute issues - Continue PPI #Overactive bladder-no acute issues. UA with 4+ bacteria and nitrate but 0 WBCs-lack of pyuria and no need to treat for any bacteria grows out-would be asymptomatic bacteriuria - Continue home oxybutynin #RLS-no acute issues - Continue home pramipexole #Depression/anxiety/ADHD-no acute issues - Continue trazodone, Lamictal, Lexapro, Adderall, and buspirone #Allergies-no acute issues - Continue home montelukast, loratadine DVT prophylaxis-Eliquis Disposition-continued stay PCU, improving, possible discharge to home on 01/30. PT/OT consults placed Admission and Anticipated Discharge Date Admission Date: January 28, 2025 Subjective Patient feeling overall better today, less short of breath. She is able to ambulate around the room without difficulty. She was weaned off O2 to room air while awake. She is moving her bowels. She is not making a lot of urine. Her I's and O's are not being accurately recorded. Telemetry with atrial fibrillation and PVCs with rates in the 60s to 80s Physical Exam Constitutional: WD/WN, vitals as above Eyes: + anicteric sclerae Respiratory: normal respiratory effort; no cough Auscultation: lungs clear to auscultation bilaterally Cardiovascular: Rate/Rhythm: regular rate and + irregularly irregular Heart Sounds: no murmur Extremities: + edema (Trace pitting edema right greater than left legs-much improved) Gastrointestinal (Abdomen): normal bowel sounds, soft, nontender, no hepatosplenomegaly Skin: no rashes, warm and dry Psychiatric: A+Ox3, euthymic affect Results & Data Results & Data Vital Signs (Past 12 Hours) Vital Signs Temp Pulse Pulse Resp BP Pulse Ox O2 Del Method 01/29/25 16:03 72 01/29/25 15:26 86 01/29/25 15:18 36.8 C 91 H 18 149/84 H 92 Room Air 01/29/25 13:08 Oxymask 01/29/25 12:24 73 09/13/25 11:44 36.8 C 87 18 150/73 H 95 Oxymask O2 Flow Rate 01/29/25 16:03 01/29/25 15:26 01/29/25 15:18 01/29/25 13:08 3 01/29/25 12:24 01/29/25 11:44 3 Laboratory Results CBC, BMP, troponin, magnesium reviewed PG Care Time/CCT Total # of Minutes Spent Total Time Spent with Patient: Total time spent is greater than 50% in coordination of care (as documented) at patient's floor/unit and/or counseling patient: Coding Level of Care Code 21311 SUB INP/OBS CARE 350MIN Diagnoses (HFpEF) heart failure with preserved ejection fraction I50.30 Acute and chronic respiratory failure J96.20 Hypokalemia E87.6 Chronic obstructive pulmonary disease J44.9
[2025-01-29 23:57] VITALS: RESP 18
[2025-01-30] MEDS: ALBUTEROL 0.083% NEBU SOLN 3 ML VIAL ONE (07:11)
--- NOTE | 2025-01-30 07:21 | XCELERA ---
[id number]
[2025-01-30 08:22] LABS: Anion Gap 4.0 (3-11); Blood Urea Nitrogen 14.0 mg/dl (6-23); Calcium 10.4 mg/dl (8.6-10.3); Carbon Dioxide 40.0 mmol/L (21-32); Chloride 100.0 mmol/L (98-107); Creatinine Clr Calc Pharmacy 90.5 ml/min; Glucose 130.0 mg/dl (70-99(Fasting)); Magnesium 1.5 mg/dl (1.7-2.4); Potassium 3.9 mmol/L (3.5-5.1); Sodium 144.0 mmol/L (136-145)
[2025-01-30] MEDS: POTASSIUM CHLORIDE 10 MEQ TABCR PO SCH (10:49)
[2025-01-30] MEDS: BUMETANIDE 1 MG TAB PO SCH (10:52)
[2025-01-30] MEDS: MAGNESIUM SULFATE / D5W 1 GM/100 ML BAG IV SCH (10:53)
[2025-01-30 11:26] VITALS: BP 155/70; TEMP 98.2
--- NOTE | 2025-01-30 13:11 | Discharge Summary ---
Discharge Summary Date of Service January 30, 2025 Principal Dx & Hospital Course #1 = Principal Diagnosis (1) (HFpEF) heart failure with preserved ejection fraction: (2) Acute and chronic respiratory failure: (3) Hypokalemia: (4) Chronic obstructive pulmonary disease: Plan This patient is an 84-year-old female with a past medical history including permanent atrial fibrillation, lower extremity edema, lumbar radiculopathy, ambulatory dysfunction, right hip osteoarthritis and pain, long-term anticoagulant use, secondary adrenal insufficiency, nocturnal hypoxia requiring 3 L nasal cannula oxygen, COPD, aortic and mitral regurgitation, CAD, esophageal dysphagia, ADHD, benign familial tremor, Raynaud's disease, CKD stage III, depression, and asthma who presents with increasing dyspnea on exertion, orthopnea, shortness of breath, lower extremity edema x 1 week. She was admitted for acute on chronic heart HFpEF and acute on chronic respiratory failure with hypoxemia. #Acute on chronic HFpEF/permanent atrial fibrillation/nonobstructive CAD/hypokalemia-with elevated BNP, peripheral edema, increasing dyspnea on exertion and cardiomegaly on CXR. Last echo with EF 45-50% and mild valvular disease 2023. Echo here now with EF 50-55%, mild AI, and mild pulmonary HTN. Heart failure exacerbation likely due to high sodium intake with diet. Blood pressures are modestly elevated. Much improved with IV Lasix x 2 doses and converted to p.o. Bumex as she reports that furosemide in the past has not made her urinate larger volumes. She had hypokalemia and hypomagnesemia-electrolytes were replaced and should continue with replacement on discharge. Rates are controlled in A-fib -Continue Bumex 1 mg p.o. daily in the morning - Follow BMP, magnesium in 1-2 weeks as an outpatient - Increase home magnesium to 400 mg p.o. twice daily, start KCl 10 mEq p.o. once daily and adjust as needed as an outpatient - Rates and blood pressures are controlled-continue home diltiazem, digoxin, and metoprolol -Counseled on Daily weights, low-sodium diet education provided, and fluid restriction 1500 mL/day - Continue aspirin, atorvastatin, and Eliquis #COPD/acute on chronic respiratory failure with hypoxemia-with worsening shortness of breath and hypoxemia-typically wears 3L NC O2 at bedtime but now on it continuously while awake secondary to heart failure on admission-now weaned to room air at rest which is an improvement, however on a two-step walk test she needs 2 LNC O2 with exertion on discharge -Home portable oxygen arranged at the time of discharge - Continue home albuterol as needed #Lumbar radiculopathy/ambulatory dysfunction/right hip OA-no acute issues - Continue home gabapentin #Adrenal insufficiency/steroid dependence-no acute issues, blood pressures are mildly elevated - Continue home hydrocortisone twice daily #GERD-no acute issues - Continue PPI-of note, both omeprazole and pantoprazole were on her home medication list-I have discontinued the omeprazole #Overactive bladder-no acute issues. UA with 4+ bacteria and nitrate but 0 W BCs-lack of pyuria and no need to treat for the Citrobacter from day that grew in urine culture as this is asymptomatic bacteriuria - Continue home oxybutynin #RLS-no acute issues - Continue home pramipexole #Depression/anxiety/ADHD-no acute issues - Continue trazodone, Lamictal, Lexapro, Adderall, and buspirone #Allergies-no acute issues - Continue home montelukast, loratadine DVT prophylaxis-Eliquis Disposition-doing well, stable for discharge to home with home health as per recommendation of PT Notes For Next Care Provider Check BMP and magnesium level in 1-2 weeks Medication Changes From Visit See medication list Admission HPI Per Admitting Provider This patient is an 84-year-old female with a past medical history including permanent atrial fibrillation, lower extremity edema, lumbar radiculopathy, ambulatory dysfunction, right hip osteoarthritis and pain, long-term a nticoagulant use, secondary adrenal insufficiency, nocturnal hypoxia requiring 3 L nasal cannula oxygen, COPD, aortic and mitral regurgitation, CAD, esophageal dysphagia, ADHD, benign familial tremor, Raynaud's disease, CKD stage III, depression, and asthma who presents with increasing dyspnea on exertion, shortness of breath, lower extremity edema x 1 week. She has been wheezing little bit and feels it is hard to breathe with lying flat. She typically only uses oxygen at night and has been using it during the day as well. She did have an EGD 2 days ago which showed some nonbleeding ulcers and acute gastritis. She went to express care today with the same symptoms and was referred to the ED for further evaluation. In the ED, she was found to have worsening hypoxemia, hypokalemia, elevated BNP, and cardiomegaly on chest x-ray. She was given IV Lasix and a nebulizer treatment of albuterol as well as potassium replacement. She will be admitted for acute on chronic heart failure, likely with midrange ejection fraction as per last echo and acute on chronic respiratory failure with hypoxemia. Discharge Exam Constitutional WD/WN, vitals as above Eyes + anicteric sclerae Respiratory normal respiratory effort, lungs clear to auscultation Cardiovascular Rate/Rhythm: regular rate and + irregularly irregular Heart Sounds: no murmur Extremities: no edema (Completely resolved) Gastrointestinal (Abdomen) normal bowel sounds, soft, nontender, no hepatosplenomegaly Skin no rashes, warm and dry Psychiatric A+Ox3, euthymic affect Discharge Plan Discharge Items Patient Disposition: Home - Home Health Services Reason For Visit: CHF Discharge Diagnosis: Acute on chronic heart failure with preserved ejection fraction Acute on chronic respiratory failure with hypoxemia Hypokalemia Condition on Discharge: Fair Activity: Resume your previous activity Activity Comment: With home PT/OT Non-emergency contact: Primary Care Provider and Food Storeroom Clerk Call non-emergency contact if: you have any medication questions and your symptoms worsen Follow-up/Referrals: Alexys Verdugo Jr, MD, [facility] [Physician] - 02/01/25 Faiza Costa MD [Primary Care Provider] - 02/08/25 (Follow-up as scheduled on 02/08) Diet: Heart Healthy and Low Sodium (2gm) Fluids: 1500ml (6 cups) Addtl Attending Provider Instructions: You were admitted with fluid overload from congestive heart failure and given IV Lasix with successful removal of extra fluid. You were started on an oral diuretic pill called Bumex which may work better than Lasix as that has not worked well for you in the past. Please weigh yourself every day and keep track of your weights for your heart doctor and your primary care physician. Your potassium and magnesium levels were low and needed to be replaced. You will need to have blood work to check your potassium level, magnesium level, and kidney function in the next 1-2 weeks-either your machinist job setter or PCP can order this blood work for you. Please continue taking potassium 10 mEq by mouth once daily and increase your magnesium dose to 400 mg by mouth twice a day. You will now need to wear 2 L of oxygen with walking around but you can take it off when you are just at rest. Your calcium levels are mildly elevated.please do not take your home calcium pills and follow-up with your primary care physician regarding this issue as it seems to be a long-term issue. Call your Primary Care doctor if any of the following symptoms or problems start or get worse: * Shortness of breath or difficulty breathing * Wake up at night short of breath * Chest pain * Cough * Swelling of your hands, feet, or legs * More fatigued or tired with your normal activity * Palpitations - sudden fast heart beats WEIGHT * Weigh yourself every morning after using the bathroom. * Use the same scale. * Wear the same amount of clothing. * Write your weight down on a chart. * Call your Primary Care doctor if you gain more than 2-3 pounds in 1-2 days. MEDICATIONS * Use this discharge instruction sheet for medication instructions. * Take your medications at the time your doctor ordered. * Do not skip a dose of your medicines. * If you miss a dose of medicine, take it as soon as possible, but DO NOT DOUBLE A DOSE. * Read your medicine information when you get home. * Know all of the side effects of your medicine. If in doubt, ask your pharmacist * Call your Primary Care doctor's office if you have any side effects. * Be sure all of your doctors know what medicine and herbs you take (including cold, flu, and herbal medicine). Take the following with you to your follow-up doctor appointments: * Weight Chart * Medication List * List of questions Do not drink excessive alcohol, beer or wine. Pending Studies at Discharge: No Stand-Alone Forms: My [facility] [employer], Smoking Cessation Medications and DC Order Prescriptions: New potassium chloride 10 mEq Tablet Extended Release 10 meq PO DAILY Qty: 30 0RF bumetanide 1 mg Tablet 1 mg PO QAM Qty: 30 0RF Continued aspirin 81 mg tablet,delayed release (DR/EC) 81 mg PO HS Qty: 30 5RF multivitamin Tablet 1 tab PO QAM Qty: 30 5RF (DME) Scooter Misc See Rx Instructions .Route Qty: 1 0RF Rx Instructions: As directed. (DME) nebulizers Misc See Rx Instructions .ROUTE .MEDSUPPLY Qty: 1 0RF Rx Instructions: New nebulizer (DME) nebulizer accessories Kit See Rx Instructions .ROUTE .MEDSUPPLY Qty: 2 0RF Rx Instructions: All tubing, connectors, and accessory pieces pramipexole 0.5 mg tablet 0.5 mg PO HS Qty: 90 1RF (DME) [employer] [place] See Rx Instructions .Route Qty: 6 3RF Rx Instructions: Pt would like 6 packs of briefs "pull ups" every other month gabapentin 400 mg capsule 400 mg PO BID Qty: 60 1RF digoxin 125 mcg (0.125 mg) tablet 125 mcg PO QAM Qty: 90 1RF oxybutynin chloride 5 mg tablet extended release 24hr 5 mg PO QAM Qty: 90 1RF atorvastatin [Lipitor] 40 mg tablet 40 mg PO HS Qty: 90 1RF montelukast [Singulair] 10 mg tablet 10 mg PO HS Qty: 90 1RF pantoprazole [Protonix] 40 mg tablet,delayed release (DR/EC) 40 mg PO QAM Qty: 90 1RF metoprolol tartrate 25 mg tablet 25 mg PO BID Qty: 60 11RF Eliquis 5 mg tablet 5 mg PO BID Qty: 60 11RF Rx Instructions: TAKE 1 TABLET BY MOUTH IN THE MORNING AND AT BEDTIME travoprost 0.004 % drops 1 drp OPB HS Patient Comments: both eyes dextroamphetamine-amphetamine [Adderall] 10 mg tablet 10 mg PO DAILY@1400 Patient Comments: take 20 mg morning and 10 mg in afternoon. Rx Instructions: 10mg IN AFTERNOON. Metamucil (sugar) Powder 1 tbsp PO QPM PRN (Reason: Constipation) (DME) [facility] [place] See Rx Instructions .Route Qty: 1 0RF Rx Instructions: As directed R26.2, R53.1 (DME) Oxygen Home Liters Per Minute See Rx Instructions .Route Rx Instructions: 3L/min O2 for use when sleeping. Pt is mouth breather, needs appropriate mask naloxone [Narcan] 4 mg/actuation spray,non-aerosol 4 mg intranasal Q3M PRN (Reason: opioid overdose) Qty: 2 0RF Rx Instructions: spray 1 dose into ONE nostril; alternate nostrils w each dose until patient responsive or help arrives biotin 10 mg Tablet 10 mg PO QAM ascorbic acid (vitamin C) [Vitamin C] 500 mg Tablet 500 mg PO QAM guaifenesin [Mucinex] 600 mg Tablet Extended Release 12hr 600 mg PO Q6H PRN (Reason: Congestion) cyanocobalamin (vitamin B-12) 2,500 mcg tablet 2,500 mcg PO QAM loratadine 10 mg Tablet 10 mg PO QAM albuterol sulfate [Ventolin HFA] 90 mcg/actuation HFA aerosol inhaler 2 puff Inhalation Q4 PRN (Reason: asthma) albuterol sulfate 2.5 mg /3 mL (0.083 %) Solution For Nebulization 3 mg INHALATION Q6 PRN (Reason: asthma attacks) Patient Comments: pt reports albuterol nebilizer for asthma attacks/none in yrs. brimonidine-timolol [Combigan] 0.2-0.5 % drops 1 drp OPB BID Patient Comments: both eyes escitalopram oxalate [Lexapro] 20 mg tablet 20 mg PO QAM Qty: 0 0RF trazodone 150 mg tablet 225 mg PO HS Rx Instructions: TAKE WITH 50MG = 200MG @HS buspirone 5 mg tablet 5 mg PO BID lamotrigine 150 mg tablet 150 mg PO HS dextroamphetamine-amphetamine 10 mg tablet 20 mg PO DAILY@0600 diltiazem HCl 180 mg capsule,extended release 24hr 360 mg PO QAM Rx Instructions: TWO CAPSULES IN THE AM zinc gluconate 50 mg Tablet 50 mg PO QAM cholecalciferol (vitamin D3) [Vitamin D3] 125 mcg (5,000 unit) Tablet 125 mcg PO QAM vitamin E 268 mg (400 unit) Capsule 800 mg PO DAILY acetaminophen [Tylenol Extra Strength] 500 mg tablet 1,000 mg PO BID MDD 3G Rx Instructions: TAKES AT 0600 & 1400 hydrocortisone 10 mg tablet 20 mg PO QAM@0600 Rx Instructions: Take 20 mgfirst thing in the morning; take 10 8 hours later. Double in times of stress Second dose must begin exactly 8 hours after the morning dose. hydrocortisone 10 mg tablet 10 mg PO .Daily @ 1400 Rx Instructions: TAKE 1&20 mg TABS FIRST THING IN THE MORNING AND 10 mg TAB 8 HOURS LATER. second dose must be exactly 8 hours after morning dose. DOUBLE IN TIMES OF STRESS. Changed magnesium oxide 400 mg magnesium tablet 400 mg PO BID Qty: 90 3RF Held calcium carbonate-vitamin D3 [Calcium 600 + D(3)] 600 mg-10 mcg (400 unit) Tablet 1 tab PO BID Hold Instructions: Resume on 02/08/25. Hold until you have further evaluation on your calcium levels with your PCP Discontinued omeprazole 40 mg capsule,delayed release(DR/EC) 40 mg PO QAM Qty: 30 2RF Discharge Orders: Discharge Order- CHF (Routine); Ordered 01/30/25 Ordered By: Adriana Loza Admission Data Admit Date/Time: 01/28/25 19:40 Attending Provider: Adriana Loza Admit Provider: Adriana Loza Primary Care Provider: Faiza Costa Other Providers: Adriana Loza; [facility] Fax Hospital Stay Data Consultations 01/28/25 18:24 ED Decision to Admit Stat Pending Results Patient Have Any Pending Studies at Discharge: No Discharge Instructions Given to Patient (Per Discharging Provider) You were admitted with fluid overload from congestive heart failure and given IV Lasix with successful removal of extra fluid. You were started on an oral diuretic pill called Bumex which may work better than Lasix as that has not worked well for you in the past. Please weigh yourself every day and keep track of your weights for your heart doctor and your primary care physician. Your potassium and magnesium levels were low and needed to be replaced. You will need to have blood work to check your potassium level, magnesium level, and kidney function in the next 1-2 weeks-either your machinist job setter or PCP can order this blood work for you. Please continue taking potassium 10 mEq by mouth once daily and increase your magnesium dose to 400 mg by mouth twice a day. You will now need to wear 2 L of oxygen with walking around but you can take it off when you are just at rest. Your calcium levels are mildly elevated.please do not take your home calcium pills and follow-up with your primary care physician regarding this issue as it seems to be a long-term issue. Call your Primary Care doctor if any of the following symptoms or problems start or get worse: * Shortness of breath or difficulty breathing * Wake up at night short of breath * Chest pain * Cough * Swelling of your hands, feet, or legs * More fatigued or tired with your normal activity * Palpitations - sudden fast heart beats WEIGHT * Weigh yourself every morning after using the bathroom. * Use the same scale. * Wear the same amount of clothing. * Write your weight down on a chart. * Call your Primary Care doctor if you gain more than 2-3 pounds in 1-2 days. MEDICATIONS * Use this discharge instruction sheet for medication instructions. * Take your medications at the time your doctor ordered. * Do not skip a dose of your medicines. * If you miss a dose of medicine, take it as soon as possible, but DO NOT DOUBLE A DOSE. * Read your medicine information when you get home. * Know all of the side effects of your medicine. If in doubt, ask your pharmacist * Call your Primary Care doctor's office if you have any side effects. * Be sure all of your doctors know what medicine and herbs you take (including cold, flu, and herbal medicine). Take the following with you to your follow-up doctor appointments: * Weight Chart * Medication List * List of questions Do not drink excessive alcohol, beer or wine. Total Time Total Time Spent Total Time Spent (In Minutes): 35 minutes Total Time Includes: Examination of the Patient, Discharge Planning, Medication Reconciliation and Other (project development manager) Coding Level of Care Code 63340 INP/OBS DISCH >30 MIN Diagnoses (HFpEF) heart failure with preserved ejection fraction I50.30 Acute and chronic respiratory failure J96.20 Hypokalemia E87.6 Chronic obstructive pulmonary disease J44.9
[2025-01-30 16:19] VITALS: PULSE 77; O2SAT 96
== END 2025-01-30 19:16 | disposition home health service (06) | DRG 291 ==
LOC: ED 15:13 → 2S 19:40 → INTOOBSV 19:40 → 2S 21:07

== ENCOUNTER 2025-02-04 06:30 | Inpatient (IN) ==
--- NOTE | 2025-02-04 06:51 | Emergency Department Note ---
Impression & Plan Acute parotitis, Hypomagnesemia, Facial cellulitis, Failure of outpatient treatment, Leukocytosis ED Provider Note NAME: MARJORIE KNOWLES AGE: 84 SEX: F : 1940 ARRIVES VIA: Ambulance INFORMANT: [Patient][EMS] ED PROVIDER(S): [Sin Orosco MD] CHIEF COMPLAINT: Facial swelling and pain HISTORY OF PRESENT ILLNESS: The patient is an 84-year-old female with a history of parotitis. The patient states that 2 or 3 days ago, she noticed some swelling to the area of the left face and some soreness. The patient states that she went to urgent care and was given clindamycin as clindamycin has helped before. Despite the antibiotics, the face has become more swollen and painful and, she states this is the most swollen it has ever been. The patient complains of a dry mouth but is able to swallow. She is not more short of breath than baseline. She denies any fever. PMHx/PSHx/Social Hx: See Below PHYSICAL EXAM: GENERAL: Patient is in no acute distress. HEENT: Patient has marked swelling and firmness to the left posterior jaw in the area of the parotid gland. There is erythema that tracks from this area down to the underside of the chin. Mucous membranes are dry. NECK: No stridor, no adenopathy, no meningismus, trachea is midline. LUNGS: Clear to auscultation bilaterally when listening anterior, no wheeze, no rhonchi, breath sounds equal. HEART: Tachycardic and somewhat irregular. No obvious murmur. ABDOMEN: Soft, nontender, no peritonitis. EXTREMITIES: No cyanosis, full range of motion of all the joints without pain or difficulty. No edema. NEUROLOGIC: Oriented x 3, no acute motor or sensory deficits, no focal weakness. SKIN: No jaundice, no diaphoresis. DIFFERENTIAL DIAGNOSIS: Parotitis, sialoadenitis, cellulitis, abscess, airway compromise, among others. EMERGENCY DEPARTMENT PROCEDURES: MEDICAL DECISION MAKING: There is a mild leukocytosis, this would be consistent with infection. There was a slight anemia. There was a normal platelet count. No bandemia. Magnesium was somewhat low, no renal failure. No concerning liver enzyme elevation. Chest x-ray did not show pneumonia or CHF. Soft tissue neck CT shows parotitis with a cellulitis. No abscess. On exam, there was no airway compromise. The patient was not in distress. She was not febrile. There was significant right facial swelling. The patient received IV clindamycin as antibiotic coverage. She was given a 500 cc saline bolus for hydration purposes. She received IV magnesium. She was given IV Tylenol for pain. The patient requires a hospital stay. She has a significant parotitis with a surrounding cellulitis. She has failed outpatient therapy. She requires IV antibiotic therapy and potentially, ENT/facial surgical intervention. I spoke with the patient and case management. The on-call hospitalist was consulted. Prior/Outside records/notes reviewed: Today's EMS notes describing her presentation and transport to this hospital. ECG per my interpretation: Indication was tachycardia. The ECG shows atrial fibrillation with PVCs. The rate was 93. There was diffuse nonspecific ST change. There was no acute ST elevation. QTc was 358. Continuous Cardiac Monitoring per my interpretation: An order was placed for continuous cardiac monitoring. The monitor shows a rate of 105 with atrial fibrillation. Imaging/x-ray results per my interpretation: Chest x-ray shows some subtle cardiomegaly, there is no CHF or pneumonia. Chronic Medical/Social conditions affecting care: Advanced age. Care/Management discussed with: Case management, the on-call hospitalist. Level of care consideration(s): After review of the information above and other included data: --I believe the patient requires escalation of care to admission DISPOSITION: Admission Past Med/Surg History Problem List (Updated 02/04/25 @ 18:07 by Sin Orosco MD) Leukocytosis (Acute) Failure of outpatient treatment (Acute) Facial cellulitis (Acute) Hypomagnesemia (Acute) Acute parotitis (Acute) Chronic congestive heart failure Encounter for monitoring diuretic therapy Hypokalemia (Acute) (HFpEF) heart failure with preserved ejection fraction Dysphagia Lumbar disc herniation with radiculopathy Calcification of intervertebral cartilage or disc of lumbar region Right lumbar radiculopathy Abnormal finding on CT scan (Acute) Pain in right lumbar region of back (Acute) Chronic right hip pain (Acute) Greater trochanteric bursitis of right hip Rotator cuff arthropathy of left shoulder Secondary adrenal insufficiency Anticoagulant long-term use Leg length discrepancy Adrenal insufficiency Hypercalcemia Orthostatic hypotension Nocturnal hypoxia o2 3L HS. Fracture of acromion of scapula (06/14/24) Acute fracture at the base of the acromion from a fall. Atrial fibrillation Ambulatory dysfunction Recurrent falls Contusion of knee, right (Acute) Generalized weakness (Acute) Obstructive lung disease Acromioclavicular joint arthritis Rotator cuff arthropathy of right shoulder Left ventricular systolic dysfunction Mitral regurgitation Aortic regurgitation Prediabetes Nonobstructive atherosclerosis of coronary artery Glenohumeral arthritis SI (sacroiliac) joint dysfunction Osteoarthritis of ankle, left CAD (coronary artery disease) Mild- luminal irregularities only on 2003 cardiac cath Esophageal dysphagia Chronic constipation with overflow incontinence ADHD Stable Chronic obstructive pulmonary disease stable Allergic rhinitis (Chronic) Anxiety disorder (Chronic) follows with psych Benign familial tremor (Chronic) Cervicalgia (Chronic) Former smoker (Chronic) Fusion of spine, lumbar region (Chronic) Glaucoma (Chronic) Hyperlipidemia (Chronic) Raynaud's disease (Chronic) Rectocele (Chronic) Restless legs syndrome (Chronic) SNHL (sensorineural hearing loss) (Chronic) Solitary pulmonary nodule (Chronic) Urge incontinence of urine (Chronic) Vitamin D deficiency (Chronic) Hypomagnesemia (Chronic) CKD (chronic kidney disease) stage 3, GFR 30-59 ml/min (Chronic) Depression (Chronic) Anemia (Chronic) Asthma (Chronic) Lumbar stenosis with neurogenic claudication (Chronic) Medical History History of recent hospitalization [facility] 12/28-12/29: dx acute parotitis L side, submandibular gland infection; tx with IV abx and home on oral abx; pt states on 01/21/25 sx resolved Raynauds disease Benign familial tremor Ambulatory dysfunction pt states uses cane/walker; worst in AM R groin/RUE pain as well as LBP Right groin pain Lumbar radiculopathy Nocturnal hypoxia 3L O2 HS Secondary adrenal insufficiency daily steroid ADHD Atrial fibrillation Acute parotitis Submandibular gland infection Scapular fracture (06/14/24) Acute fracture at the base of the acromion from a fall. Pre-diabetes CKD (chronic kidney disease) pt denies Mitral regurgitation Left ventricular systolic dysfunction EF 45-50% on 03/2023 echo; > 55% 12/2023 stress echo CAD (coronary artery disease) mild in 2003 per [place] cardiology records Aortic regurgitation mild to moderate on 03/2023 echo Esophageal dysphagia Asthma COPD (chronic obstructive pulmonary disease) Anxiety Raynauds disease Acid reflux controlled, stable per pt Tremor hands History of gastric ulcer History of sepsis (2022) History of skin cancer removed Difficult intravenous access Rectocele Arthritis of neck mild limitation rom. 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 Rheumatoid arthritis (02/25/13) previously followed with Rheumatology but no longer following Surgical History Status post reverse total replacement of right shoulder (~03/2024) History of lumbar fusion x2 most recent [address] Dr. Lerma History of foot surgery toes on left foot - pt confirms a total of 4 left foot surgeries. History of foot surgery left removal of bone spur S/P foot surgery, left LEFT FOOT LITTLE TOE AMPUTATED 2022. S/P foot surgery, left left ankle/foot reconstruction (2019) History of total hip arthroplasty right hip H/O toe surgery left foot History of total knee replacement bilateral; right TKA: 05/22/17: SAB x1 at L3-L4 + PNB at [facility] S/P hardware removal right ankle S/P laparotomy removed adhesions to relieve bowel strangulation S/P ankle arthrodesis right ankle History of open reduction and internal fixation (ORIF) procedure right ankle H/O elbow surgery bilateral S/P AMANDA (total abdominal hysterectomy) H/O thumb surgery right x2 History of appendectomy History of colonoscopy History of esophagogastroduodenoscopy (EGD) History of surgical removal of skin lesion History of tonsillectomy Family History Family/Other Coronary heart disease Heart disease Cancer Hypertension Brother Prostate cancer Benign familial tremor Father Benign familial tremor Mother Malignant melanoma Aunt Rheumatoid arthritis Other No family history of adverse response to anesthesia Denies family history of Ovarian cancer Myocardial infarction Breast cancer Colorectal cancer Social History Smoking Status: Former smoker Tobacco Type: Cigarettes Age Started Using Tobacco: 19 (intermittently quit throughout the years); Age Quit Using Tobacco: 81; packs per day: 0.1; Cigarettes Per Day: 2; Smoking End Date: 81 YO; Second Hand Exposure: No; Do You Dip or Chew Tobacco: No; Tobacco Cessation Education Requested by Patient: No Hx Alcohol Use: Yes Alcohol type: beer Alcohol Intake Frequency: Monthly or Less Alcohol Intake Frequency Comment: rarely Hx Substance Use: No Preferred Language: Stateless Communication Ability: Effective Visual Impairment: No Limitations Hearing Ability: Hard of Hearing Outreach Professional Required: No Beliefs That Will Affect Care: None marital status: Current Living Situation: Alone Current Living Situation Comment: [facility] 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al status: retired 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[place], 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 How many Children do You have: 2 Feels Safe at Home: Yes Safety Concerns: Feels Safe At This Time Childhood Exposure to Second-Hand Smoke: No Diet: regular caffeine: Yes during the past year weight has: remained stable Dental Care, Regularly: No Physical Activity Frequency: Daily Seatbelt Use: always Sunscreen Use: Yes (sometimes ) Assistive Devices: Cane, Glasses, Oxygen - at Night and Walker Allergies Allergies Allergy/AdvReac Type Severity Reaction Status Date / Time procaine Allergy Severe novacaine Verified 02/04/25 12:07 - anaphylaxis, mouth swelling, dyspnea chocolate flavor Allergy Intermediate hx rash Verified 02/04/25 12:07 Penicillins Allergy Unknown per Verified 02/04/25 12:07 allergy test azithromycin AdvReac Intermediate throat Verified 02/04/25 12:07 burned, lost weight fluticasone AdvReac Intermediate chest pain Verified 02/04/25 12:07 (from Advair) moxifloxacin AdvReac Intermediate N/V Verified 02/04/25 12:07 salmeterol AdvReac Intermediate chest pain Verified 02/04/25 12:07 (from Advair) zolpidem AdvReac Intermediate sleep Verified 02/04/25 12:07 walking NSAIDS (Non-Steroidal AdvReac Unknown advised to Verified 02/04/25 12:07 Anti-Inflamma avoid d/t ulcer hx Home Meds Home Medications Medication Instructions Recorded Confirmed psyllium seed (sugar) oral powder 1 tbsp PO QPM PRN Constipation 03/03/20 02/04/25 (Metamucil (sugar) oral powder) travoprost 0.004 % eye drops 1 drp OPB HS 05/03/21 02/04/25 ascorbic acid (vitamin C) 500 mg 500 mg PO QAM 06/27/23 09/19/25 tablet (Vitamin C) biotin 10 mg tablet 10 mg PO QAM 11/12/22 02/04/25 guaifenesin 600 mg tablet, 600 mg PO Q6H PRN Congestion 11/12/22 02/04/25 extended release 12 hr (Mucinex) cyanocobalamin (vitamin B-12) 2,500 mcg PO QAM 05/06/23 02/04/25 2,500 mcg tablet buspirone 5 mg tablet 5 mg PO BID Anxiety 02/18/24 02/04/25 albuterol sulfate 2.5 mg/3 mL 3 mg inhalation Q6 PRN asthma 02/20/24 02/04/25 (0.083 %) solution for nebulization attacks albuterol sulfate 90 mcg/actuation 2 puff inhalation Q4 PRN asthma 02/20/24 02/04/25 aerosol inhaler (Ventolin HFA) loratadine 10 mg tablet 10 mg PO QAM 02/20/24 02/04/25 brimonidine 0.2 %-timolol 0.5 % 1 drp OPB BID 06/14/24 02/04/25 eye drops (Combigan) calcium 600 mg (as 0 tab PO BID 09/23/24 02/04/25 carbonate)-vitamin D3 10 mcg (400 unit) tablet (Calcium 600 + D(3)) cholecalciferol (vitamin D3) 125 125 mcg PO QAM 09/23/24 02/04/25 mcg (5,000 unit) tablet (Vitamin D3) dextroamphetamine-amphetamine 10 20 mg PO DAILY@0600 09/23/24 02/04/25 mg tablet diltiazem HCl 180 mg capsule,24 360 mg PO QAM 09/23/24 02/04/25 hr,extended release lamotrigine 150 mg tablet 150 mg PO HS 09/23/24 02/04/25 zinc gluconate 50 mg tablet 50 mg PO QAM 09/23/24 02/04/25 acetaminophen 500 mg tablet 1,000 mg PO BID Pain 12/23/24 02/04/25 (Tylenol Extra Strength) vitamin E 268 mg (400 unit) capsule 800 mg PO DAILY 12/23/24 02/04/25 Oxygen Home 01/05/25 02/02/25 dextroamphetamine-amphetamine 10 10 mg PO DAILY@1400 01/05/25 02/04/25 mg tablet (Adderall) hydrocortisone 10 mg tablet 10 mg PO .Daily @ 1400 01/05/25 02/02/25 hydrocortisone 10 mg tablet 20 mg PO QAM@0600 01/05/25 02/02/25 trazodone 150 mg tablet 225 mg PO HS 01/21/25 02/04/25 Previous Rx's Medication Instructions Recorded aspirin 81 mg tablet,delayed 81 mg PO HS #30 tabs 08/18/20 release multivitamin 1 tab PO QAM #30 tabs 09/13/20 Scooter #1 ea 04/03/21 nebulizer accessories #2 ea 03/31/23 nebulizers #1 ea 03/31/23 pramipexole 0.5 mg tablet 0.5 mg PO HS #90 tabs 05/17/24 escitalopram oxalate 20 mg tablet 20 mg PO QAM #0 tabs 06/18/24 (Lexapro) Wheeled Walker #1 ea 07/08/24 diaper,brief,adult,disposable #6 ea 08/06/24 (Select Disposable Briefs) gabapentin 400 mg capsule 400 mg PO BID #60 caps 10/08/24 atorvastatin 40 mg tablet (Lipitor) 40 mg PO HS #90 tabs 12/16/24 digoxin 125 mcg (0.125 mg) tablet 125 mcg PO QAM #90 tabs 12/16/24 montelukast 10 mg tablet 10 mg PO HS #90 tabs 12/16/24 (Singulair) oxybutynin chloride 5 mg 5 mg PO QAM #90 tabs 12/16/24 tablet,extended release 24 hr pantoprazole 40 mg tablet,delayed 40 mg PO QAM #90 tabs 12/16/24 release (Protonix) metoprolol tartrate 25 mg tablet 25 mg PO BID #60 tabs 12/24/24 naloxone 4 mg/actuation nasal 4 mg intranasal Q3M PRN opioid 01/05/25 spray (Narcan) overdose #2 ea apixaban 5 mg tablet (Eliquis) 5 mg PO BID #60 tabs 01/12/25 bumetanide 1 mg tablet 1 mg PO QAM #90 tabs 02/01/25 magnesium oxide 400 mg PO BID #90 tabs 02/01/25 potassium chloride 10 mEq 10 meq PO DAILY #90 tabs 02/01/25 tablet,extended release clindamycin HCl 300 mg capsule 600 mg (2 x 300 mg) PO BID 7 days 02/02/25 #28 caps Results & Data (ED) Vital Signs Vital Signs - 24 hr 02/04/25 06:19 02/04/25 06:42 02/04/25 06:46 Temperature 36.9 C Temperature Source Oral Pulse Rate 105 H 106 H 105 H Pulse Rate [Apical] Pulse Rate from SpO2 Sensor 102 H Pulse Rhythm Regular Respiratory Rate 20 25 H 20 Respiratory Effort / Characteristics Non-Labored Spontaneous Respiratory Depth Normal Respiratory Pattern Regular Blood Pressure 157/88 H Blood Pressure [Left Arm] Blood Pressure Mean 111 Blood Pressure Mean [Left Arm] Pulse Oximetry 94 94 94 Oxygen Delivery Method Nasal Cannula Nasal Cannula Oxygen Flow Rate 2 2 2 Sepsis Recent Fever Within 48 Hours No Sepsis New/Unexplained Change in Mental Status No Sepsis Action Taken by Nursing No Action Required 02/04/25 06:51 02/04/25 07:02 02/04/25 07:09 Temperature Temperature Source Pulse Rate 97 H 92 H Pulse Rate [Apical] Pulse Rate from SpO2 Sensor 93 H 94 H Pulse Rhythm Respiratory Rate 22 20 Respiratory Effort / Characteristics Respiratory Depth Respiratory Pattern Blood Pressure 160/81 H Blood Pressure [Left Arm] Blood Pressure Mean 102 Blood Pressure Mean [Left Arm] Pulse Oximetry 91 90 Oxygen Delivery Method Oxygen Flow Rate 2 2 Sepsis Recent Fever Within 48 Hours Sepsis New/Unexplained Change in Mental Status Sepsis Action Taken by Nursing 02/04/25 07:12 02/04/25 07:14 02/04/25 07:30 Temperature Temperature Source Pulse Rate 97 H 101 H Pulse Rate [Apical] 99 H Pulse Rate from SpO2 Sensor 94 H 97 H Pulse Rhythm Respiratory Rate 18 16 22 Respiratory Effort / Characteristics Respiratory Depth Respiratory Pattern Blood Pressure Blood Pressure [Left Arm] 160/81 H Blood Pressure Mean Blood Pressure Mean [Left Arm] 107 Pulse Oximetry 90 94 90 Oxygen Delivery Method Nasal Cannula Oxygen Flow Rate 2 2 Sepsis Recent Fever Within 48 Hours Sepsis New/Unexplained Change in Mental Status Sepsis Action Taken by Nursing 02/04/25 07:30 02/04/25 07:42 02/04/25 07:51 Temperature Temperature Source Pulse Rate 85 96 H Pulse Rate [Apical] Pulse Rate from SpO2 Sensor 83 99 H Pulse Rhythm Respiratory Rate 18 22 Respiratory Effort / Characteristics Respiratory Depth Respiratory Pattern Blood Pressure 137/72 Blood Pressure [Left Arm] Blood Pressure Mean 97 Blood Pressure Mean [Left Arm] Pulse Oximetry 91 91 Oxygen Delivery Method Oxygen Flow Rate 2 2 Sepsis Recent Fever Within 48 Hours Sepsis New/Unexplained Change in Mental Status Sepsis Action Taken by Nursing 02/04/25 08:00 02/04/25 08:00 02/04/25 08:00 Temperature Temperature Source Pulse Rate 87 Pulse Rate [Apical] Pulse Rate from SpO2 Sensor 93 H Pulse Rhythm Respiratory Rate 24 Respiratory Effort / Characteristics Respiratory Depth Respiratory Pattern Blood Pressure 142/84 H 142/84 H Blood Pressure [Left Arm] Blood Pressure Mean 102 102 Blood Pressure Mean [Left Arm] Pulse Oximetry 92 Oxygen Delivery Method Oxygen Flow Rate 2 Sepsis Recent Fever Within 48 Hours Sepsis New/Unexplained Change in Mental Status Sepsis Action Taken by Nursing 02/04/25 08:00 02/04/25 08:12 02/04/25 08:27 Temperature Temperature Source Pulse Rate 99 H 87 Pulse Rate [Apical] Pulse Rate from SpO2 Sensor 98 H 86 Pulse Rhythm Respiratory Rate 24 18 Respiratory Effort / Characteristics Respiratory Depth Respiratory Pattern Blood Pressure 142/84 H Blood Pressure [Left Arm] Blood Pressure Mean 102 Blood Pressure Mean [Left Arm] Pulse Oximetry 92 91 Oxygen Delivery Method Oxygen Flow Rate 2 2 Sepsis Recent Fever Within 48 Hours Sepsis New/Unexplained Change in Mental Status Sepsis Action Taken by Nursing 02/04/25 08:39 02/04/25 08:39 02/04/25 08:42 Temperature Temperature Source Pulse Rate 109 H Pulse Rate [Apical] Pulse Rate from SpO2 Sensor 104 H Pulse Rhythm Respiratory Rate 37 H Respiratory Effort / Characteristics Respiratory Depth Respiratory Pattern Blood Pressure 138/106 H 138/106 H Blood Pressure [Left Arm] Blood Pressure Mean 124 124 Blood Pressure Mean [Left Arm] Pulse Oximetry 92 Oxygen Delivery Method Oxygen Flow Rate 2 Sepsis Recent Fever Within 48 Hours Sepsis New/Unexplained Change in Mental Status Sepsis Action Taken by Nursing 02/04/25 08:57 02/04/25 09:00 02/04/25 09:00 Temperature Temperature Source Pulse Rate 96 H 87 Pulse Rate [Apical] Pulse Rate from SpO2 Sensor 97 H 90 Pulse Rhythm Respiratory Rate 20 24 Respiratory Effort / Characteristics Respiratory Depth Respiratory Pattern Blood Pressure 139/75 Blood Pressure [Left Arm] Blood Pressure Mean 90 Blood Pressure Mean [Left Arm] Pulse Oximetry 91 90 Oxygen Delivery Method Oxygen Flow Rate 2 2 Sepsis Recent Fever Within 48 Hours Sepsis New/Unexplained Change in Mental Status Sepsis Action Taken by Nursing 02/04/25 09:12 02/04/25 09:21 02/04/25 09:30 Temperature Temperature Source Pulse Rate 90 92 H 93 H Pulse Rate [Apical] Pulse Rate from SpO2 Sensor 92 H 99 H 93 H Pulse Rhythm Respiratory Rate 22 22 22 Respiratory Effort / Characteristics Respiratory Depth Respiratory Pattern Blood Pressure Blood Pressure [Left Arm] Blood Pressure Mean Blood Pressure Mean [Left Arm] Pulse Oximetry 91 93 89 L Oxygen Delivery Method Oxygen Flow Rate 2 2 Sepsis Recent Fever Within 48 Hours Sepsis New/Unexplained Change in Mental Status Sepsis Action Taken by Nursing 02/04/25 09:30 02/04/25 09:30 02/04/25 09:30 Temperature Temperature Source Pulse Rate Pulse Rate [Apical] Pulse Rate from SpO2 Sensor Pulse Rhythm Respiratory Rate Respiratory Effort / Characteristics Respiratory Depth Respiratory Pattern Blood Pressure 131/64 131/64 131/64 Blood Pressure [Left Arm] Blood Pressure Mean 100 100 100 Blood Pressure Mean [Left Arm] Pulse Oximetry Oxygen Delivery Method Oxygen Flow Rate Sepsis Recent Fever Within 48 Hours Sepsis New/Unexplained Change in Mental Status Sepsis Action Taken by Nursing 02/04/25 09:42 02/04/25 09:51 02/04/25 10:00 Temperature Temperature Source Pulse Rate 84 96 H 99 H Pulse Rate [Apical] Pulse Rate from SpO2 Sensor 89 94 H 103 H Pulse Rhythm Respiratory Rate 22 35 H 21 Respiratory Effort / Characteristics Respiratory Depth Respiratory Pattern Blood Pressure Blood Pressure [Left Arm] Blood Pressure Mean Blood Pressure Mean [Left Arm] Pulse Oximetry 93 92 92 Oxygen Delivery Method Oxygen Flow Rate Sepsis Recent Fever Within 48 Hours Sepsis New/Unexplained Change in Mental Status Sepsis Action Taken by Nursing 02/04/25 10:00 02/04/25 10:00 02/04/25 10:00 Temperature Temperature Source Pulse Rate Pulse Rate [Apical] Pulse Rate from SpO2 Sensor Pulse Rhythm Respiratory Rate Respiratory Effort / Characteristics Respiratory Depth Respiratory Pattern Blood Pressure 131/84 131/84 131/84 Blood Pressure [Left Arm] Blood Pressure Mean 90 90 90 Blood Pressure Mean [Left Arm] Pulse Oximetry Oxygen Delivery Method Oxygen Flow Rate Sepsis Recent Fever Within 48 Hours Sepsis New/Unexplained Change in Mental Status Sepsis Action Taken by Nursing 02/04/25 10:12 02/04/25 10:21 02/04/25 10:30 Temperature Temperature Source Pulse Rate 101 H 102 H 100 H Pulse Rate [Apical] Pulse Rate from SpO2 Sensor 101 H 103 H 89 Pulse Rhythm Respiratory Rate 20 25 H 33 H Respiratory Effort / Characteristics Respiratory Depth Respiratory Pattern Blood Pressure Blood Pressure [Left Arm] Blood Pressure Mean Blood Pressure Mean [Left Arm] Pulse Oximetry 89 L 93 93 Oxygen Delivery Method Oxygen Flow Rate Sepsis Recent Fever Within 48 Hours Sepsis New/Unexplained Change in Mental Status Sepsis Action Taken by Nursing 02/04/25 10:58 Temperature Temperature Source Pulse Rate Pulse Rate [Apical] 95 H Pulse Rate from SpO2 Sensor Pulse Rhythm Respiratory Rate 18 Respiratory Effort / Characteristics Respiratory Depth Respiratory Pattern Blood Pressure Blood Pressure [Left Arm] 119/78 Blood Pressure Mean Blood Pressure Mean [Left Arm] 91 Pulse Oximetry 92 Oxygen Delivery Method Nasal Cannula Oxygen Flow Rate 2 Sepsis Recent Fever Within 48 Hours Sepsis New/Unexplained Change in Mental Status Sepsis Action Taken by Detention Medications Current Medication List: was personally reviewed by me Laboratory Data Attestation: I reviewed the patient's lab results. 02/04/25 06:40 02/04/25 06:40 Lab Results 02/04/25 Range/Units 06:40 WBC 13.82 H (4.8-10.8) K/ul RBC 4.35 (4.20-5.40) M/uL Hgb 11.8 L (12.0-16.0) g/dl Hct 38.1 (37.0-47.0) % MCV 87.6 (80.0-100.0) fL MCH 27.1 (25.0-34.0) pg MCHC 31.0 L (32.0-36.0) g/dL RDW Std Deviation 47.8 H (36.4-46.3) fL RDW Coeff of Aspen 14.7 H (11.5-14.5) % Plt Count 265 (130-400) K/uL MPV 9.9 (9.4-12.4) fL Immature Gran % (Auto) 0.9 % Neut % (Auto) 72.4 % Lymph % (Auto) 14.8 % [place] % (Auto) 10.3 % Eos % (Auto) 1.2 % Baso % (Auto) 0.4 % Neut # (Auto) 10.01 H (1.40-6.50) K/uL Lymph # (Auto) 2.04 (1.20-3.40) K/uL [place] # (Auto) 1.42 H (0.11-0.59) K/uL Eos # (Auto) 0.16 (0.00-0.50) K/uL Baso # (Auto) 0.06 (0.00-0.20) K/uL Immature Gran # (Auto) 0.13 (0.01-0.20) K/uL Sodium 143 (136-145) mmol/L Potassium 3.4 L (3.5-5.1) mmol/L Chloride 101 (98-107) mmol/L Carbon Dioxide 35 H (21-32) mmol/L Anion Gap 7 (3-11) BUN 15 (6-23) mg/dl Creatinine 0.51 L (0.6-1.2) mg/dl Est Cr Clr Drug Dosing 70.4 ml/min eGFR 91.42 BUN/Creatinine Ratio 29.4 H (10-20) Glucose 126 H (70-99(Fasting)) mg/dl Calcium 10.3 (8.6-10.3) mg/dl Magnesium 1.6 L (1.7-2.4) mg/dl Total Bilirubin 0.6 (0.2-1.0) mg/dl AST 15 (13-39) U/L ALT 15 (7-52) U/L Alkaline Phosphatase 86 (34-104) U/L Total Protein 7.0 (6.0-8.3) gm/dl Albumin 4.2 (3.4-5.0) gm/dl Globulin 2.8 (2.5-4.0) gm/dl Albumin/Globulin Ratio 1.5 (0.9-2) Administered Medications Amphetamine/Dextroamphetamine (Dextroamphetamine/Amphetamine Ir 10 Mg Tab) 10 mg PO DAILY@1400 [facility] Stop: 02/18/25 15:59 Last Admin: 02/04/25 17:51 Dose: Not Given Documented By: nithin Clindamycin Phosphate (Cleocin/D5w) 600 mg in 50 mls @ 100 mls/hr IV Q8H KEESHA Stop: 02/14/25 15:59 Last Infusion: 02/04/25 17:05 Dose: Infused Documented By: RODEO RIDER Admin: 02/04/25 16:21 Dose: 100 mls/hr Documented By: JDC Discontinued Medications Digoxin (Digoxin 0.125 Mg Tab) 0.125 mg PO NOW ONE Stop: 02/04/25 11:36 Last Admin: 02/04/25 12:33 Dose: 0.125 mg Documented By: AMANDA Diltiazem HCl (Diltiazem Hcl 180 Mg Capcr) 360 mg PO ONE ONE Stop: 02/04/25 11:38 Last Admin: 02/04/25 12:02 Dose: 360 mg Documented By: AMANDA Hydrocortisone (Hydrocortisone 10 Mg Tab) 20 mg PO ONE ONE Stop: 02/04/25 11:39 Last Admin: 02/04/25 12:03 Dose: 20 mg Documented By: AMANDA Sodium Chloride (Nss) 500 mls @ 999 mls/hr IV .Q31M KEESHA Stop: 02/04/25 07:30 Last Infusion: 02/04/25 08:18 Dose: Infused Documented By: Admin: 02/04/25 07:08 Dose: 999 mls/hr Documented By: LEILA Clindamycin Phosphate (Cleocin/D5w) 900 mg in 50 mls @ 100 mls/hr IV NOW ONE Stop: 02/04/25 07:15 Last Infusion: 02/04/25 08:18 Dose: Infused Documented By: Admin: 02/04/25 07:08 Dose: 100 mls/hr Documented By: LEILA Magnesium Sulfate/Dextrose (Magnesium Sulfate / D5w) 1 gm in 100 mls @ 100 mls/hr IV NOW STA Stop: 02/04/25 08:55 Last Infusion: 02/04/25 09:29 Dose: Infused Documented By: Admin: 02/04/25 08:16 Dose: 100 mls/hr Documented By: LEILA Acetaminophen (Ofirmev) 1,000 mg in 100 mls @ 400 mls/hr IV NOW STA Stop: 02/04/25 11:28 Last Infusion: 02/04/25 11:55 Dose: Infused Documented By: Admin: 02/04/25 11:33 Dose: 400 mls/hr Documented By: AMANDA Ioversol (Optiray 320 100ml) 94 ml IV ONCE ONE Stop: 02/04/25 08:34 Last Admin: 02/04/25 08:34 Dose: 94 ml Documented By: CHRIS Metoprolol Tartrate (Metoprolol Tartrate 25 Mg Tab) 25 mg PO NOW STA Stop: 02/04/25 11:36 Last Admin: 02/04/25 12:02 Dose: 25 mg Documented By: AMANDA Imaging Data Radiologist's Impression: Chest X-Ray 02/04/25 06:46 EXAM: XR chest 1V portable CLINICAL HISTORY: Weakness. TECHNIQUE: An X-ray image of the chest was obtained in AP projection. COMPARISON: Prior radiograph dated 01/28/2025 was reviewed for comparison. FINDINGS: Pulmonary Parenchyma: There is no evidence of consolidation or collapse bilaterally. No discrete pleuropulmonary nodularity is detected on either side. There is no evidence of pleural effusion or pleural thickening, which is unchanged. Heart and Mediastinum: There is a redemonstration of apparent cardiomegaly despite the AP supine projection. The nahed appear lobulated and is interval more prominent on the current radiograph, which could be due to vascular congestive changes. Bony Thorax: The visualized bony thorax appears intact without evidence of fractures. 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 Soft Tissues: Soft tissues overlying the chest wall appear grossly unremarkable. IMPRESSION: 1. There is a redemonstration of apparent cardiomegaly with mild congestion. 2. No evidence of consolidation or collapse is seen bilaterally. 3. Clinical correlation is advised. Electronically signed by Milton Carlos 02-04-2025 08:49 AM Soft Tissue Neck CT 02/04/25 06:46 CT SCAN OF THE NECK WITH IV CONTRAST CLINICAL HISTORY: Left facial swelling COMPARISON STUDY: CT of the neck dated 12/27/2024. Chest CT dated 08/06/2013. TECHNIQUE: Following the IV administration of 94 cc of Optiray 320, CT scan of the soft tissues of the neck was performed from the skull base to the upper chest. Images are reviewed in the axial, sagittal, and coronal planes. IV contrast was administered without complication. A dose lowering technique was utilized adhering to the principles of ALARA. CT DOSE: 330.96 mGy.cm FINDINGS: Pharynx: There is mild infiltration of the left parapharyngeal fat. There is also mild infiltration of the superior prevertebral/retropharyngeal fat. The right parapharyngeal fat is preserved. The pharyngeal airway remains patent. There is no evidence of mass lesion. The vocal cords are symmetric. The epiglottis is normal. Lymphadenopathy: Prominent left cervical chain lymph nodes are likely reactive. These measure up to 9 mm in length. Multiple enlarged lymph nodes are seen. Thyroid: Normal in size and attenuation. Salivary glands: The left parotid gland is enlarged and heterogeneous with patchy enhancement and surrounding inflammation. The appearance is consistent with a parotitis. Inflammatory change and trace fluid overlies the parotid gland with dermal thickening. This extends inferiorly into the anterior left lower neck and is consistent with a surrounding cellulitis. No organized fluid collection is seen to suggest abscess. No calcified sialoliths are clearly seen The right parotid gland and the submandibular glands are within normal limits. Brain parenchyma: The visualized brain parenchyma at the skull base is normal in appearance. Vascular structures: The carotid arteries and jugular veins are patent bilaterally noting atherosclerotic calcification of the carotid bulbs. Skeletal structures: The skeletal structures are osteopenic. Imaged portions of the calvarium at the skull base are within normal limits. The cervical spine appears intact noting multilevel spondylosis. A right shoulder arthroplasty is in place. Sinuses and mastoids: There is mild mucosal thickening within the sphenoid sinus. Secretions are noted on the left. The remaining paranasal sinuses are clear. The mastoid air cells are well pneumatized. Cerumen is noted in the external auditory canals. Orbits: The bony orbits are intact. Orbital contents are within normal limits noting bilateral ocular lens implants. Lung apices: Emphysematous change is noted at the apices. There are small right apical pulmonary nodules which measure up to 4 mm (axial images #303, #322, and #326. These 1 likely also present on a [address] and are not highly suspicious. IMPRESSION: 1. There is evidence of a severe left-sided parotitis. This has worsened as compared to 12/27/2024. 2. There is significant surrounding cellulitis which extends into the left anterior lower neck. No organized fluid collection is seen to suggest abscess. 3. There is also infiltration of the left parapharyngeal fat, as well as mild infiltration of the retropharyngeal/prevertebral fat. This is also related to cellulitis/infection. 4. Mild emphysema. 5. Additional findings as above. ACT 112: Negative or not required by law. Electronically signed by: Sin Morales M.D. 02/04/2025 9:17 AM Discharge Plan Visit Data Chief Complaint: Facial Injury/Pain Stated Complaint: Facial Swelling ED Provider: Sin Orosco Discharge Problem: Acute parotitis, Hypomagnesemia, Facial cellulitis, Failure of outpatient treatment, Leukocytosis Patient Disposition: Admitted As Inpatient Condition: Fair Discharge Instructions Interventions: ED Discharge Assessment Last Done: 02/04/25 14:52 Discharge Problem: Leukocytosis Qualifiers: Leukocytosis type: unspecified Qualified Code(s): D72.829 - Elevated white blood cell count, unspecified
[2025-02-04 07:04] LABS: Hematocrit (blood only) 38.1 % (37.0-47.0); Hemoglobin 11.8 g/dl (12.0-16.0); Immature Granulocytes # (auto) 0.13 K/uL (0.01-0.20); Immature Granulocytes % (auto) 0.9 %; Mean Corpuscular Hemoglobin 27.1 pg (25.0-34.0); Mean Corpuscular Volume 87.6 fL (80.0-100.0); Platelet Count 265 K/uL (130-400); RDW Standard Deviation 47.8 fL (36.4-46.3); Red Blood Count 4.35 M/uL (4.20-5.40); White Blood Count 13.82 K/ul (4.8-10.8)
[2025-02-04] MEDS: CLINDAMYCIN/D5W 900 MG/50 ML BAG IV ONE (07:08)
[2025-02-04] MEDS: SODIUM CHLORIDE 0.9% 500 ML IV SCH (07:08)
[2025-02-04 07:52] LABS: Albumin Level 4.2 gm/dl (3.4-5.0); Anion Gap 7.0 (3-11); Bilirubin,Total 0.6 mg/dl (0.2-1.0); Calcium 10.3 mg/dl (8.6-10.3); Carbon Dioxide 35.0 mmol/L (21-32); Chloride 101.0 mmol/L (98-107); Magnesium 1.6 mg/dl (1.7-2.4); Potassium 3.4 mmol/L (3.5-5.1); Sodium 143.0 mmol/L (136-145)
[2025-02-04 07:57] LABS: Alanine Aminotransferase 15.0 U/L (7-52); Albumin Globulin Ratio 1.5 (0.9-2); Alkaline Phosphatase 86.0 U/L (34-104); Blood Urea Nitrogen 15.0 mg/dl (6-23); Creatinine Clr Calc Pharmacy 70.4 ml/min; Globulin 2.8 gm/dl (2.5-4.0); Glucose 126.0 mg/dl (70-99(Fasting)); Total Protein 7.0 gm/dl (6.0-8.3)
[2025-02-04] MEDS: MAGNESIUM SULFATE / D5W 1 GM/100 ML BAG IV STA (08:16)
[2025-02-04] MEDS: OPTIRAY 320 100ml IV ONE (08:34)
--- NOTE | 2025-02-04 08:49 | XRay Report ---
EXAM: XR chest 1V portable CLINICAL HISTORY: Weakness. TECHNIQUE: An X-ray image of the chest was obtained in AP projection. COMPARISON: Prior radiograph dated 01/28/2025 was reviewed for comparison. FINDINGS: Pulmonary Parenchyma: There is no evidence of consolidation or collapse bilaterally. No discrete pleuropulmonary nodularity is detected on either side. There is no evidence of pleural effusion or pleural thickening, which is unchanged. Heart and Mediastinum: There is a redemonstration of apparent cardiomegaly despite the AP supine projection. The nahed appear lobulated and is interval more prominent on the current radiograph, which could be due to vascular congestive changes. Bony Thorax: The visualized bony thorax appears intact without evidence of fractures. 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 Soft Tissues: Soft tissues overlying the chest wall appear grossly unremarkable. IMPRESSION: 1. There is a redemonstration of apparent cardiomegaly with mild congestion. 2. No evidence of consolidation or collapse is seen bilaterally. 3. Clinical correlation is advised. Electronically signed by Milton Carlos 02-04-2025 08:49 AM
--- NOTE | 2025-02-04 09:19 | CT Scan Report ---
CT SCAN OF THE NECK WITH IV CONTRAST CLINICAL HISTORY: Left facial swelling COMPARISON STUDY: CT of the neck dated 12/27/2024. Chest CT dated 08/06/2013. TECHNIQUE: Following the IV administration of 94 cc of Optiray 320, CT scan of the soft tissues of th e neck was performed from the skull base to the upper chest. Images are reviewed in the axial, sagitt al, and coronal planes. IV contrast was administered without complication. A dose lowering techniqu e was utilized adhering to the principles of ALARA. CT DOSE: 330.96 mGy.cm FINDINGS: Pharynx: There is mild infiltration of the left parapharyngeal fat. There is also mild infiltration o f the superior prevertebral/retropharyngeal fat. The right parapharyngeal fat is preserved. The phary ngeal airway remains patent. There is no evidence of mass lesion. The vocal cords are symmetric. The epiglottis is normal. Lymphadenopathy: Prominent left cervical chain lymph nodes are likely reactive. These measure up to 9 mm in length. Multiple enlarged lymph nodes are seen. Thyroid: Normal in size and attenuation. Salivary glands: The left parotid gland is enlarged and heterogeneous with patchy enhancement and leigh ann rounding inflammation. The appearance is consistent with a parotitis. Inflammatory change and trace f luid overlies the parotid gland with dermal thickening. This extends inferiorly into the anterior lef t lower neck and is consistent with a surrounding cellulitis. No organized fluid collection is seen t o suggest abscess. No calcified sialoliths are clearly seen The right parotid gland and the submandib ular glands are within normal limits. Brain parenchyma: The visualized brain parenchyma at the skull base is normal in appearance. Vascular structures: The carotid arteries and jugular veins are patent bilaterally noting atheroscler otic calcification of the carotid bulbs. Skeletal structures: The skeletal structures are osteopenic. Imaged portions of the calvarium at the skull base are within normal limits. The cervical spine appears intact noting multilevel spondylosis. A right shoulder arthroplasty is in place. Sinuses and mastoids: There is mild mucosal thickening within the sphenoid sinus. Secretions are note d on the left. The remaining paranasal sinuses are clear. The mastoid air cells are well pneumatized. Cerumen is noted in the external auditory canals. Orbits: The bony orbits are intact. Orbital contents are within normal limits noting bilateral ocular lens implants. Lung apices: Emphysematous change is noted at the apices. There are small right apical pulmonary nodu les which measure up to 4 mm (axial images #303, #322, and #326. These 1 likely also present on a [address] and are not highly suspicious. IMPRESSION: 1. There is evidence of a severe left-sided parotitis. This has worsened as compared to 12/27/2024. 2. There is significant surrounding cellulitis which extends into the left anterior lower neck. No or ganized fluid collection is seen to suggest abscess. 3. There is also infiltration of the left parapharyngeal fat, as well as mild infiltration of the ret ropharyngeal/prevertebral fat. This is also related to cellulitis/infection. 4. Mild emphysema. 5. Additional findings as above. ACT 112: Negative or not required by law. Electronically signed by: Sin Morales M.D. 02/04/2025 9:17 AM
--- NOTE | 2025-02-04 09:23 | Electrocardiogram Report ---
Test Reason : Blood Pressure : */* mmHG Vent. Rate : 93 BPM Atrial Rate : * BPM P-R Int : * ms QRS Dur : 92 ms QT Int : 288 ms P-R-T Axes : * 30 227 degrees QTcB Int : 358 ms Atrial fibrillation with premature ventricular or aberrantly conducted complexes Nonspecific ST and T wave abnormality Abnormal ECG When compared with ECG of 28-Jan-2025 15:24, No significant change Confirmed by Davis Vazquez ([id number]) on 02/04/2025 9:23:35 AM Referred By: Confirmed By: Dvais Vazquez
[2025-02-04] MEDS ORDERED: MELATONIN 3 MG TAB PO PRN (11:28)
[2025-02-04] MEDS ORDERED: ONDANSETRON INJ 2 MG/ML 2 ML VIAL IV PRN (11:28)
[2025-02-04] MEDS: ACETAMINOPHEN 1,000 MG/100 ML VIAL IV STA (11:33)
--- NOTE | 2025-02-04 11:57 | History & Physical Report ---
Date of Service February 04, 2025 Assessment & Plan (1) Acute parotitis: (2) Atrial fibrillation: (3) Adrenal insufficiency: (4) Chronic obstructive pulmonary disease: (5) Chronic congestive heart failure: (6) Hypokalemia: (7) Hypomagnesemia: Plan Patient is a 84-year-old female with past medical history of permanent atrial fibrillation, lower extremity edema, lumbar radiculopathy, ambulatory dysfunction, right hip osteoarthritis and pain, long-term anticoagulant use, secondary adrenal insufficiency, nocturnal hypoxia requiring 3 L nasal cannula oxygen, COPD, aortic and mitral regurgitation, CAD, esophageal dysphagia, ADHD, benign familial tremor, Raynaud's disease, CKD stage III, depression, and asthma that presents with complaints of left-sided facial swelling that started yesterday. ##Left-sided parotitis/left facial cellulitis -CT scan of neck with IV contrast supporting diagnosis>findings with evidence of severe left-sided parotitis which has worsened compared to 12/27/24, significant surrounding cellulitis which extends into the left anterior neck, no organized fluid collection to support abscess -CBC with leukocytosis of 13.82, will trend inflammatory markers -Clindamycin 900mg IV dose in the ED, Clindamycin 600mg IV Q8H -consult Dr. Coto for further management -clear liquids as tolerated -cont pulse oximetry for monitoring ##hypokalemia - K 3.4 on admission. -potassium chloride 20meq po NOW -will trend ##hypomagnesemia - Mag 1.6 on admission. -repleted in ED with magnesium 1gram IV -will trend #Chronic HFpEF/permanent atrial fibrillation/nonobstructive CAD -irregularly irregular on exam consistent with hx -cont Eliquis for AC>dose this evening -monitor on med/tele -hold loop diuretic for now, Continue Cardizem, Metoprolol, and Digoxin. -daily weight/I&O -Follow BMP #COPD -continue supplemented nasal cannula oxygen as needed for SPO2 equal to or less than 90% -albuterol inhaler as needed #Adrenal insufficiency/steroid dependence - Continue home hydrocortisone twice daily - monitor, stress dose as necessary #GERD-no acute issues - Continue PPI #Overactive bladder -Continue home oxybutynin #RLS-no acute issues - Continue home pramipexole #Depression/anxiety/ADHD-no acute issues - Continue trazodone, Lamictal, Lexapro, Adderall, and buspirone #Allergies - Continue home montelukast, loratadine DVT prophylaxis: Elia Code: DNR/DNI Case discussed w/ Dr. Fletcher at time of admission. History of Present Illness Primary Care Provider: Faiza Costa MD Patient is a 84-year-old female with past medical history of permanent atrial fibrillation, lower extremity edema, lumbar radiculopathy, ambulatory dysfunction, right hip osteoarthritis and pain, long-term anticoagulant use, secondary adrenal insufficiency, nocturnal hypoxia requiring 3 L nasal cannula oxygen, COPD, aortic and mitral regurgitation, CAD, esophageal dysphagia, ADHD, benign familial tremor, Raynaud's disease, CKD stage III, depression, and asthma that presents with complaints of left-sided facial swelling that started yesterday. She was seen in urgent care and prescribed clindamycin for diagnosed parotitis. She states she did take approximately 3 doses of the antibiotic. She did call an ambulance this morning due to a marked increase in the swelling to her left jaw area and left face. She reports she does have a history of parotitis and had an episode this past August where she was treated with antibiotics and recovered. She was also recently hospitalized with same presentation on 12/28/24. She was recently hospitalized for CHF and discharged. She denies dysphagia. She has been able to tolerate oral liquids. She denies pain to her left face/left jaw area. Only reports tenderness to palpation of area. She denies shortness of breath. Allergies Allergy/AdvReac Type Severity Reaction Status Date / Time procaine Allergy Severe novacaine Verified 02/08/25 10:36 - anaphylaxis, mouth swelling, dyspnea chocolate flavor Allergy Intermediate hx rash Verified 02/08/25 10:36 Penicillins Allergy Unknown per Verified 02/08/25 10:36 allergy test azithromycin AdvReac Intermediate throat Verified 02/08/25 10:36 burned, lost weight fluticasone AdvReac Intermediate chest pain Verified 02/08/25 10:36 (from Advair) moxifloxacin AdvReac Intermediate N/V Verified 02/08/25 10:36 salmeterol AdvReac Intermediate chest pain Verified 02/08/25 10:36 (from Advair) zolpidem AdvReac Intermediate sleep Verified 02/08/25 10:36 walking NSAIDS (Non-Steroidal AdvReac Unknown advised to Verified 02/08/25 10:36 Anti-Inflamma avoid d/t ulcer hx Home Medications Medication Instructions Recorded Confirmed Type psyllium seed (sugar) oral powder 1 tbsp PO QPM PRN Constipation 03/03/20 02/08/25 History (Metamucil (sugar) oral powder) aspirin 81 mg tablet,delayed 81 mg PO HS #30 tabs 08/18/20 02/08/25 Rx release multivitamin 1 tab PO QAM #30 tabs 09/13/20 02/08/25 Rx Scooter #1 ea 04/03/21 02/08/25 Rx travoprost 0.004 % eye drops 1 drp OPB HS 05/03/21 02/08/25 History ascorbic acid (vitamin C) 500 mg 500 mg PO QAM 11/12/22 02/08/25 History tablet (Vitamin C) biotin 10 mg tablet 10 mg PO QAM 11/12/22 02/08/25 History guaifenesin 600 mg tablet, 600 mg PO Q6H PRN Congestion 11/12/22 02/08/25 History extended release 12 hr (Mucinex) nebulizer accessories #2 ea 03/31/23 02/08/25 Rx nebulizers #1 ea 03/31/23 02/08/25 Rx cyanocobalamin (vitamin B-12) 2,500 mcg PO QAM 05/06/23 02/08/25 History 2,500 mcg tablet buspirone 5 mg tablet 5 mg PO BID Anxiety 02/18/24 02/08/25 History albuterol sulfate 2.5 mg/3 mL 3 mg inhalation Q6 PRN asthma 02/20/24 02/08/25 History (0.083 %) solution for nebulization attacks albuterol sulfate 90 mcg/actuation 2 puff inhalation Q4 PRN asthma 02/20/24 02/08/25 History aerosol inhaler (Ventolin HFA) loratadine 10 mg tablet 10 mg PO QAM 02/20/24 02/08/25 History brimonidine 0.2 %-timolol 0.5 % 1 drp OPB BID 06/14/24 02/08/25 History eye drops (Combigan) escitalopram oxalate 20 mg tablet 20 mg PO QAM #0 tabs 06/18/24 02/08/25 Rx (Lexapro) Wheeled Walker #1 ea 07/08/24 02/08/25 Rx diaper,brief,adult,disposable #6 ea 08/06/24 02/08/25 Rx (Select Disposable Briefs) calcium 600 mg (as 0 tab PO BID 09/23/24 02/08/25 History carbonate)-vitamin D3 10 mcg (400 unit) tablet (Calcium 600 + D(3)) cholecalciferol (vitamin D3) 125 125 mcg PO QAM 09/23/24 02/08/25 History mcg (5,000 unit) tablet (Vitamin D3) dextroamphetamine-amphetamine 10 20 mg PO DAILY@0600 09/23/24 02/08/25 History mg tablet diltiazem HCl 180 mg capsule,24 360 mg PO QAM 09/23/24 02/08/25 History hr,extended release lamotrigine 150 mg tablet 150 mg PO HS 09/23/24 02/08/25 History zinc gluconate 50 mg tablet 50 mg PO QAM 09/23/24 02/08/25 History gabapentin 400 mg capsule 400 mg PO BID #60 caps 10/08/24 02/08/25 Rx atorvastatin 40 mg tablet (Lipitor) 40 mg PO HS #90 tabs 12/16/24 02/08/25 Rx digoxin 125 mcg (0.125 mg) tablet 125 mcg PO QAM #90 tabs 12/16/24 02/08/25 Rx montelukast 10 mg tablet 10 mg PO HS #90 tabs 12/16/24 02/08/25 Rx (Singulair) oxybutynin chloride 5 mg 5 mg PO QAM #90 tabs 12/16/24 02/08/25 Rx tablet,extended release 24 hr pantoprazole 40 mg tablet,delayed 40 mg PO QAM #90 tabs 12/16/24 02/08/25 Rx release (Protonix) acetaminophen 500 mg tablet 1,000 mg PO BID Pain 12/23/24 02/08/25 History (Tylenol Extra Strength) vitamin E 268 mg (400 unit) capsule 800 mg PO DAILY 12/23/24 02/08/25 History metoprolol tartrate 25 mg tablet 25 mg PO BID #60 tabs 12/24/24 02/08/25 Rx Oxygen Home 01/05/25 02/08/25 History dextroamphetamine-amphetamine 10 10 mg PO DAILY@1400 01/05/25 02/08/25 History mg tablet (Adderall) hydrocortisone 10 mg tablet 10 mg PO .Daily @ 1400 01/05/25 02/08/25 History hydrocortisone 10 mg tablet 20 mg PO QAM@0600 01/05/25 02/08/25 History naloxone 4 mg/actuation nasal 4 mg intranasal Q3M PRN opioid 01/05/25 02/08/25 Rx spray (Narcan) overdose #2 ea apixaban 5 mg tablet (Eliquis) 5 mg PO BID #60 tabs 01/12/25 02/08/25 Rx trazodone 150 mg tablet 225 mg PO HS 01/21/25 02/08/25 History bumetanide 1 mg tablet 1 mg PO QAM #90 tabs 02/01/25 02/08/25 Rx magnesium oxide 400 mg PO BID #90 tabs 02/01/25 02/08/25 Rx potassium chloride 10 mEq 10 meq PO DAILY #90 tabs 02/01/25 02/08/25 Rx tablet,extended release clindamycin HCl 300 mg capsule 600 mg (2 x 300 mg) PO Q8H 10 days 02/07/25 02/08/25 Rx #60 caps pramipexole 0.5 mg tablet 0.5 mg PO HS #90 tabs 02/09/25 Rx Past Med/Surg History Problem List Acute parotitis (Acute) Hypomagnesemia (Acute) Chronic congestive heart failure Encounter for monitoring diuretic therapy Hypokalemia (Acute) (HFpEF) heart failure with preserved ejection fraction Dysphagia Lumbar disc herniation with radiculopathy Calcification of intervertebral cartilage or disc of lumbar region Right lumbar radiculopathy Pain in right lumbar region of back (Acute) Chronic right hip pain (Acute) Greater trochanteric bursitis of right hip Rotator cuff arthropathy of left shoulder Secondary adrenal insufficiency Anticoagulant long-term use Leg length discrepancy Adrenal insufficiency Hypercalcemia Orthostatic hypotension Nocturnal hypoxia o2 3L HS. Fracture of acromion of scapula (06/14/24) Acute fracture at the base of the acromion from a fall. Atrial fibrillation Ambulatory dysfunction Recurrent falls Contusion of knee, right (Acute) Generalized weakness (Acute) Obstructive lung disease Acromioclavicular joint arthritis Rotator cuff arthropathy of right shoulder Left ventricular systolic dysfunction Mitral regurgitation Aortic regurgitation Prediabetes Nonobstructive atherosclerosis of coronary artery Glenohumeral arthritis SI (sacroiliac) joint dysfunction Osteoarthritis of ankle, left CAD (coronary artery disease) Mild- luminal irregularities only on 2003 cardiac cath Esophageal dysphagia Chronic constipation with overflow incontinence ADHD Stable Chronic obstructive pulmonary disease stable Allergic rhinitis (Chronic) Anxiety disorder (Chronic) follows with psych Benign familial tremor (Chronic) Cervicalgia (Chronic) Former smoker (Chronic) Fusion of spine, lumbar region (Chronic) Glaucoma (Chronic) Hyperlipidemia (Chronic) Raynaud's disease (Chronic) Rectocele (Chronic) Restless legs syndrome (Chronic) SNHL (sensorineural hearing loss) (Chronic) Solitary pulmonary nodule (Chronic) Urge incontinence of urine (Chronic) Vitamin D deficiency (Chronic) CKD (chronic kidney disease) stage 3, GFR 30-59 ml/min (Chronic) Depression (Chronic) Anemia (Chronic) Asthma (Chronic) Lumbar stenosis with neurogenic claudication (Chronic) Medical History History of recent hospitalization Raynauds disease Benign familial tremor Ambulatory dysfunction Right groin pain Lumbar radiculopathy Nocturnal hypoxia Secondary adrenal insufficiency ADHD Atrial fibrillation Acute parotitis Submandibular gland infection Scapular fracture (06/14/24) Pre-diabetes CKD (chronic kidney disease) Mitral regurgitation Left ventricular systolic dysfunction CAD (coronary artery disease) Aortic regurgitation Esophageal dysphagia Asthma COPD (chronic obstructive pulmonary disease) Anxiety Raynauds disease Acid reflux Tremor History of gastric ulcer History of sepsis (2022) History of skin cancer Difficult intravenous access Rectocele Arthritis of neck History of anemia Restless leg syndrome Esophageal stenosis Hearing deficit Glaucoma Depression Hyperlipidemia History of transient cerebral ischemia Rheumatoid arthritis (02/25/13) Surgical History Status post reverse total replacement of right shoulder (~03/2024) History of lumbar fusion History of foot surgery History of foot surgery S/P foot surgery, left S/P foot surgery, left History of total hip arthroplasty H/O toe surgery History of total knee replacement S/P hardware removal S/P laparotomy S/P ankle arthrodesis History of open reduction and internal fixation (ORIF) procedure H/O elbow surgery S/P AMANDA (total abdominal hysterectomy) H/O thumb surgery History of appendectomy History of colonoscopy History of esophagogastroduodenoscopy (EGD) History of surgical removal of skin lesion History of tonsillectomy Family History Family/Other Coronary heart disease Heart disease Cancer Hypertension Brother Prostate cancer Benign familial tremor Father Benign familial tremor Mother Malignant melanoma Aunt Rheumatoid arthritis Other No family history of adverse response to anesthesia Denies family history of Ovarian cancer Myocardial infarction Breast cancer Colorectal cancer Social History Smoking Status: Former smoker Tobacco Type: Cigarettes Age Started Using Tobacco: 19 (intermittently quit throughout the years); Age Quit Using Tobacco: 81; packs per day: 0.1; Cigarettes Per Day: 2; Second Hand Exposure: No; Do You Dip or Chew Tobacco: No; Hx Alcohol Use: Yes Alcohol type: beer Alcohol Intake Frequency: Monthly or Less Alcohol Intake Frequency Comment: rarely Hx Substance Use: No Preferred Language: [place] Communication Ability: Effective Visual Impairment: No Limitations Hearing Ability: Hard of Hearing Manager Photo Required: No Beliefs That Will Affect Care: None marital status: Current Living Situation: Alone Current Living Situation Comment: [facility] 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al status: retired 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 Oral mucous membranes are dry with noted lip cracking. Resp: currently on nasal cannula, normal respiratory effort, clear to upper aguilar anteriorly and posteriorly, bilateral fine crackles in the bases. CV: irregulary irregular. no m/g/r. Abd: normal bowel sounds, non tender, soft to palpation, Extremities: Moves all extremities, no edema Neuro: A&Ox3, Skin: intact, no lesions noted Results & Data Results & Data Vital Signs (Past 12 Hours) Vital Signs Temp Pulse Pulse Resp BP BP Pulse Ox 02/04/25 11:41 114 H 02/04/25 10:58 95 H 18 119/78 92 02/04/25 10:30 100 H 33 H 93 02/04/25 10:21 102 H 25 H 93 02/04/25 10:12 101 H 20 89 L 02/04/25 10:00 131/84 02/04/25 10:00 131/84 02/04/25 10:00 131/84 02/04/25 10:00 99 H 21 92 02/04/25 09:51 96 H 35 H 92 02/04/25 09:42 84 22 93 02/04/25 09:30 131/64 02/04/25 09:30 131/64 02/04/25 09:30 131/64 02/04/25 09:30 93 H 22 89 L 02/04/25 09:21 92 H 22 93 02/04/25 09:12 90 22 91 02/04/25 09:00 87 24 90 02/04/25 09:00 139/75 02/04/25 08:57 96 H 20 91 02/04/25 08:42 109 H 37 H 92 02/04/25 08:39 138/106 H 02/04/25 08:39 138/106 H 02/04/25 08:27 87 18 91 02/04/25 08:12 99 H 24 92 02/04/25 08:00 142/84 H 02/04/25 08:00 142/84 H 02/04/25 08:00 142/84 H 02/04/25 08:00 87 24 92 02/04/25 07:51 96 H 22 91 02/04/25 07:42 85 18 91 02/04/25 07:30 137/72 02/04/25 07:30 101 H 22 90 02/04/25 07:14 99 H 16 160/81 H 94 02/04/25 07:12 97 H 18 90 02/04/25 07:09 92 H 20 90 02/04/25 07:02 160/81 H 02/04/25 06:51 97 H 22 91 02/04/25 06:46 105 H 20 94 02/04/25 06:42 106 H 25 H 94 02/04/25 06:19 36.9 C 105 H 20 157/88 H 94 O2 Del Method O2 Flow Rate 02/04/25 11:41 02/04/25 10:58 Nasal Cannula 2 02/04/25 10:30 02/04/25 10:21 02/04/25 10:12 02/04/25 10:00 02/04/25 10:00 02/04/25 10:00 02/04/25 10:00 02/04/25 09:51 02/04/25 09:42 02/04/25 09:30 02/04/25 09:30 02/04/25 09:30 02/04/25 09:30 02/04/25 09:21 2 02/04/25 09:12 2 02/04/25 09:00 2 02/04/25 09:00 02/04/25 08:57 2 02/04/25 08:42 2 02/04/25 08:39 02/04/25 08:39 02/04/25 08:27 2 02/04/25 08:12 2 02/04/25 08:00 02/04/25 08:00 02/04/25 08:00 02/04/25 08:00 2 02/04/25 07:51 2 02/04/25 07:42 2 02/04/25 07:30 02/04/25 07:30 02/04/25 07:14 Nasal Cannula 2 02/04/25 07:12 2 02/04/25 07:09 2 02/04/25 07:02 02/04/25 06:51 2 02/04/25 06:46 Nasal Cannula 2 02/04/25 06:42 2 02/04/25 06:19 Nasal Cannula 2 Supervising Physician Co-Signing Physician Notes During face to face encounter, I obtained a history and physical examination, discussed plan of care with patient and answered any questions. I discussed plan of care with ZAYNAB Medina. I reviewed above note and agree with it except for the following: Patient will be admitted for left sided parotitis and left sided cellulitis. Will consult Dr. Coto as patient has been treated multiple times with conservative management. PG Care Time/CCT Total # of Minutes Spent Total Time Spent with Patient: Total time spent is greater than 50% in coordination of care (as documented) at patient's floor/unit and/or counseling patient: Coding Level of Care Code 30774 INT INP/OBS CARE MIN Diagnoses Acute parotitis K11.21 Longstanding persistent atrial fibrillation I48.11 Atrial fibrillation type: longstanding persistent Adrenal insufficiency E27.40 Chronic obstructive pulmonary disease J44.9 Chronic congestive heart failure I50.9 Hypokalemia E87.6 Hypomagnesemia E83.42 (2) Atrial fibrillation Atrial fibrillation type: longstanding persistent Qualified Code(s): I48.11 - Longstanding persistent atrial fibrillation
[2025-02-04] MEDS: METOPROLOL TARTRATE 25 MG TAB PO STA (12:02)
[2025-02-04] MEDS: HYDROCORTISONE 10 MG TAB PO ONE (12:03)
[2025-02-04] MEDS: DIGOXIN 0.125 MG TAB PO ONE (12:33)
[2025-02-04] MEDS ORDERED: ALBUTEROL HFA 8 GM INHALER INH PRN (14:51)
[2025-02-04] MEDS: CLINDAMYCIN/D5W 600 MG/50 ML BAG IV SCH (16:21)
[2025-02-04] MEDS: DEXTROAMPHETAMINE/AMPHETAMINE IR 10 MG TAB PO SCH (17:51)
[2025-02-04] MEDS: METOPROLOL TARTRATE 25 MG TAB PO SCH (20:38)
[2025-02-04] MEDS: APIXABAN 5 MG TABLET PO SCH (20:38)
[2025-02-04] MEDS: MONTELUKAST SODIUM 10 MG TABLET PO SCH (20:39)
[2025-02-04] MEDS: lamoTRIgine 100 MG TAB PO SCH (20:39)
[2025-02-04] MEDS: lamoTRIgine 25 MG TAB PO SCH (20:39)
[2025-02-04] MEDS: PRAMIPEXOLE DIHYDROCHLO 0.5 MG TAB PO SCH (20:40)
[2025-02-04] MEDS: GABAPENTIN 400 MG CAP PO SCH (20:40)
[2025-02-04] MEDS: ATORVASTATIN 40 MG TAB PO SCH (20:41)
[2025-02-04] MEDS: TRAVOPROST Z 0.004% OPH SOLN 2.5 ML BTL OPB SCH (20:41)
[2025-02-04] MEDS: ASPIRIN 81 MG ECTAB PO SCH (20:41)
[2025-02-04] MEDS: busPIRone 5 MG TAB PO SCH (20:41)
[2025-02-04] MEDS: MAGNESIUM OXIDE 400 MG TAB PO SCH (21:15)
[2025-02-05] MEDS: ACETAMINOPHEN 325 MG TAB PO PRN (06:02)
[2025-02-05] MEDS: HYDROCORTISONE 10 MG TAB PO SCH ×2 (06:02→13:48)
[2025-02-05] MEDS: DEXTROAMPHETAMINE/AMPHETAMINE IR 10 MG TAB PO SCH (06:07)
[2025-02-05 06:12] LABS: Hematocrit (blood only) 32.6 % (37.0-47.0); Hemoglobin 10.3 g/dl (12.0-16.0); Mean Corpuscular Hemoglobin 27.8 pg (25.0-34.0); Mean Corpuscular Volume 88.1 fL (80.0-100.0); Platelet Count 224 K/uL (130-400); RDW Standard Deviation 47.0 fL (36.4-46.3); Red Blood Count 3.70 M/uL (4.20-5.40); White Blood Count 12.52 K/ul (4.8-10.8)
[2025-02-05 06:25] LABS: Anion Gap 4.0 (3-11); Blood Urea Nitrogen 11.0 mg/dl (6-23); Calcium 9.6 mg/dl (8.6-10.3); Carbon Dioxide 33.0 mmol/L (21-32); Chloride 104.0 mmol/L (98-107); Creatinine Clr Calc Pharmacy 81.6 ml/min; Glucose 105.0 mg/dl (70-99(Fasting)); Magnesium 1.8 mg/dl (1.7-2.4); Potassium 3.3 mmol/L (3.5-5.1); Sodium 141.0 mmol/L (136-145)
[2025-02-05] MEDS: POTASSIUM CHLORIDE CRTAB 20 MEQ TABCR PO STA (09:28)
[2025-02-05] MEDS: LORATADINE 10 MG TAB PO SCH (09:29)
[2025-02-05] MEDS: CHOLECALCIFEROL 125 MCG (5,000 UNITS) TAB PO SCH (09:30)
[2025-02-05] MEDS: DIGOXIN 0.125 MG TAB PO SCH (09:30)
[2025-02-05] MEDS: BUMETANIDE 1 MG TAB PO SCH (09:30)
[2025-02-05] MEDS: ESCITALOPRAM OXALATE 20 MG TAB PO SCH (09:30)
[2025-02-05] MEDS: TOCOPHERYL, DL-ALPHA 400 UNITS 180 MG CAP PO SCH (09:32)
[2025-02-05] MEDS: OXYBUTYNIN CHLORIDE XL 5 MG TABCR PO SCH (09:34)
[2025-02-05] MEDS: ZINC SULFATE 220 MG CAPSULE PO SCH (09:34)
[2025-02-05] MEDS: MULTIVITAMIN TAB PO SCH (09:37)
[2025-02-05] MEDS: POTASSIUM CHLORIDE 10 MEQ TABCR PO SCH (09:47)
--- NOTE | 2025-02-05 10:51 | Hospitalist Progress Note ---
Date of Service February 05, 2025 Assessment & Plan (1) Acute parotitis: (2) Atrial fibrillation: (3) Adrenal insufficiency: (4) Chronic obstructive pulmonary disease: (5) Chronic congestive heart failure: (6) Hypokalemia: (7) Hypomagnesemia: Plan Patient is a 84-year-old female with past medical history of permanent atrial fibrillation, lower extremity edema, lumbar radiculopathy, ambulatory dysfunction, right hip osteoarthritis and pain, long-term anticoagulant use, secondary adrenal insufficiency, nocturnal hypoxia requiring 3 L nasal cannula oxygen, COPD, aortic and mitral regurgitation, CAD, esophageal dysphagia, ADHD, benign familial tremor, Raynaud's disease, CKD stage III, depression, and asthma that presents with complaints of left-sided facial swelling that started yesterday. ##Left-sided parotitis/left facial cellulitis CT scan of neck with IV contrast supporting diagnosis>findings with evidence of severe left-sided parotitis which has worsened compared to 12/27/24, significant surrounding cellulitis which extends into the left anterior neck, no organized fluid collection to support abscess CBC w/ downtrending leukocytosis of 12.52. CRP 13.42. Continue IV Clindamycin q8h Dr Coto consulted, appreciate recommendations. ##hypokalemia K 3.4 on admission. Downtrended to 3.3 on 10meq KCl daily - continue Given additional 40meq 02/05 ##hypomagnesemia Mag 1.6 on admission. Now stable at 1.8 repleted in ED with magnesium 1gram IV will trend #Chronic HFpEF/permanent atrial fibrillation/nonobstructive CAD Echo 01/30/2025: EF 50-55%. mild aortic regurg. LA &RA mildly dilated. cont Eliquis for AC Continue Cardizem, metoprolol, and digoxin daily weight/I&O #COPD continue supplemented nasal cannula oxygen as needed for SPO2 equal to or less than 90% albuterol inhaler as needed #Adrenal insufficiency/steroid dependence Continue home hydrocortisone twice daily monitor, stress dose as necessary #GERD- Continue PPI #Overactive bladder-Continue home oxybutynin #RLS- Continue home pramipexole #Depression/anxiety/ADHD- Continue trazodone, Lamictal, Lexapro, Adderall, and buspirone #Allergies- Continue home montelukast, loratadine DVT prophylaxis: Eliquis Code: DNR/DNI Admission and Anticipated Discharge Date Admission Date: February 04, 2025 Supervising Physician Co-Signing Physician Notes The patient was not seen by me. The chart was reviewed. Case discussed with JACI Nieto. Agree with assessment and plan Subjective Jigna was seen & examined this morning. She reports the swelling in her face has improved minimally. States she is able to tolerate her diet & swallow without difficulties. She endorses no SOB or CP. Physical Exam Physical Exam: General: NAD, VS: BP 114/56, P64, Resp 16, temp 36.9 ENT: Left sided jaw/facial swelling noted with surrounding erythema that migrates into the left neck area, improved from 02/04. Oral mucous membranes are dry with noted lip cracking. Resp: normal respiratory effort Neuro: A&O x3 Skin: intact, no lesions noted Results & Data Results & Data Vital Signs (Past 12 Hours) Vital Signs Temp Pulse Pulse Resp BP BP Pulse Ox 02/05/25 09:30 75 02/05/25 08:12 36.7 C 75 20 124/60 95 02/05/25 07:17 79 02/05/25 03:00 36.8 C 91 02/05/25 02:11 81 16 126/67 90 O2 Del Method O2 Flow Rate 02/05/25 09:30 02/05/25 08:12 Nasal Cannula 3 02/05/25 07:17 02/05/25 03:00 Nasal Cannula 3 02/05/25 02:11 Nasal Cannula 2 PG Care Time/CCT Total # of Minutes Spent Total Time Spent with Patient: Total time spent is greater than 50% in coordination of care (as documented) at patient's floor/unit and/or counseling patient: Coding Level of Care Code 53118 SUB INP/OBS CARE 2/35MIN Diagnoses Acute parotitis K11.21 Longstanding persistent atrial fibrillation I48.11 Atrial fibrillation type: longstanding persistent Adrenal insufficiency E27.40 Chronic obstructive pulmonary disease J44.9 Chronic congestive heart failure I50.9 Hypokalemia E87.6 Hypomagnesemia E83.42 (2) Atrial fibrillation Atrial fibrillation type: longstanding persistent Qualified Code(s): I48.11 - Longstanding persistent atrial fibrillation
[2025-02-05] MEDS: BRIMONIDINE TARTRATE/TIMOLOL OPB SCH (21:28)
[2025-02-06 05:53] LABS: Hematocrit (blood only) 33.4 % (37.0-47.0); Hemoglobin 10.1 g/dl (12.0-16.0); Mean Corpuscular Hemoglobin 26.9 pg (25.0-34.0); Mean Corpuscular Volume 89.1 fL (80.0-100.0); Platelet Count 253 K/uL (130-400); RDW Standard Deviation 47.4 fL (36.4-46.3); Red Blood Count 3.75 M/uL (4.20-5.40); White Blood Count 11.32 K/ul (4.8-10.8)
[2025-02-06 06:10] LABS: Anion Gap 4.0 (3-11); Blood Urea Nitrogen 17.0 mg/dl (6-23); Calcium 9.9 mg/dl (8.6-10.3); Carbon Dioxide 32.0 mmol/L (21-32); Chloride 105.0 mmol/L (98-107); Creatinine Clr Calc Pharmacy 65.3 ml/min; Glucose 115.0 mg/dl (70-99(Fasting)); Magnesium 1.8 mg/dl (1.7-2.4); Potassium 4.1 mmol/L (3.5-5.1); Sodium 141.0 mmol/L (136-145)
--- NOTE | 2025-02-06 12:39 | Hospitalist Progress Note ---
Date of Service February 06, 2025 Assessment & Plan (1) Acute parotitis: (2) Atrial fibrillation: (3) Adrenal insufficiency: (4) Chronic obstructive pulmonary disease: (5) Chronic congestive heart failure: (6) Hypokalemia: (7) Hypomagnesemia: Plan Patient is a 84-year-old female with past medical history of permanent atrial fibrillation, lower extremity edema, lumbar radiculopathy, ambulatory dysfunction, right hip osteoarthritis and pain, long-term anticoagulant use, secondary adrenal insufficiency, nocturnal hypoxia requiring 3 L nasal cannula oxygen, COPD, aortic and mitral regurgitation, CAD, esophageal dysphagia, ADHD, benign familial tremor, Raynaud's disease, CKD stage III, depression, and asthma that presents with complaints of left-sided facial swelling that started yesterday. ##Left-sided parotitis/left facial cellulitis CT scan of neck with IV contrast supporting diagnosis>findings with evidence of severe left-sided parotitis which has worsened compared to 12/27/24, significant surrounding cellulitis which extends into the left anterior neck, no organized fluid collection to support abscess CBC w/ downtrending leukocytosis of 11.32. CRP downtrending to 8.44. Continue IV Clindamycin q8h Dr Coto consulted, appreciate recommendations. ##hypokalemia - resolved K 3.4 on admission. stable at 4.1 on 10meq KCl daily - continue ##hypomagnesemia Mag 1.6 on admission. Now stable at 1.8 repleted in ED with magnesium 1gram IV will trend #Chronic HFpEF/permanent atrial fibrillation/nonobstructive CAD Echo 01/30/2025: EF 50-55%. mild aortic regurg. LA &RA mildly dilated. cont Eliquis for AC Continue Cardizem, metoprolol, and digoxin daily weight/I&O #COPD continue supplemented nasal cannula oxygen as needed for SPO2 equal to or less than 90% albuterol inhaler as needed #Adrenal insufficiency/steroid dependence Continue home hydrocortisone twice daily monitor, stress dose as necessary #GERD- Continue PPI #Overactive bladder-Continue home oxybutynin #RLS- Continue home pramipexole #Depression/anxiety/ADHD- Continue trazodone, Lamictal, Lexapro, Adderall, and buspirone #Allergies- Continue home montelukast, loratadine DVT prophylaxis: Eliquis Code: DNR/DNI Admission and Anticipated Discharge Date Admission Date: February 04, 2025 Supervising Physician Co-Signing Physician Notes The patient was not seen by me. The chart was reviewed. Case discussed with JACI Nieto. Agree with assessment and plan Subjective Jigna was seen and examined this morning. She denies any complaints, reports her swelling has gone down on the left side of her face but the parotid area is boiler tender to touch & hard. Physical Exam Physical Exam: General: NAD, VS: BP 127/56; P89; Resp20; T36.8C ENT: left sided edema of parotid area. decreased in size, less erythematous. no drainage or abscess noted. Resp: normal respiratory effort, lungs clear to auscultation, diminished at bases. CV: RRR, no murmur Extremities: Moves all extremities, no edema Neuro: A&O x3 Skin: intact, no lesions noted Results & Data Results & Data Vital Signs (Past 12 Hours) Vital Signs Temp Pulse Pulse Resp BP BP Pulse Ox 02/06/25 11:42 36.8 C 89 20 127/56 L 95 02/06/25 11:38 02/06/25 08:53 76 02/06/25 08:05 36.6 C 76 20 127/67 95 02/06/25 07:17 65 02/06/25 02:17 36.9 C 68 16 115/63 91 02/06/25 01:18 Pulse Ox Pulse Ox O2 Del Method O2 Flow Rate O2 Flow Rate O2 Flow Rate 02/06/25 11:42 Room Air 02/06/25 11:38 93 91 0 0 02/06/25 08:53 02/06/25 08:05 Nasal Cannula 3 02/06/25 07:17 02/06/25 02:17 Nasal Cannula 3 02/06/25 01:18 Nasal Cannula 3 PG Care Time/CCT Total # of Minutes Spent Total Time Spent with Patient: Total time spent is greater than 50% in coordination of care (as documented) at patient's floor/unit and/or counseling patient: Coding Level of Care Code 37264 SUB INP/OBS CARE 2/35MIN Diagnoses Acute parotitis K11.21 Longstanding persistent atrial fibrillation I48.11 Atrial fibrillation type: longstanding persistent Adrenal insufficiency E27.40 Chronic obstructive pulmonary disease J44.9 Chronic congestive heart failure I50.9 Hypokalemia E87.6 Hypomagnesemia E83.42 (2) Atrial fibrillation Atrial fibrillation type: longstanding persistent Qualified Code(s): I48.11 - Longstanding persistent atrial fibrillation
[2025-02-07 07:20] LABS: Hematocrit (blood only) 34.2 % (37.0-47.0); Hemoglobin 10.7 g/dl (12.0-16.0); Mean Corpuscular Hemoglobin 27.9 pg (25.0-34.0); Mean Corpuscular Volume 89.1 fL (80.0-100.0); Platelet Count 274 K/uL (130-400); RDW Standard Deviation 46.5 fL (36.4-46.3); Red Blood Count 3.84 M/uL (4.20-5.40); White Blood Count 10.98 K/ul (4.8-10.8)
[2025-02-07 07:50] LABS: Anion Gap 3.0 (3-11); Blood Urea Nitrogen 16.0 mg/dl (6-23); Calcium 10.0 mg/dl (8.6-10.3); Carbon Dioxide 36.0 mmol/L (21-32); Chloride 103.0 mmol/L (98-107); Creatinine Clr Calc Pharmacy 61.9 ml/min; Glucose 115.0 mg/dl (70-99(Fasting)); Potassium 4.1 mmol/L (3.5-5.1); Sodium 142.0 mmol/L (136-145)
--- NOTE | 2025-02-07 10:09 | Discharge Summary ---
Discharge Summary Date of Service February 07, 2025 Principal Dx & Hospital Course #1 = Principal Diagnosis (1) Acute parotitis: (2) Atrial fibrillation: (3) Adrenal insufficiency: (4) Chronic obstructive pulmonary disease: (5) Chronic congestive heart failure: (6) Hypokalemia: (7) Hypomagnesemia: Plan ##Left-sided parotitis/left facial cellulitis Patient is a 84-year-old female with past medical history of permanent atrial fibrillation, lower extremity edema, lumbar radiculopathy, ambulatory dysfunction, right hip osteoarthritis and pain, long-term anticoagulant use, secondary adrenal insufficiency, nocturnal hypoxia requiring 3 L nasal cannula oxygen, COPD, aortic and mitral regurgitation, CAD, esophageal dysphagia, ADHD, benign familial tremor, Raynaud's disease, CKD stage III, depression, and asthma that presents with complaints of left-sided facial swelling that started 1 day prior to arrival. Recent admission for similar, reports that she did complete the full course of abx at that time. CT scan of neck with evidence of severe left-sided parotitis which has worsened compared to 12/27/24, significant surrounding cellulitis which extends into the left anterior neck, no organized fluid collection to support abscess. Leukocytosis and CRP have improved. Dr. Coto consulted - scans reviewed, clinically improved, no area to drain, recommend continued abx, will follow up outpatient, if becomes recurring issue could consider gland removal but trying to avoid. Continue supportive care - heat, massage, PO lozenges. Course of clindamycin TID at discharge x 10 days. ##hypokalemia - resolved ##hypomagnesemia - repleted IV and resolved. #Chronic HFpEF/permanent atrial fibrillation/nonobstructive CAD Echo 01/30/2025: EF 50-55%. mild aortic regurg. LA &RA mildly dilated. cont Eliquis for AC, Continue Cardizem, metoprolol, and digoxin and lasix. #COPD continue supplemented nasal cannula oxygen as needed for SPO2 equal to or less than 90% albuterol inhaler as needed #Adrenal insufficiency/steroid dependence - Continue home hydrocortisone twice daily #GERD- Continue PPI #Overactive bladder-Continue home oxybutynin #RLS- Continue home pramipexole #Depression/anxiety/ADHD- Continue trazodone, Lamictal, Lexapro, Adderall, and buspirone #Allergies- Continue home montelukast, loratadine dispo: discharge to home with HH, OP OMFS follow up Admission HPI Per Admitting Provider Patient is a 84-year-old female with past medical history of permanent atrial fibrillation, lower extremity edema, lumbar radiculopathy, ambulatory dysfunction, right hip osteoarthritis and pain, long-term anticoagulant use, secondary adrenal insufficiency, nocturnal hypoxia requiring 3 L nasal cannula oxygen, COPD, aortic and mitral regurgitation, CAD, esophageal dysphagia, ADHD, benign familial tremor, Raynaud's disease, CKD stage III, depression, and asthma that presents with complaints of left-sided facial swelling that started yesterday. She was seen in urgent care and prescribed clindamycin for diagnosed parotitis. She states she did take approximately 3 doses of the antibiotic. She did call an ambulance this morning due to a marked increase in the swelling to her left jaw area and left face. She reports she does have a history of parotitis and had an episode this past August where she was treated with antibiotics and recovered. She was also recently hospitalized with same presentation on 12/28/24. She was recently hospitalized for CHF and discharged. She denies dysphagia. She has been able to tolerate oral liquids. She denies pain to her left face/left jaw area. Only reports tenderness to palpation of area. She denies shortness of br eath. Discharge Exam General: NAD, VS as above HEENT: left partoid gland with some swelling, tender to touch, no erythema or warmth. Voice normal, managing secretions Resp: normal respiratory effort, lungs clear to auscultation anterioly CV: afib, no murmur, Extremities: Moves all extremities, no edema Neuro: A&O x3, Skin: intact, no lesions noted Discharge Plan Discharge Items Patient Disposition: Home - Home Health Services Reason For Visit: LEFT PAROTITIS Discharge Diagnosis: left parotitis Condition on Discharge: Fair Activity: Resume your previous activity Non-emergency contact: Primary Care Provider Call non-emergency contact if: you have any medication questions and your symptoms worsen Follow-up/Referrals: Faiza Costa MD [Primary Care Provider] - 02/08/25 10:20 am (keep appointment tomorrow ) Rony Coto DMD [Physician] - (f/u 1-2 weeks ) Diet: Heart Healthy Addtl Attending Provider Instructions: Ms. Alves, You were hospitalized after repeat swelling of your parotid gland. Thankfully this has responded well to IV antibiotics. You were seen by Dr. Coto, the oral surgeon, who did not recommend any surgery. You are to be continued on oral antibiotics on discharge. Recommend continued heat application - at least three times a day, massaging the area and continued lozenges/hard candy to keep your mouth moist. Would recommend you do these things even when you feel well to prevent future infections You should follow up with Dr. Coto. His number is listed above, if you do not hear from his office by Friday, please call his office. Keep appointment with Dr. Costa tomorrow Activity: You can do normal everyday activities as your body allows. Take rest breaks if you feel tired. Do not overexert. Stop activity if you have pain, shortness of breath or feel dizzy. Follow-up appointments: Make an appointment with your primary care physician within one week of discharge. A copy of this summary will be sent to them. Every time you see your primary care physician, or any other doctor, bring your medication list, and a list of questions. CONTACT YOUR PRIMARY CARE PROVIDER if you experience any of the following: Shortness of breath or difficulty breathing Fevers or chills Feeling tired with normal activity or experiencing dizziness or fainting Difficulty following your treatment plan, or difficulty taking medications CALL 911 OR GO TO THE EMERGENCY DEPARTMENT if you experience any of the following: Severe abdominal pain or nausea/vomiting Severe chest pain, or chest pain that radiates (moves) to your jaw or arm Sudden, severe shortness of breath or difficulty breathing Thank you for allowing us to participate in your care. Pending Studies at Discharge: No Stand-Alone Forms: My [facility] [employer], Smoking Cessation Medications and DC Order Prescriptions: New clindamycin HCl 300 mg capsule 600 mg PO Q8H 10 Days Qty: 60 0RF Continued aspirin 81 mg tablet,delayed release (DR/EC) 81 mg PO HS Qty: 30 5RF Patient Comments: Unable to verify OTC meds at this date/time. 02/04/25 multivitamin Tablet 1 tab PO QAM Qty: 30 5RF Patient Comments: Unable to verify OTC meds at this date/time. 02/04/25 [place] [place] [facility] [place] .Route Qty: 1 0RF Rx Instructions: As directed. (DME) nebulizers Misc See Rx Instructions .ROUTE .MEDSUPPLY Qty: 1 0RF Rx Instructions: New nebulizer (DME) nebulizer accessories Kit See Rx Instructions .ROUTE .MEDSUPPLY Qty: 2 0RF Rx Instructions: All tubing, connectors, and accessory pieces pramipexole 0.5 mg tablet 0.5 mg PO HS Qty: 90 1RF (DME) Select Disposable Briefs Misc See Rx Instructions .Route Qty: 6 3RF Rx Instructions: Pt would like 6 packs of briefs "pull ups" every other month gabapentin 400 mg capsule 400 mg PO BID Qty: 60 1RF digoxin 125 mcg (0.125 mg) tablet 125 mcg PO QAM Qty: 90 1RF oxybutynin chloride 5 mg tablet extended release 24hr 5 mg PO QAM Qty: 90 1RF atorvastatin [Lipitor] 40 mg tablet 40 mg PO HS Qty: 90 1RF montelukast [Singulair] 10 mg tablet 10 mg PO HS Qty: 90 1RF pantoprazole [Protonix] 40 mg tablet,delayed release (DR/EC) 40 mg PO QAM Qty: 90 1RF metoprolol tartrate 25 mg tablet 25 mg PO BID Qty: 60 11RF Eliquis 5 mg tablet 5 mg PO BID Qty: 60 11RF Rx Instructions: TAKE 1 TABLET BY MOUTH IN THE MORNING AND AT BEDTIME travoprost 0.004 % drops 1 drp OPB HS Patient Comments: both eyes dextroamphetamine-amphetamine [Adderall] 10 mg tablet 10 mg PO DAILY@1400 Patient Comments: take 20 mg morning and 10 mg in afternoon. Rx Instructions: 10mg IN AFTERNOON. Metamucil (sugar) Powder 1 tbsp PO QPM PRN (Reason: Constipation) Patient Comments: Unable to verify OTC meds at this date/time. 02/04/25 [place] [facility] [place] .Route Qty: 1 0RF Rx Instructions: As directed R26.2, R53.1 potassium chloride 10 mEq tablet extended release 10 meq PO DAILY Qty: 90 3RF magnesium oxide 400 mg magnesium tablet 400 mg PO BID Qty: 90 3RF bumetanide 1 mg tablet 1 mg PO QAM Qty: 90 3RF (DME) Oxygen Home Liters Per Minute See Rx Instructions .Route Rx Instructions: 3L/min O2 for use when sleeping. Pt is mouth breather, needs appropriate mask naloxone [Narcan] 4 mg/actuation spray,non-aerosol 4 mg intranasal Q3M PRN (Reason: opioid overdose) Qty: 2 0RF Rx Instructions: spray 1 dose into ONE nostril; alternate nostrils w each dose until patient responsive or help arrives biotin 10 mg Tablet 10 mg PO QAM Patient Comments: Unable to verify OTC meds at this date/time. 02/04/25 ascorbic acid (vitamin C) [Vitamin C] 500 mg Tablet 500 mg PO QAM Patient Comments: Unable to verify OTC meds at this date/time. 02/04/25 guaifenesin [Mucinex] 600 mg Tablet Extended Release 12hr 600 mg PO Q6H PRN (Reason: Congestion) Patient Comments: Unable to verify OTC meds at this date/time. 02/04/25 cyanocobalamin (vitamin B-12) 2,500 mcg tablet 2,500 mcg PO QAM Patient Comments: Unable to verify OTC meds at this date/time. 02/04/25 loratadine 10 mg Tablet 10 mg PO QAM Patient Comments: Unable to verify OTC meds at this date/time. 02/04/25 albuterol sulfate [Ventolin HFA] 90 mcg/actuation HFA aerosol inhaler 2 puff Inhalation Q4 PRN (Reason: asthma) albuterol sulfate 2.5 mg /3 mL (0.083 %) Solution For Nebulization 3 mg INHALATION Q6 PRN (Reason: asthma attacks) Patient Comments: pt reports albuterol nebilizer for asthma attacks/none in yrs. brimonidine-timolol [Combigan] 0.2-0.5 % drops 1 drp OPB BID Patient Comments: both eyes escitalopram oxalate [Lexapro] 20 mg tablet 20 mg PO QAM Qty: 0 0RF trazodone 150 mg tablet 225 mg PO HS buspirone 5 mg tablet 5 mg PO BID lamotrigine 150 mg tablet 150 mg PO HS dextroamphetamine-amphetamine 10 mg tablet 20 mg PO DAILY@0600 diltiazem HCl 180 mg capsule,extended release 24hr 360 mg PO QAM Rx Instructions: TWO CAPSULES IN THE AM zinc gluconate 50 mg Tablet 50 mg PO QAM Patient Comments: Unable to verify OTC meds at this date/time. 02/04/25 cholecalciferol (vitamin D3) [Vitamin D3] 125 mcg (5,000 unit) Tablet 125 mcg PO QAM Patient Comments: Unable to verify OTC meds at this date/time. 02/04/25 vitamin E 268 mg (400 unit) Capsule 800 mg PO DAILY Patient Comments: Unable to verify OTC meds at this date/time. 02/04/25 acetaminophen [Tylenol Extra Strength] 500 mg tablet 1,000 mg PO BID MDD 3G Patient Comments: Unable to verify OTC meds at this date/time. 02/04/25 Rx Instructions: TAKES AT 0600 & 1400 hydrocortisone 10 mg tablet 20 mg PO QAM@0600 Rx Instructions: Take 20 mgfirst thing in the morning; take 10 8 hours later. Double in times of stress Second dose must begin exactly 8 hours after the morning dose. hydrocortisone 10 mg tablet 10 mg PO .Daily @ 1400 Rx Instructions: TAKE 1&20 mg TABS FIRST THING IN THE MORNING AND 10 mg TAB 8 HOURS LATER. second dose must be exactly 8 hours after morning dose. DOUBLE IN TIMES OF STRESS. Held calcium carbonate-vitamin D3 [Calcium 600 + D(3)] 600 mg-10 mcg (400 unit) Tablet 0 tab PO BID Hold Instructions: Provider's Order Patient Comments: On hold until 02/08/25 when PCP can test calcium levels. 02/04/25 Discontinued clindamycin HCl 300 mg capsule 600 mg PO BID 7 Days Qty: 28 0RF Rx Instructions: Start Date 02/03/25 x 7 days Discharge Orders: Discharge Order (Routine); Ordered 02/07/25 Ordered By: Rhona Farnsworth/Other Patient Handouts: ED Salivary Gland Infection Admission Data Admit Date/Time: 02/04/25 11:28 Attending Provider: Asha Dawn Admit Provider: Stef Fletcher Primary Care Provider: Faiza Costa Other Providers: Stef Fletcher; Angus Keyes; Rony Coto; [facility] F[facility] Hospital Stay Data Consultations 02/04/25 10:23 ED Decision to Admit Stat 02/04/25 10:57 ED Decision to Admit Stat 02/04/25 11:33 Consult Oromaxillofacial Surgery Routine Diagnostic Imagining Performed Chest X-Ray 02/04/25 06:46 EXAM: XR chest 1V portable CLINICAL HISTORY: Weakness. TECHNIQUE: An X-ray image of the chest was obtained in AP projection. COMPARISON: Prior radiograph dated 01/28/2025 was reviewed for comparison. FINDINGS: Pulmonary Parenchyma: There is no evidence of consolidation or collapse bilaterally. No discrete pleuropulmonary nodularity is detected on either side. There is no evidence of pleural effusion or pleural thickening, which is unchanged. Heart and Mediastinum: There is a redemonstration of apparent cardiomegaly despite the AP supine projection. The nahed appear lobulated and is interval more prominent on the current radiograph, which could be due to vascular congestive changes. Bony Thorax: The visualized bony thorax appears intact without evidence of fractures. 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 Soft Tissues: Soft tissues overlying the chest wall appear grossly unremarkable. IMPRESSION: 1. There is a redemonstration of apparent cardiomegaly with mild congestion. 2. No evidence of consolidation or collapse is seen bilaterally. 3. Clinical correlation is advised. Electronically signed by Milton Carlos 02-04-2025 08:49 AM Soft Tissue Neck CT 02/04/25 06:46 CT SCAN OF THE NECK WITH IV CONTRAST CLINICAL HISTORY: Left facial swelling COMPARISON STUDY: CT of the neck dated 12/27/2024. Chest CT dated 08/06/2013. TECHNIQUE: Following the IV administration of 94 cc of Optiray 320, CT scan of the soft tissues of the neck was performed from the skull base to the upper chest. Images are reviewed in the axial, sagittal, and coronal planes. IV contrast was administered without complication. A dose lowering technique was utilized adhering to the principles of ALARA. CT DOSE: 330.96 mGy.cm FINDINGS: Pharynx: There is mild infiltration of the left parapharyngeal fat. There is also mild infiltration of the superior prevertebral/retropharyngeal fat. The right parapharyngeal fat is preserved. The pharyngeal airway remains patent. There is no evidence of mass lesion. The vocal cords are symmetric. The epiglottis is normal. Lymphadenopathy: Prominent left cervical chain lymph nodes are likely reactive. These measure up to 9 mm in length. Multiple enlarged lymph nodes are seen. Thyroid: Normal in size and attenuation. Salivary glands: The left parotid gland is enlarged and heterogeneous with patchy enhancement and surrounding inflammation. The appearance is consistent with a parotitis. Inflammatory change and trace fluid overlies the parotid gland with dermal thickening. This extends inferiorly into the anterior left lower neck and is consistent with a surrounding cellulitis. No organized fluid collection is seen to suggest abscess. No calcified sialoliths are clearly seen The right parotid gland and the submandibular glands are within normal limits. Brain parenchyma: The visualized brain parenchyma at the skull base is normal in appearance. Vascular structures: The carotid arteries and jugular veins are patent bilaterally noting atherosclerotic calcification of the carotid bulbs. Skeletal structures: The skeletal structures are osteopenic. Imaged portions of the calvarium at the skull base are within normal limits. The cervical spine appears intact noting multilevel spondylosis. A right shoulder arthroplasty is in place. Sinuses and mastoids: There is mild mucosal thickening within the sphenoid sinus. Secretions are noted on the left. The remaining paranasal sinuses are clear. The mastoid air cells are well pneumatized. Cerumen is noted in the external auditory canals. Orbits: The bony orbits are intact. Orbital contents are within normal limits noting bilateral ocular lens implants. Lung apices: Emphysematous change is noted at the apices. There are small right apical pulmonary nodules which measure up to 4 mm (axial images #303, #322, and #326. These 1 likely also present on a [address] and are not highly suspicious. IMPRESSION: 1. There is evidence of a severe left-sided parotitis. This has worsened as compared to 12/27/2024. 2. There is significant surrounding cellulitis which extends into the left anterior lower neck. No organized fluid collection is seen to suggest abscess. 3. There is also infiltration of the left parapharyngeal fat, as well as mild infiltration of the retropharyngeal/prevertebral fat. This is also related to cellulitis/infection. 4. Mild emphysema. 5. Additional findings as above. ACT 112: Negative or not required by law. Electronically signed by: Sin Morales M.D. 02/04/2025 9:17 AM Pending Results Patient Have Any Pending Studies at Discharge: No Discharge Instructions Given to Patient (Per Discharging Provider) Ms. Alves, You were hospitalized after repeat swelling of your parotid gland. Thankfully this has responded well to IV antibiotics. You were seen by Dr. Coto, the oral surgeon, who did not recommend any surgery. You are to be continued on oral antibiotics on discharge. Recommend continued heat application - at least three times a day, massaging the area and continued lozenges/hard candy to keep your mouth moist. Would recommend you do these things even when you feel well to prevent future infections You should follow up with Dr. Coto. His number is listed above, if you do not hear from his office by Friday, please call his office. Keep appointment with Dr. Costa tomorrow Activity: You can do normal everyday activities as your body allows. Take rest breaks if you feel tired. Do not overexert. Stop activity if you have pain, shortness of breath or feel dizzy. Follow-up appointments: Make an appointment with your primary care physician within one week of discharge. A copy of this summary will be sent to them. Every time you see your primary care physician, or any other doctor, bring your medication list, and a list of questions. CONTACT YOUR PRIMARY CARE PROVIDER if you experience any of the following: Shortness of breath or difficulty breathing Fevers or chills Feeling tired with normal activity or experiencing dizziness or fainting Difficulty following your treatment plan, or difficulty taking medications CALL 911 OR GO TO THE EMERGENCY DEPARTMENT if you experience any of the following: Severe abdominal pain or nausea/vomiting Severe chest pain, or chest pain that radiates (moves) to your jaw or arm Sudden, severe shortness of breath or difficulty breathing Thank you for allowing us to participate in your care. Total Time Total Time Spent Total Time Spent (In Minutes): Time spent day of discharge 38 minutes including direct patient care, medication reconciliation, documentation, review of labs and images, and coordination of care. Case discussed with Dr. Coto Coding Level of Care Code 23254 INP/OBS DISCH >30 MIN Diagnoses Acute parotitis K11.21 Longstanding persistent atrial fibrillation I48.11 Atrial fibrillation type: longstanding persistent Adrenal insufficiency E27.40 Chronic obstructive pulmonary disease J44.9 Chronic congestive heart failure I50.9 Hypokalemia E87.6 Hypomagnesemia E83.42
[2025-02-07 11:14] VITALS: PULSE 84; RESP 22; TEMP 98.6; O2SAT 92
[2025-02-07 11:30] VITALS: BP 123/69
--- NOTE | 2025-02-07 22:11 | Oral/Maxillofacial Consult ---
Date of Consultation February 07, 2025 Assessment & Plan (1) Acute parotitis: (2) Facial cellulitis: History of Present Illness Attending Physician: Asha Dawn MD History of Present Illness I was asked to see Mrs. Amato regarding a left parotid gland infection. I saw her at approximately 9:30 AM in her room on February 07, 2025. Mrs. Amato related to me that this is the 3rd or 4th time that she has developed parotid swelling on the left side. Each time it was treated successfully with antibiotics. Today the swelling on the left side has subsided dramatically. She showed me a photo of her swelling when she came into the emergency room a few days ago. It was quite impressive. It is gone down about 85%. Is cloth desizing range tender and the new CT scan does not show any collection of fluid that is assessable for drainage. Mrs. Alves complains of severe dry mouth. She is taking the [id number] Biotene products to help with her saliva production. Unfortunately this has not been very successful. I was able to palpate the parotid gland duct and did not see any type of fluid or pus emanating from the duct. I reviewed the CT scan and there does not seem to be any type of salivary stone causing ductal obstruction. There is also no evidence that this is related to any type of parotid gland tumor. However with all of the swelling that is within the gland may be difficult to ascertain if indeed there is a parotid gland tumor. However given the history of recurrence I doubt that this is the case. At this time I do not feel that it is necessary to keep her in the hospital for IV antibiotics. I would suggest that she be discharged on an oral antibiotic I also instructed her on massaging the area with using heat. I will set up an appointment with her with one of my ENT colleagues at our [place] third-floor office. Mrs. Alves tells me that usually after course of antibiotics that the gland will subside back to normal and she would not feel any Pain or pressure. I do not feel that it is necessary to consider doing any type of fine-needle biopsy at this time but that may be something to consider going forward. Of interest is the fact that I asked her if she does feel any pressure when she is eating due to the fact that the gland itself is producing more saliva and if there is some obstruction it would cause some of the swelling which is very common prior to eating. She states that this is usually not the case. She tells me that she usually does fine for a period of time and then out of the clear blue kaity the swelling develops. I spoke to to her physicians fitness assistant and we are in agreement that Mrs. Alves can be discharged today on oral antibiotics and using the heat massage as I discussed. I will have my ear nose and throat office personnel call out to Mrs. Alves to set up an appointment for an evaluation with one of my ENT colleagues. Allergies Allergy/AdvReac Type Severity Reaction Status Date / Time procaine Allergy Severe novacaine Verified 02/04/25 12:07 - anaphylaxis, mouth swelling, dyspnea chocolate flavor Allergy Intermediate hx rash Verified 02/04/25 12:07 Penicillins Allergy Unknown per Verified 02/04/25 12:07 allergy test azithromycin AdvReac Intermediate throat Verified 02/04/25 12:07 burned, lost weight fluticasone AdvReac Intermediate chest pain Verified 02/04/25 12:07 (from Advair) moxifloxacin AdvReac Intermediate N/V Verified 02/04/25 12:07 salmeterol AdvReac Intermediate chest pain Verified 02/04/25 12:07 (from Advair) zolpidem AdvReac Intermediate sleep Verified 02/04/25 12:07 walking NSAIDS (Non-Steroidal AdvReac Unknown advised to Verified 02/04/25 12:07 Anti-Inflamma avoid d/t ulcer hx Home Medications Medication Instructions Recorded Confirmed Type psyllium seed (sugar) oral powder 1 tbsp PO QPM PRN Constipation 03/03/20 02/04/25 History (Metamucil (sugar) oral powder) aspirin 81 mg tablet,delayed 81 mg PO HS #30 tabs 08/18/20 02/04/25 Rx release multivitamin 1 tab PO QAM #30 tabs 09/13/20 02/04/25 Rx Scooter #1 ea 04/03/21 02/02/25 Rx travoprost 0.004 % eye drops 1 drp OPB HS 05/03/21 02/04/25 History ascorbic acid (vitamin C) 500 mg 500 mg PO QAM 11/12/22 02/04/25 History tablet (Vitamin C) biotin 10 mg tablet 10 mg PO QAM 11/12/22 02/04/25 History guaifenesin 600 mg tablet, 600 mg PO Q6H PRN Congestion 11/12/22 02/04/25 History extended release 12 hr (Mucinex) nebulizer accessories #2 ea 03/31/23 02/02/25 Rx nebulizers #1 ea 03/31/23 02/02/25 Rx cyanocobalamin (vitamin B-12) 2,500 mcg PO QAM 05/06/23 02/04/25 History 2,500 mcg tablet buspirone 5 mg tablet 5 mg PO BID Anxiety 02/18/24 02/04/25 History albuterol sulfate 2.5 mg/3 mL 3 mg inhalation Q6 PRN asthma 02/20/24 02/04/25 H istory (0.083 %) solution for nebulization attacks albuterol sulfate 90 mcg/actuation 2 puff inhalation Q4 PRN asthma 02/20/24 02/04/25 History aerosol inhaler (Ventolin HFA) loratadine 10 mg tablet 10 mg PO QAM 02/20/24 02/04/25 History pramipexole 0.5 mg tablet 0.5 mg PO HS #90 tabs 05/17/24 02/04/25 Rx brimonidine 0.2 %-timolol 0.5 % 1 drp OPB BID 06/14/24 02/04/25 History eye drops (Combigan) escitalopram oxalate 20 mg tablet 20 mg PO QAM #0 tabs 06/18/24 02/04/25 Rx (Lexapro) Wheeled Walker #1 ea 07/08/24 02/02/25 Rx diaper,brief,adult,disposable #6 ea 08/06/24 02/02/25 Rx (Select Disposable Briefs) calcium 600 mg (as 0 tab PO BID 09/23/24 02/04/25 History carbonate)-vitamin D3 10 mcg (400 unit) tablet (Calcium 600 + D(3)) cholecalciferol (vitamin D3) 125 125 mcg PO QAM 09/23/24 02/04/25 History mcg (5,000 unit) tablet (Vitamin D3) dextroamphetamine-amphetamine 10 20 mg PO DAILY@0600 09/23/24 02/04/25 History mg tablet diltiazem HCl 180 mg capsule,24 360 mg PO QAM 09/23/24 02/04/25 History hr,extended release lamotrigine 150 mg tablet 150 mg PO HS 09/23/24 02/04/25 History zinc gluconate 50 mg tablet 50 mg PO QAM 09/23/24 02/04/25 History gabapentin 400 mg capsule 400 mg PO BID #60 caps 10/08/24 02/04/25 Rx atorvastatin 40 mg tablet (Lipitor) 40 mg PO HS #90 tabs 12/16/24 02/04/25 Rx digoxin 125 mcg (0.125 mg) tablet 125 mcg PO QAM #90 tabs 12/16/24 02/04/25 Rx montelukast 10 mg tablet 10 mg PO HS #90 tabs 12/16/24 02/04/25 Rx (Singulair) oxybutynin chloride 5 mg 5 mg PO QAM #90 tabs 12/16/24 02/04/25 Rx tablet,extended release 24 hr pantoprazole 40 mg tablet,delayed 40 mg PO QAM #90 tabs 12/16/24 02/04/25 Rx release (Protonix) acetaminophen 500 mg tablet 1,000 mg PO BID Pain 12/23/24 02/04/25 History (Tylenol Extra Strength) vitamin E 268 mg (400 unit) capsule 800 mg PO DAILY 12/23/24 02/04/25 History metoprolol tartrate 25 mg tablet 25 mg PO BID #60 tabs 12/24/24 02/04/25 Rx Oxygen Home 01/05/25 02/02/25 History dextroamphetamine-amphetamine 10 10 mg PO DAILY@1400 01/05/25 02/04/25 History mg tablet (Adderall) hydrocortisone 10 mg tablet 10 mg PO .Daily @ 1400 01/05/25 02/02/25 History hydrocortisone 10 mg tablet 20 mg PO QAM@0600 01/05/25 02/02/25 History naloxone 4 mg/actuation nasal 4 mg intranasal Q3M PRN opioid 01/05/25 02/04/25 Rx spray (Narcan) overdose #2 ea apixaban 5 mg tablet (Eliquis) 5 mg PO BID #60 tabs 01/12/25 02/04/25 Rx trazodone 150 mg tablet 225 mg PO HS 01/21/25 02/04/25 History bumetanide 1 mg tablet 1 mg PO QAM #90 tabs 02/01/25 02/04/25 Rx magnesium oxide 400 mg PO BID #90 tabs 02/01/25 02/04/25 Rx potassium chloride 10 mEq 10 meq PO DAILY #90 tabs 02/01/25 02/04/25 Rx tablet,extended release clindamycin HCl 300 mg capsule 600 mg (2 x 300 mg) PO Q8H 10 days 02/07/25 Rx #60 caps Patient History Medical History History of recent hospitalization [facility] 12/28-12/29: dx acute parotitis L side, submandibular gland infection; tx with IV abx and home on oral abx; pt states on 01/21/25 sx resolved Raynauds disease Benign familial tremor Ambulatory dysfunction pt states uses cane/walker; worst in AM R groin/RUE pain as well as LBP Right groin pain Lumbar radiculopathy Nocturnal hypoxia 3L O2 HS Secondary adrenal insufficiency daily steroid ADHD Atrial fibrillation Acute parotitis Submandibular gland infection Scapular fracture (06/14/24) Acute fracture at the base of the acromion from a fall. Pre-diabetes CKD (chronic kidney disease) pt denies Mitral regurgitation Left ventricular systolic dysfunction EF 45-50% on 03/2023 echo; > 55% 12/2023 stress echo CAD (coronary artery disease) mild in 2003 per [facility] records Aortic regurgitation mild to moderate on 03/2023 echo Esophageal dysphagia Asthma COPD (chronic obstructive pulmonary disease) Anxiety Raynauds disease Acid reflux controlled, stable per pt Tremor hands History of gastric ulcer History of sepsis (2022) History of skin cancer removed Difficult intravenous access Rectocele Arthritis of neck mild limitation rom. 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 Rheumatoid arthritis (02/25/13) previously followed with Rheumatology but no longer following Surgical History Status post reverse total replacement of right shoulder (~03/2024) History of lumbar fusion x2 most recent [address] Dr. Lerma History of foot surgery toes on left foot - pt confirms a total of 4 left foot surgeries. History of foot surgery left removal of bone spur S/P foot surgery, left LEFT FOOT LITTLE TOE AMPUTATED 2022. S/P foot surgery, left left ankle/foot reconstruction (2019) History of total hip arthroplasty right hip H/O toe surgery left foot History of total knee replacement bilateral; right TKA: 05/22/17: SAB x1 at L3-L4 + PNB at [facility] S/P hardware removal right ankle S/P laparotomy removed adhesions to relieve bowel strangulation S/P ankle arthrodesis right ankle History of open reduction and internal fixation (ORIF) procedure right ankle H/O elbow surgery bilateral S/P AMANDA (total abdominal hysterectomy) H/O thumb surgery right x2 History of appendectomy History of colonoscopy History of esophagogastroduodenoscopy (EGD) History of surgical removal of skin lesion History of tonsillectomy Family History Family/Other Coronary heart disease Heart disease Cancer Hypertension Brother Prostate cancer Benign familial tremor Father Benign familial tremor Mother Malignant melanoma Aunt Rheumatoid arthritis Other No family history of adverse response to anesthesia Denies family history of Ovarian cancer Myocardial infarction Breast cancer Colorectal cancer Social History Smoking Status: Former smoker Tobacco Type: Cigarettes Age Started Using Tobacco: 19 (intermittently quit throughout the years); Age Quit Using Tobacco: 81; packs per day: 0.1; Cigarettes Per Day: 2; Second Hand Exposure: No; Do You Dip or Chew Tobacco: No; Hx Alcohol Use: Yes Alcohol type: beer Alcohol Intake Frequency: Monthly or Less Alcohol Intake Frequency Comment: rarely Hx Substance Use: No Preferred Language: Mohawk Communication Ability: Effective Visual Impairment: No Limitations Hearing Ability: Hard of Hearing Oyster Sorter Required: No Beliefs That Will Affect Care: None marital status: Current Living Situation: Alone Current Living Situation Comment: [facility] 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al status: retired 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: 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[employer], 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 How many Children do You have: 2 Feels Safe at Home: Yes Childhood Exposure to Second-Hand Smoke: No Diet: regular caffeine: Yes during the past year weight has: remained stable Dental Care, Regularly: No Physical Activity Frequency: Daily Seatbelt Use: always Sunscreen Use: Yes (sometimes ) Assistive Devices: Cane and Walker Results & Data Vital Signs (Past 12 Hours) Vital Signs Temp Pulse Resp BP BP Pulse Ox O2 Del Method 02/07/25 11:29 37.0 C 84 22 123/69 114/62 92 02/07/25 11:13 37.0 C 84 22 114/62 92 Room Air 02/07/25 10:20 Room Air PG Care Time/CCT Total # of Minutes Spent Total Time Spent with Patient: Total time spent is greater than 50% in coordination of care (as documented) at patient's floor/unit and/or counseling patient: Coding Level of Care Code 61634 INT INP/OBS CARE 140MIN Diagnoses Acute parotitis K11.21 Facial cellulitis L03.211
== END 2025-02-07 12:09 | disposition home health service (06) | DRG 155 ==
LOC: SUATTDRO → ED 06:30 → INTOOBSV 11:28 → OBSVTOIN 11:28 → EDINP 11:28 → SUATTDRO 11:28 → 2N 14:52

== ENCOUNTER 2025-02-19 12:59 | Observation (INO) ==
[2025-02-19 14:17] LABS: Hematocrit (blood only) 40.1 % (37.0-47.0); Hemoglobin 12.2 g/dl (12.0-16.0); Immature Granulocytes # (auto) 0.11 K/uL (0.01-0.20); Immature Granulocytes % (auto) 1.0 %; Mean Corpuscular Hemoglobin 26.5 pg (25.0-34.0); Mean Corpuscular Volume 87.0 fL (80.0-100.0); Platelet Count 303 K/uL (130-400); RDW Standard Deviation 48.3 fL (36.4-46.3); Red Blood Count 4.61 M/uL (4.20-5.40); White Blood Count 11.25 K/ul (4.8-10.8)
--- NOTE | 2025-02-19 14:20 | Emergency Department Note ---
Impression & Plan Intractable low back pain, Generalized weakness, Shortness of breath ED Provider Note NAME: MARJORIE KNOWLES AGE: 84 SEX: F : 1940 ARRIVES VIA: Ambulance INFORMANT: Patient ED PROVIDER(S): Brendon Joe MD CHIEF COMPLAINT: Back pain, shortness of breath PLAN: Disposition: Admit MEDICAL DECISION MAKING: The patient a pleasant 84-year-old woman with past medical history of atrial fibrillation on Eliquis, CHF, lumbar radiculopathy, ambulatory dysfunction, history of osteoarthritis, secondary adrenal insufficiency, nocturnal hypoxia on home oxygen, COPD, CAD, esophageal dysphagia, ADHD, Raynaud's, CKD, depression who presents Emergency Department via EMS for evaluation of worsening back pain and bilateral flanks over the past week which became severe today. She has any blood in her urine or burning with urination. She denies any GI or symptoms. She denies any falls. She denies any movements where she feels she may have caused any muscular strain. On evaluation the patient is uncomfortable no distress, afebrile with stable vital signs. She appears clinically dry. She exhibits discomfort with palpation of bilateral flanks. There is no midline CTL spine tenderness palpation or step-offs. She has normal strength bilateral lower extremities. EKG without overt acute ischemia. CXR negative for acute cardiopulmonary process per my personal preliminary review/interpretation. WBC 11.5 K with neutrophilia but no left shift, nonspecific. H/H within normal limits. Platelets within normal limits. Chemistry without metabolic acidosis. Potassium 3.3. Calcium 10.4, CT of the abdomen and pelvis and lumbar spine were negative for acute abnormalities. Upon reevaluation patient reported some improvement however still uncomfortable and did not feel she could get up and ambulate. She did agree with plan for admission for further management. Additional treatment provided with IV dexamethasone and IV morphine. UA collection still pending. Case discussed with [facility]. Bauman, [facility] [place] who will evaluate the patient for admission. UA subsequently demonstrates positive nitrates and 1+ bacteria. Further management per admitting team. Triage Nursing notes reviewed and agree them. Prior/external medical records reviewed Vital Signs: reviewed Differential diagnosis: Musculoskeletal, disc herniation, fracture, metastatic disease, cord compression, discitis, sciatica, cauda equina, infection, aortic disease, renal colic, gastrointestinal, as well as other pathologies. ER treatment provided: See below. Diagnostics interpreted by me: ECG: Atrial fibrillation, 77 bpm, no ectopy, no overt ST elevation or depression, QTc 416, QRS 94. Cardiac Monitoring: An order for continuous cardiac monitoring was placed and demonstrated Atrial fibrillation, 77 bpm, no ectopy. Laboratory studies: See below Imaging studies: See below Consultation(s): Dr. Bauman, [facility] [place]. HPI: Per MDM. ROS: See above HPI for pertinent positives & negatives. A total of 10 systems reviewed and were otherwise negative. VITALS:See Below PHYSICAL EXAMINATION: GENERAL: Awake, alert, uncomfortable-appearing, in no distress HENT: Normocephalic, atraumatic. Oropharynx with dry mucous membranes and otherwise unremarkable EYES: Normal conjunctiva. Sclera non-icteric. NECK: Supple. No nuchal rigidity. FROM. No JVD. No midline tenderness to palpation or step-offs. RESPIRATORY: Clear to auscultation. CARDIAC: Regular rate, irregular rhythm. Extremities warm and well perfused. Pulses equal. ABDOMEN: Soft, non-distended. No tenderness to palpation. No rebound or guarding. No masses. MUSCULOSKELETAL: Chest examination reveals no tenderness. The back is symmetrical on inspection without obvious abnormality. No midline tenderness to palpation or step-offs. Discomfort with palpation of bilateral CVA's without discrete tenderness. No joint edema. LOWER EXTREMITIES: Calves are equal size bilaterally and non-tender. No edema. No discoloration. NEURO: Normal sensorium. No sensory or motor deficits noted. SKIN: No rash or jaundice noted. Brendon Joe MD Past Med/Surg History Problem List (Updated 02/20/25 @ 05:47 by Brendon Joe MD) Shortness of breath (Acute) Generalized weakness (Acute) Intractable low back pain (Acute) Mid back pain on right side Acute parotitis (Acute) Hypomagnesemia (Acute) Chronic congestive heart failure Encounter for monitoring diuretic therapy Hypokalemia (Acute) (HFpEF) heart failure with preserved ejection fraction Dysphagia Lumbar disc herniation with radiculopathy Calcification of intervertebral cartilage or disc of lumbar region Right lumbar radiculopathy Pain in right lumbar region of back (Acute) Chronic right hip pain (Acute) Greater trochanteric bursitis of right hip Rotator cuff arthropathy of left shoulder Secondary adrenal insufficiency Anticoagulant long-term use Leg length discrepancy Adrenal insufficiency Hypercalcemia Orthostatic hypotension Nocturnal hypoxia o2 3L HS. Fracture of acromion of scapula (06/14/24) Acute fracture at the base of the acromion from a fall. Atrial fibrillation Ambulatory dysfunction Recurrent falls Contusion of knee, right (Acute) Generalized weakness (Acute) Obstructive lung disease Acromioclavicular joint arthritis Rotator cuff arthropathy of right shoulder Left ventricular systolic dysfunction Mitral regurgitation Aortic regurgitation Prediabetes Nonobstructive atherosclerosis of coronary artery Glenohumeral arthritis SI (sacroiliac) joint dysfunction Osteoarthritis of ankle, left CAD (coronary artery disease) Mild- luminal irregularities only on 2003 cardiac cath Esophageal dysphagia Chronic constipation with overflow incontinence ADHD Stable Chronic obstructive pulmonary disease stable Allergic rhinitis (Chronic) Anxiety disorder (Chronic) follows with psych Benign familial tremor (Chronic) Cervicalgia (Chronic) Former smoker (Chronic) Fusion of spine, lumbar region (Chronic) Glaucoma (Chronic) Hyperlipidemia (Chronic) Raynaud's disease (Chronic) Rectocele (Chronic) Restless legs syndrome (Chronic) SNHL (sensorineural hearing loss) (Chronic) Solitary pulmonary nodule (Chronic) Urge incontinence of urine (Chronic) Vitamin D deficiency (Chronic) CKD (chronic kidney disease) stage 3, GFR 30-59 ml/min (Chronic) Depression (Chronic) Anemia (Chronic) Asthma (Chronic) Lumbar stenosis with neurogenic claudication (Chronic) Medical History History of recent hospitalization [facility] 12/28-12/29: dx acute parotitis L side, submandibular gland infection; tx with IV abx and home on oral abx; pt states on 01/21/25 sx resolved Raynauds disease Benign familial tremor Ambulatory dysfunction pt states uses cane/walker; worst in AM R groin/RUE pain as well as LBP Right groin pain Lumbar radiculopathy Nocturnal hypoxia 3L O2 HS Secondary adrenal insufficiency daily steroid ADHD Atrial fibrillation Acute parotitis Submandibular gland infection Scapular fracture (06/14/24) Acute fracture at the base of the acromion from a fall. Pre-diabetes CKD (chronic kidney disease) pt denies Mitral regurgitation Left ventricular systolic dysfunction EF 45-50% on 03/2023 echo; > 55% 12/2023 stress echo CAD (coronary artery disease) mild in 2003 per MD cardiology records Aortic regurgitation mild to moderate on 03/2023 echo Esophageal dysphagia Asthma COPD (chronic obstructive pulmonary disease) Anxiety Raynauds disease Acid reflux controlled, stable per pt Tremor hands History of gastric ulcer History of sepsis (2022) History of skin cancer removed Difficult intravenous access Rectocele Arthritis of neck mild limitation rom. 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 Rheumatoid arthritis (02/25/13) previously followed with Rheumatology but no longer following Surgical History Status post reverse total replacement of right shoulder (~03/2024) History of lumbar fusion x2 most recent [address] Dr. Lerma History of foot surgery toes on left foot - pt confirms a total of 4 left foot surgeries. History of foot surgery left removal of bone spur S/P foot surgery, left LEFT FOOT LITTLE TOE AMPUTATED 2022. S/P foot surgery, left left ankle/foot reconstruction (2019) History of total hip arthroplasty right hip H/O toe surgery left foot History of total knee replacement bilateral; right TKA: 05/22/17: SAB x1 at L3-L4 + PNB at [facility] S/P hardware removal right ankle S/P laparotomy removed adhesions to relieve bowel strangulation S/P ankle arthrodesis right ankle History of open reduction and internal fixation (ORIF) procedure right ankle H/O elbow surgery bilateral S/P AMANDA (total abdominal hysterectomy) H/O thumb surgery right x2 History of appendectomy History of colonoscopy History of esophagogastroduodenoscopy (EGD) History of surgical removal of skin lesion History of tonsillectomy Family History Family/Other Coronary heart disease Heart disease Cancer Hypertension Brother Prostate cancer Benign familial tremor Father Benign familial tremor Mother Malignant melanoma Aunt Rheumatoid arthritis Other No family history of adverse response to anesthesia Denies family history of Ovarian cancer Myocardial infarction Breast cancer Colorectal cancer Social History Smoking Status: Former smoker Tobacco Type: Cigarettes Age Started Using Tobacco: 19 (intermittently quit throughout the years); Age Quit Using Tobacco: 81; packs per day: 0.1; Cigarettes Per Day: 2; Second Hand Exposure: No; Do You Dip or Chew Tobacco: No; Tobacco Cessation Education Requested by Patient: No Hx Alcohol Use: Yes Alcohol type: beer Alcohol Intake Frequency: Monthly or Less Alcohol Intake Frequency Comment: rarely Hx Substance Use: No Preferred Language: Hungarian Communication Ability: Effective Visual Impairment: No Limitations Hearing Ability: Hard of Hearing Block Chopper Hand Required: No Beliefs That Will Affect Care: None marital status: Current Living Situation: Alone Current Living Situation Comment: [facility] living facility 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al status: retired 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[employer], 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 How many Children do You have: 2 Other Information That Helps Us Care for You: No Feels Safe at Home: Yes Safety Concerns: Feels Safe At This Time Childhood Exposure to Second-Hand Smoke: No Diet: regular caffeine: Yes during the past year weight has: remained stable Dental Care, Regularly: No Physical Activity Frequency: Daily Seatbelt Use: always Sunscreen Use: Yes (sometimes ) Assistive Devices: Cane and Walker Allergies Allergies Allergy/AdvReac Type Severity Reaction Status Date / Time procaine Allergy Severe novacaine Verified 02/08/25 10:36 - anaphylaxis, mouth swelling, dyspnea chocolate flavor Allergy Intermediate hx rash Verified 02/08/25 10:36 Penicillins Allergy Unknown per Verified 02/08/25 10:36 allergy test azithromycin AdvReac Intermediate throat Verified 02/08/25 10:36 burned, lost weight fluticasone AdvReac Intermediate chest pain Verified 02/08/25 10:36 (from Advair) moxifloxacin AdvReac Intermediate N/V Verified 02/08/25 10:36 salmeterol AdvReac Intermediate chest pain Verified 02/08/25 10:36 (from Advair) zolpidem AdvReac Intermediate sleep Verified 02/08/25 10:36 walking NSAIDS (Non-Steroidal AdvReac Unknown advised to Verified 02/08/25 10:36 Anti-Inflamma avoid d/t ulcer hx Home Meds Home Medications Medication Instructions Recorded Confirmed psyllium seed (sugar) oral powder 1 tbsp PO QPM PRN Constipation 03/03/20 02/19/25 (Metamucil (sugar) oral powder) travoprost 0.004 % eye drops 1 drp OPB HS 05/03/21 02/19/25 ascorbic acid (vitamin C) 500 mg 500 mg PO QAM 11/12/22 02/19/25 tablet (Vitamin C) biotin 10 mg tablet 10 mg PO QAM 11/12/22 02/19/25 guaifenesin 600 mg tablet, 600 mg PO Q6H PRN Congestion 11/12/22 02/19/25 extended release 12 hr (Mucinex) cyanocobalamin (vitamin B-12) 2,500 mcg PO QAM 05/06/23 02/19/25 2,500 mcg tablet buspirone 5 mg tablet 5 mg PO BID Anxiety 02/18/24 02/19/25 albuterol sulfate 2.5 mg/3 mL 3 mg inhalation Q6 PRN asthma 02/20/24 02/19/25 (0.083 %) solution for nebulization attacks albuterol sulfate 90 mcg/actuation 2 puff inhalation Q4 PRN asthma 02/20/24 02/19/25 aerosol inhaler (Ventolin HFA) loratadine 10 mg tablet 10 mg PO QAM 02/20/24 02/19/25 brimonidine 0.2 %-timolol 0.5 % 1 drp OPB BID 06/14/24 02/19/25 eye drops (Combigan) cholecalciferol (vitamin D3) 125 125 mcg PO QAM 09/23/24 02/19/25 mcg (5,000 unit) tablet (Vitamin D3) dextroamphetamine-amphetamine 10 20 mg PO DAILY@0600 09/23/24 02/19/25 mg tablet diltiazem HCl 180 mg capsule,24 360 mg PO QAM 09/23/24 02/19/25 hr,extended release lamotrigine 150 mg tablet 150 mg PO HS 09/23/24 02/19/25 zinc gluconate 50 mg tablet 50 mg PO QAM 09/23/24 02/19/25 acetaminophen 500 mg tablet 1,000 mg PO BID Pain 12/23/24 02/19/25 (Tylenol Extra Strength) vitamin E 268 mg (400 unit) capsule 800 mg PO DAILY 12/23/24 02/19/25 Oxygen Home 01/05/25 02/08/25 dextroamphetamine-amphetamine 10 10 mg PO DAILY@1400 01/05/25 02/19/25 mg tablet (Adderall) hydrocortisone 10 mg tablet 10 mg PO .Daily @ 1400 01/05/25 02/19/25 hydrocortisone 10 mg tablet 20 mg PO QAM@0600 01/05/25 02/19/25 trazodone 150 mg tablet 225 mg PO HS 01/21/25 02/19/25 tramadol 50 mg tablet 50 mg PO QAM 02/19/25 02/19/25 Previous Rx's Medication Instructions Recorded aspirin 81 mg tablet,delayed 81 mg PO HS #30 tabs 08/18/20 release multivitamin 1 tab PO QAM #30 tabs 09/13/20 Scooter #1 ea 04/03/21 nebulizer accessories #2 ea 03/31/23 nebulizers #1 ea 03/31/23 escitalopram oxalate 20 mg tablet 20 mg PO QAM #0 tabs 06/18/24 (Lexapro) Wheeled Walker #1 ea 07/08/24 diaper,brief,adult,disposable #6 ea 08/06/24 (Select Disposable Briefs) atorvastatin 40 mg tablet (Lipitor) 40 mg PO HS #90 tabs 12/16/24 digoxin 125 mcg (0.125 mg) tablet 125 mcg PO QAM #90 tabs 12/16/24 montelukast 10 mg tablet 10 mg PO HS #90 tabs 12/16/24 (Singulair) oxybutynin chloride 5 mg 5 mg PO QAM #90 tabs 12/16/24 tablet,extended release 24 hr pantoprazole 40 mg tablet,delayed 40 mg PO QAM #90 tabs 12/16/24 release (Protonix) metoprolol tartrate 25 mg tablet 25 mg PO BID #60 tabs 12/24/24 naloxone 4 mg/actuation nasal 4 mg intranasal Q3M PRN opioid 01/05/25 spray (Narcan) overdose #2 ea apixaban 5 mg tablet (Eliquis) 5 mg PO BID #60 tabs 01/12/25 bumetanide 1 mg tablet 1 mg PO QAM #90 tabs 02/01/25 magnesium oxide 400 mg PO BID #90 tabs 02/01/25 potassium chloride 10 mEq 10 meq PO DAILY #90 tabs 02/01/25 tablet,extended release pramipexole 0.5 mg tablet 0.5 mg PO HS #90 tabs 02/09/25 gabapentin 400 mg capsule 400 mg PO BID #60 caps 02/15/25 Results & Data (ED) Vital Signs Vital Signs - 24 hr 02/19/25 13:04 02/19/25 13:07 02/19/25 13:07 Temperature 36.9 C Temperature Source Oral Pulse Rate 78 Pulse Rate [Apical] 85 Pulse Rate from SpO2 Sensor Respiratory Rate 21 15 Blood Pressure 131/72 Blood Pressure [Right Arm] 131/72 Blood Pressure Mean 99 Blood Pressure Mean [Right Arm] 91 Pulse Oximetry 92 93 93 Oxygen Delivery Method Room Air Room Air Sepsis Recent Fever Within 48 Hours Sepsis New/Unexplained Change in Mental Status Sepsis Action Taken by Nursing 02/19/25 13:14 02/19/25 13:39 02/19/25 14:09 Temperature 36.9 C Temperature Source Oral Pulse Rate 85 74 Pulse Rate [Apical] Pulse Rate from SpO2 Sensor Respiratory Rate 15 Blood Pressure 131/72 Blood Pressure [Right Arm] Blood Pressure Mean 91 Blood Pressure Mean [Right Arm] Pulse Oximetry 93 92 Oxygen Delivery Method Room Air Room Air Sepsis Recent Fever Within 48 Hours No Sepsis New/Unexplained Change in Mental Status N/A Sepsis Action Taken by Nursing No Action Required 02/19/25 15:44 02/19/25 16:00 02/19/25 16:31 Temperature Temperature Source Pulse Rate 88 77 71 Pulse Rate [Apical] Pulse Rate from SpO2 Sensor 87 87 74 Respiratory Rate 20 15 13 Blood Pressure 159/97 H 164/93 H 161/66 H Blood Pressure [Right Arm] Blood Pressure Mean 109 116 103 Blood Pressure Mean [Right Arm] Pulse Oximetry 93 91 90 Oxygen Delivery Method Sepsis Recent Fever Within 48 Hours Sepsis New/Unexplained Change in Mental Status Sepsis Action Taken by Nursing 02/19/25 17:30 02/19/25 17:40 02/19/25 18:00 Temperature Temperature Source Pulse Rate 85 83 82 Pulse Rate [Apical] Pulse Rate from SpO2 Sensor 73 80 Respiratory Rate 27 H 24 Blood Pressure 160/75 H 157/87 H Blood Pressure [Right Arm] Blood Pressure Mean 103 96 Blood Pressure Mean [Right Arm] Pulse Oximetry 94 93 Oxygen Delivery Method Sepsis Recent Fever Within 48 Hours Sepsis New/Unexplained Change in Mental Status Sepsis Action Taken by Nursing Laboratory Data Attestation: I reviewed the patient's lab results. 02/19/25 13:16 02/19/25 13:16 Lab Results 02/19/25 02/19/25 02/19/25 Range/Units 13:16 13:36 17:56 WBC 11.25 H (4.8-10.8) K/ul RBC 4.61 (4.20-5.40) M/uL Hgb 12.2 (12.0-16.0) g/dl POC Hgb 13.9 (12.0-16.0) g/dl Hct 40.1 (37.0-47.0) % POC Hct 41 (37-47) % MCV 87.0 (80.0-100.0) fL MCH 26.5 (25.0-34.0) pg MCHC 30.4 L (32.0-36.0) g/dL RDW Std Deviation 48.3 H (36.4-46.3) fL RDW Coeff of [place] 15.3 H (11.5-14.5) % Plt Count 303 (130-400) K/uL MPV 10.1 (9.4-12.4) fL Immature Gran % (Auto) 1.0 % Neut % (Auto) 75.1 % Lymph % (Auto) 14.0 % [place] % (Auto) 6.0 % Eos % (Auto) 3.2 % Baso % (Auto) 0.7 % Neut # (Auto) 8.46 H (1.40-6.50) K/uL Lymph # (Auto) 1.57 (1.20-3.40) K/uL [place] # (Auto) 0.67 H (0.11-0.59) K/uL Eos # (Auto) 0.36 (0.00-0.50) K/uL Baso # (Auto) 0.08 (0.00-0.20) K/uL Immature Gran # (Auto) 0.11 (0.01-0.20) K/uL PT 11.2 (9.0-12.0) Seconds INR 1.1 (0.9-1.1) POC Sodium 142 (135-144) mmol/L Sodium 143 (136-145) mmol/L POC Potassium 3.1 L (3.3-5.0) mmol/L Potassium 3.3 L (3.5-5.1) mmol/L POC Chloride 101 (101-112) mmol/L Chloride 103 (98-107) mmol/L Carbon Dioxide 32 (21-32) mmol/L POC Total CO2 29 (24-31) mmol/L Anion Gap 8 (3-11) POC Anion Gap 16.0 (16-25) mmol/L POC BUN 19 H (7-18) mg/dl BUN 19 (6-23) mg/dl Creatinine 0.66 (0.6-1.2) mg/dl POC Creatinine 0.7 (0.6-1.3) mg/dl Est Cr Clr Drug Dosing 61.1 ml/min eGFR 85.91 BUN/Creatinine Ratio 28.8 H (10-20) Glucose 170 H (70-99(Fasting)) mg/dl POC Glucose (other) 170 H (70-99) mg/dl Calcium 10.4 H (8.6-10.3) mg/dl POC Ioniz Calcium Jasvir 1.37 H (1.12-1.32) mmol/l Phosphorus 2.6 (2.5-4.9) mg/dl Magnesium 1.7 (1.7-2.4) mg/dl Total Bilirubin 0.4 (0.2-1.0) mg/dl AST 17 (13-39) U/L ALT 17 (7-52) U/L Alkaline Phosphatase 81 (34-104) U/L Troponin I High Sens 10.3 (0-14) pg/ml B-Natriuretic Peptide 157 H (0-100) pg/ml Total Protein 6.5 (6.0-8.3) gm/dl Albumin 3.7 (3.4-5.0) gm/dl Globulin 2.8 (2.5-4.0) gm/dl Albumin/Globulin Ratio 1.3 (0.9-2) Lipase 34 (11-82) U/L TSH 1.110 (0.300-4.500) uIu/ml Urine Color Yellow Urine Appearance Clear (Clear) Urine pH 5.5 (4.5-7.5) Ur Specific [place] > 1.045 H (1.000-1.030) Urine Protein Negative (Negative) Urine Glucose (UA) 2+ H (Negative) Urine Ketones Negative (Negative) Urine Blood Negative (Negative) Urine Nitrite Positive A (Negative) Urine Bilirubin Negative (Negative) Urine Urobilinogen Negative (Negative) Ur Leukocyte Esterase Negative (Negative) Urine WBC (Auto) 0-5 (0-5) /hpf Urine RBC (Auto) 0-2 (0-2) /hpf U Hyaline Cast (Auto) 6-10 H (0-2) /lpf U Epithel Cells (Auto) 0-2 (0-2) /hpf Urine Bacteria (Auto) 1+ H (None Seen) Urine Comment Administered Medications Amphetamine/Dextroamphetamine (Dextroamphetamine/Amphetamine Ir 20 Mg Tab) 20 mg PO DAILY@0600 [facility] Stop: 03/06/25 05:59 Last Admin: 02/20/25 05:32 Dose: 20 mg Documented By: MLM Apixaban (Apixaban 5 Mg Tablet) 5 mg PO BID KEESHA Stop: 03/21/25 20:59 Last Admin: 02/19/25 21:34 Dose: 5 mg Documented By: MLM Aspirin (Aspirin 81 Mg Ectab) 81 mg PO [facility] Stop: 03/21/25 20:59 Last Admin: 02/19/25 21:34 Dose: 81 mg Documented By: MLPatito Atorvastatin Calcium (Atorvastatin 40 Mg Tab) 40 mg PO [facility] Stop: 03/21/25 20:59 Last Admin: 02/19/25 21:36 Dose: 40 mg Documented By: MLPatito Buspirone HCl (Buspirone 5 Mg Tab) 5 mg PO BID [facility] Stop: 03/21/25 20:59 Last Admin: 02/19/25 21:34 Dose: 5 mg Documented By: MLPatito Gabapentin (Gabapentin 400 Mg Cap) 400 mg PO BID KEESHA Stop: 03/21/25 20:59 Last Admin: 02/19/25 21:36 Dose: 400 mg Documented By: MLPatito Hydrocortisone (Hydrocortisone 10 Mg Tab) 20 mg PO QAM@0600 [facility]ES[facility] Stop: 03/22/25 05:59 Last Admin: 02/20/25 05:32 Dose: 20 mg Documented By: MLPatito Lamotrigine (Lamotrigine 100 Mg Tab) 150 mg PO [facility] Stop: 03/21/25 20:59 Last Admin: 02/19/25 21:33 Dose: 150 mg Documented By: MLPatito Metoprolol Tartrate (Metoprolol Tartrate 25 Mg Tab) 25 mg PO BID KEESHA Stop: 03/21/25 20:59 Last Admin: 02/19/25 21:35 Dose: 25 mg Documented By: DARRYL Montelukast Sodium (Montelukast Sodium 10 Mg Tablet) 10 mg PO HS [facility] Stop: 03/21/25 20:59 Last Admin: 02/19/25 21:35 Dose: 10 mg Documented By: DARRYL Pramipexole Dihydrochloride (Pramipexole Dihydrochlo 0.5 Mg Tab) 0.5 mg PO [facility] Stop: 03/21/25 20:59 Last Admin: 02/19/25 21:33 Dose: 0.5 mg Documented By: DARRYL Tramadol HCl (Tramadol Hcl 50 Mg Tablet) 50 mg PO BID PRN PRN Reason: mod to severe pain Stop: 03/21/25 20:19 Last Admin: 02/19/25 21:32 Dose: 50 mg Documented By: DARRYL Travoprost (Travoprost Z 0.004% Oph Soln 2.5 Ml Btl) 1 drops OPB [facility] Stop: 03/21/25 20:59 Last Admin: 02/19/25 21:31 Dose: 1 drops Documented By: DARRYL Trazodone HCl (Trazodone Hcl 100 Mg Tab) 225 mg PO [facility] Stop: 03/21/25 20:59 Last Admin: 02/19/25 21:34 Dose: 225 mg Documented By: DARRYL Discontinued Medications Dexamethasone Sodium Phosphate (DexamethasonePf 10 Mg/Ml Vial) 10 mg IV NOW ONE Stop: 02/19/25 17:17 Last Admin: 02/19/25 17:50 Dose: 10 mg Documented By: LUANN Sodium Chloride (Nss) 500 mls @ 250 mls/hr IV .Q2H ONE Stop: 02/19/25 16:19 Last Infusion: 02/19/25 16:44 Dose: Infused Documented By: Admin: 02/19/25 14:40 Dose: 250 mls/hr Documented By: LUANN Acetaminophen (Ofirmev) 1,000 mg in 100 mls @ 400 mls/hr IV NOW STA Stop: 02/19/25 14:34 Last Infusion: 02/19/25 15:24 Dose: Infused Documented By: Admin: 02/19/25 14:40 Dose: 400 mls/hr Documented By: LUANN Ioversol (Optiray 320 100ml) 93 ml IV ONCE ONE Stop: 02/19/25 15:38 Last Admin: 02/19/25 15:37 Dose: 93 ml Documented By: VANNESA Morphine Sulfate (Morphine Sulfate 2 Mg/Ml Carp) 1 mg IV NOW STA Stop: 02/19/25 17:17 Last Admin: 02/19/25 17:44 Dose: 1 mg Documented By: LUANN Imaging Data Radiologist's Impression: Chest X-Ray 02/19/25 14:09 Chest radiograph, one view History: Chest pain Comparison: None Findings: Single AP view of the chest performed. No focal consolidation or pleural effusion. No pneumothorax. The cardiomediastinal silhouette is enlarged. Normal pulmonary vascularity. No evidence for lymphadenopathy. No visualized bony or soft tissue abnormality. Right shoulder arthroplasty. Prominent left humeral head osteophyte and glenohumeral degenerative joint space narrowing. Impression: No acute process. Cardiomegaly Electronically signed by Kvng Cade 02-19-2025 2:37 PM Abdomen/Pelvis CT 02/19/25 14:19 EXAMINATION: CT of the abdomen and pelvis performed after the administration of IV contrast TECHNIQUE: Helical CT images from the lung bases through the symphysis pubis were obtained with contrast. Coronal and sagittal reformatted images were generated at a workstation for further assessment. Dose reduction techniques were achieved by using automatic exposure control and/or adjustment of mA and/or kV according to patient size and/or use of iterative reconstruction technique. COMPARISON: None HISTORY: Abdominal pain FINDINGS: Lower chest: No consolidation. No pleural effusion or pneumothorax. Liver: No suspicious liver lesions. Portal veins appear patent. Scattered tiny cystic structures and/are hamartomas. Gallbladder: No gallstones. No evidence of acute cholecystitis. Spleen: Normal size. Pancreas: No suspicious pancreatic lesions. The pancreatic duct is not dilated. Adrenal glands: No adrenal nodules. Kidneys: No hydronephrosis or obstructing renal stones. Bladder / Pelvic organs: Unremarkable. Bowel: No bowel obstruction. No abnormal bowel wall thickening. The appendix is unremarkable. Lymph nodes: No retroperitoneal, mesenteric, or pelvic lymphadenopathy. Peritoneum / Retroperitoneum: No free fluid or air within the abdomen. Vessels: No infrarenal aortic aneurysm. Moderate aortoiliac calcification. Bones and soft tissues: No suspicious lesion in the bones. Few calcified pelvic phleboliths. These are similar to prior without definite ureteral stone. Total right hip arthroplasty. Fixation changes of the lumbar spine. IMPRESSION: No acute finding in the abdomen or pelvis Electronically signed by Kvng Cade 02-19-2025 4:[address] 02/19/25 14:19 CT lumbar spine without contrast History: back pain Comparison: none Technique: Using multidetector thin collimation helical acquisition technique, axial, coronal and sagittal CT images through the lumbar spine were obtained without intravenous contrast. Dose reduction techniques were achieved by using automatic exposure control and/or adjustment of mA and/or kV according to patient size and/or use of iterative reconstruction technique. Findings: There are 5 lumbar type vertebrae. Regarding alignment, the lumbar spine alignment appears preserved. Posterior doe and screw fixation changes with disc spacer devices at L3-4. L4-5 to spacer device. Laminectomy changes at L3 and L4. Mature bony fusion across the facet joints. Severe degenerative disc changes at L1-L2 and L2-L3. At the level of L2, there is again an ovoid 2.0 cm density with thin rim calcification, significantly narrowing the spinal canal. This again favors sequestered disc material. The visualized adjacent paraspinous tissues are grossly within normal limits. Impression: No acute finding of the lumbar spine Electronically signed by Kvng Cade 02-19-2025 4:18 PM Discharge Plan Visit Data Chief Complaint: Weakness ED Provider: Brendon Joe Discharge Problem: Intractable low back pain, Generalized weakness, Shortness of breath Patient Disposition: Admitted As Inpatient Condition: Fair Discharge Instructions Interventions: ED Discharge Assessment Last Done: 02/19/25 20:00
[2025-02-19 14:28] LABS: Alanine Aminotransferase 17.0 U/L (7-52); Albumin Globulin Ratio 1.3 (0.9-2); Albumin Level 3.7 gm/dl (3.4-5.0); Alkaline Phosphatase 81.0 U/L (34-104); Anion Gap 8.0 (3-11); Bilirubin,Total 0.4 mg/dl (0.2-1.0); Blood Urea Nitrogen 19.0 mg/dl (6-23); Calcium 10.4 mg/dl (8.6-10.3); Carbon Dioxide 32.0 mmol/L (21-32); Chloride 103.0 mmol/L (98-107); Creatinine Clr Calc Pharmacy 61.1 ml/min; Globulin 2.8 gm/dl (2.5-4.0); Glucose 170.0 mg/dl (70-99(Fasting)); Lipase 34.0 U/L (11-82); Magnesium 1.7 mg/dl (1.7-2.4); Potassium 3.3 mmol/L (3.5-5.1); Sodium 143.0 mmol/L (136-145); Total Protein 6.5 gm/dl (6.0-8.3)
--- NOTE | 2025-02-19 14:37 | XRay Report ---
Chest radiograph, one view History: Chest pain Comparison: None Findings: Single AP view of the chest performed. No focal consolidation or pleural effusion. No pneumothorax. The cardiomediastinal silhouette is enlarged. Normal pulmonary vascularity. No evidence for lymphadenopathy. No visualized bony or soft tissue abnormality. Right shoulder arthroplasty. Prominent left humeral head osteophyte and glenohumeral degenerative joint space narrowing. Impression: No acute process. Cardiomegaly Electronically signed by Kvng Cade 02-19-2025 2:37 PM
[2025-02-19] MEDS: ACETAMINOPHEN 1,000 MG/100 ML VIAL IV STA (14:40)
[2025-02-19] MEDS: SODIUM CHLORIDE 0.9% 500 ML IV ONE (14:40)
[2025-02-19 14:44] LABS: Thyroid Stimulating Hormone 1.11 uIu/ml (0.300-4.500)
[2025-02-19 14:45] LABS: INR 1.1 (0.9-1.1); Prothrombin Time 11.2 Seconds (9.0-12.0)
[2025-02-19] MEDS: OPTIRAY 320 100ml IV ONE (15:37)
--- NOTE | 2025-02-19 16:21 | CT Scan Report ---
CT lumbar spine without contrast History: back pain Comparison: none Technique: Using multidetector thin collimation helical acquisition technique, axial, coronal and sagittal CT images through the lumbar spine were obtained without intravenous contrast. Dose reduction techniques were achieved by using automatic exposure control and/or adjustment of mA and/or kV according to patient size and/or use of iterative reconstruction technique. Findings: There are 5 lumbar type vertebrae. Regarding alignment, the lumbar spine alignment appears preserved. Posterior doe and screw fixation changes with disc spacer devices at L3-4. L4-5 to spacer device. Laminectomy changes at L3 and L4. Mature bony fusion across the facet joints. Severe degenerative disc changes at L1-L2 and L2-L3. At the level of L2, there is again an ovoid 2.0 cm density with thin rim calcification, significantly narrowing the spinal canal. This again favors sequestered disc material. The visualized adjacent paraspinous tissues are grossly within normal limits. Impression: No acute finding of the lumbar spine Electronically signed by Kvng Cade 02-19-2025 4:18 PM
--- NOTE | 2025-02-19 16:26 | CT Scan Report ---
EXAMINATION: CT of the abdomen and pelvis performed after the administration of IV contrast TECHNIQUE: Helical CT images from the lung bases through the symphysis pubis were obtained with contrast. Coronal and sagittal reformatted images were generated at a workstation for further assessment. Dose reduction techniques were achieved by using automatic exposure control and/or adjustment of mA and/or kV according to patient size and/or use of iterative reconstruction technique. COMPARISON: None HISTORY: Abdominal pain FINDINGS: Lower chest: No consolidation. No pleural effusion or pneumothorax. Liver: No suspicious liver lesions. Portal veins appear patent. Scattered tiny cystic structures and/are hamartomas. Gallbladder: No gallstones. No evidence of acute cholecystitis. Spleen: Normal size. Pancreas: No suspicious pancreatic lesions. The pancreatic duct is not dilated. Adrenal glands: No adrenal nodules. Kidneys: No hydronephrosis or obstructing renal stones. Bladder / Pelvic organs: Unremarkable. Bowel: No bowel obstruction. No abnormal bowel wall thickening. The appendix is unremarkable. Lymph nodes: No retroperitoneal, mesenteric, or pelvic lymphadenopathy. Peritoneum / Retroperitoneum: No free fluid or air within the abdomen. Vessels: No infrarenal aortic aneurysm. Moderate aortoiliac calcification. Bones and soft tissues: No suspicious lesion in the bones. Few calcified pelvic phleboliths. These are similar to prior without definite ureteral stone. Total right hip arthroplasty. Fixation changes of the lumbar spine. IMPRESSION: No acute finding in the abdomen or pelvis Electronically signed by Kvng Cade 02-19-2025 4:24 PM
[2025-02-19] MEDS: MoRPHine SULFATE 2 MG/ML CARP IV STA (17:44)
[2025-02-19] MEDS: dexAMETHasone**PF** 10 MG/ML VIAL IV ONE (17:50)
--- NOTE | 2025-02-19 18:13 | History & Physical Report ---
Date of Service February 19, 2025 Assessment & Plan (1) Mid back pain on right side: Plan #Mid back pain - admit to observation - tylenol, tramadol, flexeril, all prn - cont gabapentin - warm compression - fall precaution #AFib - cont digoxin, diltiazem, metoprolol bid, eliquis #HLD - cont statin #Anxiety - cont buspirone, escitalopram, trazodone #Adrenal insufficiency - cont hydrocortisone #COPD - monitor oxygen - cont inhaler #Chronic systolic / diastolic HF - cont bumex - monitor potassium #Overactive bladder: cont buspirone #GERD: cont PPI #Allergies: cont montelukast #DVT ppx: already on eliquis #Code status: DNR / DNI, bipap permitted #Dispo: place in obs History of Present Illness Chief Complaint: back pain Primary Care Provider: Faiza Costa MD 84 yr old F with PMHx of permanent AFib, secondary adrenal insufficiency, COPD, aortic and mitral regurgitation, CAD, esophageal dysphagia, ADHD, Raynaud's disease, CKD III, depression, asthma presents to [facility] for the evaluation of mid back pain. She describes this pain as sharp. This has been ongoing for about 1 week, progressively worsening. It is currently constant, exacerbated by movement and deep inspiration. It does not radiate. She has not tried anything at home that cause given her relief. She denied urinary and bowel incontinence. She is otherwise offering no other complaints. Imaging done in the ED did not reveal any perinephric stranding or spinal abnormality. Allergies Allergy/AdvReac Type Severity Reaction Status Date / Time procaine Allergy Severe novacaine Verified 02/08/25 10:36 - anaphylaxis, mouth swelling, dyspnea chocolate flavor Allergy Intermediate hx rash Verified 02/08/25 10:36 Penicillins Allergy Unknown per Verified 02/08/25 10:36 allergy test azithromycin AdvReac Intermediate throat Verified 02/08/25 10:36 burned, lost weight fluticasone AdvReac Intermediate chest pain Verified 02/08/25 10:36 (from Advair) moxifloxacin AdvReac Intermediate N/V Verified 02/08/25 10:36 salmeterol AdvReac Intermediate chest pain Verified 02/08/25 10:36 (from Advair) zolpidem AdvReac Intermediate sleep Verified 02/08/25 10:36 walking NSAIDS (Non-Steroidal AdvReac Unknown advised to Verified 02/08/25 10:36 Anti-Inflamma avoid d/t ulcer hx Home Medications Medication Instructions Recorded Confirmed Type psyllium seed (sugar) oral powder 1 tbsp PO QPM PRN Constipation 03/03/20 02/19/25 History (Metamucil (sugar) oral powder) aspirin 81 mg tablet,delayed 81 mg PO HS #30 tabs 08/18/20 02/19/25 Rx release multivitamin 1 tab PO QAM #30 tabs 09/13/20 02/19/25 Rx Scooter #1 ea 04/03/21 02/08/25 Rx travoprost 0.004 % eye drops 1 drp OPB HS 05/03/21 02/19/25 History ascorbic acid (vitamin C) 500 mg 500 mg PO QAM 11/12/22 02/19/25 History tablet (Vitamin C) biotin 10 mg tablet 10 mg PO QAM 11/12/22 02/19/25 History guaifenesin 600 mg tablet, 600 mg PO Q6H PRN Congestion 11/12/22 02/19/25 History extended release 12 hr (Mucinex) nebulizer accessories #2 ea 03/31/23 02/08/25 Rx nebulizers #1 ea 03/31/23 02/08/25 Rx cyanocobalamin (vitamin B-12) 2,500 mcg PO QAM 05/06/23 02/19/25 History 2,500 mcg tablet buspirone 5 mg tablet 5 mg PO BID Anxiety 02/18/24 02/19/25 History albuterol sulfate 2.5 mg/3 mL 3 mg inhalation Q6 PRN asthma 02/20/24 02/19/25 History (0.083 %) solution for nebulization attacks albuterol sulfate 90 mcg/actuation 2 puff inhalation Q4 PRN asthma 02/20/24 02/19/25 History aerosol inhaler (Ventolin HFA) loratadine 10 mg tablet 10 mg PO QAM 02/20/24 02/19/25 History brimonidine 0.2 %-timolol 0.5 % 1 drp OPB BID 06/14/24 02/19/25 History eye drops (Combigan) escitalopram oxalate 20 mg tablet 20 mg PO QAM #0 tabs 06/18/24 02/19/25 Rx (Lexapro) Wheeled Walker #1 ea 07/08/24 02/08/25 Rx diaper,brief,adult,disposable #6 ea 08/06/24 02/08/25 Rx (Select Disposable Briefs) cholecalciferol (vitamin D3) 125 125 mcg PO QAM 09/23/24 02/19/25 History mcg (5,000 unit) tablet (Vitamin D3) dextroamphetamine-amphetamine 10 20 mg PO DAILY@0600 09/23/24 02/19/25 History mg tablet diltiazem HCl 180 mg capsule,24 360 mg PO QAM 09/23/24 02/19/25 History hr,extended release lamotrigine 150 mg tablet 150 mg PO HS 09/23/24 02/19/25 History zinc gluconate 50 mg tablet 50 mg PO QAM 09/23/24 02/19/25 History atorvastatin 40 mg tablet (Lipitor) 40 mg PO HS #90 tabs 12/16/24 02/19/25 Rx digoxin 125 mcg (0.125 mg) tablet 125 mcg PO QAM #90 tabs 12/16/24 02/19/25 Rx montelukast 10 mg tablet 10 mg PO HS #90 tabs 12/16/24 02/19/25 Rx (Singulair) oxybutynin chloride 5 mg 5 mg PO QAM #90 tabs 12/16/24 02/19/25 Rx tablet,extended release 24 hr pantoprazole 40 mg tablet,delayed 40 mg PO QAM #90 tabs 12/16/24 02/19/25 Rx release (Protonix) acetaminophen 500 mg tablet 1,000 mg PO BID Pain 12/23/24 02/19/25 History (Tylenol Extra Strength) vitamin E 268 mg (400 unit) capsule 800 mg PO DAILY 12/23/24 02/19/25 History metoprolol tartrate 25 mg tablet 25 mg PO BID #60 tabs 12/24/24 02/19/25 Rx Oxygen Home 01/05/25 02/08/25 History dextroamphetamine-amphetamine 10 10 mg PO DAILY@1400 01/05/25 02/19/25 History mg tablet (Adderall) hydrocortisone 10 mg tablet 10 mg PO .Daily @ 1400 01/05/25 02/19/25 History hydrocortisone 10 mg tablet 20 mg PO QAM@0600 01/05/25 02/19/25 History naloxone 4 mg/actuation nasal 4 mg intranasal Q3M PRN opioid 01/05/25 02/19/25 Rx spray (Narcan) overdose #2 ea apixaban 5 mg tablet (Eliquis) 5 mg PO BID #60 tabs 01/12/25 02/19/25 Rx trazodone 150 mg tablet 225 mg PO HS 01/21/25 02/19/25 History bumetanide 1 mg tablet 1 mg PO QAM #90 tabs 02/01/25 02/19/25 Rx magnesium oxide 400 mg PO BID #90 tabs 02/01/25 02/19/25 Rx potassium chloride 10 mEq 10 meq PO DAILY #90 tabs 02/01/25 02/19/25 Rx tablet,extended release pramipexole 0.5 mg tablet 0.5 mg PO HS #90 tabs 02/09/25 02/19/25 Rx gabapentin 400 mg capsule 400 mg PO BID #60 caps 02/15/25 02/19/25 Rx tramadol 50 mg tablet 50 mg PO QAM 02/19/25 02/19/25 History Past Med/Surg History Problem List (Updated 02/19/25 @ 18:36 by Kandice Bauman MD) Mid back pain on right side Acute parotitis (Acute) Hypomagnesemia (Acute) Chronic congestive heart failure Encounter for monitoring diuretic therapy Hypokalemia (Acute) (HFpEF) heart failure with preserved ejection fraction Dysphagia Lumbar disc herniation with radiculopathy Calcification of intervertebral cartilage or disc of lumbar region Right lumbar radiculopathy Pain in right lumbar region of back (Acute) Chronic right hip pain (Acute) Greater trochanteric bursitis of right hip Rotator cuff arthropathy of left shoulder Secondary adrenal insufficiency Anticoagulant long-term use Leg length discrepancy Adrenal insufficiency Hypercalcemia Orthostatic hypotension Nocturnal hypoxia o2 3L HS. Fracture of acromion of scapula (06/14/24) Acute fracture at the base of the acromion from a fall. Atrial fibrillation Ambulatory dysfunction Recurrent falls Contusion of knee, right (Acute) Generalized weakness (Acute) Obstructive lung disease Acromioclavicular joint arthritis Rotator cuff arthropathy of right shoulder Left ventricular systolic dysfunction Mitral regurgitation Aortic regurgitation Prediabetes Nonobstructive atherosclerosis of coronary artery Glenohumeral arthritis SI (sacroiliac) joint dysfunction Osteoarthritis of ankle, left CAD (coronary artery disease) Mild- luminal irregularities only on 2003 cardiac cath Esophageal dysphagia Chronic constipation with overflow incontinence ADHD Stable Chronic obstructive pulmonary disease stable Allergic rhinitis (Chronic) Anxiety disorder (Chronic) follows with psych Benign familial tremor (Chronic) Cervicalgia (Chronic) Former smoker (Chronic) Fusion of spine, lumbar region (Chronic) Glaucoma (Chronic) Hyperlipidemia (Chronic) Raynaud's disease (Chronic) Rectocele (Chronic) Restless legs syndrome (Chronic) SNHL (sensorineural hearing loss) (Chronic) Solitary pulmonary nodule (Chronic) Urge incontinence of urine (Chronic) Vitamin D deficiency (Chronic) CKD (chronic kidney disease) stage 3, GFR 30-59 ml/min (Chronic) Depression (Chronic) Anemia (Chronic) Asthma (Chronic) Lumbar stenosis with neurogenic claudication (Chronic) Medical History History of recent hospitalization Raynauds disease Benign familial tremor Ambulatory dysfunction Right groin pain Lumbar radiculopathy Nocturnal hypoxia Secondary adrenal insufficiency ADHD Atrial fibrillation Acute parotitis Submandibular gland infection Scapular fracture (06/14/24) Pre-diabetes CKD (chronic kidney disease) Mitral regurgitation Left ventricular systolic dysfunction CAD (coronary artery disease) Aortic regurgitation Esophageal dysphagia Asthma COPD (chronic obstructive pulmonary disease) Anxiety Raynauds disease Acid reflux Tremor History of gastric ulcer History of sepsis (2022) History of skin cancer Difficult intravenous access Rectocele Arthritis of neck History of anemia Restless leg syndrome Esophageal stenosis Hearing deficit Glaucoma Depression Hyperlipidemia History of transient cerebral ischemia Rheumatoid arthritis (02/25/13) Surgical History Status post reverse total replacement of right shoulder (~03/2024) History of lumbar fusion History of foot surgery History of foot surgery S/P foot surgery, left S/P foot surgery, left History of total hip arthroplasty H/O toe surgery History of total knee replacement S/P hardware removal S/P laparotomy S/P ankle arthrodesis History of open reduction and internal fixation (ORIF) procedure H/O elbow surgery S/P AMANDA (total abdominal hysterectomy) H/O thumb surgery History of appendectomy History of colonoscopy History of esophagogastroduodenoscopy (EGD) History of surgical removal of skin lesion History of tonsillectomy Family History Family/Other Coronary heart disease Heart disease Cancer Hypertension Brother Prostate cancer Benign familial tremor Father Benign familial tremor Mother Malignant melanoma Aunt Rheumatoid arthritis Other No family history of adverse response to anesthesia Denies family history of Ovarian cancer Myocardial infarction Breast cancer Colorectal cancer Social History Smoking Status: Former smoker Tobacco Type: Cigarettes Age Started Using Tobacco: 19 (intermittently quit throughout the years); Age Quit Using Tobacco: 81; packs per day: 0.1; Cigarettes Per Day: 2; Second Hand Exposure: No; Do You Dip or Chew Tobacco: No; Hx Alcohol Use: Yes Alcohol type: beer Alcohol Intake Frequency: Monthly or Less Alcohol Intake Frequency Comment: rarely Hx Substance Use: No Preferred Language: Faroese Communication Ability: Effective Visual Impairment: No Limitations Hearing Ability: Hard of Hearing Loan Supervisor Required: No Beliefs That Will Affect Care: None marital status: Current Living Situation: Alone Current Living Situation Comment: [facility] 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al status: retired 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 Physical Exam Physical Exam: Gen: no acute distress, lying in bed comfortable HEENT: NC/AT, MMM Lungs: nonlabored breathing, CTAB CVS: [id number], RRR Abd: nl bowel sounds, soft, NT / ND : no saucedo Ext: no edema Back: right flank pain that is reproducible with normal palpation Neuro: AAOx3 Psych: calm, cooperative Results & Data Results & Data Vital Signs (Past 12 Hours) Vital Signs Temp Pulse Pulse Resp BP BP Pulse Ox 02/19/25 17:40 83 02/19/25 16:31 71 13 161/66 H 90 02/19/25 16:00 77 15 164/93 H 91 02/19/25 15:44 88 20 159/97 H 93 02/19/25 14:09 92 02/19/25 13:39 74 02/19/25 13:14 36.9 C 85 15 131/72 93 02/19/25 13:07 36.9 C 85 15 131/72 93 02/19/25 13:07 93 02/19/25 13:04 78 21 131/72 92 O2 Del Method 02/19/25 17:40 02/19/25 16:31 02/19/25 16:00 02/19/25 15:44 02/19/25 14:09 Room Air 02/19/25 13:39 02/19/25 13:14 Room Air 02/19/25 13:07 Room Air 02/19/25 13:07 Room Air 02/19/25 13:04 PG Care Time/CCT Total # of Minutes Spent Total Time Spent with Patient: Total time spent is greater than 50% in coordination of care (as documented) at patient's floor/unit and/or counseling patient: Coding Level of Care Code 66146 INT INP/OBS CARE 3/75MIN Diagnoses Mid back pain on right side M54.9
[2025-02-19 18:38] LABS: Appearance Urine Clear (Clear); Bacteria Urine Automated 1+ (None Seen); Epithelial Cell Urine Auto 0-2 /hpf (0-2); Glucose Urine UA 2+ (Negative); RBC Urine Automated 0-2 /hpf (0-2); WBC Urine Automated 0-5 /hpf (0-5)
[2025-02-19] MEDS ORDERED: ONDANSETRON INJ 2 MG/ML 2 ML VIAL IV PRN (20:20)
[2025-02-19] MEDS ORDERED: CYCLOBENZAPRINE HCL 10 MG TAB PO PRN (20:20)
[2025-02-19] MEDS ORDERED: ALBUTEROL 0.083% NEBU SOLN 3 ML VIAL INH PRN (20:20)
[2025-02-19] MEDS: TRAVOPROST Z 0.004% OPH SOLN 2.5 ML BTL OPB SCH (21:31)
[2025-02-19] MEDS: lamoTRIgine 100 MG TAB PO SCH (21:33)
[2025-02-19] MEDS: PRAMIPEXOLE DIHYDROCHLO 0.5 MG TAB PO SCH (21:33)
[2025-02-19] MEDS: ASPIRIN 81 MG ECTAB PO SCH (21:34)
[2025-02-19] MEDS: APIXABAN 5 MG TABLET PO SCH (21:34)
[2025-02-19] MEDS: busPIRone 5 MG TAB PO SCH (21:34)
[2025-02-19] MEDS: MONTELUKAST SODIUM 10 MG TABLET PO SCH (21:35)
[2025-02-19] MEDS: METOPROLOL TARTRATE 25 MG TAB PO SCH (21:35)
[2025-02-19] MEDS: ATORVASTATIN 40 MG TAB PO SCH (21:36)
[2025-02-19] MEDS: GABAPENTIN 400 MG CAP PO SCH (21:36)
[2025-02-19 23:25] VITALS: O2SAT 94
[2025-02-20] MEDS: HYDROCORTISONE 10 MG TAB PO SCH ×2 (05:32→14:02)
[2025-02-20] MEDS: DEXTROAMPHETAMINE/AMPHETAMINE IR 20 MG TAB PO SCH (05:32)
[2025-02-20 06:56] LABS: Hematocrit (blood only) 39.9 % (37.0-47.0); Hemoglobin 12.6 g/dl (12.0-16.0); Mean Corpuscular Hemoglobin 27.5 pg (25.0-34.0); Mean Corpuscular Volume 87.1 fL (80.0-100.0); Platelet Count 313 K/uL (130-400); RDW Standard Deviation 47.9 fL (36.4-46.3); Red Blood Count 4.58 M/uL (4.20-5.40); White Blood Count 11.67 K/ul (4.8-10.8)
[2025-02-20 07:10] VITALS: BP 177/66; PULSE 97; RESP 20; TEMP 97.7
[2025-02-20 07:19] LABS: Anion Gap 7.0 (3-11); Blood Urea Nitrogen 18.0 mg/dl (6-23); Calcium 10.6 mg/dl (8.6-10.3); Carbon Dioxide 33.0 mmol/L (21-32); Chloride 101.0 mmol/L (98-107); Creatinine Clr Calc Pharmacy 59.7 ml/min; Glucose 207.0 mg/dl (70-99(Fasting)); Magnesium 1.7 mg/dl (1.7-2.4); Potassium 3.5 mmol/L (3.5-5.1); Sodium 141.0 mmol/L (136-145)
[2025-02-20] MEDS: CHOLECALCIFEROL 125 MCG (5,000 UNITS) TAB PO SCH (08:02)
[2025-02-20] MEDS: BUMETANIDE 1 MG TAB PO SCH (08:02)
[2025-02-20] MEDS: OXYBUTYNIN CHLORIDE XL 5 MG TABCR PO SCH (08:03)
[2025-02-20] MEDS: ESCITALOPRAM OXALATE 20 MG TAB PO SCH (08:03)
[2025-02-20] MEDS: guaiFENesin 600 MG TABCR PO PRN (08:04)
--- NOTE | 2025-02-20 11:52 | Electrocardiogram Report ---
Test Reason : Blood Pressure : */* mmHG Vent. Rate : 77 BPM Atrial Rate : * BPM P-R Int : * ms QRS Dur : 94 ms QT Int : 368 ms P-R-T Axes : * 44 -41 degrees QTcB Int : 416 ms Atrial fibrillation Low voltage QRS Nonspecific ST and T wave abnormality Abnormal ECG When compared with ECG of 04-Feb-2025 07:06, QT has lengthened Confirmed by Camron Estrada ([id number]) on 02/20/2025 11:52:38 AM Referred By: REFERRED SELF Confirmed By: Camron Estrada
[2025-02-20] MEDS: ACETAMINOPHEN 500 MG TAB PO PRN (12:54)
[2025-02-20] MEDS: DEXTROAMPHETAMINE/AMPHETAMINE IR 10 MG TAB PO SCH (14:02)
--- NOTE | 2025-02-20 14:24 | Discharge Summary ---
Discharge Summary Date of Service February 20, 2025 Principal Dx & Hospital Course #1 = Principal Diagnosis (1) Mid back pain on right side: Plan #Mid back pain - resolved - cont gabapentin - cont AM tramadol, prn nightly flexeril - warm compression - pt reports back pain due to poor mattress and she plans on getting a new mattress #AFib - cont digoxin, diltiazem, metoprolol bid, eliquis #HLD - cont statin #Anxiety - cont buspirone, escitalopram, trazodone #Adrenal insufficiency - cont hydrocortisone #COPD - monitor oxygen - cont inhaler #Chronic systolic / diastolic HF - cont bumex - monitor potassium #Overactive bladder: cont buspirone #GERD: cont PPI #Allergies: cont montelukast #DVT ppx: already on eliquis #Code status: DNR / DNI, bipap permitted #Dispo: discharge home Admission HPI Per Admitting Provider 84 yr old F with PMHx of permanent AFib, secondary adrenal insufficiency, COPD, aortic and mitral regurgitation, CAD, esophageal dysphagia, ADHD, Raynaud's disease, CKD III, depression, asthma presents to [facility] for the evaluation of mid back pain. She describes this pain as sharp. This has been ongoing for about 1 week, progressively worsening. It is currently constant, exacerbated by movement and deep inspiration. It does not radiate. She has not tried anything at home that cause given her relief. She denied urinary and bowel incontinence. She is otherwise offering no other complaints. Imaging done in the ED did not reveal any perinephric stranding or spinal abnormality. Discharge Exam Gen: no acute distress, lying in bed comfortable HEENT: NC/AT, MMM Lungs: nonlabored breathing, CTAB CVS: s1s2nl, RRR Abd: nl bowel sounds, soft, NT / ND : no saucedo Ext: no edema Back: right flank pain that is reproducible with normal palpation Neuro: AAOx3 Psych: calm, cooperative Discharge Plan Discharge Items Patient Disposition: Home - Home Health Services Reason For Visit: BACK PAIN Discharge Diagnosis: Musculoskeletal back pain Condition on Discharge: Fair Activity: Resume your previous activity Non-emergency contact: Primary Care Provider Call non-emergency contact if: you have any medication questions, your symptoms worsen, your pain is not controlled, your pain is worsening, your pain is unusual for you and your pain is concerning for you Follow-up/Referrals: Faiza Costa MD [Primary Care Provider] - Diet: Heart Healthy Addtl Attending Provider Instructions: You were admitted to the hospital for the evaluation of mid back pain from muscles cramps. You were admitted overnight to monitor due to severity of the pain. After receiving pain medications, your symptoms improved. You attributed your pain to bad mattress and you plan to get a new one. You are medically stable for discharge since your symptoms have significantly improved. You will need to follow up with your primary care doctor in about 7 to 10 days. Please discuss your elevated calcium level (mild) with your primary care doctor. It was a pleasure being a part of your medical care team during your stay at [facility]. Pending Studies at Discharge: No Stand-Alone Forms: My [facility], Smoking Cessation Medications and DC Order Prescriptions: New cyclobenzaprine 10 mg Tablet 10 mg PO HS PRN (Reason: muscle spasm) Qty: 10 0RF Continued aspirin 81 mg tablet,delayed release (DR/EC) 81 mg PO HS Qty: 30 5RF Patient Comments: Unable to verify OTC meds at this date/time. 02/04/25 multivitamin Tablet 1 tab PO QAM Qty: 30 5RF Patient Comments: Unable to verify OTC meds at this date/time. 02/04/25 (DME) Scooter Misc See Rx Instructions .Route Qty: 1 0RF Rx Instructions: As directed. (DME) nebulizers Misc See Rx Instructions .ROUTE .MEDSUPPLY Qty: 1 0RF Rx Instructions: New nebulizer (DME) nebulizer accessories Kit See Rx Instructions .ROUTE .MEDSUPPLY Qty: 2 0RF Rx Instructions: All tubing, connectors, and accessory pieces (DME) Select Disposable Briefs Misc See Rx Instructions .Route Qty: 6 3RF Rx Instructions: Pt would like 6 packs of briefs "pull ups" every other month digoxin 125 mcg (0.125 mg) tablet 125 mcg PO QAM Qty: 90 1RF oxybutynin chloride 5 mg tablet extended release 24hr 5 mg PO QAM Qty: 90 1RF atorvastatin [Lipitor] 40 mg tablet 40 mg PO HS Qty: 90 1RF montelukast [Singulair] 10 mg tablet 10 mg PO HS Qty: 90 1RF pantoprazole [Protonix] 40 mg tablet,delayed release (DR/EC) 40 mg PO QAM Qty: 90 1RF metoprolol tartrate 25 mg tablet 25 mg PO BID Qty: 60 11RF Eliquis 5 mg tablet 5 mg PO BID Qty: 60 11RF Rx Instructions: TAKE 1 TABLET BY MOUTH IN THE MORNING AND AT BEDTIME pramipexole 0.5 mg tablet 0.5 mg PO HS Qty: 90 1RF gabapentin 400 mg capsule 400 mg PO BID Qty: 60 1RF travoprost 0.004 % drops 1 drp OPB HS Patient Comments: both eyes dextroamphetamine-amphetamine [Adderall] 10 mg tablet 10 mg PO DAILY@1400 Patient Comments: take 20 mg morning and 10 mg in afternoon. Rx Instructions: 10mg IN AFTERNOON. Metamucil (sugar) Powder 1 tbsp PO QPM PRN (Reason: Constipation) Patient Comments: Unable to verify OTC meds at this date/time. 02/04/25 (DME) Wheeled Walker Misc See Rx Instructions .Route Qty: 1 0RF Rx Instructions: As directed R26.2, R53.1 potassium chloride 10 mEq tablet extended release 10 meq PO DAILY Qty: 90 3RF magnesium oxide 400 mg magnesium tablet 400 mg PO BID Qty: 90 3RF bumetanide 1 mg tablet 1 mg PO QAM Qty: 90 3RF (DME) Oxygen Home Liters Per Minute See Rx Instructions .Route Rx Instructions: 3L/min O2 for use when sleeping. Pt is mouth breather, needs appropriate mask naloxone [Narcan] 4 mg/actuation spray,non-aerosol 4 mg intranasal Q3M PRN (Reason: opioid overdose) Qty: 2 0RF Rx Instructions: spray 1 dose into ONE nostril; alternate nostrils w each dose until patient responsive or help arrives biotin 10 mg Tablet 10 mg PO QAM Patient Comments: Unable to verify OTC meds at this date/time. 02/04/25 ascorbic acid (vitamin C) [Vitamin C] 500 mg Tablet 500 mg PO QAM Patient Comments: Unable to verify OTC meds at this date/time. 02/04/25 guaifenesin [Mucinex] 600 mg Tablet Extended Release 12hr 600 mg PO Q6H PRN (Reason: Congestion) Patient Comments: Unable to verify OTC meds at this date/time. 02/04/25 cyanocobalamin (vitamin B-12) 2,500 mcg tablet 2,500 mcg PO QAM Patient Comments: Unable to verify OTC meds at this date/time. 02/04/25 loratadine 10 mg Tablet 10 mg PO QAM Patient Comments: Unable to verify OTC meds at this date/time. 02/04/25 albuterol sulfate [Ventolin HFA] 90 mcg/actuation HFA aerosol inhaler 2 puff Inhalation Q4 PRN (Reason: asthma) albuterol sulfate 2.5 mg /3 mL (0.083 %) Solution For Nebulization 3 mg INHALATION Q6 PRN (Reason: asthma attacks) Patient Comments: pt reports albuterol nebilizer for asthma attacks/none in yrs. brimonidine-timolol [Combigan] 0.2-0.5 % drops 1 drp OPB BID Patient Comments: both eyes escitalopram oxalate [Lexapro] 20 mg tablet 20 mg PO QAM Qty: 0 0RF trazodone 150 mg tablet 225 mg PO HS buspirone 5 mg tablet 5 mg PO BID lamotrigine 150 mg tablet 150 mg PO HS dextroamphetamine-amphetamine 10 mg tablet 20 mg PO DAILY@0600 diltiazem HCl 180 mg capsule,extended release 24hr 360 mg PO QAM Rx Instructions: TWO CAPSULES IN THE AM zinc gluconate 50 mg Tablet 50 mg PO QAM Patient Comments: Unable to verify OTC meds at this date/time. 02/04/25 cholecalciferol (vitamin D3) [Vitamin D3] 125 mcg (5,000 unit) Tablet 125 mcg PO QAM Patient Comments: Unable to verify OTC meds at this date/time. 02/04/25 vitamin E 268 mg (400 unit) Capsule 800 mg PO DAILY Patient Comments: Unable to verify OTC meds at this date/time. 02/04/25 acetaminophen [Tylenol Extra Strength] 500 mg tablet 1,000 mg PO BID MDD 3G Patient Comments: Unable to verify OTC meds at this date/time. 02/04/25 Rx Instructions: TAKES AT 0600 & 1400 hydrocortisone 10 mg tablet 20 mg PO QAM@0600 Rx Instructions: Take 20 mgfirst thing in the morning; take 10 8 hours later. Double in times of stress Second dose must begin exactly 8 hours after the morning dose. hydrocortisone 10 mg tablet 10 mg PO .Daily @ 1400 Rx Instructions: TAKE 1&20 mg TABS FIRST THING IN THE MORNING AND 10 mg TAB 8 HOURS LATER. second dose must be exactly 8 hours after morning dose. DOUBLE IN TIMES OF STRESS. tramadol 50 mg tablet 50 mg PO QAM Admission Data Admit Date/Time: 02/19/25 18:49 Attending Provider: Kandice Bauman Admit Provider: Kandice Bauman Primary Care Provider: Faiza Costa Other Providers: Asha Dawn,Home Care Fax Hospital Stay Data Consultations 02/19/25 18:28 ED Decision to Admit Stat Diagnostic Imagining Performed 02/19/25 14:19 CT abd pelvis IV con only Stat CT lumbar spine w con Stat Pending Results Patient Have Any Pending Studies at Discharge: No Discharge Instructions Given to Patient (Per Discharging Provider) You were admitted to the hospital for the evaluation of mid back pain from muscles cramps. You were admitted overnight to monitor due to severity of the pain. After receiving pain medications, your symptoms improved. You attributed your pain to bad mattress and you plan to get a new one. You are medically stable for discharge since your symptoms have significantly improved. You will n eed to follow up with your primary care doctor in about 7 to 10 days. Please discuss your elevated calcium level (mild) with your primary care doctor. It was a pleasure being a part of your medical care team during your stay at [facility]. Total Time Total Time Spent Total Time Spent (In Minutes): 45 Coding Level of Care Code 24447 INP/OBS DISCH >30 MIN Diagnoses Mid back pain on right side M54.9
[2025-02-20] MEDS ORDERED: DIGOXIN 0.125 MG TAB PO SCH (16:00)
[2025-02-20] MEDS: INFLUENZA VACC TS2025-26(65y+)/PF (IIV3) 0.5mL Syr IM ONE (16:43)
== END 2025-02-20 16:43 | disposition home health service (06) ==
LOC: SUATTDRO → EDINP 12:59 → ED 12:59 → 3N 20:00